=== PATIENT | female | born 1960 | race Caucasian/White ===

== ENCOUNTER → 2017-11-11 01:00 | Outpatient (CLI) | payer OTHER, SELFPAY ==
--- NOTE | 2017-11-11 08:40 | DI.REPORT_ITS ---
SYMPTOM/DIAGNOSIS: [facility] BREAST FINDING N64.9, 6-MO F/U ABN MAMMO R92.8 DIAGNOSTIC MAMMOGRAM, CRANIOCAUDAD AND MEDIAL LATERAL IMAGES RIGHT BREAST: Mammograms were interpreted according to the usual protocol including computer analysis with CAD system, tomosynthesis and C view imaging. Craniocaudad and medial lateral images of the right breast were obtained today and reveal heterogeneous radiodensity in the subareolar portion of the right breast. Again noted is an asymmetric density in the medial subareolar portion of the breast. There are no suspicious calcifications. At ultrasound, no cyst or mass is identified. SUMMARY: No evidence of malignancy, Category 2, yearly screening mammography is recommended. Breast density category B MQSA ASSESSMENT OF FINDINGS: Negative with benign findings. Category 2. Patient will receive a letter notifying them of these results. BI-RADS category B. There are scattered areas of fibroglandular density.
== END ==
PROVIDERS: PCP Nurse Practitioner Family; Visit Provider Nurse Practitioner Family
DX: Z12.31 Encounter for screening mammogram for malignant neoplasm of breast (principal); R92.8 Other abnormal and inconclusive findings on diagnostic imaging of breast; N63.41 Unspecified lump in right breast, subareolar
CPT/HCPCS: 76642; 77061; 77065; G0279

== ENCOUNTER 2021-04-18 02:29 | Outpatient (CLI) | payer OTHER, SELFPAY | END 2021-04-18 02:49 | PROVIDERS: PCP Nurse Practitioner Family; Visit Provider Nurse Practitioner ==

== ENCOUNTER 2021-06-03 00:48 | Outpatient (CLI) | payer SELFPAY ==
--- NOTE | 2021-06-03 | DI.MAMMO_ITS ---
Exam(s) MAMMO SCREENING EXAM: MAMMO SCREENING CLINICAL HISTORY: SCREENING, Z12.39 TECHNIQUE: Mammograms were interpreted according to the usual protocol including computer analysis w [employer] CAD system, tomosynthesis and C-view imaging. COMPARISON: 2014 and 2017 FINDINGS: The breasts are composed of heterogeneously dense fibroglandular densities, Breast Density category C . No suspicious masses or suspicious microcalcifications are seen. Asymmetric tissue is again noted in the medial right breast. No skin thickening or abnormal axillary lymph nodes are seen. There has been no significant change from prior exams. IMPRESSION: BI-RADS Category 1, Negative mammogram. Yearly screening mammography is recommended. Breast Density Category C, heterogeneously Dense. The mammogram demonstrates the patient's breast tissue is dense. Dense breast tissue is very common a nd is not abnormal but dense breast tissue can make it harder to find cancer on a mammogram. Also, de nse breast tissue may increase breast cancer risk. This information about the result of the mammogram report was provided to the patient to raise their awareness. Use this report when you speak with the patient about their risks for breast cancer, which includes their family history. At that time, you may recommend additional screening tests (Ultrasound or MRI) as they might be useful based on their r isk. A negative radiographic report should not delay biopsy if a dominant or clinically suspicious mass is present. Up to ten percent of cancers are not identified on mammography. A negative report may reinforce clinical impression. Adenosis and dense breasts may obscure an underlying neoplasm. False positive reports average 6 to 10%.
== END 2021-06-03 01:08 ==
LOC: DI 00:49
PROVIDERS: PCP Nurse Practitioner Family; Visit Provider Nurse Practitioner
DX: Z12.31 Encounter for screening mammogram for malignant neoplasm of breast (principal)
CPT/HCPCS: 77063; 77067

== ENCOUNTER 2022-03-21 18:28 | Outpatient (REF) | payer OTHER, SELFPAY ==
[2022-03-21 19:20] LABS: Hemoglobin A1C 5.6 % (<5.7)
[2022-03-21 19:22] LABS: Calculated LDL 77 mg/dL (<100); Cholesterol 149 mg/dL (<200); HDL Cholesterol 42 mg/dL (40-60); Triglyceride 153 mg/dL (<150)
[2022-03-24 10:26] LABS: Hepatitis C Ab w Rflx HCV PCR Negative (Negative)
== END 2022-03-21 18:29 | disposition home or self-care (01) ==
LOC: NCHCN 18:28
PROVIDERS: PCP Nurse Practitioner Family; Visit Provider Family Medicine
DX: Z00.00 Encounter for general adult medical examination without abnormal findings (principal); Z13.1 Encounter for screening for diabetes mellitus; Z11.59 Encounter for screening for other viral diseases; Z13.220 Encounter for screening for lipoid disorders
CPT/HCPCS: 80061; 86803; 83036

== ENCOUNTER 2023-03-26 16:28 | Outpatient (REF) | payer BC, SELFPAY ==
[2023-03-26 18:37] LABS: Hemoglobin A1C 5.4 % (<5.7)
[2023-03-26 18:54] LABS: Anion Gap 8.1 mmol/L (3-11); BUN 9 mg/dL (7-18); CO2 27.9 mmol/L (21.0-32.0); CREATININE 0.8 mg/dL (0.55-1.02); Calcium 9.6 mg/dL (8.5-10.1); Chloride 104 mmol/L (98-107); Estimated GFR 83.26 (mL/min/1.73m2); Glucose 115 mg/dL (74-106); Sodium 140 mmol/L (136-145)
== END 2023-03-26 16:29 | disposition home or self-care (01) ==
LOC: NCHCN 16:28
PROVIDERS: PCP Nurse Practitioner Family; Visit Provider Nurse Practitioner Family
DX: R73.9 Hyperglycemia, unspecified (principal)
CPT/HCPCS: 80048; 83036

== ENCOUNTER → 2023-05-28 00:21 | Outpatient (CLI) | payer BC, SELFPAY ==
--- NOTE | 2023-05-28 | DI.DEXA_ITS ---
Exam(s) XR DEXA BONE DENSITY W/WO KILLIAN EXAM: XR DEXA BONE DENSITY W/WO KILLIAN CLINICAL HISTORY: At increased risk of osteoporosis, Z91.89 TECHNIQUE: COMPARISON: No exams were available for comparison FINDINGS: Lateral Spine Image: Unremarkable. No compression deformities identified. Left hip: Total T-Score: -1.7 Total Z-Score: -0.6 T- and Z-scores: Findings are consistent with osteopenia. There is no evidence of osteoporosis. Lumbar Spine: Total T-Score: -0.7 Total Z-Score: 0.9 T- and Z-scores: Within normal limits. IMPRESSION: No evidence of osteoporosis.
--- NOTE | 2023-05-28 15:24 | DI.CTLCSR_ITS ---
Exam(s) CT CHEST LUNG CANCER SCREEN EXAM: CT CHEST LUNG CANCER SCREEN CLINICAL HISTORY: Tobacco dependence, nicotine dependence, F17.201 TECHNIQUE: Imaging Protocol: Axial computed tomography images with coronal and sagittal reformatted images were created and reviewed COMPARISON: CT CHEST WITH CONTRAST from 06/01/2009 CT ABD PELVIS WITH CONTRAST from 06/01/2015 CT CHEST WITH CONTRAST from 07/09/2015 CR XR DEXA BONE DENSITY W/WO KILLIAN from 05/28/2023 FINDINGS: Tracheobronchial tree: Patent where visualized. Pulmonary parenchyma: Emphysematous changes are present in the lungs. Dependent atelectatic changes are seen in the lung bases. No focal consolidating infiltrates are present. Lung Nodules: None. Mediastinum and Rosy: No dominant adenopathy or fluid collection. The esophagus is unremarkable. Thyroid gland: Unremarkable. Lymph nodes: Unremarkable. Pleura: No effusion or pneumothorax. Heart: The heart is not dilated. Coronary artery calcifications are present. No pericardial effusion . Aorta: Thoracic aorta non-dilated.Atherosclerotic calcification is present. Upper abdomen: Unremarkable. Soft Tissues: Unremarkable. Bones: There is diffuse mottling of the bones suspicious for metastatic disease. IMPRESSION: 1. No pulmonary nodules. 2. Diffuse sclerotic modeling of the bones suspicious for metastatic disease. Bone scan should be obt ained for further evaluation. 3. Emphysematous changes in the lungs. 4. Findings were discussed with NEYDA Casanova at 4:30 p.m. on 05/28/2023. Lung RADS Cat 1S - Negative: No nodules and definitely benign nodules. Other: Clinically Significant or Potentially Clinically Significant Findings (non lung cancer) Lung-RADS 1.0 CATEGORIES: Category 0 - Prior chest CT exam(s) being located for comparison. Category 1 - Annual screening in 12 months. No nodules or definitely benign nodules. Category 2 - Annual screening in 12 months. Benign appearance. Nodules with low likelihood of becomin g active cancer. Category 3 - 6-month follow-up. Probably benign. Short-term follow-up suggested. Nodules with low lik elihood of becoming active cancer. Category 4A - 3-month follow-up and CT/PET if >8 mm in size. Suspicious finding. Findings which requi re additional testing. Category 4B - Findings which require additional testing and tissue sampling. Suspicious finding. Category 4X - Category 3 or 4 nodules with additional features or imaging findings that increases the suspicion of malignancy. Modifier S- Potentially clinically significant finding. (Non lung cancer) Unexpected findings RADIATION DOSE DELIVERED: 66.7mGy.cm Total DLP 66.7mGy.cmTotal DLP DATA REPOSITORY: All CT scans at this facility are submitted to the National Radiology Data Registry (NRDR) Dose Index Registry (DIR) with the [employer] (A[employer]). RADIATION OPTIMIZATION: All CT scans at this facility use at least one of these dose optimization te chniques: automated exposure control; mA and/or kV adjustment per patient size (includes targeted exa ms where dose is matched to clinical indication); or iterative reconstruction.
== END ==
PROVIDERS: PCP Nurse Practitioner Family; Visit Provider Nurse Practitioner Family
DX: Z13.820 Encounter for screening for osteoporosis (principal); Z12.2 Encounter for screening for malignant neoplasm of respiratory organs; F17.210 Nicotine dependence, cigarettes, uncomplicated; R91.8 Other nonspecific abnormal finding of lung field
CPT/HCPCS: 71271; 77080; J0665

== ENCOUNTER → 2023-06-17 02:49 | Outpatient (CLI) | payer BC, SELFPAY ==
--- NOTE | 2023-06-17 | DI.NM_ITS ---
Exam(s) NM BONE SCAN WHOLE BODY GRP EXAM: NM BONE SCAN WHOLE BODY GRP CLINICAL HISTORY: R93.89 ABN findings on DI other specified body structure,F17.211 Nicotine. TECHNIQUE: Injected Dose: 25.5 mCi Tc-99m MDP Delayed Images: 2-3 hours. COMPARISON: CT CT CHEST LUNG CANCER SCREEN from 05/28/2023 FINDINGS: There is normal skeletal in the entire skeleton. No obvious abnormal focal areas of radiopharmaceuti leoncio uptake. IMPRESSION: 1. No abnormal to suggest metastatic. 2. In reviewing the abnormal appearance of the bones on the recent chest CT scan of 05/28/2023, if t here is a suspicion for multiple myeloma then MRI of the spinal column would be recommended. Reason for this is that myeloma can often exhibit false negative study on nuclear medicine imaging DATA REPOSITORY:
== END ==
PROVIDERS: PCP Nurse Practitioner Family; Visit Provider Nurse Practitioner Family
DX: R93.89 Abnormal findings on diagnostic imaging of other specified body structures (principal); F17.211 Nicotine dependence, cigarettes, in remission
CPT/HCPCS: 78306

== ENCOUNTER → 2023-06-23 02:52 | Outpatient (CLI) | payer BC, SELFPAY ==
--- NOTE | 2023-06-23 | DI.MAMMO_ITS ---
Exam(s) MAMMO SCREENING EXAM: MAMMO SCREENING CLINICAL HISTORY: SCREENING MAMMO FOR BREAST CANCER Z12.31. TECHNIQUE: Bilateral full field digital CC and MLO mammographic images were obtained with 3D tomosyn thesis and utilizing computer aided detection (CAD). COMPARISON: Prior mammograms were reviewed. FINDINGS: There has been no significant change in the appearance and distribution of the fibroglandular tissue. There are no CAD designations. There are no new spiculated masses nor malignant appearing microcalcification groups. There is no significant architectural distortion nor skin thickening-retraction. IMPRESSION: No radiographic evidence of malignancy. BI-RADS Category 1 - Negative Breast Density - Category C - Heterogeneously dense Breast density Category C or D implies that the patient has dense breast tissue. Dense breast tissue can make it harder to find cancer on a mammogram. Dense breast tissue is also associated with an incr eased risk of breast cancer. This information about the result of the mammogram report was provided to the patient to raise their awareness. Use this report when you speak with the patient about their risks for breast cancer, which includes their family history. At that time, you may recommend additional screening tests (Ultrasoun d or MRI) as these tests may add significant information. A negative radiographic report should not delay biopsy if a dominant or clinically suspicious mass is present. Up to ten percent of cancers are not identified on mammography. A negative report may reinforce clinical impression. Adenosis and dense breasts may obscure an underlying neoplasm. False positive reports average 6 to 10%. Patient will receive a letter notifying them of these results.
== END ==
PROVIDERS: PCP Nurse Practitioner Family; Visit Provider Nurse Practitioner Family
DX: Z12.31 Encounter for screening mammogram for malignant neoplasm of breast (principal)
CPT/HCPCS: 77063; 77067

== ENCOUNTER 2023-06-24 05:10 | Outpatient (CLI) | payer BC, SELFPAY ==
[2023-06-25 10:09] LABS: Kappa Free Light Chain 1.87 mg/dL (0.33-1.94); Lambda Free Light Chain 2.51 mg/dL (0.57-2.63)
[2023-06-25 15:16] LABS: Immunotyping, Serum (See Note); Total Protein 6.6 g/dL (6.3-8.2)
== END 2023-06-24 05:11 | disposition home or self-care (01) ==
LOC: LBO 05:10
PROVIDERS: PCP Nurse Practitioner Family; Visit Provider Nurse Practitioner Family
DX: R73.9 Hyperglycemia, unspecified (principal)
CPT/HCPCS: 36415; 83883; 84155; 84165; 86320

== ENCOUNTER 2023-07-29 19:42 | Outpatient (REF) | payer BC, SELFPAY ==
[2023-07-29 20:33] LABS: ALT 24 U/L (14-59); AST 19 U/L (15-37); Albumin 3.6 g/dL (3.4-5.0); Alkaline Phosphatase 97 U/L (46-116); Anion Gap 10.7 mmol/L (3-11); BUN 8 mg/dL (7-18); Bilirubin, Total 0.3 mg/dL (0.2-1.0); CO2 24.3 mmol/L (21.0-32.0); CREATININE 0.8 mg/dL (0.55-1.02); Chloride 105 mmol/L (98-107); Estimated GFR 82.74 (mL/min/1.73m2); Glucose 104 mg/dL (74-106); Potassium 3.9 mmol/L (3.5-5.1); Sodium 140 mmol/L (136-145); Total Protein 6.9 g/dL (6.4-8.2)
== END 2023-07-29 19:43 | disposition home or self-care (01) ==
LOC: NCHCN 19:42
PROVIDERS: PCP Nurse Practitioner Family; Visit Provider Nurse Practitioner Family
DX: R93.89 Abnormal findings on diagnostic imaging of other specified body structures (principal)
CPT/HCPCS: 80053

== ENCOUNTER 2023-08-24 07:33 | Day surgery (SDC) | payer BC, SELFPAY ==
--- NOTE | 2023-08-23 13:56 | W.PM.DSUDISC ---
Date of service: 08/24/23 Time of Service: 10:51 Discharge Plan Disposition Patient Disposition: Home Condition: Good Discharge Details Reason For Visit: screening colonoscopy Attending Provider: Oj Higgins Primary Care Provider: KELLEY GALVAN Home Meds and New Rx's Prescriptions: Continued ondansetron HCl 8 mg tablet 8 mg PO Q12H PRN (Reason: nausea and vomiting) Qty: 4 0RF aspirin 81 mg tablet,chewable 81 mg PO DAILY acetaminophen 325 MG tablet 650 mg PO .Q5H PRN Discharge Instructions Instructions: Colorectal Polyps (GEN) Additional Instructions: Kayla, we were able to complete your colonoscopy today without much difficulty. I found and removed a medium size polyp. There were 2 other areas that were quite small, and I suspect might be early polyps. I removed these as well. It would take about a week or 2 for me to get the results of all the pathology report, once I have that information, I will be in touch with any other recommendations. In the meantime, if you have any questions at all, please do not hesitate to call or ask at any time. 1. If tolerated, consume a soft, low fiber diet for 1-2 days. 2[address] Do not drive, drink alcohol, operate machinery, make critical decisions, or do activities that require coordination or balance for 24 hours. 3. Because air was put into your colon during the procedure, expelling air from your rectum (passing gas or farting) is normal. 4. You may not have a bowel movement for 1-3 days because of the colonoscopy prep. This is normal. 5. Go directly to the emergency room if you notice any of the following: Develop chills (warm to touch), or if you have a thermometer and your temperature is above 101 Difficulty breathing or difficultly swallowing Persistent vomiting Severe abdominal pain, other than gas cramps Severe chest pain Black, tarry stools Any bleeding ? exceeding one tablespoon 6. Call your physician if the site where your intravenous was started becomes red, swollen, painful, and warm to touch. 7. Your physician has reviewed your pre-procedure medications. Please continue to take those medications as previously ordered. You will be given specific information/education regarding any changes to your medications before leaving. Activity:: Activity as Tolerated Diet:: As Tolerated Discharge Orders Discharge Orders: Discharge Order (Routine); Ordered 08/23/23 Ordered By: Oj Higgins DS: Diagnosis Discharge Diagnosis (1) Encounter for screening colonoscopy: Status: Acute Asessment and Plan: Follow-up on polypectomy results
--- NOTE | 2023-08-23 13:57 | COLE_ITS ---
Date of service: 08/24/23 Time of Service: 10:52 Colonoscopy Report Date of procedure: 08/24/23 Pre-op diagnosis general: screening colonoscopy Post-op diagnosis procedure note: other (Colon polyps) Procedure: colonoscopy with polypectomy Surgeon: Oj Higgins Anesthesia Type: General:No Airway Estimated blood loss (mL): 5 Pathology: other (0.25 cm polyps at 35 cm x 2, 0.5 cm polyp at 25 cm) Complications: None Disposition: same day Indications: Ashley is a 63 year old woman who needs her next screening colonoscopy Prep: Miralax/Dulcolax Procedure Start Time: 10:07 Procedure End Time: 10:38 Retraction Time: 10 Findings: 0.25 cm polyps at 35 cm x 2, 0.5 cm polyp at 25 cm Procedure Description: After the induction of anesthesia, and with the patient in left lateral decubitus position, I began by performing an external anorectal exam.? Perineum and skin were normal, as was the anal verge.?? Next, I performed a digital rectal exam.? I did not appreciate any abnormal findings.? Next, I advanced a colonoscope into the rectal vault.? I performed retroflexion.? This appeared normal.? Using insufflation, I then advanced the colonoscope beyond the rectal folds and into the sigmoid colon before advancing towards the cecum.? Sigmoid colon was a little difficult to navigate, and did require repositioning, but with some gentle abdominal pressure, we are able to advance through this proceeding to the right side.? The scope was noted to be in the cecum by identification of the ileocecal valve.? I then began withdrawing the colonoscope using repeated irrigation as necessary for full evaluation of the colonic mucosa. Around 35 cm from the anus were 2 areas that appeared slightly polypoid. Narrowband imaging was used to assist with analysis. These were removed with cold forceps without any issue. Around 25 cm from the anus was more obvious polyp. It was about 0.5 cm, slightly pedunculated. This was removed with cold forceps as well. Once the scope was withdrawn to the level of the rectum, great care was taken to examine portions of the rectal folds.? Finally, the scope was withdrawn and the patient was brought to the same-day surgery recovery unit as the anesthetic wore off. ?The findings and instructions were shared with the patient prior to discharge. [place] Bowel Prep [place] Bowel Prep Right Colon: 2 Left Colon: 2 Transverse Colon: 3 Total Score: 7
[2023-08-24 07:45] VITALS: BP 113/61; PULSE 83; RESP 16; TEMP 36.2; O2SAT 97
[2023-08-24] MEDS: Lactated Ringers 1,000 ML 80 ML IV (08:03)
--- NOTE | 2023-08-24 08:52 | W.ANESPRE ---
General Info Date of Service Date Performed: 08/24/23 Height: 5 ft 3.5 in Weight: 55.5 kg Body Mass Index (BMI): 21.3 Surgical Procedure: Operation Date: 08/24/23 09:05 Proposed Procedure Side Surgeon kun Higgins MD Meds Allergies and Home Medications Allergies Allergy/AdvReac Type Severity Reaction Status Date / Time ibuprofen Allergy Intermediate Hives Verified 08/24/23 07:48 NSAIDS (Non-Steroidal Allergy Intermediate Hives Verified 08/24/23 07:48 Anti-Inflamma oxycodone HCl [From Percocet] AdvReac Intermediate Nausea Verified 08/24/23 07:48 ciprofloxacin [From Cipro] AdvReac Mild itching Verified 08/24/23 07:48 and burning with IV Infusion morphine AdvReac Mild Nausea Verified 08/24/23 07:48 Home Medication Medication Instructions Recorded acetaminophen 325 mg tablet 650 mg PO .Q5H PRN 07/09/15 aspirin 81 mg chewable tablet 81 mg PO DAILY 06/19/23 ondansetron HCl 8 mg tablet 8 mg PO Q12H PRN nausea and 08/06/23 vomiting #4 tabs Current Visit Medications: Current Medications Generic Name Dose Route Start Last Admin Trade Name Freq PRN Reason Stop Dose Admin Hyoscyamine Sulfate 0.125 mg 08/23/23 13:58 Hyoscyamine 0.125 Mg Sl/Oral/Chew SL 09/22/23 13:57 DIRECTED PRN Ringer's Solution 1,000 mls @ 80 mls/hr 08/24/23 06:00 08/24/23 08:03 IV 08/24/23 23:59 80 mls/hr INFUSION JENNIFER Administration IV Miscellaneous Supplies 1 each 08/24/23 06:00 Iv Access IV 08/24/23 23:59 DIRECTED JENNIFER Ondansetron HCl 4 mg 08/23/23 13:58 Ondansetron 4 Mg/2 Ml Vial IVP 09/22/23 13:57 Q4H PRN PRN Nausea / Vomiting Sodium Chloride 0 ml 08/24/23 06:00 Normal Saline Flush 10 Ml Syr IV 08/24/23 23:59 PRN PRN Sodium Chloride 0 ml 08/24/23 06:00 Normal Saline 10 Ml Vial IJ 08/24/23 23:59 DIRECTED PRN Sterile Water 0 ml 08/24/23 06:00 Water,Injection,Sterile 10 Ml Vial IJ 08/24/23 23:59 DIRECTED PRN PFSH Active Problems Active Problems: Problem Status Onset Code Encounter for screening colonoscopy Z12.11 Adenomatous colon polyp D12.6 H/O surgical procedure 02/01/14 Z98.89 Incisional hernia 02/01/14 K43.2 Medical History Medical History Hyperglycemia Colonic polyp Abnormal breast finding Thoracic back pain Tobacco use COPD (chronic obstructive pulmonary disease) Incisional hernia Surgical menopause Adenomatous polyp Shoulder pain Pleuritic chest pain Thoracic outlet syndrome Rib pain on right side Surgical History Surgical History rib resection r/t to thoracic outlet syndrome nerve pain relief Abdominal hysterectomy Hernia Repair, Incisional Cholecystectomy Appendectomy Aorto-femoral bypass 2012 Tobacco Smoking/Tobacco Use Status: Former Tobacco Use Alcohol Alcohol Intake: never Substance Use Substance use: Never Substance use type: does not use Vital Signs and Lab Results Vital Signs Most Recent Vital Signs in EMR: Most Recent Vital Signs Temp Pulse Resp BP Pulse Ox 36.2 C L 83 16 113/61 97 08/24/23 07:45 08/24/23 07:45 08/24/23 07:45 08/24/23 07:45 08/24/23 07:45 Lab Results Blood Type / Crossmatch: No Data to Display Complete Blood Count: No Data to Display Complete Metabolic Panel: Sodium 140 mmol/L (136-145) 07/29/23 13:45 Potassium 3.9 mmol/L (3.5-5.1) 07/29/23 13:45 Chloride 105 mmol/L (98-107) 07/29/23 13:45 Carbon Dioxide 24.3 mmol/L (21.0-32.0) 07/29/23 13:45 BUN 8 mg/dL (7-18) 07/29/23 13:45 Creatinine 0.8 mg/dL (0.55-1.02) 07/29/23 13:45 Est GFR (CKD-EPI 2020) 82.74 (mL/min/1.73m2) 07/29/23 13:45 Calcium 9.0 mg/dL (8.5-10.1) 07/29/23 13:45 Albumin 3.6 g/dL (3.4-5.0) 07/29/23 13:45 Glucose 104 mg/dL (74-106) 07/29/23 13:45 Liver Function Panel: Alanine Aminotransferase (ALT/SGPT) 24 U/L (14-59) 07/29/23 13:45 Aspartate Amino Transf (AST/SGOT) 19 U/L (15-37) 07/29/23 13:45 Coagulation Panel: No Data to Display Cardiac Panel: No Data to Display Arterial Blood Gas: No Data to Display Venous Blood Gas: No Data to Display Pancreas Panel: No Data to Display Thyroid Panel: No Data to Display Infectious Disease: No Data to Display Blood Cultures: No Data to Display Toxicology Panel: No Data to Display Imaging and Studies Imaging and Studies Study information below may be from another EMR and interpreted by another provider. Please see original notes in EMR for more complete details. Stress Test Summary: Patient Name: JT GRAYSON Unit #: [id number] Loc: Ordering Provider: COLLEEN ALFARO Status: [facility] Primary Care Provider: UNKNOWN, UNKNOWN Date of Exam: 10/11/12 Sex: F : 1960 Age: 52 Exam(s): [id number] NM:MPI Resting & Stress GRP Department of Nuclear Medicine SPECT Nuclear Cardiology Report CLINICAL DIAGNOSIS: preop, hx of smoking, chest palpitations, atherosclerosis of mcgrath arteries of the extremities with intermittent claudication Exercise: Lexiscan: x Dose: 0.4mgm REST: 11.8 mCi 99e-Ti-Jhuouvdiw IV was administered at 9:00 AM on 10/11/12 in accordance with established rest protocol procedures. Images of the heart were obtained with SPECT reconstruction. STRESS: 37.1 mCi 77y-Xj-Hqjrjnani IV was administered at 10:40 AM on 10/11/12 in accordance with established stress protocol procedures. Images of the heart were obtained with SPECT reconstruction. INTERPRETATION: View Normal Transient Mixed Fixed Perfusion Defect Defect Defect Short Swanton x Vertical Long Swanton x Horizontal Long Swanton x EJECTION FRACTION: 67% GATED WALL MOTION: CONCLUSION: Negative ischemia. Normal LV function. TECH: CC: COLLEEN ALFARO Dictated By: BART COON 400 <Electronically signed by EMILY VILLALTA MD> 10/15/12 1252 <Electronically signed by MURTAZA COON > 10/25/12 0885 Transcribed By: THOM FAUST 10/12/12 5606 Technologist: This is privileged, confidential information intended only for the provider named. Any use or distribution by any person other than this provider is strictly prohibited. If you receive this report in error, please notify us immediately at [phone] and return the original report to us at the address above. Thank-you. Anesthesia Assessment and Plan Anesthesia History Personal History: No History of Anesthesia Complications Family History: No Family History of Anesthesia Complications Exercise Tolerance Exercise Tolerance: Metabolic Equivalents>4 Pertinent Negatives Pertinent Negatives: No Symptoms of GERD Cardiac & Pulmonary Exam Cardiac Exam: Normal S1/S2 Heart Sounds Pulmonary Exam: Clear Bilateral Breath Sounds Implantable Cardiac Device Does patient have a Pacemaker or an ICD?: No Airway Exam Known Difficult Airway: No Mallampati Class: 2 Mouth Opening: Normal (> 3cm) Thyromental Distance: Greater than 3 cm Neck Range of Motion: Full ROM Neck Circumference: Normal Teeth Condition: Removable Dentures/Plates Upper and Removable Dentures/Plates Lower ASA Classification ASA Score: ASA 3 Emergency Case?: No NPO Status NPO Status: NPO Clears >2 hours, Solids >8 hours Anesthesia Plan Resuscitation Status: Full Code Anesthesia Technique: General Anesthesia Airway Planned: Natural Airway Monitors Used: Standard Monitors
[2023-08-24 09:17] VITALS: BMI 21.3
--- NOTE | 2023-08-24 10:34 | BOWEL_PTH ---
PATIENT: Ashley Kee LOC: [facility] U#:[id number] AGE/SX: 63/F ROOM: RE08/24/[address]: Oj Higgins MD : 1960 BED: DIS: 08/24/2023 SPEC #: [id number] RECD: 08/24/23 13:07 STATUS: LATANYA RE #: [id number] RIMMA: 08/24/23 10:[address]: Oj Higgins DEPT: Surgical Specimen RECD BY: Caridad Horta ENTERED: 08/24/23 13:09 SP TYPE: Bowel OTHR DR: KELLEY GALVAN, PANTS BUSHELER Tissues: 1 - BIOPSY BOWEL 2 - BIOPSY BOWEL Procedures: GROSS AND MICRO LEVEL 4 Comments: [id number]
[2023-08-24 10:46] VITALS: BP 135/62; PULSE 65; RESP 22; TEMP 36.3; O2SAT 95
[2023-08-24 11:13] VITALS: BP 131/63; PULSE 62; RESP 16; TEMP 36.3; O2SAT 97
--- NOTE | 2023-08-24 11:13 | W.ANESPOSTOP ---
Postoperative Evaluation Date, Time and Location Date Performed: 08/24/23 Time Performed: 11:13 Patient Location: Day Surgery Unit Vital Signs Most Recent Imported Vital Signs: Most Recent Vital Signs Temp Pulse Resp BP Pulse Ox 36.3 C L 65 22 135/62 95 08/24/23 10:46 08/24/23 10:46 08/24/23 10:46 08/24/23 10:46 08/24/23 10:46 Pain Score Most Recent Pain Score: Most Recent Pain Score Pain Level 0 08/24/23 10:46 Assessment Mental Status: Awake (Alert & Oriented to Patient Baseline) Airway and Respiratory Function: Patent airway with normal (patient baseline) respiratory exam Cardiovascular Function: Hemodynamically Stable Hydration Status: Adequately Hydrated Nausea & Vomiting: No Nausea or Vomiting Pain: Pt. Denies Any Pain Peripheral Nerve Block: Patient did not receive a nerve block
== END 2023-08-24 11:28 | disposition home or self-care (01) ==
LOC: SUR 07:33
PROVIDERS: PCP Nurse Practitioner Family; Visit Provider Surgery
PROC: 0DJD8ZZ Inspection of Lower Intestinal Tract, Via Natural or Artificial Opening Endoscopic (ICD-10-PCS; CPT 45378; principal; 2023-08-24 09:00)
DX: Z12.11 Encounter for screening for malignant neoplasm of colon (principal); D12.5 Benign neoplasm of sigmoid colon
CPT/HCPCS: 45380; 88305; J2704

== ENCOUNTER 2023-08-25 13:09 | Outpatient (REF) | payer BC, SELFPAY ==
[2023-08-25 15:32] LABS: Abs Immature Grans 0.03 10^3/uL (0.0-0.06); Absolute Basophil Count 0.03 10^3/uL (0.0-0.2); Absolute Eosinophil Count 0.03 10^3/uL (0.0-0.7); Absolute Monocyte Count 0.44 10^3/uL (0.1-0.8); Absolute Neutrophil Count 5.76 10^3/uL (1.2-6.7); Basophils % 0.3 %; Eosinophils % 0.3 %; HCT 44.4 % (36.0-46.0); HGB 14.9 g/dL (11.2-15.7); Immature Grans % 0.3 %; Lymphocytes % 35.8 %; MCH 30.2 pg (27.0-33.0); MCHC 33.6 % (32.0-36.0); MCV 90 fL (80-95); MPV 8.9 fL (8.0-11.0); Monocytes % 4.5 %; Neutrophils % 58.8 %; Platelet Count 259 10^3/uL (130-400); RBC 4.93 10^6/uL (3.93-5.22); RDW 13.2 % (11.7-14.6); RDW-SD 42.9 fL; WBC 9.79 10^3/uL (4.4-10.8)
== END 2023-08-25 13:10 | disposition home or self-care (01) ==
LOC: NCHCN 13:09
PROVIDERS: PCP Nurse Practitioner Family; Visit Provider Nurse Practitioner Family
DX: Z00.00 Encounter for general adult medical examination without abnormal findings (principal)
CPT/HCPCS: 85025

== ENCOUNTER 2024-02-29 15:41 | Outpatient (CLI) | payer BC, SELFPAY ==
--- NOTE | 2024-02-29 15:30 | DI.RAD_ITS ---
Exam(s) XR CHEST 2V PA LATERAL EXAM: XR CHEST 2V PA LATERAL CLINICAL HISTORY: R05.3 Cough persistent, PT s/p AortoBiFem bypass graft requiring post op TECHNIQUE: 2D digital imaging was performed of the chest. Two images were obtained. PA and lateral views were obtained. COMPARISON: CT CT CHEST/ABD/PEL W from 08/18/2023 FINDINGS: MEDIASTINUM: Normal. HEART: Normal. PULMONARY VASCULATURE: Normal. LUNGS: There is an infiltrate in the left lower lobe. The right lung is clear. PLEURAL SPACE: There is a small to moderate size left pleural effusion. No right pleural effusion. No pneumothorax. BONE:There are displaced fractures involving the posterior lateral aspects of the left 7th and 8th ri bs. There has been a prior resection of the distal aspect of the right clavicle. OTHER FINDINGS:There are surgical clips seen in the right axilla. Skin kim are seen in the left upper abdomen. IMPRESSION: 1. Left basilar infiltrate/atelectasis and left pleural effusion. 2. Left 7th and 8th rib fractures. 3. No pneumothorax. DATA REPOSITORY: RADIATION DOSE DELIVERED:
--- OUTSIDE RECORDS SUMMARY | 2024-02-29 15:47 | XMS_ITS | Encounter Summary ---
Author Organization [facility] Address [address] [place] [id number] Care Team Providers Care Numerical Control Lathe Operator Name Role Phone Faizan Bhakta MD Primary Care Provider Unav ailable Encounter Details Date Type Department Care Team (Late st Contact Info) Description 11/08/2015 Results Only Vascular Surgery and Endovascular Therapy - [address] [id number] Tony Garza MD [address] [place] [address], [address] [place] [phone] Social History Tobacco Use Types Packs/Day Years Used Date Smoking Tobacco: Former Cigarettes 0.2 20 0 10/30/1992 - 10/30/2012 Comments:quit date was r 2012 Alcohol Use Standard Drinks/Week Comments Yes 0 (1 standard drink = 0.6 oz pur e alcohol) Once or twice a year Comments Unknown Sex and Gender Information Value Date Recorded Sex Assigned at Not on file Legal Sex Female 18:15 EST Gender Identity Not on file Sexual Orientation Not on file documented as of this encounter Functional Status * Because of a physical, mental, or emotional condition, does this person have difficulty doing errands alone such as visiting a doctor's office or shopping? Answer Date of Assessment Author No 11/08/2015 13:33 EDT documented as of this encounter Mental Status * Because of a physical, mental, or emotional condition, does this person have serious difficulty concentrating, remembering, or making decisions? Answer Entry Date Author No 11/08/2015 13:33 EDT Eduar Ho, RN documented in this encounter Plan of Treatment Not on file documented as of this encounter Procedures Procedure Name Priority Date/Time Associated Diagnosis Comments TYPE AND SCREEN Routine 11/08/2015 15:05 EDT documented in this encounter Results * TYPE AND SCREEN (11/08/2015 15:05 EDT) Antibody Screen Negative [facility] Specimen Expires: 11/22/2015 @ 23:59 [facility] ABO B [facility] Rh Factor Negative [facility] 11/08/2015 15:0 5 EDT us Tony Garza MD BLOOD BANK TESTS Final Re sult [facility] [address] [place] [address] documented in this encounter Visit Diagnoses Not on filedocumented in this encounter Care Teams Numerical Control Lathe Operator Relationship Specialty Start Date End Date Faizan Bhakta MD PCP - General 08/18/13 documented as of this encounter
--- OUTSIDE RECORDS SUMMARY | 2024-02-29 15:47 | XMS_ITS | Encounter Summary ---
Author Organization [facility] Address [address] [place] [address] Care Team Providers Care Mechanical Designer Name Role Phone Faizan Bhakta MD Primary Care Provider Unav ailable Encounter Details Date Type Department Care Team (Late st Contact Info) Description 09/11/2015 13:56 EDT - 09/11/2015 23:59 EDT Hospital Encounter [facility] [address] [place] [address] Cesar Kingston MD [address] [place] [id number] Discharge Disposition: Home or Self Care Social History Tobacco Use Types Packs/Day Years Used Date Smoking Tobacco: Former Cigarettes 0.2 20 0 10/30/1992 - 10/30/2012 Comments:Smoking 4-5 cigaret vicky daily Alcohol Use Standard Drinks/Week Comments Yes 0 (1 standard drink = 0.6 oz pur e alcohol) Once or twice a year Comments Unknown Sex and Gender Information Value Date Recorded Sex Assigned at Not on file Legal Sex Female 18:15 EST Gender Identity Not on file Sexual Orientation Not on file documented as of this encounter Mental Status * Because of a physical, mental, or emotional condition, do you have serious difficulty concentrating, remembering, or making decisions? (5 years old or older) Answer Entry Date Author Yes 11/02/2012 4:00 EDT Papito Ho RN documented in this encounter Discharge Diagnoses Diagnosis Z01.89 Encounter for other specified special examinations-Z01.89[ICD-10-CM] documented in this encounter Medications at Time of Discharge acetaminophen (TYLENOL) 500 mg tablet Take 1-2 Tabs by mouth every 6 hours as needed for Pain. 11/05/2012 aspirin 81 mg EC tablet Take 1 Tab by mouth daily. 30 Tab 0 10/18/2012 documented as of this encounter Discharge Disposition Disposition Code Departure Means Destination Home or Self [facility] documented in this encounter Plan of Treatment Not on file documented as of this encounter Visit Diagnoses Not on filedocumented in this encounter Care Teams Mechanical Designer Relationship Specialty Start Date End Date Faizan Bhakta MD PCP - General 08/18/13 documented as of this encounter
--- OUTSIDE RECORDS SUMMARY | 2024-02-29 15:47 | XMS_ITS | Encounter Summary ---
Author Organization [facility] Address [address] [place] [address] Care Team Providers Care Log Sorter Name Role Phone Faizan Bhakta MD Primary Care Provider Unav ailable Encounter Details Date Type Department Care Team (Late st Contact Info) Description 03/22/2022 Lab Requisition [facility] Pathology & Laboratory Medicine - [address] [address] Outr Resulting Lab, Provider Social History Tobacco Use Types Packs/Day Years Used Date Smoking Tobacco: Former Cigarettes 0.2 20 0 10/30/1992 - 10/30/2012 Comments:quit date was 2012 Alcohol Use Standard Drinks/Week Comments Yes 0 (1 standard drink = 0.6 oz pur e alcohol) Once or twice a year Comments Unknown Sex and Gender Information Value Date Recorded Sex Assigned at Not on file Legal Sex Female 18:15 EST Gender Identity Not on file Sexual Orientation Not on file documented as of this encounter Functional Status * Are you deaf or do you have serious difficulty hearing? Answer Date of Assessment Author No 11/19/2015 12:00 Estevan Cornejo, NEYDA * Are you blind or do you have serious difficulty seeing, even when wearing glasses? Answer Date of Assessment Author No 11/19/2015 12:00 Estevan Cornejo, RN * Do you have serious difficulty walking or climbing stairs? (5 years old or older) Answer Date of Assessment Author No 11/19/2015 12:00 Estevan Cornejo, RN * Do you have difficulty dressing or bathing? (5 years old or older) Answer Date of Assessment Author No 11/19/2015 12:00 Estevan Cornejo, NEYDA * Because of a physical, mental, or emotional condition, does this person have difficulty doing errands alone such as visiting a doctor's office or shopping? Answer Date of Assessment Author No 11/29/2015 13:29 Estevan Cornejo RN documented as of this encounter Mental Status * Because of a physical, mental, or emotional condition, does this person have serious difficulty concentrating, remembering, or making decisions? Answer Entry Date Author No 11/29/2015 13:29 Estevan Cornejo RN documented in this encounter Plan of Treatment Not on file documented as of this encounter Procedures Procedure Name Priority Date/Time Associated Diagnosis Comments HEPATITIS C AB W REFLEX TO HCV RNA BY PCR Routine 03/21/2022 17:10 EST documented in this encounter Results * HEPATITIS C AB W REFLEX TO HCV RNA BY PCR (03/21/2022 17:10 EST) Hep C Antibody Negative Negative 03/24/2022 10:21 EST [facility] Blood VENOUS BLOOD / Unknown 03/21/2022 17:10 EST 03/23/2022 17:09 EST us Provider Outr Resulting Lab CHEMISTRY & BLOOD GA S ORDERABLES Final Result [facility] [address] [place] [address] documented in this encounter Visit Diagnoses Not on filedocumented in this encounter Care Teams Log Sorter Relationship Specialty Start Date End Date Faizan Bhakta MD PCP - General 08/18/13 documented as of this encounter
--- OUTSIDE RECORDS SUMMARY | 2024-02-29 15:47 | XMS_ITS | Encounter Summary ---
Author Organization [facility] Address [address] [place] [address] Care Team Providers Care First Mate Name Role Phone Faizan Bhakta MD Primary Care Provider Unav ailable Encounter Details Date Type Department Care Team (Late st Contact Info) Description 06/24/2023 Lab Requisition [facility] Pathology & Laboratory Medicine - [address] [address] Outr Resulting Lab, Provider Social History Tobacco [...] Date of Assessment Author No 11/19/2015 12:00 EDT Estevan Narvaez RN * Because of a physical, mental, or [...] Answer Entry Date Author No 11/29/2015 13:29 EDEstevan Rey RN documented in this encounter Plan of Treatment Not on file documented as of this encounter Procedures Procedure Name Priority Date/Time Associated Diagnosis Comments SPEP WITH IMMUNOTYPING PERFORMABLE Today 06/24/2023 14:20 EDT SERUM FREE LIGHT CHAINS Routine 06/24/2023 14:20 EDT SPEP WITH IMMUNOTYPING Routine 06/24/2023 14:20 EDT PROTEIN, TOTAL Today 06/24/2023 14:20 EDT documented in this encounter Results * (ABNORMAL) SPEP WITH IMMUNOTYPING PERFORMABLE (06/24/2023 14:20 EDT) Albumin % 60.0 55.8 - 66.1 % 06/25/2023 15:11 [facility] Albumin g/dL 4.0 3.6 - 5.2 g/dL 06/25/2023 15:11 [facility] Alpha-1 % 5.4(H) 2.9 - 4.9 % 06/25/2023 15:11 [facility] Alpha-1 g/dL 0.40 0.15 - 0.40 g/dL 06/25/2023 15:11 [facility] Alpha-2 % 11.4 7.1 - 11.8 % 06/25/2023 15:11 [facility] Alpha-2 g/dL 0.80 0.50 - 1.00 g/dL 06/25/2023 15:11 [facility] Beta % 11.2 8.4 - 13.1 % 06/25/2023 15:11 [facility] Beta g/dL 0.70 0.60 - 1.20 g/dL 06/25/2023 15:11 [facility] Gamma % 12.0 11.1 - 18.8 % 06/25/2023 15:11 [facility] Gamma g/dL 0.80 0.60 - 1.60 g/dL 06/25/2023 15:11 [facility] SPEP Comment No apparent monoclonal protein seen on serum electrophoresis 06/25/2023 15:11 [facility] Comment:See scanned/suppleme ntary report. Immunotyping , Serum Current Interpretation: Negative for monoclonal immunoglobulins. Interpreted by: Jean Pierre Boudreaux MD 06/25/2023 1332 06/25/2023 15:11 [facility] Total Protein 6.6 6.3 - 8.2 g/dL 06/25/2023 15:11 [facility] Blood VENOUS BLOOD / Unknown 06/24/2023 14:20 EDT 06/24/2023 21:34 EDT us Provider Outr Resulting Lab CHEMISTRY & BLOOD GA S ORDERABLES Final Result Performing Organization Address [facility] de Phone Number [facility] [address] [place] [address] * PROTEIN, TOTAL (06/24/2023 14:20 EDT) Blood VENOUS BLOOD / Unknown 06/24/2023 14:20 EDT 06/24/2023 21:34 EDT us Provider Outr Resulting Lab CHEMISTRY & BLOOD GA S ORDERABLES Final Result Performing Organization Address [facility]/ZIP Co de Phone Number [facility] [address] [place] [address] * SERUM FREE LIGHT CHAINS (06/24/2023 14:20 EDT) [place] Free Lt Chain 1.87 0.33 - 1.94 mg/dL 06/25/2023 10:05 EDT [facility] Lambda Free Lt Chain 2.51 0.57 - 2.63 mg/dL 06/25/2023 10:05 EDT [facility] [place]/Lambda Ratio 0.75 0.26 - 1.65 06/25/2023 10:05 EDT [facility] Blood VENOUS BLOOD / Unknown 06/24/2023 14:20 EDT 06/24/2023 21:34 EDT us Provider Outr Resulting Lab CHEMISTRY & BLOOD GA S ORDERABLES Final Result [facility] [address] [place] [address] documented in this encounter Visit Diagnoses Not on filedocumented in this encounter Care Teams First Mate Relationship Specialty Start Date End Date Faizan Bhakta MD PCP - General 08/18/13 documented as of this encounter
--- OUTSIDE RECORDS SUMMARY | 2024-02-29 15:47 | XMS_ITS | Clinical Summary ---
Author Organization [facility] Address [address] [place] [address] Care Team Providers Care Manager Library Name Role Phone Faizan Bhakta MD Primary Care Provider Unav ailable Allergies Active Allergy Reactions Criticality Noted Date Comments Ciprofloxacin Itching 11/19/2015 Pt. Reports burning and itching with IV cipro- has not had po Ibuprofen Hives 07/15/2010 Morphine Nausea And Vomiting 07/15/2010 Oxycodone-Acetaminophen Nausea And Vomiting 10/2012 Hydrocodone-Acetaminophe n Nausea Only 10/04/2015 Medications aspirin 81 mg EC tablet Take 1 Tab by mouth daily. 30 Tab 0 3 Active Additional Information Patient taking differently:81 mg oralDAILY BEFORE BREAKFAST, Reported on 11/12/2015 acetaminophen (TYLENOL) 500 mg tablet Take 1-2 Tabs by mouth every 6 hours as needed for Pain. 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 11/19/2015 Tendinitis of right pectoralis major 03/12/2015 Axillary mass 03/12/2015 Status post aortobifemoral bypass surgery 2012 Needle phobia 10/18/2012 Atherosclerosis of [place] ar teries of extremity with intermittent claudication ([facility]) 09/09/2012 Overview (01/04/2015): ICD10 Update Auto Replacement Chronic right shoulder pain 04/27/2012 Surgical History Surgery Date Site/Laterality Comments HYSTERECTOMY CHOLECYSTECTOMY APPENDECTOMY SHOULDER SURGERY 11/14 AND 05/18 RIGHT SHOULDER ARTERIAL BYPASS SURGRY 11/01/12 Aortobifemoral bypass using a 14 x 7 mm Zeigler-Aiden graft (Dr. Garza) RIB RESECTION 11/19/2015 Right Right first rib resection (Dr. Garza) VASCULAR SURGERY 11/01/2012 aortobifemoral bypass VASCULAR SURGERY 11/19/2015 Right 1st rib resection Medical History Medical History Date Comments Wears glasses Back pain Joint pain Numbness Peripheral artery disease (HCC-CMS) Thoracic outlet syndrome Right s vianca. Medical management as of 10/18/12 Family History Medical History Relation Comments Heart Disease Father Heart Disease Paternal Grandfather AAA Neg Hx Stroke Neg Hx Relation Status Comments Father Paternal Grandfather Social History Tobacco Use Types Packs/Day Years [...] on file Sexual Orientation Not on file Obstetrics History Last Filed Vital Signs Vital Sign Reading Time Taken Comments Blood Pressure 94/62 11/29/2015 1328 EDT Left Pulse 80 11/29/2015 1328 EDT Temperature 37 ??C (98.6 ??F) 11/20/2015 0952 EDT Respiratory Rate 18 11/20/2015 0952 EDT Oxygen Saturation 94% 11/20/2015 0952 EDT Inhaled Oxygen Concentration - - Weight 56.7 kg (125 lb) 11/19/2015 1200 EDT stat ed Height 162.6 cm (5' 4.02) 11/19/2015 1200 EDT Body Mass Index 21.45 11/19/2015 1200 EDT Plan of Treatment Health Maintenance Due Date Last Done Comments Current Opioid Misuse Measurement 09/21/2014 Functional Assessment 09/21/2014 Opioid Informed Consent 09/21/2014 Pill Count 09/21/2014 Prescription Agreement 09/21/2014 Review Of Systems Adverse Effects 09/21/2014 Urine Drug Screen 09/21/2014 [place] Prescription Monitoring System 09/21/2014 COVID-19 Vaccine ( - 2023-25 season) 2023 RSV Immunization ( o r 60+ Years) (1 - 1-dose 75+ series) 06/22/2035 Hepatitis C Screen Completed 03/21/2022 Procedures Procedure Name Priority Date/Time Associated Diagnosis Comments HEPATITIS C AB W REFLEX TO HCV RNA BY PCR Routine 03/21/2022 17:10 EST from Last 3 Months or Most Recently Relevant to Health Maintenance Results * HEPATITIS C AB W REFLEX TO HCV RNA BY PCR (03/21/2022 17:10 EST) Hep C Antibody Negative Negative 03/24/2022 10:21 EST [facility] Blood VENOUS BLOOD / Unknown 03/21/2022 17:10 EST 03/23/2022 17:09 EST us Provider Outr Resulting Lab CHEMISTRY & BLOOD GA S ORDERABLES Final Result Performing Organization Address City/State/[facility] Co de Phone Number [facility] [address] [place] [address] from Last 3 Months or Most Recently Relevant to Health Maintenance Insurance [facility] Advance Directives For more information, please contact: [phone] Documents on File Type Date Recorded Patient Clerk Operator Expl anation Advance Directive 11/01/2012 5:42 11/01/19 16 [place] Advance Directive for Health Care * Full Code (Latest Code Status on File) Date Activated Date Inactivated Comments 11/19/2015 11:46 11/20/2015 13:03 Question Answer Comments Reason for decision includes: Full code consistent with overall plan of care Who participated in the discussion? Not Discusse d * Full Code Date Activated Date Inactivated Comments 11/19/2015 6:03 11/19/2015 11:46 Question Answer Comments Reason for decision includes: Full code consistent with overall plan of care Who participated in the discussion? Not Discusse d * Full Code Date Activated Date Inactivated Comments 11/01/2012 6:05 11/06/2012 12:54 Care Teams Manager Library Relationship Specialty Start Date End Date Faizan Bhakta MD PCP - General 08/18/13
--- OUTSIDE RECORDS SUMMARY | 2024-02-29 15:47 | XMS_ITS | Encounter Summary ---
Author Organization [facility] Address [address] [place] [id number] Care Team Providers Care [place] Former Machine Operator Name Role Phone Faizan Bhakta MD Primary Care Provider Unav ailable Reason for Visit * Reason Comments Pre-op Exam right first rib rese ction Encounter Details Date Type Department Care Team (Late st Contact Info) Description 11/08/2015 13:30 EDT Office Visit Vascular Surgery and Endovascular Therapy - [address] [id number] Tony Garza MD [address] [place] [address], [address] [place] [id number] Nurse Practitioner, [facility] Mp5 Vasc Surg 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) Discharge Disposition: Auto Discharge Social History Tobacco Use Types Packs/Day Years [...] on file documented as of this encounter Last Filed Vital Signs Vital Sign Reading Time Taken Comments Blood Pressure 98/50 11/08/2015 1333 EDT left a rm Pulse 80 11/08/2015 1331 EDT Temperature - - Respiratory Rate - - Oxygen Saturation - - Inhaled Oxygen Concentration - - Weight 56.7 kg (125 lb) 11/08/2015 1331 EDT Height 162.6 cm (5' 4) 11/08/2015 1331 EDT Body Mass Index 21.46 11/08/2015 1331 EDT documented in this encounter Functional Status * Because of [...] Date Author No 11/08/2015 13:33 EDT Eduar Ho RN documented in this encounter Discharge Diagnoses Diagnosis G54.0 Brachial plexus disorders-G54.0[ICD-10-CM] documented in this encounter Discharge Disposition Disposition Code Departure Means Destination Auto Discharge documented in this encounter H&P Notes * Monica Rashid NP - 11/08/2015 1416 EDT [facility] Vascular Surgery H & P Visit Note Date: 11/08/2015 Patient: Ashlye Kee Subjective: Ashley Kee is a 55 y.o. female who presents today for preoperative evaluation for a right first rib resection. Referred by: Faizan Bhakta History of Present Illness: Patient is a 55 y/o ambidextrous woman with a chief complaint of chronic right upper extremity pain. She is status post 2 prior right shoulder surgeries, in 2010 on the right scapula and then again in 2011 to remove bone spurs. She has undergone physical therapy which did not reduce her pain. She has had a fairly extensive work up including a nerve conduction study which was positive for neurogenic thoracic outlet syndrome. Patient is well-known to Dr. Garza, who performed an aortobifemoral bypass on her in 2012 for severe claudication with good effect. Patient stopped smoking in 2012. Patient is taking ASA but is not on a statin. She is using Tylenol for pain. Cardiac testing: NM Stress test 10/11/12 negative for ischemia, EF 67%, normal LV function. The patient's problem list, allergies, immunizations, and medications were documented, reviewed, and updated as follows: Patient Active Problem List Diagnosis ??? Chronic right shoulder pain ??? Atherosclerosis of [place] arteries of extremity with intermittent claudication ??? Needle phobia ??? Status post aortobifemoral bypass surgery ??? Tendinitis of right pectoralis major ??? Axillary mass Allergies: Ibuprofen; Morphine; Percocet; and Vicodin Immunizations: There is no immunization history on file for this patient. Medications: Current Outpatient Prescriptions Medication Sig Dispense Refill ??? acetaminophen (TYLENOL) 500 mg tablet Take 1-2 Tabs by mouth every 6 hours as needed for Pain. ??? aspirin 81 mg EC tablet Take 1 Tab by mouth daily. 30 Tab 0 No current facility-administered medications for this visit. History was documented as follows: PMH PSH Past Medical History Diagnosis Date ??? Wears glasses ??? Back pain ??? Joint pain ??? Numbness ??? Peripheral artery disease ??? Thoracic outlet syndrome Right side. Medical management as of 10/18/12 Past Surgical History Procedure Laterality Date ??? Hysterectomy ??? Cholecystectomy ??? Appendectomy ??? Shoulder surgery 11/14 AND 05/18 RIGHT SHOULDER ??? Arterial bypass surgry 11/01/12 Aortobifemoral bypass using a 14 x 7 mm [place] graft (Dr. Garza) ??? Vascular surgery 11/01/2012 aortobifemoral bypass Social History Family History Living situation: , lives at home, takes care of grandchildren, is not working outside the home. CAD yes AAA no History Substance Use Topics ??? Smoking status: Former Smoker -- 0.20 packs/day for 20 years Types: Cigarettes Quit date: 10/30/2012 ??? Smokeless tobacco: Not on file Comment: quit date was summer 2012 ??? Alcohol Use: Yes Comment: Once or twice a year STROKE no Medications (Not in a hospital admission) Allergies Allergies Allergen Reactions ??? Ibuprofen Hives ??? Morphine Nausea And Vomiting ??? Percocet [Oxycodone-Acetaminophen] Nausea And Vomiting ??? Vicodin [Hydrocodone-Acetaminophen] Nausea Only Vascular Review of Systems Constitutional: chronic right arm pain, no acute health changes, and Feels well today HEENT: Has post nasal drip. Cardiac: No active issues; no concerns Respiratory: No difficulty breathing Gastrointestinal: No active issues; no concerns, No constipation and No diarrhea Genitourinary/Renal: No active issues; no concerns and No urinary tract infections Musculoskeletal: RUE chronic pain from shoulder down the arm Neurologic: No headaches and No weakness Integumentary: No active issues; no concerns Allergy/Immunology: No active issues; no concerns ROS (other): PAIN MANAGEMENT: Patient states she has N/V with morphine Objective: Physical Examination: Vitals: BP 98/50 mmHg Pulse 80 Ht 162.6 cm (64) Wt 56.7 kg (125 lb) BMI 21.45 kg/m2. General: NAD, looks a little older than stated age. A/O x 3. Neck: Grossly normal Heart: RRR no murmur Lungs: right lower lobe with expiratory wheeze Abdomen: not examined Musculoskeletal: right arm with limited extension. Skin: clean, dry, intact over surgical area Neurologic: grossly intact Vascular Exam: 2+ palpable radial pulse bilaterally Arterial Exam Femoral Popliteal Dorsalis Pedis Posterior Tib Right Left DS = Doppler Signal 2+ = Expected palpable pulse 1+ = Diminished palpable pulse +DS = Doppler Signal present -DS = No Doppler Signal Venous Exam: n/a Labs drawn on: 11/08/15: Lytes bun cr cbc pending CXR from: Blood Bank if applicable: T and S Stress test if applicable: Negative NM Stress from 2012, patient now an ex - smoker Patient medication instructions if applicable: OK to continue ASA Assessment: Patient is a 55 y/o woman with chronic right arm pain x several years not responsive to P.T. Nerve conduction studies indicated neurogenic TOS. Ashley Kee is a good candidate for right first rib resection . Advantages and disadvantages of surgery were reviewed. The operative procedure was discussed including the risks of general anesthetic and medications and the potential risk of complications. There could also be the need for re-operation. Post-operative recovery was discussed, as well as the need for post surgery follow-up. The patient understands the risks; any and all questions were answered to the patient's satisfaction. Plan: NPO after MN Antibiotic prophylaxis with Cefazolin Patient states she gets nauseous with narcotics, may need Zofran. Will need INFORMIX DEVELOPER post op. Will need an arm sling prior to discharge. Likely will have Dermabond for incision closure, if not will need instructions to peel off dressing2 days after surgery. Expect a 1 or perhaps 2 night stay depending on pain control with transition to oral pain meds Submitted by: Monica Rashid NP documented in this encounter Plan of Treatment Not on file documented as of this encounter Results * PRE-OP BLOOD BANK DRAW (11/08/2015 14:27 EDT) Pre-Op Blood Bank Lab Draw SPECIMEN RECEIVED ACCEPTABLE 11/08/2015 15:44 EDT [facility] BLOOD SPECIMEN / Unknown 11/08/2015 14:27 EDT 11/08/2015 14:43 EDT us Monica Rashid REPLENISHMENT ANALYST BLOOD BANK TESTS Final Resul t Performing Organization Address [facility] Co de Phone Number [facility] [address] [place] [address] * ELECTROLYTES (11/08/2015 14:27 EDT) Sodium 141 136 - 145 mEq/L 11/08/2015 15:32 EDT [facility] Potassium 4.0 3.5 - 5.0 mEq/L 11/08/2015 15:32 EDT [facility] Chloride 103 96 - 110 mEq/L 11/08/2015 15:32 EDT [facility] CO2 24 24 - 32 mEq/L 11/08/2015 15:32 EDT [facility] Blood specimen (specimen) BLOOD SPECIMEN / Unknown 11/08/2015 14:27 EDT 11/08/2015 14:43 EDT us Monica Rashid REPLENISHMENT ANALYST CHEMISTRY & BLOOD GAS ORDERA BLES Final Result [facility] [address] [place] [address] * (ABNORMAL) BUN (11/08/2015 14:27 EDT) BUN 6(L) 10 - 26 mg/dl 11/08/2015 15:32 EDT [facility] Blood specimen (specimen) BLOOD SPECIMEN / Unknown 11/08/2015 14:27 EDT 11/08/2015 14:43 EDT Monica Rashid APRN CHEMISTRY & BLOOD GAS ORDERA BLES Final Result Performing Organization Address [facility] Co de Phone Number [facility] [address] [place] [address] * CREATININE (11/08/2015 14:27 EDT) Creatinine 0.74 0.52 - 1.04 mg/dl 11/08/2015 15:32 EDT [facility] GFR, Calculated 91 >60 ml/min/1.7 3m2 11/08/2015 15:32 EDT [facility] Comment: eGFR calculated using CKD-EPI equation for non Americans. Multiply eGFR by 1.16 for Americans. Blood specimen (specimen) BLOOD SPECIMEN / Unknown 11/08/2015 14:27 EDT 11/08/2015 14:43 EDT us Monica Rashid APRN CHEMISTRY & BLOOD GAS ORDERA BLES Final Result Performing Organization Address [facility] Co de Phone Number [facility] [address] [place] [address] * (ABNORMAL) HEMAGRAM (11/08/2015 14:27 EDT) WBC 7.85 4.0 - 12.4 K/cmm 11/08/2015 15:01 T [facility] RBC 5.08(H) 3.86 - 5.04 M/cmm 11/08/2015 15:01 [facility] Hemoglobin 14.9 11.6 - 15.2 gm/dl 11/08/2015 15:01 [facility] HCT 43.9 34.9 - 44.4 % 11/08/2015 15:01 [facility] MCV 86 81 - 98 fl 11/08/2015 15:01 T [facility] MCH 29.3 26.7 - 33.3 pg 11/08/2015 15:01 [facility] MCHC 33.9 32.1 - 35.9 gm/dl 11/08/2015 15:01 EDT [facility] RDW-CV 13.4 11.7 - 14.6 % 11/08/2015 15:01 EDT [facility] RDW-SD 42.2 37.6 - 50.3 fl 11/08/2015 15:01 EDT [facility] PLT 258 141 - 377 K/cmm 11/08/2015 15:01 T [facility] MPV 9.1(L) 9.5 - 12.7 fl 11/08/2015 15:01 EDT [facility] Blood specimen (specimen) BLOOD SPECIMEN / Unknown 11/08/2015 14:27 EDT 11/08/2015 14:43 EDT us Monica Rashid REPLENISHMENT ANALYST HEMATOLOGY & PF4 ORDERABLES Final Result [facility] [address] [place] [address] documented in this encounter Visit Diagnoses Diagnosis Thoracic outlet syndrome associated with cervical rib- Primary documented in this encounter Care Teams [place] Former Machine Operator Relationship Specialty Start Date End Date Faizan Bhakta MD PCP - General 08/18/13 documented as of this encounter
--- OUTSIDE RECORDS SUMMARY | 2024-02-29 15:47 | XMS_ITS | Encounter Summary ---
Author Organization [facility] Address [address] [place] [address] Care Team Providers Care Manager Women Name Role Phone Faizan Bhakta MD Primary Care Provider Unav ailable Encounter Details Date Type Department Care Team (Late st Contact Info) Description 11/19/2015 5:33 EDT - 11/20/2015 10:41 EDT Hospital Encounter [facility] [address] [place] [address] Tony Garza MD [address] [facility], [facility] [address] [place] [id number] Thoracic outlet syndrome associated with cervical rib Discharge Disposition: Home or Self Care Social [...] Sign Reading Time Taken Comments Blood Pressure 114/58 11/20/2015 0952 EDT Pulse - - Temperature 37 ??C (98.6 ??F) 11/20/2015 0952 EDT Respiratory Rate 18 11/20/2015 0952 EDT Oxygen Saturation 94% 11/20/2015 0952 EDT Inhaled Oxygen Concentration - - Weight 56.7 kg (125 lb) 11/19/2015 1200 EDT stat ed Height 162.6 cm (5' 4.02) 11/19/2015 1200 EDT Body Mass Index 21.45 11/19/2015 1200 EDT documented in this encounter Functional Status * Are you deaf or do you have serious difficulty hearing? Answer Date of Assessment Author No 11/19/2015 12:00 Estevan Cornejo RN * Are you blind or do you have serious difficulty seeing, even when wearing glasses? Answer Date of Assessment Author No 11/19/2015 12:00 Estevan Cornejo RN * Do you have serious difficulty walking or climbing stairs? (5 years old or older) Answer Date of Assessment Author No 11/19/2015 12:00 Estevan Cornejo RN * Do you have difficulty dressing or bathing? (5 years old or older) Answer Date of Assessment Author No 11/19/2015 12:00 Estevan Cornejo RN * Because of a physical, mental, or emotional condition, do you have difficulty doing errands alone such as visiting a doctor's office or shopping? (15 years old or older) Answer Date of Assessment Author No 11/19/2015 12:00 Estevan Cornejo RN documented as of this encounter Mental Status * Because of a physical, mental, or emotional condition, do you have serious difficulty concentrating, remembering, or making decisions? 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 Principal Procedure: Right first rib resection Condition at Discharge: Good Assessment at Discharge: Visit Vitals ??? BP 138/54 (BP Cuff Location: Left arm, Patient Position: Semi fowlers) ??? Temp 36.5 ??C (97.7 ??F) (Tympanic) ??? Resp 16 ??? Ht 162.6 cm (64.02) ??? Wt 56.7 kg (125 lb) Comment: stated ??? SpO2 96% ??? BMI 21.45 kg/m2 Physical Exam: Gen: NAD, Alert and oriented x3, Conversing fluently and responding appropriately Pulm: CTABL ?? CV: RRR, no m/r/g, clear S1 + S2, Abd: +BS, Soft, NTND Ext: No LE Edema, BL radial pulses palpable ?? Incision/Dressing: transaxillary incision skin edges are well approximated with dermabond, no ecchymosis observed, no erythema observed, no hematoma or seroma formation noted ? Hospital Course: Mrs. 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 She was admitted on 11/18 for a scheduled right first rib resection.Post-operatively she reported some nausea and emesis after taking narcotic pain medication. An EKG was performed [facility] showed stable right bundle branch block without any acute changes and troponins were negative x2. On the morning of POD#1, her pain was controlled with tylenol and she had not reported any nausea since discontinuing the narcotic pain medication. She remained neuro-vascularized intact, she was tolerating a regular diet, passing flatus and ambulating without difficulty. She was discharged home on POD#1 (11/20/2015) in good condition. She should follow-up with her PCP,Dr. Faizan Bhakta in one week. She will follow up with Dr. Garza in the Vascular Clinic on , 11/29/2015 at 1:309PM Medications at Discharge: Discharge Medications: START taking these medications Sig docusate sodium 100 mg capsule Commonly known as: COLACE 100 mg, oral, BID PRN HYDROmorphone 2 mg tablet Commonly known as: DILAUDID 2 mg, oral, Q4H PRN ondansetron 4 mg disintegrating tablet Commonly known as: ZOFRAN-ODT 4 mg, oral, Q8H PRN CONTINUE taking these medications Sig acetaminophen 500 mg tablet Commonly known as: TYLENOL 500-1,000 mg, oral, Q6H PRN TAKE these medications PRESCRIBED. Do not change the dosage on your own. Call your health care provider if you have questions. Sig aspirin 81 mg EC tablet 81 mg, oral, DAILY Relevant Studies at Discharge: None. Last Lab Results at Discharge: No results for input(s): WBC, HGB, HCT, PLT in the last 72 hours. Recent Labs 11/19/15 1739 NA 140 K 4.3 CL 104 CO2 23* Troponin (11/19/2015): <0.034 cc: Faizan Garza MD Discharge Summary Completed: Deb Bal NP 11/20/2015 9:38 Cosigned by Tony Garza MD at 11/20/2015 10:08 EDT documented in this encounter Discharge Instructions * Discharge Instr - Other Orders* Deb Bal NP - 11/20/2015 9:18 EDT DISCHARGE INSTRUCTIONS Diet: It is important to increase protein in your diet to help your wound to heal Sources of protein include meat, fish, and vegetables. We encourage protein supplements such as Boost or Ensure found in the supermarket. Regular Activity: You may use an arm sling or two pillows to support your arm at home for comfort You should NOT elevate your arm above shoulder height (90 degrees) until seen by your surgeon at your follow up appointment. You may do gentle pendulum range of motion with your arm. Driving: No driving until you completely healed and you have had your postoperative check with your surgeon,No driving while taking narcotic pain medication Skin/Wound Care: May peel the outer dressing off in 2 days. Keep area dry, do not apply deodorant. May use a dry gauze in your armpit to keep the area clean and dry. Do not apply any powders or lotions to the area of the wound. Okay to get wound wet, but pat dry. Do NOT rub the wound area. Let Steri-Strips fall off on their own. Call your provider for problems with stitches, redness, pain, drainage or if stitches pull apart. Bathing: Okay to get wound wet, but pat dry. Do NOT rub the wound area. Shower only Pending Results: Not applicable Symptoms to Call Your Doctor About: Chest pain (angina) Dizziness or fainting Fever greater than 100.4 or chills Increased or new pain Nausea or vomiting Pain unrelieved by medication Recurrence of symptoms that brought you to the hospital Shortness of breath or rapid breathing Signs of infection such as pain, redness, swelling or drainage at procedure or wound site Appointments: Follow up in the Vascular Clinic for a postoperative check with Monica Rashid NP on , 11/29/15 at 1:30 PM. Follow-up Services Contacted at Discharge: none Health Risk and Disease Information: Not applicable documented in this encounter Medications at Time of Discharge acetaminophen (TYLENOL) 500 mg tablet Take 1-2 Tabs by mouth every 6 hours as needed for Pain. 11/05/2012 aspirin 81 mg EC tablet Take 1 Tab by mouth daily. 30 Tab 0 10/18/2012 docusate sodium (COLACE) 100 mg capsule Take 1 Cap by mouth 2 times daily as needed for Constipation . 11/20/2015 6 HYDROmorphone (DILAUDID) 2 mg tablet Take 1 Tab by mouth every 4 hours as needed for Pain. Daily Max: 12 mg 8 Tab 11/20/2015 6 ondansetron (ZOFRAN-ODT) 4 mg disintegrating tablet Take 1 Tab by mouth every 8 hours as needed for Nausea. 8 Tab 11/20/2015 6 documented as of this encounter Ordered Prescriptions Prescription Sig Dispense Quantity Refills Last Filled Start Date End Date ondansetron (ZOFRAN-ODT) 4 mg disintegrating tablet Take 1 Tab by mouth every 8 hours as needed for Nausea. 8 Tab 11/20/2015 6 HYDROmorphone (DILAUDID) 2 mg tablet Take 1 Tab by mouth every 4 hours as needed for Pain. Daily Max: 12 mg 8 Tab 11/20/2015 6 docusate sodium (COLACE) 100 mg capsule Take 1 Cap by mouth 2 times daily as needed for Constipation . 11/20/2015 6 documented in this encounter Discharge Disposition Disposition Code Departure Means Destination Home or Self Care documented in this encounter Progress Notes * Farheen Galvez RN - 11/20/2015 1041 EDT Case management discharge note: Patient admitted overnight following vascular intervention and discharged to home this morning prior to being seen by CM. No skilled needs identified for discharge by the surgical team or nursing staff. Farheen Galvez RN #[phone] * Rigoberto Narvaez RN - 11/20/2015 1011 EDT Discharge Note D - Patient ordered for discharge today. A - Patient given prescriptions, medication information sheets and After Visit Summary. Medication list, follow up appointments and care instructions reviewed with patient. IVs and ID band removed. R - Patient questions reviewed and addressed prior to discharge. Patient denied pain. Patient left the unit in a wheelchair in stable condition. No distress noted. 11/20/2015 10:11 Rigoberto Narvaez RN * Eun Solis MD - 11/19/2015 1798 EDT VASCULAR SURGERY POST-OP CHECK SUBJECTIVE: Patient is resting comfortably. She appears sleepy. States that the pain is tolerable and that the medication they are giving for pain is helping. She has received 2mg Dilaudid tablet PO and 0.4mg Dilaudid IV. No other complaints, Denies: Chest Pain, Shortness of breath, dizziness, nausea/vomiting. She feels as if the numbness and tingling in her right arm is getting better. She is tolerating liquids and crackers right now, but she has not felt the desire to eat a meal. States that she voided before the surgery, but does not feel that she has to void at this time. OBJECTIVE: VS: Blood pressure 121/61, temperature 36 ??C (96.8 ??F), temperature source Tympanic, resp. rate 19, height 162.6 cm (64.02), weight 56.7 kg (125 lb), SpO2 98 %. I/O: Current Shift 11/18 0700 - 11/18 1459 In: 853.8 [I.V.:853.8] Out: 50 No UOP since surgery Medications: Current Facility-Administered Medications Medication Route Frequency ??? acetaminophen (TYLENOL) tablet 650 mg oral Q4H PRN ??? aspirin EC tablet 81 mg oral DAILY ??? ceFAZolin (ANCEF) syringe 2 g intravenous Q8H ??? dextrose 5 % and 0.45 % NaCl with KCl 20 mEq/L infusion intravenous CONTINUOUS ??? docusate sodium (COLACE) capsule 100 mg oral BID ??? [START ON 11/20/2015] enoxaparin (LOVENOX) injection 40 mg subcutaneous QHS ??? HYDROmorphone (DILAUDID) tablet 2-4 mg oral Q4H PRN ??? HYDROmorphone (PF) (DILAUDID) 1 mg/mL injection 0.2-0.4 mg intravenous Q4H PRN ??? lactated ringers (LR) infusion intravenous CONTINUOUS ??? ondansetron (PF) (ZOFRAN) injection 2-4 mg intravenous Q6H PRN ??? senna (SENOKOT) tablet 1 Tab oral QHS Gen: NAD, Alert and oriented x3, Conversing fluently and responding appropriately Pulm: CTABL CV: RRR, no m/r/g, clear S1 + S2, transaxillary incision skin edges are well approximated with dermabond, no ecchymosis observed, no erythema observed, no hematoma or seroma formation noted Abd: +BS, Soft, NTND Ext: No LE Edema, BL radial pulses palpable Incision/Dressing: as above ASSESSMENT/PLAN: 55 y.o. female POD#0 s/p right transaxillary first rib resection Doing well. Pain Control: Tylenol 650mg PO prn pain [id number], Dilaudid 2-4mg PO prn pain q 4 hours, and Dilaudud0.2-0.4mg IV q 4 hours prn pain IS when awake Wean O2, maintain sats > 90% Activity: As tolerated Strict I&Os in this perioperative period - DTV by 1700. If not, bladder scan with option to straight cath Diet: DIET REGULAR - may decrease mIVF to 20mL/hr when tolerating a full regular diet Eun Solis MD 11/19/2015 14:38 Surgical Associate Civil Engineer Pager # [phone] * Anni Villalobos RN - 11/12/2015 6837 EDT Ashley Chhaya Villafuerteam has been instructed as follows regarding medication administration for the day of thescheduled procedure. Date of Surgery: 11/19/2015 Instructions for Taking Medications Day of Surgery Medication Sig Last Dose Hold DOS Take DOS acetaminophen (TYLENOL) 500 mg tablet Take 1-2 Tabs by mouth every 6 hours as needed for Pain. yes aspirin 81 mg EC tablet Take 1 Tab by mouth daily. Patient taking differently: Take 81 mg by mouth daily before breakfast. yes documented in this encounter H&P Notes * Umair Roman MD - 11/19/2015 8805 EDT The preoperative history and physical which was performed within 30 days of this procedure has been reviewed and the clinically appropriate elements of the physical examination have been repeated. There are no changes to the documented history and physical or if so such changes are documented below Umair Roman MD 11/19/2015 7:07 Cosigned by Tony Garza MD at 11/20/2015 9:10 EDT Source Note - Monica Rashid NP - 11/08/2015 14:16 EDT [facility] Vascular Surgery H & P Visit Note Date: 11/08/2015 Patient: Ashley Grayson Subjective: Ashley Grayson is a 55 y.o. female who presents [...] Chronic right shoulder pain ??? 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 [...] this visit. History was documented as follows: [facility] Past Medical History Diagnosis Date ??? Wears [...] bypass using a 14 x 7 mm [place] graft (Dr. Garza) ??? Vascular surgery 11/01/2012 [...] Nerve conduction studies indicated neurogenic TOS. Ashley Grayson is a good candidate for right first [...] with narcotics, may need Zofran. Will need TOPOGRAPHICAL DRAFTER post op. Will need an arm sling prior to discharge. Likely will have Dermabond for incision closure, if not will need instructions to peel off dressing2 days after surgery. Expect a 1 or perhaps 2 night stay depending on pain control with transition to oral pain meds Submitted by: Monica Rashid NP documented in this encounter OR Notes * OR Surgeon - Tony Garza MD - 11/19/2015 1130 EDT OPERATIVE REPORT SERVICE DATE: 11/19/2015 PREOPERATIVE DIAGNOSIS: Right-sided neurogenic thoracic outlet syndrome. POSTOPERATIVE DIAGNOSIS: Right-sided neurogenic thoracic outlet syndrome. PROCEDURE: Transaxillary 1st rib resection and scalenectomy. ANESTHESIA: SURGEON: Tony Garza MD DISTILLERY MILLER HELPER: Umair Roman MD and Eun Solis MD INDICATIONS: Ms Grayson has had pain and numbness in her right arm for several years now. She has hada fairly extensive workup including EMG and imaging. She went through extensive physical therapy and ergometrics with minimal improvement. She went through a pain evaluation as well. She is now brought in for 1st rib resection. NARRATIVE: In the operating room under general anesthesia in right lateral position with right sideup, her right arm and axilla were prepped and draped in a sterile manner. We made an incision in between the pec major and latissimus dorsi muscle, right at the inferior hairline. We went sharply through the skin and then with cautery through the subcu. We identified the thoracoepiploic vein, whichwas ligated with 2-0 silk and divided. We then got down onto the chest wall. We carefully dissectedup into the axilla. We divided 1 costal brachial nerve to allow access. We got down onto the 1st rib. The supreme thoracic artery and vein were clipped and divided. We identified the costochondral ligament, which was carefully isolated, dissected the vein off the ligament and then the ligament was then divided with cautery and scissors. The subclavius tendon was divided as well. We then carefullyisolated the anterior scalenus muscle, which was then divided using cautery. We then used cautery and Nicholson to carefully isolate the rib. We carefully peeled the pleura off the rib. We then used a morelia eur to divide the rib, it started anteriorly. We removed the rib all the way to the costochondral junction. We then used the Nicholson to push the middle scalenus muscle off the rib. The rib was then removed all the way towards the spine. The posterior trunk of the brachial plexus was easily seen and protected. We then cleaned the area of all bands and adhesions, and there were some bands that seemed to cross both the artery and the brachial plexus. The wound was then carefully irrigated until clean. Good hemostasis was obtained. We put water in the incision and checked Valsalva. We saw no air leak. The wound was then closed again using 3-0 Vicryl for the fascia and 4-0 Monocryl for the skin andthen Dermabond for skin dressing. She was stable during the procedure. Instrument and sponge count was correct. She was rolled onto her back again. Intraoperative chest x-ray was obtained, which showed the appropriate rib had been removed and no pneumothorax. She was then extubated in the operatingroom and transferred to the postanesthesia care unit in stable, good condition. I was present throughout the full length of the surgery. Unless otherwise noted, there were no complications, no blood loss, no cultures obtained, no specimens removed, and no drains retained. Tony Garza MD 09 11 AM / Tony Garza MD en Confirmation: [id number] Dictation ID: [id number] documented in this encounter Miscellaneous Notes * Plan of Care - Estelle Card RN - 11/20/2015 0244 EDT Problem: Daily Care Plan Goals Goal: Care Plan Documentation Outcome: Ongoing 11/20/15 0220 Care Plan Focus Area of Focus Pain/ Comfort Goal This Shift adequate pain control Data: Pt 55 y.o F POD#1 now s/p R first rib resection r/t thoracic outlet syndrome. Pt Aox3, stableVS, voiding in bathroom, ambulating independently. Patient complaining of nausea/vomitting at change of shift. Trending trops, have been negative so far. Action: MD Macias notified about nausea/vomiting. Medicated for pain with tylenol later in night, see JUN. Pt ambulated independently in wylie 400 ft w/o PATHAK. Clustered care to promote rest. Response: Pt sleeping comfortably. No nausea since 2099. Trops remain negative. Will continue to monitor. Estelle Card RN 11/20/2015 2:40 * Plan of Care - Rigoberto Narvaez RN - 11/19/2015 1750 EDT Problem: Daily Care Plan Goals Goal: Care Plan Documentation 11/19/15 1714 Care Plan Focus Area of Focus Pain/ Comfort Goal This Shift pain will be tolerable Pain Note D - The patient reported pain 6-7/10. The reported pain location was in R rib r/t surgery today. A - Pain was assessed and treated with medication ordered as per PRN MAR. The pain management techniques were effective, but pt became nauseous. Team notified and EKG and cardiac workup currently under process. R - Pt reports being more comfortable now. EKG raised concern to MD, awaiting lab work results currently. Will continue to assess and treat pain levels as per policy and prn. 11/19/2015 17:48 Rigoberto Narvaez RN * Anesthesia Post-Eval - Joseph Munson - 11/19/2015 1100 EDT Post Anesthesia Evaluation Note Date of Service: 11/19/2015 Ashley Grayson, a 55 y.o. year old female has received General Anesthesia She has been evaluated, assessed and discharged from anesthesia care with stable cardiorespiratory function and alert mental status. The last set of recorded vital signs and pain rating were reviewed: Temp: (!) 35.4 ??C (95.7 ??F), Heart Rate: 68 BPM, BP: 116/58, Resp: 18, SpO2: 97 %,Numeric Pain Level (Scale 1-10): 0 Ashley Grayson participated in this evaluation unless otherwise noted. Her pain, nausea and vomitinghave been managed and her body temperature and fluid balance have been restored. Additional monitoring and assessment needs have been addressed. If present, any postoperative events are documented below. If the regional block for postoperative analgesia was intended to last greater than 48 hours, Aditi Grayson will be followed by the Acute Pain Service. Joseph Munson MD 11/19/2015 11:01 * Brief Op Note - Eun Solis MD - 11/19/2015 0925 EDT Vascular Brief Post-Op Note Date of Surgery: 11/19/2015 Surgeon: Dr. Garza Assistants: Dr. Roman and Dr. Solis Pre-Op Diagnosis: Neurogenic Thoracic Outlet Syndrome Post-Op Diagnosis: Same Procedure(s): Right 1st Rib resection Findings: First rib resected without incident Anesthesia Type: General Estimated Blood Loss: <50mL Fluids: Ashley Grayson received 600mL of fluid replacement. Urine Output: No saleh Complications: None apparent Disposition and Condition: Ashley Grayson was sent to PACU in Good condition. Eun Solis MD 11/19/2015 9:25 General Surgery PGY-1 Pager [phone] documented in this encounter Plan of Treatment Not on file documented as of this encounter Procedures Procedure Name Priority Date/Time Associated Diagnosis Comments ECG REPORT - SCANNED 11/23/2015 14:15 EDT ECG REPORT - SCANNED 11/23/2015 7:55 EDT ECG REPORT - SCANNED 11/23/2015 7:55 EDT TROPONIN I Routine 11/20/2015 9:44 EDT TROPONIN I Routine 11/20/2015 1:10 EDT CALCIUM, IONIZED Routine 11/19/2015 18:4 8 EDT INPATIENT ADD-ON STAT 11/19/2015 18:1 0 EDT TROPONIN I STAT 11/19/2015 17:39 EDT MAGNESIUM Routine 11/19/2015 17:39 EDT ELECTROLYTES Routine 11/19/2015 17:39 EDT EKG 12-LEAD STAT 11/19/2015 17:28 EDT PORTABLE CHEST 1 VIEW Routine 11/19/2015 9:29 EDT ORDERS - SCANNED 11/12/2015 11:2 6 EDT documented in this encounter Results * ECG REPORT - SCANNED (11/23/2015 14:15 EDT) 11/23/2015 14:1 5 EDT us Scan 2 Aviation Safety Equipment Technician PROCEDURE/MINOR SURGICAL OR DERABLES Final Result * ECG REPORT - SCANNED (11/23/2015 7:55 EDT) 11/23/2015 7:55 EDT us Scan 2 Aviation Safety Equipment Technician PROCEDURE/MINOR SURGICAL OR DERABLES Final Result * ECG REPORT - SCANNED (11/23/2015 7:55 EDT) 11/23/2015 7:55 EDT us Scan 2 Aviation Safety Equipment Technician PROCEDURE/MINOR SURGICAL OR DERABLES Final Result * TROPONIN I (11/20/2015 9:44 EDT) Troponin I (ng/mL) <0.034 <0.034 ng/ml 11/20/2015 10:40 EDT [facility] Blood specimen (specimen) BLOOD SPECIMEN / Unknown 11/20/2015 9:44 EDT 11/20/2015 9:49 EDT us Jennifer Macias MD CHEMISTRY & BLOOD GAS ORDERA BLES Final Result [facility] [address] [place] [address] * TROPONIN I (11/20/2015 1:10 EDT) Troponin I (ng/mL) <0.034 <0.034 ng/ml 11/20/2015 1:47 EDT [facility] Blood specimen (specimen) BLOOD SPECIMEN / Unknown 11/20/2015 1:10 EDT 11/20/2015 1:20 EDT us Jennifer Macias MD CHEMISTRY & BLOOD GAS ORDERA BLES Final Result Performing Organization Address City/[facility]/ZIP Co de Phone Number [facility] [address] [place] [address] * CALCIUM, IONIZED (11/19/2015 18:48 EDT) Calcium, Ionized 1.15 1.12 - 1.32 mmol/L 11/19/2015 19:20 EDT [facility] Blood specimen (specimen) BLOOD SPECIMEN / Unknown 11/19/2015 18:48 EDT 11/19/2015 19:09 EDT us Tony Garza MD CHEMISTRY & BLOOD GAS ORD ERABLES Final Result Performing Organization Address [facility] Co de Phone Number [facility] [address] [place] [address] * INPATIENT ADD-ON (11/19/2015 18:10 EDT) Tests to be added IONIZED CALCIUM, MAGNESIUM 11/19/2015 18:08 EDT [facility] Comment:ELECTROLYTES Number for problems [id number] ADVISED PEG CAN NOT ADD ICA NO GREEN ON ICE 11/19/2015 18:18 EDT [facility] Accession number [id number] MG AND LYT 11/19/2015 18:18 EDT [facility] TOPOGRAPHY UNKNOWN / Unknown 11/19/2015 18:10 EDT 11/19/2015 18:16 EDT us Eun Solis MD HEMATOLOGY & PF4 ORDERABLES F inal Result Performing Organization Address City/[facility]/ZIP Co de Phone Number [facility] [address] [place] [address] * MAGNESIUM (11/19/2015 17:39 EDT) Magnesium 2.2 1.7 - 2.8 mg/dl 11/19/2015 18:41 EDT [facility] BLOOD SPECIMEN / Unknown 11/19/2015 17:39 EDT 11/19/2015 17:49 EDT us Amber Bishop MD CHEMISTRY & BLOOD GAS ORDERABLES Final Result [facility] [address] [place] [address] * (ABNORMAL) ELECTROLYTES (11/19/2015 17:39 EDT) Sodium 140 136 - 145 mEq/L 11/19/2015 18:41 EDT [facility] Potassium 4.3 3.5 - 5.0 mEq/L 11/19/2015 18:41 EDT [facility] Comment: Interpret results with caution. Prolonged sample storage may alter result. Chloride 104 96 - 110 mEq/L 11/19/2015 18:41 EDT [facility] CO2 23(L) 24 - 32 mEq/L 11/19/2015 18:41 EDT [facility] Comment: Interpret results with caution. Prolonged sample storage may alter result. BLOOD SPECIMEN / Unknown 11/19/2015 17:39 EDT 11/19/2015 17:49 EDT us Amber Bishop MD CHEMISTRY & BLOOD GAS ORDERABLES Final Result [facility] [address] [place] [address] * TROPONIN I (11/19/2015 17:39 EDT) Troponin I (ng/mL) <0.034 <0.034 ng/ml 11/19/2015 18:27 EDT [facility] Blood specimen (specimen) BLOOD SPECIMEN / Unknown 11/19/2015 17:39 EDT 11/19/2015 17:49 EDT us Amber Bishop MD CHEMISTRY & BLOOD GAS ORDERABLES Final Result [facility] [address] [place] [address] * EKG 12-LEAD (11/19/2015 17:28 EDT) 11/19/2015 17:2 8 EDT Narrative [facility] - 11/21/2015 17:16 EDT ? The ? Test Date: ?2015-11-19 Pat Name: ? ASHLEY KENAN ?Department: ?? [facility] ? Room: ? SB366 Gender: ? F ?Brake Repairer Bus: ?? [id number] : ?1960 ? Requested By: RITA LEAL Order Number: [id number] ? Reading MD: ?? HUGO YING MD ? Measurements Intervals ?[place] ? Rate: ? 65 ? P: ?1 AK: ? 156 ?QRS: ?170 QRSD: ? 145 ?T: ?26 QT: ? 455 ? QTc: ?476 ? Interpretive Statements SINUS RHYTHM RIGHT BUNDLE BRANCH BLOCK Compared to ECG 10/18/2012 14:13:52 Right bundle-branch block now present I reviewed the tracing and have either agreed or edited the findings in this report. Electronically Signed On 11-21-15 17:16:42 EDT by HUGO YING MD. Procedure Note Hugo Ying MD - 11/21/2015 The Test Date: 2015-11-19 Pat Name: ASHLEY GRAYSON Department: [address] Room: [facility] Gender: F Brake Repairer Bus: [id number] : 1960 Requested By: RITA LEAL Order Number: [id number] Reading MD: HUGO YING MD Measurements Intervals [place] Rate: 65 P: 1 AK: 156 QRS: 170 QRSD: 145 T: 26 QT: 455 QTc: 476 Interpretive Statements SINUS RHYTHM RIGHT BUNDLE BRANCH BLOCK Compared to ECG 10/18/2012 14:13:52 Right bundle-branch block now present I reviewed the tracing and have either agreed or edited the findings inthis report. Electronically Signed On 11-21-15 17:16:42 EDT by HUGO MARC. us Amber Bishop MD CARDIAC ECG ORDERABLES Final Res ult [facility] * PORTABLE CHEST 1 VIEW (11/19/2015 9:29 EDT) Anatomical Region Laterality Modality Other 11/19/2015 9:29 EDT 11/19/2015 11:36 EDT Narrative 11/19/2015 11:36 EDT PORTABLE CHEST 1 VIEW ??11/19/2015 9:29 AM Clinical History/Comments: Thoracic outlet syndrome associated with cervical rib, Brachial plexus disorders S/P first rib resection R/O PTX COMPARISON: November 01, 2002. FINDINGS: Supine portable AP view of the chest. Lines/tubes: ??Interval placement of endotracheal tube with distal tip in mid to lower trachea approximately 2 to 3 cm from the rema. Interval removal of transesophageal tube, epidural catheter and right neck central venous catheter and sheath. Soft tissues and bones: The 1st right rib has been resected. Postsurgical clips are superimposed on the right axillary region. Cardiac and mediastinal contours: No significant abnormalities. Lungs: There is extensive airspace opacity throughout the left lower lung particularly laterally, increased since the prior examination. The lungs are underinflated and the pulmonary vasculature indistinct. Pleura: No visible pneumothorax although cannot be excluded due to supine technique. Impression: 1. Postsurgical changes related to 1st rib resection. 2. Extensive airspace opacity in the left lower lung. This likely reflects atelectasis. Continued follow-up recommended to exclude pneumonia. . I have personally reviewed the images and the above interpretation and agree with the findings. Procedure Note Sai Islas MD - 11/19/2015 PORTABLE CHEST 1 VIEW 11/19/2015 9:29 AM Clinical History/Comments: Thoracic outlet syndrome associated with cervical rib, Brachial plexus disorders S/P first rib resection R/O PTX COMPARISON: November 01, 2002. FINDINGS: Supine portable AP view of the chest. Lines/tubes: Interval placement of endotracheal tube with distal tip in mid to lower trachea approximately 2 to 3 cm from the rema. Interval removal of transesophageal tube, epidural catheter and right neck central venous catheter and sheath. Soft tissues and bones: The 1st right rib has been resected. Postsurgical clips are superimposed on the right axillary region. Cardiac and mediastinal contours: No significant abnormalities. Lungs: There is extensive airspace opacity throughout the left lower lung particularly laterally, increased since the prior examination. The lungs are underinflated and the pulmonary vasculature indistinct. Pleura: No visible pneumothorax although cannot be excluded due to supine technique. Impression: 1. Postsurgical changes related to 1st rib resection. 2. Extensive airspace opacity in the left lower lung. This likely reflects atelectasis. Continued follow-up recommended to exclude pneumonia. . I have personally reviewed the images and the above interpretation and agree with the findings. us Tony Garza MD IMG DIAGNOSTIC IMAGING OR DERABLES Final Result * ORDERS - SCANNED (11/12/2015 11:26 EDT) 11/12/2015 11:2 6 EDT us Scan 2 Aviation Safety Equipment Technician ADMISSION ORDERABLES Final Result documented in this encounter Visit Diagnoses Diagnosis Thoracic outlet syndrome associated with cervical rib Thoracic outlet syndrome associated with cervical rib documented in this encounter Administered Medications Inactive Administered Medications - up to 3 most recent administrations Medication Order MAR Action Action Date Dose Rate Site acetaminophen (TYLENOL) tablet 650 mg 650 mg, oral, EVERY 4 HOURS PRN, Starting on Thu11/19/15 at 1146, Until Thu11/20/15 at 1302, Pain, Routine, On Unit Given 11/20/2015 1:14 EDT 650 mg aspirin EC tablet 81 mg 81 mg, oral, DAILY, First dose on Thu11/19/15 at 1215, Until Discontinued, Routine Given 11/20/2015 8:39 EDT 81 mg Given 11/19/2015 12:12 EDT 81 mg ceFAZolin (ANCEF) 2,000 mg in sodium chloride 0.9% 50 mL IVPB 2,000 mg, intravenous, Administer over 30 Minutes, EVERY 8 HOURS, 2 doses, First dose on Thu11/19/15 at 1600, Last dose on Thu11/20/15 at 0000, Routine Given 11/20/2015 0:42 EDT 2,000 mg Given 11/19/2015 15:38 EDT 2,000 mg ceFAZolin (ANCEF) syringe 2 g 2 g, intravenous, Administer over 10 Minutes, PRE-OP ONCE, 1 dose, On Thu11/19/15 at 0630, Routine, Pre-Op DOS Rx ApprovedIndications:Thoracic outlet syndrome associated with cervical rib Given by Other 11/19/2015 7:37 EDT 2 g I V chlorhexidine gluconate 2 % cloth 1 Each 1 Each, topical, PRE-OP ONCE, 1 dose, On Thu11/19/15 at 0630, Routine, Pre-Op DOS Rx ApprovedIndications:Thoracic outlet syndrome associated with cervical rib Given 11/19/2015 6:33 EDT 1 Each dextrose 5 % and 0.45 % NaCl with KCl 20 mEq/L infusion at 100 mL/hr, intravenous, CONTINUOUS, Starting on Thu11/19/15 at 1100, Until Thu11/19/15 at 2150, Routine Rate Change 11/19/2015 16:40 EDT 30 mL/hr New Bag 11/19/2015 10:33 EDT 100 mL/hr docusate sodium (COLACE) capsule 100 mg 100 mg, oral, 2 TIMES DAILY, First dose on Thu11/19/15 at 1215, Until Discontinued, Routine, On Unit Given 11/20/2015 8:39 EDT 100 mg Given 11/19/2015 12:12 EDT 100 mg HYDROmorphone (DILAUDID) tablet 2-4 mg 2-4 mg, oral, EVERY 4 HOURS PRN, Starting on Thu11/19/15 at 1146, Until Thu11/20/15 at 1302, Pain, Routine, On Unit Given 11/19/2015 14:36 EDT 2 mg HYDROmorphone (PF) (DILAUDID) 1 mg/mL injection 0.2-0.4 mg 0.2-0.4 mg, intravenous, EVERY 4 HOURS PRN, Starting on Thu11/19/15 at 1146, Until Thu11/20/15 at 1302, Pain, Routine, On Unit Given 11/19/2015 12:11 EDT 0.4 mg HYDROmorphone (PF) (DILAUDID) 1 mg/mL injection 0.2-1 mg 0.2-1 mg, intravenous, EVERY 10 MINUTES PRN, Starting on Thu11/19/15 at 0938, Until Thu11/19/15 at 1141, Pain, Routine, Recovery (only) Given 11/19/2015 10:14 EDT 0.6 mg lactated ringers (LR) infusion at 30 mL/hr, intravenous, CONTINUOUS, Starting on Thu11/19/15 at 0630, Until Thu11/20/15 at 1302, RoutineIndications:Thoracic outlet syndrome associated with cervical rib Rate Documented 11/20/2015 5:01 EDT 30 mL/hr New Bag 11/19/2015 22:11 EDT 30 mL/hr New Bag 11/19/2015 6:21 EDT 30 mL/hr lactated ringers (LR) infusion at 75 mL/hr, intravenous, CONTINUOUS, Starting on Thu11/19/15 at 1000, Until Thu11/19/15 at 1141, Routine, Recovery (only) Rate Documented 11/19/2015 9:50 EDT 75 mL/hr ondansetron (PF) (ZOFRAN) injection 2-4 mg 2-4 mg, intravenous, EVERY 6 HOURS PRN, Starting on Thu11/19/15 at 1146, Until Thu11/19/15 at 1719, Nausea, Routine, On Unit Given 11/19/2015 14:36 EDT 4 mg documented in this encounter Active and Recently Administered Medications Times are shown in EDT. Scheduled Medication Order 11/18/2015 11/19/2015 11/20/2015 aspirin EC tablet 81 mg 81 mg, oral, DAILY, First dose on Thu11/19/15 at 1215, Until Discontinued, Routine 1212 (Given - Provider: Rigoberto Narvaez, NEYDA) 0839 (Given - Provider: Rigoberto Narvaez RN) ceFAZolin (ANCEF) 2,000 mg in sodium chloride 0.9% 50 mL IVPB (COMPLETED) 2,000 mg, intravenous, Administer over 30 Minutes, EVERY 8 HOURS, 2 doses, First dose on Thu11/19/15 at 1600, Last dose on Thu11/20/15 at 0000, Routine 1538 (Given - Provider: Rigoberto Narvaez, NEYDA) 0042 (Given - Provider: Estelle Card, NEYDA) ceFAZolin (ANCEF) syringe 2 g (COMPLETED) 2 g, intravenous, Administer over 10 Minutes, PRE-OP ONCE, 1 dose, On Thu11/19/15 at 0630, Routine, Pre-Op DOS Rx Approved 0737 (Given by Other - Provider: Shantel James RN - Comment: given by Lita Elliott) chlorhexidine gluconate 2 % cloth 1 Each (COMPLETED) 1 Each, topical, PRE-OP ONCE, 1 dose, On 8/15/16 at 0630, Routine, Pre-Op DOS Rx Approved 0633 (Given - Provider: Dominga Judd, RN) docusate sodium (COLACE) capsule 100 mg 100 mg, oral, 2 TIMES DAILY, First dose on Thu11/19/15 at 1215, Until Discontinued, Routine, On Unit 1212 (Given - Provider: Rigoberto Narvaez RN)2147 (Not Given - Provider: Estelle Card RN - Reason: Patient/family refused) 0839 (Given - Provider: Rigoberto Narvaez RN) enoxaparin (LOVENOX) injection 40 mg 40 mg, subcutaneous, AT BEDTIME, First dose on Thu11/20/15 at 2100, Until Discontinued, Routine, On Unit ondansetron (PF) (ZOFRAN) injection 4 mg 4 mg, intravenous, NOW X1, 1 dose, On Thu11/19/15 at 2030, Routine 2123 (Hold - Provider: Estelle Card, NEYDA - Reason: Other) senna (SENOKOT) tablet 1 Tab 1 Tablet, oral, AT BEDTIME, First dose on Thu11/19/15 at 2100, Until Discontinued, Routine, On Unit 214 (Not Given - Provider: Estelle Card RN - Reason: Patient/family refused) Continuous Medication Order 11/18/2015 11/19/2015 11/20/2015 dextrose 5 % and 0.45 % NaCl with KCl 20 mEq/L infusion (CANCELED) at 100 mL/hr, intravenous, CONTINUOUS, Starting on Thu11/19/15 at 1100, Until Thu11/19/15 at 2150, Routine 1033 (New Bag - Provider: Lyndon Julien RN)1640 (Rate Change - Provider: Rigoberto Narvaez RN - Comment: may decrease rate per MD)2010 (Completed - Provider: Estelle Card RN - Comment: stopped per MD - run LR order instead) lactated ringers (LR) infusion at 30 mL/hr, intravenous, CONTINUOUS, Starting on Thu11/19/15 at 0630, Until Thu11/20/15 at 1302, Routine 0621 (New Bag - Provider: Dominga Judd, RN)0950 (Completed - Provider: Lyndon Julien RN)1505 (Hold - Provider: Rigoberto Narvaez RN - Reason: Other - Comment: Pt has limited access, w/ cont fluids already running.)2211 (New Bag - Provider: Estelle Card RN - Comment: per MD Mcaias) 0501 (Rate Documented - Provider: Estelle Card RN) lactated ringers (LR) infusion (CANCELED) at 75 mL/hr, intravenous, CONTINUOUS, Starting on Thu11/19/15 at 1000, Until Thu11/19/15 at 1141, Routine, Recovery (only) 0950 (Rate Documented - Provider: Lyndon Julien RN)1033 (Completed - Provider: Lyndon Julien RN) PRN Medication Order 11/18/2015 11/19/2015 11/20/2015 acetaminophen (TYLENOL) tablet 650 mg 650 mg, oral, EVERY 4 HOURS PRN, Starting on Thu11/19/15 at 1146, Until Thu11/20/15 at 1302, Pain, Routine, On Unit 0114 (Given - Provid er: Estelle Card RN) HYDROmorphone (DILAUDID) tablet 2-4 mg 2-4 mg, oral, EVERY 4 HOURS PRN, Starting on Thu11/19/15 at 1146, Until Thu11/20/15 at 1302, Pain, Routine, On Unit 1436 (Given - Provider: Rigoberto Narvaez RN) HYDROmorphone (PF) (DILAUDID) 1 mg/mL injection 0.2-0.4 mg 0.2-0.4 mg, intravenous, EVERY 4 HOURS PRN, Starting on Thu11/19/15 at 1146, Until Thu11/20/15 at 1302, Pain, Routine, On Unit 1211 (Given - Provider: Rigoberto Narvaez RN) HYDROmorphone (PF) (DILAUDID) 1 mg/mL injection 0.2-1 mg (CANCELED) 0.2-1 mg, intravenous, EVERY 10 MINUTES PRN, Starting on Thu11/19/15 at 0938, Until Thu11/19/15 at 1141, Pain, Routine, Recovery (only) 1014 (Given - Provider: Lyndon Julien RN) ondansetron (PF) (ZOFRAN) injection 2-4 mg (CANCELED) 2-4 mg, intravenous, EVERY 6 HOURS PRN, Starting on Thu11/19/15 at 1146, Until Thu11/19/15 at 1719, Nausea, Routine, On Unit 1436 (Given - Provider: Rigoebrto Narvaez RN) documented in this encounter Orders Medications Ordered That Doroteo ht Not Have Been Administered Count Last Ordered Date First Ordered Date atropine 0.1 mg/mL syringe 0.5 mg 1 016 ceFAZolin (ANCEF) syringe 2 g 1 11/19/2015 diphenhydrAMINE (BENADRYL) i njection 6.25 mg 1 11/19/2015 enoxaparin (LOVENOX) injection 40 mg 1 11/04 HYDROmorphone (DILAUDID) tablet 2 mg 1 11/04 metoCLOPramide (REGLAN) injection 10 mg 1 0 11/19/2015 nalOXone (NARCAN) injection 0.2 mg 1 2015 ondansetron (PF) (ZOFRAN) injection 4 mg 2 11/19/2015 senna (SENOKOT) tablet 1 Tab 1 11/19/2015 Nursing Count Last Ordered Date First Orde red Date APPLY WARMING BLANKET 1 11/19/[address] SEQUENTIAL COMPRESSION DEVICE 1 11/18 Admission Count Last Ordered Date First Orde red Date STATUS: INPATIENT DOSA/DOPA DAY OF SURGERY/PROCEDURE ADMISSION 1 11/19/2015 Transfer Count Last Ordered Date First Orde red Date NOTIFY PPS OF DISCHARGE COMPLETE 1 11/20/19 16 NOTIFY PPS PATIENT TRANSFERRED OUT OF PACU 1 11/19/2015 PPS NOTIFICATION OF PATIENT ARRIVAL ON UNIT 1 11/19/2015 Discharge Count Last Ordered Date First Orde red Date DISCHARGE PATIENT 1 11/20/2015 documented in this encounter Care Teams Manager Women Relationship Specialty Start Date End Date Faizan Bhakta MD PCP - General 08/18/13 documented as of this encounter
--- OUTSIDE RECORDS SUMMARY | 2024-02-29 15:47 | XMS_ITS | Encounter Summary ---
Author Organization [facility] Address [address] [place] [address] Care Team Providers Care Ornamental Bronze Worker Name Role Phone Faizan Bhakta MD Primary Care Provider Unav ailable Reason for Visit * Reason Onset Date Comments Other 10/05/2014 Encounter Details Date Type Department Care Team (Late st Contact Info) Description 10/05/2014 Telephone [facility] Sports Medicine Program - [address] [place] [address] Caesar Ferr[place] [address] Other Social History Tobacco Use Types Packs/Day Years [...] Answer Entry Date Author Yes 11/02/2012 4:00 KAYLEET Papito Ho RN documented in this encounter Miscellaneous Notes * Telephone Encounter - [place] - 10/05/2014 0917 EDT Ashley, a patient of Dr. Katz whom Dr. Ferraro gave an AC injection to, called to report that as ofnow, [she] believes the shot is working. I told her I would pass the message to Dr. Katz, with whom she was supposed to follow up by phonetwo weeks after the injection. Chad Ag 10/05/2014 9:18 documented in this encounter Plan of Treatment Not on file documented as of this encounter Visit Diagnoses Not on filedocumented in this encounter Care Teams Ornamental Bronze Worker Relationship Specialty Start Date End Date Faizan Bhakta MD PCP - General 08/18/13 documented as of this encounter
--- OUTSIDE RECORDS SUMMARY | 2024-02-29 15:47 | XMS_ITS | Encounter Summary ---
Author Organization [facility] Address [address] [place] [id number] Care Team Providers Care Contract Associate Manager Name Role Phone Faizan Bhakta MD Primary Care Provider Unav ailable Reason for Visit * Reason Onset Date Comments Appointment Related 05/20/2016 PATIENT WAS A NO SHOW FOR DR GARZA ON 05/20/16 Encounter Details Date Type Department Care Team (Late st Contact Info) Description 05/20/2016 Telephone Vascular Surgery and Endovascular Therapy - [address] [phone] Tony Garza MD [address] [place] [address], [address] [place] [address] Appointment Related (PATIENT WAS A NO SHOW FOR DR GARZA ON 05/20/16) Social History Tobacco Use Types Packs/Day Years [...] Date of Assessment Author No 11/19/2015 12:00 KAYLEET Estevan Narvaez, RN * Are you blind or do [...] Estevan Cornejo RN documented in this encounter Miscellaneous Notes * Telephone Encounter - Yarelis Estevez - 05/27/2016 1036 EST Called and left a message with the patient in regard to her missed appointment on 05/20/16. If she would like to reschedule the vascular surgery number was left for her. * Telephone Encounter - [place] - 05/20/2016 1635 EST PATIENT WAS A NO SHOW FOR DR GARZA ON 05/20/16 documented in this encounter Plan of Treatment Not on file documented as of this encounter Visit Diagnoses Not on filedocumented in this encounter Care Teams Contract Associate Manager Relationship Specialty Start Date End Date Faizan Bhakta MD PCP - General 08/18/13 documented as of this encounter
--- OUTSIDE RECORDS SUMMARY | 2024-02-29 15:47 | XMS_ITS | Referral Summary ---
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 Atherosclerosis of jamul ar teries of extremity with intermittent claudication ([facility]) 09/09/2012 Overview (01/04/2015): ICD10 Update Auto Replacement Chronic right shoulder pain 04/27/2012 Social History Tobacco Use Types Packs/Day Years Used Date Smoking Tobacco: Former Cigarettes 0.2 20 0 10/30/1992 - 10/30/2012 Comments:quit date was summe r 2012 Alcohol Use Standard Drinks/Week Comments Yes 0 (1 standard drink = 0.6 oz pur e alcohol) Once or twice a year Comments Unknown Sex and Gender Information Value Date Recorded Sex Assigned at Not on file Legal Sex Female 18:15 EST Gender Identity Not on file Sexual Orientation Not on file Last Filed Vital Signs Vital Sign Reading [...] Body Mass Index 21.45 11/19/2015 1200 EDT Functional Status * Are you deaf or [...] Author No 11/29/2015 13:29 Estevan Cornejo RN Mental Status * Because of a physical, mental, or emotional condition, does this person have serious difficulty concentrating, remembering, or making decisions? Answer Entry Date Author No 11/29/2015 13:29 Estevan Cornejo RN Plan of Treatment Not on file Procedures Procedure Name Priority Date/Time Associated Diagnosis Comments HEPATITIS C AB W REFLEX TO HCV RNA BY PCR Routine 03/21/2022 17:10 EST from Last 3 Months or Most Recently Relevant to Health Maintenance Results * HEPATITIS C AB W REFLEX TO HCV RNA BY PCR (03/21/2022 17:10 EST) Hep C Antibody Negative Negative 03/24/2022 10:21 EST [facility] Blood VENOUS BLOOD / Unknown 03/21/2022 17:10 EST 03/23/2022 17:09 EST us Provider Outr Resulting Lab CHEMISTRY & BLOOD GA S ORDERABLES Final Result [facility] [address] [place] [id number] from Last 3 Months or Most Recently Relevant to Health Maintenance Insurance [facility] Advance Directives For more information, please contact: [phone] Documents on File Type Date Recorded Patient Electric Motor 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
--- OUTSIDE RECORDS SUMMARY | 2024-02-29 15:47 | XMS_ITS | Encounter Summary ---
Author Organization [facility] Address [address] [place] [address] Care Team Providers Care Sprinkler Fitter Apprentice Name Role Phone Faizan Bhakta MD Primary Care Provider Unav ailable Reason for Referral * PT/OT/ST (Routine) - Closed Specialty Diagnoses / Procedures Referred By Greg sandoval Referred To Contact Diagnoses TOS (thoracic outlet syndrome) Monica Rashid APRN Referral ID Status Reason Start Date Expiration Date V isits Requested Visits Authorized [id number] Closed Specialty Services Required 11/29/2015 1 1 Question Answer Reason for Request: status post right first rib resection 11/19/15 for thoracic outlet syndrome, neurogenic. Please evaluate and treat for range of motion Reason for Visit * Reason Comments Post-OP Follow Up 1 week postop right 1st rib resection 11/19/15 Encounter Details Date Type Department Care Team (Latest Contact Info) Description 11/29/2015 13:30 EDT Office Visit Vascular Surgery and Endovascular Therapy - [address] [phone] Monica Rashid APRN Nurse Practitioner, [facility] Mp5 Vasc Surg TOS (thoracic outlet syndrome) (Primary Dx) Social History Tobacco Use Types Packs/Day Years [...] Left Pulse 80 11/29/2015 1328 EDT Temperature - - Respiratory Rate - - Oxygen Saturation - - Inhaled Oxygen Concentration - - Weight - - Height - - Body Mass Index - - documented in this encounter Functional Status * [...] Estevan Cornejo RN documented in this encounter Patient Instructions * Patient Instructions* Monica Rashid NP - 11/29/2015 13:57 EDT Please begin Physical Therapy to increase your arm mobility. Do not drive for at least 2 more weeks. Your right arm should be able to move without pain before you resume driving. documented in this encounter Progress Notes * Monica Rashid NP - 11/29/2015 1431 EDT SUBJECTIVE: Ms Kee comes in today for a postoperative exam following transaxillary 1st rib resection and scalenectomy on the right side for neurogenic thoracic outlet syndrome. Surgery was 11/19/2015, making her postoperative day 9 today. Ashley has been treating her pain with Tylenol. She does not tolerate narcotics due to nausea and vomiting. She is overall feeling well. She is not using her sling except when she is out doing errands. She is asking when she can drive and when she can start physical therapy. As far as resolution of her neurogenic symptoms, she does find that she has some pain in the elbow and along the posterior forearm. She has tingling and numbness on the ventral surface of the right arm. She has had no shortness of breath postoperatively. OBJECTIVE: Kayla looks well, is awake and oriented x3, alert and engaged. The incision is closed with Dermabond and it is intact without erythema or ecchymosis. The right radial pulse is palpable. The arm itself is not particularly edematous. The right hand cathead worker strength is 5/5. The long thoracic nerve is intact on physical exam. IMPRESSION AND PLAN: Ms Ashley Kee is a 55-year-old woman now 9 days out from her transaxillary 1st rib resection and scalenectomy performed for neurogenic thoracic outlet syndrome. We discussed several issues: 1. She will begin physical therapy. A prescription was given to her and she already has a local physical therapist in her home area. 2. She will continue to observe the incision and the Dermabond glue will eventually become inert and that dressing will peel off on its own. 3. Driving. Ashley should not drive until at least 4 weeks and then when she feels that she has goodrange of motion with no stiffness or pain. She is not taking narcotics, so we do not have to worry about that. 4. For her followup, she will come back to see Dr Garza in 6 months. At that time, her rehab will be complete and we will be able to ascertain if she truly did get relief from the surgery. She will contact us with any concerns prior to that time. documented in this encounter Plan of Treatment Scheduled Referrals Name Type Priority Associated Diagnoses Orde r Schedule AMB CONS/FOLLOW UP PHYSICAL THERAPY Outpatient Referral Routine TOS (thoracic outlet syndrome) Ordered: 11/29/2015 documented as of this encounter Visit Diagnoses Diagnosis TOS (thoracic outlet syndrome)- Primary Brachial plexus lesions documented in this encounter Discontinued Medications Medication Sig Discontinue Reason Start Date End Da te HYDROmorphone (DILAUDID) 2 mg tablet Take 1 Tab by mouth every 4 hours as needed for Pain. Daily Max: 12 mg Patient Stopped Taking 11/20/2015 11/29/2015 docusate sodium (COLACE) 100 mg capsule Take 1 Cap by mouth 2 times daily as needed for Constipation. Patient Stopped Taking 11/20/2015 11/29/2015 ondansetron (ZOFRAN-ODT) 4 mg disintegrating tablet Take 1 Tab by mouth every 8 hours as needed for Nausea. Patient Stopped Taking 11/20/2015 11/29/2015 documented as of this encounter Care Teams Sprinkler Fitter Apprentice Relationship Specialty Start Date End Date Faizan Bhakta MD PCP - General 08/18/13 documented as of this encounter
--- OUTSIDE RECORDS SUMMARY | 2024-02-29 15:47 | XMS_ITS | Encounter Summary ---
Author Organization [facility] Address [address] [place] [address] Care Team Providers Care Religious Education Teacher Name Role Phone Faizan Bhakta MD Primary Care Provider Unav ailable Encounter Details Date Type Department Care Team (Late st Contact Info) Description 08/24/2023 Lab Requisition [facility] Pathology & Laboratory Medicine - [address] [address] Oj Higgins MD [address] [place] [address], [address] [place], [place] [phone] Encounter for screening for malignant neoplasm of colon Social History Tobacco Use Types Packs/Day Years [...] Assessment Author No 11/19/2015 12:00 Estevan Cornejo NEYDA * Do you have difficulty dressing or [...] Procedure Name Priority Date/Time Associated Diagnosis Comments SURGICAL PATHOLOGY Today 08/24/2023 10 :34 EDT Encounter for screening for malignant neoplasm of colon documented in this encounter Results * SURGICAL PATHOLOGY (08/24/2023 10:34 EDT) Note to Patient The following pathology results have been interpreted by your pathologist and may be available to you before your health provider has had the opportunity to review them. Please allow time for your provider to receive these results and explore management options, if applicable. 08/25/2023 17:16 [facility] Final Diagnosis A. COLON, 35 CMS, POLYPS X2, BIOPSY: - Hyperplastic polyps. B. COLON, 25 CMS, POLYP, BIOPSY: - Sessile serrated adenoma. 08/25/2023 17:16 [facility] Attestation By the signature below, the attending physician certifies that they have 1) personally conducted a gross and/or microscopic examination of the described specimen(s), and/or personally interpreted the results of laboratory testing of the described specimen(s), and 2) personally rendered or confirmed the above diagnosis. 08/25/2023 17:16 [facility] at 1716 Clinical History Hx polyps, polyps 08/25/2023 17:16 EDT [facility] Gross Description A. Received in formalin labelled with proper patient identification (initials I, D) and 1. Polyp at 35 cm x 2 are 2 najera tissues (0.3 x 0.2 x 0.1 cm and 0.5 x 0.5 x 0.1 cm). Entirely submitted in A1. B. Received in formalin labelled with proper patient identification (initials I, D) and 2. Polyp at 25 cm are two najera tissue fragments (0.7 x 0.4 x 0.2 cm in aggregate). Entirely submitted in B1. ABRIL WELLS(ASCP) 08/25/2023 7:59 08/25/2023 17:16 EDT [facility] Performing Lab [facility] 08/25/2023 17:16 EDT [facility] Scanned Images 08/25/2023 17:16 EDT [facility] Tissue POLYP OF COLON / Unknown 08/24/2023 10:34 EDT 08/24/2023 20:52 EDT Tissue specimen (specimen) POLYP OF COLON / Unknown 08/24/2023 10:34 EDT 08/24/2023 20:52 EDT us Oj Higgins MD PATHOLOGY ORDERABLES Final Resu lt [facility] [address] [place] [address] documented in this encounter Visit Diagnoses Diagnosis Encounter for screening for malignant neoplasm of colon Special screening for malignant neoplasms, colon documented in this encounter Care Teams Religious Education Teacher Relationship Specialty Start Date End Date Faizan Bhakta MD PCP - General 08/18/13 documented as of this encounter
--- OUTSIDE RECORDS SUMMARY | 2024-02-29 15:47 | XMS_ITS | Encounter Summary ---
Author Organization [facility] Address [address] [place] [address] Care Team Providers Care Anesthesia Director Name Role Phone Faizan Bhakta MD Primary Care Provider Unav ailable Reason for Referral * PT/OT/ST (Routine) - Closed Specialty Diagnoses / Procedures Referred By Conttrisha t Referred To Contact Diagnoses Tendinitis of right pectoralis major Elia Reyes MD Phone: tel: fax: Referral ID Status Reason Start Date Expiration Date V isits Requested Visits Authorized [id number] Closed Specialty Services Required 03/12/2015 1 1 Question Answer Reason for Request: right axillary pain assoicate with pectoral muscle Scheduling Comments (optional ? describe specific scheduling needs if applicable): 1-2 weeks Comments Evaluate and treat Reason for Visit * Reason Comments Mass Encounter Details Date Type Department Care Team (Late st Contact Info) Description 03/12/2015 14:45 EST Office Visit [facility] General Surgery - [place] [address] [facility] [address] [place] [address] Elia Reyes MD [address] [facility] [address] [address] Axillary mass, right (Primary Dx); Tendinitis of right pectoralis major Social History Tobacco Use Types Packs/Day Years [...] Sign Reading Time Taken Comments Blood Pressure 105/68 03/12/2015 1442 EST Pulse 88 03/12/2015 1442 EST Temperature - - Respiratory Rate - - Oxygen Saturation - - Inhaled Oxygen Concentration - - Weight 61.2 kg (135 lb) 03/12/2015 1442 EST Height 161.3 cm (5' 3.5) 03/12/2015 1442 EST Body Mass Index 23.54 03/12/2015 1442 EST documented in this encounter Mental Status * Because of a physical, mental, or emotional condition, do you have serious difficulty concentrating, remembering, or making decisions? (5 years old or older) Answer Entry Date Author Yes 11/02/2012 4:00 EDT Papito Ho RN documented in this encounter Progress Notes * Elia Reyes MD - 03/12/2015 1512 EST [facility] H[facility]ORY AND PHYSICAL EXAMINATION Date of Service: 03/12/2015 PROBLEM: Axillary mass and pain, right SUBJECTIVE: The patient is a 54-year-old female who was referred for right axillary pain and a mass. She states she first noted swelling in that area as of September and she believes has gotten larger. She did see a surgeon at [facility]. She had an ultrasound, which was normal. She also states the surgeon saw no abnormality except for a mild lymph node. However, she did not have that much tacho inthe surgeon and wanted to get a second opinion. She does believe the area is still somewhat painful. She also has had chronic right shoulder discomfort. She has undergone 2 previous surgeries in [address] Burton. She is not anything recently done in that area. She does not see Dr Rey a regular basis. She also reports that her mammogram has been normal. There is no history of breast cancer. She is not palpate any lumps or masses anywhere else, nor has she felt any lumps or masses in her breast. Past Medical History Diagnosis Date ??? Wears [...] bypass using a 14 x 7 mm Haskins-Aiden graft (Dr. Garza) ??? Vascular surgery 11/01/2012 aortobifemoral bypass family history includes Heart Disease in her father and paternal grandfather. There is no history of AAA or Stroke. Current Outpatient Prescriptions Medication Sig Dispense Refill ??? acetaminophen (TYLENOL) 500 mg tablet Take 1-2 Tabs by mouth every 6 hours as needed for Pain. ??? aspirin 81 mg EC tablet Take 1 Tab by mouth daily. 30 Tab 0 No current facility-administered medications for this visit. Ibuprofen; Morphine; and Percocet REVIEW OF SYSTEMS: No flowsheet data found. 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 She had JINNY/BSO at age 37. OBJECTIVE: On physical exam, she is no apparent distress and well-nourished BP 105/68 mmHg Pulse 88 Ht 161.3 cm (63.5) Wt 61.236 kg (135 lb) BMI 23.54 kg/m2 105/68 HEENT: Normocephalic Atraumatic older than stated age. EYES: EOMI no adenopathy, trachea midline and normal to palpitation EARS, NOSE, MOUTH AND THROAT: tongue & uvula midline, mucus membranes moist RESPIRATORY: clear to auscultation bilaterally BREAST: normal appearance, no masses or tenderness, Inspection negative, No nipple retraction or dimpling, No nipple discharge or bleeding, No axillary or supraclavicular adenopathy, however the right axilla is very sensitive especially along the pectoralis muscle. No masses or nodules are palpable. CARDIAC: regular rate and rhythm ABDOMEN: Bowel sounds present and No tenderness or masses, organomegaly or peritoneal signs EXTREMITIES: sry skin warm NEUROLOGIC/PSYCHIATRIC: grossly intact normal affect ASSESSMENT: Right Axillary pain likely secondary to pectoral muscle tendinitis. No mass or lymphadenopathy found. PLAN: 1. First I repeated an ultrasound of the patient's axilla. All I have is reports, but did not actually have any of the images. I did an ultrasound using a 12 MHz probe here in my office, but the axilla is normal. I in fact, do not even see any lymph nodes or lymphadenopathy. She seems most tender along the pectoral muscle. Nor do I see evidence of a lipoma. 2. I reassured the patient I see no evidence of lymphadenopathy or a mass. However, she is quite tender along the muscle. I suspect that this may still all be related to her shoulder discomfort, perhaps even a pectoral muscle tendinitis. 3. I would like to refer her to physical therapy. She does use a group in [place]. Therefore, Ioffered the patient another followup in 4 months to recheck the area. documented in this encounter Plan of Treatment Scheduled Referrals Name Type Priority Associated Diagnoses Orde r Schedule AMB CONS/FOLLOW UP PHYSICAL THERAPY Outpatient Referral Routine Tendinitis Of Right Pectoralis Major Ordered: 03/12/2015 documented as of this encounter Visit Diagnoses Diagnosis Axillary mass, right- Primary Tendinitis of right pectoralis major documented in this encounter Discontinued Medications Medication Sig Discontinue Reason Start Date End Da te docusate sodium (COLACE) 100 mg capsule Take 1 Cap by mouth 2 times daily as needed for Constipation. Therapy completed 11/05/2012 03/12/2015 metoprolol (LOPRESSOR) 25 mg tablet Take 0.5 Tabs by mouth 2 times daily. Therapy completed 10/18/2012 03/12/2015 PEG 3350-Electrolytes (MIRALAX) 17 gram packet Take 17 g by mouth daily as needed (constipation). Therapy completed 11/06/2012 03/12/2015 senna (SENOKOT) 8.6 mg tablet Take 1 Tab by mouth at bedtime as needed for Other (constipation). Therapy completed 11/06/2012 03/12/2015 simvastatin (ZOCOR) 20 mg tablet Take 2 Tabs by mouth daily. Therapy completed 10/18/2012 03/12/2015 documented as of this encounter Care Teams Anesthesia Director Relationship Specialty Start Date End Date Faizan Bhakta MD PCP - General 08/18/13 documented as of this encounter
--- OUTSIDE RECORDS SUMMARY | 2024-02-29 15:47 | XMS_ITS | Encounter Summary ---
Author Organization [facility] Address [address] [place] [address] Care Team Providers Care Boilermaker Pipe Fitter Name Role Phone Faizan Bhakta MD Primary Care Provider Unav ailable Reason for Visit * Reason Comments Follow-up discuss 1st rib rese ction Encounter Details Date Type Department Care Team (Late st Contact Info) Description 10/04/2015 13:00 EDT Office Visit Vascular Surgery and Endovascular Therapy - [address] [address] Tony Garza MD [address] [place] [address], [address] [place] [id number] TOS (thoracic outlet syndrome) (Primary Dx) Social [...] Sign Reading Time Taken Comments Blood Pressure 102/54 10/04/2015 1228 EDT left a rm BP only per pt Pulse 80 10/04/2015 1228 EDT Temperature - - Respiratory Rate - [...] or shopping? Answer Date of Assessment Author Yes 10/04/2015 12:29 EDT documented as of this encounter Mental Status * Because of a physical, mental, or emotional condition, does this person have serious difficulty concentrating, remembering, or making decisions? Answer Entry Date Author No 10/04/2015 12:29 EDT Eduar Ho RN documented in this encounter Progress Notes * Tony Garza MD - 10/04/2015 1949 EDT [facility] VASCULAR SURGERY PROGRESS / FOLLOWUP NOTE - 10/04/2015 SUBJECTIVE: Ms Kee is here for her right-sided thoracic outlet syndrome. She is a patient I have done an aortobifemoral bypass on in the past. I have also seen her for thoracic outlet in the past. She has been worked up fairly extensively both for her shoulder and neck, which have not really shown much. She has had a positive nerve conduction study for a neurogenic thoracic outlet syndrome. OBJECTIVE: Her exam certainly fits with that she has a positive upper extremity tension test as well as Peyman test. She has undergone 4 fairly extensive sessions of physical therapy with minimal improvement. ASSESSMENT AND PLAN: We had a long talk about this. I explained to her that this is a difficult diagnosis, but there is not much else I can offer her except surgery. She is quite eager to go that route, so we will get that scheduled and done as soon as we can. Tony Garza MD 01 57 PM - Tony Garza MD kn Dictation ID: [id number] cc: Faizan Bhakta MD, [address], [address] [facility], [place] [address] * Tony Garza MD - 10/04/2015 1358 EDT This office note has been dictated. documented in this encounter Plan of Treatment Not on file documented as of this encounter Visit Diagnoses Diagnosis TOS (thoracic outlet syndrome)- Primary Brachial plexus lesions documented in this encounter Care Teams Boilermaker Pipe Fitter Relationship Specialty Start Date End Date Faizan Bhakta MD PCP - General 08/18/13 documented as of this encounter
--- OUTSIDE RECORDS SUMMARY | 2024-02-29 15:47 | XMS_ITS | Encounter Summary ---
Author Organization [facility] Address [address] [place] [address] Care Team Providers Care Vinyl Cutter Name Role Phone Faizan Bhakta MD Primary Care Provider Unav ailable Reason for Referral * Radiology Services (Routine/Next Available) - Closed Specialty Diagnoses / Procedures Referred By Contac t Referred To Contact Diagnoses Shoulder pain Procedures MSK US SHOULDER Caesar Ferraro MD Phone: tel: fax: Referral ID Status Reason Start Date Expiration Date Visits Re quested Visits Authorized [id number] Closed 09/21/2014 1 1 Reason for Visit * Reason Onset Date Comments Other 09/21/2014 Encounter Details Date Type Department Care Team (Late st Contact Info) Description 09/21/2014 Orders Only [facility] - [address] [address] Caesar Freraro MD [address] [place] [phone] Shoulder pain (Primary Dx) Social History Tobacco Use Types [...] Papito Ho RN documented in this encounter Plan of Treatment Not on file documented as of this encounter Procedures Procedure Name Priority Date/Time Associated Diagnosis Comments MSK US SHOULDER Routine 10/03/2014 10:00 EDT Shoulder pain documented in this encounter Results * MSK US SHOULDER (10/03/2014 10:00 EDT) Anatomical Region Laterality Modality Other 10/03/2014 10:0 0 EDT Narrative 10/03/2014 10:00 EDT Non Reportable Exam Procedure Note SANDING LINE OPERATOR, IMAGING - 10/03/2014 Non Reportable Exam Caesar Ferraro MD IMG US ORDERABLES Final Re sult documented in this encounter Visit Diagnoses Diagnosis Shoulder pain- Primary Pain in joint, shoulder region documented in this encounter Care Teams Vinyl Cutter Relationship Specialty Start Date End Date Faizan Bhakta MD PCP - General 08/18/13 documented as of this encounter
--- OUTSIDE RECORDS SUMMARY | 2024-02-29 15:47 | XMS_ITS | Encounter Summary ---
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) Social History Tobacco Use Types [...] Eduar Ho RN documented in this encounter Plan of Treatment Not on file documented as of this encounter Procedures Procedure Name Priority Date/Time Associated Diagnosis Comments PRE-OP TYPE AND SCREEN Routine 11/08/2015 14:27 EDT Thoracic outlet syndrome associated with cervical rib COMPLETE BLOOD COUNT Routine 11/08/2015 14:27 EDT Thoracic outlet syndrome associated with cervical rib BUN Routine 11/08/2015 14:27 EDT Thoracic outlet syndrome associated with cervical rib CREATININE Routine 11/08/2015 14:27 EDT Thoracic outlet syndrome associated with cervical rib ELECTROLYTES Routine 11/08/2015 14:27 EDT Thoracic outlet syndrome associated with cervical rib documented in this encounter Results * PRE-OP BLOOD BANK DRAW (11/08/2015 14:27 EDT) Pre-Op Blood Bank Lab Draw SPECIMEN RECEIVED ACCEPTABLE 11/08/2015 15:44 EDT [facility] BLOOD SPECIMEN / Unknown 11/08/2015 14:27 EDT 11/08/2015 14:43 EDT us Monica Rashid PAPIER MACHE MOLDER BLOOD BANK TESTS Final Resul t [facility] [address] [place] [id number] * ELECTROLYTES (11/08/2015 14:27 EDT) Sodium 141 136 - 145 mEq/L 11/08/2015 15:32 EDT [facility] Potassium 4.0 3.5 - 5.0 mEq/L 11/08/2015 15:32 EDT [facility] Chloride 103 96 - 110 mEq/L 11/08/2015 15:32 EDT [facility] CO2 24 24 - 32 mEq/L 11/08/2015 15:32 EDT [facility] Blood specimen (specimen) BLOOD SPECIMEN / Unknown 11/08/2015 14:27 EDT 11/08/2015 14:43 EDT us Monica Rashid PAPIER MACHE MOLDER CHEMISTRY & BLOOD GAS ORDERA BLES Final Result [facility] [address] [place] [address] * (ABNORMAL) BUN (11/08/2015 14:27 EDT) BUN 6(L) 10 - 26 mg/dl 11/08/2015 15:32 EDT [facility] Blood specimen (specimen) BLOOD SPECIMEN / Unknown 11/08/2015 14:27 EDT 11/08/2015 14:43 EDT Monica Rashid APRN CHEMISTRY & BLOOD GAS ORDERA BLES Final Result Performing Organization Address City/[facility]/ZIP Co de Phone Number [facility] [address] [place] [address] * CREATININE (11/08/2015 14:27 EDT) Creatinine 0.74 0.52 - 1.04 mg/dl 11/08/2015 15:32 EDT [facility] GFR, Calculated 91 >60 ml/min/1.7 3m2 11/08/2015 15:32 EDT [facility] Comment: eGFR calculated using CKD-EPI equation for non Americans. Multiply eGFR by 1.16 for Americans. Blood specimen (specimen) BLOOD SPECIMEN / Unknown 11/08/2015 14:27 EDT 11/08/2015 14:43 EDT Monica Rashid APRN CHEMISTRY & BLOOD GAS ORDERA BLES Final Result [facility] [address] [place] [address] * (ABNORMAL) HEMAGRAM (11/08/2015 14:27 EDT) WBC 7.85 4.0 - 12.4 K/cmm 11/08/2015 15:01 EDT [facility] RBC 5.08(H) 3.86 - 5.04 M/cmm 11/08/2015 15:01 EDT [facility] Hemoglobin 14.9 11.6 - 15.2 gm/dl 11/08/2015 15:01 EDT [facility] HCT 43.9 34.9 - 44.4 % 11/08/2015 15:01 EDT [facility] MCV 86 81 - 98 fl 11/08/2015 15:01 T [facility] MCH 29.3 26.7 - 33.3 pg 11/08/2015 15:01 T [facility] MCHC 33.9 32.1 - 35.9 gm/dl 11/08/2015 15:01 T [facility] RDW-CV 13.4 11.7 - 14.6 % 11/08/2015 15:01 T [facility] RDW-SD 42.2 37.6 - 50.3 fl 11/08/2015 15:01 T [facility] PLT 258 141 - 377 K/cmm 11/08/2015 15:01 [facility] MPV 9.1(L) 9.5 - 12.7 fl 11/08/2015 15:01 [facility] Blood specimen (specimen) BLOOD SPECIMEN / Unknown 11/08/2015 14:27 EDT 11/08/2015 14:43 EDT us Monica Rashid PAPIER MACHE MOLDER HEMATOLOGY & PF4 ORDERABLES Final Result [facility] [address] [place] [address] documented in this encounter Visit Diagnoses Diagnosis Thoracic outlet syndrome associated with cervical rib- Primary documented in this encounter Care Teams Key Account Executive Relationship Specialty Start Date End Date Faizan Bhakta MD PCP - General 08/18/13 documented as of this encounter
--- OUTSIDE RECORDS SUMMARY | 2024-02-29 15:47 | XMS_ITS | Encounter Summary ---
Author Organization [facility] Address [address] [place] [address] Care Team Providers Care Web Site Admin Name Role Phone Faizan Bhakta MD Primary Care Provider Unav ailable Reason for Visit * Reason Comments Shoulder Pain right Encounter Details Date Type Department Care Team (Late st Contact Info) Description 09/21/2014 14:20 EDT Office Visit [facility] Sports Medicine Program - [address] [place] [address] Caesar Ferraro MD [address] [place] [address] Chronic right shoulder pain (Primary Dx) Discharge Disposition: Auto Discharge Social [...] Sign Reading Time Taken Comments Blood Pressure - - Pulse - - Temperature - - Respiratory Rate - - Oxygen Saturation - - Inhaled Oxygen Concentration - - Weight 56.7 kg (125 lb) 09/21/2014 1436 EDT Height 165.1 cm (5' 5) 09/21/2014 1436 EDT Body Mass Index 20.8 09/21/2014 1436 EDT documented in this encounter Mental Status * Because of a physical, mental, or emotional condition, do you have serious difficulty concentrating, remembering, or making decisions? (5 years old or older) Answer Entry Date Author Yes 11/02/2012 4:00 EDT Papito Ho RN documented in this encounter Discharge Diagnoses Diagnosis 719.41 JOINT PAIN-SHLDER[ICD-9-CM] 338.29 OTHER CHRONIC PAIN[ICD-9-CM] documented in this encounter Discharge Disposition Disposition Code Departure Means Destination Auto Discharge documented in this encounter Progress Notes * Caesar Ferraro MD - 09/21/2014 1639 EDT Chief Complaint Patient presents with ??? Shoulder Pain right SUBJECTIVE: Ashley Kee is a 54 y.o. female who present for a ultrasound guided injection into her right AC joint. Patient has a diagnosis of right shoulder pain, chronic. She has had an aggressive distal clavicle excision by Dr. Burton. She also has EMG findings consistent with thoracic outlet syndrome. She has seen Dr. Raymond who suggested a rib resection and she has declined that for now. 4 out of 10 pain. At worst is 10 out of 10. Risks, benefits and alternatives were discussed with the patient and consent was obtained. The final Verification/time out immediately prior to incision/procedure has been conducted by me and membersof the procedural team as appropriate to their involvement in the procedure. The patient???s identity, procedure, and when applicable the: side/site, patient position, availability of implants and any special equipment or special requirements was verbally confirmed prior to the procedure PROCEDURE NOTE: Right shoulder AC joint injection using musculoskeletal ultrasound After verbal consent given, area of superior aspect of shoulder was palpated and landmarks were noted, prepped with isopropyl alcohol. The AC joint was visualized and noted to be very wide. No spurs. Scar tissue noted. Under sterile conditions, AC joint was infused with 1 cc 2% lidocaine, 1 cc 0.5% marcaine and 1 cc 40 mg/cc kenalog without resistance. The needle tip was noted in the joint space. The joint capsule was noted to distend during injection. Cleansed with isopropyl alcohol and bandaged. The patient tolerated the procedure well. After care was reviewed including icing, use of NSAIDs prn and activity modification. Will follow up by phone with Dr. Alfred Katz in 2 weeks. I discussed all of the above verbally with patient, no barriers to understanding. The patient indicated understanding and agrees to the above plan. Caesar Ferraro M.D. 09/21/2014 16:40 * Chad Ag - 09/21/2014 1507 EDT I. Patient is here for intraarticular injection-Lidocaine 2% 1. Med given in right shoulder by intraarticular route. 2. Med lot number: [id number] 3. Exp date: 11.05.2015 Total dosage in vial: 20ml Total dosage administered: 1cc Total dosage of waste: multi dose I. Patient is here for intraarticular injection-sensorcaine .5% 1. Med given in right shoulder by intraarticular route. 2. Med lot number: [id number] 3. Exp date: 07.06.2015 Total dosage in vial: 10ml Total dosage administered: 1cc Total dosage of waste: 9cc I. Patient is here for intraarticular injection-Kenalog 40 1. Med given in right shoulder by intraarticular route. 2. Med lot number: [id number] 3. Exp date: Total dosage in vial: 5ml Total dosage administered: 1cc Total dosage of waste: multi dose Chad Ag 09/21/2014 15:08 documented in this encounter Plan of Treatment Not on file documented as of this encounter Visit Diagnoses Diagnosis Chronic right shoulder pain- Primary Pain in joint, shoulder region documented in this encounter Care Teams Web Site Admin Relationship Specialty Start Date End Date Faizan Bhakta MD PCP - General 08/18/13 documented as of this encounter
--- OUTSIDE RECORDS SUMMARY | 2024-02-29 15:47 | XMS_ITS | Encounter Summary ---
Author Organization [facility] Address [address] [place] [address] Care Team Providers Care Armor Reconnaissance Specialist Name Role Phone Faizan Bhakta MD Primary Care Provider Unav ailable Encounter Details Date Type Department Care Team (Late st Contact Info) Description 09/11/2015 Results Only [facility] [phone] Cesar Kingston MD [address] [place] [address] Social History Tobacco Use Types Packs/Day Years [...] Procedure Name Priority Date/Time Associated Diagnosis Comments MR EXTREMITY SHOULDER W CONTRAST 09/11/2015 17:17 EDT FL GUIDE LOCATION, ASPIRATION, INJECTION, BIOPSY 09/11/2015 15:53 EDT documented in this encounter Results * MR EXTREMITY SHOULDER W CONTRAST (09/11/2015 17:17 EDT) Anatomical Region Laterality Modality Other 09/11/2015 17:1 7 EDT 09/12/2015 17:19 EDT Narrative 09/12/2015 17:19 EDT MR EXTREMITY SHOULDER W CONTRAST ??09/11/2015 5:17 PM Clinical History/Comments: Right shoulder pain.. Comparison: Right shoulder radiographs 08/22/2013 and 07/15/2011. Technique: An MR arthrogram of the right shoulder was obtained. Intra-articular contrast was administered. A 12 cm to 14 cm imaging [id number] utilized on the submitted sequences. Incorrect prescribed plane of imaging on the submitted ABER sequence. Findings: There is bursal sided fraying involving the anterior and mid fibers of the supraspinatus tendon at the level of the footprint, similar relative to the comparison MR examination performed 07/15/2011. No discrete tear is identified. There is mild infraspinous and subscapularis tendinosis without evidence of discrete tear. The teres minor tendon is intact. The rotator cuff muscle bellies demonstrate no evidence of significant atrophy or fatty infiltration. The long head of the biceps tendon is intact and normally positioned at the level of the bicipital groove and ru. Allowing for suboptimal positioning on the ABER images, no discrete labral tear is identified. There are postsurgical changes relating to prior excision of the distal clavicle, as manifested by susceptibility artifact related to micrometallic debris, as well as widening of the the acromioclavicular interval. There is no significant effacement of subacromial space structures. Impression: 1. Bursal sided fraying involving the anterior and mid fibers of the supraspinatus tendon at the level of the footprint, similar relative to the comparison MR examination performed 07/15/2011. No discrete tear is identified. 2. Mild infraspinatus and subscapularis tendinosis without evidence of discrete tear. 3. No labral tear identified. 4. Postsurgical changes relating to prior excision of the distal clavicle. I have personally reviewed the images and the above interpretation and agree with the findings. Procedure Note Orlando Voss MD - 09/12/2015 MR EXTREMITY SHOULDER W CONTRAST 09/11/2015 5:17 PM Clinical History/Comments: Right shoulder pain.. Comparison: Right shoulder radiographs 08/22/2013 and 07/15/2011. Technique: An MR arthrogram of the right shoulder was obtained. Intra-articular contrast was administered. A 12 cm to 14 cm imaging [id number] utilized on the submitted sequences. Incorrect prescribed plane of imaging on the submitted ABER sequence. Findings: There is bursal sided fraying involving the anterior and mid fibers of the supraspinatus tendon at the level of the footprint, similar relative to the comparison MR examination performed 07/15/2011. No discrete tear is identified. There is mild infraspinous and subscapularis tendinosis without evidence of discrete tear. The teres minor tendon is intact. The rotator cuff muscle bellies demonstrate no evidence of significant atrophy or fatty infiltration. The long head of the biceps tendon is intact and normally positioned at the level of the bicipital groove and ru. Allowing for suboptimal positioning on the ABER images, no discrete labral tear is identified. There are postsurgical changes relating to prior excision of the distal clavicle, as manifested by susceptibility artifact related to micrometallic debris, as well as widening of the the acromioclavicular interval. There is no significant effacement of subacromial space structures. Impression: 1. Bursal sided fraying involving the anterior and mid fibers of the supraspinatus tendon at the level of the footprint, similar relative to the comparison MR examination performed 07/15/2011. No discrete tear is identified. 2. Mild infraspinatus and subscapularis tendinosis without evidence of discrete tear. 3. No labral tear identified. 4. Postsurgical changes relating to prior excision of the distal clavicle. I have personally reviewed the images and the above interpretation and agree with the findings. us Cesar Kingston MD [facility] MRI ORDERABLES Final Result * FL GUIDE LOCATION, ASPIRATION, INJECTION, BIOPSY (09/11/2015 15:53 EDT) Anatomical Region Laterality Modality Other 09/11/2015 15:5 3 EDT 09/11/2015 17:24 EDT Narrative 09/11/2015 17:24 EDT FL GUIDE LOCATION, ASPIRATION, INJECTION, BIOPSY ??09/11/2015 3:53 PM Clinical History/Comments: Right shoulder pain.. Procedure: Right shoulder arthrogram under fluoroscopic guidance. Technique: The patient was met in the fluoroscopic suite where after proper identification; the risks, benefits, and alternatives to the procedure were explained in detail to the patient who gave informed oral and written consent to proceed. The patient was subsequently placed in supine position. A limited examination was performed and the appropriate site of entry on the Rightshoulder marked. The Rightshoulder was prepped and draped in the usual sterile fashion. A 1% lidocaine solution was infiltrated at the access site. Subsequently, under fluoroscopic guidance, using strict sterile technique, a 22-gauge spinal needle was advanced into the Right glenohumeral joint, and fluoroscopic confirmation was obtained by injecting approximately 2 cc of sterile Omnipaque 300 solution within the joint space. Following this, approx.10 mL of a sterile mix of 1:200 gadolinium mixed with epinephrine, 1% lidocaine, ??Omnipaque 300, and normal saline solution was injected into the Right glenohumeral joint space. The needle was removed and the shoulder was passively mobilized. Fluoro spot views were saved during the procedure. The patient tolerated the procedure well. There were no immediate complications. The patient was escorted to the MRI suite for followup shoulder MRI. The intra-articular contrast injection was performed by Dr. Jaime Dominguez, radiology fellow. Impression: 1. Successful fluoroscopically guided right glenohumeral joint arthrogram without complications. MR arthrogram to follow. Dr. Voss was present during the injection for the arthrogram. Procedure Note Orlando Voss MD - 09/11/2015 FL GUIDE LOCATION, ASPIRATION, INJECTION, BIOPSY 09/11/2015 3:53 PM Clinical History/Comments: Right shoulder pain.. Procedure: Right shoulder arthrogram under fluoroscopic guidance. Technique: The patient was met in the fluoroscopic suite where after proper identification; the risks, benefits, and alternatives to the procedure were explained in detail to the patient who gave informed oral and written consent to proceed. The patient was subsequently placed in supine position. A limited examination was performed and the appropriate site of entry on the Rightshoulder marked. The Rightshoulder was prepped and draped in the usual sterile fashion. A 1% lidocaine solution was infiltrated at the access site. Subsequently, under fluoroscopic guidance, using strict sterile technique, a 22-gauge spinal needle was advanced into the Right glenohumeral joint, and fluoroscopic confirmation was obtained by injecting approximately 2 cc of sterile Omnipaque 300 solution within the joint space. Following this, approx.10 mL of a sterile mix of 1:200 gadolinium mixed with epinephrine, 1% lidocaine, Omnipaque 300, and normal saline solution was injected into the Right glenohumeral joint space. The needle was removed and the shoulder was passively mobilized. Fluoro spot views were saved during the procedure. The patient tolerated the procedure well. There were no immediate complications. The patient was escorted to the MRI suite for followup shoulder MRI. The intra-articular contrast injection was performed by Dr. Jaime Dominguez, radiology fellow. Impression: 1. Successful fluoroscopically guided right glenohumeral joint arthrogram without complications. MR arthrogram to follow. Dr. Voss was present during the injection for the arthrogram. Cesar Kingston MD IMG FLUOROSCOPY ORDERABLE S Final Result documented in this encounter Visit Diagnoses Not on filedocumented in this encounter Care Teams Armor Reconnaissance Specialist Relationship Specialty Start Date End Date Faizan Bhakta MD PCP - General 08/18/13 documented as of this encounter
--- OUTSIDE RECORDS SUMMARY | 2024-02-29 15:47 | XMS_ITS | Encounter Summary ---
Author Organization [facility] Address [address] [place] [address] Care Team Providers Care Sales Representative Malt Liquors Name Role Phone Faizan Bhakta MD Primary Care Provider Unav ailable Reason for Visit * Reason Onset Date Comments Prior Auth, Other (i.e. radiology, etc.) 015 Encounter Details Date Type Department Care Team (Late st Contact Info) Description 08/16/2014 Telephone [facility] Sports Medicine Program - [address] [address] Brando Katz MD [address] [place] [phone] Prior Auth, Other (i.e. radiology, etc.) Social History Tobacco Use Types Packs/Day Years [...] encounter Miscellaneous Notes * Telephone Encounter - Madonna Hung - 08/16/2014 1254 EDT RIGHT SHOULDER ULTRASOUND GUIDED AC JOINT INJECTION ([id number], [id number]) NO PRIOR AUTH REQ'D PER NIKITA @[facility] documented in this encounter Plan of Treatment Not on file documented as of this encounter Visit Diagnoses Not on filedocumented in this encounter Care Teams Sales Representative Malt Liquors Relationship Specialty Start Date End Date Faizan Bhakta MD PCP - General 08/18/13 documented as of this encounter
--- OUTSIDE RECORDS SUMMARY | 2024-02-29 15:47 | XMS_ITS | Encounter Summary ---
Author Organization [facility] Address [address] [place] [address] Care Team Providers Care Cloth Washer Operator Name Role Phone Faizan Bhakta MD Primary Care Provider Unav ailable Reason for Visit * Reason Onset Date Comments Appointment Related 11/16/2015 OR reminder call Encounter Details Date Type Department Care Team (Late st Contact Info) Description 11/16/2015 Telephone Vascular Surgery and Endovascular Therapy - [address] [address] Tony Garza MD [address] [place] [address], [address] [place] [phone] Appointment Related (OR reminder call) Social History Tobacco Use Types Packs/Day Years [...] Eduar Ho, RN documented in this encounter Miscellaneous Notes * Telephone Encounter - Brice Melody - 11/16/2015 1505 EDT Surgery reminder call Spoke to the patient You are having surgery with Dr. Garza Your surgery date is Thursday November 19, 2015 At the [facility] Please check in at 6:00am at registration. You can not have any solid food or dairy products after midnight, but you may have clear liquids until 3:25am. After 3:25am you may only have the medications you discussed taking during your Anesthesia phone call with sips of water. You must have a water tanker driver with you the day of surgery. If you are having varicose vein surgery please refrain from shaving prior to your procedure. Have you had any changes to your health recently, a cough, cold, fever or rash? No . Thank you for your time documented in this encounter Plan of Treatment Not on file documented as of this encounter Visit Diagnoses Not on filedocumented in this encounter Care Teams Cloth Washer Operator Relationship Specialty Start Date End Date Faizan Bhakta MD PCP - General 08/18/13 documented as of this encounter
--- OUTSIDE RECORDS SUMMARY | 2024-02-29 15:47 | XMS_ITS | Encounter Summary ---
Author Organization [facility] Address [address] [place] [address] Care Team Providers Care Normalizer Name Role Phone Faizan Bhakta MD Primary Care Provider Unav ailable Encounter Details Date Type Department Care Team (Late st Contact Info) Description 03/08/[address] [facility] Surgery [address] [address] Faizan Bhakta MD Social History Tobacco Use Types Packs/Day Years [...] on filedocumented in this encounter Care Teams Normalizer Relationship Specialty Start Date End Date Faizan Bhakta MD PCP - General 08/18/13 documented as of this encounter
--- OUTSIDE RECORDS SUMMARY | 2024-02-29 15:48 | XMS_ITS | Encounter Summary ---
Author Organization [facility] Address [address] [place] [address] Care Team Providers Care Upholstery Trimmer Name Role Phone Larisa Kinsey MD Primary Care Provider [phone] Encounter Details Date Type Department Care Team (Latest Contact Info) Description 10/18/2012 Pre-Procedure Orders Encounter Vascular Surgery and Endovascular Therapy - [address] [phone] Monica Rashid APRN Atherosclerosis of [place] arteries of the extremities with intermittent claudication (Primary Dx) Social History Tobacco Use Types Packs/Day Years Used Date Smoking Tobacco: Every Day Cigarettes 0.2 20 Comments:Smoking 4-5 cigaret vicky daily Alcohol Use Standard Drinks/Week Comments Yes 0 (1 standard drink = 0.6 oz pur e alcohol) Once or twice a year Comments Unknown Sex and Gender Information Value Date Recorded Sex Assigned at Not on file Legal Sex Female 18:15 EST Gender Identity Not on file Sexual Orientation Not on file documented as of this encounter Plan of Treatment Not on file documented as of this encounter Visit Diagnoses Diagnosis Atherosclerosis of [place] arteries of the extremities with intermittent claudication- Primary documented in this encounter Care Teams Upholstery Trimmer Relationship Specialty Start Date End Date Larisa Kinsey MD [address] [facility] [place] [phone] PCP - General 07/12/10 08/17/13 documented as of this encounter
--- OUTSIDE RECORDS SUMMARY | 2024-02-29 15:48 | XMS_ITS | Encounter Summary ---
Author Organization [facility] Address [address] [place] [address] Care Team Providers Care Pockets And Pieces Necktie Operator Name Role Phone Larisa Kinsey MD Primary Care Provider [phone] Reason for Referral * Vascular Lab (Routine/Next Available) - Closed Specialty Diagnoses / Procedures Referred By Contac t Referred To Contact Diagnoses Atherosclerosis of [place] arteries of the extremities with intermittent claudication Procedures VL ABDOMINAL AORTA/ILIAC DUPLEX Tony Garza MD Phone: tel: fax: Referral ID Status Reason Start Date Expiration Date Visits Re quested Visits Authorized [id number] Closed 09/09/2012 1 1 Reason for Visit * Reason Comments Claudication Bilateral leg pain w hen walking. Had lower atrial study on 05/06/12 at [facility]. Encounter Details Date Type Department Care Team (Late st Contact Info) Description 09/09/2012 13:30 EDT Office Visit Vascular Surgery and Endovascular Therapy - [address] [address] Tony Garza MD [address] [place] [address], [facility], [address] [place] [phone] Atherosclerosis of [place] arteries of the extremities with intermittent claudication (Primary Dx) Discharge Disposition: Auto Discharge Social History Tobacco Use Types Packs/Day Years Used Date Smoking Tobacco: Every Day Cigarettes 0.2 20 Comments:Smoking 4-5 cigaret vicky daily Alcohol Use Standard Drinks/Week Comments Not Asked 0 (1 standard drink = 0.6 oz pur e alcohol) Comments Unknown Sex and Gender Information Value Date Recorded Sex Assigned at Not on file Legal Sex Female 18:15 EST Gender Identity Not on file Sexual Orientation Not on file documented as of this encounter Last Filed Vital Signs Vital Sign Reading Time Taken Comments Blood Pressure 90/58 09/09/2012 1320 EDT Pulse - - Temperature - - Respiratory Rate - - Oxygen Saturation - - Inhaled Oxygen Concentration - - Weight 54.4 kg (120 lb) 09/09/2012 1320 EDT Height 162.6 cm (5' 4) 09/09/2012 1320 EDT Body Mass Index 20.6 09/09/2012 1320 EDT documented in this encounter Discharge Disposition Disposition Code Departure Means Destination Auto Discharge documented in this encounter Progress Notes * Tony Garza MD - 09/13/2012 1049 EDT DIVISION OF VASCULAR SURGERY PROGRESS/FOLLOWUP NOTE - 09/09/2012 SUBJECTIVE: Ms Kee is known to me. I have seen her in the past for a right- sided thoracic outlet syndrome. She is actually doing fairly well from that with physical therapy. She is now here becauseof claudication. She can only walk a fairly short distance when she starts feeling discomfort in her buttocks, thighs, and down into the calf area. She has to stop or lie down, and the pain goes awayfairly quickly. This has been progressively getting worse. She was seen by her local doctor, and a noninvasive vascular study was obtained, which showed ABIs in the 0.5 range, and because of that sheis back to see us. She has had no rest pain, no ulcers. OBJECTIVE: On exam today, blood pressure 90/58. I cannot appreciate palpable femoral pulses. She has Doppler signals only in her feet. Because of that, we did repeat her noninvasive study, which showed basically a right MARGIE of 0.5, left MARGIE of 0.45, monophasic throughout. 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 ASSESSMENT AND PLAN: Unfortunately, I had to leave for an emergency, so I was not able to talk to her after the study, but she will need a CT angiogram to evaluate this further and may need an aortobifemoral bypass for this. I will call her in the morning and go from there. Electronically Signed by Tony Garza MD 09/22/2012 07:53 Tony Garza MD - Tony Garza MD - [facility] Job ID: SM Doc ID: [id number] Ext Doc ID: [id number] cc: * Tony Garza MD - 09/09/2012 1735 EDT This office note has been dictated. documented in this encounter Plan of Treatment Not on file documented as of this encounter Procedures Procedure Name Priority Date/Time Associated Diagnosis Comments VL ABDOMINAL AORTA/ILIAC DUPLEX Routine 09/09/2012 14:25 EDT Atherosclerosis of [place] arteries of the extremities with intermittent claudication documented in this encounter Results * VL ABDOMINAL AORTA/ILIAC DUPLEX (09/09/2012 14:25 EDT) Anatomical Region Laterality Modality Other 09/09/2012 14:2 5 EDT 09/09/2012 17:29 EDT Narrative 09/09/2012 17:29 EDT Lower Extremity Arterial Physiologic Evaluation PROCEDURE: ??Single level physiologic arterial evaluation (MARGIE). [address]. ? SEGMENTAL PRESSURES RIGHT Brachial Art: ??103 mmHg Ankle (MASONRY SUPERVISOR): ?57 mmHg Index: ??0.52 Ankle (DPA): ?53 mmHg Index: ??0.48 LEFT Brachial Art: ??110 mmHg Ankle (MASONRY SUPERVISOR): ?49 mmHg Index: ??0.45 Ankle (DPA): ?49 mmHg Index: ??0.45 CW DOPPLER ANALYSIS: RIGHT Right JANITORIAL ACCOUNT MANAGER: Monophasic ? Right MASONRY SUPERVISOR: Monophasic ? Right DPA: Monophasic ? LEFT Left JANITORIAL ACCOUNT MANAGER: ??Monophasic ? Left MASONRY SUPERVISOR: ??Monophasic ? Left DPA: ??Monophasic ? PLETHYSMOGRAPHIC FINDINGS Right: ?? Abnormal pulse volume recordings at the following level(s): Ankle. ?? Left: ?Abnormal pulse volume recordings at the following level(s): Ankle. ?? IMPRESSION Right: ?? The ankle brachial index is 0.52 ? Left: ?The ankle brachial index is 0.45 ? ABDOMINAL AORTA/ILIAC DUPLEX ULTRASOUND PROCEDURE: ??Aorta, iliac artery imaging performed with 2D, spectral, and color flow Doppler. 95817. ?? INDICATION: Weak femoral pulses. ? HISTORY: ?Smoking, PVD. ? SONOGRAPHIC FINDINGS Aorta Prox: ?? 2.4 cm ??x ?2.4 cm PSV: ?? 81 cm/sec ? Aorta Mid.: ?? 1.8 cm ??x ?1.7 cm PSV: ?? 46 cm/sec ? Aorta Dist: ?? 1.3 cm ??x ?1.3 cm PSV: ?0 cm/sec ? Rt JEFFERSON: ? 0.6 cm ??x ?0.5 cm PSV: ?0 cm/sec ? Rt EIA: ? 0.6 cm ??x ? PSV: ?? 50 cm/sec ? Lt JEFFERSON: ? 0.7 cm ??x ?0.7 cm PSV: ?0 cm/sec ? Lt EIA: ? 0.8 cm ??x ? PSV: ?? 48 cm/sec ? IMPRESSION There is no evidence of an abdominal aortic aneurysm. The iliac arteries are normal in size. ?? 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 The internal iliac arteries appear to be feeding the external iliacs. Procedure Note 09/09/2012 Lower Extremity Arterial Physiologic Evaluation PROCEDURE: Single level physiologic arterial evaluation (MARGIE). [address]28[address]. SEGMENTAL PRESSURES RIGHT Brachial Art: 103 mmHg Ankle (MASONRY SUPERVISOR): 57 mmHg Index: 0.52 Ankle (DPA): 53 mmHg Index: 0.48 LEFT Brachial Art: 110 mmHg Ankle (MASONRY SUPERVISOR): 49 mmHg Index: 0.45 Ankle (DPA): 49 mmHg Index: 0.45 CW DOPPLER ANALYSIS: RIGHT Right JANITORIAL ACCOUNT MANAGER: Monophasic Right MASONRY SUPERVISOR: Monophasic Right DPA: Monophasic LEFT Left JANITORIAL ACCOUNT MANAGER: Monophasic Left MASONRY SUPERVISOR: Monophasic Left DPA: Monophasic PLETHYSMOGRAPHIC FINDINGS Right: Abnormal pulse volume recordings at the following level(s): Ankle. Left: Abnormal pulse volume recordings at the following level(s): Ankle. IMPRESSION Right: The ankle brachial index is 0.52 Left: The ankle brachial index is 0.45 ABDOMINAL AORTA/ILIAC DUPLEX ULTRASOUND PROCEDURE: Aorta, iliac artery imaging performed with 2D, spectral, and color flow Doppler. 50725. INDICATION: Weak femoral pulses. HISTORY: Smoking, PVD. SONOGRAPHIC FINDINGS Aorta Prox: 2.4 cm x 2.4 cm PSV: 81 cm/sec Aorta Mid.: 1.8 cm x 1.7 cm PSV: 46 cm/sec Aorta Dist: 1.3 cm x 1.3 cm PSV: 0 cm/sec Rt JEFFERSON: 0.6 cm x 0.5 cm PSV: 0 cm/sec Rt EIA: 0.6 cm x PSV: 50 cm/sec Lt JEFFERSON: 0.7 cm x 0.7 cm PSV: 0 cm/sec Lt EIA: 0.8 cm x PSV: 48 cm/sec IMPRESSION There is no evidence of an abdominal aortic aneurysm. The iliac arteries are normal in size. 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 The internal iliac arteries appear to be feeding the external iliacs. us Tony Garza MD IMG US VASCULAR ORDERABLE S Final Result documented in this encounter Visit Diagnoses Diagnosis Atherosclerosis of [place] arteries of the extremities with intermittent claudication- Primary documented in this encounter Care Teams Pockets And Pieces Necktie Operator Relationship Specialty Start Date End Date Larisa Kinsey MD [address] [place] [address] PCP - General 07/12/10 08/17/13 documented as of this encounter
--- OUTSIDE RECORDS SUMMARY | 2024-02-29 15:48 | XMS_ITS | Encounter Summary ---
Author Organization [facility] Address [address] [place] [address] Care Team Providers Care Navy Senior Officer Name Role Phone Faizan Bhakta MD Primary Care Provider Unav ailable Reason for Referral * Radiology Services (Routine) - Closed Specialty Diagnoses / Procedures Referred By Greg t Referred To Contact Diagnoses Chronic right shoulder pain Procedures SHOULDER 2 OR MORE VIEWS Brando Katz MD Phone: tel: fax: Referral ID Status Reason Start Date Expiration Date Visits Re quested Visits Authorized [id number] Closed 08/22/2013 1 1 Reason for Visit * Reason Comments Clavicle Injury right Encounter Details Date Type Department Care Team (Late st Contact Info) Description 08/22/2013 9:00 EDT Office Visit [facility] Sports Medicine Program - [address] [address] Brando Katz MD [address] [place] [phone] Chronic right shoulder pain (Primary Dx) [...] - Inhaled Oxygen Concentration - - Weight 54 kg (119 lb) 08/22/2013 0853 EDT Height 165.1 cm (5' 5) 08/22/2013 0853 EDT Body Mass Index 19.8 08/22/2013 0853 EDT documented in this encounter Mental Status * Because of a physical, mental, or emotional condition, do you have serious difficulty concentrating, remembering, or making decisions? (5 years old or older) Answer Entry Date Author Yes 11/02/2012 4:00 EDT Papito Ho RN documented in this encounter Discharge Diagnoses Diagnosis 719.41 JOINT PAIN-SHLDER[ICD-9-CM] documented in this encounter Discharge Disposition Disposition Code Departure Means Destination Auto Discharge documented in this encounter Progress Notes * Brando Katz MD - 08/22/2013 1033 EDT SPORTS MEDICINE SERVICE PROGRESS / FOLLOWUP NOTE - 08/22/2013 PROBLEM: 1. Chronic right shoulder pain. a. Open subcuticular mass excision from adjacent to the AC joint and open distal clavicle excision.12/04/2010 (Josephine). b. Repeat mass excision and excision of bony regrowth from the distal clavicle 05/21/2011 (Josephine). 2. Peripheral vascular disease. a. Aortobifemoral bypass 11/01/2012 (Dr Garza). SUBJECTIVE: Ms Kee is an established patient who I have seen in the past for chronic right shoulder pain. Her PRISM notes were reviewed. She underwent electrodiagnostic studies 04/28/[address] Camp showing evidence of thoracic outlet syndrome. She saw Dr Garza for this who agreed that she did have thoracic outlet. She then underwent an aortobifemoral femoral bypass and I have not seen her back for her shoulder pain since that initial visit in 2012. She was managing relatively well with regards to her shoulder until 08/14/2013 when she was simply reaching for a coffee cup and feltsomething snap in her right shoulder. There was an audible pop that her heard. She had an immediate increase in pain over the top of her collar bone and on the right side of her shoulder. Shedeveloped swelling in this region. She was seen by her primary care physician and then at an emergency department in [facility] where she underwent x-rays and she was told that they were normal. She has persistent pain, but no new neurologic symptoms. DASH score 78.3. ASES score 20. OBJECTIVE: Radial pulse 2+. Sensation grossly intact and symmetric to light touch with the left upper extremity C5 through T1. No visible atrophy around her right shoulder. She did seem to have more swelling over the right clavicle compared to the left. She was markedly tender over the distal clavicle and AC joint region. Active elevation 45 degrees. Passive external rotation with her arm at the side 40 degrees, internal rotation not tested. Her x-rays from [facility] were not available for review. New x-rays will be ordered today. ASSESSMENT AND PLAN: I am not sure what the pop represents. She had a large amount of bone resectedfrom her distal clavicle. She may have horizontal instability of the distal clavicle. She will undergo new x-rays today and I will contact her by phone if I have any concerns about the x-ray findings. She will resume physical therapy. She may take NSAIDs for pain. She may use heat or ice. She may use her shoulder as tolerated. If her pain does not resolve in an appropriate amount of time, I wouldconsider a corticosteroid injection around the AC joint. Brando Katz MD 09 43 AM - Brando Katz MD Dictation ID: [id number] cc: Faizan Bhakta MD, [address], [address] [place] [id number] * Brando Katz MD - 08/22/2013 0938 EDT This office note has been dictated. documented in this encounter Plan of Treatment Not on file documented as of this encounter Procedures Procedure Name Priority Date/Time Associated Diagnosis Comments SHOULDER 2 OR MORE VIEWS Routine 08/22/2013 9:48 EDT Chronic right shoulder pain documented in this encounter Results * SHOULDER 2 OR MORE VIEWS (08/22/2013 9:48 EDT) Anatomical Region Laterality Modality Other 08/22/2013 9:48 EDT 08/24/2013 18:12 EDT Narrative 08/24/2013 18:12 EDT SHOULDER 2 OR MORE VIEW ??08/22/2013 9:48 AM Signs and Symptoms/Comments: ?? 719.41-Pain in joint, shoulder [id number]; right shoulder pain Comparison: AP view of the chest dated November 01, 2013. Findings: AP neutral, Grashey, transscapular, and axillary views of the right shoulder show no evidence of acute fracture or dislocation, the humeral head appears well positioned with respect to the glenoid. There are postsurgical changes in the acromioclavicular joint with widening of the joint space most likely excision of the distal clavicle. There is osteopenia. Soft tissues are grossly unremarkable. ?? Procedure Note 08/24/2013 SHOULDER 2 OR MORE VIEW 08/22/2013 9:48 AM Signs and Symptoms/Comments: 719.41-Pain in joint, shoulder [id number]; right shoulder pain Comparison: AP view of the chest dated November 01, 2013. Findings: AP neutral, Grashey, transscapular, and axillary views of the right shoulder show no evidence of acute fracture or dislocation, the humeral head appears well positioned with respect to the glenoid. There are postsurgical changes in the acromioclavicular joint with widening of the joint space most likely excision of the distal clavicle. There is osteopenia. Soft tissues are grossly unremarkable. Brando Katz MD IMG DIAGNOSTIC IMAGING ORDERABLES Final Result documented in this encounter Visit Diagnoses Diagnosis Chronic right shoulder pain- Primary Pain in joint, shoulder region documented in this encounter Care Teams Navy Senior Officer Relationship Specialty Start Date End Date Faizan Bhakta MD PCP - General 08/18/13 documented as of this encounter
--- OUTSIDE RECORDS SUMMARY | 2024-02-29 15:48 | XMS_ITS | Encounter Summary ---
Author Organization [facility] Address [address] [place] [address] Care Team Providers Care Biological Sciences Instructor Name Role Phone Andreas Kerns DO Primary Care Provider [phone] Encounter Details Date Type Department Care Team (Late st Contact Info) Description 10/27/2007 Before PRISM Converted Visit (Maple) [facility] - Maple conversion [address] [place] [address] Yuniel Darling MD [address] [place] [address] [place] [phone] Social History Tobacco Use Types Packs/Day Years Used Date Smoking Tobacco: Never Assessed Comments Unknown Sex and Gender Information Value Date Recorded Sex Assigned at Not on file Legal Sex Female 18:15 EST Gender Identity Not on file Sexual Orientation Not on file documented as of this encounter Progress Notes * Yuniel Darling - 01/05/2009 1155 EDT DIVISION OF GASTROENTEROLOGY PROGRESS/FOLLOWUP NOTE - 10/27/2007 CHIRAG Ramirez returns to the office today having last been seen on 09/22/2007 with chronicconstipation and abdominal pain. Since that time she reports her pain has resolved completely. She has also undertaken a trial of Lubiprostone initially twice daily, but had significant side effects due to this medication and has subsequently dropped the dose to once daily at bedtime. She does have some side effectseven at this dose, but finds them tolerable. These include leg swelling, shortness of breath, irritability, etc. She is currently off of all stimulant laxatives and reports that her symptoms of constipation have not changed dramatically. OBJECTIVE Blood pressure 126/78, 68 and regular pulse, weight 126 pounds with clothing. Patient in no acute distress, alert and oriented. Abdomen soft, nontender, nondistended. Bowel sounds present. No organomegaly. No guarding or rebound. IMPRESSION/PLAN Chronic idiopathic constipation. Unfortunately, Ashley is quite sensitive to medications and has been intolerant to MiraLax as well as full strength Lubiprostone. In hopes of avoiding the use of stimulant laxatives, I have advised Ashley to attempt to maximize her oral fiber intake in the form of an o tgr-dxj-suulmhf fiber supplement titrated to effect. She will try this over the next several monthsand return to this office on a p.r.n. basis. Signed by Yuniel Darling MD 11/08/2007 11:27 Yuniel Darling MD [phone] - Charlene Darling MD - [facility] Job ID: [id number] Doc ID: [id number] cc: Hugo Anderson MD - Yuniel Darling MD - [facility] Job ID: [id number] Doc ID: [id number] cc: Hugo Anderson MD documented in this encounter Plan of Treatment Not on file documented as of this encounter Visit Diagnoses Not on filedocumented in this encounter Care Teams Biological Sciences Instructor Relationship Specialty Start Date End Date Andreas Kerns DO [address] [place] [address] [place] [address] PCP - General 09/29/08 07/11/10 documented as of this encounter
--- OUTSIDE RECORDS SUMMARY | 2024-02-29 15:48 | XMS_ITS | Encounter Summary ---
Author Organization [facility] Address [address] [place] [address] Care Team Providers Care Automatic Chief Name Role Phone Larisa Kinsey MD Primary Care Provider Reason for Visit * Reason Onset Date Comments Shoulder Pain 04/27/2012 right shoulder p ain Encounter Details Date Type Department Care Team (Late st Contact Info) Description 04/27/2012 Orders Only [facility] Sports Medicine Program - [address] [address] Brando Katz MD [address] [place] [phone] Right shoulder pain (Primary Dx) Social History Tobacco Use Types Packs/Day Years Used Date Smoking Tobacco: Every Day Cigarettes 0.2 20 Alcohol Use Standard Drinks/Week Comments Not Asked [...] as of this encounter Visit Diagnoses Diagnosis Right shoulder pain- Primary Pain in joint, shoulder region documented in this encounter Care Teams Automatic Chief Relationship Specialty Start Date End Date Larisa Kinsey MD [address] [place] [phone] PCP - General 07/12/10 08/17/13 documented as of this encounter
--- OUTSIDE RECORDS SUMMARY | 2024-02-29 15:48 | XMS_ITS | Encounter Summary ---
Author Organization [facility] Address [address] [place] [address] Care Team Providers Care Humanities Division Chair Name Role Phone Larisa Kinsey MD Primary Care Provider [phone] Encounter Details Date Type Department Care Team (Late st Contact Info) Description 09/28/2012 9:18 EDT - 09/28/2012 23:59 EDT Hospital Encounter [address] [address] Tony Garza MD [address] [place] [address], [address] [place] [address] Discharge Disposition: Auto Discharge Social History Tobacco [...] on file documented as of this encounter Medications at Time of Discharge acetaminophen (TYLENOL) 500 mg tablet Take 1-2 Tabs by mouth every 6 hours as needed for Pain. 11/05/2012 docusate sodium (COLACE) 100 mg capsule Take 1 Cap by mouth 2 times daily as needed for Constipation. 11/05/2012 03/12/2015 HYDROcodone-aceta minophen (LORTAB) 5-500 mg tablet Take 1 Tab by mouth every 6 hours as needed for Pain. 20 Tab 0 11/05/2012 11/16/2012 PEG 3350-Electrolytes (MIRALAX) 17 gram packet Take 17 g by mouth daily as needed (constipation ). 11/06/2012 03/12/2015 senna (SENOKOT) 8.6 mg tablet Take 1 Tab by mouth at bedtime as needed for Other (constipation ). 11/06/2012 03/12/2015 documented as of this encounter Discharge Disposition Disposition Code Departure Means Destination Auto Discharge Home documented in this encounter Plan of Treatment Not on file documented as of this encounter Visit Diagnoses Not on filedocumented in this encounter Care Teams Humanities Division Chair Relationship Specialty Start Date End Date Larisa Kinsey MD [address] [place] [phone] PCP - General 07/12/10 08/17/13 documented as of this encounter
--- OUTSIDE RECORDS SUMMARY | 2024-02-29 15:48 | XMS_ITS | Encounter Summary ---
Author Organization [facility] Address [address] [place] [address] Care Team Providers Care R&D Lab Technician Name Role Phone Larisa Kinsey MD Primary Care Provider [phone] Reason for Referral * Cardiology (3 - 10 Business Days) - Closed Specialty Diagnoses / Procedures Referred By Contac t Referred To Contact Cardiology Diagnoses Atherosclerosis of [place] arteries of the extremities with intermittent claudication Procedures NM DOBUTAMINE STRESS Tony Garza MD Phone: tel: fax: Referral ID Status Reason Start Date Expiration Date Visits Re quested Visits Authorized [id number] Closed 09/28/2012 1 1 Reason for Visit * Reason Comments Follow-up f/u s/p CTA 09/28 Encounter Details Date Type Department Care Team (Late st Contact Info) Description 09/28/2012 11:30 EDT Office Visit Vascular Surgery and Endovascular Therapy - [address] [phone] Tony Garza MD [address] [place] [address], [address] [place] [phone] Atherosclerosis of [place]aver arteries of the extremities with intermittent claudication [...] on file documented as of this encounter Discharge Disposition Disposition Code Departure Means Destination Auto Discharge documented in this encounter Progress Notes * Tony Garza MD - 09/28/2012 1302 EDT DIVISION OF VASCULAR SURGERY PROGRESS/FOLLOWUP NOTE - 09/28/2012 Ms Kee is here for a followup after her CT angiogram done this morning. This was done for a significant claudication and noninvasive studies and ultrasound indicating distal aortic occlusion. The CT scan basically confirms the distal aorta is occluded as well as the common iliacs on both sides. It reconstitutes in her pelvis, and the common femoral arteries are pretty decent on both sides. She is very hampered by this. She feels that she basically cannot do anything activity-fowler. The only way to fix this would be with an aortobifemoral bypass. She is quite interested to proceed with that, so will set her up for a cardiac stress test, partly because of her long-term smoking and also some chest palpitation occasionally. We will then bring her back for a preoperative workup and will set the date for her surgery. Electronically Signed by Tony Garza MD 10/06/2012 13:14 Tony Garza MD - Tony Garza MD - [facility] Job ID: SM Doc ID: [id number] Ext Doc ID: [id number] cc: * Tony Garza MD - 09/28/2012 1244 EDT This office note has been dictated. documented in this encounter Plan of Treatment Scheduled Orders Name Type Priority Associated Diagnoses Orde r Schedule NM DOBUTAMINE STRESS Cardiac Services Routine Atheroscler-Limb&Cla udic Ordered: 09/28/2012 documented as of this encounter Visit Diagnoses Diagnosis Atherosclerosis of beaver arteries of the extremities with intermittent claudication- Primary documented in this encounter Care Teams R&D Lab Technician Relationship Specialty Start Date End Date Larisa Kinsey MD [address] [place] [address] PCP - General 07/12/10 08/17/13 documented as of this encounter
--- OUTSIDE RECORDS SUMMARY | 2024-02-29 15:48 | XMS_ITS | Encounter Summary ---
Author Organization [facility] Address [address] [place] [address] Care Team Providers Care Living Advisor Name Role Phone Larisa Kinsey MD Primary Care Provider [phone] Reason for Visit * Reason Comments Shoulder Pain right shoulder pain Encounter Details Date Type Department Care Team (Late st Contact Info) Description 04/27/2012 13:00 EST Office Visit [facility] Sports Medicine Program - [address] [address] Brando Katz MD [address] [place] [phone] Chronic right shoulder pain (Primary Dx) Social History Tobacco [...] as of this encounter Progress Notes * Barndo Katz MD - 04/28/2012 1048 EST Sports Medicine Service [facility] [address] [place] [address] NEW PATIENT EVALUATION - 04/27/2012 PROBLEM: Right shoulder pain and numbness and tingling right upper extremity. HISTORY OF PRESENT ILLNESS: A 51-year-old ambidextrous woman with chronic right shoulder pain and neurologic symptoms in her right upper extremity. Her symptoms apparently started in August or September of 2010 for unclear reasons. She had swelling around her AC joint. She was seen by Dr Jadon Naidu at [facility]. On 12/04/2010 she underwent an open excision of a subcuticular mass around her AC joint as well as an open distal clavicle excision. One centimeter of distal clavicle was removed.She continued to have problems after that surgery. Apparently plain radiographs showed some bony regrowth at the distal clavicle and she underwent a repeat procedure 05/21/11, also by Dr Naidu. Bothof the operative reports were available. There was another soft tissue mass around the AC joint which was resected as well as the bony regrowth around the distal clavicle. In the office note it states that the surgical pathology reports from both procedures showed that the masses removed were benign. She continues to have problems after that surgery. At one point she describes major swelling around the right side of her neck. She continues to have pain in her shoulder radiating from her shoulder blade to the superior aspect of her shoulder. Any time she leans on the right side or brings her shoulder up to shoulder level, she has numbness and tingling down her maral into her hand including all fingers. She does not have neck pain. She has done physical therapyat various times, but not recently. She has not had any injections. She was seen for a second opinion by Dr Otero who recommended a consultation with the Anesthesia Pain Service at [facility]. I do not have a record of that consultation, but apparently was decided not to do any injections. She has undergone multiple MRI studies and electrodiagnostic studies. Past medical history, past surgical history, medications, allergies, social history and family history documented in [facility]. She is a smoker and is disabled because of her shoulder problem. OBJECTIVE: She was alert. Two plus radial pulse on the right. Sensation intact to light touch C5 through T1, other than subjectively diminished sensation to light touch in the C7 distribution compared to the left. No visible atrophy or rashes around her right shoulder. No deformity. There was an incision over the acromioclavicular joint on the right. Active elevation 170 degrees bilaterally without scapular winging. Passive external rotation with her arm to the side 55 degrees bilaterally. Internal rotation T7 bilaterally. She was tender over the AC joint. Tender over the inferior portion of the scapula. Nontender over the proximal biceps region. 5/5 strength with Stephany test, 5/5 external rotation strength. Negative belly press test. Negative lift-off test. DIAGNOSTIC DATA: The most recent MRI of her right shoulder was 07/15/11 at , which was brought on a CD. This was independently reviewed and I did not see any major structural problems. I do not have copies of her prior MRI studies, nor a copy of a cervical spine MRI. I do not have records of her electrodiagnostic studies or her surgical pathology reports. ASSESSMENT AND PLAN: A 51-year-old woman with chronic right shoulder pain and neurologic symptoms in her right upper extremity after undergoing two procedures around her AC joint. The source of her pain is unclear. Some of her AC joint pain may be related to her prior surgeries. However, this does not really explain her scapular pain and certainly not her neurologic symptoms. At this point, I do not have enough information to make a diagnosis or determine further treatment plan. All MRI studiesof her shoulder and cervical spine will be uploaded to the PACS system. All prior radiographs will be uploaded to the PACS system. We will obtain a copy of the report from her initial electrodiagnostic studies. We will obtain the surgical pathology reports. I recommended repeat electrodiagnostic studies here. I will then follow up with her by phone. She will complete a DASH and ASES score today. ADDENDUM: DASH score 32.5, ASES score 50. Electronically Signed by Brando Katz MD 05/04/2012 15:42 Brando Katz MD - Brando Katz MD - Job ID: SM Doc ID: [id number] Ext Doc ID: [id number] cc: Larisa Kinsey MD * Brando Katz MD - 04/27/2012 1313 EST This office note has been dictated. documented in this encounter Plan of Treatment Not on file documented as of this encounter Visit Diagnoses Diagnosis Chronic right shoulder pain- Primary Pain in joint, shoulder region documented in this encounter Care Teams Living Advisor Relationship Specialty Start Date End Date Larisa Kinsey MD [address] [place] [phone] PCP - General 07/12/10 08/17/13 documented as of this encounter
--- OUTSIDE RECORDS SUMMARY | 2024-02-29 15:48 | XMS_ITS | Encounter Summary ---
Author Organization [facility] Address [address] [place] [address] Care Team Providers Care Drill Operator Automatic Name Role Phone Larisa Kinsey MD Primary Care Provider [phone] Reason for Visit * Reason Comments Post-OP Follow Up First post op s/p ao rtobifemoral bypass Encounter Details Date Type Department Care Team (Latest Contact Info) Description 11/11/2012 13:00 EDT Office Visit Vascular Surgery and Endovascular Therapy - [address] [id number] Larisa Kinsey MD [address] [place] [phone] Nurse Practitioner, [facility] Vasc Surg Atherosclerosis of [place] arteries of the extremities with intermittent claudication [...] Sign Reading Time Taken Comments Blood Pressure 84/60 11/11/2012 1306 EDT Pulse - - Temperature - - Respiratory Rate - - Oxygen Saturation - - Inhaled Oxygen Concentration - - Weight - - Height - - Body Mass Index - - documented in this encounter Mental Status * Because of a physical, mental, or emotional condition, do you have serious difficulty concentrating, remembering, or making decisions? (5 years old or older) Answer Entry Date Author Yes 11/02/2012 4:00 EDT Papito Ho RN documented in this encounter Discharge Disposition Disposition Code Departure Means Destination Auto Discharge documented in this encounter Progress Notes * Arunramosjosse Monica JARAD Arana - 11/11/2012 1629 EDT SUBJECTIVE: Ms Kee is here today for her first postoperative check following her aortobifemoral bypass, which was done for a very short distance claudication. Surgery was on 11/01/[address] Garza. Her hospitalization was uncomplicated and the only development was that she did receive 1 unit of packed red blood cells. Ashley still feels tired at home. She is, however, just 10 days out from surgery. She is not taking any pain medicine. She is eating small frequent meals. She does have some burning on the anterior thighs and had discussed this with Dr Garza prior to discharge, and he was confident it was related to nerve irritation. Ashley cannot actually state that her legs feel better with walking as shestill feels quite sore. She has had 2 days of diarrhea. She will stop taking her stool softeners. She has no specific questions. OBJECTIVE: Ashley looks a little pale and tired and is moving slowly. Her midline incision is clean and intact. I removed the kim without difficulty and her abdomen was Steri-Stripped. It is soft and nontender. The groin incisions are stapled. There were no dressings on the groin and I did teachDebra how to apply a clean daily dressing. She stated she did not know she should be doing this. She has palpable pedal pulses with the exception of the left PT, which is a Doppler signal. There is no distal edema. She has had no problems with shortness of breath or chest pain. ASSESSMENT AND PLAN: Stable postoperative exam following aortobifemoral bypass. We talked about postoperative care including the need for rest and the need to increase protein and iron if possible. Ashley will try some protein bars. Of note, there was a finding on her CT scan preoperatively with regard to an abnormality in the sacral spine. Ashley was informed about this and the need for followup. I see that no appointment was made. Our nursing staff will get in touch with the proper spine physician to evaluate the abnormality.The patient will be contacted tomorrow with an appointment. I did call the patient myself to explain and she will expect to hear from us tomorrow. She is going to come back next week for removal of the groin kim. I gave her supplies to put dressings on the groin incisions. documented in this encounter Plan of Treatment Not on file documented as of this encounter Visit Diagnoses Diagnosis Atherosclerosis of [place] arteries of the extremities with intermittent claudication- Primary documented in this encounter Care Teams Drill Operator Automatic Relationship Specialty Start Date End Date Larisa Kinsey MD [address] [place] [phone] PCP - General 07/12/10 08/17/13 documented as of this encounter
--- OUTSIDE RECORDS SUMMARY | 2024-02-29 15:48 | XMS_ITS | Encounter Summary ---
Author Organization [facility] Address [address] [place] [address] Care Team Providers Care Perl Software Engineer Name Role Phone Larisa Kinsey MD Primary Care Provider [phone] Encounter Details Date Type Department Care Team (Late st Contact Info) Description 05/04/2012 Abstract [facility] Spine Program - [address] [address] Brando Katz MD [address] [place] [address] Social History Tobacco Use Types Packs/Day Years [...] on filedocumented in this encounter Care Teams Perl Software Engineer Relationship Specialty Start Date End Date Larisa Kinsey MD [address] [facility] [place] [phone] PCP - General 07/12/10 08/17/13 documented as of this encounter
--- OUTSIDE RECORDS SUMMARY | 2024-02-29 15:48 | XMS_ITS | Encounter Summary ---
Author Organization [facility] Address [address] [place] [address] Care Team Providers Care Evp And Chief Operating Officer Name Role Phone Unavailable Primary Care Provider Unavailabl e Encounter Details Date Type Department Care Team (Late st Contact Info) Description 10/27/2007 9:20 EDT Hospital Encounter [facility] [address] [place] [address] Yuniel Darling MD [address] [place] [address] Social History Tobacco Use Types Packs/Day [...] as of this encounter Plan of Treatment Pending Results Name Type Priority Associated Diagnoses Date /Time OUTSIDE IMAGES - MR NEURO Imaging 04/27/2012 17:01 EST OUTSIDE IMAGES - MR MSK Imaging 0 04/27/2012 17:01 EST OUTSIDE IMAGES - MR MSK Imaging 0 04/27/2012 17:01 EST OUTSIDE IMAGES - US BODY Imaging 08/23/2012 13:40 EDT Scheduled Orders Name Type Priority Associated Diagnoses Orde r Schedule OUTSIDE IMAGES - MR NEURO Imaging For medications that can be administered at any time during the hospitalization for visit such as immunizations. for 1 Occurrences starting 04/27/2012 OUTSIDE IMAGES - MR MSK Imaging For medications that can be administered at any time during the hospitalization for visit such as immunizations. for 1 Occurrences starting 04/27/2012 OUTSIDE IMAGES - MR MSK Imaging For medications that can be administered at any time during the hospitalization for visit such as immunizations. for 1 Occurrences starting 04/27/2012 OUTSIDE IMAGES - US BODY Imaging For medications that can be administered at any time during the hospitalization for visit such as immunizations. for 1 Occurrences starting 08/23/2012 documented as of this encounter Procedures Procedure Name Priority Date/Time Associated Diagnosis Comments SURGICAL PATHOLOGY Routine 09/27/2008 0:00 EDT documented in this encounter Results * SURGICAL PATHOLOGY (09/27/2008 0:00 EDT) Pathology Report: SURGICAL PATHOLOGY REPORT ? Reports generated via electronic interface contain original data; ? however they are lacking the format of the original report. ? Caution should be taken when reading/interpreti ng unformatted reports. ? Name: ? JT GRAYSON ? Accession #: ? [id number] ? : ? 1960 (Age: 48) ??F ? Collect Date: ? 09/27/2008 ? Location: ? [facility] ? Receive Date: ? 09/27/2008 ? Provider: ROLDAN WALKO MD ? Copy to: BOSSMAN F PIERRE DO ? Final Pathologic Diagnosis: ? A. ?Colon, cecum, polyp, biopsy: ? 1. ?Hyperplastic polyp. ? B. ?Colon, transverse, polyp, biopsy: ? 1. ?Hyperplastic polyp. ? C. ?Colon, sigmoid, polyps, biopsy: ? 1. ?Hyperplastic polyp. ? D. ?Colon, sigmoid, polyps, biopsies: ? 1. ?Cauterized polypoid mucosa. ??See comment. ? Comment: ? Deeper cuts on each of the above specimens (A ??D) were examined. ??In ? specimen (D), the nature of the polyp cannot be determined due to extensive ? cautery artifact. ??(Dr. Fitch)/[facility] ? Document reviewed and electronically signed by: ? GUICHO FITCH MD ? Report ??Date: 09/29/2008 17:18 ? By the signature above, the attending physician certifies that he/she has ? personally conducted a gross and/or microscopic examination of the described ? specimens and rendered or confirmed the above diagnosis. ? Specimen(s) Received: ? A. ?Cecal polyp ? B. ? Polyp transverse colon ? C. ? Polyps sigmoid ? D. ? Polyps sigmoid ? Clinical History: ? H/O colon adenoma; D. Grossly hyperplastic ? Gross Description: ? [facility] fixative labelled [place], Jt and cecal polyp ?? is a single 0.3 x 0.3 x 0.2 cm pink-najera irregular soft tissue. ??Submitted in ? toto as (A). ? Received in [facility]'s fixative labelled [place], Jt and polyp transverse ?? colon is a single 0.3 x 0.2 x 0.1 cm pink-najera irregular soft tissue. ??Submitted in toto as (B). ? Received in [facility]'s fixative labelled [place], Jt and sigmoid polyp is a single 0.3 x 0.2 x 0.1 cm pink-najera irregular soft tissue. ??Submitted in toto as (C). ? Received in [place]'s fixative labelled [place], Jt and polyp sigmoid ? grossly hyperplastic are four pink-najera irregular soft tissues ranging from 0.1 x 0.1 x 0.1 cm to 0.2 x 0.2 x 0.2 cm. ??Submitted in toto as (D1) and (D2). ??(Chika Ortiz)/[facility] ? End of Report ? [facility] 09/27/2008 09/27/2008 16: 13 EDT us Roldan Anderson MD PATHOLOGY ORDERABLES Final Resul t [facility] [address] [place] [address] documented in this encounter Visit Diagnoses Not on filedocumented in this encounter
--- OUTSIDE RECORDS SUMMARY | 2024-02-29 15:48 | XMS_ITS | Encounter Summary ---
Author Organization [facility] Address [address] [place] [address] Care Team Providers Care Sprigger Name Role Phone Andreas Kerns Primary Care Provider [phone] Encounter Details Date Type Department Care Team (Late st Contact Info) Description 09/22/2007 Results Only *[facility] Gastroenterology [facility] [address] [place] [address] Yuniel Darling MD [address] [place] [phone] Social History Tobacco Use Types Packs/Day [...] Procedure Name Priority Date/Time Associated Diagnosis Comments TSH Routine 09/22/2007 12:03 EDT documented in this encounter Results * TSH (09/22/2007 12:03 EDT) TSH 0.77 0.35 - 5.00 uIU/mL [facility] 09/22/2007 12:0 3 EDT 09/22/2007 12:06 EDT Yuniel Darling MD CHEMISTRY & BLOOD GAS ORDERA BLES Final Result [facility] [address] [place] [address] documented in this encounter Visit Diagnoses Not on filedocumented in this encounter Care Teams Sprigger Relationship Specialty Start Date End Date Andreas Kerns DO [address] [place] [address] PCP - General 09/29/08 07/11/10 documented as of this encounter
--- OUTSIDE RECORDS SUMMARY | 2024-02-29 15:48 | XMS_ITS | Encounter Summary ---
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 documented in this encounter Plan of Treatment Not on file documented as of this encounter Procedures Procedure Name Priority Date/Time Associated Diagnosis Comments CT ANGIO RUNOFF W/WO CONTRAST 09/28/2012 9:45 EDT documented in this encounter Results * CT ANGIO RUNOFF (09/28/2012 9:45 EDT) Anatomical Region Laterality Modality Other 09/28/2012 9:45 EDT 09/30/2012 8:42 EDT Narrative 09/30/2012 8:[address] ANGIO RUNOFF ??09/28/2012 9:45 AM Signs and Symptoms/Comments: ??440.21-Atherosclerosis of false pass arteries of the extremities with intermittent yahkmaufskrr-UOU-8-CM; CTA abdominal aorta w/runoff. Severe claudication with ultrasound showing aortic occlusion. Comparison: Abdominal aortic ultrasound September 09, 2012. CT was performed of the abdomen prior to the administration of contrast from the domes of the diaphragm to the pubic symphysis. Following the administration of 140 mL of IV contrast at 4.5 mL per second followed by a 40 mL saline flush. The CT was performed from the domes of the diaphragm through the toes in both arterial and venous phases. The images for reconstructed in coronal and sagittal planes and in maximum intensity projections. Three-dimensional reconstructions were also performed with curved planar reconstruction. Findings: There is no evidence of abdominal aortic aneurysm. There is significant atherosclerosis of the aorta with evidence of aortic occlusion just proximal to the iliac bifurcation. The common iliac arteries are both occluded but the external iliac arteries are reconstituted from the internal iliac arteries bilaterally. The internal iliac arteries appear to have significant collateral flow by paired lumbar arteries just prior to the aortic occlusion. There is minimal atherosclerotic calcification of the proximal common femoral arteries both the femoral artery and popliteal arteries are normal bilaterally. There is three-vessel runoff to the ankle bilaterally. The celiac artery is widely patent. The superior mesenteric artery is widely patent. The inferior mesenteric artery arises from the aorta proximal to its occlusion and demonstrates normal opacification. The left renal artery is normal. The there are 2 right renal arteries without evidence of stenosis. The lung bases demonstrate no significant abnormality. The liver is unremarkable. There are cholecystectomy clips in the gallbladder fossa. The pancreas and adrenal glands are without significant abnormality. There is a small amount of accessory splenic tissue off the inferior edge of the spleen. The kidneys are without significant abnormality. The bladder is unremarkable. There is no evidence of bowel obstruction or significant bowel pathology. There is no free fluid or free air in the abdomen or pelvis. There are minor degenerative changes of the spine. There is a sclerotic region in the central portion of the sacrum slightly asymmetrically to the right between the foramina of S1 and S2. A distinct lucency is seen in this region to suggest a fracture. Impression: 1. 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 2. Normal three-vessel runoff to the ankle in both legs. 3. Postcholecystectomy. 4. Sclerotic region in the midportion of the sacrum slightly to the right of the midline between the S1 and S2 neural foramen. While this may represent an insufficiency type fracture, no distinct lucency is visualized, correlation to risk factors for insufficiency fracture or recent trauma or pain is recommended. Most concerning would be a sclerotic metastasis. Correlation for a known malignancy or risk factor for malignancy is recommended. Further imaging with either a bone scan to identify other lesions and determine the metabolic activity of this abnormality or an MRI with contrast of the pelvis could be performed for further characterization I have personally reviewed the images and the above interpretation and agree with the findings. Procedure Note Yoandy June MD - 09/30/2012 CT ANGIO RUNOFF 09/28/2012 9:45 AM Signs and Symptoms/Comments: 440.21-Atherosclerosis of false pass arteries of the extremities with intermittent jaesszphzwwl-QBX-2-CM; CTA abdominal aorta w/runoff. Severe claudication with ultrasound showing aortic occlusion. Comparison: Abdominal aortic ultrasound September 09, 2012. CT was performed of the abdomen prior to the administration of contrast from the domes of the diaphragm to the pubic symphysis. Following the administration of 140 mL of IV contrast at 4.5 mL per second followed by a 40 mL saline flush. The CT was performed from the domes of the diaphragm through the toes in both arterial and venous phases. The images for reconstructed in coronal and sagittal planes and in maximum intensity projections. Three-dimensional reconstructions were also performed with curved planar reconstruction. Findings: There is no evidence of abdominal aortic aneurysm. There is significant atherosclerosis of the aorta with evidence of aortic occlusion just proximal to the iliac bifurcation. The common iliac arteries are both occluded but the external iliac arteries are reconstituted from the internal iliac arteries bilaterally. The internal iliac arteries appear to have significant collateral flow by paired lumbar arteries just prior to the aortic occlusion. There is minimal atherosclerotic calcification of the proximal common femoral arteries both the femoral artery and popliteal arteries are normal bilaterally. There is three-vessel runoff to the ankle bilaterally. The celiac artery is widely patent. The superior mesenteric artery is widely patent. The inferior mesenteric artery arises from the aorta proximal to its occlusion and demonstrates normal opacification. The left renal artery is normal. The there are 2 right renal arteries without evidence of stenosis. The lung bases demonstrate no significant abnormality. The liver is unremarkable. There are cholecystectomy clips in the gallbladder fossa. The pancreas and adrenal glands are without significant abnormality. There is a small amount of accessory splenic tissue off the inferior edge of the spleen. The kidneys are without significant abnormality. The bladder is unremarkable. There is no evidence of bowel obstruction or significant bowel pathology. There is no free fluid or free air in the abdomen or pelvis. There are minor degenerative changes of the spine. There is a sclerotic region in the central portion of the sacrum slightly asymmetrically to the right between the foramina of S1 and S2. A distinct lucency is seen in this region to suggest a fracture. Impression: 1. 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 2. Normal three-vessel runoff to the ankle in both legs. 3. Postcholecystectomy. 4. Sclerotic region in the midportion of the sacrum slightly to the right of the midline between the S1 and S2 neural foramen. While this may represent an insufficiency type fracture, no distinct lucency is visualized, correlation to risk factors for insufficiency fracture or recent trauma or pain is recommended. Most concerning would be a sclerotic metastasis. Correlation for a known malignancy or risk factor for malignancy is recommended. Further imaging with either a bone scan to identify other lesions and determine the metabolic activity of this abnormality or an MRI with contrast of the pelvis could be performed for further characterization I have personally reviewed the images and the above interpretation and agree with the findings. 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
--- OUTSIDE RECORDS SUMMARY | 2024-02-29 15:48 | XMS_ITS | Encounter Summary ---
Author Organization [facility] Address [address] [place] [address] Care Team Providers Care Molded Grid And Parts Inspector Name Role Phone Larisa Kinsey MD Primary Care Provider [phone] Reason for Visit * Reason Comments Abdominal Pain abdominal pain off a nd on for 2 yrs- worse in last couple of weeks Encounter Details Date Type Department Care Team (Late st Contact Info) Description 07/15/2010 10:00 EDT Office Visit Vascular Surgery and Endovascular Therapy - [address] [id number] Jony Valera MD [address] [place] [address], [address] [place] [phone] Mesenteric artery stenosis (CMS-HCC) (Primary Dx) Social History Tobacco Use Types Packs/Day Years Used Date Smoking Tobacco: Every Day Cigarettes 0.2 20 Tobacco Cessation:Ready to Q uit: Yes Alcohol Use Standard Drinks/Week Comments Not Asked [...] Sign Reading Time Taken Comments Blood Pressure 96/64 07/15/2010 0956 EDT left Pulse - - Temperature - - Respiratory Rate - - Oxygen Saturation - - Inhaled Oxygen Concentration - - Weight 48.5 kg (107 lb) 07/15/2010 0954 EDT Height 160 cm (5' 3) 07/15/2010 0954 EDT Body Mass Index 18.95 07/15/2010 0954 EDT documented in this encounter Progress Notes * Jony Valera MD - 07/15/2010 1026 EDT This office note has been dictated. JONY VALERA MD 07/15/2010 10:26 documented in this encounter Consult Notes * Jony Valera MD - 07/17/2010 1032 EDT DIVISION OF VASCULAR SURGERY CONSULTATION - 07/15/2010 Larisa Kinsey MD [address] [place] [address] Dear Elana: We are seeing Caty here today in the office. As you know, she is a 51-year-old woman who presents to us with chronic abdominal pain. She has been having problems with crampy abdominal pain for a while. Has some weight loss. The bowel pain is somewhat variable, sometimes at night following eating, some foods seem to make things worse, others do not, sometimes she gets the pain without taking food in. In any case, the potential of mesenteric ischemia has arisen. Really the mesenteric ischemic patient has three pathognomonic processes. 1. Food fear. 2. Postprandial pain that happens to half an hour after every meal. 3. Significant amount of weight loss. She has some of the symptoms, but not all three. Currently she had had a little bit of breakfast, did have some pain, but is comfortable here today in our office. She still smokes. No hypertension, no diabetes, no cholesterol problems, no strokes, no heart attacks, no heart failure, no abnormal heart beat. No emphysema. Her review of systems is otherwise significant for the appetite problems and weight loss along withvarious GI complaints including nausea, constipation and diarrhea, but otherwise her symptoms are recorded on our review of systems sheet. Her social history is such that she currently is smoking though she has cut back. Family history is negative for strokes, negative for aneurysms, but significant for heart heart disease. She is reportedly allergic to IBUPROFEN and MORPHINE. She is really not on medications. Blood pressure here today in the office was 90/60 bilaterally. She was 107 pounds and 5 feet 3. Could not appreciate carotid bruits. She had good groin pulses, good popliteal pulses, good pedal pulses. At this point in time, we did talk about some plaquing seen on her aorta by she CT scan and this isconsistent a 50-year-old smoker. She has normal pulses down in the feet, really no indication for lower extremity intervention. The only other screening tests, you may consider on her at some point as a carotid as this is the one arterial bed that we would fix in the absence of symptoms, but right now her symptoms are not clearly mesenteric. We did do a mesenteric study on her today, which shows no flow-limiting lesions in her celiac or SMA and CURTIS. At this point in time, we can fairly conclusively exclude mesenteric ischemia as a source of her belly pain. Thanks for sending her our way. Sincerely, Electronically Signed by Jony Valera MD 07/17/2010 10:32 Jony Valera MD - Jony Valera MD - JG Job ID: SM Doc ID: [id number] Ext Doc ID: [id number] cc: Larisa Kinsey MD documented in this encounter Plan of Treatment Not on file documented as of this encounter Visit Diagnoses Diagnosis Mesenteric artery stenosis (HCC-CMS)- Primary Stricture of artery documented in this encounter Care Teams Molded Grid And Parts Inspector Relationship Specialty Start Date End Date Larisa Kinsey MD [address] [place] [phone] PCP - General 07/12/10 08/17/13 documented as of this encounter
--- OUTSIDE RECORDS SUMMARY | 2024-02-29 15:48 | XMS_ITS | Encounter Summary ---
Author Organization [facility] Address [address] [place] [address] Care Team Providers Care Financial Market Dealer Name Role Phone Larisa Kinsey MD Primary Care Provider [phone] Reason for Visit * Reason Comments Follow-up 1 wk f/u staple yuval bethaine s/p aortobifemoral bypass 11/01 Encounter Details Date Type Department Care Team (Latest Contact Info) Description 11/16/2012 12:30 EDT Office Visit Vascular Surgery and Endovascular Therapy - [facility] [address] [place], [place] [phone] Larisa Kinsey MD [address] [place] [phone] Nurse Practitioner, [facility] Vasc Surg Atherosclerosis of igiugig arteries of the extremities with intermittent claudication [...] Progress Notes * Monica Rashid NP - 11/16/2012 1794 EDT SUBJECTIVE: Ms Kee is here today for removal of kim in the groins bilaterally. She is status post aortobifemoral bypass done for short distance claudication on 11/01/2012. I had last seen her last week for her initial postoperative exam, which showed her to be progressing as expected with some fatigue, but with very little pain and eating small meals. The diarrhea she had complained about last week has resolved. She can now say that the increased perfusion has definitely relieved the claudication. She continues to have less nausea. OBJECTIVE: The groin kim were removed without difficulty. They were Steri- Stripped. She has palpable pulses, DP and PT bilaterally. The abdomen is soft and nonerythematous. The Steri-Strips are partially removed at this point. ASSESSMENT AND PLAN: Removal of groin kim without difficulty. Incisions are clean, dry and intact. Ashley will return in 1 month for a final check. Since she has palpable pulses, I do not think she needs PVRs. Of note, regarding the abnormality in the sacral spine, I sent a letter that I wrote today with Ashley for her primary care doctor visit, which will be in 2 days. The recommendation from our neurosurgery department was for a bone scan to be ordered of the spine by Dr Bhakta, the primary care physician. I educated Ashley that once the bone scan of the spine was complete, if she needed any help fromAltaf Harrell, her primary care doctor can contact us to put her in touch with someone from neurosurgery. Ashley left in agreement with the plan and with her letter. Of note, I did also fax over the CT scan, which identified the area of sclerosis in the sacral spine. That was sent over to Dr Bhakta's office. documented in this encounter Plan of Treatment Not on file documented as of this encounter Visit Diagnoses Diagnosis Atherosclerosis of igiugig arteries of the extremities with intermittent claudication- Primary documented in this encounter Discontinued Medications Medication Sig Discontinue Reason Start Date End Da te HYDROcodone-acetaminop hen (LORTAB) 5-500 mg tablet Take 1 Tab by mouth every 6 hours as needed for Pain. Patient Stopped Taking 11/05/2012 11/16/2012 documented as of this encounter Care Teams Financial Market Dealer Relationship Specialty Start Date End Date Larisa Kinsey MD [address] [place] [phone] PCP - General 07/12/10 08/17/13 documented as of this encounter
--- OUTSIDE RECORDS SUMMARY | 2024-02-29 15:48 | XMS_ITS | Encounter Summary ---
Author Organization [facility] Address [address] [place] [address] Care Team Providers Care Director New Product Name Role Phone Larisa Kinsey MD Primary Care Provider [phone] Reason for Visit * Reason Onset Date Comments Appointment Related 10/29/2012 OR reminder call Encounter Details Date Type Department Care Team (Late st Contact Info) Description 10/29/2012 Telephone Vascular Surgery and Endovascular Therapy - [address] [phone] Tony Garza MD 111 [facility], [address] [place] [phone] Appointment Related (OR reminder call) Social History [...] on file documented as of this encounter Miscellaneous Notes * Telephone Encounter - Brice Melody - 10/29/2012 1412 EDT Surgery reminder call Left message on voicemail You are having surgery with Dr. Garza Your surgery date is Thursday November 01, 2012 At the [facility] Please check in at 6:00am at registration. You can not have any solid food or dairy products after midnight, but you may have clear liquids until 3:25am. After 3:25am you may only have necessary medication with a sip of water. You must have a meals on wheels driver with you the day of surgery. If you are having varicose vein surgery please refrain from shaving prior to your procedure. Have you had any changes to your health recently, a cough, cold, fever or rash? N/a. Thank you for your time documented in this encounter Plan of Treatment Not on file documented as of this encounter Visit Diagnoses Not on filedocumented in this encounter Care Teams Director New Product Relationship Specialty Start Date End Date Larisa Kinsey MD [address] [place] [phone] PCP - General 07/12/10 08/17/13 documented as of this encounter
--- OUTSIDE RECORDS SUMMARY | 2024-02-29 15:48 | XMS_ITS | Encounter Summary ---
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 Clark Lyn MD Referral ID Status Reason Start Date Expiration Date V isits Requested Visits Authorized [id number] Closed Specialty Services Required 11/06/2012 1 1 Question Answer Correction Referral - Assessment: Certified Wound Ostomy Continence Nurse Assessment, Skin Integrity Encounter Details Date Type Department Care Team (Latest Contact Info) Description 11/01/2012 5:35 EDT - 11/06/2012 9:50 EDT Hospital Encounter [facility] [address] [place] [id number] Tony Garza MD [address] [facility], [facility] [address] [place] [address] Atherosclerosis of gambell arteries of the extremities with intermittent claudication (Primary Dx); Stress hyperglycemia Discharge Disposition: Home-Health Care Svc Social History Tobacco Use Types Packs/Day Years [...] Sign Reading Time Taken Comments Blood Pressure 121/62 11/06/2012 0937 EDT Pulse 84 11/06/2012 0937 EDT Temperature 36.5 ??C (97.7 ??F) 11/06/2012 0603 EDT Respiratory Rate 18 11/06/2012 0603 EDT Oxygen Saturation 96% 11/06/2012 06 EDT Inhaled Oxygen Concentration - - Weight 54 kg (119 lb 0.8 oz) 11/02/2012 0400 EDT Height 162.6 cm (5' 4.02) 11/02/2012 040 EDT Body Mass Index 20.42 11/02/2012 0400 EDT documented in this encounter Mental Status * Because of a physical, mental, or emotional condition, do you have serious difficulty concentrating, remembering, or making decisions? (5 years old or older) Answer Entry Date Author Yes 11/02/2012 4:00 EDT Papito Ho RN documented in this encounter Discharge Summaries * Clark Lyn MD - 11/02/2012 1340 EDT Discharge Summary Chief Complaint/Reason for Admission: Bilateral lower extremity claudication Principal/Final Diagnosis: Distal aortic occlusion, Bilateral common iliac occlusive disease Principal Procedure: Aortobifemoral bypass with 14x7 bifurcated Dacron graft Date: 11/01/2012 Secondary Procedures: None Prognosis: good Condition at Discharge: Improved or Stable Relevant Studies at Discharge: Chest x-ray: No evidence of pneumothorax, new patchy opacity suggestive of atelectasis. Assessment at Discharge: Vital signs: Patient Vitals for the past 12 hrs: BP Pulse Heart Rate Resp Temp SpO2 O2 Device 11/06/12 0603 108/50 mmHg - 85 BPM 18 36.5 ??C (97.7 ??F) 96 % Room air 11/06/12 0206 102/64 mmHg - 77 BPM 16 37.2 ??C (99 ??F) 96 % Room air 11/05/12 2312 101/43 mmHg - - - - - - 11/05/12 2228 87/40 mmHg - 84 BPM 18 36.7 ??C (98.1 ??F) 96 % Room air 11/05/12 2114 104/50 mmHg 93 - - - - Room air Hospital Course: Mrs. Ashley Kee is a 52 y.o. year old female with a PMH significant for Peripheral Artery Disease, Thoracic Outlet Syndrome, and back/joint pain who presented to Vascular Clinic with leg pain while walking, right side worse than left. She was found to have non-palpable femoral pulses and ankle branchial indexes of 0.5 on the right and 0.[address] A [address] Angiogram showed occlusion of the distal aorta extending through the common iliac arteries. Patient was deemed to be an appropriate candidate for aortobifemoral bypass. As such, on 11/01/2012 , Mrs. Ashley Kee was taken to the OR with Dr. Garza, where she underwent a Aortobifemoral bypass . Intra-operative findings included a palpable femoral (graft) pulsebilaterally, and palpable dorsalis pedis and posterior tibial pulses bilaterally. She was transferred to the SICU postoperatively in stable conditions. Her SICU postoperative course was significant for acute blood loss anemia (postoperative [id number]), which was treated with 1 unit Packed RBC transfusion. She was hypotensive postoperative without intravenous pressor therapy, with systolic blood pressure ranging from 70-90 in the immediate postop period. She also initially had low urine output that was treated with fluid boluses overnight. She recovered nicely in the unit, with stable blood pressure, good urine output, stable vascular exam, and no pain complaints. She was therefore transferred to the general floor on [address] in stable condition. Patient had no history of Diabetes, however was found to have elevated blood glucoses postoperatively. A Hemoglobin A1c was drawn, which came back at 5.8. She was seen by Endocrinology, which concluded hyperglycemia was most likely secondary to acute stress, but a supplemental Aspart scale was started anyway. On 11/05/2012 Mrs. Ashley Kee was tolerating a General diet. She was able to ambulate well. Her pain was controlled with oral pain medications. As such she was discharged home with home nursing on 11/05/2012. She was told to follow up with her primary care doctor in 5-7 days. She was instructed to follow up with Dr. Garza on 11/10/12 at 9:30am. Future Appointments Date Time Provider Department Center 11/10/2012 9:30 Tony Garza MD [facility] VascSurg None 11/22/2012 8:00 Brando Katz MD [facility] Sport None Patient was noted as incidental finding on CT scan (see impression below) to have a sclerotic lesion of the midportion of the sacrum between S1 and S2 neural foramen, with concern for potential sclerotic metastasis v. More likely insufficiency fracture. Patient was informed of the finding and set up to see Neuro Spine in an outpatient setting. There is no immunization history on file for this patient. Relevant Studies at Discharge: CT ANGIOGRAPHY (09/28/2012): Impression: 1. Occlusion of the distal aorta [...] may represent an insufficiency type fracture, no distinctlucency is visualized, correlation to risk factors for [...] above interpretation and agree with the findings. Last Lab Results at Discharge: BUN: Lab Results Component Value Date BUN 9* 11/05/2012 Creatinine: Lab Results Component Value Date CREATININE 0.52 11/05/2012 CBC: Lab Results Component Value Date WBC 10.22 11/05/2012 RBC 2.60* 11/05/2012 HGB 7.7* 11/05/2012 HCT 22.7* 11/05/2012 MCV 87 11/05/2012 MCH 29.6 11/05/2012 MCHC 33.9 11/05/2012 PLT 235 11/05/2012 DIFFTYPE Automated 11/05/2012 Electrolytes: Lab Results Component Value Date NA 136 11/05/2012 K 3.5 11/05/2012 CL 103 11/05/2012 CO2 28 11/05/2012 cc: PCP: LARISA MOSS MD Referring Prov:Larisa Tio Discharge Summary Completed: Yes Clark Coffey MD Pager #[phone] 11/06/2012 7:14 Cosigned by Tony Garza MD at 12/02/2012 11:00 EDT documented in this encounter Discharge Instructions * Discharge Instructions* Dayana Fabian PA - 11/05/2012 11:55 EDT TAKING CARE OF YOURSELF AFTER ABDOMINAL SURGERY: DOs and DON???Ts Your doctor has discharged you from the hospital. The following information will help guide your recovery. Each patient is unique. However, these general guidelines will promote healing. 1. Activity: We encourage alternating walking with rest periods. You can expect that your energy level will be reduced for about eight weeks. You should rest when you feel tired. You should not drive until you have had your follow-up appointment in two to four weeks. Going up stairs is OK, just go slowly. Do: Take short frequent walks and gradually increase your activity. Don???t: Don???t drive until you are completely healed and you have had your postoperative check with your surgeon. For six weeks after the operation you should not lift anything heavier than 10 pounds.(the weight of a gallon of milk). 2. Diet: It is normal after abdominal surgery to have a decreased appetite. However, healing depends on getting good nutrition. If your appetite is poor, try eating small frequent meals 4-6 times per day. Youshould eat a well balanced diet including protein, vegetables, fruits, and fortified cereals. Do not drink alcohol for the first two weeks you are home. Do: Eat a well balanced diet with small frequent meals. If your appetite is poor, drink Ensure or Boost supplements instead of your meal. Fruits and vegetables will help prevent constipation. Don???t: Don't skip meals. Don???t overload your system with large meals. 3. Medications: In general, you will resume all of the medications you were on before your surgery. Your doctor andnurse practitioner will review all of your medications and any changes made while you were in the hospital. You may be asked to take an aspirin every day if you are not already doing so. You may alsobe asked to take new medications called beta blockers and statins every day for several weeks. These medications protects the heart while you are healing. You will receive a prescription for pain medicine. Remember that pain medicines can be sedating. Take pain medication before the pain gets severe. You may take a stool softener such as Colace while you are on pain medication. Significant changes in your medications will be phoned to your doctor???s office. If you have been on a blood thinner such as coumadin (same as Warfarin), you will be advised of what dose to take and when to follow up with necessary blood tests. Do: Continue your medications as prescribed at the time of discharge. Be sure to follow instructions for blood tests and follow up if you are taking coumadin (Warfarin). You may switch to Tylenol or Advil when pain decreases (unless allergic). You should see your regular primary care provider in 7-10 days to review your medications. Don???t: Don???t stop taking medications without consulting your doctor. 4. Care of your incisions: You may shower as you wish. You should not take a bath, however. You may gently wash your incisionswith soap and water. Do not remove the steri strips, (white pieces of tape on your skin) They will fall off in time. If you have groin incisions, place a 4x4 dressing over the kim (or stitches) every day or more as needed to keep clean and dry. If you have visiting nurses helping you, they willgive you specific instructions. If you have groin incisions or kim, they will be removed in about two weeks. Do: Check your incisions every day. Mild redness at the incision site is normal. Call your doctor if there is drainage or if redness increases or if the edges separate. Call if you have fever or chills, nausea or vomiting, or increasing abdominal pain. Don???t: Don???t remove the steri strips. Don???t take a tub bath or go swimming until after your surgeon has examined you at the post operative visit. Don???t allow your incisions to get dirty. 5. Follow-up appointments: You will see your surgeon in about two to four weeks from the date of surgery. You should make an appointment to see your regular primary care provider in 7-10 days for a blood pressure and medication check. Do: Keep your follow-up appointments. Don???t: Don???t put off calling your surgeon if your incision becomes red, if you develop nausea or vomiting, or develop a fever or increasing abdominal or leg pain. Don???t skip any appointments. Make sure to have your blood drawn if a test has been ordered. Follow up with Dr. Garza in the Vascular Surgery clinic on 11/10/2012 at 9:30 AM Vascular Surgery Clinic 5th floor [facility], [facility] . Remember: you have had a major operation. Take things slowly. It is normal to have energy one day and then to feel worn out the next day. Pay attention to nutrition, this is very important for healing. If you have a concern: the Vascular Surgery telephone number is [phone]. documented in this encounter Medications at Time [...] for Pain. 20 Tab 0 11/05/2012 11/16/2012 metoprolol (LOPRESSOR) 25 mg tablet Take 0.5 Tabs by mouth 2 times daily. 30 Tab 0 10/18/2012 03/12/2015 PEG 3350-Electrolytes (MIRALAX) 17 gram packet Take 17 g by mouth daily as needed (constipation ). 11/06/2012 03/12/2015 senna (SENOKOT) 8.6 mg tablet Take 1 Tab by mouth at bedtime as needed for Other (constipation ). 11/06/2012 03/12/2015 simvastatin (ZOCOR) 20 mg tablet Take 2 Tabs by mouth daily. 30 Tab 0 10/18/2012 03/12/2015 documented as of this encounter Ordered Prescriptions Prescription Sig Dispense Quantity Refills Last Filled Start Date End Date acetaminophen (TYLENOL) 500 mg tablet Take 1-2 Tabs by mouth every 6 hours as needed for Pain. 11/05/2012 PEG 3350-Electrolytes (MIRALAX) 17 gram packet Take 17 g by mouth daily as needed (constipation ). 11/06/2012 5 senna (SENOKOT) 8.6 mg tablet Take 1 Tab by mouth at bedtime as needed for Other (constipation ). 11/06/2012 5 HYDROcodone-acetam inophen (LORTAB) 5-500 mg tablet Take 1 Tab by mouth every 6 hours as needed for Pain. 20 Tab 0 11/05/2012 3 docusate sodium (COLACE) 100 mg capsule Take 1 Cap by mouth 2 times daily as needed for Constipation. 11/05/2012 5 documented in this encounter Discharge Disposition Disposition Code Departure Means Destination Home-Health Care Svc documented in this encounter Progress Notes * Tarah De Souza RN - 11/06/2012 1235 EDT Called [facility] at [phone] to give report, call was received by answering service; gave name and call back number, waiting for return call * Tarah De Souza RN - 11/06/2012 1052 EDT Discharge Note D - Patient ordered for discharge today. A - Patient given prescriptions, medication information sheets and After Visit Summary. Medication list, follow up appointments and care instructions reviewed with patient. IVs and ID band removed. R - Patient questions reviewed and addressed prior to discharge. Patient denied pain. Patient left the unit in a wheelchair in stable condition at 0950. No distress noted. 11/06/2012 10:52 Tarah De Souza RN * Robert Mcgee MD - 11/06/2012 0703 EDT Vascular Surgery Daily Progress Note Patient: Ashley Kee Admit Date: 11/01/2012 Date of Service: 11/06/2012 POD: 5 (11/01/2012) Procedure: Aortobifemoral bypass 24 Hour Events: ?? tolerated diet, no acute overnight events Assessment: Active Hospital Problems Diagnoses ??? 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 female with history of bilateral leg claudication now POD# 5 s/p Aortobifemoral bypass. She continues to do well. The graft is patent, confirmed by the presence of distal pulses bilaterally. Plan: ?? Tolerating diet ?? Probable discharge today ?? OOB and ambulating ?? Discharge to home with rolling walker Subjective: Bowel movement last night, passing gas. Continued to tolerate diet. Objective: Exam: Gen: NAD, responding appropriately. NGT in place. Pulm: CTAB CV: RRR, no m/r/g, clear S1 + S2 Abd: Soft, non-tender, non distended, hypoactive bowel sounds Ext: Lower extremities normothermic bilaterally Incision/Dressing: Abdominal incision clean, dry, and intact, no erythema. Groin Incisions: C/D/I Pulses DP PT Popliteal Right 2+ 2+ 2+ Palp Left 2+ 2+ 2+ Palp Robert Mcgee MD PGY-3, [id number] 11/06/2012 7:03 * Harmony Ag, PT - 11/05/2012 1158 EDT Rehabilitation Therapies [facility] Physical Therapy Discontinue/Discharge Note Date of Service: 11/05/2012 Precautions: Up with assistance SUBJECTIVE: I am feeling much better, I am eating OBJECTIVE: Intervention Completed Today: Time (treatment time and duration): 11:30/25 minutes Therapeutic activity: Vital signs were monitored and were stable throughout physical therapy session. HR 80, BP 100/48, 96% on room air, IS to 1200, RPE 0/10 Supine to sit = independent Sit to stand = independent no assistive device Gait = patient ambulated 100 feet with no assistive device, independent no loss of balance Stairs = patient climbed up and down 3 steps with railing, with supervision, Patient in recliner: Patient performed there -ex independent, ankle pumps, long arc quad 10 reps Patient/Family Education: Topic: Balance Bed mobility Breathing exercises Discharge planning Exercise Gait Role of therapy Safety Stairs Transfers Learner: patient Method: verbal Barriers to Learning: none noted Outcome: verbalized understanding and returned demonstration Team Communication: Patient has been seen in physical therapy since 11/03/2012 for Therapeutic exercises, Therapeutic activities and Gait training. In this reporting period 11/03/2012 to 11/05/2012 the patient has been seen by a physical therapist. Frequency: daily 3-5 times per week as determined by the patient's medical stability, tolerance to activity and progression of functional activities. Intensity: 30 minutes per session. Duration: During this hospitalization. Please refer to the physical therapy notes for specifics on the patient's functional status and treatment sessions. Relevant objective findings: BALANCE, LOCOMOTION, AND GAIT: Please refer above to Interventions Completed Today SELF-CARE, HOME MANAGEMENT, WORK, AND LEISURE: Please refer above to Interventions Completed Today ASSESSMENT: Physical therapy services in this setting have been discontinued secondary to: Goals met Physical Therapy Diagnosis: Patient presents with decreased functional mobility secondary to impairments of pain, generalized weakness and decreased tolerances to activity related to her bilateral leg claudication now s/p Aortobifemoral bypass. Physical Therapy Prognosis: Patient has made steady progress, all goals met. Today patient is able to ambulate independently with no assistive device. Recommend discharge home, when medically appropriate, no assistive device needed, no home PT needed. Will discontinue this referral. Recommend patient ambulated 3-4 times per day here in hospital--patient agreed. Short-Term Goals: n/a n/a Long-Term Goals: 7-10 days (all goals met) Pt will perform bed mobility with supervision Pt will perform sit to stand with supervision Pt will ambulate with supervision 50-100 feet Pt will climb 2-3 steps with railing with minimal contact assist of one Pt will perform there-ex with cues Pt will perform above with RPE less than 4/10, O2 sat greater than 90%, perform IS correctly with min cues PLAN: D/C Physical Therapy Recommended Discharge Destination: Home with caregiver Recommended Discharge Services: No physical therapy follow-up services at this time Recommended Equipment Needs: No equipment necessary Other recommendations: No other consults recommended at this time Pager: [phone] Harmony Ag, PT 11/05/2012 11:58 * Dayana Fabian PA - 11/05/2012 0714 EDT Vascular Surgery Daily Progress Note Patient: Ashley Kee Admit Date: 11/01/2012 Date of Service: 11/05/2012 POD: 4 (11/01/2012) Procedure: Aortobifemoral bypass 24 Hour Events: ?? Epidural and cuellar catheter removed, met due to void ?? Diet advanced to clears Assessment: Active Hospital Problems Diagnoses ??? 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 female with aortoiliac occlusive disease and severe lower extremity claudication, now POD# 4 s/p Aortobifemoral bypass who is doing well post-operatively, pain adequately controlled with oral medication, returning bowel function, palpable pedal pulses. Plan: ? Start to advance diet to regular ?? Transition to PO meds today ?? OOB and ambulating ?? PT recommendation for discharge to home with rolling walker, TBD re: home PT Subjective: No acute issues, had episode last night when she felt slightly anxious overnight, reports doing ok for pain control with acetaminophen alone. Tolerating clear liquids, requesting to eat regular diet.Denies chest pain, shortness of breath, nausea or vomiting. Objective: Exam: Gen: alert, cooperative, no acute distress Pulm: clear to auscultation bilaterally CV: regular rate and rhythm Abd: Soft, appropriately tender, non distended, normoactive bowel sounds Incision/Dressing: Abdominal incision and bilateral groin Incisions - intact, no drainage or erythema Pulses DP PT Right 2+ 2+ Left 2+ 2+ * Harmony Ag PT - 11/04/2012 0997 EDT Rehabilitation Therapies [facility] Physical Therapy Encounter Note Date of Service: 11/04/2012 SUBJECTIVE: I am feeling better OBJECTIVE: Intervention completed today: Time/Treatment Duration: 11:30/25 minutes Vital signs were monitored and were stable throughout physical therapy session. Therapeutic activities: Patient in bed agreed to PT, continues to complain of burning pain feet Supine to sit = to patients left, supervision with verbal cues, patient using bed features to assist with supine to sit, discussed bed flat to practice for preparation for home, patient declined flatbed Sitting on edge of bed supervision Adjusted rolling walker to patient height Sit to stand = close supervision close supervision verbal cues for hand placement Standing with rolling walker--patient flexed over walker, very reluctant to stand straight complains of stretching of abdominal incision--highly encouraged patient to stand tall Gait = patient ambulated 50 feet with minimal contact assist of one, patient slow flexed over rolling walker, knees flexed, patient complaining of burning pain B feet Stand to sit = minimal contact assist of one, verbal cues for hand placement Patient/Family Education: Topic: Assistive device/technique Balance Bed mobility Gait Role of therapy Safety Transfers Learner: patient Method: verbal Barriers to Learning: none noted Outcome: needs practice, verbalized understanding and returned demonstration Team Communication: ASSESSMENT: Patient able to tolerate ambulation, main limiting barrier is complaint of burning pain of feet. Continue to recommend discharge home with family, she will need a rolling walker for home. PLAN: Continue per plan of care Recommended Discharge Destination: Home with caregiver Recommended Discharge Services: To be determined Recommended Equipment Needs: Rolling walker Other recommendations: No other consults recommended at this time Primary Therapist: Pager: [phone] Harmony Ag, PT 11/04/2012 13:07 * Azar Callaway - 11/04/2012 1130 EDT Anesthesia Pain Service Subjective: This is a 52 y.o. year old female now POD # 3. Pt doing well this morning. Slightly apprehensive tohave PCEA pulled out. Per primary team pt now passing gas, and they would like epidural dc'd. Objective: Vitals: Blood pressure 97/46, pulse 92, temperature 36.6 ??C (97.9 ??F), temperature source Tympanic, resp. rate 16, height 162.6 cm (64.02), weight 54 kg (119 lb 0.8 oz), SpO2 92.00%. Coagulation Status: ASA 81 QD, Lovenox 40 mg QD (last dosed last evening) Scheduled Medications: Current Facility-Administered Medications Medication Route Frequency ??? sodium chloride 0.9 % flush 3 mL intravenous Q8H ??? aspirin suppository 300 mg rectal DAILY ??? benzocaine-menthol (CEPACOL) 15-3.6 mg lozenge 1 Lozenge buccal PRN ??? metoprolol (LOPRESSOR) 2.5 mg in sodium chloride (NS) 0.9 % 50 mL IVPB intravenous Q6H ??? dextrose 50 % solution 12.5 g intravenous PRN ??? glucagon (human recombinant) injection 1 mg intramuscular PRN ??? insulin aspart (NOVOLOG FLEXPEN) injection subcutaneous Q6H ??? naloxone (NARCAN) injection 0.1 mg intravenous PRN ??? bupivacaine-fentanyl in NS 0.0625 %-2 mcg/mL 250 mL epidural epidural CONTINUOUS ??? acetaminophen (TYLENOL) tablet 500-1,000 mg oral Q6H ??? docusate (COLACE) liquid 100 mg per ng tube BID ??? ondansetron (PF) (ZOFRAN) injection 2-4 mg intravenous Q6H PRN ??? famotidine (PEPCID) 20 mg/2 mL injection 20 mg intravenous Q12H Or ??? famotidine (PEPCID) tablet 20 mg per ng tube Q12H ??? enoxaparin (LOVENOX) injection 40 mg subcutaneous Q24H Allergies: Allergies Allergen Reactions ??? Ibuprofen Hives ??? Morphine Nausea And Vomiting ??? Percocet (Oxycodone-Acetaminophen) Nausea And Vomiting Labs: Lab Results Component Value Date WBC 11.03 11/04/2012 HGB 8.1* 11/04/2012 HCT 24.7* 11/04/2012 MCV 88 11/04/2012 PLT 191 11/04/2012 No results found for this basename: INR, PROTIME Examination: General: A&O X3 Neuro: Motor Bilateral LE 5/5 Site: C/D/I, epidural pulled, tip intact. Analysis and Plan: APS to sign off Laura Richardson MD 11/04/2012, 11:31 Attestation statement: I saw and examined the patient with the resident/fellow. I agree with the findings and plan of care documented in the resident's/fellow's note. * Jonathan Anthony MD - 11/04/2012 0640 EDT Vascular Surgery Daily Progress Note Patient: Ashley Kee Admit Date: 11/01/2012 Date of Service: 11/04/2012 POD: 2 (11/01/2012) Procedure: Aortobifemoral bypass 24 Hour Events: ?? Endocrine rec: Continue FS monitoring for rest of day, stop FS monitoring and supplemental aspart if stable ?? Epidural continued per anesthesia Assessment: Active Hospital Problems Diagnoses ??? 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 female with history of bilateral leg claudication now POD# 3 s/p Aortobifemoral bypass. She continues to do well. The graft is patent, confirmed by the presence of distal pulses bilaterally. Plan: ?? D/c NGT ?? Start to advance diet with sips of clears ?? Possibly d/c epidural and cuellar later today - received last dose lovenox last night ?? Transition to PO meds today ?? OOB and ambulating ?? Arrange home health services with the [facility] Subjective: Passed gas overnight. No complaints. Has not walked yet. Objective: Exam: Gen: NAD, responding appropriately. NGT in place. Pulm: CTAB CV: RRR, no m/r/g, clear S1 + S2 Abd: Soft, non-tender, non distended, hypoactive bowel sounds Ext: Lower extremities normothermic bilaterally Incision/Dressing: Abdominal incision clean, dry, and intact, no erythema. Groin Incisions: C/D/I Pulses DP PT Popliteal Right 2+ 2+ 2+ Palp Left 2+ 2+ 2+ Palp Jonathan Anthony MD PGY-1 11/04/2012 6:40 [phone] * Nancy Payan - 11/03/2012 1510 EDT SPIRITUAL CARE NOTE Patient: Ashley Kee 11/03/2012 Location: [id number] Date of : 1960 Ashley Kee who is listed as Gnosticism has received a visit from the Spiritual Care Department on11/03/2012. VISIT INITIATED by Rounding Visit x Initial Visit by S.C. Department Referral from Patient / Family Follow-up visit x Referral from Treatment Team Time: 13:45 End of Life / Comfort Care / Hospice Urgent Request - Time: 2 Level of Visit UNAVAILABLE FOR VISIT Patient Discharged Patient sleeping Patient out of room Patient with Treatment Team ISSUES & INTERVENTIONS: x Listened to patient's story Concerned about life after Facilitated Hindu Needs / Rituals Conflicted or challenged belief system x Prayer / [place] Isolated from pentecostalism community Anointing of the Sick Conflict between pentecostalism beliefs and treatment Communion Facilitated exploration of Guilt Rastafari Facilitated exploration of Hopelessness Naming Ceremony Facilitated identification of Emotions Facilitated exploration of meaning/purpose Granados and Prayers for the Dying Facilitated exploration of Discouragement Present at time of (w/ in 2 hrs) Facilitated Grief / Bereavement Work Consoled Family Encouraged focus on present moment Prayers for the Encouraged Self-care Contacted DAMARIS Connected with Community Resources Family Support x Provided Reading Materials Advocated for patient / family Relaxation through Music Celebrated with patient / family Led a Guided Meditation Consulted with interdisciplinary team Assisted with Advanced Directives Connected with Community Resources Facilitated exploration of Ethical Issues Clarified, confirmed, information Facilitated Decision Making Assisted with the Clarification of Goals SPIRITUAL ISSUE & ASSESSMENT: Pt was frustrated with the slowness of her healing and realized she was being taught patience and did not like it. She is also missing her children who live on the other side of the [place]. PLAN: No Follow up necessary - Needs met Continued Family Support Continued Support from [employer] following patient Make a Referral to Continued Support with Volunteer Visits Connect with Community Supports REASON for Follow up: Nancy Payan, [employer] Spiritual Care Department Michael [phone], [phone] Spiritual Care is available 24 hours a day. Office hours are 0800 to 1700 Thursday through Thursday and 0830 to 1630 Thursday and Thursday. Interfaith and Buddhist chaplains are available 24 hours a day. For routine consults please call and leave a message with the Spiritual Care Office ([phone]) and patients will be seen within 24 hours. Forall emergent consults page the Moravian or Interfaith on-call [employer] through [facility] ([phone]). * Oneida Mcallister - 11/03/2012 1254 EDT Case Management Assessment Working Diagnosis/Presenting Problem: Bilateral common iliac occlusive disease Living Arrangements: The patient lives with her spouse in a three story house in [place], [place]. There are three stairs to the front entrance of the house, eighteen stairs to the second level, and eighteen stairs to the third level. Functional Status (psychosocial and physical): The patient is independent with ADl's at baseline. Social Supports: Spouse and daughter, who both live in the home. Existing Community Resources: The patient's PCP is Dr. Larisa Moss. The patient uses the [facility] pharmacy in [place], [place]. Advanced Directives/DPOA: The patient has an AD. Her spouse is listed as the DPOA. Cultural/Spiritual Needs: Caodaism. The patient requested a visit from the spiritual care office. The CM made a referral. Insurance/Financial Needs: [place]. with RX coverage. Transportation Needs: The patient's spouse or daughter will transport the patient home via a private vehicle. Patient Goals: Discharge home when medically ready Assessment and Discharge Care Plan: Ashley Kee is a 52 year old female with history of bilateralleg claudication now POD #2 s/p Aortobifemoral bypass. The CM met the patient. Referral made to Leila, the [facility] liaison, for home health services with the [facility]. The CM will follow the patient to discharge. Oneida Mcallister RN BSN CCM #[id number] * Harmony Ag, PT - 11/03/2012 1250 EDT Rehabilitation Therapies [facility] Physical Therapy Initial Evaluation Note Date of Service: 11/03/2012 Reason for Referral: Evaluate and treat Precautions: Up with assistance SUBJECTIVE: I feel miserable Pain: No specific complaint of pain, mainly with nausea, nursing gave patient zofran, once standing patient complaining of severe burning pain B feet, 01/13 OBJECTIVE: Patient Profile: Patient is a 52 y.o. female admitted on 11/01/2012 secondary to *AORTO BI-FEMORAL BYPASS The patient lives at [address] [place] [id number] Kee: Atherosclerosis of gambell arteries of the extremities with intermittent claudication Ashley Kee is a 52 y.o. female with history of bilateral leg claudication now POD# 3 s/p Aortobifemoral bypass. She continues to do well. The graft is patent, confirmed by the presence of distal pulses bilaterally. Home environment Lives: with Caregiver Support: 24-hour assist Equipment Available: None Home Environment: House Home Layout: multi-level--will be staying on the first floor Prior Level of Function: Independent and only able to 30-50 feet before having pain, needing to sitdown Services prior to admission: None Work/Leisure: Retired Medical/Surgical History: Current: Patient Active Problem List Diagnoses ??? Chronic right shoulder pain ??? Atherosclerosis of gambell arteries of the extremities with intermittent claudication ??? Fear of needles Past: Past Medical History Diagnosis Date ??? Wears glasses ??? Back pain ??? Joint pain ??? Numbness ??? Peripheral artery disease ??? Thoracic outlet syndrome Right side. Medical management as of 10/18/12 Past Surgical History Procedure Date ??? Hysterectomy ??? Cholecystectomy ??? Appendectomy ??? Shoulder surgery 11/14 AND 05/18 RIGHT SHOULDER ??? Arterial bypass surgry 11/01/12 Aortobifemoral bypass using a 14 x 7 mm [place] graft (Dr. Garza) Medications: Medications reviewed Arousal, Attention, and Cognition: Orientation: Oriented to person, place, and time Cardiopulmonary: Vital Signs: Activity Heart rate (bpm) Blood Pressure (mmHg) Respiratory rate (breaths/min) Oxygen Sat/ Fractions of inspired Oxygen SPO2/FIO2 % Pre 90 100/50 93% on room air During Post 91 101/55 94% on room air Integumentary/Anthropometric Characteristics: Palpation/Observation: Edema: edema Posture: Forward head and Protracted shoulders Range of Motion and Joint Integrity: Active Range of Motion: Within normal limits Upper Quarter: Left Upper Extremity: Right Upper Extremity: Cervical Spine: Lower Quarter: Left Lower Extremity: Right Lower Extremity: Lumbar Spine: Muscle Performance: Strength: Manual muscle test completed in: supine with head of bed up 30 degrees Upper Quarter: Left Upper Extremity: grossly 5/5 Right Upper Extremity: grossly 5/5 Cervical Spine: NE Lower Quarter: Left Lower Extremity: hips grossly 4/5, knees and ankle 5/5 Right Lower Extremity: hips grossly 4/5, knees and ankle 5/5 Lumbar Spine: NE Sensation, Reflexes, and Nerve Integrity: Light Touch Sensation: Upper Quarter: Intact C2-T1 Lower Quarter: Intact for lower extremities Neuromotor Function/Development: No problems noted Balance, Locomotion, and Gait: Balance: Sitting supervision Standing face to face for support Locomotion: Not evaluated as wheelchair mobility does not apply to this patient. Gait: Assistive device/distance/assist/deviations: Patient ambulated 6 feet with minimal contact assist of one, patient slowly shuffled to chair, with hand held assistance, slow shuffling gait Self-Care, Home Management, Work, and Leisure: Supine to sit = minimal contact assist of, with verbal cues for log roll technique, Sitting on edge of bed with close supervision Sit to stand = minimal contact assist of one, with verbal cues for hand placement Stand to sit = minimal contact assist of one, verbal cues to reach back to recliner Informed Consent: The patient consented to the physical therapy evaluation. The patient agrees to and understands the physical therapy treatment plan and goals. Interventions Completed Today: Physical Therapy today at: 11:00 Examination: 25 minutes Intervention: n/a minutes Intervention included: No interventions completed today Patient/Family Education: Topic: Balance Bed mobility Discharge planning Role of therapy Safety Transfers Learner: patient Method: verbal Barriers to Learning: none noted Outcome: needs practice Team Communication: ASSESSMENT: Upper Quarter Screen: Given new use of assistive device, the patient has been instructed in proper use of upper extremity during mobility, prevention of overuse injuries, and signs to watch for. Physical Therapy Diagnosis: Patient presents with decreased functional mobility secondary to impairments of pain, generalized weakness and decreased tolerances to activity related to her bilateral leg claudication now s/p Aortobifemoral bypass. Physical Therapy Prognosis: Patient seen today for PT evaluation. Patient cooperative, fearful of moving but with encouragement agreed to get out of bed. Patients main limiting barrier is pain, burning pain with standing B feet. Anticipate slow steady progress with ongoing PT in this setting. Anticipate discharge home with family, she would benefit from a rolling walker for home (will need a script) and possibly home PT depending on her progress over the next couple of days. Recommend nursing continue to assist patient out of bed and encourage ambulation. Short-Term Goals: n/a ?? n/a Long-Term Goals: 7-10 days Pt will perform bed mobility with supervision Pt will perform sit to stand with supervision Pt will ambulate with supervision 50-100 feet Pt will climb 2-3 steps with railing with minimal contact assist of one Pt will perform there-ex with cues Pt will perform above with RPE less than 4/10, O2 sat greater than 90%, perform IS correctly with min cues PLAN: Treatment/Intervention: Physical therapy will be provided by physical therapist and/or physical therapist salon assistant when medically appropriate. Frequency: daily 3-5 times per week as determined by the patient's medical stability, tolerance to activity and progression of functional activities Intensity: 30 minutes per session Duration: During hospitalization Interventions may include:Therapeutic exercises, Therapeutic activities and Gait training Patient/family education: Discharge planning, Recommendations, Role of physical therapy/rehabilitation, Safety Further Data: Recommended Discharge Destination: Home with caregiver Recommended Discharge Services: To be determined Recommended Equipment Needs: Rolling walker Other recommendations: No other consults recommended at this time Pager: [phone] Harmony Ag, PT 11/03/2012 12:50 * Azar Callaway Chidi - 11/03/2012 1236 EDT Anesthesia Pain Service Subjective: This is a 52 y.o. year old female now POD # 2 Pt doing well this morning. Well controlled with pain. Objective: Vitals: Blood pressure 98/48, pulse 106, temperature 36.8 ??C (98.2 ??F), temperature source Tympanic, resp. rate 20, height 162.6 cm (64.02), weight 54 kg (119 lb 0.8 oz), SpO2 97.00%. Coagulation Status: ASA 81 QD, Lovenox 40 mg QD Scheduled Medications: Current Facility-Administered Medications Medication Route Frequency ??? sodium chloride 0.9 % flush 3 mL intravenous Q8H ??? aspirin suppository 300 mg rectal DAILY ??? benzocaine-menthol (CEPACOL) 15-3.6 mg lozenge 1 Lozenge buccal PRN ??? metoprolol (LOPRESSOR) 2.5 mg in sodium chloride (NS) 0.9 % 50 mL IVPB intravenous Q6H ??? dextrose 50 % solution 12.5 g intravenous PRN ??? glucagon (human recombinant) injection 1 mg intramuscular PRN ??? insulin aspart (NOVOLOG FLEXPEN) injection subcutaneous Q6H ??? naloxone (NARCAN) injection 0.1 mg intravenous PRN ??? bupivacaine-fentanyl in NS 0.0625 %-2 mcg/mL 250 mL epidural epidural CONTINUOUS ??? acetaminophen (TYLENOL) tablet 500-1,000 mg oral Q6H ??? docusate (COLACE) liquid 100 mg per ng tube BID ??? ondansetron (PF) (ZOFRAN) injection 2-4 mg intravenous Q6H PRN ??? famotidine (PEPCID) 20 mg/2 mL injection 20 mg intravenous Q12H Or ??? famotidine (PEPCID) tablet 20 mg per ng tube Q12H ??? enoxaparin (LOVENOX) injection 40 mg subcutaneous Q24H Allergies: Allergies Allergen Reactions ??? Ibuprofen Hives ??? Morphine Nausea And Vomiting ??? Percocet (Oxycodone-Acetaminophen) Nausea And Vomiting Labs: Lab Results Component Value Date WBC 13.76* 11/03/2012 HGB 9.0* 11/03/2012 HCT 26.6* 11/03/2012 MCV 86 11/03/2012 PLT 191 11/03/2012 No results found for this basename: INR, PROTIME Examination: General: Sleepy but easily arouseable A&O X3 Neuro: Motor Bilateral LE 5/5 Site: C/D/I, no pain/tenderness at site. Analysis and Plan: This is a 52 y.o. year old female now POD # 2 - will continue current regimen of epidural infusion at bupivacaine 0.0625%/fentanyl 2mcg/mL at 07/05/09 Deisi Galdamez MD 11/03/2012, 12:36 Attestation statement: I saw and examined the patient with the resident/fellow. I agree with the findings and plan of care documented in the resident's/fellow's note. * Domi Hogue ANP - 11/03/2012 1043 EDT Endocrine/Diabetes Follow Up/Progress Note Admit Date: 11/01/2012 Hospital day LOS: 2 days Date of Service: 11/03/2012 Reason for Following: Stress Hyperglycemia associated with vascular surgery., S/P Aorto-Bifemoral Bypass on 11/01 Diabetes HX: Duration: has never been diagnosed with Diabetes Control: A1C drawn on 11/02, after 11/01 surgery, blood loss and 1 unit PRBCs A1C = 5.8 Complications: PAD Home Regimen: None Self Care, SBGM: Smoker, 4-5 cigarettes a day. 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 Primary Care Provider: Larisa Moss Current Diet: NPO has NGT Social: Lives with , daughter and 2 grandchildren in [place], [place]. Maternal Grand mother had Type 2 Diabetes, also has family H/O CAD. Rare ETOH, Subjective: Patient sleeping, did not wake. Steroid/other medications that may affect Glucose: None Objective/Physical Exam: VS: BP: 98/48 mmHg Pulse: 106 Heart Rate: 105 BPM Resp: 20 Temp: 36.8 ??C (98.2 ??F) SpO2: 97 % O2 Flow Rate (L/min): 1 l/min O2 Device: Nasal cannula FIO2 %: 95 % Weight: Weight : 54 kg (119 lb 0.8 oz) Body mass index is 20.42 kg/(m^2). Food Intake: NPO Activity:bedrest Exam: Patient asleep Continues to be NPO with NGT draining bile. O2 on via STENCIL TYPIST. Bilateral feet warm. Data Review: Labs: Recent Labs Basename 11/03/12 0526 11/03/12 0004 11/02/12 1652 11/02/12 1030 11/01/12 1606 11/01/12 1217 11/01/12 0948 GLUCOSEFINGE 128* 129* 125* 125* 227* 154* 133* Lab Results Component Value Date HGBA1C 5.8 11/02/2012 Lab Results Component Value Date NA 137 11/03/2012 K 4.0 11/03/2012 CL 107 11/03/2012 CO2 28 11/03/2012 BUN 5* 11/03/2012 CREATININE 0.57 11/03/2012 Assessment/ 52 y.o. woman with family history but no personal H/O T2 DM. A1C was 5.8 after 1 unit PRBCs and is difficult to interpret. Initially had hyperglycemia S/P Aorta-Bifemoral bypass surgery, is due to stress related hyperglycemia. Placed her on a supplemental Aspart scale for serum Creatinine >3.5 (Although renal function normal, she is thin and most likely insulin sensitive). Blood sugars have had very mild elevation, not requiring any insulin while NPO. Will sign off consult. If blood sugars remain stable over next 24 hr may stop FS monitoring. Plan: 1. Continue FS monitoring for rest of day. 2. If stable, may stop FS monitoring and supplemental aspart 3. Will sign off consult today. Please feel free to call us should any problems arise. KASSANDRA Tobar 11/03/2012 10:44 * Kasi Buck MD - 11/03/2012 0704 EDT Vascular Surgery Daily Progress Note Patient: Ashley Kee Admit Date: 11/01/2012 Date of Service: 11/03/2012 POD: 2 (11/01/2012) Procedure: Aortobifemoral bypass 24 Hour Events: ?? AFSHAN ?? Autodiuresing Assessment: Active Hospital Problems Diagnoses ??? 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 female with history of bilateral leg claudication now POD# 2 s/p Aortobifemoral bypass. She has had an uncomplicated course and is recovering well. The graft is patent, confirmed by the presence of distal pulses bilaterally. Plan: ?? SLIV ?? NGT in place, NPO, continue to suction ?? ASA HI or PO ?? Hold lopressor secondary to low BP Subjective: Significant nausea overnight, multiple episodes of emesis with PO meds. No sleep last night. Objective: Exam: Gen: NAD, responding appropriately. NGT in place w/ gastric output Pulm: CTAB CV: RRR, no m/r/g, clear S1 + S2 Abd: Soft, non-tender, non distended, absent bowel sounds Ext: Lower extremities normothermic bilaterally. Incision/Dressing: Abdominal incision clean, dry, and intact. Groin Incisions: C/D/I Pulses DP PT Popliteal Right 2+,DS 1+,DS Palp Left 2+, DS DS Palp Kasi Buck MD 11/03/2012 7:04 Pager #[phone] * Catherine Rausch RN - 11/02/2012 4888 EDT Admission Note D - This is a(n) 52 y.o. female who is being transfered from SICU This is post-op day 1 for the patient. Patient is status-post Aorto bifem by pass A - Vital signs taken. Patient oriented to unit and room. Call light and bed use reviewed. Call light within reach, bed placed in low position and table at bedside. Room is free of clutter. R - Continue to assess and monitor patient. 11/02/2012 17:53 Catherine Rausch RN * Catherine Rausch RN - 11/02/2012 1750 EDT Data: Orders written to d/c cordis Action: Patient currently lying flat d/t cordis being d/c'd. No difficulties noted when cordis removed and tip attached. Patient instructed to lie flat for 1/2 hour. Response: Continue to monitor pt throughout the shift. Catherine Rausch RN 11/02/2012 17:51 * CesiaAzar Chidi - 11/02/2012 1231 EDT Anesthesia Pain Service Subjective: This is a 52 y.o. year old female now POD # 1 Pain Level 0-1/10 Objective: Resting comfortable, moving , deep breathing and coughing without difficulty. Vitals: Blood pressure 91/42, pulse 80, temperature 37 ??C (98.6 ??F), temperature source Oral, resp. rate 21, height 162.6 cm (64.02), weight 54 kg (119 lb 0.8 oz), SpO2 98.00%. Coagulation Status: ASA 81 QD, Lovenox 40 mg QD Scheduled Medications: Current Facility-Administered Medications Medication Route Frequency ??? dextrose 50 % solution 12.5 g intravenous PRN ??? glucagon (human recombinant) injection 1 mg intramuscular PRN ??? insulin aspart (NOVOLOG FLEXPEN) injection subcutaneous Q6H ??? naloxone (NARCAN) injection 0.1 mg intravenous PRN ??? bupivacaine-fentanyl in NS 0.0625 %-2 mcg/mL 250 mL epidural epidural CONTINUOUS ??? aspirin EC tablet 81 mg oral DAILY ??? metoprolol (LOPRESSOR) tablet 12.5 mg oral BID ??? simvastatin (ZOCOR) tablet 40 mg oral DAILY ??? dextrose 5 % and 0.45 % NaCl with KCl 20 mEq/L infusion intravenous CONTINUOUS ??? acetaminophen (TYLENOL) tablet 500-1,000 mg oral Q6H ??? docusate sodium (COLACE) capsule 100 mg oral BID Or ??? docusate (COLACE) liquid 100 mg per ng tube BID ??? ondansetron (PF) (ZOFRAN) injection 2-4 mg intravenous Q6H PRN ??? famotidine (PEPCID) 20 mg/2 mL injection 20 mg intravenous Q12H Or ??? famotidine (PEPCID) tablet 20 mg oral Q12H Or ??? famotidine (PEPCID) tablet 20 mg per ng tube Q12H ??? enoxaparin (LOVENOX) injection 40 mg subcutaneous Q24H Allergies: Allergies Allergen Reactions ??? Ibuprofen Hives ??? Morphine Nausea And Vomiting ??? Percocet (Oxycodone-Acetaminophen) Nausea And Vomiting Labs: Lab Results Component Value Date WBC 17.81* 11/02/2012 HGB 10.2* 11/02/2012 HCT 29.5* 11/02/2012 MCV 86 11/02/2012 PLT 198 11/02/2012 No results found for this basename: INR, PROTIME Examination: General: Sleepy but easily arouseable A&O X3 Neuro: Motor Bilateral LE 5/5 Site: C/D/I, no pain/tenderness at site. Analysis and Plan: This is a 52 y.o. year old female now POD # 1 She is doing very well. Minimal pain. Epidural functioning well. Epidural infusion decreased overnight. Mental status appropriate this AM. Continue present pain regimen. We will follow with you. Azar Callaway MD 11/02/2012, 12:31 * Jaime Espinoza MD - 11/02/2012 0548 EDT Vascular Surgery Daily Progress Note Patient: Ashley Kee Admit Date: 11/01/2012 Date of Service: 11/02/2012 POD: 1 (11/01/2012) Procedure: Aortobifemoral bypass 24 Hour Events: ?? To OR yesterday for Aortobifemoral bypass with 14x7 bifurcated Dacron graft ?? Admitted to SICU postoperatively ?? Transfused 1 U PRBC's postop for low HCT ?? Hypotensive off pressors postop Assessment: There are no hospital problems to display for this patient. Ashley Kee is a 52 y.o. female with history of bilateral leg claudication now POD# 1 s/p Aortobifemoral bypass. She has had an uncomplicated course, received fluid boluses overnight for low urine output. Has been somewhat sedate with each patient visit, with no complaints of pain, and reported previous historyof opiate sensitivity, may benefit from reduction in epidural dosage. The graft is patent, confirmed by the presence of distal pulses bilaterally. Plan: ?? Transfer to floor today ?? Reduced maintenance fluid to 50 ml/ h ?? Continue to monitor BP, UOP ?? NGT in place, NPO ?? Will f/u Hemoglobin A1c- no history of DM, some elevated Blood Glucose values postoperatively. Subjective: Patient somewhat sedated this morning, no pain complaints. Is comfortable in bed, no NV. Objective: Exam: Gen: NAD, responding appropriately. NGT in place w/ gastric output Pulm: CTAB CV: RRR, no m/r/g, clear S1 + S2 Abd: Soft, non-tender, non distended, active bowel sounds Ext: Lower extremities normothermic bilaterally. Palpable popliteal pulses BL. 1+ DP/PT BL confirmed with doppler. Incision/Dressing: Abdominal incision clean, dry, and intact. Groin Incisions: Tegaderm dressing with minimal serosanguinous discharge bilaterally. Pulses DP PT Popliteal Right 1+,DS 1+,DS Palp Left 1+, DS 1+,DS Palp Jaime Espinoza MD 11/02/2012 5:48 Pager #[phone] * Olena Sanchez RN - 11/01/2012 1825 EDT 1530: care of pt. Assumed, pt. Wakes up to the voice, follows commands, denies pain 1700: team at bedside, aware oh hypotension and low UO * Jaime Espinoza MD - 11/01/2012 1622 EDT SURGERY POST-OP CHECK SUBJECTIVE: Pain controlled. No other complaints, Denies: Chest Pain, Shortness of breath, Nausea, Vomiting. OBJECTIVE: VS: Blood pressure 68/36, pulse 80, temperature 35.1 ??C (95.2 ??F), temperature source Tympanic, resp. rate 18, height 162.6 cm (64), weight 53.978 kg (119 lb), SpO2 96.00%. I/O: Current Shift 11/01 1499 - 11/01 2258 In: 313 [P.O.:55; I.V.:250] Out: 50 [Urine:50] Gen: NAD, responding appropriately. NGT in place. Pulm: CTAB CV: RRR, no m/r/g, clear S1 + S2 Abd: Soft, non-tender, non distended, active bowel sounds Ext: Lower extremities normothermic bilaterally. Palpable popliteal pulses BL. 1+ DP/PT BL confirmed with doppler. Incision/Dressing: Abdominal incision clean, dry, and intact. Groin Incisions: Tegaderm dressing with minimal serosanguinous discharge bilaterally. ASSESSMENT/PLAN: 52 y.o. female POD#0 s/p aorto-bifemoral bypass. Patient admitted to SICU, hypotensive postoperatively, off pressors now. UOP @20-25/ hour, will continue to monitor. HCT 32.2 after 1U PRBC's. Palpable distal pulses, good motor/sensation. Pain well controlled. Doing well. Elevated blood sugars, check HbA1C Pain Control: Well controlled, APS following, epidural in place Antibiotics: 24 hours perioperative cefazolin IV Breathing comfortably, NC 1L/minute. Wean O2, maintain sat >90. IS. DVT Prophylaxis: Lovenox 40 mg daily Transfused 1 unit of RBCs, hemoglobin responded appropriately Activity: Bed rest Cuellar in place. Monitor urine output Diet: NPO, NGT in place Ana Siddiqi 11/01/2012 16:22 Jaime Espinoza MD 11/01/201217:12 Pager #[phone] * Sasha Palma RN - 11/01/2012 8972 EDT 12:00Bedside report received from Anesthesia. Systems reviewed and events from last 24 hours discussed. Assumed care of patient at this time. Per anesthesia, Epidural bolus of Bupivicaine and fentanyl given and drip started at basal of 6ml per hour in OR. Patient slightly hypotensive upon arrival to SICU, and a continuous infusion of Phenylephrine in place. 12:10 Assessment done. Plan:Continue to monitor hemodynamics closely, wean phenylephrine drip to off, close watch of bilateral distal pulses. Maintain a level of comfort, instructing patient on use of EPCA when more awake. Data: Patient admitted from OR, S/P Bilateral Fem/Pop bypass. Caty arrived extubated, receiving 3 L 02 via Nasal Cannula. Left radial a-line, right IJ cordis with slic, cuellar catheter and right PeriphIV in place. 12:40 Family in at bedside to see patient. Contact information obtained and placed in clinical record. Karthik took Caty's cell phone and wedding ring, her reading glasses and clothes remain at bedside. Action: 13:00 patient instructed on use of EPCA, Phenylephrine drip off. Transfused 1 U PRBC's for HCT of 23. Response: Patient maintaining systolic pressures in low 90's with Phenylephrine drip off. Bilaterallower extremity pulses palpable, feet remain warm with good capillary refill and sensation. Will recheck HCT at 16:00 and continue to assess pain level using numeric pain score every 1-2 hours. Sasha Palma RN 11/01/2012 13:13 * Nancy Alaniz, NEYDA - 10/19/2012 1059 EDT Ashley Kee has been instructed as follows regarding medication administration for the day of thescheduled procedure. Date of Surgery: 11/01/12 Instructions for Taking Medications Day of Surgery Medication Last Dose Hold DOS Take DOS metoprolol (LOPRESSOR) 25 mg tablet Yes simvastatin (ZOCOR) 20 mg tablet Yes aspirin 81 mg EC tablet Yes Per patient, she was instructed to start above medications 1 week prior to surgery per Monica Rashid documented in this encounter H&P Notes * Tony Garza MD - 11/01/2012 0659 EDT The preoperative history and physical which was performed within 30 days of this procedure has been reviewed and the clinically appropriate elements of the physical examination have been repeated. There are no changes to the documented history and physical or if so such changes are documented below TONY GARZA MD 11/01/2012 6:59 Source Note - Monica Rashid NP - 10/18/2012 16:57 EDT [facility] Vascular Surgery H & P Visit Note Date: 10/18/2012 Patient: Ashley Kee Subjective: Ashley Kee is a 52 y.o. female who presents today for pre op evaluation for aortobifemoral bypass for severe claudication. Referred by: LARISA MOSS MD History of Present Illness: Pt is a 52 y/o woman with pain with walking right side worse than left.There is no tissue loss. On initial exam, femoral pulses were not palpable. MARGIE right side 0.5, left side 0.45. Limited ultrasound showed distal aortic occlusion. CTA shows occlusion of the distal aorta extending through the common iliac arteries. Normal 3-vessel runoff to the ankle both legs. Before vascular consultation pt was treated with right hip injection with a working diagnosis of bursitis and she also had back injections to treat the pain in her legs. Incidental notes: There are 2 right renal arteries without stenosis. NOTE: Pt will need Smoking Cessation Consult while in-house. Cardiac testing: NM Stress test 10/11/12 was negative for ischemia, normal LVF, EF 67%. Pt started onASA, low dose beta daniel and statin one week prior to surgery. EKG 10/18/12: Sinus rhythm, indeterminate axis, pattern c/w pulmonary disease, incomplete R BBB, possible right ventricular hypertrophy. The patient's problem list, allergies, immunizations, and medications were documented, reviewed, and updated as follows: Patient Active Problem List Diagnoses ??? Chronic right shoulder pain ??? Atherosclerosis of [place] arteries of the extremities with intermittent claudication ??? Fear of needles Allergies: Ibuprofen; Morphine; and Percocet Immunizations: There is no immunization history on file for this patient. Medications: Current Outpatient Prescriptions Medication Sig Dispense Refill ??? metoprolol (LOPRESSOR) 25 mg tablet Take 0.5 Tabs by mouth 2 times daily. 30 Tab 0 ??? simvastatin (ZOCOR) 20 mg tablet Take 2 Tabs by mouth daily. 30 Tab 0 ??? aspirin 81 mg EC tablet Take 1 Tab by mouth daily. 30 Tab 0 History was documented as follows: PMH PSH Past Medical History Diagnosis Date ??? Wears glasses ??? Back pain ??? Joint pain ??? Numbness ??? Peripheral artery disease ??? Thoracic outlet syndrome Right side. Medical management as of 10/18/12 Past Surgical History Procedure Date ??? Hysterectomy ??? Cholecystectomy ??? Appendectomy ??? Shoulder surgery 11/14 AND 05/18 RIGHT SHOULDER Social History Family History Living situation: lives with , daughter and two teenage grandchildren who are supportive. CAD yes AAA no History Substance Use Topics ??? Smoking status: Current Everyday Smoker -- 0.2 packs/day for 20 years Types: Cigarettes ??? Smokeless tobacco: Not on file Comment: Smoking 4-5 cigarettes daily ??? Alcohol Use: Yes Once or twice a year STROKE no Medications (Not in a hospital admission) Allergies Allergies Allergen Reactions ??? Ibuprofen Hives ??? Morphine Nausea Only ??? Percocet (Oxycodone-Acetaminophen) Nausea Only Vascular Review of Systems Constitutional: no acute health changes and Feels well today HEENT: has dentures upper and lower, no sore areas Cardiac: denies SOB or angina Respiratory: No active issues; no concerns Gastrointestinal: has chronic constipation/diarrhea which alternates. Genitourinary/Renal: No urinary tract infections, No abnormal urine color and No Abnormal urine odor Musculoskeletal: is s/p right shoulder surgery but still has pain in both shoulders Neurologic: no unilateral vision changes or focal symptoms., No headaches and No weakness Integumentary: No active issues; no concerns Allergy/Immunology: No active issues; no concerns ROS (other): Fear of needles, pt anxious Objective: Physical Examination: Vitals: BP 114/74 Pulse 82 Ht 162.6 cm (64) Wt 53.978 kg (119 lb) BMI 20.43 kg/m2. General: NAD, looks older than stated age. Neck: No bruits Heart: RRR no murmur Lungs: clear - bilaterally Abdomen: soft, nondistended Musculoskeletal: No mobility limitations and normal muscle tone and bulk Skin: clean, dry, intact over surgical area Neurologic: grossly intact Vascular Exam: NOTE: Distal Doppler signals faint and monophasic Arterial Exam Femoral Popliteal Dorsalis Pedis Posterior Tib Right non-palp non-palp +DS +DS Left non-palp non-palp +DS +DS DS = Doppler Signal 2+ = Expected palpable pulse 1+ = Diminished palpable pulse +DS = Doppler Signal present -DS = No Doppler Signal Venous Exam: n/a Labs drawn on: 10/18/12: BUN 4, Creatinine 0.7, GFR greater than 60, ALT and AST normal, WBC 8.3, hgb 14.1, hct 42.1, platelets 271 CXR from: 10/18/12 Unremarkable Blood Bank if applicable: T and C 2 units PRBC's B neg with negative antibody screen Stress test if applicable: Negative for ischemia Patient medication instructions if applicable: Start ASA 81 mg daily, Metoprolol 12.5 mg twice daily, and Simvastatin 40 mg daily. Assessment and Plan: Ashley Kee is a good candidate for Aorto-bifemoral bypass surgery. Advantages and disadvantages of surgery were reviewed. The operative procedure was discussed including the risks of general anesthetic and medications and the potential risk of complications. There could also be the need for re-operation. Post-operative recovery was discussed, as well as the need for post surgery follow-up. The patient understands the risks; any and all questions were answered to the patient's satisfaction. Pre-Op Assessment: No contraindications to planned surgery. Discharge plan: Likely to home, do not anticipate need for Rehab. Pt has good family support. Ashley was seen today for pre-op exam. Diagnoses and associated orders for this visit: Atherosclerosis of gambell arteries of the extremities with intermittent claudication - EKG 12 lead - ALT - AST - BUN - Creatinine - Hemagram - CHEST PA AND LATERAL - Pre-Op Blood Bank Draw Other Orders - metoprolol (LOPRESSOR) 25 mg tablet; Take 0.5 Tabs by mouth 2 times daily. - simvastatin (ZOCOR) 20 mg tablet; Take 2 Tabs by mouth daily. - aspirin 81 mg EC tablet; Take 1 Tab by mouth daily. Submitted by: MONICA RASHID NP documented in this encounter Procedure Notes * WEB ANALYTICS SPECIALIST, SCAN 2 - 11/11/2012 0708 EDTAssociated Order(s): IMPLANT RECORD - SCANNED * WEB ANALYTICS SPECIALIST, SCAN 2 - 11/11/2012 0708 EDTAssociated Order(s): ECG REPORT - SCANNED * WEB ANALYTICS SPECIALIST, SCAN 2 - 11/11/2012 0708 EDTAssociated Order(s): TRANSFUSION RECORD - SCANNED * WEB ANALYTICS SPECIALIST, SCAN 2 - 10/27/2012 1255 EDTAssociated Order(s): ORDERS - SCANNED documented in this encounter Consult Notes * Domi Hogue, ANP - 11/02/2012 1042 EDT Endocrine Inpatient Consult Note Admit Date: 11/01/2012 Date of Service: 11/02/2012 Requesting Physician: ABRIL Pastor Specialty Completing Consult: Endocrinology Reason for Consult: Stress Hyperglycemia associated with vascular surgery., S/P Aorto-Bifemoral Bypass on 11/01 HPI: Patient has experienced bilateral leg claudication, worsening over past several months. Diabetes HX: Duration: has never been diagnosed with Diabetes Control: A1C drawn on 11/02 after 11/01 surgery, blood loss and 1 unit PRBCs A1C = 5.8 Complications: PAD Home Regimen: None Self Care, SBGM: Smoker, 4-5 cigarettes a day. 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 Primary Care Provider: Larisa Moss Current Diet: NPO has NGT Social: Lives with , daughter and 2 grandchildren in [place], [place]. Maternal Grand mother had Type 2 Diabetes, also has family H/O CAD. Rare ETOH, PMH PSH Past Medical History Diagnosis Date ??? Wears glasses ??? Back pain ??? Joint pain ??? Numbness ??? Peripheral artery disease ??? Thoracic outlet syndrome Right side. Medical management as of 10/18/12 Past Surgical History Procedure Date ??? Hysterectomy ??? Cholecystectomy ??? Appendectomy ??? Shoulder surgery 11/14 AND 05/18 RIGHT SHOULDER Social History Family History History Substance Use Topics ??? Smoking status: Current Everyday Smoker -- 0.2 packs/day for 20 years Types: Cigarettes ??? Smokeless tobacco: Not on file Comment: Smoking 4-5 cigarettes daily ??? Alcohol Use: Yes Once or twice a year Family History Problem Relation Age of Onset ??? Heart Disease Father ??? Heart Disease Paternal Grandfather ??? AAA Neg Hx ??? Stroke Neg Hx Medications Current Facility-Administered Medications Medication Route Frequency ??? dextrose 50 % solution 12.5 g intravenous PRN ??? glucagon (human recombinant) injection 1 mg intramuscular PRN ??? insulin aspart (NOVOLOG FLEXPEN) injection subcutaneous Q6H ??? naloxone (NARCAN) injection 0.1 mg intravenous PRN ??? bupivacaine-fentanyl in NS 0.0625 %-2 mcg/mL 250 mL epidural epidural CONTINUOUS ??? aspirin EC tablet 81 mg oral DAILY ??? metoprolol (LOPRESSOR) tablet 12.5 mg oral BID ??? simvastatin (ZOCOR) tablet 40 mg oral DAILY ??? dextrose 5 % and 0.45 % NaCl with KCl 20 mEq/L infusion intravenous CONTINUOUS ??? acetaminophen (TYLENOL) tablet 500-1,000 mg oral Q6H ??? docusate sodium (COLACE) capsule 100 mg oral BID Or ??? docusate (COLACE) liquid 100 mg per ng tube BID ??? ondansetron (PF) (ZOFRAN) injection 2-4 mg intravenous Q6H PRN ??? famotidine (PEPCID) 20 mg/2 mL injection 20 mg intravenous Q12H Or ??? famotidine (PEPCID) tablet 20 mg oral Q12H Or ??? famotidine (PEPCID) tablet 20 mg per ng tube Q12H ??? enoxaparin (LOVENOX) injection 40 mg subcutaneous Q24H Allergies Allergies Allergen Reactions ??? Ibuprofen Hives ??? Morphine Nausea And Vomiting ??? Percocet (Oxycodone-Acetaminophen) Nausea And Vomiting Review of Systems: A ten point review of systems was performed. Pertinent positives are listed below, all others are negative: Post operative pain Objective/Physical Exam: VS: BP: 91/42 mmHg Pulse: 80 Heart Rate: 82 BPM Resp: 22 Temp: 37 ??C (98.6 ??F) SpO2: 96 % O2 Flow Rate (L/min): 1 l/min O2 Device: Nasal cannula FIO2 %: 95 % Exam: Eyes: Pupil/Iris: Equal/reactive to light Respiratory: On O2 via STENCIL TYPIST, Lungs CTA anteriorly Cardiovascular: COR: S1S2 RRR w/o murmur Extremities: Pedal Pulses: Symmetric distal pulses feet warm w/o edema Gastrointestinal:: NG Tube draining bile, Skin: Warm, dry Neurologic: sensation intact on feet to light touch Psychiatric: Mental Status (Orientation): oriented X 4 Has postoperative pain Cuellar catheter in. Data Review: I have independently visualized the Labs Labs: Recent Labs Basename 11/02/12 1030 11/01/12 1606 11/01/12 1217 11/01/12 0948 GLUCOSEFINGE 125* 227* 154* 133* Lab Results Component Value Date HGBA1C 5.8 11/02/2012 Lab Results Component Value Date WBC 17.81* 11/02/2012 RBC 3.44* 11/02/2012 HGB 10.2* 11/02/2012 HCT 29.5* 11/02/2012 MCV 86 11/02/2012 MCH 29.6 11/02/2012 MCHC 34.5 11/02/2012 PLT 198 11/02/2012 NEUTROABS 16.03* 11/02/2012 Lab Results Component Value Date NA 133* 11/02/2012 K 4.4 11/02/2012 CL 108 11/02/2012 CO2 22* 11/02/2012 BUN 5* 11/02/2012 CREATININE 0.54 11/02/2012 CALCGFR >60 11/02/2012 AST 16 10/18/2012 ALT 20 10/18/2012 Assessment: 52 y.o. woman with family history but no personal H/O T2 DM. A1C was 5.8 after 1 unit PRBCs and is difficult to interpret. She is having sporadic hyperglycemia S/P Aorta-Bifemoral bypass surgery, is most likely related to stress hyperglycemia. Plan to place her on a supplemental Aspart scale. She is thin, is currently NPO and just meets criteria for dosage of weight 50-75 Kg. She willmost likely be insulin sensitive if requires insulin therefore will be conservative and use supplemental scale for elderly and serum Creatinine >3.5. Recommendations: 1. FS, every 6 hr. 2. Supplemental Aspart for serum creatinine of greater than 3.5 3. Will follow and assess need for change in regimen. Thank you for the allowing me to consult on this interesting patient. KASSANDRA Tobar 11/02/2012 10:42 documented in this encounter Nursing Notes * WEB ANALYTICS SPECIALIST, SCAN 2 - 11/11/2012 0708 EDT documented in this encounter OR Notes * OR PreOp - WEB ANALYTICS SPECIALIST, SCAN 2 - 11/11/2012 1330 EDT * OR PreOp - WEB ANALYTICS SPECIALIST, SCAN 2 - 11/11/2012 0708 EDT * OR Surgeon - Tony Garza MD - 11/02/2012 0132 EDT OPERATIVE REPORT SERVICE DATE: 11/01/2012 PREOPERATIVE DIAGNOSIS: Aortoiliac occlusive disease with severe claudication. POSTOPERATIVE DIAGNOSIS: Aortoiliac occlusive disease with severe claudication. PROCEDURE: Aortobifemoral bypass using a 14 x 7 mm [place] graft. SURGEON: Tony Garza MD CHIEF ENGINEER WATERWORKS: Annika Workman MD INDICATIONS: Ms Kee presented with very short distant claudication. Noninvasive vascular studies indicated inflow disease. This was followed by a CT angiogram showing an aortoiliac occlusion on both sides. After a thorough workup, which included Cardiolite and a long discussion about pros and cons of surgery, the decision was made to bypass surgery with aortobifemoral bypass. NARRATIVE: In the operating room under general anesthesia with epidural NG tube, central line, arterial line and a Cuellar catheter, her abdomen and both groins are prepped and draped in sterile manner. We started making bilateral vertical groin incisions sharply through skin and then with cautery through the subcutaneous layer and femoral fascia down onto the femoral vessels. We can see that thereis some diffuse disease in the common femoral artery, but otherwise the vessels are fairly soft. They are dissected out and isolated the vessel loops on both sides. We start a tunnel into the inguinal ligament on both sides. Then we do a midline abdominal incision from the xiphoid down to below the umbilicus sharply through the skin and then with cautery through the subQ and through the midline until we get into the peritoneal cavity. The peritoneal cavity is explored, we can see the NG tube isin good position and no other abnormality found. An Omni retractor is then placed to help with exposure. We reflect the transverse colon superiorly and the mesenteric small bowel to the right side toexpose the retroperitoneum. We then take down the ligament of Treitz and open up the retroperitoneum over the infrarenal aorta. We identify the left renal vein and we can see that just below the veinthe aorta has a reasonably good pulse in it. She does though have a significant amount of patchy calcification throughout the aorta. A tunnel was then made between the groin incision and the abdomen on both sides, staying just top of the iliac vessels. The tunnels are secured using an umbilical tape. She is then heparinized with 5000 units of intravenous heparin. After appropriate period of time,an aortic cross clamp is placed and then an infrarenal clamp on the aorta. Decision is made becauseof patent I made to place an end-to-side graft. A 14 x 7 mm graft is chosen because of the size of the aorta and femoral vessels. An arteriotomy is done in the aorta just below the renal arteries. Weuse an 11 blade and then Hamilton scissors. Because of patchy calcification, the aorta was partly endar terectomized. We then T the graft appropriately and spatulate, and then do the proximal [id number] using a running 3-0 Prolene suture. We carefully flush and irrigate and then complete the anastomosis and open up again. We can see there is some suture hole bleeding. That is controlled with using thrombin Gelfoam. East limb of the graft is then tunneled down into appropriate groin. We then start on the right side. The femoral vessels are controlled with arterial clamps. Arteriotomy done with 11 blade and Hamilton scissors, crossing over the takeoff of the profunda. The graft was T'd to appropriate length and spatulated, and the anastomosis done end-to-side using a running 6-0 Prolene. We carefully flush and irrigate the graft as well as backbleed the vessels, complete the anastomosis and open up again. We get an excellent palpable pulse at the graft in the receiving vessels. Wethen go on to the left side. Again the femoral vessels are controlled with clamps, arteriotomy donewith 11 blade and Hamilton scissor at the bifurcation. The graft T'd to appropriate length and the distal anastomosis done end-to-side using a running 6-0 Prolene. Again, we thoroughly backbleed and flush until clean and then complete the anastomosis and open up again. Here as well we have good palpable pulse in the graft in the receiving vessels. We then go back in the abdomen and we can see that there is still some needle hole bleeding but no other problems at the anastomosis, and after confirming good palpable pedal pulses, we give her 20 mg of protamine to turn around her heparinization. Good hemostasis was then obtained. The retroperitoneum was then closed with running 2-0 Vicryl. The Omni retractor was then removed and the abdomen irrigated with warm saline. After appropriate count, weclosed the abdomen using a running #1 looped PDS from each corner. The groins were then closed withmultiple layers of 2-0 and 3-0 Vicryl and the skin at all 3 incisions were closed with kim. Shewas hemodynamically stable during the procedure. Instrument and sponge count was correct. She did receive 1 g of cefazolin perioperatively. She was transferred to the surgical intensive care unit in stable condition. I was present throughout the full length of the surgery. Unless otherwise noted, there were no complications, no blood loss, no cultures obtained, no specimens removed, and no drains retained. Tony Martinez: 11/01/2012 11 52 AM / Tony Garza MD kn Confirmation: [id number] Dictation ID: [id number] * Anesthesia Procedure Notes - WEB ANALYTICS SPECIALIST, SCAN 2 - 11/01/2012 1638 EDT * Anesthesia Preprocedure Evaluation - WEB ANALYTICS SPECIALIST, SCAN 2 - 11/01/2012 1025 EDT documented in this encounter Miscellaneous Notes * Scanned Note-Null - WEB ANALYTICS SPECIALIST, SCAN 2 - 11/11/2012 0708 EDT * Scanned Note-Null - WEB ANALYTICS SPECIALIST, SCAN 2 - 11/11/2012 0708 EDT * Plan of Care - Tiff Bonilla RN - 11/06/2012 0624 EDT Problem: NAUSEA AND VOMITING Goal: Patient Will Experience Relief from Nausea and Vomiting Outcome: Ongoing Data: Pt POD #5 bifemoral bypass, without BM. Pt experienced severe nausea during prior shift aftermoving from full liquids to regular diet . Action: Encouraged small frequent PO intake for pt. Contacted MD Lyn received medication orders for bowel regimen. Response: Pt had medium formed BM, reports feeling of 'relief' and has tolerated small amount of POintake without any nausea over shift. Pt currently in bed sleeping comfortably, free of pain. Will continue to monitor and intervene as needed. Tiff Bonilla RN 11/06/2012 6:20 * Plan of Care - Tarah De Souza RN - 11/05/2012 1655 EDT Problem: NAUSEA AND VOMITING Goal: Patient Will Experience Relief from Nausea and Vomiting Data: Pt is POD #4 from aortobifemoral bypass surgery; diet advanced to regular today, pt ate 25% of breakfast and tolerated well, no n/v; active bowel sounds; pt worked with PT on stairs; lots of friends/family visiting today Action: Closely monitor pt for n/v, intake, bowel sounds Response: Pt having nausea after working with PT, denies pain, refuses meal at this time Tarah De Souza RN 11/05/2012 16:48 * Plan of Care - Maura Xiong RN - 11/05/2012 0032 EDT Problem: RESPIRATORY FUNCTION/OXYGENATION Goal: Patient Will Maintain Patent Airway Data: Patient asked if O2 NC was still in room b/c patient was feeling as though she can't catch my breath. Patient with no c/o chest pain, nausea or dizziness. Patient does not know if it is anxiety. Action: Auscultated lung sounds. LLL crackles, CHAN clear. R lobes clear. O2 sat 96% on RA. Informedresident Clark Lyn while on floor. Ordered to monitor on continuous pulse ox for now and if patient still feels uncomfortable may wear O2 NC for comfort. Went ahead and place NC at 2L. Response: Patient feels slightly better sitting up more and with O2 NC. Patient is sleeping at thistime. O2 100% with NC. Call light within reach. Maura Daniel RN 11/05/2012 0:24 * Plan of Care - Tarah De Souza RN - 11/04/2012 1813 EDT Problem: MOBILITY Goal: Mobility/Activity Is Maintained At Optimum Level For Patient Data: Pt is POD #3 s/p aorto bi-femoral bypass; pt OOB x3 today, ambulated in wylie with PT; PCEA discontinued per anesthesia, cuellar catheter removed per order Action: Assist pt to chair as requested; removed cuellar, monitor closely for pain Response: Pt had increased pain after ambulation with PT, requesting pain medication aside from Tylenol; after resting in bed post-ambulation pain decreased significantly; cuellar removed without complication, pt voided 200cc within 6 hours Tarah De Souza RN 11/04/2012 18:09 * Miscellaneous - WEB ANALYTICS SPECIALIST, SCAN 2 - 11/04/2012 0752 EDT * Plan of Care - Maura Xiong RN - 11/04/2012 0112 EDT Problem: NAUSEA AND VOMITING Goal: Patient Will Experience Relief from Nausea and Vomiting Data: Patient reports getting nauseated with any medication given. Action: Before giving evening medications, given 2mg zofran. Response: Patient w/o N/V after medications given. Call light within reach. Maura Daniel RN 11/04/2012 1:11 * Plan of Care - Mary Tavares RN - 11/03/2012 1625 EDT Problem: MOBILITY Goal: Mobility/Activity Is Maintained At Optimum Level For Patient Intervention: Assess for barriers to mobility/activity Data: Pt is POD #2 s/p aortobifemoral bypass. Action: Pt transferred to and from bed to chair by physical therapist with two assists. She required multiple attempts to standup and sit down on the chair. Rested on the chair for an hour. Pt also c/o nausea during transfer and nausea medication was given. Pt has NG tube to low continuous suction as ordered. Response: Pt tolerated the activity well. Verbalized feeling better after receiving nausea medication and also after sitting up for a while. Presently resting in bed. Continue to closely monitor and assess the patient through out the shift. Mary Tavares RN 11/03/2012 16:15 * Plan of Care - Nelda Barry RN - 11/03/2012 0100 EDT Problem: PAIN Goal: Patient???s Pain And Discomfort Are Adequately Managed Intervention: Assess pain level Pain is to be assessed: admission, every shift, prior to medication administration, within two hours after pain medication administration, before transfer or discharge and every two hours while on FOREST ECOLOG[employer] PROFESSOR or epidural. Data: Patient is POD # 2 s/p aortobifemoral bypass. Upon assessment patients 02 saturation noted maria m 85%. Patient appeared to be taking shallow breaths. Patient rated her pain a 3 out of 10 at thistime. Action: Placed patient on 1L O2 via nasal cannula. O2 saturation 94% on 1L O2. Lung sounds diminished with fine crackles in the bases. Patient reported that her pain is adequately controlled via PCEA. Response: Patient continues to have adequate O2 saturation on 1L O2. Patient sleeping on last hourly assessment. Will continue to assess & monitor & intervene as needed. NELDA BARRY RN 11/03/2012 0:49 * Plan of Care - Deb Jo RN - 11/02/2012 1316 EDT Problem: MOBILITY Goal: Mobility/Activity Is Maintained At Optimum Level For Patient Data: post op day 1. Has been on bedrest since surgery. Action: pt up to chair this Am with 2 person assist. Response: up X 1//2 hrs. Shimon well. Strong on legs Deb Jo RN 11/02/2012 13:13 * Anesthesia Post-Vini - Tatum Mariano CRNA - 11/02/2012 0900 EDT Post Anesthesia Evaluation Note Date of Service: 11/02/2012 Ashley Kee, a 52 y.o. year old female has received General Anesthesia She has been evaluated, assessed and discharged from anesthesia care with stable cardiorespiratory function and sedated mentalstatus. The last set of recorded vital signs and pain rating were reviewed: Temp: 37 ??C (98.6 ??F) (11/02/12751), BP: 98/48 mmHg (11/02/12751), Resp: 19 (11/02/12751), SpO2: 97 % (11/02/12751), Art Line Primary (ABP): 105/49 mmHg (11/02/12751),Numeric Pain Level (Scale 1-10): 0 Adult Nonverbal Pain ScaleTotal: 0 Ashley Kee participated in this evaluation unless otherwise noted. Her pain, nausea and vomitinghave been managed and her body temperature and fluid balance have been restored. Additional monitoring and assessment needs have been addressed. If present, any postoperative events are documented below. If the regional block for postoperative analgesia was intended to last greater than 48 hours, Aditi Kee will be followed by the Acute Pain Service. 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 See attending dictation for complete operative findings. EBL: 500 ml IVF: 4400 ml LR UOP: 75 ml Specimen: none Cultures: none Foreign Bodies: 14x7 bifurcated dacron graft Complications: none Disposition: ICU - extubated and stable. Annika Workman MD 11/01/2012 11:42 * Scanned Note-Null - WEB ANALYTICS SPECIALIST, SCAN 2 - 11/01/2012 0542 EDT * Scanned Note-Null - WEB ANALYTICS SPECIALIST, SCAN 2 - 11/01/2012 0542 EDT documented in this encounter Plan of Treatment Pending Results Name Type Priority Associated Diagnoses Date /Time TRANSFUSE RED BLOOD CELLS Transfuse Routine 11/01/2012 13:27 EDT TRANSFUSE RED BLOOD CELLS Transfuse Routine 11/01/2012 13:26 EDT HEMAGRAM AND DIFFERENTIAL Lab Routine 11/02/2012 4:48 EDT Scheduled Orders Name Type Priority Associated Diagnoses Orde r Schedule HEMAGRAM AND DIFFERENTIAL Lab Routine For medications that can be administered at any time during the hospitalization for visit such as immunizations. for 1 Occurrences starting 11/02/2012 Scheduled Referrals Name Type Priority Associated Diagnoses Orde r Schedule FROM IP - CONSULT HOME HEALTH SERVICES Outpatient Referral Routine Atherosclerosis of gambell arteries of the extremities with intermittent claudication Ordered: 11/06/2012 documented as of this encounter Procedures Procedure Name Priority Date/Time Associated Diagnosis Comments IMPLANT RECORD - SCANNED 11/11/2012 7:08 EDT ECG REPORT - SCANNED 11/11/2012 7:08 EDT TRANSFUSION RECORD - SCANNED 11/11/2012 7:08 EDT DIFFERENTIAL Routine 11/06/2012 7:19 EDT COMPLETE BLOOD COUNT Routine 11/06/2012 7:19 EDT COMPLETE BLOOD COUNT AND DIFFERENTIAL Routine 11/06/2012 7:19 EDT BUN Routine 11/06/2012 7:19 EDT CREATININE Routine 11/06/2012 7:19 EDT ELECTROLYTES Routine 11/06/2012 7:19 EDT DIFFERENTIAL Routine 11/05/2012 7:22 EDT COMPLETE BLOOD COUNT Routine 11/05/2012 7:22 EDT COMPLETE BLOOD COUNT AND DIFFERENTIAL Routine 11/05/2012 7:22 EDT BUN Routine 11/05/2012 7:22 EDT CREATININE Routine 11/05/2012 7:22 EDT ELECTROLYTES Routine 11/05/2012 7:22 EDT GLUCOSE, GLUCOMETER Routine 11/04/2012 1 1:17 EDT GLUCOSE, GLUCOMETER Routine 11/04/2012 7 :03 EDT DIFFERENTIAL Routine 11/04/2012 6:39 EDT COMPLETE BLOOD COUNT Routine 11/04/2012 6:39 EDT COMPLETE BLOOD COUNT AND DIFFERENTIAL Routine 11/04/2012 6:39 EDT BUN Routine 11/04/2012 6:39 EDT PHOSPHORUS Routine 11/04/2012 6:39 EDT MAGNESIUM Routine 11/04/2012 6:39 EDT CREATININE Routine 11/04/2012 6:39 EDT ELECTROLYTES Routine 11/04/2012 6:39 EDT GLUCOSE, GLUCOMETER Routine 11/04/2012 0 :20 EDT GLUCOSE, GLUCOMETER Routine 11/03/2012 1 6:39 EDT GLUCOSE, GLUCOMETER Routine 11/03/2012 1 1:39 EDT DIFFERENTIAL Routine 11/03/2012 6:00 EDT COMPLETE BLOOD COUNT Routine 11/03/2012 6:00 EDT COMPLETE BLOOD COUNT AND DIFFERENTIAL Routine 11/03/2012 6:00 EDT BUN Routine 11/03/2012 6:00 EDT PHOSPHORUS Routine 11/03/2012 6:00 EDT MAGNESIUM Routine 11/03/2012 6:00 EDT CREATININE Routine 11/03/2012 6:00 EDT ELECTROLYTES Routine 11/03/2012 6:00 EDT GLUCOSE, GLUCOMETER Routine 11/03/2012 5 :26 EDT GLUCOSE, GLUCOMETER Routine 11/03/2012 0 :04 EDT GLUCOSE, GLUCOMETER Routine 11/02/2012 1 6:52 EDT GLUCOSE, GLUCOMETER Routine 11/02/2012 1 0:30 EDT DIFFERENTIAL Routine 11/02/2012 4:48 EDT COMPLETE BLOOD COUNT Routine 11/02/2012 4:48 EDT BUN Routine 11/02/2012 4:48 EDT PHOSPHORUS Routine 11/02/2012 4:48 EDT MAGNESIUM Routine 11/02/2012 4:48 EDT HEMOGLOBIN A1C Routine 11/02/2012 4:48 EDT CREATININE Routine 11/02/2012 4:48 EDT ELECTROLYTES Routine 11/02/2012 4:48 EDT INCENTIVE SPIROMETRY RT Routine 11/02/2012 0:07 EDT INCENTIVE SPIROMETRY RT Routine 11/02/2012 0:07 EDT INCENTIVE SPIROMETRY RT Routine 11/02/2012 0:07 EDT INCENTIVE SPIROMETRY RT Routine 11/02/2012 0:07 EDT HEMATOCRIT Routine 11/01/2012 23:56 EDT ZZBLOOD GAS, G3 ISTAT Routine 11/01/2012 20:50 EDT INPATIENT ADD-ON Routine 11/01/2012 18:2 5 EDT GLUCOSE, GLUCOMETER Routine 11/01/2012 1 6:06 EDT HEMATOCRIT Routine 11/01/2012 16:02 EDT HEMOGLOBIN A1C Routine 11/01/2012 16:02 EDT INCENTIVE SPIROMETRY RT Routine 11/01/2012 13:27 EDT INCENTIVE SPIROMETRY RT Routine 11/01/2012 13:27 EDT TRANSFUSE RED BLOOD CELLS Routine 11/01/2012 13:26 EDT PORTABLE CHEST PA CENTRAL LINE/PICC/ET TUBE,INITIAL INSERTION STAT 11/01/2012 12:17 EDT GLUCOSE, GLUCOMETER Routine 11/01/2012 1 2:17 EDT SCREENING GLUCOSE Routine 11/01/2012 12: 12 EDT CALCIUM, IONIZED Routine 11/01/2012 12:1 2 EDT COMPLETE BLOOD COUNT Routine 11/01/2012 12:12 EDT BUN Routine 11/01/2012 12:12 EDT PHOSPHORUS Routine 11/01/2012 12:12 EDT MAGNESIUM Routine 11/01/2012 12:12 EDT CREATININE Routine 11/01/2012 12:12 EDT ELECTROLYTES Routine 11/01/2012 12:12 EDT MRSA PCR Routine 11/01/2012 12:00 EDT PREPARE RED BLOOD CELLS Routine 11/01/2012 11:58 EDT PREPARE RED BLOOD CELLS Routine 11/01/2012 11:58 EDT BLOOD GAS, EG6 ISTAT Routine 11/01/2012 9:49 EDT GLUCOSE, GLUCOMETER Routine 11/01/2012 9 :48 EDT ORDERS - SCANNED 10/27/2012 12:5 5 EDT documented in this encounter Results * ECG REPORT - SCANNED (11/11/2012 7:08 EDT) 11/11/2012 7:08 EDT Narrative 11/11/2012 8:18 EDT Procedure Note WEB ANALYTICS SPECIALIST, SCAN 2 - 11/11/2012 7:08 EDT us Scan 2 Actuary Manager PROCEDURE/MINOR SURGICAL OR DERABLES Final Result * IMPLANT RECORD - SCANNED (11/11/2012 7:08 EDT) 11/11/2012 7:08 EDT Narrative 11/11/2012 8:18 EDT Procedure Note WEB ANALYTICS SPECIALIST, SCAN 2 - 11/11/2012 7:08 EDT us Scan 2 Actuary Manager PROCEDURE/MINOR SURGICAL OR DERABLES Final Result * TRANSFUSION RECORD - SCANNED (11/11/2012 7:08 EDT) 11/11/2012 7:08 EDT Narrative 11/11/2012 8:18 EDT Procedure Note WEB ANALYTICS SPECIALIST, SCAN 2 - 11/11/2012 7:08 EDT us Scan 2 Actuary Manager LAB INFO SERVICE AND SUPPOR T & PHONE RESULT Final Result * (ABNORMAL) DIFFERENTIAL (11/06/2012 7:19 EDT) % Neutrophils 71.1 45.5 - 79.7 % [facility] % Lymphocytes 17.4 15.0 - 46.8 % [facility] % Monocytes 8.1 1.8 - 12.0 % [facility] % Eosinophils 2.3 0.6 - 6.9 % [facility] % Basophils 1.1 0.2 - 1.4 % [facility] ABS Neutrophils 7.12 2.20 - 8.85 K/cmm [facility] ABS Lymphs 1.75 1.09 - 3.30 K/cmm [facility] ABS Monocytes 0.81(H) 0.1 - 0.8 K/cmm [facility] ABS Eosinophils 0.23 0.03 - 0.61 K/cmm [facility] ABS Basophils 0.12(H) 0.01 - 0.11 K/cmm [facility] Type of Diff: Automated [facility] 11/06/2012 7:19 EDT 11/06/2012 7:38 EDT us Jaime Espinoza MD HEMATOLOGY & PF4 ORDERABLES Clarita l Result [facility] [address] [place] [address] * (ABNORMAL) HEMAGRAM (11/06/2012 7:19 EDT) WBC 10.02 4.0 - 12.4 K/cmm [facility] RBC 2.70(L) 3.86 - 5.04 M/cmm [facility] Hemoglobin 8.0(L) 11.6 - 15.2 gm/dl [facility] HCT 23.3(L) 34.9 - 44.4 % [facility] MCV 86 81 - 98 fl [facility] MCH 29.5 26.7 - 33.3 pg [facility] MCHC 34.2 32.1 - 35.9 gm/dl [facility] PLT 280 141 - 320 K/cmm [facility] RDW-CV 13.7 11.7 - 14.6 % [facility] 11/06/2012 7:19 EDT 11/06/2012 7:38 EDT Jaime Espinoza MD HEMATOLOGY & PF4 ORDERABLES Clarita l Result Performing Organization Address [facility] Co de Phone Number [facility] [address] [place] [address] * (ABNORMAL) CREATININE (11/06/2012 7:19 EDT) Pathologist [facility] Creatinine 0.49(L) 0.52 - 1.04 mg/dl [facility] GFR, Calculated >60 >60 ml/min/1.7 3m2 [facility] Blood specimen (specimen) 11/06/2012 7:19 EDT 11/06/2012 7:38 EDT Jaime Espinoza MD CHEMISTRY & BLOOD GAS ORDERABLES Final Result Performing Organization Address [facility] de Phone Number [facility] [address] [place] [address] * (ABNORMAL) BUN (11/06/2012 7:19 EDT) BUN 7(L) 10 - 26 mg/dl [facility] Blood specimen (specimen) 11/06/2012 7:19 EDT 11/06/2012 7:38 EDT Jaime Espinoza MD CHEMISTRY & BLOOD GAS ORDERABLES Final Result Performing Organization Address [facility] de Phone Number [facility] [address] [place] [address] * (ABNORMAL) ELECTROLYTES (11/06/2012 7:19 EDT) Sodium 136 136 - 145 mEq/L [facility] Potassium 3.4(L) 3.5 - 5.0 mEq/L [facility] Chloride 104 96 - 110 mEq/L [facility] CO2 22(L) 24 - 32 mEq/L [facility] Blood specimen (specimen) 11/06/2012 7:19 EDT 11/06/2012 7:38 EDT Jaime Espinoza MD CHEMISTRY & BLOOD GAS ORDERABLES Final Result Performing Organization Address [facility] Co de Phone Number [facility] [address] [place] [address] * DIFFERENTIAL (11/05/2012 7:22 EDT) % Neutrophils 71.7 45.5 - 79.7 % [facility] % Lymphocytes 18.4 15.0 - 46.8 % [facility] % Monocytes 7.3 1.8 - 12.0 % [facility] % Eosinophils 2.2 0.6 - 6.9 % [facility] % Basophils 0.4 0.2 - 1.4 % [facility] ABS Neutrophils 7.32 2.20 - 8.85 K/cmm [facility] ABS Lymphs 1.88 1.09 - 3.30 K/cmm [facility] ABS Monocytes 0.75 0.1 - 0.8 K/cmm [facility] ABS Eosinophils 0.23 0.03 - 0.61 K/cmm [facility] ABS Basophils 0.05 0.01 - 0.11 K/cmm [facility] Type of Diff: Automated [facility] 11/05/2012 7:22 EDT 11/05/2012 8:30 EDT Jaime Espinoza MD HEMATOLOGY & PF4 ORDERABLES Clarita l Result Performing Organization Address [facility] Co de Phone Number [facility] [address] [place] [address] * (ABNORMAL) HEMAGRAM (11/05/2012 7:22 EDT) WBC 10.22 4.0 - 12.4 K/cmm [facility] RBC 2.60(L) 3.86 - 5.04 M/cmm [facility] Hemoglobin 7.7(L) 11.6 - 15.2 gm/dl [facility] HCT 22.7(L) 34.9 - 44.4 % [facility] MCV 87 81 - 98 fl [facility] MCH 29.6 26.7 - 33.3 pg [facility] MCHC 33.9 32.1 - 35.9 gm/dl [facility] PLT 235 141 - 320 K/cmm [facility] RDW-CV 13.9 11.7 - 14.6 % [facility] 11/05/2012 7:22 EDT 11/05/2012 8:30 EDT Jaime Espinoza MD HEMATOLOGY & PF4 ORDERABLES Clarita l Result Performing Organization Address [facility] Co de Phone Number [facility] [address] [place] [address] * CREATININE (11/05/2012 7:22 EDT) Creatinine 0.52 0.52 - 1.04 mg/dl [facility] GFR, Calculated >60 >60 ml/min/1.7 3m2 [facility] Blood specimen (specimen) 11/05/2012 7:22 EDT 11/05/2012 8:30 EDT Jaime Espinoza MD CHEMISTRY & BLOOD GAS ORDERABLES Final Result Performing Organization Address [facility]/ZIP Co de Phone Number [facility] [address] [place] [address] * (ABNORMAL) BUN (11/05/2012 7:22 EDT) BUN 9(L) 10 - 26 mg/dl [facility] Blood specimen (specimen) 11/05/2012 7:22 EDT 11/05/2012 8:30 EDT Jaime Espinoza MD CHEMISTRY & BLOOD GAS ORDERABLES Final Result Performing Organization Address [facility] de Phone Number [facility] [address] [place] [address] * ELECTROLYTES (11/05/2012 7:22 EDT) Sodium 136 136 - 145 mEq/L [facility] Potassium 3.5 3.5 - 5.0 mEq/L [facility] Chloride 103 96 - 110 mEq/L [facility] CO2 28 24 - 32 mEq/L [facility] Blood specimen (specimen) 11/05/2012 7:22 EDT 11/05/2012 8:30 EDT Jaime Espinoza MD CHEMISTRY & BLOOD GAS ORDERABLES Final Result Performing Organization Address [facility] de Phone Number [facility] [address] [place] [address] * GLUCOSE, GLUCOMETER (11/04/2012 11:17 EDT) Glucose, Fingerstick 90 70 - 100 mg/dl [facility] Planer Tailer [place] [id number] [facility] Comment:Test Performed by [facility] 11/04/2012 11:1 7 EDT 11/04/2012 11:37 EDT Result [facility] Tony Garza MD CHEMISTRY & BLOOD GAS ORD ERABLES Final Result Performing Organization Address [facility] de Phone Number [facility] [address] [place] [address] * (ABNORMAL) GLUCOSE, GLUCOMETER (11/04/2012 7:03 EDT) Glucose, Fingerstick 102(H) 70 - 100 mg/dl [facility] Planer Tailer ID [id number] [facility] Comment:Test Performed by [facility] 11/04/2012 7:03 EDT 11/04/2012 7:04 EDT Tony Garza MD CHEMISTRY & BLOOD GAS ORD ERABLES Final Result Performing Organization Address [facility]/ZIP Co de Phone Number [facility] [address] [place] [address] * (ABNORMAL) DIFFERENTIAL (11/04/2012 6:39 EDT) % Neutrophils 69.1 45.5 - 79.7 % [facility] % Lymphocytes 20.4 15.0 - 46.8 % [facility] % Monocytes 7.6 1.8 - 12.0 % [facility] % Eosinophils 2.6 0.6 - 6.9 % [facility] % Basophils 0.3 0.2 - 1.4 % [facility] ABS Neutrophils 7.63 2.20 - 8.85 K/cmm [facility] ABS Lymphs 2.25 1.09 - 3.30 K/cmm [facility] ABS Monocytes 0.84(H) 0.1 - 0.8 K/cmm [facility] ABS Eosinophils 0.28 0.03 - 0.61 K/cmm [facility] ABS Basophils 0.03 0.01 - 0.11 K/cmm [facility] Type of Diff: Automated [facility] 11/04/2012 6:39 EDT 11/04/2012 7:30 EDT us Jaime Espinoza MD HEMATOLOGY & PF4 ORDERABLES Clarita l Result Performing Organization Address [facility] Co de Phone Number [facility] [address] [place] [address] * (ABNORMAL) HEMAGRAM (11/04/2012 6:39 EDT) WBC 11.03 4.0 - 12.4 K/cmm [facility] RBC 2.83(L) 3.86 - 5.04 M/cmm [facility] Hemoglobin 8.1(L) 11.6 - 15.2 gm/dl [facility] HCT 24.7(L) 34.9 - 44.4 % [facility] MCV 88 81 - 98 fl [facility] MCH 28.7 26.7 - 33.3 pg [facility] MCHC 32.8 32.1 - 35.9 gm/dl [facility] PLT 191 141 - 320 K/cmm [facility] RDW-CV 13.9 11.7 - 14.6 % [facility] 11/04/2012 6:39 EDT 11/04/2012 7:30 EDT Jaime Espinoza MD HEMATOLOGY & PF4 ORDERABLES Clartia l Result [facility] [address] [place] [address] * PHOSPHORUS (11/04/2012 6:39 EDT) Phosphorus 3.2 2.5 - 4.5 mg/dl [facility] Blood specimen (specimen) 11/04/2012 6:39 EDT 11/04/2012 7:30 EDT Jaime Espinoza MD CHEMISTRY & BLOOD GAS ORDERABLES Final Result Performing Organization Address [facility] de Phone Number [facility] [address] [place] [address] * MAGNESIUM (11/04/2012 6:39 EDT) Magnesium 2.0 1.7 - 2.8 mg/dl [facility] Blood specimen (specimen) 11/04/2012 6:39 EDT 11/04/2012 7:30 EDT Jaime Espinoza MD CHEMISTRY & BLOOD GAS ORDERABLES Final Result Performing Organization Address [facility] de Phone Number [facility] [address] [place] [address] * CREATININE (11/04/2012 6:39 EDT) Creatinine 0.58 0.52 - 1.04 mg/dl [facility] GFR, Calculated >60 >60 ml/min/1.7 3m2 [facility] Blood specimen (specimen) 11/04/2012 6:39 EDT 11/04/2012 7:30 EDT Jaime Espinoza MD CHEMISTRY & BLOOD GAS ORDERABLES Final Result Performing Organization Address [facility] de Phone Number [facility] [address] [place] [address] * (ABNORMAL) BUN (11/04/2012 6:39 EDT) BUN 6(L) 10 - 26 mg/dl [facility] Blood specimen (specimen) 11/04/2012 6:39 EDT 11/04/2012 7:30 EDT Jaime Espinoza MD CHEMISTRY & BLOOD GAS ORDERABLES Final Result Performing Organization Address [facility] de Phone Number [facility] [address] [place] [address] * ELECTROLYTES (11/04/2012 6:39 EDT) Sodium 137 136 - 145 mEq/L [facility] Potassium 3.9 3.5 - 5.0 mEq/L [facility] Chloride 104 96 - 110 mEq/L [facility] CO2 29 24 - 32 mEq/L [facility] Blood specimen (specimen) 11/04/2012 6:39 EDT 11/04/2012 7:30 EDT Result [facility] Jaime Espinoza MD CHEMISTRY & BLOOD GAS ORDERABLES Final Result Performing Organization Address [facility] de Phone Number [facility] [address] [place] [address] * GLUCOSE, GLUCOMETER (11/04/2012 0:20 EDT) Glucose, Fingerstick 88 70 - 100 mg/dl [facility] Planer Tailer ID [id number] [facility] Comment:Test Performed by [facility] Services 11/04/2012 0:20 EDT 11/04/2012 0:31 EDT Tony Garza MD CHEMISTRY & BLOOD GAS ORD ERABLES Final Result Performing Organization Address [facility] de Phone Number [facility] [address] [place] [address] * (ABNORMAL) GLUCOSE, GLUCOMETER (11/03/2012 16:39 EDT) Glucose, Fingerstick 106(H) 70 - 100 mg/dl [facility] Planer Tailer [place] [id number] [facility] Comment:Test Performed by rsing Services 11/03/2012 16:3 9 EDT 11/03/2012 16:50 EDT us Tony Garza MD CHEMISTRY & BLOOD GAS ORD ERABLES Final Result Performing Organization Address [facility] de Phone Number [facility] [address] [place] [address] * (ABNORMAL) GLUCOSE, GLUCOMETER (11/03/2012 11:39 EDT) Glucose, Fingerstick 112(H) 70 - 100 mg/dl [facility] Planer Tailer [place] [id number] [facility] Comment:Test Performed by rsing Services 11/03/2012 11:3 9 EDT 11/03/2012 11:41 EDT us Tony Garza MD CHEMISTRY & BLOOD GAS ORD ERABLES Final Result Performing Organization Address [facility] de Phone Number [facility] [address] [place] [address] * (ABNORMAL) DIFFERENTIAL (11/03/2012 6:00 EDT) % Neutrophils 75.0 45.5 - 79.7 % [facility] % Lymphocytes 17.1 15.0 - 46.8 % [facility] % Monocytes 7.0 1.8 - 12.0 % [facility] % Eosinophils 0.6 0.6 - 6.9 % [facility] % Basophils 0.3 0.2 - 1.4 % [facility] ABS Neutrophils 10.33(H) 2.20 - 8.85 K/cmm [facility] ABS Lymphs 2.35 1.09 - 3.30 K/cmm [facility] ABS Monocytes 0.96(H) 0.1 - 0.8 K/cmm [facility] ABS Eosinophils 0.08 0.03 - 0.61 K/cmm [facility] ABS Basophils 0.05 0.01 - 0.11 K/cmm [facility] Type of Diff: Automated [facility] 11/03/2012 6:00 EDT 11/03/2012 6:31 EDT Jaime Espinoza MD HEMATOLOGY & PF4 ORDERABLES Clarita l Result Performing Organization Address City/[facility]/ZIP Co de Phone Number [facility] [address] [place] [address] * (ABNORMAL) HEMAGRAM (11/03/2012 6:00 EDT) WBC 13.76(H) 4.0 - 12.4 K/cmm [facility] RBC 3.09(L) 3.86 - 5.04 M/cmm [facility] Hemoglobin 9.0(L) 11.6 - 15.2 gm/dl [facility] HCT 26.6(L) 34.9 - 44.4 % [facility] MCV 86 81 - 98 fl [facility] MCH 29.2 26.7 - 33.3 pg [facility] MCHC 34.0 32.1 - 35.9 gm/dl [facility] PLT 191 141 - 320 K/cmm [facility] RDW-CV 14.1 11.7 - 14.6 % [facility] 11/03/2012 6:00 EDT 11/03/2012 6:31 EDT Jaime Espinoza MD HEMATOLOGY & PF4 ORDERABLES Clarita l Result Performing Organization Address City/[facility]/ZIP Co de Phone Number [facility] [address] [place] [address] * PHOSPHORUS (11/03/2012 6:00 EDT) Phosphorus 2.8 2.5 - 4.5 mg/dl [facility] Blood specimen (specimen) 11/03/2012 6:00 EDT 11/03/2012 6:31 EDT Jaime Espinoza MD CHEMISTRY & BLOOD GAS ORDERABLES Final Result Performing Organization Address [facility] de Phone Number [facility] [address] [place] [address] * MAGNESIUM (11/03/2012 6:00 EDT) Magnesium 1.9 1.7 - 2.8 mg/dl [facility] Blood specimen (specimen) 11/03/2012 6:00 EDT 11/03/2012 6:31 EDT Jaime Espinoza MD CHEMISTRY & BLOOD GAS ORDERABLES Final Result Performing Organization Address [facility] de Phone Number [facility] [address] [place] [address] * CREATININE (11/03/2012 6:00 EDT) Pathologist [facility] Creatinine 0.57 0.52 - 1.04 mg/dl [facility] GFR, Calculated >60 >60 ml/min/1.7 3m2 [facility] Blood specimen (specimen) 11/03/2012 6:00 EDT 11/03/2012 6:31 EDT Jaime Espinoza MD CHEMISTRY & BLOOD GAS ORDERABLES Final Result Performing Organization Address [facility] de Phone Number [facility] [address] [place] [address] * (ABNORMAL) BUN (11/03/2012 6:00 EDT) Pathologist [facility] BUN 5(L) 10 - 26 mg/dl [facility] Blood specimen (specimen) 11/03/2012 6:00 EDT 11/03/2012 6:31 EDT Jaime Espinoza MD CHEMISTRY & BLOOD GAS ORDERABLES Final Result Performing Organization Address [facility] de Phone Number [facility] [address] [place] [address] * ELECTROLYTES (11/03/2012 6:00 EDT) Sodium 137 136 - 145 mEq/L [facility] Potassium 4.0 3.5 - 5.0 mEq/L [facility] Chloride 107 96 - 110 mEq/L [facility] CO2 28 24 - 32 mEq/L [facility] Blood specimen (specimen) 11/03/2012 6:00 EDT 11/03/2012 6:31 EDT Jaime Espinoza MD CHEMISTRY & BLOOD GAS ORDERABLES Final Result Performing Organization Address [facility] Phone Number [facility] [address] [place] [address] * (ABNORMAL) GLUCOSE, GLUCOMETER (11/03/2012 5:26 EDT) Glucose, Fingerstick 128(H) 70 - 100 mg/dl [facility] Planer Tailer [place] [id number] [facility] Comment:Test Performed by [employer] 11/03/2012 5:26 EDT 11/03/2012 5:39 EDT Result [facility] Tony Garza MD CHEMISTRY & BLOOD GAS ORD ERABLES Final Result Performing Organization Address [facility] de Phone Number [facility] [address] [place] [address] * (ABNORMAL) GLUCOSE, GLUCOMETER (11/03/2012 0:04 EDT) Glucose, Fingerstick 129(H) 70 - 100 mg/dl [facility] Planer Tailer ID [id number] [facility] Comment:Test Performed by [employer] 11/03/2012 0:04 EDT 11/03/2012 0:14 EDT Tony Garza MD CHEMISTRY & BLOOD GAS ORD ERABLES Final Result Performing Organization Address [facility] de Phone Number [facility] [address] [place] [address] * (ABNORMAL) GLUCOSE, GLUCOMETER (11/02/2012 16:52 EDT) Glucose, Fingerstick 125(H) 70 - 100 mg/dl [facility] Planer Tailer ID [id number] [facility] Comment:Test Performed by [employer] 11/02/2012 16:5 2 EDT 11/02/2012 17:03 EDT Tony Garza MD CHEMISTRY & BLOOD GAS ORD ERABLES Final Result Performing Organization Address [facility] de Phone Number [facility] [address] [place] [address] * (ABNORMAL) GLUCOSE, GLUCOMETER (11/02/2012 10:30 EDT) Glucose, Fingerstick 125(H) 70 - 100 mg/dl [facility] Planer Tailer [place] [id number] [facility] Comment:Test Performed by [employer] 11/02/2012 10:3 0 EDT 11/02/2012 10:31 EDT Tony Garza MD CHEMISTRY & BLOOD GAS ORD ERABLES Final Result Performing Organization Address [facility] de Phone Number [facility] [address] [place] [address] * (ABNORMAL) DIFFERENTIAL (11/02/2012 4:48 EDT) Neutrophils 90.0(H) 45.5 - 79.7 % [facility] Lymphocytes 6.0(L) 15.0 - 46.8 % [facility] Monocytes 4.0 1.8 - 12.0 % [facility] ABS Neutrophils 16.03(H) 2.20 - 8.85 K/cmm [facility] ABS Lymphs 1.07(L) 1.09 - 3.30 K/cmm [facility] ABS Monocytes 0.71 0.1 - 0.8 K/cmm [facility] RBC Morphology 1+ [facility] Comment: Anisocytosis 1+ Ovalocytes WBC Morphology 1+ [facility]C [facility] Comment:Vacuolization Type of Diff: Manual [facility]OLY[facility] 11/02/2012 4:48 EDT 11/02/2012 4:55 EDT us Tony Garza MD HEMATOLOGY & PF4 ORDERABL ES Final Result Performing Organization Address [facility] de Phone Number [facility] [address] [place] [address] * (ABNORMAL) HEMAGRAM (11/02/2012 4:48 EDT) WBC 17.81(H) 4.0 - 12.4 K/cmm [facility] RBC 3.44(L) 3.86 - 5.04 M/cmm [facility] Hemoglobin 10.2(L) 11.6 - 15.2 gm/dl [facility] HCT 29.5(L) 34.9 - 44.4 % [facility] MCV 86 81 - 98 fl [facility] MCH 29.6 26.7 - 33.3 pg [facility] MCHC 34.5 32.1 - 35.9 gm/dl [facility] PLT 198 141 - 320 K/cmm [facility] RDW-CV 14.0 11.7 - 14.6 % [facility] 11/02/2012 4:48 EDT 11/02/2012 4:55 EDT us Tony Garza MD HEMATOLOGY & PF4 ORDERABL ES Final Result Performing Organization Address [facility] de Phone Number [facility] [address] [place] [address] * HEMOGLOBIN A1C (11/02/2012 4:48 EDT) Hemoglobin A1C 5.8 % [facility] Comment: Reference Range: <5.7% Normal 5.7-6.4% Increased risk for diabetes =>6.5% Diagnostic for diabetes (if confirmed) The A1c goal for non adults in general is <7%. The A1c goal for selected patients may be significantly lower than 7% if this can be achieved without significant hypoglycemia or other adverse effects of treatment. Est Avg Glucose 120 mg/dl [facility] Comment: eAG represents the A1c result expressed as average glucose in mg/dl. 11/02/2012 4:48 EDT 11/02/2012 4:55 EDT Tony Garza MD CHEMISTRY & BLOOD GAS ORD ERABLES Final Result Performing Organization Address City[facility]/ZIP Co de Phone Number [facility] [address] [place] [address] * PHOSPHORUS (11/02/2012 4:48 EDT) Phosphorus 2.9 2.5 - 4.5 mg/dl [facility] Blood specimen (specimen) 11/02/2012 4:48 EDT 11/02/2012 4:54 EDT Jaime Espinoza MD CHEMISTRY & BLOOD GAS ORDERABLES Final Result Performing Organization Address [facility] de Phone Number [facility] [address] [place] [address] * MAGNESIUM (11/02/2012 4:48 EDT) Magnesium 2.1 1.7 - 2.8 mg/dl [facility] Blood specimen (specimen) 11/02/2012 4:48 EDT 11/02/2012 4:54 EDT Jaime Espinoza MD CHEMISTRY & BLOOD GAS ORDERABLES Final Result Performing Organization Address [facility] Co de Phone Number [facility] [address] [place] [address] * CREATININE (11/02/2012 4:48 EDT) Creatinine 0.54 0.52 - 1.04 mg/dl [facility] GFR, Calculated >60 >60 ml/min/1.7 3m2 [facility] Blood specimen (specimen) 11/02/2012 4:48 EDT 11/02/2012 4:54 EDT Jaime Espinoza MD CHEMISTRY & BLOOD GAS ORDERABLES Final Result Performing Organization Address [facility] de Phone Number [facility] [address] [place] [address] * (ABNORMAL) BUN (11/02/2012 4:48 EDT) BUN 5(L) 10 - 26 mg/dl [facility] Blood specimen (specimen) 11/02/2012 4:48 EDT 11/02/2012 4:54 EDT Jaime Espinoza MD CHEMISTRY & BLOOD GAS ORDERABLES Final Result Performing Organization Address [facility] de Phone Number [facility] [address] [place] [address] * (ABNORMAL) ELECTROLYTES (11/02/2012 4:48 EDT) Sodium 133(L) 136 - 145 mEq/L [facility] Potassium 4.4 3.5 - 5.0 mEq/L [facility] Chloride 108 96 - 110 mEq/L [facility] CO2 22(L) 24 - 32 mEq/L [facility] Blood specimen (specimen) 11/02/2012 4:48 EDT 11/02/2012 4:54 EDT us Jaime Espinoza MD CHEMISTRY & BLOOD GAS ORDERABLES Final Result Performing Organization Address [facility] de Phone Number [facility] [address] [place] [address] * (ABNORMAL) HEMATOCRIT (11/01/2012 23:56 EDT) HCT 29.2(L) 34.9 - 44.4 % [facility] Blood specimen (specimen) 11/01/2012 23:56 EDT 11/02/2012 0:02 EDT us Jaime Espinoza MD HEMATOLOGY & PF4 ORDERABLES Clarita l Result Performing Organization Address [facility] Co de Phone Number [facility] [address] [place] [address] * (ABNORMAL) BLOOD GAS, G3 ISTAT (11/01/2012 20:50 EDT) pH, i-STAT 7.34(L) 7.35 - 7.45 [facility] pCO2, i-STAT 36 35 - 45 mmHg [facility] pO2, i-STAT 64(L) 80 - 105 mmHg [facility] TCO2, i-STAT 21 mEq/L [facility] O2 Saturation 91 % [facility] Base Deficit, i-STAT 6 [facility] FIO2 26 [facility] Sample Type ARTERIAL [facility] pasteurizer ID [id number] [facility] Comment: Test Performed by Respiratory For non-arterial reference ranges, please see ISTAT procedure. 11/01/2012 20:5 0 EDT 11/01/2012 20:57 EDT us Tony Garza MD CHEMISTRY & BLOOD GAS ORD ERABLES Final Result Performing Organization Address [facility] de Phone Number [facility] [address] [place] [address] * INPATIENT ADD-ON (11/01/2012 18:25 EDT) Tests to be added HEMOGLOBIN A1C [facility] Number for problems [id number] [facility] Accession number [id number] [facility] 11/01/2012 18:2 5 EDT 11/01/2012 18:27 EDT us Tony Garza MD HEMATOLOGY & PF4 ORDERABL ES Final Result Performing Organization Address [facility] de Phone Number [facility] [address] [place] [address] * (ABNORMAL) GLUCOSE, GLUCOMETER (11/01/2012 16:06 EDT) Glucose, Fingerstick 227(H) 70 - 100 mg/dl [facility] Planer Tailer [place] [id number] [facility] Comment:Test Performed by [facility] 11/01/2012 16:0 6 EDT 11/01/2012 16:12 EDT us Tony Garza MD CHEMISTRY & BLOOD GAS ORD ERABLES Final Result Performing Organization Address [facility] de Phone Number [facility] [address] [place] [address] * HEMOGLOBIN A1C (11/01/2012 16:02 EDT) Hemoglobin A1C 5.8 % [facility] Comment: Reference Range: <5.7% Normal 5.7-6.4% Increased risk for diabetes =>6.5% Diagnostic for diabetes (if confirmed) The A1c goal for non adults in general is <7%. The A1c goal for selected patients may be significantly lower than 7% if this can be achieved without significant hypoglycemia or other adverse effects of treatment. Est Avg Glucose 120 mg/dl [facility] Comment: eAG represents the A1c result expressed as average glucose in mg/dl. 11/01/2012 16:0 2 EDT 11/01/2012 16:15 EDT us Annika Workman MD CHEMISTRY & BLOOD GAS ORDERAB LES Final Result Performing Organization Address [facility] de Phone Number [facility] [address] [place] [address] * (ABNORMAL) HEMATOCRIT (11/01/2012 16:02 EDT) HCT 32.2(L) 34.9 - 44.4 % [facility] Blood specimen (specimen) 11/01/2012 16:02 EDT 11/01/2012 16:15 EDT us Jaime Espinoza MD HEMATOLOGY & PF4 ORDERABLES Clarita l Result Performing Organization Address [facility] Co de Phone Number [facility] [address] [place] [address] * (ABNORMAL) GLUCOSE, GLUCOMETER (11/01/2012 12:17 EDT) Glucose, Fingerstick 154(H) 70 - 100 mg/dl [facility] Planer Tailer ID [id number] [facility] Comment:Test Performed by [facility] 11/01/2012 12:1 7 EDT 11/01/2012 12:19 EDT us Tony Garza MD CHEMISTRY & BLOOD GAS ORD ERABLES Final Result Performing Organization Address [facility] Co de Phone Number [facility] [address] [place] [address] * PORTABLE CHEST PA CENTRAL LINE/PICC/ET TUBE,INITIAL INSERTION (11/01/2012 12:17 EDT) Anatomical Region Laterality Modality Other 11/01/2012 12:1 7 EDT 11/01/2012 12:24 EDT Narrative 11/01/2012 12:24 EDT PORTABLE CHEST 1 VIEW INITIAL LINE, ET INSERTION ??11/01/2012 12:17 PM Signs and Symptoms/Comments: ??Right IJ Comparison: 10/18/2012 Findings: Portable AP supine view of the chest shows interval placement of a right internal jugular catheter with the tip over the mid SVC and a transesophageal tube, the side port of which is beyond the gastric fundus. There is no evidence of pneumothorax, but one cannot be excluded on this non-upright radiograph. Patchy opacity in both bases is new since the previous examination and likely reflects atelectasis as both ryan are slightly depressed. Procedure Note 11/01/2012 PORTABLE CHEST 1 VIEW INITIAL LINE, ET INSERTION 11/01/2012 12:17 PM Signs and Symptoms/Comments: Right IJ Comparison: 10/18/2012 Findings: Portable AP supine view of the chest shows interval placement of a right internal jugular catheter with the tip over the mid SVC and a transesophageal tube, the side port of which is beyond the gastric fundus. There is no evidence of pneumothorax, but one cannot be excluded on this non-upright radiograph. Patchy opacity in both bases is new since the previous examination and likely reflects atelectasis as both ryan are slightly depressed. us Annika Workman MD IMG DIAGNOSTIC IMAGING ORDERA BLES Final Result * CALCIUM, IONIZED (11/01/2012 12:12 EDT) Calcium, Ionized 1.15 1.12 - 1.32 mmol/L [facility] Blood specimen (specimen) 11/01/2012 12:12 EDT 11/01/2012 12:24 EDT us Annika Workman MD CHEMISTRY & BLOOD GAS ORDERAB LES Final Result Performing Organization Address [facility] Co de Phone Number [facility] [address] [place] [address] * PHOSPHORUS (11/01/2012 12:12 EDT) Phosphorus 3.0 2.5 - 4.5 mg/dl [facility] Blood specimen (specimen) 11/01/2012 12:12 EDT 11/01/2012 12:24 EDT us Annika Workman MD CHEMISTRY & BLOOD GAS ORDERAB LES Final Result Performing Organization Address [facility] de Phone Number [facility] [address] [place] [address] * (ABNORMAL) MAGNESIUM (11/01/2012 12:12 EDT) Magnesium 1.4(L) 1.7 - 2.8 mg/dl [facility] Blood specimen (specimen) 11/01/2012 12:12 EDT 11/01/2012 12:24 EDT us Annika Workman MD CHEMISTRY & BLOOD GAS ORDERAB LES Final Result Performing Organization Address [facility] de Phone Number [facility] [address] [place] [address] * CREATININE (11/01/2012 12:12 EDT) Pathologist [facility] Creatinine 0.54 0.52 - 1.04 mg/dl [facility] GFR, Calculated >60 >60 ml/min/1.7 3m2 [facility] Blood specimen (specimen) 11/01/2012 12:12 EDT 11/01/2012 12:24 EDT Annika Workman MD CHEMISTRY & BLOOD GAS ORDERAB LES Final Result Performing Organization Address [facility] Co de Phone Number [facility] [address] [place] [address] * (ABNORMAL) BUN (11/01/2012 12:12 EDT) Pathologist [facility] BUN 4(L) 10 - 26 mg/dl [facility] Blood specimen (specimen) 11/01/2012 12:12 EDT 11/01/2012 12:24 EDT Annika Workman MD CHEMISTRY & BLOOD GAS ORDERAB LES Final Result Performing Organization Address [facility] de Phone Number [facility] [address] [place] [address] * (ABNORMAL) ELECTROLYTES (11/01/2012 12:12 EDT) Pathologist [facility] Sodium 135(L) 136 - 145 mEq/L [facility] Potassium 3.8 3.5 - 5.0 mEq/L [facility] Chloride 108 96 - 110 mEq/L [facility] CO2 23(L) 24 - 32 mEq/L [facility] Blood specimen (specimen) 11/01/2012 12:12 EDT 11/01/2012 12:24 EDT us Annika Workman MD CHEMISTRY & BLOOD GAS ORDERAB LES Final Result Performing Organization Address [facility] de Phone Number [facility] [address] [place] [address] * (ABNORMAL) HEMAGRAM (11/01/2012 12:12 EDT) Pathologist [facility] WBC 23.93(H) 4.0 - 12.4 K/cmm [facility] RBC 2.73(L) 3.86 - 5.04 M/cmm [facility] Hemoglobin 7.9(L) 11.6 - 15.2 gm/dl [facility] HCT 23.6(L) 34.9 - 44.4 % [facility] MCV 86 81 - 98 fl [facility] MCH 28.9 26.7 - 33.3 pg [facility] MCHC 33.5 32.1 - 35.9 gm/dl [facility] PLT 228 141 - 320 K/cmm [facility] RDW-CV 13.8 11.7 - 14.6 % [facility] Blood specimen (specimen) 11/01/2012 12:12 EDT 11/01/2012 12:24 EDT Annika Workman MD HEMATOLOGY & PF4 ORDERABLES F inal Result Performing Organization Address [facility] Co de Phone Number [facility] [address] [place] [address] * (ABNORMAL) SCREENING GLUCOSE (11/01/2012 12:12 EDT) Pathologist [facility] Glucose, Screening 135(H) 70 - 100 mg/dl [facility] Blood specimen (specimen) 11/01/2012 12:12 EDT 11/01/2012 12:24 EDT Annika Workman MD CHEMISTRY & BLOOD GAS ORDERAB LES Final Result Performing Organization Address [facility] de Phone Number [facility] [address] [place] [address] * MRSA MOLECULAR DETECTION (11/01/2012 12:00 EDT) Specimen Description Nasal [facility] Result Result indeterminate. Suggest repeat if clinically indicated. [facility] Specimen of unknown material (specimen) TOPOGRAPHY UNKNOWN / Unknown 11/01/2012 12:00 EDT 11/01/2012 14:54 EDT us Tony Garza MD MICROBIOLOGY - GENERAL OR DERABLES Final Result Performing Organization Address [facility] Co de Phone Number [facility] [address] [place] [address] * PREPARE RED BLOOD CELLS (11/01/2012 11:58 EDT) Product Code E0382 -3 RED BLOOD CELLS, Leukocytes Reduced [facility] Donor Number [id number] [facility] Unit ABO B [facility] Rh NEG [facility] Cross Match Interp Compatible [facility] Unit Status Released From [employer] [facility] 11/01/2012 11:5 8 EDT us Provider Unknown BLOOD BANK ORDERABLES Final Result Performing Organization Address [facility] Co de Phone Number [facility] [address] [place] [address] * PREPARE RED BLOOD CELLS (11/01/2012 11:58 EDT) Pathologist [facility] Product Code E0382 -3 RED BLOOD CELLS, Leukocytes Reduced [facility] Donor Number [id number] [facility] Unit ABO B [facility] Unit Rh NEG [facility] Cross Match Interp Compatible [facility] Unit Status Transfuse [facility] 11/01/2012 11:5 8 EDT us Provider Unknown BLOOD BANK ORDERABLES Final Result Performing Organization Address [facility] Co de Phone Number [facility] [address] [place] [address] * (ABNORMAL) BLOOD GAS, EG6 ISTAT (11/01/2012 9:49 EDT) [facility] pH, i-STAT 7.31(L) 7.35 - 7.45 [facility] pCO2, i-STAT 43 35 - 45 mmHg [facility] pO2, i-STAT 182(H) 80 - 105 mmHg [facility] TCO2, i-STAT 23 mEq/L [facility] O2 Saturation 99 % [facility]OLY[facility] CL[facility] Sodium, i-STAT 138 136 - 145 mEq/L [facility] Potassium, i-STAT 4.6 3.5 - 5.0 mEq/L [facility] Base Deficit, i-STAT 4 [facility] Sample Type ARTERIAL [facility] pasteurizer ID [id number] [facility] Comment: Test performed by Anesthesia. For non-arterial reference ranges, please see ISTAT procedure. 11/01/2012 9:49 EDT 11/02/2012 6:49 EDT us Tony Garza MD CHEMISTRY & BLOOD GAS ORD ERABLES Final Result Performing Organization Address [facility] Co de Phone Number [facility] [address] [place] [address] * (ABNORMAL) GLUCOSE, GLUCOMETER (11/01/2012 9:48 EDT) Glucose, Fingerstick 133(H) 70 - 100 mg/dl [facility] Planer Tailer ID [id number] [facility] Comment:Test Performed by [facility] 11/01/2012 9:48 EDT 11/02/2012 6:16 EDT us Tony Garza MD CHEMISTRY & BLOOD GAS ORD ERABLES Final Result Performing Organization Address [facility] de Phone Number [facility] [address] [place] [address] * ORDERS - SCANNED (10/27/2012 12:55 EDT) 10/27/2012 12:5 5 EDT Narrative 10/27/2012 13:16 EDT Procedure Note WEB ANALYTICS SPECIALIST, SCAN 2 - 10/27/2012 12:55 EDT us Scan 2 Actuary Manager ADMISSION ORDERABLES Final Result documented in this encounter Visit Diagnoses Diagnosis Atherosclerosis of [place] arteries of the extremities with intermittent claudication Stress hyperglycemia Other abnormal blood chemistry Atherosclerosis of [place] arteries of the extremities with intermittent claudication documented in this encounter Administered Medications Inactive Administered Medications - up to 3 most recent administrations Medication Order MAR Action Action Date Dose Rate Site acetaminophen (TYLENOL) tablet 500-1,000 mg 500-1,000 mg, oral, EVERY 6 HOURS, First dose on Thu11/01/12 at 1230, Until Discontinued, Routine Given 11/05/2012 5:40 EDT 1,000 mg Given 11/04/2012 18:45 EDT 1,000 mg Given 11/04/2012 12:53 EDT 1,000 mg aspirin chewable tablet 81 mg 81 mg, oral, DAILY, First dose (after last reorder) on Opal 11/04/12 at 1215, Until Discontinued, Routine Given 11/06/2012 9:37 EDT 81 mg Given 11/05/2012 9:30 EDT 81 mg Given 11/04/2012 12:53 EDT 81 mg aspirin EC tablet 81 mg 81 mg, oral, DAILY, First dose on Thu11/01/12 at 1230, Until Discontinued, Routine Given 11/02/2012 8:19 EDT 81 mg Given 11/01/2012 14:58 EDT 81 mg aspirin suppository 300 mg 300 mg, rectal, DAILY, First dose on Thu11/03/12 at 0900, Until Discontinued, Routine Given 11/03/2012 10:18 EDT 300 mg benzocaine-menthol (CEPACOL) 15-3.6 mg lozenge 1 Lozenge 1 Lozenge, buccal, PRN, Starting on Thu11/03/12 at 0712, Until 11/06/12 at 1254, Pain, Routine Given 11/03/2012 14:56 EDT 1 Lozenge bupivacaine-fentanyl in NS 0.0625 %-2 mcg/mL 250 mL epidural epidural, CONTINUOUS, Starting on Thu11/01/12 at 1030, Until Opal 11/04/12 at 1136, PCEA Dose: 1 mL LOCKOUT Interval: 10 minutes BASAL Rate: 4 mL/hr ONE HOUR Dose Limit: 10 mL No additional narcotics to be given unless approved by APS, Routine Rate Documented 11/04/2012 9:32 EDT Rate Documented 11/03/2012 20:14 EDT New Bag 11/03/2012 6:56 EDT ceFAZolin (ANCEF) 1,000 mg in sodium chloride 0.9 % 50 mL IVPB 1,000 mg, intravenous, Administer over 30 Minutes, EVERY 8 HOURS, 3 doses, First dose on Thu11/01/12 at 1600, Last dose on Thu11/02/12 at 0800, Routine Given 11/02/2012 7:49 EDT 1,000 mg Given 11/02/2012 0:14 EDT 1,000 mg Given 11/01/2012 18:00 EDT 1,000 mg ceFAZolin (ANCEF) syringe 1 g 1 g, intravenous, Administer over 10 Minutes, PRE-OP ONCE, 1 dose, On Thu11/01/12 at 0630, Routine, Pre Op Day of Surgery Given by Other 11/01/2012 8:20 EDT 1 g dextrose 5 % and 0.45 % NaCl with KCl 20 mEq/L infusion at 75 mL/hr, intravenous, CONTINUOUS, Starting on Thu11/01/12 at 1230, Until Thu11/03/12 at 0703, Routine Rate Documented 11/02/2012 21:24 EDT 75 mL /hr New Bag 11/02/2012 20:29 EDT 75 mL/hr Rate Change 11/02/2012 17:20 EDT 75 mL/hr docusate (COLACE) liquid 100 mg 100 mg, per ng tube, 2 TIMES DAILY, First dose on Thu11/01/12 at 1230, Until Discontinued, Routine Given 11/03/2012 20:20 EDT 100 mg Given 11/03/2012 10:19 EDT 100 mg Given 11/02/2012 21:23 EDT 100 mg docusate sodium (COLACE) capsule 100 mg 100 mg, oral, 2 TIMES DAILY, First dose on Thu11/01/12 at 1230, Until Discontinued, Routine Given 11/02/2012 8:20 EDT 10 0 mg Given 11/01/2012 22:00 EDT 100 mg Given 11/01/2012 15:05 EDT 100 mg docusate sodium (COLACE) capsule 100 mg 100 mg, oral, DAILY, First dose on Thu11/05/12 at 0900, Until Discontinued, Routine Given 11/06/2012 9:37 EDT 100 mg Given 11/05/2012 9:30 EDT 100 mg Given 11/04/2012 12:56 EDT 100 mg enoxaparin (LOVENOX) injection 40 mg 40 mg, subcutaneous, EVERY 24 HOURS, First dose (after last reorder) on Thu11/01/12 at 2100, Until Discontinued, Routine Given 11/05/2012 21:14 EDT 40 mg Given 11/04/2012 21:05 EDT 40 mg Given 11/03/2012 20:20 EDT 40 mg famotidine (PEPCID) 20 mg/2 mL injection 20 mg 20 mg, intravenous, EVERY 12 HOURS, First dose on Thu11/01/12 at 2100, Until Discontinued, Routine Given 11/04/2012 9:41 EDT 20 mg Given 11/04/2012 9:34 EDT 20 mg Given 11/03/2012 20:15 EDT 20 mg famotidine (PEPCID) tablet 20 mg 20 mg, oral, EVERY 12 HOURS, First dose on Thu11/01/12 at 2100, Until Discontinued, Routine Given 11/02/2012 8:20 EDT 20 mg Given 11/01/2012 22:00 EDT 20 mg famotidine (PEPCID) tablet 20 mg 20 mg, per ng tube, EVERY 12 HOURS, First dose on Thu11/01/12 at 2100, Until Discontinued, Routine Given 11/04/2012 21:05 EDT 20 mg lactated ringers (LR) 1,000 mL BOLUS 1,000 mL, intravenous, NOW X1, 1 dose, On Thu11/01/12 at 2045, Routine Given 11/01/2012 20:20 EDT 1,000 mL lactated ringers (LR) 500 mL BOLUS 500 mL, intravenous, NOW X1, 1 dose, On Thu11/01/12 at 2215, Routine Given 11/01/2012 22:24 EDT 500 mL lactated ringers (LR) infusion at 25 mL/hr, intravenous, CONTINUOUS, Starting on Thu11/01/12 at 0630, Until Thu11/01/12 at 1205, Routine, Pre-Op DOS Rx Approved New Bag 11/01/2012 6:30 EDT 25 mL/hr magnesium sulfate in D5W 2 g/50 mL premade bag 2 g, intravenous, Administer over 30 Minutes, NOW X1, 1 dose, On Thu11/01/12 at 2215, Routine Given 11/01/2012 22:04 EDT 2 g metoprolol (LOPRESSOR) 2.5 mg in sodium chloride (NS) 0.9 % 50 mL IVPB 2.5 mg, intravenous, Administer over 20 Minutes, EVERY 6 HOURS, First dose on Thu11/03/12 at 1200, Until Discontinued, Routine Given 11/04/2012 5:52 EDT 2.5 mg Given 11/04/2012 0:11 EDT 2.5 mg Given 11/03/2012 17:47 EDT 2.5 mg metoprolol (LOPRESSOR) tablet 12.5 mg 12.5 mg, oral, 2 TIMES DAILY, First dose on Thu11/01/12 at 1230, Until Discontinued, Routine Given 11/02/2012 21:28 EDT 12.5 mg Given 11/02/2012 8:19 EDT 12.5 mg metoprolol (LOPRESSOR) tablet 12.5 mg 12.5 mg, oral, 2 TIMES DAILY, First dose (after last reorder) on Thu11/04/12 at 1215, Until Discontinued, Routine Given 11/06/2012 9:37 EDT 12.5 mg Given 11/05/2012 21:14 EDT 12.5 mg Given 11/05/2012 9:29 EDT 12.5 mg ondansetron (PF) (ZOFRAN) injection 2-4 mg 2-4 mg, intravenous, EVERY 6 HOURS PRN, Starting on Thu11/01/12 at 1205, Until Thu11/05/12 at 0735, Nausea, Routine Given 11/03/2012 20:14 EDT 2 mg Given 11/03/2012 11:25 EDT 4 mg Given 11/02/2012 21:44 EDT 4 mg potassium chloride SA (K-DUR, KLOR-CON M20) tablet 40 mEq 40 mEq, oral, NOW X1, 1 dose, On Thu11/05/12 at 1215, Routine Given 11/05/2012 13:08 EDT 40 mEq simvastatin (ZOCOR) tablet 40 mg 40 mg, oral, DAILY, First dose on Thu11/01/12 at 1230, Until Discontinued, Routine Given 11/02/2012 8:20 EDT 40 mg Given 11/01/2012 15:05 EDT 40 mg simvastatin (ZOCOR) tablet 40 mg 40 mg, oral, EVERY EVENING, First dose on Thu11/05/12 at 1700, Until Discontinued, Routine Given 11/05/2012 17:35 EDT 40 mg sodium chloride (NS) 0.9 % 1,000 mL BOLUS 1,000 mL, intravenous, NOW X1, 1 dose, On Thu11/01/12 at 1900, Routine Given 11/01/2012 18:39 EDT 1,000 mL sodium chloride 0.9 % flush 3 mL 3 mL, intravenous, EVERY 8 HOURS, First dose on Thu11/03/12 at 0800, Until Discontinued, Routine Given 11/06/2012 9:38 EDT 3 mL Given 11/05/2012 17:04 EDT 3 mL Given 11/05/2012 9:30 EDT 3 mL documented in this encounter Active and Recently Administered Medications Times are shown in EDT. Scheduled Medication Order 11/04/2012 11/05/2012 11/06/2012 acetaminophen (TYLENOL) tablet 500-1,000 mg 500-1,000 mg, oral, EVERY 6 HOURS, First dose on Thu11/01/12 at 1230, Until Discontinued, Routine 0022 (Not Given - Provider: Maura Xiong RN - Reason: Patient/family refused)0549 (Not Given - Provider: Maura Xiong RN - Reason: Patient/family refused)1253 (Given - Provider: Tarah De Souza RN)1845 (Given - Provider: Tarah De Souza RN) 0043 (Not Given - Provider: Maura Xiong RN - Reason: Patient/family refused)0540 (Given - Provider: Maura Xiong RN)1424 (Not Given - Provider: Tarah De Souza RN - Reason: Patient/family refused)1735 (Not Given - Provider: Tarah De Souza RN - Reason: Patient/family refused)2317 (Not Given - Provider: Tiff Bonilla RN - Reason: Patient/family refused) 0724 (Not Given - Provider: Tarah De Souza RN - Reason: Patient/family refused) aspirin chewable tablet 81 mg (CANCELED)(Linked Group 1) 81 mg, oral, DAILY, First dose (after last reorder) on Opal 11/04/12 at 1215, Until Discontinued, Routine 1253 (Given - Provider: Tarah De Souza RN) 0930 (Given - Provider: Tarah De Souza RN) 0937 (Given - Provider: Tarah De Souza RN) docusate sodium (COLACE) capsule 100 mg 100 mg, oral, DAILY, First dose on Thu11/05/12 at 0900, Until Discontinued, Routine 1256 (Given - Provider: Tarah De Souza RN - Comment: ordered for liquid coalce this morning, per Chen FRANCO to give capsule) 0930 (Given - Provider: Tarah De Souza RN) 0937 (Given - Provider: Tarah De Souza RN) enoxaparin (LOVENOX) injection 40 mg (CANCELED) 40 mg, subcutaneous, EVERY 24 HOURS, First dose (after last reorder) on Thu11/01/12 at 2100, Until Discontinued, Routine 2104 (Given - Provider: Maura Xiong RN) 2113 (Given - Provider: Tiff Bonilla RN) famotidine (PEPCID) 20 mg/2 mL injection 20 mg (CANCELED)(Linked Group 2) 20 mg, intravenous, EVERY 12 HOURS, First dose on Thu11/01/12 at 2100, Until Discontinued, Routine 0934 (Given - Provider: Tarah De Souza RN)09 (Given - Provider: Tarah De Souza RN)2104 (See Alternative - Provider: Maura Xiong RN) famotidine (PEPCID) tablet 20 mg (CANCELED)(Linked Group 2) 20 mg, per ng tube, EVERY 12 HOURS, First dose on Thu11/01/12 at 2100, Until Discontinued, Routine 0934 (See Alternative - Provider: Tarah De Souza RN)0941 (See Alternative - Provider: Tarah De Souza RN)2104 (Given - Provider: Maura Xiong RN) metoprolol (LOPRESSOR) 2.5 mg in sodium chloride (NS) 0.9 % 50 mL IVPB (CANCELED) 2.5 mg, intravenous, Administer over 20 Minutes, EVERY 6 HOURS, First dose on Thu11/03/12 at 1200, Until Discontinued, Routine 0011 (Given - Provider: Maura Xiong RN)0552 (Given - Provider: Maura Xiong RN) metoprolol (LOPRESSOR) tablet 12.5 mg (CANCELED) 12.5 mg, oral, 2 TIMES DAILY, First dose (after last reorder) on Thu11/04/12 at 1215, Until Discontinued, Routine 1253 (Given - Provider: Tarah De Souza RN)2105 (Given - Provider: Maura Xiong RN) 0929 (Given - Provider: Tarah De Souza RN)2114 (Given - Provider: Tiff Bonilla RN) 0937 (Given - Provider: Tarah De Souza RN) potassium chloride SA (K-DUR, KLOR-CON M20) tablet 40 mEq (COMPLETED) 40 mEq, oral, NOW X1, 1 dose, On Thu11/05/12 at 1215, Routine 1308 (Given - Provider: Tarah De Souza RN) simvastatin (ZOCOR) tablet 40 mg (CANCELED) 40 mg, oral, EVERY EVENING, First dose on Thu11/05/12 at 1700, Until Discontinued, Routine 1735 (Given - Provider: Tarah De Souza RN) sodium chloride 0.9 % flush 3 mL (CANCELED) 3 mL, intravenous, EVERY 8 HOURS, First dose on Thu11/03/12 at 0800, Until Discontinued, Routine 0023 (Given - Provider: Maura Xiong RN)0820 (Given - Provider: Tarah De Souza RN)1630 (Given - Provider: Tarah De Souza RN) 0043 (Given - Provider: Maura Xiong RN)0930 (Given - Provider: Tarah De Souza RN)1704 (Given - Provider: Tarah De Souza RN) 0108 (Not Given - Provider: Tiff Bonilla RN - Reason: Other - Comment: No IV access; aware)0938 (Given - Provider: Tarah De Souza RN) Continuous Medication Order 11/04/2012 11/05/2012 11/06/2012 bupivacaine-fentanyl in NS 0.0625 %-2 mcg/mL 250 mL epidural (CANCELED) epidural, CONTINUOUS, Starting on Thu11/01/12 at 1030, Until Thu11/04/12 at 1136, PCEA Dose: 1 mL LOCKOUT Interval: 10 minutes BASAL Rate: 4 mL/hr ONE HOUR Dose Limit: 10 mL No additional narcotics to be given unless approved by APS, Routine 0932 (Rate Documented - Provider: Tarah De Souza RN)1125 (Completed - Provider: Tarah De Souza RN - Comment: stoppped by APS) PRN Medication Order 11/04/2012 11/05/2012 11/06/2012 HYDROcodone-acetaminophen (LORTAB) 5-500 mg tablet 1 Tab 1 Tablet, oral, EVERY 6 HOURS PRN, Starting on Opal 11/04/12 at 1241, Until 11/06/12 at 1254, Pain, Routine PEG 3350-Electrolytes (MIRALAX) packet 17 g 17 g, oral, DAILY PRN, Starting on Thu11/05/12 at 2214, Until 11/06/12 at 1254, Constipation, Routine senna (SENOKOT) tablet 1 Tab 1 Tablet, oral, AT BEDTIME PRN, Starting on Thu11/05/12 at 2211, Until 11/06/12 at 1254, Constipation, Routine Linked Groups Order Group 1: aspirin suppository 300 mg (CANCELED) 300 mg, rectal, DAILY, First dose (after last reorder) on Thu11/04/12 at 1215, Until Discontinued, Routine Or aspirin chewable tablet 81 mg (CANCELED)Jump to med 81 mg, oral, DAILY, First dose (after last reorder) on Thu11/04/12 at 1215, Until Discontinued, Routine Group 2: famotidine (PEPCID) 20 mg/2 mL injection 20 mg (CANCELED)Jump to med 20 mg, intravenous, EVERY 12 HOURS, First dose on Thu11/01/12 at 2100, Until Discontinued, Routine Or famotidine (PEPCID) tablet 20 mg (CANCELED) 20 mg, oral, EVERY 12 HOURS, First dose on Thu11/01/12 at 2100, Until Discontinued, Routine Or famotidine (PEPCID) tablet 20 mg (CANCELED)Jump to med 20 mg, per ng tube, EVERY 12 HOURS, First dose on Thu11/01/12 at 2100, Until Discontinued, Routine documented in this encounter Orders Medications Ordered That Doroteo ht Not Have Been Administered Count Last Ordered Date First Ordered Date bisacodyl (DULCOLAX) suppository 10 mg 1 PEG 3350-Electrolytes (ALPESH AX) packet 17 g 1 11/05/2012 senna (SENOKOT) tablet 1 Tab 1 11/05/2012 alteplase (CATHFLO ACTIVASE) injection 2 mg 1 11/04/2012 aspirin suppository 300 mg 1 11/04/2012 HYDROcodone-acetaminophen (L ORTAB) 5-500 mg tablet 1 Tab 1 11/04/2012 aspirin chewable tablet 81 mg 1 11/03/2012 dextrose 50 % solution 12.5 g 1 11/02/2012 glucagon (human recombinant) injection 1 mg 1 11/02/2012 insulin aspart (NOVOLOG FLEXPEN) injection 1 11/02/2012 metoprolol (LOPRESSOR) tablet 12.5 mg 1 enoxaparin (LOVENOX) injection 40 mg 1 10/05 naloxone (NARCAN) injection 0.1 mg 1 2012 Lab Orders Without Results Count Last Ordered D ate First Ordered Date POCT BLOOD GAS, G3 I-STAT (BASIC ABG VBG) 1 11/01/2012 Nursing Count Last Ordered Date First Orde red Date REMOVE ARTERIAL LINE 2 11/02/2012 APPLY WARMING BLANKET 1 11/01/2012 INSERT CUELLAR CATHETER 1 11/01/2012 INSERT PERIPHERAL IV 1 11/01/[address] SEQUENTIAL COMPRESSION DEVICE 1 11/01 PT Count Last Ordered Date First Orde red Date PT EVALUATION AND TREAT 1 11/01/2012 Respiratory Care Count Last Ordered Date First Ordered Date INCENTIVE SPIROMETRY RT 6 11/02/201210/05 IV Count Last Ordered Date First Orde red Date IV REQUEST 2 11/04/2012 11/02/2012 REMOVE INTERNAL JUGULAR 1 11/03/2012 REMOVE CORDIS 1 11/02/2012 Admission Count Last Ordered Date First Orde red Date STATUS: INPATIENT DOSA/DOPA DAY OF SURGERY/PROCEDURE ADMISSION 1 11/01/2012 Transfer Count Last Ordered Date First Orde red Date NOTIFY PPS OF DISCHARGE COMPLETE 1 11/07/19 13 PPS NOTIFICATION OF SENDING PATIENT OFF THE UNIT 2 11/02/2012 11/01/2012 TRANSFER PATIENT 2 11/02/2012 PPS NOTIFICATION OF PATIENT ARRIVAL ON UNIT 1 11/01/2012 Discharge Count Last Ordered Date First Orde red Date DISCHARGE PATIENT 1 11/06/2012 documented in this encounter Care Teams Publications Production Supervisor Relationship Specialty Start Date End Date Larisa Moss MD [address] [place] [id number] PCP - General 07/12/10 08/17/13 documented as of this encounter
--- OUTSIDE RECORDS SUMMARY | 2024-02-29 15:48 | XMS_ITS | Encounter Summary ---
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 Procedures CHEST PA AND LATERAL Bridget Vale APRN Referral ID Status Reason Start Date Expiration Date Visits Re quested Visits Authorized [id number] Closed 10/18/2012 1 1 Reason for Visit * Reason Comments Pre-op Exam Aorto bi fem bypass Encounter Details Date Type Department Care Team (Latest Contact Info) Description 10/18/2012 13:30 EDT Office Visit Vascular Surgery and Endovascular Therapy - [address] [id number] Costa oMss MD [address] [place] [phone] Nurse Practitioner, [facility] Atherosclerosis 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 band arteries of the extremities with intermittent claudication [...] Sign Reading Time Taken Comments Blood Pressure 114/74 10/18/2012 1316 EDT Pulse 82 10/18/2012 1316 EDT Temperature - - Respiratory Rate - - Oxygen Saturation - - Inhaled Oxygen Concentration - - Weight 54 kg (119 lb) 10/18/2012 1316 EDT Height 162.6 cm (5' 4) 10/18/2012 1316 EDT Body Mass Index 20.43 10/18/2012 1316 EDT documented in this encounter Ordered Prescriptions Prescription Sig Dispense Quantity Refills Last Filled Start Date End Date aspirin 81 mg EC tablet Take 1 Tab by mouth daily. 30 Tab 0 10/18/2012 simvastatin (ZOCOR) 20 mg tablet Take 2 Tabs by mouth daily. 30 Tab 0 10/18/2012 03/12/2015 metoprolol (LOPRESSOR) 25 mg tablet Take 0.5 Tabs by mouth 2 times daily. 30 Tab 0 10/18/2012 03/12/2015 documented in this encounter Discharge Disposition Disposition Code Departure Means Destination Auto Discharge documented in this encounter H&P Notes * Bridget Vale NP - 10/18/2012 8467 EDT [facility] Vascular Surgery H & P Visit Note Date: 10/18/2012 Patient: Ashley Grayson Subjective: Ashley Grayson is a 52 y.o. female who presents today for pre op evaluation for aortobifemoral bypass for severe claudication. Referred by: COSTA MOSS MD History of Present Illness: Pt [...] Chronic right shoulder pain ??? 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 Submitted by: BRIDGET VALE NP documented in this encounter Procedure Notes * REPACK ROOM WORKER, SCAN 2 - 10/20/2012 1357 EDTAssociated Order(s): ECG REPORT - SCANNED documented in this encounter Miscellaneous Notes * Scanned Note-Null - REPACK ROOM WORKER, SCAN 2 - 10/25/2012 1353 EDT documented in this encounter Plan of Treatment Not on file documented as of this encounter Procedures Procedure Name Priority Date/Time Associated Diagnosis Comments ECG REPORT - SCANNED 10/20/2012 13:57 EDT PRE-OP TYPE AND SCREEN Routine 10/18/2012 14:46 EDT Atherosclerosis 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 band arteries of the extremities with intermittent claudication COMPLETE BLOOD COUNT Routine 10/18/2012 14:46 EDT Atherosclerosis 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 band arteries of the extremities with intermittent claudication BUN Routine 10/18/2012 14:46 EDT Atherosclerosis 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 band arteries of the extremities with intermittent claudication ALT Routine 10/18/2012 14:46 EDT Atherosclerosis 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 band arteries of the extremities with intermittent claudication AST Routine 10/18/2012 14:46 EDT Atherosclerosis 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 band arteries of the extremities with intermittent claudication CREATININE Routine 10/18/2012 14:46 EDT Atherosclerosis 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 band arteries of the extremities with intermittent claudication CHEST PA AND LATERAL Routine 10/18/2012 14:38 EDT Atherosclerosis 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 band arteries of the extremities with intermittent claudication EKG 12-LEAD Routine 10/18/2012 14:13 EDT Atherosclerosis 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 band arteries of the extremities with intermittent claudication documented in this encounter Results * ECG REPORT - SCANNED (10/20/2012 13:57 EDT) 10/20/2012 13:5 7 EDT Narrative 10/20/2012 14:16 EDT Procedure Note REPACK ROOM WORKER, SCAN 2 - 10/20/2012 13:57 EDT us Scan 2 Ce[employer] & Board Director PROCEDURE/MINOR SURGICAL OR DERABLES Final Result * PRE-OP BLOOD BANK DRAW (10/18/2012 14:46 EDT) Pre-Op Blood Bank Lab Draw SPECIMEN RECEIVED ACCEPTABLE [facility] 10/18/2012 14:4 6 EDT 10/18/2012 15:04 EDT us Bridget Vale APRN BLOOD BANK TESTS Final Resul t [facility] [address] [place] [address] * HEMAGRAM (10/18/2012 14:46 EDT) WBC 8.37 4.0 - 12.4 K/cmm [facility] RBC 4.80 3.86 - 5.04 M/cmm [facility] Hemoglobin 14.1 11.6 - 15.2 gm/dl [facility] HCT 42.1 34.9 - 44.4 % [facility] MCV 88 81 - 98 fl [facility] MCH 29.4 26.7 - 33.3 pg [facility] MCHC 33.5 32.1 - 35.9 gm/dl [facility] PLT 271 141 - 320 K/cmm [facility] RDW-CV 13.8 11.7 - 14.6 % [facility] Blood specimen (specimen) 10/18/2012 14:46 EDT 10/18/2012 15:04 EDT Bridget Vale APRN HEMATOLOGY & PF4 ORDERABLES Final Result Performing Organization Address [facility] Co de Phone Number [facility] [address] [place] [address] * CREATININE (10/18/2012 14:46 EDT) Creatinine 0.70 0.52 - 1.04 mg/dl [facility] GFR, Calculated >60 >60 ml/min/1.7 3m2 [facility] Blood specimen (specimen) 10/18/2012 14:46 EDT 10/18/2012 15:04 EDT Bridget Vale APRN CHEMISTRY & BLOOD GAS ORDERA BLES Final Result Performing Organization Address [facility] de Phone Number [facility] [address] [place] [address] * (ABNORMAL) BUN (10/18/2012 14:46 EDT) BUN 4(L) 10 - 26 mg/dl [facility] Blood specimen (specimen) 10/18/2012 14:46 EDT 10/18/2012 15:04 EDT Bridget Vale APRN CHEMISTRY & BLOOD GAS ORDERA BLES Final Result Performing Organization Address [facility] Co de Phone Number [facility] [address] [place] [address] * AST (10/18/2012 14:46 EDT) AST 16 15 - 46 U/L [facility] Blood specimen (specimen) 10/18/2012 14:46 EDT 10/18/2012 15:04 EDT Bridget Vale ART GALLERY DIRECTOR CHEMISTRY & BLOOD GAS ORDERA BLES Final Result Performing Organization Address [facility] Co de Phone Number [facility] [address] [place] [address] * ALT (10/18/2012 14:46 EDT) ALT 20 9 - 52 U/L [facility] Blood specimen (specimen) 10/18/2012 14:46 EDT 10/18/2012 15:04 EDT Bridget Vale APRN CHEMISTRY & BLOOD GAS ORDERA BLES Final Result Performing Organization Address [facility] de Phone Number [facility] [address] [place] [address] * CHEST PA AND LATERAL (10/18/2012 14:38 EDT) Anatomical Region Laterality Modality Other 10/18/2012 14:3 8 EDT 10/18/2012 15:36 EDT Narrative 10/18/2012 15:36 EDT CHEST PA AND LATERAL ??10/18/2012 2:38 PM Signs and Symptoms: ??440.21-Atherosclerosis 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 band arteries of the extremities with intermittent lutwvhdolpsa-BJK-6-CM; 52 y/o woman current tobacco, severe PAD, pre op for aortobifemoral bypass Comparison: None. Findings: Two views of the chest were performed. ??Dual-energy technique was performed with bone and soft tissue reconstructions. The bones, soft tissues and cardiomediastinal contours are normal. Other than linear areas of scarring within the right lower lung, the lungs are clear, and there are no pleural abnormalities. Impression: Unremarkable chest. Procedure Note 10/18/2012 CHEST PA AND LATERAL 10/18/2012 2:38 PM Signs and Symptoms: 440.21-Atherosclerosis 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 band arteries of the extremities with intermittent amstpcompwlx-YGQ-0-CM; 52 y/o woman current tobacco, severe PAD, pre op for aortobifemoral bypass Comparison: None. Findings: Two views of the chest were performed. Dual-energy technique was performed with bone and soft tissue reconstructions. The bones, soft tissues and cardiomediastinal contours are normal. Other than linear areas of scarring within the right lower lung, the lungs are clear, and there are no pleural abnormalities. Impression: Unremarkable chest. us Bridget Vale APRN IMG DIAGNOSTIC IMAGING ORDER MARILIN Final Result * EKG 12-LEAD (10/18/2012 14:13 EDT) 10/18/2012 14:1 3 EDT Narrative [facility] - 10/19/2012 13:26 EDT ?[facility] ? Test Date: ?2012-10-18 Pat Name: ? ASHLEY GRAYSON [facility] ? [facility]: ? Gender: ? F ?Machine Setter Automatic: ?? [id number] : ?1960 ? Requested By: BRIDGET VALE COMMERCIAL ILLUSTRATOR Order Number: [id number] ? Reading : ?? AZAR WRIGHT MD ? Measurements Intervals ?[place] ? Rate: ? 81 ? P: ?3 IN: ? 135 ?QRS: ?227 QRSD: ? 96 ? T: ?52 QT: ? 394 ? QTc: ?431 ? Interpretive Statements SINUS RHYTHM INDETERMINATE AXIS PATTERN CONSISTENT WITH PULMONARY DISEASE INCOMPLETE RIGHT BUNDLE BRANCH BLOCK POSSIBLE RIGHT VENTRICULAR HYPERTROPHY No previous ECG available for comparison Electronically Signed On 10-19-12 13:26:38 EDT by AZAR WRIGHT MD Procedure Note Azar Wright MD - 10/19/2012 [facility] Test Date: 2012-10-18 Pat Name: ASHLEY GRAYSON Department: [address] Room: Gender: F Machine Setter Automatic: [id number] : 1960 Requested By: BRIDGET VALE NP Order Number: [id number] Reading MD: AZAR WRIGHT MD Measurements Intervals [place] Rate: 81 P: 3 IN: 135 QRS: 227 QRSD: 96 T: 52 QT: 394 QTc: 431 Interpretive Statements SINUS RHYTHM INDETERMINATE AXIS PATTERN CONSISTENT WITH PULMONARY DISEASE INCOMPLETE RIGHT BUNDLE BRANCH BLOCK POSSIBLE RIGHT VENTRICULAR HYPERTROPHY No previous ECG available for comparison Electronically Signed On 10-19-12 13:26:38 EDT by AZAR WRIGHT MD us Bridget Vale PARAM CARDIAC ECG ORDERABLES Final Result [facility] [address] [place] [address] documented in this encounter Visit Diagnoses Diagnosis 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
--- OUTSIDE RECORDS SUMMARY | 2024-02-29 15:48 | XMS_ITS | Encounter Summary ---
Author Organization [facility] Address [address] [place] [address] Care Team Providers Care Fur Dresser Name Role Phone Larisa Kinsey MD Primary Care Provider [phone] Reason for Visit * Reason Comments Shoulder Pain right Encounter Details Date Type Department Care Team (Late st Contact Info) Description 04/28/2012 14:00 EST Office Visit [facility] Hand & Upper Extremity Program [place] [address] Andreas Camp MD [address] [place] [phone] Brachial plexus disorders (Primary Dx) Discharge Disposition: Auto Discharge Social [...] - - Weight 48.5 kg (107 lb) 04/28/2012 1407 EST Height 160 cm (5' 3) 04/28/2012 1407 EST Body Mass Index 18.95 04/28/2012 1407 EST documented in this encounter Discharge Disposition Disposition Code Departure Means Destination Auto Discharge documented in this encounter Progress Notes * Andreas Camp MD - 04/28/2012 1444 EST This office note has been dictated. documented in this encounter Procedure Notes * Andreas Camp MD - 04/29/2012 0348 EST ORTHOPAEDICS AND REHABILITATION SERVICES ELECTRODIAGNOSTIC MEDICINE CONSULTATION SERVICE DATE: 04/28/2012 ATTENDING PHYSICIAN: Andreas Camp MD REQUESTING PHYSICIAN: Brando Katz MD HISTORY: The patient is a 51-year-old female who is being seen at the request of Alfred Katz. His comprehensive initial evaluation from 04/27/12 is reviewed. The patient has a complicated history. Shenoticed in August of 2010 pain in her right shoulder area and began to have some numbness at times outinto her right hand. She noted some swelling in the shoulder joint, swelling near the AC joint and h as undergone two operations of the shoulder including a distal clavicle excision elsewhere. She had2 surgeries that were done by Dr Burton and has then asked for a second opinion here in our [facility]. Apparently she did have electrodiagnostics done elsewhere as well. I do not have that report, but the patient, who is an excellent historian, states that she was told there were no n eurologic problems. For past medical history, problem list and medication list, I refer to the [facility] intake. She is an active smoker. REVIEW OF SYSTEMS: Please see intake format. This is reviewed with the patient and signed. OBJECTIVE: She is 5 feet 4 inches, 117 pounds, quite thin, but she is pleasant, makes excellent eyecontact and is oriented x3. Her cranial nerves are intact. Visual inspection shows some pigment changes throughout her shoulders and back. There are two surgical scars about the right shoulder and the distal clavicle shows tissue defect, just proximal to that in the subclavicular and more so in the supraclavicular area there is firmness and slightly tenderprotrusion. She has a profoundly positive Adson and Troy maneuver for both the vascular change and neurologicsensory changes. There is clear weakness of her ulnar hand intrinsics and finger extension to a certain extent. Thumb abduction seems fairly strong. No real atrophy is noted in the musculature. The biceps, triceps, and brachioradialis reflexes are symmetric. The scapula does not wing. I do not see any parascapular atrophy, and the patient is quite thin, itwould be easy to determine that. In order to investigate the status of her proximal and peripheral nerves, the plan is to perform electrodiagnostics. NERVE CONDUCTION STUDY: Nerve Distal Latency Evoked Nerve Conduction Comments (NI<3.6) Response Velocity Amplitude R Ulnar Motor 3.5 msec 8.3 mV 60 m/sec no change across elbow R Ulnar F wave unobtainable R Radial Sensory 2.4 28 mcV R Median Sensory 3.0 48 mcV R Median Motor 4.0 3.5 mV F wave 29.0 arm adducted F wave disappears with arm abduction R Ulnar Sensory 3.0 31 mcV EMG REPORT: A monopolar exploring electrode was used with standard technique. Muscles examined included the cervical paraspinals, supraspinatus, infraspinatus, rhomboid, deltoid, biceps, triceps, brachioradialis, pronator teres, flexor carpi ulnaris, extensor indices proprius, extensor pollicis brev is, abductor pollicis brevis, opponens pollicis, first dorsal interosseous, abductor digiti quinti. FINDINGS: There was 1+ increased insertional activity seen in the first dorsal interosseous, abductor digiti quinti with 1+ ongoing positive sharp wave and fibrillation potentials extending into the resting phase. All other muscles tested normally. IMPRESSION: This is an abnormal study. 1. There is a moderate right lower brachial plexus injury and compression. I am not certain as to the cause of the axonal damage present. Essentially she meets criteria easily for thoracic outlet syndrome and based on her physical examination, there does seem to be some tissue inflammation, enlargement or mass effect in the thoracic outlet area. After the testing was completed, I had a lengthy discussion with the patient regarding the testing,the anatomy, and some of the challenges of treatment. All of her questions were answered. Electronically Signed by Andreas Camp MD 04/29/2012 15:21 Andreas Camp MD - Andreas Camp MD A - RF Job ID: SM Doc ID: [id number] Ext Doc ID: [id number] cc: documented in this encounter Plan of Treatment Not on file documented as of this encounter Visit Diagnoses Diagnosis Brachial plexus disorders- Primary Brachial plexus lesions documented in this encounter Care Teams Fur Dresser Relationship Specialty Start Date End Date Larisa Kinsey MD [address] [facility] [place] [phone] PCP - General 07/12/10 08/17/13 documented as of this encounter
--- OUTSIDE RECORDS SUMMARY | 2024-02-29 15:48 | XMS_ITS | Encounter Summary ---
Author Organization [facility] Address [address] [place] [address] Care Team Providers Care Space Scheduler Name Role Phone Larisa Kinsey MD Primary Care Provider [phone] Encounter Details Date Type Department Care Team (Late st Contact Info) Description 10/18/2012 Phlebotomy Only [address] [address] Clinical Reviewer, Outpatient Social History Tobacco Use Types Packs/Day Years [...] on filedocumented in this encounter Care Teams Space Scheduler Relationship Specialty Start Date End Date Larisa Kinsey MD [address] [place] [phone] PCP - General 07/12/10 08/17/13 documented as of this encounter
--- OUTSIDE RECORDS SUMMARY | 2024-02-29 15:48 | XMS_ITS | Encounter Summary ---
Author Organization [facility] Address [address] [place] [address] Care Team Providers Care Extraction Machine Operator Name Role Phone Larisa Kinsey MD Primary Care Provider [phone] Reason for Visit * Reason Comments Shoulder Pain Right shoulder pain and numbess Encounter Details Date Type Department Care Team (Late st Contact Info) Description 08/10/2012 10:30 EDT Office Visit Vascular Surgery and Endovascular Therapy - [address] [id number] Tony Garza MD [address] [place] [address], [address] [place] [address] Chronic right shoulder pain (Primary Dx) Discharge [...] Sign Reading Time Taken Comments Blood Pressure 110/78 08/10/2012 1005 EDT left a rm Pulse - - Temperature - - Respiratory Rate - - Oxygen Saturation - - Inhaled Oxygen Concentration - - Weight 54.4 kg (120 lb) 08/10/2012 1003 EDT Height 162.6 cm (5' 4) 08/10/2012 1003 EDT Body Mass Index 20.6 08/10/2012 1003 EDT documented in this encounter Discharge Disposition Disposition Code Departure Means Destination Auto Discharge documented in this encounter Progress Notes * Tony Garza MD - 08/10/2012 1635 EDT This office note has been dictated. documented in this encounter Consult Notes * Tony Garza MD - 08/14/2012 2356 EDT DIVISION OF VASCULAR SURGERY CONSULTATION - 08/10/2012 Brando Katz MD [facility] [address] [place], [place] [id number] Dear Alfred: Thank you for consulting us in regard to Ms Kee's question of a right-sided thoracic outlet syndrome. As you know, she is a 51-year-old right-handed woman who has had chronic right shoulder and armpain with numbness mostly in the 3rd, 4th and 5th finger. This pain is significantly affecting her daily activity to the point she has a hard time doing most things above her head and sleeping. She has had several surgeries on her AC joint or clavicle, apparently because of swelling and tumor, whatshe called, but apparently that has all been benign. Her symptoms have not changed. She has had a fairly extensive workup, which include both plain films and MRs that have not shown any significant abnormality. She also had an EMG done because of her numbness and that showed some lower brachial plexus injury or compression and the question was if that was because of a thoracic outlet syndrome. Because of that, she is here for an evaluation. Past medical history is significant for her arm pain. Surgical History: Hysterectomy, cholecystectomy, appendectomy and shoulder surgery. Otherwise, past medical history, review of system is as detailed in new patient intake sheet and scanned into her records. She does smoke about 4 to 5 cigarettes a day and does so for about 20 years. There is a family history of coronary disease. She describes intolerance or allergy against IBUPROFEN, MORPHINE and PERCOCET. On exam, she is certainly in no acute distress. Her right arm blood pressure 122/72, left 110/78, normal weight, BMI of 20. She does have a slight asymmetry between the right and the left with a slight bulginess or fullness in the right supraclavicular fossa. She does have significant tenderness over the anterior scalenus muscle. No infraclavicular discomfort, mild tenderness over the shoulder joint itself and the lower cervical spine. Her gross neurological exam was normal. She had a positive upper limb tension test with some discomfort and numbness into her fingers. Her Peyman test was similar, but did not make things any worse. Her Adson test was negative. Tinel and ulnar tap was negative.We did do a cervical film on her, which showed some mild degenerative disease, but nothing significant. No cervical ribs. Assessment: Certainly her symptoms and EMG could be consistent with neurogenic thoracic outlet syndrome. She has done intermittent some physical therapy, but not lately. I explained to her the difficulties with making this diagnosis and the fact that a majority of patients will get better with physical therapy alone. I did explain the surgical option, which includes a transaxillary first rib resection but I think we should go with the physical therapy first and potentially a pain consultation with scalenus block before getting to that point. She is also interesting in seeing you again to havea followup in regard to her shoulder, and I will make that appointment. We will try this for about 3 months and I will see her again for followup. Sincerely, Electronically Signed by Tony Garza MD 08/20/2012 10:40 Tony Garza MD - Tony Garza MD - MS Job ID: SM Doc ID: [id number] Ext Doc ID: [id number] cc: MD Larisa Franklin MD documented in this encounter Miscellaneous Notes * Scanned Note-Null - PROFESSOR OF KINESIOLOGY, SCAN 2 - 08/14/2012 0343 EDT documented in this encounter Plan of Treatment Not on file documented as of this encounter Visit Diagnoses Diagnosis Chronic right shoulder pain- Primary Pain in joint, shoulder region documented in this encounter Care Teams Extraction Machine Operator Relationship Specialty Start Date End Date Larisa Kinsey MD [address] [place] [phone] PCP - General 07/12/10 08/17/13 documented as of this encounter
--- OUTSIDE RECORDS SUMMARY | 2024-02-29 15:48 | XMS_ITS | Encounter Summary ---
Author Organization Health system Address [address] [place] [address] Care Team Providers Care Underwear Welter Name Role Phone Larisa Kinsey MD Primary Care Provider [phone] Encounter Details Date Type Department Care Team (Late st Contact Info) Description 10/18/2012 Results Only [facility] Laboratory Services - [facility] ([facility] [address] [place] [id number] Unknown, Provider, Social History Tobacco Use Types Packs/Day Years [...] Name Type Priority Associated Diagnoses Date /Time PREPARE RED BLOOD CELLS Blood Bank Routine 0 10/18/2012 15:11 EDT PREPARE RED BLOOD CELLS Blood Bank Routine 0 10/18/2012 15:11 EDT documented as of this encounter Procedures Procedure Name Priority Date/Time Associated Diagnosis Comments TYPE AND SCREEN Routine 10/18/2012 15:11 EDT documented in this encounter Results * TYPE AND SCREEN (10/18/2012 15:11 EDT) ABO B [facility] Rh Factor Negative [facility] Antibody Screen Negative [facility] Comment:SPECIMEN EXPIRES 11/04 AT 23:59 10/18/2012 15:1 1 EDT us Provider Unknown MD BLOOD BANK TESTS Final Resul t [facility] [address] [place] [address] documented in this encounter Visit Diagnoses Not on filedocumented in this encounter Care Teams Underwear Welter Relationship Specialty Start Date End Date Larisa Kinsey MD [address] [place] [phone] PCP - General 07/12/10 08/17/13 documented as of this encounter
--- OUTSIDE RECORDS SUMMARY | 2024-02-29 15:48 | XMS_ITS | Encounter Summary ---
Author Organization [facility] Address [address] [place] [address] Care Team Providers Care Break And Load Operator Name Role Phone Larisa Kinsey MD Primary Care Provider [phone] Reason for Referral * Radiology Services (Routine/Next Available) - Closed Specialty Diagnoses / Procedures Referred By Contac t Referred To Contact Diagnoses Brachial plexus lesions Procedures CERVICAL SPINE 4 OR MORE VIEWS Tony Garza MD Phone: tel: fax: Referral ID Status Reason Start Date Expiration Date Visits Re quested Visits Authorized [id number] Closed 06/08/2012 1 1 Encounter Details Date Type Department Care Team (Late st Contact Info) Description 06/08/2012 Orders Only Vascular Surgery and Endovascular Therapy - [address] [id number] Tony Garza MD [address] [place] [address], Level [address] [place] [phone] Brachial plexus lesions (Primary Dx) Social History Tobacco Use Types [...] Procedure Name Priority Date/Time Associated Diagnosis Comments CERVICAL SPINE 4 OR MORE VIEWS Routine 08/10/2012 9:49 EDT Brachial plexus lesions documented in this encounter Results * CERVICAL SPINE 4 OR MORE VIEWS (08/10/2012 9:49 EDT) Anatomical Region Laterality Modality Other 08/10/2012 9:49 EDT 08/10/2012 11:23 EDT Narrative 08/10/2012 11:23 EDT CERVICAL SPINE SERIES August 10, 2012 Indication: Questioning thoracic outlet syndrome. Comparison: Cervical spine MRI from [facility] on July 30, 2011. Technique: Open-mouth odontoid, AP, lateral and right and left posterior oblique views of the cervical spine were obtained. Findings: There are no cervical ribs identified. Craniocervical and atlantoaxial alignment appear anatomic. Less than 2 mm of retrolisthesis of C5 on C6 and less than 2 mm of anterolisthesis of C7 on T1 is noted. Vertebral body heights are preserved. There is disc space narrowing, anterior marginal osteophyte formation and uncovertebral spurring consistent with degenerative disc disease at C4-C5, C5-C6 and C6-C7. There is mild multilevel facet degeneration. There is mild left neuroforaminal stenosis at C3-C4 due to uncinate spurring. Mild right and moderate left neuroforaminal stenosis at C4-C5, mild right and severe left neuroforaminal stenosis at C5-C6 and mild bilateral neuroforaminal stenosis at C6-C7 due to uncovertebral spurring. Procedure Note 08/10/2012 CERVICAL SPINE SERIES August 10, 2012 Indication: Questioning thoracic outlet syndrome. Comparison: Cervical spine MRI from [facility] on July 30, 2011. Technique: Open-mouth odontoid, AP, lateral and right and left posterior oblique views of the cervical spine were obtained. Findings: There are no cervical ribs identified. Craniocervical and atlantoaxial alignment appear anatomic. Less than 2 mm of retrolisthesis of C5 on C6 and less than 2 mm of anterolisthesis of C7 on T1 is noted. Vertebral body heights are preserved. There is disc space narrowing, anterior marginal osteophyte formation and uncovertebral spurring consistent with degenerative disc disease at C4-C5, C5-C6 and C6-C7. There is mild multilevel facet degeneration. There is mild left neuroforaminal stenosis at C3-C4 due to uncinate spurring. Mild right and moderate left neuroforaminal stenosis at C4-C5, mild right and severe left neuroforaminal stenosis at C5-C6 and mild bilateral neuroforaminal stenosis at C6-C7 due to uncovertebral spurring. us Tony Garza MD IMG DIAGNOSTIC IMAGING OR DERABLES Final Result documented in this encounter Visit Diagnoses Diagnosis Brachial plexus lesions- Primary documented in this encounter Care Teams Break And Load Operator Relationship Specialty Start Date End Date Larisa Kinsey MD [address] [facility] [phone] PCP - General 07/12/10 08/17/13 documented as of this encounter
--- OUTSIDE RECORDS SUMMARY | 2024-02-29 15:48 | XMS_ITS | Encounter Summary ---
Author Organization [facility] Address [address] [place] [address] Care Team Providers Care Home Service Advisor Name Role Phone Larisa Kinsey MD Primary Care Provider [phone] Reason for Visit * Reason Comments Post-OP Follow Up Second post op s/p a ortobiemoral bypass for claudication Encounter Details Date Type Department Care Team (Late st Contact Info) Description 12/23/2012 13:00 EDT Office Visit Vascular Surgery and Endovascular Therapy - [address] [phone] Tony Garza MD [address] [place] [address], [address] [place] [phone] S/P aorto-bifemoral bypass surgery (Primary Dx) Discharge Disposition: Auto Discharge Social [...] Sign Reading Time Taken Comments Blood Pressure 118/78 12/23/2012 1301 EDT Pulse - - Temperature - - [...] Progress Notes * Tony Garza MD - 12/24/2012 0926 EDT DIVISION OF VASCULAR SURGERY PROGRESS / FOLLOWUP NOTE - 12/23/2012 SUBJECTIVE: Ms Kee is here for a postop followup after her aortobifemoral bypass. She is doing very well. Her appetite is now back to normal. She is walking without any pain, and in general feels quite good. OBJECTIVE: On exam today blood pressure 118/78. She has well-healed both abdominal and groin incisions. No evidence of hernias. Good palpable femoral pulses and strong pedal pulses as well. ASSESSMENT AND PLAN: Overall, I am pleased with her recovery. She will continue to exercise as we suggested. She has stopped smoking now for about 2 months. She will stay on her current medications and we will see her back in 1 year for followup. Tony Garza MD 02 00 PM - Tony Garza MD cn Dictation ID: [id number] * Tony Garza MD - 12/23/2012 1401 EDT This office note has been dictated. documented in this encounter Plan of Treatment Not on file documented as of this encounter Visit Diagnoses Diagnosis S/P aorto-bifemoral bypass surgery- Primary Other postprocedural status documented in this encounter Care Teams Home Service Advisor Relationship Specialty Start Date End Date Larisa Kinsey MD [address] [place] [phone] PCP - General 07/12/10 08/17/13 documented as of this encounter
--- OUTSIDE RECORDS SUMMARY | 2024-02-29 15:48 | XMS_ITS | Encounter Summary ---
Author Organization [facility] Address [address] [place] [address] Care Team Providers Care Assistant Director Of Public Works Name Role Phone Luis FAndreas castro Primary Care Provider [phone] Encounter Details Date Type Department Care Team (Late st Contact Info) Description 07/09/2010 Results Only Imaging [facility] [phone] Larisa Kinsey MD [address] [place] [phone] Social History Tobacco Use Types Packs/Day Years [...] Name Priority Date/Time Associated Diagnosis Comments VL MESENTERIC ARTERY DUPLEX 07/15/2010 9:25 EDT documented in this encounter Results * VL MESENTERIC ARTERY DUPLEX (07/15/2010 9:25 EDT) Anatomical Region Laterality Modality Other 07/15/2010 9:25 EDT 07/15/2010 9:59 EDT Narrative 07/15/2010 9:59 EDT MESENTERIC ARTERY DUPLEX ULTRASOUND PROCEDURE: ??The celiac, superior mesenteric, splenic, hepatic, and inferior mesenteric arteries are routinely evaluated using 2D, color flow and spectral Dopper. [id number]. ? INDICATION: Abdominal pain. ? HISTORY: ?Cholecystectomy, 25lb unintentional weight loss past year. ? PULSE WAVE DOPPLER FINDINGS Aorta Prox:Sys: ?? 65 cm/sec Harika: ?? 17 cm/sec ? SMA Prox: ??Sys: ??131 cm/sec Harika: ?? 16 cm/sec ? SMA Mid: ?? Sys: ??121 cm/sec Harika: ?? 20 cm/sec ? SMA Dist: ??Sys: ?? 87 cm/sec Harika: ?? 10 cm/sec ? Celiac: ?Sys: ??159 cm/sec Harika: ?? 50 cm/sec ? Splenic: ?? Sys: ??161 cm/sec Harika: ?? 41 cm/sec ? Hepatic: ?? Sys: ??148 cm/sec Harika: ?? 42 cm/sec ? CURTIS Prox: ??Sys: ??121 cm/sec Harika: ?? 16 cm/sec ? Maximum Aortic Diameter: ??2.40 cm IMPRESSION All velocities were within the normal range. Procedure Note 07/15/2010 MESENTERIC ARTERY DUPLEX ULTRASOUND PROCEDURE: The celiac, superior mesenteric, splenic, hepatic, and inferior mesenteric arteries are routinely evaluated using 2D, color flow and spectral Dopper. 10152. INDICATION: Abdominal pain. HISTORY: Cholecystectomy, 25lb unintentional weight loss past year. PULSE WAVE DOPPLER FINDINGS Aorta Prox:Sys: 65 cm/sec Harika: 17 cm/sec SMA Prox: Sys: 131 cm/sec Harika: 16 cm/sec SMA Mid: Sys: 121 cm/sec Harika: 20 cm/sec SMA Dist: Sys: 87 cm/sec Harika: 10 cm/sec Celiac: Sys: 159 cm/sec Harika: 50 cm/sec Splenic: Sys: 161 cm/sec Harika: 41 cm/sec Hepatic: Sys: 148 cm/sec Harika: 42 cm/sec CURTIS Prox: Sys: 121 cm/sec Harika: 16 cm/sec Maximum Aortic Diameter: 2.40 cm IMPRESSION All velocities were within the normal range. us Larisa Kinsey MD IMG US VASCULAR ORDERABLES Fin al Result documented in this encounter Visit Diagnoses Not on filedocumented in this encounter Care Teams Assistant Director Of Public Works Relationship Specialty Start Date End Date Andreas Kerns DO [address] [place] [address] PCP - General 09/29/08 07/11/10 documented as of this encounter
--- OUTSIDE RECORDS SUMMARY | 2024-02-29 15:48 | XMS_ITS | Encounter Summary ---
Author Organization [facility] Address [address] [place] [address] Care Team Providers Care Bottoming Room Supervisor Name Role Phone Larisa Kinsey MD Primary Care Provider [phone] Encounter Details Date Type Department Care Team (Late st Contact Info) Description 10/29/2012 Results Only [facility] Laboratory Services - [facility]) [address] [place] [address] Unknown, Provider, Social History Tobacco Use [...] Procedure Name Priority Date/Time Associated Diagnosis Comments PREPARE RED BLOOD CELLS Routine 10/29/2012 8:47 EDT PREPARE RED BLOOD CELLS Routine 10/29/2012 8:47 EDT documented in this encounter Results * PREPARE RED BLOOD CELLS (10/29/2012 8:47 EDT) Product Code E0382 -3 RED BLOOD CELLS, Leukocytes Reduced [facility] Donor Number [id number] [facility] Unit ABO B [facility] Unit Rh NEG [facility] Cross Match Interp Compatible [facility] Unit Status Released From [employer] [facility] 10/29/2012 8:47 EDT us Provider Unknown BLOOD BANK ORDERABLES Final Result Performing Organization Address [facility] Co de Phone Number [facility] [address] [place] [address] * PREPARE RED BLOOD CELLS (10/29/2012 8:47 EDT) [facility] Product Code E0382 -3 RED BLOOD CELLS, Leukocytes Reduced [facility] Donor Number [id number] [facility] Unit ABO B [facility] Unit Rh NEG [facility] Cross Match Interp Compatible [facility] Unit Status Released From [email or web address] [facility] 10/29/2012 8:47 EDT Provider Unknown BLOOD BANK ORDERABLES Final Result Performing Organization Address [facility] de Phone Number [facility] [address] [place] [address] documented in this encounter Visit Diagnoses Not on filedocumented in this encounter Care Teams Bottoming Room Supervisor Relationship Specialty Start Date End Date Larisa Kinsey MD [address] [place] [address] PCP - General 07/12/10 08/17/13 documented as of this encounter
--- OUTSIDE RECORDS SUMMARY | 2024-02-29 15:49 | XMS_ITS | Encounter Summary ---
[place] [address] Care Team Providers Care Mechanic Recovery Name Role Phone Estrella Mckay APRN Primary Care Provider [phone] Encounter Details Date Type Department Care Team (Late st Contact Info) Description 02/25/2024 Telephone [place] [phone] Raiza Serrano RN Social History Tobacco Use Types Packs/Day Years Used Date Smoking Tobacco: Former Cigarettes 1 30 Q uit: 2013 Smokeless Tobacco: Never Comments:3/4TH PK A DAY Alcohol Use Standard Drinks/Week Comments No 0 (1 standard drink = 0.6 oz pur e alcohol) [facility] Utilities Answer Date Recorded In the past 12 months has th e electric, gas, oil, or water company threatened to shut off services in your home? No 02/17/2024 Hunger Vital Sign Answer Date Recorded Within the past 12 months, y ou worried that your food would run out before you got the money to buy more. Never true 02/17/20 24 Within the past 12 months, t he food you bought just didn't last and you didn't have money to get more. Never true 02/17/2024 PRAPARE - Transportation Answer Date Re corded In the past 12 months, has l ack of transportation kept you from medical appointments or from getting medications? No 02/04 In the past 12 months, has l ack of transportation kept you from meetings, work, or from getting things needed for daily living? No 02/17/2024 Housing Stability Vital Sign Answer [place] e Recorded In the last 12 months, was t here a time when you were not able to pay the mortgage or rent on time? No 02/17/2024 In the past 12 months, how m any times have you moved where you were living? 0 02/17/2024 At any time in the past 12 m [facility], were you homeless or living in a residential (including now)? No 02/17/2024 IPV Inpatient Questions Answer Date Recorded Does Anyone Try to Keep You From Having Contact with Others or Doing Things Outside Your Home? no 02/16/2024 Feels Threatened by Someone no 02/04 Feels Unsafe at Home or Work/School no 02/16/2024 Physical Signs of Abuse Present no 02/16/2024 Sex and Gender Information Value Date Recorded Sex Assigned at Not on file Gender Identity Not on file Sexual Orientation Not on file documented as of this encounter Miscellaneous Notes * Telephone Encounter - Raiza Serrano RN - 02/25/2024 9:49 AM EST Incoming call from Ashley Mcdaniels's daughter asking about the FMLA and disability paperwork. Enedelia was advised that the outpatient clinic has not received any paperwork for her mother. Enedelia verbalized concern as the paperwork was reportedly handed to Dr. Raymond. Enedelia was advised that Dr. Raymond was away this week, but the clinic will check with him when hereturns. Enedelia verbalized she will check back on Thursday. NEYDA Caifuel house attendant [facility] documented in this encounter Plan of Treatment Upcoming Encounters Date Type Department Care Team (Late st Contact Info) Description 03/02/2024 8:30 AM EST Office Visit [place] [phone] Sarah Bah, SENIOR UX DESIGNER [facility] [place] [address] 03/04/2024 7:00 AM EST Appointment Mammography/[place] [address] Edmund Truong MD [facility] DR HEMATOLOGY [place] [address] 03/07/2024 10:45 AM EST Laboratory Appointment Lab at [facility] Hematology Oncology [address] [place] [address] 03/07/2024 11:30 AM EST Office Visit Hematology and Oncology at [place] [address] Bennett Turner, RN 03/07/2024 11:30 AM EST Office Visit Hematology and Oncology at [place] [address] Edmund Truong MD [facility] DR HEMATOLOGY [place] [address] 03/10/2024 8:15 AM EST Laboratory Appointment Lab at [facility] [place]ematology Oncology [address] [place], [place] [phone] 03/10/2024 8:30 AM EST Scheduled View Only Hematology and Oncology at [place] [address] 03/10/2024 9:00 AM EST Office Visit Hematology and Oncology at [place] [address] Omid Degroot MD [facility] [place] [address] 03/10/2024 9:00 AM EST Office Visit Hematology and Oncology at [place] [address] Bennett Turner, RN 03/25/2024 9:30 AM EST Tech Visit Vascular Lab at [address] Carlton Higgins, RVT 03/25/2024 10:15 AM EST Office Visit [place] [address] Tomy Raymond MD [facility] [place] [address] documented as of this encounter Visit Diagnoses Not on filedocumented in this encounter Care Teams Mechanic Recovery Relationship Specialty Start Date End Date Estrella Mckay, SENIOR UX DESIGNER [facility] ADRIANA MUNOZ [facility] [place] [address] PCP - General Family Medicine 12/14/23 documented as of this encounter
--- OUTSIDE RECORDS SUMMARY | 2024-02-29 15:49 | XMS_ITS | Encounter Summary ---
Author Organization [facility] Address [address] [place] [address] Care Team Providers Care Physical Testing Supervisor Name Role Phone Luis F, Andreas Tran Primary Care Provider [phone] Encounter Details Date Type Department Care Team (Late st Contact Info) Description 08/18/2007 Results Only [facility] [address] [place] [address] Roldan Anderson MD [address] [place] [address] Social History Tobacco Use Types Packs/Day Years [...] Date/Time Associated Diagnosis Comments SURGICAL PATHOLOGY Routine 08/18/2007 0:00 EDT documented in this encounter Results * SURGICAL PATHOLOGY (08/18/2007 0:00 EDT) Pathology Report: SURGICAL PATHOLOGY REPORT Reports generated via electronic interface contain original data; however they are lacking the format of the original report. Caution should be taken when reading/interpreti ng unformatted reports. Name: ? JT GRAYSON ? Accession #: ? [id number] ? : ? 1960 (Age: 47) ??F ? Collect Date: ? 08/18/2007 ? Location: ? [facility] ? Receive Date: ? 08/19/2007 ? Provider: ROLDAN ANDERSON MD Copy to: ANDREAS JAY DO ? Final Pathologic Diagnosis: A. ?Colon, cecum, polyp, biopsy: 1. ?Colonic mucosa with prominent lymphoid aggregate and focal lymphangiectasia. 2. ? Melanosis coli. B. ?Colon, biopsy: 1. ?Colonic mucosa with Melanosis coli. ??See comment. C. ?Colon, hepatic flexure, polyp, biopsy: 1. ?Tubular adenoma. 2. ? No high grade dysplasia or carcinoma identified. D. ?Colon, transverse, distal, polyp, biopsy: 1. ?Tubulovillous adenoma. 2. ? No high grade dysplasia or carcinoma identified. Comment: ? Deeper sections have been examined. (Dr. Gallegos). Document reviewed and electronically signed by: DEE DEE GALLEGOS MD Report ??Date: 08/20/2007 15:30 By the signature above, the attending physician certifies that he/she has personally conducted a gross and/or microscopic examination of the described specimens and rendered or confirmed the above diagnosis. Specimen(s) Received: A. ?Polypoid cecal lesion, 15 mm B. ? Submucosal nodule, 10 mm C. ? Hepatic flexure polyp D. ? Polyp distal transverse colon Clinical History: ? Change in bowel habits Gross Description: ? Received in Hollande's fixative labelled [place] and polypoid cecal lesion, 15 mm are two najera-pink polypoid portions of soft tissue averaging 0.3 x 0.2 x 0.1 cm. ??The specimens are submitted in toto as (A). Received in Hollande's fixative labelled [place] and submucosal nodule, 10 mm is a 0.2 x 0.2 x 0.1 cm najera-pink portion of soft tissue. ??The specimen is submitted intact as (B). Received in Hollande's fixative labelled [place]ilango and hepatic flexure polyp is a 0.3 x 0.2 x 0.1 cm najera-pink polypoid portion of soft tissue. ??The specimen is submitted intact as (C). Received in Hollande's fixative labelled [place]ilango and polyp distal transverse colon is a 1.7 x 1.1 x 0.6 cm curled najera-pink finely lobulated polyp. ??Also received in the same container is a 0.1 x 0.1 x 0.1 cm najera-pink polypoid portion of soft tissue. ??The polyp is sectioned and entirely submitted as (D1) and the polypoid soft tissue is submitted intact as (D2). ??(Beverly Umana)/lula End of Report [facility] 08/18/2007 08/19/2007 9:2 5 EDT us Roldan Anderson MD PATHOLOGY ORDERABLES Final Resul t Performing Organization Address City/State/[facility] Co de Phone Number [facility] [address] [place] [address] documented in this encounter Visit Diagnoses Not on filedocumented in this encounter Care Teams Physical Testing Supervisor Relationship Specialty Start Date End Date Andreas Jay DO [address] [place] [address] PCP - General 09/29/08 07/11/10 documented as of this encounter
--- OUTSIDE RECORDS SUMMARY | 2024-02-29 15:49 | XMS_ITS | Encounter Summary ---
Author Organization [facility] Address [address] [place] [address] Care Team Providers Care Lye Boiler Name Role Phone Unavailable Primary Care Provider Unavailabl e Encounter Details Date Type Department Care Team (Late st Contact Info) Description 09/22/2007 10:03 EDT Hospital Encounter [facility] [address] [place] [address] Yuniel Darling MD [address] [address] Hugo Anderson MD [address] [place], [place] [phone] Social History Tobacco Use Types Packs/Day Years Used Date Smoking Tobacco: Former Cigarettes 0.2 20 0 10/30/1992 - 10/30/2012 Comments:quit date was [facility] r 2012 Alcohol Use Standard Drinks/Week Comments [...]
--- OUTSIDE RECORDS SUMMARY | 2024-02-29 15:49 | XMS_ITS | Encounter Summary ---
[place] [address] Care Team Providers Care Repairer Helper Name Role Phone Estrella Mckay APRN Primary Care Provider [phone] Encounter Details Date Type Department Care Team (Late st Contact Info) Description 02/29/2024 Notes Only Hematology [place] [phone] Bennett Turner, RN Social History Tobacco Use Types Packs/Day Years Used Date Smoking Tobacco: Former Cigarettes 1 30 Q uit: 2012 Smokeless Tobacco: Never Comments:3/4TH PK A DAY Alcohol Use Standard Drinks/Week Comments No 0 (1 standard drink = 0.6 oz pur e alcohol) [facility] Utilities Answer Date Recorded In the [...] any time in the past 12 m onths, were you homeless or living in a assisted (including now)? No 02/17/2024 [facility] IPV Inpatient Questions Answer Date Recorded Does [...] as of this encounter Progress Notes * Bennett Turner RN - 02/29/2024 12:35 PM EST RESEARCH NURSE TELEPHONE NOTE [id number]: (SUMMIT) A MULTI-PART, RANDOMIZED, DOUBLE-BLIND, PLACEBO-CONTROLLED PHASE 2 CLINICAL STUDY OF THE SAFETY AND EFFICACY OF [id number] IN SUBJECTS WITH NONADVANCED SYSTEMIC MASTOCYTOSIS. Date: 02/29/2024 Time: 12:37 PM Study Day: screening Reason for call: Patient cancelled appointment. Calling to determine reason and to make plan. Spoke w/ Ashley Kee who stated that she cancelled her appointment today because she did not havea ride. She was also working with PT at the time of my phone call. Asked how she is doing. She reported that she has a tight cough, so she was started on a nebulizer by vascular surgery. She does not believe the nebulizer is helping much. She denies SOB or fever. Reports cough is occasionally productive, but she has not looked at the color. Discussed with Dr. Truong. Will plan to get CXR and labs done locally (at [facility]) today, as brenda have a ride after 1430. Signs/Symptoms & Adverse Events (insert table via quick text on first occasion then copy from pervious note for all subsequent notes) EVENT CTCAE GRADE START DATE STOP DATE cough 2 02/25/24 Education Provided: Called back and review tentative plan for labs and CXR. Ashley Kee is in agreement with plan and will have a ride after 1430. We will call her back as soon as we are able to schedule appointments for today. Plan: CXR and labs today. Will follow-up with Ashley Kee after results are received with additional plan if needed. Will plan to see next week, 03/07/24 for final screening and eligiblity review. Pt understands and agrees with plan and knows she can call the clinic with any further questions orconcerns. documented in this encounter Plan of Treatment Upcoming Encounters Date Type Department Care Team (Late st Contact Info) Description 03/02/2024 8:30 AM EST Office Visit Vascular Surgery at [place] [phone] Sarah Bah APRN [facility] [place] [address] 03/04/2024 7:00 AM EST Appointment Mammography/DXA at [place] [phone] Edmund Truong MD [facility] [place] [address] 03/07/2024 10:45 AM EST Laboratory Appointment Lab at [facility] Hematology Oncology [address] [place], [place] [phone] 03/07/2024 11:30 AM EST Office Visit Hematology and Oncology at [place] [phone] Bennett Turner RN 03/07/2024 11:30 AM EST Office Visit Hematology and Oncology at [place] [phone] Edmund Truong MD [facility] [place] [address] 03/10/2024 8:15 AM EST Laboratory Appointment Lab at [facility] Hematology Oncology [address] [place] [address] 03/10/2024 8:30 AM EST Scheduled View Only Hematology and Oncology at [place] [address] 03/10/2024 9:00 AM EST Office Visit Hematology and Oncology at [place] [address] Omid Degroot MD [facility] [place] [address] 03/10/2024 9:00 AM EST Office Visit Hematology and Oncology at [place] [address] Bennett Turner, RN 03/25/2024 9:30 AM EST Tech [place] [address] Carlton Higgins, RVT 03/25/2024 10:15 AM EST Office [place] [address] Tomy Raymond MD [facility] [place] [address] documented as of this encounter Visit Diagnoses Not on filedocumented in this encounter Care Teams Repairer Helper Relationship Specialty Start Date End Date Estrella Mckay, [employer]O REPAIR [place] [address] PCP - General Family Medicine 12/14/23 documented as of this encounter
--- OUTSIDE RECORDS SUMMARY | 2024-02-29 15:49 | XMS_ITS | Clinical Summary ---
Author Organization [facility] Address [facility] [place] [address] Care Team Providers Care Crusher And Blender Operator Name Role Phone Estrella Mckay APRN Primary Care Provider [phone] Allergies Active Allergy Reactions Criticality Noted Date Comments Ciprofloxacin Other (See Comments) 10/15/2023 Burning with IV administration, needed benadryl Ibuprofen Hives 07/15/2010 Morphine Sulfate Nausea And Vomiting Low Nsaids (Non-Steroidal Anti-Inflammatory Drug) Hives Low Oxycodone-Acetaminophen Nausea And Vomiting Medium Medications Medication Sig Dispensed Refills Start Date End Date Status EPINEPHrine 0.3 mg/0.3 mL Auto-Injector Inject 0.3 mL IM once as needed for allergic reaction (Throat tight, difficulty breathing). Call 911 as directed. 1 kit 11 12/18/2023 Active cetirizine (ZyrTEC) 10 mg tabletIndications:S ystemic Mastocytosis Take 1 tablet by mouth daily. Indications: Systemic Mastocytosis 30 tablet 3 01/07/2024 Active famotidine (Pepcid) 20 mg tabletIndications:S ystemic Mastocytosis Take 1 tablet by mouth 2 times daily. Indications: Systemic Mastocytosis 30 tablet 3 01/07/2024 Active montelukast (Singulair) 5 mg chewable tablet Take 1 tablet by mouth nightly. 30 tablet 3 01/07/2024 Active acetaminophen (Tylenol) 500 mg tablet Take 1,000 mg by mouth every 6 hours as needed for Pain (generally takes 1000mg daily in am.). Active methocarbamoL (Robaxin) 750 mg tablet Take 1 tablet by mouth 3 times daily. 30 tablet 02/11/2024 Active polyethylene glycoL (Miralax) 17 gram oral powder packet Take 17 g by mouth daily. 14 each 02/11/2024 Active senna-docusate (Pericolace) 8.6-50 mg Tablet Take 2 tablets by mouth 2 times daily. 60 tablet 11 02/11/2024 Active aspirin 81 mg chewable tablet Take 81 mg by mouth daily. 30 tablet 3 02/25/2024 Active albuteroL 90 mcg/actuation inhaler (HFA) Inhale 2 puffs into the lungs every 4 hours as needed for Wheezing. 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 02/09/2024 Left leg pain 02/04/2024 Back pain 10/27/2011 Right leg pain 10/27/2011 Encounters Date Type Department Care Team Description 02/29/2024 Notes Only Hematology and Oncology at [place] [phone] Bennett Turner RN 02/29/2024 Orders Only Hematology and Oncology at [place] [phone] Edmund Truong MD Systemic mastocytosis; Cough, persistent 02/25/2024 Telephone [place] [address] Tatum Hernandez RN 02/25/2024 [place] [address] Andreas Morales MD 02/25/2024 Telephone [place] [address] Raiza Serrano RN 02/25/2024 Telephone [place] [address] Raiza Serrano RN 02/24/2024 Notes Only Hematology [place] [address] Bennett Turner RN 02/24/2024 Orders Only Hematology and Oncology at [place] [phone] Edmund Truong MD Systemic mastocytosis 02/19/2024 11:59 PM EST Anesthesia Event Surgical Intensive Care Unit - [place] [phone] Kaden Marie DO 02/17/2024 11:59 PM EST Anesthesia Event Surgical Intensive Care Unit - [place] [phone] James Gibbs RN 02/16/2024 8:05 AM EST Anesthesia [place] [address] Edwin Mott MD Herrick, Michael D, MD 02/16/2024 7:30 AM EST - 02/16/2024 2:15 PM EST Surgery Main Operating Room [place] [phone] Emily Raymond MD @BYPASS GRAFT, AORTOBIFEMORAL W\ SYNTHETIC CONDUIT (WRVU 32.98) 02/16/2024 5:34 AM EST - 02/24/2024 12:00 PM EST Hospital Encounter Surgical Intensive Care Unit - [place] [phone] Emily Raymond MD Critical limb ischemia of both lower extremities with bypass graft; Tachycardia; Postprocedural hypotension; Critical limb ischemia of both lower extremities with autologous bypass graft Discharge Disposition: Home 02/15/2024 Notes Only Vascular Surgery [place] [phone] Mikki Damon, TOOL OR DIE DRAWING CHECKER 02/09/2024 12:31 PM EST - 02/11/2024 1:00 PM EST Hospital Encounter Surgical Unit Level 4 [place] [phone] Bam Wetzel MD Goodney, Philip P, MD Critical limb ischemia of both lower extremities with autologous bypass graft (Primary Dx); Left leg pain Discharge Disposition: Home 02/09/2024 Travel 02/09/2024 Telephone [place] [address] Raiza Serrano RN 02/08/2024 Notes Only Hematology and Oncology at [place] [address] Bennett Turner RN 02/04/2024 2:18 PM EDT - 02/05/2024 5:36 PM EDT [place] [address] Jeanna Carreon MD Pain of left calf; Systemic mastocytosis; Pre-op testing; Aortoiliac occlusive disease Discharge Disposition: Home 02/04/2024 Telephone Hematology and Oncology at [place] [address] Antonio Tavares MD 02/04/2024 Orders Only Hematology and Oncology at [place] [address] Edmund Truong MD Systemic mastocytosis 02/04/2024 Notes Only Hematology [place] [address] Bennett Turner RN 02/04/2024 Travel 02/03/2024 Telephone Hematology and Oncology at [place] [address] Karmen Joe, NEYDA Appointment 02/02/2024 Orders Only Hematology and Oncology at [place] [phone] Edmund Truong MD Systemic mastocytosis (Primary Dx) 01/28/2024 2:30 PM EDT Office Visit Hematology and Oncology at [place] [phone] Edmund Truong MD Systemic mastocytosis; Research study patient 01/28/2024 2:30 PM EDT Office Visit Hematology and Oncology at [place] [phone] Bennett Turner RN Systemic mastocytosis 01/28/2024 2:30 PM EDT Office Visit Hematology and Oncology at [place] [phone] Omid Degroot MD Systemic mastocytosis 01/28/2024 11:30 AM EDT Laboratory Appointment Lab at [facility] [place] [address] [place], [place] [phone] Systemic mastocytosis 01/28/2024 10:08 AM EDT - 01/28/2024 11:59 PM EDT Hospital Encounter Non-Invasive Cardiology Lab [place] [phone] Systemic mastocytosis Discharge Disposition: Home 01/28/2024 9:30 AM EDT Clinical Support Hematology and Oncology at [place] [phone] Systemic mastocytosis 01/28/2024 5:26 AM EDT - 01/28/2024 10:07 AM EDT Hospital Encounter MRI at [place] [phone] Edmund Truong MD Systemic mastocytosis Discharge Disposition: Home 01/28/2024 Orders Only Hematology and Oncology at [place] [phone] Edmund Truong MD Systemic mastocytosis (Primary Dx) 01/28/2024 Orders Only Hematology [place] [address] Edmund Truong MD Systemic mastocytosis 01/27/2024 Travel 01/26/2024 Orders Only Hematology and Oncology at [place] [phone] Edmund Truong MD Systemic mastocytosis 01/25/2024 8:30 AM EDT Office Visit Hematology [place] [address] PATIENT NOT SEEN 01/25/2024 8:30 AM EDT Office Visit Hematology [place] [address] Bennett Turner RN Systemic mastocytosis 01/25/2024 Travel 01/23/2024 Travel 01/21/2024 Travel 01/21/2024 Orders Only Hematology [place] [address] Omid Degroot MD Systemic mastocytosis 01/21/2024 Notes Only Hematology [place] [address] Bennett Turner RN 01/20/2024 Notes Only Hematology [place] [address] Bennett Turner RN 01/19/2024 Travel 01/19/2024 Orders Only Hematology [place] [address] Edmund Truong MD Systemic mastocytosis 01/18/2024 Notes Only Hematology [place] [address] Bennett Turner RN 01/07/2024 4:00 PM EDT Office Visit Hematology [place] [address] Edmund Truong MD Systemic mastocytosis 01/07/2024 4:00 PM EDT Office Visit Hematology [place] [address] Omid Degroot MD Systemic mastocytosis 01/07/2024 Notes Only Hematology [place] [address] Bennett Turner RN 01/07/2024 Travel 01/02/2024 Travel 12/30/2023 Travel 12/15/2023 10:30 AM EDT - 12/15/2023 11:30 AM EDT Surgery [place] [address] Omid Degroot MD (OSC MSURG) BONE MARROW BIOPSY AND ASPIRATION; DIAGNOSTIC (WRVU 1.44) 12/15/2023 9:21 AM EDT - 12/15/2023 11:35 AM EDT Hospital Encounter [place] [address] Omid Degroot MD Discharge Disposition: Home from Last 3 Months Social History Tobacco Use Types Packs/Day Years Used Date Smoking Tobacco: Former Cigarettes 30 Q uit: 2012 Smokeless Tobacco: Never Tobacco Cessation:Counseling Given: Not Answered Comments:3 PK A DAY Alcohol Use Standard Drinks/Week Comments No 0 (1 standard drink = 0.6 oz pur e alcohol) [facility] Utilities Answer Date Recorded In the past 12 months has th e [employer], gas, oil, or water [employer] threatened to shut off services in your [...] any time in the past 12 m ont, were you homeless or living in a custodial (including now)? No 02/17/2024 DH IPV Inpatient [...] Sign Reading Time Taken Comments Blood Pressure 111/70 02/24/2024 10:00 AM EST Pulse 92 02/24/2024 10:00 AM EST Temperature 36.2 ??C (97.2 ??F) 02/24/2024 8:00 AM ES T Respiratory Rate 23 02/24/2024 10:00 AM EST Oxygen Saturation 92% 02/24/2024 10:00 AM EST Inhaled Oxygen Concentration - - Weight 54 kg (119 lb 0.8 oz) 02/24/2024 12:00 AM EST Height 160 cm (5' 3) 02/16/2024 6:00 PM EST Body Mass Index 21.09 02/16/2024 6:00 PM EST Plan of Treatment Upcoming Encounters Date Type Department Care Team (Late st Contact Info) Description 03/02/2024 8:30 AM EST Office Visit [place] [phone] Sarah Bah APRN [facility] [place] [address] 03/04/2024 7:00 AM EST Appointment Mammography/[place] [phone] Edmund Truong MD [facility] [address] HEMATOLOGY [place] [address] 03/07/2024 10:45 AM EST Laboratory Appointment Lab at [facility] [place]ematology Oncology [address] [place] [phone] 03/07/2024 11:30 AM EST Office Visit Hematology [place] [address] Bennett Turner, RN 03/07/2024 11:30 AM EST Office Visit Hematology [place] [address] Edmund Truong MD [facility] [address] [place] [address] 03/10/2024 8:15 AM EST Laboratory Appointment Lab at [facility] Hematology Oncology [address] [place] [phone] 03/10/2024 8:30 AM EST Scheduled View Only Hematology and Oncology at [place] [phone] 03/10/2024 9:00 AM EST Office Visit Hematology and Oncology at [place] [phone] Omid Degroot MD [facility] [place] [address] 03/10/2024 9:00 AM EST Office Visit Hematology [place] [address] Bennett Turner RN 03/25/2024 9:30 AM EST Tech Visit Vascular Lab at [place] [phone] Carlton Higgins, RVT 03/25/2024 10:15 AM EST Office [place] [address] Emily Raymond MD [facility] [place] [address] Health Maintenance Due Date Last Done Comments CT Colonography 1960 Colonoscopy 1960 Colorectal Cancer Screening 1960 FIT DNA 1960 FIT 1960 Sigmoidoscopy (10 year) with FIT yearly 1960 Sigmoidoscopy 1960 Pneumococcal Vaccine: At-Ris k 5-64yrs (1 of 2 - PCV) 1966 Tetanus/Diphtheria/Pertussis Vaccines (1 - Tdap) 06/22/1979 Zoster vaccine (1 of 2) 06/22/1979 HPV test 1990 PAP Smear 1990 Breast Cancer Share Decision Needed 2000 Breast Cancer screening 2000 Covid-19 Vaccine (1 - 2023-2 5 season) 2023 Influenza (Flu) vaccine (1 o f 1 - Influenza standard series) 12/06/2023 Hepatitis C Screening Completed 01/28/2024 HIV screen Completed 02/17/2024, 02/04, 02/16/2024, Additional history exists Medical Devices Implanted Type Area Enamel Machine Operator Device Identifier Shelf Expiration Date Model / Serial / Lot Graft Vascular [id number] Straight Double Velour Polyk ([id number]) - [id number] Implanted:Qty : 1 on 02/16/2024 by Emily Raymond MD at [facility] IMPLANTS N/A: Aorta [employer] GR [id number] 01/04/2028 [id number] / [id number] Graft Vascular [id number] Bifrc Collagen Coated Double ([id number]) - [id number] Implanted:Qty : 1 on 02/16/2024 by Emily Raymond MD at [facility] IMPLANTS N/A: Aorta [employer] GR [id number] 10/03/2028 [id number] / [id number] Procedures Procedure Name Priority Date/Time Associated Diagnosis Comments PHOSPHORUS Routine 02/24/2024 12:07 AM EST CBC (WITH DIFF) Routine 02/24/2024 12:07 AM EST BASIC METABOLIC PANEL Routine 02/24/2024 12:07 AM EST MAGNESIUM Routine 02/24/2024 12:07 AM EST EKG 12-LEAD Routine 02/23/2024 10:18 PM EST Critical limb ischemia of both lower extremities with bypass graft Tachycardia SCAN DOC: TELEMETRY STRIPS 02/23/2024 7:21 PM EST XR CHEST ONE VIEW Routine 02/23/2024 3:0 3 PM EST POTASSIUM Routine 02/23/2024 7:37 AM EST SCAN DOC: TELEMETRY STRIPS 02/23/2024 12:29 AM EST ECHO LMTD W/O CONTRAST W LMTD SPEC DOPP COLOR DOPP Routine 02/22/2024 3:02 PM EST Postprocedural hypotension IRON AND TIBC Routine 02/22/2024 10:16 AM EST XR CHEST ONE VIEW Routine 02/22/2024 5:1 0 AM EST CBC (WITH DIFF) Routine 02/22/2024 12:20 AM EST BASIC METABOLIC PANEL Routine 02/22/2024 12:20 AM EST PHOSPHORUS Routine 02/22/2024 12:20 AM EST MAGNESIUM STAT 02/22/2024 12:20 AM EST SCAN DOC: TELEMETRY STRIPS 02/21/2024 9:37 PM EST CBC (WITH DIFF) Routine 02/21/2024 1:24 AM EST BASIC METABOLIC PANEL Routine 02/21/2024 1:24 AM EST PHOSPHORUS Routine 02/21/2024 1:24 AM EST MAGNESIUM STAT 02/21/2024 1:24 AM EST SCAN DOC: TELEMETRY STRIPS 02/20/2024 8:53 PM EST POTASSIUM Routine 02/20/2024 6:40 PM EST POTASSIUM Routine 02/20/2024 10:56 AM EST EXTUBATE Routine 02/20/2024 9:53 AM EST XR CHEST ONE VIEW Routine 02/20/2024 5:0 4 AM EST CBC (WITH DIFF) Routine 02/20/2024 12:06 AM EST BASIC METABOLIC PANEL Routine 02/20/2024 12:06 AM EST PHOSPHORUS Routine 02/20/2024 12:06 AM EST MAGNESIUM STAT 02/20/2024 12:06 AM EST SCAN DOC: TELEMETRY STRIPS 02/19/2024 12:25 PM EST POC, GLUCOSE Routine 02/19/2024 8:00 AM EST PHOSPHORUS Routine 02/19/2024 8:00 AM EST BASIC METABOLIC PANEL Routine 02/19/2024 8:00 AM EST POC, GLUCOSE Routine 02/19/2024 4:00 AM EST POC, GLUCOSE Routine 02/19/2024 12:03 AM EST CBC (WITH DIFF) Routine 02/19/2024 12:03 AM EST BASIC METABOLIC PANEL Routine 02/19/2024 12:03 AM EST PHOSPHORUS STAT 02/19/2024 12:03 AM EST MAGNESIUM STAT 02/19/2024 12:03 AM EST POC, GLUCOSE Routine 02/18/2024 8:36 PM EST XR CHEST ONE VIEW Routine 02/18/2024 8:0 7 PM EST POC, GLUCOSE Routine 02/18/2024 4:11 PM EST CBC (WITH DIFF) Routine 02/18/2024 2:55 PM EST BASIC METABOLIC PANEL Routine 02/18/2024 2:55 PM EST RESPIRATORY CULTURE, QUANTITATIVE Routine 02/18/2024 2:46 PM EST BLOOD GAS VENOUS POC Routine 02/18/2024 1:46 PM EST POC, GLUCOSE Routine 02/18/2024 12:14 PM EST MINI BRONCHIAL ALVEOLAR LAVAGE (MIN-BAL) Routine 02/18/2024 11:47 AM EST SCAN DOC: TELEMETRY STRIPS 02/18/2024 10:38 AM EST URINALYSIS BEAKER MICROSCPIC REFLEX EXAM ([facility]/OVIDIO) Routine 02/18/2024 10:13 AM EST URINALYSIS MICROSCOPIC WITH REFLEX TO CULTURE Routine 02/18/2024 10:13 AM EST URINALYSIS WITH REFLEX CULTURE Routine 02/18/2024 10:13 AM EST BLOOD CULTURE STAT 02/18/2024 9:51 AM EST BLOOD CULTURE STAT 02/18/2024 9:51 AM EST BLOOD GAS VENOUS POC Routine 02/18/2024 9:43 AM EST MRSA PCR SCREEN Routine 02/18/2024 9:24 AM EST RESPIRATORY PANEL PCR Routine 02/18/2024 9:24 AM EST POC, GLUCOSE Routine 02/18/2024 7:42 AM EST XR CHEST ONE VIEW STAT 02/18/2024 4:4 8 AM EST POC, GLUCOSE Routine 02/18/2024 3:58 AM EST EKG 12-LEAD STAT 02/18/2024 1:39 AM EST Tachycardia CBC (WITH DIFF) Routine 02/18/2024 12:32 AM EST BASIC METABOLIC PANEL Routine 02/18/2024 12:32 AM EST PHOSPHORUS STAT 02/18/2024 12:32 AM EST MAGNESIUM STAT 02/18/2024 12:32 AM EST POC, GLUCOSE Routine 02/18/2024 12:[address] CHEST PULMONARY EMBOLISM W CONTRAST STAT 02/18/2024 12:07 AM EST POC, GLUCOSE Routine 02/17/2024 7:56 PM EST CBC (WITH DIFF) Timed 02/17/2024 6:02 PM EST BASIC METABOLIC PANEL Timed 02/17/2024 6:02 PM EST POC, GLUCOSE Routine 02/17/2024 4:14 PM EST FIBRINOGEN Routine 02/17/2024 4:10 PM EST HC PARTIAL THROMBOPLASTIN TIME Routine 02/17/2024 4:10 PM EST PROTHROMBIN TIME Routine 02/17/2024 4:10 PM EST BASIC METABOLIC PANEL Routine 02/17/2024 4:10 PM EST CBC (WITH DIFF) Routine 02/17/2024 4:10 PM EST BLOOD GAS ARTERIAL POC Routine 3:45 PM EST XR CHEST ONE VIEW Routine 02/17/2024 3:3 3 PM EST POC, GLUCOSE Routine 02/17/2024 12:11 PM EST EKG 12-LEAD Routine 02/17/2024 9:06 AM EST Critical limb ischemia of both lower extremities with bypass graft XR CHEST ONE VIEW Routine 02/17/2024 8:0 1 AM EST POC, GLUCOSE Routine 02/17/2024 7:34 AM EST PROTHROMBIN TIME Routine 02/17/2024 6:05 AM EST FIBRINOGEN Routine 02/17/2024 6:05 AM EST CBC (WITH DIFF) STAT 02/17/2024 6:05 AM EST BASIC METABOLIC PANEL STAT 02/17/2024 6:05 AM EST HC PARTIAL THROMBOPLASTIN TIME Routine 02/17/2024 6:05 AM EST POC, GLUCOSE Routine 02/17/2024 3:59 AM EST POC, GLUCOSE Routine 02/17/2024 12:14 AM EST PHOSPHORUS STAT 02/17/2024 12:14 AM EST MAGNESIUM STAT 02/17/2024 12:14 AM EST PROTHROMBIN TIME Routine 02/17/2024 12:14 AM EST FIBRINOGEN Routine 02/17/2024 12:14 AM EST CBC (WITH DIFF) STAT 02/17/2024 12:14 AM EST BASIC METABOLIC PANEL STAT 02/17/2024 12:14 AM EST HC PARTIAL THROMBOPLASTIN TIME Routine 02/17/2024 12:14 AM EST POC, GLUCOSE Routine 02/16/2024 8:39 PM EST PROTHROMBIN TIME Routine 02/16/2024 6:02 PM EST PHOSPHORUS STAT 02/16/2024 6:02 PM EST MAGNESIUM STAT 02/16/2024 6:02 PM EST FIBRINOGEN Routine 02/16/2024 6:02 PM EST CBC (WITH DIFF) STAT 02/16/2024 6:02 PM EST BASIC METABOLIC PANEL STAT 02/16/2024 6:02 PM EST HC PARTIAL THROMBOPLASTIN TIME Routine 02/16/2024 6:02 PM EST POC, GLUCOSE Routine 02/16/2024 5:56 PM EST BLOOD GAS ARTERIAL POC Routine 4 3:42 PM EST BLOOD GAS ARTERIAL POC Routine 4 1:26 PM EST BLOOD GAS ARTERIAL POC Routine 4 11:02 AM EST BLOOD GAS ARTERIAL POC Routine 4 9:08 AM EST ABORH RECHECK (PATIENT HISTORY FOUND) Routine 02/16/2024 8:14 AM EST TYPE AND SCREEN ([facility]) STAT 02/16/2024 8:14 AM EST Bypass Graft Othr, Aortobifemoral (13725) 02/16/2024 8:06 AM EST Occluded limb prior aorto bifem XR FLUORO NO RAD <1HR - OR USE Routine 02/16/2024 7:48 AM EST [id number] ONLY Routine 7:11 AM EST BYPASS GRAFT, AORTOBIFEMORAL W\ SYNTHETIC CONDUIT Routine 02/16/2024 5:58 AM EST HEPARIN (UNFRACTIONATED) LEVEL Timed 02/11/2024 4:32 AM EST PHOSPHORUS Routine 02/11/2024 4:32 AM EST MAGNESIUM Routine 02/11/2024 4:32 AM EST CBC (WITH DIFF) STAT 02/11/2024 4:32 AM EST BASIC METABOLIC PANEL Routine 02/11/2024 4:32 AM EST HEPARIN (UNFRACTIONATED) LEVEL Timed 02/10/2024 6:30 PM EST HEPARIN (UNFRACTIONATED) LEVEL Timed 02/10/2024 11:23 AM EST HEPARIN (UNFRACTIONATED) LEVEL Timed 02/10/2024 1:52 AM EST SCAN, PERIPHERAL BLOOD STAT 1:51 AM EST CBC (WITH DIFF) STAT 02/10/2024 1:51 AM EST BASIC METABOLIC PANEL Routine 02/10/2024 1:51 AM EST GOLD TUBE HOLD STAT 02/09/2024 12:35 PM EST BLUE TUBE HOLD STAT 02/09/2024 12:35 PM EST EXTRA TUBES STAT 02/09/2024 12:35 PM EST BASIC METABOLIC PANEL STAT 02/09/2024 12:35 PM EST CBC (WITH DIFF) STAT 02/09/2024 12:35 PM EST ARTERIAL DUPLEX LEG UNILA STAT 02/09/2024 12:17 PM EST Left leg pain ECHO COMPLETE Routine 02/05/2024 12:29 PM EDT Pre-op testing Aortoiliac occlusive disease HEPARIN (UNFRACTIONATED) LEVEL Timed 02/05/2024 12:04 PM EDT BEDSIDE SPIROMETRY W/O BRONCHODIALATOR Routine 02/05/2024 9:40 AM EDT Systemic mastocytosis HEPARIN (UNFRACTIONATED) LEVEL Timed 02/05/2024 5:39 AM EDT CBC (WITH DIFF) STAT 02/05/2024 5:39 AM EDT CBC (WITH DIFF) STAT 02/04/2024 11:[address] ANGIOGRAM OF CHEST (NON-CORONARY) W CONTRAST STAT 02/04/2024 6:45 PM EDT EKG 12-LEAD STAT 02/04/2024 6:00 PM EDT MARGIE, LEGS, MULTIPLE LEVELS STAT 02/04/2024 4:03 PM EDT Pain of left calf CT ANGIOGRAM AORTA LOWER EXTREMITY RUNOFF STAT 02/04/2024 3:51 PM EDT TYPE AND SCREEN ([facility]) STAT 02/04/2024 2:39 PM EDT BILIRUBIN, DIRECT STAT Add-On 02/04/2024 2:3 9 PM EDT Systemic mastocytosis GOLD TUBE HOLD STAT 02/04/2024 2:39 PM EDT EXTRA TUBES STAT 02/04/2024 2:39 PM EDT COMPREHENSIVE METABOLIC PANEL STAT 02/04/2024 2:39 PM EDT HC PARTIAL THROMBOPLASTIN TIME STAT 02/04/2024 2:39 PM EDT PROTHROMBIN TIME STAT 02/04/2024 2:39 PM EDT CBC (WITH DIFF) STAT 02/04/2024 2:39 PM EDT DUPLEX FOR DVT, LEG, UNILAT STAT 02/04/2024 2:32 PM EDT Pain of left calf EKG 12-LEAD Routine 01/28/2024 10:13 AM EDT Systemic mastocytosis [facility] Routine 01/28/2024 9:19 AM EDT [facility] Routine 01/28/2024 9 :19 AM EDT HCV REFLEX HOLD STAT 01/28/2024 9:19 AM EDT Systemic mastocytosis HEPATITIS C ANTIBODY WITH REFLEX (PERFORMABLE) STAT 01/28/2024 9:19 AM EDT Systemic mastocytosis COLLAGEN TYPE I C-TELOPEPTIDE STAT 01/28/2024 9:19 AM EDT Systemic mastocytosis TRYPTASE STAT 01/28/2024 9:19 AM EDT Systemic mastocytosis HEP C AB WITH REFLEX STAT 01/28/2024 9:19 AM EDT Systemic mastocytosis HEPATITIS B CORE ANTIBODY, IGM STAT 01/28/2024 9:19 AM EDT Systemic mastocytosis HEPATITIS B SURFACE ANTIBODY STAT 01/28/2024 9:19 AM EDT Systemic mastocytosis HEPATITIS B SURFACE ANTIGEN STAT 01/28/2024 9:19 AM EDT Systemic mastocytosis HIV SCREEN, 4TH GENERATION ([facility]) STAT 01/28/2024 9:19 AM EDT Systemic mastocytosis HC PARTIAL THROMBOPLASTIN TIME STAT 01/28/2024 9:19 AM EDT Systemic mastocytosis PROTHROMBIN TIME STAT 01/28/2024 9:19 AM EDT Systemic mastocytosis LACTATE DEHYDROGENASE STAT 01/28/2024 9:19 AM EDT Systemic mastocytosis PHOSPHORUS STAT 01/28/2024 9:19 AM EDT Systemic mastocytosis MAGNESIUM STAT 01/28/2024 9:19 AM EDT Systemic mastocytosis URIC ACID STAT 01/28/2024 9:19 AM EDT Systemic mastocytosis GAMMA GT STAT 01/28/2024 9:19 AM EDT Systemic mastocytosis COMPREHENSIVE METABOLIC PANEL STAT 01/28/2024 9:19 AM EDT Systemic mastocytosis CBC (WITH DIFF) STAT 01/28/2024 9:19 AM EDT Systemic mastocytosis MRI ABDOMEN AND PELVIS WWO CONTRAST Routine 01/28/2024 6:35 AM EDT Systemic mastocytosis BM HOLD CG/FISH Routine 12/15/2023 10:56 AM EDT BM HOLD FLOW/MOLECULAR Routine 10:56 AM EDT BONE MARROW ANALYSIS Routine 12/15/2023 10:56 AM EDT BONE MARROW Routine 12/15/2023 10:56 AM EDT MISC MEDINA TEST-MEDINA Routine 12/15/2023 10:56 AM EDT DH HEMESEQ (BONE MARROW) Routine 024 10:56 AM EDT IMMUNOPHENOTYPING FLOW CYTOMETRY Routine 12/15/2023 10:56 AM EDT CHROMOSOME ANALYSIS, ACQUIRED ([facility]) Routine 12/15/2023 10:56 AM EDT Diagnostic Bone Marrow Biopsies & Aspirations (80189) Yes 12/15/2023 10:46 AM EDT Systemic Mastocytosis, Polycythemia CBC (WITH DIFF) Routine 12/15/2023 10:04 AM EDT ([facility]C MSURG) BONE MARROW BIOPSY AND ASPIRATION; DIAGNOSTIC Routine 12/15/2023 9:41 AM EDT from Last 3 Months Results * (ABNORMAL) CBC (with Diff) (02/24/2024 12:07 AM EST) Only the most recent of20 resultswithin the time period is included. White Blood Cell 7.73 4.00 - 9.50 x10(3)/mc L 02/24/2024 12:23 AM [facility] Red Blood Cell 2.87(L) 4.00 - 5.21 x10(6)/mc L 02/24/2024 12:23 AM [facility] Hemoglobin 9.0(L) 11.7 - 15.5 g/dL 02/24/2024 12:23 AM [facility] Hematocrit 27.0(L) 35.7 - 45.8 % 02/24/2024 12:23 AM [facility] Mean Cell Volume 94.1 82.6 - 94.4 fL 02/24/2024 12:23 AM [facility] Mean Cell Hemoglobin 31.4 27.1 - 32.0 pg 02/24/2024 12:23 AM [facility] Mean Cell Hemoglobin Concentration 33.3 31.7 - 35.0 g/dL 02/24/2024 12:23 AM [facility] Platelet 302 145 - 357 x10(3)/mc L 02/24/2024 12:23 AM [facility] Mean Platelet Volume 8.6 7.6 - 12.9 fL 02/24/2024 12:23 AM [facility] RDW Standard Deviation 46.2(H) 37.0 - 46.0 fL 02/24/2024 12:23 AM [facility] RDW coefficient of variation 13.5 11.5 - 14.1 % 02/24/2024 12:23 AM [facility] NRBC% auto 0.0 % 02/24/2024 12:23 AM [facility] NRBC Absolute <0.01 <0.01 x10(3)/mc L 02/24/2024 12:23 AM [facility] Neutrophil % 59.7 % 02/24/2024 12:23 AM [facility] Neutrophil Absolute (ANC) - Automated 4.61 1.70 - 6.10 x10(3)/mc L 02/24/2024 12:23 AM [facility] Lymph % 26.0 % 02/24/2024 12:23 AM [facility] Lymph Absolute 2.01 0.90 - 3.20 x10(3)/mc L 02/24/2024 12:23 AM [facility] Monocyte % 9.8 % 02/24/2024 12:23 AM [facility] Monocyte Absolute 0.76 0.30 - 0.90 x10(3)/mc L 02/24/2024 12:23 AM [facility] Eos % 3.1 % 02/24/2024 12:23 AM [facility] Eos Absolute 0.24 0.00 - 0.40 x10(3)/mc L 02/24/2024 12:23 AM [facility] Basophil % 0.4 % 02/24/2024 12:23 AM EST [facility] Baso Absolute <0.04 0.00 - 0.10 x10(3)/mc L 02/24/2024 12:23 AM EST [facility] Immature Gran % 1.0 % 12:23 AM [facility] Immature Gran Absolute 0.08(H) 0.00 - 0.04 x10(3)/mc L 02/24/2024 12:23 AM EST [facility] Blood VENOUS BLOOD SPECIMEN / Unknown Venipuncture / Unknown 02/24/2024 12:07 AM EST 02/24/2024 12:19 AM EST Emily Raymond MD HEMATOLOGY ORDERABLE S [facility] [place] [address] * Phosphorus (02/24/2024 12:07 AM EST) Only the most recent of11 resultswithin the time period is included. Phosphorus 4.0 2.5 - 4.5 mg/dL 02/24/2024 12:49 AM [facility] Blood VENOUS BLOOD SPECIMEN / Unknown Venipuncture / Unknown 02/24/2024 12:07 AM EST 02/24/2024 12:19 AM EST Emily Raymond MD CHEMISTRY ORDERABLES [facility] [place] [address] * Magnesium (02/24/2024 12:07 AM EST) Only the most recent of10 resultswithin the time period is included. Magnesium 0.86 0.69 - 1.07 mMol/L 02/24/2024 12:49 AM [facility] Blood VENOUS BLOOD SPECIMEN / Unknown Venipuncture / Unknown 02/24/2024 12:07 AM EST 02/24/2024 12:19 AM EST Emily Raymond MD CHEMISTRY ORDERABLES [facility] [place] [address] * (ABNORMAL) Basic Metabolic Panel (02/24/2024 12:07 AM EST) Only the most recent of16 resultswithin the time period is included. Glucose 115 65 - 199 mg/dL 02/24/2024 12:49 AM [facility] Comment:Glucose Concentratio n >=200 mg/dL plus symptoms is consistent with Diabetes Mellitus. Blood Urea Nitrogen 5(L) 8 - 18 mg/dL 02/24/2024 12:49 AM [facility] Creatinine 0.68(L) 0.70 - 1.20 mg/dL 02/24/2024 12:49 AM [facility] Sodium 143 135 - 145 mMol/L 02/24/2024 12:49 AM [facility] Potassium 3.6 3.5 - 5.0 mMol/L 02/24/2024 12:49 AM [facility] Chloride 107 98 - 107 mMol/L 02/24/2024 12:49 AM [facility] Carbon Dioxide 24 22 - 31 mMol/L 02/24/2024 12:49 AM [facility] Anion Gap 12 5 - 15 mMol/L 02/24/2024 12:49 AM [facility] Calcium 8.6 8.5 - 10.5 mg/dL 02/24/2024 12:49 AM [facility] Est Glomerular Filtration Rate - Female 98 mL/min/1. 73 m?? 02/24/2024 12:49 AM [facility] Comment: This patient's estimated GFR was calculated using the 2020 CKD-EPI equation. The estimated GFR can vary from the measured GFR by up to 30% in the absence of rapidly changing kidney function. Assessment of the estimated GFR is not appropriate when creatinine concentrations are rapidly changing. For clinical situations in which a more precise estimate of GFR is necessary, consider alternative methods of GFR estimation such as a 24-hour urine creatinine clearance. Assignment of CKD stage 1 - 5 for patients with an eGFR near the transition point between stages may be based on clinical assessment of muscle mass and symptoms in addition to eGFR. Link: eGFR Calculator [employer] Blood VENOUS BLOOD SPECIMEN / Unknown Venipuncture / Unknown 02/24/2024 12:07 AM EST 02/24/2024 12:19 AM EST Emily Raymond MD CHEMISTRY ORDERABLES Performing Organization Address City/[facility]/ZIP [place] [address] * EKG 12 Lead (02/23/2024 10:18 PM EST) Only the most recent of5 resultswithin the time period is included. Ventricular rate 105 BPM MUSE SYSTEM Atrial Rate 105 BPM MUSE SYSTEM P-R Interval 156 ms MUSE SYSTEM QRS Duration 140 ms MUSE SYSTEM Q-T Interval 382 ms MUSE SYSTEM QTC Calculated (Bezet) 504 ms MUSE SYSTEM Calculated P [place] 51 degrees MUSE SYSTEM Calculated R [place] 88 degrees MUSE SYSTEM Calculated T [place] 36 degrees MUSE SYSTEM INTERPRETATION Sinus tachycardia Right bundle branch block Abnormal ECG When compared with ECG of 18-FEB-2024 01:39, Criteria for Septal infarct are no longer Present I personally reviewed the tracing and edited the fellows interpretation Confirmed by fellow MD Domi, Max ([id number]) on 02/24/2024 12:23:51 PM Confirmed by Jen[facility] VE[id number] on 02/24/2024 4:13:23 PM MUSE SYSTEM 02/23/2024 10:1 8 PM EST 02/24/2024 4:13 PM EST Emily Raymond MD ECG ORDERABLES Performing Organization Address City/[facility]/ZIP Co de Phone Number MUSE SYSTEM * Scan Doc: Telemetry Strips (02/23/2024 7:21 PM EST) Only the most recent of6 resultswithin the time period is included. Narrative 02/23/2024 7:21 PM EST Ordered by an unspecified provider. Scanning Provider MEDIA MGR SCAN EXT O RDR/RSLT * XR Chest One View (02/23/2024 3:03 PM EST) Only the most recent of7 resultswithin the time period is included. WORKSTATION ID [id number] RAD Anatomical Region Laterality Modality Chest N/A Digital Radiogra phy Impressions 02/23/2024 4:50 PM EST 1. ??Interval removal of left chest tube with stable left pleural effusion and no pneumothorax. 2. ??Unchanged retrocardiac opacity which may be atelectasis. Thank you for letting us participate in the care of this patient. ??If you are a health care provider and have any questions regarding this report, please contact the number below. ??For patients who have questions please contact the health career specialist that requested your imaging first. ? Electronically signed by: Demi Valencia MD, [facility] ([phone]), at 02/23/2024 4:50 PM Narrative 02/23/2024 4:50 PM EST EXAMINATION: XR CHEST ONE VIEW CLINICAL HISTORY: Interval assessment 4-hrs after removal of surgical chest tube. TECHNIQUE: 1 view of the chest , AP portable 70 degrees semiupright at 1457 hours COMPARISON: 02/22/2024 FINDINGS: Left internal jugular vascular catheter tip terminates in the SVC, unchanged. Left chest wall skin kim are present. Interval removal of left chest tube with unchanged mild blunting of the left lateral costophrenic sulcus. No pneumothorax. Stable retrocardiac opacity silhouetting the left hemidiaphragm. Left mid and upper lungs are clear. Right lung well aerated and clear. No right pleural effusion or pneumothorax. Stable enlargement of the heart. Normal superior mediastinal configuration and hilar structures. 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 Absent anterior right first rib with multiple surgical clips, presumably previously resected. Truncated left posterolateral seventh rib likely postsurgical. Procedure Note Demi Valencia MD - 02/23/2024 EXAMINATION: XR CHEST ONE VIEW CLINICAL HISTORY: Interval assessment 4-hrs after removal of surgicalchest tube. TECHNIQUE: 1 view of the chest , AP portable 70 degrees semiupright at 1457 hours COMPARISON: 02/22/2024 FINDINGS: Left internal jugular vascular catheter tip terminates in the SVC,unchanged. Left chest wall skin kim are present. Interval removal of left chest tube with unchanged mild blunting of theleft lateral costophrenic sulcus. No pneumothorax. Stable retrocardiac opacity silhouetting the left hemidiaphragm. Left midand upper lungs are clear. Right lung well aerated and clear. No rightpleural effusion or pneumothorax. Stable enlargement of the heart. Normal superior mediastinal configurationand hilar structures. Stable chronic truncation of the distal right clavicle which could bethe sequela of remote trauma. Absent anterior right first rib with multiplesurgical clips, presumably previously resected. Truncated left posterolateralseventh rib likely postsurgical. IMPRESSION 1. Interval removal of left chest tube with stable left pleural effusionand no pneumothorax. 2. Unchanged retrocardiac opacity which may be atelectasis. Thank you for letting us participate in the care of this patient. If youare a health care provider and have any questions regarding this report,please contact the number below. For patients who have questions please contactthe health career specialist that requested your imaging first. Electronically signed by: Demi Valencia MD, [facility]([phone]), at 02/23/2024 4:50 PM Emily Raymond MD IMG DX ORDERABLES * Potassium (02/23/2024 7:37 AM EST) Only the most recent of3 resultswithin the time period is included. Potassium 3.7 3.5 - 5.0 mMol/L 02/23/2024 8:25 AM EST [facility] Blood VENOUS BLOOD SPECIMEN / Unknown Venipuncture / Unknown 02/23/2024 7:37 AM EST 02/23/2024 7:56 AM EST Emily Raymond MD CHEMISTRY ORDERABLES [facility] [place] [address] * ECHO LMTD W/O CONTRAST W LMTD SPEC DOPP COLOR DOPP (02/22/2024 3:02 PM EST) Anatomical Region Laterality Modality Cardiac Other 02/22/2024 1:18 PM EST Narrative 02/22/2024 4:40 PM EST [address] [place] [id number] ? Echocardiogram Report Name: JT GRAYSON ?Study Date: 02/22/2024 01:18 PMBP: 112/55 mmHg : 1960 ? Height: 160 cm ? Account: [id number] Age: 63 yrs ? Weight: 57 kg Gender: Female ?BSA: 1.6 m2 Ordering Physician: EMILY RAYMOND Referring Physician: UNKNOWN Performed By: Stevo Garcia RDCS Reason For Study: postprocedural hypotension Exam Location: [facility]. Interpretation Summary -Left ventricular systolic function is normal. Left ventricular ejection fraction is estimated visually at 60%. There are no segmental wall motion abnormalities. -Right ventricular systolic function is normal. -No significant valve disease. -No pericardial effusion. -Inferior vena cava is collapsible. -Compared with the previous echo performed on 02/05/24, there is no significant change. Procedure Limited - 06559. Doppler - 32445. Color Doppler - 90869. Satisfactory quality. Left Ventricle Left ventricle is of normal size. Wall thickness is normal. Left ventricular systolic function is normal. Left ventricular ejection fraction is estimated visually at 60%. There are no segmental wall motion abnormalities. Right Ventricle The right ventricle is not well visualized. The right ventricle is of normal size. Right ventricular systolic function is normal. Left Atrium The left atrium is normal. No abnormality of the interatrial septum is identified. Right Atrium The right atrium is normal. Aortic Valve The aortic valve is not well visualized. There is no aortic stenosis. There is no aortic regurgitation. Mitral Valve The mitral valve is structurally normal. There is no mitral stenosis. There is trace mitral regurgitation. Tricuspid Valve The tricuspid valve is not well visualized. There is no tricuspid stenosis. There is trace tricuspid regurgitation. Pulmonic Valve The pulmonic valve is not well visualized. There is no valvular pulmonic stenosis. There is no pulmonic valve regurgitation. Great Arteries The aortic root is of normal size. No abnormalities are identified. Venous Inferior vena cava is normal in size. Inferior vena cava collapse greater than 50% with respiration. Pericardium/Pleural A pericardial fat pad is present. There is no pericardial effusion. Hemodynamics Pulmonary artery hypertension could not be assessed due to inadequate tricuspid regurgitation jet. The estimated right atrial pressure is 3mmHg. Left ventricular diastolic function is indeterminate. ? 2D Measurements ? Volumes ?IVSd: 0.76 cm ?LAV(MOD-bp) Indexed: ?LVIDd: 4.5 cm ?LVIDs: 2.8 cm ?13.1 ml/m2 ?LVPWd: 0.79 cm ?RWT: 0.35 {ratio} ?LV mass(C)d: 107.8 grams ?LV mass(C)dI: 67.8 grams/m2 Doppler LV V1 VTI: 16.1 cm Ao V2 VTI: 22.7 cm Ao Max Otilio: 137.5 cm/sec Ao valve max: 7.6 mmHg Ao valve mean: 3.6 mmHg MV E max otilio: 116.9 cm/sec MV A max otilio: 109.0 cm/sec MV E/A: 1.1 Lat Peak E' Otilio: 6.3 cm/sec E/e' (lat): 18.5 Med Peak E' Otilio: 7.2 cm/sec E/e' (med): 16.3 E/e' Average: 17.4 Dimensionless index Aov: 0.71 I ?WMSI = 1.00 ? % Normal = 100 ?Segments ??Size X - Cannot ?2 - ?4 - ?1-2 ? small Interpret ?1 - Normal ?? Hypokinetic 3 - Akinetic Dyskinetic ?? 3-5 ? moderate 5 - ? 6-14 ?large Aneurysmal ?15-16 ?? diffuse Procedure Note Main Mcclain MD - 02/22/2024 [address] [place] [address] Echocardiogram Report Name: JT GRAYSON Study Date: 1:18 PMBP: 112/55 mmHg : 1960 Height: 160 cm Account: [id number] Age: 63 yrs Weight: 57 kg Gender: Female BSA: 1.6 m2 Ordering Physician: EMILY RAYMOND Referring Physician: UNKNOWN Performed By: Stevo Garcia RDCS Reason For Study: postprocedural hypotension Exam Location: [facility]. Interpretation Summary -Left ventricular systolic function is normal. Left ventricular ejectionfraction is estimated visually at 60%. There are no segmental wall motionabnormalities. -Right ventricular systolic function is normal. -No significant valve disease. -No pericardial effusion. -Inferior vena cava is collapsible. -Compared with the previous echo performed on 02/05/24, there is nosignificant change. Procedure Limited - 02064. Doppler - 26125. Color Doppler - 09419. Satisfactoryquality. Left Ventricle Left ventricle is of normal size. Wall thickness is normal. Leftventricular systolic function is normal. Left ventricular ejection fraction isestimated visually at 60%. There are no segmental wall motion abnormalities. Right Ventricle The right ventricle is not well visualized. The right ventricle is ofnormal size. Right ventricular systolic function is normal. Left Atrium The left atrium is normal. No abnormality of the interatrial septum isidentified. Right Atrium The right atrium is normal. Aortic Valve The aortic valve is not well visualized. There is no aortic stenosis.There is no aortic regurgitation. Mitral Valve The mitral valve is structurally normal. There is no mitral stenosis.There is trace mitral regurgitation. Tricuspid Valve The tricuspid valve is not well visualized. There is no tricuspidstenosis. There is trace tricuspid regurgitation. Pulmonic Valve The pulmonic valve is not well visualized. There is no valvular pulmonicstenosis. There is no pulmonic valve regurgitation. Great Arteries The aortic root is of normal size. No abnormalities are identified. Venous Inferior vena cava is normal in size. Inferior vena cava collapse greaterthan 50% with respiration. Pericardium/Pleural A pericardial fat pad is present. There is no pericardial effusion. Hemodynamics Pulmonary artery hypertension could not be assessed due to inadequatetricuspid regurgitation jet. The estimated right atrial pressure is 3mmHg. Leftventricular diastolic function is indeterminate. 2D Measurements Volumes IVSd: 0.76 cm LAV(MOD-bp)Indexed: LVIDd: 4.5 cm LVIDs: 2.8 cm 13.1 ml/m2 LVPWd: 0.79 cm RWT: 0.35 {ratio} LV mass(C)d: 107.8 grams LV mass(C)dI: 67.8 grams/m2 Doppler LV V1 VTI: 16.1 cm Ao V2 VTI: 22.7 cm Ao Max Otilio: 137.5 cm/sec Ao valve max: 7.6 mmHg Ao valve mean: 3.6 mmHg MV E max otilio: 116.9 cm/sec MV A max otilio: 109.0 cm/sec MV E/A: 1.1 Lat Peak E' Otilio: 6.3 cm/sec E/e' (lat): 18.5 Med Peak E' Otilio: 7.2 cm/sec E/e' (med): 16.3 E/e' Average: 17.4 Dimensionless index Aov: 0.71 I WMSI = 1.00 % Normal = 100 SegmentsSize X - Cannot 2 - 4 - 1-2small Interpret 1 - Normal Hypokinetic 3 - Akinetic Dyskinetic 3-5moderate 5 - 6-14large Aneurysmal 15-16diffuse Emily Raymond MD ECHO ORDERABLES * (ABNORMAL) Iron and TIBC (02/22/2024 10:16 AM EST) Pathologist [facility] Iron 24(L) 30 - 150 mcg/dL 02/22/2024 11:18 AM [facility] TIBC 186(L) 250 - 450 mcg/dL 02/22/2024 11:18 AM [facility] Iron Saturation 13(L) 20 - 50 % 11:18 AM [facility] Blood VENOUS BLOOD SPECIMEN / Unknown Venipuncture / Unknown 02/22/2024 10:16 AM EST 02/22/2024 10:37 AM EST Emily Raymond MD CHEMISTRY ORDERABLES [facility] [place] [address] * POC, GLUCOSE (02/19/2024 8:00 AM EST) Only the most recent of17 resultswithin the time period is included. Glucometer, POC 120 65 - 199 mg/dL 02/19/2024 8:02 AM [facility] Comment:Supplemental ranges: <140 mg/dL before meals <180 mg/dL all other times of the day. Blood CAPILLARY BLOOD / Unknown 02/19/2024 8:00 AM EST 02/19/2024 8:02 AM EST Emily Raymond MD POINT OF CARE TEST O RDERABLES [facility] [place] [address] * (ABNORMAL) Respiratory Culture, Quantitative (02/18/2024 2:46 PM EST) Quantitative Bacterial Culture 4,000 CFU/mL Citrobacter freundii complex(A) VITEK 2 METHOD 02/20/2024 9:37 AM EST [facility] Gram Stain Cytocentrifuge Gram Stain performed 02/20/2024 9:37 AM EST [facility] Gram Stain Neutrophils seen 02/20/20 9:37 AM EST [facility] Gram Stain No microorganisms seen 02/20/2024 9:37 AM EST [facility] Bronchial Alveolar Lavage STRUCTURE OF LOWER LOBE OF LEFT LUNG / Unknown Non Blood Collection / Unknown 02/18/2024 2:46 PM EST 02/18/2024 3:06 PM EST Narrative Organism Antibiotic Method Susceptibility Citrobacter freundii complex Cefazolin (Systemic) VITEK 2 METHOD Resistant Citrobacter freundii complex Cefepime VITEK 2 METHOD <=0.12 ug/ml: Susceptible Citrobacter freundii complex Ceftriaxone VITEK 2 METHOD <=0.25 ug/ml: Susceptible Comment:This organis m may develop resistance during therapy with 3rd generation cephalosporins (e.g. cefTRIaxone, cefTAZidime), particularly with prolonged durations, due to production of inducible AmpC beta-lactamase. Citrobacter freundii complex Ciprofloxacin VITEK 2 METHOD <=0.06 ug/ml: Susceptible Citrobacter freundii complex Gentamicin VITEK 2 METHOD <=1.0 ug/ml: Susceptible Citrobacter freundii complex Levofloxacin VITEK 2 METHOD <=0.12 ug/ml: Susceptible Citrobacter freundii complex Piperacillin/Tazobactam VITEK 2 METHOD <=4.0 ug/ml: Susceptible Citrobacter freundii complex Trimethoprim/Sulfa VITEK 2 METHOD <=20.0 ug/ml: Susceptible Emily Raymond MD MICROBIOLOGY - GENER AL ORDERABLES [facility] [place] [address] * (ABNORMAL) Blood Gas, Venous POC (02/18/2024 1:46 PM EST) Only the most recent of2 resultswithin the time period is included. pH, Venous 7.33 7.32 - 7.42 02/18/2024 1:47 PM EST [facility] PCO2, Venous 52 38 - 58 mmHg 02/18/2024 1:47 PM [facility] PO2, Venous 27 16 - 65 mmHg 02/18/2024 1:47 PM [facility] Bicarbonate, Venous 27.2 22 - 31 mmol/L 02/18/2024 1:47 PM EST [facility] Base Excess, Venous 1.3(L) 1.9 - 4.5 mmol/L 02/18/2024 1:47 PM [facility] Hemoglobin, Venous 9.9(L) 11.7 - 15.5 g/dL 02/18/2024 1:47 PM [facility] Oxyhemoglobin, Venous 45.0 % 02/18/2024 1:47 PM [facility] Carboxyhemoglobin , Venous 1.2 % 02/18/2024 1:47 PM [facility] Comment: Nonsmokers: 0.5-1.5% COHB ?? Smokers: Variable ??but usually less than 10% ?? Toxic: 20-30% COHB ?? Lethal: Greater than 60% COHB Methemoglobin, Venous 0.3 <=1.5 % 02/18/2024 1:47 PM EST [facility] Sodium, Venous 138 135 - 145 mmol/L 02/18/2024 1:47 PM [facility] Potassium, Venous 3.2(L) 3.5 - 5.0 mmol/L 02/18/2024 1:47 PM [facility] Chloride, Venous 106 98 - 107 mmol/L 02/18/2024 1:47 PM [facility] Glucose, Venous 109 65 - 199 mg/dL 02/18/2024 1:47 PM [facility] Comment:Glucose Concentratio n >=200 mg/dL plus symptoms is consistent with Diabetes Mellitus. Lactate, Venous 2.4(H) 0.5 - 2.2 mmol/L 02/18/2024 1:47 PM [facility] Ionized Calcium, Venous 1.10(L) 1.15 - 1.33 mmol/L 02/18/2024 1:47 PM [facility] Blood VENOUS BLOOD SPECIMEN / Unknown 02/18/2024 1:46 PM EST 02/18/2024 1:47 PM EST Emily Raymond MD POINT OF CARE TEST O RDERABLES [facility] [place] [address] * (ABNORMAL) Urinalysis Microscopic Reflex to Culture (02/18/2024 10:13 AM EST) RBC, Urine <1 0 - 4 /HPF 02/18/2024 11:32 AM [facility] WBC, Urine 1 0 - 5 /HPF 02/18/2024 11:32 AM [facility] Squamous Epithelial Cells, Urine 1 <5 /HPF 02/18/2024 11:32 AM [facility] Transitional Epithelial Cells, Urine <1 <2 /HPF 02/18/2024 11:32 AM [facility] Hyaline Casts, Urine 02/18/2024 11:32 [address] [facility] Comment 02/18/2024 11:32 AM [facility] Comment:Interpret results wi th caution, microscopic results are from a suboptimal specimen. Bacteria, Urine Occasiona l(A) None /HPF 02/18/2024 11:32 AM EST [facility] CULTURE ADDED? 02/18/2024 11:32 AM [facility] Urine URINE SPECIMEN OBTAINED VIA [employer] URINARY CATHETER / Unknown Non Blood Collection / Unknown 02/18/2024 10:13 AM EST 02/18/2024 10:37 AM EST Emily Raymond MD URINE ORDERABLES Performing Organization Address City/[facility]/ZIP Co de Phone Number [facility] [place] [address] * Urinalysis Microscopic with Reflex to Culture (02/18/2024 10:13 AM EST) CULTURE ADDED? 02/18/2024 11:32 AM [facility] Urine URINE SPECIMEN OBTAINED VIA [employer] URINARY CATHETER / Unknown Non Blood Collection / Unknown 02/18/2024 10:13 AM EST 02/18/2024 10:37 AM EST Emily Raymond MD URINE ORDERABLES Performing Organization Address City/[facility]/ZIP Co de Phone Number [facility] [place] [address] * (ABNORMAL) Urinalysis with reflex Culture (02/18/2024 10:13 AM EST) Glucose, Urine Dipstick Negative Negative 02/18/2024 11:32 AM [facility] Protein, Urine Dipstick Negative Negative 02/18/2024 11:32 AM [facility] Bilirubin, Urine Dipstick Negative Negative 02/18/2024 11:32 AM [facility] Comment:Clinical correlation required for positive Urine Bilirubin results as false positive may occur with some drugs and drug related products. If a false positive is suspected a serum total bilirubin should be considered if clinically indicated. Urobilinogen, Urine Dipstick Normal Normal, 0.2 mg/dL, 1.0 mg/dL 02/18/2024 11:32 AM [facility] pH, Urine (dipstick) 6.0 5.0 - 8.0 02/18/2024 11:32 AM [facility] Blood, Urine Dipstick Trace(A) Negative 02/18/2024 11:32 AM [facility] Ketone, Urine Dipstick Negative Negative 02/18/2024 11:32 AM [facility] Nitrite, Urine Dipstick Negative Negative 02/18/2024 11:32 AM [facility] Leukocytes, Urine Dipstick Small(A) Negative 02/18/2024 11:32 AM [facility] Specific [place] Urine Automated <=1.005(L) 1.005 - 1.030 02/18/2024 11:32 AM [facility] Appearance, Urine Dipstick Clear Clear 02/18/2024 11:32 AM [facility] Color, Urine Dipstick Yellow Yellow, Dark Yellow 02/18/2024 11:32 AM [facility] CULTURE ADDED? 02/18/2024 11:32 AM [facility] Urine URINE SPECIMEN OBTAINED VIA [employer]WELL[employer] URINARY CATHETER / Unknown Non Blood Collection / Unknown 02/18/2024 10:13 AM EST 02/18/2024 10:37 AM EST Emily Raymond MD URINE ORDERABLES [facility] [place] [address] * Blood culture (02/18/2024 9:51 AM EST) Only the most recent of2 resultswithin the time period is included. Blood Culture No growth at 120 hours 02/23/2024 12:01 PM [facility] Blood VENOUS BLOOD SPECIMEN / Unknown Venipuncture / Unknown 02/18/2024 9:51 AM EST 02/18/2024 10:21 AM EST Emily Raymond MD MICROBIOLOGY - BLOOD ORDERABLES [facility] [address] [place] [address] * Respiratory Panel PCR (02/18/2024 9:24 AM EST) Respiratory Panel PCR Negative Negative 02/18/2024 10:50 AM [facility] Adenovirus Not Detected Not Detected 02/18/2024 10:50 AM [facility] Coronavirus HKU1 Not Detected Not Detected 02/18/2024 10:50 AM [facility] Coronavirus NL63 Not Detected Not Detected 02/18/2024 10:50 AM [facility] Coronavirus 229E Not Detected Not Detected 02/18/2024 10:50 AM [facility] Coronavirus OC43 Not Detected Not Detected 02/18/2024 10:50 AM [facility] SARS-CoV-2 Not Detected Not Detected 02/18/2024 10:50 AM [facility] Human Metapneumovirus Not Detected Not Detected 02/18/2024 10:50 AM [facility] Human Rhinovirus/Enterov irus Not Detected Not Detected 02/18/2024 10:50 AM [facility] Influenza A Not Detected Not Detected 02/18/2024 10:50 AM [facility] Influenza B Not Detected Not Detected 02/18/2024 10:50 AM [facility] Parainfluenza 1 Not Detected Not Detected 02/18/2024 10:50 AM [facility] Parainfluenza 2 Not Detected Not Detected 02/18/2024 10:50 AM [facility] Parainfluenza 3 Not Detected Not Detected 02/18/2024 10:50 AM [facility] Parainfluenza 4 Not Detected Not Detected 02/18/2024 10:50 AM [facility] Respiratory Syncytial Virus Not Detected Not Detected 02/18/2024 10:50 AM [facility] Chlamydophila pneumoniae Not Detected Not Detected 02/18/2024 10:50 AM EST [facility] Mycoplasma pneumoniae Not Detected Not Detected 02/18/2024 10:50 AM EST [facility] Swab SPECIMEN FROM NASOPHARYNGEAL STRUCTURE / Unknown Non Blood Collection / Unknown 02/18/2024 9:24 AM EST 02/18/2024 9:34 AM EST Narrative [facility] - 02/18/2024 10:50 AM EST Respiratory Panels are performed on the [employer] using multiplexed PCR nucleic acid detection. Negative results do not preclude respiratory infection and should not be used as the sole basis for diagnosis, treatment, or other management decisions. Emily Raymond MD MICROBIOLOGY - [employer] [facility] [facility] AL ORDERABLES Performing Organization Address [facility]/ZIP Co de Phone Number [facility] [place] [address] * MRSA PCR Screen (02/18/2024 9:24 AM EST) MRSA PCR Not Detected 02/18/2024 5:10 PM EST [facility] Swab BOTH ANTERIOR NARES / Unknown Non Blood Collection / Unknown 02/18/2024 9:24 AM EST 02/18/2024 9:34 AM EST Narrative [facility] - 02/18/2024 5:10 PM EST This test was performed using the Xpert MRSA NxG test kit and is run on the [employer] GeneXpert Dx System. This test is cleared by the U.S. Food and Drug Administration for clinical use and its performance characteristics have been verified by the [employer] system and [facility] at [facility]. This test was performed using the Xpert MRSA NxG test kit and is run on the [employer] GeneXpert Dx System. This test is cleared by the U.S. Food and Drug Administration for clinical use and its performance characteristics have been verified by the [employer] system and [facility] at [facility]. Emily Raymond MD MOLECULAR ORDERABLES Performing Organization Address City/[facility]/ZIP Co de Phone Number [facility] [place] [address] * CT Angiogram Chest for Pulmonary Embolus w Contrast (02/18/2024 12:07 AM EST) WORKSTATION ID [id number] RAD Anatomical Region Laterality Modality Chest Computed Tomogra phy Impressions 02/18/2024 1:13 AM EST 1. ??No pulmonary embolism. 2. ??Persistent bilateral lower lobe collapse and partial right middle lobe collapse. 3. ??Nonspecific patchy ground glass opacities within the bilateral upper lobes. Differential can include patchy interstitial edema versus atypical infectious/inflammatory process. 4. ??Trace bilateral pleural effusions. 5. ??Trace left pneumothorax. 6. ??Unchanged diffuse osseous sclerosis. Please correlate with evidence of myelodysplastic syndrome such as mastocytosis. Preliminary report signed by: Sam Claudio DO at 02/18/2024 12:54 AM I have personally reviewed the image(s) and the resident's interpretation and agree with the findings, Clark Johnson MD at 02/18/2024 1:13 AM Thank you for letting us participate in the care of this patient. ??If you are a health care provider and have any questions regarding this report, please contact the number below. ??For patients who have questions please contact the health career specialist that requested your imaging first. ? Electronically signed by: Clark Johnson MD, [facility] ([phone]), at 02/18/2024 1:13 AM Narrative 02/18/2024 1:13 AM EST EXAMINATION: CTA CHEST PULMONARY EMBOLISM W CONTRAST CLINICAL HISTORY: POD#1 aortobifemoral bypass, new oxygen requirement (NC to BiPAP w/FiO2 70%), tachycardia TECHNIQUE: 3 mm thick axial contiguous sections were obtained through the chest via helical acquisition after the intravenous administration of contrast, 46 mL of Omnipaque 350.. Thin-section reconstructions as well as coronal and sagittal MIP reformatted images were generated to aid in evaluation. COMPARISON: CTA chest 02/04/2024. CT abdomen and pelvis 08/18/2023. FINDINGS: Pulmonary arteries: There is mild dilation of the central pulmonary artery measuring 2.8 cm. No pulmonary emboli. Ancillary findings: Interventricular septum flattening or bowing: N/A Venous contrast reflux: N/A Other cardiovascular structures: Normal cardiac size. No pericardial effusion. There is coronary artery atherosclerotic disease. Normal caliber of the thoracic aorta with atherosclerotic disease of the arch with no stenosis of the arch origins. No aortic dissection or acute aortic syndrome. Partial visualized conduit extending from the descending thoracic aorta and along the left pleural space into the visualized left upper abdomen concordant with known aortobifemoral bypass. The visualized portions of the conduit are widely patent. Pulmonary parenchyma: There is a background of apical paraseptal emphysema. There is bilateral lower lobe collapse. Patchy ground glass opacities within the bilateral upper lobes and perihilar upper lobes. Partial inferior right middle lobe collapse. Airways: The trachea and right and left mainstem bronchi are widely patent. There is abrupt truncation of bilateral lower lobe proximal segmental bronchi, either by extrinsic compression by lobar collapse or endoluminal material. Pleura: Trace anterior left pneumothorax. Small bilateral pleural effusions. Left-sided chest tube with tip directed apically. Lymph nodes: No lymphadenopathy Other mediastinal structures: Equivocal trace hiatal hernia with no adjacent inflammation. Otherwise normal esophagus. No mediastinal hematoma, collection or pneumomediastinum. Lower neck and chest wall soft tissues: Asymmetric edema within the left chest wall involving the musculature and surrounding fat. No chest wall hematoma or active extravasation. Soft tissue gas within the posterior lateral left chest wall. Upper abdomen: No significant findings. Skeletal structures: Status post posterior left seventh rib osteotomy. The lateral right first rib is absent. Diffuse abnormal sclerotic appearance of the axial and appendicular skeleton. Epidural catheter at the level of T9. Procedure Note Clark Johnson MD - 02/18/2024 EXAMINATION: CTA CHEST PULMONARY EMBOLISM W CONTRAST CLINICAL HISTORY: POD#1 aortobifemoral bypass, new oxygen requirement (NCto BiPAP w/FiO2 70%), tachycardia TECHNIQUE: 3 mm thick axial contiguous sections were obtained through thechest via helical acquisition after the intravenous administration of contrast,46 mL of Omnipaque 350.. Thin-section reconstructions as well as coronal andsagittal MIP reformatted images were generated to aid in evaluation. COMPARISON: CTA chest 02/04/2024. CT abdomen and pelvis 08/18/2023. FINDINGS: Pulmonary arteries: There is mild dilation of the central pulmonaryartery measuring 2.8 cm. No pulmonary emboli. Ancillary findings: Interventricular septum flattening or bowing: N/A Venous contrast reflux: N/A Other cardiovascular structures: Normal cardiac size. No pericardialeffusion. There is coronary artery atherosclerotic disease. Normal caliber of thethoracic aorta with atherosclerotic disease of the arch with no stenosis of thearch origins. No aortic dissection or acute aortic syndrome. Partialvisualized conduit extending from the descending thoracic aorta and along the leftpleural space into the visualized left upper abdomen concordant with known aortobifemoral bypass. The visualized portions of the conduit are widelypatent. Pulmonary parenchyma: There is a background of apical paraseptalemphysema. There is bilateral lower lobe collapse. Patchy ground glass opacitieswithin the bilateral upper lobes and perihilar upper lobes. Partial inferior rightmiddle lobe collapse. Airways: The trachea and right and left mainstem bronchi are widelypatent. There is abrupt truncation of bilateral lower lobe proximal segmentalbronchi, either by extrinsic compression by lobar collapse or endoluminalmaterial. Pleura: Trace anterior left pneumothorax. Small bilateral pleuraleffusions. Left-sided chest tube with tip directed apically. Lymph nodes: No lymphadenopathy Other mediastinal structures: Equivocal trace hiatal hernia with noadjacent inflammation. Otherwise normal esophagus. No mediastinal hematoma,collection or pneumomediastinum. Lower neck and chest wall soft tissues: Asymmetric edema within the leftchest wall involving the musculature and surrounding fat. No chest wall hematomaor active extravasation. Soft tissue gas within the posterior lateral left chest wall. Upper abdomen: No significant findings. Skeletal structures: Status post posterior left seventh rib osteotomy.The lateral right first rib is absent. Diffuse abnormal sclerotic appearanceof the axial and appendicular skeleton. Epidural catheter at the level of T9. IMPRESSION 1. No pulmonary embolism. 2. Persistent bilateral lower lobe collapse and partial right middlelobe collapse. 3. Nonspecific patchy ground glass opacities within the bilateral upperlobes. Differential can include patchy interstitial edema versus atypical infectious/inflammatory process. 4. Trace bilateral pleural effusions. 5. Trace left pneumothorax. 6. Unchanged diffuse osseous sclerosis. Please correlate with evidenceof myelodysplastic syndrome such as mastocytosis. Preliminary report signed by: Sam Claudio DO at 02/18/2024 12:54 AM I have personally reviewed the image(s) and the resident's interpretationand agree with the findings, Clark Johnson MD at 02/18/2024 1:13 AM Thank you for letting us participate in the care of this patient. If youare a health care provider and have any questions regarding this report,please contact the number below. For patients who have questions please contactthe health career specialist that requested your imaging first. Electronically signed by: Clark Johnson MD, [facility]([phone]), at 02/18/2024 1:13 AM Emily Raymond MD IMG CT ORDERABLES * APTT (02/17/2024 4:10 PM EST) Only the most recent of6 resultswithin the time period is included. Pathologist [facility] Partial Thromboplastin Time 26 25 - 37 sec 02/17/2024 4:40 PM EST [facility] Comment: The PTT is NOT appropriate for heparin monitoring. Use the Anti-Xa level for heparin monitoring (HEP UFH) or LMWH monitoring (HEP LMW). A PTT less than 37 seconds generally indicates adequate hemostasis. Blood VENOUS BLOOD SPECIMEN / Unknown Venipuncture / Unknown 02/17/2024 4:10 PM EST 02/17/2024 4:16 PM EST Emily Raymond MD HEMATOLOGY ORDERABLE S [facility] [place] [address] * (ABNORMAL) Prothrombin Time (02/17/2024 4:10 PM EST) Only the most recent of6 resultswithin the time period is included. Pathologist [facility] Prothrombin Time 12.6(H) 9.4 - 12.5 sec 02/17/2024 4:40 PM EST [facility] International Normalization Ratio 1.1 <=4.9 02/17/2024 4:40 PM EST [facility] Comment: An INR < 2.0 indicates adequate procoagulant activity for hemostasis in most patients without underlying bleeding disorders, though the INR may not adequately reflect hemostatic capacity in patients with liver disease and synthetic impairment. The recommended target INR range for therapeutic anticoagulation is 2.0 - 3.0 for most applications, though lower and higher ranges may be appropriate depending on clinical circumstances. Blood VENOUS BLOOD SPECIMEN / Unknown Venipuncture / Unknown 02/17/2024 4:10 PM EST 02/17/2024 4:16 PM EST Emily Raymond MD HEMATOLOGY ORDERABLE S Performing Organization Address City/[facility]/ZIP Co de Phone Number [facility] [place] [address] * (ABNORMAL) Fibrinogen (02/17/2024 4:10 PM EST) Only the most recent of4 resultswithin the time period is included. Fibrinogen 410(H) 200 - 393 mg/dL 02/17/2024 4:40 PM EST [facility] Comment: A fibrinogen level >100 mg/dL is adequate for hemostasis in most patients without underlying bleeding disorders. Blood VENOUS BLOOD SPECIMEN / Unknown Venipuncture / Unknown 02/17/2024 4:10 PM EST 02/17/2024 4:16 PM EST Emily Raymond MD HEMATOLOGY ORDERABLE S [facility] [place] [address] * (ABNORMAL) Blood Gas, Arterial POC (02/17/2024 3:45 PM EST) Only the most recent of5 resultswithin the time period is included. pH, Arterial 7.44 7.35 - 7.45 02/17/2024 3:46 PM [facility] PCO2, Arterial 36 35 - 45 mmHg 02/17/2024 3:46 PM [facility] PO2, Arterial 56(L) 85 - 104 mmHg 02/17/2024 3:46 PM [facility] Bicarbonate, Arterial 23.6 20.0 - 26.0 mmol/L 02/17/2024 3:46 PM [facility] Base Excess, Arterial -0.6 -3.0 - 3.0 mmol/L 02/17/2024 3:46 PM [facility] Hemoglobin, Arterial 11.4(L) 11.7 - 15.5 g/dL 02/17/2024 3:46 PM [facility] Oxyhemoglobin, Arterial 89.3(L) 94.0 - 97.0 % 02/17/2024 3:46 PM [facility] Carboxyhemoglobin , Arterial 1.2 % 02/17/2024 3:46 PM [facility] Comment: Nonsmokers: 0.5-1.5% COHB ?? Smokers: Variable ??but usually less than 10% ?? Toxic: 20-30% COHB ?? Lethal: Greater than 60% COHB Methemoglobin, Arterial 0.3 <=1.5 % 02/17/2024 3:46 PM [facility] Sodium, Arterial 133(L) 135 - 145 mmol/L 02/17/2024 3:46 PM [facility] Potassium, Arterial 4.0 3.5 - 5.0 mmol/L 02/17/2024 3:46 PM [facility] Chloride, Arterial 106 98 - 107 mmol/L 02/17/2024 3:46 PM [facility] Lactate, Arterial 1.6 0.5 - 2.2 mmol/L 02/17/2024 3:46 PM [facility] Fraction of Inspired Oxygen 60 % 02/17/2024 3:46 PM [facility] Flow Rate 40.0 L/min 02/17/2024 3:46 PM EST [facility] PF Ratio 93 Ratio 02/17/2024 3:46 PM EST [facility] Comment:PF ratio calculated using the non-temperature corrected pO2 result. IONIZED CALCIUM, ARTERIAL 1.13(L) 1.15 - 1.33 mmol/L 02/17/2024 3:46 PM EST [facility] Glucose, Arterial 115 65 - 199 mg/dL 02/17/2024 3:46 PM EST [facility] Comment:Glucose Concentratio n >=200 mg/dL plus symptoms is consistent with Diabetes Mellitus. Blood ARTERIAL BLOOD / Unknown 02/17/2024 3:45 PM EST 02/17/2024 3:46 PM EST Emily aRymond MD POINT OF CARE TEST O RDERABLES Performing Organization Address City/[facility]/ZIP Co de Phone Number [facility] [place] [address] * ABORH RECHECK (PATIENT HISTORY FOUND) (02/16/2024 8:14 AM EST) Pathologist [facility] ABOR Recheck Progress Complete 02/16/2024 12:01 PM EST [facility] Blood VENOUS BLOOD SPECIMEN / Unknown Venipuncture / Unknown 02/16/2024 8:14 AM EST 02/16/2024 9:22 AM EST Emily Raymond MD BLOOD BANK LAB ORDER MARILIN Performing Organization Address City/[facility]/ZIP Co de Phone Number [facility] [place] [place] [address] * Type and screen ([facility]/GLADYS) (02/16/2024 8:14 AM EST) Only the most recent of2 resultswithin the time period is included. Pathologist [facility] ABORH Type B NEGATIVE 02/16/2024 10:54 AM EST [facility] PATIENT HISTORY Found 02/16/2024 10:54 AM EST [facility] Expires at [id number] on: 02/19/2024 02/16/2024 10:54 AM EST [facility] ANTIBODY SCREEN AUTOMATED Negative 02/16/2024 10:54 AM EST [facility] T&S only valid at [facility] 02/16/2024 10:54 AM EST [facility] Blood VENOUS BLOOD SPECIMEN / Unknown Venipuncture / Unknown 02/16/2024 8:14 AM EST 02/16/2024 9:22 AM EST Narrative [facility] - 02/16/2024 10:54 AM EST This Type and Screen result is only valid at the [facility] Emily Raymond MD BLOOD BANK LAB ORDER MARILIN [facility] [place] [address] * XR Fluoro No Rad <1Hr - OR Use (02/16/2024 7:48 AM EST) Narrative Dicom, Auditing User - 02/16/2024 7:49 AM EST This exam is auto-finalizing. No interpretation was done. Douglas Montez MD IMG FLUORO ORDERABL ES * [id number] ONLY (02/16/2024 7:11 AM EST) Narrative Douglas Montez MD - 02/16/2024 7:11 AM EST Douglas Montez MD ? 02/16/2024 12:41 PM Procedure: ?? Neuraxial Block Post-op Pain Control Post-op pain management at the request of surgeon. Type: Epidural The patient was greeted. The sedation plan, its benefits, risks and alternatives were discussed with the patient. ??The patient has consented to the procedure. ??The medical history and chart were reviewed. ??The timeout was performed. Start time: 02/16/2024 7:11 AM End time: 02/16/2024 7:45 AM Patient Location: Operating Room (OR 19) Patient Prep Position: Prone Prep: Hand Hygiene, Hat, Mask, Sterile Gloves, Gown, Chlorhexidine and Patient Draped Injection technique: continuous Skin Anesthetic Lidocaine 1% ??5 ml Procedure Technique Level of needle insertion: T12-L1 Needle approach: paramedian Needle Type: Tuohy Gauge: 17 Needle length: 3.5 in Needle insertion depth when BLANE achieved: 5.5 cm Technique for Loss of Resistance: BLANE saline Catheter at skin depth: 15 cm Dressing/Secured with: Chlorhexidine Tegaderm, Tegaderm and Tape Number of attempts: 2 Test dose Evidence of IV or IT Injection Medications: Date/Time: ??02/16/2024 7:11 AM Events/Notes Imaging: ??epidurogram obtained and fluoroscopy guided Level of Epidural Tip via Fluoroscopy: T8-9 Iohexol 300 mgI/mL, 6 mL Events: ??inadvertent dural puncture Additional Notes: ??Initial attempt at T12-L1 yielded appropriate loss at 5 cm, however there was clear fluid aspirated and epidurogram concerning for intrathecal placement. Removed catheter attempted at same level with loss at 5.5 cm, appropriate loss of resistance with epidural spread evident on fluoro. Otherwise no complications and the patient tolerated the procedure well. Performed by: ?? Resident/NOVELTY WORKER: ? Doni Joaquin MD ?? Fellow: ?Kaden Marie, DO ?? Attending Physician: ? Douglas Montez MD Authorized by: Douglas Montez MD ?? ~~~~~~~~~~~~~~~~~~~~~~~~~~~~~~~~~~~~~~~~~~~~~~~~~~~~~~~~~~~~ Douglas Montez MD DAIRY HELPER [facility] * Heparin (unfractionated) Level (02/11/2024 4:32 AM EST) Only the most recent of6 resultswithin the time period is included. UF Heparin 0.36 IU/mL 02/11/2024 5:35 AM EST [facility] Comment: Heparin (anti-Xa) levels should be determined in a plasma sample that has been drawn 6 hours after a dose change to approximate steady-state for continuous heparin infusions. Indication specific Heparin (anti-Xa) levels based on order set selection: Acute DVT or PE prevention: ? 0.3-0.7 IU/mL Thrombosis Prevention (e.g. atrial fibrillation, earl-procedural bridging, mechanical valves): ? 0.3-0.7 IU/mL Acute Coronary Syndrome: ? 0.3-0.7 IU/mL Stroke Indications: ? 0.3-0.5 IU/mL Ultra-low intensity (select indications in cardiac surgery): ? 0.1-0.3 IU/mL Specimen drawn more than one hour prior to testing. Results may not be reliable for heparin monitoring. Result may be falsely low. Blood VENOUS BLOOD SPECIMEN / Unknown Venipuncture / Unknown 02/11/2024 4:32 AM EST 02/11/2024 5:06 AM EST Dez Pérez MD HEMATOLOGY ORDERABLE S Performing Organization Address [facility] Co de Phone Number [facility] [place] [address] * (ABNORMAL) Scan, Peripheral Blood (02/10/2024 1:51 AM EST) RBC Morphology Normal 02/10/2024 2:36 AM EST [facility] Platelet Estimate Normal Normal 024 2:36 AM EST [facility] WBC MORPHOLOGY See Comment(A ) (none) 02/10/2024 2:36 AM EST [facility] Comment:Moderate Atypical Ly mphocytes PresentVacuolated Grans Blood VENOUS BLOOD SPECIMEN / Unknown Venipuncture / Unknown 02/10/2024 1:51 AM EST 02/10/2024 1:56 AM EST Dez Pérez MD HEMATOLOGY ORDERABLE S Performing Organization Address [facility] Co de Phone Number [facility] [place] [address] * Gold Tube HOLD (02/09/2024 12:35 PM EST) Only the most recent of2 resultswithin the time period is included. Gold Hold Hold for Add-on 02/09/2024 1:40 PM EST [facility] Blood VENOUS BLOOD SPECIMEN / Unknown 02/09/2024 12:35 PM EST 02/09/2024 12:42 PM EST Pardeep Gonzales MD CHEMISTRY ORDERABLES Performing Organization Address [facility]/ZIP Co de Phone Number [facility] [place] [address] * Blue Tube HOLD (02/09/2024 12:35 PM EST) Blue Hold Hold for Add-on 02/09/2024 2:01 PM EST [facility] Blood VENOUS BLOOD SPECIMEN / Unknown 02/09/2024 12:35 PM EST 02/09/2024 12:42 PM EST Pardeep Gonzales MD HEMATOLOGY ORDERABLE S Performing Organization Address City/[facility] Co de Phone Number [facility] [place] [address] * Arterial Duplex Leg, Unil (02/09/2024 12:17 PM EST) VB Text Report Department: Vascular Surgery Lab Patient: [id number] (JT GRAYSON) CPT: 78029 Referring Physician: PARDEEP GONZALES ?? Indications: ??pain with concern for art compromise ??on CT; ? eval arterial perfusion LLE Findings: Left ?PSV (cm/s) ??EDV ?? Common femoral artery, Distal ? 33 ?? 21 ?? Profunda Femoris Artery, Proximal ? 26 ?? 13 ?? Superficial Femoral Artery, Proximal ? 340 ??173 ?? Superficial Femoral Artery, Mid ? 26 ?? 16 ?? Superficial Femoral Artery, Distal ?26 ?? 16 ?? Popliteal Artery, Above Knee ?23 ?? 16 ?? Popliteal Artery, Mid ? 27 ?? 17 ?? Popliteal Artery, Below Knee ?28 ?? 16 ?? Tibioperoneal Trunk ? 25 ?? 15 ?? Bifurcated Graft, Inflow Artery ? Location: Proximal Abdominal Aorta Bifurcated Graft, Right Limb Anastomosis ? Location: Common Femoral, Right Bifurcated Graft, Right Limb Outflow Artery ? Location: Common Femoral, Right Bifurcated Graft, Distal Left Limb ? PSV (cm/s): 0 ? EDV: 0 ? Patent: Occlusion Bifurcated Graft, Left Limb Anastomosis ? PSV (cm/s): 0 ? EDV: 0 ? Patent: Occlusion ? Location: Common Femoral, Left Bifurcated Graft, Left Limb Outflow Artery ? PSV (cm/s): 340 ? EDV: 173 ? Location: Left Superficial Femoral Interpretation: LEFT: Duplex ultrasound reveals no identifiable flow in the distal left limb and left limb anastomosis of the [id number] bypass graft which suggest occlusion. The proximal superficial femoral artery has an elevated velocity of 340 cm/s. Monophasic, low velocity flow is visualized in the common femoral, profunda femoris, mid and distal superficial femoral and popliteal arteries. Comparison: ??No previous study in our vascular lab database for comparison. Electronically Signed by: RHIANNON RAO on 2024-02-09 02:21:21 PM VASCUBASE VB Text Report End of Report VASCUBASE 02/09/2024 12:1 7 PM EST Pardeep Gonzales MD VASCULAR ORDERABLES VASCUBASE * ECHO COMPLETE (02/05/2024 12:29 PM EDT) Anatomical Region Laterality Modality Cardiac Other 02/05/2024 10:5 8 AM EDT Narrative 02/05/2024 12:36 PM EDT [address] [place] [address] ? Echocardiogram Report Name: JT GRAYSON Chhaya ?Study Date: 02/05/2024 10:58 AMBP: 121/59 mmHg : 1960 ? Height: 160 cm ? Account: [id number] Age: 63 yrs ? Weight: 56 kg Gender: Female ?BSA: 1.6 m2 Ordering Physician: KYM RODRIGUEZ Performed By: SWATHI Villafana Reason For Study: pre op testing, aortoiliac occlusive disease Exam Location: [facility]. Interpretation Summary -Left ventricular systolic function is normal. Left ventricular ejection fraction is estimated visually at 55-60%. There are no segmental wall motion abnormalities. -The right ventricle is of normal size. Right ventricular systolic function is normal. -No significant valvular disease. -No comparison study is available. Procedure Complete-[id number]. Satisfactory quality. Left Ventricle Left ventricle is of normal size. Wall thickness is normal. Left ventricular systolic function is normal. Left ventricular ejection fraction is estimated visually at 55-60%. There are no segmental wall motion abnormalities. Right Ventricle The right ventricle is of normal size. Right ventricular wall thickness is mildly increased. Right ventricular systolic function is normal. Left Atrium The left atrium is normal. There is lipomatous hypertrophy of the interatrial septum. Right Atrium The right atrium is normal. Aortic Valve The aortic valve is tricuspid. The aortic valve is mildly thickened. There is calcification of the aortic annulus. There is no aortic stenosis. There is no aortic regurgitation. Mitral Valve The mitral valve is structurally normal. The mitral valve leaflets are thickened. There is trace mitral regurgitation. Tricuspid Valve The tricuspid valve is structurally and functionally normal. There is trace tricuspid regurgitation. Pulmonic Valve The pulmonic valve appears to be structurally and functionally normal. There is no pulmonic valve regurgitation. Great Arteries The diameter at the level of the sinuses of Valsalva is 3.2 cm. The maximum diameter of the proximal ascending aorta is 2.9 cm. No abnormalities of the pulmonary artery are identified. Venous Inferior vena cava is normal in size. Inferior vena cava collapse greater than 50% with respiration. Pericardium/Pleural The pericardium appears normal. Hemodynamics Pulmonary artery hypertension could not be assessed due to inadequate tricuspid regurgitation jet. The estimated right atrial pressure is 3mmHg. Left ventricular filling pressure is normal. There is Grade I LV diastolic dysfunction (abnormal relaxation with normal left ventricular filling pressure). ? 2D Measurements ? Volumes ?IVSd: 0.95 cm ?LAV(MOD-bp) Indexed: ?LVIDd: 4.5 cm ?LVIDs: 3.4 cm ?19.1 ml/m2 ? RA A4Cs_phl: 16.3 cm2 ?LVPWd: 0.93 cm ? SV(LVOT): 59.1 ml ?RWT: 0.41 {ratio} ?LV mass(C)d: 141.4 grams ? SI(LVOT): 37.5 ml/m2 ?LV mass(C)dI: 89.6 grams/m2 ?Ao root diam: 3.2 cm ?Ao root diam index: 2.0 ?asc Aorta Diam: 2.9 cm ?LVOT diam: 2.0 cm ?TAPSE_phl: 2.7 cm Doppler LV V1 VTI: 19.5 cm Ao V2 VTI: 21.5 cm Ao Max Otilio: 113.8 cm/sec Ao valve max: 5.2 mmHg Ao valve mean: 2.1 mmHg MV E max otilio: 74.4 cm/sec MV A max otilio: 79.4 cm/sec MV E/A: 0.94 Lat Peak E' Otilio: 5.3 cm/sec E/e' (lat): 14.1 Med Peak E' Otilio: 5.7 cm/sec E/e' (med): 13.1 E/e' Average: 13.6 DENVER(I,D): 2.8 cm2 Dimensionless index Aov: 0.91 I ?WMSI = 1.00 ? % Normal = 100 ?Segments ??Size X - Cannot ?2 - ?4 - ?1-2 ? small Interpret ?1 - Normal ?? Hypokinetic 3 - Akinetic Dyskinetic ?? 3-5 ? moderate 5 - ? 6-14 ?large Aneurysmal ?15-16 ?? diffuse Procedure Note Main Mcclain MD - 02/05/2024 [address] [place] [address] Echocardiogram Report Name: JT GRAYSON Study Date: 0:58 AMBP: 121/59 mmHg : 1960 Height: 160 cm Account: [id number] Age: 63 yrs Weight: 56 kg Gender: Female BSA: 1.6 m2 Ordering Physician: KYM RODRIGUEZ Performed By: SWATHI Villafana Reason For Study: pre op testing, aortoiliac occlusive disease Exam Location: [facility]. Interpretation Summary -Left ventricular systolic function is normal. Left ventricular ejectionfraction is estimated visually at 55-60%. There are no segmental wall motionabnormalities. -The right ventricle is of normal size. Right ventricular systolicfunction is normal. -No significant valvular disease. -No comparison study is available. Procedure Complete-[id number]. Satisfactory quality. Left Ventricle Left ventricle is of normal size. Wall thickness is normal. Leftventricular systolic function is normal. Left ventricular ejection fraction isestimated visually at 55-60%. There are no segmental wall motion abnormalities. Right Ventricle The right ventricle is of normal size. Right ventricular wall thickness ismildly increased. Right ventricular systolic function is normal. Left Atrium The left atrium is normal. There is lipomatous hypertrophy of theinteratrial septum. Right Atrium The right atrium is normal. Aortic Valve The aortic valve is tricuspid. The aortic valve is mildly thickened. Thereis calcification of the aortic annulus. There is no aortic stenosis. There isno aortic regurgitation. Mitral Valve The mitral valve is structurally normal. The mitral valve leaflets arethickened. There is trace mitral regurgitation. Tricuspid Valve The tricuspid valve is structurally and functionally normal. There istrace tricuspid regurgitation. Pulmonic Valve The pulmonic valve appears to be structurally and functionally normal.There is no pulmonic valve regurgitation. Great Arteries The diameter at the level of the sinuses of Valsalva is 3.2 cm. Themaximum diameter of the proximal ascending aorta is 2.9 cm. No abnormalities ofthe pulmonary artery are identified. Venous Inferior vena cava is normal in size. Inferior vena cava collapse greaterthan 50% with respiration. Pericardium/Pleural The pericardium appears normal. Hemodynamics Pulmonary artery hypertension could not be assessed due to inadequatetricuspid regurgitation jet. The estimated right atrial pressure is 3mmHg. Leftventricular filling pressure is normal. There is Grade I LV diastolic dysfunction(abnormal relaxation with normal left ventricular filling pressure). 2D Measurements Volumes IVSd: 0.95 cm LAV(MOD-bp)Indexed: LVIDd: 4.5 cm LVIDs: 3.4 cm 19.1 ml/m2 RA A4Cs_phl: 16.3cm2 LVPWd: 0.93 cm SV(LVOT): 59.1ml RWT: 0.41 {ratio} LV mass(C)d: 141.4 grams SI(LVOT): 37.5ml/m2 LV mass(C)dI: 89.6 grams/m2 Ao root diam: 3.2 cm Ao root diam index: 2.0 asc Aorta Diam: 2.9 cm LVOT diam: 2.0 cm TAPSE_phl: 2.7 cm Doppler LV V1 VTI: 19.5 cm Ao V2 VTI: 21.5 cm Ao Max Otilio: 113.8 cm/sec Ao valve max: 5.2 mmHg Ao valve mean: 2.1 mmHg MV E max otilio: 74.4 cm/sec MV A max otilio: 79.4 cm/sec MV E/A: 0.94 Lat Peak E' Otilio: 5.3 cm/sec E/e' (lat): 14.1 Med Peak E' Otilio: 5.7 cm/sec E/e' (med): 13.1 E/e' Average: 13.6 [place](I,D): 2.8 cm2 Dimensionless index Aov: 0.91 I WMSI = 1.00 % Normal = 100 SegmentsSize X - Cannot 2 - 4 - 1-2small Interpret 1 - Normal Hypokinetic 3 - Akinetic Dyskinetic 3-5moderate 5 - 6-14large Aneurysmal 15-16diffuse Kym Rodriguez TOOL OR DIE DRAWING CHECKER ECHO ORDERABLES * Bedside spirometry WITHOUT bronchodialator (02/05/2024 9:40 AM EDT) FVC Actual Pre-BD 1.93 L COMPAS PFT FVC Pre-BD % of Predicted 65 % COMPAS PFT FVC Predicted 2.95 L COMPAS PFT FVC Lower Limits of Normal 2.2 L COMPAS PFT FVC Pre-BD Z-Score -2.28 COMPAS PFT FEV1 Actual Pre-BD 1.52 L COMPAS PFT FEV1 Pre-BD % of Predicted 66 % COMPAS PFT FEV1 Predicted 2.32 L COMPAS PFT FEV1 Lower Limits of Normal 1.73 L COMPAS PFT FEV1 Pre-BD Z-Score -2.22 COMPAS PFT FEV1 / FVC Actual Pre-BD 79 % COMPAS PFT FEV1/FVC Pre-BD Z-Score 0 COMPAS PFT [id number] Actual Pre-BD 1.49 % COMPAS PFT [id number] Predicted 2.07 % COMPAS PFT [id number] Pre-BD % of Predicted 72 % COMPAS PFT [id number] Pre-BD Z-Score -0.84 COMPAS PFT Narrative COMPAS PFT - 02/05/2024 9:40 AM EDT FINDINGS: FEV1 and FVC are reduced, FEV1/VC is normal. IMPRESSION: Spirometry suggests restriction. The presence of restriction or air trapping can be tested by measurement of lung volumes. Procedure Note Oj Mccoy MD - 02/05/2024 FINDINGS: FEV1 and FVC are reduced, FEV1/VC is normal. IMPRESSION: Spirometry suggests restriction. The presence of restrictionor air trapping can be tested by measurement of lung volumes. Mikki Damon TOOL OR DIE DRAWING CHECKER PFT ORDERABLES COMPAS PFT * CT Angiogram Chest (Non-Coronary) w Contrast (02/04/2024 6:45 PM EDT) WORKSTATION ID [id number] RAD Anatomical Region Laterality Modality Chest Computed Tomogra phy Impressions 02/04/2024 7:00 PM EDT 1. Mild atherosclerosis. No aortic aneurysm or dissection. 2. Diffusely abnormal appearing consistent with history of mastocytosis Thank you for letting us participate in the care of this patient. ??If you are a health care provider and have any questions regarding this report, please contact the number below. ??For patients who have questions please contact the health career specialist that requested your imaging first. ? Electronically signed by: Charissa Alcala MD, [facility] ([phone]), at 02/04/2024 7:00 PM Narrative 02/04/2024 7:00 PM EDT EXAMINATION: CT ANGIOGRAM CHEST (NON-CORONARY)W CONTRAST CLINICAL HISTORY: Hx of aortobifemoral bypass looking at entire chest vasculature TECHNIQUE: Helical CT angiogram of the chest was performed following the intravenous administration of contrast. 15 mm Omnipaque 350 contrast. Maximum intensity projection (MIP) were reformatted. 3D images were generated on an independent workstation. COMPARISON: CT angiography abdomen, pelvis and lower extremity runoff February 04, 2024 FINDINGS: VASCULAR Heart: Normal size. No pericardial effusion. Aorta: No stenosis, dissection or aneurysm. Mild calcified plaque. Great vessels: No stenosis or aneurysm. NON-VASCULAR Lungs and large airways: Mild dependent atelectasis and small subpleural blebs at the apices. Pleura: No effusion or pneumothorax. Mediastinum and ryan: No mass or adenopathy. Multiple small pretracheal lymph nodes measure less than 4 mm in short axis diameter. Limited views of the upper abdomen: No significant findings. Osseous structures: No fracture. Diffuse patchy lucent and sclerotic marrow. Procedure Note Charissa Alcala MD - 02/04/2024 EXAMINATION: CT ANGIOGRAM CHEST (NON-CORONARY)W CONTRAST CLINICAL HISTORY: Hx of aortobifemoral bypass looking at entire chest vasculature TECHNIQUE: Helical CT angiogram of the chest was performed following the intravenous administration of contrast. 15 mm Omnipaque 350 contrast.Maximum intensity projection (MIP) were reformatted. 3D images were generated lissa independent workstation. COMPARISON: CT angiography abdomen, pelvis and lower extremity runoffOct2023 FINDINGS: VASCULAR Heart: Normal size. No pericardial effusion. Aorta: No stenosis, dissection or aneurysm. Mild calcified plaque. Great vessels: No stenosis or aneurysm. NON-VASCULAR Lungs and large airways: Mild dependent atelectasis and small subpleuralblebs at the apices. Pleura: No effusion or pneumothorax. Mediastinum and ryan: No mass or adenopathy. Multiple small pretracheallymph nodes measure less than 4 mm in short axis diameter. Limited views of the upper abdomen: No significant findings. Osseous structures: No fracture. Diffuse patchy lucent and scleroticmarrow. IMPRESSION 1. Mild atherosclerosis. No aortic aneurysm or dissection. 2. Diffusely abnormal appearing consistent with history of mastocytosis Thank you for letting us participate in the care of this patient. If youare a health care provider and have any questions regarding this report,please contact the number below. For patients who have questions please contactthe health career specialist that requested your imaging first. Electronically signed by: Charissa Alcala MD, [facility]([phone]), at 02/04/2024 7:00 PM Mar Alvares MD IMG CT ORDERABLES * MARGIE, legs, multiple levels (02/04/2024 4:03 PM EDT) VB Text Report Department: Vascular Surgery Lab Patient: [id number] (JT GRAYSON) CPT: 12110 Referring Physician: MAR ALVARES ?? Phone: Indications: Rest pain in left leg, hx of aorta bifemoral bypass graft, ? flow Diabetes mellitus: No Findings: Right ?Pressure (mm Hg) ?? MARGIE ??Waveform ?TBI ?? Brachial Artery ?138 ? Common Femoral Artery ?Ashe-Biphasic ? Popliteal Artery ? Ashe-Biphasic ? Dorsalis Pedis (Ankle) Artery ?62 ?0.43 ??Ashe-Biphasic ? Posterior Tibial (Ankle) Artery ??62 ?0.43 ??Ashe-Biphasic ? Great Toe ?51 ? 0.36 ?? Left ? Pressure (mm Hg) ?? MARGIE ??Waveform ? TBI ?? Brachial Artery ?143 ? Common Femoral Artery ?Monophasic ? Popliteal Artery ? Monophasic ? Dorsalis Pedis (Ankle) Artery ?20 ?0.14 ??Monophasic ? Posterior Tibial (Ankle) Artery ??22 ?0.15 ??Monophasic ? Great Toe ?0 ? 0.00 ?? Interpretation: RIGHT: Moderately severe lower extremity arterial occlusive disease. Toe-brachial index indicates presence of moderate arterial occlusive disease in the foot. 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 LEFT: Severe lower extremity arterial occlusive disease. Toe waveform is absent. 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 NOTE: Hypertension is present based on Doppler derived systolic brachial blood pressure. Comparison: ??No previous study in our vascular lab database for comparison. Notification: Dr. Matt Dias was informed of these preliminary findings. Electronically Signed by: JEANNA CARREON M.D. on 2024-02-08 02:27:47 PM VASCUBASE VB Text Report End of Report VASCUBASE 02/04/2024 4:03 PM EDT Mar Alvares MD VASCULAR ORDERABLES VASCUBASE * CT Angiogram Aortic Lower Extremity Runoff (02/04/2024 3:51 PM EDT) [employer] Signature WORKSTATION ID [id number] RAD Anatomical Region Laterality Modality Abdomen Computed Tomogra phy Impressions 02/04/2024 4:09 PM EDT 1. ??Status post aortobiiliac bypass. 2. 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 3. 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 ??Interval occlusion of the left bypass limb. 4. ??Reconstitution of the femoral vasculature bilaterally via collaterals. Otherwise, widely patent three-vessel runoff of the bilateral lower extremity. 5. 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 ??Per ACR white paper guidelines, follow-up MRI of the abdomen is recommended in one year. 6. ??Diffuse heterogeneity of osseous structures with increased sclerosis. Diffuse metastatic disease can be considered. ??Alternatively, other etiologies including renal osteodystrophy or other metabolic etiologies can be considered. Thank you for letting us participate in the care of this patient. ??If you are a health care provider and have any questions regarding this report, please contact the number below. ??For patients who have questions please contact the health career specialist that requested your imaging first. ? Electronically signed by: Jeanna Fernandes DO, [facility] ([phone]), at 02/04/2024 4:09 PM Narrative 02/04/2024 4:09 PM EDT EXAMINATION: CT ANGIOGRAM AORTA LOWER EXTREMITY RUNOFF CLINICAL HISTORY: Intermittent cold left foot and claudication hx of revascularization surgery in 2012 TECHNIQUE: Helical CTA of the abdomen, pelvis and bilateral lower extremities following the intravenous administration of contrast. The patient received 150 mL Omnipaque 350 intravenous contrast. Maximum intensity projection (MIP) were reformatted. 3-D images were generated on an independent workstation. COMPARISON: Correlation is made to CT of the abdomen and pelvis dated August 18, 2023. FINDINGS: Transportation Escort Images: Noncontributory. VASCULAR FINDINGS Abdominal aorta: There is been prior aorto bifemoral bypass. ??The [place] aorta occludes immediately inferior to the bypass graft. ??The bypass graft is now occluded in both limbs (previously only the right limb was occluded). Celiac: No stenosis. Superior mesenteric artery: No stenosis. 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 Left renal artery: No stenosis. Inferior mesenteric artery: No stenosis. RIGHT LOWER EXTREMITY Common iliac artery: Occluded. Internal iliac artery: Reconstituted via retrograde flow from the external iliac artery. External iliac artery: Reconstituted via retrograde flow. Common femoral artery: Patent. Profunda femoris artery: No stenosis. Superficial femoral artery: No stenosis. Popliteal artery: No stenosis. Anterior tibial artery: No stenosis. Tibio-peroneal trunk: No stenosis. Posterior tibial artery: No stenosis. Peroneal artery: No stenosis. Dorsalis pedis: No stenosis. Plantar arteries: No stenosis. LEFT LOWER EXTREMITY Common iliac artery: Occluded. Internal iliac artery: Diminutive but opacified via retrograde flow. External iliac artery: Diminutive but opacified via retrograde flow. Common femoral artery: Occluded. Profunda femoris artery: Reconstituted by collateral flow at its origin. Superficial femoral artery: Occluded at its origin with reconstitution by collateral flow approximately 1 cm below its origin. Popliteal artery: No stenosis. Anterior tibial artery: No stenosis. Tibio-peroneal trunk: No stenosis. Posterior tibial artery: No stenosis. Peroneal artery: No stenosis. Dorsalis pedis: No stenosis. Plantar arteries: No stenosis. NON-VASCULAR FINDINGS Lower chest: Visualized structures within the inferior thorax are within normal limits. Liver: Normal. Bile ducts: Normal. Gallbladder: The gallbladder is surgically absent with surgical clips within the gallbladder fossa. Pancreas: There is a 5 mm hypoattenuating lesion within the head of the pancreas, unchanged from August 18, 2023. ??There is also a second 3 mm hypoattenuating lesion more inferiorly within the pancreatic head, also unchanged. ??There is no pancreatic ductal dilatation. Spleen: Normal. Adrenals: Normal. Kidneys: Normal. Urinary Bladder: Normal. Lymph Nodes: There are no pathologically enlarged lymph nodes. Bowel: Limited evaluation of the distal esophagus is unremarkable. ??The stomach is under distended, limiting evaluation. ??The descending duodenum is redundant. The duodenum, however, does cross midline in expected position. ??The colon is expected position. ??The ileocecal valve is within normal limits. ??The appendix is surgically absent. ??The remainder of the large bowel is within normal limits. Peritoneum and retroperitoneum: No hemorrhage. No pneumoperitoneum. No fluid collection or mesenteric inflammation. Abdominal wall: Normal. Reproductive organs: The uterus is surgically absent. ??Limited evaluation of the adnexa is within normal limits. Osseous structures: There is diffuse heterogeneity of the osseous structures with relative increased sclerosis diffusely. Procedure Note Jeanna Fernandes, DO - 02/04/2024 EXAMINATION: CT ANGIOGRAM AORTA LOWER EXTREMITY RUNOFF CLINICAL HISTORY: Intermittent cold left foot and claudication hx of revascularization surgery in 2012 TECHNIQUE: Helical CTA of the abdomen, pelvis and bilateral lowerextremities following the intravenous administration of contrast. The patient dojlqcyt282 mL Omnipaque 350 intravenous contrast. Maximum intensity projection (MIP)were reformatted. 3-D images were generated on an independent workstation. COMPARISON: Correlation is made to CT of the abdomen and pelvis dated 2023. FINDINGS: Transportation Escort Images: Noncontributory. VASCULAR FINDINGS Abdominal aorta: There is been prior aorto bifemoral bypass. The nativeaorta occludes immediately inferior to the bypass graft. The bypass graft isnow occluded in both limbs (previously only the right limb was occluded). Celiac: No stenosis. Superior mesenteric artery: No stenosis. 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 Left renal artery: No stenosis. Inferior mesenteric artery: No stenosis. RIGHT LOWER EXTREMITY Common iliac artery: Occluded. Internal iliac artery: Reconstituted via retrograde flow from the externaliliac artery. External iliac artery: Reconstituted via retrograde flow. Common femoral artery: Patent. Profunda femoris artery: No stenosis. Superficial femoral artery: No stenosis. Popliteal artery: No stenosis. Anterior tibial artery: No stenosis. Tibio-peroneal trunk: No stenosis. Posterior tibial artery: No stenosis. Peroneal artery: No stenosis. Dorsalis pedis: No stenosis. Plantar arteries: No stenosis. LEFT LOWER EXTREMITY Common iliac artery: Occluded. Internal iliac artery: Diminutive but opacified via retrograde flow. External iliac artery: Diminutive but opacified via retrograde flow. Common femoral artery: Occluded. Profunda femoris artery: Reconstituted by collateral flow at its origin. Superficial femoral artery: Occluded at its origin with reconstitutionby collateral flow approximately 1 cm below its origin. Popliteal artery: No stenosis. Anterior tibial artery: No stenosis. Tibio-peroneal trunk: No stenosis. Posterior tibial artery: No stenosis. Peroneal artery: No stenosis. Dorsalis pedis: No stenosis. Plantar arteries: No stenosis. NON-VASCULAR FINDINGS Lower chest: Visualized structures within the inferior thorax are withinnormal limits. Liver: Normal. Bile ducts: Normal. Gallbladder: The gallbladder is surgically absent with surgical clipswithin the gallbladder fossa. Pancreas: There is a 5 mm hypoattenuating lesion within the head of the pancreas, unchanged from August 18, 2023. There is also a second 3 mm hypoattenuating lesion more inferiorly within the pancreatic head, also unchanged. There is no pancreatic ductal dilatation. Spleen: Normal. Adrenals: Normal. Kidneys: Normal. Urinary Bladder: Normal. Lymph Nodes: There are no pathologically enlarged lymph nodes. Bowel: Limited evaluation of the distal esophagus is unremarkable. Thestomach is under distended, limiting evaluation. The descending duodenum isredundant. The duodenum, however, does cross midline in expected position. The colonis expected position. The ileocecal valve is within normal limits. Theappendix is surgically absent. The remainder of the large bowel is within normallimits. Peritoneum and retroperitoneum: No hemorrhage. No pneumoperitoneum. Nofluid collection or mesenteric inflammation. Abdominal wall: Normal. Reproductive organs: The uterus is surgically absent. Limited evaluationof the adnexa is within normal limits. Osseous structures: There is diffuse heterogeneity of the osseousstructures with relative increased sclerosis diffusely. IMPRESSION 1. Status post aortobiiliac bypass. 2. 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 3. 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 Interval occlusion of theleft bypass limb. 4. Reconstitution of the femoral vasculature bilaterally via collaterals. Otherwise, widely patent three-vessel runoff of the bilateral lowerextremity. 5. Dual pancreatic lesions, indeterminate, but favored to represent tinyBranch Duct - Intraductal Papillary Mucinous Neoplasms (IPMNs). Per ACR whitepaper guidelines, follow-up MRI of the abdomen is recommended in one year. 6. Diffuse heterogeneity of osseous structures with increased sclerosis. Diffuse metastatic disease can be considered. Alternatively, otheretiologies including renal osteodystrophy or other metabolic etiologies can beconsidered. Thank you for letting us participate in the care of this patient. If youare a health care provider and have any questions regarding this report,please contact the number below. For patients who have questions please contactthe health career specialist that requested your imaging first. Electronically signed by: Jeanna Fernandes DO, [facility]([phone]), at 02/04/2024 4:09 PM Mar Alvares MD IMG CT ORDERABLES * Bilirubin, Direct (02/04/2024 2:39 PM EDT) [facility] Bilirubin, Direct <0.2 0.0 - 0.3 mg/dL 02/04/2024 6:28 PM EDT [facility] Blood VENOUS BLOOD SPECIMEN / Unknown Venipuncture / Unknown 02/04/2024 2:39 PM EDT 02/04/2024 2:54 PM EDT Edmund Truong MD CHEMISTRY ORDERABL ES [facility] [place] [address] * (ABNORMAL) Comprehensive metabolic panel (02/04/2024 2:39 PM EDT) Only the most recent of2 resultswithin the time period is included. Pathologist [facility] Glucose 77 65 - 199 mg/dL 02/04/2024 3:31 PM EDT [facility] Comment:Glucose Concentratio n >=200 mg/dL plus symptoms is consistent with Diabetes Mellitus. Blood Urea Nitrogen 7(L) 8 - 18 mg/dL 02/04/2024 3:31 PM EDT [facility] Creatinine 0.74 0.70 - 1.20 mg/dL 02/04/2024 3:31 PM EDT [facility] Sodium 140 135 - 145 mMol/L 02/04/2024 3:[address] [facility] Potassium 3.8 3.5 - 5.0 mMol/L 02/04/2024 3:[address] [facility] Chloride 104 98 - 107 mMol/L 02/04/2024 3:[address] [facility] Carbon Dioxide 24 22 - 31 mMol/L 02/04/2024 3:[address] [facility] Anion Gap 12 5 - 15 mMol/L 02/04/2024 3:[address] [facility] Calcium 9.5 8.5 - 10.5 mg/dL 02/04/2024 3:[address] [facility] Protein, Total 7.3 6.1 - 8.0 g/dL 02/04/2024 3:[address] [facility] Albumin 4.2 3.2 - 5.2 g/dL 02/04/2024 3:[address] [facility] Aspartate Aminotransferase 13 <=30 unit/L 02/04/2024 3:[address] [facility] Alanine Aminotransferase 18 0 - 30 unit/L 02/04/2024 3:[address] [facility] Alkaline Phosphatase 94 35 - 105 unit/L 02/04/2024 3:[address] [facility] Bilirubin, Total 0.3 <=1.3 mg/dL 02/04/2024 3:[address] [facility] Est Glomerular Filtration Rate - Female 91 mL/min/1. 73 m?? 02/04/2024 3:[address] [facility] Comment: This patient's estimated GFR was calculated using the 2020 CKD-EPI equation. The estimated GFR can vary from the measured GFR by up to 30% in the absence of rapidly changing kidney function. Assessment of the estimated GFR is not appropriate when creatinine concentrations are rapidly changing. For clinical situations in which a more precise estimate of GFR is necessary, consider alternative methods of GFR estimation such as a 24-hour urine creatinine clearance. Assignment of CKD stage 1 - 5 for patients with an eGFR near the transition point between stages may be based on clinical assessment of muscle mass and symptoms in addition to eGFR. Link: eGFR Calculator [employer] Blood VENOUS BLOOD SPECIMEN / Unknown Venipuncture / Unknown 02/04/2024 2:39 PM EDT 02/04/2024 2:54 PM EDT Mar Alvares MD CHEMISTRY ORDERABLE S [facility] [place] [address] * Duplex for DVT, Leg, Unilat (02/04/2024 2:32 PM EDT) VB Text Report Department: Vascular Surgery Lab Patient: [id number] (JT GRAYSON) CPT: [id number] Referring Physician: MAR ALVARES ?? Phone: Indications: ??Left calf pain, ? DVT. ??History ABF bypass graft Findings: LEFT: Patent common femoral vein and popliteal vein with spontaneous, respirophasic Doppler waveforms that respond normally to augmentation maneuvers. The common femoral vein, saphenofemoral junction, femoral vein through the thigh and popliteal vein are fully compressible. Patent posterior tibial and peroneal veins with no evidence of thrombus. Incidental Finding: There is no identifiable flow in the distal left limb of the [id number]-[id number] bypass graft. There is low velocity, monophasic flow in what is suspected to be the skull valley common femoral artery, but unable to determine if this is patent through the bifurcation due to calcified plaque at this location. The proximal superficial femoral artery is patent with elevated velocities of 321 cm/s noted at/near the bifurcation. There appears to be retrograde flow in one artery near the bifurcation, which may be supplying flow the superficial femoral and/or profunda femoris artery. Interpretation: LEFT: No evidence of lower extremity deep venous thrombosis. Incidental finding of occluded distal left limb of the [id number] bypass graft. There does appear to be flow within the skull valley common femoral artery with reconstitution of flow at the femoral bifurcation. Comparison: ??No previous study in our vascular lab database for comparison. Electronically Signed by: JEANNA CARREON M.D. on 2024-02-04 03:56:38 PM [facility] VB Text Report End of Report [facility] 02/04/2024 2:32 PM EDT Mar Alvares MD VASCULAR ORDERABLES [facility] * HCV Reflex Hold (01/28/2024 9:19 AM EDT) HCV Hold Hold for Add-on 01/28/2024 11:01 AM EDT [facility] Blood VENOUS BLOOD SPECIMEN / Unknown Venipuncture / Unknown 01/28/2024 9:19 AM EDT 01/28/2024 9:19 AM EDT Edmund Truong MD CHEMISTRY ORDERABL ES Performing Organization Address [facility] Co de Phone Number [facility] [place] [address] * Hepatitis C Antibody with Reflex (01/28/2024 9:19 AM EDT) Pathologist [facility] Hepatitis C Antibody Negative Negative 01/28/2024 10:20 AM EDT [facility] Blood VENOUS BLOOD SPECIMEN / Unknown Venipuncture / Unknown 01/28/2024 9:19 AM EDT 01/28/2024 9:19 AM EDT Edmund Truong MD CHEMISTRY ORDERABL ES Performing Organization Address [facility] Co de Phone Number [facility] [place] [address] * Misc [facility] Test (01/28/2024 9:19 AM EDT) Misc [facility] Result SEE NOTE 02/03/20 1:42 AM EDT [facility] Comment: Test name ? Result Flag Units ??RefIntvl ?? Procollagen I Intact N-Terminal Propep ?44 ?ug/L ? Premenopausal: ??20 - 101 ug/L Postmenopausal: 16 - 96 ug/L Performed By: [employer] [address] [place] [address] Accounts Receivable Associate: Clark Arshad MD, PhD CLIA Number: [id number] Blood Venipuncture / Unknown 01/28/2024 9:19 AM EDT 01/28/2024 9:20 AM EDT Edmund Truong MD LAB SEND OUT ORDER MARILIN REF LAB [employer] [address] [place] [address], [facility] * Collagen Type I C-Telopeptide (01/28/2024 9:19 AM EDT) Pathologist [facility] C-Telopeptide (AUGUST) 474 pg/mL 01/29/2024 7:44 PM EDT [facility] Comment: REFERENCE VALUE 148-967 (18-29 y) 150-635 (30-39 y) 131-670 (40-49 y) 183-1060 (50-59 y) 171-970 (60-69 y) 152-858 (>70 y) 136-689 (Premenopausal) 177-1015 (Postmenopausal) Flagging is based on the age-specific reference interval and not menopausal status. Blood VENOUS BLOOD SPECIMEN / Unknown Venipuncture / Unknown 01/28/2024 9:19 AM EDT 01/28/2024 9:19 AM EDT Narrative REF LAB [facility] 01/29/2024 7:44 PM EDT Test Performed by: [facility] [address] [place] [address] Beauty Counselor: Felipe Arroyo Ph.D.; CLIA# [id number] Edmund Truong MD LAB SEND OUT ORDER MARILIN Performing Organization Address City/[facility]/ZIP Co de Phone Number REF LAB [facility] [address] [place] [address] * [facility] Test-Moselle (01/28/2024 9:19 AM EDT) Only the most recent of2 resultswithin the time period is included. [facility] Result (May) SEE COMMENTS 01/29/2024 5:46 PM EDT [facility] Comment: Test ?Result ? Flag ??Unit ?? RefValue Osteocalcin, S ?25 ? ng/mL ??9 - 42 ?Test Performed by: ?[facility] ?[address] [place] [address] ?Beauty Counselor: Felipe Arroyo Ph.D.; CLIA# [id number] Blood Venipuncture / Unknown 01/28/2024 9:19 AM EDT 01/28/2024 9:20 AM EDT Edmund Truong MD LAB SEND OUT ORDER MARILIN Performing Organization Address [facility] Co de Phone Number [facility] [address] [place], [place] [address] * (ABNORMAL) Tryptase (01/28/2024 9:19 AM EDT) Pathologist [facility] Tryptase >200.0(H) <=8.4 ng/ml 01/29/2024 10:19 AM EDT [facility] Blood VENOUS BLOOD SPECIMEN / Unknown Venipuncture / Unknown 01/28/2024 9:19 AM EDT 01/28/2024 9:19 AM EDT Edmund Truong MD CHEMISTRY ORDERABL ES Performing Organization Address City/[facility]/ZIP Co de Phone Number [facility] [place] [address] * Hepatitis B Core Antibody, IgM (01/28/2024 9:19 AM EDT) Pathologist [facility] Hepatitis B Core IgM Negative Negative 01/28/2024 10:20 AM EDT [facility] Blood VENOUS BLOOD SPECIMEN / Unknown Venipuncture / Unknown 01/28/2024 9:19 AM EDT 01/28/2024 9:19 AM EDT Edmund Truong MD CHEMISTRY ORDERABL ES Performing Organization Address City/[facility]/ZIP Co de Phone Number [facility] [place] [address] * HIV Screen, 4th Generation ([facility]/CGP/APD/NLH) (01/28/2024 9:19 AM EDT) [facility] HIV Ab/Ag Screen Negative Negative 01/28/2024 10:20 AM EDT [facility] Comment:Low Risk of HIV Infe ction. Blood VENOUS BLOOD SPECIMEN / Unknown Venipuncture / Unknown 01/28/2024 9:19 AM EDT 01/28/2024 9:19 AM EDT Narrative [facility] - 01/28/2024 10:20 AM EDT This 4th Generation HIV test screens for the presence of the HIV-1 p24 antigen as well as antibodies reactive against HIV-1 and HIV-2. A negative screen does not rule out an acute HIV infection. If acute HIV infection is suspected ??testing should be repeated in 2 - 3 weeks or HIV nucleic acid testing performed. Edmund Truogn MD CHEMISTRY ORDERABL ES Performing Organization Address [facility] Co de Phone Number [facility] [place] [address] * Hepatitis B Surface Antibody (01/28/2024 9:19 AM EDT) Hepatitis B Surface Antibody, Quantitative <3.5 IU/L 01/28/2024 1:03 PM EDT [facility] Comment: Unvaccinated: < 8.5 IU/L Vaccinated: >= 11.5 IU/L Hepatitis B Surface Antibody Negative 01/28/2024 1:03 PM EDT [facility] Comment: Patient is presumed to be not vaccinated or immune to HBV infection. Expected Results: Vaccinated: Positive Unvaccinated: Negative Blood VENOUS BLOOD SPECIMEN / Unknown Venipuncture / Unknown 01/28/2024 9:19 AM EDT 01/28/2024 9:19 AM EDT Edmund Truong MD CHEMISTRY ORDERABL ES Performing Organization Address [facility] Co de Phone Number [facility] [place] [address] * Hepatitis B Surface Antigen (01/28/2024 9:19 AM EDT) Hepatitis B Surface Antigen Negative Negative 01/28/2024 10:20 AM EDT [facility] Blood VENOUS BLOOD SPECIMEN / Unknown Venipuncture / Unknown 01/28/2024 9:19 AM EDT 01/28/2024 9:19 AM EDT Edmund Truong MD CHEMISTRY ORDERABL ES Performing Organization Address [facility] Co de Phone Number [facility] [place] [address] * Uric acid (01/28/2024 9:19 AM EDT) Uric Acid 4.5 2.5 - 6.5 mg/dL 01/28/2024 10:09 AM EDT [facility] Blood VENOUS BLOOD SPECIMEN / Unknown Venipuncture / Unknown 01/28/2024 9:19 AM EDT 01/28/2024 9:19 AM EDT Edmund Truong MD CHEMISTRY ORDERABL ES [facility] [place] [address] * Lactate Dehydrogenase (01/28/2024 9:19 AM EDT) Lactate Dehydrogenase 153 110 - 220 unit/L 01/28/2024 10:09 AM EDT [facility] Blood VENOUS BLOOD SPECIMEN / Unknown Venipuncture / Unknown 01/28/2024 9:19 AM EDT 01/28/2024 9:19 AM EDT Edmund Truong MD CHEMISTRY ORDERABL ES Performing Organization Address City/[facility]/ZIP Co de Phone Number [facility] [place] [address] * Gamma GT (01/28/2024 9:19 AM EDT) Gamma Glutamyl Transferase 14 5 - 36 unit/L 01/28/2024 12:36 PM EDT [facility] Blood VENOUS BLOOD SPECIMEN / Unknown Venipuncture / Unknown 01/28/2024 9:19 AM EDT 01/28/2024 9:19 AM EDT Edmund Truong MD CHEMISTRY ORDERABL ES Performing Organization Address City/[facility]/ZIP Co de Phone Number [facility] [place] [address] * MRI Abdomen and Pelvis WWO Contrast (01/28/2024 6:35 AM EDT) WORKSTATION ID [id number] RAD Anatomical Region Laterality Modality Abdomen Magnetic Resonan ce Addenda Addendum by Douglas Le MD on 01/29/2024 4:58 PM EDT --------ADDENDUM #1-------- Addendum: Examination is reviewed at request. The volume measurements for the liver and spleen as given in the original report are within normal limits for patient's size. Thank you for letting us participate in the care of this patient. ??If you are a health care provider and have any questions regarding this report, please contact the number below. ??For patients who have questions please contact the health career specialist that requested your imaging first. ? Electronically signed by: JOSE MARIA Medrano [facility] ([phone]), at 01/29/2024 4:53 PM --------ORIGINAL REPORT -------- EXAMINATION: MRI ABDOMEN AND PELVIS WWO CONTRAST CLINICAL HISTORY: Patient with systemic mastocytosis, screening for protocol [id number]. ??Please provide liver and spleen size and volume for hepatomealy and spenomegaly. D47.02, Systemic mastocytosis COMPARISON: 08/18/2023 CT scan. ?? TECHNIQUE: Multiple routine MRI sequences through the abdomen and pelvis were obtained on a high-field MRI. Pre-and postcontrast images with 11 mL of Dotarem intravenous contrast were obtained. This included a dynamic contrast-enhanced technique. Images were also evaluated on an independent dedicated 3-D workstation with 3-D volumetric images of the liver and spleen performed and subsequently interpreted. FINDINGS: ABDOMEN: Lung bases: Bibasilar dependent atelectasis but no suspicious basilar lung lesion. Liver: There is diffuse signal loss of the liver parenchyma on the out of phase images consistent with diffuse fatty infiltration. Mild focal fatty sparing adjacent to the gallbladder fossa. No suspicious focal hepatic lesion or abnormal postcontrast enhancement to the liver itself. No biliary ductal dilatation. 3-D volume measurements of the spleen gives an estimated volume of 1783 mL +/- 152 mL Gallbladder: Surgically absent. Pancreas: Pancreas is homogeneous in signal. No pancreatic ductal dilatation or obstruction. No peripancreatic inflammatory changes or fluid. Spleen: Homogeneous signal. No abnormal splenic lesion. Small incidental 1.1 cm splenule along the inferior aspect of the spleen. 3-D volume measurements of the spleen given estimated point with 212 mL +/- 124 mL Adrenals: Unremarkable Kidneys: Kidneys are normal in size, shape, and signal. No suspicious renal mass lesion seen. No hydronephrosis or perinephric edema. Other: No bulky retroperitoneal or mesenteric adenopathy. Vessels: Examination is not tailored to evaluate the vessels. 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 PELVIS: Bladder: Decompressed but no bladder wall thickening or nodularity. Pelvic Organs: Uterus surgically absent. No adnexal mass. Free fluid: No significant free fluid in the dependent pelvis. Nodes: I do not appreciate any bulky inguinal, pelvic sidewall, or iliac bulky adenopathy. Other: Aortobifemoral bypass graft is partially visualized and better seen on the prior CT scan. I do not appreciate any obvious contrast enhancement within the right sided limb of the bypass graft suggesting a chronic occlusion. Examination is not tailored to evaluate the vessels however. Bones: ??No suspicious bony lesions or abnormal bony enhancement seen. Linear enhancement likely due to prior bone marrow biopsy tract in the posterior right iliac bone. IMPRESSION: 1. Liver and spleen volumes as described above. 2. No suspicious mass lesion or adenopathy on this study. 3. Diffuse fatty infiltration of the liver. 4. Status post cholecystectomy. ?? Thank you for letting us participate in the care of this patient. ??If you are a health care provider and have any questions regarding this report, please contact the number below. ??For patients who have questions please contact the health career specialist that requested your imaging first. ? Electronically signed by: JOSE MARIA Medrano [facility] ([phone]), at 01/28/2024 11:22 AM Impressions 01/28/2024 11:22 AM EDT 1. Liver and spleen volumes as described above. 2. No suspicious mass lesion or adenopathy on this study. 3. Diffuse fatty infiltration of the liver. 4. Status post cholecystectomy. ?? Thank you for letting us participate in the care of this patient. ??If you are a health care provider and have any questions regarding this report, please contact the number below. ??For patients who have questions please contact the health career specialist that requested your imaging first. ? Electronically signed by: JOSE MARIA Medrano [facility] ([phone]), at 01/28/2024 11:22 AM Narrative 01/28/2024 11:22 AM EDT EXAMINATION: MRI ABDOMEN AND PELVIS WWO CONTRAST CLINICAL HISTORY: Patient with systemic mastocytosis, screening for protocol [id number]. ??Please provide liver and spleen size and volume for hepatomealy and spenomegaly. D47.02, Systemic mastocytosis COMPARISON: 08/18/2023 CT scan. ?? TECHNIQUE: Multiple routine MRI sequences through the abdomen and pelvis were obtained on a high-field MRI. Pre-and postcontrast images with 11 mL of Dotarem intravenous contrast were obtained. This included a dynamic contrast-enhanced technique. Images were also evaluated on an independent dedicated 3-D workstation with 3-D volumetric images of the liver and spleen performed and subsequently interpreted. FINDINGS: ABDOMEN: Lung bases: Bibasilar dependent atelectasis but no suspicious basilar lung lesion. Liver: There is diffuse signal loss of the liver parenchyma on the out of phase images consistent with diffuse fatty infiltration. Mild focal fatty sparing adjacent to the gallbladder fossa. No suspicious focal hepatic lesion or abnormal postcontrast enhancement to the liver itself. No biliary ductal dilatation. 3-D volume measurements of the spleen gives an estimated volume of 1783 mL +/- 152 mL Gallbladder: Surgically absent. Pancreas: Pancreas is homogeneous in signal. No pancreatic ductal dilatation or obstruction. No peripancreatic inflammatory changes or fluid. Spleen: Homogeneous signal. No abnormal splenic lesion. Small incidental 1.1 cm splenule along the inferior aspect of the spleen. 3-D volume measurements of the spleen given estimated point with 212 mL +/- 124 mL Adrenals: Unremarkable Kidneys: Kidneys are normal in size, shape, and signal. No suspicious renal mass lesion seen. No hydronephrosis or perinephric edema. Other: No bulky retroperitoneal or mesenteric adenopathy. Vessels: Examination is not tailored to evaluate the vessels. 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 PELVIS: Bladder: Decompressed but no bladder wall thickening or nodularity. Pelvic Organs: Uterus surgically absent. No adnexal mass. Free fluid: No significant free fluid in the dependent pelvis. Nodes: I do not appreciate any bulky inguinal, pelvic sidewall, or iliac bulky adenopathy. Other: Aortobifemoral bypass graft is partially visualized and better seen on the prior CT scan. I do not appreciate any obvious contrast enhancement within the right sided limb of the bypass graft suggesting a chronic occlusion. Examination is not tailored to evaluate the vessels however. Bones: ??No suspicious bony lesions or abnormal bony enhancement seen. Linear enhancement likely due to prior bone marrow biopsy tract in the posterior right iliac bone. Procedure Note Douglas Le MD - 01/28/2024 EXAMINATION: MRI ABDOMEN AND PELVIS WWO CONTRAST CLINICAL HISTORY: Patient with systemic mastocytosis, screening forprotocol [id number]. Please provide liver and spleen size and volume for hepatomealyand spenomegaly. D47.02, Systemic mastocytosis COMPARISON: 08/18/2023 CT scan. TECHNIQUE: Multiple routine MRI sequences through the abdomen and pelvis wereobtained on a high-field MRI. Pre-and postcontrast images with 11 mL of Dotaremintravenous contrast were obtained. This included a dynamic contrast-enhancedtechnique. Images were also evaluated on an independent dedicated 3-D workstationwith 3-D volumetric images of the liver and spleen performed and subsequently interpreted. FINDINGS: ABDOMEN: Lung bases: Bibasilar dependent atelectasis but no suspicious basilarlung lesion. Liver: There is diffuse signal loss of the liver parenchyma on the out ofphase images consistent with diffuse fatty infiltration. Mild focal fattysparing adjacent to the gallbladder fossa. No suspicious focal hepatic lesion or abnormal postcontrast enhancement to the liver itself. No biliary ductal dilatation. 3-D volume measurements of the spleen gives an estimatedvolume of 1783 mL +/- 152 mL Gallbladder: Surgically absent. Pancreas: Pancreas is homogeneous in signal. No pancreatic ductaldilatation or obstruction. No peripancreatic inflammatory changes or fluid. Spleen: Homogeneous signal. No abnormal splenic lesion. Small incidental1.1 cm splenule along the inferior aspect of the spleen. 3-D volume measurementsof the spleen given estimated point with 212 mL +/- 124 mL Adrenals:Unremarkable Kidneys: Kidneys are normal in size, shape, and signal. No suspiciousrenal mass lesion seen. No hydronephrosis or perinephric edema. Other: No bulky retroperitoneal or mesenteric adenopathy. 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 PELVIS: Bladder: Decompressed but no bladder wall thickening or nodularity. Pelvic Organs: Uterus surgically absent. No adnexal mass. Free fluid: No significant free fluid in the dependent pelvis. Nodes: I do not appreciate any bulky inguinal, pelvic sidewall, or iliacbulky adenopathy. Other: Aortobifemoral bypass graft is partially visualized and better seenon the prior CT scan. I do not appreciate any obvious contrast enhancementwithin the right sided limb of the bypass graft suggesting a chronic occlusion. Examination is not tailored to evaluate the vessels however. Bones: No suspicious bony lesions or abnormal bony enhancement seen.Linear enhancement likely due to prior bone marrow biopsy tract in the posteriorright iliac bone. IMPRESSION 1. Liver and spleen volumes as described above. 2. No suspicious mass lesion or adenopathy on this study. 3. Diffuse fatty infiltration of the liver. 4. Status post cholecystectomy. Thank you for letting us participate in the care of this patient. If youare a health care provider and have any questions regarding this report,please contact the number below. For patients who have questions please contactthe health career specialist that requested your imaging first. Edmund Truong MD IMG MRI ORDERABLES * BM HOLD CYTOGENETICS/FISH (12/15/2023 10:56 AM EDT) Bone Marrow Non Blood Collection / Unknown 12/15/2023 10:56 AM EDT 12/15/2023 12:15 PM EDT Omid Degroot MD PATHOLOGY/CYTOLOGY ORDERABLES Performing Organization Address [facility] Co de Phone Number [facility] [place] [address] * BM HOLD FLOW/MOLECULAR (12/15/2023 10:56 AM EDT) Bone Marrow Non Blood Collection / Unknown 12/15/2023 10:56 AM EDT 12/15/2023 12:15 PM EDT Omid Degroot MD PATHOLOGY/CYTOLOGY ORDERABLES Performing Organization Address [facility] [place] [address] * (ABNORMAL) Bone Marrow (12/15/2023 10:56 AM EDT) Case Report Bone Marrow Patholog y Report ?Case: [id number] ? Authorizing Provider: ??Omid Degroot MD ? Collected: ? 12/15/2023 1056 ? Ordering Location: [facility] ??Received: ?12/15/2023 1215 ? [facility] ? [facility] ? Pathologist: ? Whitney, [place], MD ? Specimens: ?? A) - Iliac Crest, Right ? B) - Iliac Crest, Right ? C) - Iliac Crest, Right ? 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 Review of negative NGS result finds a compatible variant at this loci below the limit of detection (<1% VAF). Mast cell aggregates are noted to compose ~20% of the marrow cellularity. No overt morphologic evidence of a concurrent myeloid neoplasm is appreciated (ancillary NGS noted not to detect significant variants associated with clonal hematopoiesis). Tryptase noted to be below 200 ng/mL and CBC within normal limits at the time of this biopsy. Overall no B-findings are appreciated as noted above from a histopathologic or laboratory standpoint. 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 2:[address] [facility] Addendum electronically signed by Lb Guzman DO on 01/18/2024 at 2:41 PM Final Diagnosis 1. Hypercellular marrow with trilineage hematopoiesis, no increase in blasts and abnormal mast cell aggregates. (See discussion) 2. Ancillary studies pending. 2:[address] [facility] Discussion The patient's histor y of lytic mast cell lesions, mild GI symptoms, elevated serum tryptase (170 ng/mL) and no cutaneous lesions is noted. Flow cytometry supports the diagnostic interpretation. Mast cell aggregates (>15) with spindled forms and CD25 expression are seen. Overall findings are compatible with a systemic mastocytosis. Ancillary cytogenetic and molecular studies are ongoing and will be reported separately. Final integrated report to follow. Case dictated by Jen Chaney M.D. (Hematopathology Fellow) As the attending physician, I attest that I examined the histologic slides, and confirm the diagnosis. 2:[address] [facility] Additional Studies Task ID IHC/Special Stains Result A1-2 BM Iron Stain Normal storage iron, no ring sideroblast seen B1-3 CD25 Positive in mast cells B1-4 CD117 Positive in mast cells B1-5 CD2 Focal weak staining in mast cell aggregates B1-6 CD3 Stains T-cells, scattered and in aggregates. B1-7 CD20 Stains B-cells, scattered and in aggregates. B1-8 CD30 Focal weak staining in mast cell aggregates B1-9 CD34 Blasts stain (<5%), scattered B1-10 CD61 Scattered megakaryocytes highlighted, adequate in number B1-11 E-Cadherin Adequate erythroid precursors highlighted B1-12 Myeloperoxidase Adequate granulocyte precursors highlighted B1-13 Reticulin Stain Stains reticulin fibrosis associated with mast cell and lymphoid aggregates 4 2:[address] [facility] Clinical Information Hx abnormal bone imaging findings with bone biopsy (not bone marrow) showing evidence of systemic mastocytosis. BmBx to eval for hematological neoplasm, marrow involvement 4 2:[address] [facility] Gross Description A. Iliac Crest, Right. Number of Lavender (EDTA) tubes: 3 Total Volume of Lavender (EDTA) tubes: 7.9 Number of Green (NaHep) tubes: 1 Total Volume of EDTA tubes: 3.5 Spicule/Clot Section submitted? Present Tube to Biorepository? Present Processed by: Trish Giancarlo Collected off the [facility] by: n/a B. Iliac Crest, Right. B - Labeled/Fixative: Iliac crest, right, formalin. Quantity/Size: Single, 1.7 x 0.2 cm. Tissue Description: Red firm needle core biopsies of bone. Sections/Processing: Blocks submitted for decalcification: B 1. Entirely submitted in 1 cassette labeled B1. pps C. Iliac Crest, Right. C - Labeled/Fixative: Iliac crest, right, fresh. Quantity/Size: Fragments, aggregating 0.3 x 0.1 cm. Tissue Description: [place] soft tissue fragments. Sections/Processing: Entirely submitted in 1 cassette labeled C1. pps [address] 2:[address] [facility] Disclaimer(s) Formalin-fixed, paraffin-embedded tissue sections are studied using the polymer technique with appropriate positive and negative controls. These IHC studies provide the pathologist with adjunctive diagnostic information. Antibody specificity has been verified by testing antibodies on a series of in-house tissues with known immunohistochemical performance characteristics. The clinical interpretation of any antibody positive staining or its absence is evaluated within the context of clinical presentation, morphology, histopathological criteria and other diagnostic tests. 2:[address] [facility] Bone Marrow Aspirate Adequacy: Smear/touch preparations adequate, cellular. G:E ratio: 1.8:1 Erythroid: Complete normoblastic maturation, no left-shift. Granulocyte: Complete normal maturation, no left-shift. Blasts: Not increased. Megakaryocyte: Normal in number and morphology. Lymphocyte: Scattered mature forms seen, no aggregates appreciated. Plasma cells: Not increased, normal morphology. Other: Increased number of atypical spindled and degranulated mast cells, normal eosinophils, basophils. 2:[address] [facility] Bone Marrow Biopsy and/or Clot Core Adequacy: Decalcified, adequate, evaluable marrow present. Clot Adequacy: Marrow spicules adequate, findings similar to core. Cellularity: Hypercellular (50%), marrow. Erythroid: Precursors numerically decreased. Granulocyte: Precursors numerically adequate. Megakaryocyte: Normal in number and appearance, no clustering seen. Lymphocytes: Few aggregates associated with mast cell aggregates. Plasma cells: Normal numbers. Other: Mast cells aggregates (>= 15 mast cells) with spindled forms. Normal eosinophils, basophils. Bone: Trabecular bone normal for age. PERIPHERAL SMEAR There is no anemia. The red blood cells show normal morphology. The white blood cells show normal morphology. Platelets show normal platelet morphology. 2:[address] [facility] Bone Marrow Differential Band/Seg 35% Lymph 11% Ashe 1% Eos 2% Baso 0% Metamyelocyte 2% Myelocyte 3% Promyelocyte 1% Blast 0% nRBC's 25% Plasma cell Mast cells 0% 20% 2:[address] [facility] Result Note THIS RESULT REQUIRES PHYSICIAN/AYANA FOLLOW UP(A) 2:[address] [facility] ILIAC CREST STRUCTURE / Unknown 12/15/2023 10:56 AM EDT 12/15/2023 12:15 PM EDT ILIAC CREST STRUCTURE / Unknown 12/15/2023 10:56 AM EDT 12/15/2023 12:15 PM EDT ILIAC CREST STRUCTURE / Unknown 12/15/2023 10:56 AM EDT 12/15/2023 12:15 PM EDT Omid Degroot MD PATHOLOGY/CYTOLOGY ORDERABLES [facility] [place] [address] * Chromosome Analysis, Acquired ([facility]) (12/15/2023 10:56 AM EDT) Pathologist [facility] Chromosome, Leukemia/Lymph benny ([facility]) See Scanned Result 12/28/2023 11:04 AM EDT REF [facility] Specimen Condition ([facility]) 12/28/2023 11:04 AM EDT REF [facility] Bone Marrow Non Blood Collection / Unknown 12/15/2023 10:56 AM EDT 12/15/2023 12:15 PM EDT Lb Broderick DO LAB SEND OUT ORDERA BLES REF [facility] [address] [place] [address], [place] * DH HemeSeq (Bone Marrow) (12/15/2023 10:56 AM EDT) Pathologist [facility] NGS Report Status Normal 12/27/2023 8:40 AM EDT [facility] Bone Marrow Non Blood Collection / Unknown 12/15/2023 10:56 AM EDT 12/15/2023 12:15 PM EDT Lb Broderick DO MOLECULAR ORDERABLE S [facility] [place] [address] * Immunophenotyping Flow Cytometry (12/15/2023 10:56 AM EDT) Final Diagnosis Minor population, compatible with abnormal mast cells (see Comment). 12/17/2023 12:[address] [facility] Signing Pathologist This result has been reviewed by Lb Guzman DO on 12/17/23 at 12:54 PM. 12/17/2023 12:[address] [facility] Discussion Correlation with morphologic findings of the bone marrow biopsy is suggested. 12/17/2023 12:[address] [facility] Interpretation [id number] gating detected a minor population compatible with mast cells that expresses CD2 and CD25, compatible with abnormal mast cells. B-cells are polytypic and T-cells do not show an aberrant population. No increase in blasts detected. 12/17/2023 12:[address] [facility] Lymphocyte % 13.3 % 12/17/2023 12:[address] [facility] Monocyte % 3.8 % 12/17/2023 12:[address] [facility] Granulocyte % 77.8 % 12/17/2023 12:[address] [facility] CD45 DIM % 1.0 % 12/17/2023 12:[address] [facility] CD38 Bright/CD138+ 0.1 % 12/17/2023 12:[address] [facility] CD3+ % 82.0 % 12/17/2023 12:[address] [facility] CD19+ % 13.0 % 12/17/2023 12:[address] [facility] CD56+ % 5.0 % 12/17/2023 12:[address] [facility] B-Cell:T-Cell Ratio 0.2 12/17/2023 12:[address] [facility] [place]:Lambda Ratio 0.9 12/17/2023 12:[address] [facility] CD4:CD8 Ratio 1.7 12/17/2023 12:54 PM EDT [facility] Specimen Processing Cells for immunophenotypic analysis were derived from bone marrow. The following markers were assessed: CD2, CD3, CD4, CD5, CD7, CD8, CD10, CD13, CD14, CD19, CD25, CD34, CD45, CD56, CD117, HLA-DR, kappa light chain and lambda light chain. 12/17/2023 12:54 PM EDT [facility] Disclaimer Flow analysis is an ancillary study. A definite diagnosis requires correlation with the morphologic features of this process and if necessary, correlation with other ancillary studies like immunohistochemist ry, enzyme cytochemistry and/or cyto/molecular genetics. This test was developed and its performance characteristics determined by the Clinical Flow Cytometry Laboratory at [facility]. It has not been cleared or approved by the U.S. Food and Drug Administration. The FDA has determined that such clearance or approval is not necessary. This test is used for clinical purposes. It should not be regarded as investigational or for research. This laboratory is certified under the Clinical Laboratory Improvement Act of 1988 (CLIA) as qualified to perform high complexity clinical laboratory testing. 12/17/2023 12:54 PM EDT [facility] Clinical Information Suspicion for mastocytosis. 12/17/2023 12:54 PM EDT [facility] Bone Marrow Non Blood Collection / Unknown 12/15/2023 10:56 AM EDT 12/15/2023 12:15 PM EDT Lb Broderick DO HEMATOLOGY ORDERABL ES [facility] [place] [address] from Last 3 Months Advance Directives Documents on File Type Date Recorded Patient Leg Breaker Expl anation Advance Directives and Living Will 02/23/2024 11:07 AM Karthik Grayson spouse * Attempt Cardiopulmonary Resuscitation - Inpatient (Latest Code Status on File) Date Activated Date Inactivated Comments 02/16/2024 5:39 PM 02/24/2024 2:36 PM Question Answer Comments Code Status decision made by: Patient * Attempt Cardiopulmonary Resuscitation - Inpatient Date Activated Date Inactivated Comments 02/09/2024 3:55 PM 02/11/2024 4:34 PM Question Answer Comments Code Status decision made by: Patient Content of discussion: full code * Attempt Cardiopulmonary Resuscitation - Inpatient Date Activated Date Inactivated Comments 02/04/2024 7:07 PM 02/05/2024 7:42 PM Question Answer Comments Code Status decision made by: Patient Content of discussion: full * Attempt Cardiopulmonary Resuscitation - Inpatient Date Activated Date Inactivated Comments 10/15/2023 2:15 PM 10/15/2023 4:26 PM Question Answer Comments Code Status decision made by: Patient Content of discussion: Discussed use of sedation medication reversal and CPR if heart rate and/or breathing slows too much. The patient requests full code status. Care Teams Crusher And Blender Operator Relationship Specialty Start Date End Date Estrella Mckay, TOOL OR DIE DRAWING [place] [address] PCP - General Family Medicine 12/14/23
--- OUTSIDE RECORDS SUMMARY | 2024-02-29 15:49 | XMS_ITS | Encounter Summary ---
Author Organization [facility] Address [facility] [place] [address] Care Team Providers Care Burning Plant Operator Name Role Phone Estrella Mckay APRN Primary Care Provider [phone] Encounter Details Date Type Department Care Team (Late st Contact Info) Description 02/29/2024 Orders Only Hematology [place] [phone] Edmund Truong MD [facility] [address] [place] [address] Systemic mastocytosis; Cough, persistent Social History Tobacco Use Types Packs/Day Years Used Date Smoking Tobacco: Former Cigarettes 1 30 Q uit: 2012 Smokeless Tobacco: Never Comments:3/4TH PK A DAY Alcohol Use Standard Drinks/Week Comments No 0 (1 standard drink = 0.6 oz pur e alcohol) [facility] Utilities Answer Date Recorded In the past 12 months has [employer], gas, oil, or water [employer] threatened to shut off services in your [...] any time in the past 12 m [facility], were you homeless or living in a longterm (including now)? No 02/17/2024 IPV Inpatient Questions [...] as of this encounter Plan of Treatment Upcoming Encounters Date Type Department Care Team (Late st Contact Info) Description 03/02/2024 8:30 AM EST Office Visit Vascular Surgery at [place] [phone] Sarah Bah APRN [facility] [place] [address] 03/04/2024 7:00 AM EST Appointment Mammography/[place] [address] Edmund Truong MD [facility] DR [place] [address] 03/07/2024 10:45 AM EST Laboratory Appointment Lab at [facility] Hematology Oncology [address] [place] [phone] 03/07/2024 11:30 AM EST Office Visit Hematology [place] [address] Bennett Turner RN 03/07/2024 11:30 AM EST Office Visit Hematology and Oncology at [place] [phone] Edmund Truong MD [facility] DR [place] [address] 03/10/2024 8:15 AM EST Laboratory Appointment Lab at [facility] Hematology Oncology [address] [place], [place] [phone] 03/10/2024 8:30 AM EST Scheduled View Only Hematology and Oncology at [address] 03/10/2024 9:00 AM EST Office Visit Hematology and Oncology at [place] [phone] Omid Degroot MD [facility] [place] [place] [address] 03/10/2024 9:00 AM EST Office Visit Hematology and Oncology at [place] [phone] Bennett Turner RN 03/25/2024 9:30 AM EST Tech Visit Vascular Lab at [place] [phone] Carlton Higgins, RVT 03/25/2024 10:15 AM EST Office Visit [place] [address] Tomy Raymond MD [facility] [place] [address] Scheduled Orders Name Type Priority Associated Diagnoses Orde r Schedule XR Chest PA & Lateral (Generic) Imaging Routine Cough, persistent Expected: 02/29/2024, Expires: 08/30/2024 CBC (with Diff) Lab STAT Systemic mastocytosis Expected: 02/29/2024, Expires: 08/30/2024 Comprehensive metabolic panel Non-fasting Lab STAT Systemic mastocytosis Expected: 02/29/2024, Expires: 08/30/2024 Prothrombin Time Lab STAT Systemic mastocytosis Expected: 02/29/2024, Expires: 08/30/2024 APTT Lab STAT Systemic mastocytosis Expected: 02/29/2024, Expires: 08/30/2024 documented as of this encounter Visit Diagnoses Diagnosis Systemic mastocytosis Malignant mast cell tumors, unspecified site, extranodal and solid organ sites Cough, persistent Cough documented in this encounter Care Teams Burning Plant Operator Relationship Specialty Start Date End Date Estrella Mckay, PLUMBING CONTRACTOR [facility] ADRIANA [place] [address] PCP - General Family Medicine 12/14/23 documented as of this encounter
--- OUTSIDE RECORDS SUMMARY | 2024-02-29 15:49 | XMS_ITS | Encounter Summary ---
Author Organization [facility] Address [address] [place] [address] Care Team Providers Care Recreational Assistant Name Role Phone Andreas Kerns DO Primary Care Provider [phone] Encounter Details Date Type Department Care Team (Late st Contact Info) Description 09/22/2007 Before PRISM Converted Visit (Maple) [facility] - Maple conversion [address] [place] [address] Cesar Baldwin MD [employer] [address] [place] [address] Social History Tobacco Use Types Packs/Day Years Used Date Smoking Tobacco: Never Assessed Comments Unknown Sex and Gender Information Value Date Recorded Sex Assigned at Not on file Legal Sex Female 18:15 EST Gender Identity Not on file Sexual Orientation Not on file documented as of this encounter Consult Notes * Mike Stevens Product Lister - 01/05/2009 1045 EDT DIVISION OF GASTROENTEROLOGY CONSULTATION - 09/22/2007 A consultation was requested by Dr. Anderson for evaluation of abdominal pain and constipation. HISTORY OF PRESENT ILLNESS Mrs. Kee is a 47-year-old woman with a history of multiple abdominal surgeries including appendectomy, tubal ligation, hysterectomy and cholecystectomy who has always had issues with intermittent constipation. She states that in the past she would go several days withoutmoving her bowels. In May, she had an episode of protracted constipation which lasted for several weeks. At that time shewas having a significant amount of straining with her stool and could not get her bowels to go. Eventually, she wound up using acombination of laxatives and eventually had some improvement. During that bout, she developed a left lower quadrant abdominal pain that has been persistent. She had been seen and evaluated by her primary physician as well as Dr. Anderson who performed a colonoscopy. Apparently, she had some adenomas which were removed. She did have some low grade temperature after her procedure and was treated with antibiotics. Apparently her sigmoid colon was angulated. Since the procedure, she has been treated with numerouslaxatives. She has had a CT scan of her abdomen which was essentially unremarkable. The final regimen of laxatives has included MiraLax and senna and with that she has been having one formed bowel movement per day. She is pleased with this result; however,she continues to have this left-sided abdominal pain. She describes the pain as constant and dull. She says that certain positions seem to make the pain worse. She cannot sit for any long period of time. She has noted no relation to either eating or moving her bowels with this pain. She had been given aprescription for Vicodin through an emergency department; however, that gave her more problems withconstipation. She denies any blood in the stools or melena. Her weight has been stable. REVIEW OF SYSTEMS As stated in the history of present illness and as outlined on the new patient clinic intake form, is otherwise unremarkable. PAST MEDICAL HISTORY None. PAST SURGICAL HISTORY Status post appendectomy in 1972, status post tubal ligation 1984, status posttotal abdominal hysterectomy in 1992, status post cholecystectomy in 1998. She had a colonoscopy in 08/2007 which showed multiple adenomas. Biopsies showed tubular and tubulovillous adenomas. CURRENT MEDICATIONS 1. MiraLax. 2. Senna. ALLERGIES Morphine and ibuprofen. SOCIAL HISTORY She lives in [place], [place] with her . She is not currently working. She denies smoking or alcohol intake. FAMILY HISTORY Negative for GI pathology. OBJECTIVE Weight is 130 pounds, blood pressure 180/72, pulse 84. In general, this is a well-developed, well-nourished white female in no acute distress. HEENT: There is no scleral icterus. Her mucous membranesare moist. Neck is supple, no lymphadenopathy. There is no appreciable thyromegaly. Heart: Regular rate andrhythm, no murmurs, rubs or gallops. Lungs: Clear to auscultation bilaterally. Abdomen: Softand nondistended with normoactive bowel sounds. She has point tenderness in the left lower quadrantand when she sits forward and strains her abdominal muscles, the tenderness is actually increased, consistent with an abdominal wall pain/strain. Extremities without clubbing, cyanosis, edema or rashes. Biopsies from her colon on 08/18/2007 show melanosis coli throughout, tubular adenoma at the hepatic flexure, tubulovillous adenoma in the transverse colon. Again, CT scan in August was negative. Blood work from 09/02/2007 showed a CBC which is normal, liver panel which is normal. Comprehensive metabolic panel is normal. IMPRESSION Mrs. Kee really seems to be having two issues which are probably related. First, she seems to be having issues of chronic constipation which had an exacerbation this May for reasons that are unclear. We explained to her that we would like to rule out the possibility of a thyroid condition con tributing to this. Fortunately, it seems like she has had a good response to MiraLax and senna; however, we explained to her that senna is probably not the best termite control representative option as there is some datato suggest that this could cause problems with motility down the road. We discussed with her the possibility of increasing the MiraLax and she said she did not tolerate that due to nausea and vomiting. We settled on a trial of lubiprostone to see if we could help get her off of the senna and keep her bowels regular. Her second problem is this abdominal wall pain. It is likely that she develops this pain while straining during her severe constipation. The abdominal exam is very consistent with an abdominal wall source of her pain, as is the clinical history. We discussed with her the possibility of trying some nonselective anti- inflammatory drugs; however, she said that she has been allergic to these in the past. As such, we suggested that she be seen by a regional pain specialist in the anesthesia pain clinic and be considered for an injection in that area. She seemed interested in pursuing this and certainly open to trying to do anything to get the pain under control. PLAN 1. Referral to anesthesia pain service for regional nerve block. 2. We will check a TSH. 3. Prescription given for lubiprostone to be taken either in place of or in addition to MiraLax. 4. Follow up in the GI clinic in 4-6 weeks or sooner if need be. This plan was discussed in detail with the patient who was in agreement. The patient was seen and examined with Dr. Yuniel Darling. saw and examined the patient with the resident/fellow. I agree with the findings and plan of care documented in the resident's/fellow's note. Signed by Yuniel Darling MD 10/18/2007 15:59 Cesar Baldwin MD Yuniel Darling MD [phone] - Cesar Baldwin MD - APPLE Job ID: [id number] Doc ID: [id number] cc: Hugo Anderson MD - apple Job ID: [id number] Doc ID: [id number] cc: Hugo Anderson MD documented in this encounter Plan of Treatment Not on file documented as of this encounter Visit Diagnoses Not on filedocumented in this encounter Care Teams Recreational Assistant Relationship Specialty Start Date End Date Andreas Kerns DO [address] [place], [place] [address] [address] PCP - General 09/29/08 07/11/10 documented as of this encounter
--- OUTSIDE RECORDS SUMMARY | 2024-02-29 15:49 | XMS_ITS | Encounter Summary ---
[place] [address] Care Team Providers Care Heatset Winder Operator Name Role Phone Estrella Mckay APRN Primary Care Provider [phone] Encounter Details Date Type Department Care Team (Late st Contact Info) Description 02/25/2024 Telephone [place] [phone] Raiza Serrano RN Social History Tobacco Use Types Packs/Day Years Used Date Smoking Tobacco: Former Cigarettes 1 30 Q uit: 2013 Smokeless Tobacco: Never Comments:3/4TH PK A DAY Alcohol Use Standard Drinks/Week Comments No 0 (1 standard drink = 0.6 oz pur e alcohol) [facility] Utilities Answer Date Recorded In the [...] any time in the past 12 m [facility], were you homeless or living in a nursing home (including now)? No 02/17/2024 IPV Inpatient Questions [...] Encounter - Raiza Serrano RN - 02/25/2024 1:27 PM EST Received a second incoming call from Ashley's daughter Enedelia. Enedelia reported that the VNA justsaw Ashley and verbalized to them that she needed a nebulizer treatment. Enedelia reports that whileAshley was hospitalized she was receiving treatments of albuterol because of respiratory issues. Ashley was discharged home from the ICU yesterday. Enedelia stated that they had contacted Ashley's PCP who reportedly sent a message to someone at .They do not know who that message was sent to. Enedelia was advised that a message would be sent to the discharging team. NEYDA Cai[facility] documented in this encounter Plan of Treatment Upcoming Encounters Date Type Department Care Team (Late st Contact Info) Description 03/02/2024 8:30 AM EST Office Visit [place] [address] Sraah Bah APRN [facility] [place] [address] 03/04/2024 7:00 AM EST Appointment Mammography/DXA at [place] [address] Edmund Truong MD [facility] DR HEMATOLOGY [place] [address] 03/07/2024 10:45 AM EST Laboratory Appointment Lab at [facility] Hematology Oncology [address] [place] [address] 03/07/2024 11:30 AM EST Office Visit Hematology and Oncology at [place] [address] Bennett Turner RN 03/07/2024 11:30 AM EST Office Visit Hematology and Oncology at [place] [address] Edmund Truong MD [facility] DR HEMATOLOGY [place] [address] 03/10/2024 8:15 AM EST Laboratory Appointment Lab at [facility] Hematology Oncology [address] [place] [address] 03/10/2024 8:30 AM EST Scheduled View Only Hematology and Oncology at [place] [address] 03/10/2024 9:00 AM EST Office Visit Hematology and Oncology at [place] [address] Omid Degroot MD [facility] [place] [address] 03/10/2024 9:00 AM EST Office Visit Hematology and Oncology at [place] [phone] Bennett Turner RN 03/25/2024 9:30 AM EST Tech Visit Vascular Lab at [place] [phone] Carlton Higgins, RVT 03/25/2024 10:15 AM EST Office [place] [address] Tomy Raymond MD [facility] [place] [address] documented as of this encounter Visit Diagnoses Not on filedocumented in this encounter Care Teams Heatset Winder Operator Relationship Specialty Start Date End Date Estrella Mckay, [employer] BI DEVELOPER [facility] [place] [address] PCP - General Family Medicine 12/14/23 documented as of this encounter
--- OUTSIDE RECORDS SUMMARY | 2024-02-29 15:49 | XMS_ITS | Encounter Summary ---
Author Organization [facility] Address [facility] [place] [address] Care Team Providers Care Document Preparer Microfilming Name Role Phone Estrella Mckay APRN Primary Care Provider [phone] Encounter Details Date Type Department Care Team (Late st Contact Info) Description 02/25/2024 Telephone [place] [phone] Andreas Morales MD [facility] [place] [address] Social History Tobacco Use Types Packs/Day Years Used Date Smoking Tobacco: Former Cigarettes 30 Q uit: 2012 Smokeless Tobacco: Never Comments:3/4TH PK A DAY Alcohol Use Standard Drinks/Week Comments No 0 (1 standard drink = 0.6 oz pur e alcohol) [facility] Utilities Answer Date Recorded In the past 12 months has e [facility], gas, oil, or water [facility] threatened to shut off services in your [...] any time in the past 12 m [facility], were you homeless or living in a senior care (including now)? No 02/17/2024 IPV Inpatient Questions [...] encounter Miscellaneous Notes * Telephone Encounter - Andreas Morales MD - 02/25/2024 2:01 PM EST Called PCP office to discuss prescribing albuterol inhaler. PCP office staff stated will relay message. I prescribed albuterol inhaler as well in the event one is not able to be prescribed by her PCP. I discussed the prescription with Ashley as well. Andreas Morales MD Vascular Surgery 02/25/24 documented in this encounter Plan of Treatment Upcoming Encounters Date Type Department Care Team (Late st Contact Info) Description 03/02/2024 8:30 AM EST Office Visit [place] [phone] Sarah Bah APRN [facility] [place] [address] 03/04/2024 7:00 AM EST Appointment Mammography/[place] [phone] Edmund Truong MD [facility] DR [place] [address] 03/07/2024 10:45 AM EST Laboratory Appointment Lab at [facility] Hematology Oncology [address] [place], [place] [id number] 03/07/2024 11:30 AM EST Office Visit Hematology and Oncology at [place] [phone] Bennett Turner, RN 03/07/2024 11:30 AM EST Office Visit Hematology and Oncology at [address] Edmund Truong MD [facility] DR HEMATOLOGY [place] [address] 03/10/2024 8:15 AM EST Laboratory Appointment Lab at [facility] Hematology Oncology [address] [place], [place] [phone] 03/10/2024 8:30 AM EST Scheduled View Only Hematology and Oncology at [place] [address] 03/10/2024 9:00 AM EST Office Visit Hematology and Oncology at [place] [phone] Omid Degroot MD [facility] [place] [address] 03/10/2024 9:00 AM EST Office Visit Hematology and Oncology at [place] [phone] Bennett Turner, RN 03/25/2024 9:30 AM EST Tech Visit Vascular Lab at [place] [phone] Carlton Higgins, RVT 03/25/2024 10:15 AM EST Office Visit Vascular Surgery at [place] [phone] Tomy Raymond MD [facility] [place] [address] documented as of this encounter Visit Diagnoses Not on filedocumented in this encounter Care Teams Document Preparer Microfilming Relationship Specialty Start Date End Date Estrella Mckay APRN [facility] [place] [address] PCP - General Family Medicine 12/14/23 documented as of this encounter
--- OUTSIDE RECORDS SUMMARY | 2024-02-29 15:49 | XMS_ITS | Encounter Summary ---
[place] [address] Care Team Providers Care Pattern Checker Name Role Phone Estrella Mckay APRN Primary Care Provider [phone] Encounter Details Date Type Department Care Team (Late st Contact Info) Description 02/25/2024 Telephone [place] [phone] Tatum Hernandez RN Social History Tobacco Use Types Packs/Day Years Used Date Smoking Tobacco: Former Cigarettes 1 30 Q uit: 2013 Smokeless Tobacco: Never Comments:3/ PK A DAY Alcohol Use Standard Drinks/Week Comments No 0 (1 standard drink = 0.6 oz pur e alcohol) [facility] Utilities Answer Date Recorded In the [...] any time in the past 12 m [facility], were you homeless or living in a chcf (including now)? No 02/17/2024 DH IPV Inpatient [...] encounter Miscellaneous Notes * Telephone Encounter - Tatum Hernandez RN - 02/25/2024 2:24 PM EST Patient underwent Thoracobifemoral bypass ([id number] Dacron tube graft, [id number] bifurcated Dacron tube graft) Left femoral endarterectomy surgery on 02/16/24. Patient reports that the VNA was out this am and they noticed that she had some wheezing and crackles (per the patient report) and they were hoping that she could get a albuterol inhaler. She was not sent home with one from the hospital. Per the patient the VNA also called the PCP for this same reason. After sign writer hand spoke with patient, I reached outto the PCP office and spoke with the RN who is going to talk with the mental health advanced practice nurse to get this patient in for a hospital check within the week following her complicated hospital course. Vp Lab called the patient back and let her know that a script for an albuterol inhaler had been sent to the armacy of her choice and that the PCP office should be reaching out to get her scheduled for f/u intheir office and a blood draw. Patient verbalized an understanding and was thankful for the help. Further follow up calls indicated? (Yes/no) if yes, what is timing: no Follow up ordered and placed appropriately? ( yes/no/n/a, if entered incorrectly, what was issue?) yes Follow up testing ordered appropriately? ( yes/no/n/a, if ordered inappropriately, what was issue) yes Taking Antiplatelet therapy as directed ( yes/no/n/a, if not taking as prescribed, why?) yes Taking Anticoagulation as directed (yes/no/n/a, if not taking as prescribed, why?) n/a Patient reporting fevers? (Yes/no, how high, how frequent) no Patient performing recommended wound care as directed (yes/no/n/a, if not performing as directed, why?) yes. Vp Lab let her know that she can remove the dressings each day prior to taking a shower, let soap and water run over them, pat dry, and then re-cover them with a dry gauze. Vp Lab also let her know that she could do this on both days with or without VNA services as the dressing is a daily change. She verbalized an understanding. VNA visiting as ordered? ( Yes/no/n/a) yes documented in this encounter Plan of Treatment Upcoming Encounters Date Type Department Care Team (Late st Contact Info) Description 03/02/2024 8:30 AM EST Office Visit Vascular Surgery at [place] [phone] Sarah Bah APRN [facility] [place] [address] 03/04/2024 7:00 AM EST Appointment Mammography/[place] [phone] Edmund Truong MD [facility] DR HEMATOLOGY [place] [address] 03/07/2024 10:45 AM EST Laboratory Appointment Lab at [facility] Hematology Oncology [address] [place], [place] [phone] 03/07/2024 11:30 AM EST Office Visit Hematology and Oncology at [place] [address] Bennett Turner, RN 03/07/2024 11:30 AM EST Office Visit [place]ology [place] [address] Edmund Truong MD [facility] DR HEMATOLOGY [place] [address] 03/10/2024 8:15 AM EST Laboratory Appointment Lab at [facility] Hematology Oncology [address] [place] [address] 03/10/2024 8:30 AM EST Scheduled View Only Hematology and Oncology at [place] [address] 03/10/2024 9:00 AM EST Office Visit Hematology and Oncology at [place] [address] Omid Degroot MD [facility] [place] [address] 03/10/2024 9:00 AM EST Office Visit Hematology and Oncology at [place] [address] Bennett Turner RN 03/25/2024 9:30 AM EST Tech Visit Vascular Lab at [place] [address] Carlton Higgins, RVT 03/25/2024 10:15 AM EST Office Visit Vascular Surgery at [place] [address] Tomy Raymond MD [facility] [place] [address] documented as of this encounter Visit Diagnoses Not on filedocumented in this encounter Care Teams Pattern Checker Relationship Specialty Start Date End Date Estrella Mckay, LOGISTICS [place] [address] PCP - General Family Medicine 12/14/23 documented as of this encounter
--- OUTSIDE RECORDS SUMMARY | 2024-02-29 15:49 | XMS_ITS | Encounter Summary ---
Author Organization [facility] Address [facility] [place] [address] Care Team Providers Care Ward Assistant Name Role Phone Estrella Mckay APRN Primary Care Provider [phone] Encounter Details Date Type Department Care Team (Late st Contact Info) Description 02/24/2024 Orders Only H[place]ology [place] [phone] Edmund Truong MD [facility] DR HEMATOLOGY [place] [address] Systemic mastocytosis Social History Tobacco Use Types Packs/Day Years Used Date Smoking Tobacco: Former Cigarettes 1 30 Q uit: 2012 Smokeless Tobacco: Never Comments:3/4TH PK A DAY Alcohol Use Standard Drinks/Week Comments No 0 (1 standard drink = 0.6 oz pur e alcohol) [facility] Utilities Answer Date Recorded In the past 12 months has [employer], gas, oil, or water [employer] threatened to shut off services in your [...] any time in the past 12 m [facility], were you homeless or living in a halfway (including now)? No 02/17/2024 IPV Inpatient Questions [...] AM EST Office Visit Vascular Surgery at [place] [phone] Sarah Bah APRN [facility] [place] [address] 03/04/2024 7:00 AM EST Appointment Mammography/DXA at [place] [phone] Edmund Truong MD [facility] DR [place] [address] 03/07/2024 10:45 AM EST Laboratory Appointment Lab at [facility] Hematology Oncology [address] [place] [phone] 03/07/2024 11:30 AM EST Office Visit Hematology and Oncology at [place] [phone] Bennett Turner RN 03/07/2024 11:30 AM EST Office Visit Hematology and Oncology at [place] [phone] Edmund Truong MD [facility] DR [place] [address] 03/10/2024 8:15 AM EST Laboratory Appointment Lab at [facility] Hematology Oncology [address] [place], [place] [phone] 03/10/2024 8:30 AM EST Scheduled View Only Hematology and Oncology at [place] [phone] 03/10/2024 9:00 AM EST Office Visit Hematology and Oncology at [place] [phone] Omid Degroot MD [facility] [place] [place] [address] 03/10/2024 9:00 AM EST Office Visit Hematology and Oncology at [place] [phone] Bennett Turner RN 03/25/2024 9:30 AM EST Tech Visit Vascular Lab at [place] [phone] Carlton Higgins, RVT 03/25/2024 10:15 AM EST Office [place] [phone] Tomy Raymodn MD [facility] [place] [address] Scheduled Orders Name Type Priority Associated Diagnoses Orde r Schedule CBC (with Diff) Lab STAT Systemic mastocytosis Expected: 02/29/2024, Expires: 08/30/2024 Comprehensive metabolic panel Non-fasting Lab STAT Systemic mastocytosis Expected: 02/29/2024, Expires: 08/30/2024 Gamma GT Lab STAT Systemic mastocytosis Expected: 02/29/2024, Expires: 08/30/2024 Uric acid Lab STAT Systemic mastocytosis Expected: 02/29/2024, Expires: 08/30/2024 Magnesium Lab STAT Systemic mastocytosis Expected: 02/29/2024, Expires: 08/30/2024 Phosphorus Lab STAT Systemic mastocytosis Expected: 02/29/2024, Expires: 08/30/2024 Lactate Dehydrogenase Lab STAT Systemic mastocytosis Expected: 02/29/2024, Expires: 08/30/2024 Bilirubin, Direct Lab STAT Systemic mastocytosis Expected: 02/29/2024, Expires: 08/30/2024 Prothrombin Time Lab STAT Systemic mastocytosis Expected: 02/29/2024, Expires: 08/30/2024 APTT Lab STAT Systemic mastocytosis Expected: 02/29/2024, Expires: 08/30/2024 documented as of this encounter Visit Diagnoses Diagnosis Systemic mastocytosis Malignant mast cell tumors, unspecified site, extranodal and solid organ sites documented in this encounter Care Teams Ward Assistant Relationship Specialty Start Date End Date Estrella Mckay, [employer] [place]INTER [place] [address] PCP - General Family Medicine 12/14/23 documented as of this encounter
--- OUTSIDE RECORDS SUMMARY | 2024-02-29 15:49 | XMS_ITS | Encounter Summary ---
[place] [address] Care Team Providers Care Mine Expert Name Role Phone Estrella Mckay APRN Primary Care Provider [phone] Encounter Details Date Type Department Care Team (Late st Contact Info) Description 02/24/2024 Notes Only [place]ology [place] [id number] Bennett Turner, RN Social History Tobacco Use Types Packs/Day Years Used Date Smoking Tobacco: Former Cigarettes 1 30 Q uit: 2012 Smokeless Tobacco: Never Comments:3/4TH PK A DAY Alcohol Use Standard Drinks/Week Comments No 0 (1 standard drink = 0.6 oz pur e alcohol) [facility] Utilities Answer Date Recorded In the [...] Progress Notes * Bennett Turner RN - 02/24/2024 4:10 PM EST RESEARCH NURSE TELEPHONE NOTE [id number]: (OSSIAN) A MULTI-PART, RANDOMIZED, DOUBLE-BLIND, PLACEBO-CONTROLLED PHASE 2 CLINICAL STUDY OF THE SAFETY AND EFFICACY OF [id number] IN SUBJECTS WITH NONADVANCED SYSTEMIC MASTOCYTOSIS. Date: 02/24/2024 Time: 4:10 PM Study Day: Screening Reason for call: to update with plan for continued screening and provide dates/times for FU visits. Spoke w/ Ashley Kee who was discharged today from the ICU to home. She reports she is really tired but doing well. She notes that her pain is being controlled with Tylenol. Reviewed upcoming planned appointments for 02/28, 03/07 and 03/10. Ashley Kee verbalized understanding and will plan to be here for those visits. Ashley Kee reported that she tried to do her survey last evening but the david would not let her in. New activation code sent to her and assisted her with getting into the david. She reported she was successful and will resume the surveys this evening. Review start time for AE's as below. Patient stated that they all started out as mild symptoms but have increased in severity since then. Current grading below. Signs/Symptoms & Adverse Events (insert table via quick text on first occasion then copy from pervious note for all subsequent notes) EVENT CTCAE GRADE START DATE STOP DATE Diarrhea 2008 Constipation 2008 Nausea 2017 Vomiting 2017 Arthralgia 2021 Myalgia 2021 Fatigue 1997 Hyperhidrosis 2022 Education Provided: Reviewed upcoming schedule. Patient reports she has my and uses that and that she will come in for appointments as scheduled. Reviewed that Ashley Kee should call me if she experiences any worsening of her current status, fevers, chill, uncontrolled nausea or vomiting, increase in diarrhea or constipation, or pain that is not controlled with Tylenol. Ashley Kee expressed understanding. Ashley Kee verbalized understanding that she needs to complete her surveys daily, which she stated she would now do given she now has access. Plan: Pt will continue on study in screening per protocol. Next visit 02/29/[address] Truong and Research RN with labs prior. . FU visit on 03/07/[address] Truong and Research RN with labs prior. . Will plan to complete eligibility by 03/07/24 and start on treatment on 03/10/24 if eligible. Discussed all w/ . Pt understands and agrees with plan and knows she can call the clinic with any further questions orconcerns. documented in this encounter Plan of Treatment Upcoming Encounters Date Type Department Care Team (Late st Contact Info) Description 03/02/2024 8:30 AM EST Office [place] [phone] Sarah Bah APRN [facility] [place] [address] 03/04/2024 7:00 AM EST Appointment Mammography/[place] [phone] Edmund Truong MD [facility] DR [place] [address] 03/07/2024 10:45 AM EST Laboratory App[place] [facility] [place] [address] [place], [place] [phone] 03/07/2024 11:30 AM EST Office Visit Hematology and Oncology at [place] [phone] Bennett Turner, RN 03/07/2024 11:30 AM EST Office Visit Hematology and Oncology at [place] [phone] Edmund Truong MD [facility] [place] [address] 03/10/2024 8:15 AM EST Laboratory Appointment [place] [facility] [place] [address] [place], [place] [phone] 03/10/2024 8:30 AM EST Scheduled View Only Hematology and Oncology at [address] 03/10/2024 9:00 AM EST Office Visit Hematology and Oncology at [place] [address] Omid Degroot MD [facility] [place] [address] 03/10/2024 9:00 AM EST Office Visit Hematology and Oncology at [place] [phone] Bennett Turner, RN 03/25/2024 9:30 AM EST Tech Visit Vascular Lab at [place] [phone] Carlton Higgins, RVT 03/25/2024 10:15 AM EST Office Visit Vascular Surgery at [place] [phone] Tomy Raymond MD [facility] [place] [address] documented as of this encounter Visit Diagnoses Not on filedocumented in this encounter Care Teams Mine Expert Relationship Specialty Start Date End Date Estrella Mckay, [place] [address] PCP - General Family Medicine 12/14/23 documented as of this encounter
--- OUTSIDE RECORDS SUMMARY | 2024-02-29 15:50 | XMS_ITS | Encounter Summary ---
[place] [address] Care Team Providers [facility] [employer] Name Role Phone Estrella Mckay APRN Primary Care Provider [phone] Reason for Referral * Diagnostic Test (Routine) - New Request Specialty Diagnoses / Procedures Referred By Contac t Referred To Contact Diagnoses Critical limb ischemia of both lower extremities with autologous bypass graft Procedures MARGIE, legs, multiple levels Kym Hassan APRN [facility] [place] [address] [facility] [address], [place] [address] Referral ID Status Reason Start Date Expiration Date Visits Requested Visits Authorized [id number] New Request Specialty Service Requested 02/23/2025 1 1 * Home Health Care (Routine) - Authorized Specialty Diagnoses / Procedures Referred By Contac t Referred To Contact Diagnoses Critical limb ischemia of both lower extremities with autologous bypass graft Emily Raymond MD [facility] [place] [address] Referral ID Status Reason Start Date Expiration Date Visits Requested Visits Authorized [id number] Authorized Consult, Test & Treat 02/24/2024 08/22/2024 999 999 Reason for Visit * Auth/Cert (Routine) Specialty Diagnoses / Procedures Referred By Contac t Referred To Contact Diagnoses Aortoiliac occlusive disease Occluded limb prior aorto bifem Procedures PRO BYPASS GRAFT OTHR, AORTOBIFEMORAL [email or web address], AORTOBIFEMORAL W\ SYNTHETIC CONDUIT (WRVU 32.98) Emily Raymond MD [facility] [place] [address] [facility] Referral ID Status Reason Start Date Expiration Date Visits Re quested Visits Authorized [id number] 1 1 Encounter Details Date Type Department Care Team (Latest Contact Info) Description 02/16/2024 5:34 AM EST - 02/24/2024 12:00 PM EST Hospital Encounter Surgical [place] [address] Emily Raymond MD [facility] [place] [address] Critical limb ischemia of both lower extremities with bypass graft; Tachycardia; Postprocedural hypotension; Critical limb ischemia of both lower extremities with autologous bypass graft Discharge Disposition: Home Social History Tobacco Use Types Packs/Day Years Used Date Smoking Tobacco: Former Cigarettes 1 30 Q uit: 2012 Smokeless Tobacco: Never Comments:3/4TH PK A DAY Alcohol Use Standard Drinks/Week Comments No 0 (1 standard drink = 0.6 oz pur e alcohol) [facility] Utilities Answer Date Recorded In the past 12 months has [employer], or water [employer] threatened to shut off services in your [...] time in the past 12 m [facility], were you homeless or living in a prison (including now)? No 02/17/2024 DH IPV Inpatient [...] Mass Index 21.09 02/16/2024 6:00 PM EST documented in this encounter Discharge Instructions * Patient Instructions* Kym Hassan, PARAM - 02/24/2024 9:24 AM EST Patient Instructions You were admitted after having surgery to get more blood flow to your leg. All of this went very well. Your physician will want you to be seen in approximately 1 weeks for a wound check then one month with ABIs. All of this will be ordered and sent to you in the mail. If for some reason you don't receive this within a week or so please call our office as your followup is very important. We will remove your sutures/kim on one of your visit. Take a baby aspirin 81 mg daily. You had pneumonia and finished a course of antibiotics. If you experience cough or shortness of breath please seek care immediately. Home health will come to see you a nurse, PT and OT Please call you PCP and be seen in one week for hospital follow up, electrolyte monitoring as you received potassium while inpatient, and monitoring of your blood pressures You can send in your FMLA paperwork so that we may fill it out for you. Try to attach in your portal. Call your doctor if: Any fever, any drainage, redness or separation of your incision, increased pain or change in temperature of your leg Activity level: up as tolerated but watch for swelling of your leg. Manage this with leg elevation,toes higher than your nose Do not lift more than 10 lbs. Diet: resume your previous regular diet Driving: none until cleared by your vascular surgeon Shower/Bath: you may shower, remove dressings and reapply new dressings after you shower. wash withDial or similar antibacterial soap and wash all incisions under running water, pat dry. No soaking in a pool/bath/hottub until seen and cleared by your doctor. For any problems or questions please call [phone] For issues on weeknights after 5pm and weekends please call [phone] and ask for the Vascular Fellow international accountant. documented in this encounter Medications at Time of Discharge Medication Sig Dispensed Refills Start Date End Date aspirin 81 mg chewable tablet Take 81 mg by mouth daily. 30 tablet 3 02/25/2024 methocarbamoL (Robaxin) 750 mg tablet Take 1 tablet by mouth 3 times daily. 30 tablet 02/11/2024 polyethylene glycoL (Miralax) 17 gram oral powder packet Take 17 g by mouth daily. 14 each 02/11/2024 senna-docusate (Pericolace) 8.6-50 mg Tablet Take 2 tablets by mouth 2 times daily. 60 tablet 11 02/11/2024 acetaminophen (Tylenol) 500 mg tablet Take 1,000 mg by mouth every 6 hours as needed for Pain (generally takes 1000mg daily in am.). cetirizine (ZyrTEC) 10 mg tabletIndications:Syste john Mastocytosis Take 1 tablet by mouth daily. Indications: Systemic Mastocytosis 30 tablet 3 01/07/2024 famotidine (Pepcid) 20 mg tabletIndications:Syste john Mastocytosis Take 1 tablet by mouth 2 times daily. Indications: Systemic Mastocytosis 30 tablet 3 01/07/2024 montelukast (Singulair) 5 mg chewable tablet Take 1 tablet by mouth nightly. 30 tablet 3 01/07/2024 EPINEPHrine 0.3 mg/0.3 mL Auto-Injector Inject 0.3 mL IM once as needed for allergic reaction (Throat tight, difficulty breathing). Call 911 as directed. 1 kit 11 12/18/2023 documented as of this encounter Progress Notes * Harley Montanez RN - 02/24/2024 12:29 PM EST NV unchanged, VSS. Pt ambulated w/ walker and SBA w/o issue. LDA's removed, CT site redressed. AVS printed and reviewed, time given for questions w/ pt. Pt escorted to exit w/ belongings to family vehicle. * Jeanna Ryan MD - 02/24/2024 9:46 AM EST Critical Care Surgery Staff Inpatient Progress Note Patient seen and examined on critical care rounds. Jt Grayson is a 63 y.o. female with the following active issues: Patient Active Problem List Diagnosis Code Back pain M54.9 Right leg pain M79.604 Left leg pain M79.605 Critical limb ischemia of both lower extremities with autologous bypass graft I70.423 Critical limb ischemia of both lower extremities with bypass graft I70.323 HPI: 63 y.o. female former smoker with a 30 pack year history, PMH of systemic mastocytosis (on famotidine, zyrtec, singulair), thoracic outlet syndrome s/p scalenectomy and first rib resection and aortobifemoral bypass in 2012 for aortoiliac occlusive disease who was admitted to vascular medicine on 02/03 and 02/08 for worsening left foot pain at rest and found to have occlusion of both limbs of her aortobifemoral bypass and underwent scheduled thoracobifemoral bypass 02/15 and was transferred the SICU for postoperative hemodynamic and neurovascular monitoring. 24 Hr EVENTS: Levo off Chest tube removed EXAM: VITALS: Temp: [36.2 ??C (97.2 ??F)-37.1 ??C (98.8 ??F)] Heart Rate: [82-118] Resp: [16-26] BP: (105-144)/(50-81) SpO2: [87 %-100 %] Heart Rate from SpO2: [82 bpm-119 bpm] I/O: I/O last 3 completed shifts: In: 1737.4 [P.O.:800; I.V.:937.4] Out: 816 [Urine:650; Other:166] Body mass index is 21.09 kg/m??.within normal limits GEN: awake, alert HEENT: NC/NT, anicteric sclera, MMM PULM: CTA B in anterior lung ron, post op dressing in place. Pleuravac to water seal CARDIAC: RRR GI: soft, ND MSK: SCDs in place DERM: warm, dry NEURO: conversant, follows commands briskly MEDS: SCHEDULED: acetaminophen 975 mg Oral Q6H JENNIFER lidocaine 1 patch Transdermal Daily aspirin 81 mg Oral Daily piperacillin-tazobactam 3.375 g Intravenous Q8H heparin (porcine) 5,000 Units Subcutaneous Q8H JENNIFER ipratropium-albuteroL 3 mL Nebulization Q4H JENNIFER sodium chloride 4 mL Nebulization Q8H sodium chloride 0.9 % (flush) 5 mL Intravenous BID famotidine 20 mg Oral BID montelukast 5 mg Oral Nightly loratadine 10 mg Oral Daily sodium chloride 0.9 % (flush) 5 mL Intravenous BID PRN: senna-docusate, traZODone, potassium chloride ER, melatonin, polyethylene glycoL (MIRALAX) oral powder AND bisacodyL AND bisacodyL EC AND lactulose AND lactulose AND magnesium citrate AND Tap water enema, ondansetron, prochlorperazine, sodium chloride 0.9 % (flush), lidocaine, lidocaine, diphenhydrAMINE, lidocaine LABS: Recent Labs 02/24/24 0007 02/22/24 0020 WBC 7.73 7.28 HGB 9.0* 8.1* HCT 27.0* 24.6* PLATELET 302 271 Recent Labs 02/24/24 0007 02/23/24 0737 02/22/24 0020 NA 143 -- 139 K 3.6 3.7 3.3* CL 107 -- 104 CO2 24 -- 26 BUN 5* -- 6* CREATININE 0.68* -- 0.58* GLUCOSE 115 -- 124 CALCIUM 8.6 -- 8.2* MAGNESIUM 0.86 -- 0.85 PHOS 4.0 -- 3.9 ABG (Arterial Blood Gas) No results found for: PHART, PO2ART, OCN3SEX RAD: Reviewed. IS PATIENT CRITICALLY ILL ? 1. Is there a high potential of sudden, clinically significant, or life threatening deterioration? No 2. Is there a need for direct personal assessment and management to treat/prevent multiple vital organ failure/deterioration? No PATIENT IS CRITICALLY ILL WITH THESE DIAGNOSES BEING MANAGED BY [facility] TEAM: Hypotension Arterial ASSESSMENT, MANAGEMENT, and DECISION MAKIN y.o. female s/p thoraco-bifemoral bypass. Acute hypoxic respiratory failure from splinting, re-inflation edema vs HAP. PLAN: 1. NEURO: Tylenol 2. PULM: chest tube now out, on RA 3. CARDIAC: appears well resuscitated, Cont to monitor closely for signs of recurrent shock. Levo now off, d/c central line TTE 02/21 normal 4. FEN/GI: regular diet 5. RENAL: Good UOP. Self-diuresis. QOD labs 6. ENDO: SSI 7. HEME: Home meds for systemic mastocytosis. Transfuse as necessary . Iron studies show anemia of chronic disease 8. ID: leukocytosis, pulmonary infiltrates. HAP: Citrobacter. Cont Zosyn (D7/7). 9. PROPHYLAXIS: SCD, SQ Heparin, Pepcid OK for transfer to floor status JEANNA RYAN MD * Haley Mendoza, RD - 02/23/2024 1:50 PM EST Nutrition Progress Note Jt Grayson is a 63 y.o. 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 Interval History No data found. Reason for Assessment: Follow-up Nutrition Recommendations: Regular diet Monitor and encourage po intake - please document % po Mg and phos with daily labs Monitor BM Daily weights I was able to discuss plan with provider JAZMÍN R1 1726 . Current Nutrition Regimen: Active Orders Diet Regular diet Frequency: Effective Now Number of Occurrences: Until Specified Assessment: Lab Results Component Value Date NA 139 02/22/2024 K 3.7 02/23/2024 CL 104 02/22/2024 CO2 26 02/22/2024 BUN 6 (L) 02/22/2024 CREATININE 0.58 (L) 02/22/2024 ESTGFR 102 02/22/2024 MAGNESIUM 0.85 02/22/2024 CALCIUM 8.2 (L) 02/22/2024 PHOS 3.9 02/22/2024 AST 13 02/04/2024 ALT 18 02/04/2024 ALKPHOS 94 02/04/2024 BILITOT 0.3 02/04/2024 BILIDIR <0.2 02/04/2024 IRON 24 (L) 02/22/2024 No results found for: POCGLU Patient Lines/Drains/Airways Status Active Nutritional LDAs Name Placement date Placement time Site Days Percutaneous Central Line 02/18/241942 Triple Lumen 7 Fr internal jugular vein, left 02/18/241942-- 5 Oxygen Therapy / Airway Device: None (Room air) Shift Pressure Injury Prevention Occiput: No Injury Thoracic Spine: No Injury Sacral: Redness, Blanchable Ischial - left: No Injury Ischial - right: No Injury Heel - left: No Injury Heel - right: No Injury Elbow - left: No Injury Elbow - right: No Injury Device Sites: no devices, BP Cuff, ECG Leads, O2 sat monitor Other Sites: CT, Central Line Last Bowel Movement: 02/22/24 Intake/Output Summary (Last 24 hours) at 02/23/2024 1427 Last data filed at 02/23/2024 1400 Gross per 24 hour Intake 939.43 ml Output 186 ml Net 753.43 ml Relevant medications: pepcid, pericolace Anthropometrics: Admit Weight: 55.79 kg Estimated body mass index is 21.71 kg/m?? as calculated from the following: Height as of this encounter: 160 cm (5' 3). Weight as of this encounter: 55.6 kg (122 lb 9.2 oz). [place] Body Weight (IBW) (kg): 52.27 Wt Readings from Last 10 Encounters: 02/23/24 55.6 kg (122 lb 9.2 oz) 02/09/24 56.2 kg (124 lb) 02/04/24 56.2 kg (124 lb) 01/28/24 57.3 kg (126 lb 5.2 oz) 01/07/24 56.4 kg (124 lb 5.4 oz) 12/15/23 54.4 kg (120 lb) 11/25/23 55 kg (121 lb 4.1 oz) 10/27/11 55.3 kg (122 lb) 09/22/11 54.4 kg (120 lb) Patient Vitals for the past 168 hrs: Weight 02/23/24 0600 55.6 kg (122 lb 9.2 oz) 02/22/24 0500 57.5 kg (126 lb 12.2 oz) 02/20/24 0600 59.7 kg (131 lb 9.8 oz) 02/19/24 0600 59.8 kg (131 lb 13.4 oz) 02/17/24 0600 59.7 kg (131 lb 9.8 oz) 02/16/24 1800 59 kg (130 lb 1.1 oz) Weight Source: Bed Estimated / Assessed Needs: Kcal / K - 1495 Kcal (20 Kcal/Kg - 25 Kcal/Kg) Estimated Protein Needs: 90 g - 120 g (1.5 g/Kg - 2.0 g/Kg) Nutrition intake and intake history / interview: 02/22: Patient extubated and off TF. Po intake variable, 0-75% per flowsheets. Weight trending up, +7.3L. 02/18: Consulted for TF recs. Per team, starting trickle TF only today. No data found. Nutrition Focused Physical Exam: Not performed Reason NFPE Not Performed: Patient not available at time of assessment. Malnutrition Diagnosis: Not enough data to assess (CRISTINA Maloney J Parenteral Enteral Nutr. 2011; 36(3): 273-83) Nutrition to continue to follow up while inpatient Thank you, Haley Brewer. Reji, MS, RD, LD, [facility] Clinical Nutrition * Sergio Higgins MD - 02/23/2024 11:27 AM EST Interval Note - Chest Tube Removal Decision made to remove chest tube given improving respiratory status and downtrending output. Suture cut. Patient asked to hum and tube removed without incident. Occlusive dressing immediately placed. Plan for post-pull CXR in 4 hours. Sergio Higgins MD 02/23/24 11:30 AM Surgical ICU, [facility] * Jeanna Ryan MD - 02/23/2024 10:07 AM EST Critical Care Surgery Staff Inpatient Progress Note Patient seen and examined on critical care rounds. Jt Grayson is a 63 y.o. female with the following active issues: Patient Active Problem List Diagnosis Code Back pain M54.9 Right leg pain M79.604 Left leg pain M79.605 Critical limb ischemia of both lower extremities with autologous bypass graft I70.423 Critical limb ischemia of both lower extremities with bypass graft I70.323 HPI: 63 y.o. female former smoker with a 30 pack year history, PMH of systemic mastocytosis (on famotidine, zyrtec, singulair), thoracic outlet syndrome s/p scalenectomy and first rib resection and aortobifemoral bypass in 2012 for aortoiliac occlusive disease who was admitted to vascular medicine on 02/03 and 02/08 for worsening left foot pain at rest and found to have occlusion of both limbs of her aortobifemoral bypass and underwent scheduled thoracobifemoral bypass 02/15 and was transferred the SICU for postoperative hemodynamic and neurovascular monitoring. 24 Hr EVENTS: Levo off and on, now back on EXAM: VITALS: Temp: [36.8 ??C (98.2 ??F)-37.1 ??C (98.8 ??F)] Heart Rate: [75-100] Resp: [16-29] BP: (78-129)/(40-69) SpO2: [92 %-100 %] Heart Rate from SpO2: [75 bpm-99 bpm] I/O: I/O last 3 completed shifts: In: 1882.3 [P.O.:1150; I.V.:717.3; Other:15] Out: 300 [Other:300] Body mass index is 21.71 kg/m??.within normal limits GEN: awake, alert HEENT: NC/NT, anicteric sclera, MMM PULM: CTA B in anterior lung ron, post op dressing in place. Pleuravac to water seal CARDIAC: RRR GI: soft, ND MSK: SCDs in place DERM: warm, dry NEURO: conversant, follows commands briskly MEDS: SCHEDULED: lidocaine 1 patch Transdermal Daily aspirin 81 mg Oral Daily senna-docusate 2 tablet Oral BID piperacillin-tazobactam 3.375 g Intravenous Q8H heparin (porcine) 5,000 Units Subcutaneous Q8H JENNIFER ipratropium-albuteroL 3 mL Nebulization Q4H JENNIFER sodium chloride 4 mL Nebulization Q8H sodium chloride 0.9 % (flush) 5 mL Intravenous BID famotidine 20 mg Oral BID montelukast 5 mg Oral Nightly loratadine 10 mg Oral Daily sodium chloride 0.9 % (flush) 5 mL Intravenous BID PRN: acetaminophen, potassium chloride ER, melatonin, HYDROmorphone OR HYDROmorphone, HYDROmorphone, polyethylene glycoL (MIRALAX) oral powder AND bisacodyL AND bisacodyL EC AND lactulose AND lactulose AND magnesium citrate AND Tap water enema, ondansetron, prochlorperazine, sodium chloride 0.9 % (flush), lidocaine, lidocaine, diphenhydrAMINE, lidocaine LABS: Recent Labs 02/22/24 0020 02/21/24 0124 WBC 7.28 6.95 HGB 8.1* 8.2* HCT 24.6* 24.8* PLATELET 271 238 Recent Labs 02/23/24 0737 02/22/24 0020 02/21/24 0124 02/20/24 1840 02/20/24 1056 NA -- 139 141 -- -- K 3.7 3.3* 3.5 3.7 3.5 CL -- 104 105 -- -- CO2 -- 26 26 -- -- BUN -- 6* 6* -- -- CREATININE -- 0.58* 0.57* -- -- GLUCOSE -- 124 82 -- -- CALCIUM -- 8.2* 8.1* -- -- MAGNESIUM -- 0.85 0.85 -- -- PHOS -- 3.9 3.3 -- -- ABG (Arterial Blood Gas) No results found for: PHART, PO2ART, CVW8APE RAD: Reviewed. IS PATIENT CRITICALLY ILL ? 1. Is there a high potential of sudden, clinically significant, or life threatening deterioration? No 2. Is there a need for direct personal assessment and management to treat/prevent multiple vital organ failure/deterioration? No PATIENT IS CRITICALLY ILL WITH THESE DIAGNOSES BEING MANAGED BY CCS TEAM: Hypotension Arterial ASSESSMENT, MANAGEMENT, and DECISION MAKIN y.o. female s/p thoraco-bifemoral bypass. Acute hypoxic respiratory failure from splinting, re-inflation edema vs HAP. PLAN: 1. NEURO: Tylenol, PO dilaudid (not taking), tizanidine - stop as may be contributing to hypotension, 2. PULM: left CT to water seal. No airleak 190 mL out for 24h, remove today. Aggressive pulm toilet. Checl CXR 4 hours after chest tube removal. 3. CARDIAC: appears well resuscitated, Cont to monitor closely for signs of recurrent shock. Levo 4. TTE 02/21 normal 4. FEN/GI: Advance per primary service 5. RENAL: Good UOP. Self-diuresis. QOD labs 6. ENDO: SSI 7. HEME: Home meds for systemic mastocytosis. Transfuse as necessary . Iron studies ahow anemia of chronic disease 8. ID: leukocytosis, pulmonary infiltrates. HAP: Citrobacter. Cont Zosyn (D6/7). 9. PROPHYLAXIS: SCD, Heparin, Pepcid JEANNA RYAN MD * Jeanna Ryan MD - 02/22/2024 9:49 AM EST Critical Care Surgery Staff Inpatient Progress Note Patient seen and examined on critical care rounds. Jt Grayson is a 63 y.o. female with the following active issues: Patient Active Problem List Diagnosis Code Back pain M54.9 Right leg pain M79.604 Left leg pain M79.605 Critical limb ischemia of both lower extremities with autologous bypass graft I70.423 Critical limb ischemia of both lower extremities with bypass graft I70.323 HPI: 63 y.o. female former smoker with a 30 pack year history, PMH of systemic mastocytosis (on famotidine, zyrtec, singulair), thoracic outlet syndrome s/p scalenectomy and first rib resection and aortobifemoral bypass in 2012 for aortoiliac occlusive disease who was admitted to vascular medicine on 02/03 and 02/08 for worsening left foot pain at rest and found to have occlusion of both limbs of her aortobifemoral bypass and underwent scheduled thoracobifemoral bypass 02/15 and was transferred the SICU for postoperative hemodynamic and neurovascular monitoring. 24 Hr EVENTS: No acute events Epidural to PCEA only EXAM: VITALS: Temp: [36.5 ??C (97.7 ??F)-37 ??C (98.6 ??F)] Heart Rate: [69-109] Resp: [18-29] BP: (74-130)/(34-67) SpO2: [90 %-100 %] Heart Rate from SpO2: [70 bpm-109 bpm] I/O: I/O last 3 completed shifts: In: 2276.9 [P.O.:980; I.V.:1210.9; Other:86] Out: 2875 [Urine:2475; Other:400] Body mass index is 22.46 kg/m??.within normal limits GEN: awake, alert HEENT: NC/NT, anicteric sclera, MMM PULM: CTA B in anterior lung ron, post op dressing in place. Pleuravac to suction CARDIAC: RRR GI: soft, ND MSK: SCDs in place DERM: warm, dry NEURO: conversant, follows commands briskly MEDS: SCHEDULED: Neuraxial/Epidural shift total and Settings verification Epidural 2 Times Daily- Neuraxial Shift Total tiZANidine 4 mg Oral TID lidocaine 1 patch Transdermal Daily aspirin 81 mg Oral Daily senna-docusate 2 tablet Oral BID piperacillin-tazobactam 3.375 g Intravenous Q8H heparin (porcine) 5,000 Units Subcutaneous Q8H JENNIFER ipratropium-albuteroL 3 mL Nebulization Q4H JENNIFER sodium chloride 4 mL Nebulization Q8H sodium chloride 0.9 % (flush) 5 mL Intravenous BID famotidine 20 mg Oral BID montelukast 5 mg Oral Nightly loratadine 10 mg Oral Daily sodium chloride 0.9 % (flush) 5 mL Intravenous BID PRN: potassium chloride ER, HYDROmorphone OR HYDROmorphone, HYDROmorphone, polyethylene glycoL (MIRALAX) oral powder AND bisacodyL AND bisacodyL EC AND lactulose AND lactulose AND magnesium citrate AND Tap water enema, ondansetron, naloxone, nalbuphine, prochlorperazine,sodium chloride 0.9 % (flush), lidocaine, lidocaine, diphenhydrAMINE, lidocaine LABS: Recent Labs 02/22/24 0020 02/21/24 0124 02/20/24 0006 WBC 7.28 6.95 9.76* HGB 8.1* 8.2* 8.5* HCT 24.6* 24.8* 26.0* PLATELET 271 238 214 Recent Labs 02/22/24 0020 02/21/24 0124 02/20/24 1840 02/20/24 1056 02/20/24 0006 NA 139 141 -- -- 141 K 3.3* 3.5 3.7 3.5 3.6 CL 104 105 -- -- 106 CO2 26 26 -- -- 27 BUN 6* 6* -- -- 6* CREATININE 0.58* 0.57* -- -- 0.59* GLUCOSE 124 82 -- -- 117 CALCIUM 8.2* 8.1* -- -- 8.0* MAGNESIUM 0.85 0.85 -- -- 0.83 PHOS 3.9 3.3 -- -- 2.7 ABG (Arterial Blood Gas) No results found for: PHART, PO2ART, [id number] RAD: Reviewed. IS PATIENT CRITICALLY ILL ? 1. Is there a high potential of sudden, clinically significant, or life threatening deterioration? No 2. Is there a need for direct personal assessment and management to treat/prevent multiple vital organ failure/deterioration? No PATIENT IS CRITICALLY ILL WITH THESE DIAGNOSES BEING MANAGED BY CCS TEAM: Hypotension Arterial ASSESSMENT, MANAGEMENT, and DECISION MAKIN y.o. female s/p thoraco-bifemoral bypass. Acute hypoxic respiratory failure from splinting, re-inflation edema vs HAP. PLAN: 1. NEURO: Epidural removed by APS. PO dilaudid, tizanidine, 2. PULM: left CT to -[id number]. No airleak 280 mL out for 24 . Aggressive pulm toilet. 3. CARDIAC: appears well resuscitated, Cont to monitor closely for signs of recurrent shock. Levo 4. Given ongoing pressor requirement will get TTE today. 4. FEN/GI: Advance per primary service 5. RENAL: Good UOP. Self-diuresis. 6. ENDO: SSI 7. HEME: Home meds for systemic mastocytosis. Transfuse as necessary . 8. ID: leukocytosis, pulmonary infiltrates. HAP: Citrobacter. Cont Zosyn (D5/7). 9. PROPHYLAXIS: SCD, Heparin, Pepcid TIME spent on the unit excluding procedures (between the hours of 0800 and 1700). (32) min total critical care time JEANNA RYAN MD Jany Robertson MD - 02/22/2024 9:40 AM EST Acute Pain Medicine Service - Epidural Daily Management VITAL SIGNS: Visit Vitals BP 116/56 (BP Location (NBP): Right arm, Patient Position: Lying) Pulse 95 Temp 36.5 ??C (97.7 ??F) (Oral) Resp 18 Ht 160 cm (5' 3) Wt 57.5 kg (126 lb 12.2 oz) SpO2 94% BMI 22.46 kg/m?? Body mass index is 22.46 kg/m??. Labs: White Blood Cell Date Value Ref Range Status 02/22/2024 7.28 4.00 - 9.50 x10(3)/mcL Final Hemoglobin Date Value Ref Range Status 02/22/2024 8.1 (L) 11.7 - 15.5 g/dL Final Hematocrit Date Value Ref Range Status 02/22/2024 24.6 (L) 35.7 - 45.8 % Final Platelet Date Value Ref Range Status 02/22/2024 271 145 - 357 x10(3)/mcL Final 10/15/2023 313 145 - 357 x10(3)/mcL Final Prothrombin Time Date Value Ref Range Status 02/17/2024 12.6 (H) 9.4 - 12.5 sec Final 10/15/2023 11.7 9.4 - 12.5 sec Final Partial Thromboplastin Time Date Value Ref Range Status 02/17/2024 26 25 - 37 sec Final Comment: The PTT is NOT appropriate for heparin monitoring. Use the Anti-Xa level for heparin monitoring (HEP UFH) or LMWH monitoring (HEP LMW). A PTT less than 37 seconds generally indicates adequate hemostasis. 10/15/2023 32 25 - 37 sec Final Comment: The PTT is NOT appropriate for heparin monitoring. Use the Anti-Xa level for heparin monitoring (HEP UFH) or LMWH monitoring (HEP LMW). A PTT less than 37 seconds generally indicates adequate hemostasis. Operative Procedures: Procedure(s) with comments: @BYPASS GRAFT, AORTOBIFEMORAL W\ SYNTHETIC CONDUIT (WRVU 32.98) - thoraco bifem APMS EPIDURAL ROUNDIN02/22/2024 9:40 AM Average Numeric Rating Pain Score (0-10): 0 Post-Op Day: 6 Epidural Day: 7 Epidural Infusion (solution): BUpivacaine 0.125% Epidural Infusion Rate: 0 mL per hour PCEA Dose: 3 mL every 20 minutes PRN PIEB Dose: 0 mL every 0 minutes Out of Bed: Yes Ambulation: Yes Able to Use Incentive Spirometry: Yes Escalation of Care: No Tolerating Regular Diet: Yes Ileus: No Epidural Catheter Removed (Intact unless noted in Comments): Yes 02/22/2024 9:40 AM Jt is doing very well this morning. Her pain is well-controlled and she offers no complaints. Jt is tolerating a diet and has had ROBF. The surgical service has added PO PRN hydromorphone in anticipation of epidural removal today. Plan: Coagulation status is acceptable (last dose of Heparin received at 0507) and pain is well-controlled. Epidural removed with intact tip. Insertion site is free from signs of infection and was left open to air after catheter removal. APMS will sign off at this time. Please page [phone] with any epidural-related questions or concerns. I, HARLEY MACIAS RN, have performed the documentation for this encounter in the presence of andacting as a scribe for Dr. Jany Juarez. I performed the above scribed service and agree with the accuracy of the note. * Carly Thompson, PT - 02/22/2024 7:32 AM EST Physical Therapy Intervention Note Treatment Number PT: 2 Total duration of encounter: 6 days Patient profile: Jt Grayson is a 63 y.o. 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 S/p 7th rib removal L side PT consult Able to get OOB now post op Interval History/Events: -Pt intubated 02/17 due to acute hypoxic respiratory failure from splinting, re- inflation edema vs HAP. -Extubated 02/19 Social History: Lives in [place], with and dog. works 6-2. 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 3 steps w/ railings to enter 1 floor home. No DME at home. Precautions/Special Considerations: MAP goal > 60 SBP goal <160 Isolation/Infection: No active isolations No active infections Lines/Tubes: Patient Lines/Drains/Airways Status Active Tubes/Lines/Drains Name Placement date Placement time Site Days Percutaneous Central Line 02/18/241942 Triple Lumen 7 Fr internal jugular vein, left 02/18/241942-- 4 Chest Tube 02/16/24 1546 Chest Tube Left lateral 02/16/24 1546 -- 6 Activity Orders: Activity Orders (From admission to next 72h) Start Ordered Unscheduled Activity as tolerated PRN 02/21/24 0737 Diet: Active Orders Diet Regular diet Frequency: Effective Now Number of Occurrences: Until Specified Mobility and Positioning Recommendations: Pt. to utilize FWW w/ 1-2 assist for transfers with nursing. Please encourage up to chair for meal times as able. EP Level 4: Pivot to chair/commode, Participate in self care Subjective: ???walking feels good..weird?? Objective: Pt seen for physical therapy treatment today and presented as follows: Pain: Number Location At rest none With activity none Vital Signs: At Rest With Activity SpO2 (1 -> 3LNC) 94% 1 LNC 87% RA 90% 3LNC BP (MAP) 114/57 (73)mmHg 112/55 (71)mmHg HR 92bpm 86bpm Behavior / Mood: alert and cooperative, motivated, pleasant Oriented to: person, place, and date Follows commands: multi step Attention: WFL Safety awareness: WFL RASS: 0 CAM: neg Vision: WFL Skin: abdominal incision Musculoskeletal: ROM: WFL Sensation: intact Tone: normal Strength: WFL Bed Mobility: Supine to Sit: modified independence to R side EOB Sit to Supine: N/A Transfers: Sit to Stand: supervised from EOB without device Stand to Sit: supervised Bed to Chair: supervised with FWW, stand step transfers Other: N/A Gait: Distance: 150 ft Device Used: FWW Level of Assist: supervised/SBA Gait Comments: no overt LOB, brief dest requiring increased supplemental O2 support Stairs: N/A Balance: Sitting Static: good Sitting Dynamic: good - independent at EOB Standing Static: fair/good with FWW Standing Dynamic / Gait: fair/good with FWW, supervision Self Care: Donned slippers independently Education: patient educated on role of therapy, pacing, PLB, bed mobility, transfers, plan of care, with fair/good understanding/demonstration. Patient status, treatment, and mobility recommendations discussed with nursing. Pt left in bedside recliner chair, with all needs met, with call matias in reach, and with chair alarm active following visit. Team Communication: communication with nursing staff pre/post session regarding readiness and response to therapy intervention. Assessment: Jt Grayson was seen today for physical therapy intervention. Pt continues to be pleasant and participatory in PT sessions. Remains very mobile, alert, oriented, and tolerated activity well, despite recent intubation. Pt able to progress to ambulation with a walker, needing only SBA/supervision. Did desaturate on RA but only needed 3LNC to maintain during the remainder of activity. PT progressing well and remains on track to DC home from a PT perspective. Pt will benefit from skilled therapy services throughout hospitalization to promote safety, independence, and provide developmental support/caregiver education. Discharge Recommendations: Based on the current findings, Anticipated Discharge Disposition (PT): home with supervision, home with home health when medically ready for hospital discharge. Discharge recommendation is based on the patient's current physical impairments, prior functional status, potential to return to prior level of function, patient motivation, reported home support, potential for functional gains, current level of endurance, reported home environment and anticipated trajectory of progress and may change based on patient progress during this hospitalization. Consult Recommendations: Occupational therapy consult Equipment Needs: Anticipated Equipment Needs at Discharge (PT): None Inpatient/Acute Care PT Plan: Therapy Frequency (PT): 1-3 more times for therapy. x Consult service will continue to follow patient. PT signing off. Recommendations above, page if further consultation required. Goals: Goals ongoing as of 02/22/24 unless otherwise noted Goals: To be achieved by 02/29/24: Pt. to demonstrate knowledge of safety limitations and precautions Pt. to demonstrate understanding of appropriate exercises. Pt. to perform supine to/from sitting EOB with modified independence Pt. to perform sit to/from stand transfers with supervision and no vs LRAD Pt. to ambulate 150 feet with supervision and no vs least restrictive assistive device Pt. to ambulate up/down 3 step/stairs using single railing with supervision Pt to tolerate upright positioning with VSS Time IN / OUT: 7522-0892 Total Minutes, Physical Therapy: 20 Billing Code: x1 TEF Thank you for this consult. Carly Thompson, PT, DPT, [facility] Pager: [phone] Physical Therapy Inpatient Rehabilitation Department * Jony Perez MD - 02/21/2024 9:54 AM EST Critical Care Surgery Staff Inpatient Progress Note Author: Jony Perez MD Patient seen and examined on critical care rounds. Jt Grayson is a 63 y.o. female with the following active issues: Patient Active Problem List Diagnosis Code Back pain M54.9 Right leg pain M79.604 Left leg pain M79.605 Critical limb ischemia of both lower extremities with autologous bypass graft I70.423 Critical limb ischemia of both lower extremities with bypass graft I70.323 HPI: 63 y.o. 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 24 Hr EVENTS: Extubated Epidural to PCEA per APS EXAM: VITALS: Temp: [37.3 ??C (99.1 ??F)-37.7 ??C (99.9 ??F)] Heart Rate: [78-100] Resp: [17-26] BP: (99-122)/(42-64) SpO2: [91 %-100 %] Heart Rate from SpO2: [77 bpm-100 bpm] I/O: I/O last 3 completed shifts: In: 2511.6 [P.O.:300; I.V.:1548.3; Other:112.3; NG/GT:378; IV Piggyback:18] Out: 3455 [Urine:3105; Other:350] Body mass index is 23.31 kg/m??.within normal limits GEN: awake, alert HEENT: NC/NT, anicteric sclera, MMM PULM: CTA B in anterior lung ron, post op dressing in place. Pleuravac to suction CARDIAC: RRR GI: soft, ND MSK: SCDs in place DERM: warm, dry NEURO: conversant, follows commands briskly MEDS: SCHEDULED: Neuraxial/Epidural shift total and Settings verification Epidural 2 Times Daily- Neuraxial Shift Total tiZANidine 4 mg Oral TID lidocaine 1 patch Transdermal Daily aspirin 81 mg Oral Daily senna-docusate 2 tablet Oral BID piperacillin-tazobactam 3.375 g Intravenous Q8H heparin (porcine) 5,000 Units Subcutaneous Q8H JENNIFER ipratropium-albuteroL 3 mL Nebulization Q4H JENNIFER sodium chloride 4 mL Nebulization Q8H sodium chloride 0.9 % (flush) 5 mL Intravenous BID famotidine 20 mg Oral BID montelukast 5 mg Oral Nightly loratadine 10 mg Oral Daily sodium chloride 0.9 % (flush) 5 mL Intravenous BID PRN: HYDROmorphone OR HYDROmorphone, HYDROmorphone, potassium chloride in water OR potassium chloride in water OR potassium chloride in water, polyethylene glycoL (MIRALAX) oral powder AND bisacodyL AND bisacodyL EC AND lactulose AND lactulose AND magnesium citrate AND Tap water enema, ondansetron, naloxone, nalbuphine, prochlorperazine, sodium chloride 0.9 % (flush), lidocaine, lidocaine, diphenhydrAMINE, lidocaine LABS: Recent Labs 02/21/24 0124 02/20/24 0006 02/19/24 0003 02/18/24 1455 WBC 6.95 9.76* 11.99* 9.95* HGB 8.2* 8.5* 8.9* 9.3* HCT 24.8* 26.0* 26.9* 28.7* PLATELET 238 214 192 183 Recent Labs 02/21/24 0124 02/20/24 1840 02/20/24 1056 02/20/24 0006 02/19/24 0800 02/19/24 0003 02/18/24 1455 NA 141 -- -- 141 139 141 143 K 3.5 3.7 3.5 3.6 3.8 3.4* 3.4* CL 105 -- -- 106 104 107 107 CO2 26 -- -- 27 28 26 29 BUN 6* -- -- 6* 5* 6* 6* CREATININE 0.57* -- -- 0.59* 0.54* 0.59* 0.66* GLUCOSE 82 -- -- 117 111 130 111 CALCIUM 8.1* -- -- 8.0* 7.8* 8.0* 7.9* MAGNESIUM 0.85 -- -- 0.83 -- 0.77 -- PHOS 3.3 -- -- 2.7 2.6 2.3* -- ABG (Arterial Blood Gas) No results found for: PHART, PO2ART, GDY7NDM RAD: Reviewed. IS PATIENT CRITICALLY ILL ? 1. Is there a high potential of sudden, clinically significant, or life threatening deterioration? Yes 2. Is there a need for direct personal assessment and management to treat/prevent multiple vital organ failure/deterioration? Yes PATIENT IS CRITICALLY ILL WITH THESE DIAGNOSES BEING MANAGED BY [facility] TEAM: Hypotension Arterial ASSESSMENT, MANAGEMENT, and DECISION MAKIN y.o. female s/p thoraco-bifemoral bypass. Acute hypoxic respiratory failure from splinting, re-inflation edema vs HAP. PLAN: 1. NEURO: Epidural for pain control. APS following. 2. PULM: CT to -[id number]. Aggressive pulm toilet. 3. CARDIAC: appears well resuscitated, Cont to monitor closely for signs of recurrent shock. 4. FEN/GI: Advance per primary service 5. RENAL: Good UOP. Cont to monitor as endpoint of resuscitation. Self-diuresis. 6. ENDO: SSI 7. HEME: Home meds for systemic mastocytosis. Transfuse as necessary. 8. ID: leukocytosis, pulmonary infiltrates. HAP: Citrobacter. Cont Zosyn (D4/7). 9. PROPHYLAXIS: SCD, Heparin, Pepcid TIME spent on the unit excluding procedures (between the hours of 0800 and 1700). (25) min of direct patient care, including examination (5) min reviewing laboratory/radiographic data (3) min preparing documentation (0) min coordinating care with other providers or family (33) min total critical care time JONY PEREZ MD * Jany Juarez MD - 02/21/2024 7:59 AM EST Acute Pain Medicine Service - Epidural Daily Management VITAL SIGNS: Visit Vitals BP 109/55 (BP Location (NBP): Right arm, Patient Position: Lying) Pulse 93 Temp 37.3 ??C (99.1 ??F) (Bladder) Resp 22 Ht 160 cm (5' 3) Wt 59.7 kg (131 lb 9.8 oz) SpO2 91% BMI 23.31 kg/m?? Body mass index is 23.31 kg/m??. Labs: White Blood Cell Date Value Ref Range Status 02/21/2024 6.95 4.00 - 9.50 x10(3)/mcL Final Hemoglobin Date Value Ref Range Status 02/21/2024 8.2 (L) 11.7 - 15.5 g/dL Final Hematocrit Date Value Ref Range Status 02/21/2024 24.8 (L) 35.7 - 45.8 % Final Platelet Date Value Ref Range Status 02/21/2024 238 145 - 357 x10(3)/mcL Final 10/15/2023 313 145 - 357 x10(3)/mcL Final Prothrombin Time Date Value Ref Range Status 02/17/2024 12.6 (H) 9.4 - 12.5 sec Final 10/15/2023 11.7 9.4 - 12.5 sec Final Partial Thromboplastin Time Date Value Ref Range Status 02/17/2024 26 25 - 37 sec Final Comment: The PTT is NOT appropriate for heparin monitoring. Use the Anti-Xa level for heparin monitoring (HEP UFH) or LMWH monitoring (HEP LMW). A PTT less than 37 seconds generally indicates adequate hemostasis. 10/15/2023 32 25 - 37 sec Final Comment: The PTT is NOT appropriate for heparin monitoring. Use the Anti-Xa level for heparin monitoring (HEP UFH) or LMWH monitoring (HEP LMW). A PTT less than 37 seconds generally indicates adequate hemostasis. Operative Procedures: Procedure(s) with comments: @BYPASS GRAFT, AORTOBIFEMORAL W\ SYNTHETIC CONDUIT (WRVU 32.98) - thoraco bifem APMS EPIDURAL ROUNDIN02/21/2024 7:10 AM Average Numeric Rating Pain Score (0-10): 0 Post-Op Day: 5 Epidural Day: 6 Epidural Infusion (solution): BUpivacaine 0.125% Epidural Infusion Rate: 2 mL per hour PCEA Dose: 3 mL every 20 minutes PRN Out of Bed: No Ambulation: No Able to Use Incentive Spirometry: Yes Escalation of Care: No Tolerating Regular Diet: No Ileus: No Epidural Catheter Removed (Intact unless noted in Comments): No Ms. Grayson was extubated yesterday. She is doing well this morning and reports good pain control currently. Epidural turned to PCEA only today and will plan to remove tomorrow as it will be epidural day 7. Epidural site appears benign this morning, was redressed after rounds yesterday. Fellow:: Kaden Marie DO Attending Physician:: Jany Juarez MD * Enedelia Ty APRN - 02/21/2024 7:07 AM EST Vascular Surgery Progress Note Patient ID Jt Grayson is a 63 y.o. female with a history of significant aortoiliac occlusive disease with lifestyle limiting claudication (s/p aortobifemoral bypass UV, 2013), neurogenic thoracic outlet syndrome (s/p first rib resection and scalenectomy UV), and systemic mastocytosis who was recently admitted to the vascular surgery service with worsening left foot pain. The patient has not had any changes to her motor or sensory function. The patient's right limb of her aortobifemoral bypass was incidentally found to be occluded on a CT in August 2023, however she has been asymptomatic from this. The patient is a former smoker and quit in 2012. She was started on a heparin drip while admitted however was discharged on a lovenox bridge. Prior vascular history See above Operations This Hospitalization Bilateral aortobifemoral bypass, left femoral endarterectomy (02/15, [facility]/Belinda/Isabel) Active Hospital Problems Diagnosis Critical limb ischemia of both lower extremities with bypass graft Resolved Hospital Problems No resolved problems to display. Active Non-Hospital Problems Diagnosis Critical limb ischemia of both lower extremities with autologous bypass graft Left leg pain Back pain Right leg pain Scheduled Medications: Neuraxial/Epidural shift total and Settings verification Epidural 2 Times Daily- Neuraxial Shift Total tiZANidine 4 mg Oral TID lidocaine 1 patch Transdermal Daily aspirin 81 mg Oral Daily senna-docusate 2 tablet Oral BID piperacillin-tazobactam 3.375 g Intravenous Q8H heparin (porcine) 5,000 Units Subcutaneous Q8H JENNIFER ipratropium-albuteroL 3 mL Nebulization Q4H JENNIFER sodium chloride 4 mL Nebulization Q8H sodium chloride 0.9 % (flush) 5 mL Intravenous BID famotidine 20 mg Oral BID montelukast 5 mg Oral Nightly loratadine 10 mg Oral Daily sodium chloride 0.9 % (flush) 5 mL Intravenous BID 24 hour events/subjective: - Extubated - Doing well this AM, pleasant/conversant/requesting chest tube removal - On 1 of to maintain MAPs > 60 - Epidural and morris in place, plan to remove epidural tomorrow - Last Bowel Movement: 02/21/24 Objective BMI: Weight: 59.7 kg (131 lb 9.8 oz) (02/20/24 0600) BMI (Calculated): 23.04 BMI Classification: Normal Weight Intake/Output Summary (Last 24 hours) at 02/21/2024 1507 Last data filed at 02/21/2024 1400 Gross per 24 hour Intake 1161.3 ml Output 2885 ml Net -1723.7 ml Temp: [36.8 ??C (98.2 ??F)-37.5 ??C (99.5 ??F)] Heart Rate: [76-109] Resp: [17-29] BP: (74-126)/(40-64) SpO2: [91 %-100 %] Heart Rate from SpO2: [76 bpm-109 bpm] Physical Exam: GEN: Alert and appears stated age. Cooperative. In NAD. HEENT: Normocephalic and atraumatic. CV: Regular rate. Pulm: Breathing on room air. Abd: Soft, non-distended, non-tender to palpation. Skin: Color, texture, turgor normal. Neuro: Sensation and motor grossly intact. Able to wiggle toes, plantarflex, and dorsiflex L/R foot. Extremities: L and R groin incision sites with mepilex bandage c/d/I, no evidence of hematoma or active drainage. Vascular: 2+ DP pulses palpable on right and left Labs Last 3 wbc, hgb, hct plt Recent Labs 02/21/24 0124 02/20/24 0006 02/19/24 0003 WBC 6.95 9.76* 11.99* HGB 8.2* 8.5* 8.9* HCT 24.8* 26.0* 26.9* PLATELET 238 214 192 Last 3 Lytes Recent Labs 02/21/24 0124 02/20/24 1840 02/20/24 1056 02/20/24 0006 02/19/24 0800 NA 141 -- -- 141 139 K 3.5 3.7 3.5 3.6 3.8 CL 105 -- -- 106 104 CO2 26 -- -- 27 28 BUN 6* -- -- 6* 5* CREATININE 0.57* -- -- 0.59* 0.54* Last Ca, Mg, Phos Recent Labs 02/21/24 012 CALCIUM 8.1* PHOS 3.3 MAGNESIUM 0.85 Last 3 Coags Recent Labs 02/17/24 1610 02/17/24 0605 02/17/24 0014 PT 12.6* 12.2 11.4 INR 1.1 1.1 1.0 PTT 26 27 26 New Studies Results for orders placed or performed during the hospital encounter of 02/16/24 XR Chest One View (Exam End: 02/17/2024 8:01 AM) Result Value WORKSTATION ID [id number] Impression Collapsed left lower lobe and partially collapsed right lower lobe. Thank you for letting us participate in the care of this patient. If you are a health care provider and have any questions regarding this report, please contact the number below. For patients who have questions please contact the health floor care technician that requested your imaging first. Electronically signed by: Clark Tolentino MD, [facility] ([phone]), at 02/17/2024 9:35 AM XR Chest One View (Exam End: 02/17/2024 3:33 PM) Result Value WORKSTATION ID [id number] Impression 1. No definitive pneumothorax. 2. Small bilateral pleural effusions. 3. Unchanged bilateral lower lobe collapse. Thank you for letting us participate in the care of this patient. If you are a health care provider and have any questions regarding this report, please contact the number below. For patients who have questions please contact the health floor care technician that requested your imaging first. Electronically signed by: Clark Johnson MD, [facility] ([phone]), at 02/18/2024 12:[address] Angiogram Chest for Pulmonary Embolus w Contrast (Exam End: 02/18/2024 12:07 AM) Result Value WORKSTATION ID [id number] Impression 1. No pulmonary embolism. 2. Persistent bilateral lower lobe collapse and partial right middle lobe collapse. 3. Nonspecific patchy ground glass opacities within the bilateral upper lobes. Differential can include patchy interstitial edema versus atypical infectious/inflammatory process. 4. Trace bilateral pleural effusions. 5. Trace left pneumothorax. 6. Unchanged diffuse osseous sclerosis. Please correlate with evidence of myelodysplastic syndrome such as mastocytosis. Preliminary report signed by: Sam Claudio DO at 02/18/2024 12:54 AM I have personally reviewed the image(s) and the resident's interpretation and agree with the findings, Clark Johnson MD at 02/18/2024 1:13 AM Thank you for letting us participate in the care of this patient. If you are a health care provider and have any questions regarding this report, please contact the number below. For patients who have questions please contact the health floor care technician that requested your imaging first. Electronically signed by: [facility] ([phone]), at 02/18/2024 1:13 AM XR Chest One View (Exam End: 02/18/2024 4:48 AM) Result Value WORKSTATION ID [id number] Impression 1. Endotracheal tube tip projects over the lower trachea, 3.4 cm above the rema. 2. Enteric tube tip and side-port project over the stomach. 3. Improved aeration of the bilateral lower lobes with residual subsegmental atelectasis. 4. Trace pleural effusions. 5. No definitive pneumothorax. Thank you for letting us participate in the care of this patient. If you are a health care provider and have any questions regarding this report, please contact the number below. For patients who have questions please contact the health floor care technician that requested your imaging first. Electronically signed by: Clark Johnson MD, [facility] ([phone]), at 02/18/2024 4:56 AM XR Chest One View (Exam End: 02/18/2024 8:07 PM) Result Value WORKSTATION ID [id number] Impression 1. New left IJ central venous catheter projects over the lower SVC. 2. Other support lines and tubes as above. 3. Small left basilar pleural fluid collection. 4. No large pneumothorax, sensitivity limited by supine positioning. 5. Persistent bilateral airspace opacities left greater than right. Thank you for letting us participate in the care of this patient. If you are a health care provider and have any questions regarding this report, please contact the number below. For patients who have questions please contact the health floor care technician that requested your imaging first. Electronically signed by: Luis Enrique Pena MD, [facility] ([phone]), at 02/19/2024 12:17 AM XR Chest One View (Exam End: 02/20/2024 5:04 AM) Result Value WORKSTATION ID [id number] Impression 1. Unchanged left lower lobe opacity concerning for any combination of small effusion and atelectasis or pneumonia. 2. Possible trace left apical pneumothorax. Thank you for letting us participate in the care of this patient. If you are a health care provider and have any questions regarding this report, please contact the number below. For patients who have questions please contact the health floor care technician that requested your imaging first. Electronically signed by: Clark Johnson MD, [facility] ([phone]), at 02/20/2024 6:10 AM Assessment & Plan Jt Grayson is a 63 y.o. female status postaortobifemoral bypass, left femoral endarterectomy. Her recovery has unfortunately been complicated by post- operative respiratory issues in the setting ofa lobe collapse, with increasing oxygen requirements and work of breathing to maintain adequate oxygen saturations ultimately requiring re-intubation early AM on 02/17. She was successfully extubatedon 02/19. From a vascular standpoint, her incision sites appear stable and healing appropriately, and she has palpable distal pulses bilaterally, which is reassuring. We will continue to monitor her closely and greatly appreciate the multidisciplinary coordination of care between the critical care, respiratory therapy, and all other teams involved in her complex case. Plan: - Wean pressors as able - Continue to f/u cxs - Chest tube to remain in place today, with ongoing monitoring of need - Aspirin 81mg daily PO - SBP goal <160, PRN hydralazine and labetalol available - Discontinue Morris, initiate voiding trial - Tylenol, dilaudid PRN. APS epidural, recs appreciated - SQH for DVT ppx - Labs per ICU, replete lytes PRN - Appreciate respiratory therapy recommendations - Diet: Regular - ICU level of care Enedelia Ty APRN Vascular Surgery 02/21/24 Pager [phone] * Jony Perez MD - 02/20/2024 12:50 PM EST Critical Care Surgery Staff Inpatient Progress Note Author: Jony Perez MD Patient seen and examined on critical care rounds. Jt Grayson is a 63 y.o. female with the following active issues: Patient Active Problem List Diagnosis Code Back pain M54.9 Right leg pain M79.604 Left leg pain M79.605 Critical limb ischemia of both lower extremities with autologous bypass graft I70.423 Critical limb ischemia of both lower extremities with bypass graft I70.323 HPI: 63 y.o. 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 24 Hr EVENTS: Mucomyst nebs D/c propofol, started precedex ASA per Heme BAL with citrobacter. EXAM: VITALS: Temp: [37.1 ??C (98.8 ??F)-38.3 ??C (100.9 ??F)] Heart Rate: [74-88] Resp: [14-25] BP: (88-124)/(38-65) SpO2: [91 %-97 %] Heart Rate from SpO2: [74 bpm-89 bpm] I/O: I/O last 3 completed shifts: In: 2948 [I.V.:2216.2; Other:181.9; NG/GT:372; IV Piggyback:18] Out: 5 [Urine:1655; Other:410] Body mass index is 23.31 kg/m??.within normal limits GEN: intubated, arousable HEENT: NC/NT, anicteric sclera, MMM PULM: CTA B in anterior lung ron, post op dressing in place. Pleuravac to suction CARDIAC: RRR GI: soft, ND MSK: SCDs in place DERM: warm, dry NEURO: intubated, RASS -1, follows commands briskly. MEDS: SCHEDULED: aspirin 81 mg Oral Daily acetylcysteine 600 mg Inhalation BID senna-docusate 2 tablet Oral BID piperacillin-tazobactam 3.375 g Intravenous Q8H Neuraxial/Epidural shift total and Settings verification Epidural 2 Times Daily- Neuraxial Shift Total heparin (porcine) 5,000 Units Subcutaneous Q8H JENNIFER ipratropium-albuteroL 3 mL Nebulization Q4H JENNIFER sodium chloride 4 mL Nebulization Q8H sodium chloride 0.9 % (flush) 5 mL Intravenous BID famotidine 20 mg Oral BID montelukast 5 mg Oral Nightly loratadine 10 mg Oral Daily sodium chloride 0.9 % (flush) 5 mL Intravenous BID PRN: potassium chloride in water OR potassium chloride in water OR potassium chloride in water, polyethylene glycoL (MIRALAX) oral powder AND bisacodyL AND bisacodyL EC AND lactulose AND lactulose AND magnesium citrate AND Tap water enema, HYDROmorphone OR HYDROmorphone, HYDROmorphone, ondansetron, naloxone, nalbuphine, prochlorperazine, sodium chloride 0.9 % (flush), lidocaine, lidocaine, diphenhydrAMINE, lidocaine LABS: Recent Labs 02/20/24 0006 02/19/24 0003 02/18/24 1455 02/18/24 0032 02/17/24 1802 02/17/24 1610 WBC 9.76* 11.99* 9.95* 12.68* 10.65* 10.67* HGB 8.5* 8.9* 9.3* 10.2* 10.5* 10.7* HCT 26.0* 26.9* 28.7* 31.3* 32.0* 32.7* PLATELET 214 192 183 197 174 192 PT -- -- -- -- -- 12.6* INR -- -- -- -- -- 1.1 PTT -- -- -- -- -- 26 Recent Labs 02/20/24 1056 02/20/24 0006 02/19/24 0800 02/19/24 0003 02/18/24 1455 02/18/24 0032 NA -- 141 139 141 143 139 K 3.5 3.6 3.8 3.4* 3.4* 4.0 CL -- 106 104 107 107 106 CO2 -- 27 28 26 29 26 BUN -- 6* 5* 6* 6* 6* CREATININE -- 0.59* 0.54* 0.59* 0.66* 0.66* GLUCOSE -- 117 111 130 111 140 CALCIUM -- 8.0* 7.8* 8.0* 7.9* 8.0* MAGNESIUM -- 0.83 -- 0.77 -- 0.78 PHOS -- 2.7 2.6 2.3* -- 2.3* ABG (Arterial Blood Gas) No results found for: PHART, PO2ART, [id number] RAD: Reviewed. IS PATIENT CRITICALLY ILL ? 1. Is there a high potential of sudden, clinically significant, or life threatening deterioration? Yes 2. Is there a need for direct personal assessment and management to treat/prevent multiple vital organ failure/deterioration? Yes PATIENT IS CRITICALLY ILL WITH THESE DIAGNOSES BEING MANAGED BY [facility] TEAM: Hypotension Arterial ASSESSMENT, MANAGEMENT, and DECISION MAKIN y.o. female s/p thoraco-bifemoral bypass. Acute hypoxic respiratory failure from splinting, re-inflation edema vs HAP. PLAN: 1. NEURO: precedex for sedation. Fentanyl gtt and Epidural for pain control. APS following. 2. PULM: CT to -[id number]. Acute hypoxic respiratory failure. Improving, Trial of extubation. Start IPPV, aggressive pulm toilet. 3. CARDIAC: appears well resuscitated, pressor support likely secondary to sedation and vasoplegia.Will d/c LR infusion. Cont to monitor closely for signs of recurrent shock. 4. FEN/GI: trophic TF via OGT. 5. RENAL: Good UOP. Cont to monitor as endpoint of resuscitation. Self-diuresis. 6. ENDO: SSI 7. HEME: Home meds for systemic mastocytosis. Heme consult per vascular surgery. Transfuse as necessary. 8. ID: leukocytosis, pulmonary infiltrates. HAP: Citrobacter. Cont Zosyn (D3/7). 9. PROPHYLAXIS: SCD, Heparin, Pepcid TIME spent on the unit excluding procedures (between the hours of 0800 and 1700). (32) min of direct patient care, including examination (5) min reviewing laboratory/radiographic data (3) min preparing documentation (0) min coordinating care with other providers or family (40) min total critical care time JONY PEREZ MD * Liu Koroma RCP - 02/20/2024 11:58 AM EST Illness Severity Stable Respiratory Modalities: NC 2L Patient Summary Admitted: 02/16/2024 Age: 63 y.o. Code Status: FULL. HPI: status post aortobifemoral bypass, left femoral endarterectomy on 02/15 PMHx: aortoiliac occlusive disease with lifestyle limiting claudication (s/p aortobifemoral bypass [facility], 2013), neurogenic thoracic outlet syndrome (s/p first rib resection and scalenectomy [facility]), and systemic mastocytosis Events w/ date: 02/16: increasing FIO2 requirement w/ no reserve w/ movement - placed on HFNC. Later in the day, placed on CPAP +10/60% due to worsening hypoxia L & R lower lobes collapsed. 02/16 PM: BiPAP initiated 17/11 70%, pt felt she couldn't breath w/ CPAP. --> ultimately intubated d/t WOB & hypoxia. Bilat lower lobe collapse, CT PE negative. 02/17 Day: Pt transitioned to PS for spontaneous triggering. Mini BAL completed and sample was sentto lab. 02/17 pm - weaned to 30% and 8 of PEEP 02/18 Day: weaned PS to 10 and PEEP to 5. 02/18 PM: Passes SBT, placed on PSV 5/5 after SBT, minimal secretions 02/19 Patient extubated to 2L NC at 11:13 AM. +phonation, +cuff leak, +bilateral diminished breath sounds. Action List Medications/ACT: Duo Q4 3% Q8 Mucomyst 600mg BID IPV TID PRN Situational Awareness & Contingency Planning Admitted for worsening left foot pain - found to have occlusion of both limbs of her aortobifemoralbypass. * Jany Juarez MD - 02/20/2024 7:55 AM EST Acute Pain Medicine Service - Epidural Daily Management VITAL SIGNS: Visit Vitals BP 101/52 (BP Location (NBP): Right arm, Patient Position: Lying) Pulse 78 Temp 37.2 ??C (99 ??F) (Bladder) Resp 20 Ht 160 cm (5' 3) Wt 59.7 kg (131 lb 9.8 oz) SpO2 95% BMI 23.31 kg/m?? Body mass index is 23.31 kg/m??. Labs: White Blood Cell Date Value Ref Range Status 02/20/2024 9.76 (H) 4.00 - 9.50 x10(3)/mcL Final Hemoglobin Date Value Ref Range Status 02/20/2024 8.5 (L) 11.7 - 15.5 g/dL Final Hematocrit Date Value Ref Range Status 02/20/2024 26.0 (L) 35.7 - 45.8 % Final Platelet Date Value Ref Range Status 02/20/2024 214 145 - 357 x10(3)/mcL Final 10/15/2023 313 145 - 357 x10(3)/mcL Final Prothrombin Time Date Value Ref Range Status 02/17/2024 12.6 (H) 9.4 - 12.5 sec Final 10/15/2023 11.7 9.4 - 12.5 sec Final Partial Thromboplastin Time Date Value Ref Range Status 02/17/2024 26 25 - 37 sec Final Comment: The PTT is NOT appropriate for heparin monitoring. Use the Anti-Xa level for heparin monitoring (HEP UFH) or LMWH monitoring (HEP LMW). A PTT less than 37 seconds generally indicates adequate hemostasis. 10/15/2023 32 25 - 37 sec Final Comment: The PTT is NOT appropriate for heparin monitoring. Use the Anti-Xa level for heparin monitoring (HEP UFH) or LMWH monitoring (HEP LMW). A PTT less than 37 seconds generally indicates adequate hemostasis. Operative Procedures: Procedure(s) with comments: @BYPASS GRAFT, AORTOBIFEMORAL W\ SYNTHETIC CONDUIT (WRVU 32.98) - thoraco bifem APS Opioid Administration Hx All administrations since 02/19/2024 are shown below each listed medication. Other Order Route Rate Dose Action Date fentaNYL (PF) (50 mcg/mL) infusion syringe 50 mL Intravenous 0.5 mL/hr 25 mcg/hr Rate/Dose Verify 02/19/2024 Intravenous 0.5 mL/hr 25 mcg/hr Rate/Dose Verify 02/19/2024 Intravenous 0.5 mL/hr 25 mcg/hr Rate/Dose Verify 02/19/2024 Intravenous 0.5 mL/hr 25 mcg/hr Rate/Dose Verify 02/19/2024 Intravenous 0.5 mL/hr 25 mcg/hr Rate/Dose Verify 02/19/2024 APMS EPIDURAL ROUNDIN02/20/2024 7:25 AM Average Numeric Rating Pain Score (0-10): 0 Post-Op Day: 4 Epidural Day: 5 Epidural Infusion (solution): HYDROmorphone 10 mcg/mL Epidural Infusion Rate: 2 mL per hour PCEA Dose: 3 mL every 20 minutes PRN Out of Bed: No Ambulation: No Able to Use Incentive Spirometry: No Escalation of Care: No Tolerating Regular Diet: No Ileus: No Epidural Catheter Removed (Intact unless noted in Comments): No Ms. Grayson remains intubated, sedated, and requiring pressors in the ICU. Will defer to CCS for dressing assessment, per report has looked benign overnight. Will plan to continue epidural at current settings today. Fellow:: Kaden Marie DO Attending Physician:: Jany Juarez MD * Darek Pierson, [facility] - 02/20/2024 6:01 AM EST Illness Severity Stable Respiratory Modalities: PS/CPAP 5/+5, 30 % Airway: 7.5 @ 21 Gum Patient Summary Admitted: 02/16/2024 Age: 63 y.o. Code Status: FULL. HPI: status post aortobifemoral bypass, left femoral endarterectomy on 02/15 PMHx: aortoiliac occlusive disease with lifestyle limiting claudication (s/p aortobifemoral bypass [facility], 2012), neurogenic thoracic outlet syndrome (s/p first rib resection and scalenectomy [facility]), and systemic mastocytosis Events w/ date: 02/16: increasing FIO2 requirement w/ no reserve w/ movement - placed on HFNC. Later in the day, placed on CPAP +10/60% due to worsening hypoxia L & R lower lobes collapsed. 02/16 PM: BiPAP initiated 17/11 70%, pt felt she couldn't breath w/ CPAP. --> ultimately intubated d/t WOB & hypoxia. Bilat lower lobe collapse, CT PE negative. 02/17 Day: Pt transitioned to PS for spontaneous triggering. Mini BAL completed and sample was sentto lab. 02/17 pm - weaned to 30% and 8 of PEEP 02/18 Day: weaned PS to 10 and PEEP to 5. 02/18 PM: Passes SBT, placed on PSV 5/5 after SBT, minimal secretions Action List Medications/ACT: Duo Q4 3% Q8 Mucomyst 600mg BID IPV TID PRN * Cecilio Mayes RCP - 02/19/2024 5:25 PM EST AMV Protocol: Yes SBT Protocol: Yes Vent Settings: Ventilator Mode: PS/CPAP PEEP Set: (S) 5 FiO2: 30 % PSV: (S) 10 Ventilator Measurements: Resp: 25 Vt Spontaneous: 392 Ve: 6 SpO2: 93 % EtCO2: 31 mmHg Airway: 7.5 @ 21 cm at the Gum. Illness Severity Stable Respiratory Modalities: PS/CPAP (S) 10/+(S) 5, 30 % Airway: 7.5 @ 21 Gum Patient Summary Admitted: 02/16/2024 Age: 63 y.o. Code Status: FULL. HPI: status post aortobifemoral bypass, left femoral endarterectomy on 02/15 PMHx: aortoiliac occlusive disease with lifestyle limiting claudication (s/p aortobifemoral bypass [facility], 2013), neurogenic thoracic outlet syndrome (s/p first rib resection and scalenectomy [facility]), and systemic mastocytosis Events w/ date: 02/16: increasing FIO2 requirement w/ no reserve w/ movement - placed on HFNC. Later in the day, placed on CPAP +10/60% due to worsening hypoxia L & R lower lobes collapsed. 02/16 PM: BiPAP initiated 17/11 70%, pt felt she couldn't breath w/ CPAP. --> ultimately intubated d/t WOB & hypoxia. Bilat lower lobe collapse, CT PE negative. 02/17 Day: Pt transitioned to PS for spontaneous triggering. Mini BAL completed and sample was sentto lab. 02/17 pm - weaned to 30% and 8 of PEEP 02/18 Day: weaned PS to 10 and PEEP to 5. Action List Medications/ACT: Duo Q4 3% Q8 Mucomyst 600mg BID IPV TID PRN * Jony Perez MD - 02/19/2024 12:37 PM EST Critical Care Surgery Staff Inpatient Progress Note Author: Jony Perez MD Patient seen and examined on critical care rounds. Jt Grayson is a 63 y.o. female with the following active issues: Patient Active Problem List Diagnosis Code Back pain M54.9 Right leg pain M79.604 Left leg pain M79.605 Critical limb ischemia of both lower extremities with autologous bypass graft I70.423 Critical limb ischemia of both lower extremities with bypass graft I70.323 HPI: 63 y.o. 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 24 Hr EVENTS: L IJ CVC placed Hypotension treated with fluid boluses and levophed. Well perfused Repeat cultures taken, diagnosed with HAP: ABX started. Mini-BAL pending EXAM: VITALS: Temp: [37.1 ??C (98.8 ??F)-37.9 ??C (100.2 ??F)] Heart Rate: [86-105] Resp: [18-29] BP: (82-135)/(34-67) SpO2: [91 %-100 %] Heart Rate from SpO2: [86 bpm-106 bpm] I/O: I/O last 3 completed shifts: In: 5313.7 [I.V.:4790.1; Other:193.6] Out: 3500 [Urine:2810; Other:690] Body mass index is 23.35 kg/m??.within normal limits GEN: intubated, sedated HEENT: NC/NT, anicteric sclera, MMM PULM: CTA B in anterior lung ron, post op dressing in place. Pleuravac to suction CARDIAC: RRR GI: soft, ND MSK: SCDs in place DERM: warm, dry NEURO: intubated, RASS -1, follows commands briskly. MEDS: SCHEDULED: acetylcysteine 600 mg Inhalation BID chlorhexidine 15 mL Oral BID senna-docusate 2 tablet Oral BID aspirin 300 mg Rectal Daily azithromycin 500 mg Oral Daily piperacillin-tazobactam 3.375 g Intravenous Q8H Neuraxial/Epidural shift total and Settings verification Epidural 2 Times Daily- Neuraxial Shift Total heparin (porcine) 5,000 Units Subcutaneous Q8H JENNIFER ipratropium-albuteroL 3 mL Nebulization Q4H JENNIFER sodium chloride 4 mL Nebulization Q8H sodium chloride 0.9 % (flush) 5 mL Intravenous BID famotidine 20 mg Oral BID montelukast 5 mg Oral Nightly loratadine 10 mg Oral Daily sodium chloride 0.9 % (flush) 5 mL Intravenous BID PRN: potassium chloride ER OR potassium chloride ER, potassium, sodium phosphates OR potassium, sodium phosphates, polyethylene glycoL (MIRALAX) oral powder AND bisacodyL AND bisacodyL EC AND lactulose AND lactulose AND magnesium citrate AND Tap water enema, HYDROmorphone OR HYDROmorphone, HYDROmorphone, propofoL AND propofoL, ondansetron, naloxone, nalbuphine, prochlorperazine, sodium chloride 0.9 % (flush), lidocaine, lidocaine, diphenhydrAMINE, sodium chloride 0.9 % (flush), lidocaine LABS: Recent Labs 02/19/24 0003 02/18/24 1455 02/18/24 0032 02/17/24 1802 02/17/24 1610 02/17/24 0605 02/17/24 0014 02/16/24 1802 WBC 11.99* 9.95* 12.68* 10.65* 10.67* 10.78* 10.74* 13.48* HGB 8.9* 9.3* 10.2* 10.5* 10.7* 10.7* 10.8* 11.4* HCT 26.9* 28.7* 31.3* 32.0* 32.7* 31.8* 32.6* 34.7* PLATELET 192 183 197 174 192 189 188 185 PT -- -- -- -- 12.6* 12.2 11.4 11.7 INR -- -- -- -- 1.1 1.1 1.0 1.0 PTT -- -- -- -- 26 27 26 31 Recent Labs 02/19/24 0800 02/19/24 0003 02/18/24 1455 02/18/24 0032 02/17/24 1802 02/17/24 0605 02/17/24 0014 02/16/24 180 NA 139 141 143 139 139 < > 138 138 K 3.8 3.4* 3.4* 4.0 4.1 < > 4.8 4.3 CL 104 107 107 106 107 < > 109* 110* CO2 28 26 29 26 25 < > 22 20* BUN 5* 6* 6* 6* 7* < > 6* 7* CREATININE 0.54* 0.59* 0.66* 0.66* 0.68* < > 0.60* 0.65* GLUCOSE 111 130 111 140 113 < > 112 174* CALCIUM 7.8* 8.0* 7.9* 8.0* 8.1* < > 8.6 8.7 MAGNESIUM -- 0.77 -- 0.78 -- -- 0.81 0.90 PHOS 2.6 2.3* -- 2.3* -- -- 4.4 4.5 < > = values in this interval not displayed. ABG (Arterial Blood Gas) No results found for: PHART, PO2ART, [id number] RAD: Reviewed. IS PATIENT CRITICALLY ILL ? 1. Is there a high potential of sudden, clinically significant, or life threatening deterioration? Yes 2. Is there a need for direct personal assessment and management to treat/prevent multiple vital organ failure/deterioration? Yes PATIENT IS CRITICALLY ILL WITH THESE DIAGNOSES BEING MANAGED BY [facility] TEAM: Hypotension Arterial ASSESSMENT, MANAGEMENT, and DECISION MAKIN y.o. female s/p thoraco-bifemoral bypass. Acute hypoxic respiratory failure from splinting, re-inflation edema vs HAP. PLAN: 1. NEURO: d/c propofol, start precedex for sedation in attempt to wean pressor support. Fentanyl gtt and Epidural for pain control. APS following. 2. PULM: CT to -[id number]. Acute hypoxic respiratory failure. Improving, titrate as needed. IPV for lung recruitment. SBT this PM. Mucomyst and deep suctioning. If LLL not recruited in AM or if hypoxiaworsens, will consider therapeutic bronchoscopy. 3. CARDIAC: appears well resuscitated, pressor support likely secondary to sedation and vasoplegia.Will d/c LR infusion. Cont to monitor closely for signs of recurrent shock. 4. FEN/GI: trophic TF via OGT. 5. RENAL: Good UOP. Cont to monitor as endpoint of resuscitation. Self-diuresis. 6. ENDO: SSI 7. HEME: Home meds for systemic mastocytosis. Heme consult per vascular surgery. Transfuse as necessary. 8. ID: leukocytosis, pulmonary infiltrates. HAP. Cont empiric ABX (Zosyn and Azithromycin D2). F/u mini BAL. F/u blood and urine cultures. 9. PROPHYLAXIS: SCD, Heparin, Pepcid TIME spent on the unit excluding procedures (between the hours of 0800 and 1700). (35) min of direct patient care, including examination (5) min reviewing laboratory/radiographic data (3) min preparing documentation (0) min coordinating care with other providers or family (43) min total critical care time JONY PEERZ MD * Jany Juarez MD - 02/19/2024 11:03 AM EST Acute Pain Medicine Service - Epidural Daily Management VITAL SIGNS: Visit Vitals BP 113/54 (BP Location (NBP): Right arm, Patient Position: Lying) Pulse 98 Temp 37.9 ??C (100.2 ??F) (Bladder) Resp 22 Ht 160 cm (5' 3) Wt 59.8 kg (131 lb 13.4 oz) SpO2 92% BMI 23.35 kg/m?? Body mass index is 23.35 kg/m??. Labs: White Blood Cell Date Value Ref Range Status 02/19/2024 11.99 (H) 4.00 - 9.50 x10(3)/mcL Final Hemoglobin Date Value Ref Range Status 02/19/2024 8.9 (L) 11.7 - 15.5 g/dL Final Hematocrit Date Value Ref Range Status 02/19/2024 26.9 (L) 35.7 - 45.8 % Final Platelet Date Value Ref Range Status 02/19/2024 192 145 - 357 x10(3)/mcL Final 10/15/2023 313 145 - 357 x10(3)/mcL Final Prothrombin Time Date Value Ref Range Status 02/17/2024 12.6 (H) 9.4 - 12.5 sec Final 10/15/2023 11.7 9.4 - 12.5 sec Final Partial Thromboplastin Time Date Value Ref Range Status 02/17/2024 26 25 - 37 sec Final Comment: The PTT is NOT appropriate for heparin monitoring. Use the Anti-Xa level for heparin monitoring (HEP UFH) or LMWH monitoring (HEP LMW). A PTT less than 37 seconds generally indicates adequate hemostasis. 10/15/2023 32 25 - 37 sec Final Comment: The PTT is NOT appropriate for heparin monitoring. Use the Anti-Xa level for heparin monitoring (HEP UFH) or LMWH monitoring (HEP LMW). A PTT less than 37 seconds generally indicates adequate hemostasis. Operative Procedures: Procedure(s) with comments: @BYPASS GRAFT, AORTOBIFEMORAL W\ SYNTHETIC CONDUIT (WRVU 32.98) - thoraco bifem APS Opioid Administration Hx All administrations since 02/18/2024 are shown below each listed medication. Other Order Route Rate Dose Action Date fentaNYL (PF) (50 mcg/mL) infusion syringe 50 mL Intravenous 0.5 mL/hr 25 mcg/hr Rate/Dose Verify 02/19/2024 Intravenous 0.5 mL/hr 25 mcg/hr Rate/Dose Verify 02/19/2024 Intravenous 0.5 mL/hr 25 mcg/hr Rate/Dose Verify 02/19/2024 Intravenous 0.5 mL/hr 25 mcg/hr Rate/Dose Verify 02/19/2024 Intravenous 0.5 mL/hr 25 mcg/hr Rate/Dose Verify 02/19/2024 Intravenous 0.5 mL/hr 25 mcg/hr Rate/Dose Verify 02/18/2024 Intravenous 0.5 mL/hr 25 mcg/hr Rate/Dose Verify 02/18/2024 Intravenous 0.5 mL/hr 25 mcg/hr Rate/Dose Verify 02/18/2024 Intravenous 0.5 mL/hr 25 mcg/hr Rate/Dose Verify 02/18/2024 Intravenous 0.5 mL/hr 25 mcg/hr Rate/Dose Verify 02/18/2024 Intravenous 0.5 mL/hr 25 mcg/hr Rate/Dose Verify 02/18/2024 Intravenous 0.5 mL/hr 25 mcg/hr Rate/Dose Verify 02/18/2024 Intravenous 0.5 mL/hr 25 mcg/hr New Bag 02/18/2024 fentaNYL (50 mcg/mL) bolus from infusion 25 mcg Intravenous 25 mcg Bolus from Infusion 02/18/2024 APMS EPIDURAL ROUNDIN02/19/2024 11:03 PM Average Numeric Rating Pain Score (0-10): 0 Post-Op Day: 3 Epidural Day: 4 Epidural Infusion (solution): BUpivacaine 0.125% Epidural Infusion Rate: 2 mL per hour PCEA Dose: 3 mL every 20 minutes PRN Pharmacologic or Epidural Intervention to treat: Hypotension Out of Bed: No Ambulation: No Able to Use Incentive Spirometry: No Escalation of Care: No Tolerating Regular Diet: No Ileus: No Epidural Catheter Removed (Intact unless noted in Comments): No Jt remains in the ICU, intubated, sedated, and requiring pressor support. Per nursing notes, the patient's pain appears to be well-controlled. Plan: Defer to nursing for dressing assessment. Please page APS with any concerns at 1976. We made no changes to the epidural regimen today and will defer to ICU team on epidural management while the patient remains intubated. APMS will continue to follow. HARLEY Hemphill RN, have performed the documentation for this encounter in the presence of andacting as a scribe for Dr. Jany Juarez. APMS Nurse: Harley Macias RN Fellow:: Kaden Marie DO Attending Physician:: Jany Juarez MD I performed the above scribed service and agree with the accuracy of the note. * Zulema Junior APRN - 02/19/2024 9:16 AM EST Vascular Surgery Progress Note Patient ID Jt Grayson is a 63 y.o. 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 The patient has not had any changes to her motor or sensory function. The patient's right limb of her aortobifemoral bypass was incidentally found to be occluded on a CT in August 2023, however she has been asymptomatic from this. The patient is a former smoker and quit in 2012. She was started on a heparin drip while admitted however was discharged on a lovenox bridge. Prior vascular history See above Operations This Hospitalization Bilateral aortobifemoral bypass, left femoral endarterectomy (02/15, Seg[facility]/Belinda/Isabel) Active Hospital Problems Diagnosis Critical limb ischemia of both lower extremities with bypass graft Resolved Hospital Problems No resolved problems to display. Active Non-Hospital Problems Diagnosis Critical limb ischemia of both lower extremities with autologous bypass graft Left leg pain Back pain Right leg pain Scheduled Medications: shift total and Settings verification 1 each Intravenous 2 Times Daily - Shift Total azithromycin 500 mg Oral Daily piperacillin-tazobactam 3.375 g Intravenous Q8H Neuraxial/Epidural shift total and Settings verification Epidural 2 Times Daily- Neuraxial Shift Total heparin (porcine) 5,000 Units Subcutaneous Q8H JENNIFER ipratropium-albuteroL 3 mL Nebulization Q4H JENNIFER sodium chloride 4 mL Nebulization Q8H sodium chloride 0.9 % (flush) 5 mL Intravenous BID famotidine 20 mg Oral BID montelukast 5 mg Oral Nightly loratadine 10 mg Oral Daily insulin lispro 1-4 Units Subcutaneous Q4H JENNIFER sodium chloride 0.9 % (flush) 5 mL Intravenous BID 24 hour events/Subjective - Vent Fi02 30% 11/15 pressure support - Levo 6mcg/min - sedated fentanyl propofol - afebrile - resp panel neg, BAL neg - WBC 11.99 from 9.95 - Hgb 8.9 from 9.3 - CT 230cc Objective BMI: Weight: 59.8 kg (131 lb 13.4 oz) (02/19/24 0600) BMI (Calculated): 23.04 BMI Classification: Normal Weight Intake/Output Summary (Last 24 hours) at 02/19/2024 0916 Last data filed at 02/19/2024 0800 Gross per 24 hour Intake 4421.12 ml Output 2400 ml Net 2020.12 ml Temp: [37.1 ??C (98.8 ??F)-38.2 ??C (100.8 ??F)] Heart Rate: [89-98] Resp: [16-26] BP: (82-121)/(34-62) SpO2: [91 %-100 %] Heart Rate from SpO2: [89 bpm-98 bpm] Physical Exam: GEN: Alert and appears stated age. Cooperative. In NAD. HEENT: Normocephalic and atraumatic. CV: Regular rate. Pulm: Breathing on room air. Abd: Soft, non-distended, non-tender to palpation. Skin: Color, texture, turgor normal. Neuro: Sensation and motor grossly intact. Able to wiggle toes, plantarflex, and dorsiflex L/R foot. Extremities: L and R groin incision sites with mepilex bandage c/d/I, no evidence of hematoma or active drainage. Vascular: 2+ DP pulses palpable on right and left Labs Last 3 wbc, hgb, hct plt Recent Labs 02/19/24 0003 02/18/24 1455 02/18/24 0032 WBC 11.99* 9.95* 12.68* HGB 8.9* 9.3* 10.2* HCT 26.9* 28.7* 31.3* PLATELET 192 183 197 Last 3 Lytes Recent Labs 02/19/24 0800 02/19/24 0003 02/18/24 1455 NA 139 141 143 K 3.8 3.4* 3.4* CL 104 107 107 CO2 28 26 29 BUN 5* 6* 6* CREATININE 0.54* 0.59* 0.66* Last Ca, Mg, Phos Recent Labs 02/19/24 0800 02/19/24 0003 CALCIUM 7.8* 8.0* PHOS 2.6 2.3* MAGNESIUM -- 0.77 Last 3 Coags Recent Labs 02/17/24 1610 02/17/24 0605 02/17/24 0014 PT 12.6* 12.2 11.4 INR 1.1 1.1 1.0 PTT 26 27 26 New Studies Results for orders placed or performed during the hospital encounter of 02/16/24 XR Chest One View (Exam End: 02/17/2024 8:01 AM) Result Value WORKSTATION ID [id number] Impression Collapsed left lower lobe and partially collapsed right lower lobe. Thank you for letting us participate in the care of this patient. If you are a health care provider and have any questions regarding this report, please contact the number below. For patients who have questions please contact the health floor care technician that requested your imaging first. Electronically signed by: Clark Tolentino MD, [facility] ([phone]), at 02/17/2024 9:35 AM XR Chest One View (Exam End: 02/17/2024 3:33 PM) Result Value WORKSTATION ID [id number] Impression 1. No definitive pneumothorax. 2. Small bilateral pleural effusions. 3. Unchanged bilateral lower lobe collapse. Thank you for letting us participate in the care of this patient. If you are a health care provider and have any questions regarding this report, please contact the number below. For patients who have questions please contact the health floor care technician that requested your imaging first. Electronically signed by: Clark Johnson MD, [facility] ([phone]), at 02/18/2024 12:[address] Angiogram Chest for Pulmonary Embolus w Contrast (Exam End: 02/18/2024 12:07 AM) Result Value WORKSTATION ID [id number] Impression 1. No pulmonary embolism. 2. Persistent bilateral lower lobe collapse and partial right middle lobe collapse. 3. Nonspecific patchy ground glass opacities within the bilateral upper lobes. Differential can include patchy interstitial edema versus atypical infectious/inflammatory process. 4. Trace bilateral pleural effusions. 5. Trace left pneumothorax. 6. Unchanged diffuse osseous sclerosis. Please correlate with evidence of myelodysplastic syndrome such as mastocytosis. Preliminary report signed by: Sam Claudio DO at 02/18/2024 12:54 AM I have personally reviewed the image(s) and the resident's interpretation and agree with the findings, Clark Johnson MD at 02/18/2024 1:13 AM Thank you for letting us participate in the care of this patient. If you are a health care provider and have any questions regarding this report, please contact the number below. For patients who have questions please contact the health floor care technician that requested your imaging first. Electronically signed by: Clark Johnson MD, [facility] ([phone]), at 02/18/2024 1:13 AM XR Chest One View (Exam End: 02/18/2024 4:48 AM) Result Value WORKSTATION ID [id number] Impression 1. Endotracheal tube tip projects over the lower trachea, 3.4 cm above the rema. 2. Enteric tube tip and side-port project over the stomach. 3. Improved aeration of the bilateral lower lobes with residual subsegmental atelectasis. 4. Trace pleural effusions. 5. No definitive pneumothorax. Thank you for letting us participate in the care of this patient. If you are a health care provider and have any questions regarding this report, please contact the number below. For patients who have questions please contact the health floor care technician that requested your imaging first. Electronically signed by: Clark Johnson MD, [facility] ([phone]), at 02/18/2024 4:56 AM XR Chest One View (Exam End: 02/18/2024 8:07 PM) Result Value WORKSTATION ID [id number] Impression 1. New left IJ central venous catheter projects over the lower SVC. 2. Other support lines and tubes as above. 3. Small left basilar pleural fluid collection. 4. No large pneumothorax, sensitivity limited by supine positioning. 5. Persistent bilateral airspace opacities left greater than right. Thank you for letting us participate in the care of this patient. If you are a health care provider and have any questions regarding this report, please contact the number below. For patients who have questions please contact the health floor care technician that requested your imaging first. Electronically signed by: Luis Enrique Pena MD, [facility] ([phone]), at 02/19/2024 12:17 AM Assessment & Plan Jt Grayson is a 63 y.o. female status postaortobifemoral bypass, left femoral endarterectomy. Her recovery has unfortunately been complicated by post- operative respiratory issues in the setting ofa lobe collapse, with increasing oxygen requirements and work of breathing to maintain adequate oxygen saturations ultimately requiring re-intubation early AM on 02/17. From a vascular standpoint, her incision sites appear stable and healing appropriately, and she has palpable distal pulses bilaterally which is reassuring. Recommend ASA 300mg rectally weaning vent/sedation/pressors as able, replete lytes, continue to f/ucxs We will continue to monitor her closely and greatly appreciate the multidisciplinary coordination of care between the critical care, respiratory therapy, and all other teams involved in her complex case. - Rectal ASA 300mg daily - SBP goal <160, PRN hydralazine and labetalol available - Bedrest - morris in place - Tylenol, dilaudid PRN. APS epidural, recs appreciated - SQH ppx. NO ASA. - labs per ICU - appreciate respiratory therapy recommendations - Diet: NPO - ICU status Zulema Junior APRN Vascular Surgery 02/19/24 [id number] * Darek Pierson, INFORMATION SCIENTIST - 02/19/2024 5:40 AM EST Illness Severity Stable PS/CPAP 12/+(S) 8, 30 % Airway: 7.5 @ 21 Gum Patient Summary Admitted: 02/16/2024 Age: 63 y.o. Code Status: FULL. HPI: status post aortobifemoral bypass, left femoral endarterectomy on 02/15 PMHx: aortoiliac occlusive disease with lifestyle limiting claudication (s/p aortobifemoral bypass [facility], 2012), neurogenic thoracic outlet syndrome (s/p first rib resection and scalenectomy [facility]), and systemic mastocytosis Events w/ date: 02/16: increasing FIO2 requirement w/ no reserve w/ movement - placed on HFNC. Later in the day, placed on CPAP +10/60% due to worsening hypoxia L & R lower lobes collapsed. 02/16 PM: BiPAP initiated 17/11 70%, pt felt she couldn't breath w/ CPAP. --> ultimately intubated d/t WOB & hypoxia. Bilat lower lobe collapse, CT PE negative. 02/17 Day: Pt transitioned to PS for spontaneous triggering. Mini BAL completed and sample was sentto lab. 02/17 pm - weaned to 30% and 8 of PEEP Action List Medications/ACT: Duo Q4 3% Q8 IPV PRN Situational Awareness & Contingency Planning Admitted for worsening left foot pain - found to have occlusion of both limbs of her aortobifemoralbypass. * Cecilio Mayes RCP - 02/18/2024 4:43 PM EST AMV Protocol: Yes SBT Protocol: Yes Vent Settings: Ventilator Mode: (S) PS/CPAP PEEP Set: 10 FiO2: 35 % PSV: 12 Ventilator Measurements: Resp: 21 Vt Spontaneous: 313 Ve: 6.6 SpO2: 98 % EtCO2: 32 mmHg Airway: 7.5 @ 21 cm at the Gum. Illness Severity Stable Respiratory Modalities: (S) PS/CPAP 12/+10, 35 % Airway: 7.5 @ 21 Gum Patient Summary Admitted: 02/16/2024 Age: 63 y.o. Code Status: FULL. HPI: status post aortobifemoral bypass, left femoral endarterectomy on 02/15 PMHx: aortoiliac occlusive disease with lifestyle limiting claudication (s/p aortobifemoral bypass [facility], 2012), neurogenic thoracic outlet syndrome (s/p first rib resection and scalenectomy [facility]), and systemic mastocytosis Events w/ date: 02/16: increasing FIO2 requirement w/ no reserve w/ movement - placed on HFNC. Later in the day, placed on CPAP +10/60% due to worsening hypoxia L & R lower lobes collapsed. 02/16 PM: BiPAP initiated / 70%, pt felt she couldn't breath w/ CPAP. --> ultimately intubated d/t WOB & hypoxia. Bilat lower lobe collapse, CT PE negative. 02/17 Day: Pt transitioned to PS for spontaneous triggering. Mini BAL completed and sample was sentto lab. Action List Medications/ACT: Duo Q4 3% Q8 IPV TID PRN (not scheduled yet) Cough assist - team communicated they will be taking this order off and replacing it with IPV * Jony Perez MD - 02/18/2024 3:09 PM EST Critical Care Surgery Staff Inpatient Progress Note Author: Jony Perez MD Patient seen and examined on critical care rounds. Jt Grayson is a 63 y.o. female with the following active issues: Patient Active Problem List Diagnosis Code Back pain M54.9 Right leg pain M79.604 Left leg pain M79.605 Critical limb ischemia of both lower extremities with autologous bypass graft I70.423 Critical limb ischemia of both lower extremities with bypass graft I70.323 HPI: 63 y.o. 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 24 Hr EVENTS: Intubated for hypoxic respiratory failure CT PE without PE but did demonstrate lung parenchymal consolidation and ground glass opacities Respiratory viral panel Pressor support for hypotension. EXAM: VITALS: Temp: [36.5 ??C (97.7 ??F)-38.3 ??C (100.9 ??F)] Heart Rate: [90-128] Resp: [16-38] BP: (88-127)/(38-76) SpO2: [83 %-100 %] Heart Rate from SpO2: [89 bpm-129 bpm] I/O: I/O last 3 completed shifts: In: 5047.8 [P.O.:500; I.V.:4266.9; Other:280.9] Out: 3383 [Urine:2610; Other:773] Body mass index is 23.31 kg/m??.within normal limits GEN: intubated, sedated HEENT: NC/NT, anicteric sclera, MMM PULM: CTA B in anterior lung ron, post op dressing in place. Pleuravac to suction CARDIAC: RRR GI: soft, ND MSK: SCDs in place DERM: warm, dry NEURO: intubated, RASS -3 MEDS: SCHEDULED: shift total and Settings verification 1 each Intravenous 2 Times Daily - Shift Total azithromycin 500 mg Oral Daily piperacillin-tazobactam 3.375 g Intravenous Q8H vancomycin 1 g Intravenous Q12H Neuraxial/Epidural shift total and Settings verification Epidural 2 Times Daily- Neuraxial Shift Total heparin (porcine) 5,000 Units Subcutaneous Q8H JENNIFER ipratropium-albuteroL 3 mL Nebulization Q4H JENNIFER sodium chloride 4 mL Nebulization Q8H sodium chloride 0.9 % (flush) 5 mL Intravenous BID famotidine 20 mg Oral BID montelukast 5 mg Oral Nightly loratadine 10 mg Oral Daily insulin lispro 1-4 Units Subcutaneous Q4H JENNIFER sodium chloride 0.9 % (flush) 5 mL Intravenous BID PRN: propofoL AND propofoL, fentaNYL AND [COMPLETED] fentaNYL AND fentaNYL AND shift total and Settings verification AND Assess, senna- docusate, vancomycin, ondansetron, naloxone,nalbuphine, prochlorperazine, sodium chloride 0.9 % (flush), lidocaine, sodium chloride 0.9 % (flush), lidocaine, diphenhydrAMINE, glucose 40% oral geL OR dextrose OR glucagon, sodium chloride 0.9 % (flush), lidocaine LABS: Recent Labs 02/18/24 0032 02/17/24 1802 02/17/24 1610 02/17/24 0605 02/17/24 0014 02/16/24 1802 WBC 12.68* 10.65* 10.67* 10.78* 10.74* 13.48* HGB 10.2* 10.5* 10.7* 10.7* 10.8* 11.4* HCT 31.3* 32.0* 32.7* 31.8* 32.6* 34.7* PLATELET 197 174 192 189 188 185 PT -- -- 12.6* 12.2 11.4 11.7 INR -- -- 1.1 1.1 1.0 1.0 PTT -- -- 26 27 26 31 Recent Labs 02/18/24 0032 02/17/24 1802 02/17/24 1610 02/17/24 0605 02/17/24 0014 02/16/24 1802 NA 139 139 139 138 138 138 K 4.0 4.1 4.3 4.5 4.8 4.3 CL 106 107 105 108* 109* 110* CO2 25 24 22 22 20* BUN 6* 7* 6* 6* 6* 7* CREATININE 0.66* 0.68* 0.71 0.64* 0.60* 0.65* GLUCOSE 140 113 120 103 112 174* CALCIUM 8.0* 8.1* 8.5 8.4* 8.6 8.7 MAGNESIUM 0.78 -- -- -- 0.81 0.90 PHOS 2.3* -- -- -- 4.4 4.5 ABG (Arterial Blood Gas) Lab Results Component Value Date pH, Arterial 7.44 02/17/2024 PO2, Arterial 56 (L) 02/17/2024 PCO2, Arterial 36 02/17/2024 RAD: Reviewed. IS PATIENT CRITICALLY ILL ? 1. Is there a high potential of sudden, clinically significant, or life threatening deterioration? Yes 2. Is there a need for direct personal assessment and management to treat/prevent multiple vital organ failure/deterioration? Yes PATIENT IS CRITICALLY ILL WITH THESE DIAGNOSES BEING MANAGED BY CCS TEAM: Hypotension Arterial ASSESSMENT, MANAGEMENT, and DECISION MAKIN y.o. female s/p thoraco-bifemoral bypass. Clinically stable. PLAN: 1. NEURO: cont propofol. Fentanyl gtt and Epidural for pain control. APS following. 2. PULM: CT to -[id number]. Acute hypoxic respiratory failure. High FiO2, titrate as needed. IPV for lung recruitment. 3. CARDIAC: tachycardia and hypotension c/w postoperative hypovolemia. Cont fluid resuscitation as needed. May benefit from repeat TTE if not responding as expected. 4. FEN/GI: NPO for now. Consider TF via OGT. 5. RENAL: Good UOP. Cont to monitor as endpoint of resuscitation. 6. ENDO: SSI 7. HEME: Home meds for systemic mastocytosis. Heme consult per vascular surgery. Transfuse as necessary. 8. ID: leukocytosis, pulmonary infiltrates. Clinical evidence of HAP. Will start empiric ABX and obtain mini BAL. F/u blood and urine cultures. 9. PROPHYLAXIS: SCD, Heparin, Pepcid TIME spent on the unit excluding procedures (between the hours of 0800 and 1700). (32) min of direct patient care, including examination (6) min reviewing laboratory/radiographic data (3) min preparing documentation (0) min coordinating care with other providers or family (41) min total critical care time JONY PEREZ MD * Karmen Joe RN - 02/18/2024 1:24 PM ESTSummary: Research Office Note RESEARCH NURSE OFFICE NOTE [id number]: (SUMMIT) A MULTI-PART, RANDOMIZED, DOUBLE-BLIND,PLACEBO-CONTROLLED PHASE 2 CLINICAL STUDYOF THE SAFETY AND EFFICACY OF [id number] IN SUBJECTS WITH NONADVANCED SYSTEMIC MASTOCYTOSIS Date of Consent: 01/25/24 Patient currently in screening period Reason for Note: Vascular Service and Hematology Fellow in discussion about this patient and requesting clarification regarding research trial and patient current admission/medication management. From the Exclusion Criteria of the protocol Section 4.2 1) Arterial or venous thrombotic or embolic events such as cerebrovascular accident (including transient ischemic attacks), deep vein thrombosis, or pulmonary embolism within the 6 months before study drug initiation (except for adequately treated catheter-related venous thrombosis occurring more than 1 month before the first dose of study drug). 2) History of clinically significant bleeding event within 30 days before the first dose of study drug or need for therapeutic anticoagulation on study. PLAN 1. Study PI Dr. Edmund Truong is hoping to discuss the above with Vascular Service (Dr. Raymond) in order to establish patient ongoing eligibility status 2. Patient will continue in screening until eligibility determined. * Murtaza Ang MD - 02/18/2024 8:05 AM EST Acute Pain Medicine Service - Epidural Daily Management VITAL SIGNS: Visit Vitals BP 121/61 (BP Location (NBP): Right arm, Patient Position: Lying) Pulse (!) 107 Temp (!) 38.3 ??C (100.9 ??F) (Oral) Comment: MD page Resp 21 Ht 160 cm (5' 3) Wt 59.7 kg (131 lb 9.8 oz) SpO2 99% BMI 23.31 kg/m?? Body mass index is 23.31 kg/m??. Labs: White Blood Cell Date Value Ref Range Status 02/18/2024 12.68 (H) 4.00 - 9.50 x10(3)/mcL Final Hemoglobin Date Value Ref Range Status 02/18/2024 10.2 (L) 11.7 - 15.5 g/dL Final Hematocrit Date Value Ref Range Status 02/18/2024 31.3 (L) 35.7 - 45.8 % Final Platelet Date Value Ref Range Status 02/18/2024 197 145 - 357 x10(3)/mcL Final 10/15/2023 313 145 - 357 x10(3)/mcL Final Prothrombin Time Date Value Ref Range Status 02/17/2024 12.6 (H) 9.4 - 12.5 sec Final 10/15/2023 11.7 9.4 - 12.5 sec Final Partial Thromboplastin Time Date Value Ref Range Status 02/17/2024 26 25 - 37 sec Final Comment: The PTT is NOT appropriate for heparin monitoring. Use the Anti-Xa level for heparin monitoring (HEP UFH) or LMWH monitoring (HEP LMW). A PTT less than 37 seconds generally indicates adequate hemostasis. 10/15/2023 32 25 - 37 sec Final Comment: The PTT is NOT appropriate for heparin monitoring. Use the Anti-Xa level for heparin monitoring (HEP UFH) or LMWH monitoring (HEP LMW). A PTT less than 37 seconds generally indicates adequate hemostasis. Operative Procedures: Procedure(s) with comments: @BYPASS GRAFT, AORTOBIFEMORAL W\ SYNTHETIC CONDUIT (WRVU 32.98) - thoraco bifem APMS EPIDURAL ROUNDIN02/18/2024 8:59 AM Average Numeric Rating Pain Score (0-10): 0 Post-Op Day: 2 Epidural Day: 3 Epidural Infusion (solution): BUpivacaine 0.125% Epidural Infusion Rate: 8 mL per hour PCEA Dose: 3 mL every 20 minutes PRN PIEB Dose: 0 mL every 0 minutes Pharmacologic or Epidural Intervention to treat: Hypotension Out of Bed: No Ambulation: No Able to Use Incentive Spirometry: No Escalation of Care: No Tolerating Regular Diet: No Ileus: No Epidural Catheter Removed (Intact unless noted in Comments): No Jt is intubated and sedated in the ICU this morning after her respiratory status deterioriated overnight. She had been on pressor support, which was just paused by her primary RN. Current BP 121/61. Jt's epidural insertion site was assessed and noted to have some serous drainage. The dressing remains occlusive without any signs of infection and was left in place. Plan: We made no changes to the epidural regimen on rounds and will plan to continue current therapy for the time being. IHARLEY RN, have performed the documentation for this encounter in the presence of andacting as a scribe for Dr. Murtaza Ang. APMS Nurse: Harley Macias RN Resident:: Jony Joaquin MD Fellow:: Kaden Marie DO Attending Physician:: Murtaza Ang MD I performed the above scribed service and agree with the accuracy of the note. MURTAZA ANG MD * Carly Thompson PT - 02/18/2024 7:35 AM EST Physical Therapy Contact Note Patient acutely intubated this AM - remains RASS -5. Not appropriate for ongoing PT interventions today. Will follow up once more stable and able to participate. Please refer to initial evaluation 02/16 for details and recommendations. Carly Thompson PT, DPT, GCS Pager: [phone] 02/18/24 Inpatient Rehabilitation Department * Elise Ceballos RCP - 02/18/2024 6:04 AM EST Respiratory Therapy NIV Note NIV Settings: NIV Mode: CPAP EPAP (cmH20): 10 FiO2 (%): 60 % NIV Measurements: Resp: (!) 32 Mve: 13.1 Leak (L/min): 27 L/min Vte: 397 SpO2: 94 % Skin Assessment: WDL; mepilex applied Assessment: shortly after shift change pt had an excessive air leak on CPAP, several masks tried but ultimately felt like she couldn't breathe wearing CPAP, CCS aware & at bedside. Transitioned pt to BiPAP 16/ 8 70% & seems to be tolerating the change. Ultimately pt had increased WOB w/ tachycardia and higher O2 requirement to maintain SpO2 above 92%. Pt was intubated around 0430 on settings below. Ventilator Mode: VC Tidal Volume Set: 360 Resp Rate Set: 16 PEEP Set: 10 FiO2: 70 % Ventilator Measurements: Resp: 16 Vt Exhaled: 342 PIP: 35 MAP: 14 Plateau Press: 30 Ve: 5.5 PEEP: 10 cmH20 SpO2: 97 % EtCO2:35 mmHg Airway: 7.5 @ 21 Gum Plan: Continue AMV/ SBT protocol; wean vent settings as tolerated. IPV to help recruit collapsed lower lobes. Elise Ceballos RCP * Harley Mcclure MD - 02/18/2024 2:35 AM EST Images from the original note were not included. Crit Care Staff Progress Note Since last update persistent hypoxia, tachypnea, and difficulty with fitting BiPAP mask with air leak. CTA of the chest to eval for other etiologies. Abrupt trucation of bilateral lower lobe proximal segment bronchi with either extrinsic compression or endoluminal material. No PE. Patchy GGO with upper and perihilar lobes. Sagital view: On exam at 2:35 she was not anxious appearing, following commands, can answer questions with fluentspeech. Intermittent leak of BiPAP 18/10 near chin. Thus far we have tried a small face mask, under the nose mask, and at 2:50am moved to a face shied.Intermittent leak on the forehead. Assessment: Ongoing hypoxic respiratory failure from bilateral posterior lobe collapse/atelectasis with subsequent shunt. She does not appear to have a productive cough or large mucous burden. I think she requires recruitment. We have trialed all non invasive means. She does not appear anxious or in pain at this time. My hesitancy intubating her is the next step after she is intubated and recruited. I think we will likely be in the same spot in 12-24 hours with trying to find a plan to keep her recruited as we tryto extubate her again. We are trying all NIV modality now. Plan: Trial CPAP with face shield to assess for tolerance and fit If that does not improve will intubate. Intubation note on 02/15 mac 3, g1v, good mouth opening andneck ROM. Addendum 4:30am No improvement over 1 hour of obs. Remained tachypneic, hypoxic, and symptomatically dyspneic. All NIV options have been exhausted. Intubated without incident. Will trial AMV protocol, PEEP 10, prop sedation, place OGT. Will see if her lower lung zones recruit over the next few hours with IMV. If not can bronch to eval endobronchial debris. IS PATIENT CRITICALLY ILL ? Is there a high potential of sudden, clinically significant, or life threatening deterioration? Yes Is there a need for direct personal assessment and management to treat/prevent multiple vital organfailure/deterioration? Yes PATIENT IS CRITICALLY ILL WITH THESE DIAGNOSES BEING MANAGED BY CCS TEAM: Respiratory Failure Acute with hypoxia Addendum: anemia-likely combination of suspected acute blood loss and probable dilution. I personally performed 30 minutes of aggregate critical care time exclusive of procedures and teaching between 02:30-03:02. This includes time spent during direct patient evaluation and reassessment,interpreting diagnostic tests, directing life and/or organ supporting interventions and documentation on the unit. * Harley Mcclure MD - 02/17/2024 9:43 PM EST Crit Care Staff Progress Note Ms. Grayson is s/p aortobifem bypass and left fem endarterecomy. Over the course of the day she had persistent hypoxia that we presume is secondary to hypoventilation and atelectasis. I reviewed her pre-op TTE 02/04 showed normal BiV function. Bedside spirometry on 02/[address] chest on 02/03 showed mild dependent atelectasis and small subpleural blebs at the apices. CXR this morning with LLL collapse and partial RLL collapse. Similar appearance on CXR this afternoon. Throughout the day today she was on HF with escalating FiO2 and we trailed CPAP ~1600. Increased FiO2 requirements and difficulty tolerating mask. Anxious with the mask. Pain okay. On exam bilat anterior breath sounds. LEFT CXT without air leak BiPAP 14/8 70% TVs 350s (IBW 52kg) and RR 36. SpO2 91% Assessment: Likely atelectasis with associated shunting that we are managing with BIPAP. While she is volume up she does not appear to have pulmonary edema and I have a lower suspicion for a new cardiomyopathy. We will trial consistent PPV with the hope of recruiting additional lung, reducing atelectasis and associated shunt. With this hypothesis I expect to see an increased TV and decreased RR with reduced FiO2. If she does not have a substantial improvement in 1-2 hours we will obtain CTA chest to r/o PE, newpulmonary process, or endobronchial obstruction. IS PATIENT CRITICALLY ILL ? Is there a high potential of sudden, clinically significant, or life threatening deterioration? Yes Is there a need for direct personal assessment and management to treat/prevent multiple vital organfailure/deterioration? Yes PATIENT IS CRITICALLY ILL WITH THESE DIAGNOSES BEING MANAGED BY CCS TEAM: Respiratory Failure Acute with hypoxia I personally performed 40 minutes of aggregate critical care time exclusive of procedures and teaching. This includes time spent during direct patient evaluation and reassessment, interpreting diagnostic tests, directing life and/or organ supporting interventions and documentation on the unit. * Amna Hernandez [facility] - 02/17/2024 6:43 PM EST Illness Severity Watcher Respiratory Modalities: O2 Device: CPAP 60 % HFNC 40/60% Patient Summary Admitted: 02/16/2024 Age: 63 y.o. Code Status: FULL. HPI: status post aortobifemoral bypass, left femoral endarterectomy on 02/15 PMHx: aortoiliac occlusive disease with lifestyle limiting claudication (s/p aortobifemoral bypass [facility], 2012), neurogenic thoracic outlet syndrome (s/p first rib resection and scalenectomy [facility]), and systemic mastocytosis Events w/ date: 02/15: status post aortobifemoral bypass, left femoral endarterectomy - extubated post op 02/16: increasing FIO2 requirement with no reserve with movement - placed on HFNC. Later in the day, placed on CPAP +10/60% due to worsening hypoxia Situational Awareness & Contingency Planning Admitted for worsening left foot pain - found to have occlusion of both limbs of her aortobifemoralbypass. * Jony Perez MD - 02/17/2024 3:36 PM EST Critical Care Surgery Staff Inpatient Progress Note Author: Jony Perez MD Patient seen and examined on critical care rounds. Jt Grayson is a 63 y.o. female with the following active issues: Patient Active Problem List Diagnosis Code Back pain M54.9 Right leg pain M79.604 Left leg pain M79.605 Critical limb ischemia of both lower extremities with autologous bypass graft I70.423 Critical limb ischemia of both lower extremities with bypass graft I70.323 HPI: 63 y.o. 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 24 Hr EVENTS: OR for thoracobifemoral bypass Admit to ICU, HD stable EXAM: VITALS: Temp: [34.6 ??C (94.3 ??F)-37.2 ??C (98.9 ??F)] Heart Rate: [81-113] Resp: [14-31] BP: (110)/(51) SpO2: [86 %-98 %] Heart Rate from SpO2: [81 bpm-113 bpm] I/O: I/O last 3 completed shifts: In: 6900.9 [I.V.:5804; Blood:473; Other:623.9] Out: 2428 [Urine:1425; Other:203; Blood:800] Body mass index is 23.31 kg/m??.within normal limits GEN: awake, alert HEENT: NC/NT, anicteric sclera, MMM PULM: CTA B in anterior lung ron, post op dressing in place. Pleuravac to suction CARDIAC: RRR GI: soft, ND MSK: SCDs in place DERM: warm, dry NEURO: conversant, follows commands briskly MEDS: SCHEDULED: heparin (porcine) 5,000 Units Subcutaneous Q8H JENNIFER Neuraxial/Epidural shift total and Settings verification Epidural 2 Times Daily- Neuraxial Shift Total ipratropium-albuteroL 3 mL Nebulization Once sodium chloride 0.9 % (flush) 5 mL Intravenous BID famotidine 20 mg Oral BID montelukast 5 mg Oral Nightly loratadine 10 mg Oral Daily insulin lispro 1-4 Units Subcutaneous Q4H JENNIFER sodium chloride 0.9 % (flush) 5 mL Intravenous BID PRN: ondansetron, naloxone, nalbuphine, prochlorperazine, sodium chloride 0.9 % (flush), lidocaine,sodium chloride 0.9 % (flush), lidocaine, diphenhydrAMINE, acetaminophen, glucose 40% oral geL OR dextrose OR glucagon, sodium chloride 0.9 % (flush), lidocaine LABS: Recent Labs 02/17/24 0602/17/241302/16/24 1802 WBC 10.78* 10.74* 13.48* HGB 10.7* 10.8* 11.4* HCT 31.8* 32.6* 34.7* PLATELET 189 188 185 PT 12.2 11.4 11.7 INR 1.1 1.0 1.0 PTT 27 26 31 Recent Labs 02/17/24 0602/17/241302/16/24 1802 NA 138 138 138 K 4.5 4.8 4.3 CL 108* 109* 110* CO2 22 22 20* BUN 6* 6* 7* CREATININE 0.64* 0.60* 0.65* GLUCOSE 103 112 174* CALCIUM 8.4* 8.6 8.7 MAGNESIUM -- 0.81 0.90 PHOS -- 4.4 4.5 ABG (Arterial Blood Gas) Lab Results Component Value Date pH, Arterial 7.30 (L) 02/16/2024 PO2, Arterial 220 (H) 02/16/2024 PCO2, Arterial 40 02/16/2024 RAD: Reviewed. IS PATIENT CRITICALLY ILL ? 1. Is there a high potential of sudden, clinically significant, or life threatening deterioration? Yes 2. Is there a need for direct personal assessment and management to treat/prevent multiple vital organ failure/deterioration? Yes PATIENT IS CRITICALLY ILL WITH THESE DIAGNOSES BEING MANAGED BY CCS TEAM: Hypotension Arterial ASSESSMENT, MANAGEMENT, and DECISION MAKIN y.o. female s/p thoraco-bifemoral bypass. Clinically stable. PLAN: 1. NEURO: cont epidural for pain control. APS following. 2. PULM: CT to -[id number]. Pulm toilet. Titrate supplemental O2 as needed. 3. CARDIAC: HD stable. Appears well resuscitated. Cont fluid resuscitation as needed. 4. FEN/GI: NPO for now. Diet per vascular surgery. 5. RENAL: monitor as endpoint of resuscitation. 6. ENDO: SSI 7. HEME: transfuse as necessary. 8. ID: stable. 9. PROPHYLAXIS: SCD, Heparin, Pepcid TIME spent on the unit excluding procedures (between the hours of 0800 and 1700). (25) min of direct patient care, including examination (6) min reviewing laboratory/radiographic data (5) min preparing documentation (0) min coordinating care with other providers or family (36) min total critical care time JONY PEREZ MD * Carly Thompson, PT - 02/17/2024 8:16 AM EST Physical Therapy Evaluation Total duration of encounter: 1 day Patient profile: Jt Grayson is a 63 y.o. 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 S/p 7th rib removal L side PT consult Able to get OOB now post op Patient with the following active problems: Past Medical History: Diagnosis Date Back pain 10/27/2011 Right leg pain 10/27/2011 Past Surgical History: Procedure Laterality Date CT GUIDED BIOPSY BONE(EXTREMITIES/PELVIS) 10/15/2023 CT Guided Biopsy Bone (Extremities/Pelvis) 10/15/2023 Charissa Alcala MD [facility] RAD CT SCAN PRO DIAGNOSTIC BONE MARROW BIOPSIES & ASPIRATIONS N/A 12/15/2023 ([facility]) BONE MARROW BIOPSY AND ASPIRATION; DIAGNOSTIC (WRVU 1.44) performed by Bismark Degroot MD at [facility] Social History: Lives in [place], with and dog. works 6-2. 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 3 steps w/ railings to enter 1 floor home. No DME at home. Precautions/Special Considerations: MAP goal > 65 SBP goal <160 Isolation/Infection: No active isolations No active infections Lines/Tubes: Patient Lines/Drains/Airways Status Active Tubes/Lines/Drains Name Placement date Placement time Site Days PIV 02/16/24 0616 22 gauge metacarpal vein (top of hand), right 02/16/24 0616 -- 1 PIV 02/16/24 0827 16 gauge cephalic vein (lateral side of arm), left 02/16/24 0827 -- 1 PIV 02/16/24 0835 18 gauge basilic vein (medial side of arm), right 02/16/24 0835 -- 1 Chest Tube 02/16/24 1546 Chest Tube Left lateral 02/16/24 1546 -- 1 Urethral Catheter 02/16/24 0815 hydrophilic coated;latex 14 5 10 02/16/24 0815 -- 1 Epidural Catheter 02/16/24 0740 thoracic 02/16/24 0740 -- 1 Arterial Line 02/16/24 0827 radial artery, right 20 gauge 02/16/24 0827 -- 1 Activity Orders: Activity Orders (From admission to next 72h) Start Ordered 02/17/24 0730 Activity order ONE TIME Comments: OK for OOB to chair 02/17/24 0730 02/16/24 1740 Head of Bed 30 degrees or less UNTIL DISCONTINUED Question: Head of bed Answer: 30 degrees or less 02/16/24 1739 02/16/24 1735 Bedrest UNTIL DISCONTINUED 02/16/24 1739 Diet: Active Orders Diet Regular diet Frequency: Effective Now Number of Occurrences: Until Specified Mobility and Positioning Recommendations: Pt. to utilize FWW vs 1 assist for transfers with nursing. Please encourage up to chair for meal times as able. EPM Level 4: Pivot to chair/commode, Participate in self care Subjective: ???I'm feeling nauseous?? Objective: Pt seen for initial evaluation today. Pain: Number Location At rest 5/10 L sided back With activity Not too bad L sided back Vital Signs: At Rest With Activity SpO2 (5LNC-6LNC --> NRB) 89% 87% BP (MAP) 100/50s (70s)mmHg 90s/50s (60s)mmHg HR 94bpm 90bpm Temp: [34.6 ??C (94.3 ??F)-37.1 ??C (98.8 ??F)] Heart Rate: [81-104] Resp: [14-30] BP: (110)/(51) Behavior / Mood: alert and cooperative Oriented to: person, place, date, month, and year Follows commands: multi step Attention: WFL Safety awareness: WFL RASS: 0 CAM: N/A Vision: WFL Musculoskeletal: ROM: WFL Sensation: intact Tone: normal Strength: WFL Bed Mobility: Supine to Sit: to R side EOB, supervised, HOB elevated Sit to Supine: N/A - left OOB to chair after PT Transfers: Sit to Stand: CGA from EOB with FWW Stand to Sit: CGA Bed to Chair: stand step with FWW, x1 CGA/min A Other: mod A x2 to scoot posteriorly in chair Gait: N/A Stairs: N/A Balance: Sitting Static: good Sitting Dynamic: fair/good - supervised at EOB Standing Static: fair with FWW, CGA Standing Dynamic / Gait: fair with FWW, CGA Self Care: N/A Education: patient educated on role of therapy, pacing, PLB, bed mobility, transfers, plan of care, with fair/good understanding/demonstration. Patient status, treatment, and mobility recommendations discussed with nursing. Assessment: Jt Grayson was seen today for physical therapy evaluation. Pt presented with impairments of balance, activity tolerance, functional endurance, hemodynamic instability, aerobic capacity, and pain, which are currently contributing to functional limitations. Pt very pleasant and motivated to participate in therapy. Pt strong and mobile, with ability to transfer OOB to chair with onlyCGA/min A. Pt fatigued and nauseous during activity, with one episode of emesis. Did desaturate with low spO2 at rest and with activity- transitioned to NRB mask during mobility. Pt also hypotensive but relatively asymptomatic. Unable to progress further at this time due to unstable VS. Anticipate will progress well with no further PT needs after hospital DC. Pt will benefit from skilled therapy services throughout hospitalization to promote safety, independence, and provide developmental support/caregiver education. Discharge Recommendations: Based on the current findings, Anticipated Discharge Disposition (PT): home with supervision, home with home health when medically ready for hospital discharge. Discharge recommendation is based on the patient's current physical impairments, prior functional status, potential to return to prior level of function, patient motivation, reported home support, potential for functional gains, current level of endurance, reported home environment and anticipated trajectory of progress and may change based on patient progress during this hospitalization. Consult Recommendations: No other consults recommended at this time. Equipment Needs: Anticipated Equipment Needs at Discharge (PT): None Inpatient/Acute Care PT Plan: Therapy Frequency (PT): 2-4 times/wk for therapy including balance training, bed mobility training, gait training, home exercise program, patient/family education, stairtraining, and transfer training. X Consult service will continue to follow patient. PT signing off. Recommendations above, page if further consultation required. Goals: To be achieved by 02/29/24: Pt. to demonstrate knowledge of safety limitations and precautions Pt. to demonstrate understanding of appropriate exercises. Pt. to perform supine to/from sitting EOB with modified independence Pt. to perform sit to/from stand transfers with supervision and no vs LRAD Pt. to ambulate 150 feet with supervision and no vs least restrictive assistive device Pt. to ambulate up/down 3 step/stairs using single railing with supervision Pt to tolerate upright positioning with VSS 2016 PT Evaluation Code Rationale: Diagnosis & Pertinent Co-Morbidities, personal factors, and present illness affecting Plan of Care: (see above); Additional personal factors or co- morbidities that impact plan: Total # of Factors: 0 1-2 3+ x Examination of body system impairments, functional limitations and behaviors, and/or participation restrictions. Addressing 1-2 elements Addressing 3 + elements Addressing 4 + elements x Clinical presentation: See assessment above. (spO2, desat, low BP) Stable/Uncomplicated Evolving/Fluctuating Symptoms Unstable/Unpredictable x Clinical decision making of high complexity based on pt's functional performance as outlined in this evaluation. Time IN / OUT: 1701-0976 Total Minutes, Physical Therapy: 35 Billing Code: x1 high eval Thank you for this consult. Carly Thompson, PT, DPT, GCS Pager: [phone] Physical Therapy Inpatient Rehabilitation Department * Murtaza Ang MD - 02/17/2024 8:01 AM EST Acute Pain Medicine Service - Epidural Daily Management VITAL SIGNS: Visit Vitals BP 110/51 (BP Location (NBP): Arterial, Patient Position: Lying) Pulse 94 Temp 36.6 ??C (97.8 ??F) (Oral) Resp 25 Ht 160 cm (5' 3) Wt 59.7 kg (131 lb 9.8 oz) SpO2 93% BMI 23.31 kg/m?? Body mass index is 23.31 kg/m??. Labs: White Blood Cell Date Value Ref Range Status 02/17/2024 10.78 (H) 4.00 - 9.50 x10(3)/mcL Final Hemoglobin Date Value Ref Range Status 02/17/2024 10.7 (L) 11.7 - 15.5 g/dL Final Hematocrit Date Value Ref Range Status 02/17/2024 31.8 (L) 35.7 - 45.8 % Final Platelet Date Value Ref Range Status 02/17/2024 189 145 - 357 x10(3)/mcL Final 10/15/2023 313 145 - 357 x10(3)/mcL Final Prothrombin Time Date Value Ref Range Status 02/17/2024 12.2 9.4 - 12.5 sec Final 10/15/2023 11.7 9.4 - 12.5 sec Final Partial Thromboplastin Time Date Value Ref Range Status 02/17/2024 27 25 - 37 sec Final Comment: The PTT is NOT appropriate for heparin monitoring. Use the Anti-Xa level for heparin monitoring (HEP UFH) or LMWH monitoring (HEP LMW). A PTT less than 37 seconds generally indicates adequate hemostasis. 10/15/2023 32 25 - 37 sec Final Comment: The PTT is NOT appropriate for heparin monitoring. Use the Anti-Xa level for heparin monitoring (HEP UFH) or LMWH monitoring (HEP LMW). A PTT less than 37 seconds generally indicates adequate hemostasis. Operative Procedures: Procedure(s) with comments: @BYPASS GRAFT, AORTOBIFEMORAL W\ SYNTHETIC CONDUIT (WRVU 32.98) - thoraco bifem APS Opioid Administration Hx All administrations since 02/16/2024 are shown below each listed medication. Other Order Route Rate Dose Action Date HYDROmorphone (pf) (10 mcg/mL), BUPivacaine (pf) 0.1% in sodium chloride 0.9% 250 mL epidural Epidural 2 mL Bolus 02/16/2024 Epidural 6 mL Bolus 02/16/2024 Epidural 6 mL/hr 6 mL/hr New Bag 02/16/2024 HYDROmorphone (Dilaudid) (2 mg/mL) multi-dose injection solution Intravenous 0.5 mg Given 02/16/2024 Intravenous 0.5 mg Given 02/16/2024 Intravenous 0.5 mg Given 02/16/2024 Intravenous 0.5 mg Given 02/16/2024 HYDROmorphone (PF) (Dilaudid) injection 0.2 mg Epidural 0.2 mg Given 02/16/2024 fentaNYL (PF) (50 mcg/mL) injection 50 mcg Intravenous 50 mcg Given 02/16/2024 Intravenous 50 mcg Given 02/16/2024 APMS EPIDURAL ROUNDIN02/17/2024 8:01 AM Average Numeric Rating Pain Score (0-10): 1 Post-Op Day: 1 Epidural Day: 2 Epidural Infusion (solution): HYDROmorphone 10 mcg/mL and BUpivacaine 0.1% Epidural Infusion Rate: 6 mL per hour PCEA Dose: 3 mL every 20 minutes PRN Out of Bed: No Ambulation: No Able to Use Incentive Spirometry: Yes Escalation of Care: No Tolerating Regular Diet: Yes Ileus: No Jt is doing well this morning. She does endorse upper/lateral back/flank pain to the left side at surgical site. She denies pain at her epidural site, CHD dressing is clean dry and intact. Jt is able to point and flex bilateral feet and knees. Jt has been experiencing intermittent nausea, zofran administered with positive effect, but since historically she does endorse nausea with opioids and narcotics, we opted to change the epidural solution to preclude hydromorphone and change the bupivicaine dose to 0.125%. The plan is to continue current therapy until Jt's diet is advanced and has ROBF. IYakelin RN, have performed the documentation for this encounter in the presence of and acting as a scribe for Dr. Murtaza Ang. APMS Nurse: Yakelin Triana RN Resident:: Jony Joaquin MD Fellow:: Kaden Marie DO Attending Physician:: Murtaza Ang MD I performed the above scribed service and agree with the accuracy of the note. MURTAZA ANG MD documented in this encounter H&P Notes * Marta Zhang MD - 02/16/2024 3:32 PM EST Critical Care - Admission Note History of Present Illness: Jt Grayson is a 63 y.o. 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 The operation was uneventful the left 7th rib was removed and the graft was placed with no cross clamping (segmental cross clamping instead). Chest tube placed with present air leak. The patient had 700 ml of EBL, was given 475 back via cell saver, 3500 ml of crystalloid, 500 of albumin, and made 525 ml of urine. She reversed with protamine sulfate after the operation with some resulting need forNorepi that was weaned to 2 on arrival to the SICU. 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 Her triggers have been listed as ibuprofen, sun exposure, alcohol. Per notes, she deniesever having anaphylaxis or angioedema but instead has diarrhea bouts and there was also a confounding diagnosis of possible colitis. Patient was diagnosed with SSM somewhat incidentally via CT imaging showing diffuse sclerotic mottling of her bones and then confirmed with follow up bone marrow biopsy. Her home regimen is famotidine 20mg bid, Zyrtec 10mg qd, Montelukast 5mg qhs, benadryl & epi-pen prn. 02/03-02/04 admission from discharge summary: - admitted to Vascular Surgery from 02/03-02/04 over which time she underwent EKG, TTE, ABIs, LLE DVT duplex, and CTA C/A/P which showed a now intervally occluded left aortobifemoral bypass limb. She was also evaluated by Hematology for a hypercoagulability work-up given thrombosis of her ABF limbs in the setting of systemic mastocytosis, but further work-up was recommended against by hematology. She was cleared for both DOAC and ASA use. 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 02/08-02/10 hospital admission from discharge summary: -Admitted to hospital for pain management, surgical planning. Patient started on therapeutic heparin infusion on 02/09/24 with improvement in pain, motor functionand sensation of her LLE. She tolerated heparin infusion well and pain well tolerated with PO pain medication regimen. Due to OR timing, she will discharge to home on therapeutic lovenox bridge until her procedure timeon Thursday02/16/24. She was consented for a thoraco-femoral bypass, likely L access and dischargedwith appropriate pain medication with bowel medicine. Was able to get out of bed and ambulate with nursing/rehab services. MR for discharge on 02/11/24 as she has been HDS with baseline and adequate pain control, VS, UOP, PO intake, mobility and ambulation status without fever or s/s infection. She will return to hospitalon 02/16/24 at 0600 for planned and consented thoraco-femoral bypass. She was started on Lovenox 1mg/kg today and told to discontinue this on 02/15/24 after her PM dose. She was cleared by Cardiology and Pulmonology for thoracobifemoral bypass planned for 02/15. She was started on Eliquis that admission and cannot be on aspirin due to systemic mastocytosis. Patient underwent EKG, notable for SR with PVC, RBB, otherwise stable; unremarkable. See report below. TTE performed with adequate EF 60%, no valvular/wall motion abnormalities, see report below. ABIs, with L>R moderately severe LE occlusive disease, absent toe wave forms; report below. LLE duplex negative for DVT. CTA chest and LE w/ runoff reports below; notable for aortic occlusion inferiorto CURTIS, R bypass limb, intervally occluded L bypass limb. Review of Systems: Unable to obtain d/t patient being sedated after surgery Past Medical Surgery: Past Medical History: Diagnosis Date Back pain 10/27/2011 Right leg pain 10/27/2011 Past Surgical History: Past Surgical History: Procedure Laterality Date CT GUIDED BIOPSY BONE(EXTREMITIES/PELVIS) 10/15/2023 CT Guided Biopsy Bone (Extremities/Pelvis) 10/15/2023 Charissa Alcala MD [facility] RAD CT SCAN PRO DIAGNOSTIC BONE MARROW BIOPSIES & ASPIRATIONS N/A 12/15/2023 ([facility] BONE MARROW BIOPSY AND ASPIRATION; DIAGNOSTIC (WRVU 1.44) performed by Bismark Degroot MD at [facility] Prior To Admission Medications: Medications Prior to Admission Medication Sig Dispense Refill Last Dose methocarbamoL (Robaxin) 750 mg tablet Take 1 tablet by mouth 3 times daily. 30 tablet 0 02/15/2024 polyethylene glycoL (Miralax) 17 gram oral powder packet Take 17 g by mouth daily. 14 each 0 Past Month senna-docusate (Pericolace) 8.6-50 mg Tablet Take 2 tablets by mouth 2 times daily. 60 tablet 11 Past Month enoxaparin (Lovenox) 60 mg/0.6 mL Syringe Inject 0.6 mLs subcutaneously 2 times daily. 15 mL 0 02/15/2024 acetaminophen (Tylenol) 500 mg tablet Take 1,000 mg by mouth every 6 hours as needed for Pain (generally takes 1000mg daily in am.). 02/15/2024 cetirizine (ZyrTEC) 10 mg tablet Take 1 tablet by mouth daily. Indications: Systemic Mastocytosis 30 tablet 3 02/14/2024 famotidine (Pepcid) 20 mg tablet Take 1 tablet by mouth 2 times daily. Indications: Systemic Mastocytosis 30 tablet 3 02/15/2024 montelukast (Singulair) 5 mg chewable tablet Take 1 tablet by mouth nightly. 30 tablet 3 02/14/2024 EPINEPHrine 0.3 mg/0.3 mL Auto-Injector Inject 0.3 mL IM once as needed for allergic reaction (Throat tight, difficulty breathing). Call 911 as directed. 1 kit 11 More than a month Current Medications: sodium chloride 0.9 % (flush) (BD PosiFlush Normal Saline 0.9) flush 5-20 mL lidocaine (Xylocaine) 1% (10 mg/mL) injection 3 mg lactated ringers infusion sodium chloride 0.9 % (flush) (BD PosiFlush Normal Saline 0.9) flush 5 mL sodium chloride 0.9 % (flush) (BD PosiFlush Normal Saline 0.9) flush 5-20 mL lidocaine (Xylocaine) 1% (10 mg/mL) injection 3 mg naloxone (Narcan) (0.4 mg/mL) injection 0.2 mg HYDROmorphone (pf) (10 mcg/mL), BUPivacaine (pf) 0.1% in sodium chloride 0.9% 250 mL epidural AND Neuraxial shift total and Settings verification AND Neuraxial (Epidural) rockwell nalbuphine (Nubain) (10 mg/mL) injection 2 mg sodium chloride 0.9 % (flush) (BD PosiFlush Normal Saline 0.9) flush 5 mL sodium chloride 0.9 % (flush) (BD PosiFlush Normal Saline 0.9) flush 5-20 mL lidocaine (Xylocaine) 1% (10 mg/mL) injection 3 mg propofoL (Diprivan) (10 mg/mL) infusion metoprolol (LOPRESSOR) injection lidocaine (pf) (Xylocaine) (20 mg/mL) 2% injection syringe propofoL (Diprivan) 10 mg/mL bolus injection (Anesthesia) dexmedeTOMIDine (Precedex) (4 mcg/mL) bolus injection (Anesthsia) HYDROmorphone (Dilaudid) (2 mg/mL) multi-dose injection solution dexAMETHasone (Decadron) injection rocuronium (Zemuron) (10 mg/mL) multi-dose injection haloperidoL lactate (Haldol) (5 mg/mL) injection famotidine (Pepcid) (10 mg/mL) injection esmoloL (Brevibloc) (10 mg/mL) injection NORepinephrine (Levophed) injection ceFAZolin (Ancef) (100 mg/mL) injection solution NORepinephrine (Levophed) (16 mcg/mL) in dextrose 5% 250 mL infusion albumin (human) 5% 250 mL intravenous solution heparin (porcine) (1,000 units/mL) injection niCARdipine (Cardene) injection calcium chloride 10% (100 mg/mL) injection diphenhydrAMINE (Benadryl) (50 mg/mL) injection protamine (10 mg/mL) injection vasopressin (Vasostrict) injection Allergies: Allergies Allergen Reactions Percocet [Oxycodone-Acetaminophen] Nausea And Vomiting Ciprofloxacin Other (See Comments) Burning with IV administration, needed benadryl Ibuprofen Hives Morphine Sulfate Nausea And Vomiting Nsaids (Non-Steroidal Anti-Inflammatory Drug) Hives Family History: History reviewed. No pertinent family history. Social History and Habits: Social History Socioeconomic History Marital status: Spouse name: Not on file Number of children: Not on file Years of education: Not on file Highest education level: Not on file Occupational History Not on file Tobacco Use Smoking status: Former Current packs/day: 0.00 Average packs/day: 1 pack/day for 30.0 years (30.0 ttl pk-yrs) Types: Cigarettes Quit date: 2012 Years since quittin.8 Smokeless tobacco: Never Tobacco comments: 3 PK A DAY Substance and Sexual Activity Alcohol use: No Drug use: No Sexual activity: Not on file Other Topics Concern Not on file Social History Narrative Not on file Social Determinants of Health Financial Resource Strain: Not on file Food Insecurity: No Food Insecurity (02/11/2024) Hunger Vital Sign Worried About Running Out of Food in the Last Year: Never true Ran Out of Food in the Last Year: Never true Transportation Needs: No Transportation Needs (02/11/2024) PRAPARE - Transportation Lack of Transportation (Medical): No Lack of Transportation (Non-Medical): No Physical Activity: Not on file Intimate Partner Violence: Not At Risk (02/16/2024) IPV Inpatient Questions Prevent Contact with Others: no Feels Threatened by Someone: no Feels Unsafe at Home: no Physical Signs of Abuse Present: no Housing Stability: Low Risk (02/11/2024) Housing Stability Vital Sign Unable to Pay for Housing in the Last Year: No Number of Times Moved in the Last Year: 0 Homeless in the Last Year: No Physical Exam: Last Set of Vitals and range of vitals over past 24 hours: Last value Range last 24 hrs Temperature Temp: 36.4 ??C (97.5 ??F) Temp: [36.4 ??C (97.5 ??F)] Heart Rate Heart Rate: 75 Heart Rate: [75] Blood Pressure BP: 123/63 BP: (123)/(63) Respiratory Rate Resp: 16 Resp: [16] SpO2 SpO2: 97 % SpO2: [97 %] Gen: On face mask, oral airway in place, laying flat, comfortably asleep HEENT: Sclera non-icteric, PERRL, CV: RRR, no m/r/g RESP: CTAB, no wheezing, ventilator BS bilaterally ABD: Soft, normoactive bowel sounds EXT: WWP, palpable pulses bilaterally Neuro: Grossly intact Laboratory (Last 24 Hours): Last wbc, hgb, hct plt No results for input(s): WBC, HGB, HCT in the last 72 hours. Invalid input(s): PLATELETT Last 3 wbc, hgb, hct plt Recent Labs 02/11/24 0432 02/10/24 0151 02/09/24 1235 WBC 7.31 8.38 8.17 HGB 13.4 13.4 14.2 HCT 40.5 40.8 42.4 PLATELET 266 259 283 Last 3 Lytes Recent Labs 02/11/24 0432 02/10/24 0151 02/09/24 1235 NA 140 138 140 K 4.0 3.9 3.7 CL 106 104 105 CO2 BUN 13 9 6* CREATININE 0.78 0.94 0.70 Last 3 LFTs Recent Labs 02/04/24 1439 01/28/24 0919 11/25/23 0719 AST 13 16 16 ALT 18 15 14 ALKPHOS 94 99 104 BILITOT 0.3 0.2 <0.2 BILIDIR <0.2 -- -- Last Ca, Mg, Phos Recent Labs 02/11/24 0432 CALCIUM 9.1 PHOS 4.3 MAGNESIUM 0.90 Last 3 Coags No results for input(s): PT, INR, PTT in the last 168 hours. Last 3 ProBNP, Trop, CK No results for input(s): CK, TROPONINT, PROBNP in the last 168 hours. Last 3 TFT No results for input(s): TSH in the last 7068 hours. Invalid input(s): T4, FT4 Last 3 Lipids No results for input(s): CHLPL, HDL, LDLCHOL, LDLDIRECT, TRIG in the last 7068 hours. Last 3 HgbA1C No results for input(s): HA1C in the last 7068 hours. Last CRP, SEDRATENo results for input(s): CRP, SEDRATE in the last 7068 hours. Last 3 CBC Recent Labs 02/11/24 0432 02/10/24 0151 02/09/24 1235 WBC 7.31 8.38 8.17 Recent Results (from the past 24 hour(s)) Type and screen ([facility] [place]) Result Value Ref Range ABORH Type B NEGATIVE PATIENT HISTORY Found Expires at 5005 on: 02/19/2024 ANTIBODY SCREEN AUTOMATED Negative T&S only valid at [facility] LAB ABORH RECHECK (PATIENT HISTORY FOUND) Result Value Ref Range ABORH Recheck Progress Complete Blood Gas, Arterial POC Result Value Ref Range pH, Arterial 7.38 7.35 - 7.45 PCO2, Arterial 39 35 - 45 mmHg PO2, Arterial 225 (H) 85 - 104 mmHg Bicarbonate, Arterial 22.7 20.0 - 26.0 mmol/L Base Excess, Arterial -2.5 -3.0 - 3.0 mmol/L Hemoglobin, Arterial 13.4 11.7 - 15.5 g/dL Oxyhemoglobin, Arterial 96.6 94.0 - 97.0 % Carboxyhemoglobin, Arterial 2.6 % Methemoglobin, Arterial 0.1 <=1.5 % Sodium, Arterial 138 135 - 145 mmol/L Potassium, Arterial 3.8 3.5 - 5.0 mmol/L Chloride, Arterial 107 98 - 107 mmol/L Lactate, Arterial 1.1 0.5 - 2.2 mmol/L IONIZED CALCIUM, ARTERIAL 1.16 1.15 - 1.33 mmol/L Glucose, Arterial 108 65 - 199 mg/dL Blood Gas, Arterial POC Result Value Ref Range pH, Arterial 7.36 7.35 - 7.45 PCO2, Arterial 41 35 - 45 mmHg PO2, Arterial 78 (L) 85 - 104 mmHg Bicarbonate, Arterial 22.5 20.0 - 26.0 mmol/L Base Excess, Arterial -2.9 -3.0 - 3.0 mmol/L Hemoglobin, Arterial 12.9 11.7 - 15.5 g/dL Oxyhemoglobin, Arterial 93.2 (L) 94.0 - 97.0 % Carboxyhemoglobin, Arterial 1.9 % Methemoglobin, Arterial 0.2 <=1.5 % Sodium, Arterial 139 135 - 145 mmol/L Potassium, Arterial 3.8 3.5 - 5.0 mmol/L Chloride, Arterial 108 (H) 98 - 107 mmol/L Lactate, Arterial 0.9 0.5 - 2.2 mmol/L IONIZED CALCIUM, ARTERIAL 1.14 (L) 1.15 - 1.33 mmol/L Glucose, Arterial 140 65 - 199 mg/dL Blood Gas, Arterial POC Result Value Ref Range pH, Arterial 7.31 (L) 7.35 - 7.45 PCO2, Arterial 41 35 - 45 mmHg PO2, Arterial 167 (H) 85 - 104 mmHg Bicarbonate, Arterial 20.2 20.0 - 26.0 mmol/L Base Excess, Arterial -6.1 (L) -3.0 - 3.0 mmol/L Hemoglobin, Arterial 11.8 11.7 - 15.5 g/dL Oxyhemoglobin, Arterial 97.5 (H) 94.0 - 97.0 % Carboxyhemoglobin, Arterial 1.4 % Methemoglobin, Arterial 0.1 <=1.5 % Sodium, Arterial 139 135 - 145 mmol/L Potassium, Arterial 3.4 (L) 3.5 - 5.0 mmol/L Chloride, Arterial 109 (H) 98 - 107 mmol/L Lactate, Arterial 0.9 0.5 - 2.2 mmol/L IONIZED CALCIUM, ARTERIAL 1.11 (L) 1.15 - 1.33 mmol/L Glucose, Arterial 146 65 - 199 mg/dL Radiology: EKG, notable for SR with PVC, RBB, otherwise stable; unremarkable. ABIs, with L>R moderately severe LE occlusive disease, absent toe wave forms Echo: Left ventricular systolic function is normal. Left ventricular ejection fraction is estimated visually at 55-60%. There are no segmental wall motion abnormalities. Right ventricular size and systolic function are nrml. No significant valvular disease. Bedside spirometry 02/05/2024: FVC 1.93 L, 65% FEV1 1.52 L, 66% Ratio 79% wnl Restrictive physiology vs air trapping CTA Chest 02/03: Mild dependent atelectasis and small subpleural blebs at the apices. CTA chest and LE w/ runoff notable for aortic occlusion inferior to CURTIS, R bypass limb, intervally occluded L bypass limb. Microbiology: None Assessment/Plan: Jt Grayson is a 63 y.o. female former smoker w/ PMH of systemic mastocytosis (on famotidine, zyrtec, singulair), thoracic outlet syndrome s/p scalenectomy and first rib resection and s/p aortobifemoral bypass c/b bi-limb occlusion now s/p thoracobifemoral bypass and transferred to the SICU for postoperative care including neurovascular checks. Neuro: - pain control: scheduled tylenol, dilaudid po prn. - Thoracic T7 epidural managed by APS with good pain control - Bed rest CV: #aorto occlusive disease Ss/p thoracobifemoral bypass - q2h neurovascular checks - MAP goal > 65 - q6h labs overnight CBC BMP Coag Fibrinogen Pulm: # L Pneumothorax anticipated with surgical appraoch - Left chest tube with atrium to suction, +air leak FEN/GI: - Pericolace - NPO give meds with plan to ADAT tomorrow pending vascular recs. - LR @ 200 ml/hr overnight. - nightly mag and phos : therese, monitor UOP Endo: ISS ID: Ancef for 24h MSK: [id number] Heme: #systemic mastocytosis - Continue home famotidine, singular. Home Zyrtec replaced with Loratadine due to hospital formulary stock. -If patient has a mast cell release flare / anaphylaxis: Epi 100mcg IV to be given with ICU fellow and attending called to be made aware. If sx mild, consider benadryl 25mg IV. - Holding anticoagulation post op per vascular recommendation will likely resume SQH and ASA 02/16 . (Heme cleared ASA and DOAC use in mastocytosis). PPx: - DVT: SCD's - GI: home famotidine -HOB>30 L/T/D: Patient Lines/Drains/Airways Status Active Tubes/Lines/Drains Name Placement date Placement time Site Days PIV 02/16/24 0616 22 gauge metacarpal vein (top of hand), right 02/16/24 0616 -- less than 1 PIV 02/16/24 0827 16 gauge cephalic vein (lateral side of arm), left 02/16/24 0827 -- less than 1 PIV 02/16/24 0835 18 gauge basilic vein (medial side of arm), right 02/16/24 0835 -- less than 1 Urethral Catheter 02/16/24 0815 hydrophilic coated;latex 14 5 10 02/16/24 0815 -- less than 1 ETT Airway 02/16/24 0820 02/16/24 0820 -- less than 1 Epidural Catheter 02/16/24 0740 thoracic 02/16/24 0740 -- less than 1 Arterial Line 02/16/24 0827 radial artery, right 20 gauge 02/16/24 0827 -- less than 1 Disp: admit to ICU, Critical Care Red 1 Nii Graham MD 02/16/2024 Attending Addendum: I have seen the patient, reviewed the resident's above history and edited the note as needed and I agree with the details as written. The assessment and plan were formulated in discussion with me Juarez agree with them as documented. 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 Segmental clamp with maintained perfusion to abdominal aorta.Patient transferred to the SICU for close monitoring ,ongoing resuscitation and neurovascular checks. Patient is hemodynamically stable, extubated, off pressors and her pain is well controlled with her thoracic epidural. We will monitor labs q6h and ABG q1h for first few hours. Her current labs areall within normal range and a post op lactate of 1.4. Her starting Hgb 14 ->10.5 intra-op and stable on repeat labs. Regarding her systemic mastocytosis, patient received H1&2 blockers as well as steroids intra-op. We will reinitiate her home regimen: famotidine, loratadine, montelukast. If patient experiences mild sx suggestive of a flare: rash, flushing, GI cramping we will give benadryl 25mg IV. Of note, although this patient has not had prior episodes of anaphylaxis and angioedema, up to 50% can experience such episodes. Epi IM 0.3-0.5mg or Epi 100mcg IV available for anaphylaxis. We will avoid her known triggers as well as cold/hot, stress, pain and NSAIDS. Rest of care as noted above. Gen: comfortably resting, in NAD Neuro: Neurologically intact, motor strength 5/5 CV: RRR, no mrg Pulm: CTAB Abd: Soft, NTTP, ND, surgical incision with trace blood tinge, L sided graft palpable. Ext: Warm, well perfused. Palpable pulses in all extremities IS PATIENT CRITICALLY ILL ? Is there a high potential of sudden, clinically significant, or life threatening deterioration? Yes Is there a need for direct personal assessment and management to treat/prevent multiple vital organfailure/deterioration? Yes If this patient is not critically ill, the reason for continued hospitalization is n/a. PATIENT IS CRITICALLY ILL WITH THESE DIAGNOSES BEING MANAGED BY [facility] TEAM: Other S/p thoracoabdominal bifem bypass, q1h neurovasc checks, postop hypotension TIME spent on the unit excluding procedures: 40 minutes Marta Zhang MD [facility] Electro Optics Engineer documented in this encounter Procedure Notes * Jaki Hampton, DO - 02/18/2024 7:43 PM EST Images from the original note were not included. Central Line Placement Procedure Note Items highlighted in red are State Reported items for central line compliance documentation. Procedure Diagnosis: hypotension Risks and Benefits reviewed: yes. Informed Consent obtained: yes Reason for insertion: new central line Time out performed and documented: yes Hand Hygiene performed: Yes Skin prepped with: chlorhexidine Skin prep agent completely dry at time of first puncture: yes Sterile drape: large sterile drape used Mask/eye shield: mask/eye shield used Large sterile gown: large sterile gown used Sterile gloves: sterile gloves used Cap worn: cap worn Ultrasound guidance used for insertion: Yes Kit type used: An 18 Ga. X 2.5 inch needle was placed in vein after blood return identified. Guidedby a 0.032 inch diameter guide wire, a 7 Fr., 3 lumen Catheter 20 cm in length antibiotic impregnated catheter was inserted using the Seldinger Technique. Catheter type: CVL Tunneled/Non Tunneled: non tunneled Insertion Site: jugular (internal) Insertion Side: left Number of attempts: 1 Insertion successful: Yes Catheter sutured at the skin at: 20 cm . Sterile dressing: Chlorhexidine Tegaderm Findings: Patient tolerated procedure well. Complications: No Complications. Chest X-ray ordered: yes Patient location at time of insertion: ICU 4 [facility] Procedure Comments: Jaki Hampton DO Associated attestation - Harley Mcclure MD - 02/18/2024 9:05 PM EST I was the attending physician supervising the resident in the above care and I was present with theresident for the entire procedure. * Dorothy Blackman MD - 02/18/2024 4:32 AM EST Intubation Procedure Note Has the Patient Been Designated a DIFFICULT AIRWAY: No Reason for Intubation: Hypoxemia Procedure Diagnosis: Hypoxic Respiratory Failure Location of Procedure: ICU 4 [facility] Airway Assessment: Dentition: edentulous Mouth Opening: Normal (>3 finger breadths) Cervical Spine Precautions: No Neck Extension: Full High Risk for Aspiration: No Preoxygenation Administered: NIPPV (CPAP or BIPAP) Apneic Oxygenation: not administered Mask Ventilation Attempted: No Intubation Attempts: 1 Confirmation of Tube Placement: Chest X-ray ordered end tidal CO2 bilateral breath sounds Tube Secured At: 21 cm at the gums Sedatives / Paralytics 18 mg Etomidate 60 mcg rocuronium Other Nil Procedure Comments: The patient was hemodynamically stable. The procedure was uncomplicated and atraumatic. --- Risks and Benefits: The risks and benefits of this procedure were reviewed and informed consent was obtained obtained. Time Out: Prior to the start of the procedure, the patient's identity, intended procedure, site/side, correct patient positioning and presence of the site bernardino was confirmed as applicable. The medical history and chart were reviewed to rule out potential contraindications to the planned procedure. Dorothy Blackman MD 02/18/2024 Associated attestation - Harley Mcclure MD - 02/18/2024 8:13 AM EST I was the attending physician supervising the resident in the above care and I was present with theresident for the entire procedure. documented in this encounter Miscellaneous Notes * Care Management Discharge - Carie Bliss RN - 02/24/2024 11:25 AM EST CARE MANAGEMENT FINAL DISCHARGE NOTE Chart reviewed, care reviewed with primary team and at interdisciplinary rounds. Patient is medically ready for discharge to home with VNA. Needs for Transition of Care: Plan for discharge is: Home w/ Services Outpatient Agency/Support Group Needs: None Home Health Services: Occupational Therapy, Physical Therapy, Registered Nurse Agency Referrals & Follow-up Care: Contact information for follow-up Home Health & Hospice, [place] [id number] [place] [address] Transportation: family or friend will provide Functional status prior to admission: Independent Home Environment: Others in the home: pet(s), spouse (Patient lives with her and dog). Current Living Arrangements: home/apartment/condo. Accessibility Concerns:3 steps to enter with single level home. Current Functional Ability: Assistive Equipment DME used at home: none DME Needed at Discharge: Patient is insured through: Primary Insurance: MEDICARE Payor: MEDICARE / Plan: MEDICARE PART A ONLY / Product Type: *No Product type* / Secondary Insurance: [facility] Prescription Coverage: Yes This plan was formulated with input from patient and team. All are in agreement with plan. Carie VASQUEZ RN Phone: [phone] Pager: [phone] * Plan of Care - Elana Maldonado RN - 02/23/2024 11:00 PM EST Problem: Tissue Perfusion Altered (Revascularization) Goal: Effective Tissue Perfusion Outcome: Ongoing (Interventions Implemented as Appropriate) Note: OUTCOME EVALUATION NOTE: OUTCOME SUMMARY: Patient is A&O x4 and able to follow commands in all 4 extremities. Patient denies pain, but some discomfort near prior CT site, treated with PRN tylenol. Q4 neurovascular checks remain palpable.NSR-ST with a RBBB for the shift, MAP >60 without intervention. HR ranging from 70-100s, team aware of increasing tachycardia, EKG done, 500cc LR bolus given with good effect. Respiratory fowler placed on RA to 1-2L NC d/t desats in the high 80s, see vital flowsheet. Up to toilet with adequate UO for the shift. K+ replaced per protocol PLAN MOVING FORWARD: Q4 neurovascular checks Downgrade MAP >60 INDIVIDUALIZED FALL PREVENTION INTERVENTIONS: Patient-specific fall risk factors per assessment: [current deficits]: lines and drains, O2 requirements, discomfort, generalized weakness Assistance [level of assistance required for transfers and ambulation]: 1-2x assist with a walker for longer distances Supervision [direct monitoring required during toileting and ADLs]: 1x assist Surveillance [continuous indirect monitoring]: ICU monitoring- telemetry, pulseox, hourly rounding Patient-specific fall prevention interventions for sensory deficits provided, if applicable: CARE PLAN GOAL OUTCOME EVALUATION: * Plan of Care - Klaus Moreno RN - 02/23/2024 4:47 PM EST OUTCOME EVALUATION NOTE: Patient walked with mobility tech around unit and up to chair multiple times this shift. O2 weaned off at beginning of shift. Levo restarted 1 hour post med administration up to 6 due to MAP of 52. Zanaflex discontinued and patient was able to be weaned off Levo. Chest tube removed 1100 by MD and chest x-ray obtained at 1500, chest tube site leaking serous fluid, MD aware. PLAN MOVING FORWARD: Q4 Neurovascular checks Possibly downgrade tomorrow * Consult Note - Edmund Truong MD - 02/23/2024 12:00 PM EST HEMATOLOGY NOTE Research RN and this typewriter ribbon winder saw patient on 02/22. I've spoken with the vascular surgeon, Dr. Emily Raymond. He told me that at the time of the surgery, he found nearly occlusive severe atherosclerotic disease in the left femoral bifurcation due to known peripheral vascular disease. There was mention of thrombosis due to the atherosclerotic disease, but Dr. Raymond said that was not unexpected, and further stressed that she is not prothrombotic, which is the reason for exclusion criteria 8e which we believe she does not meet. He performed a successful aortobifemoral bypass with left femoral endarterectomy , and she now has great pulses in herfeet, jami the left leg now. He expects full recovery from this procedure in the coming days. At this time he does not intend to put her on anticoagulation, and she remains on ASA 81mg daily, and subcutaneous heparin due to her recovery in the hospital. We went to examine her on 02/23/2024 in the ICU, and she is well appearing, and has been ambulatingwith assistance, and sitting up in a chair for most of the day. She will be evaluated for dischargeto home in the next couple of days. She agreed to resume the diary for MS2D2 symptoms starting today, and missed the previous days due to being intubated. She reports diarrhea x 2.5 days after the vascular surgeon team recommended stool softeners and does not want any more stool softeners. We attribute the diarrhea to her underlying mastocytosis. This patient is making a remarkable recovery and according to her surgeon, he expects return to activities of daily living with a little more time. She is having minimal side effects from the surgical intervention, including pain which is only being managed with Tylenol. Regarding mastocytosis best supportive care meds during this time, we can keep her on stable supportive meds in the 2 weeks leading up cycle 1 day 1. We don't see this as an issue. Regarding exclusion criteria #9, the management of her PVD with surgery will in fact make it easier to assess all the study endpoints including PRO, MS2D2, etc, because she is no longer symptomatic from PVD. Lastly, the patient expresses desire to be considered for the clinical trial after what she has been through. She is seeking relief from her mastocytosis symptoms. We have communicated this with the sponsor and I've spoken to the vascular surgeon Dr. Raymond at the time of that visit. We also spoke with the clinical trial sponsor who will continue to review her for eligibility for :[id number]: ([facility]) A MULTI-PART, RANDOMIZED, DOUBLE-BLIND, PLACEBO-CONTROLLED PHASE 2 CLINICAL STUDY F/U is being arranged in my clinic. Edmund Truong MD asthma educator Section of Hematology/Oncology [facility] * Consult Note - Mikki Damon APRN - 02/23/2024 11:06 AM EST Images from the original note were not included. Vascular Surgery Progress Note Jt Grayson is a 63 y.o. female with a history of significant aortoiliac occlusive disease with lifestyle limiting claudication (s/p aortobifemoral bypass UV, 2012), neurogenic thoracic outlet syndrome (s/p first rib resection and scalenectomy UV), and systemic mastocytosis who was recently admitted to the vascular surgery service with worsening left foot pain. The patient has not had any changes to her motor or sensory function. The patient's right limb of her aortobifemoral bypass was incidentally found to be occluded on a CT in August 2023, however she has been asymptomatic from this. The patient is a former smoker and quit in 2012. She was started on a heparin drip while admitted however was discharged on a lovenox bridge. Prior vascular history See above Active Hospital Problems Diagnosis Critical limb ischemia of both lower extremities with bypass graft Resolved Hospital Problems No resolved problems to display. Active Non-Hospital Problems Diagnosis Critical limb ischemia of both lower extremities with autologous bypass graft Left leg pain Back pain Right leg pain Scheduled Medications: lidocaine 1 patch Transdermal Daily aspirin 81 mg Oral Daily senna-docusate 2 tablet Oral BID piperacillin-tazobactam 3.375 g Intravenous Q8H heparin (porcine) 5,000 Units Subcutaneous Q8H JENNIFER ipratropium-albuteroL 3 mL Nebulization Q4H JENNIFER sodium chloride 4 mL Nebulization Q8H sodium chloride 0.9 % (flush) 5 mL Intravenous BID famotidine 20 mg Oral BID montelukast 5 mg Oral Nightly loratadine 10 mg Oral Daily sodium chloride 0.9 % (flush) 5 mL Intravenous BID Operations This Hospitalization Bilateral aortobifemoral bypass, left femoral endarterectomy (02/15, Segundo/Belinda/Isabel) Interim: - RA 92-94% HDS, NAEO, BM 02/21 - CT with 140 mL 24 hours output - daily labs pending Objective: Temp: [36.8 ??C (98.2 ??F)-37.1 ??C (98.8 ??F)] Heart Rate: [75-100] Resp: [16-29] BP: (78-129)/(40-69) SpO2: [92 %-100 %] Heart Rate from SpO2: [75 bpm-99 bpm] BMI: Weight: 55.6 kg (122 lb 9.2 oz) (02/23/24 0600) BMI (Calculated): 23.04 BMI Classification: Normal Weight Intake/Output Summary (Last 24 hours) at 02/23/2024 1106 Last data filed at 02/23/2024 0932 Gross per 24 hour Intake 1078.43 ml Output 226 ml Net 852.43 ml PHYSICAL EXAM: GEN: Alert and appears stated age. Cooperative. In NAD. HEENT: Normocephalic and atraumatic. CV: Regular rate. Pulm: Breathing on room air. Abd: Soft, non-distended, non-tender to palpation. Skin: Color, texture, turgor normal. Neuro: Sensation and motor grossly intact. Able to wiggle toes, plantarflex, and dorsiflex L/R foot. Extremities: L and R groin incision sites with mepilex bandage c/d/I, no evidence of hematoma or active drainage. Vascular: 2+ DP pulses palpable on right and left Labs: Recent Labs 02/22/24 0020 02/21/24 0124 WBC 7.28 6.95 HGB 8.1* 8.2* HCT 24.6* 24.8* PLATELET 271 238 Recent Labs 02/23/24 0737 02/22/24 0020 02/21/24 0124 02/20/24 1840 NA -- 139 141 -- K 3.7 3.3* 3.5 3.7 CL -- 104 105 -- CO2 -- 26 26 -- BUN -- 6* 6* -- CREATININE -- 0.58* 0.57* -- PHOS -- 3.9 3.3 -- CALCIUM -- 8.2* 8.1* -- Microbiology: Microbiology Results (last 7 days) Procedure Component Value - Date/Time Blood culture [[id number]] Collected: 02/18/24950 Lab Status: Preliminary result Specimen: Blood, Venous Updated: 02/22/24 120 Blood Culture No growth at 96 hours Blood culture [[id number]] Collected: 02/18/24950 Lab Status: Preliminary result Specimen: Blood, Venous Updated: 02/22/24 120 Blood Culture No growth at 96 hours Respiratory Culture, Quantitative [[id number]] (Abnormal) (Susceptibility) Collected: 02/18/24 1446 Lab Status: Final result Specimen: Bronchial Alveolar Lavage from Lung, Left Lower Lobe Updated: 02/20/24936 Quantitative Bacterial Culture 4,000 CFU/mL Citrobacter freundii complex Gram Stain Cytocentrifuge Gram Stain performed Neutrophils seen No microorganisms seen Susceptibility Citrobacter freundii complex VITEK 2 METHOD Cefazolin (Systemic) Resistant Cefepime Susceptible Ceftriaxone Susceptible [1] Ciprofloxacin Susceptible Gentamicin Susceptible Levofloxacin Susceptible Piperacillin/Tazobactam Susceptible Trimethoprim/Sulfa Susceptible [1] This organism may develop resistance during therapy with 3rd generation cephalosporins (e.g. cefTRIaxone, cefTAZidime), particularly with prolonged durations, due to production of inducible AmpC beta-lactamase. MRSA PCR Screen [[id number]] (Normal) Collected: 02/18/24923 Lab Status: Final result Specimen: Swab from Nares Updated: 02/18/24 1710 MRSA PCR Not Detected Narrative: This test was performed using the Xpert MRSA NxG test kit and is run on the [employer] Dx System. This test is cleared by the U.S. Food and Drug Administration for clinical use and its performance characteristics have been verified by the [facility] [employer] and [employer] [facility] at [facility]. This test was performed using the Xpert MRSA NxG test kit and is run on the [employer] Dx System. This test is cleared by the U.S. Food and Drug Administration for clinical use and its performance characteristics have been verified by the [employer] and [employer] [facility] at [facility]. Respiratory Panel PCR [[id number]] (Normal) Collected: 02/18/24923 Lab Status: Final result Specimen: Swab from Nasopharynx Updated: 02/18/24 1050 Respiratory Panel PCR Negative Adenovirus Not Detected Coronavirus HKU1 Not Detected Coronavirus NL63 Not Detected Coronavirus 229E Not Detected Coronavirus OC43 Not Detected SARS-CoV-2 Not Detected Human Metapneumovirus Not Detected Human Rhinovirus/Enterovirus Not Detected Influenza A Not Detected Influenza B Not Detected Parainfluenza 1 Not Detected Parainfluenza 2 Not Detected Parainfluenza 3 Not Detected Parainfluenza 4 Not Detected Respiratory Syncytial Virus Not Detected Chlamydophila pneumoniae Not Detected Mycoplasma pneumoniae Not Detected Narrative: Respiratory Panels are performed on the Echelon using multiplexed PCR nucleic acid detection. Negative results do not preclude respiratory infection and should not be used as the sole basis for diagnosis, treatment, or other management decisions. New Studies: None Assessment & Plan: Jt Grayson is a 63 y.o. female status postaortobifemoral bypass, left femoral endarterectomy. Her recovery has unfortunately been complicated by post- operative respiratory issues in the setting ofa lobe collapse, with increasing oxygen requirements and work of breathing to maintain adequate oxygen saturations ultimately requiring re-intubation early AM on 02/17. She was successfully extubatedon 02/19. From a vascular standpoint, her incision sites appear stable and healing appropriately, and she has palpable distal pulses bilaterally, which is reassuring. 02/23/24: Progressing well, now on RA with decreasing CT drainage. Recommendations to pull CT todaywith CXR 4 hours post. Daily labs pending, trend Hgb and lytes, replete prn. Unfortunately she went back on levophed s/p tizanidine use - has been discontinued. Plan: - Wean pressors as able, once off consider transition to stepdown level of care - OOB, PT/OT - Continue to f/u cxs - consider CT removal today - CXR [address] - Aspirin 81mg daily PO - ID: Zosyn - SBP goal <160, PRN hydralazine and labetalol available - Tylenol, dilaudid, PRN. Tizanidine discontinued - SQH for DVT ppx - Labs per ICU, replete lytes PRN - Appreciate respiratory therapy recommendations - Diet: Regular - ICU level of care - replete lytes prn for K>4, Mag>.8, Phos >2.5 Anticoagulation: SQH TID Antiplatelet: ASA 81 mg Mikki Damon APRN 02/23/2024 Pager: [phone] * Care Management - Monica Helms - 02/23/2024 10:55 AM ESTSummary: Advanced Directive Referral AD for VT is complete. Spouse Karthik is agent [phone] cell Daughter is alternate - Enedelia Lombardi [phone] cell 2nd nima Yenifer Hoang has full access and can be informed ,updated and decisional if needed, * Plan of Care - Jacquelin Lam RN - 02/23/2024 7:31 AM EST OUTCOME EVALUATION NOTE: OUTCOME SUMMARY: Jt remains AOx4, NSR w/ LBBB, on 0.5L NC this shift. Levo gtt weaned off; MAP maintained >60.Epidural site dressing remains clean and dry this shift. q2h Neurovasc checks unchanged (See Neurovasc flowsheet). Endorses poor sleep overnight; Melatonin added with little effect. Care clustered, quiet environment and relaxation techniques promoted. CT remains to H2O seal. 3/10 incisional pain throughout shift; endorsing 6/10 breakthrough pain secondary to coughing at 0615, requesting Tylenol (I don't take Narcotics). 625mg PRN Tylenol administered with good effect. PLAN MOVING FORWARD: - q2h Neurovasc - Promote sleep/wake cycle - Continued participation in PT/OT; Promote ambulation - Downgrade (?) INDIVIDUALIZED FALL PREVENTION INTERVENTIONS: Patient-specific fall risk factors per assessment: [current deficits]: bed alarm set, near nursing station, call matias within reach, side rails raised x3 Assistance [level of assistance required for transfers and ambulation]: standby- assist with walker Supervision [direct monitoring required during toileting and ADLs]: Direct Surveillance [continuous indirect monitoring]: Quinn monitor, telemetry, pulse ox Patient-specific fall prevention interventions for sensory deficits provided, if applicable: YES CPG GOAL OUTCOME EVALUATION: Outcome: Ongoing (Interventions Implemented as Appropriate) * Plan of Care - Alia Ochoa RN - 02/22/2024 6:20 PM EST OUTCOME EVALUATION NOTE: OUTCOME SUMMARY: Pt a+o x4, follows commands x4. Levo 0-4 for MAP >60. Remains on 1L NC unable to wean (desats to 80s on RA). Echo completed. Ambulated with PT, up to chair for several hours. CT to water seal today. Q2 neurovascs WNL. Epidural catheter removed per APS in AM. Around 1630, old epidural site noted to be leaking clear fluid. Team aware and at bedside to assess. No headache reported. PLAN MOVING FORWARD: Q2 neurovascs Pulm hygiene D/c planning Delirium prevention INDIVIDUALIZED FALL PREVENTION INTERVENTIONS: Patient-specific fall risk factors per assessment: [current deficits]: lines, hospital environment,medications Assistance [level of assistance required for transfers and ambulation]: total/2a Supervision [direct monitoring required during toileting and ADLs]: hands on Surveillance [continuous indirect monitoring]: quinn icu monitor Patient-specific fall prevention interventions for sensory deficits provided, if applicable: [X] N/A CARE PLAN GOAL OUTCOME EVALUATION: Problem: Adult Inpatient Plan of Care Goal: Plan of Care Review Outcome: Ongoing (Interventions Implemented as Appropriate) Goal: Patient-Specific Goal (Individualized) Outcome: Ongoing (Interventions Implemented as Appropriate) Goal: Absence of Hospital-Acquired Illness or Injury Outcome: Ongoing (Interventions Implemented as Appropriate) Goal: Optimal Comfort and Wellbeing Outcome: Ongoing (Interventions Implemented as Appropriate) Goal: Readiness for Transition of Care Outcome: Ongoing (Interventions Implemented as Appropriate) Problem: Fall Injury Risk Goal: Absence of Fall and Fall-Related Injury Outcome: Ongoing (Interventions Implemented as Appropriate) * Care Management - Carie Bliss RN - 02/22/2024 1:28 PM EST OFFICE OF CARE MANAGEMENT PROGRESS NOTE LOS: Hospital Day 6 days Chart reviewed, care reviewed with primary team and at interdisciplinary rounds. Medical Decision Maker: Self Financial Decision Maker: Self Functional status prior to admission: Independent Home Environment: Others in the home: pet(s), spouse (Patient lives with her and dog). Current Living Arrangements: home/apartment/condo. Accessibility Concerns: 3 steps to enter with single level home. Current Functional Ability: Assistive Person and Equipment DME used at home: none DME Needed at Discharge: No Patient is insured through: Primary Insurance: MEDICARE Payor: MEDICARE / Plan: MEDICARE PART A ONLY / Product Type: *No Product type* / Secondary Insurance: [facility] Last Physical Therapy Recommendation: home with supervision, home with home health with None (02/22/24 1205) Plan for discharge is: Home w/ Services Outpatient Agency/Support Group Needs: None Home Health Services: Occupational Therapy, Physical Therapy, Registered Nurse Agency Referrals: [facility]. [address] [place] [id number] Transportation: family or friend will provide Barriers to discharge: Global: Denies needs/concerns at this time, ICU Needs ICU Needs: vasoactive medications Plan: Patient is not medically ready related to: patient continues with the epidural in place for pain control and a low dose of levo for pressure support. . Plan going forward is: home with VNA at time of discharge Anticipated Date of Discharge: 03/02/2024 Carie VASQUEZ, RN CM Phone: [phone] Pager: [phone] * Consult Note - Mikki Damon APRN - 02/22/2024 9:37 AM EST Images from the original note were not included. Vascular Surgery Progress Note Jt Grayson is a 63 y.o. 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 The patient has not had any changes to her motor or sensory function. The patient's right limb of her aortobifemoral bypass was incidentally found to be occluded on a CT in August 2023, however she has been asymptomatic from this. The patient is a former smoker and quit in 2012. She was started on a heparin drip while admitted however was discharged on a lovenox bridge. Prior vascular history See above Active Hospital Problems Diagnosis Critical limb ischemia of both lower extremities with bypass graft Resolved Hospital Problems No resolved problems to display. Active Non-Hospital Problems Diagnosis Critical limb ischemia of both lower extremities with autologous bypass graft Left leg pain Back pain Right leg pain Scheduled Medications: Neuraxial/Epidural shift total and Settings verification Epidural 2 Times Daily- Neuraxial Shift Total tiZANidine 4 mg Oral TID lidocaine 1 patch Transdermal Daily aspirin 81 mg Oral Daily senna-docusate 2 tablet Oral BID piperacillin-tazobactam 3.375 g Intravenous Q8H heparin (porcine) 5,000 Units Subcutaneous Q8H JENNIFER ipratropium-albuteroL 3 mL Nebulization Q4H JENNIFER sodium chloride 4 mL Nebulization Q8H sodium chloride 0.9 % (flush) 5 mL Intravenous BID famotidine 20 mg Oral BID montelukast 5 mg Oral Nightly loratadine 10 mg Oral Daily sodium chloride 0.9 % (flush) 5 mL Intravenous BID Operations This Hospitalization Bilateral aortobifemoral bypass, left femoral endarterectomy (02/15, Segundo/Belinda/Isabel) Interim: - NC 1.5L 92-94%, HDS, NAEO, BM 02/21 - morris out, epidural PCEA only - CT with 230 mL 24 hours output - Hgb 8.1(8.2) - WBC WNL - K 3.3 Objective: Temp: [36.5 ??C (97.7 ??F)-37.3 ??C (99.1 ??F)] Heart Rate: [69-109] Resp: [18-29] BP: (74-130)/(34-67) SpO2: [90 %-100 %] Heart Rate from SpO2: [70 bpm-109 bpm] BMI: Weight: 57.5 kg (126 lb 12.2 oz) (02/22/24 0500) BMI (Calculated): 23.04 BMI Classification: Normal Weight Intake/Output Summary (Last 24 hours) at 02/22/2024 0938 Last data filed at 02/22/2024 0638 Gross per 24 hour Intake 1601.55 ml Output 1180 ml Net 421.55 ml PHYSICAL EXAM: GEN: Alert and appears stated age. Cooperative. In NAD. HEENT: Normocephalic and atraumatic. CV: Regular rate. Pulm: Breathing on room air. Abd: Soft, non-distended, non-tender to palpation. Skin: Color, texture, turgor normal. Neuro: Sensation and motor grossly intact. Able to wiggle toes, plantarflex, and dorsiflex L/R foot. Extremities: L and R groin incision sites with mepilex bandage c/d/I, no evidence of hematoma or active drainage. Vascular: 2+ DP pulses palpable on right and left Labs: Recent Labs 02/22/24 0020 02/21/24 0124 02/20/24 0006 WBC 7.28 6.95 9.76* HGB 8.1* 8.2* 8.5* HCT 24.6* 24.8* 26.0* PLATELET 271 238 214 Recent Labs 02/22/24 0020 02/21/24 0124 02/20/24 1840 02/20/24 1056 02/20/24 0006 NA 139 141 -- -- 141 K 3.3* 3.5 3.7 3.5 3.6 CL 104 105 -- -- 106 CO2 26 26 -- -- 27 BUN 6* 6* -- -- 6* CREATININE 0.58* 0.57* -- -- 0.59* PHOS 3.9 3.3 -- -- 2.7 CALCIUM 8.2* 8.1* -- -- 8.0* Microbiology: Microbiology Results (last 7 days) Procedure Component Value - Date/Time Blood culture [[id number]] Collected: 02/18/24950 Lab Status: Preliminary result Specimen: Blood, Venous Updated: 02/21/24 120 Blood Culture No growth at 72 hours Blood culture [[id number]] Collected: 02/18/24950 Lab Status: Preliminary result Specimen: Blood, Venous Updated: 02/21/24 120 Blood Culture No growth at 72 hours Respiratory Culture, Quantitative [[id number]] (Abnormal) (Susceptibility) Collected: 02/18/24 1446 Lab Status: Final result Specimen: Bronchial Alveolar Lavage from Lung, Left Lower Lobe Updated: 02/20/24 09 Quantitative Bacterial Culture 4,000 CFU/mL Citrobacter freundii complex Gram Stain Cytocentrifuge Gram Stain performed Neutrophils seen No microorganisms seen Susceptibility Citrobacter freundii complex VITEK 2 METHOD Cefazolin (Systemic) Resistant Cefepime Susceptible Ceftriaxone Susceptible [1] Ciprofloxacin Susceptible Gentamicin Susceptible Levofloxacin Susceptible Piperacillin/Tazobactam Susceptible Trimethoprim/Sulfa Susceptible [1] This organism may develop resistance during therapy with 3rd generation cephalosporins (e.g. cefTRIaxone, cefTAZidime), particularly with prolonged durations, due to production of inducible AmpC beta-lactamase. MRSA PCR Screen [[id number]] (Normal) Collected: 02/18/24923 Lab Status: Final result Specimen: Swab from Nares Updated: 02/18/24 171 MRSA PCR Not Detected Narrative: This test was performed using the Xpert MRSA NxG test kit and is run on the [employer] Dx System. This test is cleared by the U.S. Food and Drug Administration for clinical use and its performance characteristics have been verified by the [employer] [facility] [employer] [facility] at [facility]. This test was performed using the Xpert MRSA NxG test kit and is run on the [employer] Dx System. This test is cleared by the U.S. Food and Drug Administration for clinical use and its performance characteristics have been verified by the [facility] at [facility]. Respiratory Panel PCR [[id number]] (Normal) Collected: 02/18/24 0924 Lab Status: Final result Specimen: Swab from Nasopharynx Updated: 02/18/24 1050 Respiratory Panel PCR Negative Adenovirus Not Detected Coronavirus HKU1 Not Detected Coronavirus NL63 Not Detected Coronavirus 229E Not Detected Coronavirus OC43 Not Detected SARS-CoV-2 Not Detected Human Metapneumovirus Not Detected Human Rhinovirus/Enterovirus Not Detected Influenza A Not Detected Influenza B Not Detected Parainfluenza 1 Not Detected Parainfluenza 2 Not Detected Parainfluenza 3 Not Detected Parainfluenza 4 Not Detected Respiratory Syncytial Virus Not Detected Chlamydophila pneumoniae Not Detected Mycoplasma pneumoniae Not Detected Narrative: Respiratory Panels are performed on the Echelon using multiplexed PCR nucleic acid detection. Negative results do not preclude respiratory infection and should not be used as the sole basis for diagnosis, treatment, or other management decisions. New Studies: none Assessment & Plan: Jt Grayson is a 63 y.o. female status postaortobifemoral bypass, left femoral endarterectomy. Her recovery has unfortunately been complicated by post- operative respiratory issues in the setting ofa lobe collapse, with increasing oxygen requirements and work of breathing to maintain adequate oxygen saturations ultimately requiring re-intubation early AM on 02/17. She was successfully extubatedon 02/19. From a vascular standpoint, her incision sites appear stable and healing appropriately, and she has palpable distal pulses bilaterally, which is reassuring. 02/22/24: Progressing well post surgically with decreasing O2 requirements and minimal pressor requirements. Would recommend pulling epidural today as pain tolerates, CT afterward if drainage remainsminimal. Hopefully can get levo off after this and move toward stepdown level of care. OOB, work with PT/OT. Plan: - Wean pressors as able, once off consider transition to stepdown level of care - OOB, PT/OT - Continue to f/u cxs - consider CT removal today post epidural pull - CXR [address] pull - consider epidural pull today, CT afterward - Aspirin 81mg daily PO - ID: Zosyn - SBP goal <160, PRN hydralazine and labetalol available - Tylenol, dilaudid, tizanidine TID, PRN. APS epidural, recs appreciated - SQH for DVT ppx - Labs per ICU, replete lytes PRN - Appreciate respiratory therapy recommendations - Diet: Regular - ICU level of care - replete lytes prn for K>4, Mag>.8, Phos >2.5 Anticoagulation: SQH TID Antiplatelet: ASA 81 mg Mikki Damon APRN 02/22/2024 Pager: [phone] * Consult Note - Shelly Fox RN - 02/22/2024 9:30 AM ESTSummary: VAS Rounding Images from the original note were not included. During VAS Purposeful Rounding, an assessment of your patient's venous access was performed fby theVascular Access Service. The following tasks were performed if needed and communicated to the bedside RN Choose all that apply: [] PIV(s) checked for patency if daily need for flush needs to be performed [] CVAD was checked for patency if daily flush needs to be performed [] IV tubing clamped or capped if needed [x] Visual inspection of your patient's central line dressing integrity [x] Review of indications for vascular access [x] A photo was taken of your patient's central line [] Visual inspection of your patient's IV dressing integrity [] Other While rounding an intervention was needed and communicated to the bedside RN Choose all that apply: [] Nonocclusive IV dressing addressed [] Nonocclusive CVAD dressing (please identify type of line) [] Infusion site leaking [] IV not patent and removed [] IV not indicated [] IV placed [] IV restarted [] Implanted Port, PICC or ML dressing changed if needed (either PRN or weekly) [] Other * Plan of Care - Reyes Kemp RN - 02/22/2024 6:57 AM EST OUTCOME EVALUATION NOTE: OUTCOME SUMMARY: Pt A&O x 4.On 1.5L NC. Levo titrated for Maps >60. Neurovascular checks remain unchanged. Epidural remains in place, Pulling today per team. Chest tube draining serous fluid, see EDH for output. Pt had multiple loose liquid Bms. K replaced. PLAN MOVING FORWARD: Q2 Neurovascular checks Epidural Mobilize INDIVIDUALIZED FALL PREVENTION: Patient is currently a high risk to Fall. Patient educated on bed/chair alarm, demonstrates proper use of call matias and verbalizes understanding of fall preventions implemented. Patient-specific fall prevention interventions for sensory deficits provided, if applicable: [X] Yes Patient-specific fall risk factors per assessment: [current deficits]: Lines, drains, pain, generalized weakness, altered mental status, medication effects, hospital equipment, mobility limitations Assistance [level of assistance required for transfers and ambulation]: 1A Supervision [direct monitoring required during toileting and ADLs]: Hands On Surveillance [continuous indirect monitoring]: Quinn ICU, bed alarm, purposeful rounding, room near nurses station CPG GOAL OUTCOME EVALUATION: Problem: Adult Inpatient Plan of Care Goal: Plan of Care Review Outcome: Ongoing (Interventions Implemented as Appropriate) Goal: Patient-Specific Goal (Individualized) Outcome: Ongoing (Interventions Implemented as Appropriate) Goal: Absence of Hospital-Acquired Illness or Injury Outcome: Ongoing (Interventions Implemented as Appropriate) Goal: Optimal Comfort and Wellbeing Outcome: Ongoing (Interventions Implemented as Appropriate) Goal: Readiness for Transition of Care Outcome: Ongoing (Interventions Implemented as Appropriate) Problem: Fall Injury Risk Goal: Absence of Fall and Fall-Related Injury Outcome: Ongoing (Interventions Implemented as Appropriate) Problem: Restraint, Nonbehavioral (Nonviolent) Goal: Discontinuation Criteria Achieved Outcome: Outcome (s) achieved * Plan of Care - Alia Ochoa RN - 02/21/2024 6:28 PM EST Problem: Adult Inpatient Plan of Care Goal: Plan of Care Review Outcome: Ongoing (Interventions Implemented as Appropriate) Goal: Patient-Specific Goal (Individualized) Outcome: Ongoing (Interventions Implemented as Appropriate) Goal: Absence of Hospital-Acquired Illness or Injury Outcome: Ongoing (Interventions Implemented as Appropriate) Goal: Optimal Comfort and Wellbeing Outcome: Ongoing (Interventions Implemented as Appropriate) Goal: Readiness for Transition of Care Outcome: Ongoing (Interventions Implemented as Appropriate) Problem: Fall Injury Risk Goal: Absence of Fall and Fall-Related Injury Outcome: Ongoing (Interventions Implemented as Appropriate) * Plan of Care - Reyes Kemp RN - 02/21/2024 6:48 AM EST OUTCOME EVALUATION NOTE: OUTCOME SUMMARY: Pt A&O x 4.On 1.5L NC. Levo titrated for Maps >60. Neurovascular checks remain unchanged. Epidural remains in place. Pt morris draining CYU. K replaced. PLAN MOVING FORWARD: Q2 Neurovascular checks Epidural Mobilize INDIVIDUALIZED FALL PREVENTION: Patient is currently a high risk to Fall. Patient educated on bed/chair alarm, demonstrates proper use of call matias and verbalizes understanding of fall preventions implemented. Patient-specific fall prevention interventions for sensory deficits provided, if applicable: [X] Yes Patient-specific fall risk factors per assessment: [current deficits]: Lines, drains, pain, generalized weakness, altered mental status, medication effects, hospital equipment, mobility limitations Assistance [level of assistance required for transfers and ambulation]: 1A Supervision [direct monitoring required during toileting and ADLs]: Hands On Surveillance [continuous indirect monitoring]: Quinn ICU, bed alarm, purposeful rounding, room near nurses station CPG GOAL OUTCOME EVALUATION: Problem: Adult Inpatient Plan of Care Goal: Plan of Care Review Outcome: Ongoing (Interventions Implemented as Appropriate) Goal: Patient-Specific Goal (Individualized) Outcome: Ongoing (Interventions Implemented as Appropriate) Goal: Absence of Hospital-Acquired Illness or Injury Outcome: Ongoing (Interventions Implemented as Appropriate) Goal: Optimal Comfort and Wellbeing Outcome: Ongoing (Interventions Implemented as Appropriate) Goal: Readiness for Transition of Care Outcome: Ongoing (Interventions Implemented as Appropriate) Problem: Fall Injury Risk Goal: Absence of Fall and Fall-Related Injury Outcome: Ongoing (Interventions Implemented as Appropriate) Problem: Restraint, Nonbehavioral (Nonviolent) Goal: Discontinuation Criteria Achieved Outcome: Outcome (s) achieved * Plan of Care - Elise Mercado RN - 02/20/2024 6:25 AM EST OUTCOME EVALUATION NOTE: OUTCOME SUMMARY: Pt vented and sedated, able to to follow commands, CT /epidural remain in place. Levo gtt titrated as needed for MAP goal. Pt pain well controlled. K replaced. NV checks unchanged. SBT passed. CT with min output. CXR completed. PLAN MOVING FORWARD: Q2 NV MAP >60 INDIVIDUALIZED FALL PREVENTION INTERVENTIONS: Patient-specific fall risk factors per assessment: [current deficits]: Lines, drains, pain, generalized weakness, altered mental status, medication effects, hospital equipment, mobility limitations. Assistance [level of assistance required for transfers and ambulation]: 2 assist Supervision [direct monitoring required during toileting and ADLs]: Hands on Surveillance [continuous indirect monitoring]: Quinn ICU, bed alarm, purposeful rounding, room near nurses station. Patient-specific fall prevention interventions for sensory deficits provided, if applicable: YES CARE PLAN GOAL OUTCOME EVALUATION: Problem: Adult Inpatient Plan of Care Goal: Plan of Care Review Outcome: Ongoing (Interventions Implemented as Appropriate) Goal: Patient-Specific Goal (Individualized) Outcome: Ongoing (Interventions Implemented as Appropriate) Goal: Absence of Hospital-Acquired Illness or Injury Outcome: Ongoing (Interventions Implemented as Appropriate) Goal: Optimal Comfort and Wellbeing Outcome: Ongoing (Interventions Implemented as Appropriate) Goal: Readiness for Transition of Care Outcome: Ongoing (Interventions Implemented as Appropriate) Problem: Fall Injury Risk Goal: Absence of Fall and Fall-Related Injury Outcome: Ongoing (Interventions Implemented as Appropriate) Problem: Restraint, Nonbehavioral (Nonviolent) Goal: Discontinuation Criteria Achieved Outcome: Ongoing (Interventions Implemented as Appropriate) * Consult Note - Haley Mendoza RD - 02/19/2024 1:03 PM EST Nutrition Consult Note Jt Grayson is a 63 y.o. 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 Interval History No data found. Reason for Assessment: ICU Tube Feeding Nutrition Recommendations: Peptamen AF with a goal rate of 50 mL per hour At goal, this will provide 1200 mL formula, 1440 calories, 91 grams protein, 974 mL water from formula, and 96% of the RDI's for vitamin and minerals. VDE score < 12 (= 10) - lower risk for pressor related TF intolerance *Pt is on pressors which may increase risk for gastrointestinal hypoperfusion with enteral feeds. Monitor for increasing abdominal distention, constipation, elevated gastric residuals, or ileus. Mg and phos with daily labs - replenish prn Monitor BM - optimize regimen with goal of 1 [id number] while on TF Monitor BG - goal of 140-180 Daily weights I was able to discuss plan with provider JAZMÍN [id number] . Current Nutrition Regimen: Active Orders Diet NPO diet (Give Meds) Frequency: Effective Now Number of Occurrences: Until Specified Assessment: Lab Results Component Value Date NA 139 02/19/2024 K 3.8 02/19/2024 CL 104 02/19/2024 CO2 28 02/19/2024 BUN 5 (L) 02/19/2024 CREATININE 0.54 (L) 02/19/2024 ESTGFR 104 02/19/2024 MAGNESIUM 0.77 02/19/2024 CALCIUM 7.8 (L) 02/19/2024 PHOS 2.6 02/19/2024 AST 13 02/04/2024 ALT 18 02/04/2024 ALKPHOS 94 02/04/2024 BILITOT 0.3 02/04/2024 BILIDIR <0.2 02/04/2024 Lab Results Component Value Date POCGLU 120 02/19/2024 POCGLU 150 02/19/2024 POCGLU 130 02/19/2024 POCGLU 150 02/18/2024 POCGLU 113 02/18/2024 Patient Lines/Drains/Airways Status Active Nutritional LDAs Name Placement date Placement time Site Days Naso/Oral Tube 02/18/24 0520 left mouth 02/18/24 0520 left mouth 1 PIV 02/16/24 0616 22 gauge metacarpal vein (top of hand), right 02/16/24 0616 -- 3 PIV 02/16/24 0835 18 gauge basilic vein (medial side of arm), right 02/16/24 0835 -- 3 PIV 02/17/24 1616 20 gauge basilic vein (medial side of arm), left 02/17/24 1616 -- 2 Percutaneous Central Line 02/18/24 194 Triple Lumen 7 Fr internal jugular vein, left 02/18/24 1943-- 1 Chest Tube 02/16/24 1546 Chest Tube Left lateral 02/16/24 1546 -- 3 Urethral Catheter 02/18/24 1008 100% silicone 14 10 10 02/18/24 1008 -- 1 Oxygen Therapy / Airway Device: Ventilator Shift Pressure Injury Prevention Occiput: No Injury Thoracic Spine: No Injury Sacral: Redness, Blanchable Ischial - left: No Injury Ischial - right: No Injury Heel - left: No Injury Heel - right: No Injury Elbow - left: No Injury Elbow - right: No Injury Device Sites: ECG Leads, morris, IV sites, O2 sat monitor, SCD's / venodynes, BP Cuff, ETT, OG, wrist restraints Other Sites: CT, epidural Last Bowel Movement: 02/19/24 Intake/Output Summary (Last 24 hours) at 02/19/2024 1331 Last data filed at 02/19/2024 1200 Gross per 24 hour Intake 3449.35 ml Output 1800 ml Net 1649.35 ml Relevant medications: Continuous dexmedeTOMIDine 0.4 mcg/kg/hr (02/19/24 1200) propofoL Stopped (02/19/24 1153) NORepinephrine 6 mcg/min (02/19/24 1318) BUPivacaine (pf) 0.125 % in sodium chloride 0.9% 250 mL epidural (mixture) 2 mL/hr at 02/19/24 0828 Scheduled acetylcysteine 600 mg Inhalation BID chlorhexidine 15 mL Oral BID senna-docusate 2 tablet Oral BID aspirin 300 mg Rectal Daily azithromycin 500 mg Oral Daily piperacillin-tazobactam 3.375 g Intravenous Q8H Neuraxial/Epidural shift total and Settings verification Epidural 2 Times Daily- Neuraxial Shift Total heparin (porcine) 5,000 Units Subcutaneous Q8H JENNIFER ipratropium-albuteroL 3 mL Nebulization Q4H JENNIFER sodium chloride 4 mL Nebulization Q8H sodium chloride 0.9 % (flush) 5 mL Intravenous BID famotidine 20 mg Oral BID montelukast 5 mg Oral Nightly loratadine 10 mg Oral Daily sodium chloride 0.9 % (flush) 5 mL Intravenous BID PRN potassium chloride ER OR potassium chloride ER, potassium, sodium phosphates OR potassium, sodium phosphates, polyethylene glycoL (MIRALAX) oral powder AND bisacodyL AND bisacodyLEC AND lactulose AND lactulose AND magnesium citrate AND Tap water enema, HYDROmorphone OR HYDROmorphone, HYDROmorphone, propofoL AND propofoL, ondansetron, naloxone, nalbuphine, prochlorperazine, sodium chloride 0.9 % (flush), lidocaine, lidocaine, diphenhydrAMINE, lidocaine Anthropometrics: Admit Weight: 55.79 kg Estimated body mass index is 23.35 kg/m?? as calculated from the following: Height as of this encounter: 160 cm (5' 3). Weight as of this encounter: 59.8 kg (131 lb 13.4 oz). [place] Body Weight (IBW) (kg): 52.27 Wt Readings from Last 10 Encounters: 02/19/24 59.8 kg (131 lb 13.4 oz) 02/09/24 56.2 kg (124 lb) 02/04/24 56.2 kg (124 lb) 01/28/24 57.3 kg (126 lb 5.2 oz) 01/07/24 56.4 kg (124 lb 5.4 oz) 12/15/23 54.4 kg (120 lb) 11/25/23 55 kg (121 lb 4.1 oz) 10/27/11 55.3 kg (122 lb) 09/22/11 54.4 kg (120 lb) Patient Vitals for the past 168 hrs: Weight 02/19/24 0600 59.8 kg (131 lb 13.4 oz) 02/17/24 0600 59.7 kg (131 lb 9.8 oz) 02/16/24 1800 59 kg (130 lb 1.1 oz) 02/16/24 0610 55.8 kg (123 lb) Weight Source: Bed Estimated / Assessed Needs: Kcal / K - 1495 Kcal (20 Kcal/Kg - 25 Kcal/Kg) Estimated Protein Needs: 90 g - 120 g (1.5 g/Kg - 2.0 g/Kg) Nutrition intake and intake history / interview: 02/18: Consulted for TF recs. Per team, starting trickle TF only today. No data found. Nutrition Focused Physical Exam: Not performed Reason NFPE Not Performed: Patient not available at time of assessment. Malnutrition Diagnosis: Not enough data to assess (CRISTINA Maloney J Parenteral Enteral Nutr. 2011; 36(3): 273-83) Nutrition to continue to follow up while inpatient Thank you, Haley Brewer. Reji, MS, RD, LD, [facility] Clinical Nutrition * Care Management - Carie Bliss RN - 02/19/2024 11:11 AM EST OFFICE OF CARE MANAGEMENT PROGRESS NOTE LOS: Hospital Day 3 days Chart reviewed, care reviewed with primary team and at interdisciplinary rounds. Medical Decision Maker: Self Financial Decision Maker: Self Functional status prior to admission: Independent Home Environment: Others in the home: pet(s), spouse (Patient lives with her and dog). Current Living Arrangements: home/apartment/condo. Accessibility Concerns: 3 steps to enter with single level home. Current Functional Ability: Completely Dependent DME used at home: none DME Needed at Discharge: No Patient is insured through: Primary Insurance: MEDICARE Payor: MEDICARE / Plan: MEDICARE PART A ONLY / Product Type: *No Product type* / Secondary Insurance: [facility] Last Physical Therapy Recommendation: home with supervision, home with home health with None (02/17/24 0943) Plan for discharge is: Home w/ Services Outpatient Agency/Support Group Needs: None Home Health Services: Occupational Therapy, Physical Therapy, Registered Nurse Agency Referrals: Not Applicable Transportation: family or friend will provide Barriers to discharge: Global: Denies needs/concerns at this time ICU Needs: mechanically ventilated, vasoactive medications, ICU specific devices / therapies Plan: Patient is not medically ready related to: Patient is currently intubated, sedated, central line placed, on levo. Plan going forward is: Will need to be re evaluated once extubated Anticipated Date of Discharge: 02/23/2024 Carie VASQUEZ, RN Phone: [phone] Pager: [phone] * Plan of Care - Alicja Macias RN - 02/19/2024 6:11 AM EST OUTCOME SUMMARY: Central line placed per CCS. X-ray confirmed. Prop gtt titrated to maintain RASS 0/-1. Levo gtt titrated to maintain MAP>60. PLAN MOVING FORWARD: Pulm toilet. Wean levo and prop as tolerated. * Plan of Care - Catherine Warren RN - 02/18/2024 5:42 PM EST OUTCOME EVALUATION NOTE: OUTCOME SUMMARY: Assumed care of pt @0700. Intubated, sedated with propofol. Fentanyl gtt initiated for pain. Epidural weaned per APS. Able to follow commands in all extremities & answer simple questions. Levo gtt titrated for MAP goal > 60 & SBP > 90. 500 ml bolus LR given x2 per orders. Tmax 38.3, infx workup completed. Morris replaced per protocol for UA, AUOP. Left CT to -20 cmH2O with serosang ou tput. PLAN MOVING FORWARD: MAP goal > 60 & SBP goal > 90 Wean FiO2 able to work to extubation Pain management L CT to -20 cm H2O CPG GOAL OUTCOME EVALUATION: Ongoing * Plan of Care - Alicja Macias RN - 02/18/2024 6:32 AM EST OUTCOME SUMMARY: Received pt on Bi-Pap. Pt tachypnic in the high 30's- low 40's, team aware. Chest CT obtained. Pt intubated ~0430. Levo gtt titrated to maintain MAP>60. Q2 NV checks unchanged. 12 lead obtained. OG tube placed to LCWS. PLAN MOVING FORWARD: Q2 NV Wean prop and levo as tolerated. * Plan of Care - Larisa Gomez RN - 02/17/2024 6:38 PM EST OUTCOME EVALUATION NOTE: OUTCOME SUMMARY: Pt A&Ox4. Able to communicate and make needs known without difficulty. Pt O2 requirement increasing. Chest xray obtained. Pt able to transfer from bed to the chair with PT/OT. Diet advanced, small amount of PO intake. Pt back to bed and requiring increased O2 requirements. Pt complaining of increased pain when attempting to breath. Repeat xrays and labs collected. Pt transitioned to CPAP. disaster recovery manager and vascular both aware of patients need for FMLA paperwork to be filled out. disaster recovery manager deferred to the vascular team. Vascular team at bedside and aware of importance of paperwork being filled out in a timely manner. Team stated they would discuss with physician assistant primary care and follow up, paperwork left at bedside. Pt hypotensive at the end of shift, fluids restarted per team at 100ml/hr. Family visiting at bedside intermittently during shift. PLAN MOVING FORWARD: Pain management. Q12H labs. Downgrade as able. INDIVIDUALIZED FALL PREVENTION INTERVENTIONS: Patient-specific fall risk factors per assessment: [current deficits]: bed alarm set, near nursing station, call matias within reach Assistance [level of assistance required for transfers and ambulation]: 1 assist Supervision [direct monitoring required during toileting and ADLs]: Direct Surveillance [continuous indirect monitoring]: Quinn monitor, telemetry, pulse ox Patient-specific fall prevention interventions for sensory deficits provided, if applicable: YES CARE PLAN GOAL OUTCOME EVALUATION: YES * Initial Assessments - Carie Bliss RN - 02/17/2024 2:36 PM EST Office of Care Management Initial Assessment Carie Bliss RN reviewed record and discussed patient with Care Team. Source of Information: Team, bedside nurse, medical record, and Patient Introduced self/reviewed role; services accepted. Admitted From: Home Reason for Hospitalization: leg pain Past medical History: Past Medical History: Diagnosis Date Back pain 10/27/2011 Right leg pain 10/27/2011 Hospitalizations Within the Past 30 Days: no previous admission in last 30 days Current Decision-Making Capacity: Self If AD's have not been completed the following surrogate would be surrogate decision maker per [place] surrogate decision making law. (Only good for 180 days) Any patient receiving care in [place] must abide by [place] law. The hierarchy for surrogate decision making is: (a) Patient???s spouse or civil union partner unless there is a divorce proceeding, separation agreement, or restraining order limiting that person???s relationship with the patient. (b) Any adult son or daughter of the patient. (c) Either parent of the patient. (d) Any adult brother or sister of the patient. (e) Any adult grandchild of the patient. (f) Any grandparent of the patient. (g) Any adult aunt, uncle, niece, or nephew of the patient. (h) A close friend of the patient. (i) The agent with financial power of assistant county attorney or a conservator appointed in accordance with RSA 464-A. (j) The guardian of the patient???s estate. Advance Care Planning: Attempt Cardiopulmonary Resuscitation - Inpatient <no information> -Advanced Directive: No, declines Current Coping/Education/Information Needs: patient will need to work with PT/OT Current Functional Ability: Assistive Person Functional Status Prior to Admission: Independent Prior ADLs & IADLs: Independent with all ADLs & IADLs Home Environment: Others in the home: pet(s), spouse (Patient lives with her and dog). Current Living Arrangements: home/apartment/condo. Accessibility Concerns:3 steps to enter with single level home. In the last 12 months, was there a time when you were not able to pay the mortgage or rent on time?: No In the past 12 months, how many times have you moved where you were living?: 0 At any time in the past 12 months, were you homeless or living in a prison (including now)?: No In the past 12 months has the electric, gas, oil, or water company threatened to shut off services in your home?: No Within the past 12 months, you worried that your food would run out before you got the money to buymore.: Never true Within the past 12 months, the food you bought just didn't last and you didn't have money to get more.: Never true Resource / Environmental Concerns: Resource/Environmental Concerns: none Home Accessibility Concerns: stairs to enter home In the past 12 months, has lack of transportation kept you from medical appointments or from getting medications?: No Current DME: none Home Address confirmed as: [address] [place] [phone] Social & Family Supports: All names listed below confirmed with patient as current and correct Extended Emergency Contact Information Primary Emergency Contact: Karthik Grayson Mobile Relation: Spouse Secondary Emergency Contact: Enedelia Lombardi Relation: Child Current Care Provided by: self Provides Primary Care For: no one Caregiver if needed: spouse Quality of Family relationships: helpful, involved, supportive Community Resources being provided currently: none Behavioral Health History: denies Substance Use/Abuse listed: Social History Tobacco Use Smoking Status Former Current packs/day: 0.00 Average packs/day: 1 pack/day for 30.0 years (30.0 ttl pk-yrs) Types: Cigarettes Quit date: 2012 Years since quittin.8 Smokeless Tobacco Never Tobacco Comments 3/4TH PK A DAY In the past year have you used an illegal drug or used a prescription medication for non-medical reasons?: No 0 No problems reported 1-2 Low level 3-5 Moderate level 6-8 Substantial level 9- 10 Severe level In the past year have you had 4 or more drinks a day containing alcohol?: No 0 to 7 points: Low risk 8 to 15 points: Medium risk 16 to 19 points: High risk 20 to 40 points: Addiction likely Other Pertinent/Service Specific Information: denies Health/Prescription Coverage: Primary Insurance: MEDICARE Payor: MEDICARE / Plan: MEDICARE PART A ONLY / Product Type: *No Product type* / Secondary Insurance: [facility] ; Prescription Coverage: Yes Preferred Pharmacy: [id number] [place], [place] - [address] [facility] [address] [facility] [phone] [facility] [address] [place], [place] - [address] [facility] [address] [facility] [address] [place], [place] - [address] [facility] [address] [facility] [address] [facility] [address] [place] Status: Patient is a : No Primary Care Provider confirmed: Estrella Mckay APRN [phone] Patient/Caregiver Goals of Treatment: home with at time of discharge. Potential Needs for Transition of Care: home health care Agency Referrals: The patient has been provided a list of Home Health Agencies/DME vendors which serve their preferred geographic area. A letter describing our affiliations was reviewed with them and they were educated about their right to choose where referrals are placed. Provided patient with [facility] Star Quality Rating handout. They have requested referrals to: [facility]. [address] [place] [phone] Expected date of discharge: 02/20/2024 Referral routed to the Pricing Specialist for matching with agency/vendor and to provide any required information. Transportation: no concerns Transportation Anticipated: family or friend will provide Concerns to be Addressed: denies needs/concerns at this time Assessment: Patient is admitted to vascular service for worsening left foot pain Plan going forward: patient will continue to work with PT/OT, pain control, OOB with staff Care Management team will continue to follow and assist with discharge planing and coordination of care as indicated. Carie VASQUEZ RN Phone: [phone] Pager: [phone] * Plan of Care - Alicja Macias RN - 02/17/2024 6:30 AM EST OUTCOME SUMMARY: Pts pain increased throughout the night. Educated on use of [employer] button. Pts SBP in the high 80's-low 90's, MAP in the low 60's, team aware. VS order updated. Q2 neurovasc checks unchanged PLAN MOVING FORWARD: Q2 NV documented in this encounter Plan of Treatment Upcoming Encounters Date Type Department Care Team (Late st Contact Info) Description 03/02/2024 8:30 AM EST Office Visit Vascular Surgery at [place] [phone] Sarah Bah APRN [facility] [place] [address] 03/04/2024 7:00 AM EST Appointment Mammography/[place] [phone] Edmund Truong MD [facility] [place] [address] 03/07/2024 10:45 AM EST Laboratory Appointment Lab at [facility] Hematology Oncology [address] [place] [phone] 03/07/2024 11:30 AM EST Office Visit Hematology [place] [phone] Bennett Turner, RN 03/07/2024 11:30 AM EST Office Visit Hematology [place] [phone] Edmund Truong MD [facility] DR [place] [address] 03/10/2024 8:15 AM EST Laboratory Appointment Lab at [facility] Hematology Oncology [address] [place] [phone] 03/10/2024 8:30 AM EST Scheduled View Only Hematology [place] [phone] 03/10/2024 9:00 AM EST Office Visit Hematology and Oncology at [place] [phone] Omid Degroot MD [facility] [place] [address] 03/10/2024 9:00 AM EST Office Visit Hematology [place] [phone] Bennett Turner RN 03/25/2024 9:30 AM EST Tech [place] [phone] Carlton Higgins, RVT 03/25/2024 10:15 AM EST Office [place] [phone] Emily Raymond MD [facility] [place] [place] [address] Scheduled Referrals Name Type Priority Associated Diagnoses Orde r Schedule Referral to Home Health Outpatient Referral Routine Critical limb ischemia of both lower extremities with autologous bypass graft Ordered: 02/24/2024 documented as of this encounter Procedures Procedure Name Priority Date/Time Associated Diagnosis Comments CBC (WITH DIFF) Routine 02/24/2024 12:07 AM EST PHOSPHORUS Routine 02/24/2024 12:07 AM EST MAGNESIUM Routine 02/24/2024 12:07 AM EST BASIC METABOLIC PANEL Routine 02/24/2024 12:07 AM EST EKG 12-LEAD Routine 02/23/2024 10:18 PM EST Critical limb ischemia of both lower extremities with bypass graft Tachycardia XR CHEST ONE VIEW Routine 02/23/2024 3:0 3 PM EST POTASSIUM Routine 02/23/2024 7:37 AM EST ECHO LMTD W/O CONTRAST W LMTD SPEC DOPP COLOR DOPP Routine 02/22/2024 3:02 PM EST Postprocedural hypotension IRON AND TIBC Routine 02/22/2024 10:16 AM EST XR CHEST ONE VIEW Routine 02/22/2024 5:1 0 AM EST CBC (WITH DIFF) Routine 02/22/2024 12:20 AM EST PHOSPHORUS Routine 02/22/2024 12:20 AM EST MAGNESIUM STAT 02/22/2024 12:20 AM EST BASIC METABOLIC PANEL Routine 02/22/2024 12:20 AM EST CBC (WITH DIFF) Routine 02/21/2024 1:24 AM EST PHOSPHORUS Routine 02/21/2024 1:24 AM EST MAGNESIUM STAT 02/21/2024 1:24 AM EST BASIC METABOLIC PANEL Routine 02/21/2024 1:24 AM EST POTASSIUM Routine 02/20/2024 6:40 PM EST POTASSIUM Routine 02/20/2024 10:56 AM EST EXTUBATE Routine 02/20/2024 9:53 AM EST XR CHEST ONE VIEW Routine 02/20/2024 5:0 4 AM EST CBC (WITH DIFF) Routine 02/20/2024 12:06 AM EST PHOSPHORUS Routine 02/20/2024 12:06 AM EST MAGNESIUM STAT 02/20/2024 12:06 AM EST BASIC METABOLIC PANEL Routine 02/20/2024 12:06 AM EST POC, GLUCOSE Routine 02/19/2024 8:00 AM EST PHOSPHORUS Routine 02/19/2024 8:00 AM EST BASIC METABOLIC PANEL Routine 02/19/2024 8:00 AM EST POC, GLUCOSE Routine 02/19/2024 4:00 AM EST POC, GLUCOSE Routine 02/19/2024 12:03 AM EST CBC (WITH DIFF) Routine 02/19/2024 12:03 AM EST PHOSPHORUS STAT 02/19/2024 12:03 AM EST MAGNESIUM STAT 02/19/2024 12:03 AM EST BASIC METABOLIC PANEL Routine 02/19/2024 12:03 AM EST POC, GLUCOSE Routine [...] LAVAGE (MIN-BAL) Routine 02/18/2024 11:47 AM EST URINALYSIS BEAKER MICROSCPIC REFLEX EXAM ([facility]) Routine 02/18/2024 10:13 AM EST URINALYSIS MICROSCOPIC WITH REFLEX TO CULTURE Routine 02/18/2024 10:13 AM EST URINALYSIS WITH REFLEX CULTURE Routine 02/18/2024 10:13 AM EST BLOOD CULTURE STAT 02/18/2024 9:51 AM EST BLOOD CULTURE STAT 02/18/2024 9:51 AM EST BLOOD GAS VENOUS POC Routine 02/18/2024 9:43 AM EST RESPIRATORY PANEL PCR Routine 02/18/2024 9:24 AM EST MRSA PCR SCREEN Routine 02/18/2024 9:24 AM EST POC, GLUCOSE Routine 02/18/2024 7:42 AM EST XR CHEST ONE VIEW STAT 02/18/2024 4:4 8 AM EST POC, GLUCOSE Routine 02/18/2024 3:58 AM EST EKG 12-LEAD STAT 02/18/2024 1:39 AM EST Tachycardia CBC (WITH DIFF) Routine 02/18/2024 12:32 AM EST PHOSPHORUS STAT 02/18/2024 12:32 AM EST MAGNESIUM STAT 02/18/2024 12:32 AM EST BASIC METABOLIC PANEL Routine 02/18/2024 12:32 AM EST POC, GLUCOSE Routine 02/18/2024 12:[address] CHEST PULMONARY EMBOLISM W CONTRAST STAT 02/18/2024 12:07 AM EST POC, GLUCOSE Routine 02/17/2024 7:56 PM EST CBC (WITH DIFF) Timed 02/17/2024 6:02 PM EST BASIC METABOLIC PANEL Timed 02/17/2024 6:02 PM EST POC, GLUCOSE Routine 02/17/2024 4:14 PM EST HC PARTIAL THROMBOPLASTIN TIME Routine 02/17/2024 4:10 PM EST PROTHROMBIN TIME Routine 02/17/2024 4:10 PM EST FIBRINOGEN Routine 02/17/2024 4:10 PM EST CBC (WITH DIFF) Routine 02/17/2024 4:10 PM EST BASIC METABOLIC PANEL Routine 02/17/2024 4:10 PM EST BLOOD GAS [...] POC, GLUCOSE Routine 02/17/2024 7:34 AM EST HC PARTIAL THROMBOPLASTIN TIME Routine 02/17/2024 6:05 AM EST PROTHROMBIN TIME Routine 02/17/2024 6:05 AM EST FIBRINOGEN Routine 02/17/2024 6:05 AM EST CBC (WITH DIFF) STAT 02/17/2024 6:05 AM EST BASIC METABOLIC PANEL STAT 02/17/2024 6:05 AM EST POC, GLUCOSE Routine 02/17/2024 3:59 AM EST POC, GLUCOSE Routine 02/17/2024 12:14 AM EST HC PARTIAL THROMBOPLASTIN TIME Routine 02/17/2024 12:14 AM EST PROTHROMBIN TIME Routine 02/17/2024 12:1 4 AM EST FIBRINOGEN Routine 02/17/2024 12:14 AM EST CBC (WITH DIFF) STAT 02/17/2024 12:14 AM EST PHOSPHORUS STAT 02/17/2024 12:14 AM EST MAGNESIUM STAT 02/17/2024 12:14 AM EST BASIC METABOLIC PANEL STAT 02/17/2024 12:14 AM EST POC, GLUCOSE Routine 02/16/2024 8:39 PM EST HC PARTIAL THROMBOPLASTIN TIME Routine 02/16/2024 6:02 PM EST PROTHROMBIN TIME Routine 02/16/2024 6:02 PM EST FIBRINOGEN Routine 02/16/2024 6:02 PM EST CBC (WITH DIFF) STAT 02/16/2024 6:02 PM EST PHOSPHORUS STAT 02/16/2024 6:02 PM EST MAGNESIUM STAT 02/16/2024 6:02 PM EST BASIC METABOLIC PANEL STAT 02/16/2024 6:02 PM EST POC, GLUCOSE Routine 02/16/2024 5:56 PM EST BLOOD GAS ARTERIAL POC Routine 4 3:42 PM EST BLOOD GAS ARTERIAL POC Routine 4 1:26 PM EST BLOOD GAS ARTERIAL POC Routine 4 11:02 AM EST BLOOD GAS ARTERIAL POC Routine 9:08 AM EST ABORH RECHECK (PATIENT HISTORY FOUND) Routine 02/16/2024 8:14 AM EST TYPE AND SCREEN ([facility]) STAT 02/16/2024 8:14 AM EST Bypass Graft Othr, Aortobifemoral ([id number]) 02/16/2024 8:06 AM EST Occluded limb prior aorto bifem XR FLUORO NO RAD <1HR - OR USE Routine 02/16/2024 7:48 AM EST BYPASS GRAFT, AORTOBIFEMORAL W\ SYNTHETIC CONDUIT Routine 02/16/2024 5:58 AM EST documented in this encounter Results * Phosphorus (02/24/2024 12:07 AM EST) Phosphorus 4.0 2.5 - 4.5 mg/dL 02/24/2024 12:49 AM EST [facility] Blood VENOUS BLOOD SPECIMEN / Unknown Venipuncture / Unknown 02/24/2024 12:07 AM EST 02/24/2024 12:19 AM EST Emily Raymond MD CHEMISTRY ORDERABLES [facility] [place] [address] * (ABNORMAL) CBC (with Diff) (02/24/2024 12:07 AM EST) White Blood Cell 7.73 4.00 - 9.50 x10(3)/mc L 02/24/2024 12:23 AM [facility] Red Blood Cell 2.87(L) 4.00 - 5.21 x10(6)/mc L 02/24/2024 12:23 AM [facility] Hemoglobin 9.0(L) 11.7 - 15.5 g/dL 02/24/2024 12:23 AM [facility] Hematocrit 27.0(L) 35.7 - 45.8 % 02/24/2024 12:23 AM [facility] Mean Cell Volume 94.1 82.6 - 94.4 fL 02/24/2024 12:23 AM [facility] Mean Cell Hemoglobin 31.4 27.1 - 32.0 pg 02/24/2024 12:23 AM [facility] Mean Cell Hemoglobin Concentration 33.3 31.7 - 35.0 g/dL 02/24/2024 12:23 AM [facility] Platelet 302 145 - 357 x10(3)/mc L 02/24/2024 12:23 AM [facility] Mean Platelet Volume 8.6 7.6 - 12.9 fL 02/24/2024 12:23 AM [facility] RDW Standard Deviation 46.2(H) 37.0 - 46.0 fL 02/24/2024 12:23 AM [facility] RDW coefficient of variation 13.5 11.5 - 14.1 % 02/24/2024 12:23 AM [facility] NRBC% auto 0.0 % 02/24/2024 12:23 AM [facility] NRBC Absolute <0.01 <0.01 x10(3)/mc L 02/24/2024 12:23 AM [facility] Neutrophil % 59.7 % 02/24/2024 12:23 AM [facility] Neutrophil Absolute (ANC) - Automated 4.61 1.70 - 6.10 x10(3)/mc L 02/24/2024 12:23 AM [facility] Lymph % 26.0 % 02/24/2024 12:23 AM [facility] Lymph Absolute 2.01 0.90 - 3.20 x10(3)/mc L 02/24/2024 12:23 AM [facility] Monocyte % 9.8 % 02/24/2024 12:23 AM [facility] Monocyte Absolute 0.76 0.30 - 0.90 x10(3)/mc L 02/24/2024 12:23 AM [facility] Eos % 3.1 % 02/24/2024 12:23 AM [facility] Eos Absolute 0.24 0.00 - 0.40 x10(3)/mc L 02/24/2024 12:23 AM [facility] Basophil % 0.4 % 02/24/2024 12:23 AM [facility] Baso Absolute <0.04 0.00 - 0.10 x10(3)/mc L 02/24/2024 12:23 AM [facility] Immature Gran % 1.0 % 12:23 AM [facility] Immature Gran Absolute 0.08(H) 0.00 - 0.04 x10(3)/mc L 02/24/2024 12:23 AM [facility] Blood VENOUS BLOOD SPECIMEN / Unknown Venipuncture / Unknown 02/24/2024 12:07 AM EST 02/24/2024 12:19 AM EST Emily Raymond MD HEMATOLOGY ORDERABLE S [facility] [place] [address] * (ABNORMAL) Basic Metabolic Panel (02/24/2024 12:07 AM EST) Glucose 115 65 - 199 mg/dL 02/24/2024 12:49 AM [facility] Comment:Glucose Concentratio n >=200 mg/dL plus symptoms is consistent with Diabetes Mellitus. Blood Urea Nitrogen 5(L) 8 - 18 mg/dL 02/24/2024 12:49 AM [facility] Creatinine 0.68(L) 0.70 - 1.20 mg/dL 02/24/2024 12:49 AM [facility] Sodium 143 135 - 145 mMol/L 02/24/2024 12:49 AM [facility] Potassium 3.6 3.5 - 5.0 mMol/L 02/24/2024 12:49 AM [facility] Chloride 107 98 - 107 mMol/L 02/24/2024 12:49 AM [facility] Carbon Dioxide 24 22 - 31 mMol/L 02/24/2024 12:49 AM [facility] Anion Gap 12 5 - 15 mMol/L 02/24/2024 12:49 AM [facility] Calcium 8.6 8.5 - 10.5 mg/dL 02/24/2024 12:49 AM [facility] Est Glomerular Filtration Rate - Female 98 mL/min/1. 73 m?? 02/24/2024 12:49 AM [facility] Comment: This patient's estimated GFR was [...] Raymond MD CHEMISTRY ORDERABLES Performing Organization Address [facility]/[place] Co de Phone Number [facility] [place] [address] * Magnesium (02/24/2024 12:07 AM EST) Magnesium 0.86 0.69 - 1.07 mMol/L 02/24/2024 12:49 AM EST [facility] Blood VENOUS BLOOD SPECIMEN / Unknown Venipuncture / Unknown 02/24/2024 12:07 AM EST 02/24/2024 12:19 AM EST Emily Raymond MD CHEMISTRY ORDERABLES Performing Organization Address [facility] Phone Number [facility] [place] [address] * EKG 12 Lead (02/23/2024 10:18 PM EST) Ventricular rate 105 BPM MUSE SYSTEM Atrial Rate 105 BPM MUSE SYSTEM P-R Interval 156 ms MUSE SYSTEM QRS Duration 140 ms MUSE SYSTEM Q-T Interval 382 ms MUSE SYSTEM QTC Calculated (Bezet) 504 ms MUSE SYSTEM Calculated P Schoolcraft 51 degrees MUSE SYSTEM Calculated R School[place] 88 degrees MUSE SYSTEM Calculated T Schoolcraft 36 degrees MUSE SYSTEM INTERPRETATION Sinus tachycardia Right bundle branch block Abnormal ECG When compared with ECG of 18-FEB-2024 01:39, Criteria for Septal infarct are no longer Present I personally reviewed the tracing and edited the fellows interpretation Confirmed by fellow MD Domi, Max ([id number]) on 02/24/2024 12:23:51 PM Confirmed by Blayne Fermin MD ([id number]) on 02/24/2024 4:13:23 PM MUSE SYSTEM 02/23/2024 10:1 8 PM EST 02/24/2024 4:13 PM EST Emily Raymond MD ECG ORDERABLES MUSE SYSTEM * XR Chest One View (02/23/2024 3:03 PM EST) WORKSTATION ID [id number] RAD Anatomical Region Laterality Modality Chest N/A [...] who have questions please contact the health floor care technician that requested your imaging first. ? Narrative 02/23/2024 4:50 PM EST EXAMINATION: XR [...] patients who have questions please contactthe health floor care technician that requested your imaging first. Emily Raymond MD IMG DX ORDERABLES * Potassium (02/23/2024 7:37 AM EST) Potassium 3.7 3.5 - 5.0 mMol/L 02/23/2024 8:25 AM EST [facility] Blood VENOUS BLOOD SPECIMEN / Unknown Venipuncture / Unknown 02/23/2024 7:37 AM EST 02/23/2024 7:56 AM EST Emily Raymond MD CHEMISTRY ORDERABLES [facility] [place] [address] * ECHO LMTD W/O CONTRAST W LMTD SPEC DOPP COLOR DOPP (02/22/2024 3:02 PM EST) Anatomical Region Laterality Modality Cardiac Other 02/22/2024 1:18 PM EST Narrative 02/22/2024 4:40 PM EST [address] [place] [id number] ? Echocardiogram Report Name: JT GRAYSON ?Study Date: 02/22/2024 01:18 PMBP: 112/55 mmHg : 1960 ? Height: 160 cm ? Account: [id number] Age: 63 yrs ? Weight: 57 kg Gender: Female ?BSA: 1.6 m2 Ordering Physician: EMILY RAYMOND Referring Physician: UNKNOWN Performed By: Stevo Garcia RDCS Reason For Study: postprocedural hypotension Exam Location: [facility]. Interpretation Summary -Left ventricular systolic function is normal. Left ventricular ejection fraction is estimated visually at 60%. There are no segmental wall motion abnormalities. -Right ventricular systolic function is normal. -No significant valve disease. -No pericardial effusion. -Inferior vena cava is collapsible. -Compared with the previous echo performed on 02/05/24, there is no significant change. Procedure Limited - 21746. Doppler - 66040. Color Doppler - 61542. Satisfactory quality. Left Ventricle Left ventricle is [...] Note Main Mcclain MD - 02/22/2024 [address] [place] [address] Echocardiogram Report Name: JT GRAYSON Study Date: :18 PMBP: 112/55 mmHg : 1960 Height: 160 cm Account: [id number] Age: 63 yrs Weight: 57 kg Gender: Female BSA: 1.6 m2 Ordering Physician: EMILY RAYMOND Referring Physician: UNKNOWN Performed By: Stevo Garcia RDCS Reason For Study: postprocedural hypotension Exam Location: [facility]. Interpretation Summary -Left ventricular systolic function is normal. Left ventricular ejectionfraction is estimated visually at 60%. There are no segmental wall motionabnormalities. -Right ventricular systolic function is normal. -No significant valve disease. -No pericardial effusion. -Inferior vena cava is collapsible. -Compared with the previous echo performed on 02/05/24, there is nosignificant change. Procedure Limited - 04826. Doppler - 08358. Color Doppler - 56257. Satisfactoryquality. Left Ventricle Left ventricle is of [...] 30 - 150 mcg/dL 02/22/2024 11:18 AM EST [facility] TIBC 186(L) 250 - 450 mcg/dL 02/22/2024 11:18 AM EST [facility] Iron Saturation 13(L) 20 - 50 % 11:18 AM EST [facility] Blood VENOUS BLOOD SPECIMEN / Unknown Venipuncture / Unknown 02/22/2024 10:16 AM EST 02/22/2024 10:37 AM EST Emily Raymond MD CHEMISTRY ORDERABLES [facility] [place] [address] * XR Chest One View (02/22/2024 5:10 AM EST) WORKSTATION ID [id number] RAD Anatomical Region Laterality Modality Chest N/A Digital Radiogra phy Impressions 02/22/2024 6:02 AM EST 1. ??Unchanged moderate left effusion. 2. ??Patchy right basilar opacities, atelectasis versus pneumonia. 3. ??Support devices as detailed. 4. ??No pneumothorax. I have personally reviewed the image(s) and the resident's interpretation and agree with the findings, Bing Ashraf MD at 02/22/2024 6:02 AM Thank you for letting us participate in the care of this patient. ??If you are a health care provider and have any questions regarding this report, please contact the number below. ??For patients who have questions please contact the health floor care technician that requested your imaging first. ? Electronically signed by: Bing Ashraf MD, [facility] ([phone]), at 02/22/2024 6:02 AM Narrative 02/22/2024 6:02 AM EST EXAMINATION: XR CHEST ONE VIEW CLINICAL HISTORY: extubated 02/19; f/u HAP and atelectasis, pulmonary edema TECHNIQUE: 1 view of the chest COMPARISON: Chest radiograph 02/20/2024 FINDINGS: Support devices: * ??Left IJ venous catheter tip projects over the central SVC. * ??Enteric tube courses below the diaphragm, tip excluded from [id number]. * ??Left apically directed thoracostomy tube, unchanged position. Moderate left effusion, unchanged. No right effusion. No pneumothorax. Patchy right basilar opacities. Stable cardiomediastinal contours. No interval osseous change. Procedure Note Bing Ashraf MD - 02/22/2024 EXAMINATION: XR CHEST ONE VIEW CLINICAL HISTORY: extubated 02/19; f/u HAP and atelectasis, pulmonaryedema TECHNIQUE: 1 view of the chest COMPARISON: Chest radiograph 02/20/2024 FINDINGS: Support devices: * Left IJ venous catheter tip projects over the central SVC. * Enteric tube courses below the diaphragm, tip excluded [id number]. * Left apically directed thoracostomy tube, unchanged position. Moderate left effusion, unchanged. No right effusion. No pneumothorax.Patchy right basilar opacities. Stable cardiomediastinal contours. No intervalosseous change. IMPRESSION 1. Unchanged moderate left effusion. 2. Patchy right basilar opacities, atelectasis versus pneumonia. 3. Support devices as detailed. 4. No pneumothorax. I have personally reviewed the image(s) and the resident's interpretationand agree with the findings, Bing Ashraf MD at 02/22/2024 6:02 AM Thank you for letting us participate in the care of this patient. If youare a health care provider and have any questions regarding this report,please contact the number below. For patients who have questions please contactthe health floor care technician that requested your imaging first. Electronically signed by: Bing Ashraf MD, [facility]([phone]), at 02/22/2024 6:02 AM Emily Raymond MD IMG DX ORDERABLES * (ABNORMAL) CBC (with Diff) (02/22/2024 12:20 AM EST) White Blood Cell 7.28 4.00 - 9.50 x10(3)/mc L 02/22/2024 12:49 AM [facility] Red Blood Cell 2.60(L) 4.00 - 5.21 x10(6)/mc L 02/22/2024 12:49 AM [facility] Hemoglobin 8.1(L) 11.7 - 15.5 g/dL 02/22/2024 12:49 AM [facility] Hematocrit 24.6(L) 35.7 - 45.8 % 02/22/2024 12:49 AM [facility] Mean Cell Volume 94.6(H) 82.6 - 94.4 fL 02/22/2024 12:49 AM [facility] Mean Cell Hemoglobin 31.2 27.1 - 32.0 pg 02/22/2024 12:49 AM [facility] Mean Cell Hemoglobin Concentration 32.9 31.7 - 35.0 g/dL 02/22/2024 12:49 AM [facility] Platelet 271 145 - 357 x10(3)/mc L 02/22/2024 12:49 AM [facility] Mean Platelet Volume 8.7 7.6 - 12.9 fL 02/22/2024 12:49 AM [facility] RDW Standard Deviation 46.0 37.0 - 46.0 fL 02/22/2024 12:49 AM [facility] RDW coefficient of variation 13.3 11.5 - 14.1 % 02/22/2024 12:49 AM [facility] NRBC% auto 0.0 % 02/22/2024 12:49 AM [facility] NRBC Absolute <0.01 <0.01 x10(3)/mc L 02/22/2024 12:49 AM [facility] Neutrophil % 50.4 % 02/22/2024 12:49 AM [facility] Neutrophil Absolute (ANC) - Automated 3.67 1.70 - 6.10 x10(3)/mc L 02/22/2024 12:49 AM [facility] Lymph % 33.7 % 02/22/2024 12:49 AM [facility] Lymph Absolute 2.45 0.90 - 3.20 x10(3)/mc L 02/22/2024 12:49 AM [facility] Monocyte % 10.0 % 02/22/2024 12:49 AM [facility] Monocyte Absolute 0.73 0.30 - 0.90 x10(3)/mc L 02/22/2024 12:49 AM [facility] Eos % 4.1 % 02/22/2024 12:49 AM [facility] Eos Absolute 0.30 0.00 - 0.40 x10(3)/mc L 02/22/2024 12:49 AM [facility] Basophil % 0.4 % 02/22/2024 12:49 AM [facility] Baso Absolute <0.04 0.00 - 0.10 x10(3)/mc L 02/22/2024 12:49 AM EST [facility] Immature Gran % 1.4 % 12:49 AM [facility] Immature Gran Absolute 0.10(H) 0.00 - 0.04 x10(3)/mc L 02/22/2024 12:49 AM [facility] Blood VENOUS BLOOD SPECIMEN / Unknown Venipuncture / Unknown 02/22/2024 12:20 AM EST 02/22/2024 12:40 AM EST Emily Raymond MD HEMATOLOGY ORDERABLE S Performing Organization Address City/State/[place] Co de Phone Number [facility] [place] [address] * (ABNORMAL) Basic Metabolic Panel (02/22/2024 12:20 AM EST) Glucose 124 65 - 199 mg/dL 02/22/2024 1:16 AM [facility] Comment:Glucose Concentratio n >=200 mg/dL plus symptoms is consistent with Diabetes Mellitus. Blood Urea Nitrogen 6(L) 8 - 18 mg/dL 02/22/2024 1:16 AM [facility] Creatinine 0.58(L) 0.70 - 1.20 mg/dL 02/22/2024 1:16 AM [facility] Sodium 139 135 - 145 mMol/L 02/22/2024 1:16 AM [facility] Potassium 3.3(L) 3.5 - 5.0 mMol/L 02/22/2024 1:16 AM [facility] Chloride 104 98 - 107 mMol/L 02/22/2024 1:16 AM [facility] Carbon Dioxide 26 22 - 31 mMol/L 02/22/2024 1:16 AM [facility] Anion Gap 9 5 - 15 mMol/L 02/22/2024 1:16 AM [facility] Calcium 8.2(L) 8.5 - 10.5 mg/dL 02/22/2024 1:16 AM EST [facility] Est Glomerular Filtration Rate - Female 102 mL/min/1. 73 m?? 02/22/2024 1:16 AM EST [facility] Comment: This patient's estimated GFR was [...] SPECIMEN / Unknown Venipuncture / Unknown 02/22/2024 12:20 AM EST 02/22/2024 12:40 AM EST Emily Raymond MD CHEMISTRY ORDERABLES [facility] [place] [address] * Phosphorus (02/22/2024 12:20 AM EST) Phosphorus 3.9 2.5 - 4.5 mg/dL 02/22/2024 1:16 AM EST [facility] Blood VENOUS BLOOD SPECIMEN / Unknown Venipuncture / Unknown 02/22/2024 12:20 AM EST 02/22/2024 12:40 AM EST Emily Raymond MD CHEMISTRY ORDERABLES [facility] [place] [address] * Magnesium (02/22/2024 12:20 AM EST) Magnesium 0.85 0.69 - 1.07 mMol/L 02/22/2024 1:16 AM EST [facility] Blood VENOUS BLOOD SPECIMEN / Unknown Venipuncture / Unknown 02/22/2024 12:20 AM EST 02/22/2024 12:40 AM EST Emily Raymond MD CHEMISTRY ORDERABLES [facility] [place] [address] * (ABNORMAL) CBC (with Diff) (02/21/2024 1:24 AM EST) White Blood Cell 6.95 4.00 - 9.50 x10(3)/mc L 02/21/2024 1:44 AM [facility] Red Blood Cell 2.64(L) 4.00 - 5.21 x10(6)/mc L 02/21/2024 1:44 AM [facility] Hemoglobin 8.2(L) 11.7 - 15.5 g/dL 02/21/2024 1:44 AM [facility] Hematocrit 24.8(L) 35.7 - 45.8 % 02/21/2024 1:44 AM [facility] Mean Cell Volume 93.9 82.6 - 94.4 fL 02/21/2024 1:44 AM [facility] Mean Cell Hemoglobin 31.1 27.1 - 32.0 pg 02/21/2024 1:44 AM [facility] Mean Cell Hemoglobin Concentration 33.1 31.7 - 35.0 g/dL 02/21/2024 1:44 AM [facility] Platelet 238 145 - 357 x10(3)/mc L 02/21/2024 1:44 AM [facility] Mean Platelet Volume 8.6 7.6 - 12.9 fL 02/21/2024 1:44 AM [facility] RDW Standard Deviation 46.5(H) 37.0 - 46.0 fL 02/21/2024 1:44 AM [facility] RDW coefficient of variation 13.4 11.5 - 14.1 % 02/21/2024 1:44 AM [facility] NRBC% auto 0.0 % 02/21/2024 1:44 AM [facility] NRBC Absolute <0.01 <0.01 x10(3)/mc L 02/21/2024 1:44 AM [facility] Neutrophil % 57.1 % 02/21/2024 1:44 AM [facility] Neutrophil Absolute (ANC) - Automated 3.97 1.70 - 6.10 x10(3)/mc L 02/21/2024 1:44 AM [facility] Lymph % 30.8 % 02/21/2024 1:44 AM [facility] Lymph Absolute 2.14 0.90 - 3.20 x10(3)/mc L 02/21/2024 1:44 AM [facility] Monocyte % 8.5 % 02/21/2024 1:44 AM [facility] Monocyte Absolute 0.59 0.30 - 0.90 x10(3)/mc L 02/21/2024 1:44 AM [facility] Eos % 2.6 % 02/21/2024 1:44 AM [facility] Eos Absolute 0.18 0.00 - 0.40 x10(3)/mc L 02/21/2024 1:44 AM [facility] Basophil % 0.4 % 02/21/2024 1:44 AM [facility] Baso Absolute <0.04 0.00 - 0.10 x10(3)/mc L 02/21/2024 1:44 AM [facility] Immature Gran % 0.6 % 1:44 AM [facility] Immature Gran Absolute 0.04 0.00 - 0.04 x10(3)/mc L 02/21/2024 1:44 AM [facility] Blood VENOUS BLOOD SPECIMEN / Unknown Venipuncture / Unknown 02/21/2024 1:24 AM EST 02/21/2024 1:31 AM EST Emily Raymond MD HEMATOLOGY ORDERABLE S [facility] [place] [address] * (ABNORMAL) Basic Metabolic Panel (02/21/2024 1:24 AM EST) Glucose 82 65 - 199 mg/dL 02/21/2024 2:04 AM [facility] Comment:Glucose Concentratio n >=200 mg/dL plus symptoms is consistent with Diabetes Mellitus. Blood Urea Nitrogen 6(L) 8 - 18 mg/dL 02/21/2024 2:04 AM [facility] Creatinine 0.57(L) 0.70 - 1.20 mg/dL 02/21/2024 2:04 AM [facility] Sodium 141 135 - 145 mMol/L 02/21/2024 2:04 AM [facility] Potassium 3.5 3.5 - 5.0 mMol/L 02/21/2024 2:04 AM [facility] Chloride 105 98 - 107 mMol/L 02/21/2024 2:04 AM [facility] Carbon Dioxide 26 22 - 31 mMol/L 02/21/2024 2:04 AM [facility] Anion Gap 10 5 - 15 mMol/L 02/21/2024 2:04 AM [facility] Calcium 8.1(L) 8.5 - 10.5 mg/dL 02/21/2024 2:04 AM [facility] Est Glomerular Filtration Rate - Female 102 mL/min/1. 73 m?? 02/21/2024 2:04 AM [facility] Comment: This patient's estimated GFR was [...] BLOOD SPECIMEN / Unknown Venipuncture / Unknown 02/21/2024 1:24 AM EST 02/21/2024 1:31 AM EST Emily Raymond MD CHEMISTRY ORDERABLES [facility] [place] [address] * Phosphorus (02/21/2024 1:24 AM EST) Phosphorus 3.3 2.5 - 4.5 mg/dL 02/21/2024 2:04 AM EST [facility] Blood VENOUS BLOOD SPECIMEN / Unknown Venipuncture / Unknown 02/21/2024 1:24 AM EST 02/21/2024 1:31 AM EST Emily Raymond MD CHEMISTRY ORDERABLES Performing Organization Address City/[facility]/[place] Co de Phone Number [facility] [place] [address] * Magnesium (02/21/2024 1:24 AM EST) Magnesium 0.85 0.69 - 1.07 mMol/L 02/21/2024 2:04 AM EST [facility] Blood VENOUS BLOOD SPECIMEN / Unknown Venipuncture / Unknown 02/21/2024 1:24 AM EST 02/21/2024 1:31 AM EST Emily Raymond MD CHEMISTRY ORDERABLES Performing Organization Address City/[facility]/[place] Co de Phone Number [facility] [place] [address] * Potassium (02/20/2024 6:40 PM EST) Potassium 3.7 3.5 - 5.0 mMol/L 02/20/2024 8:00 PM EST [facility] Blood VENOUS BLOOD SPECIMEN / Unknown Central/PICC Line / Unknown 02/20/2024 6:40 PM EST 02/20/2024 6:50 PM EST Emily Raymond MD CHEMISTRY ORDERABLES Performing Organization Address [facility]/[place] [address] * Potassium (02/20/2024 10:56 AM EST) Potassium 3.5 3.5 - 5.0 mMol/L 02/20/2024 11:57 AM EST [facility] Blood VENOUS BLOOD SPECIMEN / Unknown Venipuncture / Unknown 02/20/2024 10:56 AM EST 02/20/2024 11:10 AM EST Emily Raymond MD CHEMISTRY ORDERABLES Performing Organization Address [facility] de Phone Number [facility] [place] [address] * XR Chest One View (02/20/2024 5:04 AM EST) WORKSTATION ID [id number] RAD Anatomical Region Laterality Modality Chest N/A Digital Radiogra phy Impressions 02/20/2024 6:10 AM EST 1. ??Unchanged left lower lobe opacity concerning for any combination of small effusion and atelectasis or pneumonia. 2. ??Possible trace left apical pneumothorax. Thank you for letting us participate in the care of this patient. ??If you are a health care provider and have any questions regarding this report, please contact the number below. ??For patients who have questions please contact the health floor care technician that requested your imaging first. ? Electronically signed by: Clark Johnson MD, [facility] ([phone]), at 02/20/2024 6:10 AM Narrative 02/20/2024 6:10 AM EST EXAMINATION: XR CHEST ONE VIEW CLINICAL HISTORY: f/u atelectasis, ?HAP TECHNIQUE: 1 view of the chest , single image COMPARISON: Chest radiograph 02/18/2024 FINDINGS: Endotracheal tube tip projects over the mid trachea. Left jugular central venous catheter tip projects over the lower SVC. Epidural catheter projects over the mid to lower thoracic spine. Enteric tube projects below the diaphragm, tip not included the [id number] but side port projecting over the stomach. Unchanged position of left-sided chest tube projecting over the lateral left hemithorax. Surgical clips project over the right axillary region. Skin kim along the left chest wall. Unchanged patchy and hazy left lung base opacities obscuring the left hemidiaphragm. Decreased pulmonary vascular congestion compared to prior study. Possible trace left apical pneumothorax but not definitive. No right-sided pneumothorax. No right-sided effusion. Persistent blunting of the left costophrenic angle suggesting trace left effusion. Unchanged cardiomegaly. The right hilum is normal. The left hilum is partially obscured by perihilar opacities. Unchanged resorption of the distal right clavicle. Procedure Note Clark Johnson MD - 02/20/2024 EXAMINATION: XR CHEST ONE VIEW CLINICAL HISTORY: f/u atelectasis, ?HAP TECHNIQUE: 1 view of the chest , single image COMPARISON: Chest radiograph 02/18/2024 FINDINGS: Endotracheal tube tip projects over the mid trachea. Left jugular central venous catheter tip projects over the lower SVC. Epidural catheter projects over the mid to lower thoracic spine. Enteric tube projects below the diaphragm, tip not included [id number] but side port projecting over the stomach. Unchanged position of left-sided chest tube projecting over the lateralleft hemithorax. Surgical clips project over the right axillary region. Skin kim along the left chest wall. Unchanged patchy and hazy left lung base opacities obscuring the left hemidiaphragm. Decreased pulmonary vascular congestion compared to priorstudy. Possible trace left apical pneumothorax but not definitive. Noright-sided pneumothorax. No right-sided effusion. Persistent blunting of the left costophrenic angle suggesting trace left effusion. Unchanged cardiomegaly.The right hilum is normal. The left hilum is partially obscured by perihilar opacities. Unchanged resorption of the distal right clavicle. IMPRESSION 1. Unchanged left lower lobe opacity concerning for any combination ofsmall effusion and atelectasis or pneumonia. 2. Possible trace left apical pneumothorax. Thank you for letting us participate in the care of this patient. If youare a health care provider and have any questions regarding this report,please contact the number below. For patients who have questions please contactthe health floor care technician that requested your imaging first. Electronically signed by: Clark Johnson MD, [facility]([phone]), at 02/20/2024 6:10 AM Emily Raymond MD IMG DX ORDERABLES * (ABNORMAL) CBC (with Diff) (02/20/2024 12:06 AM EST) White Blood Cell 9.76(H) 4.00 - 9.50 x10(3)/mc L 02/20/2024 12:26 AM [facility] Red Blood Cell 2.74(L) 4.00 - 5.21 x10(6)/mc L 02/20/2024 12:26 AM [facility] Hemoglobin 8.5(L) 11.7 - 15.5 g/dL 02/20/2024 12:26 AM [facility] Hematocrit 26.0(L) 35.7 - 45.8 % 02/20/2024 12:26 AM [facility] Mean Cell Volume 94.9(H) 82.6 - 94.4 fL 02/20/2024 12:26 AM [facility] Mean Cell Hemoglobin 31.0 27.1 - 32.0 pg 02/20/2024 12:26 AM [facility] Mean Cell Hemoglobin Concentration 32.7 31.7 - 35.0 g/dL 02/20/2024 12:26 AM [facility] Platelet 214 145 - 357 x10(3)/mc L 02/20/2024 12:26 AM [facility] Mean Platelet Volume 9.2 7.6 - 12.9 fL 02/20/2024 12:26 AM [facility] RDW Standard Deviation 46.6(H) 37.0 - 46.0 fL 02/20/2024 12:26 AM [facility] RDW coefficient of variation 13.6 11.5 - 14.1 % 02/20/2024 12:26 AM [facility] NRBC% auto 0.0 % 02/20/2024 12:26 AM [facility] NRBC Absolute <0.01 <0.01 x10(3)/mc L 02/20/2024 12:26 AM [facility] Neutrophil % 59.4 % 02/20/2024 12:26 AM [facility] Neutrophil Absolute (ANC) - Automated 5.79 1.70 - 6.10 x10(3)/mc L 02/20/2024 12:26 AM [facility] Lymph % 28.7 % 02/20/2024 12:26 AM [facility] Lymph Absolute 2.80 0.90 - 3.20 x10(3)/mc L 02/20/2024 12:26 AM [facility] Monocyte % 9.3 % 02/20/2024 12:26 AM [facility] Monocyte Absolute 0.91(H) 0.30 - 0.90 x10(3)/mc L 02/20/2024 12:26 AM [facility] Eos % 1.8 % 02/20/2024 12:26 AM [facility] Eos Absolute 0.18 0.00 - 0.40 x10(3)/mc L 02/20/2024 12:26 AM [facility] Basophil % 0.2 % 02/20/2024 12:26 AM EST [facility] Baso Absolute <0.04 0.00 - 0.10 x10(3)/mc L 02/20/2024 12:26 AM [facility] Immature Gran % 0.6 % 12:26 AM [facility] Immature Gran Absolute 0.06(H) 0.00 - 0.04 x10(3)/mc L 02/20/2024 12:26 AM [facility] Blood VENOUS BLOOD SPECIMEN / Unknown Venipuncture / Unknown 02/20/2024 12:06 AM EST 02/20/2024 12:21 AM EST Emily Raymond MD HEMATOLOGY ORDERABLE S Performing Organization Address City/State/[place] Co de Phone Number [facility] [place] [address] * (ABNORMAL) Basic Metabolic Panel (02/20/2024 12:06 AM EST) Glucose 117 65 - 199 mg/dL 02/20/2024 12:49 AM [facility] Comment:Glucose Concentratio n >=200 mg/dL plus symptoms is consistent with Diabetes Mellitus. Blood Urea Nitrogen 6(L) 8 - 18 mg/dL 02/20/2024 12:49 AM [facility] Creatinine 0.59(L) 0.70 - 1.20 mg/dL 02/20/2024 12:49 AM [facility] Sodium 141 135 - 145 mMol/L 02/20/2024 12:49 AM [facility] Potassium 3.6 3.5 - 5.0 mMol/L 02/20/2024 12:49 AM [facility] Chloride 106 98 - 107 mMol/L 02/20/2024 12:49 AM [facility] Carbon Dioxide 27 22 - 31 mMol/L 02/20/2024 12:49 AM [facility] Anion Gap 8 5 - 15 mMol/L 02/20/2024 12:49 AM EST [facility] Calcium 8.0(L) 8.5 - 10.5 mg/dL 02/20/2024 12:49 AM EST [facility] Est Glomerular Filtration Rate - Female 101 mL/min/1. 73 m?? 02/20/2024 12:49 AM EST [facility] Comment: This patient's estimated GFR was [...] BLOOD SPECIMEN / Unknown Venipuncture / Unknown 02/20/2024 12:06 AM EST 02/20/2024 12:21 AM EST Emily Raymond MD CHEMISTRY ORDERABLES [facility] [place] [address] * Phosphorus (02/20/2024 12:06 AM EST) Phosphorus 2.7 2.5 - 4.5 mg/dL 02/20/2024 12:49 AM EST [facility] Blood VENOUS BLOOD SPECIMEN / Unknown Venipuncture / Unknown 02/20/2024 12:06 AM EST 02/20/2024 12:21 AM EST Emily Raymond MD CHEMISTRY ORDERABLES [facility] [place] [address] * Magnesium (02/20/2024 12:06 AM EST) Magnesium 0.83 0.69 - 1.07 mMol/L 02/20/2024 12:49 AM EST [facility] Blood VENOUS BLOOD SPECIMEN / Unknown Venipuncture / Unknown 02/20/2024 12:06 AM EST 02/20/2024 12:21 AM EST Emily Raymond MD CHEMISTRY ORDERABLES Performing Organization Address City/[facility]/ZIP Co de Phone Number [facility] [place] [address] * POC, GLUCOSE (02/19/2024 8:00 AM EST) Glucometer, POC 120 65 - 199 mg/dL 02/19/2024 8:02 AM EST [facility] Comment:Supplemental ranges: <140 mg/dL before meals <180 mg/dL all other times of the day. Blood CAPILLARY BLOOD / Unknown 02/19/2024 8:00 AM EST 02/19/2024 8:02 AM EST Emily Raymond MD POINT OF CARE TEST O RDERABLES Performing Organization Address City/[facility]/ZIP Co de Phone Number [facility] [place] [address] * Phosphorus (02/19/2024 8:00 AM EST) Phosphorus 2.6 2.5 - 4.5 mg/dL 02/19/2024 9:16 AM EST [facility] Blood VENOUS BLOOD SPECIMEN / Unknown Venipuncture / Unknown 02/19/2024 8:00 AM EST 02/19/2024 8:17 AM EST Emily Raymond MD CHEMISTRY ORDERABLES [facility] [place] [address] * (ABNORMAL) Basic Metabolic Panel (02/19/2024 8:00 AM EST) Glucose 111 65 - 199 mg/dL 02/19/2024 9:16 AM [facility] Comment:Glucose Concentratio n >=200 mg/dL plus symptoms is consistent with Diabetes Mellitus. Blood Urea Nitrogen 5(L) 8 - 18 mg/dL 02/19/2024 9:16 AM [facility] Creatinine 0.54(L) 0.70 - 1.20 mg/dL 02/19/2024 9:16 AM [facility] Sodium 139 135 - 145 mMol/L 02/19/2024 9:16 AM [facility] Potassium 3.8 3.5 - 5.0 mMol/L 02/19/2024 9:16 AM [facility] Chloride 104 98 - 107 mMol/L 02/19/2024 9:16 AM [facility] Carbon Dioxide 28 22 - 31 mMol/L 02/19/2024 9:16 AM [facility] Anion Gap 7 5 - 15 mMol/L 02/19/2024 9:16 AM [facility] Calcium 7.8(L) 8.5 - 10.5 mg/dL 02/19/2024 9:16 AM [facility] Est Glomerular Filtration Rate - Female 104 mL/min/1. 73 m?? 02/19/2024 9:16 AM [facility] Comment: This patient's estimated GFR was [...] BLOOD SPECIMEN / Unknown Venipuncture / Unknown 02/19/2024 8:00 AM EST 02/19/2024 8:17 AM EST Emily Raymond MD CHEMISTRY ORDERABLES Performing Organization Address [facility]/[place] Co de Phone Number [facility] [place] [address] * POC, GLUCOSE (02/19/2024 4:00 AM EST) Glucometer, POC 150 65 - 199 mg/dL 02/19/2024 4:00 AM EST [facility] Comment:Supplemental ranges: <140 mg/dL before meals <180 mg/dL all other times of the day. Blood CAPILLARY BLOOD / Unknown 02/19/2024 4:00 AM EST 02/19/2024 4:00 AM EST Emily Raymond MD POINT OF CARE TEST O RDERABLES Performing Organization Address [facility]/[place] Co de Phone Number [facility] [place] [address] * POC, GLUCOSE (02/19/2024 12:03 AM EST) Glucometer, POC 130 65 - 199 mg/dL 02/19/2024 12:03 AM EST [facility] Comment:Supplemental ranges: <140 mg/dL before meals <180 mg/dL all other times of the day. Blood CAPILLARY BLOOD / Unknown 02/19/2024 12:03 AM EST 02/19/2024 12:03 AM EST Emily Raymond MD POINT OF CARE TEST Gissel CAMACHO Performing Organization Address [facility]/ZIP Co de Phone Number [facility] [place] [address] * (ABNORMAL) CBC (with Diff) (02/19/2024 12:03 AM EST) Pathologist [facility] White Blood Cell 11.99(H) 4.00 - 9.50 x10(3)/mc L 02/19/2024 12:25 AM EST [facility] Red Blood Cell 2.83(L) 4.00 - 5.21 x10(6)/mc L 02/19/2024 12:25 AM [facility] Hemoglobin 8.9(L) 11.7 - 15.5 g/dL 02/19/2024 12:25 AM [facility] Hematocrit 26.9(L) 35.7 - 45.8 % 02/19/2024 12:25 AM [facility] Mean Cell Volume 95.1(H) 82.6 - 94.4 fL 02/19/2024 12:25 AM [facility] Mean Cell Hemoglobin 31.4 27.1 - 32.0 pg 02/19/2024 12:25 AM [facility] Mean Cell Hemoglobin Concentration 33.1 31.7 - 35.0 g/dL 02/19/2024 12:25 AM [facility] Platelet 192 145 - 357 x10(3)/mc L 02/19/2024 12:25 AM [facility] Mean Platelet Volume 8.7 7.6 - 12.9 fL 02/19/2024 12:25 AM [facility] RDW Standard Deviation 48.6(H) 37.0 - 46.0 fL 02/19/2024 12:25 AM [facility] RDW coefficient of variation 13.9 11.5 - 14.1 % 02/19/2024 12:25 AM [facility] NRBC% auto 0.0 % 02/19/2024 12:25 AM [facility] NRBC Absolute <0.01 <0.01 x10(3)/mc L 02/19/2024 12:25 AM [facility] Neutrophil % 70.1 % 02/19/2024 12:25 AM [facility] Neutrophil Absolute (ANC) - Automated 8.42(H) 1.70 - 6.10 x10(3)/mc L 02/19/2024 12:25 AM [facility] Lymph % 21.9 % 02/19/2024 12:25 AM [facility] Lymph Absolute 2.62 0.90 - 3.20 x10(3)/mc L 02/19/2024 12:25 AM EST [facility] Monocyte % 6.3 % 02/19/2024 12:25 AM [facility] Monocyte Absolute 0.75 0.30 - 0.90 x10(3)/mc L 02/19/2024 12:25 AM [facility] Eos % 0.8 % 02/19/2024 12:25 AM [facility] Eos Absolute 0.09 0.00 - 0.40 x10(3)/mc L 02/19/2024 12:25 AM [facility] Basophil % 0.3 % 02/19/2024 12:25 AM [facility] Baso Absolute 0.04 0.00 - 0.10 x10(3)/mc L 02/19/2024 12:25 AM [facility] Immature Gran % 0.6 % 12:25 AM [facility] Immature Gran Absolute 0.07(H) 0.00 - 0.04 x10(3)/mc L 02/19/2024 12:25 AM [facility] Blood VENOUS BLOOD SPECIMEN / Unknown Venipuncture / Unknown 02/19/2024 12:03 AM EST 02/19/2024 12:18 AM EST Emily Raymond MD HEMATOLOGY ORDERABLE S [facility] [place] [address] * (ABNORMAL) Basic Metabolic Panel (02/19/2024 12:03 AM EST) Glucose 130 65 - 199 mg/dL 02/19/2024 12:46 AM [facility] Comment:Glucose Concentratio n >=200 mg/dL plus symptoms is consistent with Diabetes Mellitus. Blood Urea Nitrogen 6(L) 8 - 18 mg/dL 02/19/2024 12:46 AM [facility] Creatinine 0.59(L) 0.70 - 1.20 mg/dL 02/19/2024 12:46 AM EST [facility] Sodium 141 135 - 145 mMol/L 02/19/2024 12:46 AM [facility] Potassium 3.4(L) 3.5 - 5.0 mMol/L 02/19/2024 12:46 AM [facility] Chloride 107 98 - 107 mMol/L 02/19/2024 12:46 AM [facility] Carbon Dioxide 26 22 - 31 mMol/L 02/19/2024 12:46 AM [facility] Anion Gap 8 5 - 15 mMol/L 02/19/2024 12:46 AM [facility] Calcium 8.0(L) 8.5 - 10.5 mg/dL 02/19/2024 12:46 AM [facility] Est Glomerular Filtration Rate - Female 101 mL/min/1. 73 m?? 02/19/2024 12:46 AM [facility] Comment: This patient's estimated GFR was [...] BLOOD SPECIMEN / Unknown Venipuncture / Unknown 02/19/2024 12:03 AM EST 02/19/2024 12:18 AM EST Emily Raymond MD CHEMISTRY ORDERABLES [facility] [place] [address] * (ABNORMAL) Phosphorus (02/19/2024 12:03 AM EST) Phosphorus 2.3(L) 2.5 - 4.5 mg/dL 02/19/2024 12:46 AM EST [facility] Blood VENOUS BLOOD SPECIMEN / Unknown Venipuncture / Unknown 02/19/2024 12:03 AM EST 02/19/2024 12:18 AM EST Emily Raymond MD CHEMISTRY ORDERABLES Performing Organization Address City/[facility]/ZIP Co de Phone Number [facility] [place] [address] * Magnesium (02/19/2024 12:03 AM EST) Pathologist [facility] Magnesium 0.77 0.69 - 1.07 mMol/L 02/19/2024 12:46 AM EST [facility] Blood VENOUS BLOOD SPECIMEN / Unknown Venipuncture / Unknown 02/19/2024 12:03 AM EST 02/19/2024 12:18 AM EST Emily Raymond MD CHEMISTRY ORDERABLES Performing Organization Address City/[facility]/[place] Co de Phone Number [facility] [place] [address] * POC, GLUCOSE (02/18/2024 8:36 PM EST) [facility] Glucometer, POC 150 65 - 199 mg/dL 02/18/2024 8:36 PM EST [facility] Comment:Supplemental ranges: <140 mg/dL before meals <180 mg/dL all other times of the day. Blood CAPILLARY BLOOD / Unknown 02/18/2024 8:36 PM EST 02/18/2024 8:36 PM EST Emily Raymond MD POINT OF CARE TEST O RDERABLES Performing Organization Address City/[facility]/ZIP Co de Phone Number [facility] [place] [address] * XR Chest One View (02/18/2024 8:07 PM EST) [facility] Signature WORKSTATION ID [id number] RAD Anatomical Region Laterality Modality Chest N/A Digital Radiogra phy Impressions 02/19/2024 12:17 AM EST 1. ??New left IJ central venous catheter projects over the lower SVC. 2. ??Other support lines and tubes as above. 3. ??Small left basilar pleural fluid collection. 4. ??No large pneumothorax, sensitivity limited by supine positioning. 5. ??Persistent bilateral airspace opacities left greater than right. Thank you for letting us participate in the care of this patient. ??If you are a health care provider and have any questions regarding this report, please contact the number below. ??For patients who have questions please contact the health floor care technician that requested your imaging first. ? Electronically signed by: Luis Enrique Pena MD, [facility] ??([phone]), at 02/19/2024 12:17 AM Narrative 02/19/2024 12:17 AM EST EXAMINATION: XR CHEST ONE VIEW CLINICAL HISTORY: interval central line placement TECHNIQUE: 1 view of the chest COMPARISON: Chest x-ray performed earlier the same date FINDINGS: ET tube terminates approximately 4.4 cm above the rema. Enteric tube since below the diaphragm and included [id number]. New left IJ central venous catheter projects over the lower SVC. Left-sided chest tube with unchanged position. No pneumothorax, sensitivity limited by supine positioning. Blunted left costophrenic angle consistent with small left pleural fluid collection. Similar opacity in the left mid and lower lung. Ill-defined mild patchy opacities in the right mid lower lung also similar to prior. Unchanged cardiomediastinal silhouette. Lateral left rib fracture. Epidural catheter overlies the lower thoracic spine. Left-sided skin kim along lower left hemithorax. Procedure Note Luis Enrique Pena MD - 02/19/2024 EXAMINATION: XR CHEST ONE VIEW CLINICAL HISTORY: interval central line placement TECHNIQUE: 1 view of the chest COMPARISON: Chest x-ray performed earlier the same date FINDINGS: ET tube terminates approximately 4.4 cm above the rema. Enteric tubesince below the diaphragm and included [id number]. New left IJ centralvenous catheter projects over the lower SVC. Left-sided chest tube withunchanged position. No pneumothorax, sensitivity limited by supine positioning. Blunted left costophrenic angle consistent with small left pleural fluid collection.Similar opacity in the left mid and lower lung. Ill-defined mild patchy opacitiesin the right mid lower lung also similar to prior. Unchanged cardiomediastinal silhouette. Lateral left rib fracture. Epidural catheter overlies thelower thoracic spine. Left-sided skin kim along lower left hemithorax. IMPRESSION 1. New left IJ central venous catheter projects over the lower SVC. 2. Other support lines and tubes as above. 3. Small left basilar pleural fluid collection. 4. No large pneumothorax, sensitivity limited by supine positioning. 5. Persistent bilateral airspace opacities left greater than right. Thank you for letting us participate in the care of this patient. If youare a health care provider and have any questions regarding this report,please contact the number below. For patients who have questions please contactthe health floor care technician that requested your imaging first. Electronically signed by: Luis Enrique Pena MD, [facility]([phone]), at 02/19/2024 12:17 AM Emily Raymond MD IMG DX ORDERABLES * POC, GLUCOSE (02/18/2024 4:11 PM EST) [facility] Glucometer, POC 113 65 - 199 mg/dL 02/18/2024 4:11 PM EST [facility] Comment:Supplemental ranges: <140 mg/dL before meals <180 mg/dL all other times of the day. Blood CAPILLARY BLOOD / Unknown 02/18/2024 4:11 PM EST 02/18/2024 4:11 PM EST Emily Raymond MD POINT OF CARE TEST O RDERABLES [facility] [place] [address] * (ABNORMAL) CBC (with Diff) (02/18/2024 2:55 PM EST) White Blood Cell 9.95(H) 4.00 - 9.50 x10(3)/mc L 02/18/2024 3:14 PM [facility] Red Blood Cell 2.98(L) 4.00 - 5.21 x10(6)/mc L 02/18/2024 3:14 PM [facility] Hemoglobin 9.3(L) 11.7 - 15.5 g/dL 02/18/2024 3:14 PM [facility] Hematocrit 28.7(L) 35.7 - 45.8 % 02/18/2024 3:14 PM [facility] Mean Cell Volume 96.3(H) 82.6 - 94.4 fL 02/18/2024 3:14 PM [facility] Mean Cell Hemoglobin 31.2 27.1 - 32.0 pg 02/18/2024 3:14 PM [facility] Mean Cell Hemoglobin Concentration 32.4 31.7 - 35.0 g/dL 02/18/2024 3:14 PM [facility] Platelet 183 145 - 357 x10(3)/mc L 02/18/2024 3:14 PM [facility] Mean Platelet Volume 8.9 7.6 - 12.9 fL 02/18/2024 3:14 PM [facility] RDW Standard Deviation 49.0(H) 37.0 - 46.0 fL 02/18/2024 3:14 PM [facility] RDW coefficient of variation 13.9 11.5 - 14.1 % 02/18/2024 3:14 PM [facility] NRBC% auto 0.0 % 02/18/2024 3:14 PM [facility] NRBC Absolute <0.01 <0.01 x10(3)/mc L 02/18/2024 3:14 PM [facility] Neutrophil % 68.2 % 02/18/2024 3:14 PM [facility] Neutrophil Absolute (ANC) - Automated 6.78(H) 1.70 - 6.10 x10(3)/mc L 02/18/2024 3:14 PM [facility] Lymph % 23.8 % 02/18/2024 3:14 PM [facility] Lymph Absolute 2.37 0.90 - 3.20 x10(3)/mc L 02/18/2024 3:14 PM [facility] Monocyte % 7.1 % 02/18/2024 3:14 PM [facility] Monocyte Absolute 0.71 0.30 - 0.90 x10(3)/mc L 02/18/2024 3:14 PM [facility] Eos % 0.3 % 02/18/2024 3:14 PM [facility] Eos Absolute <0.04 0.00 - 0.40 x10(3)/mc L 02/18/2024 3:14 PM [facility] Basophil % 0.1 % 02/18/2024 3:14 PM [facility] Baso Absolute <0.04 0.00 - 0.10 x10(3)/mc L 02/18/2024 3:14 PM [facility] Immature Gran % 0.5 % 3:14 PM [facility] Immature Gran Absolute 0.05(H) 0.00 - 0.04 x10(3)/mc L 02/18/2024 3:14 PM [facility] Blood VENOUS BLOOD SPECIMEN / Unknown Venipuncture / Unknown 02/18/2024 2:55 PM EST 02/18/2024 3:06 PM EST Emily Raymond MD HEMATOLOGY ORDERABLE S [facility] [place] [address] * (ABNORMAL) Basic Metabolic Panel (02/18/2024 2:55 PM EST) Glucose 111 65 - 199 mg/dL 02/18/2024 3:49 PM EST [facility] Comment:Glucose Concentratio n >=200 mg/dL plus symptoms is consistent with Diabetes Mellitus. Blood Urea Nitrogen 6(L) 8 - 18 mg/dL 02/18/2024 3:49 PM EST [facility] Creatinine 0.66(L) 0.70 - 1.20 mg/dL 02/18/2024 3:49 PM EST [facility] Sodium 143 135 - 145 mMol/L 02/18/2024 3:49 PM EST [facility] Potassium 3.4(L) 3.5 - 5.0 mMol/L 02/18/2024 3:49 PM EST [facility] Chloride 107 98 - 107 mMol/L 02/18/2024 3:49 PM EST [facility] Carbon Dioxide 29 22 - 31 mMol/L 02/18/2024 3:49 PM EST [facility] Anion Gap 7 5 - 15 mMol/L 02/18/2024 3:49 PM EST [facility] Calcium 7.9(L) 8.5 - 10.5 mg/dL 02/18/2024 3:49 PM EST [facility] Est Glomerular Filtration Rate - Female 99 mL/min/1. 73 m?? 02/18/2024 3:49 PM EST [facility] Comment: This patient's estimated GFR was [...] SPECIMEN / Unknown Venipuncture / Unknown 02/18/2024 2:55 PM EST 02/18/2024 3:06 PM EST Emily Raymond MD CHEMISTRY ORDERABLES [facility] [place] [address] * (ABNORMAL) Respiratory Culture, Quantitative (02/18/2024 2:46 PM EST) Quantitative Bacterial Culture 4,000 CFU/mL Citrobacter freundii complex(A) VITEK 2 METHOD 02/20/2024 9:37 AM EST [facility] Gram Stain Cytocentrifuge Gram Stain performed 02/20/2024 9:37 AM EST [facility] Gram Stain Neutrophils seen 02/20/20 9:37 AM EST [facility] Gram Stain No microorganisms seen 02/20/2024 9:37 AM EST [facility] Bronchial Alveolar Lavage STRUCTURE OF [...] Raymond MD MICROBIOLOGY - GENER AL ORDERABLES [facility] [place] [address] * (ABNORMAL) Blood Gas, Venous POC (02/18/2024 1:46 PM EST) pH, Venous 7.33 7.32 - 7.42 02/18/2024 1:47 PM EST [facility] PCO2, Venous 52 38 - 58 mmHg 02/18/2024 1:47 PM EST [facility] PO2, Venous 27 16 - 65 mmHg 02/18/2024 1:47 PM [facility] Bicarbonate, Venous 27.2 22 - 31 mmol/L 02/18/2024 1:47 PM EST [facility] Base Excess, Venous 1.3(L) 1.9 - 4.5 mmol/L 02/18/2024 1:47 PM [facility] Hemoglobin, Venous 9.9(L) 11.7 - 15.5 g/dL 02/18/2024 1:47 PM [facility] Oxyhemoglobin, Venous 45.0 % 02/18/2024 1:47 PM [facility] Carboxyhemoglobin , Venous 1.2 % 02/18/2024 1:47 PM [facility] Comment: Nonsmokers: 0.5-1.5% COHB ?? Smokers: Variable ??but usually less than 10% ?? Toxic: 20-30% COHB ?? Lethal: Greater than 60% COHB Methemoglobin, Venous 0.3 <=1.5 % 02/18/2024 1:47 PM EST [facility] Sodium, Venous 138 135 - 145 mmol/L 02/18/2024 1:47 PM EST [facility] Potassium, Venous 3.2(L) 3.5 - 5.0 mmol/L 02/18/2024 1:47 PM EST [facility] Chloride, Venous 106 98 - 107 mmol/L 02/18/2024 1:47 PM EST [facility] Glucose, Venous 109 65 - 199 mg/dL 02/18/2024 1:47 PM [facility] Comment:Glucose Concentratio n >=200 mg/dL plus symptoms is consistent with Diabetes Mellitus. Lactate, Venous 2.4(H) 0.5 - 2.2 mmol/L 02/18/2024 1:47 PM EST [facility] Ionized Calcium, Venous 1.10(L) 1.15 - 1.33 mmol/L 02/18/2024 1:47 PM [facility] Blood VENOUS BLOOD SPECIMEN / Unknown 02/18/2024 1:46 PM EST 02/18/2024 1:47 PM EST Emily Raymond MD POINT OF CARE TEST Gissel CAMACHO Performing Organization Address City/[facility]/ZIP Co de Phone Number [facility] [place] [address] * POC, GLUCOSE (02/18/2024 12:14 PM EST) Glucometer, POC 120 65 - 199 mg/dL 02/18/2024 12:14 PM EST [facility] Comment:Supplemental ranges: <140 mg/dL before meals <180 mg/dL all other times of the day. Blood CAPILLARY BLOOD / Unknown 02/18/2024 12:14 PM EST 02/18/2024 12:15 PM EST Emily Raymond MD POINT OF CARE TEST Gissel CAMACHO Performing Organization Address City/[facility]/ZIP Co de Phone Number [facility] [place] [address] * (ABNORMAL) Urinalysis Microscopic Reflex to Culture (02/18/2024 10:13 AM EST) RBC, Urine <1 0 - 4 /HPF 02/18/2024 11:32 AM [facility] WBC, Urine 1 0 - 5 /HPF 02/18/2024 11:32 AM [facility] Squamous Epithelial Cells, Urine 1 <5 /HPF 02/18/2024 11:32 AM [facility] Transitional Epithelial Cells, Urine <1 <2 /HPF 02/18/2024 11:32 AM [facility] Hyaline Casts, Urine 02/18/2024 11:32 AM [facility] Comment 02/18/2024 11:32 AM [facility] Comment:Interpret results wi th caution, microscopic results are from a suboptimal specimen. Bacteria, Urine Occasiona l(A) None /HPF 02/18/2024 11:32 AM [facility] CULTURE ADDED? 02/18/2024 11:32 AM [facility] Urine URINE SPECIMEN OBTAINED VIA INDWELLING URINARY CATHETER / Unknown Non Blood Collection / Unknown 02/18/2024 10:13 AM EST 02/18/2024 10:37 AM EST Emily Raymond MD URINE ORDERABLES Performing Organization Address City/[facility]/ZIP Co de Phone Number [facility] [place] [address] * Urinalysis Microscopic with Reflex to Culture (02/18/2024 10:13 AM EST) CULTURE ADDED? 02/18/2024 11:32 AM [facility] Urine URINE SPECIMEN OBTAINED VIA INDWELLING URINARY CATHETER / Unknown Non Blood Collection / Unknown 02/18/2024 10:13 AM EST 02/18/2024 10:37 AM EST Emily Raymond MD URINE ORDERABLES [facility] [place] [address] * (ABNORMAL) Urinalysis with reflex Culture (02/18/2024 10:13 AM EST) Glucose, Urine Dipstick Negative Negative 02/18/2024 11:32 AM [facility] Protein, Urine Dipstick Negative Negative 02/18/2024 11:32 AM [facility] Bilirubin, Urine Dipstick Negative Negative 02/18/2024 11:32 AM [facility] Comment:Clinical correlation required for positive Urine Bilirubin results as false positive may occur with some drugs and drug related products. If a false positive is suspected a serum total bilirubin should be considered if clinically indicated. Urobilinogen, Urine Dipstick Normal Normal, 0.2 mg/dL, 1.0 mg/dL 02/18/2024 11:32 AM [facility] pH, Urine (dipstick) 6.0 5.0 - 8.0 02/18/2024 11:32 AM [facility] Blood, Urine Dipstick Trace(A) Negative 02/18/2024 11:32 AM [facility] Ketone, Urine Dipstick Negative Negative 02/18/2024 11:32 AM [facility] Nitrite, Urine Dipstick Negative Negative 02/18/2024 11:32 AM [facility] Leukocytes, Urine Dipstick Small(A) Negative 02/18/2024 11:32 AM [facility] Specific [place] Urine Automated <=1.005(L) 1.005 - 1.030 02/18/2024 11:32 AM [facility] Appearance, Urine Dipstick Clear Clear 02/18/2024 11:32 AM [facility] Color, Urine Dipstick Yellow Yellow, Dark Yellow 02/18/2024 11:32 AM [facility] CULTURE ADDED? 02/18/2024 11:32 AM [facility] Urine URINE SPECIMEN OBTAINED VIA INDWELLING URINARY CATHETER / Unknown Non Blood Collection / Unknown 02/18/2024 10:13 AM EST 02/18/2024 10:37 AM EST Emily Raymond MD URINE ORDERABLES [facility] [place] [address] * Blood culture (02/18/2024 9:51 AM EST) Blood Culture No growth at 120 hours 02/23/2024 12:01 PM EST [facility] Blood VENOUS BLOOD SPECIMEN / Unknown Venipuncture / Unknown 02/18/2024 9:51 AM EST 02/18/2024 10:21 AM EST Emily Raymond MD MICROBIOLOGY - BLOOD ORDERABLES Performing Organization Address City/[facility]/ZIP Co de Phone Number [facility] [place] [address] * Blood culture (02/18/2024 9:51 AM EST) Blood Culture No growth at 120 hours 02/23/2024 12:01 PM EST [facility] Blood VENOUS BLOOD SPECIMEN / Unknown Venipuncture / Unknown 02/18/2024 9:51 AM EST 02/18/2024 10:20 AM EST Emily Raymond MD MICROBIOLOGY - BLOOD ORDERABLES Performing Organization Address City/[facility]/ZIP Co de Phone Number [facility] [place] [address] * (ABNORMAL) Blood Gas, Venous POC (02/18/2024 9:43 AM EST) pH, Venous 7.38 7.32 - 7.42 02/18/2024 9:44 AM EST [facility] PCO2, Venous 49 38 - 58 mmHg 02/18/2024 9:44 AM EST [facility] PO2, Venous 28 16 - 65 mmHg 02/18/2024 9:44 AM EST [facility] Bicarbonate, Venous 28.4 22 - 31 mmol/L 02/18/2024 9:44 AM EST [facility] Base Excess, Venous 3.3 1.9 - 4.5 mmol/L 02/18/2024 9:44 AM [facility] Hemoglobin, Venous 10.4(L) 11.7 - 15.5 g/dL 02/18/2024 9:44 AM [facility] Oxyhemoglobin, Venous 51.6 % 02/18/2024 9:44 AM [facility] Carboxyhemoglobin , Venous 1.0 % 02/18/2024 9:44 AM [facility] Comment: Nonsmokers: 0.5-1.5% COHB ?? Smokers: Variable ??but usually less than 10% ?? Toxic: 20-30% COHB ?? Lethal: Greater than 60% COHB Methemoglobin, Venous 0.3 <=1.5 % 02/18/2024 9:44 AM [facility] Sodium, Venous 136 135 - 145 mmol/L 02/18/2024 9:44 AM [facility] Potassium, Venous 3.7 3.5 - 5.0 mmol/L 02/18/2024 9:44 AM [facility] Chloride, Venous 104 98 - 107 mmol/L 02/18/2024 9:44 AM [facility] Glucose, Venous 116 65 - 199 mg/dL 02/18/2024 9:44 AM [facility] Comment:Glucose Concentratio n >=200 mg/dL plus symptoms is consistent with Diabetes Mellitus. Lactate, Venous 2.8(H) 0.5 - 2.2 mmol/L 02/18/2024 9:44 AM [facility] Ionized Calcium, Venous 1.12(L) 1.15 - 1.33 mmol/L 02/18/2024 9:44 AM [facility] Fraction of Inspired Oxygen, Venous 70 % 02/18/2024 9:44 AM [facility] Blood VENOUS BLOOD SPECIMEN / Unknown 02/18/2024 9:43 AM EST 02/18/2024 9:44 AM EST Emily Raymond MD POINT OF CARE TEST O RDERABLES Performing Organization Address City/[facility]/ZIP Co de Phone Number [facility] [place] [address] * MRSA PCR Screen (02/18/2024 9:24 AM EST) [facility] MRSA PCR Not Detected 02/18/2024 5:10 PM EST [facility] Swab BOTH ANTERIOR NARES / Unknown Non Blood Collection / Unknown 02/18/2024 9:24 AM EST 02/18/2024 9:34 AM EST Narrative [facility] - 02/18/2024 5:10 PM EST This test was performed using the Xpert MRSA NxG test kit and is run on the [employer]pert Dx System. This test is cleared by the U.S. Food and Drug Administration for clinical use and its performance characteristics have been verified by the [facility] and [employer] [facility] at [facility]. This test was performed using the Xpert MRSA NxG test kit and is run on the [employer]pert Dx System. This test is cleared by the U.S. Food and Drug Administration for clinical use and its performance characteristics have been verified by the [facility] and [employer] [facility] at [facility]. Emily Raymond MD MOLECULAR ORDERABLES Performing Organization Address [facility]/ZIP Co de Phone Number [facility] [place] [address] * Respiratory Panel PCR (02/18/2024 9:24 AM EST) [facility] Respiratory Panel PCR Negative Negative 02/18/2024 10:50 AM EST [facility] Adenovirus Not Detected Not Detected 02/18/2024 10:50 AM EST [facility] Coronavirus HKU1 Not Detected Not Detected 02/18/2024 10:50 AM EST [facility] Coronavirus NL63 Not Detected Not Detected 02/18/2024 10:50 AM EST [facility] Coronavirus 229E Not Detected Not Detected 02/18/2024 10:50 AM EST [facility] Coronavirus OC43 Not Detected Not Detected 02/18/2024 10:50 AM [facility] SARS-CoV-2 Not Detected Not Detected 02/18/2024 10:50 AM [facility] Human Metapneumovirus Not Detected Not Detected 02/18/2024 10:50 AM [facility] Human Rhinovirus/Enterov irus Not Detected Not Detected 02/18/2024 10:50 AM [facility] Influenza A Not Detected Not Detected 02/18/2024 10:50 AM [facility] Influenza B Not Detected Not Detected 02/18/2024 10:50 AM [facility] Parainfluenza 1 Not Detected Not Detected 02/18/2024 10:50 AM [facility] Parainfluenza 2 Not Detected Not Detected 02/18/2024 10:50 AM [facility] Parainfluenza 3 Not Detected Not Detected 02/18/2024 10:50 AM [facility] Parainfluenza 4 Not Detected Not Detected 02/18/2024 10:50 AM [facility] Respiratory Syncytial Virus Not Detected Not Detected 02/18/2024 10:50 AM [facility] Chlamydophila pneumoniae Not Detected Not Detected 02/18/2024 10:50 AM [facility] Mycoplasma pneumoniae Not Detected Not Detected 02/18/2024 10:50 AM [facility] Swab SPECIMEN FROM NASOPHARYNGEAL STRUCTURE / Unknown Non Blood Collection / Unknown 02/18/2024 9:24 AM EST 02/18/2024 9:34 AM [facility] - 02/18/2024 10:50 AM [facility] Respiratory Panels are performed on the [employer] using multiplexed PCR nucleic acid detection. Negative results do not preclude respiratory infection and should not be used as the sole basis for diagnosis, treatment, or other management decisions. Emily Raymond MD MICROBIOLOGY - GENER AL ORDERABLES [facility] [place] [address] * POC, GLUCOSE (02/18/2024 7:42 AM EST) Glucometer, POC 167 65 - 199 mg/dL 02/18/2024 7:42 AM EST [facility] Comment:Supplemental ranges: <140 mg/dL before meals <180 mg/dL all other times of the day. Blood CAPILLARY BLOOD / Unknown 02/18/2024 7:42 AM EST 02/18/2024 7:42 AM EST Emily Raymond MD POINT OF CARE TEST O RDERABLES [facility] [place] [address] * XR Chest One View (02/18/2024 4:48 AM EST) WORKSTATION ID [id number] RAD Anatomical Region Laterality Modality Chest N/A Digital Radiogra phy Impressions 02/18/2024 4:56 AM EST 1. ??Endotracheal tube tip projects over the lower trachea, 3.4 cm above the rema. 2. ??Enteric tube tip and side-port project over the stomach. 3. ??Improved aeration of the bilateral lower lobes with residual subsegmental atelectasis. 4. ??Trace pleural effusions. 5. ??No definitive pneumothorax. Thank you for letting us participate in the care of this patient. ??If you are a health care provider and have any questions regarding this report, please contact the number below. ??For patients who have questions please contact the health floor care technician that requested your imaging first. ? Electronically signed by: Clark Johnson MD, [facility] ([phone]), at 02/18/2024 4:56 AM Narrative 02/18/2024 4:56 AM EST EXAMINATION: XR CHEST ONE VIEW CLINICAL HISTORY: bilateral lower lobe collapse, intubation TECHNIQUE: 1 view of the chest , single image COMPARISON: Chest radiograph 02/17/2024. CT angiogram chest 02/18/2024. FINDINGS: Endotracheal tube tip projects over the lower trachea, 3.4 cm above the rema. Epidural catheter tip projects over the mid to lower thoracic spine. Left-sided chest tube tip projects over the superior left hemithorax, unchanged in position. EKG leads are present. Surgical clips project over the right axilla. Skin kim project over the left lateral chest wall. Enteric tube projects below the diaphragm with tip and side port projecting over the stomach. Surgical clips project over the gallbladder fossa. Improved aeration of the bilateral lower lobes with residual hazy and streaky opacities likely subsegmental atelectasis. No new airspace opacity within the upper lobes. No pneumothorax. Previously seen pneumothorax on prior chest CT may be nondependent and obscured on semierect radiograph. There is mild blunting of the costophrenic angles consistent with trace effusions. Unchanged size of the cardiomediastinal silhouette and ryan. Sclerotic appearance of the axial and appendicular skeleton. Procedure Note Clark Johnson MD - 02/18/2024 EXAMINATION: XR CHEST ONE VIEW CLINICAL HISTORY: bilateral lower lobe collapse, intubation TECHNIQUE: 1 view of the chest , single image COMPARISON: Chest radiograph 02/17/2024. CT angiogram chest 02/18/2024. FINDINGS: Endotracheal tube tip projects over the lower trachea, 3.4 cm above thecarina. Epidural catheter tip projects over the mid to lower thoracic spine. Left-sided chest tube tip projects over the superior left hemithorax,unchanged in position. EKG leads are present. Surgical clips project over the right axilla. Skin kim project over the left lateral chest wall. Enteric tube projects below the diaphragm with tip and side portprojecting over the stomach. Surgical clips project over the gallbladder fossa. Improved aeration of the bilateral lower lobes with residual hazy andstreaky opacities likely subsegmental atelectasis. No new airspace opacity withinthe upper lobes. No pneumothorax. Previously seen pneumothorax on prior chestCT may be nondependent and obscured on semierect radiograph. There is mildblunting of the costophrenic angles consistent with trace effusions. Unchanged size ofthe cardiomediastinal silhouette and ryan. Sclerotic appearance of the axialand appendicular skeleton. IMPRESSION 1. Endotracheal tube tip projects over the lower trachea, 3.4 cm abovethe rema. 2. Enteric tube tip and side-port project over the stomach. 3. Improved aeration of the bilateral lower lobes with residualsubsegmental atelectasis. 4. Trace pleural effusions. 5. No definitive pneumothorax. Thank you for letting us participate in the care of this patient. If youare a health care provider and have any questions regarding this report,please contact the number below. For patients who have questions please contactthe health floor care technician that requested your imaging first. Electronically signed by: Clark Johnson MD, [facility]([phone]), at 02/18/2024 4:56 AM Emily Raymond MD IMG DX ORDERABLES * POC, GLUCOSE (02/18/2024 3:58 AM EST) [facility] Glucometer, POC 150 65 - 199 mg/dL 02/18/2024 3:58 AM EST [facility] Comment:Supplemental ranges: <140 mg/dL before meals <180 mg/dL all other times of the day. Blood CAPILLARY BLOOD / Unknown 02/18/2024 3:58 AM EST 02/18/2024 3:58 AM EST Emily Raymond MD POINT OF CARE TEST O RDERABLES [facility] [place] [address] * EKG 12 Lead (02/18/2024 1:39 AM EST) [facility] Ventricular rate 119 BPM MUSE SYSTEM Atrial Rate 119 BPM MUSE SYSTEM P-R Interval 140 ms MUSE SYSTEM QRS Duration 132 ms MUSE SYSTEM Q-T Interval 340 ms MUSE SYSTEM QTC Calculated (Bezet) 478 ms MUSE SYSTEM Calculated P [place] 64 degrees MUSE SYSTEM Calculated R [place] 115 degrees MUSE SYSTEM Calculated T [place] 49 degrees MUSE SYSTEM INTERPRETATION Sinus tachycardia Right bundle branch block Abnormal ECG When compared with ECG of 17-FEB-2024 09:06, (unconfirmed) No significant change was found Confirmed by fellow Katy Del Castillo ([id number]) on 02/19/2024 4:11:59 PM Confirmed by MD Maldonado Jose ([id number]) on 02/21/2024 8:48:08 PM MUSE SYSTEM 02/18/2024 1:39 AM EST 02/21/2024 8:48 PM EST Emily Raymond MD ECG ORDERABLES MUSE SYSTEM * (ABNORMAL) CBC (with Diff) (02/18/2024 12:32 AM EST) White Blood Cell 12.68(H) 4.00 - 9.50 x10(3)/mc L 02/18/2024 12:53 AM [facility] Red Blood Cell 3.31(L) 4.00 - 5.21 x10(6)/mc L 02/18/2024 12:53 AM [facility] Hemoglobin 10.2(L) 11.7 - 15.5 g/dL 02/18/2024 12:53 AM [facility] Hematocrit 31.3(L) 35.7 - 45.8 % 02/18/2024 12:53 AM [facility] Mean Cell Volume 94.6(H) 82.6 - 94.4 fL 02/18/2024 12:53 AM [facility] Mean Cell Hemoglobin 30.8 27.1 - 32.0 pg 02/18/2024 12:53 AM [facility] Mean Cell Hemoglobin Concentration 32.6 31.7 - 35.0 g/dL 02/18/2024 12:53 AM [facility] Platelet 197 145 - 357 x10(3)/mc L 02/18/2024 12:53 AM [facility] Mean Platelet Volume 9.0 7.6 - 12.9 fL 02/18/2024 12:53 AM [facility] RDW Standard Deviation 46.9(H) 37.0 - 46.0 fL 02/18/2024 12:53 AM [facility] RDW coefficient of variation 13.4 11.5 - 14.1 % 02/18/2024 12:53 AM [facility] NRBC% auto 0.0 % 02/18/2024 12:53 AM [facility] NRBC Absolute <0.01 <0.01 x10(3)/mc L 02/18/2024 12:53 AM [facility] Neutrophil % 86.4 % 02/18/2024 12:53 AM [facility] Neutrophil Absolute (ANC) - Automated 10.96(H) 1.70 - 6.10 x10(3)/mc L 02/18/2024 12:53 AM [facility] Lymph % 7.5 % 02/18/2024 12:53 AM [facility] Lymph Absolute 0.95 0.90 - 3.20 x10(3)/mc L 02/18/2024 12:53 AM [facility] Monocyte % 5.3 % 02/18/2024 12:53 AM [facility] Monocyte Absolute 0.67 0.30 - 0.90 x10(3)/mc L 02/18/2024 12:53 AM [facility] Eos % 0.1 % 02/18/2024 12:53 AM [facility] Eos Absolute <0.04 0.00 - 0.40 x10(3)/mc L 02/18/2024 12:53 AM [facility] Basophil % 0.1 % 02/18/2024 12:53 AM [facility] Baso Absolute <0.04 0.00 - 0.10 x10(3)/mc L 02/18/2024 12:53 AM [facility] Immature Gran % 0.6 % 12:53 AM [facility] Immature Gran Absolute 0.08(H) 0.00 - 0.04 x10(3)/mc L 02/18/2024 12:53 AM [facility] Blood VENOUS BLOOD SPECIMEN / Unknown Venipuncture / Unknown 02/18/2024 12:32 AM EST 02/18/2024 12:42 AM EST Emily Raymond MD HEMATOLOGY ORDERABLE S [facility] [place] [address] * (ABNORMAL) Basic Metabolic Panel (02/18/2024 12:32 AM EST) Glucose 140 65 - 199 mg/dL 02/18/2024 1:13 AM [facility] Comment:Glucose Concentratio n >=200 mg/dL plus symptoms is consistent with Diabetes Mellitus. Blood Urea Nitrogen 6(L) 8 - 18 mg/dL 02/18/2024 1:13 AM [facility] Creatinine 0.66(L) 0.70 - 1.20 mg/dL 02/18/2024 1:13 AM [facility] Sodium 139 135 - 145 mMol/L 02/18/2024 1:13 AM [facility] Potassium 4.0 3.5 - 5.0 mMol/L 02/18/2024 1:13 AM [facility] Chloride 106 98 - 107 mMol/L 02/18/2024 1:13 AM [facility] Carbon Dioxide 26 22 - 31 mMol/L 02/18/2024 1:13 AM [facility] Anion Gap 7 5 - 15 mMol/L 02/18/2024 1:13 AM [facility] Calcium 8.0(L) 8.5 - 10.5 mg/dL 02/18/2024 1:13 AM EST [facility] Est Glomerular Filtration Rate - Female 99 mL/min/1. 73 m?? 02/18/2024 1:13 AM EST [facility] Comment: This patient's estimated GFR was [...] SPECIMEN / Unknown Venipuncture / Unknown 02/18/2024 12:32 AM EST 02/18/2024 12:42 AM EST Emily Raymond MD CHEMISTRY ORDERABLES [facility] [place] [address] * (ABNORMAL) Phosphorus (02/18/2024 12:32 AM EST) Phosphorus 2.3(L) 2.5 - 4.5 mg/dL 02/18/2024 1:13 AM EST [facility] Blood VENOUS BLOOD SPECIMEN / Unknown Venipuncture / Unknown 02/18/2024 12:32 AM EST 02/18/2024 12:42 AM EST Emily Raymond MD CHEMISTRY ORDERABLES [facility] [place] [address] * Magnesium (02/18/2024 12:32 AM EST) Magnesium 0.78 0.69 - 1.07 mMol/L 02/18/2024 1:13 AM EST [facility] Blood VENOUS BLOOD SPECIMEN / Unknown Venipuncture / Unknown 02/18/2024 12:32 AM EST 02/18/2024 12:42 AM EST Emily Raymond MD CHEMISTRY ORDERABLES Performing Organization Address [facility] Co de Phone Number [facility] [place] [address] * POC, GLUCOSE (02/18/2024 12:31 AM EST) Glucometer, POC 148 65 - 199 mg/dL 02/18/2024 12:31 AM EST [facility] Comment:Supplemental ranges: <140 mg/dL before meals <180 mg/dL all other times of the day. Blood CAPILLARY BLOOD / Unknown 02/18/2024 12:31 AM EST 02/18/2024 12:31 AM EST Emily Raymond MD POINT OF CARE TEST O RDERABLES Performing Organization Address [facility] de Phone Number [facility] [place] [address] * CT Angiogram Chest for Pulmonary Embolus w Contrast (02/18/2024 12:07 AM EST) WORKSTATION ID [id number] DH RAD Anatomical Region Laterality Modality Chest Computed [...] who have questions please contact the health floor care technician that requested your imaging first. ? Electronically signed by: Clark Johnson MD, [facility] ([phone]), at 02/18/2024 1:13 AM Narrative 02/18/2024 1:13 [...] patients who have questions please contactthe health floor care technician that requested your imaging first. Electronically signed by: Clark Johnson MD, [facility]([phone]), at 02/18/2024 1:13 AM Emily Raymond MD IMG CT ORDERABLES * POC, GLUCOSE (02/17/2024 7:56 PM EST) Glucometer, POC 123 65 - 199 mg/dL 02/17/2024 7:56 PM [facility] Comment:Supplemental ranges: <140 mg/dL before meals <180 mg/dL all other times of the day. Blood CAPILLARY BLOOD / Unknown 02/17/2024 7:56 PM EST 02/17/2024 7:56 PM EST Emily Raymond MD POINT OF CARE TEST O RDERABLES [facility] [place] [address] * (ABNORMAL) CBC (with Diff) (02/17/2024 6:02 PM EST) [facility] White Blood Cell 10.65(H) 4.00 - 9.50 x10(3)/mc L 02/17/2024 6:29 PM [facility] Red Blood Cell 3.36(L) 4.00 - 5.21 x10(6)/mc L 02/17/2024 6:29 PM [facility] Hemoglobin 10.5(L) 11.7 - 15.5 g/dL 02/17/2024 6:29 PM [facility] Hematocrit 32.0(L) 35.7 - 45.8 % 02/17/2024 6:29 PM [facility] Mean Cell Volume 95.2(H) 82.6 - 94.4 fL 02/17/2024 6:29 PM [facility] Mean Cell Hemoglobin 31.3 27.1 - 32.0 pg 02/17/2024 6:29 PM [facility] Mean Cell Hemoglobin Concentration 32.8 31.7 - 35.0 g/dL 02/17/2024 6:29 PM [facility] Platelet 174 145 - 357 x10(3)/mc L 02/17/2024 6:29 PM [facility] Mean Platelet Volume 8.9 7.6 - 12.9 fL 02/17/2024 6:29 PM [facility] RDW Standard Deviation 47.9(H) 37.0 - 46.0 fL 02/17/2024 6:29 PM [facility] RDW coefficient of variation 13.6 11.5 - 14.1 % 02/17/2024 6:29 PM [facility] NRBC% auto 0.0 % 02/17/2024 6:29 PM [facility] NRBC Absolute <0.01 <0.01 x10(3)/mc L 02/17/2024 6:29 PM [facility] Neutrophil % 77.1 % 02/17/2024 6:29 PM [facility] Neutrophil Absolute (ANC) - Automated 8.21(H) 1.70 - 6.10 x10(3)/mc L 02/17/2024 6:29 PM [facility] Lymph % 16.7 % 02/17/2024 6:29 PM [facility] Lymph Absolute 1.78 0.90 - 3.20 x10(3)/mc L 02/17/2024 6:29 PM [facility] Monocyte % 5.5 % 02/17/2024 6:29 PM [facility] Monocyte Absolute 0.59 0.30 - 0.90 x10(3)/mc L 02/17/2024 6:29 PM [facility] Eos % 0.2 % 02/17/2024 6:29 PM [facility] Eos Absolute <0.04 0.00 - 0.40 x10(3)/mc L 02/17/2024 6:29 PM [facility] Basophil % 0.2 % 02/17/2024 6:29 PM [facility] Baso Absolute <0.04 0.00 - 0.10 x10(3)/mc L 02/17/2024 6:29 PM [facility] Immature Gran % 0.3 % 6:29 PM EST [facility] Immature Gran Absolute <0.04 0.00 - 0.04 x10(3)/mc L 02/17/2024 6:29 PM [facility] Blood VENOUS BLOOD SPECIMEN / Unknown Venipuncture / Unknown 02/17/2024 6:02 PM EST 02/17/2024 6:10 PM EST Emily Raymond MD HEMATOLOGY ORDERABLE S [facility] [address] [place] [address] * (ABNORMAL) Basic Metabolic Panel (02/17/2024 6:02 PM EST) Glucose 113 65 - 199 mg/dL 02/17/2024 6:43 PM [facility] Comment:Glucose Concentratio n >=200 mg/dL plus symptoms is consistent with Diabetes Mellitus. Blood Urea Nitrogen 7(L) 8 - 18 mg/dL 02/17/2024 6:43 PM [facility] Creatinine 0.68(L) 0.70 - 1.20 mg/dL 02/17/2024 6:43 PM EST [facility] Sodium 139 135 - 145 mMol/L 02/17/2024 6:43 PM EST [facility] Potassium 4.1 3.5 - 5.0 mMol/L 02/17/2024 6:43 PM [facility] Chloride 107 98 - 107 mMol/L 02/17/2024 6:43 PM [facility] Carbon Dioxide 25 22 - 31 mMol/L 02/17/2024 6:43 PM [facility] Anion Gap 7 5 - 15 mMol/L 02/17/2024 6:43 PM [facility] Calcium 8.1(L) 8.5 - 10.5 mg/dL 02/17/2024 6:43 PM [facility] Est Glomerular Filtration Rate - Female 98 mL/min/1. 73 m?? 02/17/2024 6:43 PM EST [facility] Comment: This patient's estimated GFR was [...] SPECIMEN / Unknown Venipuncture / Unknown 02/17/2024 6:02 PM EST 02/17/2024 6:10 PM EST Emily Raymond MD CHEMISTRY ORDERABLES Performing Organization Address [facility]/ZIP Co de Phone Number [facility] [place] [address] * POC, GLUCOSE (02/17/2024 4:14 PM EST) Glucometer, POC 121 65 - 199 mg/dL 02/17/2024 4:14 PM EST [facility] Comment:Supplemental ranges: <140 mg/dL before meals <180 mg/dL all other times of the day. Blood CAPILLARY BLOOD / Unknown 02/17/2024 4:14 PM EST 02/17/2024 4:14 PM EST Emily Raymond MD POINT OF CARE TEST O RDERABLES Performing Organization Address City/[facility]/ZIP Co de Phone Number [facility] [place] [address] * (ABNORMAL) Fibrinogen (02/17/2024 4:10 PM EST) Fibrinogen 410(H) 200 - 393 mg/dL 02/17/2024 4:40 PM EST [facility] Comment: A fibrinogen level >100 mg/dL is adequate for hemostasis in most patients without underlying bleeding disorders. Blood VENOUS BLOOD SPECIMEN / Unknown Venipuncture / Unknown 02/17/2024 4:10 PM EST 02/17/2024 4:16 PM EST Emily Raymond MD HEMATOLOGY ORDERABLE S Performing Organization Address [facility] Co de Phone Number [facility] [place] [address] * APTT (02/17/2024 4:10 PM EST) Partial Thromboplastin Time 26 25 - 37 sec 02/17/2024 4:40 PM EST [facility] Comment: The PTT is NOT appropriate for heparin monitoring. Use the Anti-Xa level for heparin monitoring (HEP UFH) or LMWH monitoring (HEP LMW). A PTT less than 37 seconds generally indicates adequate hemostasis. Blood VENOUS BLOOD SPECIMEN / Unknown Venipuncture / Unknown 02/17/2024 4:10 PM EST 02/17/2024 4:16 PM EST Emily Raymond MD HEMATOLOGY ORDERABLE S Performing Organization Address [facility] de Phone Number [facility] [place] [address] * (ABNORMAL) Prothrombin Time (02/17/2024 4:10 PM EST) Prothrombin Time 12.6(H) 9.4 - 12.5 sec 02/17/2024 4:40 PM EST [facility] International Normalization Ratio 1.1 <=4.9 02/17/2024 4:40 PM EST [facility] Comment: An INR < 2.0 [...] EST Emily Raymond MD HEMATOLOGY ORDERABLE S [facility] [place] [address] * (ABNORMAL) Basic Metabolic Panel (02/17/2024 4:10 PM EST) Glucose 120 65 - 199 mg/dL 02/17/2024 4:52 PM EST [facility] Comment:Glucose Concentratio n >=200 mg/dL plus symptoms is consistent with Diabetes Mellitus. Blood Urea Nitrogen 6(L) 8 - 18 mg/dL 02/17/2024 4:52 PM [facility] Creatinine 0.71 0.70 - 1.20 mg/dL 02/17/2024 4:52 PM [facility] Sodium 139 135 - 145 mMol/L 02/17/2024 4:52 PM EST [facility] Potassium 4.3 3.5 - 5.0 mMol/L 02/17/2024 4:52 PM [facility] Chloride 105 98 - 107 mMol/L 02/17/2024 4:52 PM [facility] Carbon Dioxide 24 22 - 31 mMol/L 02/17/2024 4:52 PM [facility] Anion Gap 10 5 - 15 mMol/L 02/17/2024 4:52 PM EST [facility] Calcium 8.5 8.5 - 10.5 mg/dL 02/17/2024 4:52 PM [facility] Est Glomerular Filtration Rate - Female 96 mL/min/1. 73 m?? 02/17/2024 4:52 PM EST [facility] Comment: This patient's estimated GFR was [...] 02/17/2024 4:16 PM EST Emily Raymond MD CHEMISTRY ORDERABLES [facility] [place] [address] * (ABNORMAL) CBC (with Diff) (02/17/2024 4:10 PM EST) White Blood Cell 10.67(H) 4.00 - 9.50 x10(3)/mc L 02/17/2024 4:35 PM EST [facility] Red Blood Cell 3.42(L) 4.00 - 5.21 x10(6)/mc L 02/17/2024 4:35 PM EST [facility] Hemoglobin 10.7(L) 11.7 - 15.5 g/dL 02/17/2024 4:35 PM [facility] Hematocrit 32.7(L) 35.7 - 45.8 % 02/17/2024 4:35 PM [facility] Mean Cell Volume 95.6(H) 82.6 - 94.4 fL 02/17/2024 4:35 PM [facility] Mean Cell Hemoglobin 31.3 27.1 - 32.0 pg 02/17/2024 4:35 PM [facility] Mean Cell Hemoglobin Concentration 32.7 31.7 - 35.0 g/dL 02/17/2024 4:35 PM [facility] Platelet 192 145 - 357 x10(3)/mc L 02/17/2024 4:35 PM [facility] Mean Platelet Volume 9.1 7.6 - 12.9 fL 02/17/2024 4:35 PM [facility] RDW Standard Deviation 48.2(H) 37.0 - 46.0 fL 02/17/2024 4:35 PM [facility] RDW coefficient of variation 13.6 11.5 - 14.1 % 02/17/2024 4:35 PM [facility] NRBC% auto 0.0 % 02/17/2024 4:35 PM [facility] NRBC Absolute <0.01 <0.01 x10(3)/mc L 02/17/2024 4:35 PM [facility] Neutrophil % 77.7 % 02/17/2024 4:35 PM [facility] Neutrophil Absolute (ANC) - Automated 8.29(H) 1.70 - 6.10 x10(3)/mc L 02/17/2024 4:35 PM [facility] Lymph % 14.3 % 02/17/2024 4:35 PM [facility] Lymph Absolute 1.53 0.90 - 3.20 x10(3)/mc L 02/17/2024 4:35 PM [facility] Monocyte % 7.1 % 02/17/2024 4:35 PM [facility] Monocyte Absolute 0.76 0.30 - 0.90 x10(3)/mc L 02/17/2024 4:35 PM [facility] Eos % 0.2 % 02/17/2024 4:35 PM [facility] Eos Absolute <0.04 0.00 - 0.40 x10(3)/mc L 02/17/2024 4:35 PM [facility] Basophil % 0.2 % 02/17/2024 4:35 PM [facility] Baso Absolute <0.04 0.00 - 0.10 x10(3)/mc L 02/17/2024 4:35 PM [facility] Immature Gran % 0.5 % 4:35 PM [facility] Immature Gran Absolute 0.05(H) 0.00 - 0.04 x10(3)/mc L 02/17/2024 4:35 PM [facility] Blood VENOUS BLOOD SPECIMEN / Unknown Venipuncture / Unknown 02/17/2024 4:10 PM EST 02/17/2024 4:16 PM EST Emily Raymond MD HEMATOLOGY ORDERABLE S [facility] [place] [address] * (ABNORMAL) Blood Gas, Arterial POC (02/17/2024 3:45 PM EST) pH, Arterial 7.44 7.35 - 7.45 02/17/2024 3:46 PM [facility] PCO2, Arterial 36 35 - 45 mmHg 02/17/2024 3:46 PM [facility] PO2, Arterial 56(L) 85 - 104 mmHg 02/17/2024 3:46 PM [facility] Bicarbonate, Arterial 23.6 20.0 - 26.0 mmol/L 02/17/2024 3:46 PM [facility] Base Excess, Arterial -0.6 -3.0 - 3.0 mmol/L 02/17/2024 3:46 PM [facility] Hemoglobin, Arterial 11.4(L) 11.7 - 15.5 g/dL 02/17/2024 3:46 PM [facility] Oxyhemoglobin, Arterial 89.3(L) 94.0 - 97.0 % 02/17/2024 3:46 PM [facility] Carboxyhemoglobin , Arterial 1.2 % 02/17/2024 3:46 PM [facility] Comment: Nonsmokers: 0.5-1.5% COHB ?? Smokers: Variable ??but usually less than 10% ?? Toxic: 20-30% COHB ?? Lethal: Greater than 60% COHB Methemoglobin, Arterial 0.3 <=1.5 % 02/17/2024 3:46 PM [facility] Sodium, Arterial 133(L) 135 - 145 mmol/L 02/17/2024 3:46 PM EST [facility] Potassium, Arterial 4.0 3.5 - 5.0 mmol/L 02/17/2024 3:46 PM [facility] Chloride, Arterial 106 98 - 107 mmol/L 02/17/2024 3:46 PM [facility] Lactate, Arterial 1.6 0.5 - 2.2 mmol/L 02/17/2024 3:46 PM [facility] Fraction of Inspired Oxygen 60 % 02/17/2024 3:46 PM [facility] Flow Rate 40.0 L/min 02/17/2024 3:46 PM [facility] PF Ratio 93 Ratio 02/17/2024 3:46 PM [facility] Comment:PF ratio calculated using the non-temperature corrected pO2 result. IONIZED CALCIUM, ARTERIAL 1.13(L) 1.15 - 1.33 mmol/L 02/17/2024 3:46 PM [facility] Glucose, Arterial 115 65 - 199 mg/dL 02/17/2024 3:46 PM EST [facility] Comment:Glucose Concentratio n >=200 mg/dL plus symptoms is consistent with Diabetes Mellitus. Blood ARTERIAL BLOOD / Unknown 02/17/2024 3:45 PM EST 02/17/2024 3:46 PM EST Emily Raymond MD POINT OF CARE TEST O RDERABLES [facility] [place] [address] * XR Chest One View (02/17/2024 3:33 PM EST) WORKSTATION ID [id number] RAD Anatomical Region Laterality Modality Chest N/A Digital Radiogra phy Impressions 02/18/2024 12:18 AM EST 1. ??No definitive pneumothorax. 2. ??Small bilateral pleural effusions. 3. ??Unchanged bilateral lower lobe collapse. Thank you for letting us participate in the care of this patient. ??If you are a health care provider and have any questions regarding this report, please contact the number below. ??For patients who have questions please contact the health floor care technician that requested your imaging first. ? Electronically signed by: Clark Johnson MD, [facility] ([phone]), at 02/18/2024 12:18 AM Narrative 02/18/2024 12:18 AM EST EXAMINATION: XR CHEST ONE VIEW CLINICAL HISTORY: increasing o2 req in postoperative patient with left sided chest tube. evaluate for pneumothorax and pulmonary edema TECHNIQUE: 1 view of the chest , single image COMPARISON: Chest radiograph 02/17/2024 FINDINGS: Left-sided chest tube projects over the lateral left hemithorax. Epidural catheter tip projects over the mid to lower thoracic spine. EKG leads are present. Skin kim project over the left upper quadrant. Surgical clips project over the right axilla. There are low bilateral lung volumes. Similar appearance of mild hazy opacities throughout the lungs. Unchanged opacities obscure the medial hemidiaphragms bilaterally. No definitive pneumothorax on this semierect study. There is blunting of the left costophrenic angle and right costophrenic angle suggesting trace pleural effusions. Unchanged size of the cardiomediastinal silhouette and ryan. Chronic resorption of the distal right clavicle. Procedure Note Clark Johnson MD - 02/18/2024 EXAMINATION: XR CHEST ONE VIEW CLINICAL HISTORY: increasing o2 req in postoperative patient with leftsided chest tube. evaluate for pneumothorax and pulmonary edema TECHNIQUE: 1 view of the chest , single image COMPARISON: Chest radiograph 02/17/2024 FINDINGS: Left-sided chest tube projects over the lateral left hemithorax. Epidural catheter tip projects over the mid to lower thoracic spine. EKG leads are present. Skin kim project over the left upper quadrant. Surgical clips project over the right axilla. There are low bilateral lung volumes. Similar appearance of mild hazyopacities throughout the lungs. Unchanged opacities obscure the medialhemidiaphragms bilaterally. No definitive pneumothorax on this semierect study. Thereis blunting of the left costophrenic angle and right costophrenic anglesuggesting trace pleural effusions. Unchanged size of the cardiomediastinalsilhouette and ryan. Chronic resorption of the distal right clavicle. IMPRESSION 1. No definitive pneumothorax. 2. Small bilateral pleural effusions. 3. Unchanged bilateral lower lobe collapse. Thank you for letting us participate in the care of this patient. If youare a health care provider and have any questions regarding this report,please contact the number below. For patients who have questions please contactthe health floor care technician that requested your imaging first. Electronically signed by: Clark Johnson MD, [facility]([phone]), at 02/18/2024 12:18 AM Emily Raymond MD IMG DX ORDERABLES * POC, GLUCOSE (02/17/2024 12:11 PM EST) [facility] Glucometer, POC 132 65 - 199 mg/dL 02/17/2024 12:11 PM EST [facility] Comment:Supplemental ranges: <140 mg/dL before meals <180 mg/dL all other times of the day. Blood CAPILLARY BLOOD / Unknown 02/17/2024 12:11 PM EST 02/17/2024 12:11 PM EST Emily Raymond MD POINT OF CARE TEST O RDERABLES [facility] [place] [address] * EKG 12 Lead (02/17/2024 9:06 AM EST) [facility] Ventricular rate 95 BPM MUSE SYSTEM Atrial Rate 95 BPM MUSE SYSTEM P-R Interval 136 ms MUSE SYSTEM QRS Duration 150 ms MUSE SYSTEM Q-T Interval 396 ms MUSE SYSTEM QTC Calculated (Bezet) 497 ms MUSE SYSTEM Calculated P [place] 40 degrees MUSE SYSTEM Calculated R [place] 180 degrees MUSE SYSTEM Calculated T [place] 24 degrees MUSE SYSTEM INTERPRETATION Normal sinus rhythm with sinus arrhythmia Right bundle branch block Abnormal ECG When compared with ECG of 04-FEB-2024 18:00, atrial tachycardia no longer present Confirmed by fellow Katy Del Castillo ([id number]) on 02/19/2024 2:45:23 PM Confirmed by MD Bhavin, Shane ([id number]) on 02/19/2024 3:25:41 PM MUSE SYSTEM 02/17/2024 9:06 AM EST 02/19/2024 3:25 PM EST Emily Raymond MD ECG ORDERABLES MUSE SYSTEM * XR Chest One View (02/17/2024 8:01 AM EST) WORKSTATION ID [id number] RAD Anatomical Region Laterality Modality Chest N/A Digital Radiogra phy Impressions 02/17/2024 9:35 AM EST Collapsed left lower lobe and partially collapsed right lower lobe. Thank you for letting us participate in the care of this patient. ??If you are a health care provider and have any questions regarding this report, please contact the number below. ??For patients who have questions please contact the health floor care technician that requested your imaging first. ? Narrative 02/17/2024 9:35 AM EST EXAMINATION: XR CHEST ONE VIEW CLINICAL HISTORY: hypoxia TECHNIQUE: Portable AP view of the chest COMPARISON: No prior chest radiograph for comparison FINDINGS: Lines and tubes: Left chest tube in place. The cardiac silhouette is magnified. Left lower lobe is collapsed and there is partial right lower lobe collapse. No pneumothorax. Right first rib is been resected. Partial resection of the left seventh rib. Procedure Note Clark Tolentino MD - 02/17/2024 EXAMINATION: XR CHEST ONE VIEW CLINICAL HISTORY: hypoxia TECHNIQUE: Portable AP view of the chest COMPARISON: No prior chest radiograph for comparison FINDINGS: Lines and tubes: Left chest tube in place. The cardiac silhouette is magnified. Left lower lobe is collapsed and there is partial right lower lobecollapse. No pneumothorax. Right first rib is been resected. Partial resection of the left seventhrib. IMPRESSION Collapsed left lower lobe and partially collapsed right lower lobe. Thank you for letting us participate in the care of this patient. If youare a health care provider and have any questions regarding this report,please contact the number below. For patients who have questions please contactthe health floor care technician that requested your imaging first. Electronically signed by: Clark Tolentino MD, [facility]([phone]), at 02/17/2024 9:35 AM Emily Raymond MD IMG DX ORDERABLES * POC, GLUCOSE (02/17/2024 7:34 AM EST) [facility] Signature Glucometer, POC 117 65 - 199 mg/dL 02/17/2024 7:34 AM EST [facility] Comment:Supplemental ranges: <140 mg/dL before meals <180 mg/dL all other times of the day. Blood CAPILLARY BLOOD / Unknown 02/17/2024 7:34 AM EST 02/17/2024 7:34 AM EST Emily Raymond MD POINT OF CARE TEST O RDERABLES [facility] [place] [address] * Prothrombin Time (02/17/2024 6:05 AM EST) Prothrombin Time 12.2 9.4 - 12.5 sec 02/17/2024 6:30 AM EST [facility] International Normalization Ratio 1.1 <=4.9 02/17/2024 6:30 AM EST [facility] Comment: An INR < 2.0 [...] SPECIMEN / Unknown Venipuncture / Unknown 02/17/2024 6:05 AM EST 02/17/2024 6:15 AM EST Emily Raymond MD HEMATOLOGY ORDERABLE S [facility] [place] [address] * Fibrinogen (02/17/2024 6:05 AM EST) Pathologist [facility] Fibrinogen 263 200 - 393 mg/dL 02/17/2024 6:30 AM EST [facility] Comment: A fibrinogen level >100 mg/dL is adequate for hemostasis in most patients without underlying bleeding disorders. Blood VENOUS BLOOD SPECIMEN / Unknown Venipuncture / Unknown 02/17/2024 6:05 AM EST 02/17/2024 6:15 AM EST Emily Raymond MD HEMATOLOGY ORDERABLE S [facility] [place] [address] * (ABNORMAL) CBC (with Diff) (02/17/2024 6:05 AM EST) Pathologist [facility] White Blood Cell 10.78(H) 4.00 - 9.50 x10(3)/mc L 02/17/2024 6:22 AM [facility] Red Blood Cell 3.37(L) 4.00 - 5.21 x10(6)/mc L 02/17/2024 6:22 AM [facility] Hemoglobin 10.7(L) 11.7 - 15.5 g/dL 02/17/2024 6:22 AM [facility] Hematocrit 31.8(L) 35.7 - 45.8 % 02/17/2024 6:22 AM [facility] Mean Cell Volume 94.4 82.6 - 94.4 fL 02/17/2024 6:22 AM [facility] Mean Cell Hemoglobin 31.8 27.1 - 32.0 pg 02/17/2024 6:22 AM [facility] Mean Cell Hemoglobin Concentration 33.6 31.7 - 35.0 g/dL 02/17/2024 6:22 AM [facility] Platelet 189 145 - 357 x10(3)/mc L 02/17/2024 6:22 AM [facility] Mean Platelet Volume 8.6 7.6 - 12.9 fL 02/17/2024 6:22 AM [facility] RDW Standard Deviation 47.7(H) 37.0 - 46.0 fL 02/17/2024 6:22 AM [facility] RDW coefficient of variation 13.6 11.5 - 14.1 % 02/17/2024 6:22 AM [facility] NRBC% auto 0.0 % 02/17/2024 6:22 AM [facility] NRBC Absolute <0.01 <0.01 x10(3)/mc L 02/17/2024 6:22 AM [facility] Neutrophil % 75.2 % 02/17/2024 6:22 AM [facility] Neutrophil Absolute (ANC) - Automated 8.12(H) 1.70 - 6.10 x10(3)/mc L 02/17/2024 6:22 AM [facility] Lymph % 17.1 % 02/17/2024 6:22 AM [facility] Lymph Absolute 1.84 0.90 - 3.20 x10(3)/mc L 02/17/2024 6:22 AM [facility] Monocyte % 6.9 % 02/17/2024 6:22 AM [facility] Monocyte Absolute 0.74 0.30 - 0.90 x10(3)/mc L 02/17/2024 6:22 AM [facility] Eos % 0.1 % 02/17/2024 6:22 AM [facility] Eos Absolute <0.04 0.00 - 0.40 x10(3)/mc L 02/17/2024 6:22 AM [facility] Basophil % 0.2 % 02/17/2024 6:22 AM [facility] Baso Absolute <0.04 0.00 - 0.10 x10(3)/mc L 02/17/2024 6:22 AM [facility] Immature Gran % 0.5 % 6:22 AM [facility] Immature Gran Absolute 0.05(H) 0.00 - 0.04 x10(3)/mc L 02/17/2024 6:22 AM [facility] Blood VENOUS BLOOD SPECIMEN / Unknown Venipuncture / Unknown 02/17/2024 6:05 AM EST 02/17/2024 6:22 AM EST Emily Raymond MD HEMATOLOGY ORDERABLE S [facility] [place] [address] * (ABNORMAL) Basic Metabolic Panel (02/17/2024 6:05 AM EST) Glucose 103 65 - 199 mg/dL 02/17/2024 6:51 AM [facility] Comment:Glucose Concentratio n >=200 mg/dL plus symptoms is consistent with Diabetes Mellitus. Blood Urea Nitrogen 6(L) 8 - 18 mg/dL 02/17/2024 6:51 AM EST [facility] Creatinine 0.64(L) 0.70 - 1.20 mg/dL 02/17/2024 6:51 AM EST [facility] Sodium 138 135 - 145 mMol/L 02/17/2024 6:51 AM [facility] Potassium 4.5 3.5 - 5.0 mMol/L 02/17/2024 6:51 AM [facility] Chloride 108(H) 98 - 107 mMol/L 02/17/2024 6:51 AM [facility] Carbon Dioxide 22 22 - 31 mMol/L 02/17/2024 6:51 AM [facility] Anion Gap 8 5 - 15 mMol/L 02/17/2024 6:51 AM [facility] Calcium 8.4(L) 8.5 - 10.5 mg/dL 02/17/2024 6:51 AM [facility] Est Glomerular Filtration Rate - Female 99 mL/min/1. 73 m?? 02/17/2024 6:51 AM [facility] Comment: This patient's estimated GFR was [...] SPECIMEN / Unknown Venipuncture / Unknown 02/17/2024 6:05 AM EST 02/17/2024 6:15 AM EST Emily Raymond MD CHEMISTRY ORDERABLES [facility] [place] [address] * APTT (02/17/2024 6:05 AM EST) Partial Thromboplastin Time 27 25 - 37 sec 02/17/2024 6:30 AM EST [facility] Comment: The PTT is NOT appropriate for heparin monitoring. Use the Anti-Xa level for heparin monitoring (HEP UFH) or LMWH monitoring (HEP LMW). A PTT less than 37 seconds generally indicates adequate hemostasis. Blood VENOUS BLOOD SPECIMEN / Unknown Venipuncture / Unknown 02/17/2024 6:05 AM EST 02/17/2024 6:15 AM EST Emily Raymond MD HEMATOLOGY ORDERABLE S Performing Organization Address [facility] Co de Phone Number [facility] [place] [address] * POC, GLUCOSE (02/17/2024 3:59 AM EST) Glucometer, POC 110 65 - 199 mg/dL 02/17/2024 3:59 AM EST [facility] Comment:Supplemental ranges: <140 mg/dL before meals <180 mg/dL all other times of the day. Blood CAPILLARY BLOOD / Unknown 02/17/2024 3:59 AM EST 02/17/2024 3:59 AM EST Emily Raymond MD POINT OF CARE TEST O RDERABLES Performing Organization Address City/[facility]/ZIP Co de Phone Number [facility] [place] [address] * POC, GLUCOSE (02/17/2024 12:14 AM EST) Glucometer, POC 113 65 - 199 mg/dL 02/17/2024 12:14 AM EST [facility] Comment:Supplemental ranges: <140 mg/dL before meals <180 mg/dL all other times of the day. Blood CAPILLARY BLOOD / Unknown 02/17/2024 12:14 AM EST 02/17/2024 12:14 AM EST Emily Raymond MD POINT OF CARE TEST O RDERABLES [facility] [place] [address] * Phosphorus (02/17/2024 12:14 AM EST) Phosphorus 4.4 2.5 - 4.5 mg/dL 02/17/2024 12:54 AM EST [facility] Blood VENOUS BLOOD SPECIMEN / Unknown Venipuncture / Unknown 02/17/2024 12:14 AM EST 02/17/2024 12:23 AM EST Emily Raymond MD CHEMISTRY ORDERABLES Performing Organization Address City/[facility] Co de Phone Number [facility] [place] [address] * Magnesium (02/17/2024 12:14 AM EST) Magnesium 0.81 0.69 - 1.07 mMol/L 02/17/2024 12:54 AM EST [facility] Blood VENOUS BLOOD SPECIMEN / Unknown Venipuncture / Unknown 02/17/2024 12:14 AM EST 02/17/2024 12:23 AM EST Emily Raymond MD CHEMISTRY ORDERABLES Performing Organization Address City/[facility]/ZIP Co de Phone Number [facility] [place] [address] * Prothrombin Time (02/17/2024 12:14 AM EST) Prothrombin Time 11.4 9.4 - 12.5 sec 02/17/2024 12:52 AM EST [facility] International Normalization Ratio 1.0 <=4.9 02/17/2024 12:52 AM EST [facility] Comment: An INR < 2.0 [...] SPECIMEN / Unknown Venipuncture / Unknown 02/17/2024 12:14 AM EST 02/17/2024 12:22 AM EST Emily Raymond MD HEMATOLOGY ORDERABLE S Performing Organization Address [facility]/ZIP Co de Phone Number [facility] [place] [address] * Fibrinogen (02/17/2024 12:14 AM EST) Fibrinogen 230 200 - 393 mg/dL 02/17/2024 12:52 AM EST [facility] Comment: A fibrinogen level >100 mg/dL is adequate for hemostasis in most patients without underlying bleeding disorders. Blood VENOUS BLOOD SPECIMEN / Unknown Venipuncture / Unknown 02/17/2024 12:14 AM EST 02/17/2024 12:22 AM EST Emily Raymond MD HEMATOLOGY ORDERABLE S Performing Organization Address City/[facility]/ZIP Co de Phone Number [facility] [place] [address] * (ABNORMAL) CBC (with Diff) (02/17/2024 12:14 AM EST) White Blood Cell 10.74(H) 4.00 - 9.50 x10(3)/mc L 02/17/2024 12:29 AM EST [facility] Red Blood Cell 3.44(L) 4.00 - 5.21 x10(6)/mc L 02/17/2024 12:29 AM EST [facility] Hemoglobin 10.8(L) 11.7 - 15.5 g/dL 02/17/2024 12:29 AM [facility] Hematocrit 32.6(L) 35.7 - 45.8 % 02/17/2024 12:29 AM EST [facility] Mean Cell Volume 94.8(H) 82.6 - 94.4 fL 02/17/2024 12:29 AM [facility] Mean Cell Hemoglobin 31.4 27.1 - 32.0 pg 02/17/2024 12:29 AM [facility] Mean Cell Hemoglobin Concentration 33.1 31.7 - 35.0 g/dL 02/17/2024 12:29 AM [facility] Platelet 188 145 - 357 x10(3)/mc L 02/17/2024 12:29 AM [facility] Mean Platelet Volume 8.8 7.6 - 12.9 fL 02/17/2024 12:29 AM [facility] RDW Standard Deviation 47.5(H) 37.0 - 46.0 fL 02/17/2024 12:29 AM [facility] RDW coefficient of variation 13.7 11.5 - 14.1 % 02/17/2024 12:29 AM [facility] NRBC% auto 0.0 % 02/17/2024 12:29 AM [facility] NRBC Absolute <0.01 <0.01 x10(3)/mc L 02/17/2024 12:29 AM [facility] Neutrophil % 82.5 % 02/17/2024 12:29 AM [facility] Neutrophil Absolute (ANC) - Automated 8.86(H) 1.70 - 6.10 x10(3)/mc L 02/17/2024 12:29 AM [facility] Lymph % 10.7 % 02/17/2024 12:29 AM [facility] Lymph Absolute 1.15 0.90 - 3.20 x10(3)/mc L 02/17/2024 12:29 AM [facility] Monocyte % 6.3 % 02/17/2024 12:29 AM [facility] Monocyte Absolute 0.68 0.30 - 0.90 x10(3)/mc L 02/17/2024 12:29 AM [facility] Eos % 0.0 % 02/17/2024 12:29 AM EST [facility] Eos Absolute <0.04 0.00 - 0.40 x10(3)/mc L 02/17/2024 12:29 AM EST [facility] Basophil % 0.2 % 02/17/2024 12:29 AM [facility] Baso Absolute <0.04 0.00 - 0.10 x10(3)/mc L 02/17/2024 12:29 AM [facility] Immature Gran % 0.3 % 12:29 AM [facility] Immature Gran Absolute <0.04 0.00 - 0.04 x10(3)/mc L 02/17/2024 12:29 AM [facility] Blood VENOUS BLOOD SPECIMEN / Unknown Venipuncture / Unknown 02/17/2024 12:14 AM EST 02/17/2024 12:22 AM EST Emily Raymond MD HEMATOLOGY ORDERABLE S [facility] [place] [address] * (ABNORMAL) Basic Metabolic Panel (02/17/2024 12:14 AM EST) Glucose 112 65 - 199 mg/dL 02/17/2024 12:54 AM [facility] Comment:Glucose Concentratio n >=200 mg/dL plus symptoms is consistent with Diabetes Mellitus. Blood Urea Nitrogen 6(L) 8 - 18 mg/dL 02/17/2024 12:54 AM [facility] Creatinine 0.60(L) 0.70 - 1.20 mg/dL 02/17/2024 12:54 AM [facility] Sodium 138 135 - 145 mMol/L 02/17/2024 12:54 AM [facility] Potassium 4.8 3.5 - 5.0 mMol/L 02/17/2024 12:54 AM [facility] Chloride 109(H) 98 - 107 mMol/L 02/17/2024 12:54 AM [facility] Carbon Dioxide 22 22 - 31 mMol/L 02/17/2024 12:54 AM [facility] Anion Gap 7 5 - 15 mMol/L 02/17/2024 12:54 AM [facility] Calcium 8.6 8.5 - 10.5 mg/dL 02/17/2024 12:54 AM [facility] Est Glomerular Filtration Rate - Female 101 mL/min/1. 73 m?? 02/17/2024 12:54 AM [facility] Comment: This patient's estimated GFR was [...] SPECIMEN / Unknown Venipuncture / Unknown 02/17/2024 12:14 AM EST 02/17/2024 12:23 AM EST Emily Raymond MD CHEMISTRY ORDERABLES [facility] [place] [address] * APTT (02/17/2024 12:14 AM EST) Pathologist [facility] Partial Thromboplastin Time 26 25 - 37 sec 02/17/2024 12:52 AM [facility] Comment: The PTT is NOT appropriate for heparin monitoring. Use the Anti-Xa level for heparin monitoring (HEP UFH) or LMWH monitoring (HEP LMW). A PTT less than 37 seconds generally indicates adequate hemostasis. Blood VENOUS BLOOD SPECIMEN / Unknown Venipuncture / Unknown 02/17/2024 12:14 AM EST 02/17/2024 12:22 AM EST Emily Raymond MD HEMATOLOGY ORDERABLE S Performing Organization Address City/[facility]/ZIP Co de Phone Number [facility] [place] [address] * POC, GLUCOSE (02/16/2024 8:39 PM EST) Glucometer, POC 132 65 - 199 mg/dL 02/16/2024 8:39 PM EST [facility] Comment:Supplemental ranges: <140 mg/dL before meals <180 mg/dL all other times of the day. Blood CAPILLARY BLOOD / Unknown 02/16/2024 8:39 PM EST 02/16/2024 8:39 PM EST Emily Raymond MD POINT OF CARE TEST O RDERABLES Performing Organization Address [facility] de Phone Number [facility] [place] [address] * Prothrombin Time (02/16/2024 6:02 PM EST) Prothrombin Time 11.7 9.4 - 12.5 sec 02/16/2024 6:47 PM EST [facility] International Normalization Ratio 1.0 <=4.9 02/16/2024 6:47 PM EST [facility] Comment: An INR < 2.0 [...] SPECIMEN / Unknown Venipuncture / Unknown 02/16/2024 6:02 PM EST 02/16/2024 6:09 PM EST Emily Raymond MD HEMATOLOGY ORDERABLE S Performing Organization Address City/[facility]/ZIP Co de Phone Number [facility] [place] [address] * Phosphorus (02/16/2024 6:02 PM EST) Phosphorus 4.5 2.5 - 4.5 mg/dL 02/16/2024 6:43 PM EST [facility] Blood VENOUS BLOOD SPECIMEN / Unknown Venipuncture / Unknown 02/16/2024 6:02 PM EST 02/16/2024 6:09 PM EST Emily Raymond MD CHEMISTRY ORDERABLES Performing Organization Address City/[facility]/ZIP Co de Phone Number [facility] [place] [address] * Magnesium (02/16/2024 6:02 PM EST) Pathologist [facility] Magnesium 0.90 0.69 - 1.07 mMol/L 02/16/2024 6:43 PM EST [facility] Blood VENOUS BLOOD SPECIMEN / Unknown Venipuncture / Unknown 02/16/2024 6:02 PM EST 02/16/2024 6:09 PM EST Emily Raymond MD CHEMISTRY ORDERABLES Performing Organization Address [facility] Co de Phone Number [facility] [place] [address] * Fibrinogen (02/16/2024 6:02 PM EST) Pathologist [facility] Fibrinogen 222 200 - 393 mg/dL 02/16/2024 6:47 PM EST [facility] Comment: A fibrinogen level >100 mg/dL is adequate for hemostasis in most patients without underlying bleeding disorders. Blood VENOUS BLOOD SPECIMEN / Unknown Venipuncture / Unknown 02/16/2024 6:02 PM EST 02/16/2024 6:09 PM EST Emily Raymond MD HEMATOLOGY ORDERABLE S Performing Organization Address City/[facility]/ZIP Co de Phone Number [facility] [place] [address] * (ABNORMAL) CBC (with Diff) (02/16/2024 6:02 PM EST) White Blood Cell 13.48(H) 4.00 - 9.50 x10(3)/mc L 02/16/2024 6:20 PM [facility] Red Blood Cell 3.64(L) 4.00 - 5.21 x10(6)/mc L 02/16/2024 6:20 PM [facility] Hemoglobin 11.4(L) 11.7 - 15.5 g/dL 02/16/2024 6:20 PM [facility] Hematocrit 34.7(L) 35.7 - 45.8 % 02/16/2024 6:20 PM [facility] Mean Cell Volume 95.3(H) 82.6 - 94.4 fL 02/16/2024 6:20 PM [facility] Mean Cell Hemoglobin 31.3 27.1 - 32.0 pg 02/16/2024 6:20 PM [facility] Mean Cell Hemoglobin Concentration 32.9 31.7 - 35.0 g/dL 02/16/2024 6:20 PM [facility] Platelet 185 145 - 357 x10(3)/mc L 02/16/2024 6:20 PM [facility] Mean Platelet Volume 8.6 7.6 - 12.9 fL 02/16/2024 6:20 PM [facility] RDW Standard Deviation 47.9(H) 37.0 - 46.0 fL 02/16/2024 6:20 PM [facility] RDW coefficient of variation 13.6 11.5 - 14.1 % 02/16/2024 6:20 PM [facility] NRBC% auto 0.0 % 02/16/2024 6:20 PM [facility] NRBC Absolute <0.01 <0.01 x10(3)/mc L 02/16/2024 6:20 PM [facility] Neutrophil % 86.1 % 02/16/2024 6:20 PM [facility] Neutrophil Absolute (ANC) - Automated 11.61(H) 1.70 - 6.10 x10(3)/mc L 02/16/2024 6:20 PM [facility] Lymph % 8.5 % 02/16/2024 6:20 PM [facility] Lymph Absolute 1.14 0.90 - 3.20 x10(3)/mc L 02/16/2024 6:20 PM EST [facility] Monocyte % 4.5 % 02/16/2024 6:20 PM [facility] Monocyte Absolute 0.61 0.30 - 0.90 x10(3)/mc L 02/16/2024 6:20 PM [facility] Eos % 0.0 % 02/16/2024 6:20 PM [facility] Eos Absolute <0.04 0.00 - 0.40 x10(3)/mc L 02/16/2024 6:20 PM EST [facility] Basophil % 0.2 % 02/16/2024 6:20 PM [facility] Baso Absolute <0.04 0.00 - 0.10 x10(3)/mc L 02/16/2024 6:20 PM [facility] Immature Gran % 0.7 % 6:20 PM [facility] Immature Gran Absolute 0.09(H) 0.00 - 0.04 x10(3)/mc L 02/16/2024 6:20 PM [facility] Blood VENOUS BLOOD SPECIMEN / Unknown Venipuncture / Unknown 02/16/2024 6:02 PM EST 02/16/2024 6:09 PM EST Emily Raymond MD HEMATOLOGY ORDERABLE S [facility] [place] [address] * (ABNORMAL) Basic Metabolic Panel (02/16/2024 6:02 PM EST) [facility] Signature Glucose 174(H) 65 - 99 mg/dL 02/16/2024 6:43 PM [facility] Comment: Fasting Glucose Interpretive Criteria: Normal: 65-99 mg/dL ?? Prediabetes: 100-125 mg/dL ?? Consistent with Diabetes Mellitus: > or = 126 mg/dL ?? Classification and Diagnosis of Diabetes: Standards of Care in Diabetes - 2022. Diabetes Care 202; 46:S19. Fasting is defined as no caloric intake for at least 8 hours. Blood Urea Nitrogen 7(L) 8 - 18 mg/dL 02/16/2024 6:43 PM [facility] Creatinine 0.65(L) 0.70 - 1.20 mg/dL 02/16/2024 6:43 PM [facility] Sodium 138 135 - 145 mMol/L 02/16/2024 6:43 PM [facility] Potassium 4.3 3.5 - 5.0 mMol/L 02/16/2024 6:43 PM [facility] Chloride 110(H) 98 - 107 mMol/L 02/16/2024 6:43 PM [facility] Carbon Dioxide 20(L) 22 - 31 mMol/L 02/16/2024 6:43 PM [facility] Anion Gap 8 5 - 15 mMol/L 02/16/2024 6:43 PM [facility] Calcium 8.7 8.5 - 10.5 mg/dL 02/16/2024 6:43 PM [facility] Est Glomerular Filtration Rate - Female 99 mL/min/1. 73 m?? 02/16/2024 6:43 PM [facility] Comment: This patient's estimated GFR was [...] eGFR. Link: eGFR Calculator [employer] Fasting Status Yes 02/16/2024 6:43 PM EST [facility] Blood VENOUS BLOOD SPECIMEN / Unknown Venipuncture / Unknown 02/16/2024 6:02 PM EST 02/16/2024 6:09 PM EST Emily Raymond MD CHEMISTRY ORDERABLES Performing Organization Address [facility] Co de Phone Number [facility] [place] [address] * APTT (02/16/2024 6:02 PM EST) Partial Thromboplastin Time 31 25 - 37 sec 02/16/2024 6:47 PM EST [facility] Comment: The PTT is NOT appropriate for heparin monitoring. Use the Anti-Xa level for heparin monitoring (HEP UFH) or LMWH monitoring (HEP LMW). A PTT less than 37 seconds generally indicates adequate hemostasis. Blood VENOUS BLOOD SPECIMEN / Unknown Venipuncture / Unknown 02/16/2024 6:02 PM EST 02/16/2024 6:09 PM EST Emily Raymond MD HEMATOLOGY ORDERABLE S Performing Organization Address [facility] Co de Phone Number [facility] [place] [address] * POC, GLUCOSE (02/16/2024 5:56 PM EST) Glucometer, POC 183 65 - 199 mg/dL 02/16/2024 5:56 PM EST [facility] Comment:Supplemental ranges: <140 mg/dL before meals <180 mg/dL all other times of the day. Blood CAPILLARY BLOOD / Unknown 02/16/2024 5:56 PM EST 02/16/2024 5:56 PM EST Emily Raymond MD POINT OF CARE TEST O RDERABLES [facility] [place] [address] * (ABNORMAL) Blood Gas, Arterial POC (02/16/2024 3:42 PM EST) pH, Arterial 7.30(L) 7.35 - 7.45 02/16/2024 3:43 PM EST [facility] PCO2, Arterial 40 35 - 45 mmHg 02/16/2024 3:43 PM EST [facility] PO2, Arterial 220(H) 85 - 104 mmHg 02/16/2024 3:43 PM [facility] Bicarbonate, Arterial 19.4(L) 20.0 - 26.0 mmol/L 02/16/2024 3:43 PM [facility] Base Excess, Arterial -7.0(L) -3.0 - 3.0 mmol/L 02/16/2024 3:43 PM [facility] Hemoglobin, Arterial 10.5(L) 11.7 - 15.5 g/dL 02/16/2024 3:43 PM [facility] Oxyhemoglobin, Arterial 98.2(H) 94.0 - 97.0 % 02/16/2024 3:43 PM [facility] Carboxyhemoglobin , Arterial 0.6 % 02/16/2024 3:43 PM [facility] Comment: Nonsmokers: 0.5-1.5% COHB ?? Smokers: Variable ??but usually less than 10% ?? Toxic: 20-30% COHB ?? Lethal: Greater than 60% COHB Methemoglobin, Arterial 0.2 <=1.5 % 02/16/2024 3:43 PM EST [facility] Sodium, Arterial 136 135 - 145 mmol/L 02/16/2024 3:43 PM EST [facility] Potassium, Arterial 3.6 3.5 - 5.0 mmol/L 02/16/2024 3:43 PM EST [facility] Chloride, Arterial 110(H) 98 - 107 mmol/L 02/16/2024 3:43 PM EST [facility] Lactate, Arterial 1.4 0.5 - 2.2 mmol/L 02/16/2024 3:43 PM EST [facility] IONIZED CALCIUM, ARTERIAL 1.22 1.15 - 1.33 mmol/L 02/16/2024 3:43 PM [facility] Glucose, Arterial 176 65 - 199 mg/dL 02/16/2024 3:43 PM EST [facility] Comment:Glucose Concentratio n >=200 mg/dL plus symptoms is consistent with Diabetes Mellitus. Blood ARTERIAL BLOOD / Unknown 02/16/2024 3:42 PM EST 02/16/2024 3:43 PM EST Emily Raymond MD POINT OF CARE TEST O RDERABLES Performing Organization Address City/State/[place] Co de Phone Number [facility] [place] [address] * (ABNORMAL) Blood Gas, Arterial POC (02/16/2024 1:26 PM EST) pH, Arterial 7.31(L) 7.35 - 7.45 02/16/2024 1:27 PM [facility] PCO2, Arterial 41 35 - 45 mmHg 02/16/2024 1:27 PM [facility] PO2, Arterial 167(H) 85 - 104 mmHg 02/16/2024 1:27 PM [facility] Bicarbonate, Arterial 20.2 20.0 - 26.0 mmol/L 02/16/2024 1:27 PM [facility] Base Excess, Arterial -6.1(L) -3.0 - 3.0 mmol/L 02/16/2024 1:27 PM [facility] Hemoglobin, Arterial 11.8 11.7 - 15.5 g/dL 02/16/2024 1:27 PM [facility] Oxyhemoglobin, Arterial 97.5(H) 94.0 - 97.0 % 02/16/2024 1:27 PM [facility] Carboxyhemoglobin , Arterial 1.4 % 02/16/2024 1:27 PM [facility] Comment: Nonsmokers: 0.5-1.5% COHB ?? Smokers: Variable ??but usually less than 10% ?? Toxic: 20-30% COHB ?? Lethal: Greater than 60% COHB Methemoglobin, Arterial 0.1 <=1.5 % 02/16/2024 1:27 PM [facility] Sodium, Arterial 139 135 - 145 mmol/L 02/16/2024 1:27 PM [facility] Potassium, Arterial 3.4(L) 3.5 - 5.0 mmol/L 02/16/2024 1:27 PM [facility] Chloride, Arterial 109(H) 98 - 107 mmol/L 02/16/2024 1:27 PM [facility] Lactate, Arterial 0.9 0.5 - 2.2 mmol/L 02/16/2024 1:27 PM [facility] IONIZED CALCIUM, ARTERIAL 1.11(L) 1.15 - 1.33 mmol/L 02/16/2024 1:27 PM [facility] Glucose, Arterial 146 65 - 199 mg/dL 02/16/2024 1:27 PM [facility] Comment:Glucose Concentratio n >=200 mg/dL plus symptoms is consistent with Diabetes Mellitus. Blood ARTERIAL BLOOD / Unknown 02/16/2024 1:26 PM EST 02/16/2024 1:27 PM EST Emily Raymond MD POINT OF CARE TEST O RDERABLES [facility] [place] [address] * (ABNORMAL) Blood Gas, Arterial POC (02/16/2024 11:02 AM EST) pH, Arterial 7.36 7.35 - 7.45 02/16/2024 11:03 AM EST [facility] PCO2, Arterial 41 35 - 45 mmHg 02/16/2024 11:03 AM [facility] PO2, Arterial 78(L) 85 - 104 mmHg 02/16/2024 11:03 AM [facility] Bicarbonate, Arterial 22.5 20.0 - 26.0 mmol/L 02/16/2024 11:03 AM [facility] Base Excess, Arterial -2.9 -3.0 - 3.0 mmol/L 02/16/2024 11:03 AM [facility] Hemoglobin, Arterial 12.9 11.7 - 15.5 g/dL 02/16/2024 11:03 AM [facility] Oxyhemoglobin, Arterial 93.2(L) 94.0 - 97.0 % 02/16/2024 11:03 AM [facility] Carboxyhemoglobin , Arterial 1.9 % 02/16/2024 11:03 AM [facility] Comment: Nonsmokers: 0.5-1.5% COHB ?? Smokers: Variable ??but usually less than 10% ?? Toxic: 20-30% COHB ?? Lethal: Greater than 60% COHB Methemoglobin, Arterial 0.2 <=1.5 % 02/16/2024 11:03 AM [facility] Sodium, Arterial 139 135 - 145 mmol/L 02/16/2024 11:03 AM [facility] Potassium, Arterial 3.8 3.5 - 5.0 mmol/L 02/16/2024 11:03 AM [facility] Chloride, Arterial 108(H) 98 - 107 mmol/L 02/16/2024 11:03 AM [facility] Lactate, Arterial 0.9 0.5 - 2.2 mmol/L 02/16/2024 11:03 AM [facility] IONIZED CALCIUM, ARTERIAL 1.14(L) 1.15 - 1.33 mmol/L 02/16/2024 11:03 AM [facility] Glucose, Arterial 140 65 - 199 mg/dL 02/16/2024 11:03 AM [facility] Comment:Glucose Concentratio n >=200 mg/dL plus symptoms is consistent with Diabetes Mellitus. Blood ARTERIAL BLOOD / Unknown 02/16/2024 11:02 AM EST 02/16/2024 11:03 AM EST Emily Raymond MD POINT OF CARE TEST O RDERABLES [facility] [place] [address] * (ABNORMAL) Blood Gas, Arterial POC (02/16/2024 9:08 AM EST) pH, Arterial 7.38 7.35 - 7.45 02/16/2024 9:11 AM [facility] PCO2, Arterial 39 35 - 45 mmHg 02/16/2024 9:11 AM [facility] PO2, Arterial 225(H) 85 - 104 mmHg 02/16/2024 9:11 AM [facility] Bicarbonate, Arterial 22.7 20.0 - 26.0 mmol/L 02/16/2024 9:11 AM [facility] Base Excess, Arterial -2.5 -3.0 - 3.0 mmol/L 02/16/2024 9:11 AM [facility] Hemoglobin, Arterial 13.4 11.7 - 15.5 g/dL 02/16/2024 9:11 AM [facility] Oxyhemoglobin, Arterial 96.6 94.0 - 97.0 % 02/16/2024 9:11 AM [facility] Carboxyhemoglobin, Arterial 2.6 % 02/16/2024 9:11 AM [facility] Comment: Nonsmokers: 0.5-1.5% COHB ?? Smokers: Variable ??but usually less than 10% ?? Toxic: 20-30% COHB ?? Lethal: Greater than 60% COHB Methemoglobin, Arterial 0.1 <=1.5 % 02/16/2024 9:11 AM [facility] Sodium, Arterial 138 135 - 145 mmol/L 02/16/2024 9:11 AM EST [facility] Potassium, Arterial 3.8 3.5 - 5.0 mmol/L 02/16/2024 9:11 AM EST [facility] Chloride, Arterial 107 98 - 107 mmol/L 02/16/2024 9:11 AM EST [facility] Lactate, Arterial 1.1 0.5 - 2.2 mmol/L 02/16/2024 9:11 AM EST [facility] IONIZED CALCIUM, ARTERIAL 1.16 1.15 - 1.33 mmol/L 02/16/2024 9:11 AM EST [facility] Glucose, Arterial 108 65 - 199 mg/dL 02/16/2024 9:11 AM [facility] Comment:Glucose Concentratio n >=200 mg/dL plus symptoms is consistent with Diabetes Mellitus. Blood ARTERIAL BLOOD / Unknown 02/16/2024 9:08 AM EST 02/16/2024 9:11 AM EST Emily Raymond MD POINT OF CARE TEST O RDERABLES [facility] [place] [address] * ABORH RECHECK (PATIENT HISTORY FOUND) (02/16/2024 8:14 AM EST) [facility] ABOR Recheck Progress Complete 02/16/2024 12:01 PM EST [facility] Blood VENOUS BLOOD SPECIMEN / Unknown Venipuncture / Unknown 02/16/2024 8:14 AM EST 02/16/2024 9:22 AM EST Emily Raymond MD BLOOD BANK LAB ORDER MARILIN [facility] [place] [place] [address] * Type and screen ([facility]AD[facility]) (02/16/2024 8:14 AM EST) Pathologist [facility] ABORH Type B NEGATIVE 02/16/2024 10:54 AM EST [facility] PATIENT HISTORY Found 02/16/2024 10:54 AM EST [facility] Expires at 2359 on: 02/19/2024 02/16/2024 10:54 AM EST [facility] ANTIBODY SCREEN AUTOMATED Negative 02/16/2024 10:54 AM EST [facility] T&S only valid at [facility] 02/16/2024 10:54 AM EST [facility] Blood VENOUS BLOOD SPECIMEN / Unknown Venipuncture / Unknown 02/16/2024 8:14 AM EST 02/16/2024 9:22 AM EST Narrative [facility] - 02/16/2024 10:54 AM EST This Type and Screen result is only valid at the [facility] Emily Raymond MD BLOOD BANK LAB ORDER MARILIN Performing Organization Address City/State/[place] Co de Phone Number [facility] [place] [phone] * XR Fluoro No Rad <1Hr - OR Use (02/16/2024 7:48 AM EST) Narrative Dicom, Auditing User - 02/16/2024 7:49 AM EST This exam is auto-finalizing. No interpretation was done. 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 - Unless otherwise specified, when ordered PRN for pain, acetaminophen should be given first if other PRN pain medications are ordered., Routine Given 02/18/2024 5:44 AM EST 650 mg acetaminophen (Tylenol) tablet 650 mg 650 mg, Oral, EVERY 6 HOURS PRN, Starting on Thu02/23/24 at 0642, Until Thu02/24/24 at 0811, Pain, for mild pain, - Maximum dose of acetaminophen is 4,000 mg from all sources in 24 hours. - Unless otherwise specified, when ordered PRN for pain, acetaminophen should be given first if other PRN pain medications are ordered., Routine Given 02/24/2024 5:54 AM EST 650 mg Given 02/23/2024 6:50 AM EST 650 mg acetaminophen (Tylenol) tablet 975 mg 975 mg, Oral, EVERY 6 HOURS PRN, Starting on Thu02/16/24 at 2003, Until Thu02/17/24 at 1636, Pain, - Maximum dose of acetaminophen is 4,000 mg from all sources in 24 hours. - Unless otherwise specified, when ordered PRN for pain, acetaminophen should be given first if other PRN pain medications are ordered., Routine Given 02/17/2024 2:44 PM EST 975 mg acetaminophen (Tylenol) tablet 975 mg 975 mg, Oral, EVERY 6 HOURS SCHEDULED, First dose on Thu02/24/24 at 0830, Until Discontinued, - Maximum dose of acetaminophen is 4,000 mg from all sources in 24 hours. - Unless otherwise specified, when ordered PRN for pain, acetaminophen should be given first if other PRN pain medications are ordered., Routine Given 02/24/2024 8:59 AM EST 975 mg acetylcysteine (Mucomyst) 200 mg/mL (20 %) inhalation Solution 600 mg 600 mg, Inhalation, 2 TIMES DAILY, First dose on Thu02/19/24 at 0945, Until Discontinued, Notify Respiratory Care for Medication Administration For 300 mg doses: remove 1.5 mL of acetylcysteine and mix with 1.5 mL sterile water for injection and administer via inhalation route per order. For 600 mg doses: remove 3 mL of acetylcysteine and mix with 3 mL sterile water for injection and administer via inhalation route per order., Routine Given 02/20/2024 9:00 AM EST 600 mg Given 02/19/2024 8:16 PM EST 600 mg Given 02/19/2024 9:51 AM EST 600 mg aspirin chewable tablet 81 mg 81 mg, Oral, DAILY, First dose (after last modification) on 02/20/24 at 1145, Until Discontinued, Routine Given 02/24/2024 8:59 AM EST 81 mg Given 02/23/2024 8:06 AM EST 81 mg Given 02/22/2024 8:43 AM EST 81 mg aspirin suppository 300 mg 300 mg, Rectal, DAILY, First dose on Thu02/19/24 at 1245, Until Discontinued, Routine Given 02/19/2024 1:01 PM EST 300 mg azithromycin (Zithromax) tablet 500 mg 500 mg, Oral, DAILY, 3 doses, First dose on Opal 02/18/24 at 1215, Last dose on 02/20/24 at 0900, Give per OGT, Routine, Indication for (Active or Suspected): Pneumonia ([facility]) Given 02/20/2024 10:50 AM EST 500 mg Given 02/19/2024 8:26 AM EST 500 mg Given 02/18/2024 12:56 PM EST 500 mg bisacodyL (Dulcolax) suppository 10 mg 10 mg, Rectal, DAILY PRN, Starting on Thu02/19/24 at 0935, Until Thu02/24/24 at 1431, Constipation, Give if no BM within last 24 hr and rectal fullness is reported or assessed. Give concomitantly with any scheduled bowel medications ordered. , Routine Given 02/19/2024 10:10 AM EST 10 mg bisacodyL EC (Dulcolax) tablet 10 mg 10 mg, Oral, 2 TIMES DAILY PRN, Starting on Thu02/19/24 at 0935, Until Thu02/24/24 at 1431, Constipation, Give if no BM after 24 hr after prior interventions. BM expected in 6-8 hours. If BM desired sooner, use next ordered agent. Give concomitantly with any scheduled bowel medications ordered., Routine BUPivacaine (pf) 0.125 % in sodium chloride 0.9% 250 mL epidural (mixture) Epidural, Epidural Type: Continuous + PCEA, Continuous Rate: 6 mL/hr, PCEA Dose: 3 mL, PCEA Frequency: Every 20 minutes, 1 Hour Limit: 30 mL/hr, Maximum rate for continuous infusion is 16 mL per hour Maximum intermittent bolus is 15 mL Continuous = basal rate for epidural infusion PCEA (Patient Controlled Epidural Analgesia) = bolus from infusion delivered after patient presses demand button PIEB (Programmed Intermittent Epidural Bolus) = bolus from infusion delivered on a programmed frequency, Recovery (Recovery-Hospital Unit) New Bag 02/17/2024 9:00 AM EST BUPivacaine (pf) 0.125 % in sodium chloride 0.9% 250 mL epidural (mixture) Epidural, Epidural Type: Continuous + PCEA, Continuous Rate: 8 mL/hr, PCEA Dose: 3 mL, PCEA Frequency: Every 20 minutes, 1 Hour Limit: 30 mL/hr, Maximum rate for continuous infusion is 16 mL per hour Maximum intermittent bolus is 15 mL Continuous = basal rate for epidural infusion PCEA (Patient Controlled Epidural Analgesia) = bolus from infusion delivered after patient presses demand button PIEB (Programmed Intermittent Epidural Bolus) = bolus from infusion delivered on a programmed frequency, Recovery (Recovery-Hospital Unit) New Bag 02/18/2024 9:39 AM EST 8 mL/hr Rate/Dose Change 02/17/2024 6:51 PM EST BUPivacaine (pf) 0.125 % in sodium chloride 0.9% 250 mL epidural (mixture) Epidural, Epidural Type: Continuous + PCEA, Continuous Rate: 2 mL/hr, PCEA Dose: 3 mL, PCEA Frequency: Every 20 minutes, 1 Hour Limit: 30 mL/hr, Maximum rate for continuous infusion is 16 mL per hour Maximum intermittent bolus is 15 mL Continuous = basal rate for epidural infusion PCEA (Patient Controlled Epidural Analgesia) = bolus from infusion delivered after patient presses demand button PIEB (Programmed Intermittent Epidural Bolus) = bolus from infusion delivered on a programmed frequency, Recovery (Recovery-Hospital Unit) New Bag 02/20/2024 8:19 AM EST 2 mL/h r New Bag 02/19/2024 8:28 AM EST 2 mL/hr Continued Bag 02/18/2024 12:25 PM EST BUPivacaine (pf) 0.125 % in sodium chloride 0.9% 250 mL epidural (mixture) Epidural, Epidural Type: PCEA Only, PCEA Dose: 3 mL, PCEA Frequency: Every 20 minutes, 1 Hour Limit: 30 mL/hr, Maximum rate for continuous infusion is 16 mL per hour Maximum intermittent bolus is 15 mL Continuous = basal rate for epidural infusion PCEA (Patient Controlled Epidural Analgesia) = bolus from infusion delivered after patient presses demand button PIEB (Programmed Intermittent Epidural Bolus) = bolus from infusion delivered on a programmed frequency, Recovery (Recovery-Hospital Unit) New Bag 02/21/2024 7:47 AM EST Rate/Dose Change 02/21/2024 7:09 AM EST ceFAZolin (Ancef) 1 g vial attached to sodium chloride 0.9% 50 mL Mini-Bag Plus 1 g, Intravenous, EVERY 8 HOURS, 3 doses, First dose on Thu02/16/24 at 2000, Last dose on Thu02/17/24 at 1200, Administer over 30 Minutes, Indication for (Active or Suspected): Other (See comment) / graft New Bag 02/17/2024 12:02 PM EST 1 g 10 0 mL/hr New Bag 02/17/2024 3:59 AM EST 1 g 100 mL/hr New Bag 02/16/2024 8:39 PM EST 1 g 100 mL/hr chlorhexidine (Peridex) 0.12 % oral solution 15 mL 15 mL, Oral, 2 TIMES DAILY, First dose on Thu02/19/24 at 1000, Until Discontinued, Routine Given 02/20/2024 10:53 AM EST 15 mLs Given 02/19/2024 8:05 PM EST 15 mLs Given 02/19/2024 10:10 AM EST 15 mLs dexmedeTOMIDine (Precedex) (4 mcg/mL) in sodium chloride 0.9% 100 mL infusion 0-1.7 mcg/kg/hr ? 59.8 kg (0-25.415 mL/hr, rounded to 0-25.4 mL/hr), Intravenous, CONTINUOUS, Starting on Thu02/19/24 at 0945, Until Thu02/21/24 at 0329, Titrate to sedation level of RASS Goal (-)1 to 0. Start at 0.4 mcg/kg/hr. Increase/decrease by 0.4 mcg/kg/hr every 15 minutes until goal reached. Once stable, reassess patient every 30 minutes. Do not exceed 1.7 mcg/kg/hr. Change rate only after assessing and documenting RASS. Reassess sedation scores within 30 minutes after every rate change. If under sedated, increase rate by 0.4 mcg/kg/hr. If over sedated, hold sedative until target RASS (-)1 to 0 achieved and then restart at 50% of previous rate. Call clubhouse manager if goal not achieved at maximum rate. If SAT is ordered, and if patient meets criteria for Spontaneous Awakening Trial, titrate per protocol., Routine, Please indicate the name & specialty of the Attending Provider who authorized the use of this medication: Dr. Perez, Critical Care Rate/Dose Change 02/20/2024 1:00 PM EST 0.2 mcg/kg/hr 3 mL/hr New Bag 02/20/2024 12:00 AM EST 0.4 mcg/kg/hr 6 mL/hr Rate/Dose Verify 02/19/2024 6:00 PM EST 0.4 mcg/kg/hr 6 mL /hr Diet Tube Feed: Peptamen AF (hydrolyzed protein) (1.2 kcal/mL) at 10 mL/hr, Administer over 24 Hours, Per OG Tube, CONTINUOUS (TUBE FEED), Starting on Thu02/19/24 at 1530, Until Thu02/20/24 at 1114, Administer flushes and check residuals per policy. Rate/Dose Verify 02/19/2024 6:00 PM EST 10 mL/hr New Bag 02/19/2024 3:33 PM EST 10 mL/hr diphenhydrAMINE (Benadryl) (50 mg/mL) injection 25 mg 25 mg, Intravenous, ONCE PRN, 1 dose, Starting on Thu02/16/24 at 2000, Until Thu02/24/24 at 1431, For evidence of allergic reaction (new rash, wide spread itching, facial swelling, etc), If used, please let MD know immediately , Routine famotidine (Pepcid) tablet 20 mg 20 mg, Oral, 2 TIMES DAILY, First dose on Thu02/16/24 at 1900, Until Discontinued, Routine Given 02/24/2024 8:5 9 AM EST 20 mg Given 02/23/2024 8:49 PM EST 20 mg Given 02/23/2024 8:06 AM EST 20 mg fentaNYL (50 mcg/mL) bolus from infusion 25 mcg 25 mcg, Intravenous, ONCE, 1 dose, On Oapl 02/18/24 at 0900, Initial bolus dose: IV once now followed by continuous infusion, Routine Bolus from Infusion 02/18/2024 9:36 AM EST 25 mcg fentaNYL (PF) (50 mcg/mL) infusion syringe 50 mL 0-200 mcg/hr (0-4 mL/hr), Intravenous, CONTINUOUS, Starting on Opal 02/18/24 at 0900, Until Thu02/19/24 at 1117, Titrate to pain scale goal less than or equal to 3, or to patient verbalized goal. Initial infusion rate: 50 mcg/hr. Rate not to exceed 200 mcg/hr. If current range rate is 25-100 mcg/hr: Bolus with 50 mcg for each infusion increase. Titrate infusion by 25 mcg/hr to reach goal. If current range rate is 101-200 mcg/hr: Bolus with 100 mcg for each infusion increase. Titrate infusion by 50 mcg/hr to reach goal. If pain still not controlled at 200 mcg/hr, or increase exceeds the maximum range in the order, contact provider for a new order. Assess pain once, 15-30 minutes after infusion initiation, bolus administrations, or infusion titration. Once stable, assess pain every 1-2 hours. Pain assessment MUST be documented prior to rate change., Routine Rate/Dose Verify 02/19/2024 8:00 AM EST 25 mcg/hr 0.5 mL/hr Rate/Dose Verify 02/19/2024 6:00 AM EST 25 mcg/hr 0.5 mL/ hr Rate/Dose Verify 02/19/2024 4:00 AM EST 25 mcg/hr 0.5 mL/ hr fentaNYL (PF) (50 mcg/mL) injection 50 mcg 50 mcg, Intravenous, EVERY 3 MIN PRN, Starting on Thu02/16/24 at 0644, Until Thu02/16/24 at 0756, Pain, Day of Surgery (Day of Procedure), Routine Given 02/16/2024 7:15 AM EST 50 mcg Given 02/16/2024 7:12 AM EST 50 mcg free water for feeding tube 30 mL 30 mL, FEEDING TUBE, EVERY 4 HOURS SCHEDULED, First dose on Thu02/19/24 at 1600, Until Discontinued, Routine Given 02/20/2024 4:00 AM EST 30 mLs Given 02/20/2024 12:00 AM EST 30 mLs Given 02/19/2024 8:00 PM EST 30 mLs heparin (porcine) (5,000 units/1 mL) subcutaneous injection 5,000 Units 5,000 Units, Subcutaneous, EVERY 8 HOURS SCHEDULED, First dose on Thu02/17/24 at 0800, Until Discontinued, Routine Given 02/24/2024 5:54 AM EST 5,000 Unit s Given 02/23/2024 9:00 PM EST 5,000 Units Given 02/23/2024 2:01 PM EST 5,000 Units HYDROmorphone (PF) (Dilaudid) injection 0.2 mg 0.2 mg, Epidural, ONCE, 1 dose, On Thu02/16/24 at 0715, Day of Surgery (Day of Procedure), Routine Given 02/16/2024 7:45 AM EST 0.2 mg insulin lispro (HumaLOG;Admelog) (100 unit/mL) subcutaneous injection vial 1-4 Units 1-4 Units, Subcutaneous, EVERY 4 HOURS SCHEDULED, First dose on Thu02/16/24 at 2030, Until Discontinued, CORRECTION BOLUS [1-4 Units] Sensitive Sliding Scale (BG in mg/dL): Correction factor 40 (1 unit of insulin is expected to drop the glucose 40 mg/dL) ?? BG 160 - 200 Give 1 unit BG 201 - 240 Give 2 units BG 241 - 280 Give 3 units and recheck BG in 2 hours. BG greater than 280, give 4 units and recheck BG in 2 hours. - If recheck BG is LESS than 280, give no insulin and resume schedule - If recheck BG is GREATER than or EQUAL to 280, give 4 units and repeat BG in 2 hours (no more than 3 times)??& call for new insulin orders. DO NOT hold if NPO, unless specifically directed to do so by written order. ?? Per Inpatient Subcutaneous Insulin Policy, recheck a BG of greater than 240 mg/dL in 2 hours., Routine Given 02/18/2024 8:00 AM EST 1 Units iohexoL (Omnipaque) (350 mg/mL) solution 0-200 mL 0-200 mL, Intravenous, ONCE PRN, 1 dose, Starting on Thu02/17/24 at 2353, Until Opal 02/18/24 at 0000, Per Protocol, Warning Vesicant/Irritant Medication , Radiology Contrast, Routine Given 02/18/2024 12:00 AM EST 46 mLs ipratropium-albuteroL (Duoneb) 0.5 mg-3 mg(2.5 mg base)/3 mL nebulizer solution 3 mL 3 mL, Nebulization, EVERY 4 HOURS SCHEDULED, First dose on Thu02/17/24 at 2145, Until Discontinued, Routine Given 02/24/2024 7:47 AM EST 3 mLs Given 02/24/2024 4:25 AM EST 3 mLs Given 02/23/2024 11:21 PM EST 3 mLs lactated Ringers 500 mL IV bolus Intravenous, ONCE, 1 dose, On Thu02/18/24 at 0915 New Bag 02/18/2024 9:17 AM EST lactated Ringers 500 mL IV bolus Intravenous, ONCE, 1 dose, On Thu02/18/24 at 1145 New Bag 02/18/2024 11:27 AM EST lactated Ringers 500 mL IV bolus Intravenous, ONCE, 1 dose, On Thu02/18/24 at 1630 New Bag 02/18/2024 4:06 PM EST lactated Ringers 500 mL IV bolus Intravenous, ONCE, 1 dose, On Thu02/23/24 at 2245 New Bag 02/23/2024 11:10 PM EST lactated ringers infusion 200 mL/hr, Intravenous, CONTINUOUS, Starting on Thu02/16/24 at 1800, Until Thu02/17/24 at 0809 New 02/16/2024 6:03 PM EST 200 mL/hr 200 mL/hr lactated ringers infusion 100 mL/hr, Intravenous, CONTINUOUS, Starting on Thu02/17/24 at 0830, Until Thu02/17/24 at 1512 New 02/17/2024 10:21 AM EST 100 mL/hr 100 mL/hr Rate/Dose Change 02/17/2024 8:30 AM EST 100 mL/hr 100 mL/ hr lactated ringers infusion 50 mL/hr, Intravenous, CONTINUOUS, Starting on Thu02/17/24 at 2045, Until Thu02/18/24 at 0456 Rate/Dose Change 02/17/2024 10:47 PM EST 50 mL/hr 50 mL/hr New 02/17/2024 9:50 PM EST 100 mL/hr 100 mL/hr lactated ringers infusion 50 mL/hr, Intravenous, CONTINUOUS, Starting on Thu02/18/24 at 0915, Until Thu02/19/24 at 0931 Rate/Dose Verify 02/19/2024 8:00 AM EST 50 mL/hr 50 mL/hr Rate/Dose Verify 02/18/2024 4:13 PM EST 50 mL/hr 50 mL/h r Rate/Dose Verify 02/18/2024 12:00 PM EST 50 mL/hr 50 mL/ hr lactulose (Chronulac) (0.67 gram/mL) oral liquid 20 g 20 g, Oral, DAILY PRN, Starting on Thu02/19/24 at 0935, Until Thu02/24/24 at 1431, Constipation, Give if no BM 24 hr after prior interventions or if BM is desired within 2 hr. Give concomitantly with any scheduled bowel medications ordered, Routine lactulose (Chronulac) (0.67 gram/mL) oral liquid 20 g 20 g, Oral, DAILY PRN, Starting on Thu02/19/24 at 0935, Until Thu02/24/24 at 1431, Constipation, Give an additional (2nd) dose of lactulose 2 hr after 1st dose if still no BM. Disregard if 1st dose of lactulose not ordered. Give concomitantly with any scheduled bowel medications ordered. , Routine lidocaine (Lidoderm) 5% patch 1 patch 1 patch, Transdermal, Administer over 12 Hours, DAILY, First dose on Thu02/21/24 at 0915, Until Discontinued, Apply patch(es) for 12 hours, and then remove for 12 hours., Routine Patch Applied 02/24/2024 9:00 AM EST 1 patch 13- Abdomen (Left) Patch Applied 02/23/2024 8:06 AM EST 1 patch 05- Back Upper (Left) Patch Applied 02/22/2024 8:43 AM EST 1 patch 05- Back Upper (Left) lidocaine (Xylocaine) 1% (10 mg/mL) injection 3 mg 3 mg (0.3 mL), Subcutaneous, ONCE PRN, 1 dose, Starting on Thu02/16/24 at 0609, Until Thu02/24/24 at 1431, for discomfort with PIV insertion, Day of Surgery (Day of Procedure), Routine lidocaine (Xylocaine) 1% (10 mg/mL) injection 3 mg 3 mg (0.3 mL), Subcutaneous, ONCE PRN, 1 dose, Starting on Thu02/15/24 at 2031, Until Thu02/24/24 at 1431, for discomfort with PIV insertion, Routine lidocaine (Xylocaine) 1% (10 mg/mL) injection 3 mg 3 mg (0.3 mL), Subcutaneous, ONCE PRN, 1 dose, Starting on Thu02/16/24 at 0609, Until Thu02/24/24 at 1431, for discomfort with PIV insertion, Recovery (Recovery-Hospital Unit), Routine loratadine (Claritin) tablet 10 mg 10 mg, Oral, DAILY, First dose on Thu02/16/24 at 1915, Until Discontinued, Routine Given 02/24/2024 8:59 AM EST 10 mg Given 02/23/2024 8:06 AM EST 10 mg Given 02/22/2024 8:43 AM EST 10 mg magnesium citrate oral liquid 296 mL 296 mL, Oral, ONCE PRN, 1 dose, Starting on Thu02/19/24 at 0935, Until Thu02/24/24 at 1431, Constipation, Give if no BM 2 hr after previous interventions. If 2 hr after mag citrate there is still no BM, see order for tap water enema, if placed. Give concomitantly with any scheduled bowel medications ordered., Routine melatonin tablet 3 mg 3 mg, Oral, NIGHTLY PRN, Starting on Thu02/22/24 at 2045, Until Thu02/24/24 at 1431, Sleep, Routine Given 02/22/2024 9:03 PM EST 3 mg midazolam (pf) (Versed) (1 mg/mL) injection 1 mg 1 mg, Intravenous, EVERY 3 MIN PRN, Starting on Thu02/16/24 at 0644, Until Thu02/16/24 at 0756, Sleep, Anxiety, Other, epidural placement, Day of Surgery (Day of Procedure), Routine Given 02/16/2024 7:21 AM EST 1 mg Given 02/16/2024 7:15 AM EST 1 mg Given 02/16/2024 7:12 AM EST 1 mg montelukast (Singulair) chewable tablet 5 mg 5 mg, Oral, NIGHTLY, First dose on Thu02/16/24 at 2100, Until Discontinued, Routine Given 02/23/2024 8:49 PM EST 5 mg Given 02/22/2024 8:20 PM EST 5 mg Given 02/21/2024 9:51 PM EST 5 mg NORepinephrine (Levophed) (16 mcg/mL) in dextrose 5% 250 mL infusion 0-100 mcg/min (0-375 mL/hr), Intravenous, CONTINUOUS, Starting on Opal 02/18/24 at 0430, Until Thu02/23/24 at 1822, Titrate to keep MAP greater than 60 mmHg. Start at 2 mcg/min. Increase/decrease by 2 mcg/min every 3 minutes until goal reached. Do not exceed 200 mcg/min. Warning Vesicant/Irritant Medication, Routine Rate/Dose Change 02/23/2024 12:00 PM EST 2 mcg/min 7.5 mL/hr Rate/Dose Change 02/23/2024 9:56 AM EST 4 mcg/min 15 mL/h r Rate/Dose Change 02/23/2024 9:18 AM EST 6 mcg/min 22.5 mL /hr NORepinephrine (Levophed) 4 mg/250 mL (16 mcg/mL) infusion 1 dose, Starting on Thu02/18/24 at 0214, Until Thu02/18/24 at 0428, Alicja Macias: cabinet override ondansetron (pf) (Zofran) (2 mg/mL) injection 4 mg 4 mg, Intravenous, ONCE, 1 dose, On Thu02/16/24 at 0715, Day of Surgery (Day of Procedure) Given 02/16/2024 7:10 AM EST 4 mg ondansetron (pf) (Zofran) (2 mg/mL) injection 4 mg 4 mg, Intravenous, EVERY 8 HOURS PRN, Starting on Thu02/17/24 at 0700, Until Thu02/24/24 at 1431, Nausea Given 02/17/2024 7:11 AM EST 4 mg piperacillin-tazobactam (Zosyn) 3.375 g vial attach to sodium chloride 0.9% 50 mL Mini-Bag Plus 3.375 g, Intravenous, EVERY 8 HOURS, 19 doses, First dose (after last reorder) on Thu02/18/24 at 1600, Last dose on Thu02/24/24 at 1600, Administer over 4 Hours, Warning Vesicant/Irritant Medication Per candy supervisor labeling, do not administer or Y-site with lactated ringers., Indication for (Active or Suspected): Pneumonia ([facility]Care) New Bag 02/24/2024 7:47 AM EST 3.375 g 12.5 mL/hr New Bag 02/23/2024 11:17 PM EST 3.375 g 12.5 mL/hr New Bag 02/23/2024 4:02 PM EST 3.375 g 12.5 mL/hr piperacillin-tazobactam (Zosyn) 4.5 g vial attach to sodium chloride 0.9% 100 mL Mini-Bag Plus 4.5 g, Intravenous, ONCE, 1 dose, On Opal 02/18/24 at 1215, Administer over 0.5 Hours, Warning Vesicant/Irritant Medication Per candy supervisor labeling, do not administer or Y-site with lactated ringers., Indication for (Active or Suspected): Pneumonia ([facility]) New Bag 02/18/2024 12:05 PM EST 4.5 g 200 mL/hr polyethylene glycoL (Miralax) packet 17 g 17 g, Oral, DAILY PRN, Starting on Thu02/19/24 at 0935, Until 02/24/24 at 1431, Constipation, Give if no BM within last 24 hr. Give concomitantly with any scheduled bowel medications ordered. , Routine potassium chloride 20 mEq in sterile water 100 mL infusion 20 mEq, Intravenous, EVERY 1 HOUR PRN, Starting on 02/20/24 at 1212, Until 02/22/24 at 0148, Administer over 60 Minutes, hypokalemia, Administer 2 doses for a serum potassium (mMol/L) of 3.3 - 3.8 potassium chloride 20 meq/100 mL bags must be infused through a CENTRAL LINE New Bag 02/21/2024 5:20 AM EST 20 mEq 100 mL/h r New Bag 02/21/2024 4:11 AM EST 20 mEq 100 mL/hr New Bag 02/20/2024 1:37 PM EST 20 mEq 100 mL/hr potassium chloride ER (Klor-Con M) crystal tablet 40 mEq 40 mEq, Per G Tube, EVERY 4 HOURS PRN, Starting on Thu02/19/24 at 0107, Until 02/20/24 at 1209, hypokalemia, Administer for serum potassium (mMol/L) of 3.6 - 3.8 potassium chloride ER particle/crystal tablets (Klor-Con M) may be broken in half and each half swallowed separately. Tablets can be dissolved in ~4 ounces of water; allow ~2 minutes to dissolve, stir well and drink immediately. Do not crush, chew, or suck on tablet., Routine Given 02/20/2024 5:28 AM EST 40 mEq Given 02/19/2024 4:00 AM EST 40 mEq potassium chloride ER (Klor-Con M) crystal tablet 40-60 mEq 40-60 mEq, Oral, PER POTASSIUM PROTOCOL, Starting on Thu02/22/24 at 0148, Until Thu02/24/24 at 1431, potassium replenishment, DO NOT CRUSH OR OPEN For serum potassium (mMol/L) of 3.3-3.8 administer Potassium oral liquid or ER tablets 40 mEq. For serum potassium (mMol/L) of 2.8-3.2 administer Potassium oral liquid or ER tablets 60 mEq. For serum potassium less than 2.8 Call provider for potassium dosing. potassium chloride ER particle/crystal tablets (Klor-Con M) may be broken in half and each half swallowed separately. Tablets can be dissolved in ~4 ounces of water; allow ~2 minutes to dissolve, stir well and drink immediately. Do not crush, chew, or suck on tablet., Routine Given 02/24/2024 4:19 AM EST 40 mEq Given 02/22/2024 5:12 AM EST 40 mEq potassium, sodium phosphates (Neutra-Phos) 280-160-250 mg oral packet 1.5 g 1.5 g, Oral, DAILY PRN, Starting on Thu02/19/24 at 0107, Until 02/20/24 at 1213, hypophosphatemia, Administer one 1.5 g packet for serum phosphate 2-2.4 mg/dL. *If serum phosphorus LESS than 1 mg/dL, contact provider for IV phosphate repletion orders., Routine Given 02/19/2024 4:00 AM EST 1.5 g prochlorperazine (Compazine) (5 mg/mL) injection 10 mg 10 mg, Intravenous, EVERY 6 HOURS PRN, Starting on Thu02/17/24 at 0917, Until Thu02/24/24 at 1431, Nausea, If multiple antiemetics are ordered, use ondansetron first. ??If ondansetron ineffective use prochlorperazine. ?? PO Preferred. If patient unable to take PO, may give IV if ordered., Routine Given 02/17/2024 9:33 AM EST 10 mg propofoL (Diprivan) (10 mg/mL) bolus from infusion 10 mg 10 mg, Intravenous, EVERY 10 MIN PRN, Starting on Opal 02/18/24 at 0407, Until Thu02/19/24 at 1658, SAT resedation, Administer bolus dose of propofoL of 10 mg. PropofoL bolus may be repeated for an additional 10 mg. Wait 5 to 10 minutes to see onset effect from 1st bolus. Do not administer more than 20 mg in a 4 hour period., Routine Bolus from Infusion 02/18/2024 7:58 AM EST 10 mg Bolus from Infusion 02/18/2024 7:06 AM EST 10 mg propofoL (Diprivan) (10 mg/mL) infusion 0-50 mcg/kg/min ? 59.7 kg (0-17.91 mL/hr, rounded to 0-17.9 mL/hr), Intravenous, CONTINUOUS, Starting on Opal 02/18/24 at 0430, Until Thu02/19/24 at 1658, Titrate to sedation level of RASS Goal (-)1 to 0 . Start at 20 mcg/kg/min. Increase/decrease 10 mcg/kg/min every 3 minutes until goal reached. Once stable, reassess patient every 30 minutes. Do not exceed 50 mcg/kg/minute. Change rate only after assessing and documenting RASS. Reassess sedation scores within 30 minutes after every rate change. If under sedated, increase rate by 10 mcg/kg/min. If over sedated, hold sedative until target RASS (-)1 to 0 achieved and then restart at 50% of previous rate. Call clubhouse manager if goal not achieved at maximum rate. If SAT is ordered and if patient meets criteria for Spontaneous Awakening Trial, titrate per protocol., Routine Rate/Dose Change 02/19/2024 11:17 AM EST 10 mcg/kg/min 3.6 mL/hr Rate/Dose Change 02/19/2024 10:46 AM EST 20 mcg/kg/min 7.2 mL/hr Rate/Dose Verify 02/19/2024 8:00 AM EST 30 mcg/kg/min 10.7 mL/hr propofoL (Diprivan) 10 mg/mL infusion 1 dose, Starting on Opal 02/18/24 at 0213, Until Opal 02/18/24 at 0427, Alicja Macias: cabinet override senna-docusate (Pericolace) 8.6-50 mg per tablet 2 tablet 2 tablet, Oral, 2 TIMES DAILY, First dose on Thu02/19/24 at 1000, Until Discontinued, Hold for loose stool. , Routine Given 02/21/2024 8:17 AM EST 2 tablets Given 02/20/2024 9:08 PM EST 2 tablets Given 02/20/2024 10:50 AM EST 2 tablets senna-docusate (Pericolace) 8.6-50 mg per tablet 2 tablet 2 tablet, Oral, 2 TIMES DAILY PRN, Starting on Thu02/24/24 at 0825, Until Thu02/24/24 at 1431, Constipation, Routine sodium chloride (NebuSal) 3 % nebulizer solution 4 mL 4 mL, Nebulization, EVERY 8 HOURS, First dose on Thu02/17/24 at 2200, Until Discontinued, Routine Given 02/24/2024 7:48 AM EST 4 mLs Given 02/23/2024 11:21 PM EST 4 mLs Given 02/23/2024 3:45 PM EST 4 mLs sodium chloride 0.9 % (flush) (BD PosiFlush Normal Saline 0.9) flush 5 mL 5 mL, Intravenous, 2 TIMES DAILY, First dose on Thu02/15/24 at 2100, Until Discontinued, Routine Given 02/23/2024 8:49 PM EST 5 mLs Given 02/23/2024 8:08 AM EST 5 mLs Given 02/22/2024 8:40 PM EST 5 mLs sodium chloride 0.9 % (flush) (BD PosiFlush Normal Saline 0.9) flush 5 mL 5 mL, Intravenous, 2 TIMES DAILY, First dose on Thu02/16/24 at 0900, Until Discontinued, Recovery (Recovery-Hospital Unit), Routine Given 02/23/2024 8:49 PM EST 5 mLs Given 02/23/2024 8:09 AM EST 5 mLs Given 02/22/2024 8:40 PM EST 5 mLs sodium chloride 0.9 % (flush) (BD PosiFlush Normal Saline 0.9) flush 5-20 mL 5-20 mL, Intravenous, EVERY 1 MIN PRN, Starting on Thu02/16/24 at 0609, Until Thu02/24/24 at 1431, flush, Flush pertains to all indwelling lines. Flush per protocol found in the job aid using the link provided on this medication record., Day of Surgery (Day of Procedure), Routine tiZANidine (Zanaflex) tablet 4 mg 4 mg, Oral, 3 TIMES DAILY, First dose on 02/21/24 at 0945, Until Discontinued, Routine Given 02/23/2024 8:05 AM EST 4 mg Given 02/22/2024 8:20 PM EST 4 mg Given 02/22/2024 3:37 PM EST 4 mg traZODone (Desyrel) tablet 50 mg 50 mg, Oral, NIGHTLY PRN, Starting on Thu02/23/24 at 1009, Until Thu02/24/24 at 1431, Sleep, Routine Given 02/23/2024 9:51 PM EST 50 mg vancomycin (Vancocin) 1.5 gram in sodium chloride 0.9% 500 mL infusion 1.5 g, Intravenous, at 333.3 mL/hr, ONCE, 1 dose, On Opal 02/18/24 at 1215, Maximum infusion rate is 1 gram/hour. If flushing of the face, neck, upper body, arms, and/or back occurs decrease infusion rate by 50% to reduce the severity of symptoms. This medication may have an associated drug lab level. Please see MAR for scheduled level. Warning Vesicant/Irritant Medication , Routine, Indication for (Active or Suspected): Other (See comment) New Bag 02/18/2024 12:00 PM EST 1.5 g 333.3 mL/hr documented in this encounter Active and Recently Administered Medications Times are shown in EST. Scheduled Medication Order 02/22/2024 02/23/2024 02/24/2024 acetaminophen (Tylenol) tablet 975 mg 975 mg, Oral, EVERY 6 HOURS SCHEDULED, First dose on Thu02/24/24 at 0830, Until Discontinued, - Maximum dose of acetaminophen is 4,000 mg from all sources in 24 hours. - Unless otherwise specified, when ordered PRN for pain, acetaminophen should be given first if other PRN pain medications are ordered., Routine 0859 (Given - Provider: Harley Montanez RN)1200 (Due) aspirin chewable tablet 81 mg 81 mg, Oral, DAILY, First dose (after last modification) on Thu02/20/24 at 1145, Until Discontinued, Routine 0843 (Given - Provider: Alia Ochoa RN) 0806 (Given - Provider: Klaus Moreno, NEYDA) 0859 (Given - Provider: Harley Montanez, NEYDA) famotidine (Pepcid) tablet 20 mg 20 mg, Oral, 2 TIMES DAILY, First dose on Thu02/16/24 at 1900, Until Discontinued, Routine 0843 (Given - Provider: Alia Ochoa RN)2019 (Given - Provider: Jacquelin Lam RN) 0806 (Given - Provider: Klaus Moreno, NEYDA)2049 (Given - Provider: Elana Maldonado, NEYDA) 0859 (Given - Provider: Harley Montanez RN) heparin (porcine) (5,000 units/1 mL) subcutaneous injection 5,000 Units 5,000 Units, Subcutaneous, EVERY 8 HOURS SCHEDULED, First dose on Thu02/17/24 at 0800, Until Discontinued, Routine 0507 (Given - Provider: Reyes Kemp RN)1301 (Given - Provider: Alia Ochoa RN)2139 (Given - Provider: Jacquelin Lam RN) 0634 (Given - Provider: Jacquelin Lam RN)1401 (Given - Provider: Klaus Moreno, NEYDA)2100 (Given - Provider: Elana Maldonado, NEYDA) 0554 (Given - Provider: Elana Maldonado RN) ipratropium-albuteroL (Duoneb) 0.5 mg-3 mg(2.5 mg base)/3 mL nebulizer solution 3 mL 3 mL, Nebulization, EVERY 4 HOURS SCHEDULED, First dose on Thu02/17/24 at 2145, Until Discontinued, Routine 0001 (Given - Provider: Reyes Kemp RN)0400 (Not Given - Provider: Reyse Kemp RN - Reason: Patient/family refused)0800 (Given - Provider: Liu Koroma RCP)1300 (Given - Provider: Alia Ochoa RN)1600 (Given - Provider: Liu Koroma RCP)2045 (Given - Provider: Jacquelin Lam RN) 0000 (Hold - Provider: Jacquelin Lam RN - Reason: Patient/family refused)0400 (Hold - Provider: Jacquelin Lam RN - Reason: Patient/family refused)0811 (Given - Provider: Klaus Moreno RN)1200 (Given - Provider: Cecilio Mayes RCP)1545 (Given - Provider: Cecilio Mayes RCP)1950 (Given - Provider: Elana Maldonado RN)2321 (Given - Provider: Elana Maldonado RN) 0352 (Not Given - Provider: Elana Maldonado RN - Reason: Patient/family refused)0425 (Given - Provider: Elana Maldonado RN)0747 (Given - Provider: Harley Montanez RN)1200 (Due) lactated Ringers 500 mL IV bolus (COMPLETED) Intravenous, ONCE, 1 dose, On Thu02/23/24 at 2245 2310 (New Bag - Provider: Elana Maldonado RN) lidocaine (Lidoderm) 5% patch 1 patch 1 patch, Transdermal, Administer over 12 Hours, DAILY, First dose on Thu02/21/24 at 0915, Until Discontinued, Apply patch(es) for 12 hours, and then remove for 12 hours., Routine 0843 (Patch Applied - Provider: Alia Ochoa RN)2042 (Patch Removed - Provider: Jacquelin Lam RN) 0806 (Patch Applied - Provider: Klaus Moreno RN)1947 (Patch Removed - Provider: Elana Maldonado RN) 0900 (Patch Applied - Provider: Harley Montanez RN)1200 (Due: Patch Removed - Provider: Automatic Discharge Provider - Comment: Time automatically adjusted from order being discontinued) loratadine (Claritin) tablet 10 mg 10 mg, Oral, DAILY, First dose on Thu02/16/24 at 1915, Until Discontinued, Routine 0843 (Given - Provider: Alia Ochoa RN) 0806 (Given - Provider: Klaus Moreno RN) 0859 (Given - Provider: Harley Montanez RN) montelukast (Singulair) chewable tablet 5 mg 5 mg, Oral, NIGHTLY, First dose on Thu02/16/24 at 2100, Until Discontinued, Routine 2019 (Given - Provider: Jacquelin Lam RN) 2048 (Given - Provider: Elana Maldonado RN) piperacillin-tazobactam (Zosyn) 3.375 g vial attach to sodium chloride 0.9% 50 mL Mini-Bag Plus (CANCELED) 3.375 g, Intravenous, EVERY 8 HOURS, 19 doses, First dose (after last reorder) on Thu02/18/24 at 1600, Last dose on Thu02/24/24 at 1600, Administer over 4 Hours, Warning Vesicant/Irritant Medication Per candy supervisor labeling, do not administer or Y-site with lactated ringers., Indication for (Active or Suspected): Pneumonia ([facility]) 0000 (New Bag - Provider: Reyes Kemp RN)0400 (Stopped - Provider: Reyes Kemp RN)0854 (New Bag - Provider: Alia Ochoa RN)1254 (Stopped - Provider: Alia Ochoa RN)1536 (New Bag - Provider: Alia Ochoa RN)1936 (Stopped - Provider: Jacquelin Lam RN) 0014 (New Bag - Provider: Jacquelin Lam RN)0414 (Stopped - Provider: Jacquelin Lam RN)0806 (New Bag - Provider: Klaus Moreno RN)1206 (Stopped - Provider: Klaus Moreno RN)1602 (New Bag - Provider: Klaus Moreno RN)2002 (Stopped - Provider: Elana Maldonado RN)2317 (New Bag - Provider: Elana Maldonado RN) 0317 (Stopped - Provider: Elana Maldonado RN)0747 (New Bag - Provider: Harley Montanez, NEYDA)0953 (Stopped - Provider: Harley Montanez RN - Comment: Time automatically adjusted from order being discontinued) sodium chloride (NebuSal) 3 % nebulizer solution 4 mL 4 mL, Nebulization, EVERY 8 HOURS, First dose on Thu02/17/24 at 2200, Until Discontinued, Routine 0001 (Given - Provider: Reyes Kemp RN)0800 (Given - Provider: Liu Koroma RCP)1600 (Given - Provider: Liu Koroma RCP) 0000 (Hold - Provider: Jacquelin Lam RN - Reason: Patient/family refused)0811 (Given - Provider: Klaus Moreno RN)1545 (Given - Provider: Cecilio Mayes RCP)2321 (Given - Provider: Elana Maldonado, NEYDA) 0748 (Given - Provider: Harley Montanez RN) sodium chloride 0.9 % (flush) (BD PosiFlush Normal Saline 0.9) flush 5 mL 5 mL, Intravenous, 2 TIMES DAILY, First dose on Thu02/15/24 at 2100, Until Discontinued, Routine 0844 (Given - Provider: Alia Ochoa RN)2039 (Given - Provider: Jacquelin Lam RN) 0808 (Given - Provider: Klaus Moreno, NEYDA)204 (Given - Provider: Elana Maldonado RN) 0900 (Due) sodium chloride 0.9 % (flush) (BD PosiFlush Normal Saline 0.9) flush 5 mL 5 mL, Intravenous, 2 TIMES DAILY, First dose on Thu02/16/24 at 0900, Until Discontinued, Recovery (Recovery-Hospital Unit), Routine 0844 (Given - Provider: Alia Ochoa RN)2039 (Given - Provider: Jacquelin Lam, NEYDA) 0809 (Given - Provider: Klaus Moreno, NEYDA)2048 (Given - Provider: Elana Maldonado RN) 0900 (Due) tiZANidine (Zanaflex) tablet 4 mg (CANCELED) 4 mg, Oral, 3 TIMES DAILY, First dose on Thu02/21/24 at 0945, Until Discontinued, Routine 0844 (Given - Provider: Alia Ochoa RN)1537 (Given - Provider: Alia Ochoa RN)2019 (Given - Provider: Jacquelin Lam RN) 0805 (Given - Provider: Klaus Moreno RN) Continuous Medication Order 02/22/2024 02/23/2024 02/24/2024 NORepinephrine (Levophed) (16 mcg/mL) in dextrose 5% 250 mL infusion (CANCELED) 0-100 mcg/min (0-375 mL/hr), Intravenous, CONTINUOUS, Starting on Opal 02/18/24 at 0430, Until Thu02/23/24 at 1822, Titrate to keep MAP greater than 60 mmHg. Start at 2 mcg/min. Increase/decrease by 2 mcg/min every 3 minutes until goal reached. Do not exceed 200 mcg/min. Warning Vesicant/Irritant Medication, Routine 0000 (New Bag - Provider: Reyes Kemp RN)0202 (Rate/Dose Change - Provider: Reyes Kemp RN)0403 (Rate/Dose Change - Provider: Reyes Kemp, RN)0810 (Rate/Dose Verify - Provider: Alia Ochoa RN)0945 (Rate/Dose Change - Provider: Alia Ochoa RN)1001 (Rate/Dose Change - Provider: Alia Ochoa, NEYDA)1200 (Rate/Dose Verify - Provider: Alia Ochoa RN)1301 (Rate/Dose Change - Provider: Alia Ochoa RN)1355 (Rate/Dose Verify - Provider: Alia Ochoa, NEYDA)1532 (Paused - Provider: Alia Ochoa RN)1632 (Rate/Dose Change - Provider: Alia Ochoa, NEYDA)1700 (Rate/Dose Change - Provider: Alia Ochoa, NEYDA)1815 (Rate/Dose Change - Provider: Alia Ochoa RN)1846 (Rate/Dose Change - Provider: Alia Ochoa, NEYDA)2046 (Rate/Dose Change - Provider: Jacquelin Lam, NEYDA)2102 (New Bag - Provider: Jacquelin Lam, NEYDA)2143 (Rate/Dose Change - Provider: Jacquelin Lam, NEYDA) 0030 (Rate/Dose Change - Provider: Jacquelin Lam, NEYDA)0104 (Rate/Dose Change - Provider: Jacquelin Lam, NEYDA)0206 (Rate/Dose Change - Provider: Jacquelin Lam, NEYDA)0350 (Paused - Provider: Jacquelin Lam RN)0908 (Restarted - Provider: Klaus Moreno RN - Comment: MAP 52)0914 (Rate/Dose Change - Provider: Klaus Moreno RN - Comment: MAP 52)0918 (Rate/Dose Change - Provider: Klaus Moreno RN - Comment: MAP 61)0956 (Rate/Dose Change - Provider: Klaus Moreno RN - Comment: MAP 78)1200 (Rate/Dose Change - Provider: Klaus Moreno RN)1230 (Stopped - Provider: Klaus Moreno RN) PRN Medication Order 02/22/2024 02/23/2024 02/24/2024 acetaminophen (Tylenol) tablet 650 mg (CANCELED) 650 mg, Oral, EVERY 6 HOURS PRN, Starting on Thu02/23/24 at 0642, Until Thu02/24/24 at 0811, Pain, for mild pain, - Maximum dose of acetaminophen is 4,000 mg from all sources in 24 hours. - Unless otherwise specified, when ordered PRN for pain, acetaminophen should be given first if other PRN pain medications are ordered., Routine 0650 (Given - Provider: Jacquelin Lam RN) 0554 (Given - Provider: Elana Maldonado RN) bisacodyL (Dulcolax) suppository 10 mg(Linked Group 1) 10 mg, Rectal, DAILY PRN, Starting on Thu02/19/24 at 0935, Until Thu02/24/24 at 1431, Constipation, Give if no BM within last 24 hr and rectal fullness is reported or assessed. Give concomitantly with any scheduled bowel medications ordered. , Routine bisacodyL EC (Dulcolax) tablet 10 mg(Linked Group 1) 10 mg, Oral, 2 TIMES DAILY PRN, Starting on Thu02/19/24 at 0935, Until Thu02/24/24 at 1431, Constipation, Give if no BM after 24 hr after prior interventions. BM expected in 6-8 hours. If BM desired sooner, use next ordered agent. Give concomitantly with any scheduled bowel medications ordered., Routine diphenhydrAMINE (Benadryl) (50 mg/mL) injection 25 mg 25 mg, Intravenous, ONCE PRN, 1 dose, Starting on Thu02/16/24 at 2000, Until Thu02/24/24 at 1431, For evidence of allergic reaction (new rash, wide spread itching, facial swelling, etc), If used, please let MD know immediately , Routine lactulose (Chronulac) (0.67 gram/mL) oral liquid 20 g(Linked Group 1) 20 g, Oral, DAILY PRN, Starting on Thu02/19/24 at 0935, Until Thu02/24/24 at 1431, Constipation, Give if no BM 24 hr after prior interventions or if BM is desired within 2 hr. Give concomitantly with any scheduled bowel medications ordered, Routine lactulose (Chronulac) (0.67 gram/mL) oral liquid 20 g(Linked Group 1) 20 g, Oral, DAILY PRN, Starting on Thu02/19/24 at 0935, Until Thu02/24/24 at 1431, Constipation, Give an additional (2nd) dose of lactulose 2 hr after 1st dose if still no BM. Disregard if 1st dose of lactulose not ordered. Give concomitantly with any scheduled bowel medications ordered. , Routine lidocaine (Xylocaine) 1% (10 mg/mL) injection 3 mg 3 mg (0.3 mL), Subcutaneous, ONCE PRN, 1 dose, Starting on Thu02/16/24 at 0609, Until Thu02/24/24 at 1431, for discomfort with PIV insertion, Day of Surgery (Day of Procedure), Routine lidocaine (Xylocaine) 1% (10 mg/mL) injection 3 mg 3 mg (0.3 mL), Subcutaneous, ONCE PRN, 1 dose, Starting on Thu02/15/24 at 2031, Until Thu02/24/24 at 1431, for discomfort with PIV insertion, Routine lidocaine (Xylocaine) 1% (10 mg/mL) injection 3 mg 3 mg (0.3 mL), Subcutaneous, ONCE PRN, 1 dose, Starting on Thu02/16/24 at 0609, Until Thu02/24/24 at 1431, for discomfort with PIV insertion, Recovery (Recovery-Hospital Unit), Routine magnesium citrate oral liquid 296 mL(Linked Group 1) 296 mL, Oral, ONCE PRN, 1 dose, Starting on Thu02/19/24 at 0935, Until Thu02/24/24 at 1431, Constipation, Give if no BM 2 hr after previous interventions. If 2 hr after mag citrate there is still no BM, see order for tap water enema, if placed. Give concomitantly with any scheduled bowel medications ordered., Routine melatonin tablet 3 mg 3 mg, Oral, NIGHTLY PRN, Starting on Thu02/22/24 at 2045, Until Thu02/24/24 at 1431, Sleep, Routine 210 (Given - Provider: Jacquelin Lam, NEYDA) ondansetron (pf) (Zofran) (2 mg/mL) injection 4 mg 4 mg, Intravenous, EVERY 8 HOURS PRN, Starting on Thu02/17/24 at 0700, Until Thu02/24/24 at 1431, Nausea polyethylene glycoL (Miralax) packet 17 g(Linked Group 1) 17 g, Oral, DAILY PRN, Starting on Thu02/19/24 at 0935, Until Thu02/24/24 at 1431, Constipation, Give if no BM within last 24 hr. Give concomitantly with any scheduled bowel medications ordered. , Routine potassium chloride ER (Klor-Con M) crystal tablet 40-60 mEq 40-60 mEq, Oral, PER POTASSIUM PROTOCOL, Starting on Thu02/22/24 at 0148, Until Thu02/24/24 at 1431, potassium replenishment, DO NOT CRUSH OR OPEN For serum potassium (mMol/L) of 3.3-3.8 administer Potassium oral liquid or ER tablets 40 mEq. For serum potassium (mMol/L) of 2.8-3.2 administer Potassium oral liquid or ER tablets 60 mEq. For serum potassium less than 2.8 Call provider for potassium dosing. potassium chloride ER particle/crystal tablets (Klor-Con M) may be broken in half and each half swallowed separately. Tablets can be dissolved in ~4 ounces of water; allow ~2 minutes to dissolve, stir well and drink immediately. Do not crush, chew, or suck on tablet., Routine 0512 (Given - Provider: Reyes Kemp RN) 352 (Hold - Provider: Elana Maldonado RN - Reason: Patient/family refused - Comment: pt refusing potassium at this time and states I'll take it later, education provided)418 (Given - Provider: Elana Maldonado RN - Comment: K+ 3.6) prochlorperazine (Compazine) (5 mg/mL) injection 10 mg 10 mg, Intravenous, EVERY 6 HOURS PRN, Starting on Thu02/17/24 at 0917, Until Thu02/24/24 at 1431, Nausea, If multiple antiemetics are ordered, use ondansetron first. ??If ondansetron ineffective use prochlorperazine. ?? PO Preferred. If patient unable to take PO, may give IV if ordered., Routine senna-docusate (Pericolace) 8.6-50 mg per tablet 2 tablet 2 tablet, Oral, 2 TIMES DAILY PRN, Starting on Thu02/24/24 at 0825, Until Thu02/24/24 at 1431, Constipation, Routine sodium chloride 0.9 % (flush) (BD PosiFlush Normal Saline 0.9) flush 5-20 mL 5-20 mL, Intravenous, EVERY 1 MIN PRN, Starting on Thu02/16/24 at 0609, Until Thu02/24/24 at 1431, flush, Flush pertains to all indwelling lines. Flush per protocol found in the job aid using the link provided on this medication record., Day of Surgery (Day of Procedure), Routine traZODone (Desyrel) tablet 50 mg 50 mg, Oral, NIGHTLY PRN, Starting on Thu02/23/24 at 1009, Until Thu02/24/24 at 1431, Sleep, Routine 2151 (Given - Provider: Elana Maldonado RN) Linked Groups Order Group 1: polyethylene glycoL (Miralax) packet 17 gJump to med 17 g, Oral, DAILY PRN, Starting on Thu02/19/24 at 0935, Until Thu02/24/24 at 1431, Constipation, Give if no BM within last 24 hr. Give concomitantly with any scheduled bowel medications ordered. , Routine And bisacodyL (Dulcolax) suppository 10 mgJump to med 10 mg, Rectal, DAILY PRN, Starting on Thu02/19/24 at 0935, Until Thu02/24/24 at 1431, Constipation, Give if no BM within last 24 hr and rectal fullness is reported or assessed. Give concomitantly with any scheduled bowel medications ordered. , Routine And bisacodyL EC (Dulcolax) tablet 10 mgJump to med 10 mg, Oral, 2 TIMES DAILY PRN, Starting on Thu02/19/24 at 0935, Until 02/24/24 at 1431, Constipation, Give if no BM after 24 hr after prior interventions. BM expected in 6-8 hours. If BM desired sooner, use next ordered agent. Give concomitantly with any scheduled bowel medications ordered., Routine And lactulose (Chronulac) (0.67 gram/mL) oral liquid 20 gJump to med 20 g, Oral, DAILY PRN, Starting on Thu02/19/24 at 0935, Until Thu02/24/24 at 1431, Constipation, Give if no BM 24 hr after prior interventions or if BM is desired within 2 hr. Give concomitantly with any scheduled bowel medications ordered, Routine And lactulose (Chronulac) (0.67 gram/mL) oral liquid 20 gJump to med 20 g, Oral, DAILY PRN, Starting on Thu02/19/24 at 0935, Until 02/24/24 at 1431, Constipation, Give an additional (2nd) dose of lactulose 2 hr after 1st dose if still no BM. Disregard if 1st dose of lactulose not ordered. Give concomitantly with any scheduled bowel medications ordered. , Routine And magnesium citrate oral liquid 296 mLJump to med 296 mL, Oral, ONCE PRN, 1 dose, Starting on Thu02/19/24 at 0935, Until 02/24/24 at 1431, Constipation, Give if no BM 2 hr after previous interventions. If 2 hr after mag citrate there is still no BM, see order for tap water enema, if placed. Give concomitantly with any scheduled bowel medications ordered., Routine And Tap water enema (CANCELED) Routine, DAILY PRN, Starting on Thu02/19/24 at 0935, Until Specified, Give if no BM in at least 24 hr and all other ordered bowel regimen medications have been unsuccessful. Give concomitantly with any scheduled bowel medications ordered. documented in this encounter Additional Health Concerns Infection Onset Date Last Indicated Resolved Time Rule Out Respiratory 02/18/2024 02/18/2024 024 10:50 AM EST documented as of this encounter Care Teams Behavioral School Counselors Relationship Specialty Start Date End Date Estrella Mckay, SCHOOL LUNCH MANAGER Juan Francisco [place] [address] PCP - General Family Medicine 12/14/23 documented as of this encounter
--- OUTSIDE RECORDS SUMMARY | 2024-02-29 15:50 | XMS_ITS | Encounter Summary ---
[place] [address] Care Team Providers Care Demurrage Man Name Role Phone Estrella Mckay APRN Primary Care Provider [phone] Encounter Details Date Type Department Care Team (Late st Contact Info) Description 02/25/2024 11:59 PM EST Anesthesia Event Surgical [place] [phone] [address] [facility] [place] [address] Anesthesia Record Procedure Summary Procedure Name Responsible Anesthesiologist Anesthesia Start Time Anesthesia Stop Time CLINIC LAB (canceled) Events No events on file. Meds * Agents No agents on file. * Blood No blood administrations on file. Lines, Drains, and Airways No LDAs on file. documented in this encounter Social History Tobacco Use Types Packs/Day Years Used Date Smoking Tobacco: Former Cigarettes 30 Q uit: 2012 Smokeless Tobacco: Never Comments:3/4TH PK A DAY Alcohol Use Standard Drinks/Week Comments No 0 (1 standard drink = 0.6 oz pur e alcohol) [facility] Utilities Answer Date Recorded In the past 12 months has e electric, gas, oil, or water [employer] threatened to shut off services in your [...] were you homeless or living in a retirement (including now)? No 02/17/2024 IPV Inpatient Questions [...] AM EST Office [place] [phone] Sarah Bah APRN [facility] [place] [address] 03/04/2024 7:00 AM EST Appointment Mammography/[place] [phone] Edmund Truong MD [facility] [place] [address] 03/07/2024 10:45 AM EST Laboratory Appointment Lab at [facility] [place] Hematology Oncology [address] [place] [phone] 03/07/2024 11:30 AM EST Office Visit Hematology and Oncology at [place] [phone] Bennett Turner, RN 03/07/2024 11:30 AM EST Office Visit [place]ology [place] [phone] Edmund Truong MD [facility] DR HEMATOLOGY [place] [address] 03/10/2024 8:15 AM EST Laboratory Appointment Lab at [facility] [place] Hematology Oncology [address] [place], [place] [phone] 03/10/2024 8:30 AM EST Scheduled View Only Hematology and Oncology at [place] [address] 03/10/2024 9:00 AM EST Office Visit Hematology and Oncology at [place] [address] Omid Degroot MD [facility] [place] [place] [address] 03/10/2024 9:00 AM EST Office Visit Hematology and Oncology at [place] [phone] Bennett Turner, RN 03/25/2024 9:30 AM EST Tech [place] [address] Carlton Higgins, RVT 03/25/2024 10:15 AM EST Office Visit Vascular Surgery at [place] [phone] Tomy Raymond MD [facility] [place] [address] documented as of this encounter Visit Diagnoses Not on filedocumented in this encounter Care Teams Demurrage Man Relationship Specialty Start Date End Date Estrella Mckay, SUPERVISOR [employer] [address] PCP - General Family Medicine 12/14/23 documented as of this encounter
--- OUTSIDE RECORDS SUMMARY | 2024-02-29 15:50 | XMS_ITS | Encounter Summary ---
[place] [address] Care Team Providers Care Division Service Manager Name Role Phone Estrella Mckay APRN Primary Care Provider [phone] Encounter Details Date Type Department Care Team (Late st Contact Info) Description 02/17/2024 11:59 PM EST Anesthesia Event Surgical [place] [phone] James Gibbs RN Anesthesia Record Procedure Summary Procedure Name Responsible Anesthesiologist Anesthesia Start Time Anesthesia Stop Time Acute Pain Medicine Service (consult) Events No events on file. Meds * [...] drink = 0.6 oz pur e alcohol) [facility] Utilities Answer Date Recorded In the past 12 months has [employer] electric, gas, oil, or water [employer] threatened to shut off services in your [...] any time in the past 12 m [facility], were you homeless or living in a alf (including now)? No 02/17/2024 IPV Inpatient Questions [...] AM EST Office [place] [phone] Sarah Bah APRN [facility] [place] [address] 03/04/2024 7:00 AM EST Appointment Mammography/[place] [phone] Edmund Truong MD [facility] DR HEMATOLOGY [place] [address] 03/07/2024 10:45 AM EST Laboratory Appointment Lab at [facility] [place] Oncology [address] [place] [phone] 03/07/2024 11:30 AM EST Office Visit Hematology and Oncology at [place] [address] Bennett Turner, RN 03/07/2024 11:30 AM EST Office Visit Hematology and Oncology at [place] [address] Edmund Truong MD [facility] DR HEMATOLOGY [place] [address] 03/10/2024 8:15 AM EST Laboratory Appointment Lab at [facility] [place] Hematology Oncology [address] [place] [address] 03/10/2024 8:30 AM EST Scheduled View Only Hematology and Oncology at [place] [address] 03/10/2024 9:00 AM EST Office Visit Hematology and Oncology at [place] [address] Omid Degroot MD [facility] [place] [address] 03/10/2024 9:00 AM EST Office Visit Hematology [place] [phone] Bennett Turner, RN 03/25/2024 9:30 AM EST Tech [place] [phone] Carlton Higgins, RVT 03/25/2024 10:15 AM EST Office Visit Vascular Surgery at [place] [address] Tomy Raymond MD [facility] [place] [address] documented as of this encounter Visit Diagnoses Not on filedocumented in this encounter Care Teams Division Service Manager Relationship Specialty Start Date End Date Estrella Mckay, TOOL DRESSER [address] [place] [address] PCP - General Family Medicine 12/14/23 documented as of this encounter
--- OUTSIDE RECORDS SUMMARY | 2024-02-29 15:51 | XMS_ITS | Encounter Summary ---
Author Organization [facility] [place] [address] Care Team Providers Care Assistant Plant Controller Name Role Phone Estrella Mckay APRN Primary Care Provider [phone] Reason for Visit * Auth/Cert (Routine) Specialty Diagnoses / Procedures Referred By Contac t Referred To Contact Diagnoses Aortoiliac occlusive disease Occluded limb prior aorto bifem Procedures PRO BYPASS GRAFT OTHR, AORTOBIFEMORAL @BYPASS GRAFT, AORTOBIFEMORAL W\ SYNTHETIC CONDUIT (WRVU 32.98) Tomy Raymond MD [facility] [place] [address] [facility] Referral ID Status Reason Start Date Expiration Date Visits Re quested Visits Authorized [id number] 1 1 Encounter Details Date Type Department Care Team (Late st Contact Info) Description 02/16/2024 8:05 AM EST Anesthesia Event [place] [address] Edwin Mott MD [facility] [place] [address] Douglas Montez MD [facility] [place] [address] Anesthesia Record Procedure Summary Procedure Name Responsible Anesthesiologist Anesthesia Start Time Anesthesia Stop Time @BYPASS GRAFT, AORTOBIFEMORAL W\ SYNTHETIC CONDUIT (WRVU 32.98) (Bilateral: Abdomen) Edwin Mott MD 02/16/24 0805 02/16/24 1730 Events Date Time Event Comment 02/16/2024 0651 0805 AN Verify 0805 Start 0805 An Start Data 0814 An Induction 0818 An Intubation 0847 Anesthesia Ready 0917 Break/Relief In I assumed ca re for Break Relief before which we: 1. Identified the patient 2. Identified the responsible provider(s) 3. Reviewed the pertinent medical history 4. Discussed the surgical plan and course 5. Reviewed intra-op anesthesia management and issues during anesthesia 6. Set expectations for the relief (and/or post-procedure) period 7. Allowed opportunity for questions and acknowledgement of understanding Stefanie Huang CRNA 0930 Break/Relief Out 1053 An one lung vent 1150 Vascular Clamp OFF 1153 Vascular Clamp ON Partial cl amp 1153 Vascular Clamp ON 1252 Vascular Clamp OFF 1310 An Dual Lung Vent 1310 Quick Note Surgeon request s SBP around 100 1507 An one lung vent 1532 An Dual Lung Vent 1706 Extubation/LMA Out 1707 an stop data 1729 Recovery or ICU Handoff Yumi ent care was transferred to the destination unit staff after review of the patient's medical history, current anesthetic/surgical status and plan, according to the Provider Handoff Checklist. Transferred to ICU team, VSS, all questions and concerns addressed 1730 Stop Meds Name Total lidocaine IV 50 mg propofoL 390 mg propofol INF 1,600.07 mg dexmedeTOMIDine 4 mcg/mL 36 mcg rocuronium 220 mg sugammadex 200 mg dexAMETHasone 8 mg ondansetron 4 mg metoprolol (LOPRESSOR) injection 5 mg HYDROmorphone 2 mg haloperidoL lactate (Haldol) (5 mg/mL) i njection 1 mg famotidine 20 mg esmolol 50 mg NORepinephrine 64 mcg ceFAZolin 4 g NORepinephrine INF 813 mcg heparin 14,000 Units HYDROmorphone (pf) (10 mcg/m L), BUPivacaine (pf) 0.1% in sodium chloride 0.9% 250 mL epidural 34.4 mL niCARdipine 0.2 mg calcium chloride 1,000 mg diphenhydrAMINE 25 mg protamine 40 mg vasopressin 1 Units acetaminophen IV 1,000 mg magnesium sulfate 1 g lactated ringers infusion 3,500 mL albumin (human) 5% 500 mL * Agents Name O2 Sevoflurane (et) * Blood No blood administrations on file. Lines, Drains, and Airways Type Details Placement Removal Incision 02/16/24; 1121; Left , upper; chest; vertical, transverse 02/16/24 1121 by Daiana Serna, NEYDA Incision 02/16/24; 1122; Righ t, anterior; groin; vertical 02/16/24 1122 by Daiana Serna, NEYDA Incision 02/16/24; 1122; Left , anterior; groin; vertical 02/16/24 1122 by Daiana Serna, RN Incision 02/16/24; 1122; Righ t; lower quadrant; horizontal 02/16/24 1122 by Daiana Serna, NEYDA Incision 02/16/24; 1123; Left ; lower quadrant; horizontal 02/16/24 1123 by Daiana Serna, RN Incision 02/16/24; 1123; Left ; upper quadrant; horizontal 02/16/24 1123 by Daiana Serna, NEYDA Incision 10/15/23; 1538; Left ; hip; non-laparascopic puncture; 10/15/[address] Alcala; LDA not present upon assessment; 02/16/24; 1121 10/15/23 1538 by Neo Fernández RN 02/16/24 1121 by Daiana Serna RN Incision 12/15/23; Right, posterior; hip; horizontal; Bmbx site; 02/24/24; (LDA not present on admit) 12/15/23 0000 by Lucero Yang RN 02/24/24 0000 by James Montanez RN PIV 02/16/24; 0616; mlxf-tba-rkyfir catheter system; 22 gauge; metacarpal vein (top of hand), right; Anatomical Landmarks; US Not Used; RN; distraction; 02/20/24; 1030 02/16/24 0616 by Nikkie Uriarte RN 02/20/24 1030 by Laura Sanchez RN Epidural 02/16/24; 0740; thoracic; T8-9; BLANE 5.5cm, skin depth +15cm; Dr. Montez, Dr. Marie; analgesia, continuous infusion; no longer indicated, catheter intact, removed with ease; Catheter intact, No complications; 02/22/24; 0940 02/16/24 0740 by James Gibbs RN 02/22/24 0940 by Yakelin Triana RN Urethral Catheter 02/16/24; 0815; Physician order; indwelling double lumen catheter; hydrophilic coated, latex; 14; inserted at [facility]; 1; 5; 10; none; drainage bag; urethral catheter removed, tubing intact; 02/18/24; 1008 02/16/24 0815 by Daiana Serna RN 02/18/24 1008 by Catherine Warren RN ETT Mask Ventilation: Adjunct (2); Double Lumen: 35 Fr; Mac Blade: 3; Notes: Asleep, Pre-O2, Stylette; Attempts: 1; Laryngoscopy Grade: 1; ETT Placement Verified By: Auscultation, Visual, Capnometry; Secured at Teeth: 29 cm; Inserted by: Issa Conway CRNA; Removal Date: 02/16/24; Removal Time: 17002/16/24 0820 by Rahat Conway, MOBILE SECURITY SPECIALIST 02/16/24 1706 by Rahat Conway, ADEN PIV 02/16/24; 0827; mkbi-uuu-movify catheter system; 16 gauge; cephalic vein (lateral side of arm), left; Anatomical Landmarks; Issa Conway CRNA; no longer indicated, removed per policy/procedure; 02/17/24; 200302/16/24 08 by Rahat Conway MOBILE SECURITY SPECIALIST 02/17/242003 by Alicja Gibbs RN Arterial Line 02/16/24; 0827; radi al artery, right; 20 gauge; Ultrasound Guidance; continuous blood pressure monitoring, frequent blood gas measurement; My Ham MD; Sterile Prep, Sterile Gloves; catheter not patent, catheter intact; 02/17/24; 1525 02/16/24 0827 by Rahat Conway, MOBILE SECURITY SPECIALIST 02/17/24 1525 by Larisa Gomez RN PIV 02/16/24; 0835; apkk-nyy-pcyxbm catheter system; 18 gauge; basilic vein (medial side of arm), right; Anatomical Landmarks; My Ham MD; 02/20/24; 1030 02/16/24 0835 by Rahat Conway CRNA 02/20/24 1030 by Laura Sanchez, RN Chest Tube 02/16/24; 1546; Ches t Tube; Left; lateral; 02/23/24; 1100 02/16/24 1546 by Daiana Serna RN 02/23/24 1100 by Klaus Moreno RN documented in this encounter Social History Tobacco Use Types Packs/Day Years Used Date Smoking Tobacco: Former Cigarettes 1 30 Q uit: 2012 Smokeless Tobacco: Never Comments: PK A DAY Alcohol Use Standard Drinks/Week Comments No 0 (1 standard drink = 0.6 oz pur e alcohol) [facility] Utilities Answer Date Recorded In the past [...] any time in the past 12 m [facility], were you homeless or living in a [facility] (including now)? No 02/17/2024 DH IPV Inpatient [...] on file documented as of this encounter OR Notes * Anesthesia Postprocedure Evaluation - Edwin Mott MD - 02/16/2024 6:47 PM EST Department of Anesthesiology Post-procedure Note Patient: Ashley Kee Procedure Summary Date: 02/16/24 Room / Location: [facility] OR [facility] MAIN OR Anesthesia Start: 804 Anesthesia Stop: 1729 Procedure: @BYPASS GRAFT, AORTOBIFEMORAL W\ SYNTHETIC CONDUIT (WRVU 32.98) (Bilateral: Abdomen) Diagnosis: (Occluded limb prior aorto bifem) Surgeons: Tomy Raymond MD Responsible Provider: Edwin Mott MD Anesthesia Type: general ASA Status: 3 All Anesthesia Providers: Anesthesiologist: My Ham MD; Edwin Mott MD MOBILE SECURITY SPECIALIST: Rahat Conway CRNA Vitals Value Taken Time BP 110/51 02/16/24 1719 Temp 36.3 ??C (97.3 ??F) 02/16/24 1815 Pulse 79 02/16/24 1846 Resp 14 02/16/24 1846 SpO2 96 % 02/16/24 1846 Pain Level 0 02/16/24 1815 Vitals shown include unfiled device data. Patient Location: PACU/[facility] Level of Consciousness: Conscious but Sleepy Pain Management: Satisfactory Analgesia PONV: None Cardiovascular Status: At Baseline Respiratory Status: Supplemental O2 (NC or FM) Postoperative Fluid Status: Intravascular EUvolemia Possible Anesthetic Complications: NONE apparent at time of evaluation Final Primary Anesthesia Type: General (The anesthetic type performed was the same as planned.) Comments: * Anesthesia Procedure Notes - Douglas Montez MD - 02/16/2024 7:55 AM EST Associated Order(s): Neuraxial Block Procedure: Neuraxial Block Post-op Pain Control Post-op pain management at the request of surgeon. Type: Epidural The patient was greeted. The sedation plan, its benefits, risks and alternatives were discussed with the patient. The patient has consented to the procedure. The medical history and chart were reviewed. The timeout was performed. Start time: 02/16/2024 7:11 AM End time: 02/16/2024 7:45 AM Patient Location: Operating Room (OR 19) Patient Prep Position: Prone Prep: Hand Hygiene, Hat, Mask, Sterile Gloves, Gown, Chlorhexidine and Patient Draped Injection technique: continuous Skin Anesthetic Lidocaine 1% 5 ml Procedure Technique Level of needle insertion: T12-L1 Needle approach: paramedian Needle Type: Tuohy Gauge: 17 Needle length: 3.5 in Needle insertion depth when BLANE achieved: 5.5 cm Technique for Loss of Resistance: BLANE saline Catheter at skin depth: 15 cm Dressing/Secured with: Chlorhexidine Tegaderm, Tegaderm and Tape Number of attempts: 2 Test dose Evidence of IV or IT Injection Medications: Date/Time: 02/16/2024 7:11 AM Events/Notes Imaging: epidurogram obtained and fluoroscopy guided Level of Epidural Tip via Fluoroscopy: T8-9 Iohexol 300 mgI/mL, 6 mL Events: inadvertent dural puncture Additional Notes: Initial attempt at T12-L1 yielded appropriate loss at 5 cm, however there was clear fluid aspirated and epidurogram concerning for intrathecal placement. Removed catheter attempted at same level with loss at 5.5 cm, appropriate loss of resistance with epidural spread evident on fluoro. Otherwise no complications and the patient tolerated the procedure well. Performed by: Resident/MOBILE SECURITY SPECIALIST: Doni Joaquin MD Fellow: Kaden Marie DO Attending Physician: Douglas Montez MD Authorized by: Douglas Montez MD ~~~~~~~~~~~~~~~~~~~~~~~~~~~~~~~~~~~~~~~~~~~~~~~~~~~~~~~~~~~~ * Anesthesia Preprocedure Evaluation - My Ham MD - 02/15/2024 7:48 PM EST Pre-Anesthesia Evaluation for: Ashley Kee a 63 y.o. female. Procedure(s): @BYPASS GRAFT, AORTOBIFEMORAL W\ SYNTHETIC CONDUIT (WRVU 32.98) Patient Active Problem List Diagnosis Date Noted ??? Critical limb ischemia of both lower extremities with autologous bypass graft 02/09/2024 ??? Left leg pain 02/04/2024 ??? Back pain 10/27/2011 ??? Right leg pain 10/27/2011 Past Medical History: Diagnosis Date ??? Back pain 10/27/2011 ??? Right leg pain 10/27/2011 Past Surgical History: Procedure Laterality Date ??? CT GUIDED BIOPSY BONE(EXTREMITIES/PELVIS) 10/15/2023 CT Guided Biopsy Bone (Extremities/Pelvis) 10/15/2023 Charissa Alcala MD [facility] RAD CT SCAN ? ? PRO DIAGNOSTIC BONE MARROW BIOPSIES & ASPIRATIONS N/A 12/15/2023 ([facility]) BONE MARROW BIOPSY AND ASPIRATION; DIAGNOSTIC (WRVU 1.44) performed by Bismark Degroot MD at [facility] OSC Social History Tobacco Use ??? Smoking status: Former Current packs/day: 0.00 Average packs/day: 1 pack/day for 30.0 years (30.0 ttl pk-yrs) Types: Cigarettes Quit date: 2012 Years since quittin.8 ??? Smokeless tobacco: Never ??? Tobacco comments: 3/4TH PK A DAY Substance Use Topics ??? Alcohol use: No Social History Substance and Sexual Activity Drug Use No Allergies Allergen Reactions ??? Percocet [Oxycodone-Acetaminophen] Nausea And Vomiting ??? Ciprofloxacin Other (See Comments) Burning with IV administration, needed benadryl ??? Ibuprofen Hives ??? Morphine Sulfate Nausea And Vomiting ??? Nsaids (Non-Steroidal Anti-Inflammatory Drug) Hives Medications: MAR and/or home medications have been reviewed. Physical Exam: Preprocedure Vitals Current as of 02/15/241947 No BP, pulse, respiration, SpO2, or temperature recorded. Height: 160 cm (5' 3) (02/04/24) Weight: 56.2 kg (124 lb) (02/04/24) BMI: 21.96 IBW: 52.4 kg (115 lb 7.7 oz) Airway Assessment: Mallampati: II TM distance: >3 FB Neck ROM: full Cardiovascular Assessment: system normal Pulmonary Assessment: pulmonary exam normal Dental Assessment: - normal exam Misc Assessment: IV access: Peripheral line Other exam findings: Aox3 Last Filed Perioperative Cognitive Screening None Anesthesia Plan: ASA 3 general, with a(n) intravenous induction 63 y.o. female with a past medical history of aortoiliac disease with lifestyle limiting claudication status post aortobifemoral bypass ([facility], 2013) neurogenic thoracic outlet syndrome status post first rib resection and scalenectomy ([facility]), and systemic mastocytosis who presented to the emergency department for evaluation of worsening left foot ischemic with occluded left limb of aortobifemoral bypass.scheduled for aortobifemoral bypass. Systemic Mastocytosis, Indolent vs Smoldering Ashley's case has been reviewed at our hematopathology tumor board and independently as well as jointly by multiple providers and the unified consensus is that her diagnosis is most consistent with indolent systemic mastocytosis.[Addendum: Note that labs from today returned later with Tryptase levelof > 200, which does potentially qualify as B symptom, which would raise classification to smoldering mastocytosis]. Cardiology evaluation She endorses a good exercise capacity and denies any functional limitations attributed to angina or shortness of breath. She has an extensive smoking history and a family history of CAD. The episode of desaturation overnight and extensive smoking history Meds reviewed on Lovenox 60mg BID Therapeutic.On famotidine and Zyrtec Allergies reviewed. Labs reviewed from early Echo 2023 Interpretation Summary -Left ventricular systolic function is normal. Left ventricular ejection fraction is estimated visually at 55-60%. There are no segmental wall motion abnormalities. -The right ventricle is of normal size. Right ventricular systolic function is normal. -No significant valvular disease. -No comparison study is available. EKG RBBB Bedside spirometry 02/05/2024: FVC 1.93 L, 65% FEV1 1.52 L, 66% Ratio 79% wnl CTA Chest 02/03 Mild dependent atelectasis and small subpleural blebs at the apices. Pleura: No effusion or pneumothorax. Pulmonary recommendations: She appears to have restrictive physiology vs air trapping based on bedside spirometry. She appears to have restrictive physiology vs air trapping based on bedside spirometry NIF -50 cm H20 (02/05/2024) Assessment and Plan 63 yo female ASA 3 for GA-ETT Standard ASA monitors plus arterial line. PIV x 2 .Premedication withH1 and H2 blockers. Avoid triggers for histamine release crisis. Risk and benefits discussed with patient and family members. Discussion regarding SARAY and treatmentas well as PONV and pain management post procedure. Blood transfusions were discussed but unlikely to occur. The patient was informed of the risks, benefits and alternatives of anesthesia. These risks included, but were not limited to, post-operative nausea and/or vomiting, pain, sore throat, dental/lip trauma, and other rare but serious complications such as major organ damage, awareness, severe allergicreactions, position-related nerve injuries, and need blood transfusions. Patient understood; all questions were sought, answered and the patient agreed to proceed. Consent was signed and placed in chart. Region - [facility] Informed Consent: Anesthetic plan and risks discussed with patient. Use of blood products discussed with patient who consented to blood products. Plan discussed with MOBILE SECURITY SPECIALIST. Anesthesia Screening documented in this encounter Plan of Treatment Upcoming Encounters Date Type Department Care Team (Late st Contact Info) Description 03/02/2024 8:30 AM EST Office Visit V[place] [phone] Sarah Bah APRN [facility] [place] [address] 03/04/2024 7:00 AM EST Appointment Mammography/[place] [phone] Edmund Truong MD [facility] DR HEMATOLOGY [place] [address] 03/07/2024 10:45 AM EST Laboratory Appointment Lab at [facility] Hematology Oncology [address] [place] [phone] 03/07/2024 11:30 AM EST Office Visit Hematology [place] [phone] Bennett Turner RN 03/07/2024 11:30 AM EST Office Visit Hematology and Oncology at [place] [address] Edmund Truong MD [facility] [address] [place] [address] 03/10/2024 8:15 AM EST Laboratory Appointment Lab at [facility] Hematology Oncology [address] [place] [address] 03/10/2024 8:30 AM EST Scheduled View Only Hematology and Oncology at [place] [address] 03/10/2024 9:00 AM EST Office Visit Hematology and Oncology at [place] [address] Omid Degroot MD [facility] [place] [address] 03/10/2024 9:00 AM EST Office Visit Hematology and Oncology at [place] [address] Bennett Turner RN 03/25/2024 9:30 AM EST Tech Visit Vascular Lab at [place] [address] Carlton Higgins, RVT 03/25/2024 10:15 AM EST Office Visit Vascular Surgery at [place] [phone] Tomy Raymond MD [facility] [place] [address] documented as of this encounter Procedures Procedure Name Priority Date/Time Associated Diagnosis Comments [id number] ONLY Routine 02/16/2024 7:11 AM EST documented in this encounter Results * [id number] ONLY (02/16/2024 7:11 AM EST) Narrative Douglas [...] tolerated the procedure well. Performed by: ?? Resident/MOBILE SECURITY SPECIALIST: ? Doni Joaquin MD ?? Fellow: ?Kaden Marie, DO ?? Attending Physician: ? Douglas Montez MD Authorized by: Douglas Montez MD ?? ~~~~~~~~~~~~~~~~~~~~~~~~~~~~~~~~~~~~~~~~~~~~~~~~~~~~~~~~~~~~ Douglas Montez MD CHIEF ARCHITECT [facility] documented in this encounter Visit Diagnoses Not on filedocumented in this encounter Administered Medications Inactive Administered Medications - up to 3 most recent administrations Medication Order MAR Action Action Date Dose Rate Site acetaminophen (Ofirmev) (1,000 mg/100 mL) infusion Intravenous, Administer over 15 Minutes, PRN, Starting on Thu02/16/24 at 1610, Until Thu02/16/24 at 1730, Anesthesia Intra-op, Routine Given 02/16/2024 4:10 PM EST 1,000 mg albumin (human) 5% 250 mL intravenous solution Intravenous, CONTINUOUS PRN, Starting on Thu02/16/24 at 1045, Until Thu02/16/24 at 1730, Anesthesia Intra-op, Routine New Bag 02/16/2024 2:35 PM EST New Bag 02/16/2024 10:45 AM EST calcium chloride 10% (100 mg/mL) injection Intravenous, PRN, Starting on Thu02/16/24 at 1331, Until Thu02/16/24 at 1730, Anesthesia Intra-op, Routine Given 02/16/2024 1:59 PM EST 250 mg Given 02/16/2024 1:55 PM EST 250 mg Given 02/16/2024 1:31 PM EST 500 mg ceFAZolin (Ancef) (100 mg/mL) injection solution Intravenous, PRN, Starting on Thu02/16/24 at 0853, Until Thu02/16/24 at 1730, Anesthesia Intra-op, Routine Given 02/16/2024 12:52 PM EST 2 g Given 02/16/2024 8:53 AM EST 2 g dexAMETHasone (Decadron) injection Intravenous, PRN, Starting on Thu02/16/24 at 0859, Until Thu02/16/24 at 1730, Anesthesia Intra-op, Routine Given 02/16/2024 8:59 AM EST 8 mg dexmedeTOMIDine (Precedex) (4 mcg/mL) bolus injection (Anesthsia) Intravenous, PRN, Starting on Thu02/16/24 at 0910, Until Thu02/16/24 at 1730, Anesthesia Intra-op, Routine Given 02/16/2024 10:35 AM EST 4 mcg Given 02/16/2024 10:29 AM EST 4 mcg Given 02/16/2024 9:34 AM EST 4 mcg diphenhydrAMINE (Benadryl) (50 mg/mL) injection Intravenous, PRN, Starting on Thu02/16/24 at 0819, Until Thu02/16/24 at 1730, Anesthesia Intra-op, Routine Given 02/16/2024 8:19 AM EST 25 mg esmoloL (Brevibloc) (10 mg/mL) injection Intravenous, PRN, Starting on Thu02/16/24 at 0819, Until Thu02/16/24 at 1730, Anesthesia Intra-op, Routine Given 02/16/2024 8:22 AM EST 20 mg Given 02/16/2024 8:19 AM EST 30 mg famotidine (Pepcid) (10 mg/mL) injection Intravenous, PRN, Starting on Thu02/16/24 at 0818, Until Thu02/16/24 at 1730, Anesthesia Intra-op, Routine Given 02/16/2024 8:18 AM EST 20 mg haloperidoL lactate (Haldol) (5 mg/mL) injection Intravenous, PRN, Starting on Thu02/16/24 at 0835, Until Thu02/16/24 at 1730, Anesthesia Intra-op, Routine Given 02/16/2024 8:35 AM EST 1 mg heparin (porcine) (1,000 units/mL) injection Intravenous, PRN, Starting on Thu02/16/24 at 1149, Until Thu02/16/24 at 1730, Anesthesia Intra-op, Routine Given 02/16/2024 2:13 PM EST 2,000 Uni ts Given 02/16/2024 1:27 PM EST 2,000 Units Given 02/16/2024 12:55 PM EST 2,000 Units HYDROmorphone (Dilaudid) (2 mg/mL) multi-dose injection solution Intravenous, PRN, Starting on Thu02/16/24 at 0859, Until Thu02/16/24 at 1730, Anesthesia Intra-op, Routine Given 02/16/2024 10:36 AM EST 0.5 mg Given 02/16/2024 10:18 AM EST 0.5 mg Given 02/16/2024 9:14 AM EST 0.5 mg HYDROmorphone (pf) (10 mcg/mL), BUPivacaine (pf) 0.1% in sodium chloride 0.9% 250 mL epidural Epidural, Epidural Type: Continuous + PCEA, Continuous [...] from infusion delivered on a programmed frequency, Day of Surgery (Day of Procedure) Bolus 02/16/2024 1:27 PM EST 2 mLs Bolus 02/16/2024 1:15 PM EST 6 mLs New Bag 02/16/2024 1:06 PM EST 6 mL/hr 6 mL/hr lactated ringers infusion 1,000 mL, at 100 mL/hr, Intravenous, CONTINUOUS, Starting on Thu02/16/24 at 0630, Until Thu02/16/24 at 1740, Day of Surgery (Day of Procedure) New Bag 02/16/2024 8:08 AM EST lidocaine (pf) (Xylocaine) (20 mg/mL) 2% injection syringe Intravenous, PRN, Starting on Thu02/16/24 at 0814, Until Thu02/16/24 at 1730, Anesthesia Intra-op, Routine Given 02/16/2024 8:14 AM EST 50 mg magnesium sulfate (4 mEq/mL) (50 %) injection Intravenous, PRN, Starting on Thu02/16/24 at 1706, Until Thu02/16/24 at 1730, Anesthesia Intra-op, Routine Given 02/16/2024 5:06 PM EST 1 g metoprolol (LOPRESSOR) injection Intravenous, PRN, Starting on Thu02/16/24 at 0908, Until Thu02/16/24 at 1730, Anesthesia Intra-op, Routine Given 02/16/2024 12:39 PM EST 2 mg Given 02/16/2024 9:08 AM EST 1 mg Given 02/16/2024 8:41 AM EST 2 mg niCARdipine (Cardene) injection Intravenous, PRN, Starting on Thu02/16/24 at 1309, Until Thu02/16/24 at 1730, Anesthesia Intra-op, Routine Given 02/16/2024 1:09 PM EST 0.2 mg NORepinephrine (Levophed) (16 mcg/mL) in dextrose 5% 250 mL infusion Intravenous, CONTINUOUS PRN, Starting on Thu02/16/24 at 0955, Until Thu02/16/24 at 1730, Anesthesia Intra-op, Routine Rate/Dose Change 02/16/2024 5:03 PM EST 1 mcg/min 3.75 mL/hr Rate/Dose Change 02/16/2024 4:28 PM EST 3 mcg/min 11.25 m L/hr Rate/Dose Change 02/16/2024 3:36 PM EST 2 mcg/min 7.5 mL/ hr NORepinephrine (Levophed) injection Intravenous, PRN, Starting on Thu02/16/24 at 0921, Until Thu02/16/24 at 1730, Anesthesia Intra-op, Routine Given 02/16/2024 3:06 PM EST 8 mcg Given 02/16/2024 3:04 PM EST 8 mcg Given 02/16/2024 3:02 PM EST 8 mcg ondansetron (pf) (Zofran) (2 mg/mL) injection Intravenous, PRN, Starting on Thu02/16/24 at 1545, Until Thu02/16/24 at 1730, Anesthesia Intra-op, Routine Given 02/16/2024 3:45 PM EST 4 mg propofoL (Diprivan) (10 mg/mL) infusion Intravenous, CONTINUOUS PRN, Starting on Thu02/16/24 at 0843, Until Thu02/16/24 at 1730, Anesthesia Intra-op, Routine Rate/Dose Change 02/16/2024 2:33 PM EST 50 mcg/kg/min 16.74 mL/hr Rate/Dose Change 02/16/2024 9:00 AM EST 75 mcg/kg/min 25.1 1 mL/hr New Bag 02/16/2024 8:43 AM EST 50 mcg/kg/min 16.74 mL/h r propofoL (Diprivan) 10 mg/mL bolus injection (Anesthesia) Intravenous, PRN, Starting on Thu02/16/24 at 0814, Until Thu02/16/24 at 1730, Anesthesia Intra-op Given 02/16/2024 4:35 PM EST 30 mg Given 02/16/2024 10:36 AM EST 20 mg Given 02/16/2024 10:29 AM EST 20 mg protamine (10 mg/mL) injection Intravenous, PRN, Starting on Thu02/16/24 at 1457, Until Thu02/16/24 at 1730, Anesthesia Intra-op, Routine Given 02/16/2024 3:00 PM EST 35 mg Given 02/16/2024 2:57 PM EST 5 mg rocuronium (Zemuron) (10 mg/mL) multi-dose injection Intravenous, PRN, Starting on Thu02/16/24 at 0814, Until Thu02/16/24 at 1730, Anesthesia Intra-op, Routine Given 02/16/2024 2:14 PM EST 20 mg Given 02/16/2024 1:15 PM EST 30 mg Given 02/16/2024 11:57 AM EST 20 mg sugammadex (Bridion) 100 mg/mL injection Intravenous, PRN, Starting on Thu02/16/24 at 1635, Until Thu02/16/24 at 1730, Anesthesia Intra-op, Routine Given 02/16/2024 4:35 PM EST 200 mg vasopressin (Vasostrict) injection Intravenous, PRN, Starting on Thu02/16/24 at 1517, Until Thu02/16/24 at 1730, Anesthesia Intra-op, Routine Given 02/16/2024 3:17 PM EST 1 Units documented in this encounter Care Teams Assistant Plant Controller Relationship Specialty Start Date End Date Estrella Mckay, [employer] [place] [address] PCP - General Family Medicine 12/14/23 documented as of this encounter
--- OUTSIDE RECORDS SUMMARY | 2024-02-29 15:51 | XMS_ITS | Encounter Summary ---
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 Procedures PRO BYPASS GRAFT OTHR, AORTOBIFEMORAL @BYPASS GRAFT, AORTOBIFEMORAL W\ SYNTHETIC CONDUIT (WRVU 32.98) Emily Raymond MD [facility] [address] [facility] Referral ID Status Reason Start Date Expiration Date Visits Re quested Visits Authorized [id number] 1 1 Encounter Details Date Type Department Care Team (Late st Contact Info) Description 02/16/2024 7:30 AM EST - 02/16/2024 2:15 PM EST Surgery [place] [address] Emily Raymond MD [facility] [place] [address] @BYPASS GRAFT, AORTOBIFEMORAL W\ SYNTHETIC CONDUIT (WRVU 32.98) Social History Tobacco Use Types Packs/Day Years Used Date Smoking Tobacco: Former Cigarettes 1 30 Q uit: 2012 Smokeless Tobacco: Never Comments:3/4TH PK A DAY Alcohol Use Standard Drinks/Week Comments No 0 (1 standard drink = 0.6 oz pur e alcohol) [facility] Utilities Answer Date Recorded In the [...] any time in the past 12 m [facility], were you homeless or living in a nursing home (including now)? No 02/17/2024 DH IPV Inpatient [...] Sign Reading Time Taken Comments Blood Pressure 123/63 02/16/2024 6:10 AM EST Pulse 75 02/16/2024 6:10 AM EST Temperature 36.4 ??C (97.5 ??F) 02/16/2024 6:10 AM ES T Respiratory Rate 16 02/16/2024 6:10 AM EST Oxygen Saturation 97% 02/16/2024 6:10 AM EST Inhaled Oxygen Concentration - - Weight 55.8 kg (123 lb) 02/16/2024 6:10 AM EST Height - - Body Mass Index 21.09 02/16/2024 6:00 PM EST documented in this encounter Discharge Instructions * Patient Instructions* Kym Hassan APRN - 02/24/2024 9:24 AM EST Patient Instructions [...] blood pressures You can send in your [place] paperwork so that we may fill it [...] For any problems or questions please call [phone] For issues on weeknights after 5pm and weekends please call [phone] and ask for the Vascular Fellow ventilation mechanic. documented in this encounter Medications at Time [...] Gas) No results found for: PHART, PO2ART, LBO6SAP RAD: Reviewed. IS PATIENT CRITICALLY ILL ? [...] was able to discuss plan with provider CC R1 [id number] . Current Nutrition Regimen: Active Orders Diet [...] encounter: 55.6 kg (122 lb 9.2 oz). [place] Body Weight (IBW) (kg): 52.27 Wt Readings [...] Vitals for the past 168 hrs: Weight 11/19/24 0600 55.6 kg (122 lb 9.2 oz) [...] Malnutrition Diagnosis: Not enough data to assess (Haider, JPEN J Parenteral Enteral Nutr. 2011; 36(3): 273-83) Nutrition to continue to follow up while inpatient Thank you, Haley Brewer. Reji, MS, RD, LD, [facility] Clinical Nutrition * Sergio Higgins MD - 02/23/2024 11:27 AM EST Interval Note - Chest Tube Removal Decision made to remove chest tube given improving respiratory status and downtrending output. Suture cut. Patient asked to hum and tube removed without incident. Occlusive dressing immediately placed. Plan for post-pull CXR in 4 hours. Sergio Higgins MD 02/23/24 11:30 AM Surgical ICU, Red 1 * Jeanna Ryan MD - 02/23/2024 10:07 [...] Gas) No results found for: PHART, PO2ART, ETC5THW RAD: Reviewed. IS PATIENT CRITICALLY ILL ? [...] Gas) No results found for: PHART, PO2ART, IBZ6OFP RAD: Reviewed. IS PATIENT CRITICALLY ILL ? [...] dilaudid, tizanidine, 2. PULM: left CT to -51tyA0P. No airleak 280 mL out for 24 [...] total critical care time JEANNA RYAN MD * Jany Juarez MD - 02/22/2024 9:40 AM EST Acute [...] sign off at this time. Please page [phone] with any epidural-related questions or concerns. I, [...] HAP. -Extubated 02/19 Social History: Lives in [place], with and dog. works 6-2. 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 3 steps w/ [...] positioning with VSS Time IN / OUT: 8147-3431 Total Minutes, Physical Therapy: 20 Billing Code: x1 TEF Thank you for this consult. Carly Thompson, PT, DPT, GCS Pager: [phone] Physical Therapy Inpatient Rehabilitation Department * Jony [...] Gas) No results found for: PHART, PO2ART, XRB9AGH RAD: Reviewed. IS PATIENT CRITICALLY ILL ? [...] control. APS following. 2. PULM: CT to -01bhV5W. Aggressive pulm toilet. 3. CARDIAC: appears well [...] AM, pleasant/conversant/requesting chest tube removal - On of to maintain MAPs > 60 - [...] Last Ca, Mg, Phos Recent Labs 02/21/24 0124 CALCIUM 8.1* PHOS 3.3 MAGNESIUM 0.85 Last 3 Coags Recent Labs 02/17/24 1610 02/17/24 0605 02/17/24 0014 PT 12.6* 12.2 11.4 INR 1.1 1.1 1.0 PTT 26 27 26 New Studies Results for orders placed or performed during the hospital encounter of 02/16/24 XR Chest One View (Exam End: 02/17/2024 8:01 AM) Result Value WORKSTATION ID [id number] Impression Collapsed left lower lobe and partially collapsed right lower lobe. Thank you for letting us participate in the care of this patient. If you are a health care provider and have any questions regarding this report, please contact the number below. For patients who have questions please contact the health rental boats caretaker that requested your imaging first. Electronically signed by: Clark Tolentino MD, [facility] ([phone]), at 02/17/2024 9:35 AM XR Chest One View (Exam End: 02/17/2024 3:33 PM) Result Value WORKSTATION ID [id number] Impression 1. No definitive pneumothorax. 2. Small bilateral pleural effusions. 3. Unchanged bilateral lower lobe collapse. Thank you for letting us participate in the care of this patient. If you are a health care provider and have any questions regarding this report, please contact the number below. For patients who have questions please contact the health rental boats caretaker that requested your imaging first. Angiogram Chest for Pulmonary Embolus w Contrast (Exam End: 02/18/2024 12:07 AM) Result Value WORKSTATION ID [id number] Impression 1. No pulmonary embolism. 2. Persistent [...] who have questions please contact the health rental boats caretaker that requested your imaging first. Electronically signed by: Clark Johnson MD, [facility] ([phone]), at 02/18/2024 1:13 AM XR Chest One View (Exam End: 02/18/2024 4:48 AM) Result Value WORKSTATION ID [id number] Impression 1. Endotracheal tube tip projects over [...] who have questions please contact the health rental boats caretaker that requested your imaging first. Electronically signed by: Clark Johnson MD, [facility] ([phone]), at 02/18/2024 4:56 AM XR Chest One View (Exam End: 02/18/2024 8:07 PM) Result Value WORKSTATION ID [id number] Impression 1. New left IJ central venous [...] who have questions please contact the health rental boats caretaker that requested your imaging first. Electronically signed by: Luis Enrique Pena MD, [facility] ([phone]), at 02/19/2024 12:17 AM XR Chest One View (Exam End: 02/20/2024 5:04 AM) Result Value WORKSTATION ID [id number] Impression 1. Unchanged left lower lobe opacity [...] who have questions please contact the health rental boats caretaker that requested your imaging first. Electronically signed by: Clark Johnson MD, [facility] ([phone]), at 02/20/2024 6:10 AM Assessment & Plan [...] Enedelia Ty APRN Vascular Surgery 02/21/24 Pager [phone] * Jony Perez MD - 02/20/2024 12:50 [...] 2948 [I.V.:2216.2; Other:181.9; NG/GT:372; IV Piggyback:18] Out: 2064 [Urine:1655; Other:410] Body mass index is 23.31 [...] Gas) No results found for: PHART, PO2ART, ORZ5IOF RAD: Reviewed. IS PATIENT CRITICALLY ILL ? [...] control. APS following. 2. PULM: CT to -49ddF7V. Acute hypoxic respiratory failure. Improving, Trial of [...] Physician:: Jany Juarez MD * Darek Pierson, [facility] - 02/20/2024 6:01 AM EST Illness Severity [...] 02/18 PM: Passes SBT, placed on PSV 5/ after SBT, minimal secretions Action List Medications/ACT: [...] with lifestyle limiting claudication (s/p aortobifemoral bypass [facility], 2012), neurogenic thoracic outlet syndrome (s/p first rib resection and scalenectomy [facility]), and systemic mastocytosis Events w/ [...] 02/17/24 1802 02/17/24 0605 02/17/24 0014 02/16/24 1802 NA 139 141 143 139 139 < [...] Gas) No results found for: PHART, PO2ART, WMB9IJS RAD: Reviewed. IS PATIENT CRITICALLY ILL ? [...] control. APS following. 2. PULM: CT to -24kcE9I. Acute hypoxic respiratory failure. Improving, titrate as [...] (43) min total critical care time JONY PEREZ MD * Jany Juarez MD - 02/19/2024 [...] Please page APS with any concerns at [phone]. We made no changes to the epidural regimen today and will defer to ICU team on epidural management while the patient remains intubated. APMS will continue to follow. HARLEY Hemphill RN, have performed the documentation for this encounter in the presence of andacting as a scribe for Dr. Jany Juarez. [facility] Nurse: Harley Macias RN Fellow:: Kaden Marie DO Attending Physician:: Jany Juarez MD I performed the above scribed service and agree with the accuracy of the note. * Zulema Junior, SIZE TESTER - 02/19/2024 9:16 AM EST Vascular Surgery [...] Daily insulin lispro 1-4 Units Subcutaneous Q4H [facility] sodium chloride 0.9 % (flush) 5 mL Intravenous BID 24 hour events/Subjective - Vent Fi02 30% 8 pressure support - Levo 6mcg/min - sedated [...] Intake 4421.12 ml Output 2400 ml Net 2021.12 ml Temp: [37.1 ??C (98.8 ??F)-38.2 ??C [...] 02/17/2024 8:01 AM) Result Value WORKSTATION ID [id number] Impression Collapsed left lower lobe and partially collapsed right lower lobe. Thank you for letting us participate in the care of this patient. If you are a health care provider and have any questions regarding this report, please contact the number below. For patients who have questions please contact the health rental boats caretaker that requested your imaging first. Electronically signed by: Clark Tolentino MD, [facility] ([phone]), at 02/17/2024 9:35 AM XR Chest One View (Exam End: 02/17/2024 3:33 PM) Result Value WORKSTATION ID [id number] Impression 1. No definitive pneumothorax. 2. Small bilateral pleural effusions. 3. Unchanged bilateral lower lobe collapse. Thank you for letting us participate in the care of this patient. If you are a health care provider and have any questions regarding this report, please contact the number below. For patients who have questions please contact the health rental boats caretaker that requested your imaging first. Electronically signed by: Clark Johnson MD, [facility] ([phone]), at 02/18/2024 12:[address] Angiogram Chest for Pulmonary Embolus w Contrast (Exam End: 02/18/2024 12:07 AM) Result Value WORKSTATION ID [id number] Impression 1. No pulmonary embolism. 2. Persistent [...] who have questions please contact the health rental boats caretaker that requested your imaging first. Electronically signed by: Clark Johnson MD, [facility] ([phone]), at 02/18/2024 1:13 AM XR Chest One View (Exam End: 02/18/2024 4:48 AM) Result Value WORKSTATION ID [id number] Impression 1. Endotracheal tube tip projects over [...] who have questions please contact the health rental boats caretaker that requested your imaging first. Electronically signed by: Clark Johnson MD, [facility] ([phone]), at 02/18/2024 4:56 AM XR Chest One View (Exam End: 02/18/2024 8:07 PM) Result Value WORKSTATION ID [id number] Impression 1. New left IJ central venous [...] who have questions please contact the health rental boats caretaker that requested your imaging first. Electronically signed by: Luis Enrique Pena MD, [facility] ([phone]), at 02/19/2024 12:17 AM Assessment & Plan [...] APRN Vascular Surgery 02/19/24 [id number] * Darek Pierson RCP - 02/19/2024 5:40 AM EST Illness Severity [...] 02/17/24 1802 02/17/24 1610 02/17/24 0605 02/17/24 00102/16/24 1802 NA 139 139 139 138 138 138 K 4.0 4.1 4.3 4.5 4.8 4.3 CL 106 107 105 108* 109* 110* CO2 26 25 24 22 22 20* BUN 6* [...] control. APS following. 2. PULM: CT to -33rcM2P. Acute hypoxic respiratory failure. High FiO2, titrate [...] Research Office Note RESEARCH NURSE OFFICE NOTE [id number]: (SUMMIT) A MULTI-PART, RANDOMIZED, DOUBLE-BLIND,PLACEBO-CONTROLLED PHASE 2 CLINICAL STUDYOF THE SAFETY AND EFFICACY OF [id number] IN SUBJECTS WITH NONADVANCED SYSTEMIC MASTOCYTOSIS Date [...] (!) 38.3 ??C (100.9 ??F) (Oral) Comment: aware Resp 21 Ht 160 cm (5' 3) [...] SYNTHETIC CONDUIT (WRVU 32.98) - thoraco bifem APNE EPIDURAL ROUNDIN02/18/2024 8:59 AM Average Numeric Rating [...] continue current therapy for the time being. HARLEY Hemphill RN, have performed the documentation for this encounter in the presence of andacting as a scribe for Dr. Murtaza Ang. [facility] Nurse: Harley Macias RN Resident:: Jony Joaquin MD Fellow:: Kaden Marie DO Attending Physician:: Murtaza Ang MD I performed the above scribed service and agree with the accuracy of the note. MURTAZA ANG MD * Carly Thompson, PT - 02/18/2024 7:35 AM EST Physical Therapy Contact Note Patient acutely intubated this AM - remains RASS -5. Not appropriate for ongoing PT interventions today. Will follow up once more stable and able to participate. Please refer to initial evaluation 02/16 for details and recommendations. Carly Thompson, PT, DPT, GCS Pager: [phone] 02/18/24 Inpatient Rehabilitation Department * Elise Ceballos [...] & at bedside. Transitioned pt to BiPAP 70% & seems to be tolerating the [...] sounds. LEFT CXT without air leak BiPAP 17/11 70% TVs 350s (IBW 52kg) and RR [...] documentation on the unit. * Amna Hernandez RCP - 02/17/2024 6:43 PM EST Illness Severity [...] [facility]), and systemic mastocytosis Events w/ date: 02/15: [...] % (flush), lidocaine LABS: Recent Labs 02/17/24 0605 02/17/24 0014 02/16/24 1802 WBC 10.78* 10.74* 13.48* HGB 10.7* 10.8* 11.4* HCT 31.8* 32.6* 34.7* PLATELET 189 188 185 PT 12.2 11.4 11.7 INR 1.1 1.0 1.0 PTT 27 26 31 Recent Labs 02/17/24 0605 02/17/24 0014 02/16/24 1802 NA 138 138 138 K 4.5 [...] control. APS following. 2. PULM: CT to -69dfQ7J. Pulm toilet. Titrate supplemental O2 as needed. [...] critical care time JONY PEREZ MD * Nati Carly Rancho, PT - 02/17/2024 8:16 AM EST Physical [...] Biopsy Bone (Extremities/Pelvis) 10/15/2023 Charissa Alcala MD [facility] RAD CT SCAN PRO DIAGNOSTIC BONE MARROW BIOPSIES & ASPIRATIONS N/A 12/15/2023 ([facility]) BONE MARROW BIOPSY AND ASPIRATION; DIAGNOSTIC (WRVU 1.44) performed by Bismark Degroot MD at [facility] OSC Social History: Lives in [place], with and dog. works 6-2. Patient normally [...] hand), right 02/16/24 0616 -- 1 PIV 02/16/24826 16 gauge cephalic vein (lateral side of [...] 02/16/24 0740 -- 1 Arterial Line 02/16/24 08 radial artery, right 20 gauge 02/16/24826 -- 1 Activity Orders: Activity Orders (From admission to next 72h) Start Ordered 02/17/24729 Activity order ONE TIME Comments: OK for OOB to chair 02/17/24 0702/16/24 1740 Head of Bed 30 degrees or [...] mobility recommendations discussed with nursing. Assessment: Jt Chhaya Grayson was seen today for physical therapy [...] in this evaluation. Time IN / OUT: 9950-6511 Total Minutes, Physical Therapy: 35 Billing Code: x1 high eval Thank you for this consult. Carly Thompson PT, DPT, GCS Pager: [phone] Physical Therapy Inpatient Rehabilitation Department * Murtaza [...] Given 02/16/2024 Intravenous 50 mcg Given 02/16/2024 APNE EPIDURAL ROUNDIN02/17/2024 8:01 AM Average Numeric Rating [...] Jt's diet is advanced and has ROBF. Yakelin Hemphill RN, have performed the documentation for this encounter in the presence of and acting as a scribe for Dr. Murtaza Ang. 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 due to concerns of side effects ISO [...] Biopsy Bone (Extremities/Pelvis) 10/15/2023 Charissa Alcala MD [facility] RAD CT SCAN PRO DIAGNOSTIC BONE MARROW BIOPSIES & ASPIRATIONS N/A 12/15/2023 ([facility] MS[facility]) BONE MARROW BIOPSY AND ASPIRATION; DIAGNOSTIC (WRVU 1.44) performed by Bismark Degroot MD at [facility] OSC Prior To Admission Medications: Medications Prior [...] since quittin.8 Smokeless tobacco: Never Tobacco comments: 3/ PK A DAY Substance and Sexual Activity [...] Last Ca, Mg, Phos Recent Labs 02/11/24 043 CALCIUM 9.1 PHOS 4.3 MAGNESIUM 0.90 Last [...] the past 24 hour(s)) Type and screen ([facility]) Result Value Ref Range ABORH Type B NEGATIVE PATIENT HISTORY Found Expires at 2359 on: 02/19/2024 ANTIBODY SCREEN AUTOMATED Negative T&S only valid at [facility] LAB ABORH RECHECK (PATIENT HISTORY FOUND) Result [...] procedures: 40 minutes Marta Zhang MD CC Surveillance Camera Technician documented in this encounter Procedure Notes * Jaki Hampton DO - 02/18/2024 7:43 PM EST Images [...] Patient location at time of insertion: ICU [address] [place] [address] Procedure Comments: Jaki Hampton DO Associated attestation [...] Hypoxic Respiratory Failure Location of Procedure: ICU [address] [place] [address] Airway Assessment: Dentition: edentulous Mouth Opening: Normal [...] information for follow-up [facility], [place] [address] [place] [address] Transportation: family or friend will provide Functional [...] Type: *No Product type* / Secondary Insurance: [place] Prescription Coverage: Yes This plan was formulated with input from patient and team. All are in agreement with plan. Carie VASQUEZ, RN Phone: [phone] Pager: [phone] * Plan of Care - Elana Maldonado [...] EST HEMATOLOGY NOTE Research RN and this database report writer saw patient on 02/22. I've spoken with [...] continue to review her for eligibility for :[id number]: (SUMMIT) A MULTI-PART, RANDOMIZED, DOUBLE-BLIND, PLACEBO-CONTROLLED PHASE 2 CLINICAL STUDY F/U is being arranged in my clinic. Edmund Truong MD furnace charging machine operator Section of Hematology/Oncology [facility] * Consult Note - Mikki Damon APRN [...] Procedure Component Value - Date/Time Blood culture [[id number]] Collected: 02/18/24950 Lab Status: Preliminary result Specimen: Blood, Venous Updated: 02/22/241200 Blood Culture No growth at 96 hours Blood culture [[id number]] Collected: 02/18/24950 Lab Status: Preliminary result Specimen: Blood, Venous Updated: 02/22/241200 Blood Culture No growth at 96 hours Respiratory Culture, Quantitative [[id number]] (Abnormal) (Susceptibility) Collected: 02/18/24 1446 Lab Status: [...] of inducible AmpC beta-lactamase. MRSA PCR Screen [[id number]] (Normal) Collected: 02/18/24923 Lab Status: Final result Specimen: Swab from Nares Updated: 02/18/24 1710 MRSA PCR Not Detected Narrative: This test was performed using the Xpert MRSA NxG test kit and is run on the deltaDNA Dx System. This test is cleared by the U.S. Food and Drug Administration for clinical use and its performance characteristics have been verified by the Clinical [employer] [facility] [employer] [facility] at [facility]. This test was performed using the Xpert MRSA NxG test kit and is run on the XtimeXInfermedica Dx System. This test is cleared by the U.S. Food and Drug Administration for clinical use and its performance characteristics have been verified by the Clinical [employer] [facility] [employer] [facility] at [facility]. Respiratory Panel PCR [[id number]] (Normal) Collected: 02/18/24923 Lab Status: Final result [...] Narrative: Respiratory Panels are performed on the Electronic Brailler[employer] using multiplexed PCR nucleic acid detection. Negative [...] 81 mg Mikki Damon APRN 02/23/2024 Pager: [phone] * Care Management - Analia Monica E - 02/23/2024 10:55 AM ESTSummary: Advanced Directive Referral AD for [place] is complete. Spouse Karthik is agent [phone] cell Daughter is alternate - Enedelia Lombardi [phone] cell 2nd nima Yenifer Hoang has full [...] Type: *No Product type* / Secondary Insurance: [facility] [place] Last Physical Therapy Recommendation: home with supervision, home with home health with None (02/22/24 1205) Plan for discharge is: Home w/ Services Outpatient Agency/Support Group Needs: None Home Health Services: Occupational Therapy, Physical Therapy, Registered Nurse Agency Referrals: [facility] [address] [place] [address] Transportation: family or friend will provide Barriers [...] discharge Anticipated Date of Discharge: 03/02/2024 Carie VASQUEZ RN CM Phone: [phone] Pager: [phone] * Consult Note - Mikki Damon, SIZE TESTER - 02/22/2024 9:37 AM EST Images from [...] Procedure Component Value - Date/Time Blood culture [[id number]] Collected: 02/18/24950 Lab Status: Preliminary result Specimen: Blood, Venous Updated: 02/21/24 120 Blood Culture No growth at 72 hours Blood culture [[id number]] Collected: 02/18/24950 Lab Status: Preliminary result Specimen: Blood, Venous Updated: 02/21/24 120 Blood Culture No growth at 72 hours Respiratory Culture, Quantitative [[id number]] (Abnormal) (Susceptibility) Collected: 02/18/24 144 Lab Status: Final result Specimen: Bronchial Alveolar [...] of inducible AmpC beta-lactamase. MRSA PCR Screen [[id number]] (Normal) Collected: 02/18/24923 Lab Status: Final result Specimen: Swab from Nares Updated: 02/18/24 1710 MRSA PCR Not Detected Narrative: This test was performed using the Xpert MRSA NxG test kit and is run on the deltaDNA Dx System. This test is cleared by the U.S. Food and Drug Administration for clinical use and its performance characteristics have been verified by the [employer] [facility] [employer] [facility] at [facility]. This test was performed using the Xpert MRSA NxG test kit and is run on the deltaDNA Dx System. This test is cleared by the U.S. Food and Drug Administration for clinical use and its performance characteristics have been verified by the [employer] [facility] [employer] [facility] at [facility]. Respiratory Panel PCR [[id number]] (Normal) Collected: 02/18/24923 Lab Status: Final result [...] Narrative: Respiratory Panels are performed on the Mode[employer] using multiplexed PCR nucleic acid detection. Negative [...] 81 mg Mikki Damon APRN 02/22/2024 Pager: [phone] * Consult Note - Shelly Fox, RN - 02/22/2024 9:30 AM ESTSummary: VAS [...] as Appropriate) * Consult Note - Haley Mendoza, RD - 02/19/2024 1:03 PM EST Nutrition [...] - optimize regimen with goal of 1 l66-33nkl while on TF Monitor BG - goal of 140-180 Daily weights I was able to discuss plan with provider CC R1 5623 . Current Nutrition Regimen: Active Orders Diet [...] 02/17/24 1616 -- 2 Percutaneous Central Line 02/18/241942 Triple Lumen 7 Fr internal jugular vein, left 02/18/24 194-- 1 Chest Tube 02/16/24 1546 Chest Tube [...] encounter: 59.8 kg (131 lb 13.4 oz). [place] Body Weight (IBW) (kg): 52.27 Wt Readings [...] Malnutrition Diagnosis: Not enough data to assess (Sin et jesus, JPEN J Parenteral Enteral Nutr. 2011; 36(3): 273-83) Nutrition to continue to follow up while inpatient Thank you, Haley Mendoza, MS, RD, LD, [facility] Clinical Nutrition * Care Management - Carie [...] type* / Secondary Insurance: [employer] [place] Last Physical Therapy Recommendation: home with supervision, [...] Date of Discharge: 02/23/2024 Carie VASQUEZ, RN CM Phone: [phone] Pager: [phone] * Plan of Care - Alicja Macias [...] and labs collected. Pt transitioned to CPAP. manager patient and vascular both aware of patients need for FMLA paperwork to be filled out. manager patient deferred to the vascular team. Vascular team at bedside and aware of importance of paperwork being filled out in a timely manner. Team stated they would discuss with adult day care worker and follow up, paperwork left at bedside. [...] surrogate would be surrogate decision maker per [place] decision making law. (Only good for 180 days) Any patient receiving care in [place] must abide by [place] law. The hierarchy for surrogate decision making [...] (i) The agent with financial power of disability attorney or a conservator appointed in accordance [...] or living in a nursing home (including now)?: No In the past 12 months has the [employer], gas, oil, or water [employer] threatened to shut off services in your [...] Current DME: none Home Address confirmed as: [address] [place] [phone] Social & Family Supports: All names listed [...] Type: *No Product type* / Secondary Insurance: ; Prescription Coverage: Yes Preferred Pharmacy: [id number] [phone] [facility] [address] [place] [id number] [facility] [address] [facility] [address] Status: Patient is a : No Primary Care Provider confirmed: Estrella Mckya APRN [phone] Patient/Caregiver Goals of Treatment: home with at [...] where referrals are placed. Provided patient with [facility] Star Quality Rating handout. They have requested referrals to: [facility] [address] [place] [address] Expected date of discharge: 02/20/2024 Referral routed to the [employer] for matching with agency/vendor and to provide [...] and coordination of care as indicated. Carie VASQUEZ, RN Phone: [phone] Pager: [phone] Plan of Care - Alicja Macias RN - 02/17/2024 6:30 AM EST OUTCOME SUMMARY: Pts pain increased throughout the night. Educated on use of [employer] button. Pts SBP in the high 80's-low 90's, MAP in the low 60's, team aware. VS order updated. Q2 neurovasc checks unchanged PLAN MOVING FORWARD: Q2 NV documented in this encounter Plan of Treatment Upcoming Encounters Date Type Department Care Team (Late st Contact Info) Description 03/02/2024 8:30 AM EST Office [place] [phone] Sarah Bah APRN [facility] [place] [address] 03/04/2024 7:00 AM EST Appointment Mammography[place] [phone] Edmund Truong MD [facility] [place] [address] 03/07/2024 10:45 AM EST Laboratory Appointment Lab at [facility] Hematology Oncology [address] [place] [phone] 03/07/2024 11:30 AM EST Office Visit Hematology [place] [phone] Bennett Turner, RN 03/07/2024 11:30 AM EST Office Visit Hematology and Oncology at [place] [phone] Edmund Truong MD [facility] [address] [place] [address] 03/10/2024 8:15 AM EST Laboratory Appointment Lab at [facility] Hematology Oncology [address] [place] [phone] 03/10/2024 8:30 AM EST Scheduled View Only Hematology and Oncology at [place] [phone] 03/10/2024 9:00 AM EST Office Visit Hematology and Oncology at [place] [phone] Omid Degroot MD [facility] [place] [address] 03/10/2024 9:00 AM EST Office Visit Hematology and Oncology at [place] [phone] Bennett Turner RN 03/25/2024 9:30 AM EST Tech Visit Vascular Lab at [place] [phone] Carlton Higgins, RVT 03/25/2024 10:15 AM EST Office [place] [phone] Emily Raymond MD [facility] [place] [address] Scheduled Referrals Name Type Priority Associated Diagnoses [...] AM EST URINALYSIS BEAKER MICROSCPIC REFLEX EXAM ([facility]) Routine 02/18/2024 10:13 AM EST URINALYSIS MICROSCOPIC [...] 02/16/2024 8:14 AM EST TYPE AND SCREEN (MC/CGP/GLADYS) STAT 02/16/2024 8:14 AM EST Bypass Graft Othr, Aortobifemoral ([id number]) 02/16/2024 8:06 AM EST Occluded limb prior aorto bifem XR FLUORO NO RAD <1HR - OR USE Routine 02/16/2024 7:48 AM EST BYPASS GRAFT, AORTOBIFEMORAL W\ SYNTHETIC CONDUIT Routine 02/16/2024 5:58 AM EST documented in this encounter Results * Phosphorus (02/24/2024 12:07 AM EST) Phosphorus 4.0 2.5 - 4.5 mg/dL 02/24/2024 12:49 AM EST [facility] Blood VENOUS BLOOD SPECIMEN / Unknown Venipuncture / Unknown 02/24/2024 12:07 AM EST 02/24/2024 12:19 AM EST Emily Raymond MD CHEMISTRY ORDERABLES [facility] [place] [address] * (ABNORMAL) CBC (with Diff) (02/24/2024 12:07 AM EST) White Blood Cell 7.73 4.00 - 9.50 x10(3)/mc L 02/24/2024 12:23 AM [facility] Red Blood Cell 2.87(L) 4.00 - 5.21 x10(6)/mc L 02/24/2024 12:23 AM [facility] Hemoglobin 9.0(L) 11.7 - 15.5 g/dL 02/24/2024 12:23 AM [facility] Hematocrit 27.0(L) 35.7 - 45.8 % 02/24/2024 12:23 AM [facility] Mean Cell Volume 94.1 82.6 - 94.4 fL 02/24/2024 12:23 AM [facility] Mean Cell Hemoglobin 31.4 27.1 - 32.0 pg 02/24/2024 12:23 AM [facility] Mean Cell Hemoglobin Concentration 33.3 31.7 - 35.0 g/dL 02/24/2024 12:23 AM [facility] Platelet 302 145 - 357 x10(3)/mc L 02/24/2024 12:23 AM [facility] Mean Platelet Volume 8.6 7.6 - 12.9 fL 02/24/2024 12:23 AM [facility] RDW Standard Deviation 46.2(H) 37.0 - 46.0 fL 02/24/2024 12:23 AM [facility] RDW coefficient of variation 13.5 11.5 - 14.1 % 02/24/2024 12:23 AM [facility] NRBC% auto 0.0 % 02/24/2024 12:23 AM [facility] NRBC Absolute <0.01 <0.01 x10(3)/mc L 02/24/2024 12:23 AM [facility] Neutrophil % 59.7 % 02/24/2024 12:23 AM [facility] Neutrophil Absolute (ANC) - Automated 4.61 1.70 - 6.10 x10(3)/mc L 02/24/2024 12:23 AM [facility] Lymph % 26.0 % 02/24/2024 12:23 AM [facility] Lymph Absolute 2.01 0.90 - 3.20 x10(3)/mc L 02/24/2024 12:23 AM [facility] Monocyte % 9.8 % 02/24/2024 12:23 AM [facility] Monocyte Absolute 0.76 0.30 - 0.90 x10(3)/mc L 02/24/2024 12:23 AM [facility] Eos % 3.1 % 02/24/2024 12:23 AM [facility] Eos Absolute 0.24 0.00 - 0.40 x10(3)/mc L 02/24/2024 12:23 AM [facility] Basophil % 0.4 % 02/24/2024 12:23 AM [facility] Baso Absolute <0.04 0.00 - 0.10 x10(3)/mc L 02/24/2024 12:23 AM [facility] Immature Gran % 1.0 % 12:23 AM [facility] Immature Gran Absolute 0.08(H) 0.00 - 0.04 x10(3)/mc L 02/24/2024 12:23 AM [facility] Blood VENOUS BLOOD SPECIMEN / Unknown Venipuncture / Unknown 02/24/2024 12:07 AM EST 02/24/2024 12:19 AM EST Emily Raymond MD HEMATOLOGY ORDERABLE S [facility] [place] [address] * (ABNORMAL) Basic Metabolic Panel (02/24/2024 12:07 AM EST) Glucose 115 65 - 199 mg/dL 02/24/2024 12:49 AM [facility] Comment:Glucose Concentratio n >=200 mg/dL plus symptoms is consistent with Diabetes Mellitus. Blood Urea Nitrogen 5(L) 8 - 18 mg/dL 02/24/2024 12:49 AM [facility] Creatinine 0.68(L) 0.70 - 1.20 mg/dL 02/24/2024 12:49 AM [facility] Sodium 143 135 - 145 mMol/L 02/24/2024 12:49 AM [facility] Potassium 3.6 3.5 - 5.0 mMol/L 02/24/2024 12:49 AM [facility] Chloride 107 98 - 107 mMol/L 02/24/2024 12:49 AM [facility] Carbon Dioxide 24 22 - 31 mMol/L 02/24/2024 12:49 AM [facility] Anion Gap 12 5 - 15 mMol/L 02/24/2024 12:49 AM [facility] Calcium 8.6 8.5 - 10.5 mg/dL 02/24/2024 12:49 AM [facility] Est Glomerular Filtration Rate - Female 98 mL/min/1. 73 m?? 02/24/2024 12:49 AM EST [facility] Comment: This patient's estimated GFR [...] Raymond MD CHEMISTRY ORDERABLES Performing Organization Address [facility] Co de Phone Number [facility] [place] [address] * Magnesium (02/24/2024 12:07 AM EST) Pathologist [facility] Magnesium 0.86 0.69 - 1.07 mMol/L 02/24/2024 12:49 AM EST [facility] Blood VENOUS BLOOD SPECIMEN / Unknown Venipuncture / Unknown 02/24/2024 12:07 AM EST 02/24/2024 12:19 AM EST Emily Raymond MD CHEMISTRY ORDERABLES [facility] [place] [address] * EKG 12 Lead (02/23/2024 10:18 PM EST) Ventricular rate 105 BPM MUSE SYSTEM Atrial Rate 105 BPM MUSE SYSTEM P-R Interval 156 ms MUSE SYSTEM QRS Duration 140 ms MUSE SYSTEM Q-T Interval 382 ms MUSE SYSTEM QTC Calculated (Bezet) 504 ms MUSE SYSTEM Calculated P [place] 51 degrees MUSE SYSTEM Calculated R [place] 88 degrees MUSE SYSTEM Calculated T [place] 36 degrees MUSE SYSTEM INTERPRETATION Sinus tachycardia Right bundle branch block Abnormal ECG When compared with ECG of 18-FEB-2024 01:39, Criteria for Septal infarct are no longer Present I personally reviewed the tracing and edited the fellows interpretation Confirmed by fellow MD Domi, Piqua ([id number]) on 02/24/2024 12:23:51 PM Confirmed by Blayne Fermin MD ([id number]) on 02/24/2024 4:13:23 PM MUSE SYSTEM 02/23/2024 10:1 8 PM EST 02/24/2024 4:13 PM EST Emily Raymond MD ECG ORDERABLES MUSE SYSTEM * XR Chest One View (02/23/2024 3:03 PM EST) WORKSTATION ID [id number] RAD Anatomical Region Laterality Modality Chest N/A [...] who have questions please contact the health rental boats caretaker that requested your imaging first. ? Electronically signed by: Demi Valencia MD, [facility] ([phone]), at 02/23/2024 4:50 PM Narrative 02/23/2024 4:50 [...] patients who have questions please contactthe health rental boats caretaker that requested your imaging first. Emily Raymond MD IMG DX ORDERABLES * Potassium (02/23/2024 7:37 AM EST) Potassium 3.7 3.5 - 5.0 mMol/L 02/23/2024 8:25 AM EST [facility] Blood VENOUS BLOOD SPECIMEN / Unknown Venipuncture / Unknown 02/23/2024 7:37 AM EST 02/23/2024 7:56 AM EST Emily Raymond MD CHEMISTRY ORDERABLES Performing Organization Address City/State/[facility] Co de Phone Number [facility] [place] [address] * ECHO LMTD W/O CONTRAST W LMTD SPEC DOPP COLOR DOPP (02/22/2024 3:02 PM EST) Anatomical Region Laterality Modality Cardiac Other 02/22/2024 1:18 PM EST Narrative 02/22/2024 4:40 PM EST [address] [place] [address] ? Echocardiogram Report Name: JT GRAYSON ?Study Date: 02/22/2024 01:18 PMBP: 112/55 mmHg : 1960 ? Height: 160 cm ? Account: [id number] Age: 63 yrs ? Weight: 57 kg Gender: Female ?BSA: 1.6 m2 Ordering Physician: EMILY RAYMOND Referring Physician: JASSON Performed By: Stevo Garcia RDCS Reason For Study: postprocedural hypotension Exam Location: [facility]. Interpretation Summary -Left ventricular systolic function is normal. Left ventricular ejection fraction is estimated visually at 60%. There are no segmental wall motion abnormalities. -Right ventricular systolic function is normal. -No significant valve disease. -No pericardial effusion. -Inferior vena cava is collapsible. -Compared with the previous echo performed on 02/05/24, there is no significant change. Procedure Limited - 39614. Doppler - 45119. Color Doppler - 42385. Satisfactory quality. Left Ventricle Left ventricle is [...] Note Main Mcclain MD - 02/22/2024 [address] [place] [id number] Echocardiogram Report Name: JT GRAYSON Study Date: 401:18 PMBP: 112/55 mmHg : 1960 Height: 160 cm Account: [id number] Age: 63 yrs Weight: 57 kg Gender: Female BSA: 1.6 m2 Ordering Physician: EMILY RAYMOND Referring Physician: UNKNOWN Performed By: Stevo Garcia RDCS Reason For Study: postprocedural hypotension Exam Location: [facility]. Interpretation Summary -Left ventricular systolic function is normal. Left ventricular ejectionfraction is estimated visually at 60%. There are no segmental wall motionabnormalities. -Right ventricular systolic function is normal. -No significant valve disease. -No pericardial effusion. -Inferior vena cava is collapsible. -Compared with the previous echo performed on 02/05/24, there is nosignificant change. Procedure Limited - 73313. Doppler - 37787. Color Doppler - 79770. Satisfactoryquality. Left Ventricle Left ventricle is of [...] Iron and TIBC (02/22/2024 10:16 AM EST) Iron 24(L) 30 - 150 mcg/dL 02/22/2024 11:18 AM EST [facility] TIBC 186(L) 250 - 450 mcg/dL 02/22/2024 11:18 AM EST [facility] Iron Saturation 13(L) 20 - 50 % 11:18 AM [facility] Blood VENOUS BLOOD SPECIMEN / Unknown Venipuncture / Unknown 02/22/2024 10:16 AM EST 02/22/2024 10:37 AM EST Emily Raymond [place] [address] * XR Chest One View (02/22/2024 5:10 AM EST) WORKSTATION ID [id number] RAD Anatomical Region Laterality Modality Chest N/A [...] who have questions please contact the health rental boats caretaker that requested your imaging first. ? Narrative 02/22/2024 6:02 AM EST EXAMINATION: XR CHEST ONE VIEW CLINICAL HISTORY: extubated 02/19; f/u HAP and atelectasis, pulmonary edema TECHNIQUE: 1 view of the chest COMPARISON: Chest radiograph 02/20/2024 FINDINGS: Support devices: * ??Left IJ venous catheter tip projects over the central SVC. * ??Enteric tube courses below the diaphragm, tip excluded from [id number]. * ??Left apically directed thoracostomy tube, unchanged [...] tube courses below the diaphragm, tip excluded [id number]. * Left apically directed thoracostomy tube, unchanged [...] patients who have questions please contactthe health rental boats caretaker that requested your imaging first. Emily Raymond MD IMG DX ORDERABLES * (ABNORMAL) CBC (with Diff) (02/22/2024 12:20 AM EST) White Blood Cell 7.28 4.00 - 9.50 x10(3)/mc L 02/22/2024 12:49 AM EST [facility] Red Blood Cell 2.60(L) 4.00 - 5.21 x10(6)/mc L 02/22/2024 12:49 AM EST [facility] Hemoglobin 8.1(L) 11.7 - 15.5 g/dL 02/22/2024 12:49 AM [facility] Hematocrit 24.6(L) 35.7 - 45.8 % 02/22/2024 12:49 AM [facility] Mean Cell Volume 94.6(H) 82.6 - 94.4 fL 02/22/2024 12:49 AM [facility] Mean Cell Hemoglobin 31.2 27.1 - 32.0 pg 02/22/2024 12:49 AM [facility] Mean Cell Hemoglobin Concentration 32.9 31.7 - 35.0 g/dL 02/22/2024 12:49 AM [facility] Platelet 271 145 - 357 x10(3)/mc L 02/22/2024 12:49 AM [facility] Mean Platelet Volume 8.7 7.6 - 12.9 fL 02/22/2024 12:49 AM [facility] RDW Standard Deviation 46.0 37.0 - 46.0 fL 02/22/2024 12:49 AM [facility] RDW coefficient of variation 13.3 11.5 - 14.1 % 02/22/2024 12:49 AM [facility] NRBC% auto 0.0 % 02/22/2024 12:49 AM [facility] NRBC Absolute <0.01 <0.01 x10(3)/mc L 02/22/2024 12:49 AM [facility] Neutrophil % 50.4 % 02/22/2024 12:49 AM [facility] Neutrophil Absolute (ANC) - Automated 3.67 1.70 - 6.10 x10(3)/mc L 02/22/2024 12:49 AM [facility] Lymph % 33.7 % 02/22/2024 12:49 AM [facility] Lymph Absolute 2.45 0.90 - 3.20 x10(3)/mc L 02/22/2024 12:49 AM [facility] Monocyte % 10.0 % 02/22/2024 12:49 AM EST [facility] Monocyte Absolute 0.73 0.30 - 0.90 x10(3)/mc L 02/22/2024 12:49 AM EST [facility] Eos % 4.1 % 02/22/2024 12:49 AM [facility] Eos Absolute 0.30 0.00 - 0.40 x10(3)/mc L 02/22/2024 12:49 AM EST [facility] Basophil % 0.4 % 02/22/2024 12:49 AM [facility] Baso Absolute <0.04 0.00 - 0.10 x10(3)/mc L 02/22/2024 12:49 AM [facility] Immature Gran % 1.4 % 12:49 AM [facility] Immature Gran Absolute 0.10(H) 0.00 - 0.04 x10(3)/mc L 02/22/2024 12:49 AM [facility] Blood VENOUS BLOOD SPECIMEN / Unknown Venipuncture / Unknown 02/22/2024 12:20 AM EST 02/22/2024 12:40 AM EST Emily Raymond MD HEMATOLOGY ORDERABLE S [facility] [place] [address] * (ABNORMAL) Basic Metabolic Panel (02/22/2024 12:20 AM EST) Glucose 124 65 - 199 mg/dL 02/22/2024 1:16 AM EST [facility] Comment:Glucose Concentratio n >=200 mg/dL plus symptoms is consistent with Diabetes Mellitus. Blood Urea Nitrogen 6(L) 8 - 18 mg/dL 02/22/2024 1:16 AM [facility] Creatinine 0.58(L) 0.70 - 1.20 mg/dL 02/22/2024 1:16 AM EST [facility] Sodium 139 135 - 145 mMol/L 02/22/2024 1:16 AM [facility] Potassium 3.3(L) 3.5 - 5.0 mMol/L 02/22/2024 1:16 AM [facility] Chloride 104 98 - 107 mMol/L 02/22/2024 1:16 AM [facility] Carbon Dioxide 26 22 - 31 mMol/L 02/22/2024 1:16 AM [facility] Anion Gap 9 5 - 15 mMol/L 02/22/2024 1:16 AM [facility] Calcium 8.2(L) 8.5 - 10.5 mg/dL 02/22/2024 1:16 AM [facility] Est Glomerular Filtration Rate - Female 102 mL/min/1. 73 m?? 02/22/2024 1:16 AM [facility] Comment: This patient's estimated GFR was [...] AM EST Emily Raymond MD CHEMISTRY ORDERABLES [facility] [place] [address] * Phosphorus (02/22/2024 12:20 AM EST) Phosphorus 3.9 2.5 - 4.5 mg/dL 02/22/2024 1:16 AM [facility] Blood VENOUS BLOOD SPECIMEN / Unknown Venipuncture / Unknown 02/22/2024 12:20 AM EST 02/22/2024 12:40 AM EST Emily Raymond MD CHEMISTRY ORDERABLES Performing Organization Address City/[facility]/ZIP Co de Phone Number [facility] [place] [address] * Magnesium (02/22/2024 12:20 AM EST) Pathologist [facility] Magnesium 0.85 0.69 - 1.07 mMol/L 02/22/2024 1:16 AM [facility] Blood VENOUS BLOOD SPECIMEN / Unknown Venipuncture / Unknown 02/22/2024 12:20 AM EST 02/22/2024 12:40 AM EST Emily Raymond MD CHEMISTRY ORDERABLES Performing Organization Address City/[facility] Co de Phone Number [facility] [place] [address] * (ABNORMAL) CBC (with Diff) (02/21/2024 1:24 AM EST) Pathologist [facility] White Blood Cell 6.95 4.00 - 9.50 x10(3)/mc L 02/21/2024 1:44 AM [facility] Red Blood Cell 2.64(L) 4.00 - 5.21 x10(6)/mc L 02/21/2024 1:44 AM [facility] Hemoglobin 8.2(L) 11.7 - 15.5 g/dL 02/21/2024 1:44 AM [facility] Hematocrit 24.8(L) 35.7 - 45.8 % 02/21/2024 1:44 AM [facility] Mean Cell Volume 93.9 82.6 - 94.4 fL 02/21/2024 1:44 AM [facility] Mean Cell Hemoglobin 31.1 27.1 - 32.0 pg 02/21/2024 1:44 AM [facility] Mean Cell Hemoglobin Concentration 33.1 31.7 - 35.0 g/dL 02/21/2024 1:44 AM [facility] Platelet 238 145 - 357 x10(3)/mc L 02/21/2024 1:44 AM [facility] Mean Platelet Volume 8.6 7.6 - 12.9 fL 02/21/2024 1:44 AM [facility] RDW Standard Deviation 46.5(H) 37.0 - 46.0 fL 02/21/2024 1:44 AM [facility] RDW coefficient of variation 13.4 11.5 - 14.1 % 02/21/2024 1:44 AM [facility] NRBC% auto 0.0 % 02/21/2024 1:44 AM [facility] NRBC Absolute <0.01 <0.01 x10(3)/mc L 02/21/2024 1:44 AM [facility] Neutrophil % 57.1 % 02/21/2024 1:44 AM [facility] Neutrophil Absolute (ANC) - Automated 3.97 1.70 - 6.10 x10(3)/mc L 02/21/2024 1:44 AM [facility] Lymph % 30.8 % 02/21/2024 1:44 AM [facility] Lymph Absolute 2.14 0.90 - 3.20 x10(3)/mc L 02/21/2024 1:44 AM [facility] Monocyte % 8.5 % 02/21/2024 1:44 AM [facility] Monocyte Absolute 0.59 0.30 - 0.90 x10(3)/mc L 02/21/2024 1:44 AM [facility] Eos % 2.6 % 02/21/2024 1:44 AM [facility] Eos Absolute 0.18 0.00 - 0.40 x10(3)/mc L 02/21/2024 1:44 AM [facility] Basophil % 0.4 % 02/21/2024 1:44 AM [facility] Baso Absolute <0.04 0.00 - 0.10 x10(3)/mc L 02/21/2024 1:44 AM [facility] Immature Gran % 0.6 % 1:44 AM [facility] Immature Gran Absolute 0.04 0.00 - 0.04 x10(3)/mc L 02/21/2024 1:44 AM [facility] Blood VENOUS BLOOD SPECIMEN / Unknown Venipuncture / Unknown 02/21/2024 1:24 AM EST 02/21/2024 1:31 AM EST Emily Raymond MD HEMATOLOGY ORDERABLE S Performing Organization Address City/State/[facility] Co de Phone Number [facility] [place] [address] * (ABNORMAL) Basic Metabolic Panel (02/21/2024 1:24 AM EST) Glucose 82 65 - 199 mg/dL 02/21/2024 2:04 AM [facility] Comment:Glucose Concentratio n >=200 mg/dL plus symptoms is consistent with Diabetes Mellitus. Blood Urea Nitrogen 6(L) 8 - 18 mg/dL 02/21/2024 2:04 AM [facility] Creatinine 0.57(L) 0.70 - 1.20 mg/dL 02/21/2024 2:04 AM [facility] Sodium 141 135 - 145 mMol/L 02/21/2024 2:04 AM [facility] Potassium 3.5 3.5 - 5.0 mMol/L 02/21/2024 2:04 AM [facility] Chloride 105 98 - 107 mMol/L 02/21/2024 2:04 AM [facility] Carbon Dioxide 26 22 - 31 mMol/L 02/21/2024 2:04 AM [facility] Anion Gap 10 5 - 15 mMol/L 02/21/2024 2:04 AM EST [facility] Calcium 8.1(L) 8.5 - 10.5 mg/dL 02/21/2024 2:04 AM EST [facility] Est Glomerular Filtration Rate - Female 102 mL/min/1. 73 m?? 02/21/2024 2:04 AM EST [facility] Comment: This patient's estimated GFR [...] AM EST Emily Raymond MD CHEMISTRY ORDERABLES [facility] [place] [address] * Phosphorus (02/21/2024 1:24 AM EST) Phosphorus 3.3 2.5 - 4.5 mg/dL 02/21/2024 2:04 AM EST [facility] Blood VENOUS BLOOD SPECIMEN / Unknown Venipuncture / Unknown 02/21/2024 1:24 AM EST 02/21/2024 1:31 AM EST Emily Raymond MD CHEMISTRY ORDERABLES [facility] [place] [address] * Magnesium (02/21/2024 1:24 AM EST) Magnesium 0.85 0.69 - 1.07 mMol/L 02/21/2024 2:04 AM EST [facility] Blood VENOUS BLOOD SPECIMEN / Unknown Venipuncture / Unknown 02/21/2024 1:24 AM EST 02/21/2024 1:31 AM EST Emily Raymond MD CHEMISTRY ORDERABLES Performing Organization Address City/[facility]/ZIP Co de Phone Number [facility] [place] [address] * Potassium (02/20/2024 6:40 PM EST) Potassium 3.7 3.5 - 5.0 mMol/L 02/20/2024 8:00 PM EST [facility] Blood VENOUS BLOOD SPECIMEN / Unknown Central/PICC Line / Unknown 02/20/2024 6:40 PM EST 02/20/2024 6:50 PM EST Emily Raymond MD CHEMISTRY ORDERABLES [facility] [place] [address] * Potassium (02/20/2024 10:56 AM EST) Potassium 3.5 3.5 - 5.0 mMol/L 02/20/2024 11:57 AM EST [facility] Blood VENOUS BLOOD SPECIMEN / Unknown Venipuncture / Unknown 02/20/2024 10:56 AM EST 02/20/2024 11:10 AM EST Emily Raymond MD CHEMISTRY ORDERABLES [facility] [place] [address] * XR Chest One View (02/20/2024 5:04 AM EST) WORKSTATION ID [id number] DH RAD Anatomical Region Laterality Modality Chest N/A [...] who have questions please contact the health rental boats caretaker that requested your imaging first. ? Electronically signed by: Clark Johnson MD, [facility] ([phone]), at 02/20/2024 6:10 AM Narrative 02/20/2024 6:10 [...] below the diaphragm, tip not included the [id number] but side port projecting over the stomach. [...] projects below the diaphragm, tip not included [id number] but side port projecting over the stomach. [...] patients who have questions please contactthe health rental boats caretaker that requested your imaging first. Emily Raymond MD IMG DX ORDERABLES * (ABNORMAL) CBC (with Diff) (02/20/2024 12:06 AM EST) White Blood Cell 9.76(H) 4.00 - 9.50 x10(3)/mc L 02/20/2024 12:26 AM EST [facility] Red Blood Cell 2.74(L) 4.00 - 5.21 x10(6)/mc L 02/20/2024 12:26 AM [facility] Hemoglobin 8.5(L) 11.7 - 15.5 g/dL 02/20/2024 12:26 AM [facility] Hematocrit 26.0(L) 35.7 - 45.8 % 02/20/2024 12:26 AM [facility] Mean Cell Volume 94.9(H) 82.6 - 94.4 fL 02/20/2024 12:26 AM [facility] Mean Cell Hemoglobin 31.0 27.1 - 32.0 pg 02/20/2024 12:26 AM [facility] Mean Cell Hemoglobin Concentration 32.7 31.7 - 35.0 g/dL 02/20/2024 12:26 AM [facility] Platelet 214 145 - 357 x10(3)/mc L 02/20/2024 12:26 AM [facility] Mean Platelet Volume 9.2 7.6 - 12.9 fL 02/20/2024 12:26 AM [facility] RDW Standard Deviation 46.6(H) 37.0 - 46.0 fL 02/20/2024 12:26 AM [facility] RDW coefficient of variation 13.6 11.5 - 14.1 % 02/20/2024 12:26 AM [facility] NRBC% auto 0.0 % 02/20/2024 12:26 AM [facility] NRBC Absolute <0.01 <0.01 x10(3)/mc L 02/20/2024 12:26 AM [facility] Neutrophil % 59.4 % 02/20/2024 12:26 AM [facility] Neutrophil Absolute (ANC) - Automated 5.79 1.70 - 6.10 x10(3)/mc L 02/20/2024 12:26 AM [facility] Lymph % 28.7 % 02/20/2024 12:26 AM [facility] Lymph Absolute 2.80 0.90 - 3.20 x10(3)/mc L 02/20/2024 12:26 AM EST [facility] Monocyte % 9.3 % 02/20/2024 12:26 AM [facility] Monocyte Absolute 0.91(H) 0.30 - 0.90 x10(3)/mc L 02/20/2024 12:26 AM [facility] Eos % 1.8 % 02/20/2024 12:26 AM [facility] Eos Absolute 0.18 0.00 - 0.40 x10(3)/mc L 02/20/2024 12:26 AM [facility] Basophil % 0.2 % 02/20/2024 12:26 AM [facility] Baso Absolute <0.04 0.00 - 0.10 x10(3)/mc L 02/20/2024 12:26 AM [facility] Immature Gran % 0.6 % 12:26 AM [facility] Immature Gran Absolute 0.06(H) 0.00 - 0.04 x10(3)/mc L 02/20/2024 12:26 AM [facility] Blood VENOUS BLOOD SPECIMEN / Unknown Venipuncture / Unknown 02/20/2024 12:06 AM EST 02/20/2024 12:21 AM EST Emily Raymond MD HEMATOLOGY ORDERABLE S [facility] [place] [address] * (ABNORMAL) Basic Metabolic Panel (02/20/2024 12:06 AM EST) Glucose 117 65 - 199 mg/dL 02/20/2024 12:49 AM [facility] Comment:Glucose Concentratio n >=200 mg/dL plus symptoms is consistent with Diabetes Mellitus. Blood Urea Nitrogen 6(L) 8 - 18 mg/dL 02/20/2024 12:49 AM [facility] Creatinine 0.59(L) 0.70 - 1.20 mg/dL 02/20/2024 12:49 AM EST [facility] Sodium 141 135 - 145 mMol/L 02/20/2024 12:49 AM [facility] Potassium 3.6 3.5 - 5.0 mMol/L 02/20/2024 12:49 AM [facility] Chloride 106 98 - 107 mMol/L 02/20/2024 12:49 AM [facility] Carbon Dioxide 27 22 - 31 mMol/L 02/20/2024 12:49 AM [facility] Anion Gap 8 5 - 15 mMol/L 02/20/2024 12:49 AM [facility] Calcium 8.0(L) 8.5 - 10.5 mg/dL 02/20/2024 12:49 AM [facility] Est Glomerular Filtration Rate - Female 101 mL/min/1. 73 m?? 02/20/2024 12:49 AM [facility] Comment: This patient's estimated GFR was [...] AM EST Emily Raymond MD CHEMISTRY ORDERABLES [facility] [place] [address] * Phosphorus (02/20/2024 12:06 AM EST) Phosphorus 2.7 2.5 - 4.5 mg/dL 02/20/2024 12:49 AM EST [facility] Blood VENOUS BLOOD SPECIMEN / Unknown Venipuncture / Unknown 02/20/2024 12:06 AM EST 02/20/2024 12:21 AM EST Emily Raymond MD CHEMISTRY ORDERABLES Performing Organization Address City/[facility]/ZIP Co de Phone Number [facility] [place] [place] [address] * Magnesium (02/20/2024 12:06 AM EST) Magnesium 0.83 0.69 - 1.07 mMol/L 02/20/2024 12:49 AM EST [facility] Blood VENOUS BLOOD SPECIMEN / Unknown Venipuncture / Unknown 02/20/2024 12:06 AM EST 02/20/2024 12:21 AM EST Emily Raymond MD CHEMISTRY ORDERABLES Performing Organization Address [facility] Co de Phone Number [facility] [place] [address] * POC, GLUCOSE (02/19/2024 8:00 AM EST) Pathologist [facility] Glucometer, POC 120 65 - 199 mg/dL 02/19/2024 8:02 AM EST [facility] Comment:Supplemental ranges: <140 mg/dL before meals <180 mg/dL all other times of the day. Blood CAPILLARY BLOOD / Unknown 02/19/2024 8:00 AM EST 02/19/2024 8:02 AM EST Emily Raymond MD POINT OF CARE TEST O RDERABLES Performing Organization Address City/[facility]/ZIP Co de Phone Number [facility] [place] [place] [address] * Phosphorus (02/19/2024 8:00 AM EST) Phosphorus 2.6 2.5 - 4.5 mg/dL 02/19/2024 9:16 AM [facility] Blood VENOUS BLOOD SPECIMEN / Unknown Venipuncture / Unknown 02/19/2024 8:00 AM EST 02/19/2024 8:17 AM EST Emily Raymond MD CHEMISTRY ORDERABLES [facility] [place] [address] * (ABNORMAL) Basic Metabolic Panel (02/19/2024 8:00 AM EST) Glucose 111 65 - 199 mg/dL 02/19/2024 9:16 AM [facility] Comment:Glucose Concentratio n >=200 mg/dL plus symptoms is consistent with Diabetes Mellitus. Blood Urea Nitrogen 5(L) 8 - 18 mg/dL 02/19/2024 9:16 AM [facility] Creatinine 0.54(L) 0.70 - 1.20 mg/dL 02/19/2024 9:16 AM [facility] Sodium 139 135 - 145 mMol/L 02/19/2024 9:16 AM [facility] Potassium 3.8 3.5 - 5.0 mMol/L 02/19/2024 9:16 AM [facility] Chloride 104 98 - 107 mMol/L 02/19/2024 9:16 AM [facility] Carbon Dioxide 28 22 - 31 mMol/L 02/19/2024 9:16 AM [facility] Anion Gap 7 5 - 15 mMol/L 02/19/2024 9:16 AM [facility] Calcium 7.8(L) 8.5 - 10.5 mg/dL 02/19/2024 9:16 AM [facility] Est Glomerular Filtration Rate - Female 104 mL/min/1. 73 m?? 02/19/2024 9:16 AM [facility] Comment: This patient's estimated GFR was [...] Raymond MD CHEMISTRY ORDERABLES Performing Organization Address [facility] Co de Phone Number [facility] [place] [address] * POC, GLUCOSE (02/19/2024 4:00 AM EST) Glucometer, POC 150 65 - 199 mg/dL 02/19/2024 4:00 AM EST [facility] Comment:Supplemental ranges: <140 mg/dL before meals <180 mg/dL all other times of the day. Blood CAPILLARY BLOOD / Unknown 02/19/2024 4:00 AM EST 02/19/2024 4:00 AM EST Emily Raymond MD POINT OF CARE TEST O RDERABLES Performing Organization Address [facility]/ZIP Co de Phone Number [facility] [place] [address] * POC, GLUCOSE (02/19/2024 12:03 AM EST) Glucometer, POC 130 65 - 199 mg/dL 02/19/2024 12:03 AM EST [facility] Comment:Supplemental ranges: <140 mg/dL before meals <180 mg/dL all other times of the day. Blood CAPILLARY BLOOD / Unknown 02/19/2024 12:03 AM EST 02/19/2024 12:03 AM EST Emily Raymond MD POINT OF CARE TEST O RDERABLES [facility] [place] [address] * (ABNORMAL) CBC (with Diff) (02/19/2024 12:03 AM EST) White Blood Cell 11.99(H) 4.00 - 9.50 x10(3)/mc L 02/19/2024 12:25 AM [facility] Red Blood Cell 2.83(L) 4.00 - 5.21 x10(6)/mc L 02/19/2024 12:25 AM [facility] Hemoglobin 8.9(L) 11.7 - 15.5 g/dL 02/19/2024 12:25 AM [facility] Hematocrit 26.9(L) 35.7 - 45.8 % 02/19/2024 12:25 AM [facility] Mean Cell Volume 95.1(H) 82.6 - 94.4 fL 02/19/2024 12:25 AM [facility] Mean Cell Hemoglobin 31.4 27.1 - 32.0 pg 02/19/2024 12:25 AM [facility] Mean Cell Hemoglobin Concentration 33.1 31.7 - 35.0 g/dL 02/19/2024 12:25 AM [facility] Platelet 192 145 - 357 x10(3)/mc L 02/19/2024 12:25 AM [facility] Mean Platelet Volume 8.7 7.6 - 12.9 fL 02/19/2024 12:25 AM [facility] RDW Standard Deviation 48.6(H) 37.0 - 46.0 fL 02/19/2024 12:25 AM [facility] RDW coefficient of variation 13.9 11.5 - 14.1 % 02/19/2024 12:25 AM [facility] NRBC% auto 0.0 % 02/19/2024 12:25 AM [facility] NRBC Absolute <0.01 <0.01 x10(3)/mc L 02/19/2024 12:25 AM [facility] Neutrophil % 70.1 % 02/19/2024 12:25 AM [facility] Neutrophil Absolute (ANC) - Automated 8.42(H) 1.70 - 6.10 x10(3)/mc L 02/19/2024 12:25 AM [facility] Lymph % 21.9 % 02/19/2024 12:25 AM [facility] Lymph Absolute 2.62 0.90 - 3.20 x10(3)/mc L 02/19/2024 12:25 AM [facility] Monocyte % 6.3 % 02/19/2024 12:25 AM [facility] Monocyte Absolute 0.75 0.30 - 0.90 x10(3)/mc L 02/19/2024 12:25 AM [facility] Eos % 0.8 % 02/19/2024 12:25 AM [facility] Eos Absolute 0.09 0.00 - 0.40 x10(3)/mc L 02/19/2024 12:25 AM [facility] Basophil % 0.3 % 02/19/2024 12:25 AM [facility] Baso Absolute 0.04 0.00 - 0.10 x10(3)/mc L 02/19/2024 12:25 AM [facility] Immature Gran % 0.6 % 12:25 AM [facility] Immature Gran Absolute 0.07(H) 0.00 - 0.04 x10(3)/mc L 02/19/2024 12:25 AM [facility] Blood VENOUS BLOOD SPECIMEN / Unknown Venipuncture / Unknown 02/19/2024 12:03 AM EST 02/19/2024 12:18 AM EST Emily Raymond MD HEMATOLOGY ORDERABLE S [facility] [place] [address] * (ABNORMAL) Basic Metabolic Panel (02/19/2024 12:03 AM EST) Glucose 130 65 - 199 mg/dL 02/19/2024 12:46 AM [facility] Comment:Glucose Concentratio n >=200 mg/dL plus symptoms is consistent with Diabetes Mellitus. Blood Urea Nitrogen 6(L) 8 - 18 mg/dL 02/19/2024 12:46 AM [facility] Creatinine 0.59(L) 0.70 - 1.20 mg/dL 02/19/2024 12:46 AM [facility] Sodium 141 135 - 145 mMol/L 02/19/2024 12:46 AM [facility] Potassium 3.4(L) 3.5 - 5.0 mMol/L 02/19/2024 12:46 AM [facility] Chloride 107 98 - 107 mMol/L 02/19/2024 12:46 AM [facility] Carbon Dioxide 26 22 - 31 mMol/L 02/19/2024 12:46 AM [facility] Anion Gap 8 5 - 15 mMol/L 02/19/2024 12:46 AM [facility] Calcium 8.0(L) 8.5 - 10.5 mg/dL 02/19/2024 12:46 AM [facility] Est Glomerular Filtration Rate - Female 101 mL/min/1. 73 m?? 02/19/2024 12:46 AM [facility] Comment: This patient's estimated GFR was [...] Raymond MD CHEMISTRY ORDERABLES Performing Organization Address City/[facility]/ZIP Co de Phone Number [facility] [place] [place] [address] * (ABNORMAL) Phosphorus (02/19/2024 12:03 AM EST) Phosphorus 2.3(L) 2.5 - 4.5 mg/dL 02/19/2024 12:46 AM EST [facility] Blood VENOUS BLOOD SPECIMEN / Unknown Venipuncture / Unknown 02/19/2024 12:03 AM EST 02/19/2024 12:18 AM EST Eimly Raymond MD CHEMISTRY ORDERABLES Performing Organization Address City/[facility]/ZIP Co de Phone Number [facility] [place] [place] [address] * Magnesium (02/19/2024 12:03 AM EST) Magnesium 0.77 0.69 - 1.07 mMol/L 02/19/2024 12:46 AM EST [facility] Blood VENOUS BLOOD SPECIMEN / Unknown Venipuncture / Unknown 02/19/2024 12:03 AM EST 02/19/2024 12:18 AM EST Emily Raymond MD CHEMISTRY ORDERABLES Performing Organization Address City/[facility]/ZIP Co de Phone Number [facility] [place] [address] * POC, GLUCOSE (02/18/2024 8:36 PM EST) Glucometer, POC 150 65 - 199 mg/dL 02/18/2024 8:36 PM EST [facility] Comment:Supplemental ranges: <140 mg/dL before meals <180 mg/dL all other times of the day. Blood CAPILLARY BLOOD / Unknown 02/18/2024 8:36 PM EST 02/18/2024 8:36 PM EST Emily Raymond MD POINT OF CARE TEST O RDERABLES [facility] [place] [address] * XR Chest One View (02/18/2024 8:07 PM EST) WORKSTATION ID [id number] RAD Anatomical Region Laterality Modality Chest N/A [...] who have questions please contact the health rental boats caretaker that requested your imaging first. ? Narrative 02/19/2024 12:17 AM EST EXAMINATION: XR CHEST ONE VIEW CLINICAL HISTORY: interval central line placement TECHNIQUE: 1 view of the chest COMPARISON: Chest x-ray performed earlier the same date FINDINGS: ET tube terminates approximately 4.4 cm above the rema. Enteric tube since below the diaphragm and included [id number]. New left IJ central venous catheter projects [...] Enteric tubesince below the diaphragm and included [id number]. New left IJ centralvenous catheter projects over [...] patients who have questions please contactthe health rental boats caretaker that requested your imaging first. Electronically signed by: Luis Enrique Pena MD, [facility]([phone]), at 02/19/2024 12:17 AM Emily Raymond MD IMG DX ORDERABLES * POC, GLUCOSE (02/18/2024 4:11 PM EST) Pathologist [facility] Glucometer, POC 113 65 - 199 mg/dL 02/18/2024 4:11 PM EST [facility] Comment:Supplemental ranges: <140 mg/dL before meals <180 mg/dL all other times of the day. Blood CAPILLARY BLOOD / Unknown 02/18/2024 4:11 PM EST 02/18/2024 4:11 PM EST Emily Raymond MD POINT OF CARE TEST O RDERABLES [facility] [place] [address] * (ABNORMAL) CBC (with Diff) (02/18/2024 2:55 PM EST) [facility] White Blood Cell 9.95(H) 4.00 - 9.50 x10(3)/mc L 02/18/2024 3:14 PM [facility] Red Blood Cell 2.98(L) 4.00 - 5.21 x10(6)/mc L 02/18/2024 3:14 PM [facility] Hemoglobin 9.3(L) 11.7 - 15.5 g/dL 02/18/2024 3:14 PM [facility] Hematocrit 28.7(L) 35.7 - 45.8 % 02/18/2024 3:14 PM [facility] Mean Cell Volume 96.3(H) 82.6 - 94.4 fL 02/18/2024 3:14 PM [facility] Mean Cell Hemoglobin 31.2 27.1 - 32.0 pg 02/18/2024 3:14 PM [facility] Mean Cell Hemoglobin Concentration 32.4 31.7 - 35.0 g/dL 02/18/2024 3:14 PM [facility] Platelet 183 145 - 357 x10(3)/mc L 02/18/2024 3:14 PM [facility] Mean Platelet Volume 8.9 7.6 - 12.9 fL 02/18/2024 3:14 PM [facility] RDW Standard Deviation 49.0(H) 37.0 - 46.0 fL 02/18/2024 3:14 PM [facility] RDW coefficient of variation 13.9 11.5 - 14.1 % 02/18/2024 3:14 PM [facility] NRBC% auto 0.0 % 02/18/2024 3:14 PM [facility] NRBC Absolute <0.01 <0.01 x10(3)/mc L 02/18/2024 3:14 PM [facility] Neutrophil % 68.2 % 02/18/2024 3:14 PM [facility] Neutrophil Absolute (ANC) - Automated 6.78(H) 1.70 - 6.10 x10(3)/mc L 02/18/2024 3:14 PM [facility] Lymph % 23.8 % 02/18/2024 3:14 PM [facility] Lymph Absolute 2.37 0.90 - 3.20 x10(3)/mc L 02/18/2024 3:14 PM [facility] Monocyte % 7.1 % 02/18/2024 3:14 PM [facility] Monocyte Absolute 0.71 0.30 - 0.90 x10(3)/mc L 02/18/2024 3:14 PM [facility] Eos % 0.3 % 02/18/2024 3:14 PM [facility] Eos Absolute <0.04 0.00 - 0.40 x10(3)/mc L 02/18/2024 3:14 PM [facility] Basophil % 0.1 % 02/18/2024 3:14 PM [facility] Baso Absolute <0.04 0.00 - 0.10 x10(3)/mc L 02/18/2024 3:14 PM EST [facility] Immature Gran % 0.5 % 3:14 PM [facility] Immature Gran Absolute 0.05(H) 0.00 - 0.04 x10(3)/mc L 02/18/2024 3:14 PM [facility] Blood VENOUS BLOOD SPECIMEN / Unknown Venipuncture / Unknown 02/18/2024 2:55 PM EST 02/18/2024 3:06 PM EST Emily Raymond MD HEMATOLOGY ORDERABLE S [facility] [place] [address] * (ABNORMAL) Basic Metabolic Panel (02/18/2024 2:55 PM EST) Glucose 111 65 - 199 mg/dL 02/18/2024 3:49 PM [facility] Comment:Glucose Concentratio n >=200 mg/dL plus symptoms is consistent with Diabetes Mellitus. Blood Urea Nitrogen 6(L) 8 - 18 mg/dL 02/18/2024 3:49 PM [facility] Creatinine 0.66(L) 0.70 - 1.20 mg/dL 02/18/2024 3:49 PM [facility] Sodium 143 135 - 145 mMol/L 02/18/2024 3:49 PM [facility] Potassium 3.4(L) 3.5 - 5.0 mMol/L 02/18/2024 3:49 PM [facility] Chloride 107 98 - 107 mMol/L 02/18/2024 3:49 PM [facility] Carbon Dioxide 29 22 - 31 mMol/L 02/18/2024 3:49 PM [facility] Anion Gap 7 5 - 15 mMol/L 02/18/2024 3:49 PM [facility] Calcium 7.9(L) 8.5 - 10.5 mg/dL 02/18/2024 3:49 PM EST [facility] Est Glomerular Filtration Rate - Female 99 mL/min/1. 73 m?? 02/18/2024 3:49 PM EST [facility] Comment: This patient's estimated GFR [...] PM EST Emily Raymond MD CHEMISTRY ORDERABLES [facility] [place] [address] * (ABNORMAL) Respiratory Culture, Quantitative (02/18/2024 2:46 PM EST) Quantitative Bacterial Culture 4,000 CFU/mL Citrobacter freundii complex(A) VITEK 2 METHOD 02/20/2024 9:37 AM EST [facility] Gram Stain Cytocentrifuge Gram Stain performed 02/20/2024 9:37 AM EST [facility] Gram Stain Neutrophils seen 02/20/20 9:37 AM EST [facility] Gram Stain No microorganisms seen 02/20/2024 9:37 AM EST [facility] Bronchial Alveolar Lavage STRUCTURE OF [...] Raymond MD MICROBIOLOGY - GENER AL ORDERABLES [facility] [place] [address] * (ABNORMAL) Blood Gas, Venous POC (02/18/2024 1:46 PM EST) pH, Venous 7.33 7.32 - 7.42 02/18/2024 1:47 PM EST [facility] PCO2, Venous 52 38 - 58 mmHg 02/18/2024 1:47 PM EST [facility] PO2, Venous 27 16 - 65 mmHg 02/18/2024 1:47 PM EST [facility] Bicarbonate, Venous 27.2 22 - 31 mmol/L 02/18/2024 1:47 PM EST [facility] Base Excess, Venous 1.3(L) 1.9 - 4.5 mmol/L 02/18/2024 1:47 PM EST [facility] Hemoglobin, Venous 9.9(L) 11.7 - 15.5 g/dL 02/18/2024 1:47 PM EST [facility] Oxyhemoglobin, Venous 45.0 % 02/18/2024 1:47 PM EST [facility] Carboxyhemoglobin , Venous 1.2 % 02/18/2024 1:47 PM [facility] Comment: Nonsmokers: 0.5-1.5% COHB ?? Smokers: Variable ??but usually less than 10% ?? Toxic: 20-30% COHB ?? Lethal: Greater than 60% COHB Methemoglobin, Venous 0.3 <=1.5 % 02/18/2024 1:47 PM [facility] Sodium, Venous 138 135 - 145 mmol/L 02/18/2024 1:47 PM [facility] Potassium, Venous 3.2(L) 3.5 - 5.0 mmol/L 02/18/2024 1:47 PM [facility] Chloride, Venous 106 98 - 107 mmol/L 02/18/2024 1:47 PM [facility] Glucose, Venous 109 65 - 199 mg/dL 02/18/2024 1:47 PM [facility] Comment:Glucose Concentratio n >=200 mg/dL plus symptoms is consistent with Diabetes Mellitus. Lactate, Venous 2.4(H) 0.5 - 2.2 mmol/L 02/18/2024 1:47 PM [facility] Ionized Calcium, Venous 1.10(L) 1.15 - 1.33 mmol/L 02/18/2024 1:47 PM [facility] Blood VENOUS BLOOD SPECIMEN / Unknown 02/18/2024 1:46 PM EST 02/18/2024 1:47 PM EST Emily Raymond MD POINT OF CARE TEST O RDERABLES [facility] [place] [address] * POC, GLUCOSE (02/18/2024 12:14 PM EST) [facility] Signature Glucometer, POC 120 65 - 199 mg/dL 02/18/2024 12:14 PM [facility] Comment:Supplemental ranges: <140 mg/dL before meals <180 mg/dL all other times of the day. Blood CAPILLARY BLOOD / Unknown 02/18/2024 12:14 PM EST 02/18/2024 12:15 PM EST Emily Raymond MD POINT OF CARE TEST O RDERABLES Performing Organization Address [facility] Co de Phone Number [facility] [place] [address] * (ABNORMAL) Urinalysis Microscopic Reflex to Culture (02/18/2024 10:13 AM EST) RBC, Urine <1 0 - 4 /HPF 02/18/2024 11:32 AM [facility] WBC, Urine 1 0 - 5 /HPF 02/18/2024 11:32 AM [facility] Squamous Epithelial Cells, Urine 1 <5 /HPF 02/18/2024 11:32 AM [facility] Transitional Epithelial Cells, Urine <1 <2 /HPF 02/18/2024 11:32 AM [facility] Hyaline Casts, Urine 02/18/2024 11:32 AM [facility] Comment 02/18/2024 11:32 AM [facility] Comment:Interpret results wi th caution, microscopic results are from a suboptimal specimen. Bacteria, Urine Occasiona l(A) None /HPF 02/18/2024 11:32 AM [facility] CULTURE ADDED? 02/18/2024 11:32 AM [facility] Urine URINE SPECIMEN OBTAINED VIA [employer] / Unknown Non Blood Collection / Unknown 02/18/2024 10:13 AM EST 02/18/2024 10:37 AM EST Emily Raymond MD URINE ORDERABLES Performing Organization Address [facility]/ZIP Co de Phone Number [facility] [place] [place] [address] * Urinalysis Microscopic with Reflex to Culture (02/18/2024 10:13 AM EST) CULTURE ADDED? 02/18/2024 11:32 AM [facility] Urine URINE SPECIMEN OBTAINED VIA [employer] / Unknown Non Blood Collection / Unknown 02/18/2024 10:13 AM EST 02/18/2024 10:37 AM EST Emily Raymond MD URINE ORDERABLES [facility] [place] [address] * (ABNORMAL) Urinalysis with reflex Culture (02/18/2024 10:13 AM EST) Glucose, Urine Dipstick Negative Negative 02/18/2024 11:32 AM [facility] Protein, Urine Dipstick Negative Negative 02/18/2024 11:32 AM [facility] Bilirubin, Urine Dipstick Negative Negative 02/18/2024 11:32 AM [facility] Comment:Clinical correlation required for positive Urine Bilirubin results as false positive may occur with some drugs and drug related products. If a false positive is suspected a serum total bilirubin should be considered if clinically indicated. Urobilinogen, Urine Dipstick Normal Normal, 0.2 mg/dL, 1.0 mg/dL 02/18/2024 11:32 AM [facility] pH, Urine (dipstick) 6.0 5.0 - 8.0 02/18/2024 11:32 AM [facility] Blood, Urine Dipstick Trace(A) Negative 02/18/2024 11:32 AM [facility] Ketone, Urine Dipstick Negative Negative 02/18/2024 11:32 AM [facility] Nitrite, Urine Dipstick Negative Negative 02/18/2024 11:32 AM [facility] Leukocytes, Urine Dipstick Small(A) Negative 02/18/2024 11:32 AM [facility] Specific [place] Urine Automated <=1.005(L) 1.005 - 1.030 02/18/2024 11:32 AM EST [facility] Appearance, Urine Dipstick Clear Clear 02/18/2024 11:32 AM EST [facility] Color, Urine Dipstick Yellow Yellow, Dark Yellow 02/18/2024 11:32 AM EST [facility] CULTURE ADDED? 02/18/2024 11:32 AM EST [facility] Urine URINE SPECIMEN OBTAINED VIA INDWELLING URINARY CATHETER / Unknown Non Blood Collection / Unknown 02/18/2024 10:13 AM EST 02/18/2024 10:37 AM EST Emily Raymond MD URINE ORDERABLES Performing Organization Address City/[facility]/ZIP Co de Phone Number [facility] [place] [address] * Blood culture (02/18/2024 9:51 AM EST) Blood Culture No growth at 120 hours 02/23/2024 12:01 PM EST [facility] Blood VENOUS BLOOD SPECIMEN / Unknown Venipuncture / Unknown 02/18/2024 9:51 AM EST 02/18/2024 10:21 AM EST Emily Raymond MD MICROBIOLOGY - BLOOD ORDERABLES Performing Organization Address City/[facility]/ZIP Co de Phone Number [facility] [place] [address] * Blood culture (02/18/2024 9:51 AM EST) Blood Culture No growth at 120 hours 02/23/2024 12:01 PM EST [facility] Blood VENOUS BLOOD SPECIMEN / Unknown Venipuncture / Unknown 02/18/2024 9:51 AM EST 02/18/2024 10:20 AM EST Emily Raymond MD MICROBIOLOGY - BLOOD ORDERABLES Performing Organization Address City/[facility]/ZIP Co de Phone Number [facility] [place] [address] * (ABNORMAL) Blood Gas, Venous POC (02/18/2024 9:43 AM [facility]) pH, Venous 7.38 7.32 - 7.42 02/18/2024 9:44 AM [facility] PCO2, Venous 49 38 - 58 mmHg 02/18/2024 9:44 AM [facility] PO2, Venous 28 16 - 65 mmHg 02/18/2024 9:44 AM [facility] Bicarbonate, Venous 28.4 22 - 31 mmol/L 02/18/2024 9:44 AM [facility] Base Excess, Venous 3.3 1.9 - 4.5 mmol/L 02/18/2024 9:44 AM [facility] Hemoglobin, Venous 10.4(L) 11.7 - 15.5 g/dL 02/18/2024 9:44 AM [facility] Oxyhemoglobin, Venous 51.6 % 02/18/2024 9:44 AM [facility] Carboxyhemoglobin , Venous 1.0 % 02/18/2024 9:44 AM [facility] Comment: Nonsmokers: 0.5-1.5% COHB ?? Smokers: Variable ??but usually less than 10% ?? Toxic: 20-30% COHB ?? Lethal: Greater than 60% COHB Methemoglobin, Venous 0.3 <=1.5 % 02/18/2024 9:44 AM [facility] Sodium, Venous 136 135 - 145 mmol/L 02/18/2024 9:44 AM [facility] Potassium, Venous 3.7 3.5 - 5.0 mmol/L 02/18/2024 9:44 AM [facility] Chloride, Venous 104 98 - 107 mmol/L 02/18/2024 9:44 AM [facility] Glucose, Venous 116 65 - 199 mg/dL 02/18/2024 9:44 AM [facility] Comment:Glucose Concentratio n >=200 mg/dL plus symptoms is consistent with Diabetes Mellitus. Lactate, Venous 2.8(H) 0.5 - 2.2 mmol/L 02/18/2024 9:44 AM EST [facility] Ionized Calcium, Venous 1.12(L) 1.15 - 1.33 mmol/L 02/18/2024 9:44 AM EST [facility] Fraction of Inspired Oxygen, Venous 70 % 02/18/2024 9:44 AM EST [facility] Blood VENOUS BLOOD SPECIMEN / Unknown 02/18/2024 9:43 AM EST 02/18/2024 9:44 AM EST Emily Raymond MD POINT OF CARE TEST O RDERABLES Performing Organization Address [facility]/ZIP Co de Phone Number [facility] [place] [address] * MRSA PCR Screen (02/18/2024 9:24 AM EST) MRSA PCR Not Detected 02/18/2024 5:10 PM EST [facility] Swab BOTH ANTERIOR NARES / Unknown Non Blood Collection / Unknown 02/18/2024 9:24 AM EST 02/18/2024 9:34 AM EST Narrative [facility] - 02/18/2024 5:10 PM EST This test was performed using the Xpert MRSA NxG test kit and is run on the [employer]as[employer] GeneXpert Dx System. This test is cleared by the U.S. Food and Drug Administration for clinical use and its performance characteristics have been verified by the [facility] [employer] [facility] at [facility]. This test was performed using the Xpert MRSA NxG test kit and is run on the [employer] GeneXpert Dx System. This test is cleared by the U.S. Food and Drug Administration for clinical use and its performance characteristics have been verified by the [facility] [employer] [facility] [employer] [facility] at [facility]. Emily Raymond MD MOLECULAR ORDERABLES Performing Organization Address City/[facility]/ZIP Co de Phone Number [facility] [place] [address] * Respiratory Panel PCR (02/18/2024 9:24 AM EST) [facility] Respiratory Panel PCR Negative Negative 02/18/2024 10:50 AM [facility] Adenovirus Not Detected Not Detected 02/18/2024 10:50 AM [facility] Coronavirus HKU1 Not Detected Not Detected 02/18/2024 10:50 AM [facility] Coronavirus NL63 Not Detected Not Detected 02/18/2024 10:50 AM [facility] Coronavirus 229E Not Detected Not Detected 02/18/2024 10:50 AM [facility] Coronavirus OC43 Not Detected Not Detected 02/18/2024 10:50 AM [facility] SARS-CoV-2 Not Detected Not Detected 02/18/2024 10:50 AM [facility] Human Metapneumovirus Not Detected Not Detected 02/18/2024 10:50 AM [facility] Human Rhinovirus/Enterov irus Not Detected Not Detected 02/18/2024 10:50 AM [facility] Influenza A Not Detected Not Detected 02/18/2024 10:50 AM [facility] Influenza B Not Detected Not Detected 02/18/2024 10:50 AM [facility] Parainfluenza 1 Not Detected Not Detected 02/18/2024 10:50 AM [facility] Parainfluenza 2 Not Detected Not Detected 02/18/2024 10:50 AM [facility] Parainfluenza 3 Not Detected Not Detected 02/18/2024 10:50 AM [facility] Parainfluenza 4 Not Detected Not Detected 02/18/2024 10:50 AM [facility] Respiratory Syncytial Virus Not Detected Not Detected 02/18/2024 10:50 AM [facility] Chlamydophila pneumoniae Not Detected Not Detected 02/18/2024 10:50 AM [facility] Mycoplasma pneumoniae Not Detected Not Detected 02/18/2024 10:50 AM [facility] Swab SPECIMEN FROM NASOPHARYNGEAL STRUCTURE / Unknown Non Blood Collection / Unknown 02/18/2024 9:24 AM EST 02/18/2024 9:34 AM EST Narrative [facility] - 02/18/2024 10:50 AM EST Respiratory Panels are performed on the Electronic Brailler[employer] using multiplexed PCR nucleic acid detection. Negative results do not preclude respiratory infection and should not be used as the sole basis for diagnosis, treatment, or other management decisions. Emily Raymond MD MICROBIOLOGY - GENER AL ORDERABLES Performing Organization Address [facility]/ZIP Co de Phone Number [facility] [place] [address] * POC, GLUCOSE (02/18/2024 7:42 AM EST) Glucometer, POC 167 65 - 199 mg/dL 02/18/2024 7:42 AM EST [facility] Comment:Supplemental ranges: <140 mg/dL before meals <180 mg/dL all other times of the day. Blood CAPILLARY BLOOD / Unknown 02/18/2024 7:42 AM EST 02/18/2024 7:42 AM EST Emily Raymond MD POINT OF CARE TEST O RDERABLES Performing Organization Address [facility] Co de Phone Number [facility] [place] [address] * XR Chest One View (02/18/2024 4:48 AM EST) WORKSTATION ID [id number] RAD Anatomical Region Laterality Modality Chest N/A [...] who have questions please contact the health rental boats caretaker that requested your imaging first. ? Electronically signed by: Clark Johnson MD, [facility] ([phone]), at 02/18/2024 4:56 AM Narrative 02/18/2024 4:56 [...] patients who have questions please contactthe health rental boats caretaker that requested your imaging first. Emily Raymond MD IMG DX ORDERABLES * POC, GLUCOSE (02/18/2024 3:58 AM EST) [facility] Glucometer, POC 150 65 - 199 mg/dL 02/18/2024 3:58 AM EST [facility] Comment:Supplemental ranges: <140 mg/dL before meals <180 mg/dL all other times of the day. Blood CAPILLARY BLOOD / Unknown 02/18/2024 3:58 AM EST 02/18/2024 3:58 AM EST Emily Raymond MD POINT OF CARE TEST O RDERABLES Performing Organization Address City/[facility]/ZIP Co de Phone Number [facility] [place] [address] * EKG 12 Lead (02/18/2024 1:39 AM EST) Ventricular rate 119 BPM MUSE SYSTEM Atrial Rate 119 BPM MUSE SYSTEM P-R Interval 140 ms MUSE SYSTEM QRS Duration 132 ms MUSE SYSTEM Q-T Interval 340 ms MUSE SYSTEM QTC Calculated (Bezet) 478 ms MUSE SYSTEM Calculated P [place] 64 degrees MUSE SYSTEM Calculated R [place] 115 degrees MUSE SYSTEM Calculated T [place] 49 degrees MUSE SYSTEM INTERPRETATION Sinus tachycardia Right bundle branch block Abnormal ECG When compared with ECG of 17-FEB-2024 09:06, (unconfirmed) No significant change was found Confirmed by fellow Katy Del Castillo ([id number]) on 02/19/2024 4:11:59 PM Confirmed by MD Maldonado Jose ([id number]) on 02/21/2024 8:48:08 PM MUSE SYSTEM 02/18/2024 1:39 AM EST 02/21/2024 8:48 PM EST Emily Raymond MD ECG ORDERABLES Performing Organization Address City/[facility]/ZIP Co de Phone Number MUSE SYSTEM * (ABNORMAL) CBC (with Diff) (02/18/2024 12:32 AM EST) White Blood Cell 12.68(H) 4.00 - 9.50 x10(3)/mc L 02/18/2024 12:53 AM EST [facility] Red Blood Cell 3.31(L) 4.00 - 5.21 x10(6)/mc L 02/18/2024 12:53 AM EST [facility] Hemoglobin 10.2(L) 11.7 - 15.5 g/dL 02/18/2024 12:53 AM [facility] Hematocrit 31.3(L) 35.7 - 45.8 % 02/18/2024 12:53 AM [facility] Mean Cell Volume 94.6(H) 82.6 - 94.4 fL 02/18/2024 12:53 AM [facility] Mean Cell Hemoglobin 30.8 27.1 - 32.0 pg 02/18/2024 12:53 AM [facility] Mean Cell Hemoglobin Concentration 32.6 31.7 - 35.0 g/dL 02/18/2024 12:53 AM [facility] Platelet 197 145 - 357 x10(3)/mc L 02/18/2024 12:53 AM [facility] Mean Platelet Volume 9.0 7.6 - 12.9 fL 02/18/2024 12:53 AM [facility] RDW Standard Deviation 46.9(H) 37.0 - 46.0 fL 02/18/2024 12:53 AM [facility] RDW coefficient of variation 13.4 11.5 - 14.1 % 02/18/2024 12:53 AM [facility] NRBC% auto 0.0 % 02/18/2024 12:53 AM [facility] NRBC Absolute <0.01 <0.01 x10(3)/mc L 02/18/2024 12:53 AM [facility] Neutrophil % 86.4 % 02/18/2024 12:53 AM [facility] Neutrophil Absolute (ANC) - Automated 10.96(H) 1.70 - 6.10 x10(3)/mc L 02/18/2024 12:53 AM [facility] Lymph % 7.5 % 02/18/2024 12:53 AM [facility] Lymph Absolute 0.95 0.90 - 3.20 x10(3)/mc L 02/18/2024 12:53 AM [facility] Monocyte % 5.3 % 02/18/2024 12:53 AM [facility] Monocyte Absolute 0.67 0.30 - 0.90 x10(3)/mc L 02/18/2024 12:53 AM EST [facility] Eos % 0.1 % 02/18/2024 12:53 AM [facility] Eos Absolute <0.04 0.00 - 0.40 x10(3)/mc L 02/18/2024 12:53 AM [facility] Basophil % 0.1 % 02/18/2024 12:53 AM [facility] Baso Absolute <0.04 0.00 - 0.10 x10(3)/mc L 02/18/2024 12:53 AM [facility] Immature Gran % 0.6 % 12:53 AM [facility] Immature Gran Absolute 0.08(H) 0.00 - 0.04 x10(3)/mc L 02/18/2024 12:53 AM [facility] Blood VENOUS BLOOD SPECIMEN / Unknown Venipuncture / Unknown 02/18/2024 12:32 AM EST 02/18/2024 12:42 AM EST Emily Raymond MD HEMATOLOGY ORDERABLE S [facility] [place] [address] * (ABNORMAL) Basic Metabolic Panel (02/18/2024 12:32 AM EST) Glucose 140 65 - 199 mg/dL 02/18/2024 1:13 AM [facility] Comment:Glucose Concentratio n >=200 mg/dL plus symptoms is consistent with Diabetes Mellitus. Blood Urea Nitrogen 6(L) 8 - 18 mg/dL 02/18/2024 1:13 AM [facility] Creatinine 0.66(L) 0.70 - 1.20 mg/dL 02/18/2024 1:13 AM [facility] Sodium 139 135 - 145 mMol/L 02/18/2024 1:13 AM [facility] Potassium 4.0 3.5 - 5.0 mMol/L 02/18/2024 1:13 AM [facility] Chloride 106 98 - 107 mMol/L 02/18/2024 1:13 AM [facility] Carbon Dioxide 26 22 - 31 mMol/L 02/18/2024 1:13 AM [facility] Anion Gap 7 5 - 15 mMol/L 02/18/2024 1:13 AM [facility] Calcium 8.0(L) 8.5 - 10.5 mg/dL 02/18/2024 1:13 AM [facility] Est Glomerular Filtration Rate - Female 99 mL/min/1. 73 m?? 02/18/2024 1:13 AM [facility] Comment: This patient's estimated GFR was [...] AM EST Emily Raymond MD CHEMISTRY ORDERABLES [facility] [place] [address] * (ABNORMAL) Phosphorus (02/18/2024 12:32 AM EST) Phosphorus 2.3(L) 2.5 - 4.5 mg/dL 02/18/2024 1:13 AM [facility] Blood VENOUS BLOOD SPECIMEN / Unknown Venipuncture / Unknown 02/18/2024 12:32 AM EST 02/18/2024 12:42 AM EST Emily Raymond MD CHEMISTRY ORDERABLES Performing Organization Address [facility]/ZIP Co de Phone Number [facility] [place] [address] * Magnesium (02/18/2024 12:32 AM EST) Magnesium 0.78 0.69 - 1.07 mMol/L 02/18/2024 1:13 AM EST [facility] Blood VENOUS BLOOD SPECIMEN / Unknown Venipuncture / Unknown 02/18/2024 12:32 AM EST 02/18/2024 12:42 AM EST Emily Raymond MD CHEMISTRY ORDERABLES Performing Organization Address [facility] Co de Phone Number [facility] [place] [address] * POC, GLUCOSE (02/18/2024 12:31 AM EST) Glucometer, POC 148 65 - 199 mg/dL 02/18/2024 12:31 AM EST [facility] Comment:Supplemental ranges: <140 mg/dL before meals <180 mg/dL all other times of the day. Blood CAPILLARY BLOOD / Unknown 02/18/2024 12:31 AM EST 02/18/2024 12:31 AM EST Emily Raymond MD POINT OF CARE TEST O RDERABLES Performing Organization Address City/[facility] Co de Phone Number [facility] [place] [address] * CT Angiogram Chest for Pulmonary Embolus w Contrast (02/18/2024 12:07 AM EST) WORKSTATION ID [id number] RAD Anatomical Region Laterality Modality Chest Computed [...] who have questions please contact the health rental boats caretaker that requested your imaging first. ? Electronically signed by: Clark Johnson MD, [facility] ([phone]), at 02/18/2024 1:13 AM Narrative 02/18/2024 1:13 [...] patients who have questions please contactthe health rental boats caretaker that requested your imaging first. Emily Raymond MD IMG CT ORDERABLES * POC, GLUCOSE (02/17/2024 7:56 PM EST) [facility] Glucometer, POC 123 65 - 199 mg/dL 02/17/2024 7:56 PM EST [facility] Comment:Supplemental ranges: <140 mg/dL before meals <180 mg/dL all other times of the day. Blood CAPILLARY BLOOD / Unknown 02/17/2024 7:56 PM EST 02/17/2024 7:56 PM EST Emily Raymond MD POINT OF CARE TEST O RDERABLES [facility] [place] [address] * (ABNORMAL) CBC (with Diff) (02/17/2024 6:02 PM EST) [facility] White Blood Cell 10.65(H) 4.00 - 9.50 x10(3)/mc L 02/17/2024 6:29 PM EST [facility] Red Blood Cell 3.36(L) 4.00 - 5.21 x10(6)/mc L 02/17/2024 6:29 PM EST [facility] Hemoglobin 10.5(L) 11.7 - 15.5 g/dL 02/17/2024 6:29 PM EST [facility] Hematocrit 32.0(L) 35.7 - 45.8 % 02/17/2024 6:29 PM [facility] Mean Cell Volume 95.2(H) 82.6 - 94.4 fL 02/17/2024 6:29 PM [facility] Mean Cell Hemoglobin 31.3 27.1 - 32.0 pg 02/17/2024 6:29 PM [facility] Mean Cell Hemoglobin Concentration 32.8 31.7 - 35.0 g/dL 02/17/2024 6:29 PM [facility] Platelet 174 145 - 357 x10(3)/mc L 02/17/2024 6:29 PM [facility] Mean Platelet Volume 8.9 7.6 - 12.9 fL 02/17/2024 6:29 PM [facility] RDW Standard Deviation 47.9(H) 37.0 - 46.0 fL 02/17/2024 6:29 PM [facility] RDW coefficient of variation 13.6 11.5 - 14.1 % 02/17/2024 6:29 PM [facility] NRBC% auto 0.0 % 02/17/2024 6:29 PM [facility] NRBC Absolute <0.01 <0.01 x10(3)/mc L 02/17/2024 6:29 PM [facility] Neutrophil % 77.1 % 02/17/2024 6:29 PM [facility] Neutrophil Absolute (ANC) - Automated 8.21(H) 1.70 - 6.10 x10(3)/mc L 02/17/2024 6:29 PM [facility] Lymph % 16.7 % 02/17/2024 6:29 PM [facility] Lymph Absolute 1.78 0.90 - 3.20 x10(3)/mc L 02/17/2024 6:29 PM [facility] Monocyte % 5.5 % 02/17/2024 6:29 PM [facility] Monocyte Absolute 0.59 0.30 - 0.90 x10(3)/mc L 02/17/2024 6:29 PM EST [facility] Eos % 0.2 % 02/17/2024 6:29 PM EST [facility] Eos Absolute <0.04 0.00 - 0.40 x10(3)/mc L 02/17/2024 6:29 PM EST [facility] Basophil % 0.2 % 02/17/2024 6:29 PM EST [facility] Baso Absolute <0.04 0.00 - 0.10 x10(3)/mc L 02/17/2024 6:29 PM EST [facility] Immature Gran % 0.3 % 6:29 PM [facility] Immature Gran Absolute <0.04 0.00 - 0.04 x10(3)/mc L 02/17/2024 6:29 PM [facility] Blood VENOUS BLOOD SPECIMEN / Unknown Venipuncture / Unknown 02/17/2024 6:02 PM EST 02/17/2024 6:10 PM EST Emily Raymond MD HEMATOLOGY ORDERABLE S [facility] [place] [address] * (ABNORMAL) Basic Metabolic Panel (02/17/2024 6:02 PM EST) Glucose 113 65 - 199 mg/dL 02/17/2024 6:43 PM [facility] Comment:Glucose Concentratio n >=200 mg/dL plus symptoms is consistent with Diabetes Mellitus. Blood Urea Nitrogen 7(L) 8 - 18 mg/dL 02/17/2024 6:43 PM EST [facility] Creatinine 0.68(L) 0.70 - 1.20 mg/dL 02/17/2024 6:43 PM EST [facility] Sodium 139 135 - 145 mMol/L 02/17/2024 6:43 PM EST [facility] Potassium 4.1 3.5 - 5.0 mMol/L 02/17/2024 6:43 PM EST [facility] Chloride 107 98 - 107 mMol/L 02/17/2024 6:43 PM [facility] Carbon Dioxide 25 22 - 31 mMol/L 02/17/2024 6:43 PM [facility] Anion Gap 7 5 - 15 mMol/L 02/17/2024 6:43 PM [facility] Calcium 8.1(L) 8.5 - 10.5 mg/dL 02/17/2024 6:43 PM EST [facility] Est Glomerular Filtration Rate - Female 98 mL/min/1. 73 m?? 02/17/2024 6:43 PM EST [facility] Comment: This patient's estimated GFR [...] PM EST Emily Raymond MD CHEMISTRY ORDERABLES [facility] [place] [address] * POC, GLUCOSE (02/17/2024 4:14 PM EST) [facility] Signature Glucometer, POC 121 65 - 199 mg/dL 02/17/2024 4:14 PM EST [facility] Comment:Supplemental ranges: <140 mg/dL before meals <180 mg/dL all other times of the day. Blood CAPILLARY BLOOD / Unknown 02/17/2024 4:14 PM EST 02/17/2024 4:14 PM EST Emily Raymond MD POINT OF CARE TEST O RDERABLES Performing Organization Address City/[facility]/ZIP Co de Phone Number [facility] [place] [address] * (ABNORMAL) Fibrinogen (02/17/2024 4:10 PM EST) Fibrinogen 410(H) 200 - 393 mg/dL 02/17/2024 4:40 PM EST [facility] Comment: A fibrinogen level >100 mg/dL is adequate for hemostasis in most patients without underlying bleeding disorders. Blood VENOUS BLOOD SPECIMEN / Unknown Venipuncture / Unknown 02/17/2024 4:10 PM EST 02/17/2024 4:16 PM EST Emily Raymond MD HEMATOLOGY ORDERABLE S Performing Organization Address [facility] Co de Phone Number [facility] [place] [address] * APTT (02/17/2024 4:10 PM EST) Partial Thromboplastin Time 26 25 - 37 sec 02/17/2024 4:40 PM EST [facility] Comment: The PTT is NOT appropriate for heparin monitoring. Use the Anti-Xa level for heparin monitoring (HEP UFH) or LMWH monitoring (HEP LMW). A PTT less than 37 seconds generally indicates adequate hemostasis. Blood VENOUS BLOOD SPECIMEN / Unknown Venipuncture / Unknown 02/17/2024 4:10 PM EST 02/17/2024 4:16 PM EST Emily Raymond MD HEMATOLOGY ORDERABLE S Performing Organization Address City/[facility]/ZIP Co de Phone Number [facility] [place] [address] * (ABNORMAL) Prothrombin Time (02/17/2024 4:10 PM EST) Prothrombin Time 12.6(H) 9.4 - 12.5 sec 02/17/2024 4:40 PM [facility] International Normalization Ratio 1.1 <=4.9 02/17/2024 4:40 PM [facility] Comment: An INR < 2.0 indicates [...] EST Emily Raymond MD HEMATOLOGY ORDERABLE S [facility] [place] [address] * (ABNORMAL) Basic Metabolic Panel (02/17/2024 4:10 PM EST) Glucose 120 65 - 199 mg/dL 02/17/2024 4:52 PM [facility] Comment:Glucose Concentratio n >=200 mg/dL plus symptoms is consistent with Diabetes Mellitus. Blood Urea Nitrogen 6(L) 8 - 18 mg/dL 02/17/2024 4:52 PM [facility] Creatinine 0.71 0.70 - 1.20 mg/dL 02/17/2024 4:52 PM [facility] Sodium 139 135 - 145 mMol/L 02/17/2024 4:52 PM [facility] Potassium 4.3 3.5 - 5.0 mMol/L 02/17/2024 4:52 PM [facility] Chloride 105 98 - 107 mMol/L 02/17/2024 4:52 PM [facility] Carbon Dioxide 24 22 - 31 mMol/L 02/17/2024 4:52 PM [facility] Anion Gap 10 5 - 15 mMol/L 02/17/2024 4:52 PM EST [facility] Calcium 8.5 8.5 - 10.5 mg/dL 02/17/2024 4:52 PM EST [facility] Est Glomerular Filtration Rate - Female 96 mL/min/1. 73 m?? 02/17/2024 4:52 PM EST [facility] Comment: This patient's estimated GFR [...] PM EST Emily Raymond MD CHEMISTRY ORDERABLES [facility] [place] [address] * (ABNORMAL) CBC (with Diff) (02/17/2024 4:10 PM EST) White Blood Cell 10.67(H) 4.00 - 9.50 x10(3)/mc L 02/17/2024 4:35 PM EST [facility] Red Blood Cell 3.42(L) 4.00 - 5.21 x10(6)/mc L 02/17/2024 4:35 PM EST [facility] Hemoglobin 10.7(L) 11.7 - 15.5 g/dL 02/17/2024 4:35 PM [facility] Hematocrit 32.7(L) 35.7 - 45.8 % 02/17/2024 4:35 PM EST [facility] Mean Cell Volume 95.6(H) 82.6 - 94.4 fL 02/17/2024 4:35 PM [facility] Mean Cell Hemoglobin 31.3 27.1 - 32.0 pg 02/17/2024 4:35 PM [facility] Mean Cell Hemoglobin Concentration 32.7 31.7 - 35.0 g/dL 02/17/2024 4:35 PM [facility] Platelet 192 145 - 357 x10(3)/mc L 02/17/2024 4:35 PM [facility] Mean Platelet Volume 9.1 7.6 - 12.9 fL 02/17/2024 4:35 PM [facility] RDW Standard Deviation 48.2(H) 37.0 - 46.0 fL 02/17/2024 4:35 PM [facility] RDW coefficient of variation 13.6 11.5 - 14.1 % 02/17/2024 4:35 PM [facility] NRBC% auto 0.0 % 02/17/2024 4:35 PM [facility] NRBC Absolute <0.01 <0.01 x10(3)/mc L 02/17/2024 4:35 PM [facility] Neutrophil % 77.7 % 02/17/2024 4:35 PM [facility] Neutrophil Absolute (ANC) - Automated 8.29(H) 1.70 - 6.10 x10(3)/mc L 02/17/2024 4:35 PM [facility] Lymph % 14.3 % 02/17/2024 4:35 PM [facility] Lymph Absolute 1.53 0.90 - 3.20 x10(3)/mc L 02/17/2024 4:35 PM [facility] Monocyte % 7.1 % 02/17/2024 4:35 PM [facility] Monocyte Absolute 0.76 0.30 - 0.90 x10(3)/mc L 02/17/2024 4:35 PM [facility] Eos % 0.2 % 02/17/2024 4:35 PM EST [facility] Eos Absolute <0.04 0.00 - 0.40 x10(3)/mc L 02/17/2024 4:35 PM EST [facility] Basophil % 0.2 % 02/17/2024 4:35 PM [facility] Baso Absolute <0.04 0.00 - 0.10 x10(3)/mc L 02/17/2024 4:35 PM EST [facility] Immature Gran % 0.5 % 4:35 PM [facility] Immature Gran Absolute 0.05(H) 0.00 - 0.04 x10(3)/mc L 02/17/2024 4:35 PM [facility] Blood VENOUS BLOOD SPECIMEN / Unknown Venipuncture / Unknown 02/17/2024 4:10 PM EST 02/17/2024 4:16 PM EST Emily Raymond MD HEMATOLOGY ORDERABLE S [facility] [place] [address] * (ABNORMAL) Blood Gas, Arterial POC (02/17/2024 3:45 PM EST) pH, Arterial 7.44 7.35 - 7.45 02/17/2024 3:46 PM EST [facility] PCO2, Arterial 36 35 - 45 mmHg 02/17/2024 3:46 PM [facility] PO2, Arterial 56(L) 85 - 104 mmHg 02/17/2024 3:46 PM [facility] Bicarbonate, Arterial 23.6 20.0 - 26.0 mmol/L 02/17/2024 3:46 PM [facility] Base Excess, Arterial -0.6 -3.0 - 3.0 mmol/L 02/17/2024 3:46 PM [facility] Hemoglobin, Arterial 11.4(L) 11.7 - 15.5 g/dL 02/17/2024 3:46 PM [facility] Oxyhemoglobin, Arterial 89.3(L) 94.0 - 97.0 % 02/17/2024 3:46 PM [facility] Carboxyhemoglobin , Arterial 1.2 % 02/17/2024 3:46 PM [facility] Comment: Nonsmokers: 0.5-1.5% COHB ?? Smokers: Variable ??but usually less than 10% ?? Toxic: 20-30% COHB ?? Lethal: Greater than 60% COHB Methemoglobin, Arterial 0.3 <=1.5 % 02/17/2024 3:46 PM [facility] Sodium, Arterial 133(L) 135 - 145 mmol/L 02/17/2024 3:46 PM [facility] Potassium, Arterial 4.0 3.5 - 5.0 mmol/L 02/17/2024 3:46 PM [facility] Chloride, Arterial 106 98 - 107 mmol/L 02/17/2024 3:46 PM [facility] Lactate, Arterial 1.6 0.5 - 2.2 mmol/L 02/17/2024 3:46 PM [facility] Fraction of Inspired Oxygen 60 % 02/17/2024 3:46 PM [facility] Flow Rate 40.0 L/min 02/17/2024 3:46 PM [facility] PF Ratio 93 Ratio 02/17/2024 3:46 PM [facility] Comment:PF ratio calculated using the non-temperature corrected pO2 result. IONIZED CALCIUM, ARTERIAL 1.13(L) 1.15 - 1.33 mmol/L 02/17/2024 3:46 PM [facility] Glucose, Arterial 115 65 - 199 mg/dL 02/17/2024 3:46 PM [facility] Comment:Glucose Concentratio n >=200 mg/dL plus symptoms is consistent with Diabetes Mellitus. Blood ARTERIAL BLOOD / Unknown 02/17/2024 3:45 PM EST 02/17/2024 3:46 PM EST Emily Raymond MD POINT OF CARE TEST O RDERABLES [facility] One [facility] [place] [address] * XR Chest One View (02/17/2024 3:33 PM EST) WORKSTATION ID [id number] RAD Anatomical Region Laterality Modality Chest N/A [...] who have questions please contact the health rental boats caretaker that requested your imaging first. ? Narrative 02/18/2024 12:18 AM EST EXAMINATION: XR [...] patients who have questions please contactthe health rental boats caretaker that requested your imaging first. Emily Raymond MD IMG DX ORDERABLES * POC, GLUCOSE (02/17/2024 12:11 PM EST) [facility] Glucometer, POC 132 65 - 199 mg/dL 02/17/2024 12:11 PM EST [facility] Comment:Supplemental ranges: <140 mg/dL before meals <180 mg/dL all other times of the day. Blood CAPILLARY BLOOD / Unknown 02/17/2024 12:11 PM EST 02/17/2024 12:11 PM EST Emily Raymond MD POINT OF CARE TEST O RDERABLES Performing Organization Address [facility]/ZIP Co de Phone Number [facility] [place] [place] [address] * EKG 12 Lead (02/17/2024 9:06 AM EST) Ventricular rate 95 BPM MUSE SYSTEM Atrial Rate 95 BPM MUSE SYSTEM P-R Interval 136 ms MUSE SYSTEM QRS Duration 150 ms MUSE SYSTEM Q-T Interval 396 ms MUSE SYSTEM QTC Calculated (Bezet) 497 ms MUSE SYSTEM Calculated P [place] 40 degrees MUSE SYSTEM Calculated R [place] 180 degrees MUSE SYSTEM Calculated T [place] 24 degrees MUSE SYSTEM INTERPRETATION Normal sinus rhythm with sinus arrhythmia Right bundle branch block Abnormal ECG When compared with ECG of 04-FEB-2024 18:00, atrial tachycardia no longer present Confirmed by fellow Katy Del Castillo ([id number]) on 02/19/2024 2:45:23 PM Confirmed by MD Bhavin, Shane ([id number]) on 02/19/2024 3:25:41 PM MUSE SYSTEM 02/17/2024 9:06 AM EST 02/19/2024 3:25 PM EST Emily Raymond MD ECG ORDERABLES Performing Organization Address [facility] Co de Phone Number MUSE SYSTEM * XR Chest One View (02/17/2024 8:01 AM EST) WORKSTATION ID [id number] RAD Anatomical Region Laterality Modality Chest N/A [...] who have questions please contact the health rental boats caretaker that requested your imaging first. ? Electronically signed by: Clark Tolentino MD, [facility] ??([phone]), at 02/17/2024 9:35 AM Narrative 02/17/2024 9:35 AM EST EXAMINATION: XR [...] patients who have questions please contactthe health rental boats caretaker that requested your imaging first. Electronically signed by: Clark Tolentino MD, [facility]([phone]), at 02/17/2024 9:35 AM Emily Raymond MD IMG DX ORDERABLES * POC, GLUCOSE (02/17/2024 7:34 AM EST) [facility] Glucometer, POC 117 65 - 199 mg/dL 02/17/2024 7:34 AM EST [facility] Comment:Supplemental ranges: <140 mg/dL before meals <180 mg/dL all other times of the day. Blood CAPILLARY BLOOD / Unknown 02/17/2024 7:34 AM EST 02/17/2024 7:34 AM EST Emily Raymond MD POINT OF CARE TEST O RDERABLES Performing Organization Address City/[facility]/ZIP Co de Phone Number [facility] [place] [address] * Prothrombin Time (02/17/2024 6:05 AM EST) [facility] Prothrombin Time 12.2 9.4 - 12.5 sec 02/17/2024 6:30 AM EST [facility] International Normalization Ratio 1.1 <=4.9 02/17/2024 6:30 AM EST [facility] Comment: An INR < 2.0 [...] MD HEMATOLOGY ORDERABLE S Performing Organization Address City/[facility]/ZIP Co de Phone Number [facility] [place] [place] [address] * Fibrinogen (02/17/2024 6:05 AM EST) [facility] Fibrinogen 263 200 - 393 mg/dL 02/17/2024 6:30 AM EST [facility] Comment: A fibrinogen level >100 mg/dL is adequate for hemostasis in most patients without underlying bleeding disorders. Blood VENOUS BLOOD SPECIMEN / Unknown Venipuncture / Unknown 02/17/2024 6:05 AM EST 02/17/2024 6:15 AM EST Emily Raymond MD HEMATOLOGY ORDERABLE S [facility] [place] [address] * (ABNORMAL) CBC (with Diff) (02/17/2024 6:05 AM EST) White Blood Cell 10.78(H) 4.00 - 9.50 x10(3)/mc L 02/17/2024 6:22 AM EST [facility] Red Blood Cell 3.37(L) 4.00 - 5.21 x10(6)/mc L 02/17/2024 6:22 AM [facility] Hemoglobin 10.7(L) 11.7 - 15.5 g/dL 02/17/2024 6:22 AM [facility] Hematocrit 31.8(L) 35.7 - 45.8 % 02/17/2024 6:22 AM [facility] Mean Cell Volume 94.4 82.6 - 94.4 fL 02/17/2024 6:22 AM [facility] Mean Cell Hemoglobin 31.8 27.1 - 32.0 pg 02/17/2024 6:22 AM [facility] Mean Cell Hemoglobin Concentration 33.6 31.7 - 35.0 g/dL 02/17/2024 6:22 AM [facility] Platelet 189 145 - 357 x10(3)/mc L 02/17/2024 6:22 AM [facility] Mean Platelet Volume 8.6 7.6 - 12.9 fL 02/17/2024 6:22 AM [facility] RDW Standard Deviation 47.7(H) 37.0 - 46.0 fL 02/17/2024 6:22 AM [facility] RDW coefficient of variation 13.6 11.5 - 14.1 % 02/17/2024 6:22 AM [facility] NRBC% auto 0.0 % 02/17/2024 6:22 AM [facility] NRBC Absolute <0.01 <0.01 x10(3)/mc L 02/17/2024 6:22 AM [facility] Neutrophil % 75.2 % 02/17/2024 6:22 AM [facility] Neutrophil Absolute (ANC) - Automated 8.12(H) 1.70 - 6.10 x10(3)/mc L 02/17/2024 6:22 AM [facility] Lymph % 17.1 % 02/17/2024 6:22 AM [facility] Lymph Absolute 1.84 0.90 - 3.20 x10(3)/mc L 02/17/2024 6:22 AM [facility] Monocyte % 6.9 % 02/17/2024 6:22 AM [facility] Monocyte Absolute 0.74 0.30 - 0.90 x10(3)/mc L 02/17/2024 6:22 AM [facility] Eos % 0.1 % 02/17/2024 6:22 AM [facility] Eos Absolute <0.04 0.00 - 0.40 x10(3)/mc L 02/17/2024 6:22 AM [facility] Basophil % 0.2 % 02/17/2024 6:22 AM [facility] Baso Absolute <0.04 0.00 - 0.10 x10(3)/mc L 02/17/2024 6:22 AM [facility] Immature Gran % 0.5 % 6:22 AM [facility] Immature Gran Absolute 0.05(H) 0.00 - 0.04 x10(3)/mc L 02/17/2024 6:22 AM [facility] Blood VENOUS BLOOD SPECIMEN / Unknown Venipuncture / Unknown 02/17/2024 6:05 AM EST 02/17/2024 6:22 AM EST Emily Raymond MD HEMATOLOGY ORDERABLE S [facility] [place] [address] * (ABNORMAL) Basic Metabolic Panel (02/17/2024 6:05 AM EST) Glucose 103 65 - 199 mg/dL 02/17/2024 6:51 AM EST [facility] Comment:Glucose Concentratio n >=200 mg/dL plus symptoms is consistent with Diabetes Mellitus. Blood Urea Nitrogen 6(L) 8 - 18 mg/dL 02/17/2024 6:51 AM [facility] Creatinine 0.64(L) 0.70 - 1.20 mg/dL 02/17/2024 6:51 AM [facility] Sodium 138 135 - 145 mMol/L 02/17/2024 6:51 AM [facility] Potassium 4.5 3.5 - 5.0 mMol/L 02/17/2024 6:51 AM [facility] Chloride 108(H) 98 - 107 mMol/L 02/17/2024 6:51 AM [facility] Carbon Dioxide 22 22 - 31 mMol/L 02/17/2024 6:51 AM [facility] Anion Gap 8 5 - 15 mMol/L 02/17/2024 6:51 AM [facility] Calcium 8.4(L) 8.5 - 10.5 mg/dL 02/17/2024 6:51 AM [facility] Est Glomerular Filtration Rate - Female 99 mL/min/1. 73 m?? 02/17/2024 6:51 AM [facility] Comment: This patient's estimated GFR was [...] Raymond MD CHEMISTRY ORDERABLES Performing Organization Address [facility] Phone Number [facility] [place] [place] [address] * APTT (02/17/2024 6:05 AM EST) Partial Thromboplastin Time 27 25 - 37 sec 02/17/2024 6:30 AM EST [facility] Comment: The PTT is NOT appropriate for heparin monitoring. Use the Anti-Xa level for heparin monitoring (HEP UFH) or LMWH monitoring (HEP LMW). A PTT less than 37 seconds generally indicates adequate hemostasis. Blood VENOUS BLOOD SPECIMEN / Unknown Venipuncture / Unknown 02/17/2024 6:05 AM EST 02/17/2024 6:15 AM EST Emily Raymond MD HEMATOLOGY ORDERABLE S Performing Organization Address [facility] [place] Phone Number [facility] [place] [address] * POC, GLUCOSE (02/17/2024 3:59 AM EST) Glucometer, POC 110 65 - 199 mg/dL 02/17/2024 3:59 AM EST [facility] Comment:Supplemental ranges: <140 mg/dL before meals <180 mg/dL all other times of the day. Blood CAPILLARY BLOOD / Unknown 02/17/2024 3:59 AM EST 02/17/2024 3:59 AM EST Emily Raymond MD POINT OF CARE TEST O RDERABLES Performing Organization Address City/[facility] Co de Phone Number [facility] [place] [address] * POC, GLUCOSE (02/17/2024 12:14 AM EST) Glucometer, POC 113 65 - 199 mg/dL 02/17/2024 12:14 AM EST [facility] Comment:Supplemental ranges: <140 mg/dL before meals <180 mg/dL all other times of the day. Blood CAPILLARY BLOOD / Unknown 02/17/2024 12:14 AM EST 02/17/2024 12:14 AM EST Emily Raymond MD POINT OF CARE TEST O DOUG Performing Organization Address [facility] Co de Phone Number [facility] [place] [address] * Phosphorus (02/17/2024 12:14 AM EST) Phosphorus 4.4 2.5 - 4.5 mg/dL 02/17/2024 12:54 AM EST [facility] Blood VENOUS BLOOD SPECIMEN / Unknown Venipuncture / Unknown 02/17/2024 12:14 AM EST 02/17/2024 12:23 AM EST Emily Raymond MD CHEMISTRY ORDERABLES Performing Organization Address [facility] Co de Phone Number [facility] [place] [address] * Magnesium (02/17/2024 12:14 AM EST) Magnesium 0.81 0.69 - 1.07 mMol/L 02/17/2024 12:54 AM EST [facility] Blood VENOUS BLOOD SPECIMEN / Unknown Venipuncture / Unknown 02/17/2024 12:14 AM EST 02/17/2024 12:23 AM EST Emily Raymond MD CHEMISTRY ORDERABLES [facility] [place] [place] [address] * Prothrombin Time (02/17/2024 12:14 AM EST) Prothrombin Time 11.4 9.4 - 12.5 sec 02/17/2024 12:52 AM EST [facility] International Normalization Ratio 1.0 <=4.9 02/17/2024 12:52 AM EST [facility] Comment: An INR < 2.0 [...] MD HEMATOLOGY ORDERABLE S Performing Organization Address City/[facility] Co de Phone Number [facility] [place] [address] * Fibrinogen (02/17/2024 12:14 AM EST) Pathologist [facility] Fibrinogen 230 200 - 393 mg/dL 02/17/2024 12:52 AM EST [facility] Comment: A fibrinogen level >100 mg/dL is adequate for hemostasis in most patients without underlying bleeding disorders. Blood VENOUS BLOOD SPECIMEN / Unknown Venipuncture / Unknown 02/17/2024 12:14 AM EST 02/17/2024 12:22 AM EST Emily Raymond MD HEMATOLOGY ORDERABLE S [facility] [place] [address] * (ABNORMAL) CBC (with Diff) (02/17/2024 12:14 AM EST) White Blood Cell 10.74(H) 4.00 - 9.50 x10(3)/mc L 02/17/2024 12:29 AM [facility] Red Blood Cell 3.44(L) 4.00 - 5.21 x10(6)/mc L 02/17/2024 12:29 AM [facility] Hemoglobin 10.8(L) 11.7 - 15.5 g/dL 02/17/2024 12:29 AM [facility] Hematocrit 32.6(L) 35.7 - 45.8 % 02/17/2024 12:29 AM [facility] Mean Cell Volume 94.8(H) 82.6 - 94.4 fL 02/17/2024 12:29 AM [facility] Mean Cell Hemoglobin 31.4 27.1 - 32.0 pg 02/17/2024 12:29 AM [facility] Mean Cell Hemoglobin Concentration 33.1 31.7 - 35.0 g/dL 02/17/2024 12:29 AM [facility] Platelet 188 145 - 357 x10(3)/mc L 02/17/2024 12:29 AM [facility] Mean Platelet Volume 8.8 7.6 - 12.9 fL 02/17/2024 12:29 AM [facility] RDW Standard Deviation 47.5(H) 37.0 - 46.0 fL 02/17/2024 12:29 AM [facility] RDW coefficient of variation 13.7 11.5 - 14.1 % 02/17/2024 12:29 AM [facility] NRBC% auto 0.0 % 02/17/2024 12:29 AM [facility] NRBC Absolute <0.01 <0.01 x10(3)/mc L 02/17/2024 12:29 AM [facility] Neutrophil % 82.5 % 02/17/2024 12:29 AM [facility] Neutrophil Absolute (ANC) - Automated 8.86(H) 1.70 - 6.10 x10(3)/mc L 02/17/2024 12:29 AM [facility] Lymph % 10.7 % 02/17/2024 12:29 AM [facility] Lymph Absolute 1.15 0.90 - 3.20 x10(3)/mc L 02/17/2024 12:29 AM [facility] Monocyte % 6.3 % 02/17/2024 12:29 AM [facility] Monocyte Absolute 0.68 0.30 - 0.90 x10(3)/mc L 02/17/2024 12:29 AM [facility] Eos % 0.0 % 02/17/2024 12:29 AM [facility] Eos Absolute <0.04 0.00 - 0.40 x10(3)/mc L 02/17/2024 12:29 AM [facility] Basophil % 0.2 % 02/17/2024 12:29 AM [facility] Baso Absolute <0.04 0.00 - 0.10 x10(3)/mc L 02/17/2024 12:29 AM [facility] Immature Gran % 0.3 % 12:29 AM [facility] Immature Gran Absolute <0.04 0.00 - 0.04 x10(3)/mc L 02/17/2024 12:29 AM [facility] Blood VENOUS BLOOD SPECIMEN / Unknown Venipuncture / Unknown 02/17/2024 12:14 AM EST 02/17/2024 12:22 AM EST Emily Raymond MD HEMATOLOGY ORDERABLE S [facility] [place] [address] * (ABNORMAL) Basic Metabolic Panel (02/17/2024 12:14 AM EST) Glucose 112 65 - 199 mg/dL 02/17/2024 12:54 AM [facility] Comment:Glucose Concentratio n >=200 mg/dL plus symptoms is consistent with Diabetes Mellitus. Blood Urea Nitrogen 6(L) 8 - 18 mg/dL 02/17/2024 12:54 AM [facility] Creatinine 0.60(L) 0.70 - 1.20 mg/dL 02/17/2024 12:54 AM [facility] Sodium 138 135 - 145 mMol/L 02/17/2024 12:54 AM [facility] Potassium 4.8 3.5 - 5.0 mMol/L 02/17/2024 12:54 AM [facility] Chloride 109(H) 98 - 107 mMol/L 02/17/2024 12:54 AM [facility] Carbon Dioxide 22 22 - 31 mMol/L 02/17/2024 12:54 AM [facility] Anion Gap 7 5 - 15 mMol/L 02/17/2024 12:54 AM [facility] Calcium 8.6 8.5 - 10.5 mg/dL 02/17/2024 12:54 AM [facility] Est Glomerular Filtration Rate - Female 101 mL/min/1. 73 m?? 02/17/2024 12:54 AM [facility] Comment: This patient's estimated GFR was [...] Raymond MD CHEMISTRY ORDERABLES Performing Organization Address City/State/[facility] Co de Phone Number [facility] [place] [address] * APTT (02/17/2024 12:14 AM EST) Pathologist [facility] Partial Thromboplastin Time 26 25 - 37 sec 02/17/2024 12:52 AM EST [facility] Comment: The PTT is NOT appropriate for heparin monitoring. Use the Anti-Xa level for heparin monitoring (HEP UFH) or LMWH monitoring (HEP LMW). A PTT less than 37 seconds generally indicates adequate hemostasis. Blood VENOUS BLOOD SPECIMEN / Unknown Venipuncture / Unknown 02/17/2024 12:14 AM EST 02/17/2024 12:22 AM EST Emily Raymond MD HEMATOLOGY ORDERABLE S Performing Organization Address [facility] Co de Phone Number [facility] [place] [address] * POC, GLUCOSE (02/16/2024 8:39 PM EST) [facility] Glucometer, POC 132 65 - 199 mg/dL 02/16/2024 8:39 PM EST [facility] Comment:Supplemental ranges: <140 mg/dL before meals <180 mg/dL all other times of the day. Blood CAPILLARY BLOOD / Unknown 02/16/2024 8:39 PM EST 02/16/2024 8:39 PM EST Emily Raymond MD POINT OF CARE TEST O RDERABLES Performing Organization Address [facility] Co de Phone Number [facility] [place] [address] * Prothrombin Time (02/16/2024 6:02 PM EST) [facility] Prothrombin Time 11.7 9.4 - 12.5 sec 02/16/2024 6:47 PM EST [facility] International Normalization Ratio 1.0 <=4.9 02/16/2024 6:47 PM EST [facility] Comment: An INR < 2.0 [...] MD HEMATOLOGY ORDERABLE S Performing Organization Address City/[facility]/ZIP Co de Phone Number [facility] [place] [place] [address] * Phosphorus (02/16/2024 6:02 PM EST) Phosphorus 4.5 2.5 - 4.5 mg/dL 02/16/2024 6:43 PM EST [facility] Blood VENOUS BLOOD SPECIMEN / Unknown Venipuncture / Unknown 02/16/2024 6:02 PM EST 02/16/2024 6:09 PM EST Emily Raymond MD CHEMISTRY ORDERABLES Performing Organization Address [facility]/ZIP Co de Phone Number [facility] [place] [address] * Magnesium (02/16/2024 6:02 PM EST) Magnesium 0.90 0.69 - 1.07 mMol/L 02/16/2024 6:43 PM EST [facility] Blood VENOUS BLOOD SPECIMEN / Unknown Venipuncture / Unknown 02/16/2024 6:02 PM EST 02/16/2024 6:09 PM EST Emily Raymond MD CHEMISTRY ORDERABLES Performing Organization Address City/[facility] Co de Phone Number [facility] [place] [address] * Fibrinogen (02/16/2024 6:02 PM EST) Fibrinogen 222 200 - 393 mg/dL 02/16/2024 6:47 PM EST [facility] Comment: A fibrinogen level >100 mg/dL is adequate for hemostasis in most patients without underlying bleeding disorders. Blood VENOUS BLOOD SPECIMEN / Unknown Venipuncture / Unknown 02/16/2024 6:02 PM EST 02/16/2024 6:09 PM EST Emily Raymond MD HEMATOLOGY ORDERABLE S [facility] [place] [place] [address] * (ABNORMAL) CBC (with Diff) (02/16/2024 6:02 PM EST) Pathologist [facility] White Blood Cell 13.48(H) 4.00 - 9.50 x10(3)/mc L 02/16/2024 6:20 PM [facility] Red Blood Cell 3.64(L) 4.00 - 5.21 x10(6)/mc L 02/16/2024 6:20 PM [facility] Hemoglobin 11.4(L) 11.7 - 15.5 g/dL 02/16/2024 6:20 PM [facility] Hematocrit 34.7(L) 35.7 - 45.8 % 02/16/2024 6:20 PM [facility] Mean Cell Volume 95.3(H) 82.6 - 94.4 fL 02/16/2024 6:20 PM [facility] Mean Cell Hemoglobin 31.3 27.1 - 32.0 pg 02/16/2024 6:20 PM [facility] Mean Cell Hemoglobin Concentration 32.9 31.7 - 35.0 g/dL 02/16/2024 6:20 PM [facility] Platelet 185 145 - 357 x10(3)/mc L 02/16/2024 6:20 PM [facility] Mean Platelet Volume 8.6 7.6 - 12.9 fL 02/16/2024 6:20 PM [facility] RDW Standard Deviation 47.9(H) 37.0 - 46.0 fL 02/16/2024 6:20 PM [facility] RDW coefficient of variation 13.6 11.5 - 14.1 % 02/16/2024 6:20 PM [facility] NRBC% auto 0.0 % 02/16/2024 6:20 PM [facility] NRBC Absolute <0.01 <0.01 x10(3)/mc L 02/16/2024 6:20 PM [facility] Neutrophil % 86.1 % 02/16/2024 6:20 PM [facility] Neutrophil Absolute (ANC) - Automated 11.61(H) 1.70 - 6.10 x10(3)/mc L 02/16/2024 6:20 PM [facility] Lymph % 8.5 % 02/16/2024 6:20 PM [facility] Lymph Absolute 1.14 0.90 - 3.20 x10(3)/mc L 02/16/2024 6:20 PM [facility] Monocyte % 4.5 % 02/16/2024 6:20 PM [facility] Monocyte Absolute 0.61 0.30 - 0.90 x10(3)/mc L 02/16/2024 6:20 PM [facility] Eos % 0.0 % 02/16/2024 6:20 PM [facility] Eos Absolute <0.04 0.00 - 0.40 x10(3)/mc L 02/16/2024 6:20 PM [facility] Basophil % 0.2 % 02/16/2024 6:20 PM [facility] Baso Absolute <0.04 0.00 - 0.10 x10(3)/mc L 02/16/2024 6:20 PM [facility] Immature Gran % 0.7 % 6:20 PM [facility] Immature Gran Absolute 0.09(H) 0.00 - 0.04 x10(3)/mc L 02/16/2024 6:20 PM [facility] Blood VENOUS BLOOD SPECIMEN / Unknown Venipuncture / Unknown 02/16/2024 6:02 PM EST 02/16/2024 6:09 PM EST Emily Raymond MD HEMATOLOGY ORDERABLE S [facility] [place] [place] [address] * (ABNORMAL) Basic Metabolic Panel (02/16/2024 6:02 PM EST) Glucose 174(H) 65 - 99 mg/dL 02/16/2024 6:43 PM [facility] Comment: Fasting Glucose Interpretive Criteria: Normal: 65-99 mg/dL ?? Prediabetes: 100-125 mg/dL ?? Consistent with Diabetes Mellitus: > or = 126 mg/dL ?? Classification and Diagnosis of Diabetes: Standards of Care in Diabetes - 2022. Diabetes Care 202; 46:S19. Fasting is defined as no caloric intake for at least 8 hours. Blood Urea Nitrogen 7(L) 8 - 18 mg/dL 02/16/2024 6:43 PM [facility] Creatinine 0.65(L) 0.70 - 1.20 mg/dL 02/16/2024 6:43 PM [facility] Sodium 138 135 - 145 mMol/L 02/16/2024 6:43 PM [facility] Potassium 4.3 3.5 - 5.0 mMol/L 02/16/2024 6:43 PM [facility] Chloride 110(H) 98 - 107 mMol/L 02/16/2024 6:43 PM [facility] Carbon Dioxide 20(L) 22 - 31 mMol/L 02/16/2024 6:43 PM [facility] Anion Gap 8 5 - 15 mMol/L 02/16/2024 6:43 PM EST [facility] Calcium 8.7 8.5 - 10.5 mg/dL 02/16/2024 6:43 PM EST [facility] Est Glomerular Filtration Rate - Female 99 mL/min/1. 73 m?? 02/16/2024 6:43 PM [facility] Comment: This patient's estimated GFR was [...] Foundation Fasting Status Yes 02/16/2024 6:43 PM [facility] Blood VENOUS BLOOD SPECIMEN / Unknown Venipuncture / Unknown 02/16/2024 6:02 PM EST 02/16/2024 6:09 PM EST Emily Raymond MD CHEMISTRY ORDERABLES Performing Organization Address City/[facility]/ZIP Co de Phone Number [facility] [place] [place] [address] * APTT (02/16/2024 6:02 PM EST) Partial Thromboplastin Time 31 25 - 37 sec 02/16/2024 6:47 PM EST [facility] Comment: The PTT is NOT appropriate for heparin monitoring. Use the Anti-Xa level for heparin monitoring (HEP UFH) or LMWH monitoring (HEP LMW). A PTT less than 37 seconds generally indicates adequate hemostasis. Blood VENOUS BLOOD SPECIMEN / Unknown Venipuncture / Unknown 02/16/2024 6:02 PM EST 02/16/2024 6:09 PM EST Emily Raymond MD HEMATOLOGY ORDERABLE S Performing Organization Address City/[facility]/ZIP Co de Phone Number [facility] [place] [address] * POC, GLUCOSE (02/16/2024 5:56 PM EST) Glucometer, POC 183 65 - 199 mg/dL 02/16/2024 5:56 PM EST [facility] Comment:Supplemental ranges: <140 mg/dL before meals <180 mg/dL all other times of the day. Blood CAPILLARY BLOOD / Unknown 02/16/2024 5:56 PM EST 02/16/2024 5:56 PM EST Emily Raymond MD POINT OF CARE TEST O RDERABLES [facility] [place] [address] * (ABNORMAL) Blood Gas, Arterial POC (02/16/2024 3:42 PM EST) [facility] Signature pH, Arterial 7.30(L) 7.35 - 7.45 02/16/2024 3:43 PM [facility] PCO2, Arterial 40 35 - 45 mmHg 02/16/2024 3:43 PM [facility] PO2, Arterial 220(H) 85 - 104 mmHg 02/16/2024 3:43 PM [facility] Bicarbonate, Arterial 19.4(L) 20.0 - 26.0 mmol/L 02/16/2024 3:43 PM [facility] Base Excess, Arterial -7.0(L) -3.0 - 3.0 mmol/L 02/16/2024 3:43 PM [facility] Hemoglobin, Arterial 10.5(L) 11.7 - 15.5 g/dL 02/16/2024 3:43 PM [facility] Oxyhemoglobin, Arterial 98.2(H) 94.0 - 97.0 % 02/16/2024 3:43 PM [facility] Carboxyhemoglobin , Arterial 0.6 % 02/16/2024 3:43 PM [facility] Comment: Nonsmokers: 0.5-1.5% COHB ?? Smokers: Variable ??but usually less than 10% ?? Toxic: 20-30% COHB ?? Lethal: Greater than 60% COHB Methemoglobin, Arterial 0.2 <=1.5 % 02/16/2024 3:43 PM EST [facility] Sodium, Arterial 136 135 - 145 mmol/L 02/16/2024 3:43 PM [facility] Potassium, Arterial 3.6 3.5 - 5.0 mmol/L 02/16/2024 3:43 PM [facility] Chloride, Arterial 110(H) 98 - 107 mmol/L 02/16/2024 3:43 PM [facility] Lactate, Arterial 1.4 0.5 - 2.2 mmol/L 02/16/2024 3:43 PM [facility] IONIZED CALCIUM, ARTERIAL 1.22 1.15 - 1.33 mmol/L 02/16/2024 3:43 PM [facility] Glucose, Arterial 176 65 - 199 mg/dL 02/16/2024 3:43 PM [facility] Comment:Glucose Concentratio n >=200 mg/dL plus symptoms is consistent with Diabetes Mellitus. Blood ARTERIAL BLOOD / Unknown 02/16/2024 3:42 PM EST 02/16/2024 3:43 PM EST Emily Raymond MD POINT OF CARE TEST O RDERABLES [facility] [place] [place] [address] * (ABNORMAL) Blood Gas, Arterial POC (02/16/2024 1:26 PM EST) pH, Arterial 7.31(L) 7.35 - 7.45 02/16/2024 1:27 PM EST [facility] PCO2, Arterial 41 35 - 45 mmHg 02/16/2024 1:27 PM EST [facility] PO2, Arterial 167(H) 85 - 104 mmHg 02/16/2024 1:27 PM [facility] Bicarbonate, Arterial 20.2 20.0 - 26.0 mmol/L 02/16/2024 1:27 PM [facility] Base Excess, Arterial -6.1(L) -3.0 - 3.0 mmol/L 02/16/2024 1:27 PM [facility] Hemoglobin, Arterial 11.8 11.7 - 15.5 g/dL 02/16/2024 1:27 PM [facility] Oxyhemoglobin, Arterial 97.5(H) 94.0 - 97.0 % 02/16/2024 1:27 PM [facility] Carboxyhemoglobin , Arterial 1.4 % 02/16/2024 1:27 PM [facility] Comment: Nonsmokers: 0.5-1.5% COHB ?? Smokers: Variable ??but usually less than 10% ?? Toxic: 20-30% COHB ?? Lethal: Greater than 60% COHB Methemoglobin, Arterial 0.1 <=1.5 % 02/16/2024 1:27 PM [facility] Sodium, Arterial 139 135 - 145 mmol/L 02/16/2024 1:27 PM [facility] Potassium, Arterial 3.4(L) 3.5 - 5.0 mmol/L 02/16/2024 1:27 PM [facility] Chloride, Arterial 109(H) 98 - 107 mmol/L 02/16/2024 1:27 PM [facility] Lactate, Arterial 0.9 0.5 - 2.2 mmol/L 02/16/2024 1:27 PM [facility] IONIZED CALCIUM, ARTERIAL 1.11(L) 1.15 - 1.33 mmol/L 02/16/2024 1:27 PM [facility] Glucose, Arterial 146 65 - 199 mg/dL 02/16/2024 1:27 PM [facility] Comment:Glucose Concentratio n >=200 mg/dL plus symptoms is consistent with Diabetes Mellitus. Blood ARTERIAL BLOOD / Unknown 02/16/2024 1:26 PM EST 02/16/2024 1:27 PM EST Emliy Raymond MD POINT OF CARE TEST O RDERABLES [facility] [place] [address] * (ABNORMAL) Blood Gas, Arterial POC (02/16/2024 11:02 AM EST) pH, Arterial 7.36 7.35 - 7.45 02/16/2024 11:03 AM [facility] PCO2, Arterial 41 35 - 45 mmHg 02/16/2024 11:03 AM [facility] PO2, Arterial 78(L) 85 - 104 mmHg 02/16/2024 11:03 AM [facility] Bicarbonate, Arterial 22.5 20.0 - 26.0 mmol/L 02/16/2024 11:03 AM [facility] Base Excess, Arterial -2.9 -3.0 - 3.0 mmol/L 02/16/2024 11:03 AM [facility] Hemoglobin, Arterial 12.9 11.7 - 15.5 g/dL 02/16/2024 11:03 AM [facility] Oxyhemoglobin, Arterial 93.2(L) 94.0 - 97.0 % 02/16/2024 11:03 AM [facility] Carboxyhemoglobin , Arterial 1.9 % 02/16/2024 11:03 AM [facility] Comment: Nonsmokers: 0.5-1.5% COHB ?? Smokers: Variable ??but usually less than 10% ?? Toxic: 20-30% COHB ?? Lethal: Greater than 60% COHB Methemoglobin, Arterial 0.2 <=1.5 % 02/16/2024 11:03 AM [facility] Sodium, Arterial 139 135 - 145 mmol/L 02/16/2024 11:03 AM [facility] Potassium, Arterial 3.8 3.5 - 5.0 mmol/L 02/16/2024 11:03 AM [facility] Chloride, Arterial 108(H) 98 - 107 mmol/L 02/16/2024 11:03 AM [facility] Lactate, Arterial 0.9 0.5 - 2.2 mmol/L 02/16/2024 11:03 AM [facility] IONIZED CALCIUM, ARTERIAL 1.14(L) 1.15 - 1.33 mmol/L 02/16/2024 11:03 AM [facility] Glucose, Arterial 140 65 - 199 mg/dL 02/16/2024 11:03 AM [facility] Comment:Glucose Concentratio n >=200 mg/dL plus symptoms is consistent with Diabetes Mellitus. Blood ARTERIAL BLOOD / Unknown 02/16/2024 11:02 AM EST 02/16/2024 11:03 AM EST Emily Raymond MD POINT OF CARE TEST O RDERABLES [facility] [place] [address] * (ABNORMAL) Blood Gas, Arterial POC (02/16/2024 9:08 AM EST) pH, Arterial 7.38 7.35 - 7.45 02/16/2024 9:11 AM [facility] PCO2, Arterial 39 35 - 45 mmHg 02/16/2024 9:11 AM [facility] PO2, Arterial 225(H) 85 - 104 mmHg 02/16/2024 9:11 AM [facility] Bicarbonate, Arterial 22.7 20.0 - 26.0 mmol/L 02/16/2024 9:11 AM [facility] Base Excess, Arterial -2.5 -3.0 - 3.0 mmol/L 02/16/2024 9:11 AM [facility] Hemoglobin, Arterial 13.4 11.7 - 15.5 g/dL 02/16/2024 9:11 AM [facility] Oxyhemoglobin, Arterial 96.6 94.0 - 97.0 % 02/16/2024 9:11 AM [facility] Carboxyhemoglobin, Arterial 2.6 % 02/16/2024 9:11 AM [facility] Comment: Nonsmokers: 0.5-1.5% COHB ?? Smokers: Variable ??but usually less than 10% ?? Toxic: 20-30% COHB ?? Lethal: Greater than 60% COHB Methemoglobin, Arterial 0.1 <=1.5 % 02/16/2024 9:11 AM [facility] Sodium, Arterial 138 135 - 145 mmol/L 02/16/2024 9:11 AM [facility] Potassium, Arterial 3.8 3.5 - 5.0 mmol/L 02/16/2024 9:11 AM [facility] Chloride, Arterial 107 98 - 107 mmol/L 02/16/2024 9:11 AM [facility] Lactate, Arterial 1.1 0.5 - 2.2 mmol/L 02/16/2024 9:11 AM [facility] IONIZED CALCIUM, ARTERIAL 1.16 1.15 - 1.33 mmol/L 02/16/2024 9:11 AM [facility] Glucose, Arterial 108 65 - 199 mg/dL 02/16/2024 9:11 AM [facility] Comment:Glucose Concentratio n >=200 mg/dL plus symptoms is consistent with Diabetes Mellitus. Blood ARTERIAL BLOOD / Unknown 02/16/2024 9:08 AM EST 02/16/2024 9:11 AM EST Emily Raymond MD POINT OF CARE TEST O RDERABLES [facility] [place] [place] [address] * ABORH RECHECK (PATIENT HISTORY FOUND) (02/16/2024 8:14 AM EST) ABORH Recheck Progress Complete 02/16/2024 12:01 PM EST [facility] Blood VENOUS BLOOD SPECIMEN / Unknown Venipuncture / Unknown 02/16/2024 8:14 AM EST 02/16/2024 9:22 AM EST Emily Raymond MD BLOOD BANK LAB ORDER MARILIN Performing Organization Address City/[facility] Co de Phone Number [facility] [place] [address] * Type and screen ([facility] [place] [place]) (02/16/2024 8:14 AM EST) [facility] Type B NEGATIVE 02/16/2024 10:54 AM EST [facility] PATIENT HISTORY Found 02/16/2024 10:54 AM EST [facility] Expires at [id number] on: 02/19/2024 02/16/2024 10:54 AM EST [facility] ANTIBODY SCREEN AUTOMATED Negative 02/16/2024 10:54 AM EST [facility] T&S only valid at [facility] 02/16/2024 10:54 AM EST [facility] Blood VENOUS BLOOD SPECIMEN / Unknown Venipuncture / Unknown 02/16/2024 8:14 AM EST 02/16/2024 9:22 AM EST Narrative [facility] - 02/16/2024 10:54 AM EST This Type and Screen result is only valid at the [facility] Emily Raymond MD BLOOD BANK LAB ORDER MARILIN Performing Organization Address City/[facility] Co de Phone Number [facility] [place] [address] * XR Fluoro No Rad <1Hr - OR Use (02/16/2024 7:48 AM EST) Narrative Dicom, Auditing User - 02/16/2024 7:49 AM EST This exam is auto-finalizing. No interpretation was done. 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 - Unless otherwise specified, when ordered PRN for pain, acetaminophen should be given first if other PRN pain medications are ordered., Routine Given 02/24/2024 8:59 AM EST 975 mg aspirin chewable tablet 81 mg 81 mg, Oral, DAILY, First dose (after last modification) on Thu02/20/24 at 1145, Until Discontinued, Routine Given 02/24/2024 8:59 AM EST 81 mg Given 02/23/2024 8:06 AM EST 81 mg Given 02/22/2024 8:43 AM EST 81 mg bisacodyL (Dulcolax) suppository 10 mg 10 [...] Given 02/23/2024 8:06 AM EST 20 mg heparin (porcine) (5,000 units/1 mL) subcutaneous injection 5,000 Units 5,000 Units, Subcutaneous, EVERY 8 HOURS SCHEDULED, First dose on Thu02/17/24 at 0800, Until Discontinued, Routine Given 02/24/2024 5:54 AM EST 5,000 Unit s Given 02/23/2024 9:00 PM EST 5,000 Units Given 02/23/2024 2:01 PM EST 5,000 Units ipratropium-albuteroL (Duoneb) 0.5 mg-3 mg(2.5 mg base)/3 mL nebulizer solution 3 mL 3 mL, Nebulization, EVERY 4 HOURS SCHEDULED, First dose on Thu02/17/24 at 2145, Until Discontinued, Routine Given 02/24/2024 7:47 AM EST 3 mLs Given 02/24/2024 4:25 AM EST 3 mLs Given 02/23/2024 11:21 PM EST 3 mLs lactulose (Chronulac) (0.67 gram/mL) oral liquid 20 [...] Given 02/22/2024 9:03 PM EST 3 mg montelukast (Singulair) chewable tablet 5 mg 5 mg, Oral, NIGHTLY, First dose on Thu02/16/24 at 2100, Until Discontinued, Routine Given 02/23/2024 8:49 PM EST 5 mg Given 02/22/2024 8:20 PM EST 5 mg Given 02/21/2024 9:51 PM EST 5 mg ondansetron (pf) (Zofran) (2 mg/mL) injection 4 mg 4 mg, Intravenous, EVERY 8 HOURS PRN, Starting on Thu02/17/24 at 0700, Until Thu02/24/24 at 1431, Nausea Given 02/17/2024 7:11 AM EST 4 mg polyethylene glycoL (Miralax) packet 17 g 17 [...] Given 02/22/2024 5:12 AM EST 40 mEq prochlorperazine (Compazine) (5 mg/mL) injection 10 mg 10 mg, Intravenous, EVERY 6 HOURS PRN, Starting on Thu02/17/24 at 0917, Until Thu02/24/24 at 1431, Nausea, If multiple antiemetics are ordered, use ondansetron first. ??If ondansetron ineffective use prochlorperazine. ?? PO Preferred. If patient unable to take PO, may give IV if ordered., Routine Given 02/17/2024 9:33 AM EST 10 mg senna-docusate (Pericolace) 8.6-50 mg per tablet 2 [...] Given 02/23/2024 9:51 PM EST 50 mg documented in this encounter Active and [...] 0859 (Given - Provider: Harley Montanez RN) famotidine (Pepcid) tablet 20 mg 20 mg, Oral, 2 TIMES DAILY, First dose on Thu02/16/24 at 1900, Until Discontinued, Routine 0843 (Given - Provider: Alia Ochoa RN)2019 (Given - Provider: Jacquelin Lam RN) 0806 (Given - Provider: Klaus Moreno RN)2049 (Given - Provider: Elana Maldonado RN) 0859 (Given - Provider: Harley Montanez RN) heparin (porcine) (5,000 units/1 mL) subcutaneous injection 5,000 Units 5,000 Units, Subcutaneous, EVERY 8 HOURS SCHEDULED, First dose on Thu02/17/24 at 0800, Until Discontinued, Routine 0507 (Given - Provider: Reyes Kemp RN)1301 (Given - Provider: Alia Ochoa RN)2139 (Given - Provider: Jacquelin Lam RN) 0634 (Given - Provider: Jacquelin W Genaro, RN)1401 (Given - Provider: Klaus Moreno RN)2100 (Given - Provider: Elana Maldonado, NEYDA) 0554 (Given - Provider: Elana Maldonado RN) ipratropium-albuteroL (Duoneb) 0.5 mg-3 mg(2.5 mg base)/3 mL nebulizer solution 3 mL 3 mL, Nebulization, EVERY 4 HOURS SCHEDULED, First dose on Thu02/17/24 at 2145, Until Discontinued, Routine 0001 (Given - Provider: Reyes Kemp RN)0400 (Not Given - Provider: Reyes Kemp RN - Reason: Patient/family refused)0800 (Given [...] 0843 (Patch Applied - Provider: Alia Ochoa RN)2043 (Patch Removed - Provider: Jacquelin Lam RN) 0806 (Patch Applied - Provider: Klaus Moreno, NEYDA)194 (Patch Removed - Provider: Elana Maldonado, NEYDA) 0900 (Patch Applied - Provider: Harley Montanez, NEYDA)1200 (Due: Patch Removed - Provider: Automatic Discharge Provider - Comment: Time automatically adjusted from order being discontinued) loratadine (Claritin) tablet 10 mg 10 mg, Oral, DAILY, First dose on Thu02/16/24 at 1915, Until Discontinued, Routine 0843 (Given - Provider: Alia Ochoa RN) 0806 (Given - Provider: Klaus Moreno, NEYDA) 0859 (Given - Provider: Harley Montanez, NEYDA) montelukast (Singulair) chewable tablet 5 mg 5 [...] over 4 Hours, Warning Vesicant/Irritant Medication Per shellfish harvester labeling, do not administer or Y-site with [...] Klaus Moreno RN)2002 (Stopped - Provider: Elana Maldonado, NEYDA)2317 (New Bag - Provider: Elana Maldonado, NEYDA) 0317 (Stopped - Provider: Elana Maldonado, NEYDA)0747 (New Bag - Provider: Harley Montanez, NEYDA)0953 [...] Cecilio Mayes RCP)2321 (Given - Provider: Elana Maldonado RN) 0748 (Given - Provider: Harley Montanez RN) sodium chloride 0.9 % (flush) (BD PosiFlush Normal Saline 0.9) flush 5 mL 5 mL, Intravenous, 2 TIMES DAILY, First dose on Thu02/15/24 at 2100, Until Discontinued, Routine 0844 (Given - Provider: Alia Ochoa RN)204 (Given - Provider: Jacquelin Lam RN) 0808 (Given - Provider: Klaus Moreno RN)2049 (Given - Provider: Elana Maldonado RN) 0900 (Due) sodium chloride 0.9 % (flush) (BD PosiFlush Normal Saline 0.9) flush 5 mL 5 mL, Intravenous, 2 TIMES DAILY, First dose on Thu02/16/24 at 0900, Until Discontinued, Recovery (Recovery-Hospital Unit), Routine 0844 (Given - Provider: Alia Ochoa RN)204 (Given - Provider: Jacquelin Lam, RN) 0809 (Given - Provider: Klaus Moreno, RN)204 (Given - Provider: Elana Maldonado, NEYDA) 0900 (Due) tiZANidine (Zanaflex) tablet 4 mg (CANCELED) 4 mg, Oral, 3 TIMES DAILY, First dose on Thu02/21/24 at 0945, Until Discontinued, Routine 0844 (Given - Provider: Alia Ochoa RN)153 (Given - Provider: Alia Ochoa, NEYDA)2019 (Given - Provider: Jacquelin Lam, NEYDA) 0805 (Given - Provider: Klaus Moreno, RN) Continuous Medication Order 02/22/2024 02/23/2024 02/24/2024 [...] Kemp RN)0403 (Rate/Dose Change - Provider: Reyes Kemp RN)0810 (Rate/Dose Verify - Provider: Alia Ochoa RN)0945 (Rate/Dose Change - Provider: Alia Ochoa RN)1001 (Rate/Dose Change - Provider: Alia Ochoa RN)1200 (Rate/Dose Verify - Provider: Alia Ochoa RN)1301 (Rate/Dose Change - Provider: Alia Ochoa RN)1355 (Rate/Dose Verify - Provider: Alia Ochoa RN)1532 (Paused - Provider: Alia Ochoa RN)1632 (Rate/Dose Change - Provider: Alia Ochoa RN)1700 (Rate/Dose Change - Provider: Alia Ochoa RN)1815 (Rate/Dose Change - Provider: Alia Ochoa RN)1846 (Rate/Dose Change - Provider: Alia Ochoa RN)2046 (Rate/Dose Change - Provider: Jacquelin Lam RN)2102 (New Bag - Provider: Jacquelin Lam RN)2143 (Rate/Dose Change - Provider: Jacquelin Lam RN) 0030 (Rate/Dose Change - Provider: Jacquelin Lam RN)0104 (Rate/Dose Change - Provider: Jacquelin Lam RN)0206 (Rate/Dose Change - Provider: Jacquelin Lam RN)0350 (Paused - Provider: Jacquelin Lam RN)0908 (Restarted [...] Lam RN) 0554 (Given - Provider: Elana Maldonado, NEYDA) bisacodyL (Dulcolax) suppository 10 mg(Linked Group 1) [...] 2045, Until Thu02/24/24 at 1431, Sleep, Routine 2102 (Given - Provider: Jacquelin Lam RN) ondansetron (pf) (Zofran) (2 mg/mL) injection 4 [...] crush, chew, or suck on tablet., Routine 05 (Given - Provider: Reyes Kemp RN) 352 [...] enema (CANCELED) Routine, DAILY PRN, Starting on 02/19/24 at 0935, Until Specified, Give if no BM in at least 24 hr and all other ordered bowel regimen medications have been unsuccessful. Give concomitantly with any scheduled bowel medications ordered. documented in this encounter Additional Health Concerns Infection Onset Date Last Indicated Resolved Time Rule Out Respiratory 02/18/2024 02/18/2024 024 10:50 AM EST documented as of this encounter Care Teams Plate Keeper Relationship Specialty Start Date End Date Estrella Mckay, SIZE TESTER [address] [place] [address] PCP - General Family Medicine 12/14/23 documented as of this encounter
--- OUTSIDE RECORDS SUMMARY | 2024-02-29 15:52 | XMS_ITS | Encounter Summary ---
Author [place] [address] Care Team Providers Care Lei Maker Name Role Phone Estrella Mckay APRN Primary Care Provider [phone] Reason for Visit * Reason Comments Leg Pain * Auth/Cert (Routine) Specialty Diagnoses / Procedures Referred By Contac t Referred To Contact Diagnoses Systemic mastocytosis Left leg pain Pain of left calf Procedures EMERGENCY OBSVO Jeanna Carreon MD [facility] [place] [address] [facility] Referral ID Status Reason Start Date Expiration Date Visits Re quested Visits Authorized [id number] 1 1 Encounter Details Date Type Department Care Team (Late st Contact Info) Description 02/04/2024 2:18 PM EDT - 02/05/2024 5:36 PM EDT [place] [id number] Jeanna Carreon MD [facility] [place] [address] Pain of left calf; Systemic mastocytosis; Pre-op testing; Aortoiliac occlusive disease Discharge Disposition: Home Social History Tobacco Use Types Packs/Day Years Used Date Smoking Tobacco: Former Cigarettes 1 30 Q uit: 2012 Smokeless Tobacco: Never Comments:3/4TH PK A DAY Alcohol Use Standard Drinks/Week Comments No 0 (1 standard drink = 0.6 oz pur e alcohol) [facility] Utilities Answer Date Recorded In the past 12 months has th e electric, gas, oil, or water company threatened to shut off services in your home? No 02/05/2024 Hunger Vital Sign Answer Date Recorded Within the past 12 months, y ou worried that your food would run out before you got the money to buy more. Never true 02/05/20 24 Within the past 12 months, t he food you bought just didn't last and you didn't have money to get more. Never true 02/05/2024 PRAPARE - Transportation Answer Date Re corded In the past 12 months, has l ack of transportation kept you from medical appointments or from getting medications? No 04/2023 In the past 12 months, has l ack of transportation kept you from meetings, work, or from getting things needed for daily living? No 02/05/2024 Housing Stability Vital Sign Answer [place] e Recorded In the last 12 months, was t here a time when you were not able to pay the mortgage or rent on time? No 02/05/2024 In the past 12 months, how m any times have you moved where you were living? 0 02/05/2024 At any time in the past 12 m [facility], were you homeless or living in a retirement (including now)? No 02/05/2024 DH IPV Inpatient Questions Answer Date Recorded Does Anyone Try to Keep You From Having Contact with Others or Doing Things Outside Your Home? no 02/04/2024 Feels Threatened by Someone no 01/06 Feels Unsafe at Home or Work/School no 02/04/2024 Physical Signs of Abuse Present no 02/04/2024 Sex and Gender Information Value Date Recorded Sex Assigned at Not on file Gender Identity Not on file Sexual Orientation Not on file documented as of this encounter Last Filed Vital Signs Vital Sign Reading Time Taken Comments Blood Pressure 121/59 02/05/2024 7:26 AM EDT Pulse 66 02/05/2024 4:41 PM EDT Temperature 36.3 ??C (97.3 ??F) 02/05/2024 4:41 PM ED T Respiratory Rate 16 02/05/2024 4:41 PM EDT Oxygen Saturation 95% 02/05/2024 7:26 AM EDT Inhaled Oxygen Concentration - - Weight 56.2 kg (124 lb) 02/04/2024 2:16 PM EDT Height 160 cm (5' 3) 02/04/2024 2:16 PM EDT Body Mass Index 21.97 02/04/2024 2:16 PM EDT documented in this encounter Discharge Summaries * Amelia Nelson MD - 02/05/2024 1:20 PM EDT Inpatient - Discharge Summary Patient Name: Ashley Grayson Patient Age: 63 y.o. Birthdate: 1960 Admit date: 02/04/2024 Discharge date and time: 02/05/24 Attending Physician: Jeanna Carreon MD Discharging Provider: Amelia Nelson MD Discharging Service: Vascular Surgery Operations/Major Procedures: none Active Hospital Problems: Active Hospital Problems Diagnosis Left leg pain Resolved Hospital Problems No resolved problems to display. Active Non Hospital Problems: Active Non-Hospital Problems Diagnosis Back pain Right leg pain History of Presentation: Ashley Grayson is a 63 y.o. female with a past medical history of aortoiliac disease with lifestyle limiting claudication status post aortobifemoral bypass (UV, 2012) neurogenic thoracic outlet syndrome status post first rib resection and scalenectomy ([facility]), and systemic mastocytosis who presented to the emergency department for evaluation of left foot pain at night beginning on 01/30. Patient reports that she was in her usual state of health on 01/30 when she was folding laundry at home when she started noticing pain in her calf which changed to pain in her left forefoot at night while resting. She noted that she felt like something was off however was not sure what to make of it. She is currently getting worked up for systemic mastocytosis and [facility] and described her symptoms in the urged her to present to the emergency room for evaluation. Of note she has had no issues with ambulation, motor loss, or sensation deficits of her left foot or leg. She abstains from smoking and quit in 2012 after her aortobifemoral bypass. She has not been on antiplatelet therapy or statin therapy for roughly 3 years as there was concernthis was potentially implicated in side effects that were later discovered to be potentially her inflammatory condition. She had a prior CT scan for surveillance of this condition in August 2023 that noted a occluded right limb of aortobifemoral bypass however she has been entirely asymptomatic from this. In fact she was not necessarily told about it and did not have vascular surgery follow-up for it. She has intermittently seen her vascular surgeons at [facility] for care and was told she did not need to be seen in their clinic anymore a few years ago. 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 Her foot pain has not limited her ability to workor require extensive pain control at home. Has no personal history of cancer, no family history of vascular disease, and a few members on the maternal side of her family had uterine cancer. Past surgical history is significant for her aortobifemoral bypass, first rib resection/scalenectomy, laparoscopic cholecystectomy, open appendectomy, Pfannenstiel incision hysterectomy Hospital Course: Admitted for diagnostics prior to surgical intervention, monitoring of CLTI. Patient underwent EKG, notable for SR with PVC, RBB, otherwise stable; unremarkable. See report below. TTE performed with adequate EF, no valvular/wall motion abnormalities, see report below. ABIs asbelow, with L>R moderately severe LE occlusive disease, absent toe wave forms; report below. LLEduplex negative for DVT. CTA chest and LE w/ runoff reports below; notable for aortic occlusion inferior to CURTIS, R bypass limb, intervally occluded L bypass limb. Consultations for oncology, pulmonology and cardiology for risk stratification for possible axfem vs thoracoabdominal byass. Please see full notes/recommendations below. While inpatient, she received PFTs with respiratory therapy per pulmonology recommendations. Pending pulmonology recommendations. Cardiology consulted while inpatient; see recommendations below. Oncology consulted while inpatient; see recommendations below. Patient NOAC screen - insurance with cost of $260 for Xarelto/Apixaban. She is agreeable to cost ofCenterra NOAC at $75. Eliquis was prescribed at discharge. Physical Exam: General: no acute distress, conversant HEENT: Normocephalic, atraumatic NECK: Supple, no masses, trachea midline CV: Normal rate, regular rhythm RESP: NWOB on RA GI: Soft, NT/ND, no palpable abdominal mass, midline and lower abd incisions well healed EXT: wwp, no evidence of lower extremity edema or wounds, no rubor in her feet NEURO: No gross focal deficits VASC: Bilateral monophasic DP/PT signals, multiphasic signals in both groins however not palpable Consultations: Pulmonology: Per discussion wit pulmonology team: Yaya lui/IS/pulmonary toilet in the perioperative period. No further pulmonary work up necessary. Pending note. Cardiology: Per 02/04 cardiology note: She has no cardiac history. She denies angina. No history of CHF. Functional capacity is good. She still works full-time in a physically demanding job. She tells me she would be able to climb 2 flights of stairs absent the acute leg issue without very much difficulty. I see no issues present from my standpoint with proceeding with vascular surgery. - No further cardiac testing at this time - No medication changes necessary Oncology: Per discussion with Heme/onc team: No additional workup needed for this patient. Mastocytosis is more prone to bleeding than clotting as mast cells also produce heparin-like substance. Please treat as one normally would treat other patients. Advise to avoid agents that precipitate art objects supervisor release, such as aspirin, nonsteroidal anti-inflammatory drugs, codeine, morphine, alcohol, thiamine, quinine, opiates, gallamine, decamethonium, procaine, radiographic dyes, dextran, polymyxin B, scopolamine, and D-tubocurarine. Important Studies and Lab Data: Labs: 02/04/24: EKG Sinus rhythm with Premature supraventricular complexes Right bundle branch block Abnormal ECG 02/04/24: TTE: Interpretation Summary -Left ventricular systolic function is normal. Left ventricular ejection fraction is estimated visually at 55-60%. There are no segmental wall motion abnormalities. -The right ventricle is of normal size. Right ventricular systolic function is normal. -No significant valvular disease. -No comparison study is available. Procedure Complete-[id number]. Satisfactory quality. Left Ventricle Left ventricle is [...] pressure). 2D Measurements Volumes IVSd: 0.95 cm LAV(MOD-bp) Indexed: LVIDd: 4.5 cm LVIDs: 3.4 cm 19.1 ml/m2 RA A4Cs_phl: 16.3 cm2 LVPWd: 0.93 cm SV(LVOT): 59.1 ml RWT: 0.41 LV mass(C)d: 141.4 grams SI(LVOT): 37.5 ml/m2 LV mass(C)dI: 89.6 grams/m2 Ao root diam: 3.2 cm Ao root diam index: 2.0 asc Aorta Diam: 2.9 cm LVOT diam: 2.0 cm TAPSE_phl: 2.7 cm Doppler LV V1 VTI: 19.5 cm Ao V2 VTI: 21.5 cm Ao Max Julio: 113.8 cm/sec Ao valve max: 5.2 mmHg Ao valve mean: 2.1 mmHg MV E max julio: 74.4 cm/sec MV A max julio: 79.4 cm/sec MV E/A: 0.94 Lat Peak E' Julio: 5.3 cm/sec E/e' (lat): 14.1 Med Peak E' Julio: 5.7 cm/sec E/e' (med): 13.1 E/e' Average: 13.6 [place](I,D): 2.8 cm2 Dimensionless index Aov: 0.91 I WMSI = 1.00 % Normal = 100 Segments Size X - Cannot 2 - 4 - 1-2 small Interpret 1 - Normal Hypokinetic 3 - Akinetic Dyskinetic 3-5 moderate 5 - 6-14 large Aneurysmal 15-16 diffuse 02/04/24: ABIs Findings: Right Pressure (mm Hg) MARGIE Waveform TBI Brachial Artery 138 Common Femoral Artery [place]o-Biphasic Popliteal Artery [place]o-Biphasic Dorsalis Pedis (Ankle) Artery 62 0.43 [place]-Biphasic Posterior Tibial (Ankle) Artery 62 0.43 [place]-Biphasic Great Toe 51 0.36 Left Pressure (mm Hg) MARGIE Waveform TBI Brachial Artery 143 Common Femoral Artery Monophasic Popliteal Artery Monophasic Dorsalis Pedis (Ankle) Artery 20 0.14 Monophasic Posterior Tibial (Ankle) Artery 22 0.15 Monophasic Great Toe 0 0.00 Interpretation: RIGHT: Moderately severe lower extremity arterial occlusive disease. Toe-brachial index indicates presence of moderate arterial occlusive disease in the foot. 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 LEFT: Severe lower extremity arterial occlusive disease. Toe waveform is absent. 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 NOTE: Hypertension is present based on Doppler derived systolic brachial blood pressure. Comparison: No previous study in our vascular lab database for comparison. Notification: Dr. Matt Dias was informed of these preliminary findings. 02/04/24: CTA Chest; CAP w/ runoff CLINICAL HISTORY: Intermittent cold left foot and [...] and pelvis dated August 18, 2023. FINDINGS: Dye Reel Operator Helper Images: Noncontributory. VASCULAR FINDINGS Abdominal aorta: There is been prior aorto bifemoral bypass. The lower brule aorta occludes immediately inferior to the bypass graft. The bypass graft is now occluded in both [...] evaluation of the distal esophagus is unremarkable. The stomach is under distended, limiting evaluation. The descending duodenum is redundant. The duodenum, however, does cross midline in expected position. The colon is expected position. The ileocecal valve is within normal limits. The appendix is surgically absent. The remainder of the large bowel is within normal limits. Peritoneum and retroperitoneum: No hemorrhage. No pneumoperitoneum. No fluid collection or mesenteric inflammation. Abdominal wall: Normal. Reproductive organs: The uterus is surgically absent. Limited evaluation of the adnexa is within normal limits. Osseous structures: There is diffuse heterogeneity of the osseous structures with relative increased sclerosis diffusely. IMPRESSION 1. Status post aortobiiliac bypass. 2. Unchanged occlusion of the lower brule aorta immediately inferior to the inferior mesenteric artery. 3. 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 Interval occlusion of the left bypass limb. 4. Reconstitution of the femoral vasculature bilaterally via collaterals. Otherwise, widely patent three-vessel runoff of the bilateral lower extremity. 5. 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 Per ACR white paper guidelines, follow-up MRI of the abdomen is recommended in one year. 6. Diffuse heterogeneity of osseous structures with increased sclerosis. Diffuse metastatic disease can be considered. Alternatively, other etiologies including renal osteodystrophy or other metabolic etiologies can be considered. EXAMINATION: CT ANGIOGRAM CHEST (NON-CORONARY)W CONTRAST CLINICAL [...] fracture. Diffuse patchy lucent and sclerotic marrow. IMPRESSION 1. Mild atherosclerosis. No aortic aneurysm or dissection. 2. Diffusely abnormal appearing consistent with history of mastocytosis Thank you for letting us participate in the care of this patient. If you are a health care provider and have any questions regarding this report, please contact the number below. For patients who have questions please contact the health farm or ranch animal caretaker that requested your imaging first. 02/04/24: DVT duplex Findings: LEFT: Patent common femoral vein and popliteal vein with spontaneous, respirophasic Doppler waveforms that respond normally to augmentation maneuvers. The common femoral vein, saphenofemoral junction, femoral vein through the thigh and popliteal vein are fully compressible. Patent posterior tibial and peroneal veins with no evidence of thrombus. Incidental Finding: There is no identifiable flow in the distal left limb of the [id number]-bn-btlgujd bypass graft. There is low velocity, monophasic flow in what is suspected to be the lower brule common femoral artery, but unable to determine [...] of occluded distal left limb of the tnxfq-cl-eomqbky bypass graft. There does appear to be flow within the lower brule common femoral artery with reconstitution of flow at the femoral bifurcation. Comparison: No previous study in our vascular lab database for comparison. Pending Studies and Lab Data: N/A Discharge Condition: Discharge to: Home Future Appointments and Orders Future Appointments and Orders Future Appointments Provider Department Dept Phone 02/11/2024 7:15 AM LABORATORY, TECH Lab at [facility] Hematology Oncology 3K Arrive at: Ob/Gyn Nurse Area [phone] 02/11/2024 8:00 AM RESEARCH INVESTIGATIONAL, PHARMACY Hematology and Oncology at [facility] Arrive at: Ob/Gyn Nurse Area [phone] 02/11/2024 8:30 AM Edmund Truong MD Hematology and Oncology at [facility] Arrive at: Ob/Gyn Nurse Area [phone] 02/11/2024 8:30 AM Bennett Turner RN Hematology and Oncology at [facility] Arrive at: Ob/Gyn Nurse Area [phone] 02/11/2024 8:30 AM Omid Degroot MD Hematology and Oncology at [facility] Arrive at: Ob/Gyn Nurse Area [phone] 02/11/2024 9:30 AM ACCESS ROOM Hematology and Oncology at [facility] Arrive at: Ob/Gyn Nurse [address] [phone] 02/18/2024 10:45 AM LABORATORY, TECH Lab at [facility] Hematology Oncology 3K Arrive at: Ob/Gyn Nurse Area [phone] 02/18/2024 11:30 AM Bennett Turner RN Hematology and Oncology at [facility] Arrive at: Ob/Gyn Nurse Area [phone] 02/18/2024 11:30 AM Omid Degroot MD Hematology and Oncology at [facility] Arrive at: Ob/Gyn Nurse Area [phone] 02/18/2024 1:15 PM ACCESS ROOM Hematology and Oncology at [facility] Arrive at: Ob/Gyn Nurse Area [phone] 02/25/2024 10:45 AM LABORATORY, TECH Lab at [facility] Hematology Oncology 3K Arrive at: Ob/Gyn Nurse Area [phone] 02/25/2024 11:30 AM Edmund Truong MD Hematology and Oncology at [facility] Arrive at: Ob/Gyn Nurse Area [phone] 02/25/2024 11:30 AM Bennett Turner RN Hematology and Oncology at [facility] Arrive at: Ob/Gyn Nurse Area [phone] 02/25/2024 11:30 AM Omid Degroot MD Hematology and Oncology at [facility] Arrive at: Ob/Gyn Nurse Area [phone] 02/25/2024 12:45 PM ACCESS ROOM Hematology and Oncology at [facility] Arrive at: Ob/Gyn Nurse Area [phone] 03/04/2024 7:00 AM [facility] DB DEXA ROOM 1 Mammography/DXA at [facility] Arrive at: Ob/Gyn Nurse Area Please do not take Calcium supplements (including Tums) 24 hours before the exam. To avoid changing for the exam wear clothing that does not include zippers, buttons, rivets or grommets and underwire bras. We do have clothing to change into if this is not possible. The belly button and wrists need to be clear of jewelry. Please arrive 15 minutes prior to your appointment time. You can fill out your DXA questionnaire in [facility] up to 7 days in advance of your appointment. Anticoagulation & Antiplatelet: Anticoagulation: Agent: Eliquis 5 mg , twice daily Indication: Occluded aortobifemoral bypass Intended Duration: prescribed one month, follow up with your surgeon after your surgery for treatment duration. For questions regarding these medications, please contact: call [phone] For issues on weeknights after 5pm and weekends please call [phone] and ask for the Vascular Fellow transmission technician. Discharge Medications: Your Medications New Medications Dose Details apixaban 5 mg tablet Commonly known as: Eliquis Take 1 tablet by mouth 2 times daily. 5 mg Quantity: 60 tablet Refills: 0 Continued medications, unchanged Dose Details acetaminophen 500 mg tablet Commonly known as: Tylenol Take 1,000 mg by mouth every 6 hours as needed for Pain (generally takes 1000mg daily in am.). 1,000 mg Refills: 0 cetirizine 10 mg tablet Commonly known as: ZyrTEC Take 1 tablet by mouth daily. Indications: Systemic Mastocytosis 10 mg Quantity: 30 tablet Refills: 3 EPINEPHrine 0.3 mg/0.3 mL Auto-Injector Inject 0.3 mL IM once as needed for allergic reaction (Throat tight, difficulty breathing). Call [phone] as directed. Quantity: 1 kit Refills: 11 famotidine 20 mg tablet Commonly known as: Pepcid Take 1 tablet by mouth 2 times daily. Indications: Systemic Mastocytosis 20 mg Quantity: 30 tablet Refills: 3 montelukast 5 mg chewable tablet Commonly known as: Singulair Take 1 tablet by mouth nightly. 5 mg Quantity: 30 tablet Refills: 3 Updated Allergies/ADRs: Allergies Allergen Reactions Percocet [Oxycodone-Acetaminophen] Nausea And Vomiting Ciprofloxacin Other (See Comments) Burning with IV administration, needed benadryl Ibuprofen Hives Morphine Sulfate Nausea And Vomiting Nsaids (Non-Steroidal Anti-Inflammatory Drug) Hives Follow-up Recommendations for Providers: For questions regarding these medications, please contact Vascular Surgery at [phone]. For issues on weeknights after 5pm and weekends please call [phone] and ask for the Vascular Fellow oncall. Instructions Given to Patient at Discharge: Patient Instructions Patient Instructions You were admitted after having developed bacterial metatarsalgia and left lower extremity pain in the setting of a newly occluded left limb of aortobifemoral bypass. Regardless of the occlusion, you exam is reassuring and there was no evidence of acute limb ischemia. We have consulted the pulmonology, cardiology and hematology/oncology service for pre-operative workup and they have cleared you for surgery which we are planning potentially next week. Our office will call you to schedule your surgery. If for some reason you don't receive this within a week or so please call our office as your followup is very important. Anticoagulation: You are prescribed Eliquis 5 mg which you should take twice daily. Call your doctor if you develop: Any fever, nausea, vomiting and or increased pain. Activity level: Up as tolerated but watch for worsening of your lower extremity pain. Diet: Resume your previous regular diet. For questions regarding these medications, please contact Vascular Surgery at [phone]. For issues on weeknights after 5pm and weekends please call [phone] and ask for the Vascular Fellow oncdanielle. Vascular Surgery Contact Information: For questions regarding these medications, please contact Vascular Surgery at [phone]. For issues on weeknights after 5pm and weekends please call [phone] and ask for the Vascular Fellow oncall. documented in this encounter Discharge Instructions * Patient Instructions* Amelia Nelson MD - 02/05/2024 4:29 PM EDT Patient Instructions You were admitted after having developed bacterial metatarsalgia and left lower extremity pain in the setting of a newly occluded left limb of aortobifemoral bypass. Regardless of the occlusion, you exam is reassuring and there was no evidence of acute limb ischemia. We have consulted the pulmonology, cardiology and hematology/oncology service for pre-operative workup and they have cleared you for surgery which we are planning potentially next week. Our office will call you to schedule your surgery. If for some reason you don't receive this within a week or so please call our office as your followup is very important. Anticoagulation: You are prescribed Eliquis 5 mg which you should take twice daily. Call your doctor if you develop: Any fever, nausea, vomiting and or increased pain. Activity level: Up as tolerated but watch for worsening of your lower extremity pain. Diet: Resume your previous regular diet. For questions regarding these medications, please contact Vascular Surgery at [phone]. For issues on weeknights after 5pm and weekends please call [phone] and ask for the Vascular Fellow brandi. documented in this encounter Medications at Time of Discharge Medication Sig Dispensed Refills Start Date End Date acetaminophen (Tylenol) 500 mg tablet Take 1,000 mg by mouth every 6 hours as needed for Pain (generally takes 1000mg daily in am.). cetirizine (ZyrTEC) 10 mg tabletIndications:Syst emic Mastocytosis Take 1 tablet by mouth daily. Indications: Systemic Mastocytosis 30 tablet 3 01/07/2024 famotidine (Pepcid) 20 mg tabletIndications:Syst emic Mastocytosis Take 1 tablet by mouth 2 times daily. Indications: Systemic Mastocytosis 30 tablet 3 01/07/2024 montelukast (Singulair) 5 mg chewable tablet Take 1 tablet by mouth nightly. 30 tablet 3 01/07/2024 EPINEPHrine 0.3 mg/0.3 mL Auto-Injector Inject 0.3 mL IM once as needed for allergic reaction (Throat tight, difficulty breathing). Call 911 as directed. 1 kit 11 12/18/2023 apixaban (Eliquis) 5 mg tablet Take 1 tablet by mouth 2 times daily. 60 tablet 02/05/2024 02/11/2024 documented as of this encounter Progress Notes * Doni Arias RN - 02/05/2024 5:36 PM EDT [facility] Short Stay Unit Discharge Note All relevant discharge milestones have been met by the patent. After Visit Summary and discharge teaching reviewed with the patient. IV access has been discontinued. All personal belongings have been returned to the patient/family upon their departure from the unit. Patient has been discharged to home The patient has been discharged without VNA services. * Mikki Damon APRN - 02/05/2024 12:15 PM EDT Vascular Surgery Progress Note Ashley Grayson is a 63 y.o. female with a past medical history of aortoiliac disease with lifestyle limiting claudication status post aortobifemoral bypass ([facility], 2012) neurogenic thoracic outlet syndrome status post first rib resection and scalenectomy ([facility]), and systemic mastocytosis who presented to the emergency department for evaluation of left foot pain at night beginning on 01/30. Patient reports that she was in her usual state of health on 01/30 when she was folding laundry at home when she started noticing pain in her calf which changed to pain in her left forefoot at night while resting. She noted that she felt like something was off however was not sure what to make of it. She is currently getting worked up for systemic mastocytosis and [facility] and described her symptoms in the urged her to present to the emergency room for evaluation. Of note she has had no issues with ambulation, motor loss, or sensation deficits of her left foot or leg. She abstains from smoking and quit in 2012 after her aortobifemoral bypass. She has not been on antiplatelet therapy or statin therapy for roughly 3 years as there was concernthis was potentially implicated in side effects that were later discovered to be potentially her inflammatory condition. She had a prior CT scan for surveillance of this condition in August 2023 that noted a occluded right limb of aortobifemoral bypass however she has been entirely asymptomatic from this. In fact she was not necessarily told about it and did not have vascular surgery follow-up for it. She has intermittently seen her vascular surgeons at [facility] for care and was told she did not need to be seen in their clinic anymore a few years ago. 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 Her foot pain has not limited her ability to workor require extensive pain control at home. Has no personal history of cancer, no family history of vascular disease, and a few members on the maternal side of her family had uterine cancer. Past surgical history is significant for her aortobifemoral bypass, first rib resection/scalenectomy, laparoscopic cholecystectomy, open appendectomy, Pfannenstiel incision hysterectomy Active Hospital Problems Diagnosis Left leg pain Resolved Hospital Problems No resolved problems to display. Active Non-Hospital Problems Diagnosis Back pain Right leg pain Scheduled Medications: acetaminophen 975 mg Oral Q6H JENNIFER senna-docusate 2 tablet Oral BID polyethylene glycoL (MIRALAX) oral powder 17 g Oral Daily Operations This Hospitalization: none Interim: - DIDIER, JACINTO [employer] PRO[employer] ASSISTANT - K 3.8, repleted - Cardiology, Oncology, Pulmonology recs pending Objective: Temp: [36.3 ??C (97.3 ??F)-37.3 ??C (99.1 ??F)] Heart Rate: [75-106] Resp: [16-17] BP: (114-133)/(55-73) SpO2: [93 %-95 %] Heart Rate from SpO2: [75 bpm-79 bpm] BMI: Weight: 56.2 kg (124 lb) (02/04/24 1416) BMI (Calculated): 21.96 BMI Classification: Normal Weight Intake/Output Summary (Last 24 hours) at 02/05/2024 1215 Last data filed at 02/05/2024 0400 Gross per 24 hour Intake 250 ml Output 200 ml Net 50 ml PHYSICAL EXAM: General: no acute distress, conversant HEENT: Normocephalic, atraumatic NECK: Supple, no masses, trachea midline CV: Normal rate, regular rhythm RESP: NWOB on RA GI: Soft, NT/ND, no palpable abdominal mass, midline and lower abd incisions well healed EXT: wwp, no evidence of lower extremity edema or wounds, no rubor in her feet NEURO: No gross focal deficits VASC: Bilateral monophasic DP/PT signals, multiphasic signals in both groins however not palpable Labs: Recent Labs 02/05/24 0539 02/04/24 2324 02/04/24 1439 WBC 7.36 8.61 9.40 HGB 14.1 13.7 14.9 HCT 41.4 40.4 44.6 PLATELET 228 238 266 Recent Labs 02/04/24 1439 NA 140 K 3.8 CL 104 CO2 24 BUN 7* CREATININE 0.74 CALCIUM 9.5 Microbiology: Microbiology Results (last 7 days) No results found for the last 168 hours. New Studies: ABIs Findings: Right Pressure (mm Hg) MARGIE Waveform TBI Brachial Artery 138 Common Femoral Artery [place]-Biphasic Popliteal Artery [place]-Biphasic Dorsalis Pedis (Ankle) Artery 62 0.43 [place]-Biphasic Posterior Tibial (Ankle) Artery 62 0.43 [place]-Biphasic Great Toe 51 0.36 Left Pressure (mm Hg) MARGIE Waveform TBI Brachial Artery 143 Common Femoral Artery Monophasic Popliteal Artery Monophasic Dorsalis Pedis (Ankle) Artery 20 0.14 Monophasic Posterior Tibial (Ankle) Artery 22 0.15 Monophasic Great Toe 0 0.00 Interpretation: RIGHT: Moderately severe lower extremity arterial occlusive disease. Toe-brachial index indicates presence of moderate arterial occlusive disease in the foot. 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 LEFT: Severe lower extremity arterial occlusive disease. Toe waveform is absent. 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 NOTE: Hypertension is present based on Doppler derived systolic brachial blood pressure. CTA 02/04/24: FINDINGS: VASCULAR Heart: Normal size. No pericardial [...] fracture. Diffuse patchy lucent and sclerotic marrow. IMPRESSION 1. Mild atherosclerosis. No aortic aneurysm or dissection. 2. Diffusely abnormal appearing consistent with history of mastocytosis Assessment and Plan: Ashley Grayson is a 63 y.o. female with a past medical history of aortoiliac disease with lifestyle limiting claudication status post aortobifemoral bypass ([facility], 2013) neurogenic thoracic outlet syndrome status post first rib resection and scalenectomy ([facility]), and systemic mastocytosis who has recently developed bacterial metatarsalgia and left lower extremity critical limb ischemia in the setting of a newly occluded left limb of aortobifemoral bypass. The etiology of the occlusion is unclear however this may be due to progression of lower brule atherosclerotic disease, failure to be on best medicaltherapy, or potentially hypercoagulable in the setting of her inflammatory condition. Regardless her exam is reassuring as she has no evidence of acute limb ischemia, and her CLI presentation is mostconsistent with nocturnal metatarsalgia which is not particular bothersome or limiting to the patient. 02/05/24: Cardiology, hematology (oncology) and respiratory therapy to see patient today to help with risk stratification, appreciate recommendations. NOAC screen $260 personal insurance, $75 through [employer], which patient is amenable to. Plan: - Admit Vascular Surgery, floor status - Repeat EKG --> done SR with PVC, RBB - CTA chest --> done, see above - Pulmonology consult --> to see patient 02/04, recs pending - Respiratory consult for risk stratification given smoking/COPD--> complete 02/05/24, see FS - Cardiology consult for risk stratification given occlusive disease--> done, TTE results pending. No further recs - Hematology consult for risk stratification given mastocytosis and discussion regarding the safetyof antiplatelet and anticoagulation with this condition, as well as the prognosis of this condition--> done, recs pending Start antiplatelet and anticoagulation tonight pending recs - Regular diet - NOAC screen - $75 through [employer]. Patient is OK with this cost. Dispo: Floor, Attempt Cardiopulmonary Resuscitation - Inpatient Anticoagulation: SQH TID Antiplatelet: pending per Heme recs Mikki Damon APRN 02/05/2024 Pager: [phone] * Oscar Yuan, RT - 02/05/2024 9:59 AM EDT Bedside PFT Patient performed maneuvers well while sitting upright in bed. No significant SOB or WOB noted on RA. Maneuver #4 was the best effort given. No breathing treatments were administered, per patients chart. RT Karuna documented in this encounter H&P Notes * Matt Dias MD - 02/04/2024 7:07 PM EDT Vascular Surgery History and Physical HPI: Ashley Grayson is a 63 y.o. female with a past medical history of aortoiliac disease with lifestyle limiting claudication status post aortobifemoral bypass ([facility], 2012) neurogenic thoracic outlet syndrome status post first rib resection and scalenectomy ([facility]), and systemic mastocytosis who presented to the emergency department for evaluation of left foot pain at night beginning on 01/30. Patient reports that she was in her usual state of health on 01/30 when she was folding laundry at home when she started noticing pain in her calf which changed to pain in her left forefoot at night while resting. She noted that she felt like something was off however was not sure what to make of it. She is currently getting worked up for systemic mastocytosis and was [facility] and described her symptoms in the urged her to present to the emergency room for evaluation. Of note she has had no issues with ambulation, motor loss, or sensation deficits of her left foot or leg. She abstains from smoking and quit in 2012 after her aortobifemoral bypass. She has not been on antiplatelet therapy or statin therapy for roughly 3 years as there was concernthis was potentially implicated in side effects that were later discovered to be potentially her inflammatory condition. She had a prior CT scan for surveillance of this condition in August 2023 that noted a occluded right limb of aortobifemoral bypass however she has been entirely asymptomatic from this. In fact she was not necessarily told about it and did not have vascular surgery follow-up for it. She has intermittently seen her vascular surgeons at [facility] for care and was told she did not need to be seen in their clinic anymore a few years ago. 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 Her foot pain has not limited her ability to workor require extensive pain control at home. Has no personal history of cancer, no family history of vascular disease, and a few members on the maternal side of her family had uterine cancer. Past surgical history is significant for her aortobifemoral bypass, first rib resection/scalenectomy, laparoscopic cholecystectomy, open appendectomy, Pfannenstiel incision hysterectomy Active Hospital Problems Diagnosis Left leg pain Resolved Hospital Problems No resolved problems to display. Active Non-Hospital Problems Diagnosis Back pain Right leg pain Anticoagulation: none Antiplatelet:none Review of Systems: A full review encompassing at least 10 organ systems including general, neuro, pulm, cardiac, GI, , MSK, Endo, and Psych was negative other than listed in the HPI. Past Medical History: Past Medical History: Diagnosis Date Back pain 10/27/2011 Right leg pain 10/27/2011 Past Surgical History: Past Surgical History: Procedure Laterality Date CT GUIDED BIOPSY BONE(EXTREMITIES/PELVIS) 10/15/2023 CT Guided Biopsy Bone (Extremities/Pelvis) 10/15/2023 Charissa Alcala MD [facility] RAD CT SCAN PRO DIAGNOSTIC BONE MARROW BIOPSIES & ASPIRATIONS N/A 12/15/2023 ([facility]) BONE MARROW BIOPSY AND ASPIRATION; DIAGNOSTIC (WRVU 1.44) performed by Bismark Degroot MD at [facility] OSC Functional Status: Lives at home, Works, Drives car, Does own shopping Social Hx: Social History Socioeconomic History Marital status: Spouse [...] since quittin.8 Smokeless tobacco: Never Tobacco comments: 3/4TH PK A DAY Substance and Sexual Activity Alcohol use: No Drug use: No Sexual activity: Not on file Other Topics Concern Not on file Social History Narrative Not on file Social Determinants of Health Financial Resource Strain: Not on file Food Insecurity: Not on file Transportation Needs: Not on file Physical Activity: Not on file Intimate Partner Violence: Not At Risk (02/04/2024) IPV Inpatient Questions Prevent Contact with Others: no Feels Threatened by Someone: no Feels Unsafe at Home: no Physical Signs of Abuse Present: no Housing Stability: Not on file Family Hx: No family history on file. Medications: No current facility-administered medications on file prior to encounter. Current Outpatient Medications on File Prior to Encounter Medication Sig Dispense Refill acetaminophen (Tylenol) 500 mg tablet Take 1,000 mg by mouth every 6 hours as needed for Pain (generally takes 1000mg daily in am.). cetirizine (ZyrTEC) 10 mg tablet Take 1 tablet by mouth daily. Indications: Systemic Mastocytosis 30 tablet 3 famotidine (Pepcid) 20 mg tablet Take 1 tablet by mouth 2 times daily. Indications: Systemic Mastocytosis 30 tablet 3 montelukast (Singulair) 5 mg chewable tablet Take 1 tablet by mouth nightly. 30 tablet 3 EPINEPHrine 0.3 mg/0.3 mL Auto-Injector Inject 0.3 mL IM once as needed for allergic reaction (Throat tight, difficulty breathing). Call 911 as directed. 1 kit 11 Allergies: Allergies Allergen Reactions Percocet [Oxycodone-Acetaminophen] Nausea And Vomiting Ciprofloxacin Other (See Comments) Burning with IV administration, needed benadryl Ibuprofen Hives Morphine Sulfate Nausea And Vomiting Nsaids (Non-Steroidal Anti-Inflammatory Drug) Hives Physical Exam: Vital Signs: Temp: [36.3 ??C (97.3 ??F)] Heart Rate: [106] Resp: [16] BP: (133)/(73) SpO2: [95 %] Heart Rate from SpO2: -- BMI: Weight: 56.2 kg (124 lb) BMI (Calculated): 21.96 BMI Classification: Normal Weight General: no acute distress, conversant HEENT: Normocephalic, atraumatic NECK: Supple, no masses, trachea midline CV: Normal rate, regular rhythm RESP: NWOB on RA GI: Soft, NT/ND, no palpable abdominal mass, midline and lower abd incisions well healed EXT: wwp, no evidence of lower extremity edema or wounds, no rubor in her feet NEURO: No gross focal deficits VASC: Bilateral monophasic DP/PT signals, multiphasic signals in both groins however not palpable Labs: Recent Labs 02/04/24 1439 WBC 9.40 HGB 14.9 HCT 44.6 PLATELET 266 Recent Labs 02/04/24 1439 NA 140 K 3.8 CL 104 CO2 24 BUN 7* CREATININE 0.74 CALCIUM 9.5 Studies/Imaging: ABIs Findings: Right Pressure (mm Hg) MARGIE Waveform TBI Brachial Artery 138 Common Femoral Artery [place]-Biphasic Popliteal Artery [place]-Biphasic Dorsalis Pedis (Ankle) Artery 62 0.43 [place]-Biphasic Posterior Tibial (Ankle) Artery 62 0.43 [place]-Biphasic Great Toe 51 0.36 Left Pressure (mm Hg) MARGIE Waveform TBI Brachial Artery 143 Common Femoral Artery Monophasic Popliteal Artery Monophasic Dorsalis Pedis (Ankle) Artery 20 0.14 Monophasic Posterior Tibial (Ankle) Artery 22 0.15 Monophasic Great Toe 0 0.00 Interpretation: RIGHT: Moderately severe lower extremity arterial occlusive disease. Toe-brachial index indicates presence of moderate arterial occlusive disease in the foot. 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 LEFT: Severe lower extremity arterial occlusive disease. Toe waveform is absent. 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 NOTE: Hypertension is present based on Doppler derived systolic brachial blood pressure. Comparison: No previous study in our vascular lab database for comparison. Notification: Dr. Matt Dias was informed of these preliminary findings. Results for orders placed or performed during the hospital encounter of 02/04/24 CT Angiogram Aortic Lower Extremity Runoff (Exam End: 02/04/2024 3:51 PM) Result Value WORKSTATION ID [id number] Impression 1. Status post aortobiiliac bypass. 2. Unchanged occlusion of the lower brule aorta immediately inferior to the inferior mesenteric artery. 3. 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 Interval occlusion of the left bypass limb. 4. Reconstitution of the femoral vasculature bilaterally via collaterals. Otherwise, widely patent three-vessel runoff of the bilateral lower extremity. 5. 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 Per ACR white paper guidelines, follow-up MRI of the abdomen is recommended in one year. 6. Diffuse heterogeneity of osseous structures with increased sclerosis. Diffuse metastatic disease can be considered. Alternatively, other etiologies including renal osteodystrophy or other metabolic etiologies can be considered. Thank you for letting us participate in the care of this patient. If you are a health care provider and have any questions regarding this report, please contact the number below. For patients who have questions please contact the health farm or ranch animal caretaker that requested your imaging first. Electronically signed by: Jeanna Fernandes DO, [facility] ([phone]), at 02/04/2024 4:[address] Angiogram Chest (Non-Coronary) w Contrast (Exam End: 02/04/2024 6:45 PM) Result Value WORKSTATION ID [id number] Impression 1. Mild atherosclerosis. No aortic aneurysm or dissection. 2. Diffusely abnormal appearing consistent with history of mastocytosis Thank you for letting us participate in the care of this patient. If you are a health care provider and have any questions regarding this report, please contact the number below. For patients who have questions please contact the health farm or ranch animal caretaker that requested your imaging first. Electronically signed by: Charissa Alcala MD, [facility] ([phone]), at 02/04/2024 7:00 PM Assessment and Plan: Ashley Grayson is a 63 y.o. female with a past medical history of aortoiliac disease with lifestyle limiting claudication status post aortobifemoral bypass ([facility], 2013) neurogenic thoracic outlet syndrome status post first rib resection and scalenectomy ([facility]), and systemic mastocytosis who has recently developed bacterial metatarsalgia and left lower extremity critical limb ischemia in the setting of a newly occluded left limb of aortobifemoral bypass. The etiology of the occlusion is unclear however this may be due to progression of lower brule atherosclerotic disease, failure to be on best medicaltherapy, or potentially hypercoagulable in the setting of her inflammatory condition. Regardless her exam is reassuring as she has no evidence of acute limb ischemia, and her CLI presentation is mostconsistent with nocturnal metatarsalgia which is not particular bothersome or limiting to the patient. Will complete workup as below Plan - Admit - Repeat EKG - CTA chest - Hematology consult for evaluation of systemic mastocytosis and discussion regarding the safety ofantiplatelet and anticoagulation with this condition, as well as the prognosis of this condition Start antiplatelet and anticoagulation tonight pending recs - Regular diet Dispo: Floor, Attempt Cardiopulmonary Resuscitation - Inpatient Matt Dias MD 02/04/2024 Pager: [phone] documented in this encounter ED Notes * Ewa Johns LPN - 02/04/2024 6:36 PM EDT Called dinner to kitchen * Kyaw Iqbal PA - 02/04/2024 2:42 PM EDT ED Provider Note HPI: Ashley Grayson is a 63 y.o. female with history of systemic mastocytosis, thoracic outlet syndrome, and aortobifemoral bypass surgery in 2013 thoracic outlet syndrome, who presents to the Emergency Department with left lower extremity pain that starts in her low back and goes down to her foot. She re ports that she has to sleep with her foot hanging down because when she lifts it up on the bed it gets cold and numb. She was concerned that maybe she had some back pain that could be causing her symptoms however denies any trauma to her back. She reports that the symptoms feel different than when she needed to have her aortobifemoral bypass surgery in 2013. She does report that her symptoms are worse when she ambulates. She denies any chest pain or shortness of breath. She contacted her chronometer repairer who she follows up with regularly here and they recommended she come to the ED for evaluationfor workup of her peripheral arterial disease. ROS as per HPI Vitals: ED Triage Vitals [02/04/24 1416] BP: 133/73 Heart Rate: (!) 106 Resp: 16 Temp: 36.3 ??C (97.3 ??F) Temp src: Temporal SpO2: 95 % O2 Device: n/a O2 Flow Rate (L/min): n/a Physical Exam Constitutional: Appearance: She is well-developed. HENT: Head: Normocephalic. Eyes: Pupils: Pupils are equal, round, and reactive to light. Cardiovascular: Rate and Rhythm: Normal rate and regular rhythm. Comments: Distal pulses palpated in the left foot. Brisk capillary refill in the toes. The foot is warm and well-perfused. Significant left calf tenderness with palpation. No appreciable swelling. 5 out of 5 strength at the hips, knees, and ankles. Pulmonary: Effort: Pulmonary effort is normal. Musculoskeletal: Cervical back: Neck supple. Skin: General: Skin is warm and dry. Capillary Refill: Capillary refill takes less than 2 seconds. Neurological: General: No focal deficit present. Mental Status: She is alert and oriented to person, place, and time. Psychiatric: Mood and Affect: Mood normal. CT Angiogram Chest (Non-Coronary) w Contrast Final Result 1. Mild atherosclerosis. No aortic aneurysm or dissection. 2. Diffusely abnormal appearing consistent with history of mastocytosis Thank you for letting us participate in the care of this patient. If you are a health care provider and have any questions regarding this report, please contact the number below. For patients who have questions please contact the health farm or ranch animal caretaker that requested your imaging first. Electronically signed by: Charissa Alcala MD, [facility] ([phone]), at 02/04/2024 7:[address] Angiogram Aortic Lower Extremity Runoff Final Result 1. Status post aortobiiliac bypass. 2. Unchanged occlusion of the lower brule aorta immediately inferior to the inferior mesenteric artery. 3. 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 Interval occlusion of the left bypass limb. 4. Reconstitution of the femoral vasculature bilaterally via collaterals. Otherwise, widely patent three-vessel runoff of the bilateral lower extremity. 5. 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 Per ACR white paper guidelines, follow-up MRI of the abdomen is recommended in one year. 6. Diffuse heterogeneity of osseous structures with increased sclerosis. Diffuse metastatic disease can be considered. Alternatively, other etiologies including renal osteodystrophy or other metabolic etiologies can be considered. Thank you for letting us participate in the care of this patient. If you are a health care provider and have any questions regarding this report, please contact the number below. For patients who have questions please contact the health farm or ranch animal caretaker that requested your imaging first. Electronically signed by: Jeanna Fernandes DO, [facility] ([phone]), at 02/04/2024 4:[address] Angiogram Chest (Non-Coronary) w Contrast Final Result 1. Mild atherosclerosis. No aortic aneurysm or dissection. 2. Diffusely abnormal appearing consistent with history of mastocytosis Thank you for letting us participate in the care of this patient. If you are a health care provider and have any questions regarding this report, please contact the number below. For patients who have questions please contact the health farm or ranch animal caretaker that requested your imaging first. Electronically signed by: Charissa Alcala MD, [facility] ([phone]), at 02/04/2024 7:[address] Angiogram Aortic Lower Extremity Runoff Final Result 1. Status post aortobiiliac bypass. 2. Unchanged occlusion of the lower brule aorta immediately inferior to the inferior mesenteric artery. 3. 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 Interval occlusion of the left bypass limb. 4. Reconstitution of the femoral vasculature bilaterally via collaterals. Otherwise, widely patent three-vessel runoff of the bilateral lower extremity. 5. 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 Per ACR white paper guidelines, follow-up MRI of the abdomen is recommended in one year. 6. Diffuse heterogeneity of osseous structures with increased sclerosis. Diffuse metastatic disease can be considered. Alternatively, other etiologies including renal osteodystrophy or other metabolic etiologies can be considered. Thank you for letting us participate in the care of this patient. If you are a health care provider and have any questions regarding this report, please contact the number below. For patients who have questions please contact the health farm or ranch animal caretaker that requested your imaging first. Electronically signed by: Jeanna Fernandes DO, [facility] ([phone]), at 02/04/2024 4:09 PM Procedures Assessment and Plan: 63 y.o. female with history of mastocytosis, thoracic outlet syndrome, peripheral arterial disease,status post aortobifemoral bypass surgery in 2012 who presents to the Emergency Department with worsening left calf tenderness, and a numb cold foot when she keeps it elevated or flat on her bed. Reports the symptoms have been ongoing for a while however much worse over the last 6 days. She reportsthat her left foot gets numb and tingly unless she has her legs dangling over the bed or while she is sitting in a chair. She contacted her chronometer repairer regarding her symptoms and was recommended shecome to the ED for evaluation. On arrival here she is in no acute distress. She has palpable dorsalis pedis and posterior tibialis pulses on the left foot. Her foot is warm and well-perfused. She does have significant left calf tenderness and does report increasing claudication over the last 6 days. Plan will be to evaluate her for DVT given her significant calf tenderness as well as get a CTA aorta with lower extremity runoff looking for evidence of an arterial thromboembolism. CTA shows an occlusion of her left aortobifemoral bypass graft. Have contacted vascular surgery andthey have come down to evaluate her. I do not feel that there is any acute surgical intervention however given her mastocytosis and acute pain with laying flat they will admit to their service for further management. I have also reached out to hematology per vascular surgery's request to get recommendations regarding starting her on aspirin and a DOAC given her mastocytosis. She has remained stable during her time in the ED. Did this case involve critical care? No The visit findings, diagnosis, and care plan were discussed with the patient. Kyaw Iqbal PA 02/04/241925 * Tracy Torres RN - 02/04/2024 12:52 PM EDT Tele ED phone note: from NEYDA Flores research nurse in heme onc clinic referring this pt. To ED for c/o L calf and thigh pain and cramping and c/o L cold foot. Pt. Is being evaluated for systemic mastocytosis by Dr. Truong see their notes for more information. documented in this encounter Miscellaneous Notes * Consult Note - Juan M Mckeon MD - 02/05/2024 5:36 PM EDT Images from the original note were not included. PULMONARY AND CRITICAL CARE MEDICINE PATIENT NAME: Ashley Grayson : 1960 MEDICAL RECORD: [id number] DATE OF SERVICE: 02/05/2024 Hospital Day #: Hospital Day: 2 Location: [address] Requesting Provider: No att. providers found INITIAL PULMONOLOGY CONSULTATION NOTE Reason for Consultation: Pre-operative risk assessment and optimization History of present illness: Patient is a 63 y.o. former smoker with PMHx aortoiliac disease s/o aortobifemoral bypass 2012, systemic mastocytosis, neurogenic thoracic outlet syndrome s/p 1st rib resection and scalenectomy presenting with worsening LLE pain. Admitted to the vascular surgery service for surgical planning after the left limb of her prior bypass was noted to be occluded. The right limb of her prior bypass was known to be occluded since August, and she is asymptomatic from this. She denies any shortness of breath, dyspnea on exertion, chest tightness, wheezing, fevers, or chills. No chest pain. She is able to climb two flights of stairs without developing shortness of breath. Has never been hospitalized for a breathing related issue. Denies prior chronic lung disease diagnoses. Did have Covid x4, on first two occasions with SOB and productive cough but did not need hospitalization. Had Flu in April, mainly GI sxs and body aches. No family history of chronic lung conditions such as asthma, COPD, lung cancer. 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 She also notes that she helped to tear sheet rock and insulation out of an apartment in the late 80s, but this was a one-time experience. Currently lives in apartment for about 6 years with oil heating, before that lived in another apartment for about 6 years with wood pellet heating. Has a dog at home but denies any close exposure to birds pigeons ducks geese. STOP-BANG = 1 with answers validated by her (low risk for mod-severe SARAY) Review of Systems: Review of Systems Constitutional: Negative for chills, fever and malaise/fatigue. HENT: Negative for congestion, sinus pain and sore throat. Respiratory: Negative for cough, hemoptysis, sputum production, shortness of breath and wheezing. Cardiovascular: Negative for chest pain. Pertinent Past Medical/Surgical/Family/Social History: Medical, surgical, social and family hx reviewed, with pertinent details discussed in assessment and plan. Allergies: Allergies Allergen Reactions Percocet [Oxycodone-Acetaminophen] Nausea And Vomiting Ciprofloxacin Other (See Comments) Burning with IV administration, needed benadryl Ibuprofen Hives Morphine Sulfate Nausea And Vomiting Nsaids (Non-Steroidal Anti-Inflammatory Drug) Hives Medications: Scheduled Meds: acetaminophen 975 mg Oral Q6H JENNIFER senna-docusate 2 tablet Oral BID polyethylene glycoL (MIRALAX) oral powder 17 g Oral Daily Continuous Infusions: heparin (porcine) infusion Stopped (02/05/24 1715) PRN Meds: polyethylene glycoL (MIRALAX) oral powder AND bisacodyL AND bisacodyL EC AND lactulose AND lactulose AND magnesium citrate AND Tap water enema, heparin (porcine) infusion AND heparin (porcine) Objective: Last value Range last 24 hrs Temperature Temp: 36.3 ??C (97.3 ??F) Temp: [36.3 ??C (97.3 ??F)-37.3 ??C (99.1 ??F)] Heart Rate Heart Rate: 66 Heart Rate: [66-79] Blood Pressure BP: 121/59 BP: (114-126)/(55-62) Respiratory Rate Resp: 16 Resp: [16-17] SpO2 SpO2: 95 % SpO2: [93 %-95 %] Admit Weight Physical Exam Constitutional: General: She is not in acute distress. Appearance: Normal appearance. She is not toxic-appearing. Cardiovascular: Rate and Rhythm: Normal rate. Heart sounds: No murmur heard. Pulmonary: Breath sounds: No wheezing, rhonchi or rales. Abdominal: General: Bowel sounds are normal. Palpations: Abdomen is soft. Musculoskeletal: Right lower leg: No edema. Left lower leg: No edema. Skin: General: Skin is warm and dry. Neurological: Mental Status: She is alert and oriented to person, place, and time. Pertinent Diagnostics: Labs: Data reviewed in EMR per timestamp. Most notable for: CBC and CMP wnl (Bicarb 24) Bedside spirometry 02/05/2024: FVC 1.93 L, 65% FEV1 1.52 L, 66% Ratio 79% wnl NIF -50 cm H20 (02/05/2024) Imaging CTA Chest 02/03 Mild dependent atelectasis and small subpleural blebs at the apices. Pleura: No effusion or pneumothorax. Assessment: Ashley Grayson is a 63 y.o. female former smoker with PMHx aortoiliac disease s/o aortobifemoral bypass 2013, systemic mastocytosis, neurogenic thoracic outlet syndrome s/p 1st rib resection and scalenectomy presenting with worsening LLE pain found with new occlusion of the left limb of her prior bypass. She had emphysematous changes on her CT scan but no clear evidence of airflow obstruction on PFTs, and no appreciable respiratory symptom burden or exercise impairment from her radiographic findings. She appears to have restrictive physiology vs air trapping based on bedside spirometry (thoughno significant air trapping was noted on her CT scans). Her NIF of -50 and lack of unilateral diaphragmatic elevation is reassuring against neuromuscular respiratory weakness given her scalenectomy in the past. Recommendations: Using the ARISCAT risk idex, the patient has an intermediate-high risk of pulmonary complications postoperatively (risk level varies with surgical parameters such as incision site and duration). No other modifiable risk factors were identified. To optimize her pulmonary status, would recommend: 1. Minimize duration under anesthesia as much as able 2. Early mobilization post operatively 3. Deep breathing, incentive spirometry, and aggressive pulmonary toilet 4. Scheduled duonebs while awake in the perioperative period 5. Early DVT prophylaxis as able Tiarra J, Carl L, Nguyen C, et. al. Prediction of postoperative pulmonary complications in a population-based surgical cohort. Anesthesiology. 2010 Mar;113(6):1338-50. No indications for pulmonary rehab, or controller inhaler medications at this time. Non-urgent respiratory vaccines (covid, flu, rsv, pneumococcal) discussed with patient. She can follow up with pulmonology PRN as an outpatient. Thank you for this consult, we will sign off at this time. Juna M Mckeon MD Pulmonary/Critical Care Fellow, PGY-4 02/05/2024 5:50 PM Associated attestation - Jessica Jaramillo MD - 02/05/2024 6:58 PM EDT I have seen and examined the patient, and Dr. Mckeon and I have formulated an assessment and plan together. I have reviewed and agree with the note by Dr. Mckeon. Briefly, 63 yo woman with systemic mastocytosis/MDS on clinical trial with 20 pack year smoking (quit 2012) with aortoiliac disease s/p aortobifem bypass 2012, here with left limb ischemia, planned for revascularization. We are consulted for pulmonary perioperative evaluation. 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 Spirometry shows FVC 65% and FEV1 66% with normal ratio. She does have some apical and subpleural blebs and mild air trapping on CT 02/04/24 and I suspect restrictive pattern on PFTs is consistent with reduced measured FVC because of air trapping. She does have a history of 1st rib and scalene resection for thoracic outlet syndrome which could potentially cause respiratory weakness, however NIF here today is respectable. Agree with perioperative recommendations by Dr. Mckeon below. Jessica Jaramillo MD Staff Physician Pulmonary and Critical Care Medicine 6:44 PM 02/05/2024 * Initial Assessments - Eunice Rob RN - 02/05/2024 2:20 PM EDT Office of Care Management Initial Assessment Eunice Rob RN reviewed record and discussed patient with Care Team. Source of Information: Team, medical record, and Patient, Spouse, Chart Review Introduced self/reviewed role; services accepted. Admitted From: Home Reason for Hospitalization: eval / assess L calf pain Past medical History: Past Medical History: Diagnosis Date Back pain 10/27/2011 Right leg pain 10/27/2011 Hospitalizations Within the Past 30 Days: no previous admission in last 30 days Current Decision-Making Capacity: Self If AD's have not been completed the following surrogate would be surrogate decision maker per [place] surrogate decision making law. (Only good for 180 days) Any patient receiving care in [place] must abide by [place] law. The hierarchy for surrogate decision making is: (a) Patient???s spouse or civil union partner unless there is a divorce proceeding, separation agreement, or restraining order limiting that person???s relationship with the patient.pts , Karthik (b) Any adult son or daughter of the patient. (c) Either parent of the patient. (d) Any adult brother or sister of the patient. (e) Any adult grandchild of the patient. (f) Any grandparent of the patient. (g) Any adult aunt, uncle, niece, or nephew of the patient. (h) A close friend of the patient. (i) The agent with financial power of transactional attorney or a conservator appointed in accordance with RSA 464-A. (j) The guardian of the patient???s estate. Advance Care Planning: Attempt Cardiopulmonary Resuscitation - Inpatient <no information> -Advanced Directive: No, need to discuss (pt agrees to complete ADs. placed on RS AD list) Current Coping/Education/Information Needs: pt reports coping ok with health situation/ hospitalization Current Functional Ability: Independent Functional Status Prior to Admission: Independent Prior ADLs & IADLs: Independent with all ADLs & IADLs Home Environment: Others in the home: spouse. Current Living Arrangements: home/apartment/condo. Accessibility Concerns:3 steps to enter 1 floor home. In the last 12 months, was there a time when you were not able to pay the mortgage or rent on time?: No In the past 12 months, how many times have you moved where you were living?: 0 At any time in the past 12 months, were you homeless or living in a retirement (including now)?: No In the past 12 months has the [employer], or [employer] threatened to shut off services in your [...] medical appointments or from getting medications?: No In the past 12 months, has lack of transportation kept you from meetings, work, or from getting things needed for daily living?: No Current DME: none Home Address confirmed as: [address] [place] [id number] Social & Family Supports: All names listed [...] being provided currently: none Behavioral Health History: pt denies any mental health/emotional concerns Substance Use/Abuse listed: Social History Tobacco Use Smoking Status Former Current packs/day: 0.00 Average packs/day: 1 pack/day for 30.0 years (30.0 ttl pk-yrs) Types: Cigarettes Quit date: 2012 Years since quittin.8 Smokeless Tobacco Never Tobacco Comments 3/ PK A DAY 0 No problems reported 1-2 Low level 3-5 Moderate level 6-8 Substantial level 9- 10 Severe level 0 to 7 points: Low risk 8 to 15 points: Medium risk 16 to 19 points: High risk 20 to 40 points: Addiction likely Other Pertinent/Service Specific Information: none noted Health/Prescription Coverage: Primary Insurance: [employer] Payor: [employer] [place] / Plan: [employer] [place] / Product Type: *No Product type* / Secondary Insurance: N/A ; Prescription Coverage: Yes Preferred Pharmacy: [place], [place] Status: Patient is a : No Primary Care Provider confirmed: Estrella Mckay, PARAM [phone] Patient/Caregiver Goals of Treatment: dc to home Potential Needs for Transition of Care: none Agency Referrals: Not Applicable Transportation: no concerns Transportation Anticipated: family or friend will provide Concerns to be Addressed: discharge planning Assessment: Patient is admitted to vascular surgery service for 63 y.o. female with a past medicalhistory of aortoiliac disease with lifestyle limiting claudication status post aortobifemoral bypass (UV, 2012) neurogenic thoracic outlet syndrome status post first rib resection and scalenectomy (UV), and systemic mastocytosis who has recently developed bacterial metatarsalgia and left lower extremity critical limb ischemia in the setting of a newly occluded left limb of aortobifemoral bypass. The etiology of the occlusion is unclear however this may be due to progression of lower brule atherosclerotic disease, failure to be on best medical therapy, or potentially hypercoagulable in the setting of her inflammatory condition, 02/05/24: Cardiology, hematology (oncology) and respiratory therapy to see patient today Pt lives in home with her , Karthik. She reports being indep with all at baseline: ADLs, IADLs, ambulation, driving. She states good support/assist for any needs that she may have at discharge from her . Pt has supports in place to access the necessary care and or follow up after discharge Plan going forward: dc to home Care Management team will continue to follow and assist with discharge planing and coordination of care as indicated. Eunice Rob RN CM, BSN, CMGT-BC * Consult Note - Polina Hardin - 02/05/2024 8:42 AM EDT CARDIOLOGY CONSULT NOTE Patient Name: Ashley Grayson Service: Vascular Surgery Team Responsible Attending: Jeanna Carreon MD PCP: Estrella Mckay APRN PCP phone #: [phone] ID/Chief Complaint: Ashley Grayson is a 63 y.o. female with a past medical history of aortoiliac disease s/p aortobifemoral bypass, neurogenic thoracic outlet syndrome s/p first rib resection and scalenectomy, and systemic mastocytosis who presented with left lower extremity critical limb ischemia in the setting of a newly occluded left limb of aortobifemoral bypass. Cardiology consulted for preoperative risk stratification. Medical Co-morbidities: Systemic mastocytosis Aortoiliac disease s/p aortobifemoral bypass Neurogenic thoracic outlet syndrome s/p first rib resection and scalenectomy History of tobacco use History of Present Illness: Ashley is a 63 year old female with a history of aortoiliac disease s/p aortobifemoral bypass in 2012 who is now presenting with left lower extremity critical limb ischemia in the setting of a newly occluded left limb of aortobifemoral bypass. Cardiology consulted for risk stratification pending inte rvention for her CLI. CT angiogram of chest revealed mild atherosclerosis, no aortic aneurysm or dissection. EKG performed during stay revealed sinus rhythm with PVCs and right bundle branch block. TTE pending. 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 At home, she is functional and independent. Denies chest pain, chest tightness, pain in left arm or jaw, indigestion, lower extremity swelling, PATHAK, or orthopnea. Endorses lower a bdominal pain but no burning epigastric pain. Ashley quit smoking in 2012. Reports that both her maternal grandparents suffered from coronary artery disease. Overnight she desaturated to 88 on RA and required 1L NC. She does not use home O2 and has ever been diagnosed with COPD. Planned/pending surgeries: revascularization of newly occluded left limb of aortobifemoral bypass Meds: Current Facility-Administered Medications: acetaminophen (Tylenol) tablet 975 mg, 975 mg, Oral, Q6H JENNIFER, Gian Robertson MD, 975 mg at 02/05/24 0541 senna-docusate (Pericolace) 8.6-50 mg per tablet 2 tablet, 2 tablet, Oral, BID, Gian Robertson MD, 2 tablet at 02/04/24 2331 polyethylene glycoL (Miralax) packet 17 g, 17 g, Oral, Daily PRN AND bisacodyL (Dulcolax) suppository 10 mg, 10 mg, Rectal, Daily PRN AND bisacodyL EC (Dulcolax) tablet 10 mg, 10 mg, Oral, BID PRN AND lactulose (Chronulac) (0.67 gram/mL) oral liquid 20 g, 20 g, Oral, Daily PRN AND la ctulose (Chronulac) (0.67 gram/mL) oral liquid 20 g, 20 g, Oral, Daily PRN AND magnesium citrate oral liquid 296 mL, 296 mL, Oral, Once PRN AND Tap water enema, , , Daily PRN, Gian Robertson MD polyethylene glycoL (Miralax) packet 17 g, 17 g, Oral, Daily, Gian Robertson MD heparin (porcine) 50 units/mL in dextrose 5% 500 mL infusion, 0-5,000 Units/hr, Intravenous, Continuous, Last Rate: 20 mL/hr at 02/04/242326, 1,000 Units/hr at 02/04/242326 AND heparin (porcine) (1,000 units/mL) injection 0-8,000 Units, 0-8,000 Units, Intravenous, BOLUS HEPARIN Ailyn GARCIA Zachary R, MD Allergies: Allergies Allergen Reactions Percocet [Oxycodone-Acetaminophen] Nausea And Vomiting Ciprofloxacin Other (See Comments) Burning with IV administration, needed benadryl Ibuprofen Hives Morphine Sulfate Nausea And Vomiting Nsaids (Non-Steroidal Anti-Inflammatory Drug) Hives Vitals: Last value Range last 24 hrs Temperature Temp: 37.1 ??C (98.8 ??F) Temp: [36.3 ??C (97.3 ??F)-37.3 ??C (99.1 ??F)] Heart Rate Heart Rate: 79 Heart Rate: [79-106] Blood Pressure BP: 121/59 BP: (114-133)/(55-73) Respiratory Rate Resp: 17 Resp: [16-17] SpO2 SpO2: 95 % SpO2: [93 %-95 %] Examination: General - No acute distress. Well-groomed/nourished. Speech is normal HEENT - EOMI. No scleral icterus. Noninjected. Moist membranes. Respiratory: Clear to auscultation bilaterally. Good effort/excursion. Cardiac - RRR, normal S1/S2, no audible murmur, gallop or rubs. No JVD. No BRE. Abdomen - Soft, nontender/nondistended Extremities - Warm. No clubbing or cyanosis. Radial Pulses: 2+ B/l Neuro - Limited exam. No deficits. Laboratory: CBC: Recent Labs 02/05/24 0539 02/04/24 2324 02/04/249 WBC 7.36 8.61 9.40 HGB 14.1 13.7 14.9 PLATELET 228 238 266 Chemistry: Recent Labs 02/04/24 1439 01/28/24 0919 11/25/23 0719 NA 140 141 140 K 3.8 4.1 4.4 CL 104 105 104 CO2 24 25 23 BUN 7* 7* 7* CREATININE 0.74 0.79 0.72 GLUCOSE 77 98 83 Recent Labs 02/04/24 1439 01/28/24 0919 11/25/23 0719 CALCIUM 9.5 9.3 9.9 MAGNESIUM -- 1.04 -- PHOS -- 3.8 -- LFT's: Recent Labs 02/04/24 1439 01/28/24 0919 11/25/23 0719 BILITOT 0.3 0.2 <0.2 BILIDIR <0.2 -- -- ALBUMIN 4.2 4.1 4.4 ALKPHOS 94 99 104 ALT 18 15 14 AST 13 16 16 Coags: Recent Labs 02/04/24 1439 PT 11.5 INR 1.0 PTT 32 Most Recent TTE 02/05/2024: pending Most Recent Cath None EKG 02/04/2024: Sinus rhythm with Premature supraventricular complexes Right bundle branch block ASSESSMENT: Ashley Grayson is a 63 y.o. female with a past medical history of aortoiliac disease s/p aortobifemoral bypass, neurogenic thoracic outlet syndrome s/p first rib resection and scalenectomy, and systemic mastocytosis with a planned revascularization of newly occluded left limb of aortobifemoral bypass. The patient demonstrated no clinical signs of symptoms indicative of heart disease. Physical examis unremarkable, with normal heart and lung sounds, and no lower extremity edema or +JVD . Vital signs are stable with blood pressure and heart rate within normal limits. EKG shows sinus rhythm with PVCs and RBBB with no ischemic changes. TTE pending. She endorses a good exercise capacity and denies any functional limitations attributed to angina or shortness of breath. She has an extensive smoking history and a family history of CAD. The episode of desaturation overnight and extensive smoking history is concerning for an underlying lung pathology, however she is asymptomatic and CT of chest was not impressive. Overall, patient has a class II preoperative risk. The patient is medically optimized for the proposed procedure, had an acceptable risk profile without additional cardiac testing at this time. PLAN: - No further cardiac testing at this time - No medication changes necessary Polina [facility] Student, MS4 Associated attestation - Clark Dickinson MD - 02/05/2024 3:21 PM EDT I have seen and examined the patient, providing rockwell components as outlined below. I have reviewed the resident???s above note; my evaluation of the patient is below: This is a patient with severe peripheral arterial disease and an occluded left lower extremity withvery severe claudication symptoms. Surgical revascularization is planned. She has an aortobifemoralbypass with an occluded left limb. We are asked to assess for surgical clearance. She has no cardiac history. She denies angina. No history of CHF. Functional capacity is good. She still works full-time in a physically demanding job. She tells me she would be able to climb 2 flights of stairs absent the acute leg issue without very much difficulty. I see no issues present from my standpoint with proceeding with vascular surgery. * ED Triage - Kaur Madrigal RN - 02/04/2024 2:18 PM EDT Pt arrives ambulatory with stable gait. A&Ox4 speaking in full sentences. Pt reports L foot pain and numbness since Thursday. Reports laying flat makes her foot go completely numb. DP and PT pulse palpable. Cap refill slow in [place] foot. Respirations even and non labored. Skin p/w/d. NAD at this time. documented in this encounter Plan of Treatment Upcoming Encounters Date Type Department Care Team (Late st Contact Info) Description 03/02/2024 8:30 AM EST Office [place] [phone] Sarah Bah APRN [facility] [address] [place] [address] 03/04/2024 7:00 AM EST Appointment Mammography/[place] [phone] Edmund Truong MD [facility] DR HEMATOLOGY [place] [address] 03/07/2024 10:45 AM EST Laboratory Appointment Lab at [facility] Hematology Oncology [address] [place] [phone] 03/07/2024 11:30 AM EST Office Visit Hematology and Oncology at [place] [phone] Bennett Turner, RN 03/07/2024 11:30 AM EST Office Visit Hematology and Oncology at [place] [phone] Edmund Truong MD [facility] DR HEMATOLOGY [place] [address] 03/10/2024 8:15 AM EST Laboratory Appointment Lab at [facility] Hematology Oncology [address] [place], [place] [phone] 03/10/2024 8:30 AM EST Scheduled View Only Hematology and Oncology at [address] 03/10/2024 9:00 AM EST Office Visit Hematology and Oncology at [place] [address] Omid Degroot MD [facility] [place] [address] 03/10/2024 9:00 AM EST Office Visit Hematology and Oncology at [place] [phone] Bennett Turner, RN 03/25/2024 9:30 AM EST Tech Visit Vascular Lab at [place] [phone] Carlton Higgins, RVT 03/25/2024 10:15 AM EST Office Visit Vascular Surgery at [place] [phone] Tomy Raymond MD [facility] [address] [place] [address] documented as of this encounter Procedures Procedure Name Priority Date/Time Associated Diagnosis Comments ECHO COMPLETE Routine 02/05/2024 12:29 PM EDT [...] EXTREMITY RUNOFF STAT 02/04/2024 3:51 PM EDT EXTRA TUBES STAT 02/04/2024 2:39 PM EDT BILIRUBIN, DIRECT STAT Add-On 02/04/2024 2:3 9 PM EDT Systemic mastocytosis GOLD TUBE HOLD STAT 02/04/2024 2:39 PM EDT HC PARTIAL THROMBOPLASTIN TIME STAT 02/04/2024 2:39 PM EDT PROTHROMBIN TIME STAT 02/04/2024 2:39 PM EDT CBC (WITH DIFF) STAT 02/04/2024 2:39 PM EDT TYPE AND SCREEN ([facility]) STAT 02/04/2024 2:39 PM EDT COMPREHENSIVE METABOLIC PANEL STAT 02/04/2024 2:39 PM EDT DUPLEX FOR DVT, LEG, UNILAT STAT 02/04/2024 2:32 PM EDT Pain of left calf documented in this encounter Results * ECHO COMPLETE (02/05/2024 12:29 PM EDT) Anatomical Region Laterality Modality Cardiac Other 02/05/2024 10:5 8 AM EDT Narrative 02/05/2024 12:36 PM EDT [address] [place] [address] ? Echocardiogram Report Name: ASHLEY GRAYSON ?Study Date: 02/05/2024 10:58 AMBP: 121/59 mmHg : 1960 ? Height: 160 cm ? Account: [id number] Age: 63 yrs ? Weight: 56 kg Gender: Female ?BSA: 1.6 m2 Ordering Physician: KYM RODRIGUEZ Performed By: SWATHI Villafana Reason For Study: pre op testing, aortoiliac occlusive disease Exam Location: [facility]. Interpretation Summary -Left ventricular systolic function is normal. Left ventricular ejection fraction is estimated visually at 55-60%. There are no segmental wall motion abnormalities. -The right ventricle is of normal size. Right ventricular systolic function is normal. -No significant valvular disease. -No comparison study is available. Procedure Complete-[id number]. Satisfactory quality. Left Ventricle Left ventricle is [...] Ao V2 VTI: 21.5 cm Ao Max Julio: 113.8 cm/sec Ao valve max: 5.2 mmHg Ao valve mean: 2.1 mmHg MV E max julio: 74.4 cm/sec MV A max julio: 79.4 cm/sec MV E/A: 0.94 Lat Peak E' Julio: 5.3 cm/sec E/e' (lat): 14.1 Med Peak E' Julio: 5.7 cm/sec E/e' (med): 13.1 E/e' Average: [...] Note Main Mcclain MD - 02/05/2024 [address] [place] [id number] Echocardiogram Report Name: ASHLEY GRAYSON Study Date: 410:58 AMBP: 121/59 mmHg : 1960 Height: 160 cm Account: [id number] Age: 63 yrs Weight: 56 kg Gender: Female BSA: 1.6 m2 Ordering Physician: KYM RODRIGUEZ Performed By: SWATHI Villafana Reason For Study: pre op testing, aortoiliac occlusive disease Exam Location: [facility]. Interpretation Summary -Left ventricular systolic function is normal. Left ventricular ejectionfraction is estimated visually at 55-60%. There are no segmental wall motionabnormalities. -The right ventricle is of normal size. Right ventricular systolicfunction is normal. -No significant valvular disease. -No comparison study is available. Procedure Complete-[id number]. Satisfactory quality. Left Ventricle Left ventricle is [...] Ao V2 VTI: 21.5 cm Ao Max Julio: 113.8 cm/sec Ao valve max: 5.2 mmHg Ao valve mean: 2.1 mmHg MV E max julio: 74.4 cm/sec MV A max julio: 79.4 cm/sec MV E/A: 0.94 Lat Peak E' Julio: 5.3 cm/sec E/e' (lat): 14.1 Med Peak E' Julio: 5.7 cm/sec E/e' (med): 13.1 E/e' Average: 13.6 [place](I,D): 2.8 cm2 Dimensionless index Aov: 0.91 I WMSI = 1.00 % Normal = 100 SegmentsSize X - Cannot 2 - 4 - 1-2small Interpret 1 - Normal Hypokinetic 3 - Akinetic Dyskinetic 3-5moderate 5 - 6-14large Aneurysmal 15-16diffuse Kym Rodriguez APRN ECHO ORDERABLES * Heparin (unfractionated) Level (02/05/2024 12:04 PM EDT) UF Heparin 0.36 IU/mL 02/05/2024 12:28 PM EDT [facility] Comment: Heparin (anti-Xa) levels should be [...] indications in cardiac surgery): ? 0.1-0.3 IU/mL Blood VENOUS BLOOD SPECIMEN / Unknown Venipuncture / Unknown 02/05/2024 12:04 PM EDT 02/05/2024 12:11 PM EDT Jeanna Carreon MD HEMATOLOGY ORDERABLE S [facility] [place] [place] [address] * Bedside spirometry WITHOUT bronchodialator (02/05/2024 9:40 [...] PFT FEV1/FVC Pre-BD Z-Score 0 COMPAS PFT [id number] Actual Pre-BD 1.49 % COMPAS PFT [id number] Predicted 2.07 % COMPAS PFT [id number] Pre-BD % of Predicted 72 % COMPAS PFT [id number] Pre-BD Z-Score -0.84 COMPAS PFT Narrative COMPAS [...] by measurement of lung volumes. Mikki Damon APRN PFT ORDERABLES COMPAS PFT * Heparin (unfractionated) Level (02/05/2024 5:39 AM EDT) UF Heparin 0.30 IU/mL 02/05/2024 6:02 AM EDT [facility] Comment: Heparin (anti-Xa) levels should be [...] indications in cardiac surgery): ? 0.1-0.3 IU/mL Blood VENOUS BLOOD SPECIMEN / Unknown Venipuncture / Unknown 02/05/2024 5:39 AM EDT 02/05/2024 5:51 AM EDT Jeanna Carreon MD HEMATOLOGY ORDERABLE S [facility] [place] [address] * CBC (with Diff) (02/05/2024 5:39 AM EDT) White Blood Cell 7.36 4.00 - 9.50 x10(3)/mcL 02/05/2024 5:55 AM EDT [facility] Red Blood Cell 4.52 4.00 - 5.21 x10(6)/mcL 02/05/2024 5:55 AM EDT [facility] Hemoglobin 14.1 11.7 - 15.5 g/dL 02/05/2024 5:55 AM EDT [facility] Hematocrit 41.4 35.7 - 45.8 % 02/05/2024 5:55 AM EDT [facility] Mean Cell Volume 91.6 82.6 - 94.4 fL 02/05/2024 5:55 AM EDT [facility] Mean Cell Hemoglobin 31.2 27.1 - 32.0 pg 02/05/2024 5:55 AM EDT [facility] Mean Cell Hemoglobin Concentration 34.1 31.7 - 35.0 g/dL 02/05/2024 5:55 AM [facility] Platelet 228 145 - 357 x10(3)/mcL 02/05/2024 5:55 AM [facility] Mean Platelet Volume 8.5 7.6 - 12.9 fL 02/05/2024 5:55 AM [facility] RDW Standard Deviation 45.6 37.0 - 46.0 fL 02/05/2024 5:55 AM [facility] RDW coefficient of variation 13.5 11.5 - 14.1 % 02/05/2024 5:55 AM [facility] NRBC% auto 0.0 % 02/05/2024 5:55 AM [facility] NRBC Absolute <0.01 <0.01 x10(3)/mcL 02/05/2024 5:55 AM [facility] Neutrophil % 50.6 % 02/05/2024 5:55 AM [facility] Neutrophil Absolute (ANC) - Automated 3.72 1.70 - 6.10 x10(3)/mcL 02/05/2024 5:55 AM [facility] Lymph % 40.6 % 02/05/2024 5:55 AM [facility] Lymph Absolute 2.99 0.90 - 3.20 x10(3)/mcL 02/05/2024 5:55 AM [facility] Monocyte % 6.9 % 02/05/2024 5:55 AM [facility] Monocyte Absolute 0.51 0.30 - 0.90 x10(3)/mcL 02/05/2024 5:55 AM [facility] Eos % 1.2 % 02/05/2024 5:55 AM [facility] Eos Absolute 0.09 0.00 - 0.40 x10(3)/mcL 02/05/2024 5:55 AM [facility] Basophil % 0.3 % 02/05/2024 5:55 AM EDT [facility] Baso Absolute <0.04 0.00 - 0.10 x10(3)/mcL 02/05/2024 5:55 AM EDT [facility] Immature Gran % 0.4 % 5:55 AM EDT [facility] Immature Gran Absolute <0.04 0.00 - 0.04 x10(3)/mcL 02/05/2024 5:55 AM EDT [facility] Blood VENOUS BLOOD SPECIMEN / Unknown Venipuncture / Unknown 02/05/2024 5:39 AM EDT 02/05/2024 5:51 AM EDT Jeanna Carreon MD HEMATOLOGY ORDERABLE S Performing Organization Address City/State/[facility] Co de Phone Number [facility] [place] [address] * (ABNORMAL) CBC (with Diff) (02/04/2024 11:24 PM EDT) White Blood Cell 8.61 4.00 - 9.50 x10(3)/mc L 02/04/2024 11:32 PM EDT [facility] Red Blood Cell 4.37 4.00 - 5.21 x10(6)/mc L 02/04/2024 11:32 PM EDT [facility] Hemoglobin 13.7 11.7 - 15.5 g/dL 02/04/2024 11:32 PM EDT [facility] Hematocrit 40.4 35.7 - 45.8 % 02/04/2024 11:32 PM EDT [facility] Mean Cell Volume 92.4 82.6 - 94.4 fL 02/04/2024 11:32 PM EDT [facility] Mean Cell Hemoglobin 31.4 27.1 - 32.0 pg 02/04/2024 11:32 PM EDT [facility] Mean Cell Hemoglobin Concentration 33.9 31.7 - 35.0 g/dL 02/04/2024 11:32 PM [facility] Platelet 238 145 - 357 x10(3)/mc L 02/04/2024 11:32 PM [facility] Mean Platelet Volume 8.2 7.6 - 12.9 fL 02/04/2024 11:32 PM [facility] RDW Standard Deviation 45.6 37.0 - 46.0 fL 02/04/2024 11:32 PM [facility] RDW coefficient of variation 13.3 11.5 - 14.1 % 02/04/2024 11:32 PM [facility] NRBC% auto 0.0 % 02/04/2024 11:32 PM [facility] NRBC Absolute <0.01 <0.01 x10(3)/mc L 02/04/2024 11:32 PM [facility] Neutrophil % 46.7 % 02/04/2024 11:32 PM [facility] Neutrophil Absolute (ANC) - Automated 4.02 1.70 - 6.10 x10(3)/mc L 02/04/2024 11:32 PM [facility] Lymph % 43.8 % 02/04/2024 11:32 PM [facility] Lymph Absolute 3.77(H) 0.90 - 3.20 x10(3)/mc L 02/04/2024 11:32 PM [facility] Monocyte % 7.9 % 02/04/2024 11:32 PM [facility] Monocyte Absolute 0.68 0.30 - 0.90 x10(3)/mc L 02/04/2024 11:32 PM [facility] Eos % 1.2 % 02/04/2024 11:32 PM [facility] Eos Absolute 0.10 0.00 - 0.40 x10(3)/mc L 02/04/2024 11:32 PM [facility] Basophil % 0.2 % 02/04/2024 11:32 PM EDT [facility] Baso Absolute <0.04 0.00 - 0.10 x10(3)/mc L 02/04/2024 11:32 PM EDT [facility] Immature Gran % 0.2 % 11:32 PM EDT [facility] Immature Gran Absolute <0.04 0.00 - 0.04 x10(3)/mc L 02/04/2024 11:32 PM EDT [facility] Blood VENOUS BLOOD SPECIMEN / Unknown Venipuncture / Unknown 02/04/2024 11:24 PM EDT 02/04/2024 11:28 PM EDT Jeanna Carreon MD HEMATOLOGY ORDERABLE S [facility] [place] [address] * CT Angiogram Chest (Non-Coronary) w Contrast (02/04/2024 6:45 PM EDT) [employer] Signature WORKSTATION ID [id number] RAD Anatomical Region Laterality Modality Chest Computed [...] who have questions please contact the health farm or ranch animal caretaker that requested your imaging first. ? Electronically signed by: Charissa Alcala MD, [facility] ([phone]), at 02/04/2024 7:00 PM Narrative 02/04/2024 7:00 [...] CT angiography abdomen, pelvis and lower extremity runoffFebruary 04, 2024 FINDINGS: VASCULAR Heart: Normal size. [...] patients who have questions please contactthe health farm or ranch animal caretaker that requested your imaging first. Electronically signed by: Charissa Alcala MD, [facility]([phone]), at 02/04/2024 7:00 PM Javier Alvares MD IMG CT ORDERABLES * EKG 12 Lead (02/04/2024 6:00 PM EDT) Ventricular rate 97 BPM MUSE SYSTEM Atrial Rate 83 BPM MUSE SYSTEM P-R Interval 140 ms MUSE SYSTEM QRS Duration 138 ms MUSE SYSTEM Q-T Interval 420 ms MUSE SYSTEM QTC Calculated (Bezet) 533 ms MUSE SYSTEM Calculated P [place] 54 degrees MUSE SYSTEM Calculated R [place] 171 degrees MUSE SYSTEM Calculated T [place] [employer] 56 degrees MUSE SYSTEM INTERPRETATION Sinus rhythm with run of ??Atrial tachycardia Right bundle branch block Abnormal ECG When compared with ECG of 28-JAN-2024 10:13, Premature supraventricular complexes are now Present QT has lengthened Confirmed by MD ULI, KYRA ([id number]) on 02/05/2024 5:47:56 PM MUSE SYSTEM 02/04/2024 6:00 PM EDT 02/05/2024 5:47 PM EDT Javier Alvares MD ECG ORDERABLES MUSE SYSTEM * MARGIE, legs, multiple levels (02/04/2024 4:03 PM EDT) VB Text Report Department: Vascular Surgery Lab Patient: [id number] (ASHLEY GRAYSON) CPT: 99596 Referring Physician: JAVIER ALVARES ?? Phone: Indications: Rest pain in left leg, hx of aorta bifemoral bypass graft, ? flow Diabetes mellitus: No Findings: Right ?Pressure (mm Hg) ?? MARGIE ??Waveform ?TBI ?? Brachial Artery ?138 ? Common Femoral Artery ?[place]-Biphasic ? Popliteal Artery ? [place]-Biphasic ? Dorsalis Pedis (Ankle) Artery ?62 ?0.43 ??[place]-Biphasic ? Posterior Tibial (Ankle) Artery ??62 ?0.43 ??[place]-Biphasic ? Great Toe ?51 ? 0.36 ?? [...] of Report VASCUBASE 02/04/2024 4:03 PM EDT Javier Alvares MD VASCULAR ORDERABLES VASCUBASE * CT Angiogram Aortic Lower Extremity Runoff (02/04/2024 3:51 PM EDT) Pathologist TLM Com WORKSTATION ID [id number] RAD Anatomical Region Laterality Modality Abdomen Computed Tomogra phy Impressions 02/04/2024 4:09 PM EDT 1. ??Status post aortobiiliac bypass. 2. 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 ? Electronically signed by: Jeanna Fernandes DO, [facility] ([phone]), at 02/04/2024 4:09 PM Narrative 02/04/2024 4:09 [...] and pelvis dated August 18, 2023. FINDINGS: Dye Reel Operator Helper Images: Noncontributory. VASCULAR FINDINGS Abdominal aorta: There is been prior aorto bifemoral bypass. ??The lower brule aorta occludes immediately inferior to the bypass [...] the intravenous administration of contrast. The patient [id number] mL Omnipaque 350 intravenous contrast. Maximum intensity projection (MIP)were reformatted. 3-D images were generated on an independent workstation. COMPARISON: Correlation is made to CT of the abdomen and pelvis dated 2023. FINDINGS: Dye Reel Operator Helper Images: Noncontributory. VASCULAR FINDINGS Abdominal aorta: There [...] aortobiiliac bypass. 2. 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 [...] patients who have questions please contactthe health farm or ranch animal caretaker that requested your imaging first. Electronically signed by: Jeanna Fernandes DO, [facility]([phone]), at 02/04/2024 4:09 PM Javier Alvares MD IMG CT ORDERABLES * Bilirubin, Direct (02/04/2024 2:39 PM EDT) Pathologist [facility] Bilirubin, Direct <0.2 0.0 - 0.3 mg/dL 02/04/2024 6:28 PM EDT [facility] Blood VENOUS BLOOD SPECIMEN / Unknown Venipuncture / Unknown 02/04/2024 2:39 PM EDT 02/04/2024 2:54 PM EDT Edmund Truong MD CHEMISTRY ORDERABL ES Performing Organization Address City/[facility]/ZIP Co de Phone Number [facility] [place] [address] * Gold Tube HOLD (02/04/2024 2:39 PM EDT) Pathologist [facility] Gold Hold Hold for Add-on 02/04/2024 4:01 PM EDT [facility] Blood VENOUS BLOOD SPECIMEN / Unknown 02/04/2024 2:39 PM EDT 02/04/2024 2:56 PM EDT Javier Alvares MD CHEMISTRY ORDERABLE S [facility] [place] [address] * (ABNORMAL) Comprehensive metabolic panel (02/04/2024 2:39 PM EDT) Pathologist [facility] Glucose 77 65 - 199 mg/dL 02/04/2024 3:31 PM [facility] Comment:Glucose Concentratio n >=200 mg/dL plus symptoms is consistent with Diabetes Mellitus. Blood Urea Nitrogen 7(L) 8 - 18 mg/dL 02/04/2024 3:31 PM [facility] Creatinine 0.74 0.70 - 1.20 mg/dL 02/04/2024 3:31 PM [facility] Sodium 140 135 - 145 mMol/L 02/04/2024 3:31 PM [facility] Potassium 3.8 3.5 - 5.0 mMol/L 02/04/2024 3:31 PM [facility] Chloride 104 98 - 107 mMol/L 02/04/2024 3:31 PM [facility] Carbon Dioxide 24 22 - 31 mMol/L 02/04/2024 3:31 PM [facility] Anion Gap 12 5 - 15 mMol/L 02/04/2024 3:31 PM [facility] Calcium 9.5 8.5 - 10.5 mg/dL 02/04/2024 3:31 PM [facility] Protein, Total 7.3 6.1 - 8.0 g/dL 02/04/2024 3:31 PM [facility] Albumin 4.2 3.2 - 5.2 g/dL 02/04/2024 3:31 PM [facility] Aspartate Aminotransferase 13 <=30 unit/L 02/04/2024 3:31 PM [facility] Alanine Aminotransferase 18 0 - 30 unit/L 02/04/2024 3:31 PM [facility] Alkaline Phosphatase 94 35 - 105 unit/L 02/04/2024 3:31 PM [facility] Bilirubin, Total 0.3 <=1.3 mg/dL 02/04/2024 3:31 PM [facility] Est Glomerular Filtration Rate - Female 91 mL/min/1. 73 m?? 02/04/2024 3:31 PM EDT [facility] Comment: This patient's estimated [...] 2:39 PM EDT 02/04/2024 2:54 PM EDT Javier Alvares MD CHEMISTRY ORDERABLE S [facility] [place] [address] * Type and screen ([facility]) (02/04/2024 2:39 PM EDT) [facility] Type B NEGATIVE 02/04/2024 4:17 PM EDT [facility] PATIENT HISTORY Not Found 02/04/2024 4:17 PM EDT [facility] Expires at [id number] on: 02-07-2024 02/04/2024 4:17 PM EDT [facility] ANTIBODY SCREEN AUTOMATED Negative 02/04/2024 4:17 PM EDT [facility] T&S only valid at [facility] 02/04/2024 4:17 PM EDT [facility] Blood VENOUS BLOOD SPECIMEN / Unknown Venipuncture / Unknown 02/04/2024 2:39 PM EDT 02/04/2024 3:04 PM EDT Narrative [facility] - 02/04/2024 4:17 PM EDT This Type and Screen result is only valid at the [facility] Javier Alvares MD BLOOD BANK LAB BEATRIZ PIMENTEL Performing Organization Address [facility]/ZIP Co de Phone Number [facility] [place] [address] * APTT (02/04/2024 2:39 PM EDT) Partial Thromboplastin Time 32 25 - 37 sec 02/04/2024 3:06 PM EDT [facility] Comment: The PTT is NOT appropriate for heparin monitoring. Use the Anti-Xa level for heparin monitoring (HEP UFH) or LMWH monitoring (HEP LMW). A PTT less than 37 seconds generally indicates adequate hemostasis. Blood VENOUS BLOOD SPECIMEN / Unknown Venipuncture / Unknown 02/04/2024 2:39 PM EDT 02/04/2024 2:53 PM EDT Javier Alvares MD HEMATOLOGY ORDERABL ES Performing Organization Address [facility] Co de Phone Number [facility] [place] [address] * Prothrombin Time (02/04/2024 2:39 PM EDT) Prothrombin Time 11.5 9.4 - 12.5 sec 02/04/2024 3:06 PM EDT [facility] International Normalization Ratio 1.0 <=4.9 02/04/2024 3:06 PM EDT [facility] Comment: An INR < 2.0 indicates [...] / Unknown 02/04/2024 2:39 PM EDT 02/04/2024 2:53 PM EDT Javier Alvares MD HEMATOLOGY ORDERABL ES Performing Organization Address [facility] Co de Phone Number [facility] [place] [address] * (ABNORMAL) CBC (with Diff) (02/04/2024 2:39 PM EDT) White Blood Cell 9.40 4.00 - 9.50 x10(3)/mc L 02/04/2024 3:07 PM EDT [facility] Red Blood Cell 4.78 4.00 - 5.21 x10(6)/mc L 02/04/2024 3:07 PM EDT [facility] Hemoglobin 14.9 11.7 - 15.5 g/dL 02/04/2024 3:07 PM [facility] Hematocrit 44.6 35.7 - 45.8 % 02/04/2024 3:07 PM EDT [facility] Mean Cell Volume 93.3 82.6 - 94.4 fL 02/04/2024 3:07 PM T [facility] Mean Cell Hemoglobin 31.2 27.1 - 32.0 pg 02/04/2024 3:07 PM EDT [facility] Mean Cell Hemoglobin Concentration 33.4 31.7 - 35.0 g/dL 02/04/2024 3:07 PM [facility] Platelet 266 145 - 357 x10(3)/mc L 02/04/2024 3:07 PM [facility] Mean Platelet Volume 8.5 7.6 - 12.9 fL 02/04/2024 3:07 [facility] Standard Deviation 45.8 37.0 - 46.0 fL 02/04/2024 3:07 PM [facility] RDW coefficient of variation 13.3 11.5 - 14.1 % 02/04/2024 3:07 PM [facility] NRBC% auto 0.0 % 02/04/2024 3:07 PM [facility] NRBC Absolute <0.01 <0.01 x10(3)/mc L 02/04/2024 3:07 [facility] Neutrophil % 56.1 % 02/04/2024 3:07 PM EDT [facility] Neutrophil Absolute (ANC) - Automated 5.27 1.70 - 6.10 x10(3)/mc L 02/04/2024 3:07 PM EDT [facility] Lymph % 35.1 % 02/04/2024 3:07 PM EDT [facility] Lymph Absolute 3.30(H) 0.90 - 3.20 x10(3)/mc L 02/04/2024 3:07 PM EDT [facility] Monocyte % 7.6 % 02/04/2024 3:07 PM EDT [facility] Monocyte Absolute 0.71 0.30 - 0.90 x10(3)/mc L 02/04/2024 3:07 PM EDT [facility] Eos % 0.7 % 02/04/2024 3:07 PM EDT [facility] Eos Absolute 0.07 0.00 - 0.40 x10(3)/mc L 02/04/2024 3:07 PM EDT [facility] Basophil % 0.2 % 02/04/2024 3:07 PM EDT [facility] Baso Absolute <0.04 0.00 - 0.10 x10(3)/mc L 02/04/2024 3:07 PM EDT [facility] Immature Gran % 0.3 % 3:07 PM EDT [facility] Immature Gran Absolute <0.04 0.00 - 0.04 x10(3)/mc L 02/04/2024 3:07 PM EDT [facility] Blood VENOUS BLOOD SPECIMEN / Unknown Venipuncture / Unknown 02/04/2024 2:39 PM EDT 02/04/2024 2:54 PM EDT Javier Alvares MD HEMATOLOGY ORDERABL ES [facility] [place] [address] * Duplex for DVT, Leg, Unilat (02/04/2024 2:32 PM EDT) VB Text Report Department: Vascular Surgery Lab Patient: [id number] (ASHLEY GRAYSON) CPT: 57123 Referring Physician: JAVIER ALVARES ?? Phone: Indications: ??Left calf pain, [...] in the distal left limb of the [id number] bypass graft. There is low velocity, monophasic flow in what is suspected to be the [place] common femoral artery, but unable to determine [...] of occluded distal left limb of the [id number] bypass graft. There does appear to be flow within the [place] common femoral artery with reconstitution of flow at the femoral bifurcation. Comparison: ??No previous study in our vascular lab database for comparison. Electronically Signed by: JEANNA CARREON M.D. on 2024-02-04 03:56:38 PM VASCUBASE VB Text Report End of Report VASCUBASE 02/04/2024 2:32 PM EDT Javier Alvares MD VASCULAR ORDERABLES VASCUBASE documented in this encounter Visit Diagnoses Diagnosis Left leg pain- Primary Pain in limb Pain of left calf Pain in limb Systemic mastocytosis Malignant mast cell tumors, unspecified site, extranodal and solid organ sites Pre-op testing Preoperative examination, unspecified Aortoiliac occlusive disease Other arterial embolism and thrombosis of abdominal aorta documented in this encounter Admitting Diagnoses Diagnosis Left leg pain Pain in limb documented in this encounter Administered Medications Inactive Administered Medications - up to 3 most recent administrations Medication Order MAR Action Action Date Dose Rate Site acetaminophen (Tylenol) tablet 975 mg 975 mg, Oral, EVERY 6 HOURS SCHEDULED, First dose on Opal 02/04/24 at 1925, Until Discontinued, When ordered for pain, acetaminophen should be given even when other ordered pain medications are indicated. Maximum dose of acetaminophen is 4,000 mg from all sources in 24 hours. , Routine Given 02/05/2024 12:58 PM EDT 975 mg Given 02/05/2024 5:41 AM EDT 975 mg bisacodyL (Dulcolax) suppository 10 mg 10 mg, Rectal, DAILY PRN, Starting on Opal 02/04/24 at 1903, Until Thu02/05/24 at 1937, Constipation, Give if no BM within last 24 hr and rectal fullness is reported or assessed. Give concomitantly with any scheduled bowel medications ordered. , Routine bisacodyL EC (Dulcolax) tablet 10 mg 10 mg, Oral, 2 TIMES DAILY PRN, Starting on Opal 02/04/24 at 1903, Until Thu02/05/24 at 1937, Constipation, Give if no BM after 24 hr after prior interventions. BM expected in 6-8 hours. If BM desired sooner, use next ordered agent. Give concomitantly with any scheduled bowel medications ordered., Routine heparin (porcine) (1,000 units/mL) injection 0-8,000 Units 0-8,000 Units, Intravenous, BOLUS PER HEPARIN PROTOCOL, Starting on Opal 02/04/24 at 2156, Until Thu02/05/24 at 1937, Per Protocol, START ADJUSTMENT SCHEDULE 6 HOURS AFTER STARTING INFUSION Bolus doses are rounded to the nearest 100 units. If Heparin UFH Level is: - Less than 0.1 international unit/mL: Bolus 80 units/kg (Maximum of 8,000 units) = Bolus 4,500 units - 0.1 - 0.19 International unit/mL: Bolus 40 units/kg (Maximum of 4,000 units) = Bolus 2,200 units - Equal to or greater than 0.2 international unit/mL: No Bolus, Routine heparin (porcine) 50 units/mL in dextrose 5% 500 mL infusion 0-5,000 Units/hr (0-100 mL/hr), Intravenous, CONTINUOUS, Starting on Opal 02/04/24 at 2215, Until Thu02/05/24 at 1937, Begin infusion at 1,000 units per hr (18 units/kg/hr). Maximum initial infusion rate is 2,000 units/hr. Infusion doses are rounded to the nearest 50 units. Target Heparin UFH Level (anti-Xa activity) = 0.3 - 0.7 international unit/mL Start adjustment schedule 6 hours after starting infusion. If Heparin UFH Level is: - Less than 0.1 international unit/mL: Administer PRN bolus and increase rate by 200 units per hr (4 units/kg/hr) - 0.1 - 0.19 international unit/mL: Administer PRN bolus and increase rate by 100 units per hr (2 units/kg/hr) - 0.2 - 0.29 international unit/mL: NO BOLUS and increase rate by 100 units per hr (2 units/kg/hr) - 0.3 - 0.7 international unit/mL: No change - 0.71 - 0.79 international unit/mL: NO BOLUS and decrease rate by 50 units per hr (1 units/kg/hr) - 0.8 - 0.99 international unit/mL: NO BOLUS and decrease rate by 100 units per hr (2 units/kg/hr) - Greater than or equal to 1.00 international unit/mL: Hold infusion for 60 minutes then decrease rate by 150 units per hour (3 units/kg/hr) Obtain Heparin UFH Level 6 hours after initiating heparin. Then 6 hours after each dose adjustment. When 2 consecutive Heparin UFH Level within target range of 0.3 - 0.7 international unit/mL, change Heparin UFH Level to once every 24 hours with A.M. labs while on heparin. RN to order required Heparin UFH Level - Per Protocol , Routine New Bag 02/04/2024 11:27 PM EDT 1,000 Units/hr 20 mL/hr iohexoL (Omnipaque) (350 mg/mL) solution 0-200 mL 0-200 mL, Intravenous, ONCE PRN, 1 dose, Starting on Opal 02/04/24 at 1541, Until Thu02/04/24 at 1541, Per Protocol, Warning Vesicant/Irritant Medication , Radiology Contrast, Routine Given 02/04/2024 3:41 PM EDT 149 mLs iohexoL (Omnipaque) (350 mg/mL) solution 0-200 mL 0-200 mL, Intravenous, ONCE PRN, 1 dose, Starting on Thu02/04/24 at 1846, Until Thu02/04/24 at 1846, Per Protocol, Warning Vesicant/Irritant Medication , Radiology Contrast, Routine Given 02/04/2024 6:46 PM EDT 50 mLs lactulose (Chronulac) (0.67 gram/mL) oral liquid 20 g 20 g, Oral, DAILY PRN, Starting on Thu02/04/24 at 1903, Until Thu02/05/24 at 1937, Constipation, Give if no BM 24 hr after prior interventions or if BM is desired within 2 hr. Give concomitantly with any scheduled bowel medications ordered, Routine lactulose (Chronulac) (0.67 gram/mL) oral liquid 20 g 20 g, Oral, DAILY PRN, Starting on Thu02/04/24 at 1903, Until Thu02/05/24 at 1937, Constipation, Give an additional (2nd) dose of lactulose 2 hr after 1st dose if still no BM. Disregard if 1st dose of lactulose not ordered. Give concomitantly with any scheduled bowel medications ordered. , Routine magnesium citrate oral liquid 296 mL 296 mL, Oral, ONCE PRN, 1 dose, Starting on Thu02/04/24 at 1903, Until Thu02/05/24 at 1937, Constipation, Give if no BM 2 hr after previous interventions. If 2 hr after mag citrate there is still no BM, see order for tap water enema, if placed. Give concomitantly with any scheduled bowel medications ordered., Routine polyethylene glycoL (Miralax) packet 17 g 17 g, Oral, DAILY PRN, Starting on Thu02/04/24 at 1903, Until Thu02/05/24 at 1937, Constipation, Give if no BM within last 24 hr. Give concomitantly with any scheduled bowel medications ordered. , Routine polyethylene glycoL (Miralax) packet 17 g 17 g, Oral, DAILY, First dose on Thu02/04/24 at 1925, Until Discontinued, Hold for loose stool. , Routine potassium chloride ER (Klor-Con M) crystal tablet 20 mEq 20 mEq, Oral, ONCE, 1 dose, On Thu02/05/24 at 1245, potassium chloride ER particle/crystal tablets (Klor-Con M) may be broken in half and each half swallowed separately. Tablets can be dissolved in ~4 ounces of water; allow ~2 minutes to dissolve, stir well and drink immediately. Do not crush, chew, or suck on tablet., Routine Given 02/05/2024 12:58 PM EDT 20 mEq senna-docusate (Pericolace) 8.6-50 mg per tablet 2 tablet 2 tablet, Oral, 2 TIMES DAILY, First dose on Opal 02/04/24 at 2100, Until Discontinued, Hold for loose stool. , Routine Given 02/04/2024 11:31 PM EDT 2 tablets documented in this encounter Active and Recently Administered Medications Times are shown in EDT. Scheduled Medication Order 02/03/2024 02/04/2024 02/05/2024 acetaminophen (Tylenol) tablet 975 mg 975 mg, Oral, EVERY 6 HOURS SCHEDULED, First dose on Opal 02/04/24 at 1925, Until Discontinued, When ordered for pain, acetaminophen should be given even when other ordered pain medications are indicated. Maximum dose of acetaminophen is 4,000 mg from all sources in 24 hours. , Routine 1925 (Not Given - Provider: Zulema Orosco RN - Reason: See comment - Comment: not given in ED) 0000 (Not Given - Provider: Zulema Orosco RN - Reason: Patient/family refused)0541 (Given - Provider: Zulema Orosco RN)1258 (Given - Provider: Eva Raymond RN) polyethylene glycoL (Miralax) packet 17 g 17 g, Oral, DAILY, First dose on Opal 02/04/24 at 1925, Until Discontinued, Hold for loose stool. , Routine 1925 (Not Given - Provider: Zulema Orosco RN - Reason: See comment - Comment: not given in ED) 0900 (Not Given - Provider: Doni Arias RN - Reason: Patient/family refused) potassium chloride ER (Klor-Con M) crystal tablet 20 mEq (COMPLETED) 20 mEq, Oral, ONCE, 1 dose, On Thu02/05/24 at 1245, potassium chloride ER particle/crystal tablets (Klor-Con M) may be broken in half and each half swallowed separately. Tablets can be dissolved in ~4 ounces of water; allow ~2 minutes to dissolve, stir well and drink immediately. Do not crush, chew, or suck on tablet., Routine 1258 (Given - Provid er: Eva Raymond RN) senna-docusate (Pericolace) 8.6-50 mg per tablet 2 tablet 2 tablet, Oral, 2 TIMES DAILY, First dose on Opal 02/04/24 at 2100, Until Discontinued, Hold for loose stool. , Routine 2331 (Given - Provider: Zulema Orosco RN - Comment: dose not given in ED) 0900 (Not Given - Provider: Doni Arias RN - Reason: Patient/family refused) Continuous Medication Order 02/03/2024 02/04/2024 02/05/2024 heparin (porcine) 50 units/mL in dextrose 5% 500 mL infusion(Linked Group 1) 0-5,000 Units/hr (0-100 mL/hr), Intravenous, CONTINUOUS, Starting on Opal 02/04/24 at 2215, Until Thu02/05/24 at 1937, Begin infusion at 1,000 units per hr (18 units/kg/hr). Maximum initial infusion rate is 2,000 units/hr. Infusion doses are rounded to the nearest 50 units. Target Heparin UFH Level (anti-Xa activity) = 0.3 - 0.7 international unit/mL Start adjustment schedule 6 hours after starting infusion. If Heparin UFH Level is: - Less than 0.1 international unit/mL: Administer PRN bolus and increase rate by 200 units per hr (4 units/kg/hr) - 0.1 - 0.19 international unit/mL: Administer PRN bolus and increase rate by 100 units per hr (2 units/kg/hr) - 0.2 - 0.29 international unit/mL: NO BOLUS and increase rate by 100 units per hr (2 units/kg/hr) - 0.3 - 0.7 international unit/mL: No change - 0.71 - 0.79 international unit/mL: NO BOLUS and decrease rate by 50 units per hr (1 units/kg/hr) - 0.8 - 0.99 international unit/mL: NO BOLUS and decrease rate by 100 units per hr (2 units/kg/hr) - Greater than or equal to 1.00 international unit/mL: Hold infusion for 60 minutes then decrease rate by 150 units per hour (3 units/kg/hr) Obtain Heparin UFH Level 6 hours after initiating heparin. Then 6 hours after each dose adjustment. When 2 consecutive Heparin UFH Level within target range of 0.3 - 0.7 international unit/mL, change Heparin UFH Level to once every 24 hours with A.M. labs while on heparin. RN to order required Heparin UFH Level - Per Protocol , Routine 8581 (New Bag - Provider: Zulema Orosco, RN) 1715 (Stopped - Provider: Doni Arias RN) PRN Medication Order 02/03/2024 02/04/2024 02/05/2024 bisacodyL (Dulcolax) suppository 10 mg(Linked Group 2) 10 mg, Rectal, DAILY PRN, Starting on Opal 02/04/24 at 1903, Until Thu02/05/24 at 1937, Constipation, Give if no BM within last 24 hr and rectal fullness is reported or assessed. Give concomitantly with any scheduled bowel medications ordered. , Routine bisacodyL EC (Dulcolax) tablet 10 mg(Linked Group 2) 10 mg, Oral, 2 TIMES DAILY PRN, Starting on Opal 02/04/24 at 1903, Until Thu02/05/24 at 1937, Constipation, Give if no BM after 24 hr after prior interventions. BM expected in 6-8 hours. If BM desired sooner, use next ordered agent. Give concomitantly with any scheduled bowel medications ordered., Routine heparin (porcine) (1,000 units/mL) injection 0-8,000 Units(Linked Group 1) 0-8,000 Units, Intravenous, BOLUS PER HEPARIN PROTOCOL, Starting on Opal 02/04/24 at 2156, Until Thu02/05/24 at 1937, Per Protocol, START ADJUSTMENT SCHEDULE 6 HOURS AFTER STARTING INFUSION Bolus doses are rounded to the nearest 100 units. If Heparin UFH Level is: - Less than 0.1 international unit/mL: Bolus 80 units/kg (Maximum of 8,000 units) = Bolus 4,500 units - 0.1 - 0.19 International unit/mL: Bolus 40 units/kg (Maximum of 4,000 units) = Bolus 2,200 units - Equal to or greater than 0.2 international unit/mL: No Bolus, Routine iohexoL (Omnipaque) (350 mg/mL) solution 0-200 mL (COMPLETED) 0-200 mL, Intravenous, ONCE PRN, 1 dose, Starting on Opal 02/04/24 at 1541, Until Opal 02/04/24 at 1541, Per Protocol, Warning Vesicant/Irritant Medication , Radiology Contrast, Routine 1541 (Given - Provider: Edwin Vargas Jr.) iohexoL (Omnipaque) (350 mg/mL) solution 0-200 mL (COMPLETED) 0-200 mL, Intravenous, ONCE PRN, 1 dose, Starting on Opal 02/04/24 at 1846, Until Opal 02/04/24 at 1846, Per Protocol, Warning Vesicant/Irritant Medication , Radiology Contrast, Routine 1846 (Given - Provider: Orlando Gunter) lactulose (Chronulac) (0.67 gram/mL) oral liquid 20 g(Linked Group 2) 20 g, Oral, DAILY PRN, Starting on Opal 02/04/24 at 1903, Until Thu02/05/24 at 1937, Constipation, Give if no BM 24 hr after prior interventions or if BM is desired within 2 hr. Give concomitantly with any scheduled bowel medications ordered, Routine lactulose (Chronulac) (0.67 gram/mL) oral liquid 20 g(Linked Group 2) 20 g, Oral, DAILY PRN, Starting on Opal 02/04/24 at 1903, Until Thu02/05/24 at 1937, Constipation, Give an additional (2nd) dose of lactulose 2 hr after 1st dose if still no BM. Disregard if 1st dose of lactulose not ordered. Give concomitantly with any scheduled bowel medications ordered. , Routine magnesium citrate oral liquid 296 mL(Linked Group 2) 296 mL, Oral, ONCE PRN, 1 dose, Starting on Opal 02/04/24 at 1903, Until Thu02/05/24 at 1937, Constipation, Give if no BM 2 hr after previous interventions. If 2 hr after mag citrate there is still no BM, see order for tap water enema, if placed. Give concomitantly with any scheduled bowel medications ordered., Routine polyethylene glycoL (Miralax) packet 17 g(Linked Group 2) 17 g, Oral, DAILY PRN, Starting on Opal 02/04/24 at 1903, Until Thu02/05/24 at 1937, Constipation, Give if no BM within last 24 hr. Give concomitantly with any scheduled bowel medications ordered. , Routine Linked Groups Order Group 1: heparin (porcine) 50 units/mL in dextrose 5% 500 mL infusionJump to med 0-5,000 Units/hr (0-100 mL/hr), Intravenous, CONTINUOUS, Starting on Opal 02/04/24 at 2215, Until Thu02/05/24 at 1937, Begin infusion at 1,000 units per hr (18 units/kg/hr). Maximum initial infusion rate is 2,000 units/hr. Infusion doses are rounded to the nearest 50 units. Target Heparin UFH Level (anti-Xa activity) = 0.3 - 0.7 international unit/mL Start adjustment schedule 6 hours after starting infusion. If Heparin UFH Level is: - Less than 0.1 international unit/mL: Administer PRN bolus and increase rate by 200 units per hr (4 units/kg/hr) - 0.1 - 0.19 international unit/mL: Administer PRN bolus and increase rate by 100 units per hr (2 units/kg/hr) - 0.2 - 0.29 international unit/mL: NO BOLUS and increase rate by 100 units per hr (2 units/kg/hr) - 0.3 - 0.7 international unit/mL: No change - 0.71 - 0.79 international unit/mL: NO BOLUS and decrease rate by 50 units per hr (1 units/kg/hr) - 0.8 - 0.99 international unit/mL: NO BOLUS and decrease rate by 100 units per hr (2 units/kg/hr) - Greater than or equal to 1.00 international unit/mL: Hold infusion for 60 minutes then decrease rate by 150 units per hour (3 units/kg/hr) Obtain Heparin UFH Level 6 hours after initiating heparin. Then 6 hours after each dose adjustment. When 2 consecutive Heparin UFH Level within target range of 0.3 - 0.7 international unit/mL, change Heparin UFH Level to once every 24 hours with A.M. labs while on heparin. RN to order required Heparin UFH Level - Per Protocol , Routine And heparin (porcine) (1,000 units/mL) injection 0-8,000 UnitsJump to med 0-8,000 Units, Intravenous, BOLUS PER HEPARIN PROTOCOL, Starting on Thu02/04/24 at 2156, Until Thu02/05/24 at 1937, Per Protocol, START ADJUSTMENT SCHEDULE 6 HOURS AFTER STARTING INFUSION Bolus doses are rounded to the nearest 100 units. If Heparin UFH Level is: - Less than 0.1 international unit/mL: Bolus 80 units/kg (Maximum of 8,000 units) = Bolus 4,500 units - 0.1 - 0.19 International unit/mL: Bolus 40 units/kg (Maximum of 4,000 units) = Bolus 2,200 units - Equal to or greater than 0.2 international unit/mL: No Bolus, Routine Group 2: polyethylene glycoL (Miralax) packet 17 gJump to med 17 g, Oral, DAILY PRN, Starting on Thu02/04/24 at 1903, Until Thu02/05/24 at 1937, Constipation, Give if no BM within last 24 hr. Give concomitantly with any scheduled bowel medications ordered. , Routine And bisacodyL (Dulcolax) suppository 10 mgJump to med 10 mg, Rectal, DAILY PRN, Starting on Thu02/04/24 at 1903, Until Thu02/05/24 at 1937, Constipation, Give if no BM within last 24 hr and rectal fullness is reported or assessed. Give concomitantly with any scheduled bowel medications ordered. , Routine And bisacodyL EC (Dulcolax) tablet 10 mgJump to med 10 mg, Oral, 2 TIMES DAILY PRN, Starting on Thu02/04/24 at 1903, Until Thu02/05/24 at 1937, Constipation, Give if no BM after 24 hr after prior interventions. BM expected in 6-8 hours. If BM desired sooner, use next ordered agent. Give concomitantly with any scheduled bowel medications ordered., Routine And lactulose (Chronulac) (0.67 gram/mL) oral liquid 20 gJump to med 20 g, Oral, DAILY PRN, Starting on Thu02/04/24 at 1903, Until Thu02/05/24 at 1937, Constipation, Give if no BM 24 hr after prior interventions or if BM is desired within 2 hr. Give concomitantly with any scheduled bowel medications ordered, Routine And lactulose (Chronulac) (0.67 gram/mL) oral liquid 20 gJump to med 20 g, Oral, DAILY PRN, Starting on Opal 02/04/24 at 1903, Until Thu02/05/24 at 1937, Constipation, Give an additional (2nd) dose of lactulose 2 hr after 1st dose if still no BM. Disregard if 1st dose of lactulose not ordered. Give concomitantly with any scheduled bowel medications ordered. , Routine And magnesium citrate oral liquid 296 mLJump to med 296 mL, Oral, ONCE PRN, 1 dose, Starting on Opal 02/04/24 at 1903, Until Thu02/05/24 at 1937, Constipation, Give if no BM 2 hr after previous interventions. If 2 hr after mag citrate there is still no BM, see order for tap water enema, if placed. Give concomitantly with any scheduled bowel medications ordered., Routine And Tap water enema (CANCELED) Routine, DAILY PRN, Starting on Opal 02/04/24 at 1903, Until Specified, Give if no BM in at least 24 hr and all other ordered bowel regimen medications have been unsuccessful. Give concomitantly with any scheduled bowel medications ordered. documented in this encounter Care Teams Lei Maker Relationship Specialty Start Date End Date Estrella cMkay, [employer]UFF GR[employer]ER AND SCREENER Juan [place] [facility] [place] [address] PCP - General Family Medicine 12/14/23 documented as of this encounter
--- OUTSIDE RECORDS SUMMARY | 2024-02-29 15:52 | XMS_ITS | Encounter Summary ---
[place] [address] Care Team Providers Care Textile Screen Maker Name Role Phone Estrella Mckay APRN Primary Care Provider [phone] Reason for Visit * Reason Onset Date Comments Appointment 02/03/2024 Encounter Details Date Type Department Care Team (Late st Contact Info) Description 02/03/2024 Telephone Hematology [place] [id number] Karmen Joe RN Appointment Social History Tobacco Use Types Packs/Day Years Used Date Smoking Tobacco: Former Cigarettes 1 30 Q uit: 2012 Smokeless Tobacco: Never Comments:3/4TH PK A DAY Alcohol Use Standard Drinks/Week Comments No 0 (1 standard drink = 0.6 oz pur e alcohol) [facility] Inpatient Questions Answer Date Recorded Does Anyone [...] encounter Miscellaneous Notes * Telephone Encounter - Karmen Joe RN - 02/03/2024 10:12 AM EDT RESEARCH NURSE TELEPHONE NOTE [id number]: ([facility]) A MULTI-PART, RANDOMIZED, DOUBLE-BLIND, PLACEBO-CONTROLLED PHASE 2 CLINICAL STUDYOF THE SAFETY AND EFFICACY OF [id number] IN SUBJECTS WITH NONADVANCED SYSTEMIC MASTOCYTOSIS. Consent: 01/25/24 Date: 02/03/2024 Time: 10:12 AM Study Day: Screening Period Reason for call: Netta Galvin unable to be obtained with lab draw 01/27 but needed prior to 02/10 for screening. Spoke w/ Ashley and explained unable to have required lab; would she be willing to get it done locally in the next 2 days? She can go to [facility], best time would be tomorrow 10-12 range. RN called [facility] lab scheduling services at [phone]; had to leave message with request. RN will contact patient once appointment is made. Addendum: RN Called [facility] again at 3 PM since they'd not returned earlier call and still no answer. RN called Ashley back; website states they will take walk- ins so please just go tomorrow and call us if any trouble. Ashley repeated instructions correctly. Plan: Pt will continue in screening for study [id number] per protocol. Next visit 02/11/24 as scheduled for C1D1 presuming screening results in enrollment. Discussed all w/ Dr. Truong: going to obtain this result in case central review of diagnostics isdelayed; if that is the only remaining element we are allowed to extend the screening window. Pt understands and agrees with plan and knows she can call the clinic with any further questions orconcerns. documented in this encounter Plan of Treatment Upcoming Encounters Date Type Department Care Team (Late st Contact Info) Description 03/02/2024 8:30 AM EST Office [place] [address] Sarah Bah APRN [facility] [place] [address] 03/04/2024 7:00 AM EST Appointment Mammography/[place] [phone] Edmund Truong MD [facility] DR HEMATOLOGY [place] [address] 03/07/2024 10:45 AM EST Laboratory Appointment Lab at [facility] Hematology Oncology [address] [place], [place] [id number] 03/07/2024 11:30 AM EST Office Visit Hematology and Oncology at [place] [phone] Bennett Turner, RN 03/07/2024 11:30 AM EST Office Visit Hematology and Oncology at [address] Edmund Truong MD [facility] DR HEMATOLOGY [place] [address] 03/10/2024 8:15 AM EST Laboratory Appointment Lab at [facility] Hematology Oncology [address] [place], [place] [phone] 03/10/2024 8:30 AM EST Scheduled View Only Hematology and Oncology at [place] [address] 03/10/2024 9:00 AM EST Office Visit Hematology and Oncology at [address] Omid Degroot MD [facility] [place] [address] 03/10/2024 9:00 AM EST Office Visit Hematology and Oncology at [place] [phone] Bennett Turner, RN 03/25/2024 9:30 AM EST Tech Visit Vascular Lab at [place] [phone] Carlton Higgins, RVT 03/25/2024 10:15 AM EST Office Visit Vascular Surgery at [place] [phone] Tomy Raymond MD [facility] [place] [address] documented as of this encounter Visit Diagnoses Not on filedocumented in this encounter Care Teams Textile Screen Maker Relationship Specialty Start Date End Date Estrella Mckay APRN [place] [address] PCP - General Family Medicine 12/14/23 documented as of this encounter
--- OUTSIDE RECORDS SUMMARY | 2024-02-29 15:52 | XMS_ITS | Encounter Summary ---
Author Organization [facility] [place] [address] Care Team Providers Care Agronomy Internship Name Role Phone Estrella Mckay APRN Primary Care Provider [phone] Encounter Details Date Type Department Care Team (Late st Contact Info) Description 01/28/2024 2:30 PM EDT Office Visit Hematology [place] [phone] Bennett Turner RN Systemic mastocytosis Social History Tobacco Use Types Packs/Day Years Used Date Smoking Tobacco: Former Cigarettes 1 30 Q uit: 2012 Smokeless Tobacco: Never Comments:3/4TH PK A DAY Alcohol Use Standard Drinks/Week Comments No 0 (1 standard drink = 0.6 oz pur e alcohol) [facility] Utilities Answer Date Recorded In the past 12 months has Admittor, gas, oil, or water [employer] threatened to shut off services in your [...] living in a prison (including now)? No 02/05/2024 DH IPV Inpatient Questions Answer Date Recorded Does Anyone Try to Keep You From Having Contact with Others or Doing Things Outside Your Home? no 02/09/2024 Feels Threatened by Someone no 08/2023 Feels Unsafe at Home or Work/School no 02/09/2024 Physical Signs of Abuse Present no 02/09/2024 Sex and Gender Information Value Date Recorded Sex Assigned at Not on file Gender Identity Not on file Sexual Orientation Not on file documented as of this encounter Progress Notes * Bennett Turner RN - 01/28/2024 2:30 PM EDT RESEARCH NURSE OFFICE NOTE SCREENING 01/28/24 [id number]: ([facility]) A MULTI-PART, RANDOMIZED, DOUBLE-BLIND, PLACEBO-CONTROLLED PHASE 2 CLINICAL STUDY OF THE SAFETY AND EFFICACY OF [id number] IN SUBJECTS WITH NONADVANCED SYSTEMIC MASTOCYTOSIS. Consent: 01/25/24 CHIRAG Kee presented to the hem-onc clinic today along with her , Karthik, for her screening visit per protocol [id number]. She was seen by Dr. Degroot and Dr. Truong. Please see their notes as well. She is alert and oriented and pleasant. She denies DINH, fevers, chills. She reports fatigue which affects her work. She reports drenching night sweats and sweats during the day for ~ 5 years, progressing in severity. Denies rhinorrhea or sore throat. Denies mouth sores. Denies SOB or chest pain. Report feeling like her heart is racing about twice monthly. She reports this goes away on it's own after resting. Denies dysguesia, dysphasia, dyspepsia, Reports nausea and vomiting is intermittent. Shereports that on Thursday and Thursday she had good days without nausea but with explosive, watery diarrhea x 4 each day. On Thursday she had a bad day with nausea all day, vomiting x 1 and has not moved her bowels since Thursday. Has been able to eat small amounts intermittently, but no normal meals. The GI symptoms have been ongoing for years and had been attributed to irritable bowel disease. She started taking Pepcid, Zyrtec and Singulair on 01/07/24 and reports that her GI symptoms have been better, but not normal (as above). She met with a employment representative today. Please see dietary note. She deniesdysuria, hematuria, urinary frequency or urgency. Denies any skin rashes. Skin dry. Photos declined. Skin bx declined. Denies neuropathy. Reports all over body myalgias or arthralgias making it difficult to get OOB in the am. She reports taking Tylenol 1000 mg every am for the pain and discomfort. STUDY ASSESSMENTS COMPLETED MRI Labs including Lab Kit for Central processing ConMeds/Allergies/ECOG VS/Wt/Ht Physical Exam AE's EKG DXA scan deferred due to scheduling issues. Will plan to schedule for later date. MEDICATION DISPENSED None SUPPLIES DISPENSED Wallet card [facility] Clinical Trial Contact [facility] When to Contact my Care Team AE/SIDE EFFECT MONITORING # AE Grade CTCAE (v.5 ) Start Date Stop Date NOTES 1 Nausea 1 baseline intermittent 2 Vomiting 1 baseline intermittent 3 Diarrhea 1 baseline intermittent 4 Constipation 1 baseline intermittent 5 Fatigue 2 baseline 6 myalgias 2 baseline 7 arthralgia 2 baseline 8 Hyperhidrosis 2 baseline X at least 5 years EDUCATION PROVIDED Patient has been advised to contact this office or his research nurse for any questions, concerns, of new or worsening symptoms if they should happen prior to his next scheduled visit. Reviewed and provided [facility] with reasons to call and reviewed who to call if after hours, on weekends or holidays. Ashley Kee verbalized understanding. Patient understands that she should continue to complete the daily questionnaires on her phone. Brandon she has been doing this daily. PLAN 1. Patient agrees to continue on screening for study [id number]. 2. Will plan to start on treatment on 02/11/24 pending eligibility confirmation. 3. Next visit to include: labs, office visit, and drug dispense. 4. Will plan for DXA scan when we can get it scheduled. Patient verbalizes understanding of, and agreement with, plan. documented in this encounter Plan of Treatment Upcoming Encounters Date Type Department Care Team (Late st Contact Info) Description 03/02/2024 8:30 AM EST Office Visit Vascular Surgery at [place] [address] Sarah Bah APRN [facility] [place] [address] 03/04/2024 7:00 AM EST Appointment Mammography/DXA at [place] [address] Edmund Truong MD [facility] DR HEMATOLOGY [place] [address] 03/07/2024 10:45 AM EST Laboratory Appointment Lab at [facility] Hematology Oncology [address] [place], [place] [phone] 03/07/2024 11:30 AM EST Office Visit Hematology and Oncology at [place] [address] Bennett Turner RN 03/07/2024 11:30 AM EST Office Visit Hematology [place] [address] Edmund Truong MD [facility] DR HEMATOLOGY [place] [address] 03/10/2024 8:15 AM EST Laboratory Appointment Lab at [facility] Hematology Oncology [address] [place] [phone] 03/10/2024 8:30 AM EST Scheduled View Only Hematology [place] [address] 03/10/2024 9:00 AM EST Office Visit Hematology and Oncology at [place] [phone] Omid Degroot MD [facility] [place] [address] 03/10/2024 9:00 AM EST Office Visit Hematology and Oncology at [place] [address] Bennett Turner, RN 03/25/2024 9:30 AM EST Tech [place] [address] Carlton Higgins, RVT 03/25/2024 10:15 AM EST Office [place] [address] Tomy Raymond MD [facility] [place] [address] documented as of this encounter Visit Diagnoses Diagnosis Systemic mastocytosis Malignant mast cell tumors, unspecified site, extranodal and solid organ sites documented in this encounter Care Teams Agronomy Internship Relationship Specialty Start Date End Date Estrella Mckay, [place] [place] [address] PCP - General Family Medicine 12/14/23 documented as of this encounter
--- OUTSIDE RECORDS SUMMARY | 2024-02-29 15:52 | XMS_ITS | Encounter Summary ---
Author Organization [facility] [place] [address] Care Team Providers Care Food And Beverage Operations Manager Name Role Phone Estrella Mckay APRN Primary Care Provider [phone] Encounter Details Date Type Department Care Team (Latest Contact Info) Description 02/09/2024 Travel Social History Tobacco Use Types Packs/Day Years Used Date Smoking Tobacco: Former Cigarettes 1 30 Q uit: 2012 Smokeless Tobacco: Never Comments:3/ PK A DAY Alcohol Use Standard Drinks/Week Comments No 0 (1 standard drink = 0.6 oz pur e alcohol) [facility] Utilities Answer Date Recorded In [...] time in the past 12 m [facility], were you homeless or living in a ch[facility] (including now)? No 02/05/2024 [facility] Inpatient Questions Answer Date Recorded Does [...] AM EST Office Visit Vascular Surgery at [address] Sarah Bah, PARAM [facility] [place] [address] 03/04/2024 7:00 AM EST Appointment Mammography/[place] [address] Edmund Truong MD [facility] DR [place] [address] 03/07/2024 10:45 AM EST Laboratory Appointment Lab at [facility] [place] [address] [place] [phone] 03/07/2024 11:30 AM EST Office Visit Hematology [place] [phone] Bennett Turner RN 03/07/2024 11:30 AM EST Office Visit Hematology [place] [phone] Edmund Truong MD [facility] DR [place] [address] 03/10/2024 8:15 AM EST Laboratory Appointment Lab at [facility] [place] On[place] [address] [place] [address] 03/10/2024 8:30 AM EST Scheduled View Only Hematology and Oncology at [place] [address] 03/10/2024 9:00 AM EST Office Visit Hematology and Oncology at [place] [address] Omid Degroto MD [facility] [place] [address] 03/10/2024 9:00 AM EST Office Visit Hematology and Oncology at [place] [address] Bennett Turner, RN 03/25/2024 9:30 AM EST Tech Visit Vascular Lab at [place] [address] Carlton Higgins, RVT 03/25/2024 10:15 AM EST Office Visit Vascular Surgery at [place] [address] Tomy Raymond MD [facility] [place] [address] documented as of this encounter Visit Diagnoses Not on filedocumented in this encounter Care Teams Food And Beverage Operations Manager Relationship Specialty Start Date End Date Estrella Mckay, DIRECTOR [place] [address] PCP - General Family Medicine 12/14/23 documented as of this encounter
--- OUTSIDE RECORDS SUMMARY | 2024-02-29 15:52 | XMS_ITS | Encounter Summary ---
Author Organization [facility] Address [facility] [place] [address] Care Team Providers Care Extractions Technician Name Role Phone Estrella Mckay APRN Primary Care Provider [phone] Reason for Visit * Reason Comments Follow-up Encounter Details Date Type Department Care Team (Late st Contact Info) Description 01/28/2024 2:30 PM EDT Office Visit Hematology [place] [address] Edmund Truong MD [facility] DR HEMAT[place] [address] Systemic mastocytosis; Research study patient Social History Tobacco Use Types Packs/Day Years Used Date Smoking Tobacco: Former Cigarettes 1 30 Q uit: 2012 Smokeless Tobacco: Never Comments:3/4TH PK A DAY Alcohol Use Standard Drinks/Week Comments No 0 (1 standard drink = 0.6 oz pur e alcohol) [facility] Inpatient Questions Answer Date [...] as of this encounter Progress Notes * Edmund Truong MD - 01/28/2024 2:30 PM EDT HEMATOLOGY ATTENDING (PI of Clinical Trial) Assessment and Plan # 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 The major criterion isdemonstration of multifocal, dense infiltrates of mast cells (greater than or equal to 15 mast cells in aggregate) detected in sections of bone marrow and or other extracutaneous organs. There are 4 minor criteria: 1) biopsy sections of BM or other extracutaneous organs, >25% of the mast cells in the infiltrate are spindle shaped or have atypical morphology or, of all mast cells in BM aspirate smears, >25% are immature or atypical. 2) Detection of an activating point mutation at codon 816 of KIT in bone marrow, blood, or other extracutaneous organ. 3) Mast cells in bone marrow, blood, or other extracutaneous organ express CD2 and/or CD25 in addition to normal mast cell markers. 4) Serum total tryptase persistently exceeds 20 ng/mL (unless there is an associated clonal myeloiddisorder, in which case this parameter is not valid). [Blood (2013) 121 (16): 2287-2268.] Ashley has met the major criteria of systemic mastocytosis and appears to meet several, potentially all, minor criteria. Regarding B, biopsy reflected less than 30% mast cells and tryptase returned >200 from 01/27 lab draw, and she has no known hepatomegaly or splenomegaly (though confirming recent imaging reports would be helpful here). Bone marrow, despite not being criteria for SM- CHANDAN, did not show dysplasia and she has not had persistent elevation in other cell lines. Regarding C findings, she lacks significant cytopenias, hepatomegaly or evidence of hepatic dysfunction. Despite GI symptoms, she has no clear evidence of malabsorption. Classification of her disease is ISM, or SSM, and central review by clinical trial sponsor will help classify. Patient is completing required pre-study questionnaire to calculate MAS score and will be deemed eligible upon completing that and scoring MAS >26. Plan to start treatment 02/10 if eligible, and we can modify based on sponsor review, availability of appts, etc. I reviewed my impression and recommendations with Ashley Kee and answered all the questions.. Ptagreed with the plan. Edmund Truong MD electrical electronics technician Section of Hematology/Oncology [facility] Scribe Attestation: Documentation assistance was provided by meKimmie a scribluci. Dr. Edmund Truong MD obtained and performed the history, physical exam, and medical decision-making elements that were entered into the chart. Signed by Kimmie Posey, 01/28/24 at 2:58 PM. Provider Attestation: Documentation assistance was provided by the scribe, Kimmie Posey. I was present during the time the encounter was recorded. The information recorded by the scribe was done at my direction and has been reviewed and validated by me. Signed by Dr. Edmund Truong MD, 01/28/24 at 2:58 PM. CC: PARAM Soto Eli B documented in this encounter Plan of Treatment Upcoming Encounters Date Type Department Care Team (Late st Contact Info) Description 03/02/2024 8:30 AM EST Office Visit [place] [phone] Sarah Bah APRN [facility] [place] [address] 03/04/2024 7:00 AM EST Appointment Mammography/[place] [phone] Edmund Truong MD [facility] DR HEMAT[place] [address] 03/07/2024 10:45 AM EST Laboratory Appointment Lab at [facility] Hematology Oncology [address] [place] [phone] 03/07/2024 11:30 AM EST Office Visit Hematology [place] [phone] Bennett Turner, RN 03/07/2024 11:30 AM EST Office Visit Hematology and Oncology at [place] [phone] Edmund Truong MD [facility] DR [place] [address] 03/10/2024 8:15 AM EST Laboratory Appointment Lab at [facility] Hematology Oncology [address] [place] [phone] 03/10/2024 8:30 AM EST Scheduled View Only Hematology and Oncology at [place] [phone] 03/10/2024 9:00 AM EST Office Visit Hematology and Oncology at [place] [phone] Omid Degroot MD [facility] [place] [address] 03/10/2024 9:00 AM EST Office Visit Hematology and Oncology at [place] [phone] Bennett Turner RN 03/25/2024 9:30 AM EST Tech Visit Vascular Lab at [place] [phone] Carlton Higgins, RVT 03/25/2024 10:15 AM EST Office Visit [place] [address] Tomy Raymond MD [facility] [place] [address] documented as of this encounter Visit Diagnoses Diagnosis Systemic mastocytosis Malignant mast cell tumors, unspecified site, extranodal and solid organ sites Research study patient Reserved for inherently not codable concepts WITHOUT codable children documented in this encounter Care Teams Extractions Technician Relationship Specialty Start Date End Date Estrella Mckay, EARTH MOVER [address] [place] [address] PCP - General Family Medicine 12/14/23 documented as of this encounter
--- OUTSIDE RECORDS SUMMARY | 2024-02-29 15:52 | XMS_ITS | Encounter Summary ---
Author Organization [facility] Address [facility] [place] [address] Care Team Providers Care Foot Tender Name Role Phone Estrella Mckay APRN Primary Care Provider [phone] Reason for Visit * Reason Comments Follow-up Encounter Details Date Type Department Care Team (Late st Contact Info) Description 01/28/2024 2:30 PM EDT Office Visit Hematology [place] [address] Omid Degroot MD [facility] [place] [address] Systemic mastocytosis Social History Tobacco Use Types Packs/Day Years Used Date Smoking Tobacco: Former Cigarettes 1 30 Q uit: 2012 Smokeless Tobacco: Never Comments:3/4TH PK A DAY Alcohol Use Standard Drinks/Week Comments No 0 (1 standard drink = 0.6 oz pur e alcohol) IPV Inpatient Questions Answer Date Recorded Does Anyone Try to Keep You From Having Contact with Others or Doing Things Outside Your Home? no 12/15/2023 Feels Threatened by Someone no 12/05 Feels Unsafe at Home or Work/School no 12/15/2023 Physical Signs of Abuse Present no 12/15/2023 Sex and Gender Information Value Date Recorded Sex Assigned at Not on file Gender Identity Not on file Sexual Orientation Not on file documented as of this encounter Progress Notes * Omid Degroot MD - 01/28/2024 2:30 PM EDT Images from the original note were not included. HEMATOLOGY CONSULTATION VISIT NOTE DATE OF VISIT : 01/29/24 REFERRING PROVIDER: Omid Degroot Reason for Visit: Systemic Mastocytosis HPI Ashley Kee is a 63 y.o. female with PMH of colonic polyps, recurrent abdominal pain, who we are following for her mastocytosis. HPI from initial visit is included below: She was in her usual state of health and her PCP obtained a CXR and later CT scan due to her smoking history. These studies showed significant bone loss in her chest She had several studies including nuclear studies. She reports that ibuprofen and sun exposure gives her a rash. She does report she also gets sick toher stomach. She has belly problems and alcohol triggers it so she does not drink at all. She reports significant abdominal pain and diarrhea; she was diagnosed with colitis but there was nothing they could do about it. She has undergone 4 colonoscopies in five years. The first one, they found a pre-cancerous polyps. Due to her ongoing abdominal symptoms, she underwent an additional 4 colonoscopies and has had an additional pre-cancerous polyps. She had COVID 4 times and did have strong reaction to COVID shots (arm pain, symptoms). On ROS, she does endorse fatigue, all the time, which she attributes to work. She feels this has been worse over the last year. 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 She can work 15+ hour days doing this and she can sometimes do two shifts in a day. Data Review from EMR As per referring documentation: CT scan performed 05/28/2023 showed diffuse sclerotic mottling of the bone suspicious for metastatic disease. Bone scan should be obtained for further evaluation. Her insurance denied PET scan and so bone scan was ordered instead. This was done 06/17/2023 and it showed no abnormal findings to suggest metastatic disease. The report further detailed that in reviewing the abnormal appearance of the bones on recent chest CT scan, if there is suspicion for multiple myeloma, then MRI of the spinal column would be recommended. The reason for this is that myeloma can often exhibit false negative study on nuclear medicine imaging. She subsequently underwent SPEP and UPEP which per report were done 06/24/2023 and returned nondiagnostic. A follow-up CT chest abdomen and pelvis done 08/19/2023 reported a diffuse mottled pattern of the entire skeleton suspicious for myelodysplastic disease. This involves all bones within the [id number] of the study. This has significantly progressed when compared to prior CT scan of 2016 Bone biopsy was done under CT guidance on 10/15/2023 revealing the results summarized separately below that has prompted this referral. Interval Update Ashley returns to follow-up on her confirmed diagnosis of Systemic Mastocytosis. She is accompanied by her and we had a shared visit with NEYDA Turner and Dr. Truong to discuss possible candidacy in [id number] protocol. She has been completed a detailed log of her symptoms and remains on the pharmacological regimen we have prescribed. She continues to have GI symptoms, notably bouts of diarrhea without nausea, but one episode of vomiting. Zyrtec and singular may be helping her symptoms though she's not as sure about pepcid. She's had no reported episodes of angioedema or swelling. She's had no rashes. She takes acetaminophen 1000 mg QAM for arthralgias and myalgias. She has had a very long day today and has been here from substance abuse therapist for MRI, additional testing, and control room helper visits. Dr. Truong and NEYDA Grant reviewed study assessment completed and clarification from radiology wehave obtained to submit her information to the trial sponsor for consideration. She understands that the trial would be a double blinded trial and that we would not be checking tryptase levels locally, but that they would be sent to the trial sponsors. Problem List Patient Active Problem List Diagnosis Code Back pain M54.9 Right leg pain M79.604 Thoracic Outlet Syndrome Surgical Hx Past Surgical History: Procedure Laterality Date CT GUIDED BIOPSY BONE(EXTREMITIES/PELVIS) 10/15/2023 CT Guided Biopsy Bone (Extremities/Pelvis) 10/15/2023 Charissa Alcala MD [facility] RAD CT SCAN PRO DIAGNOSTIC BONE MARROW BIOPSIES & ASPIRATIONS N/A 12/15/2023 ([facility] MSURG) BONE MARROW BIOPSY AND ASPIRATION; DIAGNOSTIC (WRVU 1.44) performed by Bismark Degroot MD at [facility] OSC Colonoscopies Bilateral ileofemoral bypass Cholecystectomy Hysterectomy Right shoulder surgeries x 2 (once had rib removed) Medications I reviewed the medication list in the eDH with the pt Current Outpatient Medications Medication Instructions acetaminophen (TYLENOL) 1,000 mg, Oral, EVERY 6 HOURS PRN cetirizine (ZYRTEC) 10 mg, Oral, DAILY EPINEPHrine 0.3 mg/0.3 mL Auto-Injector Inject 0.3 mL IM once as needed for allergic reaction (Throat tight, difficulty breathing). Call 911 as directed. famotidine (PEPCID) 20 mg, Oral, 2 TIMES DAILY montelukast (SINGULAIR) 5 mg, Oral, NIGHTLY Allergies/ADR I reviewed the allergies listed in the eDH with the pt Allergies Allergen Reactions Percocet [Oxycodone-Acetaminophen] Nausea And Vomiting Ciprofloxacin Other (See Comments) Burning with IV administration, needed benadryl Ibuprofen Hives Morphine Sulfate Nausea And Vomiting Nsaids (Non-Steroidal Anti-Inflammatory Drug) Hives Social Hx Social History Socioeconomic History Marital status: Spouse [...] since quittin.8 Smokeless tobacco: Never Tobacco comments: PK A DAY Substance and Sexual Activity Alcohol use: No Drug use: No Sexual activity: Not on file Other Topics Concern Not on file Social History Narrative Not on file Social Determinants of Health Financial Resource Strain: Not on file Food Insecurity: Not on file Transportation Needs: Not on file Physical Activity: Not on file Intimate Partner Violence: Not At Risk (12/15/2023) IPV Inpatient Questions Prevent Contact with Others: no Feels Threatened by Someone: no Feels Unsafe at Home: no Physical Signs of Abuse Present: no Housing Stability: Not on file 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 Physical Exam Vitals See other encounters for vitals data ECOG - ecog ps: 1 - Symptomatic but completely ambulatory Constitutional: Well-appearing woman in no acute distress. Skin: No bruises or petechiae seen. One area of dryness noted on one knuckle, but no other significant lesions or rashes noted. No urticaria noted. HEENT: Atraumatic. Anicteric sclera. Conjunctivae are without injection or pallor. Moist mucosa. Cardiac: Regular, without murmurs, gallops, or rubs. Respiratory: Lungs are clear to posterior auscultation bilaterally. Abdomen: Soft and non-tender. Normal bowel sounds. Neurologic: Fully alert and oriented; no grossly apparent focal deficits. Labs Recent Results (from the past 336 hour(s)) MRI Abdomen and Pelvis WWO Contrast Collection Time: 01/28/24 6:35 AM Result Value Ref Range WORKSTATION ID [id number] CBC (with Diff) Collection Time: 01/28/24 9:19 AM Result Value Ref Range White Blood Cell 8.91 4.00 - 9.50 x10(3)/mcL Red Blood Cell 4.89 4.00 - 5.21 x10(6)/mcL Hemoglobin 15.2 11.7 - 15.5 g/dL Hematocrit 45.5 35.7 - 45.8 % Mean Cell Volume 93.0 82.6 - 94.4 fL Mean Cell Hemoglobin 31.1 27.1 - 32.0 pg Mean Cell Hemoglobin Concentration 33.4 31.7 - 35.0 g/dL Platelet 276 145 - 357 x10(3)/mcL Mean Platelet Volume 8.5 7.6 - 12.9 fL RDW Standard Deviation 45.7 37.0 - 46.0 fL RDW coefficient of variation 13.5 11.5 - 14.1 % NRBC% auto 0.0 % NRBC Absolute <0.01 <0.01 x10(3)/mcL Neutrophil % 55.1 % Neutrophil Absolute (ANC) - Automated 4.90 1.70 - 6.10 x10(3)/mcL Lymph % 36.9 % Lymph Absolute 3.29 (H) 0.90 - 3.20 x10(3)/mcL Monocyte % 6.3 % Monocyte Absolute 0.56 0.30 - 0.90 x10(3)/mcL Eos % 1.0 % Eos Absolute 0.09 0.00 - 0.40 x10(3)/mcL Basophil % 0.4 % Baso Absolute 0.04 0.00 - 0.10 x10(3)/mcL Immature Gran % 0.3 % Immature Gran Absolute <0.04 0.00 - 0.04 x10(3)/mcL Comprehensive metabolic panel Non-fasting Collection Time: 01/28/24 9:19 AM Result Value Ref Range Glucose 98 65 - 199 mg/dL Blood Urea Nitrogen 7 (L) 8 - 18 mg/dL Creatinine 0.79 0.70 - 1.20 mg/dL Sodium 141 135 - 145 mMol/L Potassium 4.1 3.5 - 5.0 mMol/L Chloride 105 98 - 107 mMol/L Carbon Dioxide 25 22 - 31 mMol/L Anion Gap 11 5 - 15 mMol/L Calcium 9.3 8.5 - 10.5 mg/dL Protein, Total 6.9 6.1 - 8.0 g/dL Albumin 4.1 3.2 - 5.2 g/dL Aspartate Aminotransferase 16 <=30 unit/L Alanine Aminotransferase 15 0 - 30 unit/L Alkaline Phosphatase 99 35 - 105 unit/L Bilirubin, Total 0.2 <=1.3 mg/dL Est Glomerular Filtration Rate - Female 84 mL/min/1.73 m?? Fasting Status No Gamma GT Collection Time: 01/28/24 9:19 AM Result Value Ref Range Gamma Glutamyl Transferase 14 5 - 36 unit/L Uric acid Collection Time: 01/28/24 9:19 AM Result Value Ref Range Uric Acid 4.5 2.5 - 6.5 mg/dL Magnesium Collection Time: 01/28/24 9:19 AM Result Value Ref Range Magnesium 1.04 0.69 - 1.07 mMol/L Phosphorus Collection Time: 01/28/24 9:19 AM Result Value Ref Range Phosphorus 3.8 2.5 - 4.5 mg/dL Lactate Dehydrogenase Collection Time: 01/28/24 9:19 AM Result Value Ref Range Lactate Dehydrogenase 153 110 - 220 unit/L Prothrombin Time Collection Time: 01/28/24 9:19 AM Result Value Ref Range Prothrombin Time 10.9 9.4 - 12.5 sec International Normalization Ratio 1.0 <=4.9 APTT Collection Time: 01/28/24 9:19 AM Result Value Ref Range Partial Thromboplastin Time 30 25 - 37 sec HIV Screen, 4th Generation (MC/CGP/APD/NLH) Collection Time: 01/28/24 9:19 AM Result Value Ref Range HIV Ab/Ag Screen Negative Negative Hepatitis B Surface Antigen Collection Time: 01/28/24 9:19 AM Result Value Ref Range Hepatitis B Surface Antigen Negative Negative Hepatitis B Surface Antibody Collection Time: 01/28/24 9:19 AM Result Value Ref Range Hepatitis B Surface Antibody, Quantitative <3.5 IU/L Hepatitis B Surface Antibody Negative Hepatitis B Core Antibody, IgM Collection Time: 01/28/24 9:19 AM Result Value Ref Range Hepatitis B Core IgM Negative Negative Tryptase Collection Time: 01/28/24 9:19 AM Result Value Ref Range Tryptase >200.0 (H) <=8.4 ng/ml Collagen Type I C-Telopeptide Collection Time: 01/28/24 9:19 AM Result Value Ref Range C-Telopeptide (AUGUST) 474 pg/mL Hepatitis C Antibody with Reflex Collection Time: 01/28/24 9:19 AM Result Value Ref Range Hepatitis C Antibody Negative Negative HCV Reflex Hold Collection Time: 01/28/24 9:19 AM Result Value Ref Range HCV Hold Hold for Add-on Misc Castillo Test-Castillo Collection Time: 01/28/24 9:19 AM Result Value Ref Range Misc Castillo Result (August) SEE COMMENTS EKG 12 Lead Collection Time: 01/28/24 10:13 AM Result Value Ref Range Ventricular rate 70 BPM Atrial Rate 70 BPM P-R Interval 152 ms QRS Duration 136 ms Q-T Interval 446 ms QTC Calculated (Bezet) 481 ms Calculated P [place] 41 degrees Calculated R [place] -125 degrees Calculated T [place] 34 degrees INTERPRETATION Normal sinus rhythm Right bundle branch block Abnormal ECG No previous ECGs available Confirmed by MD Maldonado Jose ([id number]) on 01/28/2024 9:41:09 PM SPEP 06/24/2023 - No monoclonal proteins identified (available care everywhere) Pathology Bone Marrow Aspiration and Biopsy 12/15/2023 Morphology Hypercellular marrow with trilineage hematopoiesis, no increase in blasts and abnormal mast cell aggregates. Flow cytometry supports the diagnostic interpretation. Mast cell aggregates (>15) with spindled forms and CD25 expression are seen. 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 (VAF not reported in EMR info available to us) NGS: No significant gene variants detected, however there were two SNVs: DMNT3A (Tier 3 variant, [id number]) VAF 15.67% JAK2 (Tier 3 variant, [id number]--tflx not canonical variant) VAF 46.32% JAK2, FARTUN, MPL 11/25/2023 NO DELETERIOUS MUTATIONS Bone Biopsy 10/15/2023 DIAGNOSIS A - Bone, left posterior ilium, biopsy: - Systemic mastocytosis (see discussion) Electronically signed by: Spencer VELEZ, PhD, Dimitrios Awad Verified: 10/22/2023 11:53 Dermatopathologist, Bone & Soft Tissue Pathologist Performed at: -[facility] [place], [place] [address] Market Reporter: Alexander Gandara MD, FCAP, CLIA Certificate: [id number] DISCUSSION The biopsy specimen demonstrates histopathologic and immunophenotypic features consistent with a diagnosis of systemic mastocytosis, meeting the World Health Organization (WHO) criteria. Specifically, histologic sections reveal sclerotic cancellous bone with multifocal cellular aggregates of ovoid to spindle-shaped mast cells. These cells are diffusely positive for CD117 (c-Kit) and CD25, and are associated with focal fibrosis. Referral to Hematology/Oncology for comprehensive evaluation and management is strongly recommended. Additionally, molecular testing for KIT mutations can be performed on the current biopsy sample or on subsequently obtained tissue or blood samples. This case has been additional reviewed by Hematopathology for a consensus diagnosis. THIS RESULT REQUIRES PHYSICIAN/A.P.P. FOLLOW UP Colonoscopy 08/24/2023 - Hyperplastic polyps and sessile serrated adenoma Radiology Mammogram 10/09/2023 - No evidence of disease BiRADS 1 MRI abdomen and pelvis wwo contrast 01/27/25 1. Liver and spleen volumes as described [in report, noted to be of normal size]. 2. No suspicious mass lesion or adenopathy on this study. 3. Diffuse fatty infiltration of the liver. 4. Status post cholecystectomy. Assessment and Plan # Systemic Mastocytosis, Indolent vs Smoldering Ashley's case [...] which would raise classification to smoldering mastocytosis]. She is currently undergoing evaluation and tentative plan is for enrollment in [id number] and screening has been completed and submitted to sponsor. Work-up has revealed no findings to suggest smoldering or advanced disease. We have clarified that KIT D617V Castillo assay appears to have a lower threshold of detection for reporting than our assay. Should she successful enroll, hope is to tart treatment 02/11/24. Please see additional documentation from NEYDA Turner and Dr. Truong from this visit. Omid Degroot MD Section of Hematology Chart Readerpower tool repairer [facility] Patient consents to use of [facility] portal for communication of results. CC: PARAM Soto Raphael A documented in this encounter Plan of Treatment Upcoming Encounters Date Type Department Care Team (Late st Contact Info) Description 03/02/2024 8:30 AM EST Office Visit Vascular Surgery at [place] [phone] Sarah Bah APRN [facility] [place] [address] 03/04/2024 7:00 AM EST Appointment Mammography/DXA at [place] [phone] Edmund Truong MD [facility] DR [place] [address] 03/07/2024 10:45 AM EST Laboratory Appointment Lab at [facility] [place]ematology Oncology [address] [place] [phone] 03/07/2024 11:30 AM EST Office Visit Hematology [place] [address] Bennett Turner RN 03/07/2024 11:30 AM EST Office Visit Hematology [place] [address] Edmund Truong MD [facility] DR HEM[place] [address] 03/10/2024 8:15 AM EST Laboratory Appointment Lab at [facility] Hematology Oncology [address] [place] [address] 03/10/2024 8:30 AM EST Scheduled View Only Hematology and Oncology at [place] [address] 03/10/2024 9:00 AM EST Office Visit Hematology and Oncology at [place] [address] Omid Degroot MD [facility] [place] [place] [address] 03/10/2024 9:00 AM EST Office Visit Hematology and Oncology at [place] [address] Bennett Truner, RN 03/25/2024 9:30 AM EST Tech Visit Vascular Lab at [place] [address] Carlton Higgins, RVT 03/25/2024 10:15 AM EST Office Visit Vascular Surgery at [place] [address] Tomy Raymond MD [facility] [place] [address] documented as of this encounter Visit Diagnoses Diagnosis Systemic mastocytosis Malignant mast cell tumors, unspecified site, extranodal and solid organ sites documented in this encounter Care Teams Foot Tender Relationship Specialty Start Date End Date Estrella Mckay, HUMAN CAPITAL [place] [address] PCP - General Family Medicine 12/14/23 documented as of this encounter
--- OUTSIDE RECORDS SUMMARY | 2024-02-29 15:52 | XMS_ITS | Encounter Summary ---
Author Organization [facility] [place] [address] Care Team Providers Care Recreation Adviser Name Role Phone Estrella Mckay APRN Primary Care Provider [phone] Encounter Details Date Type Department Care Team (Late st Contact Info) Description 02/02/2024 Orders Only Hematology [place] [phone] Edmund Truong MD [facility] DR HEMATOLOGY [place] [address] Systemic mastocytosis (Primary Dx) Social History Tobacco Use Types [...] AM EST Office [place] [phone] Sarah Bah APRN [facility] [place] [address] 03/04/2024 7:00 AM EST Appointment Mammography/DXA at [place] [address] Edmund Truong MD [facility] DR HEMATOLOGY [place] [address] 03/07/2024 10:45 AM EST Laboratory Appointment Lab at [facility] Hematology Oncology [address] [place] [address] 03/07/2024 11:30 AM EST Office Visit Hematology and Oncology at [place] [address] Bennett Tunrer RN 03/07/2024 11:30 AM EST Office Visit Hematology and Oncology at [place] [address] Edmund Truong MD [facility] DR HEMATOLOGY [place] [address] 03/10/2024 8:15 AM EST Laboratory Appointment Lab at [facility] [place] [address] 03/10/2024 8:30 AM EST Scheduled View Only Hematology and Oncology at [place] [address] 03/10/2024 9:00 AM EST Office Visit Hematology and Oncology at [place] [address] Omid Degroot MD [facility] [place] [place] [address] 03/10/2024 9:00 AM EST Office Visit Hematology and Oncology at [place] [address] Bennett Turner RN 03/25/2024 9:30 AM EST Tech [place] [address] Carlton Higgins, RVT 03/25/2024 10:15 AM EST Office Visit [place] [phone] Toym Raymond MD [facility] [place] [address] Scheduled Orders Name Type Priority Associated Diagnoses Orde r Schedule Bilirubin Total and Direct Lab Routine Systemic mastocytosis Expected: 02/03/2024 (Approximate), Expires: 08/04/2024 documented as of this encounter Visit Diagnoses Diagnosis Systemic mastocytosis- Primary Malignant mast cell tumors, unspecified site, extranodal and solid organ sites documented in this encounter Care Teams Recreation Adviser Relationship Specialty Start Date End Date Estrella Mckay, NEUROSURGERY SPINE PHYSICIAN Juan Francisco [place] [address] PCP - General Family Medicine 12/14/23 documented as of this encounter
--- OUTSIDE RECORDS SUMMARY | 2024-02-29 15:52 | XMS_ITS | Encounter Summary ---
Author Organization [facility]ly [facility], Later [facility] Address [facility] [place] [address] Care Team Providers Care Primary Montessori Teacher Name Role Phone Estrella Mckay APRN Primary Care Provider [phone] Encounter Details Date Type Department Care Team (Latest Contact Info) Description 01/28/2024 11:30 AM EDT Laboratory Appointment Lab at [facility] [place] On[place] [address] [place] [phone] Systemic mastocytosis Social History Tobacco Use Types Packs/Day Years Used Date Smoking Tobacco: Former Cigarettes 1 30 Q uit: 2013 Smokeless Tobacco: Never Comments:3/4TH PK A DAY Alcohol Use Standard Drinks/Week Comments No 0 (1 standard drink = 0.6 oz pur e alcohol) [facility] Inpatient Questions Answer Date Recorded Does Anyone [...] AM EST Office Visit [phone] Sarah Bah APRN [facility] [place] [place] [address] 03/04/2024 7:00 AM EST Appointment Mammography/DXA at [place] [address] Edmund Truong MD [facility] [address] HEMATOLOGY [place] [address] 03/07/2024 10:45 AM EST Laboratory Appointment Lab at [facility] Hematology Oncology [address] [place] [address] 03/07/2024 11:30 AM EST Office Visit Hematology and Oncology at [place] [address] Bennett Turner RN 03/07/2024 11:30 AM EST Office Visit Hematology and Oncology at [place] [address] Edmund Truong MD [facility] [address] HEMATOLOGY [place] [address] 03/10/2024 8:15 AM EST Laboratory Appointment Lab at [facility] Hematology Oncology [address] [place] [address] 03/10/2024 8:30 AM EST Scheduled View Only Hematology and Oncology at [place] [address] 03/10/2024 9:00 AM EST Office Visit Hematology and Oncology at [place] [address] Omid Degroot MD [facility] [place] [address] 03/10/2024 9:00 AM EST Office Visit Hematology and Oncology at [place] [phone] Bennett Turner RN 03/25/2024 9:30 AM EST Tech Visit Vascular Lab [place] [address] Carlton Higgins, RVT 03/25/2024 10:15 AM EST Office Visit [place] [phone] Tomy Raymond MD [facility] [place] [place] [address] Pending Results Name Type Priority Associated Diagnoses Date /Time DARREN Specimens Panel Order Lab STAT Systemic mastocytosis 01/28/2024 9:19 AM EDT DARREN Blood Sample Lab STAT Systemic mastocytosis 01/28/2024 9:19 AM EDT documented as of this encounter Procedures Procedure Name Priority Date/Time Associated Diagnosis Comments HCV REFLEX HOLD STAT 01/28/2024 9:19 AM EDT Systemic mastocytosis HEPATITIS C ANTIBODY WITH REFLEX (PERFORMABLE) STAT 01/28/2024 9:19 AM EDT Systemic mastocytosis HEP C AB WITH REFLEX STAT 01/28/2024 9:19 AM EDT Systemic mastocytosis [facility] TEST Routine 01/28/2024 9:19 AM EDT COLLAGEN TYPE I C-TELOPEPTIDE STAT 01/28/2024 9:19 AM EDT Systemic mastocytosis [facility] TEST-[facility]O Routine 01/28/2024 9 :19 AM EDT TRYPTASE STAT 01/28/2024 9:19 AM EDT Systemic mastocytosis HEPATITIS B CORE ANTIBODY, IGM STAT 01/28/2024 9:19 AM EDT Systemic mastocytosis HIV SCREEN, 4TH GENERATION ([facility]/CGP/APD/NLH) STAT 01/28/2024 9:19 AM EDT Systemic mastocytosis [...] STAT 01/28/2024 9:19 AM EDT Systemic mastocytosis documented in this encounter Results * [facility] Test (01/28/2024 9:19 AM EDT) [facility] Result SEE NOTE 02/03/20 24 1:42 AM EDT REF LAB [facility] Comment: Test name ? Result Flag Units ??RefIntvl ?? Procollagen I Intact N-Terminal Propep ?44 ?ug/L ? Premenopausal: ??20 - 101 ug/L Postmenopausal: 16 - 96 ug/L Performed By: [address] [place] [address] Piece Maker: Clark Arshad MD, PhD CLIA Number: [id number] Blood Venipuncture / Unknown 01/28/2024 9:19 AM EDT 01/28/2024 9:20 AM EDT Edmund Truong MD LAB SEND OUT ORDER MARILIN REF LAB [address] * [facility] Test-Castillo (01/28/2024 9:19 AM EDT) [facility] Result (May) SEE COMMENTS 01/29/2024 5:46 PM EDT REF LAB [facility] Comment: Test ?Result ? Flag ??Unit ?? RefValue Osteocalcin, S ?25 ? ng/mL ??9 - ?Test Performed by: ?[facility] ?[address] [place] [address] ?Manager Inspection: Felipe Arroyo Ph.D.; CLIA# [id number] Blood Venipuncture / Unknown 01/28/2024 9:19 AM EDT 01/28/2024 9:20 AM EDT Edmund Truong MD LAB SEND OUT ORDER MARILIN REF LAB [place] [address] [place] [address], [facility] * HCV Reflex Hold (01/28/2024 9:19 AM EDT) Pathologist [facility] HCV Hold Hold for Add-on 01/28/2024 11:01 AM EDT [facility] Blood VENOUS BLOOD SPECIMEN / Unknown Venipuncture / Unknown 01/28/2024 9:19 AM EDT 01/28/2024 9:19 AM EDT Edmund Truong MD CHEMISTRY ORDERABL ES Performing Organization Address [facility] Co de Phone Number [facility] [place] [address] * Hepatitis C Antibody with Reflex (01/28/2024 9:19 AM EDT) [facility] Hepatitis C Antibody Negative Negative 01/28/2024 10:20 AM EDT [facility] Blood VENOUS BLOOD SPECIMEN / Unknown Venipuncture / Unknown 01/28/2024 9:19 AM EDT 01/28/2024 9:19 AM EDT Edmund Truong MD CHEMISTRY ORDERABL ES Performing Organization Address City/[facility] Co de Phone Number [facility] [place] [address] * Collagen Type I C-Telopeptide (01/28/2024 9:19 AM EDT) Pathologist [facility] C-Telopeptide (AUGUST) 474 pg/mL 01/29/2024 7:44 PM EDT REF LAB [facility] Comment: REFERENCE VALUE [phone] (18-29 y) 150-635 (30-39 y) 131-670 (40-49 y) [phone] (50-59 y) 171-970 (60-69 y) 152-858 (>70 y) 136-689 (Premenopausal) [phone] (Postmenopausal) Flagging is based on the age-specific reference interval and not menopausal status. Blood VENOUS BLOOD SPECIMEN / Unknown Venipuncture / Unknown 01/28/2024 9:19 AM EDT 01/28/2024 9:19 AM EDT Narrative REF LAB [place] - 01/29/2024 7:44 PM EDT Test Performed by: [place] [address] Manager Inspection: Felipe Arroyo Ph.D.; CLIA# [id number] Edmund Truong MD LAB SEND OUT ORDER MARILIN Performing Organization Address [facility] de Phone Number REF LAB [address] * (ABNORMAL) Tryptase (01/28/2024 9:19 AM EDT) [facility] Tryptase >200.0(H) <=8.4 ng/ml 01/29/2024 10:19 AM EDT [facility] Blood VENOUS BLOOD SPECIMEN / Unknown Venipuncture / Unknown 01/28/2024 9:19 AM EDT 01/28/2024 9:19 AM EDT Edmund Truong MD CHEMISTRY ORDERABL ES Performing Organization Address City/[facility]/ZIP Co de Phone Number [facility] [place] [address] * Hepatitis B Core Antibody, IgM (01/28/2024 9:19 AM EDT) Pathologist [facility] Hepatitis B Core IgM Negative Negative 01/28/2024 10:20 AM EDT [facility] Blood VENOUS BLOOD SPECIMEN / Unknown Venipuncture / Unknown 01/28/2024 9:19 AM EDT 01/28/2024 9:19 AM EDT Edmund Trunog MD CHEMISTRY ORDERABL ES Performing Organization Address [facility] Co de Phone Number [facility] [place] [address] * Hepatitis B Surface Antibody (01/28/2024 9:19 AM EDT) Hepatitis B Surface Antibody, Quantitative <3.5 IU/L 01/28/2024 1:03 PM EDT [facility] Comment: Unvaccinated: < 8.5 IU/L Vaccinated: >= 11.5 IU/L Hepatitis B Surface Antibody Negative 01/28/2024 1:03 PM EDT [facility] Comment: Patient is presumed to be not vaccinated or immune to HBV infection. Expected Results: Vaccinated: Positive Unvaccinated: Negative Blood VENOUS BLOOD SPECIMEN / Unknown Venipuncture / Unknown 01/28/2024 9:19 AM EDT 01/28/2024 9:19 AM EDT Edmund Truong MD CHEMISTRY ORDERABL ES Performing Organization Address [facility] Co de Phone Number [facility] [place] [address] * Hepatitis B Surface Antigen (01/28/2024 9:19 AM EDT) Hepatitis B Surface Antigen Negative Negative 01/28/2024 10:20 AM EDT [facility] Blood VENOUS BLOOD SPECIMEN / Unknown Venipuncture / Unknown 01/28/2024 9:19 AM EDT 01/28/2024 9:19 AM EDT Edmund Truong MD CHEMISTRY ORDERABL ES Performing Organization Address City/[facility]/ZIP Co de Phone Number [facility] [place] [address] * HIV Screen, 4th Generation ([facility]/CGP/APD/NLH) (01/28/2024 9:19 AM EDT) HIV Ab/Ag Screen Negative Negative 01/28/2024 10:20 AM EDT [facility] Comment:Low Risk of HIV Infe ction. Blood VENOUS BLOOD SPECIMEN / Unknown Venipuncture / Unknown 01/28/2024 9:19 AM EDT 01/28/2024 9:19 AM EDT Narrative [facility] - 01/28/2024 10:20 AM EDT This 4th Generation HIV test screens for the presence of the HIV-1 p24 antigen as well as antibodies reactive against HIV-1 and HIV-2. A negative screen does not rule out an acute HIV infection. If acute HIV infection is suspected ??testing should be repeated in 2 - 3 weeks or HIV nucleic acid testing performed. Edmund Truong MD CHEMISTRY ORDERABL ES Performing Organization Address [facility] Co de Phone Number [facility] [place] [address] * APTT (01/28/2024 9:19 AM EDT) [facility] Partial Thromboplastin Time 30 25 - 37 sec 01/28/2024 9:45 AM EDT [facility] Comment: The PTT is NOT appropriate for heparin monitoring. Use the Anti-Xa level for heparin monitoring (HEP UFH) or LMWH monitoring (HEP LMW). A PTT less than 37 seconds generally indicates adequate hemostasis. Blood VENOUS BLOOD SPECIMEN / Unknown Venipuncture / Unknown 01/28/2024 9:19 AM EDT 01/28/2024 9:19 AM EDT Edmund Truong MD HEMATOLOGY ORDERAB LES Performing Organization Address [facility] Co de Phone Number [facility] [place] [address] * Prothrombin Time (01/28/2024 9:19 AM EDT) [facility] Prothrombin Time 10.9 9.4 - 12.5 sec 01/28/2024 9:45 AM EDT [facility] International Normalization Ratio 1.0 <=4.9 01/28/2024 9:45 AM EDT [facility] Comment: An [...] 01/28/2024 9:19 AM EDT Edmund Truong MD HEMATOLOGY ORDERAB LES Performing Organization Address [facility] Co de Phone Number [facility] [place] [address] * Lactate Dehydrogenase (01/28/2024 9:19 AM EDT) Lactate Dehydrogenase 153 110 - 220 unit/L 01/28/2024 10:09 AM EDT [facility] Blood VENOUS BLOOD SPECIMEN / Unknown Venipuncture / Unknown 01/28/2024 9:19 AM EDT 01/28/2024 9:19 AM EDT Edmund Truong MD CHEMISTRY ORDERABL ES Performing Organization Address [facility] Co de Phone Number [facility] [place] [address] * Phosphorus (01/28/2024 9:19 AM EDT) Phosphorus 3.8 2.5 - 4.5 mg/dL 01/28/2024 10:09 AM EDT [facility] Blood VENOUS BLOOD SPECIMEN / Unknown Venipuncture / Unknown 01/28/2024 9:19 AM EDT 01/28/2024 9:19 AM EDT Edmund Truong MD CHEMISTRY ORDERABL ES Performing Organization Address [facility]/ZIP Co de Phone Number [facility] [place] [address] * Magnesium (01/28/2024 9:19 AM EDT) Magnesium 1.04 0.69 - 1.07 mMol/L 01/28/2024 10:09 AM EDT [facility] Blood VENOUS BLOOD SPECIMEN / Unknown Venipuncture / Unknown 01/28/2024 9:19 AM EDT 01/28/2024 9:19 AM EDT Edmund Truong MD CHEMISTRY ORDERABL ES Performing Organization Address City/[facility]/[place] [address] * Uric acid (01/28/2024 9:19 AM EDT) Uric Acid 4.5 2.5 - 6.5 mg/dL 01/28/2024 10:09 AM EDT [facility] Blood VENOUS BLOOD SPECIMEN / Unknown Venipuncture / Unknown 01/28/2024 9:19 AM EDT 01/28/2024 9:19 AM EDT Edmund Truong MD CHEMISTRY ORDERABL ES Performing Organization Address City/[facility]/ZIP Co de Phone Number [facility] [place] [address] * Gamma GT (01/28/2024 9:19 AM EDT) Gamma Glutamyl Transferase 14 5 - 36 unit/L 01/28/2024 12:36 PM EDT [facility] Blood VENOUS BLOOD SPECIMEN / Unknown Venipuncture / Unknown 01/28/2024 9:19 AM EDT 01/28/2024 9:19 AM EDT Edmund Truong MD CHEMISTRY ORDERABL ES [facility] [place] [address] * (ABNORMAL) Comprehensive metabolic panel Non-fasting (01/28/2024 9:19 AM [facility]) Glucose 98 65 - 199 mg/dL 01/28/2024 10:09 AM [facility] Comment:Glucose Concentratio n >=200 mg/dL plus symptoms is consistent with Diabetes Mellitus. Blood Urea Nitrogen 7(L) 8 - 18 mg/dL 01/28/2024 10:09 AM [facility] Creatinine 0.79 0.70 - 1.20 mg/dL 01/28/2024 10:09 AM [facility] Sodium 141 135 - 145 mMol/L 01/28/2024 10:09 AM [facility] Potassium 4.1 3.5 - 5.0 mMol/L 01/28/2024 10:09 AM [facility] Chloride 105 98 - 107 mMol/L 01/28/2024 10:09 AM [facility] Carbon Dioxide 25 22 - 31 mMol/L 01/28/2024 10:09 AM [facility] Anion Gap 11 5 - 15 mMol/L 01/28/2024 10:09 AM [facility] Calcium 9.3 8.5 - 10.5 mg/dL 01/28/2024 10:09 AM [facility] Protein, Total 6.9 6.1 - 8.0 g/dL 01/28/2024 10:09 AM [facility] Albumin 4.1 3.2 - 5.2 g/dL 01/28/2024 10:09 AM [facility] Aspartate Aminotransferase 16 <=30 unit/L 01/28/2024 10:09 AM [facility] Alanine Aminotransferase 15 0 - 30 unit/L 01/28/2024 10:09 AM [facility] Alkaline Phosphatase 99 35 - 105 unit/L 01/28/2024 10:09 AM [facility] Bilirubin, Total 0.2 <=1.3 mg/dL 01/28/2024 10:09 AM EDT [facility] Est Glomerular Filtration Rate - Female 84 mL/min/1. 73 m?? 01/28/2024 10:09 AM EDT [facility] Comment: This [...] eGFR Calculator [employer] Fasting Status No 01/28/2024 10:09 AM [facility] Blood VENOUS BLOOD SPECIMEN / Unknown Venipuncture / Unknown 01/28/2024 9:19 AM EDT 01/28/2024 9:19 AM EDT Edmund Truong MD CHEMISTRY ORDERABL ES Performing Organization Address City/State/[facility] Co de Phone Number [facility] [place] [address] * (ABNORMAL) CBC (with Diff) (01/28/2024 9:19 AM EDT) White Blood Cell 8.91 4.00 - 9.50 x10(3)/mc L 01/28/2024 9:53 AM EDT [facility] Red Blood Cell 4.89 4.00 - 5.21 x10(6)/mc L 01/28/2024 9:53 AM EDT [facility] Hemoglobin 15.2 11.7 - 15.5 g/dL 01/28/2024 9:53 AM EDT [facility] Hematocrit 45.5 35.7 - 45.8 % 01/28/2024 9:53 AM EDT [facility] Mean Cell Volume 93.0 82.6 - 94.4 fL 01/28/2024 9:53 AM [facility] Mean Cell Hemoglobin 31.1 27.1 - 32.0 pg 01/28/2024 9:53 AM [facility] Mean Cell Hemoglobin Concentration 33.4 31.7 - 35.0 g/dL 01/28/2024 9:53 AM [facility] Platelet 276 145 - 357 x10(3)/mc L 01/28/2024 9:53 AM [facility] Mean Platelet Volume 8.5 7.6 - 12.9 fL 01/28/2024 9:53 AM [facility] RDW Standard Deviation 45.7 37.0 - 46.0 fL 01/28/2024 9:53 AM [facility] RDW coefficient of variation 13.5 11.5 - 14.1 % 01/28/2024 9:53 AM [facility] NRBC% auto 0.0 % 01/28/2024 9:53 AM [facility] NRBC Absolute <0.01 <0.01 x10(3)/mc L 01/28/2024 9:53 AM [facility] Neutrophil % 55.1 % 01/28/2024 9:53 AM [facility] Neutrophil Absolute (ANC) - Automated 4.90 1.70 - 6.10 x10(3)/mc L 01/28/2024 9:53 AM [facility] Lymph % 36.9 % 01/28/2024 9:53 AM [facility] Lymph Absolute 3.29(H) 0.90 - 3.20 x10(3)/mc L 01/28/2024 9:53 AM [facility] Monocyte % 6.3 % 01/28/2024 9:53 AM [facility] Monocyte Absolute 0.56 0.30 - 0.90 x10(3)/mc L 01/28/2024 9:53 AM EDT [facility] Eos % 1.0 % 01/28/2024 9:53 AM EDT [facility] Eos Absolute 0.09 0.00 - 0.40 x10(3)/mc L 01/28/2024 9:53 AM EDT [facility] Basophil % 0.4 % 01/28/2024 9:53 AM EDT [facility] Baso Absolute 0.04 0.00 - 0.10 x10(3)/mc L 01/28/2024 9:53 AM EDT [facility] Immature Gran % 0.3 % 9:53 AM EDT [facility] Immature Gran Absolute <0.04 0.00 - 0.04 x10(3)/mc L 01/28/2024 9:53 AM EDT [facility] Blood VENOUS BLOOD SPECIMEN / Unknown Venipuncture / Unknown 01/28/2024 9:19 AM EDT 01/28/2024 9:19 AM EDT Edmund Truong MD HEMATOLOGY ORDERAB LES Performing Organization Address City/State/[facility] Co de Phone Number [facility] [place] [address] documented in this encounter Visit Diagnoses Diagnosis Systemic mastocytosis Malignant mast cell tumors, unspecified site, extranodal and solid organ sites documented in this encounter Care Teams Primary Montessori Teacher Relationship Specialty Start Date End Date Estrella Mckay, PARAM [place] [address] [address] PCP - General Family Medicine 12/14/23 documented as of this encounter
--- OUTSIDE RECORDS SUMMARY | 2024-02-29 15:52 | XMS_ITS | Encounter Summary ---
Author Organization [facility] [place] [address] Care Team Providers Care County Engineer Name Role Phone Estrella Mckay APRN Primary Care Provider [phone] Encounter Details Date Type Department Care Team (Latest Contact Info) Description 02/04/2024 Travel Social History Tobacco Use Types Packs/Day Years Used Date Smoking Tobacco: Former Cigarettes 1 30 Q uit: 2012 Smokeless Tobacco: Never Comments:3/ PK A DAY Alcohol Use Standard Drinks/Week Comments No 0 (1 standard drink = 0.6 oz pur e alcohol) [facility] Utilities Answer Date Recorded In the [...] any time in the past 12 m [facility], were you homeless or living in a fci (including now)? No 02/05/2024 [facility] Inpatient Questions Answer Date Recorded [...] AM EST Office Visit Vascular Surgery at [place] [phone] Sarah Bah APRN [facility] [place] [address] 03/04/2024 7:00 AM EST Appointment Mammography/[place] [phone] Edmund Truong MD [facility] DR HEMATOLOGY [place] [address] 03/07/2024 10:45 AM EST Laboratory Appointment Lab at [facility] Hematology Oncology [address] [place] [phone] 03/07/2024 11:30 AM EST Office Visit Hematology [place] [phone] Bennett Turner RN 03/07/2024 11:30 AM EST Office Visit Hematology [place] [phone] Edmund Truong MD [facility] DR HEMATOLOGY [place] [address] 03/10/2024 8:15 AM EST Laboratory Appointment Lab at [facility] Hematology Oncology [address] [place] [address] 03/10/2024 8:30 AM EST Scheduled View Only Hematology and Oncology at [place] [address] 03/10/2024 9:00 AM EST Office Visit Hematology and Oncology at [place] [address] Omid Degroot MD [facility] [place] [address] 03/10/2024 9:00 AM EST Office Visit Hematology and Oncology at [place] [address] Bennett Turner, RN 03/25/2024 9:30 AM EST Tech Visit Vascular Lab at [place] [address] Carlton Higgins, RVT 03/25/2024 10:15 AM EST Office Visit Vascular Surgery at [place] [address] Tomy Raymond MD [facility] [place] [address] documented as of this encounter Visit Diagnoses Not on filedocumented in this encounter Care Teams County Engineer Relationship Specialty Start Date End Date Estrella Mckay, ELEMENTARY [place] [address] PCP - General Family Medicine 12/14/23 documented as of this encounter
--- OUTSIDE RECORDS SUMMARY | 2024-02-29 15:52 | XMS_ITS | Encounter Summary ---
[place] [address] Care Team Providers Care Farm Labor Contractor Name Role Phone Estrella Mckay APRN Primary Care Provider Encounter Details Date Type Department Care Team (Late st Contact Info) Description 02/09/2024 Telephone [place] [phone] Raiza Serrano RN Social History Tobacco Use Types Packs/Day Years Used Date Smoking Tobacco: Former Cigarettes 1 30 Q uit: 2013 Smokeless Tobacco: Never Comments:3/4TH PK A DAY Alcohol Use Standard Drinks/Week Comments No 0 (1 standard drink = 0.6 oz pur e alcohol) [facility] Utilities Answer Date Recorded In the [...] any time in the past 12 m [facility], were you homeless or living in a alf (including now)? No 02/05/2024 IPV Inpatient Questions Answer Date Recorded Does [...] Telephone Encounter - Raiza Serrano RN - 02/09/2024 9:28 AM EST Spoke with Dr. Pérez regarding Ashley's symptoms. Per Dr. Pérez's recommendation, Ashley was advised to come to the emergency room for further evaluation. Ashley in agreement to ashlee. [facility] * Telephone Encounter - Raiza Serrano RN - 02/09/2024 9:00 AM EST Outgoing call to Ashley regarding a message received stating she was having more pain. Ashley was discharged from the hospital on Thursday02/05/24 after admission and evaluation of left foot pain. Ashley reports she has been unable to sleep since Thursday secondary to the increased pain in left foot/leg. Ashley rates the pain at night as a 9/10 and 3/10 during the day while resting. She has been taking Tylenol for the pain which is not helping. She tries to hang her leg over the side of the bed without relief. Ashley denies skin breakdown, or color change. She reports that her left foot normally feels cold but she is having episodes where it feels even colder. Ashley was advised that her symptoms would be reviewed with the vascular team for recommendations and someone would reach back out to her. Ashley verbalized understanding and agreement to plan. [facility] documented in this encounter Plan of Treatment Upcoming Encounters Date Type Department Care Team (Late st Contact Info) Description 03/02/2024 8:30 AM EST Office Visit Vascular Surgery at [place] [phone] Sarah Bah, PARAM [facility] [place] [address] 03/04/2024 7:00 AM EST Appointment Mammography/DXA at [place] [phone] Edmund Truong MD [facility] DR HEMATOLOGY [place] [address] 03/07/2024 10:45 AM EST Laboratory Appointment Lab at [facility] Hematology Oncology [address] [place], [place] [phone] 03/07/2024 11:30 AM EST Office Visit Hematology and Oncology at [place] [phone] Bennett Turner RN 03/07/2024 11:30 AM EST Office Visit Hematology and Oncology at [place] [phone] Edmund Truong MD [facility] DR HEMATOLOGY [place] [address] 03/10/2024 8:15 AM EST Laboratory Appointment Lab at [facility] Hematology Oncology [address] [place] [phone] 03/10/2024 8:30 AM EST Scheduled View Only Hematology and Oncology at [place] [phone] 03/10/2024 9:00 AM EST Office Visit Hematology and Oncology at [place] [address] Omid Degroot MD [facility] [place] [address] 03/10/2024 9:00 AM EST Office Visit Hematology and Oncology at [address] Bennett Turner, RN 03/25/2024 9:30 AM EST Tech [place] [phone] Carlton Higgins, RVT 03/25/2024 10:15 AM EST Office Visit [place] [address] Tomy Raymond MD [facility] [place] [address] documented as of this encounter Visit Diagnoses Not on filedocumented in this encounter Care Teams Farm Labor Contractor Relationship Specialty Start Date End Date Estrella Mckay, CHIEF MEDICAL OFFICER [place] [address] PCP - General Family Medicine 12/14/23 documented as of this encounter
--- OUTSIDE RECORDS SUMMARY | 2024-02-29 15:52 | XMS_ITS | Encounter Summary ---
Author Organization [facility]ly [facility] [place] [address] Care Team Providers Care Building Contractor Name Role Phone Estrella Mckay APRN Primary Care Provider [phone] Encounter Details Date Type Department Care Team (Late st Contact Info) Description 01/28/2024 Orders Only Hematology [place] [phone] Edmund Truong MD [facility] DR HEMAT[place] [address] Systemic mastocytosis Social History Tobacco Use Types [...] AM EST Office [place] [phone] Sarah Bah APRN [facility] [place] [address] 03/04/2024 7:00 AM EST Appointment Mammography/DXA at [place] [address] Edmund Truong MD [facility] DR HEMATOLOGY [place] [address] 03/07/2024 10:45 AM EST Laboratory Appointment Lab at [facility] [place]ology Oncology [address] [place] [address] 03/07/2024 11:30 AM EST Office Visit Hematology and Oncology at [place] [address] Bennett Turner RN 03/07/2024 11:30 AM EST Office Visit Hematology and Oncology at [place] [address] Edmund Truong MD [facility] DR HEMATOLOGY [place] [address] 03/10/2024 8:15 AM EST Laboratory Appointment Lab at [facility] [place]ology Oncology [address] [place], [place] [phone] 03/10/2024 8:30 AM EST Scheduled View Only Hematology and Oncology at [place] [address] 03/10/2024 9:00 AM EST Office Visit Hematology and Oncology at [place] [address] Omid Degroot MD [facility] [place] [address] 03/10/2024 9:00 AM EST Office Visit Hematology and Oncology at [place] [address] Bennett Turner RN 03/25/2024 9:30 AM EST Tech [place] [phone] Carlton Higgins, RVT 03/25/2024 10:15 AM EST Office [place] [phone] Tomy Raymond MD [facility] [place] [address] Scheduled Orders Name Type Priority Associated Diagnoses Orde r Schedule CBC (with Diff) Lab STAT Systemic mastocytosis Expected: 02/11/2024 (Approximate), Expires: 08/12/2024 Gamma GT Lab STAT Systemic mastocytosis Expected: 02/11/2024 (Approximate), Expires: 08/12/2024 Uric acid Lab STAT Systemic mastocytosis Expected: 02/11/2024 (Approximate), Expires: 08/12/2024 Magnesium Lab STAT Systemic mastocytosis Expected: 02/11/2024 (Approximate), Expires: 08/12/2024 Phosphorus Lab STAT Systemic mastocytosis Expected: 02/11/2024 (Approximate), Expires: 08/12/2024 Lactate Dehydrogenase Lab STAT Systemic mastocytosis Expected: 02/11/2024 (Approximate), Expires: 08/12/2024 Prothrombin Time Lab STAT Systemic mastocytosis Expected: 02/11/2024 (Approximate), Expires: 08/12/2024 APTT Lab STAT Systemic mastocytosis Expected: 02/11/2024 (Approximate), Expires: 08/12/2024 DXA Central Spine, Hip, and/or Whole Body (Generic) Imaging Routine Systemic mastocytosis Expected: 02/28/2024 (Approximate), Expires: 01/27/2026 documented as of this encounter Visit Diagnoses Diagnosis Systemic mastocytosis Malignant mast cell tumors, unspecified site, extranodal and solid organ sites documented in this encounter Care Teams Building Contractor Relationship Specialty Start Date End Date Estrella Mckay, AUTO TECH [place] [address] PCP - General Family Medicine 12/14/23 documented as of this encounter
--- OUTSIDE RECORDS SUMMARY | 2024-02-29 15:52 | XMS_ITS | Encounter Summary ---
[place] [address] Care Team Providers Care Rf Test Technician Name Role Phone Estrella Mckay APRN Primary Care Provider [phone] Encounter Details Date Type Department Care Team (Late st Contact Info) Description 02/08/2024 Notes Only Hematology [place] [phone] Bennett Turner, RN Social History Tobacco Use Types Packs/Day Years Used Date Smoking Tobacco: Former Cigarettes 1 30 Q uit: 2013 Smokeless Tobacco: Never Comments:3/4TH PK A DAY Alcohol Use Standard Drinks/Week Comments No 0 (1 standard drink = 0.6 oz pur e alcohol) [facility] Utilities Answer Date Recorded In the [...] were you homeless or living in a fpc (including now)? No 02/05/2024 DH IPV Inpatient [...] Progress Notes * Bennett Turner RN - 02/08/2024 8:52 AM EST RESEARCH NURSE TELEPHONE NOTE [id number]: ([place]) A MULTI-PART, RANDOMIZED, DOUBLE-BLIND, PLACEBO-CONTROLLED PHASE 2 CLINICAL STUDY OF THE SAFETY AND EFFICACY OF [id number] IN SUBJECTS WITH NONADVANCED SYSTEMIC MASTOCYTOSIS. Date: 02/08/2024 Time: 8:53 AM Study Day: Screening Day # 14 Reason for call: To inquire regarding her status after being hospitalized from 02/03 - 02/04. Spoke w/ Ashley Kee who stated she is doing OK, although she has been having difficulty sleepingsince her discharge due to left foot pain. She reports he foot is always cold now and that she needs to wear a sock to keep it warm. 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 She reports there is a lot of sickness going around at work and she understand that it would not be beneficial for her to get an infection that would delay her surgery. She reports that she is waiting to hear from vascular surgery regarding an OR date. She was told that it might be as early as this week. Updated her that her Tryptase level came back from the central review as 194, within the acceptableparameters for protocol participation. We will await the results of her MAS score. Also reviewed that we have a 49 day screening window, and that I will discuss with Dr. Degroot and Dr. Truong to ascertain their thoughts regarding when we should tentatively start her on study, given the anticipated surgery. Signs/Symptoms & Adverse Events (insert table via quick text on first occasion then copy from pervious note for all subsequent notes) EVENT CTCAE GRADE START DATE STOP DATE paresthesia 2 01/31/24 Pain in extremity - left lower leg 2 01/31/24 Education Provided: As above. Plan: Will update as new information is obtain. Will discuss situation with Dr. Degroot and Dr. Truong. Patient will continue with screening. Will await MAS score from sponsor. Pt understands and agrees with plan and knows she can call the clinic with any further questions orconcerns. documented in this encounter Plan of Treatment Upcoming Encounters Date Type Department Care Team (Late st Contact Info) Description 03/02/2024 8:30 AM EST Office [place] [phone] Sarah Bah APRN [facility] [place] [address] 03/04/2024 7:00 AM EST Appointment Mammography/DXA at [place] [phone] Edmund Truong MD [facility] DR [place] [address] 03/07/2024 10:45 AM EST Laboratory Appointment Lab at [facility] Hematology Oncology [address] [place], [place] [phone] 03/07/2024 11:30 AM EST Office Visit Hematology and Oncology at [place] [phone] Bennett Turner RN 03/07/2024 11:30 AM EST Office Visit Hematology and Oncology at [place] [address] Edmund Truong MD [facility] DR [place] [address] 03/10/2024 8:15 AM EST Laboratory Appointment Lab at [facility] Hematology Oncology [address] [place] [address] 03/10/2024 8:30 AM EST Scheduled View Only Hematology and Oncology at [place] [address] 03/10/2024 9:00 AM EST Office Visit Hematology and Oncology at [place] [address] Omid Degroot MD [facility] [place] [address] 03/10/2024 9:00 AM EST Office Visit Hematology and Oncology at [place] [address] Bennett Turner RN 03/25/2024 9:30 AM EST Tech Visit Vascular Lab at [place] [address] Carlton Higgins, RVT 03/25/2024 10:15 AM EST Office Visit Vascular Surgery at [place] [address] Tomy Raymond MD [facility] [place] [address] documented as of this encounter Visit Diagnoses Not on filedocumented in this encounter Care Teams Rf Test Technician Relationship Specialty Start Date End Date Estrella [place] [address] PCP - General Family Medicine 12/14/23 documented as of this encounter
--- OUTSIDE RECORDS SUMMARY | 2024-02-29 15:52 | XMS_ITS | Encounter Summary ---
[place] [address] Care Team Providers Care Louver Mortiser Operator Name Role Phone Estrella Mckay APRN Primary Care Provider [phone] Encounter Details Date Type Department Care Team (Late st Contact Info) Description 02/04/2024 Notes Only Hematology [place] [phone] Bennett Turner, RN Social History Tobacco Use Types Packs/Day Years Used Date Smoking Tobacco: Former Cigarettes 1 30 Q uit: 2012 Smokeless Tobacco: Never Comments:3/4TH PK A DAY Alcohol Use Standard Drinks/Week Comments No 0 (1 standard drink = 0.6 oz pur e alcohol) [facility] Utilities Answer Date Recorded In the [...] any time in the past 12 m [facility], were you homeless or living in a half-way (including now)? No 02/05/2024 DH IPV Inpatient [...] Progress Notes * Bennett Turner RN - 02/04/2024 12:23 PM EDT RESEARCH NURSE TELEPHONE NOTE [id number]: ([place]) A MULTI-PART, RANDOMIZED, DOUBLE-BLIND, PLACEBO-CONTROLLED PHASE 2 CLINICAL STUDY OF THE SAFETY AND EFFICACY OF [id number] IN SUBJECTS WITH NONADVANCED SYSTEMIC MASTOCYTOSIS. Consent: 01/25/24 Date: 02/04/2024 Time: 12:23 PM Study Day: Screening Reason for call: To discuss getting labs done at [facility]. Patient called me earlier today saying that she went to [facility] to get labs done but they were busy and could not draw the blood for another hour. Spoke with Ashley Kee, who says she is having a difficult day. She went to [facility] where they told her she would need to wait for over an hour to get her labs drawn. She was also unable to schedule ablood draw for tomorrow before 1230, which would delay her from going to work. We discussed possible blood draw at her local [facility]. However, she then informed me that she has been having several pain/cramping in her left calf that started on Thursday. She reports that she has not been able to sleep in bed, and can only get sleep inthe recliner with her left leg dangling over the side of the chair. She reports that her left foot is numb and ice cold. She has had bilateral leg revascularization done in the past. Discussed by concern for a blood clot in her leg and recommended she report to the ED. He said she would do that when her comes home and she could come here at ~ 1530. Signs/Symptoms & Adverse Events (insert table via quick text on first occasion then copy from pervious note for all subsequent notes) EVENT CTCAE GRADE START DATE STOP DATE Concern for arterial thromboembolism 3 01/31/24 Education Provided: As above. Plan: Patient to report to the ED. Pt will continue in screening on study [id number] per protocol. Will get Total and Direct Bili drawn while in ED. Discussed all w/ Dr. Degroot and Dr. Truong. Pt understands and agrees with plan and knows she can call the clinic with any further questions orconcerns. documented in this encounter Plan of Treatment Upcoming Encounters Date Type Department Care Team (Late st Contact Info) Description 03/02/2024 8:30 AM EST Office Visit Vascular Surgery at [place] [phone] Sarah Bah APRN [facility] [place] [address] 03/04/2024 7:00 AM EST Appointment Mammography/DXA at [place] [phone] Edmund Truong MD [facility] DR HEMATOLOGY [place] [address] 03/07/2024 10:45 AM EST Laboratory Appointment Lab at [facility] Hematology Oncology [address] [place] [phone] 03/07/2024 11:30 AM EST Office Visit Hematology [place] [phone] Bennett Turner RN 03/07/2024 11:30 AM EST Office Visit Hematology and Oncology at [place] [address] Edmund Truong MD [facility] DR HEMATOLOGY [place] [address] 03/10/2024 8:15 AM EST Laboratory Appointment Lab at [facility] Hematology Oncology [address] [place] [address] 03/10/2024 8:30 AM EST Scheduled View Only Hematology and Oncology at [place] [address] 03/10/2024 9:00 AM EST Office Visit Hematology and Oncology at [place] [address] Omid Degroot MD [facility] [place] [place] [address] 03/10/2024 9:00 AM EST Office Visit Hematology and Oncology at [place] [address] Bennett Turner RN 03/25/2024 9:30 AM EST Tech Visit Vascular Lab at [place] [address] Carlton Higgins, RVT 03/25/2024 10:15 AM EST Office Visit Vascular Surgery at [place] [address] Tomy Raymond MD [facility] [place] [address] documented as of this encounter Visit Diagnoses Not on filedocumented in this encounter Care Teams Louver Mortiser Operator Relationship Specialty Start Date End Date Estrella Mckay APRN [facility] [place] [address] PCP - General Family Medicine 12/14/23 documented as of this encounter
--- OUTSIDE RECORDS SUMMARY | 2024-02-29 15:52 | XMS_ITS | Encounter Summary ---
Author Organization [facility] Address [facility] [place] [address] Care Team Providers Care Rubber Cutter Name Role Phone Estrella Mckay APRN Primary Care Provider [phone] Encounter Details Date Type Department Care Team (Late st Contact Info) Description 02/04/2024 Orders Only Hematology [place] [phone] Edmund Truong MD [facility] DR [place] [address] Systemic mastocytosis Social History Tobacco Use Types Packs/Day Years Used Date Smoking Tobacco: Former Cigarettes 1 30 Q uit: 2012 Smokeless Tobacco: Never Comments:3/4TH PK A DAY Alcohol Use Standard Drinks/Week Comments No 0 (1 standard drink = 0.6 oz pur e alcohol) [facility] Utilities Answer Date Recorded In the past 12 months has [employer], gas, oil, or water [employer] threatened to shut off services in your [...] in a prison (including now)? No 02/05/2024 IPV Inpatient Questions [...] AM EST Office Visit Vascular Surgery at [place] [phone] Sarah Bah APRN [facility] [place] [address] 03/04/2024 7:00 AM EST Appointment Mammography/DXA at [place] [phone] Edmund Truong MD [facility] DR [place] [address] 03/07/2024 10:45 AM EST Laboratory Appointment Lab at [facility] Hematology Oncology [address] [place], [place] [phone] 03/07/2024 11:30 AM EST Office Visit Hematology and Oncology at [place] [phone] Bennett Turner RN 03/07/2024 11:30 AM EST Office Visit Hematology and Oncology at [place] [phone] Edmund Truong MD [facility] DR [place] [address] 03/10/2024 8:15 AM EST Laboratory Appointment Lab at [facility] Hematology Oncology [address] [place] [phone] 03/10/2024 8:30 AM EST Scheduled View Only Hematology and Oncology at [place] [phone] 03/10/2024 9:00 AM EST Office Visit Hematology and Oncology at [place] [phone] Omid Degroot MD [facility] [place] [place] [address] 03/10/2024 9:00 AM EST Office Visit Hematology and Oncology at [place] [phone] Bennett Turner RN 03/25/2024 9:30 AM EST Tech Visit Vascular Lab at [place] [phone] Carlton Higgins, RVT 03/25/2024 10:15 AM EST Office Visit [place] [phone] Tomy Raymond MD [facility] [place] [address] documented as of this encounter Results * Bilirubin, Direct (02/04/2024 2:39 PM EDT) Bilirubin, Direct <0.2 0.0 - 0.3 mg/dL 02/04/2024 6:28 PM EDT [facility] Blood VENOUS BLOOD SPECIMEN / Unknown Venipuncture / Unknown 02/04/2024 2:39 PM EDT 02/04/2024 2:54 PM EDT Edmund Truong MD CHEMISTRY ORDERABL ES Performing Organization Address City/State/[facility] Co de Phone Number [facility] [place] [address] documented in this encounter Visit Diagnoses Diagnosis Systemic mastocytosis Malignant mast cell tumors, unspecified site, extranodal and solid organ sites documented in this encounter Care Teams Rubber Cutter Relationship Specialty Start Date End Date Estrella Mckay, PARAM [place] [address] [place] [address] PCP - General Family Medicine 12/14/23 documented as of this encounter
--- OUTSIDE RECORDS SUMMARY | 2024-02-29 15:52 | XMS_ITS | Encounter Summary ---
Author Organization [facility] [place] [address] Care Team Providers Care Agricultural Commodities Inspector Name Role Phone Estrella Mckay APRN Primary Care Provider [phone] Reason for Visit * Reason Comments Leg Pain * Auth/Cert (Routine) Specialty Diagnoses / Procedures Referred By Contac t Referred To Contact Diagnoses Critical limb ischemia of both lower extremities with autologous bypass graft Procedures ER IPI ADMIT Dez Pérez MD [facility] [place] [address] [facility] Referral ID Status Reason Start Date Expiration Date Visits Re quested Visits Authorized [id number] 1 1 Encounter Details Date Type Department Care Team (Latest Contact Info) Description 02/09/2024 12:31 PM EST - 02/11/2024 1:00 PM [facility] Hospital Encounter Surgical Unit Level 4 [place] [address] Bam Wetzel MD [facility] [address] Dez Pérez MD [facility] [place] [address] Critical limb ischemia of both lower extremities with autologous bypass graft (Primary Dx); Left leg pain Discharge Disposition: Home Social History Tobacco Use Types Packs/Day Years Used Date Smoking Tobacco: Former Cigarettes 1 30 Q uit: 2013 Smokeless Tobacco: Never Comments:3/4TH PK A DAY Alcohol Use Standard Drinks/Week Comments No 0 (1 standard drink = 0.6 oz pur e alcohol) [facility] Utilities Answer Date Recorded In the past 12 months has th e electric, gas, oil, or water company threatened to shut off services in your home? No 02/11/2024 Hunger Vital Sign Answer Date Recorded Within the past 12 months, y ou worried that your food would run out before you got the money to buy more. Never true 02/11/20 24 Within the past 12 months, t he food you bought just didn't last and you didn't have money to get more. Never true 02/11/2024 PRAPARE - Transportation Answer Date Re corded In the past 12 months, has l ack of transportation kept you from medical appointments or from getting medications? No 10/2023 In the past 12 months, has l ack of transportation kept you from meetings, work, or from getting things needed for daily living? No 02/11/2024 Housing Stability Vital Sign Answer [place] e Recorded In the last 12 months, was t here a time when you were not able to pay the mortgage or rent on time? No 02/11/2024 In the past 12 months, how m any times have you moved where you were living? 0 02/11/2024 At any time in the past 12 m [facility], were you homeless or living in a intermediate (including now)? No 02/11/2024 IPV Inpatient Questions Answer Date Recorded Does [...] Sign Reading Time Taken Comments Blood Pressure 145/68 02/11/2024 9:40 AM EST Pulse 84 02/09/2024 12:13 PM EST Temperature 36.8 ??C (98.2 ??F) 02/11/2024 9:40 AM ES T Respiratory Rate 20 02/11/2024 9:40 AM EST Oxygen Saturation 95% 02/11/2024 9:40 AM EST Inhaled Oxygen Concentration - - Weight 56.2 kg (124 lb) 02/09/2024 12:13 PM EST Height 160 cm (5' 3) 02/09/2024 12:13 PM EST Body Mass Index 21.97 02/09/2024 12:13 PM EST documented in this encounter Discharge Instructions * Patient Instructions* Mikki Damon APRN - 02/11/2024 10:37 AM EST Patient Instructions You were admitted for heparin infusion and surgical planning. All of this went very well. You will return to hospital on: Thursday02/16/24 at 0600 for your surgery. Stop taking Lovenox injection after your last (PM dose) on Thursday02/15/24. DO NOT TAKE LOVENOX ON 02/16/24. You should have nothing to eat or drink after midnight on Thursday02/15/24. You may take your medications in the morning of 02/16/24 with small sips of water. Anticoagulation: Lovenox 60 mg. Inject 0.6mL into subcutaneous tissue every 12 hours. Call your doctor if: you have any questions or sudden increase of pain Activity level: up as tolerated. Diet: resume your previous regular diet Driving: none right now with pain medication use Shower/Bath: ok to shower and wash Wound Care: no special wound care For any problems or questions please call [phone] For issues on weeknights after 5pm and weekends please call [phone] and ask for the Vascular Fellow secondary school registrar. documented in this encounter Medications at Time [...] daily in am.). cetirizine (ZyrTEC) 10 mg tabletIndications:Sys temic Mastocytosis Take 1 tablet by mouth daily. Indications: Systemic Mastocytosis 30 tablet 3 01/07/2024 famotidine (Pepcid) 20 mg tabletIndications:Sys temic Mastocytosis Take 1 tablet by mouth 2 times daily. Indications: Systemic Mastocytosis 30 tablet 3 01/07/2024 montelukast (Singulair) 5 mg chewable tablet Take 1 tablet by mouth nightly. 30 tablet 3 01/07/2024 EPINEPHrine 0.3 mg/0.3 mL Auto-Injector Inject 0.3 mL IM once as needed for allergic reaction (Throat tight, difficulty breathing). Call 911 as directed. 1 kit 11 12/18/2023 enoxaparin (Lovenox) 60 mg/0.6 mL Syringe Inject 0.6 mLs subcutaneously 2 times daily. 15 mL 02/11/2024 02/24/2024 documented as of this encounter Progress Notes * Cecelia Babin PT - 02/11/2024 8:54 AM EST 02/11/24 0852 Evaluation & Treatment Document Type contact Total Minutes, Physical Therapy 0 Comment, Session Not Performed Chart reviewed. Met with pt and spoke with RN. Pt is independent andhas no therapy needs. Therapy Frequency (PT) discharge inpatient Physical Therapy services Anticipated Equipment Needs at Discharge (PT) None Vital Signs Heart Rate from SpO2 64 bpm SpO2 95 % * Lesia Mas OT - 02/11/2024 8:44 AM EST Occupational Therapy Note Document Type: (P) contact Total Minutes, Occupational Therapy: (P) 0 Reason: 02/11/24 0830 Evaluation & Treatment Document Type contact Total Minutes, Occupational Therapy 0 Comment, Session Not Performed OT consult received and pt chart reviewed. Pt is currently independent (confirmed with RN) with all ADLs and functional mobility. Pt is awaiting femoral bypass surgery tentatively scheduled for 02/15. OT will continue to follow pt and complete evaluation post-op as able and appropriate. Pager: [phone] Lesia Mas OT 02/11/2024 Occupational Therapy Rehabilitation Department * Mikki Damon, RUM PROCESSING OPERATOR - 02/10/2024 11:33 AM EST Vascular Surgery Progress Note Ashley Grayson is a 63 y.o. female with a past medical history of aortoiliac disease with lifestyle limiting claudication status post aortobifemoral bypass ([facility], 2012) neurogenic thoracic outlet syndrome status post first rib resection and scalenectomy ([facility]), and systemic mastocytosis who presented to the emergency department for evaluation of worsening left foot ischemic. Previous admission with workup for thoracofemoral bypass, will plan for during this admission. Active Hospital Problems Diagnosis Critical limb ischemia of both lower extremities with autologous bypass graft Resolved Hospital Problems No resolved problems to display. Active Non-Hospital Problems Diagnosis Left leg pain Back pain Right leg pain Scheduled Medications: sodium chloride 0.9 % (flush) 5 mL Intravenous BID polyethylene glycoL (MIRALAX) oral powder 17 g Oral Daily senna-docusate 2 tablet Oral BID loratadine 10 mg Oral Daily famotidine 20 mg Oral BID montelukast 5 mg Oral Nightly acetaminophen 975 mg Oral Q6H JENNIFER methocarbamoL 1,500 mg Oral TID Followed by [START ON 02/12/2024] methocarbamoL 750 mg Oral TID lidocaine 1 patch Transdermal Q24H Operations This Hospitalization: none Interim: - reports pain slightly better with heparin gtt - HDS, NAEO, BM DESIZING MACHINE BACK TENDER - CBC, BMP WNL Objective: Temp: [36.2 ??C (97.2 ??F)-36.6 ??C (97.9 ??F)] Heart Rate: [84] Resp: [18-20] BP: (116-119)/(53-71) SpO2: [94 %-98 %] Heart Rate from SpO2: [66 bpm-75 bpm] BMI: Weight: 56.2 kg (124 lb) (02/09/24 1213) BMI (Calculated): 21.96 BMI Classification: Normal Weight Intake/Output Summary (Last 24 hours) at 02/10/2024 1135 Last data filed at 02/10/2024 0800 Gross per 24 hour Intake 1745.1 ml Output -- Net 1745.1 ml PHYSICAL EXAM: General: no acute distress, [...] groins however not palpable Labs: Recent Labs 02/10/24 0151 02/09/24 1235 WBC 8.38 8.17 HGB 13.4 14.2 HCT 40.8 42.4 PLATELET 259 283 Recent Labs 02/10/24 0151 02/09/24 1235 NA 138 140 K 3.9 3.7 CL 104 105 CO2 24 23 BUN 9 6* CREATININE 0.94 0.70 CALCIUM 8.9 9.2 Microbiology: Microbiology Results (last 7 days) No results found for the last 168 hours. New Studies: ABIs Findings: Right Pressure (mm Hg) MARGIE Waveform TBI Brachial Artery 138 Common Femoral Artery Spencer-Biphasic Popliteal Artery Spencer-Biphasic Dorsalis Pedis (Ankle) Artery 62 0.43 Spencer-Biphasic Posterior Tibial (Ankle) Artery 62 0.43 Spencer-Biphasic Great Toe 51 0.36 Left Pressure (mm [...] Dias was informed of these preliminary findings. Assessment & Plan: Ashley Grayson is a 63 y.o. female with a past medical history of aortoiliac disease with lifestyle limiting claudication status post aortobifemoral bypass ([facility], 2013) neurogenic thoracic outlet syndrome status post first rib resection and scalenectomy ([facility]), and systemic mastocytosis who has recently developed left lower extremity critical limb ischemia with rest pain in the setting of an occluded left limb of aortobifemoral bypass. 02/10/24: Pain well controlled and heparin gtt in therapeutic range. Consented today for thoraco-femoral bypass, awaiting OR time. Plan: Pain: lido patches, scheduled Tylenol, robaxin 1500 TID x 3 days -->750 mg TID, dilaudid prn CV: heparin gtt therapeutic, ASA 81 mg GI/: bowel orders, regular diet, pepcid BM 02/08 Endo: no needs Home meds: loratadine, singulair Dispo: pending PT/OT, surgical intervention Full Code Anticoagulation: heparin gtt (Eliquis 5 BID held on admission) Antiplatelet: ASA 81 mg Mikki Damon APRN 02/10/2024 Pager: [phone] * Daiana Sharp RN - 02/09/2024 8:00 PM EST Images from the original note were not included. Patient arrived to [facility] via wheelchair from emergency department. Patient AOx 4, VSS, voiding via up to bathroom w/1 assist. Denies nausea/vomiting, SOB, CP. Pain 4/10 at this time. Patient oriented to room, call matias to bedside, all questions answered, please see flowsheet for full assessment. Numbness and tingling in left leg. Four Eyes Skin Assessment Four Eyes skin assessment was performed on admission to the unit by Daiana FAYE and Mona FAYE. Patient had the following devices at the time of this assessment: Peripheral IV and O2 sat probe Device related pressure injury present? No All skin intact. Last Bakari Score: 12 Instructions: Add LDA for any identified wounds Add Chelsea image for any suspected PI or non surgical wounds Order wound consult if suspected PI identified If patient is paraplegic or quadriplegic, if bakari is 18 or less and/or otherwise indicated; please initiate Q2 turns 02/09/24 Daiana Sharp RN * Dez Pérez MD - 02/09/2024 3:22 PM EST [facility] staff: Patient well-known to me. She was seen and examined. She has worsening rest pain of the left leg. She will need to be admitted. She last took her Eliquis this morning. She will need thoracal femoral bypass. We will plan for this. Admit to vascular, Intravenous resuscitation, IV heparin, and planning for above. documented in this encounter H&P Notes * Matt Dias MD - 02/09/2024 4:11 PM EST Vascular Surgery History and Physical HPI: Ashley Grayson is a 63 y.o. female with a past medical history of aortoiliac disease with lifestyle limiting claudication status post aortobifemoral bypass ([facility], 2013) neurogenic thoracic outlet syndrome status post first rib resection and scalenectomy ([facility]), and systemic mastocytosis who presented to the emergency department for evaluation of worsening left foot ischemic. She was recently admitted for his, please see prior H&P below Patient reports that she was in her usual state of health on 01/30 when she was folding laundry athome when she started noticing pain in her calf which changed to pain in her left forefoot at nightwhile resting. She noted that she felt like something was off however was not sure what to make of it. She is currently getting worked up for systemic mastocytosis and was talking to one of the coordi nators from her care clinic for this and described her [...] for roughly 3 years as there was concern this was potentially implicated in side effects that [...] has intermittently seen her vascular surgeons at [facility] for care and was told she did not need to be seen in their clinic anymore a few years ago. 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 Her foot pain has not limited her ability to work or require extensive pain control at home. Has no personal history of cancer, no familyhistory of vascular disease, and a few members on the maternal side of her family had uterine cancer. Past surgical history is significant for her aortobifemoral bypass, first rib resection/scalenectomy, laparoscopic cholecystectomy, open appendectomy, Pfannenstiel incision hysterectomy Active Hospital Problems Diagnosis Critical limb ischemia of both lower extremities with autologous bypass graft Resolved Hospital Problems No resolved problems to display. Active Non-Hospital Problems Diagnosis Left leg pain Back pain Right leg pain Anticoagulation: Eliquis Antiplatelet: None Review of Systems: A full review encompassing [...] Biopsy Bone (Extremities/Pelvis) 10/15/2023 Charissa Alcala MD [facility] RAD CT SCAN PRO DIAGNOSTIC BONE MARROW BIOPSIES & ASPIRATIONS N/A 12/15/2023 ([facility]) BONE MARROW BIOPSY AND ASPIRATION; DIAGNOSTIC (WRVU 1.44) performed by Bismark Degroot MD at [facility] Social Hx: Social History Socioeconomic History Marital [...] on file Food Insecurity: No Food Insecurity (02/05/2024) Hunger Vital Sign Worried About Running Out of Food in the Last Year: Never true Ran Out of Food in the Last Year: Never true Transportation Needs: No Transportation Needs (02/05/2024) PRAPARE - Transportation Lack of Transportation (Medical): No Lack of Transportation (Non-Medical): No Physical Activity: Not on file Intimate Partner Violence: Not At Risk (02/09/2024) IPV Inpatient Questions Prevent Contact with Others: no Feels Threatened by Someone: no Feels Unsafe at Home: no Physical Signs of Abuse Present: no Housing Stability: Low Risk (02/05/2024) Housing Stability Vital Sign Unable to Pay for Housing in the Last Year: No Number of Times Moved in the Last Year: 0 Homeless in the Last Year: No Family Hx: No family history on file. Medications: No current facility-administered medications on file prior to encounter. Current Outpatient Medications on File Prior to Encounter Medication Sig Dispense Refill apixaban (Eliquis) 5 mg tablet Take 1 tablet by mouth 2 times daily. 60 tablet 0 acetaminophen (Tylenol) 500 mg tablet Take 1,000 [...] Drug) Hives Physical Exam: Vital Signs: Temp: [36.2 ??C (97.2 ??F)] Heart Rate: [84] Resp: [20] BP: (116)/(56) SpO2: [98 %] Heart Rate from SpO2: -- BMI: [...] groins however not palpable Labs: Recent Labs 02/09/24 1235 WBC 8.17 HGB 14.2 HCT 42.4 PLATELET 283 Recent Labs 02/09/24 1235 NA 140 K 3.7 CL 105 CO2 23 BUN 6* CREATININE 0.70 CALCIUM 9.2 Studies/Imaging: ABIs Findings: Right Pressure (mm Hg) MARGIE Waveform TBI Brachial Artery 138 Common Femoral Artery Spencer-Biphasic Popliteal Artery Spencer-Biphasic Dorsalis Pedis (Ankle) Artery 62 0.43 Spencer-Biphasic Posterior Tibial (Ankle) Artery 62 0.43 Spencer-Biphasic Great Toe 51 0.36 Left Pressure (mm [...] Dias was informed of these preliminary findings. Assessment and Plan: Ashley Grayson is a 63 y.o. female with a past medical history of aortoiliac disease with lifestyle limiting claudication status post aortobifemoral bypass ([facility], 2013) neurogenic thoracic outlet syndrome status post first rib resection and scalenectomy ([facility]), and systemic mastocytosis who has recently developed left lower extremity critical limb ischemia with rest pain in the setting of an occluded left limb of aortobifemoral bypass. She will be admitted for multimodal pain control, systemic anticoagulation with IV heparin, fluid resuscitation, and plan for operative intervention with a thoraco-femoral bypass Matt Dias MD 02/09/2024 Pager: [phone] documented in this encounter ED Notes * Dayana Fan LPN - 02/09/2024 6:11 PM EST [facility] * Marisel Marley DO - 02/09/2024 12:52 PM EST ED Resident Note HPI: Ashley Grayson is a 63 y.o. female with medical history of femoral bypass, mastocytosis who presentsto the Emergency Department for worsening left leg pain. She states that she now has pain while lying flat and needs to dangle her legs off the bed which is new for her. She continues to have calf pain with exertion, relieved by rest. Patient seen on 02/04/2020 for for leg and back pain she was found to have severe lower extremity occlusive disease left worse than right. 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 She was admitted for diagnostics prior to her surgical intervention, and was cleared for surgery. Patient started on Eliquis prior to discharge. Plan for vascular surgery intervention on 02/16/2024. ROS as per HPI Vitals: ED Triage Vitals [02/09/24 1213] BP: 116/56 Heart Rate: 84 Resp: 20 Temp: 36.2 ??C (97.2 ??F) Temp src: Temporal SpO2: 98 % O2 Device: RA O2 Flow Rate (L/min): n/a Physical Exam General: Pleasant, sitting on exam bed. non-toxic appearing. No acute distress. HEENT: EOMI. MMM. Sclera anicteric. Cardiac: Regular rate and rhythm. Normal S1 and S2. No murmurs. Pulmonary: Adequate excursion. Clear to auscultation bilaterally. Abdominal: Normal bowel sounds. Soft, non-tender, non-distended. Extremities: Could not palpate or obtain with Doppler dorsalis pedis or posterior tibial pulses on the left. 1+ on the right. No edema. No gross deformities. Moves as extremities equally. Neuro: No focal neurologic deficits. Psych: Mood and affect appropriate. ED Course: I have reviewed labs and imaging, images and available reports, and they are significant for: ED Course as of 02/09/241742 [facility] Feb 09, 2024 1446 Paged vascular surgery. Assessment and Plan: 63 y.o. female with left critical limb ischemia in the setting of a occluded femoral bypass. Evaluated by vascular surgery plan to admit to their service for further workup and management. The visit findings, diagnosis, and care plan were discussed with the patient. Patient handed off to MD Donell Beckham Amelia M, DO Resident 02/09/241743 Associated attestation - Bam Wetzel MD - 02/10/2024 11:08 AM EST ED ATTENDING ATTESTATION NOTE The patient was seen in conjunction with the resident physician. I have independently performed thekey portions of the history and physical exam. I have reviewed the diagnostic studies including labs, imaging studies and EKGs. I have discussed the details of the case with the resident and agree with the assessment and plan as described in the resident note unless noted below or in my separate note. Brief Summary: Patient with critical limb ischemia worsening rest pain known to vascular surgery vascular surgery will admit * Pardeep Gonzales MD - 02/09/2024 12:13 PM EST 63 y.o. with L lower leg pain. seen last week, sent home on blood thinner. CT with runoff shows compromise of the fem bypass, but no dvt. ordered: cbc chem art duplex Pardeep Gonzales MD 02/09/24 1217 documented in this encounter Miscellaneous Notes * Plan of Care - Madison Mosley RN - 02/11/2024 1:00 PM EST Pt AAOx4, independent with activity. Pain managed with scheduled Robaxin and heat packs. Heparin d/c'ed, started on Lovenox. Did Lovenox teaching with pt involving where to give the injection and howto give it as well as injecting until the safety mechanism releases to ensure that the entire medication has been injected, pt verbalized understanding. Explained why pt could not go back to taking Eliquis prior to procedure on Thursday 02/15, as pts are usually taken off of Eliquis several days before a procedure and with pt's severe occlusion, Lovenox can be taken up until the night before, pt verbalized understanding. Reviewed discharge instructions, medications, prescriptions, and follow-up appts with pt and pt's at bedside, verbalized understanding. Pt aware to be back at the hospital on 02/15 at 0600 for her surgical procedure, that she is NPO the night before, and to not take Lovenox the morning of her procedure, that the last dose will be the night before on 02/14. Pt also aware that she is able to take her normal medications the morning of with a few sips of water. Robaxin and Lovenox sent to [facility] pharmacy. Bowel meds also prescribed, pt does not need as she has chronic diarrhea. VSS. Needs met this shift. Hourly rounding completed. IV d/c'ed. Pt discharged, via W/C, all belongings with pt and her . Accompanied by [facility]. * Initial Assessments - Kale Durbin RN - 02/11/2024 10:17 AM EST Office of Care Management Initial Assessment Medical record reviewed. Plan of care and patient status discussed with direct care Registered Nurse and/or Care Team in multidisciplinary rounds. Reason for Hospitalization: left foot pain and possible [id number] y.o. female with a past medical history of aortoiliac disease with lifestyle limiting claudication status post aortobifemoral bypass ([facility], [facility]) neurogenic thoracic outlet syndrome status post first rib resection and scalenectomy ([facility]), and systemic mastocytosis who presented to the emergency department for evaluation of worsening left foot ischemic Last COVID test: unknown Present on Admission: Critical limb ischemia of both lower extremities with autologous bypass graft Hospitalizations Within the Past 30 Days: no previous admission in last 30 days Patient receiving hospital care under Inpatient status. Admission order reviewed. Health/Prescription Coverage: Primary Insurance: MEDICARE Payor: MEDICARE / Plan: MEDICARE PART A ONLY / Product Type: *No Product type* / Secondary Insurance: [place] [facility] ONLY if patient has Medicare A&B - Does this patient have secondary insurance?: Yes ; Prescription Coverage: Yes Preferred Pharmacy: [address] [place], [place] [id number] [address] [facility] [address] [place], [place] [id number] Advance Care Planning: Attempt Cardiopulmonary Resuscitation - Inpatient <no information> -Advanced Directive: No, need to discuss (Karthik Grayson:spouse:surrogate) Current Functional Ability: Independent Functional Status Prior to Admission: Independent Home Environment: Others in the home: spouse, pet(s). Current Living Arrangements: home/apartment/condo. Accessibility Concerns:One level home, 3 IVORY with bilateral railings. Current DME: none [address] [place] [phone] Social & Family Supports: All names listed below confirmed with patient as current and correct Extended Emergency Contact Information Primary Emergency Contact: Karthik Grayson Mobile Relation: Spouse Secondary Emergency Contact: Enedelia Lombardi Relation: Child Current Care Provided by: self Transportation: no concerns Transportation Anticipated: family or friend will provide Assessment: Patient with no apparent RNCM/SW needs at this time. No housing, transportation, insurance, resources concerns identified at this time. Supports in place to achieve a safe post-hospital transition. No identified barriers to accessing necessary care and/or follow-up after discharge. Plan: Patient to d/c to home via family when medically ready. Registered Nurse Stereoplotter Operator / Knowledge Manager will continue to follow patient???s progress and remain available if situation changes for coordination of care, psychosocial support and/or discharge planning. Office of Care Management Klae Durbin RN CM(remote) Leila Muhammad RN CM Pager [phone] * Consult Note - Oscar Ascencio RN - 02/11/2024 9:05 AM EST During VAS [employer], an assessment of your patient's venous access was performed fby theVascular Access Service. The following tasks were performed if needed and communicated to the bedside RN Choose all that apply: [x] PIV(s) checked for patency if daily need for flush needs to be performed [] CVAD was checked for patency if daily flush needs to be performed [x] IV tubing clamped or capped if needed [] Visual inspection of your patient's central line dressing integrity [x] Review of indications for vascular access [] A photo was taken of your patient's central line [x] Visual inspection of your patient's IV dressing [...] [] Other * Plan of Care - Daiana Sharp RN - 02/11/2024 5:28 AM EST OUTCOME EVALUATION NOTE: OUTCOME SUMMARY: Patient's pain controlled with scheduled pain medication. Patient cooperative with care and restingbetween care. No adverse events this shift. VSS. Will continue to monitor and help patient reach d/c goals. Blanchable redness on left heel. Numbness and tingling present in LLE. Pt is capable of walking to the bathroom on her own, per my assessment. paged requesting independent orders, no response. Pt is NPO after midnight for possible bypass tomorrow. Heparin drip running at 850units/hr. PLAN MOVING FORWARD: Pain control Mobilize D/c planning INDIVIDUALIZED FALL PREVENTION: Patient is currently a high risk to Fall. Patient educated on bed/chair alarm, demonstrates proper use of call matias and verbalizes understanding of fall preventions implemented. Patient-specific fall risk factors per assessment: [current deficits]: Pain, Medications, Hospital Environment. Assistance [level of assistance required for transfers and ambulation]: stand by assist Supervision [direct monitoring required during toileting and ADLs]: Eyes on per unit protocol when OOB/with ADL's Surveillance [continuous indirect monitoring]: Mariao, [employer], Nurse Knowledge Exchange * Plan of Care - Madison Mosley RN - 02/10/2024 6:10 PM EST Pt AAOx4, independent with activity. Pt with multiple loose BM's this shift r/t systemic mastocytosis, baseline for pt; refused bowel meds. Pt still with LLE pain, worsened with walking/activity. Heat packs improve pain significantly while resting along with scheduled Robaxin. Pt unable to take narcotics d/t vomiting. Pt states she does have numbness and tingling to her LLE. Heparin continues to infuse at 850u/hr, UFH therapeutic at 0.50 at 1123, current UFH pending. Pt consented today for thoraco-femoral bypass, awaiting OR time, will be NPO at midnight. Pt did not receive 1800 dose of Tylenol as the dose would have been greater than 4000mg in 22 hours. VSS. Needs met this shift. Hourly rou nding completed. Call matias within reach. Pt resting in bed, at bedside. * Plan of Care - Daiana Sharp RN - 02/10/2024 5:22 AM EST OUTCOME EVALUATION NOTE: OUTCOME SUMMARY: Patient's pain controlled with scheduled pain medication. Patient cooperative with care and restingbetween care. No adverse events this shift. VSS. Will continue to monitor and help patient reach d/c goals. Heparin drip was paused for an hour this shift due to a crital lab value, then titrated down. Pt was kept awake by her roommate throughout the night. Pt has trouble getting comfortable in bedbecause raising her leg causes increased pain. PLAN MOVING FORWARD: Pain control Mobilize D/c planning INDIVIDUALIZED FALL PREVENTION: Patient is currently a high risk to Fall. Patient educated on bed/chair alarm, demonstrates proper use of call matias and verbalizes understanding of fall preventions implemented. Patient-specific fall risk factors per assessment: [current deficits]: Pain, Medications, Hospital Environment. Assistance [level of assistance required for transfers and ambulation]: Stand by assist Supervision [direct monitoring required during toileting and ADLs]: Eyes on per unit protocol when OOB/with ADL's Surveillance [continuous indirect monitoring]: Charlotte, [employer], Nurse Knowledge Exchange * ED Triage - Reny Heller RN - 02/09/2024 12:15 PM EST Pt to triage from the lobby, pt states she is having left leg pain, pt states she was seen and dx with a DVT and started on Eliquis, pt states her pain has worsened, pain is 2/10, pt in no acute distress, A&O times 4, VSS HPI (Adult) Stated Reason for Visit: Pt states that she is having lower left leg pain History Obtained From: patient documented in this encounter Plan of Treatment Upcoming Encounters Date Type Department Care Team (Late st Contact Info) Description 03/02/2024 8:30 AM EST Office Visit Vascular Surgery at [place] [phone] Sarah Bah, [facility] [place] [address] 03/04/2024 7:00 AM EST Appointment Mammography/DXA at [place] [phone] Edmund Truong MD [facility] [address] [place] [address] 03/07/2024 10:45 AM EST Laboratory Appointment Lab at [facility] Hematology Oncology [address] [place], [place] [phone] 03/07/2024 11:30 AM EST Office Visit Hematology and Oncology at [place] [phone] Bennett Turner RN 03/07/2024 11:30 AM EST Office Visit Hematology and Oncology at [place] [phone] Edmund Truong MD [facility] [place] [address] 03/10/2024 8:15 AM EST Laboratory Appointment Lab at [facility] Hematology Oncology [address] [place] [phone] 03/10/2024 8:30 AM EST Scheduled View Only Hematology and Oncology at [place] [phone] 03/10/2024 9:00 AM EST Office Visit [place]ology [place] [phone] Omid Degroot MD [facility] [place] [address] 03/10/2024 9:00 AM EST Office Visit [place] [phone] Bennett Turner, RN 03/25/2024 9:30 AM EST Tech [place] [phone] Carlton Higgins, RVT 03/25/2024 10:15 AM EST Office [place] [phone] Tomy Raymond MD [facility] [place] [address] documented as of this encounter Procedures Procedure Name Priority Date/Time Associated Diagnosis Comments HEPARIN (UNFRACTIONATED) LEVEL Timed 02/11/2024 4:32 AM EST CBC (WITH DIFF) STAT 02/11/2024 4:32 AM EST PHOSPHORUS Routine 02/11/2024 4:32 AM EST MAGNESIUM Routine 02/11/2024 4:32 AM EST BASIC METABOLIC PANEL Routine 02/11/2024 4:32 AM EST HEPARIN (UNFRACTIONATED) LEVEL Timed 02/10/2024 6:30 PM EST HEPARIN (UNFRACTIONATED) LEVEL Timed 02/10/2024 11:23 AM EST HEPARIN (UNFRACTIONATED) LEVEL Timed 02/10/2024 1:52 AM EST SCAN, PERIPHERAL BLOOD STAT 02/10/2024 1:51 AM EST CBC (WITH DIFF) STAT 02/10/2024 1:51 AM EST BASIC METABOLIC PANEL Routine 02/10/2024 1:51 AM EST EXTRA TUBES STAT 02/09/2024 12:35 PM EST GOLD TUBE HOLD STAT 02/09/2024 12:35 PM EST BLUE TUBE HOLD STAT 02/09/2024 12:35 PM EST CBC (WITH DIFF) STAT 02/09/2024 12:35 PM EST BASIC METABOLIC PANEL STAT 02/09/2024 12:35 PM EST ARTERIAL DUPLEX LEG UNILA STAT 02/09/2024 12:17 PM EST Left leg pain documented in this encounter Results * Heparin (unfractionated) Level (02/11/2024 4:32 AM EST) UF Heparin 0.36 IU/mL 02/11/2024 5:35 AM EST [facility] Comment: Heparin (anti-Xa) levels should [...] EST Dez Pérez MD HEMATOLOGY ORDERABLE S [facility] [place] [address] * (ABNORMAL) CBC (with Diff) (02/11/2024 4:32 AM EST) White Blood Cell 7.31 4.00 - 9.50 x10(3)/mc L 02/11/2024 5:13 AM [facility] Red Blood Cell 4.33 4.00 - 5.21 x10(6)/mc L 02/11/2024 5:13 AM [facility] Hemoglobin 13.4 11.7 - 15.5 g/dL 02/11/2024 5:13 AM [facility] Hematocrit 40.5 35.7 - 45.8 % 02/11/2024 5:13 AM [facility] Mean Cell Volume 93.5 82.6 - 94.4 fL 02/11/2024 5:13 AM [facility] Mean Cell Hemoglobin 30.9 27.1 - 32.0 pg 02/11/2024 5:13 AM [facility] Mean Cell Hemoglobin Concentration 33.1 31.7 - 35.0 g/dL 02/11/2024 5:13 AM [facility] Platelet 266 145 - 357 x10(3)/mc L 02/11/2024 5:13 AM [facility] Mean Platelet Volume 8.6 7.6 - 12.9 fL 02/11/2024 5:13 AM [facility] RDW Standard Deviation 45.4 37.0 - 46.0 fL 02/11/2024 5:13 AM [facility] RDW coefficient of variation 13.2 11.5 - 14.1 % 02/11/2024 5:13 AM [facility] NRBC% auto 0.0 % 02/11/2024 5:13 AM [facility] NRBC Absolute <0.01 <0.01 x10(3)/mc L 02/11/2024 5:13 AM [facility] Neutrophil % 43.9 % 02/11/2024 5:13 AM [facility] Neutrophil Absolute (ANC) - Automated 3.21 1.70 - 6.10 x10(3)/mc L 02/11/2024 5:13 AM [facility] Lymph % 46.1 % 02/11/2024 5:13 AM [facility] Lymph Absolute 3.37(H) 0.90 - 3.20 x10(3)/mc L 02/11/2024 5:13 AM [facility] Monocyte % 7.7 % 02/11/2024 5:13 AM [facility] Monocyte Absolute 0.56 0.30 - 0.90 x10(3)/mc L 02/11/2024 5:13 AM [facility] Eos % 1.5 % 02/11/2024 5:13 AM [facility] Eos Absolute 0.11 0.00 - 0.40 x10(3)/mc L 02/11/2024 5:13 AM [facility] Basophil % 0.5 % 02/11/2024 5:13 AM [facility] Baso Absolute 0.04 0.00 - 0.10 x10(3)/mc L 02/11/2024 5:13 AM [facility] Immature Gran % 0.3 % 5:13 AM [facility] Immature Gran Absolute <0.04 0.00 - 0.04 x10(3)/mc L 02/11/2024 5:13 AM [facility] Blood VENOUS BLOOD SPECIMEN / Unknown Venipuncture / Unknown 02/11/2024 4:32 AM EST 02/11/2024 5:06 AM EST Dez Pérez MD HEMATOLOGY ORDERABLE S [facility] [place] [address] * Basic Metabolic Panel (02/11/2024 4:32 AM EST) Glucose 101 65 - 199 mg/dL 02/11/2024 5:36 AM EST [facility] Comment:Glucose Concentratio n >=200 mg/dL plus symptoms is consistent with Diabetes Mellitus. Blood Urea Nitrogen 13 8 - 18 mg/dL 02/11/2024 5:36 AM [facility] Creatinine 0.78 0.70 - 1.20 mg/dL 02/11/2024 5:36 AM EST [facility] Sodium 140 135 - 145 mMol/L 02/11/2024 5:36 AM EST [facility] Potassium 4.0 3.5 - 5.0 mMol/L 02/11/2024 5:36 AM [facility] Chloride 106 98 - 107 mMol/L 02/11/2024 5:36 AM [facility] Carbon Dioxide 24 22 - 31 mMol/L 02/11/2024 5:36 AM [facility] Anion Gap 10 5 - 15 mMol/L 02/11/2024 5:36 AM EST [facility] Calcium 9.1 8.5 - 10.5 mg/dL 02/11/2024 5:36 AM [facility] Est Glomerular Filtration Rate - Female 85 mL/min/1. 73 m?? 02/11/2024 5:36 AM [facility] Comment: This patient's estimated GFR [...] 02/11/2024 5:06 AM EST Dez Pérez MD CHEMISTRY ORDERABLES [facility] [place] [address] * Phosphorus (02/11/2024 4:32 AM EST) Phosphorus 4.3 2.5 - 4.5 mg/dL 02/11/2024 5:36 AM EST [facility] Blood VENOUS BLOOD SPECIMEN / Unknown Venipuncture / Unknown 02/11/2024 4:32 AM EST 02/11/2024 5:06 AM EST Mikki Jonesri RUM PROCESSING OPERATOR CHEMISTRY ORDER MARILIN Performing Organization Address City/[facility]/ZIP Co de Phone Number [facility] [place] [address] * Magnesium (02/11/2024 4:32 AM EST) Magnesium 0.90 0.69 - 1.07 mMol/L 02/11/2024 5:36 AM EST [facility] Blood VENOUS BLOOD SPECIMEN / Unknown Venipuncture / Unknown 02/11/2024 4:32 AM EST 02/11/2024 5:06 AM EST Mikki Jonesri RUM PROCESSING OPERATOR CHEMISTRY ORDER MARILIN Performing Organization Address City/[facility]/ZIP Co de Phone Number [facility] [place] [address] * Heparin (unfractionated) Level (02/10/2024 6:30 PM EST) UF Heparin 0.37 IU/mL 02/10/2024 6:53 PM EST [facility] Comment: Heparin (anti-Xa) levels should [...] SPECIMEN / Unknown Venipuncture / Unknown 02/10/2024 6:30 PM EST 02/10/2024 6:42 PM EST Dez Pérez MD HEMATOLOGY ORDERABLE S Performing Organization Address City/State/[facility] Co de Phone Number [facility] [place] [address] * Heparin (unfractionated) Level (02/10/2024 11:23 AM EST) Pathologist [facility] UF Heparin 0.50 IU/mL 02/10/2024 11:43 AM EST [facility] Comment: Heparin (anti-Xa) levels should [...] SPECIMEN / Unknown Venipuncture / Unknown 02/10/2024 11:23 AM EST 02/10/2024 11:30 AM EST Dez Pérez MD HEMATOLOGY ORDERABLE S Performing Organization Address [facility] Co de Phone Number [facility] [place] [address] * (ABNORMAL) Heparin (unfractionated) Level (02/10/2024 1:52 AM EST) UF Heparin 1.04([facility]) IU/mL 02/10/2024 2:28 AM EST [facility] Comment: Heparin (anti-Xa) levels should [...] SPECIMEN / Unknown Venipuncture / Unknown 02/10/2024 1:52 AM EST 02/10/2024 1:56 AM EST Dez Pérez MD HEMATOLOGY ORDERABLE S Performing Organization Address [facility]/ZIP Co de Phone Number [facility] [place] [address] * (ABNORMAL) Scan, Peripheral Blood (02/10/2024 1:51 AM EST) Pathologist [facility] RBC Morphology Normal 02/10/2024 2:36 AM [facility] Platelet Estimate Normal Normal 024 2:36 AM [facility] WBC MORPHOLOGY See Comment(A ) (none) 02/10/2024 2:36 AM [facility] Comment:Moderate Atypical Ly mphocytes PresentVacuolated Grans Blood VENOUS BLOOD SPECIMEN / Unknown Venipuncture / Unknown 02/10/2024 1:51 AM EST 02/10/2024 1:56 AM EST Dez Pérez MD HEMATOLOGY ORDERABLE S Performing Organization Address City/State/[facility] Co de Phone Number [facility] [place] [address] * (ABNORMAL) CBC (with Diff) (02/10/2024 1:51 AM EST) Pathologist [facility] White Blood Cell 8.38 4.00 - 9.50 x10(3)/mc L 02/10/2024 2:36 AM [facility] Red Blood Cell 4.33 4.00 - 5.21 x10(6)/mc L 02/10/2024 2:36 AM [facility] Hemoglobin 13.4 11.7 - 15.5 g/dL 02/10/2024 2:36 AM [facility] Hematocrit 40.8 35.7 - 45.8 % 02/10/2024 2:36 AM [facility] Mean Cell Volume 94.2 82.6 - 94.4 fL 02/10/2024 2:36 AM [facility] Mean Cell Hemoglobin 30.9 27.1 - 32.0 pg 02/10/2024 2:36 AM [facility] Mean Cell Hemoglobin Concentration 32.8 31.7 - 35.0 g/dL 02/10/2024 2:36 AM [facility] Platelet 259 145 - 357 x10(3)/mc L 02/10/2024 2:36 AM [facility] Mean Platelet Volume 8.4 7.6 - 12.9 fL 02/10/2024 2:36 AM [facility] RDW Standard Deviation 46.2(H) 37.0 - 46.0 fL 02/10/2024 2:36 AM [facility] RDW coefficient of variation 13.2 11.5 - 14.1 % 02/10/2024 2:36 AM [facility] NRBC% auto 0.0 % 02/10/2024 2:36 AM [facility] NRBC Absolute <0.01 <0.01 x10(3)/mc L 02/10/2024 2:36 AM [facility] Neutrophil % 34.9 % 02/10/2024 2:36 AM [facility] Comment:This is an appended report. These results have been appended to a previously preliminary verified report. Neutrophil Absolute (ANC) - Automated 2.92 1.70 - 6.10 x10(3)/mc L 02/10/2024 2:36 AM [facility] Comment:This is an appended report. These results have been appended to a previously preliminary verified report. Lymph % 55.1 % 02/10/2024 2:36 AM [facility] Comment:This is an appended report. These results have been appended to a previously preliminary verified report. Lymph Absolute 4.62(H) 0.90 - 3.20 x10(3)/mc L 02/10/2024 2:36 AM [facility] Comment:This is an appended report. These results have been appended to a previously preliminary verified report. Monocyte % 7.0 % 02/10/2024 2:36 AM [facility] Comment:This is an appended report. These results have been appended to a previously preliminary verified report. Monocyte Absolute 0.59 0.30 - 0.90 x10(3)/mc L 02/10/2024 2:36 AM [facility] Comment:This is an appended report. These results have been appended to a previously preliminary verified report. Eos % 1.9 % 02/10/2024 2:36 AM EST [facility] Comment:This is an appended report. These results have been appended to a previously preliminary verified report. Eos Absolute 0.16 0.00 - 0.40 x10(3)/mc L 02/10/2024 2:36 AM EST [facility] Comment:This is an appended report. These results have been appended to a previously preliminary verified report. Basophil % 0.4 % 02/10/2024 2:36 AM EST [facility] Comment:This is an appended report. These results have been appended to a previously preliminary verified report. Baso Absolute <0.04 0.00 - 0.10 x10(3)/mc L 02/10/2024 2:36 AM [facility] Comment:This is an appended report. These results have been appended to a previously preliminary verified report. Immature Gran % 0.7 % 2:36 AM EST [facility] Comment:This is an appended report. These results have been appended to a previously preliminary verified report. Immature Gran Absolute 0.06(H) 0.00 - 0.04 x10(3)/mc L 02/10/2024 2:36 AM [facility] Comment:This is an appended report. These results have been appended to a previously preliminary verified report. Blood VENOUS BLOOD SPECIMEN / Unknown Venipuncture / Unknown 02/10/2024 1:51 AM EST 02/10/2024 1:56 AM EST Dez Pérez MD HEMATOLOGY ORDERABLE S [facility] [place] [address] * Basic Metabolic Panel (02/10/2024 1:51 AM EST) Glucose 94 65 - 199 mg/dL 02/10/2024 2:24 AM [facility] Comment:Glucose Concentratio n >=200 mg/dL plus symptoms is consistent with Diabetes Mellitus. Blood Urea Nitrogen 9 8 - 18 mg/dL 02/10/2024 2:24 AM [facility] Creatinine 0.94 0.70 - 1.20 mg/dL 02/10/2024 2:24 AM [facility] Sodium 138 135 - 145 mMol/L 02/10/2024 2:24 AM [facility] Potassium 3.9 3.5 - 5.0 mMol/L 02/10/2024 2:24 AM [facility] Chloride 104 98 - 107 mMol/L 02/10/2024 2:24 AM [facility] Carbon Dioxide 24 22 - 31 mMol/L 02/10/2024 2:24 AM [facility] Anion Gap 10 5 - 15 mMol/L 02/10/2024 2:24 AM [facility] Calcium 8.9 8.5 - 10.5 mg/dL 02/10/2024 2:24 AM [facility] Est Glomerular Filtration Rate - Female 68 mL/min/1. 73 m?? 02/10/2024 2:24 AM [facility] Comment: This patient's estimated GFR [...] 02/10/2024 1:56 AM EST Dez Pérez MD CHEMISTRY ORDERABLES [facility] [place] [address] * Gold Tube HOLD (02/09/2024 12:35 PM EST) Gold Hold Hold for Add-on 02/09/2024 1:40 PM EST [facility] Blood VENOUS BLOOD SPECIMEN / Unknown 02/09/2024 12:35 PM EST 02/09/2024 12:42 PM EST Pardeep Gonzales MD CHEMISTRY ORDERABLES [facility] [place] [address] * Blue Tube HOLD (02/09/2024 12:35 PM EST) Blue Hold Hold for Add-on 02/09/2024 2:01 PM EST [facility] Blood VENOUS BLOOD SPECIMEN / Unknown 02/09/2024 12:35 PM EST 02/09/2024 12:42 PM EST Pardeep Gonzales MD HEMATOLOGY ORDERABLE S Performing Organization Address City/[facility]/ZIP Co de Phone Number [facility] [address] * (ABNORMAL) Basic Metabolic Panel (02/09/2024 12:35 PM EST) Pathologist [facility] Glucose 119 65 - 199 mg/dL 02/09/2024 1:14 PM EST [facility] Comment:Glucose Concentratio n >=200 mg/dL plus symptoms is consistent with Diabetes Mellitus. Blood Urea Nitrogen 6(L) 8 - 18 mg/dL 02/09/2024 1:14 PM EST [facility] Creatinine 0.70 0.70 - 1.20 mg/dL 02/09/2024 1:14 PM EST [facility] Sodium 140 135 - 145 mMol/L 02/09/2024 1:14 PM EST [facility] Potassium 3.7 3.5 - 5.0 mMol/L 02/09/2024 1:14 PM EST [facility] Chloride 105 98 - 107 mMol/L 02/09/2024 1:14 PM [facility] Carbon Dioxide 23 22 - 31 mMol/L 02/09/2024 1:14 PM [facility] Anion Gap 12 5 - 15 mMol/L 02/09/2024 1:14 PM EST [facility] Calcium 9.2 8.5 - 10.5 mg/dL 02/09/2024 1:14 PM EST [facility] Est Glomerular Filtration Rate - Female 97 mL/min/1. 73 m?? 02/09/2024 1:14 PM [facility] Comment: This patient's estimated GFR [...] BLOOD SPECIMEN / Unknown Venipuncture / Unknown 02/09/2024 12:35 PM EST 02/09/2024 12:41 PM EST Pardeep Gonzales MD CHEMISTRY ORDERABLES [facility] [place] [address] * CBC (with Diff) (02/09/2024 12:35 PM EST) White Blood Cell 8.17 4.00 - 9.50 x10(3)/mcL 02/09/2024 12:44 PM EST [facility] Red Blood Cell 4.61 4.00 - 5.21 x10(6)/mcL 02/09/2024 12:44 PM EST [facility] Hemoglobin 14.2 11.7 - 15.5 g/dL 02/09/2024 12:44 PM [facility] Hematocrit 42.4 35.7 - 45.8 % 02/09/2024 12:44 PM [facility] Mean Cell Volume 92.0 82.6 - 94.4 fL 02/09/2024 12:44 PM [facility] Mean Cell Hemoglobin 30.8 27.1 - 32.0 pg 02/09/2024 12:44 PM [facility] Mean Cell Hemoglobin Concentration 33.5 31.7 - 35.0 g/dL 02/09/2024 12:44 PM [facility] Platelet 283 145 - 357 x10(3)/mcL 02/09/2024 12:44 PM [facility] Mean Platelet Volume 8.3 7.6 - 12.9 fL 02/09/2024 12:44 PM [facility] RDW Standard Deviation 45.4 37.0 - 46.0 fL 02/09/2024 12:44 PM [facility] RDW coefficient of variation 13.4 11.5 - 14.1 % 02/09/2024 12:44 PM [facility] NRBC% auto 0.0 % 02/09/2024 12:44 PM [facility] NRBC Absolute <0.01 <0.01 x10(3)/mcL 02/09/2024 12:44 PM [facility] Neutrophil % 54.9 % 02/09/2024 12:44 PM [facility] Neutrophil Absolute (ANC) - Automated 4.49 1.70 - 6.10 x10(3)/mcL 02/09/2024 12:44 PM [facility] Lymph % 38.1 % 02/09/2024 12:44 PM [facility] Lymph Absolute 3.11 0.90 - 3.20 x10(3)/mcL 02/09/2024 12:44 PM [facility] Monocyte % 5.4 % 02/09/2024 12:44 PM EST [facility] Monocyte Absolute 0.44 0.30 - 0.90 x10(3)/mcL 02/09/2024 12:44 PM EST [facility] Eos % 1.0 % 02/09/2024 12:44 PM EST [facility] Eos Absolute 0.08 0.00 - 0.40 x10(3)/mcL 02/09/2024 12:44 PM EST [facility] Basophil % 0.2 % 02/09/2024 12:44 PM EST [facility] Baso Absolute <0.04 0.00 - 0.10 x10(3)/mcL 02/09/2024 12:44 PM EST [facility] Immature Gran % 0.4 % 12:44 PM EST [facility] Immature Gran Absolute <0.04 0.00 - 0.04 x10(3)/mcL 02/09/2024 12:44 PM EST [facility] Blood VENOUS BLOOD SPECIMEN / Unknown Venipuncture / Unknown 02/09/2024 12:35 PM EST 02/09/2024 12:41 PM EST Pardeep Gonzales MD HEMATOLOGY ORDERABLE S [facility] [place] [phone] * Arterial Duplex Leg, Unil (02/09/2024 12:17 PM EST) VB Text Report Department: Vascular Surgery Lab Patient: [id number] (ASHLEY GRAYSON) CPT: 95795 Referring Physician: PARDEEP GONZALES ?? Indications: ??pain [...] limb and left limb anastomosis of the lfiup-ex-jadogld bypass graft which suggest occlusion. 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 Maximum daily dose of acetaminophen from all sources not to exceed 4,000 mg. When ordered for pain, acetaminophen should be given even when other ordered pain medications are indicated., Routine Given 02/11/2024 11:48 AM EST 975 mg Given 02/11/2024 6:19 AM EST 975 mg Given 02/10/2024 11:32 PM EST 975 mg enoxaparin (Lovenox) (60 mg/0.6 mL) subcutaneous injection 60 mg 60 mg, Subcutaneous, EVERY 12 HOURS SCHEDULED (2 times per day), First dose on Thu02/11/24 at 1000, Until Discontinued, Routine Given 02/11/2024 9:42 AM EST 60 mg Left Lower Quadrant famotidine (Pepcid) tablet 20 mg 20 mg, Oral, 2 TIMES DAILY, First dose on Thu02/09/24 at 2100, Until Discontinued, Routine Given 02/11/2024 9:42 AM EST 20 mg Given 02/10/2024 9:20 PM EST 20 mg Given 02/10/2024 8:15 AM EST 20 mg heparin (porcine) (1,000 units/mL) injection 4,500 Units 4,500 Units (rounded from 4,496 Units = 80 Units/kg ? 56.2 kg), Intravenous, ONCE, 1 dose, On Thu02/09/24 at 1900, INITIAL LOADING DOSE Maximum loading dose 8,000 units, Routine Given 02/09/2024 8:14 PM EST 4,500 Units heparin (porcine) 50 units/mL in dextrose 5% 500 mL infusion 0-5,000 Units/hr (0-100 mL/hr), Intravenous, CONTINUOUS, Starting on Thu02/09/24 at 1900, Until Opal 02/11/24 at 0852, Begin infusion at 1,000 units per hr [...] - Per Protocol , Routine New Bag 02/11/2024 1:20 AM EST 850 Units/hr 17 mL/hr Rate/Dose Change 02/10/2024 3:32 AM EST 850 Units/hr 17 mL /hr New Bag 02/09/2024 8:18 PM EST 1,000 Units/hr 20 mL/hr HYDROmorphone (Dilaudid) tablet 2 mg 2 mg, Oral, EVERY 4 HOURS PRN, Starting on Thu02/09/24 at 1953, Until Thu02/11/24 at 1629, Pain, moderate pain (4-6), For adults, may give in place of other agent(s) ordered for pain (7-10) at patient request. If multiple routes of administration ordered, oral route first line., Routine HYDROmorphone (Dilaudid) tablet 4 mg 4 mg, Oral, EVERY 4 HOURS PRN, Starting on Thu02/09/24 at 1953, Until Thu02/11/24 at 1629, Pain, severe pain (7-10), If multiple routes of administration ordered, oral route first line., Routine lactated ringers infusion 50 mL/hr, Intravenous, CONTINUOUS, Starting on Thu02/09/24 at 1615, Until Thu02/10/24 at 1551 New Bag 02/10/2024 2:43 PM EST 50 mL/hr 50 mL /hr New Bag 02/09/2024 8:18 PM EST 50 mL/hr 50 mL/hr lidocaine (Lidoderm) 5% patch 1 patch 1 patch, Transdermal, Administer over 12 Hours, EVERY 24 HOURS, First dose on Thu02/09/24 at 2015, Until Discontinued, Apply patch(es) for 12 hours, and then remove for 12 hours., Routine Patch Applied 02/09/2024 8:26 PM EST 1 patch 20-Other (document in comment section) lidocaine (Xylocaine) 1% (10 mg/mL) injection 3 mg 3 mg (0.3 mL), Subcutaneous, ONCE PRN, 1 dose, Starting on Thu02/09/24 at 1554, Until Thu02/11/24 at 1629, for discomfort with PIV insertion, Routine loratadine (Claritin) tablet 10 mg 10 mg, Oral, DAILY, First dose on Thu02/10/24 at 0900, Until Discontinued Given 02/11/2024 9:42 AM EST 10 mg Given 02/10/2024 8:15 AM EST 10 mg melatonin tablet 3 mg 3 mg, Oral, NIGHTLY PRN, Starting on Thu02/09/24 at 1554, Until Thu02/11/24 at 1629, Sleep, Sleep, Routine methocarbamoL (Robaxin) tablet 1,500 mg 1,500 mg, Oral, 3 TIMES DAILY, 9 doses, First dose on Thu02/09/24 at 2100, Last dose on Thu02/12/24 at 1500, Routine Given 02/11/2024 9:42 AM EST 1,500 m g Given 02/10/2024 9:19 PM EST 1,500 mg Given 02/10/2024 2:35 PM EST 1,500 mg methocarbamoL (Robaxin) tablet 750 mg 750 mg, Oral, 3 TIMES DAILY, First dose on Thu02/12/24 at 2100, Until Discontinued, Routine montelukast (Singulair) chewable tablet 5 mg 5 mg, Oral, NIGHTLY, First dose on Thu02/09/24 at 2100, Until Discontinued, Routine Given 02/10/2024 9:19 PM EST 5 mg Given 02/09/2024 9:35 PM EST 5 mg polyethylene glycoL (Miralax) packet 17 g 17 g, Oral, DAILY, First dose on Thu02/10/24 at 0900, Until Discontinued, Hold for loose stool. , Routine senna-docusate (Pericolace) 8.6-50 mg per tablet 2 tablet 2 tablet, Oral, 2 TIMES DAILY, First dose on Thu02/09/24 at 2100, Until Discontinued, Hold for loose stool. , Routine Given 02/09/2024 8:23 PM EST 2 tablets sodium chloride 0.9 % (flush) (BD PosiFlush Normal Saline 0.9) flush 5 mL 5 mL, Intravenous, 2 TIMES DAILY, First dose on Thu02/09/24 at 2100, Until Discontinued, Routine Given 02/11/2024 9:42 AM EST 5 mLs Given 02/09/2024 8:25 PM EST 5 mLs sodium chloride 0.9 % (flush) (BD PosiFlush Normal Saline 0.9) flush 5-20 mL 5-20 mL, Intravenous, EVERY 1 MIN PRN, Starting on Thu02/09/24 at 1554, Until Thu02/11/24 at 1629, flush, Flush pertains to all indwelling lines. Flush per protocol found in the job aid using the link provided on this medication record., Routine documented in this encounter Active and Recently Administered Medications Times are shown in EST. Scheduled Medication Order 02/09/2024 02/10/2024 02/11/2024 acetaminophen (Tylenol) tablet 975 mg 975 mg, Oral, EVERY 6 HOURS SCHEDULED, First dose (after last modification) on Thu02/09/24 at 2015, Until Discontinued, Administer for pain or temperature greater than or equal to 38.2 degrees Celsius. Maximum daily dose of acetaminophen from all sources not to exceed 4,000 mg. When ordered for pain, acetaminophen should be given even when other ordered pain medications are indicated., Routine 2021 (Given - Provider: Daiana Sharp RN)2342 (Given - Provider: Daiana Sharp RN) 0512 (Given - Provider: Mona Heredia RN)1227 (Given - Provider: Missy Bach RN)1723 (Not Given - Provider: Madison Mosley RN - Reason: Order parameters not met - Comment: pt will receive more than 4000mg in less than 24 hrs with this dose)2332 (Given - Provider: Mona Heredia RN) 0619 (Given - Provider: Daiana Sharp RN)1148 (Given - Provider: Madison Mosley, NEYDA) enoxaparin (Lovenox) (60 mg/0.6 mL) subcutaneous injection 60 mg 60 mg, Subcutaneous, EVERY 12 HOURS SCHEDULED (2 times per day), First dose on Thu02/11/24 at 1000, Until Discontinued, Routine 09 (Given - Provider: Madison Mosley, NEYDA) famotidine (Pepcid) tablet 20 mg 20 mg, Oral, 2 TIMES DAILY, First dose on Thu02/09/24 at 2100, Until Discontinued, Routine 2022 (Given - Provider: Daiana Sharp RN) 0815 (Given - Provider: Madison Mosley, NEYDA)2120 (Given - Provider: Daiana Sharp RN) 0942 (Given - Provider: Madison Mosley RN) heparin (porcine) (1,000 units/mL) injection 4,500 Units (COMPLETED) 4,500 Units (rounded from 4,496 Units = 80 Units/kg ? 56.2 kg), Intravenous, ONCE, 1 dose, On Thu02/09/24 at 1900, INITIAL LOADING DOSE Maximum loading dose 8,000 units, Routine 2013 (Given - Provider: Daiana Sharp RN - Comment: Given on arrival to unit from ED) lidocaine (Lidoderm) 5% patch 1 patch 1 patch, Transdermal, Administer over 12 Hours, EVERY 24 HOURS, First dose on Thu02/09/24 at 2014, Until Discontinued, Apply patch(es) for 12 hours, and then remove for 12 hours., Routine 2025 (Patch Applied - Provider: Daiana Sharp RN - Comment: left lower leg) 814 (Patch Removed - Provider: Madison Mosley RN)2118 (Not Given - Provider: Daiana Sharp RN - Reason: Patient/family refused) loratadine (Claritin) tablet 10 mg 10 mg, Oral, DAILY, First dose on Thu02/10/24 at 0900, Until Discontinued 08 (Given - Provider: Madison Mosley RN) 0942 (Given - Provider: Madison Mosley RN) methocarbamoL (Robaxin) tablet 1,500 mg(Linked Group 1) 1,500 mg, Oral, 3 TIMES DAILY, 9 doses, First dose on Thu02/09/24 at 2100, Last dose on Thu02/12/24 at 1500, Routine 2021 (Given - Provider: Daiana Sharp RN) 0815 (Given - Provider: Madison Mosley RN)143 (Given - Provider: Madison Mosley RN)2118 (Given - Provider: Daiana Sharp RN) 0942 (Given - Provider: Madison Mosley RN) methocarbamoL (Robaxin) tablet 750 mg(Linked Group 1) 750 mg, Oral, 3 TIMES DAILY, First dose on Thu02/12/24 at 2100, Until Discontinued, Routine montelukast (Singulair) chewable tablet 5 mg 5 mg, Oral, NIGHTLY, First dose on Thu02/09/24 at 2100, Until Discontinued, Routine 2134 (Given - Provider: Mona Heredia, NEYDA) 2118 (Given - Provider: Daiana Sharp RN) polyethylene glycoL (Miralax) packet 17 g 17 g, Oral, DAILY, First dose on Thu02/10/24 at 0900, Until Discontinued, Hold for loose stool. , Routine 0816 (Not Given - Provider: Madison Mosley RN - Reason: Patient/family refused) 0943 (Not Given - Provider: Madison Mosley RN - Reason: Patient/family refused) senna-docusate (Pericolace) 8.6-50 mg per tablet 2 tablet 2 tablet, Oral, 2 TIMES DAILY, First dose on Thu02/09/24 at 2100, Until Discontinued, Hold for loose stool. , Routine 2022 (Given - Provider: Daiana Sharp RN) 0816 (Not Given - Provider: Madison Mosley RN - Reason: Patient/family refused)2099 (Not Given - Provider: Daiana Sharp RN - Reason: Patient/family refused) 0943 (Not Given - Provider: Madison Mosley RN - Reason: Patient/family refused) sodium chloride 0.9 % (flush) (BD PosiFlush Normal Saline 0.9) flush 5 mL 5 mL, Intravenous, 2 TIMES DAILY, First dose on Thu02/09/24 at 2100, Until Discontinued, Routine 2024 (Given - Provider: Daiana Sharp RN) 0816 (Not Given - Provider: Madison Mosley RN - Reason: See comment - Comment: IVF infusing)2122 (Not Given - Provider: Daiana Sharp RN - Reason: Order parameters not met - Comment: IV infusing) 42 (Given - Provider: Madison Mosley RN) Continuous Medication Order 02/09/2024 02/10/2024 02/11/2024 heparin (porcine) 50 units/mL in dextrose 5% 500 mL infusion (CANCELED)(Linked Group 2) 0-5,000 Units/hr (0-100 mL/hr), Intravenous, CONTINUOUS, Starting on Thu02/09/24 at 1900, Until Opal 11/7/24 at 0852, Begin infusion at 1,000 units per hr [...] UFH Level - Per Protocol , Routine 2018 (New Bag - Provider: Daiana Sharp RN) 0233 (Paused - Provider: Daiana Sharp RN - Comment: UFH 1.04)0332 (Rate/Dose Change - Provider: Daiana Sharp RN) 0120 (New Bag - Provider: Mona Heredia RN)0942 (Stopped - Provider: Madison Mosley RN) lactated ringers infusion (CANCELED) 50 mL/hr, Intravenous, CONTINUOUS, Starting on Thu02/09/24 at 1615, Until Thu02/10/24 at 1551 2018 (New Bag - Provider: Daiana Sharp, NEYDA) 1443 (New Bag - Provider: Madison Mosley RN) PRN Medication Order 02/09/2024 02/10/2024 02/11/2024 HYDROmorphone (Dilaudid) tablet 2 mg(Linked Group 3) 2 mg, Oral, EVERY 4 HOURS PRN, Starting on Thu02/09/24 at 1953, Until Opal 02/11/24 at 1629, Pain, moderate pain (4-6), For adults, may give in place of other agent(s) ordered for pain (7-10) at patient request. If multiple routes of administration ordered, oral route first line., Routine HYDROmorphone (Dilaudid) tablet 4 mg(Linked Group 3) 4 mg, Oral, EVERY 4 HOURS PRN, Starting on Thu02/09/24 at 1953, Until Opal 02/11/24 at 1629, Pain, severe pain (7-10), If multiple routes of administration ordered, oral route first line., Routine lidocaine (Xylocaine) 1% (10 mg/mL) injection 3 mg 3 mg (0.3 mL), Subcutaneous, ONCE PRN, 1 dose, Starting on Thu02/09/24 at 1554, Until Opal 02/11/24 at 1629, for discomfort with PIV insertion, Routine melatonin tablet 3 mg 3 mg, Oral, NIGHTLY PRN, Starting on Thu02/09/24 at 1554, Until Opal 02/11/24 at 1629, Sleep, Sleep, Routine sodium chloride 0.9 % (flush) (BD PosiFlush Normal Saline 0.9) flush 5-20 mL 5-20 mL, Intravenous, EVERY 1 MIN PRN, Starting on Thu02/09/24 at 1554, Until Opal 02/11/24 at 1629, flush, Flush pertains to all indwelling lines. Flush per protocol found in the job aid using the link provided on this medication record., Routine Linked Groups Order Group 1: methocarbamoL (Robaxin) tablet 1,500 mgJump to med 1,500 mg, Oral, 3 TIMES DAILY, 9 doses, First dose on Thu02/09/24 at 2100, Last dose on Thu02/12/24 at 1500, Routine Followed by methocarbamoL (Robaxin) tablet 750 mgJump to med 750 mg, Oral, 3 TIMES DAILY, First dose on Thu02/12/24 at 2100, Until Discontinued, Routine Group 2: heparin (porcine) 50 units/mL in dextrose 5% 500 mL infusion (CANCELED)Jump to med 0-5,000 Units/hr (0-100 mL/hr), Intravenous, CONTINUOUS, Starting on Thu02/09/24 at 1900, Until Thu02/11/24 at 0852, Begin infusion at 1,000 units per hr [...] And heparin (porcine) (1,000 units/mL) injection 0-8,000 Units (CANCELED) 0-8,000 Units, Intravenous, BOLUS PER HEPARIN PROTOCOL, Starting on Thu02/09/24 at 1900, Until Opal 02/11/24 at 0852, Per Protocol, START ADJUSTMENT SCHEDULE 6 HOURS [...] 0.2 international unit/mL: No Bolus, Routine Group 3: HYDROmorphone (Dilaudid) tablet 2 mgJump to med 2 mg, Oral, EVERY 4 HOURS PRN, Starting on Thu02/09/24 at 1953, Until Opal 02/11/24 at 1629, Pain, moderate pain (4-6), For adults, may give in place of other agent(s) ordered for pain (7-10) at patient request. If multiple routes of administration ordered, oral route first line., Routine Or HYDROmorphone (Dilaudid) tablet 4 mgJump to med 4 mg, Oral, EVERY 4 HOURS PRN, Starting on Thu02/09/24 at 1953, Until Opal 02/11/24 at 1629, Pain, severe pain (7-10), If multiple routes of administration ordered, oral route first line., Routine documented in this encounter Care Teams Agricultural Commodities Inspector Relationship Specialty Start Date End Date Estrella Mckay, RUM PROCESSING OPERATOR [place] [address] PCP - General Family Medicine 12/14/23 documented as of this encounter
--- OUTSIDE RECORDS SUMMARY | 2024-02-29 15:52 | XMS_ITS | Encounter Summary ---
Author Organization [place] [address] Care Team Providers Care Chemist Internship Name Role Phone Estrella Mckay APRN Primary Care Provider [phone] Encounter Details Date Type Department Care Team (Late st Contact Info) Description 01/28/2024 Orders Only Hematology [place] [phone] Edmund Truong MD [facility] DR HEMATOLOGY [place] [address] Systemic mastocytosis (Primary Dx) Social History Tobacco [...] AM EST Office Visit [place] [phone] Sarah Bah APRN [facility] [place] [address] 03/04/2024 7:00 AM EST Appointment Mammography/DXA at [place] [address] Edmund Truong MD [facility] DR [place] [address] 03/07/2024 10:45 AM EST Laboratory Appointment Lab at [facility] Hematology Oncology [address] [place] [address] 03/07/2024 11:30 AM EST Office Visit Hematology and Oncology at [place] [address] Bennett Turner RN 03/07/2024 11:30 AM EST Office Visit Hematology and Oncology at [place] [address] Edmund Truong MD [facility] DR [place] [address] 03/10/2024 8:15 AM EST Laboratory Appointment Lab at [facility] Hematology [place] [address] 03/10/2024 8:30 AM EST Scheduled View Only Hematology and Oncology at [place] [address] 03/10/2024 9:00 AM EST Office Visit Hematology and Oncology at [place] [address] Omid Degroot MD [facility] [place] [address] 03/10/2024 9:00 AM EST Office Visit Hematology and Oncology at [place] [address] Bennett Turner RN 03/25/2024 9:30 AM EST Tech [place] [phone] Carlton Higgins, RVT 03/25/2024 10:15 AM EST Office Visit [place] [phone] Tomy Raymond MD [facility] [place] [address] documented as of this encounter Visit Diagnoses Diagnosis Systemic mastocytosis- Primary Malignant mast cell tumors, unspecified site, extranodal and solid organ sites documented in this encounter Care Teams Chemist Internship Relationship Specialty Start Date End Date Estrella Mckay, INTERNAL MEDICINE NURSE [facility] ADRIANA [place] [address] PCP - General Family Medicine 12/14/23 documented as of this encounter
--- OUTSIDE RECORDS SUMMARY | 2024-02-29 15:52 | XMS_ITS | Encounter Summary ---
Author Organization [facility] [place] [address] Care Team Providers Care Seed Specialist Name Role Phone Estrella Mckay APRN Primary Care Provider [phone] Encounter Details Date Type Department Care Team (Late st Contact Info) Description 02/15/2024 Notes [place] [phone] Mikki Damon NUTRITION WORKER [facility] [place] [address] Social History Tobacco Use Types Packs/Day Years Used Date Smoking Tobacco: Former Cigarettes 1 30 Q uit: 2012 Smokeless Tobacco: Never Comments:3/4TH PK A DAY Alcohol Use Standard Drinks/Week Comments No 0 (1 standard drink = 0.6 oz pur e alcohol) [facility] Utilities Answer Date Recorded In the past 12 months has [employer], gas, oil, or water [employer] threatened to shut off services in your [...] living in a fci (including now)? No 02/11/2024 IPV Inpatient Questions [...] as of this encounter Progress Notes * Mikki Damon APRN - 02/15/2024 12:48 PM EST 02/15/24 12:48 PM Called patient at home to review lovenox instructions for care. She will be receiving an epidural with our APS team tomorrow morning 02/16/24. She was instructed to HOLD her p.m. lovenox dose today and tomorrow morning. Her last dose of SQ Lovenox was today, 02/15/24 at 0715. She verbalized understanding and will HOLDher evening and next morning dose of Lovenox. Mikki Damon APRN documented in this encounter Plan of Treatment Upcoming Encounters Date Type Department Care Team (Late st Contact Info) Description 03/02/2024 8:30 AM EST Office [place] [phone] Sarah Bah APRN [facility] [place] [address] 03/04/2024 7:00 AM EST Appointment Mammography/DXA at [place] [address] Edmund Truong MD [facility] [place] [address] 03/07/2024 10:45 AM EST Laboratory Appointment Lab at [facility] Hematology Oncology [address] [place] [address] 03/07/2024 11:30 AM EST Office Visit Hematology and Oncology at [place] [address] Bennett Turner RN 03/07/2024 11:30 AM EST Office Visit Hematology and Oncology at [place] [address] Edmund Truong MD [facility] [place] [address] 03/10/2024 8:15 AM EST Laboratory Appointment Lab at [facility] Hematology Oncology [address] [place] [address] 03/10/2024 8:30 AM EST Scheduled View Only Hematology and Oncology at [place] [address] 03/10/2024 9:00 AM EST Office Visit Hematology and Oncology at [place] [address] Omid Degroot MD [facility] [place] [address] 03/10/2024 9:00 AM EST Office Visit Hematology and Oncology at [place] [address] Bennett Turner RN 03/25/2024 9:30 AM EST Tech Visit Vascular Lab [place] [address] Carlton Higgins, RVT 03/25/2024 10:15 AM EST Office [place] [phone] Tomy Raymond MD [facility] [place] [address] documented as of this encounter Visit Diagnoses Not on filedocumented in this encounter Care Teams Seed Specialist Relationship Specialty Start Date End Date Estrella Mckay, NUTRITION WORKER [facility] [place] [address] PCP - General Family Medicine 12/14/23 documented as of this encounter
--- OUTSIDE RECORDS SUMMARY | 2024-02-29 15:52 | XMS_ITS | Encounter Summary ---
Author Organization [facility] Address [facility] [place] [address] Care Team Providers Care Metal Riveting Machine Operator Name Role Phone Estrella Mckay APRN Primary Care Provider [phone] Encounter Details Date Type Department Care Team (Late st Contact Info) Description 02/04/2024 Telephone Hematology [place] [phone] Antonio Tavares MD [facility] HEMATOLOGY/[place] [address] Social History Tobacco Use Types Packs/Day Years Used Date Smoking Tobacco: Former Cigarettes 1 30 Q uit: 2012 Smokeless Tobacco: Never Comments:3/4TH PK A DAY Alcohol Use Standard Drinks/Week Comments No 0 (1 standard drink = 0.6 oz pur e alcohol) [facility] Utilities Answer Date Recorded In the past 12 months has [employer], [employer], oil, or water [employer] threatened to shut off services in your [...] living in a custodial (including now)? No 02/05/2024 DH IPV Inpatient [...] as of this encounter Progress Notes * Antonio Tavares MD - 02/04/2024 6:16 PM EDT I received a page from the ED regarding new clot in Ms. Ashley Kee. 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 Hematology has been consulted regarding use of aspirin and LMWH in the setting of new arterial clot/occlusion of arterial graft and systemic mastocytosis on clinical trial. It is reported that Ashley has had left calf pain ongoing for 4 days prior to presentation along with development of cold left foot and numbness that led her to the ED upon guidance from her hematology team. On presentation, she was hemodynamically stable. Her labs and imaging ordered thus far are as follows: CBC: WBC 9.4, Hb 14.9, PLT 266 CMP: Na 140, K 3.8, Cr 0.74, AST 13, ALT 18, Tbili 0.3 (direct <0.2) ABIs: Interpretation: RIGHT: Moderately severe lower extremity arterial occlusive disease. Toe-brachial index indicates presence of moderate arterial occlusive disease in the foot. 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 LEFT: Severe lower extremity arterial occlusive disease. Toe waveform is absent. 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 CT Angiogram aortic lower extremity runoff: 1. Status post aortobiiliac bypass. 2. 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 LLE Duplex: Interpretation: LEFT: No evidence of lower extremity deep venous thrombosis. Incidental finding of occluded distal left limb of the bkygv-ju-tqikivq bypass graft. There does appear to be flow within the [place] common femoral artery with reconstitution of flow at the femoral bifurcation. Assessment and recommendations: After discussion with vascular surgery, Ashley's occlusion of her bypass is faster than what would be expected in terms of time frame to occlusion (although still possible that her clotting is sales representative health insurance of progression of known arterial disease). Systemic mastocytosis can be associated with increased risk of arterial clotting (Pura et al., Atherosclerosis, 2018), though her underlying arterial disease may be playing a role as well. Should it be suspected that her known atherosclerotic disease is not the driving factor in her new occlusion of her bypass graft, would inquire about age-appropriate cancer screening to ensure a third process (aside from known arterial disease and mastocytosis) are not at play. Her CT angiogram did note Diffuse heterogeneity of osseous structures with increased sclerosis. Diffuse metastatic disease can be considered. This is likely from her knownsystemic mastocytosis and was amongst her presentation for it. Given her age of presentation, further workup of inherited thrombophilias is not indicated at this time. Her systemic mastocytosis in itself is not a contra-indication to receiving either aspirin or lovenox. However, there is note of hives to ibuprofen and I am told there is question of possible aspirin allergy. I searched the chart for aspirin and could not find any documentation of this. If there are any specific question regarding evaluation for an allergy, would defer to allergy & immunolog y. If Ashley is not taking an antiplatelet agent, would defer to vascular surgery's thoughts regarding lack of antiplatelet agent as a potential etiology to a bypass graft occluding quicker than expected. Ashley is currently being screened for participation in clinical trial [id number]. As she has not yet started experimental agent (KIT inhibitor), this is not playing a role in her current newfound arterial clotting. The hematology consult service will formally see this patient tomorrow. documented in this encounter Plan of Treatment Upcoming Encounters Date Type Department Care Team (Late st Contact Info) Description 03/02/2024 8:30 AM EST Office [place] [phone] Sarah Bah APRN [facility] [place] [address] 03/04/2024 7:00 AM EST Appointment Mammography/DXA at [place] [phone] Edmund Truong MD [facility] DR HEMATOLOGY [place] [address] 03/07/2024 10:45 AM EST Laboratory Appointment Lab at [facility] Hematology Oncology [address] [place], [place] [phone] 03/07/2024 11:30 AM EST Office Visit Hematology and Oncology at [place] [phone] Bennett Turner RN 03/07/2024 11:30 AM EST Office Visit Hematology and Oncology at [place] [phone] Edmund Truong MD [facility] DR HEMATOLOGY [place] [address] 03/10/2024 8:15 AM EST Laboratory Appointment Lab at [facility] Hematology Oncology [address] [place] [address] 03/10/2024 8:30 AM EST Scheduled View Only Hematology and Oncology at [place] [address] 03/10/2024 9:00 AM EST Office Visit Hematology and Oncology at [place] [address] Omid Degroot MD [facility] [place] [place] [address] 03/10/2024 9:00 AM EST Office Visit Hematology and Oncology at [place] [address] Bennett Turner, RN 03/25/2024 9:30 AM EST Tech Visit Vascular Lab at [place] [address] Carlton Higgins, RVT 03/25/2024 10:15 AM EST Office Visit Vascular Surgery at [place] [address] Tomy Raymond MD [facility] [place] [address] documented as of this encounter Visit Diagnoses Not on filedocumented in this encounter Care Teams Metal Riveting Machine Operator Relationship Specialty Start Date End Date Estrella Mckay, BESSEMER [place] [address] PCP - General Family Medicine 12/14/23 documented as of this encounter
[2024-02-29 15:53] LABS: Abs Immature Grans 0.11 10^3/uL (0.0-0.06); Absolute Basophil Count 0.05 10^3/uL (0.0-0.2); Absolute Eosinophil Count 0.08 10^3/uL (0.0-0.7); Absolute Lymphocyte Count 2.34 10^3/uL (1.2-3.4); Absolute Monocyte Count 1.08 10^3/uL (0.1-0.8); Basophils % 0.4 %; Eosinophils % 0.6 %; HCT 31.9 % (36.0-46.0); HGB 10.4 g/dL (11.2-15.7); Immature Grans % 0.9 %; Lymphocytes % 18.2 %; MCH 30.4 pg (27.0-33.0); MCHC 32.6 % (32.0-36.0); MCV 93 fL (80-95); MPV 8.6 fL (8.0-11.0); Monocytes % 8.4 %; Neutrophils % 71.5 %; Platelet Count 525 10^3/uL (130-400); RBC 3.42 10^6/uL (3.93-5.22); RDW 13.3 % (11.7-14.6); RDW-SD 45.7 fL; WBC 12.87 10^3/uL (4.4-10.8)
--- OUTSIDE RECORDS SUMMARY | 2024-02-29 15:53 | XMS_ITS | Encounter Summary ---
[place] [address] Care Team Providers Care Multiple Punch Press Operator Name Role Phone Estrella Mckay APRN Primary Care Provider [phone] Encounter Details Date Type Department Care Team (Latest Contact Info) Description 01/28/2024 10:08 AM EDT - 01/28/2024 11:59 PM EDT Hospital Encounter Non[place] [address] Systemic mastocytosis Discharge Disposition: Home Social History Tobacco Use [...] 11 12/18/2023 documented as of this encounter Plan of Treatment Upcoming Encounters Date Type Department Care Team (Late st Contact Info) Description 03/02/2024 8:30 AM EST Office Visit [place] [phone] Sarah Bah APRN [facility] [place] [address] 03/04/2024 7:00 AM EST Appointment Mammography/DXA at [place] [phone] Edmund Truong MD [facility] DR [place] [address] 03/07/2024 10:45 AM EST Laboratory Appointment Lab at [facility] Hematology Oncology [address] [place] [phone] 03/07/2024 11:30 AM EST Office Visit Hematology [place] [phone] Bennett Turner RN 03/07/2024 11:30 AM EST Office Visit Hematology [place] [phone] Edmund Truong MD [facility] DR [place] [address] 03/10/2024 8:15 AM EST Laboratory Appointment Lab at [facility] Hematology Oncology [address] [place] [phone] 03/10/2024 8:30 AM EST Scheduled View Only Hematology and Oncology at [place] [phone] 03/10/2024 9:00 AM EST Office Visit Hematology and Oncology at [place] [phone] Omid Degroot MD [facility] [place] [address] 03/10/2024 9:00 AM EST Office Visit Hematology and Oncology at [place] [phone] Bennett Turner RN 03/25/2024 9:30 AM EST Tech Visit Vascular Lab at [place] [phone] Carlton Higgins, RVT 03/25/2024 10:15 AM EST Office Visit [place] [phone] Tomy Raymond MD [facility] [place] [address] documented as of this encounter Procedures Procedure Name Priority Date/Time Associated Diagnosis Comments EKG 12-LEAD Routine 01/28/2024 10:13 AM EDT Systemic mastocytosis documented in this encounter Results * EKG 12 Lead (01/28/2024 10:13 AM EDT) Ventricular rate 70 BPM MUSE SYSTEM Atrial Rate 70 BPM MUSE SYSTEM P-R Interval 152 ms MUSE SYSTEM QRS Duration 136 ms MUSE SYSTEM Q-T Interval 446 ms MUSE SYSTEM QTC Calculated (Bezet) 481 ms MUSE SYSTEM Calculated P [place] 41 degrees MUSE SYSTEM Calculated R [place] -125 degrees MUSE SYSTEM Calculated T [place] 34 degrees MUSE SYSTEM INTERPRETATION Normal sinus rhythm Right bundle branch block Abnormal ECG No previous ECGs available Confirmed by MD Joel, Dony ([id number]) on 01/28/2024 9:41:09 PM MUSE SYSTEM 01/28/2024 10:1 3 AM EDT 01/28/2024 9:41 PM EDT Edmund Truong MD ECG ORDERABLES MUSE SYSTEM documented in this encounter Visit Diagnoses Diagnosis Systemic mastocytosis Malignant mast cell tumors, unspecified site, extranodal and solid organ sites documented in this encounter Care Teams Multiple Punch Press Operator Relationship Specialty Start Date End Date Estrella Mckay, PARAM [place] [address] [place] [address] PCP - General Family Medicine 12/14/23 documented as of this encounter
--- OUTSIDE RECORDS SUMMARY | 2024-02-29 15:53 | XMS_ITS | Encounter Summary ---
Author Organization [place] [address] Care Team Providers Care Manager Of Broadcast Content Name Role Phone Estrella Mckay APRN Primary Care Provider [phone] Encounter Details Date Type Department Care Team (Late st Contact Info) Description 01/25/2024 8:30 AM EDT Office Visit Hematology [place] [phone] Bennett Turner RN Systemic mastocytosis Social History Tobacco Use Types Packs/Day Years Used Date Smoking Tobacco: Former Cigarettes 1 30 Q uit: 2012 Smokeless Tobacco: Never Comments:3/4TH PK A DAY Alcohol Use Standard Drinks/Week Comments No 0 (1 standard drink = 0.6 oz pur e alcohol) [facility] Inpatient Questions Answer Date Recorded Does [...] Progress Notes * Bennett Turner RN - 01/25/2024 8:30 AM EDT RESEARCH INFORMED CONSENT NOTE [id number]: (SUMMIT) A MULTI-PART, RANDOMIZED, DOUBLE-BLIND, PLACEBO-CONTROLLED PHASE 2 CLINICAL STUDY OF THE SAFETY AND EFFICACY OF [id number] IN SUBJECTS WITH NONADVANCED SYSTEMIC MASTOCYTOSIS. Date: 01/25/2024 Objective of visit: Meet with the patient in clinic at the request of Dr. Truong to provide further information regarding protocol [id number], answer questions or concerns about study plan and evaluate interest in study participation. Dr. truong has introduced the study and discussed risks, benefi ts, and other alternatives to study treatment. Information Provided: Protocol was reviewed with Ashley Kee including, a description of the proposed treatment, medications, efficacy assessments, and follow-up including duration of subject's participation in study. Potential side effects and risks were reviewed. The patient was informed regarding the uncertainties, both in terms of benefit as well as risks that are part of participation in clinical trials. Reviewed alternative treatments per study consent document. Discussed confidentiality of patient's health information as specified in the protocol. Ashley Kee was advised that they may discontinue treatment at any time and that refusing to participate or discontinuing treatment will not compromise the patient's access to treatment options or care. Ashley Kee had previously been given written information regarding the protocol (informed consent document) and reports that they have had adequate time to review the information. They were given adequate time to ask questions and review concerns, all of which were answered to the patient's satisfaction. Specifically clarified schedule of screening, randomization, and treatment. Financial responsibility as part of clinical trials also reviewed. Discussed that this study does/does not providecompensation for travel/lodging/food/ study activity completion. Business card for Hiwot Blancas, Research Financial Counselor, provided and advised that Hiwot will reach out for initial evaluation as per her workflow. Assessment/Outcome: Ashley Kee verbalized understanding of protocol and consents for treatment. Patient signed and dated consent, copy of signed informed consent document given to patient. Original, signed informed consent document Version 500 [id number], [facility] [id number], effective date 09/17/2023 given to GARLAND Castro for scanning into patient's electronic medical record. Written informed consent was obtained prior to any study procedures being done. *I attest that I amcertified and authorized to obtain legally effective informed consent from human subject participants per policy #99274 v.1* Plan: 1. Pt will be enrolled on study [id number] pending eligibility confirmation. 2. Patient to begin on-line questionnaires today. Add downloaded and patient able to sign on. 3. Screening labs, EKG,dietary counseling, MRI, Provider and AE assessment to be completed for screening on 01/28/24. documented in this encounter Plan of Treatment Upcoming Encounters Date Type Department Care Team (Late st Contact Info) Description 03/02/2024 8:30 AM EST Office [place] [phone] Sarah Bah APRN [facility] [place] [address] 03/04/2024 7:00 AM EST Appointment Mammography[place] [phone] Edmund Truong MD [facility] DR HEMATOLOGY [place] [address] 03/07/2024 10:45 AM EST Laboratory Appointment Lab at [facility] [place] [address] [place] [phone] 03/07/2024 11:30 AM EST Office Visit Hematology [place] [phone] Bennett Turner RN 03/07/2024 11:30 AM EST Office Visit [place]ematology [place] [address] Edmund Truong MD [facility] DR HEMATOLOGY [place] [address] 03/10/2024 8:15 AM EST Laboratory Appointment Lab at [facility] [place] On[place] [address] [place] [phone] 03/10/2024 8:30 AM EST Scheduled View Only Hematology [place] [address] 03/10/2024 9:00 AM EST Office Visit Hematology and Oncology at [place] [phone] Omid Degroot MD [facility] [place] [address] 03/10/2024 9:00 AM EST Office Visit Hematology and Oncology at [place] [phone] Bennett Turner, RN 03/25/2024 9:30 AM EST Tech Visit Vascular Lab at [place] [phone] Carlton Higgins, RVT 03/25/2024 10:15 AM EST Office Visit Vascular Surgery at [place] [phone] Tomy Raymond MD [facility] [place] [address] documented as of this encounter Visit Diagnoses Diagnosis Systemic mastocytosis Malignant mast cell tumors, unspecified site, extranodal and solid organ sites documented in this encounter Care Teams Manager Of Broadcast Content Relationship Specialty Start Date End Date Estrella Mckay, SENIOR RD ENGINEER [place] [address] [place] [address] PCP - General Family Medicine 12/14/23 documented as of this encounter
--- OUTSIDE RECORDS SUMMARY | 2024-02-29 15:53 | XMS_ITS | Encounter Summary ---
[place] [address] Care Team Providers Care Aging Room Operator Name Role Phone Estrella Mckay APRN Primary Care Provider [phone] Reason for Visit * Auth/Cert (Routine) Specialty Diagnoses / Procedures Referred By Contac t Referred To Contact Diagnoses Systemic Mastocytosis, Polycythemia Procedures PRO DIAGNOSTIC BONE MARROW BIOPSIES & ASPIRATIONS ([facility] MSURG) BONE MARROW BIOPSY AND ASPIRATION; DIAGNOSTIC (WRVU 1.44) Omid Degroot MD [facility] [place] [address] [facility] [place] Referral ID Status Reason Start Date Expiration Date Visits Re quested Visits Authorized [id number] 1 1 Encounter Details Date Type Department Care Team (Late st Contact Info) Description 12/15/2023 10:30 AM EDT - 12/15/2023 11:30 AM EDT Surgery [place] [address] Omid Degroot MD [facility] [place] [address] ([facility] MSURG) BONE MARROW BIOPSY AND ASPIRATION; DIAGNOSTIC (WRVU 1.44) Social History Tobacco Use Types Packs/Day Years Used Date Smoking Tobacco: Former Cigarettes 1 30 Q uit: 2012 Smokeless Tobacco: Never Comments:3/4TH PK A DAY Alcohol Use Standard Drinks/Week Comments No 0 (1 standard drink = 0.6 oz pur e alcohol) DH IPV Inpatient Questions Answer Date Recorded [...] Sign Reading Time Taken Comments Blood Pressure 131/66 12/15/2023 9:55 AM EDT Pulse 73 12/15/2023 9:55 AM EDT Temperature 36.3 ??C (97.3 ??F) 12/15/2023 9:55 AM ED T Respiratory Rate 16 12/15/2023 9:55 AM EDT Oxygen Saturation 95% 12/15/2023 9:55 AM EDT Inhaled Oxygen Concentration - - Weight 54.4 kg (120 lb) 12/15/2023 9:53 AM EDT Height 162.6 cm (5' 4) 12/15/2023 9:53 AM EDT Body Mass Index 20.6 12/15/2023 9:53 AM EDT documented in this encounter Discharge Instructions * Discharge Instructions* Lucero Yang RN - 12/15/2023 9:42 AM EDT OUTPATIENT SURGERY POST-OPERATIVE INSTRUCTIONS BONE MARROW BIOPSY SITE You have had a bone marrow aspiration and or/biopsy, which is like having an operation with a tiny,deep incision. Do Not do any strenuous work today, like housework, yard work, sports of any kind or lifting more than 5 pounds as it may cause your bone marrow site to bleed. To avoid infection, leave the clear plastic dressing on the site for three days. You may shower, bathe, or swim as you wish, provided the clear dressing remains intact, and all sides of the dressing are firmly adhered to the skin. In the unlikely event that a portion or the entire dressing should come off, you may replace it with a conventional cloth band aid. However, you will no longer be able to get the site wet until three days have passed, as a conventional band aid is not waterproof and the site is no longer a sterile area. It is not unusual for the site to leak a scant amount of blood, so do not be alarmed to see a smallcollection, or ???puddle?? of blood under the dressing. Wound healing will still occur. If you are uncertain if there is an increase in any leaking from your bone marrow site, roll up a towel, lie down on a firm surface, place the towel directly over the puncture site to apply pressure,and rest there for one half hour. Direct, FIRM thumb pressure applied to the site for 10 minutes works well as an alternative method. Leave the dressing on. Most people do not experience much discomfort after this procedure, but if you do, you should ask your physician what to take. AVOID ASPIRIN PRODUCTS as these interfere with clotting. After three days, remove your dressing and leave it off, so the air can get to the site to finish the healing process. NOTIFY YOUR DOCTOR FOR: Redness Heat Fever Swelling Drainage Increased pain Foul odor (which may not be apparent through the dressing) If you are having problems or have any additional concerns or questions: Between 8am and 5pm - Call the Hematology Clinic at . After 5pm or on a weekend: Call the [facility] coloring machine operator at and ask for the physician manager fashion covering for your doctor. Instructions following sedation You may have received medication before and/or during your procedure, which affects judgement and reaction time. Use caution with stairs. Do not drive, operate machinery, drink alcoholic beverages, or make any legal decisions for 24 hours. You may eat a regular diet as tolerated. Do not smoke if you are alone. IV site -- slight redness, or tenderness is normal, you can use a warm compress. If tenderness and redness increases or foul drainage occurs, please [place] [address] [email or web address] [facility] [employer] [facility] documented in this encounter Medications at Time of Discharge Medication Sig Dispensed Refills Start Date End Date EPINEPHrine 0.3 mg/0.3 mL Auto-Injector Inject 0.3 mL IM once as needed for allergic reaction (Throat tight, difficulty breathing). Call 911 as directed. 1 kit 11 12/18/2023 documented as of this encounter Progress Notes * Lucero Yang RN - 12/15/2023 11:35 AM EDT Discharge instructions reviewed with patient and escort prior to procedure. They verbalized understanding. Date/Procedure: Meds Given Comments BMBX R Iliac Crest Local Only Patient tolerated the procedure well No drainage or active bleeding noted at site at 30min post-op check. Copy of instructions given to patient. Encouraged to call with questions or concerns. Patient ambulated to car for discharge accompanied by [facility] staff member. documented in this encounter H&P Notes * Sheree Young APRN - 12/15/2023 10:42 AM EDT Ashley Kee is here today for a bone marrow biopsy and aspirate. Because of her diagnosis - systemic mastocytosis - we did discuss with Ashley using local anesthesia only to avoid any potential reactions. Ashley is in agreement with this. No changes in H & P since last exam dated 11/25/23 . Local anesthesia only. We will proceed with planned procedure. documented in this encounter Procedure Notes * Sheree Young APRN - 12/15/2023 10:57 AM EDT BONE MARROW BIOPSY AND ASPIRATION PROCEDURE NOTE Unilateral Bone Marrow Biopsy & Aspiration with local anesthesia only Date/Time of Procedure: 12/15/2023 Proceduralist: Sheree Young RN, MS, GENERAL PRACTITIONER DIAGNOSIS: MGUS Pre-Procedure: (x) Consent signed and on chart. (x) CBC drawn within 3 days. (x) Medications/Allergies/Problem List reviewed. (x) H & P complete Prior to start of procedure the following is verified in a TIME OUT: (x) Patient identity (x) Planned procedure (x) Safety concerns PAIN INTERVENTION: Tolerated well Sterile Condition: Chlorohexidine/betadine was used to sterilize the area. Sterile drapes were usedto create a sterile field. Local Anesthesia: 1% Lidocaine 10 cc's. PROCEDURE: A bone marrow biopsy and aspiration was performed on the right posterior iliac crest. Pressure applied to site(s) for at least 20 minutes following the procedure and Tegaderm placed. Estimated Blood Loss: minimal Complications: none POST INTERVENTION CARE & PAIN ASSESSMENT: Per [facility] nurses. Follow-up: Written/Verbal instructions for site care given to patient per [facility] nurses. Follow-up with Physician as instructed. documented in this encounter Plan of Treatment Upcoming Encounters Date Type Department Care Team (Late st Contact Info) Description 03/02/2024 8:30 AM EST Office Visit Vascular Surgery at [place] [phone] Sarah Bah APRN [facility] [place] [address] 03/04/2024 7:00 AM EST Appointment Mammography/DXA at [place] [phone] Edmund Truong MD [facility] DR HEMATOLOGY [place] [address] 03/07/2024 10:45 AM EST Laboratory Appointment Lab at [facility] Hematology Oncology [address] [place], [place] [phone] 03/07/2024 11:30 AM EST Office Visit Hematology and Oncology at [place] [phone] Bennett Turner RN 03/07/2024 11:30 AM EST Office Visit Hematology and Oncology at [place] [phone] Edmund Truong MD [facility] DR HEMATOLOGY [place] [address] 03/10/2024 8:15 AM EST Laboratory Appointment Lab at [facility] Hematology Oncology [address] [place] [phone] 03/10/2024 8:30 AM EST Scheduled View Only H[place]ology [place] [phone] 03/10/2024 9:00 AM EST Office Visit Hematology and Oncology at [place] [phone] Omid Degroot MD [facility] [place] [address] 03/10/2024 9:00 AM EST Office Visit Hematology [place] [phone] Bennett Turner RN 03/25/2024 9:30 AM EST Tech [place] [phone] Carlton [place]gins, RVT 03/25/2024 10:15 AM EST Office [place] [phone] Tomy Raymond MD [facility] [place] [address] documented as of this encounter Procedures Procedure Name Priority Date/Time Associated Diagnosis Comments BM HOLD CG/FISH Routine 12/15/2023 10:56 AM EDT BM HOLD FLOW/MOLECULAR Routine 10:56 AM EDT BONE MARROW ANALYSIS Routine 12/15/2023 10:56 AM EDT CHROMOSOME ANALYSIS, ACQUIRED ([facility]) Routine 12/15/2023 10:56 AM EDT DH HEMESEQ (BONE MARROW) Routine 09/10/2 024 10:56 AM EDT IMMUNOPHENOTYPING FLOW CYTOMETRY Routine 12/15/2023 10:56 AM EDT BONE MARROW Routine 12/15/2023 10:56 AM EDT [facility] TEST-[facility] Routine 12/15/2023 1 0:56 AM EDT Diagnostic Bone Marrow Biopsies & Aspirations (14976) Yes 12/15/2023 10:46 AM EDT Systemic Mastocytosis, Polycythemia CBC (WITH DIFF) Routine 12/15/2023 10:04 AM EDT ([facility]) BONE MARROW BIOPSY AND ASPIRATION; DIAGNOSTIC Routine 12/15/2023 9:41 AM EDT documented in this encounter Results * [facility] (12/15/2023 10:56 AM EDT) [facility] Result (May) SEE COMMENTS 01/05/2024 12:23 PM EDT REF LAB [facility] Comment: Test ? Result ? Flag ??Unit ??RefValue KIT [id number] Mutation Analysis, V ??Specimen Type ?Extracted DNA from blood ??Interpretation ? 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 ?The p.Noi283Foe (D816V) mutation in the KIT gene is ?identified in > 80% of systemic mastocytosis and less ?commonly in cutaneous mastocytosis. It represents a minor ?diagnostic criterion for systemic mastocytosis in the World ?Health Organization (WHO) classification system. ?Presence of the KIT D816V mutation confers resistance to ?some tyrosine kinase inhibitors such as imatinib, nilotinib ?and masitinib but has shown response to midostaurin (PMID: ?11973977; 03381701; 42509668). Midostaurin has been ?approved by the Food and Drug Administration (FDA) in adult ?patients with advanced systemic mastocytosis irrespective ?of D816V mutational status ?(https://www.fda.gov/drugs/amijiwzxf-fhwkqamhmxf-agqysqod-dr ?ugs/midostaurin). ? ADDITIONAL INFORMATION ?Method summary - A qualitative, allele-specific polymerase ?chain reaction a(PCR) was performed on DNA. This was used ?to evaluate for the point mutation causing KIT Pwa388Phz ?(D816V). The analytic sensitivity of this assay is 0.1%. ?This test was developed and its performance characteristics ?determined by [facility] in a manner consistent with CLIA ?requirements. This test has not been cleared or approved by ?the U.S. Food and Drug Administration. ??Signing Pathologist ?Oj Chambers D.O., M.S. ?Test Performed by: ?[facility] ?[address] [place] [address] ?Electrical Power Station Technician: Felipe Arroyo Ph.D.; CLIA# [id number] DNA VENOUS BLOOD SPECIMEN / Unknown Non Blood Collection / Unknown 12/15/2023 10:56 AM EDT 12/31/2023 10:15 AM EDT Lb Broderick DO LAB SEND OUT ORDERA BLES REF LAB [facility] [address] [address], [facility] * DH HemeSeq (Bone Marrow) (12/15/2023 10:56 AM EDT) NGS Report Status Normal 12/27/2023 8:[address] [facility] Bone Marrow Non Blood Collection / Unknown 12/15/2023 10:56 AM EDT 12/15/2023 12:15 PM EDT Lb Broderick DO MOLECULAR ORDERABLE S Performing Organization Address City/[facility]/ZIP Co de Phone Number [facility] [place] [address] * Immunophenotyping Flow Cytometry (12/15/2023 10:56 AM EDT) Final Diagnosis Minor population, compatible with abnormal mast cells (see Comment). 12/17/2023 12:54 PM EDT [facility] Signing Pathologist This result has been reviewed by Lb Guzman DO on 12/17/23 at 12:54 PM. 12/17/2023 12:54 PM EDT [facility] Discussion Correlation with morphologic findings of the bone marrow biopsy is suggested. 12/17/2023 12:54 PM EDT [facility] Interpretation [id number] gating detected a minor population compatible with mast cells that expresses CD2 and CD25, compatible with abnormal mast cells. B-cells are polytypic and T-cells do not show an aberrant population. No increase in blasts detected. 12/17/2023 12:54 PM EDT [facility] Lymphocyte % 13.3 % 12/17/2023 12:54 PM [facility] Monocyte % 3.8 % 12/17/2023 12:54 PM [facility] Granulocyte % 77.8 % 12/17/2023 12:54 PM [facility] CD45 DIM % 1.0 % 12/17/2023 12:54 PM [facility] CD38 Bright/CD138+ 0.1 % 12/17/2023 12:54 PM [facility] CD3+ % 82.0 % 12/17/2023 12:54 PM [facility] CD19+ % 13.0 % 12/17/2023 12:54 PM [facility] CD56+ % 5.0 % 12/17/2023 12:54 PM [facility] B-Cell:T-Cell Ratio 0.2 12/17/2023 12:54 PM [facility] Truchas:Lambda Ratio 0.9 12/17/2023 12:54 PM [facility] CD4:CD8 Ratio 1.7 12/17/2023 12:54 PM [facility] Specimen Processing Cells for immunophenotypic analysis were derived from bone marrow. The following markers were assessed: CD2, CD3, CD4, CD5, CD7, CD8, CD10, CD13, CD14, CD19, CD25, CD34, CD45, CD56, CD117, HLA-DR, kappa light chain and lambda light chain. 12/17/2023 12:54 PM [facility] Disclaimer Flow analysis is an ancillary study. A definite diagnosis requires correlation with the morphologic features of this process and if necessary, correlation with other ancillary studies like immunohistochemist ry, enzyme cytochemistry and/or cyto/molecular genetics. This test was developed and its performance characteristics determined by the Clinical Flow Cytometry Laboratory at [facility]. It has not been cleared or [...] clinical laboratory testing. 12/17/2023 12:54 PM EDT [facility] Clinical Information Suspicion for mastocytosis. 12/17/2023 12:54 PM EDT [facility] Bone Marrow Non Blood Collection / Unknown 12/15/2023 10:56 AM EDT 12/15/2023 12:15 PM EDT Lb Broderick DO HEMATOLOGY ORDERABL ES [facility] [place] [address] * Chromosome Analysis, Acquired ([facility]) (12/15/2023 10:56 AM EDT) Chromosome, Leukemia/Lymph benny ([facility]) See Scanned Result 12/28/2023 11:04 AM EDT REF [facility] Specimen Condition ([facility]) 12/28/2023 11:04 AM EDT REF LAB [facility] Bone Marrow Non Blood Collection / Unknown 12/15/2023 10:56 AM EDT 12/15/2023 12:15 PM EDT Lb Broderick DO LAB SEND OUT ORDERA BLES REF LAB [facility] [address] [place] [address] * BM HOLD CYTOGENETICS/FISH (12/15/2023 10:56 AM EDT) Bone Marrow Non Blood Collection / Unknown 12/15/2023 10:56 AM EDT 12/15/2023 12:15 PM EDT Omid Degroot MD PATHOLOGY/CYTOLOGY ORDERABLES [facility] [place] [address] * BM HOLD FLOW/MOLECULAR (12/15/2023 10:56 AM EDT) Bone Marrow Non Blood Collection / Unknown 12/15/2023 10:56 AM EDT 12/15/2023 12:15 PM EDT Omid Degroot MD PATHOLOGY/CYTOLOGY ORDERABLES [facility] [place] [address] * (ABNORMAL) Bone Marrow (12/15/2023 10:56 AM EDT) Case Report Bone Marrow Patholog y Report ?Case: [id number] ? Authorizing Provider: ??Omid Degroot MD ? Collected: ? 12/15/2023 1056 ? Ordering Location: ? [facility] ??Received: ?12/15/2023 1215 ? [facility] ? Hospital ? Pathologist: ? Cleveland Whitney MD ? Specimens: ?? A) - Iliac Crest, Right ? B) - Iliac Crest, Right ? C) - Iliac Crest, Right ? 4 2:41 PM EDT [facility] Integrated Results Ancillary send out qualitative [...] compatible with an indolent systemic mastocytosis (ISM). 4 2:41 PM EDT [facility] Addendum electronically signed by Lb Guzman DO on 01/18/2024 at 2:41 PM Final Diagnosis 1. Hypercellular marrow with trilineage hematopoiesis, no increase in blasts and abnormal mast cell aggregates. (See discussion) 2. Ancillary studies pending. 4 2:41 PM [facility] Discussion The patient's histor y [...] slides, and confirm the diagnosis. 2:41 PM [facility] Additional Studies Task ID IHC/Special [...] cell and lymphoid aggregates 4 2:41 PM [facility] Clinical Information Hx abnormal bone imaging findings with bone biopsy (not bone marrow) showing evidence of systemic mastocytosis. BmBx to eval for hematological neoplasm, marrow involvement 4 2:41 PM [facility] Gross Description A. Iliac Crest, Right. Number of Lavender (EDTA) tubes: 3 Total Volume of Lavender (EDTA) tubes: 7.9 Number of Green (NaHep) tubes: 1 Total Volume of EDTA tubes: 3.5 Spicule/Clot Section submitted? Present Tube to Biorepository? Present Processed by: July Giancarlo Collected off the [facility] by: n/a B. Iliac Crest, Right. [...] aggregating 0.3 x 0.1 cm. Tissue Description: [place] soft tissue fragments. Sections/Processing: Entirely submitted in 1 cassette labeled C1. pps 4 2:41 PM [facility] Disclaimer(s) Formalin-fixed, paraffin-embedded tissue sections [...] morphology, histopathological criteria and other diagnostic tests. 4 2:41 PM [facility] Bone Marrow Aspirate Adequacy: Smear/touch preparations adequate, cellular. G:E ratio: 1.8:1 Erythroid: Complete normoblastic maturation, no left-shift. Granulocyte: Complete normal maturation, no left-shift. Blasts: Not increased. Megakaryocyte: Normal in number and morphology. Lymphocyte: Scattered mature forms seen, no aggregates appreciated. Plasma cells: Not increased, normal morphology. Other: Increased number of atypical spindled and degranulated mast cells, normal eosinophils, basophils. 4 2:41 PM [facility] Bone Marrow Biopsy and/or Clot [...] normal morphology. Platelets show normal platelet morphology. 4 2:41 PM EDT [facility] Bone Marrow Differential Band/Seg 35% Lymph 11% [place] 1% Eos 2% Baso 0% Metamyelocyte 2% Myelocyte 3% Promyelocyte 1% Blast 0% nRBC's 25% Plasma cell Mast cells 0% 20% 4 2:41 PM EDT [facility] Result Note THIS RESULT REQUIRES PHYSICIAN/AYANA FOLLOW UP(A) 4 2:41 PM EDT [facility] ILIAC CREST STRUCTURE / Unknown 12/15/2023 10:56 AM EDT 12/15/2023 12:15 PM EDT ILIAC CREST STRUCTURE / Unknown 12/15/2023 10:56 AM EDT 12/15/2023 12:15 PM EDT ILIAC CREST STRUCTURE / Unknown 12/15/2023 10:56 AM EDT 12/15/2023 12:15 PM EDT Omid Degroot MD PATHOLOGY/CYTOLOGY ORDERABLES Performing Organization Address City/State/[facility] Co de Phone Number [facility] [place] [address] * (ABNORMAL) CBC (with Diff) (12/15/2023 10:04 AM EDT) White Blood Cell 9.31 4.00 - 9.50 x10(3)/mc L 12/15/2023 11:55 AM EDT [facility] Red Blood Cell 4.93 4.00 - 5.21 x10(6)/mc L 12/15/2023 11:55 AM EDT [facility] Hemoglobin 15.2 11.7 - 15.5 g/dL 12/15/2023 11:55 AM [facility] Hematocrit 44.6 35.7 - 45.8 % 12/15/2023 11:55 AM [facility] Mean Cell Volume 90.5 82.6 - 94.4 fL 12/15/2023 11:55 AM [facility] Mean Cell Hemoglobin 30.8 27.1 - 32.0 pg 12/15/2023 11:55 AM [facility] Mean Cell Hemoglobin Concentration 34.1 31.7 - 35.0 g/dL 12/15/2023 11:55 AM [facility] Platelet 279 145 - 357 x10(3)/mc L 12/15/2023 11:55 AM [facility] Mean Platelet Volume 8.5 7.6 - 12.9 fL 12/15/2023 11:55 AM [facility] RDW Standard Deviation 44.2 37.0 - 46.0 fL 12/15/2023 11:55 AM [facility] RDW coefficient of variation 13.3 11.5 - 14.1 % 12/15/2023 11:55 AM [facility] NRBC% auto 0.0 % 12/15/2023 11:55 AM [facility] NRBC Absolute 0.00 0.00 - 0.00 x10(3)/mc L 12/15/2023 11:55 AM [facility] Neutrophil % 58.0 % 12/15/2023 11:55 AM [facility] Neutrophil Absolute (ANC) - Automated 5.39 1.70 - 6.10 x10(3)/mc L 12/15/2023 11:55 AM [facility] Lymph % 34.7 % 12/15/2023 11:55 AM [facility] Lymph Absolute 3.23(H) 0.90 - 3.20 x10(3)/mc L 12/15/2023 11:55 AM [facility] Monocyte % 6.2 % 12/15/2023 11:55 AM EDT [facility] Monocyte Absolute 0.58 0.30 - 0.90 x10(3)/mc L 12/15/2023 11:55 AM EDT [facility] Eos % 0.6 % 12/15/2023 11:55 AM EDT [facility] Eos Absolute 0.06 0.00 - 0.40 x10(3)/mc L 12/15/2023 11:55 AM EDT [facility] Basophil % 0.3 % 12/15/2023 11:55 AM EDT [facility] Baso Absolute 0.03 0.00 - 0.10 x10(3)/mc L 12/15/2023 11:55 AM EDT [facility] Immature Gran % 0.2 % 11:55 AM EDT [facility] Immature Gran Absolute 0.02 0.00 - 0.04 x10(3)/mc L 12/15/2023 11:55 AM EDT [facility] Blood VENOUS BLOOD SPECIMEN / Unknown IP Care Team Draw / Unknown 12/15/2023 10:04 AM EDT 12/15/2023 10:55 AM EDT Omid Degroot MD HEMATOLOGY ORDERABL ES [facility] [place] [address] documented in this encounter Visit Diagnoses Not on filedocumented in this encounter Administered Medications Inactive Administered Medications - up to 3 most recent administrations Medication Order MAR Action Action Date Dose Rate Site bone marrow biopsy kit as directed, ONCE PRN, Procedure, bone marrow biopsy, Starting on Thu12/15/23 at 0941, 1 dose, Until Thu12/15/23 at 1338, Day of Surgery (Day of Procedure) lidocaine (pf) (Xylocaine) (10 mg/mL) 1% injection 30 mg 30 mg, Subcutaneous, ONCE PRN, 1 dose, Starting on Thu12/15/23 at 0941, Until Thu12/15/23 at 1338, bone marrow biopsy, To be given DURING the procedure, Day of Surgery (Day of Procedure), Routine lidocaine (Xylocaine) 1% (10 mg/mL) injection 3 mg 3 mg (0.3 mL), Subcutaneous, ONCE PRN, 1 dose, Starting on Thu12/15/23 at 0941, Until Thu12/15/23 at 1338, for discomfort with PIV insertion, Day of Surgery (Day of Procedure), Routine sodium chloride 0.9 % (flush) (BD PosiFlush Normal Saline 0.9) flush 5 mL 5 mL, Intravenous, EVERY 12 HOURS, First dose on Thu12/15/23 at 1000, Until Discontinued, Day of Surgery (Day of Procedure), Routine sodium chloride 0.9 % (flush) (BD PosiFlush Normal Saline 0.9) flush 5-20 mL 5-20 mL, Intravenous, EVERY 1 MIN PRN, Starting on Thu12/15/23 at 0941, Until Thu12/15/23 at 1338, flush, Flush pertains to all indwelling lines. Flush per protocol found in the job aid using the link provided on this medication record., Day of Surgery (Day of Procedure), Routine sodium chloride 0.9% infusion 1,000 mL, at 100 mL/hr, Intravenous, CONTINUOUS, Starting on Thu12/15/23 at 1000, Until Thu12/15/23 at 1338, Day of Surgery (Day of Procedure) New Bag 12/15/2023 10:05 AM EDT 1,000 mLs 100 mL/hr documented in this encounter Active and Recently Administered Medications Times are shown in EDT. Scheduled Medication Order 12/13/2023 12/14/2023 12/15/2023 sodium chloride 0.9 % (flush) (BD PosiFlush Normal Saline 0.9) flush 5 mL 5 mL, Intravenous, EVERY 12 HOURS, First dose on Thu12/15/23 at 1000, Until Discontinued, Day of Surgery (Day of Procedure), Routine 1000 (Due) Continuous Medication Order 12/13/2023 12/14/2023 12/15/2023 sodium chloride 0.9% infusion 1,000 mL, at 100 mL/hr, Intravenous, CONTINUOUS, Starting on Thu12/15/23 at 1000, Until Thu12/15/23 at 1338, Day of Surgery (Day of Procedure) 1005 ([facility] ider: Lucero Yang RN) PRN Medication Order 12/13/2023 12/14/2023 12/15/2023 bone marrow biopsy kit as directed, ONCE PRN, Procedure, bone marrow biopsy, Starting on Thu12/15/23 at 0941, 1 dose, Until Thu12/15/23 at 1338, Day of Surgery (Day of Procedure) lidocaine (pf) (Xylocaine) (10 mg/mL) 1% injection 30 mg 30 mg, Subcutaneous, ONCE PRN, 1 dose, Starting on Thu12/15/23 at 0941, Until Thu12/15/23 at 1338, bone marrow biopsy, To be given DURING the procedure, Day of Surgery (Day of Procedure), Routine lidocaine (Xylocaine) 1% (10 mg/mL) injection 3 mg 3 mg (0.3 mL), Subcutaneous, ONCE PRN, 1 dose, Starting on Thu12/15/23 at 0941, Until Thu12/15/23 at 1338, for discomfort with PIV insertion, Day of Surgery (Day of Procedure), Routine sodium chloride 0.9 % (flush) (BD PosiFlush Normal Saline 0.9) flush 5-20 mL 5-20 mL, Intravenous, EVERY 1 MIN PRN, Starting on Thu12/15/23 at 0941, Until Thu12/15/23 at 1338, flush, Flush pertains to all indwelling lines. Flush per protocol found in the job aid using the link provided on this medication record., Day of Surgery (Day of Procedure), Routine documented in this encounter Care Teams Aging Room Operator Relationship Specialty Start Date End Date Estrella Mckay, SUEDE CLEANER [facility] [place] [address] PCP - General Family Medicine 12/14/23 documented as of this encounter
--- OUTSIDE RECORDS SUMMARY | 2024-02-29 15:53 | XMS_ITS | Encounter Summary ---
[place] [address] Care Team Providers Care Home Care Physical Therapist Name Role Phone Estrella Mckay APRN Primary Care Provider [phone] Reason for Referral * Consultation (Routine) - Closed Specialty Diagnoses / Procedures Referred By Contac t Referred To Contact Diagnoses Systemic mastocytosis Omid Degroot MD [facility] [place] [address] [facility] [place] [address] Referral ID Status Reason Start Date Expiration Date V isits Requested Visits Authorized [id number] Closed Continuity of Care 01/21/2024 01/20/2025 1 1 Encounter Details Date Type Department Care Team (Late st Contact Info) Description 01/21/2024 Orders Only Hematology [place] [address] Omid Degroot MD [facility] [place] [place] [address] Systemic mastocytosis Social History Tobacco Use Types [...] AM EST Office [place] [address] Sarah Bah APRN [facility] [place] [address] 03/04/2024 7:00 AM EST Appointment Mammography/[place] [address] Edmund Truong MD [facility] [place] [address] 03/07/2024 10:45 AM EST Laboratory Appointment Lab at [facility] Hematology Oncology [address] [place] [phone] 03/07/2024 11:30 AM EST Office Visit Hematology [place] [address] Bennett Turner RN 03/07/2024 11:30 AM EST Office Visit Hematology [place] [address] Edmund Turong MD [facility] DR [place] [address] 03/10/2024 8:15 AM EST Laboratory Appointment Lab at [facility] Hematology Oncology [address] [place] [phone] 03/10/2024 8:30 AM EST Scheduled View Only Hematology and Oncology at [place] [phone] 03/10/2024 9:00 AM EST Office Visit Hematology and Oncology at [place] [phone] Omid Degroot MD [facility] [place] [address] 03/10/2024 9:00 AM EST Office Visit Hematology and Oncology at [place] [phone] Bennett Turner, RN 03/25/2024 9:30 AM EST Tech Visit Vascular Lab at [place] [phone] Carlton Higgins, RVT 03/25/2024 10:15 AM EST Office Visit Vascular Surgery at [place] [phone] Tomy Raymond MD [facility] [place] [address] Scheduled Referrals Name Type Priority Associated Diagnoses Orde r Schedule Referral to Nutrition Services Outpatient Referral Routine Systemic mastocytosis Ordered: 01/21/2024 documented as of this encounter Visit Diagnoses Diagnosis Systemic mastocytosis Malignant mast cell tumors, unspecified site, extranodal and solid organ sites documented in this encounter Care Teams Home Care Physical Therapist Relationship Specialty Start Date End Date Estrella Mckay, CHARGE ACCOUNTS AUDIT CLERK [facility], [place] [address] PCP - General Family Medicine 12/14/23 documented as of this encounter
--- OUTSIDE RECORDS SUMMARY | 2024-02-29 15:53 | XMS_ITS | Encounter Summary ---
[place] [address] Care Team Providers Care Ophthalmology Surgical Technician Name Role Phone Estrella Mckay APRN Primary Care Provider [phone] Encounter Details Date Type Department Care Team (Late st Contact Info) Description 01/20/2024 Notes Only Hematology [place] [phone] Bennett Turner RN Social History Tobacco Use Types Packs/Day Years Used Date Smoking Tobacco: Former Cigarettes 1 30 Q uit: 2013 Smokeless Tobacco: Never Comments:3/4TH PK A DAY Alcohol Use Standard Drinks/Week Comments No 0 (1 standard drink = 0.6 oz pur e alcohol) ON LICENSE OF [facility] Inpatient Questions Answer Date Recorded [...] Progress Notes * Bennett Turner RN - 01/20/2024 9:14 AM EDT Received a message from the scheduling secretary office clerk that Ashley Kee is experiencing 'some kind of stomach bug/issue, can't come in today. Called Ashley Kee and received a voice message. Left message asking Ashley Kee to call me back to reschedule her consenting visit. Will await callback to assess GI symptoms more thoroughly and make plan for consenting. Addendum: Received callback from Ashley Kee who states she has been glued to the toilet since 299. She reports diarrhea x 5 since 299, explosive, large volume, watery stool, no blood visible, along with vomiting x 3, starting at 0300, starting as undigested food and latest just bile. She believes this is related to the food she ate last night, hot dogs and beans. She did not take any Miralax or other bowel meds last evening. She fells like the nausea and vomiting and diarrhea is resolving, and believes she can now start taking fluids. Encouraged to start with clear liquids, such as gingerale, in small amounts, 1-2 oz, and increase every 30 minutes as tolerated. She voiced back understanding and will let me know if the nausea, vomiting and diarrhea continues. She has not taken any of her Pepcid this am. Told to hold that this am and resume this pm along withher other drug. She verbalized understanding. Rescheduled visit for consenting to protocol [id number] for 01/24 @ 0830. documented in this encounter Plan of Treatment Upcoming Encounters Date Type Department Care Team (Late st Contact Info) Description 03/02/2024 8:30 AM EST Office Visit [place] [phone] Sarah Bah APRN [facility] DR [place] [address] 03/04/2024 7:00 AM EST Appointment Mammography/[place] [phone] Edmund Truong MD [facility] HEMATOLOGY [place] [address] 03/07/2024 10:45 AM EST Laboratory Appointment Lab at [facility] Hematology Oncology [address] [place] [phone] 03/07/2024 11:30 AM EST Office Visit Hematology and Oncology at [place] [phone] Bennett Turner, RN 03/07/2024 11:30 AM EST Office Visit Hematology and Oncology at [place] [phone] Edmund Truong MD [facility] DR [place] [address] 03/10/2024 8:15 AM EST Laboratory Appointment Lab at [facility] Hematology Oncology [address] [place], [place] [phone] 03/10/2024 8:30 AM EST Scheduled View Only Hematology and Oncology at [address] 03/10/2024 9:00 AM EST Office Visit Hematology and Oncology at [place] [address] Omid Degroot MD [facility] [place] [address] 03/10/2024 9:00 AM EST Office Visit Hematology and Oncology at [place] [phone] Bennett Turner, RN 03/25/2024 9:30 AM EST Tech Visit Vascular Lab at [place] [phone] Carlton Higgins, RVT 03/25/2024 10:15 AM EST Office Visit Vascular Surgery at [place] [phone] Tomy Raymond MD [facility] [place] [address] documented as of this encounter Visit Diagnoses Not on filedocumented in this encounter Care Teams Ophthalmology Surgical Technician Relationship Specialty Start Date End Date Estrella Mckay, RENTAL SALES REPRESENTATIVE Juan [place] [address] PCP - General Family Medicine 12/14/23 documented as of this encounter
--- OUTSIDE RECORDS SUMMARY | 2024-02-29 15:53 | XMS_ITS | Encounter Summary ---
Author Organization [facility] [place] [address] Care Team Providers Care Tea Bag Machine Tender Name Role Phone Estrella Mckay APRN Primary Care Provider [phone] Encounter Details Date Type Department Care Team (Latest Contact Info) Description 01/25/2024 Travel Social History Tobacco Use Types Packs/Day [...] AM EST Office [place] [phone] Sarah Bah APRN [facility] [place] [address] 03/04/2024 7:00 AM EST Appointment Mammography/[place] [address] Edmund Truong MD [facility] DR [place] [address] 03/07/2024 10:45 AM EST Laboratory Appointment Lab at [facility] Hematology Oncology [address] [place] [address] 03/07/2024 11:30 AM EST Office Visit Hematology and Oncology at [place] [address] Bennett Turner, RN 03/07/2024 11:30 AM EST Office Visit Hematology and Oncology at [place] [address] Edmund Truong MD [facility] DR [place] [address] 03/10/2024 8:15 AM EST Laboratory Appointment Lab at [facility] Hematology Oncology [address] [place], [place] [phone] 03/10/2024 8:30 AM EST Scheduled View Only Hematology and Oncology at [place] [address] 03/10/2024 9:00 AM EST Office Visit Hematology and Oncology at [place] [address] Omid Degroot MD [facility] [place] [address] 03/10/2024 9:00 AM EST Office Visit Hematology and Oncology at [place] [address] Bennett Turner, RN 03/25/2024 9:30 AM EST Tech Visit Vascular Lab at [place] [address] Carlton Higgins, RVT 03/25/2024 10:15 AM EST Office [place] [address] Tomy Raymond MD [facility] [place] [address] documented as of this encounter Visit Diagnoses Not on filedocumented in this encounter Care Teams Tea Bag Machine Tender Relationship Specialty Start Date End Date Estrella Mckay, CASH POSTING REPRESENTATIVE [facility] [place] [address] PCP - General Family Medicine 12/14/23 documented as of this encounter
--- OUTSIDE RECORDS SUMMARY | 2024-02-29 15:53 | XMS_ITS | Encounter Summary ---
Author Organization [facility] [place] [address] Care Team Providers Care Bleach Liquor Maker Name Role Phone Estrella Mckay APRN Primary Care Provider [phone] Encounter Details Date Type Department Care Team (Late st Contact Info) Description 01/25/2024 8:30 AM EDT Office Visit Hematology [place] [address] PATIENT NOT SEEN Social History Tobacco Use Types Packs/Day Years [...] AM EST Office Visit [place] [phone] Sarah Bah APRN [facility] DR VASCULAR SURGERY [place], [place] [phone] 03/04/2024 7:00 AM EST Appointment Mammography/DXA at [place] [address] Edmund Truong MD [facility] [place] [address] 03/07/2024 10:45 AM EST Laboratory Appointment Lab at [facility] Hematology Oncology [address] [place] [address] 03/07/2024 11:30 AM EST Office Visit Hematology and Oncology at [place] [address] Bennett Turner RN 03/07/2024 11:30 AM EST Office Visit Hematology and Oncology at [place] [address] Edmund Truong MD [facility] [place] [address] 03/10/2024 8:15 AM EST Laboratory Appointment Lab at [facility] Hematology [place] [address] 03/10/2024 8:30 AM EST Scheduled View Only Hematology and Oncology at [place] [address] 03/10/2024 9:00 AM EST Office Visit Hematology and Oncology at [place] [address] Omid Degroot MD [facility] [place] [address] 03/10/2024 9:00 AM EST Office Visit Hematology and Oncology at [place] [phone] Bennett Turner RN 03/25/2024 9:30 AM EST Tech Visit [facility] [place] [address] Carlton Higgins, RVT 03/25/2024 10:15 AM EST Office Visit [place] [phone] Tomy Raymond MD [facility] DR VASCULAR SURGERY [place] [phone] documented as of this encounter Visit Diagnoses Diagnosis DH PATIENT NOT SEEN documented in this encounter Care Teams Bleach Liquor Maker Relationship Specialty Start Date End Date Estrella Mckay, VACUUM KETTLE COOK [facility] [facility] [place] [address] PCP - General Family Medicine 12/14/23 documented as of this encounter
--- OUTSIDE RECORDS SUMMARY | 2024-02-29 15:53 | XMS_ITS | Encounter Summary ---
Author Organization [facility] Address [facility] [place] [address] Care Team Providers Care Bail Bondsman Name Role Phone Estrella Mckay APRN Primary Care Provider [phone] Reason for Visit * Reason Comments Follow-up Encounter Details Date Type Department Care Team (Late st Contact Info) Description 01/07/2024 4:00 PM EDT Office Visit Hematology [place] [address] [facility] [place] [address] Systemic mastocytosis Social History Tobacco Use Types Packs/Day Years Used Date Smoking Tobacco: Former Cigarettes 1 30 Q uit: 2012 Smokeless Tobacco: Never Comments:3/4TH PK A DAY Alcohol Use Standard Drinks/Week Comments No 0 (1 standard drink = 0.6 oz pur e alcohol) [facility] Inpatient Questions Answer Date Recorded [...] Sign Reading Time Taken Comments Blood Pressure 107/54 01/07/2024 3:42 PM EDT Pulse 97 01/07/2024 3:42 PM EDT Temperature 36.7 ??C (98.1 ??F) 01/07/2024 3:42 PM ED T Respiratory Rate 17 01/07/2024 3:42 PM EDT Oxygen Saturation 96% 01/07/2024 3:42 PM EDT Inhaled Oxygen Concentration - - Weight 56.4 kg (124 lb 5.4 oz) 01/07/2024 3:42 P M EDT Height 162 cm (5' 3.78) 01/07/2024 3:42 PM EDT Body Mass Index 21.49 01/07/2024 3:42 PM EDT documented in this encounter Progress Notes * Omid Degroot MD - 01/07/2024 4:00 PM EDT Images from the original note were not included. HEMATOLOGY CONSULTATION VISIT NOTE DATE OF VISIT : 01/07/24 REFERRING PROVIDER: Oneida Beltran Reason for Visit: Systemic Mastocytosis HPI Ashley Kee is a 63 y.o. female with PMH of colonic polyps, recurrent abdominal pain, referred for evaluation of possible systemic mastocytosis She was in her usual state of [...] the last year. 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 She can work [...] disease. This involves all bones within the [id number] of the study. This has significantly progressed when compared to prior CT scan of 2016 Bone biopsy was done under CT guidance on 10/15/2023 revealing the results summarized separately below that has prompted this referral. Interval update Ashley returns to follow-up on her confirmed diagnosis of Systemic Mastocytosis. She is accompanied by her and this time, her sister, who is senior production supervisor who, by virtue of her line of work, hasrobust understanding of mast cell function. We reviewed that bone marrow aspiration and biopsy did return consistent with systemic mastocytosis. With this information, Ashley has understandably and appropriately reflected on her history and has identified new symptoms. She has noticed that she has had lip swelling/blistering when using blistex. She also has had intense belly pain with vomiting anddiarrhea after eating young slaw that she initially attributed to food allergies. She's had no rashes or episodes suggestive of overt anaphylaxis. Questions asked included whether mastocytosis could be inherited and whether family should get tested as well. They also asked about the rate of progression to mast cell leukemia. Her case was discussed at tumor board with our hematopathology colleaguesnoting how striking her biopsy was for mastocytosis and our clinical trials team also noted that she may be a candidate for our [id number] protocol for evaluation of [id number] for non-advanced systemic mastocytosis. She and her family met with our colleague, Dr. Truong, as well as research RN Bennett Turner to review trial detail. ROS is otherwise unremarkable. Problem List Patient Active Problem List Diagnosis Code Back pain M54.9 Right leg pain M79.604 Thoracic Outlet Syndrome Surgical Hx Past Surgical History: Procedure Laterality Date CT GUIDED BIOPSY BONE(EXTREMITIES/PELVIS) 10/15/2023 CT Guided Biopsy Bone (Extremities/Pelvis) 10/15/2023 Charissa Alcala MD [facility] RAD CT SCAN PRO DIAGNOSTIC BONE MARROW BIOPSIES & ASPIRATIONS N/A 12/15/2023 ([facility] MSURG) BONE MARROW BIOPSY AND ASPIRATION; DIAGNOSTIC (WRVU 1.44) performed by Bismark Degroot MD at [facility] OSC Colonoscopies Bilateral ileofemoral bypass Cholecystectomy Hysterectomy Right shoulder surgeries x 2 (once had rib removed) Medications I reviewed the medication list in the eDH with the pt Current Outpatient Medications Medication Instructions EPINEPHrine 0.3 mg/0.3 mL Auto-Injector Inject 0.3 mL IM once as needed for allergic reaction (Throat tight, difficulty breathing). Call 911 as directed. Allergies/ADR I reviewed the allergies listed in the eDH with the pt Allergies Allergen Reactions Percocet [Oxycodone-Acetaminophen] Nausea And Vomiting Ciprofloxacin Other (See Comments) Burning with IV administration, needed benadryl Ibuprofen Hives Morphine Sulfate Nausea And Vomiting Nsaids (Non-Steroidal Anti-Inflammatory Drug) Hives Social Hx Social History Socioeconomic History Marital status: Spouse name: None Number of children: None Years of education: None Highest education level: None Occupational History None Tobacco Use Smoking status: Former Current packs/day: 0.00 Average packs/day: 1 pack/day for 30.0 years (30.0 ttl pk-yrs) Types: Cigarettes Quit date: 2012 Years since quittin.7 Smokeless tobacco: Never Tobacco comments: 3 PK A DAY Substance and Sexual Activity Alcohol use: No Drug use: No Sexual activity: None Other Topics Concern None Social History Narrative None Social Determinants of Health Financial Resource Strain: Not on file Food Insecurity: Not on file Transportation Needs: Not on file Physical Activity: Not on file Intimate Partner Violence: Not At Risk (12/15/2023) IPV Inpatient Questions Prevent Contact with Others: no Feels Threatened by Someone: no Feels Unsafe at Home: no Physical Signs of Abuse Present: no Housing Stability: Not on file Work history: [employer]er, has [employer] license ETOH: None Smoking: None 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 Physical Exam Vitals Blood pressure 107/54, pulse 97, temperature 36.7 ??C (98.1 ??F), temperature source Temporal, resp. rate 17, height 162 cm (5' 3.78), weight 56.4 kg (124 lb 5.4 oz), SpO2 96%. Body mass index is 21.49 kg/m??. Body surface area is 1.59 meters squared. ECOG - ecog ps: 1 - Symptomatic but completely ambulatory Constitutional: Well-appearing woman in no acute distress. Skin: No bruises or petechiae seen. No rashes or lesions. No urticaria noted. HEENT: Atraumatic. Anicteric sclera. Conjunctivae are without injection or pallor. Moist mucosa. Cardiac: Regular, without murmurs, gallops, or rubs. Respiratory: Lungs are clear to posterior auscultation bilaterally. Abdomen: Soft and non-tender. No obvious hepatosplenomegaly. No masses, guarding or rebound. Normalbowel sounds. Extremities: Warm and well-perfused and without lower extremity edema. Neurologic: Fully alert and oriented; no grossly apparent focal deficits. Labs No results found for this or any previous visit (from the past 336 hour(s)). None this visit SPEP 06/24/2023 - No monoclonal proteins identified (available care everywhere) Pathology Bone Marrow Aspiration and Biopsy 12/15/2023 Morphology Hypercellular marrow with trilineage hematopoiesis, no increase in blasts and abnormal mast cell aggregates. Flow cytometry supports the diagnostic interpretation. Mast cell aggregates (>15) with spindled forms and CD25 expression are seen. 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 (VAF not reported in EMR info available to us) NGS: No significant gene variants detected, however there were two SNVs: DMNT3A (Tier 3 variant, [id number]) VAF 15.67% JAK2 (Tier 3 variant, [id number]--zfpt not canonical variant) VAF 46.32% JAK2, FARTUN, MPL 11/25/2023 NO DELETERIOUS MUTATIONS Bone Biopsy 10/15/2023 DIAGNOSIS A - Bone, left posterior ilium, biopsy: - Systemic mastocytosis (see discussion) Electronically signed by: Spencer VELEZ, PhD, Dimitrios Awad Verified: 10/22/2023 11:53 Dermatopathologist, Bone & Soft Tissue Pathologist Performed at: -[facility] Dept. of Pathology, [place] [address] Glass Carrier: Alexander Gandara MD, FCAP, CLIA Certificate: [id number] DISCUSSION The biopsy specimen demonstrates histopathologic and [...] - No evidence of disease BiRADS 1 CT C/A/P not available in referring documentation or care everywhere for review to my knowledge. Assessment and Plan # Concern for Systemic Mastocytosis # History of Recurrent Abdominal [...] is not valid). [Blood (2013) 121 (16): 1549-4542.] Ashley has met the major criteria of systemic mastocytosis and appears to meet several, potentially all, minor criteria. Regarding B, biopsy reflected less than 30% mast cells and tryptase remains under 200 (though not by much) and she has no known hepatomegaly or [...] she has no clear evidence of malabsorption. The one possible finding that could be a C finding would be her radiographic appearance of skeletal involvement, however, she has had no pathologic fracture or freya lytic lesions. Our hematopathology group did not believe this was consistent with mast cell leukemia. It may be reasonable for us to again review molecular studies with our group as it's a bit perplexing that our assay did not detect KIT mutation, but send out to [facility] did. I'm guessing the latter is higher sensitivity assay, but this would be good to confirm. Also, VAF would be helpful. We will need to recheck tryptase at next visit to ensure it remains under 200. While she does not have the B fin dings to suggest higher tumor burden, I do think extent of skeletal findings and degree of tryptaseelevation absent CHANDAN may suggest moderate tumor burden. For now, Ashley has an EpiPen and adherence keeping it handily available and protected against elements is strongly encouraged. In summary, at present, she appears to have non-advanced SM. Dr Truong and research RN Bennett Grant met with them to discuss the 27IJD040 protocol for evaluation of [id number] for non-advanced systemic mastocytosis. Pending completion of work and trial candidacy, we will start H2 daniel (famotidine 20 mg BID), Zyretc 10 mg QD, and Singular 5 mg. We will have her report back to us in person in 3 weeks to see if initial treatment made any difference on symptoms, particularly GI related. . Summary of recommendations - Recommend DEXA scan ordered by PCP and done locally if patient prefers - First line treatment - Epi-Pen should be kept current and taken at all times - Start famotidine 20 mg BID for GI symptoms - Start cetirizine 10 mg QD for headaches or cutaneous symptoms - Start Montelukast 5 mg chewable to start - Obtain imaging records - Consideration for clinical trials., RTC 3 weeks I reviewed my impression and recommendations with Ashley Kee and answered all the questions.. Ptagreed with the plan. Thank you for inviting us to participate in the care of this patient; please don't hesitate to contact me if you'd like to discuss this patient's situation further. Omid Degroto MD Section of Hematology [employer] Metal Assemblerretail warehouse associate [facility] Greater than 40 minutes were spent on date of visit, on my portion of visit, including non-face to face time. Patient consents to use of [facility] portal for communication of results. This note was completed using Lala[employer] Dictation technology. Please reach out if there are significant errors in warper creeler that require clarification on my part. CC: Estrella Mckay, Oneida Encarnacion documented in this encounter Plan of Treatment Upcoming Encounters Date Type Department Care Team (Late st Contact Info) Description 03/02/2024 8:30 AM EST Office Visit [place] [address] [facility] [place] [address] 03/04/2024 7:00 AM EST Appointment Mammography/[place] [phone] [facility] [place] [address] 03/07/2024 10:45 AM EST Laboratory Appointment Lab at [facility] Hematology Oncology [address] [place], [place] [id number] 03/07/2024 11:30 AM EST Office Visit Hematology and Oncology at [place] [phone] Bennett Turner, RN 03/07/2024 11:30 AM EST Office Visit Hematology and Oncology at [address] [facility] [place] [address] 03/10/2024 8:15 AM EST Laboratory Appointment Lab at [facility] Hematology Oncology [address] [place], [place] [phone] 03/10/2024 8:30 AM EST Scheduled View Only Hematology and Oncology at [place] [address] 03/10/2024 9:00 AM EST Office Visit Hematology and Oncology at [address] [facility] [place] [address] 03/10/2024 9:00 AM EST Office Visit Hematology and Oncology at [place] [phone] Bennett Turner, RN 03/25/2024 9:30 AM EST Tech Visit Vascular Lab at [place] [phone] Carlton Higgins, RVT 03/25/2024 10:15 AM EST Office Visit Vascular Surgery at [place] [phone] [facility] [place] [address] documented as of this encounter Visit Diagnoses Diagnosis Systemic mastocytosis Malignant mast cell tumors, unspecified site, extranodal and solid organ sites documented in this encounter Care Teams Bail Bondsman Relationship Specialty Start Date End Date Estrella Mckay, SLD EDUCATIONAL AIDE [facility] [place] [address] PCP - General Family Medicine 12/14/23 documented as of this encounter
--- OUTSIDE RECORDS SUMMARY | 2024-02-29 15:53 | XMS_ITS | Encounter Summary ---
[place] [address] Care Team Providers Care Supervisor Product Inspection Name Role Phone Estrella Mckay APRN Primary Care Provider [phone] Reason for Referral * Diagnostic Test (Routine) - Closed Specialty Diagnoses / Procedures Referred By Contac t Referred To Contact Radiology Diagnoses Systemic mastocytosis Procedures MRI Abdomen and Pelvis WWO Contrast MRI Liver wwo Contrast MRI Abdomen and Pelvis WWO Contrast Edmund Truong MD [facility] DR HEMATOLOGY [place] [address] [place] [address] Referral ID Status Reason Start Date Expiration Date V isits Requested Visits Authorized [id number] Closed Specialty Service Requested 01/19/2024 07/19/2025 1 1 Reason for Visit * Diagnostic Test (Routine) - Closed Specialty Diagnoses / Procedures Referred By Contac t Referred To Contact Radiology Diagnoses Systemic mastocytosis Procedures MRI Abdomen and Pelvis WWO Contrast MRI Liver wwo Contrast MRI Abdomen and Pelvis WWO Contrast Edmund Truong MD [facility] DR HEMATOLOGY [place] [address] [place] [address] Referral ID Status Reason Start Date Expiration Date V isits Requested Visits Authorized [id number] Closed Specialty Service Requested 01/19/2024 07/19/2025 1 1 Encounter Details Date Type Department Care Team (Latest Contact Info) Description 01/28/2024 5:26 AM EDT - 01/28/2024 10:07 AM EDT Hospital [place] [address] Edmund Truong MD [facility] DR HEMATOLOGY [place] [address] Systemic mastocytosis Discharge Disposition: Home Social History Tobacco Use Types Packs/Day Years Used Date Smoking Tobacco: Former Cigarettes 1 30 Q uit: 2012 Smokeless Tobacco: Never Comments:3 PK A DAY Alcohol Use Standard Drinks/Week Comments No 0 (1 standard drink = 0.6 oz pur e alcohol) [facility] Inpatient Questions Answer Date Recorded Does Anyone [...] Sig Dispensed Refills Start Date End Date cetirizine (ZyrTEC) 10 mg tabletIndications:Syste john Mastocytosis [...] AM EST Office Visit Vascular Surgery at [place] [address] Sarah Bah APRN [facility] [place] [address] 03/04/2024 7:00 AM EST Appointment Mammography/DXA at [place] [address] Edmund Truong MD [facility] DR HEMATOLOGY [place] [address] 03/07/2024 10:45 AM EST Laboratory Appointment Lab [place] [facility] [place] On[place] [address] [place] [address] 03/07/2024 11:30 AM EST Office Visit Hematology and Oncology at [place] [address] Bennett Turner RN 03/07/2024 11:30 AM EST Office Visit Hematology and Oncology at [place] [address] Edmund Truong MD [facility] DR HEMATOLOGY [place] [address] 03/10/2024 8:15 AM EST Laboratory Appointment Lab at [facility] [place] [address] [place] [address] 03/10/2024 8:30 AM EST Scheduled View Only Hematology and Oncology at [place] [address] 03/10/2024 9:00 AM EST Office Visit Hematology and Oncology at [place] [address] Omid Degroot MD [facility] [place] [address] 03/10/2024 9:00 AM EST Office Visit Hematology [place] [address] Bennett Turner RN 03/25/2024 9:30 AM EST Tech [place] [address] Carlton Higgins, RVT 03/25/2024 10:15 AM EST Office [place] [address] Tomy Raymond MD [facility] [place] [address] documented as of this encounter Procedures Procedure Name Priority Date/Time Associated Diagnosis Comments MRI ABDOMEN AND PELVIS WWO CONTRAST Routine 01/28/2024 6:35 AM EDT Systemic mastocytosis documented in this encounter Results * MRI Abdomen and Pelvis WWO Contrast (01/28/2024 6:35 AM EDT) [employer] WORKSTATION ID [id number] [facility] Anatomical Region Laterality Modality Abdomen Magnetic Resonan [...] who have questions please contact the health care taker that requested your imaging first. ? --------ORIGINAL REPORT -------- EXAMINATION: MRI ABDOMEN AND PELVIS WWO CONTRAST CLINICAL HISTORY: Patient with systemic mastocytosis, screening for protocol [id number]. ??Please provide liver and spleen size and [...] who have questions please contact the health care taker that requested your imaging first. ? Impressions 01/28/2024 11:22 AM EDT 1. Liver [...] who have questions please contact the health care taker that requested your imaging first. ? Narrative 01/28/2024 11:22 AM EDT EXAMINATION: MRI ABDOMEN AND PELVIS WWO CONTRAST CLINICAL HISTORY: Patient with systemic mastocytosis, screening for protocol [id number]. ??Please provide liver and spleen size and [...] HISTORY: Patient with systemic mastocytosis, screening forprotocol [id number]. Please provide liver and spleen size and [...] patients who have questions please contactthe health care taker that requested your imaging first. Edmund Truong MD IMG MRI ORDERABLES documented in this encounter Visit Diagnoses Diagnosis Systemic mastocytosis Malignant mast cell tumors, unspecified site, extranodal and solid organ sites documented in this encounter Administered Medications Inactive Administered Medications - up to 3 most recent administrations Medication Order MAR Action Action Date Dose Rate Site gadoterate meglumine (Dotarem) (0.5 mMol/mL) injection solution 0-100 mL 0-100 mL, Intravenous, ONCE PRN, 1 dose, Starting on Opal 01/28/24 at 0635, Until Opal 01/28/24 at 0625, Per Protocol, Radiology Contrast, Routine Given 01/28/2024 6:25 AM EDT 11 mLs documented in this encounter Care Teams Supervisor Product Inspection Relationship Specialty Start Date End Date Estrella Mckay, TUNNEL KILN REPAIRER [place] [address] [place] [address] PCP - General Family Medicine 12/14/23 documented as of this encounter
--- OUTSIDE RECORDS SUMMARY | 2024-02-29 15:53 | XMS_ITS | Encounter Summary ---
Author Organization [facility] [place] [address] Care Team Providers Care Tractor Distributor Name Role Phone Estrella Mckay APRN Primary Care Provider [phone] Encounter Details Date Type Department Care Team (Latest Contact Info) Description 01/07/2024 Travel Social History Tobacco Use Types Packs/Day [...] AM EST Office [place] [phone] Sarah Bah APRN [facility] [place] [address] 03/04/2024 7:00 AM EST Appointment Mammography/[place] [address] Edmund Truong MD [facility] DR [place] [address] 03/07/2024 10:45 AM EST Laboratory Appointment Lab at [facility] Hematology Oncology [address] [place] [address] 03/07/2024 11:30 AM EST Office Visit Hematology and Oncology at [place] [address] Bennett Turner, RN 03/07/2024 11:30 AM EST Office Visit Hematology and Oncology at [place] [address] Edmund Truong MD [facility] [address] [place] [address] 03/10/2024 8:15 AM EST Laboratory Appointment Lab at [facility] Hematology Oncology [address] [place], [place] [phone] 03/10/2024 8:30 AM EST Scheduled View Only Hematology and Oncology at [place] [address] 03/10/2024 9:00 AM EST Office Visit Hematology and Oncology at [place] [address] Omid Degroot MD [facility] [place] [address] 03/10/2024 9:00 AM EST Office Visit Hematology and Oncology at [place] [address] Bennett Turner, RN 03/25/2024 9:30 AM EST Tech Visit Vascular Lab at [place] [address] Carlton Higgins, RVT 03/25/2024 10:15 AM EST Office [place] [address] Tomy Raymond MD [facility] [place] [address] documented as of this encounter Visit Diagnoses Not on filedocumented in this encounter Care Teams Tractor Distributor Relationship Specialty Start Date End Date Estrella Mckay, GRINDER SET UP OPERATOR THREAD TOOL [facility] [place] [address] PCP - General Family Medicine 12/14/23 documented as of this encounter
--- OUTSIDE RECORDS SUMMARY | 2024-02-29 15:53 | XMS_ITS | Encounter Summary ---
Author Organization [place] [id number] Care Team Providers Care Refinery Operator Helper Crude Unit Name Role Phone Estrella Mckay APRN Primary Care Provider [phone] Reason for Visit * Reason Comments Advice Only * Consultation (Routine) - Closed Specialty Diagnoses / Procedures Referred By Contac t Referred To Contact Diagnoses Systemic mastocytosis Omid Degroot MD [facility] [place] [address] [facility] [place] [address] Referral ID Status Reason Start Date Expiration Date V isits Requested Visits Authorized [id number] Closed Continuity of Care 01/21/2024 01/20/2025 1 1 Encounter Details Date Type Department Care Team (Latest Contact Info) Description 01/28/2024 9:30 AM EDT Clinical Support Hematology and Oncology at [place] [phone] [facility] [place] [address] Systemic mastocytosis Social History Tobacco Use Types Packs/Day Years Used Date Smoking Tobacco: Former Cigarettes 1 30 Q uit: 2013 Smokeless Tobacco: Never Comments:3/4TH PK A DAY Alcohol Use Standard Drinks/Week Comments No 0 (1 standard drink = 0.6 oz pur e alcohol) [facility] Inpatient Questions Answer Date Recorded [...] Sign Reading Time Taken Comments Blood Pressure 114/52 01/28/2024 9:22 AM EDT Pulse 77 01/28/2024 9:22 AM EDT Temperature 36.3 ??C (97.3 ??F) 01/28/2024 9:22 AM ED T Respiratory Rate 16 01/28/2024 9:22 AM EDT Oxygen Saturation 100% 01/28/2024 9:22 AM EDT Inhaled Oxygen Concentration - - Weight 57.3 kg (126 lb 5.2 oz) 01/28/2024 9:22 A M EDT Height 159.3 cm (5' 2.72) 01/28/2024 9:22 AM ED T Body Mass Index 22.58 01/28/2024 9:22 AM EDT documented in this encounter Progress Notes * Radha Patahk, RD - 01/28/2024 9:30 AM EDT [facility] Nutrition Assessment Patient Name: Ashley Kee Diagnosis: Systemic mastocytosis Referred by: Dr. Degroot Treatment: pending Assessment: HPI Pt is 63 yo female with systemic mastocytosis. Pt notes flushing 'all the time'. She reports she iscrampy and gets diarrhea quickly at times, after a few bites. (ie she had coleslaw and vomiting andhad diarrhea) Bloating, gassy, crampy- yucky BM: not good, going from diarrhea (bad) to constipated (miralax will usually work) Before that she had diarrhea all the time Worst is early in the morning- first thing in the morning She reports she is exhausted, fatigued. A low histamine diet is sometimes recommended for systemic mastocytosis. This diet is very restrictive and should only be used as a guide to help pinpoint foods that are not tolerated. Although formal studies are lacking, the optimal diet for MCAS may be one containing whole foods with reduction of ultra-processed foods and avoidance of perceived triggers and intolerances including dairy products high in lactose, wheat and gluten-containing foods, and food preservatives and dyes- source: Nutrition Issues in Gastroenterology, Practical Gastroenterology September 2019. Discussed foods on the list with Ashley. She is not eating many of them, but does eat a fair amount of chocolate. Suggested avoiding chocolate for 4 days and then reintroducing. She is already avoiding alcohol, which is generally triggering for most patients. Suggested keeping a food journal with all food she is eating and recording if she has a reaction after eating. Focus on less processed foods if possible. She plans to start a clinical trial. Past Medical History: Diagnosis Date Back pain 10/27/2011 Right leg pain 10/27/2011 Wt Readings from Last 3 Encounters: 01/07/24 56.4 kg (124 lb 5.4 oz) 12/15/23 54.4 kg (120 lb) 11/25/23 55 kg (121 lb 4.1 oz) UBW: 120 milton 66 hrs, 55 hrs. Estimated Needs: Calories: 1680 kcal (30 kcal/kg) Protein: 67-84g (1.2-1.5g/kg) Meds: zyrtec, pepcid, singulair Labs: noted Diet Recall: B- no breakfast L - salad - turkey or sandwich (egg salad or tuna) D- steak and mashed potatoes Eats little meat Appetite is not good Sometimes will snack while driving ie [place] Shellfish Fluids: water, soda, coffee Staying as hydrated as she can Intervention: - keep a food journal to track any reactions to foods - handout: Foods Rich in Histamines - H1/H2 blockers per MD - goal to maintain weight Monitoring: Will f/u with pt in 2 weeks. Pt has my contact information if needed. Radha Pathak RD, CNSC, LD documented in this encounter Plan of Treatment Upcoming Encounters Date Type Department Care Team (Late st Contact Info) Description 03/02/2024 8:30 AM EST Office Visit [place] [phone] Sarah Bah, PARAM [facility] [place] [address] 03/04/2024 7:00 AM EST Appointment Mammography/DXA at [place] [address] Edmund Truong MD [facility] DR HEMATOLOGY [place] [address] 03/07/2024 10:45 AM EST Laboratory Appointment Lab at [facility] [place] [place] Hematology Oncology [address] [place] [address] 03/07/2024 11:30 AM EST Office Visit Hematology and Oncology at [place] [address] Bennett Turner RN 03/07/2024 11:30 AM EST Office Visit Hematology and Oncology at [place] [address] Edmund Truong MD [facility] DR HEMATOLOGY [place] [address] 03/10/2024 8:15 AM EST Laboratory Appointment Lab at [facility] [place] [place] Hematology Oncology [address] [place] [address] 03/10/2024 8:30 AM EST Scheduled View Only Hematology and Oncology at [place] [address] 03/10/2024 9:00 AM EST Office Visit Hematology and Oncology at [place] [address] Omid Degroot MD [facility] [address] 03/10/2024 9:00 AM EST Office Visit Hematology and Oncology at [place] [phone] Bennett Turner RN 03/25/2024 9:30 AM EST Tech [place] [phone] Carlton Higgins, RVT 03/25/2024 10:15 AM EST Office [place] [phone] Tomy Raymond MD [facility] [place] [address] documented as of this encounter Visit Diagnoses Diagnosis Systemic mastocytosis Malignant mast cell tumors, unspecified site, extranodal and solid organ sites documented in this encounter Care Teams Refinery Operator Helper Crude Unit Relationship Specialty Start Date End Date Estrella Mckay, MICA MACHINE OPERATOR [place] [address] [place] [address] PCP - General Family Medicine 12/14/23 documented as of this encounter
--- OUTSIDE RECORDS SUMMARY | 2024-02-29 15:53 | XMS_ITS | Encounter Summary ---
[place] [address] Care Team Providers Care Jukebox Routeman Name Role Phone Estrella Mckay APRN Primary Care Provider [phone] Encounter Details Date Type Department Care Team (Late st Contact Info) Description 01/07/2024 Notes Only [place]ology [place] [phone] Bennett Turner RN Social History Tobacco Use Types Packs/Day Years Used Date Smoking Tobacco: Former Cigarettes 1 30 Q uit: 2013 Smokeless Tobacco: Never Comments:3/4TH PK A DAY Alcohol Use Standard Drinks/Week Comments No 0 (1 standard drink = 0.6 oz pur e alcohol) REPLACED BY [facility] Inpatient Questions Answer Date Recorded Does [...] Progress Notes * Bennett Turner RN - 01/07/2024 8:24 PM EDT RESEARCH INFORMED CONSENT NOTE [id number]: (SUMMIT) A MULTI-PART, RANDOMIZED, DOUBLE-BLIND, PLACEBO-CONTROLLED PHASE 2 CLINICAL STUDY OF THE SAFETY AND EFFICACY OF [id number] IN SUBJECTS WITH NONADVANCED SYSTEMIC MASTOCYTOSIS. Date: 01/07/2024 Objective of visit: Meet with the patient and her sister in clinic along with Dr. Truong at the request of Dr. Degroot to provide further information regarding protocol [id number], answer questions or concerns about study plan and evaluate interest in study participation. Dr. Truong introduced the study and discussed risks, benefits, and other alternatives to study treatment. Information Provided: Protocol was broadly reviewed with Ashley Chhaya Chilango along with Dr. Truong including, a description of the proposed treatment, medications, efficacy assessments, Potential side effects and risks were broadly reviewed. The patient was informed regarding the uncertainties, both interms of benefit as well as risks that are part of participation in clinical trials. Reviewed alternative treatments per study consent document. Ashley Kee was advised that they may discontinue treatment at any time and that refusing to participate or discontinuing treatment will not compromise the patient's access to treatment options or care. Ashley Kee was given a copy of the ICF and a copy was given to her sister, along with information on Avapritinib. Assessment/Outcome: Ashley Kee verbalized interest in possible study participation. She and her sister will take theICF home to review. My contact number was also given to Ashley Kee and she was encoutraged to call me with any questions or concerns. We will plan to meet again when she returns for her next visit in 2-3 week. *I attest that I am certified and authorized to obtain legally effective informed consent from human subject participants per policy #26932 v.1* Plan: 1. Pt will review ICF, call with any concerns or questions. 2. Will plan to meet with Ashley Kee when she returns in 2-3 weeks to review ICF in more detail and obtain consent if she wishes. documented in this encounter Plan of Treatment Upcoming Encounters Date Type Department Care Team (Late st Contact Info) Description 03/02/2024 8:30 AM EST Office [place] [address] Sarah Bah, PARAM [facility] [place] [address] 03/04/2024 7:00 AM EST Appointment Mammography/DXA at [place] [address] Edmund Truong MD [facility] DR HEMATOLOGY [place] [address] 03/07/2024 10:45 AM EST Laboratory Appointment Lab at [facility] Oncology [address] [place] [address] 03/07/2024 11:30 AM EST Office Visit Hematology and Oncology at [place] [address] Bennett Turner RN 03/07/2024 11:30 AM EST Office Visit Hematology and Oncology at [place] [address] Edmund Truong MD [facility] DR HEMATOLOGY [place] [address] 03/10/2024 8:15 AM EST Laboratory Appointment Lab at [facility] [place] [address] 03/10/2024 8:30 AM EST Scheduled View Only Hematology and Oncology at [place] [address] 03/10/2024 9:00 AM EST Office Visit Hematology and Oncology at [place] [address] Omid Degroot MD [facility] [place] [address] 03/10/2024 9:00 AM EST Office Visit Hematology and Oncology at [place] [phone] Bennett Turner RN 03/25/2024 9:30 AM EST Tech Visit [place] [address] Carlton Higgins, RVT 03/25/2024 10:15 AM EST Office [place] [phone] Tomy Raymond MD [facility] [place] [address] documented as of this encounter Visit Diagnoses Not on filedocumented in this encounter Care Teams Jukebox Routeman Relationship Specialty Start Date End Date Estrella Mckay, EDUCATION DIRECTOR [place] [address] PCP - General Family Medicine 12/14/23 documented as of this encounter
--- OUTSIDE RECORDS SUMMARY | 2024-02-29 15:53 | XMS_ITS | Encounter Summary ---
[place] [address] Care Team Providers Care Custom Feed Corn Operator Name Role Phone Estrella Mckay APRN Primary Care Provider [phone] Encounter Details Date Type Department Care Team (Late st Contact Info) Description 01/18/2024 Notes Only Hematology [place] [phone] Bennett Turner RN Social History Tobacco Use [...] Progress Notes * Bennett Turner RN - 01/18/2024 1:39 PM EDT RESEARCH NURSE TELEPHONE NOTE [id number]: (SUMMIT) A MULTI-PART, RANDOMIZED, DOUBLE-BLIND, PLACEBO-CONTROLLED PHASE 2 CLINICAL STUDY OF THE SAFETY AND EFFICACY OF [id number] IN SUBJECTS WITH NONADVANCED SYSTEMIC MASTOCYTOSIS. Date: 01/18/2024 Time: 1:39 PM Study Day: Pre-screening Reason for call: Called to see if she has any questions regarding the Informed Consent Document forprotocol [id number] and determine if I should set up an appointment for further review of ICF and possible consent. Ashley Kee states she is definitely interested in moving ahead with the consent. Appointment set up for 01/20/24 @ 1030. Ashley Kee also mentioned that she is having significant nausea and vomiting. She believes that the Famotidine is making her nauseated, and reports that she has been vomiting every day after taking the famotidine in the morning. She reports that the only thing that she can keep down is saltines and pretzels. She reported that she needed to call out from work the first day as the nausea and vomiting was so bad. She also reports that she has been very constipated. She did talk with Lucero, our nurse, and took Miralax on Thursday which resulted in a hard constipated stool on Thursday am. She did not move her bowels on Thursday, so on Thursday evening, again took MIralax, which resulted in a hard stool this am. Encouraged her to start taking the Miralax every evening, and if she continues with hard BM's or noBM, she should take an additional dose of Miralax in the am. She verbalized agreement and understanding of the plan. Signs/Symptoms & Adverse Events (insert table via quick text on first occasion then copy from pervious note for all subsequent notes) EVENT CTCAE GRADE START DATE STOP DATE Nausea 2 01/08/24 Vomiting 2 01/08/24 Constipation 2 ? Education Provided: As above Plan: Miralax 1-2 times per day until stools soft and daily Scheduled for consent on 01/20/24. ' Will ask SOC RN's to send messages to me regarding GI symptoms in order to monitor. Message sent to Dr. Degroot and Dr. Truong Pt understands and agrees with plan and knows she can call the clinic with any further questions orconcerns. documented in this encounter Plan of Treatment Upcoming Encounters Date Type Department Care Team (Late st Contact Info) Description 03/02/2024 8:30 AM EST Office Visit Vascular Surgery at [place] [address] Sarah Bah APRN [facility] [place] [address] 03/04/2024 7:00 AM EST Appointment Mammography/DXA at [place] [address] Edmund Truong MD [facility] [place] [address] 03/07/2024 10:45 AM EST Laboratory Appointment Lab at [facility] Hematology Oncology [address] [place] [address] 03/07/2024 11:30 AM EST Office Visit Hematology and Oncology at [place] [address] Bennett Turner RN 03/07/2024 11:30 AM EST Office Visit Hematology and Oncology at [place] [address] Edmund Truong MD [facility] DR [place] [address] 03/10/2024 8:15 AM EST Laboratory Appointment Lab at [facility] Hematology Oncology [address] [place] [address] 03/10/2024 8:30 AM EST Scheduled View Only Hematology and Oncology at [place] [address] 03/10/2024 9:00 AM EST Office Visit Hematology and Oncology at [address] Omid Degroot MD [facility] [place] [address] 03/10/2024 9:00 AM EST Office Visit Hematology [place] [address] Bennett Turner, RN 03/25/2024 9:30 AM EST Tech Visit V[place] [address] Carlton Higgins, RVT 03/25/2024 10:15 AM EST Office [place] [address] Tomy Raymond MD [facility] [place] [address] documented as of this encounter Visit Diagnoses Not on filedocumented in this encounter Care Teams Custom Feed Corn Operator Relationship Specialty Start Date End Date Estrella Mckay, COUPON REDEMPTION CLERK [place] [address] PCP - General Family Medicine 12/14/23 documented as of this encounter
--- OUTSIDE RECORDS SUMMARY | 2024-02-29 15:53 | XMS_ITS | Encounter Summary ---
Author Organization [facility] [place] [address] Care Team Providers Care Offset Pressman Name Role Phone Estrella Mckay APRN Primary Care Provider [phone] Encounter Details Date Type Department Care Team (Latest Contact Info) Description 01/23/2024 Travel Social History Tobacco Use Types Packs/Day [...] EST Office Visit [place] [phone] Sarah Bah APRN [facility] [place] [address] 03/04/2024 7:00 AM EST Appointment Mammography/[place] [address] Edmund Truong MD [facility] DR HEMATOLOGY [place] [address] 03/07/2024 10:45 AM EST Laboratory Appointment Lab at [facility] [place] On[place] [address] [place] [address] 03/07/2024 11:30 AM EST Office Visit Hematology and Oncology at [place] [address] Bennett Turner, RN 03/07/2024 11:30 AM EST Office Visit Hematology and Oncology at [place] [address] Edmund Truong MD [facility] DR HEMATOLOGY [place] [address] 03/10/2024 8:15 AM EST Laboratory Appointment Lab at [facility] H[place] Oncology [address] [place], [place] [phone] 03/10/2024 8:30 AM EST Scheduled View Only Hematology and Oncology at [place] [address] 03/10/2024 9:00 AM EST Office Visit Hematology and Oncology at [place] [address] Omid Degroot MD [facility] [place] [address] 03/10/2024 9:00 AM EST Office Visit Hematology and Oncology at [place] [address] Bennett Turner, RN 03/25/2024 9:30 AM EST Tech Visit Vascular Lab at [place] [address] Carlton Higgins, RVT 03/25/2024 10:15 AM EST Office Visit [place] [address] Tomy Raymond MD [facility] [place] [address] documented as of this encounter Visit Diagnoses Not on filedocumented in this encounter Care Teams Offset Pressman Relationship Specialty Start Date End Date Estrella Mckay, SCREEN MAKING TECHNICIAN [facility] [place] [address] PCP - General Family Medicine 12/14/23 documented as of this encounter
--- OUTSIDE RECORDS SUMMARY | 2024-02-29 15:53 | XMS_ITS | Encounter Summary ---
[place] [address] Care Team Providers Care Car Pre Cooler Name Role Phone Estrella Mckay APRN Primary Care Provider [phone] Encounter Details Date Type Department Care Team (Late st Contact Info) Description 01/21/2024 Notes Only Hematology [place] [phone] Bennett Turner RN Social History Tobacco Use [...] Progress Notes * Bennett Turner RN - 01/21/2024 1:15 PM EDT RESEARCH NURSE TELEPHONE NOTE [id number]: (SUMMIT) A MULTI-PART, RANDOMIZED, DOUBLE-BLIND, PLACEBO-CONTROLLED PHASE 2 CLINICAL STUDY OF THE SAFETY AND EFFICACY OF [id number] IN SUBJECTS WITH NONADVANCED SYSTEMIC MASTOCYTOSIS. Date: 01/21/2024 Time: 1:15 PM Study Day: Pre-screening Reason for call: To check on GI status Spoke w/ Ashley Kee who stated she is feeling much better today. She reports she has taken in 60oz of fluids already today, and she ate a very small amount for lunch. She denies any nausea, vomiting or diarrhea today. She reports she was able to take the Pepcid this am without any issues, and was able to take her meds last evening as well. Discussed GI symptoms further with Ashley Kee and she states that these GI symptoms have been ongoing for quite some time, and is not new with the addition of the meds after her last visit. She reports she has tried to track her diet to see if there are specifics foods that cause the GI symptoms, but was unsuccessful in identifying any triggers. Discussed possible referral to dietary to see if they might be able to help. She is open to this option. Reviewed schedule for Thursday and . Will try to add dietary consult to 's schedule per Ashley Kee's request. Plan: Plan for consent on 01/24. Screening visit on 1023. Dietary consult on 01/27 if possible. Pt understands and agrees with plan and knows she can call the clinic with any further questions orconcerns. documented in this encounter Plan of Treatment Upcoming Encounters Date Type Department Care Team (Late st Contact Info) Description 03/02/2024 8:30 AM EST Office Visit [place] [address] Sarah Bah APRN [facility] [place] [address] 03/04/2024 7:00 AM EST Appointment Mammography/[place] [phone] Edmund Truong MD [facility] DR HEMATOLOGY [place] [address] 03/07/2024 10:45 AM EST Laboratory Appointment Lab at [facility] Hematology Oncology [address] [place] [address] 03/07/2024 11:30 AM EST Office Visit Hematology and Oncology at [place] [phone] Bennett Turner, RN 03/07/2024 11:30 AM EST Office Visit Hematology and Oncology at [address] Edmund Truong MD [facility] DR HEMATOLOGY [place] [address] 03/10/2024 8:15 AM EST Laboratory Appointment Lab at [facility] Hematology Oncology [address] [place], [place] [phone] 03/10/2024 8:30 AM EST Scheduled View Only Hematology and Oncology at [place] [address] 03/10/2024 9:00 AM EST Office Visit Hematology and Oncology at [place] [address] Omid Degroot MD [facility] [place] [address] 03/10/2024 9:00 AM EST Office Visit Hematology and Oncology at [place] [phone] Bennett Turner, RN 03/25/2024 9:30 AM EST Tech Visit Vascular Lab at [place] [phone] Carlton Higgins, RVT 03/25/2024 10:15 AM EST Office Visit Vascular Surgery at [place] [phone] Tomy Raymond MD [facility] [place] [address] documented as of this encounter Visit Diagnoses Not on filedocumented in this encounter Care Teams Car Pre Cooler Relationship Specialty Start Date End Date Estrella Mckay, [place]AM [place] [address] PCP - General Family Medicine 12/14/23 documented as of this encounter
--- OUTSIDE RECORDS SUMMARY | 2024-02-29 15:53 | XMS_ITS | Encounter Summary ---
Author Organization [facility] [place] [address] Care Team Providers Care Process Planner Name Role Phone Estrella Mckay APRN Primary Care Provider [phone] Encounter Details Date Type Department Care Team (Latest Contact Info) Description 01/27/2024 Travel Social History Tobacco Use Types Packs/Day [...] AM EST Office [place] [phone] Sarah Bah APRN [facility] [place] [address] 03/04/2024 7:00 AM EST Appointment Mammography/[place] [address] Edmund Truong MD [facility] DR [place] [address] 03/07/2024 10:45 AM EST Laboratory Appointment Lab [place] [facility] [place] [address] [place] [address] 03/07/2024 11:30 AM EST Office Visit Hematology and Oncology at [place] [address] Bennett Turner, RN 03/07/2024 11:30 AM EST Office Visit Hematology and Oncology at [place] [address] Edmund Truong MD [facility] DR [place] [address] 03/10/2024 8:15 AM EST Laboratory Appointment Lab at [facility] [place] [address] [place], [place] [phone] 03/10/2024 8:30 AM EST Scheduled View Only Hematology and Oncology at [place] [address] 03/10/2024 9:00 AM EST Office Visit Hematology and Oncology at [place] [address] Omid Degroot MD [facility] [place] [address] 03/10/2024 9:00 AM EST Office Visit Hematology and Oncology at [place] [address] Bennett Turner, RN 03/25/2024 9:30 AM EST Tech Visit Vascular Lab at [place] [address] Carlton Higgins, RVT 03/25/2024 10:15 AM EST Office [place] [address] Tomy Raymond MD [facility] [place] [address] documented as of this encounter Visit Diagnoses Not on filedocumented in this encounter Care Teams Process Planner Relationship Specialty Start Date End Date Estrella Mckay, STUDENT SUPPORT SERVICES DIRECTOR [facility] [place] [address] PCP - General Family Medicine 12/14/23 documented as of this encounter
--- OUTSIDE RECORDS SUMMARY | 2024-02-29 15:53 | XMS_ITS | Encounter Summary ---
Author Organization [facility] [place] [address] Care Team Providers Care Community Service Director Name Role Phone Umerdean Oneida Dean VIRGEN Primary Care Provider [phone] Encounter Details Date Type Department Care Team (Latest Contact Info) Description 11/25/2023 Travel Social History Tobacco Use Types Packs/Day Years Used Date Smoking Tobacco: Former Cigarettes 1 30 Q uit: 2013 Smokeless Tobacco: Never Comments:3/4TH PK A DAY Alcohol Use Standard Drinks/Week Comments No 0 (1 standard drink = 0.6 oz pur e alcohol) Sex and Gender Information Value Date Recorded Sex Assigned at Not on file Gender Identity Not on file Sexual Orientation Not on file documented as of this encounter Plan of Treatment Upcoming Encounters Date Type Department Care Team (Late st Contact Info) Description 03/02/2024 8:30 AM EST Office [place] [phone] Sarah Bah APRN [facility] [place] [address] 03/04/2024 7:00 AM EST Appointment Mammography/[place] [phone] Edmund Truong MD [facility] DR HEMATOLOGY [place] [address] 03/07/2024 10:45 AM EST Laboratory Appointment Lab at [facility] [place] Hematology Oncology [address] [place] [phone] 03/07/2024 11:30 AM EST Office Visit Hematology and Oncology at [place] [phone] Bennett Turner, RN 03/07/2024 11:30 AM EST Office Visit Hematology and Oncology at [place] [phone] Edmund Truong MD [facility] DR HEMATOLOGY [place] [address] 03/10/2024 8:15 AM EST Laboratory Appointment Lab at [facility] [place] Hematology Oncology [address] [place], [place] [phone] 03/10/2024 8:30 AM EST Scheduled View Only Hematology and Oncology at [place] [phone] 03/10/2024 9:00 AM EST Office Visit Hematology and Oncology at [place] [address] Omid Degroot MD [facility] [place] [address] 03/10/2024 9:00 AM EST Office Visit Hematology and Oncology at [place] [phone] Bennett Turner, RN 03/25/2024 9:30 AM EST Tech Visit Vascular Lab at [place] [phone] Carlton Higgins, RVT 03/25/2024 10:15 AM EST Office Visit Vascular Surgery at [place] [phone] Tomy Raymond MD [facility] [place] [address] documented as of this encounter Visit Diagnoses Not on filedocumented in this encounter Care Teams Community Service Director Relationship Specialty Start Date End Date Oneida Beltran APRN PCP - General Family Medicine 07/16/17 12/13/23 documented as of this encounter
--- OUTSIDE RECORDS SUMMARY | 2024-02-29 15:53 | XMS_ITS | Encounter Summary ---
Author Organization [facility] [place] [address] Care Team Providers Care Laborer Cutting Tool Name Role Phone Estrella Mckay APRN Primary Care Provider [phone] Encounter Details Date Type Department Care Team (Latest Contact Info) Description 12/30/2023 Travel Social History Tobacco Use Types Packs/Day [...] AM EST Office [place] [phone] Sarah Bah APRN [facility] [place] [address] 03/04/2024 7:00 AM EST Appointment Mammography/[place] [address] Edmund Truong MD [facility] DR [place] [address] 03/07/2024 10:45 AM EST Laboratory Appointment Lab at [facility] [place] [address] [place] [address] 03/07/2024 11:30 AM EST Office Visit Hematology and Oncology at [place] [address] Bennett Turner, RN 03/07/2024 11:30 AM EST Office Visit Hematology and Oncology at [place] [address] Edmund Truong MD [facility] DR [place] [address] 03/10/2024 8:15 AM EST Laboratory Appointment Lab at [facility] [place]ology Oncology [address] [place], [place] [phone] 03/10/2024 8:30 AM EST Scheduled View Only Hematology and Oncology at [place] [address] 03/10/2024 9:00 AM EST Office Visit Hematology and Oncology at [place] [address] Omid Degroot MD [facility] [place] [address] 03/10/2024 9:00 AM EST Office Visit Hematology and Oncology at [place] [address] Bennett Turner, RN 03/25/2024 9:30 AM EST Tech Visit Vascular Lab at [place] [address] Carlton Higgins, RVT 03/25/2024 10:15 AM EST Office [place] [address] Tomy Raymond MD [facility] [place] [address] documented as of this encounter Visit Diagnoses Not on filedocumented in this encounter Care Teams Laborer Cutting Tool Relationship Specialty Start Date End Date Estrella Mckay, INVESTIGATIVE AGENT [facility] [place] [address] PCP - General Family Medicine 12/14/23 documented as of this encounter
--- OUTSIDE RECORDS SUMMARY | 2024-02-29 15:53 | XMS_ITS | Encounter Summary ---
Author Organization [facility] [place] [address] Care Team Providers Care Fire Prevention Research Engineer Name Role Phone Estrella Mckay APRN Primary Care Provider [phone] Encounter Details Date Type Department Care Team (Latest Contact Info) Description 01/21/2024 Travel Social History Tobacco Use Types Packs/Day [...] AM EST Office [place] [phone] Sarah Bah APRN [facility] [place] [place] [address] 03/04/2024 7:00 AM EST Appointment Mammography/[place] [address] Edmund Truong MD [facility] DR [place] [address] 03/07/2024 10:45 AM EST Laboratory Appointment Lab [place] [facility] [place] [address] [place] [address] 03/07/2024 11:30 AM EST Office Visit Hematology and Oncology at [place] [address] Bennett Turner, RN 03/07/2024 11:30 AM EST Office Visit Hematology and Oncology at [place] [address] Edmund Truong MD [facility] DR [place] [address] 03/10/2024 8:15 AM EST Laboratory Appointment Lab at [facility] [place] On[place] [address] [place], [place] [phone] 03/10/2024 8:30 AM EST Scheduled View Only Hematology and Oncology at [place] [address] 03/10/2024 9:00 AM EST Office Visit Hematology and Oncology at [place] [address] Omid Degroot MD [facility] [place] [address] 03/10/2024 9:00 AM EST Office Visit Hematology and Oncology at [place] [address] Bennett Turner, RN 03/25/2024 9:30 AM EST Tech Visit Vascular Lab at [place] [address] Calrton Higgins, RVT 03/25/2024 10:15 AM EST Office [place] [address] Tomy Raymond MD [facility] [place] [place] [address] documented as of this encounter Visit Diagnoses Not on filedocumented in this encounter Care Teams Fire Prevention Research Engineer Relationship Specialty Start Date End Date Estrella Mckay, FOOD WRITER [facility] [place] [address] PCP - General Family Medicine 12/14/23 documented as of this encounter
--- OUTSIDE RECORDS SUMMARY | 2024-02-29 15:53 | XMS_ITS | Encounter Summary ---
[place] [address] Care Team Providers Care Mason Helper Name Role Phone Estrella Mckay APRN Primary Care Provider [phone] Reason for Visit * Auth/Cert (Routine) Specialty Diagnoses / Procedures Referred By Contac t Referred To Contact Diagnoses Systemic Mastocytosis, Polycythemia Procedures PRO DIAGNOSTIC BONE MARROW BIOPSIES & ASPIRATIONS ([facility]) BONE MARROW BIOPSY AND ASPIRATION; DIAGNOSTIC (WRVU 1.44) Omid Degroot MD [facility] [place] [address] [facility] Referral ID Status Reason Start Date Expiration Date Visits Re quested Visits Authorized [id number] 1 1 Encounter Details Date Type Department Care Team (Latest Contact Info) Description 12/15/2023 9:21 AM EDT - 12/15/2023 11:35 AM EDT Hospital Encounter Outpatient [place] [address] Omid Degroot MD [facility] [place] [address] Discharge Disposition: Home Social History Tobacco Use Types Packs/Day Years Used Date Smoking Tobacco: Former Cigarettes 1 30 Q uit: 2012 Smokeless Tobacco: Never Comments:3/4TH PK A DAY Alcohol Use Standard Drinks/Week Comments No 0 (1 standard drink = 0.6 oz pur e alcohol) [facility] Inpatient Questions Answer Date Recorded [...] 5pm or on a weekend: Call the [facility] punch machine operator at and ask for the physician correctional security officer covering for your doctor. Instructions following sedation [...] drainage occurs, please [place] [address] [email or web address] [employer] [facility] documented in this encounter Medications at [...] Procedure: 12/15/2023 Proceduralist: Sheree Young RN, MS, TRAVELING STOREKEEPER DIAGNOSIS: MGUS Pre-Procedure: (x) Consent signed and [...] AM EST Office Visit Vascular Surgery at [place] [phone] Sarah Bah APRN [facility] [place] [address] 03/04/2024 7:00 AM EST Appointment Mammography/DXA at [place] [address] Edmund Truong MD [facility] [place] [address] 03/07/2024 10:45 AM EST Laboratory Appointment Lab at [facility] Hematology Oncology [address] [place], [place] [phone] 03/07/2024 11:30 AM EST Office Visit Hematology [place] [phone] Bennett Turner RN 03/07/2024 11:30 AM EST Office Visit Hematology [place] [phone] Edmund Truong MD [facility] DR [place] [address] 03/10/2024 8:15 AM EST Laboratory Appointment Lab at [facility] Hematology Oncology [address] [place], [place] [phone] 03/10/2024 8:30 AM EST Scheduled View Only Hematology and Oncology at [place] [phone] 03/10/2024 9:00 AM EST Office Visit Hematology and Oncology at [place] [phone] Omid Degroot MD [facility] [place] [address] 03/10/2024 9:00 AM EST Office Visit Hematology and Oncology at [place] [phone] Bennett Turner RN 03/25/2024 9:30 AM EST Tech Visit Vascular Lab at [place] [phone] Carlton Higgins, RVT 03/25/2024 10:15 AM EST Office [place] [phone] Tomy Raymond MD [facility] [place] [address] documented as of this encounter Procedures Procedure [...] MARROW Routine 12/15/2023 10:56 AM EDT [facility] TEST-[facility] Routine 12/15/2023 1 0:56 AM EDT Diagnostic Bone Marrow Biopsies & Aspirations (91639) Yes 12/15/2023 10:46 AM EDT Systemic Mastocytosis, Polycythemia CBC (WITH DIFF) Routine 12/15/2023 10:04 AM EDT ([facility]) BONE MARROW BIOPSY AND ASPIRATION; DIAGNOSTIC Routine 12/15/2023 9:41 AM EDT documented in this encounter Results * [facility] Test-[place] (12/15/2023 10:56 AM EDT) [facility] Result (May) SEE COMMENTS 01/05/2024 12:23 PM EDT [facility]F [facility] [place] Comment: Test ? Result ? Flag ??Unit ??RefValue KIT [id number] Mutation Analysis, V ??Specimen Type ?Extracted DNA from blood ??Interpretation ? 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 ?The p.Qbn118Rht (D816V) mutation in the KIT gene is ?identified in > 80% of systemic mastocytosis and less ?commonly in cutaneous mastocytosis. It represents a minor ?diagnostic criterion for systemic mastocytosis in the World ?Health Organization (WHO) classification system. ?Presence of the KIT D816V mutation confers resistance to ?some tyrosine kinase inhibitors such as imatinib, nilotinib ?and masitinib but has shown response to midostaurin (PMID: ?49864996; 58001900; 49262897). Midostaurin has been ?approved by the Food and Drug Administration (FDA) in adult ?patients with advanced systemic mastocytosis irrespective ?of D816V mutational status ?(https://www.fda.gov/drugs/saeqrdict-bclawnzkemq-dvclserc-dr ?ugs/midostaurin). ? ADDITIONAL INFORMATION ?Method summary - A qualitative, allele-specific polymerase ?chain reaction a(PCR) was performed on DNA. This was used ?to evaluate for the point mutation causing KIT Owu634Ver ?(D816V). The analytic sensitivity of this assay is 0.1%. ?This test was developed and its performance characteristics ?determined by [facility] in a manner consistent with CLIA ?requirements. This test has not been cleared or approved by ?the U.S. Food and Drug Administration. ??Signing Pathologist ?Oj Chambers D.O., M.S. ?Test Performed by: ?[facility] ?[address] [place] [address] ?Loan Processing Supervisor: Felipe Arroyo Ph.D.; CLIA# [id number] DNA VENOUS BLOOD SPECIMEN / Unknown Non Blood Collection / Unknown 12/15/2023 10:56 AM EDT 12/31/2023 10:15 AM EDT Lb Broderick DO LAB SEND OUT ORDERA BLES REF LAB [place] [address] [place] [address], [facility] [place] * DH HemeSeq (Bone Marrow) (12/15/2023 10:56 AM EDT) NGS Report Status Normal 12/27/2023 8:[address] [facility] Bone Marrow Non Blood Collection / Unknown 12/15/2023 10:56 AM EDT 12/15/2023 12:15 PM EDT Lb Broderick DO MOLECULAR ORDERABLE S Performing Organization Address City/[facility]/ZIP Co de Phone Number [facility] [place] [address] * Immunophenotyping Flow Cytometry (12/15/2023 10:56 AM EDT) Final Diagnosis Minor population, compatible with abnormal mast cells (see Comment). 12/17/2023 12:54 PM EDT [facility] Signing Pathologist This result has been reviewed by Lb Guzman DO on 12/17/23 at 12:54 PM. 12/17/2023 12:54 PM EDT [facility] Discussion Correlation with morphologic findings of the bone marrow biopsy is suggested. 12/17/2023 12:54 PM EDT [facility] Interpretation [id number] gating detected a minor population compatible with mast cells that expresses CD2 and CD25, compatible with abnormal mast cells. B-cells are polytypic and T-cells do not show an aberrant population. No increase in blasts detected. 12/17/2023 12:54 PM EDT [facility] Lymphocyte % 13.3 % 12/17/2023 12:54 PM [facility] Monocyte % 3.8 % 12/17/2023 12:54 PM [facility] Granulocyte % 77.8 % 12/17/2023 12:54 PM [facility] CD45 DIM % 1.0 % 12/17/2023 12:54 PM [facility] CD38 Bright/CD138+ 0.1 % 12/17/2023 12:54 PM [facility] CD3+ % 82.0 % 12/17/2023 12:54 PM [facility] CD19+ % 13.0 % 12/17/2023 12:54 PM [facility] CD56+ % 5.0 % 12/17/2023 12:54 PM [facility] B-Cell:T-Cell Ratio 0.2 12/17/2023 12:54 PM [facility] [place]:Lambda Ratio 0.9 12/17/2023 12:54 PM [facility] CD4:CD8 Ratio 1.7 12/17/2023 12:54 PM [facility] Specimen Processing Cells for immunophenotypic analysis were derived from bone marrow. The following markers were assessed: CD2, CD3, CD4, CD5, CD7, CD8, CD10, CD13, CD14, CD19, CD25, CD34, CD45, CD56, CD117, HLA-DR, kappa light chain and lambda light chain. 12/17/2023 12:54 PM [facility] Disclaimer Flow analysis is an ancillary study. A definite diagnosis requires correlation with the morphologic features of this process and if necessary, correlation with other ancillary studies like immunohistochemist ry, enzyme cytochemistry and/or cyto/molecular genetics. This test was developed and its performance characteristics determined by the Clinical Flow Cytometry Laboratory at [facility]. It has not been cleared or [...] clinical laboratory testing. 12/17/2023 12:54 PM EDT [facility] Clinical Information Suspicion for mastocytosis. 12/17/2023 12:54 PM EDT [facility] Bone Marrow Non Blood Collection / Unknown 12/15/2023 10:56 AM EDT 12/15/2023 12:15 PM EDT Lb Broderick DO HEMATOLOGY ORDERABL ES [facility] [place] [address] * Chromosome Analysis, Acquired ([facility]) (12/15/2023 10:56 AM EDT) Chromosome, Leukemia/Lymph benny ([facility]) See Scanned Result 12/28/2023 11:04 AM EDT [facility] Specimen Condition ([facility]) 12/28/2023 11:04 AM EDT [facility] Bone Marrow Non Blood Collection / Unknown 12/15/2023 10:56 AM EDT 12/15/2023 12:15 PM EDT Lb Broderick DO LAB SEND OUT ORDERA BLES Performing Organization Address City/[facility]/ZIP Co de Phone Number REF [facility] [address] [place] [address] * BM HOLD CYTOGENETICS/FISH (12/15/2023 10:56 AM EDT) Bone Marrow Non Blood Collection / Unknown 12/15/2023 10:56 AM EDT 12/15/2023 12:15 PM EDT Omid Degroot MD PATHOLOGY/CYTOLOGY ORDERABLES [facility] [place] [address] * BM HOLD FLOW/MOLECULAR (12/15/2023 10:56 AM EDT) Bone Marrow Non Blood Collection / Unknown 12/15/2023 10:56 AM EDT 12/15/2023 12:15 PM EDT Omid Degroot MD PATHOLOGY/CYTOLOGY ORDERABLES Performing Organization Address [facility]/State/ZIP Co de Phone Number [facility] [place] [address] * (ABNORMAL) Bone Marrow (12/15/2023 10:56 AM EDT) Case Report Bone Marrow Patholog y Report ?Case: [id number] ? Authorizing Provider: ??Omid Degroot MD ? Collected: ? 12/15/2023 1056 ? Ordering Location: ? [facility] ??Received: ?12/15/2023 1215 ? [facility] ? Hospital ? Pathologist: ? Cleveland Whitney MD ? Specimens: ?? A) - Iliac Crest, Right ? B) - Iliac Crest, Right ? C) - Iliac Crest, Right ? 4 2:41 PM EDT [facility] Integrated Results Ancillary send out [...] systemic mastocytosis (ISM). 4 2:41 PM EDT [facility] Addendum electronically signed by Lb Guzman DO on 01/18/2024 at 2:41 PM Final Diagnosis 1. Hypercellular marrow with trilineage hematopoiesis, no increase in blasts and abnormal mast cell aggregates. (See discussion) 2. Ancillary studies pending. 4 2:41 PM [facility] Discussion The patient's histor y of [...] the histologic slides, and confirm the diagnosis. 4 2:41 PM T [facility] Additional Studies Task ID IHC/Special Stains [...] cell and lymphoid aggregates 4 2:41 PM EDT [facility] Clinical Information Hx abnormal bone imaging findings with bone biopsy (not bone marrow) showing evidence of systemic mastocytosis. BmBx to eval for hematological neoplasm, marrow involvement 4 2:41 PM [facility] Gross Description A. Iliac Crest, Right. Number of Lavender (EDTA) tubes: 3 Total Volume of Lavender (EDTA) tubes: 7.9 Number of Green (NaHep) tubes: 1 Total Volume of EDTA tubes: 3.5 Spicule/Clot Section submitted? Present Tube to Biorepository? Present Processed by: July Giancarlo Collected off the campus by: n/a B. Iliac Crest, Right. B - Labeled/Fixative: Iliac crest, right, formalin. Quantity/Size: Single, 1.7 x 0.2 cm. Tissue Description: Red firm needle core biopsies of bone. Sections/Processing: Blocks submitted for decalcification: B 1. Entirely submitted in 1 cassette labeled B1. pps C. Iliac Crest, Right. C - Labeled/Fixative: Iliac crest, right, fresh. Quantity/Size: Fragments, aggregating 0.3 x 0.1 cm. Tissue Description: Hoven soft tissue fragments. Sections/Processing: Entirely submitted in 1 cassette labeled C1. pps 4 2:41 PM [facility] Disclaimer(s) Formalin-fixed, paraffin-embedded tissue sections are [...] and other diagnostic tests. 4 2:41 PM [facility] Bone Marrow Aspirate Adequacy: Smear/touch preparations adequate, cellular. G:E ratio: 1.8:1 Erythroid: Complete normoblastic maturation, no left-shift. Granulocyte: Complete normal maturation, no left-shift. Blasts: Not increased. Megakaryocyte: Normal in number and morphology. Lymphocyte: Scattered mature forms seen, no aggregates appreciated. Plasma cells: Not increased, normal morphology. Other: Increased number of atypical spindled and degranulated mast cells, normal eosinophils, basophils. 4 2:41 PM [facility] Bone Marrow Biopsy and/or Clot Core [...] normal platelet morphology. 4 2:41 PM EDT [facility] Bone Marrow Differential Band/Seg 35% Lymph 11% Miner 1% Eos 2% Baso 0% Metamyelocyte 2% Myelocyte 3% Promyelocyte 1% Blast 0% nRBC's 25% Plasma cell Mast cells 0% 20% 4 2:41 PM EDT [facility] Result Note THIS RESULT REQUIRES PHYSICIAN/AYANA FOLLOW UP(A) 4 2:41 PM EDT [facility] ILIAC CREST STRUCTURE / Unknown 12/15/2023 10:56 AM EDT 12/15/2023 12:15 PM EDT ILIAC CREST STRUCTURE / Unknown 12/15/2023 10:56 AM EDT 12/15/2023 12:15 PM EDT ILIAC CREST STRUCTURE / Unknown 12/15/2023 10:56 AM EDT 12/15/2023 12:15 PM EDT Omid Degroot MD PATHOLOGY/CYTOLOGY ORDERABLES [facility] [place] [address] * (ABNORMAL) CBC (with Diff) (12/15/2023 10:04 AM EDT) White Blood Cell 9.31 4.00 - 9.50 x10(3)/mc L 12/15/2023 11:55 AM EDT [facility] Red Blood Cell 4.93 4.00 - 5.21 x10(6)/mc L 12/15/2023 11:55 AM EDT [facility] Hemoglobin 15.2 11.7 - 15.5 g/dL 12/15/2023 11:55 AM EDT [facility] Hematocrit 44.6 35.7 - 45.8 % 12/15/2023 11:55 AM [facility] Mean Cell Volume 90.5 82.6 - 94.4 fL 12/15/2023 11:55 AM [facility] Mean Cell Hemoglobin 30.8 27.1 - 32.0 pg 12/15/2023 11:55 AM [facility] Mean Cell Hemoglobin Concentration 34.1 31.7 - 35.0 g/dL 12/15/2023 11:55 AM [facility] Platelet 279 145 - 357 x10(3)/mc L 12/15/2023 11:55 AM [facility] Mean Platelet Volume 8.5 7.6 - 12.9 fL 12/15/2023 11:55 AM [facility] RDW Standard Deviation 44.2 37.0 - 46.0 fL 12/15/2023 11:55 AM [facility] RDW coefficient of variation 13.3 11.5 - 14.1 % 12/15/2023 11:55 AM [facility] NRBC% auto 0.0 % 12/15/2023 11:55 AM [facility] NRBC Absolute 0.00 0.00 - 0.00 x10(3)/mc L 12/15/2023 11:55 AM [facility] Neutrophil % 58.0 % 12/15/2023 11:55 AM [facility] Neutrophil Absolute (ANC) - Automated 5.39 1.70 - 6.10 x10(3)/mc L 12/15/2023 11:55 AM [facility] Lymph % 34.7 % 12/15/2023 11:55 AM [facility] Lymph Absolute 3.23(H) 0.90 - 3.20 x10(3)/mc L 12/15/2023 11:55 AM [facility] Monocyte % 6.2 % 12/15/2023 11:55 AM EDT [facility] Monocyte Absolute 0.58 0.30 - 0.90 x10(3)/mc L 12/15/2023 11:55 AM EDT [facility] Eos % 0.6 % 12/15/2023 11:55 AM EDT [facility] Eos Absolute 0.06 0.00 - 0.40 x10(3)/mc L 12/15/2023 11:55 AM EDT [facility] Basophil % 0.3 % 12/15/2023 11:55 AM EDT [facility] Baso Absolute 0.03 0.00 - 0.10 x10(3)/mc L 12/15/2023 11:55 AM EDT [facility] Immature Gran % 0.2 % 11:55 AM EDT [facility] Immature Gran Absolute 0.02 0.00 - 0.04 x10(3)/mc L 12/15/2023 11:55 AM EDT [facility] Blood VENOUS BLOOD SPECIMEN / Unknown IP Care Team Draw / Unknown 12/15/2023 10:04 AM EDT 12/15/2023 10:55 AM EDT Omid Degroot MD HEMATOLOGY ORDERABL ES [facility] [place] [address] documented in this encounter Visit Diagnoses Not [...] Day of Surgery (Day of Procedure) 1005 ([facility] ider: Lucero Yang RN) PRN Medication [...] Routine documented in this encounter Care Teams Mason Helper Relationship Specialty Start Date End Date Estrella Mckay, COUNTY SURVEYOR [facility] AD[place] [address] PCP - General Family Medicine 12/14/23 documented as of this encounter
--- OUTSIDE RECORDS SUMMARY | 2024-02-29 15:53 | XMS_ITS | Encounter Summary ---
Author Organization [facility] [place] [address] Care Team Providers Care Inventory Control Clerk Name Role Phone Estrella Mckay APRN Primary Care Provider [phone] Encounter Details Date Type Department Care Team (Late st Contact Info) Description 01/07/2024 4:00 PM EDT Office Visit Hematology [place] [phone] Edmund Truong MD [facility] [place] [address] Systemic mastocytosis Social History Tobacco Use Types [...] Progress Notes * Edmund Truong MD - 01/07/2024 4:00 PM EDT Cutaneous Lymphoma Follow-Up Clinic Note PCP: Estrella Mckay APRN Referral physician: Estrella Mckay APRN [address] [place] [address] History of present illness: Ashley Kee is seen today in our hematology clinic at request of Dr. Degroot for evaluation of Bone Marrow Biopsy Showing Systemic Mastocytosis. Ashley Kee is a 63 y.o. female [...] the last year. 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 She can work 15+ hour days doing this and she can sometimes do two shifts in a day. Interval History: Ashley Kee is a 63 y.o. 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 She has not taken any seasonal allergy medications in the past. Denies history of asthma. Problem list: Patient Active Problem List Diagnosis Code Back pain M54.9 Right leg pain M79.604 Medications: No outpatient medications have been marked as taking for the 01/07/24 encounter (Office Visit) with Edmund Truong MD. Allergy: Percocet [oxycodone-acetaminophen], Ciprofloxacin, Ibuprofen, Morphine sulfate, and Nsaids (non-steroidal anti-inflammatory drug) Family history: No family history on file. Other Social history: reports that she quit smoking about 11 years ago. Her smoking use included cigarettes. She has a 30pack-year smoking history. She has never used smokeless tobacco. She reports that she does not drink alcohol and does not use drugs. Review of Systems Energy level: Good Pain: none Appetite: good Fevers/chills/sweats: No Bruising/bleeding/melena: No Recent infections: No Nausea/vomiting/diarrhea/constipation: No SOB/PATHAK/chest pain: No Change in adenopathy or other masses: No Unexpected weight loss or gain: No Skin rashes or petechiae: As above Other systems: No additional positive findings A 12-pt review of systems was performed and was otherwise negative except for above. Physical exam: There were no vitals taken for this visit. Gen: not in acute distress Neuro: awake and oriented 3x, non-focal HEENT:no oral lesions, no mucositis, no thrush Heart:S1S2, RRR, no m/r/g Lung: clear bilaterally Abdomen: + BS, soft, NT, ND Extretimities: no edema Skin: Lymph nodes: no palpable cervical, supraclavicular, axillary, inguinal lymphadenopathy Laboratory Data: No results found for this or any previous visit (from the past 72 hour(s)). SPEP 06/24/2023 - No monoclonal proteins identified (available care everywhere) Pathology Bone Biopsy 10/15/2023 DIAGNOSIS A - Bone, left posterior ilium, biopsy: - Systemic mastocytosis (see discussion) Electronically signed by: Spencer VELEZ, PhD, Dimitrios Awad Verified: 10/22/2023 11:53 Dermatopathologist, Bone & Soft Tissue Pathologist Performed at: -[facility] Dept. of Pathology, [place] [address] Pantry Chef: Alexander Gandara MD, FCAP, CLIA Certificate: [id number] DISCUSSION The biopsy specimen demonstrates histopathologic and [...] review to my knowledge. Assessment and Plan Ashley Kee is a 63 y.o.-female with Bone Marrow Biopsy Showing Systemic Mastocytosis. Today, she was prescribed Zyrtec, Singulair, and Pepsid. She was given reading info on the clinicaltrial. We will have to follow up on the complicated genetics report showing non- cannonical JAK2, and also KIT + DMNT3A mutations to see if sponsor will allow patient to be treated on study. Return to clinic in 3-4 weeks. This patient was seen in the multidisciplinary cutaneous lymphoma clinic at [facility]. Edmund Truong MD voice instructor Section of Hematology/Oncology [facility] Scribe Attestation: Documentation assistance was provided by Kimmie larkin a scribe. Dr. Edmund Truong MD obtained and performed the history, physical exam, and medical decision-making elements that were entered into the chart. Signed by Kimmie Posey, 01/07/24 at 4:36 PM. Provider Attestation: Documentation assistance was provided by the scribe, Kimmie Posey. I was present during the time the encounter was recorded. The information recorded by the scribe was done at my direction and has been reviewed and validated by me. Signed by Dr. Edmund Truong MD, 01/07/24 at 4:36 PM. documented in this encounter Plan of Treatment Upcoming Encounters Date Type Department Care Team (Late st Contact Info) Description 03/02/2024 8:30 AM EST Office Visit Vascular Surgery at [place] [address] Sarah Bah APRN [facility] [place] [address] 03/04/2024 7:00 AM EST Appointment Mammography/DXA at [place] [address] Edmund Truong MD [facility] [address] HEMATOLOGY [place] [address] 03/07/2024 10:45 AM EST Laboratory Appointment Lab at [facility] Hematology Oncology [address] [place] [address] 03/07/2024 11:30 AM EST Office Visit Hematology and Oncology at [place] [address] Bennett Turner RN 03/07/2024 11:30 AM EST Office Visit Hematology and Oncology at [place] [address] Edmund Truong MD [facility] [address] HEMATOLOGY [place] [address] 03/10/2024 8:15 AM EST Laboratory Appointment Lab at [facility] Hematology [place] [address] 03/10/2024 8:30 AM EST Scheduled View Only Hematology and Oncology at [place] [address] 03/10/2024 9:00 AM EST Office Visit Hematology and Oncology at [place] [address] Omid Degroot MD [facility] [address] 03/10/2024 9:00 AM EST Office Visit Hematology [place] [address] Bennett Turner, RN 03/25/2024 9:30 AM EST Tech [place] [phone] Carlton Higgins, RVT 03/25/2024 10:15 AM EST Office [place] [phone] Tomy Raymond MD [facility] [place] [address] documented as of this encounter Visit Diagnoses Diagnosis Systemic mastocytosis Malignant mast cell tumors, unspecified site, extranodal and solid organ sites documented in this encounter Care Teams Inventory Control Clerk Relationship Specialty Start Date End Date Estrella Mckay, AGENCY SERVICE REPRESENTATIVE [place] [address] [place] [address] PCP - General Family Medicine 12/14/23 documented as of this encounter
--- OUTSIDE RECORDS SUMMARY | 2024-02-29 15:53 | XMS_ITS | Encounter Summary ---
Author Organization [facility] [place] [address] Care Team Providers Care Wax Ball Knock Out Worker Name Role Phone Estrella Mckay APRN Primary Care Provider [phone] Encounter Details Date Type Department Care Team (Latest Contact Info) Description 01/19/2024 Travel Social History Tobacco Use Types Packs/Day [...] AM EST Office Visit [place] [phone] Sarah Bah APRN [facility] [place] [address] 03/04/2024 7:00 AM EST Appointment Mammography/[place] [address] Edmund Truong MD [facility] DR [place] [address] 03/07/2024 10:45 AM EST Laboratory Appointment Lab at [facility] Hematology Oncology [address] [place] [address] 03/07/2024 11:30 AM EST Office Visit Hematology and Oncology at [place] [address] Bennett Turner, RN 03/07/2024 11:30 AM EST Office Visit Hematology and Oncology at [place] [address] Edmund Truong MD [facility] DR [place] [address] 03/10/2024 8:15 AM EST Laboratory Appointment Lab at [facility] Hematology Oncology [address] [place], [place] [phone] 03/10/2024 8:30 AM EST Scheduled View Only Hematology and Oncology at [place] [address] 03/10/2024 9:00 AM EST Office Visit Hematology and Oncology at [place] [address] Omid Degroot MD [facility] [place] [address] 03/10/2024 9:00 AM EST Office Visit Hematology and Oncology at [place] [address] Bennett Turner, RN 03/25/2024 9:30 AM EST Tech Visit Vascular Lab at [place] [address] Carlton Higgins, RVT 03/25/2024 10:15 AM EST Office Visit [place] [address] Tomy Raymond MD [facility] [place] [address] documented as of this encounter Visit Diagnoses Not on filedocumented in this encounter Care Teams Wax Ball Knock Out Worker Relationship Specialty Start Date End Date Estrella Mckay, PARANORMAL INVESTIGATOR [facility] [place] [address] PCP - General Family Medicine 12/14/23 documented as of this encounter
--- OUTSIDE RECORDS SUMMARY | 2024-02-29 15:53 | XMS_ITS | Encounter Summary ---
Author Organization [facility] [place] [address] Care Team Providers Care Volleyball Commentator Name Role Phone Estrella Mckay APRN Primary Care Provider [phone] Encounter Details Date Type Department Care Team (Late st Contact Info) Description 01/26/2024 Orders Only Hematology [place] [phone] Edmund Truong MD [facility] [address] [place] [address] Systemic mastocytosis Social History Tobacco Use Types [...] AM EST Office [place] [phone] Sarah Bah APRN [facility] [place] [address] 03/04/2024 7:00 AM EST Appointment Mammography/DXA at [place] [address] Edmund Truong MD [facility] [place] [address] 03/07/2024 10:45 AM EST Laboratory Appointment Lab at [facility] Hematology Oncology [address] [place] [address] 03/07/2024 11:30 AM EST Office Visit Hematology and Oncology at [place] [address] Bennett Turner RN 03/07/2024 11:30 AM EST Office Visit Hematology and Oncology at [place] [address] Edmund Truong MD [facility] [place] [address] 03/10/2024 8:15 AM EST Laboratory Appointment Lab at [facility] Hematology Oncology [address] [place], [place] [phone] 03/10/2024 8:30 AM EST Scheduled View Only Hematology and Oncology at [place] [address] 03/10/2024 9:00 AM EST Office Visit Hematology and Oncology at [place] [address] Omid Degroot MD [facility] [place] [address] 03/10/2024 9:00 AM EST Office Visit Hematology and Oncology at [place] [address] Bennett Turner, RN 03/25/2024 9:30 AM EST Tech [place] [phone] Carlton Higgins, RVT 03/25/2024 10:15 AM EST Office [place] [phone] Tomy Raymond MD [facility] [place] [place] [address] Pending Results Name Type Priority Associated Diagnoses Date /Time DARREN Specimens Panel Order Lab STAT Systemic mastocytosis 01/28/2024 9:19 AM EDT Scheduled Orders Name Type Priority Associated Diagnoses Orde r Schedule DARREN Specimens Panel Order Lab STAT Systemic mastocytosis Expected: 01/28/2024, Expires: 07/29/2024 documented as of this encounter Visit Diagnoses Diagnosis Systemic mastocytosis Malignant mast cell tumors, unspecified site, extranodal and solid organ sites documented in this encounter Care Teams Volleyball Commentator Relationship Specialty Start Date End Date Estrella Mckay, FURNITURE FABRICATOR [address] [place] [address] PCP - General Family Medicine 12/14/23 documented as of this encounter
--- OUTSIDE RECORDS SUMMARY | 2024-02-29 15:53 | XMS_ITS | Encounter Summary ---
Author Organization Formerly [facility] [place] [address] Care Team Providers Care Critical Care Unit Nurse Name Role Phone Estrella Mckay APRN Primary Care Provider [phone] Reason for Referral * Diagnostic Test (Routine) - Closed Specialty Diagnoses / Procedures Referred By Contac t Referred To Contact Radiology Diagnoses Systemic mastocytosis Procedures MRI Abdomen and Pelvis WWO Contrast MRI Liver wwo Contrast MRI Abdomen and Pelvis WWO Contrast Edmund Truong MD [facility] DR HEMATOLOGY [place] [address] [place] [address] Referral ID Status Reason Start Date Expiration Date V isits Requested Visits Authorized [id number] Closed Specialty Service Requested 01/19/2024 07/19/2025 1 1 Encounter Details Date Type Department Care Team (Late st Contact Info) Description 01/19/2024 Orders Only Hematology [place] [address] Edmund Truong MD [facility] HEMATOLOGY [place] [address] Systemic mastocytosis Social History Tobacco Use Types [...] AM EST Office [place] [address] Sarah Bah APRN [facility] [place] [address] 03/04/2024 7:00 AM EST Appointment Mammography/[place] [address] Edmund Truong MD [facility] [place] [address] 03/07/2024 10:45 AM EST Laboratory Appointment Lab at [facility] Hematology [address] [phone] 03/07/2024 11:30 AM EST Office Visit Hematology [place] [phone] Bennett Truner RN 03/07/2024 11:30 AM EST Office Visit Hematology [place] [phone] Edmund Truong MD [facility] DR HEMATOLOGY [place] [address] 03/10/2024 8:15 AM EST Laboratory Appointment Lab at [facility] Hematology Oncology [address] [place] [phone] 03/10/2024 8:30 AM EST Scheduled View Only Hematology [place] [phone] 03/10/2024 9:00 AM EST Office Visit Hematology [place] [phone] Omid Degroot MD [facility] [place] [address] 03/10/2024 9:00 AM EST Office Visit Hematology [place] [phone] Bennett Turner RN 03/25/2024 9:30 AM EST Tech [place] [phone] Carlton Higgins, RVT 03/25/2024 10:15 AM EST Office Visit [place] [phone] Tomy Raymond MD [facility] [place] [address] documented as of this encounter Results * EKG 12 Lead (01/28/2024 10:13 AM EDT) Ventricular rate 70 BPM MUSE SYSTEM Atrial Rate 70 BPM MUSE SYSTEM P-R Interval 152 ms MUSE SYSTEM QRS Duration 136 ms MUSE SYSTEM Q-T Interval 446 ms MUSE SYSTEM QTC Calculated (Bezet) 481 ms MUSE SYSTEM Calculated P Joseph 41 degrees MUSE SYSTEM Calculated R Joseph -125 degrees MUSE SYSTEM Calculated T Joseph 34 degrees MUSE SYSTEM INTERPRETATION Normal sinus rhythm Right bundle branch block Abnormal ECG No previous ECGs available Confirmed by MD Maldonado Jose ([id number]) on 01/28/2024 9:41:09 PM MUSE SYSTEM 01/28/2024 10:1 3 AM EDT 01/28/2024 9:41 PM EDT Edmund Truong MD ECG ORDERABLES MUSE SYSTEM * Collagen Type I C-Telopeptide (01/28/2024 9:19 AM EDT) C-Telopeptide (AUGUST) 474 pg/mL 01/29/2024 7:44 PM EDT [facility] [place] Comment: REFERENCE VALUE 148-967 (18-29 y) 150-635 (30-39 y) 131-670 (40-49 y) 183-1060 (50-59 y) 171-970 (60-69 y) 152-858 (>70 y) 136-689 (Premenopausal) 177-1015 (Postmenopausal) Flagging is based on the age-specific reference interval and not menopausal status. Blood VENOUS BLOOD SPECIMEN / Unknown Venipuncture / Unknown 01/28/2024 9:19 AM EDT 01/28/2024 9:19 AM EDT Narrative [facility] [place] - 01/29/2024 7:44 PM EDT Test Performed by: [facility] [address] [place] [address] Sap Ppm Consultant: Felipe Arroyo Ph.D.; CLIA# [id number] Edmund Truong MD LAB SEND OUT ORDER [facility] REF [facility] [address] * (ABNORMAL) Tryptase (01/28/2024 9:19 AM EDT) Tryptase >200.0(H) <=8.4 ng/ml 01/29/2024 10:19 AM EDT [facility] Blood VENOUS BLOOD SPECIMEN / Unknown Venipuncture / Unknown 01/28/2024 9:19 AM EDT 01/28/2024 9:19 AM EDT Edmund Truong MD CHEMISTRY ORDERABL ES Performing Organization Address [facility] Co de Phone Number [facility] [place] [address] * Hepatitis B Core Antibody, IgM (01/28/2024 9:19 AM EDT) Hepatitis B Core IgM Negative Negative 01/28/2024 10:20 AM EDT [facility] Blood VENOUS BLOOD SPECIMEN / Unknown Venipuncture / Unknown 01/28/2024 9:19 AM EDT 01/28/2024 9:19 AM EDT Edmund Truong MD CHEMISTRY ORDERABL ES Performing Organization Address [facility] Co de Phone Number [facility] [place] [address] * Hepatitis B Surface Antibody (01/28/2024 9:19 AM EDT) Hepatitis B Surface Antibody, Quantitative <3.5 IU/L 01/28/2024 1:03 PM EDT [facility] Comment: Unvaccinated: < 8.5 IU/L Vaccinated: >= 11.5 IU/L Hepatitis B Surface Antibody Negative 01/28/2024 1:03 PM EDT [facility] Comment: Patient is presumed to be not vaccinated or immune to HBV infection. Expected Results: Vaccinated: Positive Unvaccinated: Negative Blood VENOUS BLOOD SPECIMEN / Unknown Venipuncture / Unknown 01/28/2024 9:19 AM EDT 01/28/2024 9:19 AM EDT Edmund Truong MD CHEMISTRY ORDERABL ES Performing Organization Address [facility] Co de Phone Number [facility] [place] [address] * Hepatitis B Surface Antigen (01/28/2024 9:19 AM EDT) Hepatitis B Surface Antigen Negative Negative 01/28/2024 10:20 AM EDT [facility] Blood VENOUS BLOOD SPECIMEN / Unknown Venipuncture / Unknown 01/28/2024 9:19 AM EDT 01/28/2024 9:19 AM EDT Edmund Truong MD CHEMISTRY ORDERABL ES Performing Organization Address [facility] Co de Phone Number [facility] [place] [address] * HIV Screen, 4th Generation ([facility]/CGP/APD/NLH) (01/28/2024 9:19 AM EDT) Pathologist [facility] HIV Ab/Ag Screen Negative Negative 01/28/2024 10:20 AM EDT [facility] Comment:Low Risk of HIV Infe ction. Blood VENOUS BLOOD SPECIMEN / Unknown Venipuncture / Unknown 01/28/2024 9:19 AM EDT 01/28/2024 9:19 AM EDT Narrative [facility] - 01/28/2024 10:20 AM EDT [...] MD CHEMISTRY ORDERABL ES Performing Organization Address [facility] Co de Phone Number [facility] [place] [address] * APTT (01/28/2024 9:19 AM EDT) Pathologist [facility] Partial Thromboplastin Time 30 25 - 37 sec 01/28/2024 9:45 AM EDT [facility] Comment: The PTT is NOT appropriate for heparin monitoring. Use the Anti-Xa level for heparin monitoring (HEP UFH) or LMWH monitoring (HEP LMW). A PTT less than 37 seconds generally indicates adequate hemostasis. Blood VENOUS BLOOD SPECIMEN / Unknown Venipuncture / Unknown 01/28/2024 9:19 AM EDT 01/28/2024 9:19 AM EDT Edmund Truong MD HEMATOLOGY ORDERAB LES Performing Organization Address City/[facility] Co de Phone Number [facility] [place] [address] * Prothrombin Time (01/28/2024 9:19 AM EDT) Prothrombin Time 10.9 9.4 - 12.5 sec 01/28/2024 9:45 AM EDT [facility] International Normalization Ratio 1.0 <=4.9 01/28/2024 9:45 AM EDT [facility] Comment: An INR < 2.0 [...] MD HEMATOLOGY ORDERAB LES Performing Organization Address [facility] Co de Phone Number [facility] [place] [address] * Lactate Dehydrogenase (01/28/2024 9:19 AM EDT) Lactate Dehydrogenase 153 110 - 220 unit/L 01/28/2024 10:09 AM EDT [facility] Blood VENOUS BLOOD SPECIMEN / Unknown Venipuncture / Unknown 01/28/2024 9:19 AM EDT 01/28/2024 9:19 AM EDT Edmund Truong MD CHEMISTRY ORDERABL ES Performing Organization Address City/[facility]/ZIP Co de Phone Number [facility] [place] [address] * Phosphorus (01/28/2024 9:19 AM EDT) Phosphorus 3.8 2.5 - 4.5 mg/dL 01/28/2024 10:09 AM EDT [facility] Blood VENOUS BLOOD SPECIMEN / Unknown Venipuncture / Unknown 01/28/2024 9:19 AM EDT 01/28/2024 9:19 AM EDT Edmund Truong MD CHEMISTRY ORDERABL ES [facility] [place] [address] * Magnesium (01/28/2024 9:19 AM EDT) Magnesium 1.04 0.69 - 1.07 mMol/L 01/28/2024 10:09 AM EDT [facility] Blood VENOUS BLOOD SPECIMEN / Unknown Venipuncture / Unknown 01/28/2024 9:19 AM EDT 01/28/2024 9:19 AM EDT Edmund Truong MD CHEMISTRY ORDERABL ES Performing Organization Address City/[facility]/ZIP Co de Phone Number [facility] [place] [address] * Uric acid (01/28/2024 9:19 AM EDT) Uric Acid 4.5 2.5 - 6.5 mg/dL 01/28/2024 10:09 AM EDT [facility] Blood VENOUS BLOOD SPECIMEN / Unknown Venipuncture / Unknown 01/28/2024 9:19 AM EDT 01/28/2024 9:19 AM EDT Edmund Truong MD CHEMISTRY ORDERABL ES [facility] [place] [address] * Gamma GT (01/28/2024 9:19 AM EDT) Pathologist [facility] Gamma Glutamyl Transferase 14 5 - 36 unit/L 01/28/2024 12:36 PM EDT [facility] Blood VENOUS BLOOD SPECIMEN / Unknown Venipuncture / Unknown 01/28/2024 9:19 AM EDT 01/28/2024 9:19 AM EDT Edmund Truong MD CHEMISTRY ORDERABL ES [facility] [place] [address] * (ABNORMAL) Comprehensive metabolic panel Non-fasting (01/28/2024 9:19 AM EDT) Pathologist [facility] Glucose 98 65 - 199 mg/dL 01/28/2024 10:[facility] Comment:Glucose Concentratio n >=200 mg/dL plus symptoms is consistent with Diabetes Mellitus. Blood Urea Nitrogen 7(L) 8 - 18 mg/dL 01/28/2024 10:09 AM [facility] Creatinine 0.79 0.70 - 1.20 mg/dL 01/28/2024 10:09 AM [facility] Sodium 141 135 - 145 mMol/L 01/28/2024 10:09 AM [facility] Potassium 4.1 3.5 - 5.0 mMol/L 01/28/2024 10:09 AM [facility] Chloride 105 98 - 107 mMol/L 01/28/2024 10:09 AM [facility] Carbon Dioxide 25 22 - 31 mMol/L 01/28/2024 10:09 AM [facility] Anion Gap 11 5 - 15 mMol/L 01/28/2024 10:09 AM [facility] Calcium 9.3 8.5 - 10.5 mg/dL 01/28/2024 10:09 AM [facility] Protein, Total 6.9 6.1 - 8.0 g/dL 01/28/2024 10:09 AM [facility] Albumin 4.1 3.2 - 5.2 g/dL 01/28/2024 10:09 AM [facility] Aspartate Aminotransferase 16 <=30 unit/L 01/28/2024 10:09 AM [facility] Alanine Aminotransferase 15 0 - 30 unit/L 01/28/2024 10:09 AM [facility] Alkaline Phosphatase 99 35 - 105 unit/L 01/28/2024 10:09 AM [facility] Bilirubin, Total 0.2 <=1.3 mg/dL 01/28/2024 10:09 AM [facility] Est Glomerular Filtration Rate - Female 84 mL/min/1. 73 m?? 01/28/2024 10:09 AM [facility] [...] Foundation Fasting Status No 01/28/2024 10:09 AM EDT [facility] Blood VENOUS BLOOD SPECIMEN / Unknown Venipuncture / Unknown 01/28/2024 9:19 AM EDT 01/28/2024 9:19 AM EDT Edmund Truong MD CHEMISTRY ORDERABL ES [facility] [place] [address] * (ABNORMAL) CBC (with Diff) (01/28/2024 9:19 AM EDT) White Blood Cell 8.91 4.00 - 9.50 x10(3)/mc L 01/28/2024 9:53 AM [facility] Red Blood Cell 4.89 4.00 - 5.21 x10(6)/mc L 01/28/2024 9:53 AM [facility] Hemoglobin 15.2 11.7 - 15.5 g/dL 01/28/2024 9:53 AM [facility] Hematocrit 45.5 35.7 - 45.8 % 01/28/2024 9:53 AM [facility] Mean Cell Volume 93.0 82.6 - 94.4 fL 01/28/2024 9:53 AM [facility] Mean Cell Hemoglobin 31.1 27.1 - 32.0 pg 01/28/2024 9:53 AM [facility] Mean Cell Hemoglobin Concentration 33.4 31.7 - 35.0 g/dL 01/28/2024 9:53 AM [facility] Platelet 276 145 - 357 x10(3)/mc L 01/28/2024 9:53 AM [facility] Mean Platelet Volume 8.5 7.6 - 12.9 fL 01/28/2024 9:53 AM [facility] RDW Standard Deviation 45.7 37.0 - 46.0 fL 01/28/2024 9:53 AM [facility] RDW coefficient of variation 13.5 11.5 - 14.1 % 01/28/2024 9:53 AM [facility] NRBC% auto 0.0 % 01/28/2024 9:53 AM [facility] NRBC Absolute <0.01 <0.01 x10(3)/mc L 01/28/2024 9:53 AM [facility] Neutrophil % 55.1 % 01/28/2024 9:53 AM [facility] Neutrophil Absolute (ANC) - Automated 4.90 1.70 - 6.10 x10(3)/mc L 01/28/2024 9:53 AM EDT [facility] Lymph % 36.9 % 01/28/2024 9:53 AM EDT [facility] Lymph Absolute 3.29(H) 0.90 - 3.20 x10(3)/mc L 01/28/2024 9:53 AM EDT [facility] Monocyte % 6.3 % 01/28/2024 9:53 AM EDT [facility] Monocyte Absolute 0.56 0.30 - 0.90 x10(3)/mc L 01/28/2024 9:53 AM EDT [facility] Eos % 1.0 % 01/28/2024 9:53 AM EDT [facility] Eos Absolute 0.09 0.00 - 0.40 x10(3)/mc L 01/28/2024 9:53 AM EDT [facility] Basophil % 0.4 % 01/28/2024 9:53 AM EDT [facility] Baso Absolute 0.04 0.00 - 0.10 x10(3)/mc L 01/28/2024 9:53 AM EDT [facility] Immature Gran % 0.3 % 9:53 AM EDT [facility] Immature Gran Absolute <0.04 0.00 - 0.04 x10(3)/mc L 01/28/2024 9:53 AM EDT [facility] Blood VENOUS BLOOD SPECIMEN / Unknown Venipuncture / Unknown 01/28/2024 9:19 AM EDT 01/28/2024 9:19 AM EDT Edmund Truong MD HEMATOLOGY ORDERAB LES [facility] [place] [address] * MRI Abdomen and Pelvis WWO Contrast (01/28/2024 6:35 AM EDT) [facility] WORKSTATION ID [id number] RAD Anatomical Region Laterality Modality Abdomen Magnetic [...] have questions please contact the health career technical supervisor that requested your imaging first. ? Electronically signed by: JOSE MARIA Medrano [facility] ([phone]), at 01/29/2024 4:53 PM --------ORIGINAL REPORT -------- EXAMINATION: MRI ABDOMEN AND PELVIS WWO CONTRAST CLINICAL HISTORY: Patient with systemic mastocytosis, screening for protocol [id number]. ??Please provide liver and spleen size and [...] have questions please contact the health career technical supervisor that requested your imaging first. ? Electronically signed by: JOSE MARIA Medrano [facility] ([phone]), at 01/28/2024 11:22 AM Impressions 01/28/2024 11:22 [...] have questions please contact the health career technical supervisor that requested your imaging first. ? Electronically signed by: JOSE MARIA Medrano [facility] ([phone]), at 01/28/2024 11:22 AM Narrative 01/28/2024 11:22 AM EDT EXAMINATION: MRI ABDOMEN AND PELVIS WWO CONTRAST CLINICAL HISTORY: Patient with systemic mastocytosis, screening for protocol [id number]. ??Please provide liver and spleen size and [...] HISTORY: Patient with systemic mastocytosis, screening forprotocol [id number]. Please provide liver and spleen size and [...] who have questions please contactthe health career technical supervisor that requested your imaging first. Edmund Truong MD IMG MRI ORDERABLES documented in this encounter Visit Diagnoses Diagnosis Systemic mastocytosis Malignant mast cell tumors, unspecified site, extranodal and solid organ sites Systemic mastocytosis Malignant mast cell tumors, unspecified site, extranodal and solid organ sites documented in this encounter Care Teams Critical Care Unit Nurse Relationship Specialty Start Date End Date Estrella Mckay, [place] [address] [place] [address] PCP - General Family Medicine 12/14/23 documented as of this encounter
--- OUTSIDE RECORDS SUMMARY | 2024-02-29 15:53 | XMS_ITS | Encounter Summary ---
Author Organization [facility] [place] [address] Care Team Providers Care Power Generation Turbine Room Operator Name Role Phone Estrella Mckay APRN Primary Care Provider [phone] Encounter Details Date Type Department Care Team (Latest Contact Info) Description 01/02/2024 Travel Social History Tobacco Use Types Packs/Day [...] AM EST Office [place] [phone] Sarah Bah APRN [facility] [place] [address] 03/04/2024 7:00 AM EST Appointment Mammography/[place] [address] Edmund Truong MD [facility] [address] H[place] [address] 03/07/2024 10:45 AM EST Laboratory Appointment Lab at [facility] [place] Oncology [address] [place] [address] 03/07/2024 11:30 AM EST Office Visit Hematology and Oncology at [place] [address] Bennett Turner, RN 03/07/2024 11:30 AM EST Office Visit Hematology and Oncology at [place] [address] Edmund Truong MD [facility] [address] [place]EM[place] [address] 03/10/2024 8:15 AM EST Laboratory Appointment Lab at [facility] [place]ematology Oncology [address] [place], [place] [phone] 03/10/2024 8:30 AM EST Scheduled View Only Hematology and Oncology at [place] [address] 03/10/2024 9:00 AM EST Office Visit Hematology and Oncology at [place] [address] Omid Degroot MD [facility] [place] [address] 03/10/2024 9:00 AM EST Office Visit Hematology and Oncology at [place] [address] Bennett Turner, RN 03/25/2024 9:30 AM EST Tech Visit Vascular Lab at [place] [address] Carlton Higgins, RVT 03/25/2024 10:15 AM EST Office [place] [address] Tomy Raymond MD [facility] [place] [address] documented as of this encounter Visit Diagnoses Not on filedocumented in this encounter Care Teams Power Generation Turbine Room Operator Relationship Specialty Start Date End Date Estrella Mckay, [employer] [facility] [place] [address] PCP - General Family Medicine 12/14/23 documented as of this encounter
--- OUTSIDE RECORDS SUMMARY | 2024-02-29 15:54 | XMS_ITS | Encounter Summary ---
[place] [address] Care Team Providers Care Merchandise Associate Name Role Phone Larisa Kinsey MD Primary Care Provider [phone] Reason for Visit * Reason Onset Date Comments Other 10/27/2011 questions about script Encounter Details Date Type Department Care Team (Late st Contact Info) Description 10/27/2011 Telephone [place] [phone] Jadyn Myers RN Other (questions about script) Social History Tobacco Use Types Packs/Day Years Used Date Smoking Tobacco: Every Day Cigarettes 1 30 Smokeless Tobacco: Never Comments:3/4TH PK A DAY Alcohol Use Standard Drinks/Week Comments No 0 (1 standard drink = 0.6 oz pur e alcohol) Sex and Gender Information Value Date Recorded Sex Assigned at Not on file Gender Identity Not on file Sexual Orientation Not on file documented as of this encounter Miscellaneous Notes * Telephone Encounter - Jadyn Myers RN - 10/27/2011 10:02 AM EDT Received a call from Christy at the [facility] seeking clarification on the Medrol script for Ms. Kee. Case was discussed with ILIANA Jarquin. A call was placed back to the Christy to makeher aware she should take it as directed on the product package. She can disregard the 0.5 tablet portion. documented in this encounter Plan of Treatment Upcoming Encounters Date Type Department Care Team (Late st Contact Info) Description 03/02/2024 8:30 AM EST Office Visit Vascular Surgery at [place] [address] Sarah Bah APRN [facility] [place] [address] 03/04/2024 7:00 AM EST Appointment Mammography/DXA at [place] [address] Edmund Truong MD [facility] DR [place] [address] 03/07/2024 10:45 AM EST Laboratory Appointment Lab at [facility] Hematology Oncology [address] [place] [address] 03/07/2024 11:30 AM EST Office Visit Hematology and Oncology at [place] [address] Bennett Turner RN 03/07/2024 11:30 AM EST Office Visit Hematology and Oncology at [place] [address] Edmund Truong MD [facility] DR [place] [address] 03/10/2024 8:15 AM EST Laboratory Appointment Lab at [facility] Hematology Oncology [address] [place] [address] 03/10/2024 8:30 AM EST Scheduled View Only Hematology and Oncology at [place] [address] 03/10/2024 9:00 AM EST Office Visit Hematology and Oncology at [address] Omid Degroot MD [facility] [place] [address] 03/10/2024 9:00 AM EST Office Visit [place]ology [place] [address] Bennett Turner, RN 03/25/2024 9:30 AM EST Tech Visit [place] [address] Carlton Higgins, RVT 03/25/2024 10:15 AM EST Office [place] [address] Tomy Raymond MD [facility] [place] [address] documented as of this encounter Visit Diagnoses Not on filedocumented in this encounter Care Teams Merchandise Associate Relationship Specialty Start Date End Date Larisa Kinsey MD [address] [address] PCP - General 08/01/11 07/15/17 documented as of this encounter
--- OUTSIDE RECORDS SUMMARY | 2024-02-29 15:54 | XMS_ITS | Encounter Summary ---
[place] [address] Care Team Providers Care Compact Assembler Name Role Phone Oneida Beltran APRN Primary Care Provider [phone] Reason for Referral * Diagnostic Test (Routine) - Closed Specialty Diagnoses / Procedures Referred By Contac t Referred To Contact Radiology Diagnoses Rib pain on right side Procedures MRI Chest Wall wwo Contrast Oneida Beltran APRN [address] [place] [address] [place] [address] Referral ID Status Reason Start Date Expiration Date V isits Requested Visits Authorized [id number] Closed Specialty Service Requested 06/09/2017 06/09/2018 1 1 Reason for Visit * Diagnostic Test (Routine) - Closed Specialty Diagnoses / Procedures Referred By Contac t Referred To Contact Radiology Diagnoses Rib pain on right side Procedures MRI Chest Wall wwo Contrast Oneida Beltran APRN [address] [place] [address] [place] [address] Referral ID Status Reason Start Date Expiration Date V isits Requested Visits Authorized [id number] Closed Specialty Service Requested 06/09/2017 06/09/2018 1 1 Encounter Details Date Type Department Care Team (Latest Contact Info) Description 07/16/2017 7:46 AM EDT - 07/16/2017 11:59 PM EDT Hospital Encounter MRI at [place] [phone] Oneida Beltran, JACQUARD LOOM HEDDLES TIER [address] [place] [address] Rib pain on right side Discharge Disposition: Home Social History Tobacco Use Types Packs/Day Years Used Date Smoking Tobacco: Every Day Cigarettes 1 30 Smokeless Tobacco: Never Comments: PK A DAY [...] AM EST Office Visit Vascular Surgery at [place] [phone] Sarah Bah, JACQUARD LOOM HEDDLES TIER [facility] [place] [address] 03/04/2024 7:00 AM EST Appointment Mammography/DXA at [place] [phone] Edmund Truong MD [facility] DR HEMATOLOGY [place] [address] 03/07/2024 10:45 AM EST Laboratory Appointment [place] [facility] [address] [place] [phone] 03/07/2024 11:30 AM EST Office Visit Hematology and Oncology at [place] [phone] Bennett Turner RN 03/07/2024 11:30 AM EST Office Visit Hematology and Oncology at [place] [phone] Edmund Truong MD [facility] DR HEMATOLOGY [place] [address] 03/10/2024 8:15 AM EST Laboratory Appointment Lab [place] [facility] [place] [address] [place], [place] [phone] 03/10/2024 8:30 AM EST Scheduled View Only Hematology and Oncology at [place] [phone] 03/10/2024 9:00 AM EST Office Visit Hematology and Oncology at [place] [phone] Omid Degroot MD [facility] [place] [address] 03/10/2024 9:00 AM EST Office Visit Hematology and Oncology at [place] [phone] Bennett Turner, RN 03/25/2024 9:30 AM EST Tech Visit [place] [address] Carlton Higgins, RVT 03/25/2024 10:15 AM EST Office Visit Vascular Surgery at [place] [phone] Tomy Raymond MD [facility] [place] [address] documented as of this encounter Procedures Procedure Name Priority Date/Time Associated Diagnosis Comments MRI CHEST WALL WWO CONTRAST Routine 07/16/2017 9:26 AM EDT Rib pain on right side documented in this encounter Results * MRI Chest Wall wwo Contrast (07/16/2017 9:26 AM EDT) Anatomical Region Laterality Modality Chest Magnetic Resonan ce Impressions 07/16/2017 11:38 AM EDT No MR abnormality is identified at the site of the patient's focal pain in the right anterior chest wall. Narrative 07/16/2017 11:38 AM EDT EXAMINATION: MRI CHEST WALL WWO CONTRAST CLINICAL HISTORY: Right-sided wrist pain TECHNIQUE: MRI of a portion of the right anterior chest wall, centered at the site of the patient's focal symptomatology, was performed with and without the intravenous administration of 11 mL of Dotarem. COMPARISON: None FINDINGS: Prior to scanning, a skin marker was placed to denote the site of focal pain in the patient's right anterior chest wall, and the field of view of all imaging sequences was centered around this site. No MR abnormality is identified at the site of the patient's focal pain in the right anterior chest wall. No soft tissue mass is seen. No fluid collection. No abnormal enhancement. No fracture or bone marrow edema is identified. Procedure Note Shelly Wilder MD - 07/16/2017 EXAMINATION: MRI CHEST WALL WWO CONTRAST CLINICAL HISTORY: Right-sided wrist pain TECHNIQUE: MRI of a portion of the right anterior chest wall, centered at the site ofthe patient's focal symptomatology, was performed with and without theintravenous administration of 11 mL of Dotarem. COMPARISON: None FINDINGS: Prior to scanning, a skin marker was placed to denote the site of focalpain in the patient's right anterior chest wall, and the field of view of allimaging sequences was centered around this site. No MR abnormality is identified at the site of the patient's focal pain inthe right anterior chest wall. No soft tissue mass is seen. No fluidcollection. No abnormal enhancement. No fracture or bone marrow edema is identified. IMPRESSION No MR abnormality is identified at the site of the patient's focal pain inthe right anterior chest wall. Oneida Beltran APRN IMG MRI ORDERABLES documented in this encounter Visit Diagnoses Diagnosis Rib pain on right side Chest pain, unspecified documented in this encounter Administered Medications Inactive Administered Medications - up to 3 most recent administrations Medication Order MAR Action Action Date Dose Rate Site gadoterate meglumine (DOTAREM) 0.5 mmol/mL injection 0-20 mL/kg 0-20 mL/kg/dose, Intravenous, ONCE PRN, 1 dose, Starting on Opal 07/16/17 at 0908, Until Opal 07/16/17 at 0905, Per Protocol, Radiology Contrast, Routine Given 07/16/2017 9:05 AM EDT 11 mLs documented in this encounter Care Teams Compact Assembler Relationship Specialty Start Date End Date Oneida Beltran, JACQUARD LOOM HEDDLES TIER PCP - General Family Medicine 07/16/17 12/13/23 documented as of this encounter
--- OUTSIDE RECORDS SUMMARY | 2024-02-29 15:54 | XMS_ITS | Encounter Summary ---
[place] [address] Care Team Providers Care Forestry Instructor Name Role Phone Oneida Beltran APRN Primary Care Provider [phone] Reason for Visit * Consultation (Routine) - Closed Specialty Diagnoses / Procedures Referred By Greg t Referred To Contact Hematology and Oncology Diagnoses Systemic mastocytosis Estrella Mckay, PARAM [address] [place] [address] [facility] Hem Onc [address] [place] [address] Referral ID Status Reason Start Date Expiration Date V isits Requested Visits Authorized [id number] Closed Consult, Test & Treat PCP Updated and/or Approved 10/23/2023 10/22/2024 1 1 Encounter Details Date Type Department Care Team (Latest Contact Info) Description 11/25/2023 7:00 AM EDT - 11/25/2023 11:59 PM EDT Hospital Encounter Hematology [place] [address] Systemic mastocytosis Discharge Disposition: Home Social History [...] AM EST Office Visit Vascular Surgery at [place] [phone] Sarah Bah, PARAM [facility] [place] [address] 03/04/2024 7:00 AM EST Appointment Mammography/DXA at [place] [phone] [facility] DR [place] [address] 03/07/2024 10:45 AM EST Laboratory Appointment Lab at [facility] Hematology Oncology [address] [place] [phone] 03/07/2024 11:30 AM EST Office Visit Hematology [place] [address] Bennett Turner RN 03/07/2024 11:30 AM EST Office Visit Hematology [place] [address] [facility] DR HEMAT[place]Y [place] [address] 03/10/2024 8:15 AM EST Laboratory Appointment Lab at [facility] Hematology Oncology [address] [place] [phone] 03/10/2024 8:30 AM EST Scheduled View Only Hematology [place] [address] 03/10/2024 9:00 AM EST Office Visit [place]ematology [place] [address] [facility] [place] [place] [address] 03/10/2024 9:00 AM EST Office Visit Hematology [place] [address] Bennett Turner RN 03/25/2024 9:30 AM EST Tech [place] [phone] Carlton Higgins, RVT 03/25/2024 10:15 AM EST Office [place] [phone] [facility] [place] [address] documented as of this encounter Procedures Procedure Name Priority Date/Time Associated Diagnosis Comments GOLD TUBE HOLD STAT 11/25/2023 7:19 AM EDT Systemic mastocytosis BLUE TUBE HOLD STAT 11/25/2023 7:19 AM EDT Systemic mastocytosis LAVENDER TUBE HOLD STAT 11/25/2023 7: 19 AM EDT Systemic mastocytosis TRYPTASE STAT 11/25/2023 7:19 AM EDT Systemic mastocytosis CBC (WITH DIFF) STAT 11/25/2023 7:19 AM EDT Systemic mastocytosis LACTATE DEHYDROGENASE STAT 11/25/2023 7:19 AM EDT Systemic mastocytosis COMPREHENSIVE METABOLIC PANEL STAT 11/25/2023 7:19 AM EDT Systemic mastocytosis documented in this encounter Results * (ABNORMAL) Tryptase (11/25/2023 7:19 AM EDT) Tryptase 170.0(H) <=8.4 ng/ml 11/26/2023 1:57 PM EDT [facility] Blood VENOUS BLOOD SPECIMEN / Unknown Venipuncture / Unknown 11/25/2023 7:19 AM EDT 11/25/2023 7:19 AM EDT Omid Degroot MD CHEMISTRY ORDERABLE S Performing Organization Address City/[facility]/ZIP Co de Phone Number [facility] [place] [address] * Lavender Tube HOLD (11/25/2023 7:19 AM EDT) Lavender Hold Hold for Add-on 11/25/2023 9:01 AM EDT [facility] Blood VENOUS BLOOD SPECIMEN / Unknown Venipuncture / Unknown 11/25/2023 7:19 AM EDT 11/25/2023 7:19 AM EDT Omid Degroot MD HEMATOLOGY ORDERABL ES Performing Organization Address City/[facility]/ZIP Co de Phone Number [facility] [place] [address] * Blue Tube HOLD (11/25/2023 7:19 AM EDT) Blue Hold Hold for Add-on 11/25/2023 9:01 AM EDT [facility] Blood VENOUS BLOOD SPECIMEN / Unknown Venipuncture / Unknown 11/25/2023 7:19 AM EDT 11/25/2023 7:19 AM EDT Omid Degroot MD HEMATOLOGY ORDERABL ES Performing Organization Address City/[facility]/ZIP Co de Phone Number [facility] [place] [address] * Gold Tube HOLD (11/25/2023 7:19 AM EDT) [facility] Gold Hold Hold for Add-on 11/25/2023 9:01 AM EDT [facility] Blood VENOUS BLOOD SPECIMEN / Unknown Venipuncture / Unknown 11/25/2023 7:19 AM EDT 11/25/2023 7:19 AM EDT Omid Degroot MD CHEMISTRY ORDERABLE S [facility] [place] [address] * Lactate Dehydrogenase (11/25/2023 7:19 AM EDT) [facility] Lactate Dehydrogenase 186 110 - 220 unit/L 11/25/2023 7:54 AM EDT [facility] Blood VENOUS BLOOD SPECIMEN / Unknown Venipuncture / Unknown 11/25/2023 7:19 AM EDT 11/25/2023 7:19 AM EDT Omid Degroot MD CHEMISTRY ORDERABLE S [facility] [place] [address] * (ABNORMAL) Comprehensive metabolic panel (11/25/2023 7:19 AM EDT) [facility] Glucose 83 65 - 199 mg/dL 11/25/2023 7:54 AM EDT [facility] Comment:Glucose Concentratio n >=200 mg/dL plus symptoms is consistent with Diabetes Mellitus. Blood Urea Nitrogen 7(L) 8 - 18 mg/dL 11/25/2023 7:54 AM EDT [facility] Creatinine 0.72 0.70 - 1.20 mg/dL 11/25/2023 7:54 AM EDT [facility] Sodium 140 135 - 145 mMol/L 11/25/2023 7:54 AM EDT [facility] Potassium 4.4 3.5 - 5.0 mMol/L 11/25/2023 7:54 AM [facility] Chloride 104 98 - 107 mMol/L 11/25/2023 7:54 AM [facility] Carbon Dioxide 23 22 - 31 mMol/L 11/25/2023 7:54 AM [facility] Anion Gap 13 5 - 15 mMol/L 11/25/2023 7:54 AM [facility] Calcium 9.9 8.5 - 10.5 mg/dL 11/25/2023 7:54 AM [facility] Protein, Total 7.3 6.1 - 8.0 g/dL 11/25/2023 7:54 AM [facility] Albumin 4.4 3.2 - 5.2 g/dL 11/25/2023 7:54 AM [facility] Aspartate Aminotransferase 16 <=30 unit/L 11/25/2023 7:54 AM [facility] Alanine Aminotransferase 14 0 - 30 unit/L 11/25/2023 7:54 AM [facility] Alkaline Phosphatase 104 35 - 105 unit/L 11/25/2023 7:54 AM [facility] Bilirubin, Total <0.2 <=1.3 mg/dL 11/25/2023 7:54 AM [facility] Est Glomerular Filtration Rate - Female 94 mL/min/1. 73 m?? 11/25/2023 7:54 AM [facility] Comment: This [...] Calculator [employer] Fasting Status No 11/25/2023 7:54 AM EDT [facility] Blood VENOUS BLOOD SPECIMEN / Unknown Venipuncture / Unknown 11/25/2023 7:19 AM EDT 11/25/2023 7:19 AM EDT Omid Degroot MD CHEMISTRY ORDERABLE S [facility] [place] [address] * (ABNORMAL) CBC (with Diff) (11/25/2023 7:19 AM EDT) White Blood Cell 8.69 4.00 - 9.50 x10(3)/mc L 11/25/2023 7:30 AM EDT [facility] Red Blood Cell 5.27(H) 4.00 - 5.21 x10(6)/mc L 11/25/2023 7:30 AM EDT [facility] Hemoglobin 16.1(H) 11.7 - 15.5 g/dL 11/25/2023 7:30 AM EDT [facility] Hematocrit 47.8(H) 35.7 - 45.8 % 11/25/2023 7:30 AM EDT [facility] Mean Cell Volume 90.7 82.6 - 94.4 fL 11/25/2023 7:30 AM EDT [facility] Mean Cell Hemoglobin 30.6 27.1 - 32.0 pg 11/25/2023 7:30 AM EDT [facility] Mean Cell Hemoglobin Concentration 33.7 31.7 - 35.0 g/dL 11/25/2023 7:30 AM EDT [facility] Platelet 272 145 - 357 x10(3)/mc L 11/25/2023 7:30 AM EDT [facility] Mean Platelet Volume 8.2 7.6 - 12.9 fL 11/25/2023 7:30 AM EDT [facility] RDW Standard Deviation 44.8 37.0 - 46.0 fL 11/25/2023 7:30 AM [facility] RDW coefficient of variation 13.2 11.5 - 14.1 % 11/25/2023 7:30 AM [facility] NRBC% auto 0.0 % 11/25/2023 7:30 AM [facility] NRBC Absolute 0.00 0.00 - 0.00 x10(3)/mc L 11/25/2023 7:30 AM [facility] Neutrophil % 54.1 % 11/25/2023 7:30 AM [facility] Neutrophil Absolute (ANC) - Automated 4.69 1.70 - 6.10 x10(3)/mc L 11/25/2023 7:30 AM [facility] Lymph % 36.7 % 11/25/2023 7:30 AM [facility] Lymph Absolute 3.19 0.90 - 3.20 x10(3)/mc L 11/25/2023 7:30 AM [facility] Monocyte % 7.7 % 11/25/2023 7:30 AM [facility] Monocyte Absolute 0.67 0.30 - 0.90 x10(3)/mc L 11/25/2023 7:30 AM [facility] Eos % 0.9 % 11/25/2023 7:30 AM [facility] Eos Absolute 0.08 0.00 - 0.40 x10(3)/mc L 11/25/2023 7:30 AM [facility] Basophil % 0.3 % 11/25/2023 7:30 AM [facility] Baso Absolute 0.03 0.00 - 0.10 x10(3)/mc L 11/25/2023 7:30 AM [facility] Immature Gran % 0.3 % 7:30 AM [facility] Immature Gran Absolute 0.03 0.00 - 0.04 x10(3)/mc L 11/25/2023 7:30 AM EDT [facility] Blood VENOUS BLOOD SPECIMEN / Unknown Venipuncture / Unknown 11/25/2023 7:19 AM EDT 11/25/2023 7:19 AM EDT Omid Degroot MD HEMATOLOGY ORDERABL ES [facility] [place] [address] documented in this encounter Visit Diagnoses Diagnosis Systemic mastocytosis Malignant mast cell tumors, unspecified site, extranodal and solid organ sites documented in this encounter Care Teams Forestry Instructor Relationship Specialty Start Date End Date Oneida Beltran, REWINDER OPERATOR HELPER PCP - General Family Medicine 07/16/17 12/13/23 documented as of this encounter
--- OUTSIDE RECORDS SUMMARY | 2024-02-29 15:54 | XMS_ITS | Encounter Summary ---
Author Organization [facility] [place] [address] Care Team Providers Care Rubber Stamp Assembler Name Role Phone Larisa Kinsey MD Primary Care Provider [phone] Reason for Visit * Reason Comments Low Back Pain Follow up Encounter Details Date Type Department Care Team (Late st Contact Info) Description 11/03/2011 10:20 AM EDT Office Visit [place] [address] Vee Oneill INFANT NANNY [facility] [place] [address] Right leg pain (Primary Dx) Discharge Disposition: Home Social History Tobacco Use [...] as of this encounter Progress Notes * Vee Oneill APRN - 11/03/2011 10:28 AM EDT Subjective:Ashley Kee is here to review an MRI of the lumbar spine done to evaluate symptoms of right lateral leg pain. Since her last visit, symptoms have improved slightly.. Medications and allergies were updated. Objective: MRI of lumbar spine is reviewed in detail using the computer monitor There is an area ofdecreased signal at S2 which is unchanged from Prior MRI and CT. This was reviewed with Dr Ma in neuroradiology , who felt is was consistent with an atypical hemangioma, and not a worrisome finding.. Findings were described in detail and explained to the patient's satisfaction. The findings arenot consistent with Hersymptoms of right leg pain. Her exam is notable for normal hip ROM , but tenderness over the greater trochanter on te right.. Assessment: Right leg pain inconsistent with MRI , not attributable to the spine. Plan: In view of Ashley Kee's symptoms of Right lateal leg pain and findings of Normal findings with stable hypointense S2 lesion.. We have discussed and agreed upon the following plan: She will follow up with Dr. Franz.. 25 of this 25 minute visit was spent in face to face discussion of symptoms and future plan. All questions were answered. Follow up is PRN documented in this encounter Plan of Treatment Upcoming Encounters Date Type Department Care Team (Late st Contact Info) Description 03/02/2024 8:30 AM EST Office Visit Vascular Surgery at [place] [phone] Sarah Bah APRN [facility] [place] [address] 03/04/2024 7:00 AM EST Appointment Mammography/DXA at [place] [phone] Edmund Truong MD [facility] DR [place] [address] 03/07/2024 10:45 AM EST Laboratory Appointment Lab at [facility] Hematology Oncology [address] [place] [phone] 03/07/2024 11:30 AM EST Office Visit Hematology [place] [phone] Bennett Turner RN 03/07/2024 11:30 AM EST Office Visit Hematology and Oncology at [place] [address] Edmund Truong MD [facility] DR [place] [address] 03/10/2024 8:15 AM EST Laboratory Appointment Lab at [facility] Hematology Oncology [address] [place] [address] 03/10/2024 8:30 AM EST Scheduled View Only Hematology and Oncology at [place] [address] 03/10/2024 9:00 AM EST Office Visit Hematology and Oncology at [place] [address] Omid Degroot MD [facility] [place] [address] 03/10/2024 9:00 AM EST Office Visit Hematology and Oncology at [place] [address] Bennett Turner, RN 03/25/2024 9:30 AM EST Tech Visit Vascular Lab at [place] [address] Carlton Higgins, RVT 03/25/2024 10:15 AM EST Office Visit Vascular Surgery at [place] [address] Tomy Raymond MD [facility] [place] [address] documented as of this encounter Visit Diagnoses Diagnosis Right leg pain- Primary Pain in limb documented in this encounter Care Teams Rubber Stamp Assembler Relationship Specialty Start Date End Date Larisa Kinsey MD [address] [address] PCP - General 08/01/11 07/15/17 documented as of this encounter
--- OUTSIDE RECORDS SUMMARY | 2024-02-29 15:54 | XMS_ITS | Encounter Summary ---
Author Organization [facility] [place] [address] Care Team Providers Care Capacitor Inspector Name Role Phone Larisa Kinsey MD Primary Care Provider [phone] Encounter Details Date Type Department Care Team (Late st Contact Info) Description 07/15/2011 Orders Only Orthopaedics at [place] [phone] Kaveh Winn MD [facility] [place] [address] Social History Tobacco Use Types Packs/Day Years Used Date Smoking Tobacco: Never Assessed Sex and Gender Information Value Date Recorded Sex Assigned at Not on file Gender Identity Not on file Sexual Orientation Not on file documented as of this encounter Plan of Treatment Upcoming Encounters Date Type Department Care Team (Late st Contact Info) Description 03/02/2024 8:30 AM EST Office Visit Vascular Surgery at [place] [phone] Sarah Bah APRN [facility] [place] [address] 03/04/2024 7:00 AM EST Appointment Mammography/DXA at [place] [phone] Edmund Truong MD [facility] DR HEMATOLOGY [place] [address] 03/07/2024 10:45 AM EST Laboratory Appointment Lab at [facility] Hematology Oncology [address] [place], [place] [phone] 03/07/2024 11:30 AM EST Office Visit Hematology and Oncology at [place] [phone] Bennett Turner, RN 03/07/2024 11:30 AM EST Office Visit Hematology and Oncology at [place] [phone] Edmund Truong MD [facility] [place] [address] 03/10/2024 8:15 AM EST Laboratory Appointment Lab at [facility] Hematology Oncology [address] [place], [place] [phone] 03/10/2024 8:30 AM EST Scheduled View Only Hematology and Oncology at [address] 03/10/2024 9:00 AM EST Office Visit Hematology and Oncology at [place] [address] Omid Degroot MD [facility] [place] [address] 03/10/2024 9:00 AM EST Office Visit Hematology and Oncology at [place] [phone] Bennett Turner, RN 03/25/2024 9:30 AM EST Tech Visit Vascular Lab at [place] [phone] Carlton Higgins, RVT 03/25/2024 10:15 AM EST Office Visit Vascular Surgery at [place] [phone] Tomy Raymond MD [facility] [place] [address] documented as of this encounter Procedures Procedure Name Priority Date/Time Associated Diagnosis Comments FILM LIBRARY STORAGE ONLY MR SHOULDER Routine 07/15/2011 1:10 PM EDT documented in this encounter Results * FILM LIBRARY- STORAGE ONLY MR SHOULDER (07/15/2011 1:10 PM EDT) 07/15/2011 1:10 PM EDT Narrative RAD - 09/30/2013 1:54 AM EDT This is a non-reportable exam. Procedure Note Kelvin Ribera - 09/30/2013 This is a non-reportable exam. Kaveh Winn MD [facility] FILM LIBRARY ORD ERABLES [facility] [address] [facility] [place] [address] documented in this encounter Visit Diagnoses Not on filedocumented in this encounter Care Teams Capacitor Inspector Relationship Specialty Start Date End Date Larisa Kinsey MD [address] [place] [address] PCP - General 08/01/11 07/15/17 documented as of this encounter
--- OUTSIDE RECORDS SUMMARY | 2024-02-29 15:54 | XMS_ITS | Encounter Summary ---
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 Sewer Name Role Phone Oneida Beltran APRN Primary Care Provider [phone] Reason for Referral * Diagnostic Test (Routine) - Closed Specialty Diagnoses / Procedures Referred By Contac t Referred To Contact Radiology Diagnoses Disorder of bone, unspecified Abnormal findings on diagnostic imaging of other specified body structures Procedures CT Guided Biopsy Bone (Extremities/Pelvis) IR All Biopsy Procedures Estrella Mckay APRN [address] [place] [address] [place] [address] Referral ID Status Reason Start Date Expiration Date V isits Requested Visits Authorized [id number] Closed Specialty Service Requested 09/16/2023 03/17/2025 1 1 Reason for Visit * Diagnostic Test (Routine) - Closed Specialty Diagnoses / Procedures Referred By Contac t Referred To Contact Radiology Diagnoses Disorder of bone, unspecified Abnormal findings on diagnostic imaging of other specified body structures Procedures CT Guided Biopsy Bone (Extremities/Pelvis) IR All Biopsy Procedures Estrella Mckay APRN [address] [place] [address] [place] [address] Referral ID Status Reason Start Date Expiration Date V isits Requested Visits Authorized [id number] Closed Specialty Service Requested 09/16/2023 03/17/2025 1 1 Encounter Details Date Type Department Care Team (Latest Contact Info) Description 10/15/2023 12:51 PM EDT - 10/15/2023 11:59 PM EDT Hospital [place] [phone] Estrella Mckay, [employer] [address] [place] [address] Pre-op testing; Back pain, unspecified back location, unspecified back pain laterality, unspecified chronicity; Disorder of bone, unspecified; Abnormal findings on diagnostic imaging of other specified body structures Discharge Disposition: Home Social History Tobacco Use Types Packs/Day Years Used Date Smoking Tobacco: Former Cigarettes 1 30 Q uit: 2012 Smokeless Tobacco: Never Tobacco Cessation:Counseling Given: Not Answered Comments:3/4TH PK A DAY Alcohol Use Standard Drinks/Week Comments No 0 (1 standard drink = 0.6 oz pur e alcohol) Sex and Gender Information Value Date Recorded Sex Assigned at Not on file Gender Identity Not on file Sexual Orientation Not on file documented as of this encounter Last Filed Vital Signs Vital Sign Reading Time Taken Comments Blood Pressure 107/52 10/15/2023 4:15 PM EDT Pulse 72 10/15/2023 3:40 PM EDT Temperature 36.4 ??C (97.6 ??F) 10/15/2023 3:53 PM ED T Respiratory Rate 18 10/15/2023 4:15 PM EDT Oxygen Saturation 92% 10/15/2023 4:15 PM EDT Inhaled Oxygen Concentration - - Weight - - Height - - Body Mass Index - - documented in this encounter Discharge Instructions * Discharge Instructions* Neo Fernández RN - 10/15/2023 3:39 PM EDT [facility] Vascular and Interventional Radiology Biopsy Discharge Instructions bone biopsy: call your doctor immediately if you develop a sudden onset of weakness, increased painor swelling at the biopsy site or heavy bleeding at the biopsy site. Activity And Diet: Go home and rest quietly for the remainder of the day. You may resume your normal activities tomorrow. Resume your usual diet after the procedure. Do not drive, sign any important/legal documents, or make any important decisions for 24 hours following sedation medications. When to call your healthcare provider: If you see any redness, swelling or drainage at the biopsy site. If you develop chills. If you have a fever greater than or equal to 101 degrees Fahrenheit. If you develop pain around the biopsy site. Bandage: Check the dressing/bandaid throughout the day for an increase in drainage. Keep the biopsy site dryfor 24 hours. Replace the bandaid as needed. You may shower 24 hours after the biopsy. Medication: DO NOT take aspirin-containing products, ibuprofen, or blood-thinning medication for the next 24 hours unless your clinician says you may do so. Generally you may use acetaminophen as needed for discomfort unless you have liver disease and are instructed not to take acetaminophen. Biopsy Results The results of your biopsy should be available within 5 business days and will be reported to you by your primary memory care program director or the clinician who ordered the biopsy. Please do not call us for results as we will not have them. If you have not been contacted by your clinician within 5 business days you should call that officefor further information. When to call the Interventional Radiology Department: Please call with any questions or concerns. If it is during regular office hours, please call [phone]. If it is after regular office hours, or on weekends or holidays, please call [phone] and ask to speak to the Optical Lathe Operator information support project manager for Interventional Radiology. You have received medication during your procedure to help lessen anxiety and keep you comfortable.These medications affect judgement and reaction time. We recommend that you do not drive, operate equipment, sign any important documents, or smoke unattended for 24 hours following your procedure. Because of the sedation, be careful on stairs, as you may be unsteady on your feet. You may resume your regular diet as tolerated. IV site -- slight redness, or tenderness is normal, you can use a warm compress. If tenderness and redness increases or foul drainage occurs, please contact your M. D. Revised 01/20/19 documented in this encounter Progress Notes * Catherine Daniel RN - 10/15/2023 11:59 PM EDT Follow up call completed for Ashley on 10/15. Patient states that they have no concerns or questions at this time and was encouraged to call IR Department should any question or concerns arise. * Neo Fernández RN - 10/15/2023 3:03 PM EDT [facility] N[facility] DATABASE Name: Ashley Kee Date of : 1960 AGE: 63 y.o. [address]: [address] [place] [address] (home) Mobile: No relevant phone numbers on file. Referring Provider: Estrella Mckay REASON FOR VISIT: Order Questions Answers Where will study be performed? [facility] Radiology [120] To be scheduled Next available after expected date Is the patient on anticoagulant / antiplatelet therapy ? No Please select where the lesion is located: Other (IR) Are you requesting a specific lesion for biopsy? Yes Please describe the lesion and specific location Iliac Crest Reason for exam and clinical history: Bone biopsy to evaluate for metastatic disease,See 08/19/23 CTCAP Assessment / Plan: Medications to stop: None. Prophylactic antibiotic: None. Planned positioning: Prone. Planned access site: Right or left posterior ilium - performing radiologist's choice. Image guidance plan: CT guided bone biopsy. Sedation plan: Moderate. Plan for specimen analysis: Surgical pathology per ordering provider. No data recorded Allergies Allergen Reactions Percocet [Oxycodone-Acetaminophen] Nausea And Vomiting Morphine Sulfate Nausea And Vomiting Nsaids (Non-Steroidal Anti-Inflammatory Drug) Hives Pertinent PMH: Patient Active Problem List Diagnosis Code Back pain M54.9 Right leg pain M79.604 Date/Procedure Meds Given/Comments 10/15/23 Bone marrow biopsy IV Fentanyl 100mcg, IV Versed 2 mg 1515 to procedure room CT5 via stretcher. Onto table prone. All monitors, O2, safety strap in place. Meds per protocol. Laboratory Results: documented in this encounter H&P Notes * Charissa Alcala MD - 10/15/2023 2:05 PM EDT INTERVENTIONAL RADIOLOGY FOCUSED H&P: Procedure: CT guided posterior left ilium bone biopsy The patient's history and physical exam have been reviewed and completed. There has been no interval change from that of the pre-operative history and physical exam done within the last 30 days. Physical Exam: Cardiovascular: Regular, Normal Pulmonary: Breath sounds clear to auscultation The planned procedure (and sedation plan if appropriate) , its benefits and risks, and alternativeswere discussed with the patient. The patient consented to the procedure. PRE-SEDATION ASSESSMENT: Sedation Plan: moderate (conscious sedation) ASA: 1: Normally healthy patient Mallampati: II: tonsillar pillars are blocked by the tongue Confirm NPO status: Yes. Last meal 8pm 10/14/2023 History of anesthetic complications: No Current medications reviewed: Yes Allergies reviewed: Yes. N/V with morphine and percocet. Alcohol/drug use: Social EtOH, no other Source Note - Nancy Cook PA - 09/17/2023 8:48 AM EDT Images from the original note were not included. MUSCULOSKELETAL RADIOLOGY PRE-PROCEDURE NOTE Name: Ashley Kee Date of : 1960 Age: 63 y.o. Referring Physician (if different): None Indication: Bone biopsy to evaluate for metastatic disease See 08/19/23 CT CAP Planned Procedure: CT guided bone biopsy of right or left posterior ilium. Chief Complaint/Diagnosis: 63yoF w/incidental finding of mottled appearance of axial skeleton on CT. Labs to date, including SPEP and UPEP, have been WNL. Pertinent Past Medical/Surgical History: Below plus COPD and aortobifemoral grafts. Patient Active Problem List Diagnosis Code Back pain M54.9 Right leg pain M79.604 Allergies Allergen Reactions Percocet [Oxycodone-Acetaminophen] Nausea And Vomiting Morphine Sulfate Nausea And Vomiting Nsaids (Non-Steroidal Anti-Inflammatory Drug) Hives No current outpatient medications on file prior to visit. No current facility-administered medications on file prior to visit. Pertinent ROS: as per HPI Pertinent Family History: non contributory Social History: Smoking: the patient is a former smoker who quit smoking 6-10 years ago. Etoh: Social BP: ()/() Labs: No results found for: WBC, ANC, HCT, PLATELET, INR, BUN, CREATININE Imaging: Trajectories approved by Dr. Ellen Ku. ASA: pending Assessment / Plan: Medications to stop: None. Prophylactic antibiotic: None. Planned positioning: Prone. Planned access site: Right or left posterior ilium - performing radiologist's choice. Image guidance plan: CT guided bone biopsy. Sedation plan: Moderate. Plan for specimen analysis: Surgical pathology per ordering provider. Patient reviewed with Dr. Ellen Ku. documented in this encounter Plan of Treatment Upcoming Encounters Date Type Department Care Team (Late st Contact Info) Description 03/02/2024 8:30 AM EST Office Visit Vascular Surgery at [place] [phone] Sarah Bah APRN [facility] [place] [address] 03/04/2024 7:00 AM EST Appointment Mammography/[place] [phone] Edmund Truong MD [facility] [address] [place] [address] 03/07/2024 10:45 AM EST Laboratory Appointment Lab at [facility] Hematology Oncology [address] [place] [phone] 03/07/2024 11:30 AM EST Office Visit Hematology [place] [phone] Bennett Turner RN 03/07/2024 11:30 AM EST Office Visit Hematology and Oncology at [place] [phone] Edmund Truong MD [facility] [address] [place] [address] 03/10/2024 8:15 AM EST Laboratory Appointment Lab at [facility] Hematology Oncology [address] [place] [phone] 03/10/2024 8:30 AM EST Scheduled View Only Hematology and Oncology at [place] [phone] 03/10/2024 9:00 AM EST Office Visit Hematology and Oncology at [place] [phone] Omid Degroot MD [facility] [place] [address] 03/10/2024 9:00 AM EST Office Visit Hematology and Oncology at [place] [phone] Bennett Turner RN 03/25/2024 9:30 AM EST Tech Visit Vascular Lab at [place] [phone] Carlton Higgins, RVT 03/25/2024 10:15 AM EST Office [place] [phone] Tomy Raymond MD [facility] [place] [address] documented as of this encounter Procedures Procedure Name Priority Date/Time Associated Diagnosis Comments CT GUIDED BIOPSY BONE(EXTREMITIES/PE LVIS) Routine 10/15/2023 3:53 PM EDT Disorder of bone, unspecified Abnormal findings on diagnostic imaging of other specified body structures SURGICAL PATHOLOGY REPORT Routine 10/15/2023 3:07 PM EDT SPECIMEN TO PATHOLOGY Routine 10/15/2023 3:07 PM EDT documented in this encounter Results * CT Guided Biopsy Bone (Extremities/Pelvis) (10/15/2023 3:53 PM EDT) WORKSTATION ID [id number] RAD Anatomical Region Laterality Modality Computed Tomogra phy Impressions 10/15/2023 4:05 PM EDT Impression: Successful CT-guided biopsy of posterior left ilium. Leather Stripping Machine Operator(s): Resident/Fellow: None Attending: Charissa Alcala MD I, Dr. Charissa Alcala, personally performed the entire interventional procedure. Thank you for letting us participate in the care of this patient. ??If you are a health care provider and have any questions regarding this report, please contact the number below. ??For patients who have questions please contact the health residential care officer that requested your imaging first. ? Electronically signed by: Charissa Alcala MD, [facility] ([phone]), at 10/15/2023 4:05 PM Narrative 10/15/2023 4:05 PM EDT RADIOLOGY PROCEDURE NOTE Procedure: CT-guided biopsy of posterior left ilium Indication for Procedure: Bone biopsy to evaluate for metastatic disease, See 08/19/23 CT CAP. Consent: After discussing the risks (including infection, hemorrhage, damage to surrounding structures, failure to obtain sample for lab analysis) and benefits, the patient provided written and verbal consent to the procedure. Method of Sedation: Moderate sedation with split doses of Versed and Fentanyl. Technique: Prior to beginning the procedure, a preprocedure pause for safety was performed. I was present during the interservice timeout as documented by the IR Nurse. The patient was positioned prone on the CT table. ??An initial non-contrast localizing CT scan was obtained. ??A site for biopsy was identified on the skin over the posterior left ilium with the assistance of the CT laser lights. ??The skin was marked, prepped, and local anesthesia provided with 1% lidocaine. Maximum sterile barrier technique was used throughout the procedure. ??An 11 gauge OnCExtole powered biopsy needle coaxial system was directed into the lesion with intermittent CT fluoroscopy. Core biopsies were obtained: ??3. The needle was removed. A sterile dressing was applied. A final noncontrast CT was performed. Medications: Versed: 2 mg IV Fentanyl: 100 mcg IV Lidocaine 1% subcutaneous: 4 ml Contrast: None EBL: <5 cc Complications: No immediate Specimens: 3 core bone samples, each approximately 1 cm, placed in formalin Findings: Pre-procedure CT showed diffusely permeative appearance of the skeleton without focal destructive lesion. Preserved alignment at the sacroiliac joints and lower lumbar spine. Diffuse atherosclerotic calcifications. Within the pelvis, no free fluid, adenopathy, solid or cystic soft tissue mass. Muscle is normal and symmetric. Intra-procedure CT showed the needle tip in the posterior left ilium. Final CT showed no hematoma or fracture. Small air and edema along the biopsy tract. The biopsy tunnel is seen within the posterior ilium. Procedure Note Charissa Alcala MD - 10/15/2023 RADIOLOGY PROCEDURE NOTE Procedure: CT-guided biopsy of posterior left ilium Indication for Procedure: Bone biopsy to evaluate for metastatic disease,See 08/19/23 CT CAP. Consent: After discussing the risks (including infection, hemorrhage,damage to surrounding structures, failure to obtain sample for lab analysis) andbenefits, the patient provided written and verbal consent to the procedure. Method of Sedation: Moderate sedation with split doses of Versed andFentanyl. Technique: Prior to beginning the procedure, a preprocedure pause forsafety was performed. I was present during the interservice timeout as documented bythe IR Nurse. The patient was positioned prone on the CT table. An initialnon-contrast localizing CT scan was obtained. A site for biopsy was identified on theskin over the posterior left ilium with the assistance of the CT laser lights.The skin was marked, prepped, and local anesthesia provided with 1% lidocaine. Maximum sterile barrier technique was used throughout the procedure. An11 gauge OnControl powered biopsy needle coaxial system was directed intothe lesion with intermittent CT fluoroscopy. Core biopsies were obtained: 3.The needle was removed. A sterile dressing was applied. A final noncontrast CTwas performed. Medications: Versed: 2 mg IV Fentanyl: 100 mcg IV Lidocaine 1% subcutaneous: 4 ml Contrast: None EBL: <5 cc Complications: No immediate Specimens: 3 core bone samples, each approximately 1 cm, placed informalin Findings: Pre-procedure CT showed diffusely permeative appearance of the skeletonwithout focal destructive lesion. Preserved alignment at the sacroiliac joints andlower lumbar spine. Diffuse atherosclerotic calcifications. Within the pelvis,no free fluid, adenopathy, solid or cystic soft tissue mass. Muscle is normaland symmetric. Intra-procedure CT showed the needle tip in the posterior left ilium. Final CT showed no hematoma or fracture. Small air and edema along thebiopsy tract. The biopsy tunnel is seen within the posterior ilium. IMPRESSION Impression: Successful CT-guided biopsy of posterior left ilium. Leather Stripping Machine Operator(s): Resident/Fellow: None Attending: Charissa Alcala MD I, Dr. Charissa Alcala, personally performed the entire interventional procedure. Thank you for letting us participate in the care of this patient. If youare a health care provider and have any questions regarding this report,please contact the number below. For patients who have questions please contactthe health residential care officer that requested your imaging first. Electronically signed by: Charissa Alcala MD, [facility]([phone]), at 10/15/2023 4:05 PM Estrella Mckay APRN [facility] CT ORDERABLES * (ABNORMAL) Surgical Pathology Report (10/15/2023 3:07 PM EDT) Final Diagnosis [id number] ? Location: [facility] The signing pathologist has (i) examined the relevant preparation(s) for the specimen(s) and (ii) rendered or confirmed the diagnosis(es). . ?Surgical Pathology DIAGNOSIS A - Bone, left posterior ilium, biopsy: - Systemic mastocytosis (see discussion) Electronically signed by: ?Spencer VELEZ, PhD, Dimitrios Awad Verified: ??10/22/2023 11:53 ??Dermatopathologist , Bone & Soft Tissue Pathologist Performed at: ??-[facility] Dept. of Pathology, [place] [address] Swatch Folder: Alexander Gandara MD, AP, ??CLIA Certificate: [id number] DISCUSSION The biopsy specimen demonstrates histopathologic and [...] diagnosis. THIS RESULT REQUIRES PHYSICIAN/A.P.P. FOLLOW UP ADDITIONAL STUDIES Immunohistochemistry Studies: Formalin-fixed, paraffin-embedded tissue sections are studied using the polymer technique with appropriate positive and negative controls. ?These IHC studies provide the pathologist with adjunctive diagnostic information. Antibody specificity has been verified by testing antibodies on a series of in-house tissues with known immunohistochemical performance characteristics. The clinical interpretation of any antibody positive staining or its absence is evaluated within the context of clinical presentation, morphology, histopathological criteria and other diagnostic tests. Block ? Antibody ?Result (Positive/Negative) A1 ? CK [id number] ?Negative ? SOX10 ?? Negative ? CD3 ?? Scattered T cells ? CD20 ?? Scattered B cells ? Homer C Jones ?? Subset plasma cells (polytypic) ? Lambda ?? Subset plasma cells (polytypic) ? CD117 ?? Positive in mast cell aggregates ? CD25 ?? Positive in mast cell aggregates ? PU.1 ?? Highlights a subset of marrow elements ? SMA ?? Highlights fibrosis A2 ? [id number] ?? Negative SPECIMEN(S) SUBMITTED A - Left Posterior Ilium, biopsy (Multiple) . CLINICAL INFORMATION Bone biopsy to evaluate for metastatic disease SPECIMEN PROCESSING A - Labeled/Fixative: Left posterior ilium, formalin. Quantity/Size: Five, ranging from 0.4 to 0.9 x 0.2 cm Tissue Description: Meneses-white to red-brown bone needle core biopsies. Sections/Processing: Blocks submitted for decalcification in EDTA: A1, A2. Entirely submitted in 2 cassettes labeled A1-A2. ??shb(A) 10/22/2023 11:53 AM EDT [facility] BONE STRUCTURE / Unknown 10/15/2023 3:07 PM EDT 10/15/2023 3:07 PM EDT Charissa Alcala MD PATHOLOGY/CYTOLOGY ORDERABLES Performing Organization Address [facility] Co de Phone Number [facility] [place] [address] * Specimen to Pathology (10/15/2023 3:07 PM EDT) AP Specimen 10/15/2023 3:07 PM EDT 10/15/2023 3:07 PM EDT Narrative [facility] - 10/15/2023 3:07 PM EDT Specimen requisition ordered. ??Separate Pathology report to follow Charissa Alcala MD PATHOLOGY/CYTOLOGY ORDERABLES Performing Organization Address [facility] Co de Phone Number [facility] [place] [address] * APTT (10/15/2023 12:39 PM EDT) Partial Thromboplastin Time 32 25 - 37 sec [facility] Comment: The PTT is NOT appropriate for heparin monitoring. Use the Anti-Xa level for heparin monitoring (HEP UFH) or LMWH monitoring (HEP LMW). A PTT less than 37 seconds generally indicates adequate hemostasis. Blood 10/15/2023 12:3 9 PM EDT 10/15/2023 12:53 PM EDT Narrative Resulting Agency Comment Spec In Lab Estrella Mckay APRN HEMATOLOGY ORDERABLE S Performing Organization Address [facility] de Phone Number [facility] [place] [address] * Prothrombin Time (10/15/2023 12:39 PM EDT) Prothrombin Time 11.7 9.4 - 12.5 sec [facility] International Normalization Ratio 1.0 [facility] Comment: An INR <2.0 indicates adequate procoagulant activity for hemostasis in most patients without underlying bleeding disorders, though the INR may not adequately reflect hemostatic capacity in patients with liver disease and synthetic impairment. The recommended target INR range for therapeutic anticoagulation is 2.0 ? 3.0 for most applications, though lower and higher ranges may be appropriate depending on clinical circumstances. Blood 10/15/2023 12:3 9 PM EDT 10/15/2023 12:53 PM EDT Narrative Resulting Agency Comment Spec In Lab Estrella Mckay APRN HEMATOLOGY ORDERABLE S Performing Organization Address [facility] de Phone Number [facility] [place] [address] * Platelet count (10/15/2023 12:39 PM EDT) Platelet 313 145 - 357 x10(3)/mc L [facility] Immature Plt % 1.0 0.0 - 7.4 % [facility] Comment: Limitation of the Immature Platelet Fraction (IPF)-May be less reliable when the platelet count is less than 30h235/uL due to statistical imprecision. The IPF value provides an assessment of the Bone Marrow production status. ??It is useful in differentiating Thrombocytopenia caused by platelet destruction/consumption versus decreased production. It also helps to determine the imminent release of platelets and can be therefore a helpful parameter in Chemotherapy and Bone marrow transplant patients. ELEVATED IPF value: ?? When the bone marrow is in a state of over production such as when increased destruction and consumption are the underlying issue. ?? When the marrow is recovering post chemotherapy or bone marrow transplant. LOW to NORMAL IPF value: ?? When the bone marrow in not responding and is in a decreased state of production. References: [employer] The Clinical Value of the Immature Platelet Fraction (IPF) in Cell Recovery Document Number [id number] 09/2010 [employer] The Role of the Immature Platelet Fraction (IPF) in the Differential Diagnosis of Thrombocytopenia, Document [id number] V008/15/13 P008/17 Blood 10/15/2023 12:3 9 PM EDT 10/15/2023 12:53 PM EDT Narrative Resulting Agency Comment Spec In Lab Estrella Mckay APRN HEMATOLOGY ORDERABLE S [facility] [place] [id number] documented in this encounter Visit Diagnoses Diagnosis Pre-op testing Preoperative examination, unspecified Back pain, unspecified back location, unspecified back pain laterality, unspecified chronicity Disorder of bone, unspecified Abnormal findings on diagnostic imaging of other specified body structures documented in this encounter Administered Medications Inactive Administered Medications - up to 3 most recent administrations Medication Order MAR Action Action Date Dose Rate Site fentaNYL (pf) (50 mcg/mL) multi-dose injection 25-50 mcg 25-50 mcg, Intravenous, EVERY 3 MIN PRN, Starting on Opal 10/15/23 at 1415, Until Opal 10/15/23 at 1626, Pain, per unit protocol, For use in Interventional Radiology (IR) only for procedural sedation with direct provider supervision and verbal order. - Start dose: 50 mcg (reduce dose to 25 mcg if history of sedation sensitivity). - Titration dose: 25-50 mcg IV, (based on patient response) every 3 minutes PRN to maintain procedural pain less than 2 per Pain Scale. Maximum dose: 50 mcg/dose, 250 mcg/hour, Angio/IR (Intra-Procedure), Routine Given 10/15/2023 3:34 PM EDT 50 mcg Given 10/15/2023 3:24 PM EDT 25 mcg Given 10/15/2023 3:21 PM EDT 25 mcg lidocaine (Xylocaine) 1% (10 mg/mL) injection 10 mg 10 mg, Subcutaneous, ONCE, 1 dose, On Opal 7 at 1445, For use in Interventional Radiology (IR) only for procedure with direct provider supervision and verbal order., Angio/IR (Intra-Procedure), Routine Given 10/15/2023 3:33 PM EDT 10 mg midazolam (pf) (Versed) (1 mg/mL) multi-dose injection 0.5-1 mg 0.5-1 mg, Intravenous, EVERY 3 MIN PRN, Starting on Opal 10/15/23 at 1415, Until Opal 10/15/23 at 1626, Sedation, For use in Interventional Radiology (IR) only for procedural sedation with direct provider supervision and verbal order. - Start dose: 1 mg (Reduce dose to 0.5 mg if history of sedation sensitivity). - Titration dose: 0.5 mg - 1 mg (based on patient response) every 3 minutes PRN to obtain RASS score of -3. Maximum dose: 1 mg/dose, 5 mg/hour., Angio/IR (Intra-Procedure), Routine Given 10/15/2023 3:34 PM EDT 1 mg Given 10/15/2023 3:24 PM EDT 0.5 mg Given 10/15/2023 3:21 PM EDT 0.5 mg ondansetron (pf) (Zofran) (2 mg/mL) injection 4 mg 4 mg, Intravenous, ONCE PRN, 1 dose, Starting on Opal 7 at 1415, Until Opal 10/15/23 at 1510, Nausea, May repeat 4 mg dose 15 minutes after first dose, for unrelieved nausea, for a total of 2 doses., Angio/IR (Intra-Procedure) Given 10/15/2023 3:10 PM EDT 4 mg sodium chloride 0.9 % (flush) (BD PosiFlush Normal Saline 0.9) flush 5 mL 5 mL, Intravenous, 2 TIMES DAILY, First dose on Opal 10/15/23 at 1445, Until Discontinued, Angio/IR (Day of Procedure), Routine Given 10/15/2023 2:45 PM EDT 5 mLs documented in this encounter Care Teams Upholstery Sewer Relationship Specialty Start Date End Date Oneida Beltran APRN PCP - General Family Medicine 07/16/17 12/13/23 documented as of this encounter
--- OUTSIDE RECORDS SUMMARY | 2024-02-29 15:54 | XMS_ITS | Encounter Summary ---
Author Organization [facility] [place] [address] Care Team Providers Care Mine Wedge Sawyer Name Role Phone Umerdean Oneida Dean VIRGEN Primary Care Provider [phone] Encounter Details Date Type Department Care Team (Latest Contact Info) Description 10/15/2023 12:45 PM EDT Laboratory Appointment Lab [address] [place] [address] Pre-op testing; Back pain, unspecified back location, unspecified back pain laterality, unspecified chronicity Social History Tobacco Use Types Packs/Day Years [...] AM EST Office Visit [place] [address] Sarah Bah RESTAURANT ASSISTANT [facility] [place] [address] 03/04/2024 7:00 AM EST Appointment Mammography/[place] [address] Edmund Truong MD [facility] [address] [place] [address] 03/07/2024 10:45 AM EST Laboratory Appointment Lab at [facility] Hematology Oncology [address] [place] [address] 03/07/2024 11:30 AM EST Office Visit Hematology and Oncology at [place] [address] Bennett Turner, RN 03/07/2024 11:30 AM EST Office Visit Hematology and Oncology at [place] [address] Edmund Truong MD [facility] [address] [place] [address] 03/10/2024 8:15 AM EST Laboratory Appointment Lab at [facility] Hematology Oncology [address] [place] [address] 03/10/2024 8:30 AM EST Scheduled View Only Hematology and Oncology at [place] [address] 03/10/2024 9:00 AM EST Office Visit Hematology and Oncology at [place] [address] Omid Degroot MD [facility] [address] 03/10/2024 9:00 AM EST Office Visit Hematology and Oncology at [place] [address] Bennett Turner, RN 03/25/2024 9:30 AM EST Tech Visit Vascular Lab at [address] Carlton Higgins, RVT 03/25/2024 10:15 AM EST Office Visit Vascular Surgery at [place] [phone] Tomy Raymond MD [facility] [place] [address] documented as of this encounter Procedures Procedure Name Priority Date/Time Associated Diagnosis Comments HC PARTIAL THROMBOPLASTIN TIME STAT 10/15/2023 12:39 PM EDT Pre-op testing Back pain, unspecified back location, unspecified back pain laterality, unspecified chronicity PROTHROMBIN TIME STAT 10/15/2023 12:3 9 PM EDT Pre-op testing Back pain, unspecified back location, unspecified back pain laterality, unspecified chronicity HC PLATELET COUNT STAT 10/15/2023 12: 39 PM EDT Pre-op testing Back pain, unspecified back location, unspecified back pain laterality, unspecified chronicity documented in this encounter Results * Platelet count (10/15/2023 12:39 PM EDT) Platelet 313 145 - 357 x10(3)/mc L [facility] Immature Plt % 1.0 0.0 - 7.4 % [facility] Comment: Limitation of the Immature Platelet Fraction (IPF)-May be less reliable when the platelet count is less than 49f814/uL due to statistical imprecision. The IPF value [...] in a decreased state of production. References: [employer] The Clinical Value of the Immature Platelet Fraction (IPF) in Cell Recovery Document Number [id number] 09/2010 [employer] The Role of the Immature Platelet Fraction (IPF) in the Differential Diagnosis of Thrombocytopenia, Document [id number] V05 P008/17 Blood 10/15/2023 12:3 9 PM EDT 10/15/2023 12:53 PM EDT Narrative Resulting Agency Comment Spec In Lab Estrella Mckay APRN HEMATOLOGY ORDERABLE S Performing Organization Address [facility] Co de Phone Number [facility] [place] [phone] * Prothrombin Time (10/15/2023 12:39 PM EDT) Prothrombin Time 11.7 9.4 - 12.5 sec [facility] International Normalization Ratio 1.0 [facility] Comment: An INR <2.0 indicates [...] APRN HEMATOLOGY ORDERABLE S Performing Organization Address [facility] de Phone Number [facility] [place] [address] * APTT (10/15/2023 12:39 PM EDT) Partial Thromboplastin Time 32 25 - 37 sec [facility] Comment: The PTT is NOT appropriate for heparin monitoring. Use the Anti-Xa level for heparin monitoring (HEP UFH) or LMWH monitoring (HEP LMW). A PTT less than 37 seconds generally indicates adequate hemostasis. Blood 10/15/2023 12:3 9 PM EDT 10/15/2023 12:53 PM EDT Narrative Resulting Agency Comment Spec In Lab Estrella Mckay RESTAURANT ASSISTANT HEMATOLOGY ORDERABLE S [facility] [place] [address] documented in this encounter Visit Diagnoses Diagnosis Pre-op testing Preoperative examination, unspecified Back pain, unspecified back location, unspecified back pain laterality, unspecified chronicity documented in this encounter Care Teams Mine Wedge Sawyer Relationship Specialty Start Date End Date Oneida Beltran APRN PCP - General Family Medicine 07/16/17 12/13/23 documented as of this encounter
--- OUTSIDE RECORDS SUMMARY | 2024-02-29 15:54 | XMS_ITS | Encounter Summary ---
[place] [address] Care Team Providers Care Redevelopment Specialist Name Role Phone Estrella Mckay APRN Primary Care Provider [phone] Reason for Visit * Reason Comments Advice Only * Consultation (Routine) - Closed Specialty Diagnoses / Procedures Referred By Greg t Referred To Contact Hematology and Oncology Diagnoses Systemic mastocytosis Estrella Mckay APRN [address] [place] [address] [facility] [address] [place] [address] Referral ID Status Reason Start Date Expiration Date V isits Requested Visits Authorized [id number] Closed Consult, Test & Treat PCP Updated and/or Approved 10/23/2023 10/22/2024 1 1 Encounter Details Date Type Department Care Team (Late st Contact Info) Description 11/25/2023 8:00 AM EDT Office Visit Hematology [place] [address] Omid Sierra MD [facility] [place] [address] Systemic mastocytosis; Elevated hemoglobin Social History Tobacco Use Types Packs/Day Years [...] Sign Reading Time Taken Comments Blood Pressure 119/59 11/25/2023 7:40 AM EDT Pulse 84 11/25/2023 7:40 AM EDT Temperature 37 ??C (98.6 ??F) 11/25/2023 7:40 AM EDT Respiratory Rate 16 11/25/2023 7:40 AM EDT Oxygen Saturation 94% 11/25/2023 7:40 AM EDT Inhaled Oxygen Concentration - - Weight 55 kg (121 lb 4.1 oz) 11/25/2023 7:40 AM EDT Height 162.6 cm (5' 4.02) 11/25/2023 7:40 AM ED T Body Mass Index 20.8 11/25/2023 7:40 AM EDT documented in this encounter Progress Notes * Omid Sierra MD - 11/25/2023 8:00 AM EDT Images from the original note were not included. HEMATOLOGY CONSULTATION VISIT NOTE DATE OF VISIT : 11/27/23 REFERRING PROVIDER: Omid Sierra Reason for Visit: Bone Marrow Biopsy Showing Systemic Mastocytosis HPI Ashley Kee is a [...] the last year. 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 She can [...] disease. This involves all bones within the [id number] of the study. This has significantly progressed when compared to prior CT scan of 2016 Bone biopsy was done under CT guidance on 10/15/2023 revealing the results summarized separately below that has prompted this referral. Problem List Patient Active Problem List Diagnosis Code Back pain M54.9 Right leg pain M79.604 Thoracic Outlet Syndrome Surgical Hx Past Surgical History: Procedure Laterality Date CT GUIDED BIOPSY BONE(EXTREMITIES/PELVIS) 10/15/2023 CT Guided Biopsy Bone (Extremities/Pelvis) 10/15/2023 Charissa Alcala MD [facility] RAD CT SCAN Colonoscopies Bilateral ileofemoral bypass Cholecystectomy Hysterectomy Right shoulder surgeries x 2 (once had rib removed) Medications I reviewed the medication list in the eDH with the pt No current outpatient medications Allergies/ADR I reviewed the allergies listed in the eDH with the pt Allergies Allergen Reactions Percocet [Oxycodone-Acetaminophen] Nausea And Vomiting Ciprofloxacin Other (See Comments) Burning with IV administration, needed benadryl Morphine Sulfate Nausea And Vomiting Nsaids (Non-Steroidal Anti-Inflammatory Drug) Hives Social Hx Social History Socioeconomic History Marital status: Spouse name: None Number of children: None Years of education: None Highest education level: None Occupational History None Tobacco Use Smoking status: Former Current packs/day: 0.00 Average packs/day: 1 pack/day for 30.0 years (30.0 ttl pk-yrs) Types: Cigarettes Quit date: 2012 Years since quittin.6 Smokeless tobacco: Never Tobacco comments: PK A DAY Substance and Sexual Activity Alcohol use: No Drug use: No Sexual activity: None Other Topics Concern None Social History Narrative None Social Determinants of Health Financial Resource Strain: Not on file Food Insecurity: Not on file Transportation Needs: Not on file Physical Activity: Not on file Intimate Partner Violence: Not on file Housing Stability: Not on file 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 Physical Exam Vitals Blood pressure 119/59, pulse 84, temperature 37 ??C (98.6 ??F), temperature source Temporal, resp. rate 16, height 162.6 cm (5' 4.02), weight 55 kg (121 lb 4.1 oz), SpO2 94%. Body mass index is 20.8 kg/m??. Body surface area is 1.58 meters squared. ECOG - ecog ps: 1 [...] Recent Results (from the past 336 hour(s)) CBC (with Diff) Collection Time: 11/25/23 7:19 AM Result Value Ref Range White Blood Cell 8.69 4.00 - 9.50 x10(3)/mcL Red Blood Cell 5.27 (H) 4.00 - 5.21 x10(6)/mcL Hemoglobin 16.1 (H) 11.7 - 15.5 g/dL Hematocrit 47.8 (H) 35.7 - 45.8 % Mean Cell Volume 90.7 82.6 - 94.4 fL Mean Cell Hemoglobin 30.6 27.1 - 32.0 pg Mean Cell Hemoglobin Concentration 33.7 31.7 - 35.0 g/dL Platelet 272 145 - 357 x10(3)/mcL Mean Platelet Volume 8.2 7.6 - 12.9 fL RDW Standard Deviation 44.8 37.0 - 46.0 fL RDW coefficient of variation 13.2 11.5 - 14.1 % NRBC% auto 0.0 % NRBC Absolute 0.00 0.00 - 0.00 x10(3)/mcL Neutrophil % 54.1 % Neutrophil Absolute 4.69 1.70 - 6.10 x10(3)/mcL Lymph % 36.7 % Lymph Absolute 3.19 0.90 - 3.20 x10(3)/mcL Monocyte % 7.7 % Monocyte Absolute 0.67 0.30 - 0.90 x10(3)/mcL Eos % 0.9 % Eos Absolute 0.08 0.00 - 0.40 x10(3)/mcL Basophil % 0.3 % Baso Absolute 0.03 0.00 - 0.10 x10(3)/mcL Immature Gran % 0.3 % Immature Gran Absolute 0.03 0.00 - 0.04 x10(3)/mcL Comprehensive metabolic panel Collection Time: 11/25/23 7:19 AM Result Value Ref Range Glucose 83 65 - 199 mg/dL Blood Urea Nitrogen 7 (L) 8 - 18 mg/dL Creatinine 0.72 0.70 - 1.20 mg/dL Sodium 140 135 - 145 mMol/L Potassium 4.4 3.5 - 5.0 mMol/L Chloride 104 98 - 107 mMol/L Carbon Dioxide 23 22 - 31 mMol/L Anion Gap 13 5 - 15 mMol/L Calcium 9.9 8.5 - 10.5 mg/dL Protein, Total 7.3 6.1 - 8.0 g/dL Albumin 4.4 3.2 - 5.2 g/dL Aspartate Aminotransferase 16 <=30 unit/L Alanine Aminotransferase 14 0 - 30 unit/L Alkaline Phosphatase 104 35 - 105 unit/L Bilirubin, Total <0.2 <=1.3 mg/dL Est Glomerular Filtration Rate - Female 94 mL/min/1.73 m?? Fasting Status No Lactate Dehydrogenase Collection Time: 11/25/23 7:19 AM Result Value Ref Range Lactate Dehydrogenase 186 110 - 220 unit/L Gold Tube HOLD Collection Time: 11/25/23 7:19 AM Result Value Ref Range Gold Hold Hold for Add-on Blue Tube HOLD Collection Time: 11/25/23 7:19 AM Result Value Ref Range Blue Hold Hold for Add-on Lavender Tube HOLD Collection Time: 11/25/23 7:19 AM Result Value Ref Range Lavender Hold Hold for Add-on Tryptase Collection Time: 11/25/23 7:19 AM Result Value Ref Range Tryptase 170.0 (H) <=8.4 ng/ml SPEP 06/24/2023 - No monoclonal proteins identified (available care everywhere) Pathology Bone Biopsy 10/15/2023 DIAGNOSIS A - Bone, left posterior ilium, biopsy: - Systemic mastocytosis (see discussion) Electronically signed by: Spencer VELEZ, PhD, Dimitrios Awad Verified: 10/22/2023 11:53 Dermatopathologist, Bone & Soft Tissue Pathologist Performed at: -[facility] [place] [place], [place] [address] Jailkeeper: Alexander Gandara MD, FCAP, [place] Certificate: [id number] DISCUSSION The biopsy specimen demonstrates histopathologic and [...] pattern of skeleton concerning for myelodysplastic disease The WHO diagnostic criteria for systemic mastocytosis requires satisfaction of the major criteriaonand 1 minor criterion or at least 3 minor criteria. The major criterion is demonstration of multifocal, dense infiltrates of mast cells [...] mutation at codon 816 of KIT in bonemarrow, blood, or other extracutaneous organ. 3) Mast cells in bone marrow, blood, or other extracut aneous organ express CD2 and/or CD25 in addition to normal mast cell markers. 4) Serum total tryptase persistently exceeds 20 ng/mL (unless there is an associated clonal myeloid disorder, in which case this parameter is not valid). [Blood (2013) 121 (16): 6939-3704.] It appears that this patient's biopsy has satisfied at least minor criteria #3 and I am unclear whether it has satisfy the major criterion based on report, specifically whether enough mast cells and aggregates were detected to meet the diagnostic criteria. I will reach out to our hematopathology group, who had consulted on the initial biopsy report, to obtain more detailed information and to obtain more information in general about the biopsy. I am less clear to what degree of bone marrow was evaluated directly. There are no signs or symptoms or lab findings to suggest that she may have systemic mastocytosis with associated hematological neoplasm, but given her borderline polycythemia, I have sent off a JAK2 panel. I have also added a tryptase as a baseline. I do not have imaging reports from the CT chest abdomen and pelvis but I do not appreciate a history of hepatosplenomegaly nor was it reported to me in the summary of the referring documentation. Labs today showed no cytopenias, if anything a very borderline polycythemia that may be secondary in the setting of the patient's smoking history. She has no symptoms of sleep apnea. Revision: If we take the biopsy to satisfy criteria for systemic mastocytosis, my impression is that her case is indolent/smoldering based on her clinical presentation. It is very possible that her GI symptoms may be a manifestation of mastocytosis. I am less clear whether the fatigue that she is experiencing would be related to this as well. I am concerned, however, that given the elevated tryptase that returned after her visit that, if not due to another myeloid process, combined with possible C findings of osteolytic lesions on past imaging (that we need to confirm) that she could actuallymeet diagnosis for aggressive disease. The treatment of indolent mastocytosis generally involves antihistamines. Her primary symptoms, if she has any, appear to be gastrointestinal related. I suggested an H2 antagonist such as famotidine in the first line. At this point she is going to consider it but prefers to take a minimalistic route, avoiding medications, which I think is also reasonable. Where she did have any cutaneous manifestations I would recommend consideration of an H1 antagonist such as cetirizine 10 mg daily to start. It is possible that she has osteoporosis as well I did not see a dedicated DEXA scan and this can be seen in general but also in patients with systemic mastocytosis. I would recommend obtaining a DEXA scan as well. I am unclear, however, what the exact correlates to the bone findings described in the most recent CT is and whether a diagnosis of systemic mastocytosis alone would have sufficient explanatory adequacy for this. I will be discussing this further with our hematopathologist. I discussed that it may be most reasonable to start following annually at this point as her condition appears to be indolent, but I am still in the information-gathering stage and results of further discussions with our hematopathology group and results of testing that we have sent off today may joan gundersone my recommendations for follow-up. I reviewed in detail the possible risk with selective reactions that can be associated with systemic mastocytosis, encouraged her to maintain a very low threshold to seek medical attention and explained her diagnosis to endocrine providers as this may guide future management. She has absolutely no history of anaphylaxis right now this encouraging. Should our review of the pathology confirmed systemic mastocytosis, especially given she does not have any cutaneous involvement, I would strongly encourage prescription of an EpiPen, training of itsuse, as well as other rescue medications such as Benadryl and steroids Should she ever require surgery, I would recommend multidisciplinary review and avoidance of high risk agents for anesthesia. There is no clear evidence at this point to favor a cytoreductive versus investigational strategy as opposed to observation I recommend observation at this point given her low symptom burden. We can always reconsider this in the future. Summary of recommendations - Recommend DEXA scan ordered by PCP and done locally if patient prefers - Tryptase and MPN panel ordered and pending - Will review case with hematopathology here when possible - If meets criteria for Systemic Mastocytosis recommend the following: - Epi-Pen prescription and instruction - Epi-Pen should be kept current and taken at all times - Rescue kit with benadryl 25 mg (available OTC) - Consider famotidine 10 mg BID for GI symptoms - Consider cetirizine 10 mg QD for headaches or cutaneous symptoms - Obtain imaging records RTC TBD I reviewed my impression and recommendations with Ashley Kee and answered all the questions.. Ptagreed with the plan. Thank you for inviting us to participate in the care of this patient; please don't hesitate to contact me if you'd like to discuss this patient's situation further. Omid Sierra MD Section of Hematology Decorator Consultantbottle machine operator [facility] Greater than 80 minutes were spent on date of visit, including non-face to face time. CC: Oneida Beltran, Omid Loredo Patient consents to use of [facility] portal for communication of results. This note was completed using [employer] Dictation technology. Please reach out if there are significant errors in manufacturing director that require clarification on my part. An addendum will be made to this note as necessary once pending labs have resulted. Post-Visit Addendum 11/27/2023 - Tryptase returned markedly elevated at 170. At this degree of elevation, I am concerned that if imaging findings do indeed represent osteolytic lesions, meeting C criteria which, in setting of confirmed SM, would suggest more aggressive disease - I am less clear bone biopsy included examination of marrow. As of today, I'm still awaiting response from hematopathology. As tryptase can be elevated in myeloid disorders and has less utility here, despite relatively normal CBC, I would be strongly inclined to pursue bone marrow aspiration and biopsy. - Called patient to review results, reached , left message, and will send message on patient portal. - Will likely need to pursue bone marrow biopsy and move up visit based on results. Post-Visit Addendum 12/03/2023 - Still awaiting response from hematopathology - For seemingly disproportinate tryptase, consideration of SM-CHANDAN is higher. Given doubt that we have sufficient bone marrow detail from bone biopsy, I would move forward with scheduling bone marrow.I discussed this with patient who was strongly in agreement of pursuing bone marrow. We will work to schedule this. - Follow-up will be with me 2-3 weeks after BmBx results. Post-Visit Addendum 12/18/2023 - BMBx showing systemic mastocytosis, as expected. Will be reviewing case at BmBx conference. Additional testing to confirm no SM-CHANDAN - Discussed results with pt. In meantime, I'd like to ensure she has EpiPen at the least, which shedoes not. We will send Rx over. I've asked her to ensure pharmacy gives her use instructions., documented in this encounter Miscellaneous Notes * Addendum Note - Omid Sierra MD - 11/25/2023 8:00 AM EDTAddended by: OMID SIERRA on: 12/03/2023 12:27 PM Modules accepted: Orders * Addendum Note - Omid Sierra MD - 11/25/2023 8:00 AM EDTAddended by: OMID SIERRA on: 12/18/2023 10:27 AM Modules accepted: Orders documented in this encounter Plan of Treatment Upcoming Encounters Date Type Department Care Team (Late st Contact Info) Description 03/02/2024 8:30 AM EST Office [place] [address] Sarah Bah APRN [facility] [address] [place] [address] 03/04/2024 7:00 AM EST Appointment Mammography/[place] [phone] Edmund Truong MD [facility] DR HEMATOLOGY [place] [address] 03/07/2024 10:45 AM EST Laboratory Appointment [place] at [facility] [place] [address] [place] [phone] 03/07/2024 11:30 AM EST Office Visit H[place]ology [place] [address] Bennett Turner RN 03/07/2024 11:30 AM EST Office Visit Hematology [place] [address] Edmund Truong MD [facility] [address] HEMATOLOGY [place] [address] 03/10/2024 8:15 AM EST Laboratory Appointment Lab at [facility] [place] [place] [address] [place] [phone] 03/10/2024 8:30 AM EST Scheduled View Only Hematology [place] [address] 03/10/2024 9:00 AM EST Office Visit Hematology and Oncology at [place] [phone] Omid Sierra MD [facility] [place] [address] 03/10/2024 9:00 AM EST Office Visit Hematology [place] [phone] Bennett Turner, RN 03/25/2024 9:30 AM EST Tech Visit [place] [phone] Carlton Higgins, RVT 03/25/2024 10:15 AM EST Office [place] [phone] Tomy Raymond MD [facility] [address] [place] [address] documented as of this encounter Procedures Procedure Name Priority Date/Time Associated Diagnosis Comments JAK2, CALR, AND MPL MUTATION ANALYSIS Routine 11/25/2023 9:48 AM EDT Systemic mastocytosis Elevated hemoglobin documented in this encounter Results * JAK2, CALR, and MPL Mutation Analysis (11/25/2023 9:48 AM EDT) NGS Report Status Normal 12/02/2023 12:39 AM EDT [facility]OR[facility] Blood VENOUS BLOOD SPECIMEN / Unknown Venipuncture / Unknown 11/25/2023 9:48 AM EDT 11/25/2023 9:48 AM EDT Omid Sierra MD MOLECULAR ORDERABLE S [facility] [place] [address] * (ABNORMAL) Tryptase (11/25/2023 7:19 AM EDT) Tryptase 170.0(H) <=8.4 ng/ml 11/26/2023 1:57 PM EDT [facility] Blood VENOUS BLOOD SPECIMEN / Unknown Venipuncture / Unknown 11/25/2023 7:19 AM EDT 11/25/2023 7:19 AM EDT Omid Sierra MD CHEMISTRY ORDERABLE S Performing Organization Address [facility] Co de Phone Number [facility] [place] [address] * Lavender Tube HOLD (11/25/2023 7:19 AM EDT) Lavender Hold Hold for Add-on 11/25/2023 9:01 AM EDT [facility] Blood VENOUS BLOOD SPECIMEN / Unknown Venipuncture / Unknown 11/25/2023 7:19 AM EDT 11/25/2023 7:19 AM EDT Omid Sierra MD HEMATOLOGY ORDERABL ES Performing Organization Address [facility] Co de Phone Number [facility] [place] [address] * Blue Tube HOLD (11/25/2023 7:19 AM EDT) Blue Hold Hold for Add-on 11/25/2023 9:01 AM EDT [facility] Blood VENOUS BLOOD SPECIMEN / Unknown Venipuncture / Unknown 11/25/2023 7:19 AM EDT 11/25/2023 7:19 AM EDT Omid Sierra MD HEMATOLOGY ORDERABL ES Performing Organization Address City/[facility] Co de Phone Number [facility] [place] [address] * Gold Tube HOLD (11/25/2023 7:19 AM EDT) Pathologist [facility] Gold Hold Hold for Add-on 11/25/2023 9:01 AM EDT [facility] Blood VENOUS BLOOD SPECIMEN / Unknown Venipuncture / Unknown 11/25/2023 7:19 AM EDT 11/25/2023 7:19 AM EDT Omid Sierra MD CHEMISTRY ORDERABLE S Performing Organization Address City/[facility]/ZIP Co de Phone Number [facility] [place] [address] * Lactate Dehydrogenase (11/25/2023 7:19 AM EDT) [facility] Lactate Dehydrogenase 186 110 - 220 unit/L 11/25/2023 7:54 AM EDT [facility] Blood VENOUS BLOOD SPECIMEN / Unknown Venipuncture / Unknown 11/25/2023 7:19 AM EDT 11/25/2023 7:19 AM EDT Omid Sierra MD CHEMISTRY ORDERABLE S Performing Organization Address City/[facility]/ZIP Co de Phone Number [facility] [place] [address] * (ABNORMAL) Comprehensive metabolic panel (11/25/2023 7:19 AM EDT) [facility] Glucose 83 65 - 199 mg/dL 11/25/2023 7:54 AM EDT [facility] Comment:Glucose Concentratio n >=200 mg/dL plus symptoms is consistent with Diabetes Mellitus. Blood Urea Nitrogen 7(L) 8 - 18 mg/dL 11/25/2023 7:54 AM EDT [facility] Creatinine 0.72 0.70 - 1.20 mg/dL 11/25/2023 7:54 AM EDT [facility] Sodium 140 135 - 145 mMol/L 11/25/2023 7:54 AM EDT [facility] Potassium 4.4 3.5 - 5.0 mMol/L 11/25/2023 7:54 AM [facility] Chloride 104 98 - 107 mMol/L 11/25/2023 7:54 AM [facility] Carbon Dioxide 23 22 - 31 mMol/L 11/25/2023 7:54 AM [facility] Anion Gap 13 5 - 15 mMol/L 11/25/2023 7:54 AM [facility] Calcium 9.9 8.5 - 10.5 mg/dL 11/25/2023 7:54 AM [facility] Protein, Total 7.3 6.1 - 8.0 g/dL 11/25/2023 7:54 AM [facility] Albumin 4.4 3.2 - 5.2 g/dL 11/25/2023 7:54 AM [facility] Aspartate Aminotransferase 16 <=30 unit/L 11/25/2023 7:54 AM [facility] Alanine Aminotransferase 14 0 - 30 unit/L 11/25/2023 7:54 AM [facility] Alkaline Phosphatase 104 35 - 105 unit/L 11/25/2023 7:54 AM [facility] Bilirubin, Total <0.2 <=1.3 mg/dL 11/25/2023 7:54 AM [facility] Est Glomerular Filtration Rate - Female 94 mL/min/1. 73 m?? 11/25/2023 7:54 AM [facility] Comment: This patient's estimated [...] Fasting Status No 11/25/2023 7:54 AM EDT [facility] Blood VENOUS BLOOD SPECIMEN / Unknown Venipuncture / Unknown 11/25/2023 7:19 AM EDT 11/25/2023 7:19 AM EDT Omid Sierra MD CHEMISTRY ORDERABLE S [facility] [place] [address] * (ABNORMAL) CBC (with Diff) (11/25/2023 7:19 AM EDT) White Blood Cell 8.69 4.00 - 9.50 x10(3)/mc L 11/25/2023 7:30 AM EDT [facility] Red Blood Cell 5.27(H) 4.00 - 5.21 x10(6)/mc L 11/25/2023 7:30 AM EDT [facility] Hemoglobin 16.1(H) 11.7 - 15.5 g/dL 11/25/2023 7:30 AM EDT [facility] Hematocrit 47.8(H) 35.7 - 45.8 % 11/25/2023 7:30 AM EDT [facility] Mean Cell Volume 90.7 82.6 - 94.4 fL 11/25/2023 7:30 AM EDT [facility] Mean Cell Hemoglobin 30.6 27.1 - 32.0 pg 11/25/2023 7:30 AM EDT [facility] Mean Cell Hemoglobin Concentration 33.7 31.7 - 35.0 g/dL 11/25/2023 7:30 AM EDT [facility] Platelet 272 145 - 357 x10(3)/mc L 11/25/2023 7:30 AM EDT [facility] Mean Platelet Volume 8.2 7.6 - 12.9 fL 11/25/2023 7:30 AM EDT [facility] RDW Standard Deviation 44.8 37.0 - 46.0 fL 11/25/2023 7:30 AM [facility] RDW coefficient of variation 13.2 11.5 - 14.1 % 11/25/2023 7:30 AM [facility] NRBC% auto 0.0 % 11/25/2023 7:30 AM [facility] NRBC Absolute 0.00 0.00 - 0.00 x10(3)/mc L 11/25/2023 7:30 AM [facility] Neutrophil % 54.1 % 11/25/2023 7:30 AM [facility] Neutrophil Absolute (ANC) - Automated 4.69 1.70 - 6.10 x10(3)/mc L 11/25/2023 7:30 AM [facility] Lymph % 36.7 % 11/25/2023 7:30 AM [facility] Lymph Absolute 3.19 0.90 - 3.20 x10(3)/mc L 11/25/2023 7:30 AM [facility] Monocyte % 7.7 % 11/25/2023 7:30 AM [facility] Monocyte Absolute 0.67 0.30 - 0.90 x10(3)/mc L 11/25/2023 7:30 AM [facility] Eos % 0.9 % 11/25/2023 7:30 AM [facility] Eos Absolute 0.08 0.00 - 0.40 x10(3)/mc L 11/25/2023 7:30 AM [facility] Basophil % 0.3 % 11/25/2023 7:30 AM [facility] Baso Absolute 0.03 0.00 - 0.10 x10(3)/mc L 11/25/2023 7:30 AM [facility] Immature Gran % 0.3 % 7:30 AM [facility] Immature Gran Absolute 0.03 0.00 - 0.04 x10(3)/mc L 11/25/2023 7:30 AM EDT [facility] Blood VENOUS BLOOD SPECIMEN / Unknown Venipuncture / Unknown 11/25/2023 7:19 AM EDT 11/25/2023 7:19 AM EDT Omid Sierra MD HEMATOLOGY ORDERABL ES [facility] [place] [address] documented in this encounter Visit Diagnoses Diagnosis Systemic mastocytosis Malignant mast cell tumors, unspecified site, extranodal and solid organ sites Elevated hemoglobin Other hemoglobinopathies documented in this encounter Care Teams Redevelopment Specialist Relationship Specialty Start Date End Date Estrella Mckay, COMMUNITY DEVELOPMENT OFFICER [place] [address] PCP - General Family Medicine 12/14/23 documented as of this encounter
--- OUTSIDE RECORDS SUMMARY | 2024-02-29 15:54 | XMS_ITS | Encounter Summary ---
Author Organization [facility] [place] [address] Care Team Providers Care Sumac Tanner Name Role Phone Larisa Kinsey MD Primary Care Provider [phone] Encounter Details Date Type Department Care Team (Late st Contact Info) Description 10/28/2011 Abstract [place] [address] Vee Oneill, [facility] [address] Social History Tobacco Use Types Packs/Day Years [...] AM EST Office Visit [place] [address] Sarah Bah, [facility] DR VASCULAR SURGERY [place], [place] [address] 03/04/2024 7:00 AM EST Appointment Mammography/[place] [address] Edmund Truong MD [facility] DR HEMATOLOGY [place] [address] 03/07/2024 10:45 AM EST Laboratory Appointment Lab at [facility] [place]ematology Oncology [address] [place] [address] 03/07/2024 11:30 AM EST Office Visit Hematology and Oncology at [place] [address] Bennett Turner, RN 03/07/2024 11:30 AM EST Office Visit Hematology and Oncology at [place] [address] Edmund Truong MD [facility] DR HEMATOLOGY [place] [address] 03/10/2024 8:15 AM EST Laboratory Appointment Lab at [facility] Hematology Oncology [address] [place] [address] 03/10/2024 8:30 AM EST Scheduled View Only Hematology and Oncology at [place] [address] 03/10/2024 9:00 AM EST Office Visit Hematology and Oncology at [place] [address] Omid Degroot MD [facility] [place] [address] 03/10/2024 9:00 AM EST Office Visit Hematology and Oncology at [place] [address] Bennett Turner, RN 03/25/2024 9:30 AM EST Tech Visit Vascular Lab at [place] [address] Carlton Higgins, RVT 03/25/2024 10:15 AM EST Office Visit [place] [address] Tomy Raymond MD [facility] [place] [address] documented as of this encounter Procedures Procedure Name Priority Date/Time Associated Diagnosis Comments MRI CERVICAL SPINE WO CONTRAST Routine 07/30/2011 MRI LUMBAR SPINE WITHOUT CONTRAST Routine 09/19/2010 documented in this encounter Results * MRI cervical spine WO contrast (07/30/2011) Anatomical Region Laterality Modality C-spine Magnetic Resonan ce Historical Provider MD GRAF MRI ORDERABLE S * MRI lumbar spine without contrast (09/19/2010) Anatomical Region Laterality Modality L-spine Magnetic Resonan ce Historical Provider MD GRAF MRI ORDERABLE S documented in this encounter Visit Diagnoses Not on filedocumented in this encounter Care Teams Sumac Tanner Relationship Specialty Start Date End Date Larisa Kinsey MD [address] [place] [address] PCP - General 08/01/11 07/15/17 documented as of this encounter
--- OUTSIDE RECORDS SUMMARY | 2024-02-29 15:54 | XMS_ITS | Encounter Summary ---
Author Organization [facility] [place] [address] Care Team Providers Care Fire Assistant Name Role Phone Larisa Kinsey MD Primary Care Provider [phone] Encounter Details Date Type Department Care Team (Late st Contact Info) Description 07/30/2011 Orders Only Orthopaedics at [place] [phone] Kaveh Winn MD [facility] [place] [address] Social History Tobacco Use Types Packs/Day Years [...] AM EST Office Visit Vascular Surgery at [place] [phone] Sarah Bah APRN [facility] [place] [address] 03/04/2024 7:00 AM EST Appointment Mammography/DXA at [place] [phone] Edmund Truong MD [facility] DR [place] [address] 03/07/2024 10:45 AM EST Laboratory Appointment Lab at [facility] [place] Oncology [address] [place], [place] [phone] 03/07/2024 11:30 AM EST Office Visit Hematology and Oncology at [place] [phone] Bennett Turner, RN 03/07/2024 11:30 AM EST Office Visit Hematology and Oncology at [place] [phone] Edmund Truong MD [facility] DR [place] [address] 03/10/2024 8:15 AM EST Laboratory Appointment Lab at [facility] Hematology Oncology [address] [place], [place] [phone] 03/10/2024 8:30 AM EST Scheduled View Only Hematology and Oncology at [address] 03/10/2024 9:00 AM EST Office Visit Hematology and Oncology at [place] [address] Omid Degroot MD [facility] [place] [address] 03/10/2024 9:00 AM EST Office Visit Hematology and Oncology at [place] [phone] Bennett Turner, RN 03/25/2024 9:30 AM EST Tech Visit Vascular Lab at [place] [phone] Carlton Higgins, RVT 03/25/2024 10:15 AM EST Office Visit Vascular Surgery at [place] [phone] Tomy Raymond MD [facility] [place] [address] documented as of this encounter Procedures Procedure Name Priority Date/Time Associated Diagnosis Comments FILM LIBRARY STORAGE ONLY MR SPINE Routine 07/30/2011 1:05 PM EDT documented in this encounter Results * FILM LIBRARY- STORAGE ONLY MR SPINE (07/30/2011 1:05 PM EDT) 07/30/2011 1:05 PM EDT Narrative [facility] - 09/30/2013 1:54 AM EDT This is a non-reportable exam. Procedure Note Kelvin Ribera - 09/30/2013 This is a non-reportable exam. Kaveh Winn MD [facility] FILM LIBRARY ORD ERABLES [facility] [address] [facility] [place] [address] documented in this encounter Visit Diagnoses Not on filedocumented in this encounter Care Teams Fire Assistant Relationship Specialty Start Date End Date Larisa Kinsey MD [address] [place] [address] PCP - General 08/01/11 07/15/17 documented as of this encounter
--- OUTSIDE RECORDS SUMMARY | 2024-02-29 15:54 | XMS_ITS | Encounter Summary ---
Author Organization [facility] [place] [address] Care Team Providers Care Food Editor Name Role Phone Larisa Kinsey MD Primary Care Provider [phone] Encounter Details Date Type Department Care Team (Late st Contact Info) Description 09/22/2011 12:45 PM EDT - 09/22/2011 2:26 PM EDT Hospital Encounter XRay at [address] [place] [address] Social History Tobacco Use Types Packs/Day Years Used Date Smoking Tobacco: Every Day Cigarettes Smokeless Tobacco: Never Comments:3/4TH PK A DAY [...] AM EST Office [place] [address] Sarah Bah APRN [facility] [place] [address] 03/04/2024 7:00 AM EST Appointment Mammography/[place] [phone] Edmund Truong MD [facility] DR [place] [address] 03/07/2024 10:45 AM EST Laboratory Appointment Lab at [facility] [place]ology Oncology [address] [place] [address] 03/07/2024 11:30 AM EST Office Visit Hematology and Oncology at [place] [address] Bennett Turner, RN 03/07/2024 11:30 AM EST Office Visit Hematology and Oncology at [place] [address] Edmund Truong MD [facility] DR [place] [address] 03/10/2024 8:15 AM EST Laboratory Appointment Lab at [facility] Hematology Oncology [address] [place] [address] 03/10/2024 8:30 AM EST Scheduled View Only Hematology and Oncology at [place] [address] 03/10/2024 9:00 AM EST Office Visit Hematology and Oncology at [place] [address] Omid Degroot MD [facility] [place] [address] 03/10/2024 9:00 AM EST Office Visit Hematology and Oncology at [place] [address] Bennett Turner, RN 03/25/2024 9:30 AM EST Tech [place] [address] Carlton Higgins, RVT 03/25/2024 10:15 AM EST Office Visit Vascular Surgery at [place] [phone] Tomy Raymond MD [facility] [place] [address] documented as of this encounter Visit Diagnoses Not on filedocumented in this encounter Care Teams Food Editor Relationship Specialty Start Date End Date Larisa Kinsey MD [facility] [address] [place] [address] PCP - General 08/01/11 07/15/17 documented as of this encounter
--- OUTSIDE RECORDS SUMMARY | 2024-02-29 15:54 | XMS_ITS | Encounter Summary ---
[place] [address] Care Team Providers Care Interior Wirer Name Role Phone Larisa Kinsey MD Primary Care Provider [phone] Encounter Details Date Type Department Care Team (Late st Contact Info) Description 10/31/2011 Abstract Spine Center at [place] [phone] Laura Caputo, INDUSTRIAL ACCOUNTANT Social History Tobacco Use Types Packs/Day Years [...] AM EST Office Visit Vascular Surgery at [place] [phone] Sarah Bah APRN [facility] [place] [address] 03/04/2024 7:00 AM EST Appointment Mammography[place] [address] Edmund Truong MD [facility] DR HEMATOLOGY [place] [address] 03/07/2024 10:45 AM EST Laboratory Appointment Lab at [facility] Hematology Oncology [address] [place], [place] [phone] 03/07/2024 11:30 AM EST Office Visit Hematology and Oncology at [place] [phone] Bennett Turner, RN 03/07/2024 11:30 AM EST Office Visit Hematology and Oncology at [address] Edmund Truong MD [facility] DR HEMATOLOGY [place] [address] 03/10/2024 8:15 AM EST Laboratory Appointment Lab at [facility] Hematology Oncology [address] [place], [place] [phone] 03/10/2024 8:30 AM EST Scheduled View Only Hematology and Oncology at [place] [address] 03/10/2024 9:00 AM EST Office Visit Hematology and Oncology at [place] [address] Omid Degroot MD [facility] [place] [address] 03/10/2024 9:00 AM EST Office Visit Hematology and Oncology at [place] [phone] Bennett Turner, RN 03/25/2024 9:30 AM EST Tech Visit Vascular Lab at [place] [phone] Carlton Higgins, RVT 03/25/2024 10:15 AM EST Office Visit Vascular Surgery at [place] [phone] Tomy Raymond MD [facility] [place] [address] documented as of this encounter Visit Diagnoses Not on filedocumented in this encounter Care Teams Interior Wirer Relationship Specialty Start Date End Date Larisa Kinsey MD [address] [place] [address] PCP - General 08/01/11 07/15/17 documented as of this encounter
--- OUTSIDE RECORDS SUMMARY | 2024-02-29 15:54 | XMS_ITS | Encounter Summary ---
Author Organization [facility] [place] [address] Care Team Providers Care Marker Hand Name Role Phone Larisa Kinsey MD Primary Care Provider [phone] Encounter Details Date Type Department Care Team (Late st Contact Info) Description 09/19/2010 Orders [place] [address] Vee Oneill [facility] [place] [address] Social History Tobacco Use Types Packs/Day Years [...] AM EST Office Visit Vascular Surgery at [place] [phone] Sarah Bah [facility] [place] [address] 03/04/2024 7:00 AM EST Appointment Mammography/DXA at [place] [phone] Edmund Truong MD [facility] HEMATOLOGY [place] [address] 03/07/2024 10:45 AM EST Laboratory Appointment Lab [place] [facility] [place] [address] [place], [place] [phone] 03/07/2024 11:30 AM EST Office Visit Hematology and Oncology at [place] [phone] Bennett Turner, RN 03/07/2024 11:30 AM EST Office Visit Hematology and Oncology at [place] [address] Edmund Truong MD [facility] DR HEMATOLOGY [place] [address] 03/10/2024 8:15 AM EST Laboratory Appointment Lab at [facility] [place] On[place] [address] [place], [place] [phone] 03/10/2024 8:30 AM EST Scheduled View Only Hematology and Oncology at [place] [address] 03/10/2024 9:00 AM EST Office Visit Hematology and Oncology at [place] [address] Omid Degroot MD [facility] [place] [address] 03/10/2024 9:00 AM EST Office Visit Hematology and Oncology at [place] [phone] Bennett Turner, RN 03/25/2024 9:30 AM EST Tech Visit Vascular Lab at [place] [phone] Carlton Higgins, RVT 03/25/2024 10:15 AM EST Office Visit Vascular Surgery at [place] [phone] Tomy Raymond MD [facility] [place] [address] documented as of this encounter Procedures Procedure Name Priority Date/Time Associated Diagnosis Comments FILM LIBRARY STORAGE ONLY MR SPINE Routine 09/19/2010 7:10 AM EDT documented in this encounter Results * FILM LIBRARY- STORAGE ONLY MR SPINE (09/19/2010 7:10 AM EDT) 09/19/2010 7:10 AM EDT Narrative RAD - 09/30/2013 1:54 AM EDT This is a non-reportable exam. Procedure Note Kelvin Ribera - 09/30/2013 This is a non-reportable exam. Vee Oneill APRN IMG FILM LIBRARY OR DERABLES Performing Organization Address City/State/[facility] Co de Phone Number [facility] [address] [place] [address] documented in this encounter Visit Diagnoses Not on filedocumented in this encounter Care Teams Marker Hand Relationship Specialty Start Date End Date Larisa Kinsey MD [address] [place] [address] PCP - General 08/01/11 07/15/17 documented as of this encounter
--- OUTSIDE RECORDS SUMMARY | 2024-02-29 15:54 | XMS_ITS | Encounter Summary ---
Author Organization [facility] [place] [address] Care Team Providers Care Drafter Electrical Name Role Phone Oneida Beltran APRN Primary Care Provider [phone] Encounter Details Date Type Department Care Team (Late st Contact Info) Description 08/18/2023 Ancillary Procedure Radiology Library at [facility] [place] [phone] Oneida Beltran, TECHNICIAN [employer] [address] [place] [address] Social History Tobacco Use Types Packs/Day Years [...] AM EST Office Visit [place] [address] Sarah Bah, TECHNICIAN SEMICONDUCTOR DEVELOPMENT [facility] [place] [address] 03/04/2024 7:00 AM EST Appointment Mammography/[place] [address] Edmund Truong MD [facility] DR [place] [address] 03/07/2024 10:45 AM EST Laboratory Appointment Lab at [facility] [place] On[place] [address] [place], [place] [phone] 03/07/2024 11:30 AM EST Office Visit Hematology and Oncology at [place] [phone] Bennett Turner, RN 03/07/2024 11:30 AM EST Office Visit Hematology and Oncology at [place] [address] Edmund Truong MD [facility] DR [place] [address] 03/10/2024 8:15 AM EST Laboratory Appointment Lab at [facility] Hematology Oncology [address] [place], [place] [phone] 03/10/2024 8:30 AM EST Scheduled View Only Hematology and Oncology at [place] [address] 03/10/2024 9:00 AM EST Office Visit Hematology and Oncology at [place] [phone] Omid Degroot MD [facility] [place] [place] [address] 03/10/2024 9:00 AM EST Office Visit Hematology and Oncology at [place] [phone] Bennett Turner, RN 03/25/2024 9:30 AM EST Tech Visit Vascular Lab at [place] [phone] Carlton Higgins, RVT 03/25/2024 10:15 AM EST Office [place] [address] Tomy Raymond MD [facility] [place] [address] documented as of this encounter Procedures Procedure Name Priority Date/Time Associated Diagnosis Comments FILM LIBRARY STORAGE ONLY CT ABDOMEN AND PELVIS Routine 08/18/2023 12:00 AM EDT documented in this encounter Results * Film Library- Storage Only CT Abdomen & Pelvis (08/18/2023 12:00 AM EDT) Narrative [facility] - 09/04/2023 12:37 PM EDT This exam is auto-finalizing. It's purpose is for storage only. Oneida Beltran APRN IMM[facility] FILM LIBRARY ORD ERABLES [place], [place] documented in this encounter Visit Diagnoses Not on filedocumented in this encounter Care Teams Drafter Electrical Relationship Specialty Start Date End Date Oneida Beltran APRN PCP - General Family Medicine 07/16/17 12/13/23 documented as of this encounter
--- OUTSIDE RECORDS SUMMARY | 2024-02-29 15:54 | XMS_ITS | Encounter Summary ---
Author Organization [facility] [place] [address] Care Team Providers Care Manager Unit Name Role Phone Oneida Beltran APRN Primary Care Provider [phone] Encounter Details Date Type Department Care Team (Late st Contact Info) Description 06/17/2023 Ancillary Procedure Radiology Library at [facility] [place] [phone] [facility] [place] [address] Social History Tobacco Use Types Packs/Day Years [...] AM EST Office [place] [address] [facility] [place] [address] 03/04/2024 7:00 AM EST Appointment Mammography/[place] [address] [facility] DR [place] [address] 03/07/2024 10:45 AM EST Laboratory Appointment Lab at [facility] Hematology Oncology [address] [place] [address] 03/07/2024 11:30 AM EST Office Visit Hematology and Oncology at [place] [address] Bennett Turner, RN 03/07/2024 11:30 AM EST Office Visit Hematology and Oncology at [place] [address] [facility] DR [place] [address] 03/10/2024 8:15 AM EST Laboratory Appointment Lab at [facility] Hematology Oncology [address] [place] [address] 03/10/2024 8:30 AM EST Scheduled View Only Hematology and Oncology at [place] [address] 03/10/2024 9:00 AM EST Office Visit Hematology and Oncology at [place] [address] [facility] [place] [address] 03/10/2024 9:00 AM EST Office Visit Hematology and Oncology at [place] [address] Bennett Turner, RN 03/25/2024 9:30 AM EST Tech Visit Vascular Lab at [place] [address] Carlton Higgins, RVT 03/25/2024 10:15 AM EST Office [place] [address] [facility] [place] [address] documented as of this encounter Procedures Procedure Name Priority Date/Time Associated Diagnosis Comments FILM LIBRARY STORAGE ONLY NUCLEAR MEDICINE Routine 06/17/2023 12:00 AM EDT documented in this encounter Results * Film Library- Storage Only nuclear medicine (06/17/2023 12:00 AM EDT) Narrative [facility] - 12/30/2023 4:20 PM EDT This exam is auto-finalizing. It's purpose is for storage only. Edmund Truong MD IMG FILM LIBRARY O RDERABLES [place], [place] documented in this encounter Visit Diagnoses Not on filedocumented in this encounter Care Teams Manager Unit Relationship Specialty Start Date End Date Oneida Beltran, PARAM PCP - General Family Medicine 07/16/17 12/13/23 documented as of this encounter
--- OUTSIDE RECORDS SUMMARY | 2024-02-29 15:54 | XMS_ITS | Encounter Summary ---
Author Organization [facility] [place] [address] Care Team Providers Care Marketing Intelligence Analyst Name Role Phone Oneida Beltran APRN Primary Care Provider [phone] Encounter Details Date Type Department Care Team (Late st Contact Info) Description 05/28/2023 Ancillary Procedure Radiology Library at [facility] [place] [phone] Oneida Beltran, ENGINEER TECHNICAL STAFF [address] [place] [address] Social History Tobacco Use Types Packs/Day Years [...] AM EST Office [place] [address] Sarah Bah, ENGINEER TECHNICAL STAFF [facility] [place] [address] 03/04/2024 7:00 AM EST Appointment Mammography/[place] [address] Edmund Truong MD [facility] DR [place] [address] 03/07/2024 10:45 AM EST Laboratory Appointment Lab at [facility] [place] Hematology Oncology [address] [place], [place] [phone] 03/07/2024 11:30 AM EST Office Visit Hematology and Oncology at [place] [phone] Bennett Turner, RN 03/07/2024 11:30 AM EST Office Visit Hematology and Oncology at [place] [address] Edmund Truong MD [facility] [place] [address] 03/10/2024 8:15 AM EST Laboratory Appointment Lab at [facility] [place] Hematology Oncology [address] [place], [place] [phone] 03/10/2024 8:30 AM EST Scheduled View Only Hematology and Oncology at [place] [address] 03/10/2024 9:00 AM EST Office Visit Hematology and Oncology at [place] [phone] Omid Degroot MD [facility] [place] [address] 03/10/2024 9:00 AM EST Office Visit Hematology and Oncology at [place] [phone] Bennett Turner, RN 03/25/2024 9:30 AM EST Tech Visit Vascular Lab at [place] [phone] Carlton Higgins, RVT 03/25/2024 10:15 AM EST Office [place] [address] Tomy Raymond MD [facility] [place] [address] documented as of this encounter Procedures Procedure Name Priority Date/Time Associated Diagnosis Comments FILM LIBRARY STORAGE ONLY CT CHEST Routine 05/28/2023 12:00 AM EST documented in this encounter Results * Film Library- Storage Only CT Chest (05/28/2023 12:00 AM EST) Narrative [facility] - 07/03/2023 3:52 PM EDT This exam is auto-finalizing. It's purpose is for storage only. Oneida Beltran APRN IMMichael FILM LIBRARY ORD ERABLES [place], [place] documented in this encounter Visit Diagnoses Not on filedocumented in this encounter Care Teams Marketing Intelligence Analyst Relationship Specialty Start Date End Date Oneida Beltran APRN PCP - General Family Medicine 07/16/17 12/13/23 documented as of this encounter
--- OUTSIDE RECORDS SUMMARY | 2024-02-29 15:54 | XMS_ITS | Encounter Summary ---
Author Organization [facility] [place] [address] Care Team Providers Care Resource Development Director Name Role Phone Larisa Kinsey MD Primary Care Provider Reason for Visit * Reason Comments Right Shoulder Pain 2ND OPINION. S/P 2 O PERATIONS W/IN THE PAST YR. Encounter Details Date Type Department Care Team (Late st Contact Info) Description 09/22/2011 1:45 PM EDT Office Visit [place] [address] Kaveh Winn MD [facility] DR ORTHOPAEDIC [place] [address] Shoulder pain, right (Primary Dx) Discharge Disposition: Home Social History [...] Sign Reading Time Taken Comments Blood Pressure 124/74 09/22/2011 1:34 PM EDT Pulse - - Temperature - - Respiratory Rate - - Oxygen Saturation - - Inhaled Oxygen Concentration - - Weight 54.4 kg (120 lb) 09/22/2011 1:34 PM EDT Height 162.6 cm (5' 4) 09/22/2011 1:34 PM EDT Body Mass Index 20.6 09/22/2011 1:34 PM EDT documented in this encounter Progress Notes * Kaveh Wnin MD - 09/22/2011 2:28 PM EDT Ms. 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 She works in [employer]. She is seen in consultation at the request of Dr. Larisa Kinsey. Her problems involves her RIGHT SHOULDER. She sustained a new trauma but began having increasing pain. She saw Dr. Jadon Burton who took her to the operating room on 12/04/2010, and performed an open distal clavicle resection and excision of a fatty tumor. She reports that she developed bone spurs immediately. She was returned to the operating room on 05/21/2011. Again, she had an open procedure and the shoulder was cleaned up. She reports that shortly after surgery, she noted a swelling and points at the right side of her neck and down on to the dorsum of her shoulder. She had repeat MRI, which was apparently negative and an EMG nerve conduction study, which was also negative. She now reports that she has no pain in her neck. She has pain on her shoulder and points to the superolateral aspect of her shoulder. She reports that she has been able to maintain her range of motion. She has had therapy for three months. She has had lost her strength because of pain. She has occasional crepitus. She also reports that she currently has numbness in her fingers. She has had no injections pre or postoperatively. She has had no prior pain in that shoulder. REVIEW OF SYSTEMS: No history of peptic ulcer disease, diabetes, hypertension, rheumatoid arthritis, gout, or cancer. She does smoke. Recent weight loss, fevers, chills, or other evidence of systemic illness. ALLERGIES: IBUPROFEN CAUSES HIVES, MORPHINE CAUSES NAUSEA AND VOMITING. PHYSICAL EXAMINATION: General: Well-developed, well-nourished thin-appearing white female, in no acute distress. Cardiovascular: Regular rate and rhythm by palpation. Neuro/Musculoskeletal Exam: Neck, no midline tenderness. No true radicular symptoms. Right side of neck, there may be a fullness just posterior to the clavicle and medial to the side of her well-healed sabre incision. Her skin is supple. There is no evidence of infection. No warmth or erythema. She is exquisitely tender to palpation of the clavicle from the middle third to the distal third AC joint and to the sabre incision. However, her pain does not exacerbate with adduction across the midline. Total active elevation is 160 degrees. Her external rotation is 50 degrees, internal rotation is to her lumbosacral spine. She has 5/5 strength to rotator cuff testing. She has a negative Yergason' and negative speed. Her right elbow shows full painless range of motion. Her right wrist and hand, she shows a subjective sensory decrease of all of her digits on the right compared to the left. Her radial pulse is 2+. No x-rays have been obtained. I did review her both MRIs in which I see that she is status post distal clavicle resection but I see no obvious abnormalities in the area of her pain over the middle to distal third of the clavicle and the supraclavicular fossa. IMPRESSION: RIGHT SHOULDER pain status post distal clavicle resection x2 and excision of subcutaneous lipoma. PLAN: 1. Will obtain official x-rays today of her RIGHT SHOULDER. 2. If the x-rays are negative, I think she will benefit by physical therapy for scar massage and desensitization. 3. Wider bra strap with a cushion as I do think she is putting her bra strap with significant pressure over that area, which exacerbates her symptoms and she agrees with that. We have elected that we will obtain x-rays today. I will review them. If they do not show pathology, then I will not call her. She understands that. Obviously, if they do show pathology, I will baez to speak with her by phone. CC: Larisa Kinsey MD documented in this encounter Plan of Treatment Upcoming Encounters Date Type Department Care Team (Late st Contact Info) Description 03/02/2024 8:30 AM EST Office Visit [place] [address] Sarah Bah APRN [facility] [place] [address] 03/04/2024 7:00 AM EST Appointment Mammography/DXA at [place] [address] Edmund Truong MD [facility] [place] [address] 03/07/2024 10:45 AM EST Laboratory Appointment Lab at [facility] [place] [address] 03/07/2024 11:30 AM EST Office Visit Hematology and Oncology at [place] [address] Bennett Turner, RN 03/07/2024 11:30 AM EST Office Visit Hematology and Oncology at [place] [address] Edmund Truong MD [facility] [place] [address] 03/10/2024 8:15 AM EST Laboratory Appointment Lab at [place] [address] 03/10/2024 8:30 AM EST Scheduled View Only Hematology and Oncology at [place] [address] 03/10/2024 9:00 AM EST Office Visit Hematology and Oncology at [place] [address] Omid Degroot MD [facility] [place] [address] 03/10/2024 9:00 AM EST Office Visit Hematology and Oncology at [place] [phone] Bennett Turner RN 03/25/2024 9:30 AM EST Tech Visit Vascular Lab at [address] Carlton Higgins, RVT 03/25/2024 10:15 AM EST Office Visit [place] [address] Tomy Raymond MD [facility] [address] [place] [address] documented as of this encounter Visit Diagnoses Diagnosis Shoulder pain, right- Primary Pain in joint, shoulder region documented in this encounter Care Teams Resource Development Director Relationship Specialty Start Date End Date Larisa Kinsey MD [address] [address] PCP - General 08/01/11 07/15/17 documented as of this encounter
--- OUTSIDE RECORDS SUMMARY | 2024-02-29 15:54 | XMS_ITS | Encounter Summary ---
[place] [address] Care Team Providers Care Boat Buffer Plastic Name Role Phone Oneida Beltran Katie CABELLON Primary Care Provider [phone] Encounter Details Date Type Department Care Team (Late st Contact Info) Description 09/17/2023 [place] [address] Nancy Cook PA [facility] [place] [address] Social History Tobacco Use Types Packs/Day Years [...] on file documented as of this encounter H&P Notes * Nancy Cook PA - 09/17/2023 8:48 AM [...] ordering provider. Patient reviewed with Dr. Ellen uK. documented in this encounter Plan of Treatment Upcoming Encounters Date Type Department Care Team (Late st Contact Info) Description 03/02/2024 8:30 AM EST Office [place] [phone] Sarah Bah APRN [facility] [place] [address] 03/04/2024 7:00 AM EST Appointment Mammography/[place] [phone] Edmund Truong MD [facility] [place] [address] 03/07/2024 10:45 AM EST Laboratory Appointment Lab at [facility] [place] Hematology Oncology [address] [place] [phone] 03/07/2024 11:30 AM EST Office Visit Hematology and Oncology at [place] [phone] Bennett Turner, RN 03/07/2024 11:30 AM EST Office Visit Hematology and Oncology at [place] [phone] Edmund Truong MD [facility] DR [place] [address] 03/10/2024 8:15 AM EST Laboratory Appointment Lab at [facility] [place] Hematology [place] [phone] 03/10/2024 8:30 AM EST Scheduled View Only Hematology and Oncology at [place] [address] 03/10/2024 9:00 AM EST Office Visit Hematology and Oncology at [place] [address] Omid Degroot MD [facility] [place] [address] 03/10/2024 9:00 AM EST Office Visit Hematology and Oncology at [place] [phone] Bennett Turner, RN 03/25/2024 9:30 AM EST Tech Visit Vascular Lab at [place] [phone] Carlton Higgins, RVT 03/25/2024 10:15 AM EST Office Visit Vascular Surgery at [place] [phone] Tomy Raymond MD [facility] [place] [address] documented as of this encounter Visit Diagnoses Not on filedocumented in this encounter Care Teams Boat Buffer Plastic Relationship Specialty Start Date End Date Oneida Beltran APRN PCP - General Family Medicine 07/16/17 12/13/23 documented as of this encounter
--- OUTSIDE RECORDS SUMMARY | 2024-02-29 15:54 | XMS_ITS | Encounter Summary ---
Author Organization [facility] [address] Care Team Providers Care Ed Teacher Name Role Phone Larisa Kinsey MD Primary Care Provider [phone] Encounter Details Date Type Department Care Team (Late st Contact Info) Description 10/27/2011 7:00 AM EDT - 10/27/2011 11:59 PM EDT Hospital Encounter XRay at [address] [place] [address] Social History Tobacco Use Types Packs/Day Years [...] AM EST Office Visit [place] [address] Sarah Bah APRN [facility] [place] [address] 03/04/2024 7:00 AM EST Appointment Mammography/[place] [phone] Edmund Truong MD [facility] [place] [address] 03/07/2024 10:45 AM EST Laboratory Appointment Lab at [facility]ematology Oncology [address] [place] [address] 03/07/2024 11:30 AM EST Office Visit Hematology and Oncology at [place] [address] Bennett Turner, RN 03/07/2024 11:30 AM EST Office Visit Hematology and Oncology at [address] Edmund Truong MD [facility] DR [place] [address] 03/10/2024 8:15 AM EST Laboratory Appointment Lab at [facility] Hematology Oncology [address] [place], [place] [phone] 03/10/2024 8:30 AM EST Scheduled View Only Hematology and Oncology at [place] [phone] 03/10/2024 9:00 AM EST Office Visit Hematology and Oncology at [place] [address] Omid Degroot MD [facility] [place] [place] [address] 03/10/2024 9:00 AM EST Office Visit Hematology and Oncology at [place] [phone] Bennett Turner, RN 03/25/2024 9:30 AM EST Tech Visit Vascular Lab at [place] [phone] Carlton Higgins, RVT 03/25/2024 10:15 AM EST Office Visit Vascular Surgery at [place] [phone] Tomy Raymond MD [facility] [place] [address] documented as of this encounter Visit Diagnoses Not on filedocumented in this encounter Care Teams Ed Teacher Relationship Specialty Start Date End Date Larisa Kinsey MD [facility] [address] [place] [address] PCP - General 08/01/11 07/15/17 documented as of this encounter
--- OUTSIDE RECORDS SUMMARY | 2024-02-29 15:54 | XMS_ITS | Encounter Summary ---
Author Organization [facility] [place] [address] Care Team Providers Care Home Appliance Tech Name Role Phone Umerdean Oneida Dean VIRGEN Primary Care Provider Encounter Details Date Type Department Care Team (Latest Contact Info) Description 10/15/2023 Travel Social History Tobacco Use Types Packs/Day [...] AM EST Office Visit [place] [phone] Sarah Bah APRN [facility] [place] [address] 03/04/2024 7:00 AM EST Appointment Mammography/[place] [phone] Edmund Truong MD [facility] DR [place] [address] 03/07/2024 10:45 AM EST Laboratory Appointment Lab at [facility] [place] Hematology Oncology [address] [place] [phone] 03/07/2024 11:30 AM EST Office Visit Hematology and Oncology at [place] [phone] Bennett Turner, RN 03/07/2024 11:30 AM EST Office Visit Hematology and Oncology at [place] [phone] Edmund Truong MD [facility] DR [place] [address] 03/10/2024 8:15 AM EST Laboratory Appointment Lab at [facility] [place] Hematology Oncology [address] [place], [place] [phone] 03/10/2024 8:30 AM EST Scheduled View Only Hematology and Oncology at [place] [phone] 03/10/2024 9:00 AM EST Office Visit Hematology and Oncology at [place] [address] Omid Degroot MD [facility] [place] [address] 03/10/2024 9:00 AM EST Office Visit Hematology and Oncology at [place] [phone] Bennett Turner, RN 03/25/2024 9:30 AM EST Tech Visit Vascular Lab at [place] [phone] Carlton Higgins, RVT 03/25/2024 10:15 AM EST Office Visit Vascular Surgery at [place] [phone] Tomy Raymond MD [facility] [place] [address] documented as of this encounter Visit Diagnoses Not on filedocumented in this encounter Care Teams Home Appliance Tech Relationship Specialty Start Date End Date Oneida Beltran APRN PCP - General Family Medicine 07/16/17 12/13/23 documented as of this encounter
--- OUTSIDE RECORDS SUMMARY | 2024-02-29 15:54 | XMS_ITS | Encounter Summary ---
[place] [address] Care Team Providers Care Last Scourer Name Role Phone Ruby Oneida Wilson APRN Primary Care Provider [phone] Encounter Details Date Type Department Care Team (Late st Contact Info) Description 09/17/2023 [place] [phone] Nancy Cook, [facility] [place] [address] Social History Tobacco Use Types Packs/Day Years [...] AM EST Office [place] [address] Sarah Bah APRN [facility] [place] [address] 03/04/2024 7:00 AM EST Appointment Mammography/[place] [address] Edmund Truong MD [facility] [place] [address] 03/07/2024 10:45 AM EST Laboratory Appointment Lab at [facility] [place] Hematology Oncology [address] [place] [address] 03/07/2024 11:30 AM EST Office Visit Hematology and Oncology at [place] [address] Bennett Turner, RN 03/07/2024 11:30 AM EST Office Visit Hematology and Oncology at [place] [address] Edmund Truong MD [facility] [place] [address] 03/10/2024 8:15 AM EST Laboratory Appointment Lab at [facility] Hematology Oncology [address] [place] [address] 03/10/2024 8:30 AM EST Scheduled View Only Hematology and Oncology at [place] [address] 03/10/2024 9:00 AM EST Office Visit Hematology and Oncology at [place] [address] Omid Degroot MD [facility] [place] [address] 03/10/2024 9:00 AM EST Office Visit Hematology and Oncology at [place] [address] Bennett Turner, RN 03/25/2024 9:30 AM EST Tech [place] [address] Carlton Higgins, RVT 03/25/2024 10:15 AM EST Office [place] [address] Tomy Raymond MD [facility] [place] [address] documented as of this encounter Visit Diagnoses Not on filedocumented in this encounter Care Teams Last Scourer Relationship Specialty Start Date End Date Oneida Beltran APRN PCP - General Family Medicine 07/16/17 12/13/23 documented as of this encounter
--- OUTSIDE RECORDS SUMMARY | 2024-02-29 15:54 | XMS_ITS | Encounter Summary ---
Author Organization [facility] [place] [address] Care Team Providers Care Plywood Layup Line Core Layer Name Role Phone Larisa Kinsey MD Primary Care Provider [phone] Encounter Details Date Type Department Care Team (Latest Contact Info) Description 09/22/2011 2:27 PM EDT - 09/22/2011 11:59 PM EDT Hospital Encounter XRay at [address] [place] [phone] CLINIC, Kaveh Martinez MD [facility] [place] [address] Shoulder pain, right Discharge Disposition: Home Social History Tobacco Use [...] AM EST Office Visit Vascular Surgery at [facility] [place] [phone] Sarah Bah APRN [facility] [address] 03/04/2024 7:00 AM EST Appointment Mammography/DXA at [place] [address] Edmund Truong MD [facility] DR HEMATOLOGY [place] [address] 03/07/2024 10:45 AM EST Laboratory Appointment Lab at [facility] [place] [place]ematology [place] [address] 03/07/2024 11:30 AM EST Office Visit Hematology and Oncology at [place] [address] Bennett Turner, RN 03/07/2024 11:30 AM EST Office Visit Hematology and Oncology at [place] [address] Edmund Truong MD [facility] DR HEMATOLOGY [place] [address] 03/10/2024 8:15 AM EST Laboratory Appointment Lab at [place] [address] 03/10/2024 8:30 AM EST Scheduled View Only Hematology and Oncology at [place] [address] 03/10/2024 9:00 AM EST Office Visit Hematology and Oncology at [place] [address] Omid Degroot MD [facility] [place] [address] 03/10/2024 9:00 AM EST Office Visit Hematology and Oncology at [place] [phone] Bennett Turner, RN 03/25/2024 9:30 AM EST Tech Visit Vascular Lab at [address] Carlton Higgins, RVT 03/25/2024 10:15 AM EST Office [place] [address] Tomy Raymond MD [facility] [address] documented as of this encounter Procedures Procedure Name Priority Date/Time Associated Diagnosis Comments XR SHOULDER Routine 09/22/2011 2:46 PM EDT Pain in joint, shoulder region documented in this encounter Results * XR SHOULDER (09/22/2011 2:46 PM EDT) Anatomical Region Laterality Modality Shoulder N/A Radiographic Gabriela ging 09/22/2011 2:46 PM EDT Narrative 09/22/2011 5:04 PM EDT Examination SHOULDER COMPLETE/RIGHT -4 views Clinical History Reason for exam and clinical history: PAIN S/P DISTAL CLAVICLE RESECTION; Comparison None Technique Findings The distal 3rd of the clavicle is resected. ??The AC interval is widened. ??The coracoclavicular distance is maintained. ??No bone destruction or soft tissue air. ??The glenoid humeral alignment is normal. ??No periarticular calcifications. Impression ? 1. Interval resection of right distal clavicle. ??The fracture site is unremarkable without bone destruction or soft tissue air. ? 2. Normal glenoid humeral alignment. Procedure Note Maggie Jane MD - 09/22/2011 Examination SHOULDER COMPLETE/RIGHT -4 views Clinical History Reason for exam and clinical history: PAIN S/P DISTAL CLAVICLERESECTION; Comparison None Technique Findings The distal 3rd of the clavicle is resected. The AC interval is widened.The coracoclavicular distance is maintained. No bone destruction or softtissue air. The glenoid humeral alignment is normal. No periarticularcalcifications. Impression 1. Interval resection of right distal clavicle. The fracture site is unremarkable without bone destruction or soft tissue air. 2. Normal glenoid humeral alignment. Kaveh Winn MD IMG DX ORDERABLES documented in this encounter Visit Diagnoses Diagnosis Shoulder pain, right Pain in joint, shoulder region documented in this encounter Care Teams Plywood Layup Line Core Layer Relationship Specialty Start Date End Date Larisa Kinsey MD [address] [place] [address] PCP - General 08/01/11 07/15/17 documented as of this encounter
--- OUTSIDE RECORDS SUMMARY | 2024-02-29 15:54 | XMS_ITS | Encounter Summary ---
[place] [address] Care Team Providers Care Warehouse Team Leader Name Role Phone Larisa Kinsey MD Primary Care Provider [phone] Reason for Referral * Physical Therapy (Routine) - Declined by Patient Specialty Diagnoses / Procedures Referred By Contac t Referred To Contact Physical Therapy Diagnoses Back pain Vee Oneill APRN [facility] [place] [address] [facility] [place] [address] Referral ID Status Reason Start Date Expiration Date Visits Requested Visits Authorized [id number] Declined by Patient Evaluate and Treat 10/27/2011 04/24/2012 1 1 Reason for Visit * Reason Comments Back Pain bilateral hip pain; weakness Encounter Details Date Type Department Care Team (Late st Contact Info) Description 10/27/2011 7:20 AM EDT Office [place] [address] Vee Oneill RETREAD OPERATOR [facility] [place] [address] Back pain (Primary Dx) Discharge Disposition: Home Social [...] - Inhaled Oxygen Concentration - - Weight 55.3 kg (122 lb) 10/27/2011 7:44 AM EDT Height 162.6 cm (5' 4) 10/27/2011 7:44 AM EDT Body Mass Index 20.94 10/27/2011 7:44 AM EDT documented in this encounter Patient Instructions * Patient Instructions* Lali Martinez, ANALYTICAL LABORATORY TECHNICIAN - 10/27/2011 7:49 AM EDT Stopping Smoking: After Your Visit Your Care Instructions Cigarette smokers crave the nicotine in cigarettes. Giving it up is much harder than simply changing a habit. Your body has to stop craving the nicotine. It is hard to quit, but you can do it. There are many tools that people use to quit smoking. You may find that combining tools works best for you. There are several steps to quitting. First you get ready to quit. Then you get support to help you.After that, you learn new skills and behaviors to become a nonsmoker. For many people, a necessary step is getting and using medicine. Your doctor will help you set up the plan that best meets your needs. You may want to attend a smoking cessation program to help you quit smoking. When you choose a program, look for one that has proven success. Ask your doctor for ideas. You will greatly increase your chances of success if you take medicine as well as get counseling or join a cessation program. Some of the changes you feel when you first quit tobacco are uncomfortable. Your body will miss thenicotine at first, and you may feel short-tempered and grumpy. You may have trouble sleeping or concentrating. Medicine can help you deal with these symptoms. You may struggle with changing your smoking habits and rituals. The last step is the tricky one: Be prepared for the smoking urge to continue for a time. This is a lot to deal with, but keep at it. You will feel better. Follow-up care is a rockwell part of your treatment and safety. Be sure to make and go to all appointments, and call your doctor if you are having problems. It???s also a good idea to know your test results and keep a list of the medicines you take. How can you care for yourself at home? Ask your family, friends, and coworkers for support. You have a better chance of quitting if you have help and support. Join a support group, such as Nicotine Anonymous, for people who are trying to quit smoking. Consider signing up for a smoking cessation program, such as the [employer]'s [place] from Smoking program. Set a quit date. Pick your date carefully so that it is not right in the middle of a big deadline or stressful time. Once you quit, do not even take a puff. Get rid of all ashtrays and lighters afteryour last cigarette. Clean your house and your clothes so that they do not smell of smoke. Learn how to be a nonsmoker. Think about ways you can avoid those things that make you reach for a cigarette. Avoid situations that put you at greatest risk for smoking. For some people, it is hard to have a drink with friends without smoking. For others, they might skip a coffee break with coworkers who smoke. Change your daily routine. Take a different route to work or eat a meal in a different place. Cut down on stress. Calm yourself or release tension by doing an activity you enjoy, such as reading a book, taking a hot bath, or gardening. Talk to your doctor or pharmacist about nicotine replacement therapy, which replaces the nicotine in your body. You still get nicotine but you do not use tobacco. Nicotine replacement products help you slowly reduce the amount of nicotine you need. These products come in several forms, many of themavailable [id number]: Nicotine patches Nicotine gum and lozenges Nicotine inhaler Ask your doctor about bupropion (Wellbutrin) or varenicline (Chantix), which are prescription medicines. They do not contain nicotine. They help you by reducing withdrawal symptoms, such as stress and anxiety. Some people find hypnosis, acupuncture, and massage helpful for ending the smoking habit. Eat a healthy diet and get regular exercise. Having healthy habits will help your body move past its craving for nicotine. Be prepared to keep trying. Most people are not successful the first few times they try to quit. Donot get mad at yourself if you smoke again. Make a list of things you learned and think about when you want to try again, such as next week, next month, or next year. Visit our health information library at http://www.[facility].org/healthinfo. You can alsoview health information on [employer], your personal patient account. Log in or sign up today. Enter Y522 in the search box to learn more about Stopping Smoking: After Your Visit. ?? [id number] [employer]. Care instructions adapted under license by [facility]. This care instruction is for use with your licensed healthcare professional. If you have questions about a medical condition or this instruction, always ask your healthcare professional. [employer] disclaims any warranty or liability for your use of this information. Content Version: 9.1.200552; Last Revised: October 23, 2010 documented in this encounter Progress Notes * Vee Oneill, PARAM - 10/27/2011 8:39 AM EDT Chief complaint: Acute on chronic low back pain and chronic right lateral leg pain to the calf. Subjective: The present pleasant, 51-year-old female here with chief complaint of back pain and right leg pain. She's had back pain most of her life since she fell down the stairs age 13. She's had leg pain for about a year or year and a half which started gradually. The leg pain only hurts when she walks and no other activity and the back pain has been episodic. Her most recent event began last Thursday when she was sitting on the told and could not arise. She has had one injection in the right greater trochanteric bursa that did not help her symptoms and actually seem to increase in. She describes the pain as usually 6-7 on a scale of 10 currently it more back and leg pain. It's usually more leg than back pain. It's an achiness with extreme charley horse in the calf. There is no numbness. She feels that she needs to externally rotated right leg when she walks. She has no difficulties going downstairs but does have difficulty going upstairs and she uses in a non-alternating gait when she goes up stairs. Her symptoms are better with rest with lying down with her leg up. Her symptoms are worse with walking in the leg the low back is just flared up at the present time. She's not sleeping well. She has reduced her activity levels. She with was previously walking 2-3 miles a day and is not new to do that for quite some time since last summer. She currently is able to walk about 300 feet and she has to stop several times. She does not need to sit to alleviate her symptoms she just stops. Review of systems is negative for GI, , constitutional symptoms and negative for all other symptoms. Her medications and allergies were updated. She is a current smoker with a [id number]-[id number] history. Objective: This is a 51-year-old female who is slightly overweight. Her stated height is 5 feet 4 and a stated weight is 122. Her right hip and right knee appears higher than the left. Shoulders are equal. She is tender in the right paraspinal area and buttocks. She walks with a cautious and antalgic right gait. She can walk briefly on heels and toes. Her lumbar range of motion is reduced in all directions secondary to back pain. She has no power or sensory loss. Reflexes are brisk at the kneesbut symmetrical 2 at the Achilles and Babinski with downgoing toes. Straight leg raises produce back pain but no leg symptoms. There is no King or clonus. An MRI done at outside facility in September of 2010 is only done of the lower lumbar spine below L4. Hedoes show some decreased signal on the right side of the sacrum. According to the radiologist this is a nonaggressive finding. I do not see any direct nerve root impingement at any level. Assessment: Acute on chronic back pain and right L5 symptoms. Plan: First of all, again her prior to a Medrol Dosepak, some Vicodin, some Robaxin to us lessen her symptoms. She'll take those for 5 days. Secondly I made her a referral to physical therapist on her repeat appointment here. I would also like to have her have an MRI of the lumbar spine and followup with me afterwards to discuss whether or not an injection or other treatment would be helpful. I've answered all her questions today and 45 minutes was spent in [id number] discussion of present symptoms and future plan of care. This dictation was performed using [employer] dictaction. I have attempted to edit the note, but there may still be errors. documented in this encounter Plan of Treatment Upcoming Encounters Date Type Department Care Team (Late st Contact Info) Description 03/02/2024 8:30 AM EST Office Visit Vascular Surgery at [place] [phone] Sarah Bah APRN [facility] [place] [address] 03/04/2024 7:00 AM EST Appointment Mammography/DXA at [place] [phone] Edmund Truong MD [facility] DR HEMATOLOGY [place] [address] 03/07/2024 10:45 AM EST Laboratory Appointment Lab at [facility] [place] [address] [place], [place] [phone] 03/07/2024 11:30 AM EST Office Visit Hematology and Oncology at [place] [phone] Bennett Turner RN 03/07/2024 11:30 AM EST Office Visit Hematology and Oncology at [place] [phone] Edmund Truong MD [facility] DR HEMATOLOGY [place] [address] 03/10/2024 8:15 AM EST Laboratory Appointment Lab at [facility] [place]ology On[place] [address] [place] [phone] 03/10/2024 8:30 AM EST Scheduled View Only Hematology and Oncology at [place] [phone] 03/10/2024 9:00 AM EST Office Visit [place]ology [place] [phone] Omid Degroot MD [facility] [place] [address] 03/10/2024 9:00 AM EST Office Visit [place]ology [place] [phone] Bennett Turner RN 03/25/2024 9:30 AM EST Tech Visit [place] [phone] Carlton Higgins, RVT 03/25/2024 10:15 AM EST Office [place] [phone] Tomy Raymond MD [facility] [place] [address] Scheduled Referrals Name Type Priority Associated Diagnoses Orde r Schedule REFERRAL TO PHYSICAL THERAPY Outpatient Referral Routine Back pain Ordered: 10/27/2011 documented as of this encounter Results * MRI lumbar spine without contrast (11/03/2011 8:52 AM EDT) Anatomical Region Laterality Modality L-spine Magnetic Resonan ce 11/03/2011 8:52 AM EDT Impressions 11/05/2011 4:46 PM EDT Impression: 1. Small posterior disc bulges at L4-L5 and L5-S1 causing mild left neural foraminal narrowing at L5-S1. 2. Sacral osseous lesion is unchanged in size and appearance from previous studies, is likely benign, and may represent an atypical hemangioma. A repeat CT scan of the sacrum may help further document stability if there is continued clinical concern. Film and interpretation reviewed by the attending Narrative 11/05/2011 4:46 PM EDT Examination MR Lumbar Spine WO Clinical History right leg pain Comparison MR of the lumbar spine from 09/19/2010. CT of the abdomen pelvis from 05/24/2007. Technique Routine MRI of the lumbar spine was performed without IV contrast. Findings Normal alignment of the lumbar spine is present. A T1 hypointense lesion in the right anterior aspect of the sacrum is unchanged in size and appearance compared with the previous study and has benign CT characteristics as seen on the 05/25/2007 study. No associated nerve root compression or involvement is identified. Spinal cord signal is normal and the disks are normal signal intensity throughout. ??The conus terminates at the L2. Lumbar Spine By Level: L1-L2: No spinal canal stenosis or neural foraminal narrowing. L2-L3: No spinal canal stenosis or neural foraminal narrowing. L3-L4: No spinal canal stenosis or neural foraminal narrowing. L4-L5: Small posterior disc bulge is present with no spinal canal stenosis or neural foraminal narrowing. Mild facet arthropathy. L5-S1: Small right paracentral posterior disc bulge with mild right neural foraminal narrowing and no central canal stenosis. Procedure Note Yuniel Ma MD - 11/05/2011 Examination MR Lumbar Spine WO Clinical History right leg pain Comparison MR of the lumbar spine from 09/19/2010. CT of the abdomen pelvis from 05/24/2007. Technique Routine MRI of the lumbar spine was performed without IV contrast. Findings Normal alignment of the lumbar spine is present. A T1 hypointense lesionin the right anterior aspect of the sacrum is unchanged in size and appearance compared with the previous study and has benign CT characteristics as seenon the 05/25/2007 study. No associated nerve root compression or involvementis identified. Spinal cord signal is normal and the disks are normal signal intensity throughout. The conus terminates at the L2. Lumbar Spine By Level: L1-L2: No spinal canal stenosis or neural foraminal narrowing. L2-L3: No spinal canal stenosis or neural foraminal narrowing. L3-L4: No spinal canal stenosis or neural foraminal narrowing. L4-L5: Small posterior disc bulge is present with no spinal canal stenosisor neural foraminal narrowing. Mild facet arthropathy. L5-S1: Small right paracentral posterior disc bulge with mild right neural foraminal narrowing and no central canal stenosis. IMPRESSION Impression: 1. Small posterior disc bulges at L4-L5 and L5-S1 causing mild left neural foraminal narrowing at L5-S1. 2. Sacral osseous lesion is unchanged in size and appearance from previous studies, is likely benign, and may represent an atypical hemangioma. Arepeat CT scan of the sacrum may help further document stability if there iscontinued clinical concern. Film and interpretation reviewed by the attending Armando Delvalle MD IMG MRI ORDERABLES documented in this encounter Visit Diagnoses Diagnosis Back pain- Primary Backache, unspecified Back pain Backache, unspecified documented in this encounter Care Teams Warehouse Team Leader Relationship Specialty Start Date End Date Larisa Kinsey MD [address] [place] [address] PCP - General 08/01/11 07/15/17 documented as of this encounter
--- OUTSIDE RECORDS SUMMARY | 2024-02-29 15:54 | XMS_ITS | Encounter Summary ---
[place] [address] Care Team Providers Care Molasses Feed Mixer Name Role Phone Larisa Kinsey MD Primary Care Provider [phone] Encounter Details Date Type Department Care Team (Late st Contact Info) Description 11/03/2011 7:36 AM EDT - 11/03/2011 11:59 PM EDT Hospital [place] [phone] Back pain Social History Tobacco Use Types Packs/Day Years [...] as of this encounter Miscellaneous Notes * Miscellaneous - Provider, Scanning - 11/11/2011 10:27 AM EDT documented in this encounter Plan of Treatment Upcoming Encounters Date Type Department Care Team (Late st Contact Info) Description 03/02/2024 8:30 AM EST Office [place] [phone] Sarah Bah, PARAM [facility] [place] [address] 03/04/2024 7:00 AM EST Appointment [place]ammography[place]A [place] [phone] Edmund Truong MD [facility] DR [place] [address] 03/07/2024 10:45 AM EST Laboratory Appointment Lab at [facility] [place] [address] [place] [address] 03/07/2024 11:30 AM EST Office Visit Hematology and Oncology at [place] [address] Bennett Turner, RN 03/07/2024 11:30 AM EST Office Visit Hematology and Oncology at [place] [address] Edmund Truong MD [facility] DR [place] [address] 03/10/2024 8:15 AM EST Laboratory Appointment Lab at [facility] [place] [address] 03/10/2024 8:30 AM EST Scheduled View Only Hematology and Oncology at [place] [address] 03/10/2024 9:00 AM EST Office Visit Hematology and Oncology at [place] [address] Omid Degroot MD [facility] [place] [address] 03/10/2024 9:00 AM EST Office Visit Hematology and Oncology at [place] [address] Bennett Turner, RN 03/25/2024 9:30 AM EST Tech Visit Vascular Lab at [address] Carlton Higgins, RVT 03/25/2024 10:15 AM EST Office [place] [phone] Tomy Rayomnd MD [facility] [place] [address] documented as of this encounter Procedures Procedure Name Priority Date/Time Associated Diagnosis Comments MRI LUMBAR SPINE WITHOUT CONTRAST Routine 11/03/2011 8:52 AM EDT Back pain documented in this encounter Results * MRI lumbar spine [...] in this encounter Visit Diagnoses Diagnosis Back pain Backache, unspecified documented in this encounter Care Teams Molasses Feed Mixer Relationship Specialty Start Date End Date Larisa Kinsey MD [address] [place] [address] PCP - General 08/01/11 07/15/17 documented as of this encounter
[2024-02-29 16:06] LABS: INR 1.2 (0.9-1.1); PTT Activated 26.7 sec (23.6-32.8); Prothrombin Time 11.6 sec (9.1-11.1)
[2024-02-29 17:06] LABS: ALT 58 U/L (14-59); AST 44 U/L (15-37); Albumin 2.7 g/dL (3.4-5.0); Alkaline Phosphatase 83 U/L (46-116); Anion Gap 10.8 mmol/L (3-11); CO2 27.2 mmol/L (21.0-32.0); CREATININE 0.7 mg/dL (0.55-1.02); Calcium 9.4 mg/dL (8.5-10.1); Chloride 99 mmol/L (98-107); Estimated GFR 97.12 (mL/min/1.73m2); Glucose 132 mg/dL (74-106); Potassium 3.6 mmol/L (3.5-5.1); Sodium 137 mmol/L (136-145); Total Protein 6.7 g/dL (6.4-8.2)
[2024-02-29 17:37] LABS: BUN 9 mg/dL (7-18); Bilirubin, Total 0.33 mg/dL (0.2-1.0)
== END 2024-02-29 16:01 ==
LOC: DI 15:41
PROVIDERS: PCP Nurse Practitioner Family; Visit Provider Internal Medicine Hematology & Oncology
DX: R05.3 Chronic cough (principal); R91.8 Other nonspecific abnormal finding of lung field
CPT/HCPCS: 36415; 80053; 71046; 85025; 85610; 85730

== ENCOUNTER 2024-03-09 21:55 | Outpatient (REF) | payer BC, SELFPAY ==
[2024-03-09 22:00] LABS: Anion Gap 12.5 mmol/L (3-11); BUN 8 mg/dL (7-18); CO2 25.5 mmol/L (21.0-32.0); CREATININE 0.7 mg/dL (0.55-1.02); Calcium 9.1 mg/dL (8.5-10.1); Chloride 100 mmol/L (98-107); Estimated GFR 97.12 (mL/min/1.73m2); Glucose 104 mg/dL (74-106); Magnesium 2.1 mg/dL (1.8-2.4); Sodium 138 mmol/L (136-145)
== END 2024-03-09 21:56 | disposition home or self-care (01) ==
LOC: NCHCN 21:55
PROVIDERS: PCP Nurse Practitioner Family; Visit Provider Student in an Organized Health Care Education/Training Program
DX: E87.6 Hypokalemia (principal)
CPT/HCPCS: 80048; 83735